=== PATIENT | female | born 2000 | race Caucasian/White ===

== ENCOUNTER 2023-03-01 16:27 | Outpatient (RCR) | payer OTHER, SELFPAY ==
[2023-03-01 16:39] LABS: Basophils Percent Auto 0.3 % (0.2-2.0); Eosinophils Absolute Auto 0.3 10^3/uL (0.0-0.7); Eosinophils Percent Auto 2.8 % (0.9-7.0); Hematocrit 39.7 % (36.0-48.0); Immature Granulocytes Abs Auto 0.03 10^3/uL (0.00-0.03); Immature Granulocytes Pct Auto 0.3 % (0.0-0.5); Lymphocytes Percent Auto 18.5 % (20.5-60.0); Mean Corpuscular HGB Conc 32.7 g/dL (29.9-35.2); Mean Corpuscular Volume 85.6 fL (81.0-99.0); Mean Platelet Volume 9.7 fL (9.5-13.5); Monocytes Absolute Auto 0.4 10^3/uL (0.3-0.8); Monocytes Percent Auto 3.7 % (1.7-12.0); Neutrophils Absolute Auto 8.1 10^3/uL (1.4-6.5); Neutrophils Percent Auto 74.4 % (43.0-75.0); Platelet Count 331 10^3/uL (150-450); Red Blood Count 4.64 10^6/uL (4.20-5.40); Red Cell Distribution Width 13.8 % (11.0-15.0); White Blood Count 10.9 10^3/uL (4.0-11.0)
[2023-03-01 16:50] LABS: Estimated Average Glucose 100 mg/dL; Glycohemoglobin A1C 5.1 % (4.5-6.2)
[2023-03-01 17:28] LABS: Free T4 0.77 ng/dL (0.76-1.46)
[2023-03-01 17:31] LABS: HCG Quantitative <1 mIU/mL
[2023-03-01 17:33] LABS: Thyroid Stimulating Hormone 0.662 uIU/mL (0.358-3.740)
[2023-03-03 07:11] LABS: Prolactin 5.4 ng/mL (4.8-23.3)
== END 2023-03-13 16:04 | disposition home or self-care (01) ==
LOC: LAB 16:27
PROVIDERS: Visit Provider Obstetrics & Gynecology
DX: N91.2 Amenorrhea, unspecified (principal); N92.6 Irregular menstruation, unspecified
CPT/HCPCS: 36415; 83036; 84146; 84439; 84443; 84702; 85025

== ENCOUNTER 2023-03-03 15:34 | Outpatient (OUT) | payer OTHER, SELFPAY ==
[2023-03-03 16:17] LABS: HCG Quantitative <1 mIU/mL
== END 2023-03-03 15:35 | disposition home or self-care (01) ==
PROVIDERS: Visit Provider Obstetrics & Gynecology
DX: N91.2 Amenorrhea, unspecified (principal); N92.6 Irregular menstruation, unspecified
CPT/HCPCS: 36415; 84702

== ENCOUNTER 2023-03-05 08:56 | Outpatient (OUT) | payer OTHER, SELFPAY ==
--- NOTE | 2023-03-05 10:04 | US_ITS ---
The [address] [address] Patient Name: KATHY MAJOR MRN: [id number] date: 2000 Sex: F Assigned Patient Location: Current Patient Location: [place] Accession/Order Number: [id number] Exam Date: 03/05/2023 10:03 Report Date: 03/05/2023 12:16 At the request of: RONA SALDANA Procedure: US pelvis w/ transvaginal EXAM: US pelvis w/ transvaginal HISTORY: AMENORRHEA COMPARISON: None. TECHNIQUE: Real-time transabdominal and transvaginal imaging of the pelvis. Findings: The uterus measures 8.9 x 4.6 x 5.1 cm and is retroverted. It demonstrates unremarkable parenchymal echotexture. No focal intrauterine mass. The endometrium is 1.3 cm thick in a relatively homogeneous. No fluid within the endometrial canal. The right and left ovaries measure 3.6 x 2.6 x 3.4 and 3.8 x 2.6 x 3.6 cm. There are follicles bilaterally. Blood flow is identified bilaterally. No adnexal mass. Small amount of free fluid within the pelvis. IMPRESSION: 1. Small amount of free fluid within the pelvis. Otherwise, unremarkable sonographic appearance of the pelvis for age. *In a premenopausal patient, the normal endometrial thickness measures up to 8 mm in the proliferative phase and 15 mm in the secretory phase of the menstrual cycle. In a symptomatic postmenopausal patient, a normal endometrial thickness measures up to 4 mm. In an asymptomatic postmenopausal patient, measurement of up to 8 mm may be normal). *In a premenopausal patient, the normal endometrial thickness measures up to 8 mm in the proliferative phase and 15 mm in the secretory phase of the menstrual cycle. In a symptomatic postmenopausal patient, a normal endometrial thickness measures up to 4 mm. In an asymptomatic postmenopausal patient, measurement of up to 8 mm may be normal). Electronically authenticated by: MEGHAN DAILY Date: 03/05/2023 12:16
== END 2023-03-05 08:57 | disposition home or self-care (01) ==
PROVIDERS: Visit Provider Obstetrics & Gynecology
DX: N91.2 Amenorrhea, unspecified (principal); N92.6 Irregular menstruation, unspecified
CPT/HCPCS: 76830; 76856

== ENCOUNTER 2023-08-12 11:10 | Emergency (ER) | payer OTHER, SELFPAY ==
[2023-08-12 11:17] VITALS: BP 124/89; PULSE 82; RESP 18; TEMP 36.7; O2SAT 99; BMI 17.0
--- NOTE | 2023-08-12 11:24 | ED.URI1 ---
HPI - URI/Sore Throat General Chief Complaint: Upper Respiratory Infection Stated Complaint: COUGH/FLU SYMPTOMS Time Seen by Provider: 08/12/23 11:18 History of Present Illness HPI Narrative: 23-year-old female presents for upper respiratory infection type symptoms. She's had cough and congestion and has been coughing up a small amount of green phlegm. She has had those for a week. No fever. a friend has influenza. She also has had gastrointestinal issues since and she seeing a gastrointestinal specialist about that issue and has had colonoscopy. She's had extensive workup. Related Data Previous Rx's Medication Instructions Recorded benzonatate 100 mg capsule 100 mg PO TID PRN cough #20 caps 08/12/23 loratadine 5 mg-pseudoephedrine ER 1 tab PO Q12H PRN nasal congestion 08/12/23 120 mg tablet,extended #20 tabs release,12hr (Claritin-D 12 Hour) ondansetron 4 mg disintegrating 4 mg PO Q6H PRN nausea and 08/12/23 tablet vomiting #20 tabs Allergies Allergy/AdvReac Type Severity Reaction Status Date / Time amoxicillin AdvReac Mild Agitated Verified 08/12/23 11:24 Review of Systems ROS Narrative A ten point review of systems is negative except as noted above. PFSH PFSH Social History Smoking status: Never smoker Exam Narrative Exam Narrative: Nurses note and vital signs reviewed and patient is not hypoxic. General: The patient appears well and in no apparent distress. Patient is resting comfortably on cart. Skin: Warm, dry, no pallor noted. There is no rash noted. Head: Normocephalic, atraumatic Eye: Normal conjunctiva, no drainage Ears, Nose, Mouth, and Throat: oral mucosa is moist. Nares patent. Mouth without vesicles. no pharyngeal erythema or exudate Cardiovascular: Regular Rate and Rhythm Respiratory: Patient is in no distress, no accessory muscle use, lungs are clear to auscultation, no wheezing, rales or rhonchi Back: non-tender GI: nontender Musculoskeletal: The patient has no evidence of calf tenderness, no pitting edema, symmetrical pulses noted bilaterally Neurological: A&O, normal speech Psychiatric: Cooperative Constitutional Vital Signs, click to edit/add: Last Vital Signs Temp 98.0 F 08/12/23 11:17 Pulse 82 08/12/23 11:17 Resp 18 08/12/23 11:17 BP 124/89 08/12/23 11:17 Pulse Ox 99 08/12/23 11:17 O2 Del Method Room Air 08/12/23 11:17 Course Vital Signs Vital signs: Vital Signs Temperature 98.0 F 08/12/23 11:17 Pulse Rate 82 08/12/23 11:17 Respiratory Rate 18 08/12/23 11:17 Blood Pressure 124/89 08/12/23 11:17 Pulse Oximetry 99 08/12/23 11:17 Oxygen Delivery Method Room Air 08/12/23 11:17 Temperature 98.0 F 08/12/23 11:17 Pulse Rate 82 08/12/23 11:17 Respiratory Rate 18 08/12/23 11:17 Blood Pressure 124/89 08/12/23 11:17 Pulse Oximetry 99 08/12/23 11:17 Oxygen Delivery Method Room Air 08/12/23 11:17 MDM - URI/Sore Throat MDM Narrative Medical decision making narrative: Her workup is negative here. My clinical impression is that she has a viral upper respiratory infection. Antibiotic not indicated and she will be treated symptomatically. Treatment diagnosis and follow-up were discussed with the patient and her mother. Differential Diagnosis Differential diagnosis: Likely upper respiratory infection, viral infection and other (Covid, influenza) Lab Data Attestation: I reviewed the patient's lab results. Labs: Lab Results 08/12/23 08/12/23 Range/Units 11:25 11:35 Urine HCG, Qual Negative (NEGATIVE) SARS-CoV-2 (PCR) Negative (NEGATIVE) Influenza Type A Ag Negative Influenza Type B Ag Negative Discharge Plan Discharge Chief Complaint: Upper Respiratory Infection Clinical Impression: Viral URI Patient Disposition: Home, Self-Care Time of Disposition Decision: 12:26 Condition: Good Mode of Transportation: Private Vehicle Prescriptions / Home Meds: New benzonatate 100 mg capsule 100 mg PO TID PRN (Reason: cough) Qty: 20 0RF Claritin-D 12 Hour 5-120 mg tablet extended release 12 hr 1 tab PO Q12H PRN (Reason: nasal congestion) Qty: 20 0RF ondansetron 4 mg tablet,disintegrating 4 mg PO Q6H PRN (Reason: nausea and vomiting) Qty: 20 0RF Instructions: Upper Respiratory Infection (ED) Stand Alone Forms: Portal Instructions Referrals: Geena CERVANTES [Primary Care Provider] - 1 week
[2023-08-12 11:57] LABS: HCG Qualitative Urine* NEGATIVE (NEGATIVE)
[2023-08-12 12:19] LABS: Influenza Virus A Antigen Negative; Influenza Virus B Antigen Negative; Internal Control Within Normal Limits; SARS-CoV-2 Ag NEGATIVE (NEGATIVE)
[2023-08-13 16:17] LABS: SARS-CoV-2 NAA INCONCLUSIVE (NOT DETECTE)
== END 2023-08-12 12:36 | disposition home or self-care (01) ==
PROVIDERS: Emergency Provider Emergency Medicine; PCP Family Medicine
DX: J06.9 Acute upper respiratory infection, unspecified (principal)
CPT/HCPCS: 84703; 87635; 87804; 87811; 99283

== ENCOUNTER 2023-08-21 10:34 | Emergency (ER) | payer OTHER, SELFPAY ==
[2023-08-21 10:37] VITALS: BP 110/65; PULSE 63; RESP 14; TEMP 36.6; O2SAT 100; BMI 17.0
--- NOTE | 2023-08-21 10:59 | ED.GENADUL1 ---
HPI - General Adult General Chief complaint: Upper Respiratory Infection Stated complaint: CONGESTION Time Seen by Provider: 08/21/23 10:59 Source: patient Mode of arrival: walk-in History of Present Illness HPI narrative: Patient is a 23-year-old female who is presenting to the ER today with chief complaint of cough, congestion, runny nose, sore throat that has been ongoing for the past 3 weeks. Patient is using Tessalon Perles, she states that Mucinex makes her feel funny. Patient has not seen a PCP for this, patient was in the ER on August 12. Patient did not go to work today. Patient's boyfriend is at bedside. Patient is a smoker. No recent traveling. No abdominal pain, nausea or vomiting. No diarrhea. No other acute complaints. Patient has no rash. No headache. No neck pain. Minimal sinus pressure. No chest pain or shortness of breath. Patient has been using her mom's albuterol inhaler intermittently to help with wheezing and congestion. Patient did not go to work today. No recent traveling. No bowel or bladder changes, no other acute complaints. Patient's boyfriend had a picture of her greenish sputum. All systems are negative except as noted/marked. All systems reviewed and otherwise negative. Nurses note and vital signs reviewed and patient is not hypoxic. General: The patient appears well and in no apparent distress. Patient is resting comfortably on cart. Patient is not toxic, lethargic, or listless Skin: Warm, dry, no pallor noted. There is no rash noted. No petechiae, purpura. Head: Normocephalic, atraumatic; minimal tenderness to palpation to bilateral frontal and maxillary sinus. Eye: Normal conjunctiva, no drainage, EOMI. PERRL Ears, Nose, Mouth, and Throat: oral mucosa is moist. Bilateral TM shows no erythema, perforation or bulging. Clear drainage noted to the posterior pharynx, cobblestoning noted. Nares patent. Mouth without vesicles. Cardiovascular: Regular Rate and Rhythm, no murmur, gallop, rub Respiratory: Patient is in no distress, no accessory muscle use, lungs are clear to auscultation, no wheezing, rales or rhonchi Back: non-tender, no CVA tenderness bilaterally to percussion. No CT LS midline pain GI: no tenderness to palpation, Musculoskeletal: Patient has full range of motion of all of the extremities, no motor, sensory, or focal neurological deficits Neurological: A&O x4, normal speech Psychiatric: Cooperative Related Data Previous Rx's Medication Instructions Recorded benzonatate 100 mg capsule 100 mg PO TID PRN cough #20 caps 08/12/23 ondansetron 4 mg disintegrating 4 mg PO Q6H PRN nausea and 08/12/23 tablet vomiting #20 tabs albuterol sulfate 2.5 mg/3 mL 1.25 mg (1.5 mL) inhalation Q4H 08/21/23 (0.083 %) solution for nebulization PRN shortness of breath or wheezing #90 mL doxycycline hyclate 100 mg tablet 100 mg PO BID 10 days #20 tabs 08/21/23 Allergies Allergy/AdvReac Type Severity Reaction Status Date / Time amoxicillin AdvReac Mild Agitated Verified 08/12/23 11:24 PFSH PFSH Social History Smoking status: Never smoker Exam Constitutional Vital Signs, click to edit/add: Last Vital Signs Temp 97.8 F 08/21/23 10:37 Pulse 63 08/21/23 10:37 Resp 14 08/21/23 10:37 BP 110/65 08/21/23 10:37 Pulse Ox 100 08/21/23 10:37 O2 Del Method Room Air 08/21/23 10:37 Course Vital Signs Vital signs: Vital Signs Temperature 97.8 F 08/21/23 10:37 Pulse Rate 63 08/21/23 10:37 Respiratory Rate 14 08/21/23 10:37 Blood Pressure 110/65 08/21/23 10:37 Pulse Oximetry 100 08/21/23 10:37 Oxygen Delivery Method Room Air 08/21/23 10:37 Temperature 97.8 F 08/21/23 10:37 Pulse Rate 63 08/21/23 10:37 Respiratory Rate 14 08/21/23 10:37 Blood Pressure 110/65 08/21/23 10:37 Pulse Oximetry 100 08/21/23 10:37 Oxygen Delivery Method Room Air 08/21/23 10:37 Medical Decision Making MDM Narrative Medical decision making narrative: Patient has had upper respiratory infection/bronchitis for the past 3 weeks. Patient is a smoker. Patient has not been doing any antihistamines or Flonase. Patient will start using Claritin or Zyrtec. Patient will start using antihistamines and Flonase. Patient will follow-up with PCP and establish PCP as well. Education done at bedside in treating symptoms and on discharge paperwork. Work note given. Discharge Plan Discharge Chief Complaint: Upper Respiratory Infection Clinical Impression: Bronchitis, Upper respiratory infection, Tobacco abuse Patient Disposition: Home, Self-Care Time of Disposition Decision: 11:12 Condition: Fair Prescriptions / Home Meds: New albuterol sulfate 2.5 mg /3 mL (0.083 %) solution for nebulization 1.25 mg inhalation Q4H PRN (Reason: shortness of breath or wheezing) Qty: 90 0RF doxycycline hyclate 100 mg tablet 100 mg PO BID 10 Days Qty: 20 0RF No Action benzonatate 100 mg capsule 100 mg PO TID PRN (Reason: cough) Qty: 20 0RF ondansetron 4 mg tablet,disintegrating 4 mg PO Q6H PRN (Reason: nausea and vomiting) Qty: 20 0RF Instructions: How to Stop Smoking (ED), How to Use a Metered-Dose Inhaler (DC), Acute Bronchitis (ED), How Your Lungs Work (ED) Additional Instructions: Use Claritin or Zyrtec daily Use albuterol every 4 hours while awake to help with cough, wheezing, and congestion Use Mucinex as well. Start using Flonase daily Antibiotic is started secondary to symptoms going on for 3 weeks Follow-up and establish PCP for further evaluation so that you are seen in the same physician every time you have illness Work note given Stand Alone Forms: Work/School Release, Portal Instructions Referrals: Geena CERVANTES [Primary Care Provider] - 1 week
== END 2023-08-21 11:31 | disposition home or self-care (01) ==
PROVIDERS: Emergency Provider Emergency Medicine; PCP Family Medicine
DX: J40 Bronchitis, not specified as acute or chronic (principal); J06.9 Acute upper respiratory infection, unspecified; F17.210 Nicotine dependence, cigarettes, uncomplicated
CPT/HCPCS: 99283

== ENCOUNTER 2024-04-05 16:49 | Emergency (ER) | payer OTHER, SELFPAY ==
[2024-04-05 16:51] VITALS: BP 127/84; PULSE 96; TEMP 36.9; O2SAT 100; BMI 18.9
--- NOTE | 2024-04-05 16:56 | CT_ITS ---
The [address] [address] Patient Name: KATHY MAJOR MRN: [id number] date: 2000 Sex: F Assigned Patient Location: ER Current Patient Location: ER Accession/Order Number: [id number] Exam Date: 04/05/2024 17:25 Report Date: 04/05/2024 18:12 At the request of: MCKAYLA SANDHU Procedure: CT head/brain wo con EXAM: CT head/brain wo con, CT cervical spine wo con HISTORY: headache COMPARISON: None. TECHNIQUE: HEAD FINDINGS: The brain parenchyma density is unremarkable. There is no acute intracranial hemorrhage, extra axial fluid collection, midline shift, or mass effect. There is no evidence to suggest acute infarction. The ventricles, sulci, and cisterns are normal in size and configuration, without evidence of hydrocephalus or herniation. The partially visualized paranasal sinuses and mastoid air cells are well pneumatized and clear. There are no suspicious osseous lytic or sclerotic lesions. There are no acute fractures. The extracranial soft tissues are unremarkable. Cervical spine FINDINGS: No fracture or dislocation is shown. The prevertebral soft tissue space appears normal. Visualized neck shows no adenopathy. Visualized lung apices are clear. CT/CT head/brain wo con IMPRESSION: No acute intracranial process. No acute osseous abnormality of the cervical spine. Electronically authenticated by: TIERA BURKETT Date: 04/05/2024 18:12
--- NOTE | 2024-04-05 16:56 | CT_ITS ---
The [place] [id number] Patient Name: KATHY MAJOR MRN: [id number] date: 2000 Sex: F Assigned Patient Location: ER Current Patient Location: ER Accession/Order Number: [id number] Exam Date: 04/05/2024 17:25 Report Date: 04/05/2024 18:12 At the request of: MCKAYLA SANDHU Procedure: CT cervical spine wo con EXAM: CT head/brain wo con, CT cervical spine wo con HISTORY: headache COMPARISON: None. TECHNIQUE: HEAD FINDINGS: The brain parenchyma density is unremarkable. There is no acute intracranial hemorrhage, extra axial fluid collection, midline shift, or mass effect. There is no evidence to suggest acute infarction. The ventricles, sulci, and cisterns are normal in size and configuration, without evidence of hydrocephalus or herniation. The partially visualized paranasal sinuses and mastoid air cells are well pneumatized and clear. There are no suspicious osseous lytic or sclerotic lesions. There are no acute fractures. The extracranial soft tissues are unremarkable. Cervical spine FINDINGS: No fracture or dislocation is shown. The prevertebral soft tissue space appears normal. Visualized neck shows no adenopathy. Visualized lung apices are clear. CT/CT cervical spine wo con IMPRESSION: No acute intracranial process. No acute osseous abnormality of the cervical spine. Electronically authenticated by: TIERA BURKETT Date: 04/05/2024 18:12
--- OUTSIDE RECORDS SUMMARY | 2024-04-05 16:58 | XMS_ITS | CCD ---
Author Organization [facility] Care Team Providers Care Immigration Paralegal Name Role Phone SHANA, DR REA Consulting Unavailable KALOTTIE, DR Geena FIELDS Primary Care Unavailable SHANA, DR REA Attending Unavailable SHANA, DR REA Admitting Unavailable SHANA, DR REA Consulting Unavailable REQUEST, DR NORIEGA LISTED Primary Care Unavaila ble SHANA, DR REA Attending Unavailable SHANA, DR REA Admitting Unavailable SHANA, DR REA Consulting Unavailable REQUEST, DR LEANN LISTED Primary Care Unavaila ble SHANA, DR REA Attending Unavailable SHANA, DR REA Admitting Unavailable SHANA, DR REA Consulting Unavailable REQUEST, DR NORIEGA LISTED Primary Care Unavaila ble SHANA, DR REA Attending Unavailable SHANA, DR REA Admitting Unavailable SHANA, DR REA Consulting Unavailable KAFTAN, DR Geena FIELDS Referring Unavailable REQUEST, DR NORIEGA LISTED Primary Care Unavaila ble SHANA, DR REA Attending Unavailable SHANA, DR REA Admitting Unavailable ZIEBER, DR MARTIN Artis Consulting Unavailable SHANA, DR REA Consulting Unavailable REQUEST, DR NORIEGA LISTED Primary Care Unavaila ble SHANA, DR REA Attending Unavailable SHANA, DR REA Admitting Unavailable WEST, DR YENNI Calderon Consulting Unavailable REQUEST, DR NORIEGA LISTED Primary Care Unavaila ble SHANA, DR REA Attending Unavailable SHANA, DR REA Admitting Unavailable SHANA, DR REA Consulting Unavailable SHANA, DR REA Consulting Unavailable KAFTAN, DR Geena FIELDS Primary Care Unavailable SHANA, DR REA Attending Unavailable SHANA, DR REA Admitting Unavailable ZIEBER, DR MARTIN Artis Consulting Unavailable SHANA, DR REA Consulting Unavailable KAFTAN, DR Geena FIELDS Primary Care Unavailable SHANA, DR REA Attending Unavailable SHANA, DR REA Admitting Unavailable KARASIK, DR PIZARRO Consulting Unavailable SHANA, DR REA Attending Unavailable SHANA, DR REA Admitting Unavailable REQUEST, DR NONE LISTED Primary Care Unavaila ble SHANA, DR REA Consulting Unavailable MORGOS, SUZY Consulting Unavailable SHANA, DR REA Procedure Practitioner Unavailab le SHANA, DR REA Consulting Unavailable REQUEST, DR NONE LISTED Primary Care Unavaila ble SHANA, DR REA Attending Unavailable SHANA, DR REA Admitting Unavailable Gudimella, Kayy Attending Unavailable DO Divina Araya Primary Care Provider Gerson, INCIDENT ENGINEER-BC Vivian Ayala Emergency Provider [phone] Asacher, Imad Unavailable DO Divina Araya Primary Care Provider [phone] MD Jordi Seals Attending Provider [phone] DO Divina Araya Primary Care Provider [phone] MD Jordi Seals Attending Provider [phone] DO Divina Araya Primary Care Provider MD Jordi Seals Attending Provider [phone] VANESSA Roberson Emergency Provider DO Charlie Wells Emergency Provider Vivian Nieto Admitting Unavailable Vivian Nieto Attending Unavailable Divina Araya Primary Care Unavailable Divina Araya Primary Care Unavailable Charlie Wells Admitting Unavailable Charlie Wells Attending Unavailable Divina Araya Primary Care Unavailable Ashley Roberson Admitting Unavailable Ashley Roberson Attending Unavailable Asaad, Imad Admitting Unavailable Lavellad, Imad Attending Unavailable Divina Araya Primary Care Unavailable Asaad, Imad Admitting Unavailable Divina Araya Primary Care Unavailable Asaad, Imad Attending Unavailable Asaad, Imad Attending Unavailable Asaad, Imad Admitting Unavailable Divina Araya Primary Care Unavailable Asaad, Imad Admitting Unavailable Asaad, Imad Attending Unavailable Divina Araya Primary Care Unavailable Divina Araya Primary Care Unavailable Randal Celeste Admitting Unavailable Randal Celeste Attending Unavailable CITLALI PATRICIA Attending Unavailable ZACHARY ARAYA Attending Unavailable Allergies Allergy Classification Reported Allergen(s) Allergy Type Date of Onset Reaction(s) Facility (1 source) Amoxicillin Drug Allergy 4 [facility] Repository (3 sources) Milk Drug allergy (disorder) 4 Unknown [facility] Repository (3 sources) Amoxicillin; Translations: [amoxicillin] Drug Allergy Weal (disorder) [facility] Care (1 source) Amoxicillin Drug Allergy 4 [facility] Repository (1 source) Milk Drug allergy (disorder) 3 [facility] Repository Medications Current Medications Medication Drug Class(es) Dates Sig (Normalized) Sig (Original) albuterol 0.83 mg/ml inhalation solution (1 source) beta2-Adrenergic Agonist Start: 10-13-2023 Albuterol Sulfate Active MG October 13, 2023 12:00am cyclobenzaprine hydrochloride 10 mg oral tablet (1 source) Muscle Relaxant Start: 10-13-2023 take 10 mg by mouth three times daily Cyclobenzaprine Active 10 MG PO Three times daily October 13, 2023 12:00am diclofenac sodium 0.01 mg/mg topical gel (1 source) Nonsteroidal Anti-inflammatory Drug Start: 10-13-2023 Diclofenac Sodium (Voltaren Arthritis Pain) 1 % gel Active 2 GM TOPICAL Four times daily October 13, 2023 12:00am apply to single elbow, wrist or hand; for hand includes palm/fingers/back of hand Timnath (No Known Home Meds) (4 sources) Start: 01-18-2023 Timnath (No Known Home Meds) Active January 17, 2023 11:00pm Start: 01-18-2023 Timnath (No Kn own Home Meds) Active January 18, 2023 12:00am ondansetron 4 mg disintegrating oral tablet (9 sources) Serotonin-3 Receptor Antagonist Start: 09-28-2023 take 4 mg by mouth every eight hours Ondansetron Active 4 MG PO Q8H 9 3 September 28, 2023 12:00am Start: 12-29-2022 End: 01-18-2023 take 4 mg by mouth every eight hours Ondansetron Discontinued 4 MG PO Q8H December 28, 2022 11:00pm January 18, 2023 8:58am polyethylene glycol 3350 [id number] mg / potassium chloride 2970 mg / sodium bicarbonate 6740 mg / sodium chloride 5860 mg / sodium sulfate 16606 mg powder for oral solution (2 sources) Osmotic Laxative Start: 04-25-2023 take 236 g by mouth once Golytely 236 GM as directed Orally once for 1 days Apr, Active Completed/Discontinued Medications Medication Drug Class(es) Dates Sig (Normalized) Sig (Original) citalopram 10 mg oral tablet (7 sources) Serotonin Reuptake Inhibitor Start: 12-29-2022 End: 01-18-2023 take 10 mg by mouth once daily Citalopram Discontinued 10 MG PO Daily December 28, 2022 11:00pm January 18, 2023 8:58am dicyclomine hydrochloride 20 mg oral tablet (7 sources) Anticholinergic Start: 12-29-2022 End: 01-18-2023 take 20 mg by mouth three times daily Dicyclomine Discontinued 20 MG PO Three times daily December 28, 2022 11:00pm January 18, 2023 8:58am doxycycline hyclate 100 mg oral tablet (2 sources) Tetracycline-class Drug Start: 09-28-2023 End: 10-13-2023 take 100 mg by mouth twice daily Doxycycline Hyclate Discontinued 100 MG PO Twice daily 28 06September 28, 2023 12:00am October 13, 2023 1:14pm Norethindrone-E.Est radiol-Iron (7 sources) Estrogen Start: 02-09-2018 End: 10-12-2020 Norethindrone-E.E stradiol-Iron (09/28 (28)) 1 mg-20 mcg (21)/75 mg (7) tablet Discontinued 1 TAB PO Daily February 08, 2018 11:00pm October 12, 2020 5:28pm Start: 02-09-2018 End: 10-12-2020 Norethindrone-E.Estradiol-Ir on (09/28 (28)) 1 mg-20 mcg (21)/75 mg (7) tablet Discontinued 1 TAB PO Daily February 09, 2018 12:00am October 12, 2020 6:28pm ibuprofen 400 mg oral tablet (7 sources) Nonsteroidal Anti-inflammatory Drug Start: 02-09-2018 End: 10-12-2020 take 400 mg by mouth three times daily Ibuprofen Discontinued 400 MG PO Three times daily February 08, 2018 11:00pm October 12, 2020 5:28pm metroNIDAZOLE 500 mg oral tablet (7 sources) Nitroimidazole Antimicrobial Start: 07-29-2020 End: 10-12-2020 take 500 mg by mouth three times daily Metronidazole Discontinued 500 MG PO Three times daily July 29, 2020 12:00am October 12, 2020 5:28pm norethindrone 0.35 mg oral tablet (8 sources) Start: 12-29-2022 End: 01-18-2023 take 1 tablet by mouth once daily Norethindrone (Contraceptive) (Jencycla) 0.35 mg tablet Discontinued 0.35 MG PO Daily December 28, 2022 11:00pm January 18, 2023 8:58am Start: 11-06-2022 Jencycla 0.35 mg oral tablet Refills(s) 0 Start Date: 11/06/22 Status: Ordered predniSONE 20 mg oral tablet (2 sources) Start: 09-28-2023 End: 10-13-2023 take 40 mg by mouth once daily Prednisone Discontinued 40 MG PO Daily 02 09September 28, 2023 12:00am October 13, 2023 1:14pm Prenat.Vits,Maximo,Min-Iro n-Folic ( Vitamin) Tablet (7 sources) Start: 01-29-2021 End: 12-29-2022 take 1 tablet by mouth once daily Prenat.Vits,Maximo,Min-Iron -Folic ( Vitamin) Tablet Discontinued 1 TAB PO Daily January 28, 2021 11:00pm December 29, 2022 11:53am Start: 01-29-2021 End: 12-29-2022 take 1 tablet by mouth once daily Prenat.Vits,Maximo,Kxl-Cogn-Pmrnb ( Vitamin) Tablet Discontinued 1 TAB PO Daily January 29, 2021 12:00am December 29, 2022 12:53pm Problems Active Problems Problem Classification Problem Date Documented Da te Episodic/Chronic Abdominal pain (17 sources) Abdominal pain; Translations: [Unspecified abdominal pain] Onset: 01-18-2023 12-29-2022 Episodic Esophageal disorders (1 source) Gastro-esophageal reflux disease without esophagitis; Translations: [GERD WITHOUT ESOPHAGITIS] Onset: 08-06-2022 Chronic Fluid and electrolyte disorders (2 sources) Dehydration; Translations: [Dehydration] 09-28-2023 Episodic Hemorrhage during ; abruptio placenta; placenta previa (7 sources) Threatened miscarriage; Translations: [Threatened ] 10-12-2020 Episodic Menstrual disorders (11 sources) Irregular menstruation, unspecified; Translations: [Dysmenorrhea] Onset: 01-26-2022 Chronic Nonspecific chest pain (8 sources) Atypical chest pain; Translations: [Other chest pain] 01-02-2022 Episodic OB-related trauma to perineum and vulva (1 source) Second degree perineal laceration during delivery; Translations: [SECOND DEG PERINEAL LAC DUR DELIV] Onset: 08-06-2022 Episodic Other acquired deformities (1 source) Scoliosis, unspecified; Translations: [SCOLIOSIS UNSPECIFIED] Onset: 08-06-2022 Chronic Other complications of ; puerperium affecting management of mother (1 source) Streptococcus B carrier state complicating childbirth; Translations: [STREP B SOTELO STATE COMP CHILDBIRTH] Onset: 08-06-2022 Episodic Other complications of ; puerperium affecting management of mother (1 source) Diseases of the digestive system complicating childbirth; Translations: [DZ DIGESTIVE SYSTEM COMP CHILDBIRTH] Onset: 08-06-2022 Episodic Other complications of (4 sources) Maternal care for other known or suspected poor growth, third trimester, not applicable or unspecified; Translations: [MAT CARE OTH AZ FTL GRTH 3RD TM UNS] Onset: 06-23-2022 Episodic Other complications of (4 sources) Other specified related conditions, third trimester; Translations: [OTH SPEC PREG RELATED COND 3RD TRI] Onset: 07-04-2022 Episodic Other female genital disorders (6 sources) Abnormal vaginal bleeding; Translations: [Abnormal uterine and vaginal bleeding, unspecified] 01-18-2023 Chronic Other gastrointestinal disorders (2 sources) Irritable bowel syndrome with diarrhea; Translations: [Irritable bowel syndrome with diarrhea] Chronic Other gastrointestinal disorders (9 sources) Diarrhea; Translations: [Diarrhea, unspecified] 12-29-2022 Episodic Other gastrointestinal disorders (2 sources) Altered bowel function; Translations: [Change in bowel habit] Episodic Other gastrointestinal disorders (2 sources) Diarrhea, unspecified Episodic Other lower respiratory disease (1 source) Shortness of breath; Translations: [Shortness of breath] Onset: 10-13-2023 Episodic Other nutritional; endocrine; and metabolic disorders (3 sources) Abnormal weight loss; Translations: [Abnormal weight loss] Onset: 07-27-2023 Episodic Other nutritional; endocrine; and metabolic disorders (1 source) Weight loss; Translations: [Abnormal weight loss] Episodic Other and delivery including normal (10 sources) Single live ; Translations: [Encounter for supervision of other normal , third trimester] Onset: 12-27-2021 Episodic Other screening for suspected conditions (not mental disorders or infectious disease) (14 sources) Encounter for screening for diabetes mellitus; Translations: [Encounter for other specified screening] Onset: 01-26-2022 Episodic Pneumonia (except that caused by tuberculosis or sexually transmitted disease) (2 sources) Pneumonia; Translations: [Pneumonia, unspecified organism] 09-28-2023 Episodic Residual codes; unclassified (1 source) 38 weeks gestation of ; Translations: [38 WEEKS GESTATION OF ] Onset: 08-06-2022 Episodic Residual codes; unclassified (1 source) 35 weeks gestation of ; Translations: [35 WEEKS GESTATION OF ] Onset: 07-08-2022 Episodic Residual codes; unclassified (1 source) 33 weeks gestation of ; Translations: [33 WEEKS GESTATION OF ] Onset: 06-23-2022 Episodic Residual codes; unclassified (7 sources) History of headache; Translations: [Personal history of other specified conditions] 07-29-2020 Episodic Substance-related disorders (2 sources) Drug use complicating childbirth; Translations: [Cannabis use, unspecified, uncomplicated] Onset: 08-06-2022 Episodic Syncope (14 sources) Vasovagal syncope; Translations: [Syncope and collapse] 02-08-2022 Episodic Unclassified (1 source) CONTACT W/AND (SUSP) EXPOS COVID-19; Translations: [CONTACT W/AND (SUSP) EXPOS COVID-19] Onset: 08-06-2022 Unclassified (1 source) Diarrhea, unspecified; Translations: [Diarrhea, unspecified] Onset: 12-29-2022 Past or Other Problems Problem Classification Problem Date Documented Date Episodic/Chronic Immunizations and screening for infectious disease (1 source) Contact with and (suspected) exposure to infections with a predominantly sexual mode of transmission; Translations: [CONTCT W EXPOS INFECT SEXUAL TRNSMS] Onset: 01-31-2022 Episodic Other complications of (4 sources) Other specified related conditions, second trimester; Translations: [OTH SPEC PREG RELATED COND 2ND TRI] Onset: 04-24-2022 Episodic Other female genital disorders (1 source) Other specified noninflammatory disorders of vagina; Translations: [Other specified noninflammatory disorders of vagina] Onset: 01-18-2023 Episodic Residual codes; unclassified (1 source) 25 weeks gestation of ; Translations: [25 WEEKS GESTATION OF ] Onset: 04-26-2022 Episodic Results Test Name Value Interpretation Reference Range Facility B-Type Natriuretic Peptideon 10-13-2023 Natriuretic peptide B (Bld) [Mass/Vol] 30.0 pg/mL Normal 5-100 [facility] Comment on above: Result Comment: PERF ORMED BY: [place] [address] PATHOLOGIST [employer]ED [employer] EMBOSSING PRESS OPERATOR KIERSTEN BYNUM M.D. Performed By: #### H S TROP, BNP, CK #### [facility] [address] Basic Metabolic Panelon Anion gap [Moles/Vol] 7.1 mmol/L Normal 6.0-15.0 [facility] Comment on above: Performed By: #### C BC, BMP, DDIMER, PT, PTT ####[facility] Calcium [Mass/Vol] 9.0 mg/dL Normal 8.6-10.3 [facility] Comment on above: Performed By: #### C BC, BMP, DDIMER, PT, PTT ####[place] [id number] Chloride [Moles/Vol] 107 mmol/L Normal 98-107 [facility] Comment on above: Performed By: #### C BC, BMP, DDIMER, PT, PTT ####[facility] [place] [address] [facility] CO2 [Moles/Vol] 28.6 mmol/L Normal 21.0-31.0 [facility] Comment on above: Performed By: #### C BC, BMP, DDIMER, PT, PTT ####[facility] [place] [address] [facility] Creatinine [Mass/Vol] 0.51 mg/dL Low 0.60-1.20 [facility] Comment on above: Performed By: #### C BC, BMP, DDIMER, PT, PTT ####[place] [address] [place] [address] [place] Creatinine Clr Calc Pharmacy 118.45 [facility] Comment on above: Result Comment: PERF ORMED BY: [facility] [address] [place] [address] PATHOLOGIST [employer] EMBOSSING PRESS OPERATOR KIERSTEN BYNUM M.D. Performed By: #### C BC, BMP, DDIMER, PT, PTT ####[place] [address] [place] [phone] [place] GFR/1.73 sq M.predicted MDRD (S/P/Bld) [Vol rate/Area] mL/min/{1.73_m2} [facility] Comment on above: Performed By: #### C BC, BMP, DDIMER, PT, PTT ####[place] [address] [place] [phone] [facility] Glucose [Mass/Vol] 80 mg/dL Normal 70-100 [facility] Comment on above: Result Comment: [place] Glucose Reference Range is dependent on time and content of last meal. Glucose of more than 200 mg/dL in a nonstressed, ambulatory subject supports the diagnosis of Diabetes Mellitus. ADA recommended reference range Performed By: #### C BC, BMP, DDIMER, PT, PTT ####[facility] [place] [address] [place] Potassium [Moles/Vol] 3.7 mmol/L Normal 3.5-5.1 [facility] Comment on above: Performed By: #### C BC, BMP, DDIMER, PT, PTT ####[facility] [address] [place] [address] [facility] Sodium [Moles/Vol] 139 mmol/L Normal 136-145 [facility] Comment on above: Performed By: #### C BC, BMP, DDIMER, PT, PTT ####[facility] [address] [place] [address] [facility] Urea nitrogen [Mass/Vol] 10 mg/dL Normal 7-25 [facility] Comment on above: Performed By: #### C BC, BMP, DDIMER, PT, PTT ####[facility] [address] [place] [address] [facility] Basophils Auto (Bld) [#/Vol] Ordered By: Charlie Wells on 10-13-2023 Basophils (Bld) [#/Vol] 0.0 10*3/uL 0.0-0.2 [facility] Basophils/100 WBC Auto (Bld) Ordered By: Charlie Wells on 10-13-2023 Basophils/100 WBC (Bld) 0.6 % . F [facility] Calcium [Mass/volume] in Ser um or PlasmaOrdered By: Charlie Wells on 10-13-2023 Calcium [Mass/Vol] 9.0 mg/dL 8.6-10.3 [facility] Carbon dioxide, total [Moles /volume] in Serum or PlasmaOrdered By: Charlie Wells on 10-13-2023 CO2 [Moles/Vol] 28.6 mmol/L 21.0-31.0 [facility] Chloride [Moles/volume] in S isabel or PlasmaOrdered By: Charlie Wells on 10-13-2023 Chloride [Moles/Vol] 107 mmol/L 98-107 [facility] Choriogonadotropin.beta subu nit [Units/volume] in Serum or PlasmaOrdered By: Charlie Wells on 10-13-2023 HCG.beta subunit Qn Negative [facility] Complete Blood Count Auto Di ffon 10-13-2023 Basophils (Bld) [#/Vol] 0.0 10*3/uL Normal 0.0-0.2 [facility] Comment on above: Result Comment: PERF ORMED BY: [facility] [address] [place] [address] PATHOLOGIST [employer] EMBOSSING PRESS OPERATOR KIERSTEN BYNUM M.D. Performed By: #### C BC, BMP, DDIMER, PT, PTT ####[place] [address] Basophils/100 WBC (Bld) 0.6 % Normal . [facility] Comment on above: Performed By: #### C BC, BMP, DDIMER, PT, PTT ####[address] Eosinophils (Bld) [#/Vol] 0.3 10*3/uL Normal 0.0-0.45 [facility] Comment on above: Performed By: #### C BC, BMP, DDIMER, PT, PTT ####[address] Eosinophils/100 WBC (Bld) 3.8 % Normal . [facility] Comment on above: Performed By: #### C BC, BMP, DDIMER, PT, PTT ####[address] Erythrocyte distribution width (RBC) [Ratio] 13.9 % Normal 11.9-15.3 [facility] Comment on above: Performed By: #### C BC, BMP, DDIMER, PT, PTT ####[address] Hematocrit (Bld) [Volume fraction] 34.6 % Normal 34.0-46.4 [facility] Comment on above: Performed By: #### C BC, BMP, DDIMER, PT, PTT ####[address] Hemoglobin (Bld) [Mass/Vol] 11.8 g/dL Normal 11.8-15.4 [facility] Comment on above: Performed By: #### C BC, BMP, DDIMER, PT, PTT ####[address] Lymphocytes (Bld) [#/Vol] 1.5 10*3/uL Normal 1.00-4.8 [facility] Comment on above: Performed By: #### C BC, BMP, DDIMER, PT, PTT ####[address] Lymphocytes/100 WBC (Bld) 21.5 % Normal . [facility] Comment on above: Performed By: #### C BC, BMP, DDIMER, PT, PTT ####[address] MCH (RBC) [Entitic mass] 29.3 pg Normal 24.7-34.3 [facility] Comment on above: Performed By: #### C BC, BMP, DDIMER, PT, PTT ####[address] MCV (RBC) [Entitic vol] 86.4 fL Normal 80-100 [facility] Comment on above: Performed By: #### C BC, BMP, DDIMER, PT, PTT ####[address] Mean Corpuscular HGB Conc 33.9 g/dL Normal 32.0-35.0 [facility] Comment on above: Performed By: #### C BC, BMP, DDIMER, PT, PTT ####[address] Monocytes (Bld) [#/Vol] 0.3 10*3/uL Normal 0.0-0.8 [facility] Comment on above: Performed By: #### C BC, BMP, DDIMER, PT, PTT ####[place] [id number] [facility] Monocytes/100 WBC (Bld) 16.72 % Normal 0.00-20.00 [facility] Comment on above: Performed By: #### C BC, BMP, DDIMER, PT, PTT ####[address] Monocytes/100 WBC (Bld) 4.7 % Normal . [facility] Comment on above: Performed By: #### C BC, BMP, DDIMER, PT, PTT ####[address] Neutrophils (Bld) [#/Vol] 4.8 10*3/uL Normal 1.8-7.7 [facility] Comment on above: Performed By: #### C BC, BMP, DDIMER, PT, PTT ####[place] [id number] [facility] Neutrophils/100 WBC (Bld) 69.4 % Normal . [facility] Comment on above: Performed By: #### C BC, BMP, DDIMER, PT, PTT ####[address] NRBC% 0.1 /100{WBC} Normal 0-0.5 [facility] Comment on above: Performed By: #### C BC, BMP, DDIMER, PT, PTT ####[place] [id number] [facility] Platelet mean volume (Bld) [Entitic vol] 7.7 fL Normal 6.3-10.7 [facility] Comment on above: Performed By: #### C BC, BMP, DDIMER, PT, PTT ####[place] [id number] [facility] Platelets (Bld) [#/Vol] 257 10*3/uL Normal 150-450 [facility] Comment on above: Performed By: #### C BC, BMP, DDIMER, PT, PTT ####[place] [id number] [facility] RBC (Bld) [#/Vol] 4.01 10*6/uL Normal 3.60-5.00 [facility] Comment on above: Performed By: #### C BC, BMP, DDIMER, PT, PTT ####[address] [address] [facility] WBC (Bld) [#/Vol] 6.9 10*3/uL Normal 3.8-11.6 [facility] Comment on above: Performed By: #### C BC, BMP, DDIMER, PT, PTT ####[facility] [address] [place] [phone] [facility] Creatine Kinaseon 10-13-2023 CK [Catalytic activity/Vol] 42 U/L Normal 30-223 [facility] Comment on above: Performed By: #### H S TROP, BNP, CK #### [facility] [address] Creatine kinase [Enzymatic a ctivity/volume] in Serum or PlasmaOrdered By: Charlie Wells on 10-13-2023 CK [Catalytic activity/Vol] 42 U/L 30-223 [facility] Creatinine [Mass/volume] in Serum or PlasmaOrdered By: Charlie Wells on 10-13-2023 Creatinine [Mass/Vol] 0.51 mg/dL 0.60-1.20 [facility] D-Dimer High Sensitivityon 0 10-13-2023 D-Dimer High Sensitivity < 200 Normal 0-243 [facility] Comment on above: Result Comment: The reference range for D-dimer is <243 ng/mL D-dimer units. D-dimer results must be used in conjunction with a clinical pretest probability (PTP) assessment model for deep vein thrombosis (DVT) and pulmonary embolism (PE). Results <230 ng/mL d-dimer units can be used as a negative predictor in patients with low or moderate probability for DVT/PE. Results above the exclusion threshold of 230 ng/ml D-dimer units for DVT/PE may indicate the need for further diagnostic testing. D-Dimer can be increased in hospitalized patients due to co-morbid conditions. A hematocrit value greater than 55% may lead to inaccurate results in coagulation testing. Patients having hematocrit values >55% require a special collection tube for coagulation studies. Please contact the laboratory at [phone] for redraw instructions. PERFORMED BY: [facility] [address] [place] [address] PATHOLOGIST [employer] EMBOSSING PRESS OPERATOR KIERSTEN BYNUM M.D. Performed By: #### C BC, BMP, DDIMER, PT, PTT ####[facility] [place] [id number] [facility] ECG 12 lead ECGon 10-13-2023 ECG 12 lead ECG [facility] [place] [address] [place] [address] Electrocardiograph Report Signed Patient: Dawn Cuellar MR#: [id number] : 2000 Acct:[id number] Age/Sex: 23 / F ADM Date: 10/13/23 Loc: ER Room: Type: [facility] ER Attending Dr: Ordering Provider: Charlie Wells DO Date of Service: 10/13/2312/31/1150 ECG/ECG 12 lead ECG: Shortness of Breath/Dyspnea Copies to: Test Reason : Blood Pressure : / mmHG Vent. Rate : 093 BPM Atrial Rate : 093 BPM P-R Int : 126 ms QRS Dur : 082 ms QT Int : 354 ms P-R-T Axes : 077 095 070 degrees QTc Int : 440 ms Normal sinus rhythm Rightward axis Borderline ECG When compared with ECG of 28-SEP-2023 13:24, Non-specific change in ST segment in Inferior leads T wave inversion no longer evident in Inferior leads T wave inversion no longer evident in Anterolateral leads QT has shortened Confirmed by CHARLIE WELLS DO ([id number]) on 10/13/2023 4:22:16 PM Referred By: Electronically Signed By:CHARLIE WELLS DO Transcribed By: MUS Signed By Charlie Wells DO 10/13 1622 Normal [facility] Eosinophils Auto (Bld) [#/Vo l]Ordered By: Charlie Wells on 10-13-2023 Eosinophils (Bld) [#/Vol] 0.3 10*3/uL 0.0-0.45 [facility] Eosinophils/100 WBC Auto (Bl d)Ordered By: Cahrlie Wells on 10-13-2023 Eosinophils/100 WBC (Bld) 3.8 % . [facility] Erythrocyte distribution wid th Auto (RBC) [Ratio]Ordered By: Charlie Wells on 10-13-2023 Erythrocyte distribution width (RBC) [Ratio] 13.9 % 11.9-15.3 [facility] Glucose [Mass/volume] in Ser um or PlasmaOrdered By: Charlie Wells on 10-13-2023 Glucose [Mass/Vol] 80 mg/dL 70-100 [facility] Comment on above: ADA recommended refe rence rangeRandom Glucose Reference Range is dependent on time and content of last meal. Glucose of more than 200 mg/dL in a nonstressed, ambulatory subject supports the diagnosis of Diabetes Mellitus. HCG,Qualitative Serumon HCG,Qualitative Serum Negative Normal [facility] Comment on above: Result Comment: PERF ORMED BY: [facility] [address] [place] [place] [id number] PATHOLOGIST [employer] EMBOSSING PRESS OPERATOR KIERSTEN BYNUM M.D. Performed By: #### H CGQUAL ####[facility] [id number] [place] [id number] [facility] Hematocrit Auto (Bld) [Volum e fraction]Ordered By: Charlie Wells on 10-13-2023 Hematocrit (Bld) [Volume fraction] 34.6 % 34.0-46.4 [facility] Hemoglobin [Mass/volume] in BloodOrdered By: Charlie Wells on 10-13-2023 Hemoglobin (Bld) [Mass/Vol] 11.8 g/dL 11.8-15.4 [facility] Leukocytes [#/volume] correc michael for nucleated erythrocytes in Blood by Automated counOrdered By: Charlie Wells on 10-13-2023 WBC corrected for nucl RBC Auto (Bld) [#/Vol] 6.9 10*3/uL 3.8-11.6 [facility] Lymphocytes Auto (Bld) [#/Vo l]Ordered By: Charlie Wells on 10-13-2023 Lymphocytes (Bld) [#/Vol] 1.5 10*3/uL 1.00-4.8 [facility] Lymphocytes/100 WBC Auto (Bl d)Ordered By: Charlie Wells on 10-13-2023 Lymphocytes/100 WBC (Bld) 21.5 % . [facility] MCH Auto (RBC) [Entitic mass ]Ordered By: Charlie Wells on 10-13-2023 MCH (RBC) [Entitic mass] 29.3 pg 24.7-34.3 [facility] MCHC Auto (RBC) [Mass/Vol]Or dered By: Charlie Wells on 10-13-2023 MCHC (RBC) [Mass/Vol] 33.9 g/dL 32.0-35.0 [facility] MCV Auto (RBC) [Entitic vol] Ordered By: Charlie Wells on 10-13-2023 MCV (RBC) [Entitic vol] 86.4 fL 80-100 [facility] Monocyte distribution width [Entitic volume] in Blood by AutomatedOrdered By: Charlie Wells on 10-13-2023 Monocyte distribution width Auto (Bld) [Entitic vol] 16.72 % 0.00-20.00 [facility] Monocytes Auto (Bld) [#/Vol] Ordered By: Charlie Wells on 10-13-2023 Monocytes (Bld) [#/Vol] 0.3 10*3/uL 0.0-0.8 [facility] Monocytes/100 WBC Auto (Bld) Ordered By: Charlie Wells on 10-13-2023 Monocytes/100 WBC (Bld) 4.7 % . [facility] Natriuretic peptide B [Mass/ Vol]Ordered By: Charlie Wells on 10-13-2023 Natriuretic peptide B (Bld) [Mass/Vol] 30.0 pg/mL 5-100 [facility] Neutrophils Auto (Bld) [#/Vo l]Ordered By: Charlie Wells on 10-13-2023 Neutrophils (Bld) [#/Vol] 4.8 10*3/uL 1.8-7.7 [facility] Neutrophils/100 WBC Auto (Bl d)Ordered By: Charlie Wells on 10-13-2023 Neutrophils/100 WBC (Bld) 69.4 % . [facility] No Panel InformationOrdered By: Charile Wells on 10-13-2023 Estimated GFR (CKD-EPI) > 60.0 mL/Min [facility] Creatinine Clearance (Chem 118.45 [facility] Nucleated erythrocytes [Pres ence] in Blood by Automated countOrdered By: Charlie Wells on 10-13-2023 Nucleated RBC Auto Ql (Bld) 0.1 /100{WBC} 0-0.5 [facility] Partial Thromboplastin Timeo n 10-13-2023 aPTT Coag (Bld) [Time] 28.9 s Normal 25.1-36.5 [facility] Comment on above: Result Comment: A he matocrit value greater than 55% may lead to inaccurate results in coagulation testing. Patients having hematocrit values >55% require a special collection tube for coagulation studies. Please contact the laboratory at [phone] for redraw instructions. Performed By: #### C BC, BMP, DDIMER, PT, PTT ####[facility] [id number] [place] [address] [facility] Platelet mean volume Auto (B ld) [Entitic vol]Ordered By: Charlie Wells on 10-13-2023 Platelet mean volume (Bld) [Entitic vol] 7.7 fL 6.3-10.7 [facility] Platelets Auto (Bld) [#/Vol] Ordered By: Charlie Wells on 10-13-2023 Platelets (Bld) [#/Vol] 257 10*3/uL 150-450 [facility] Potassium [Moles/volume] in Serum or PlasmaOrdered By: Charlie Wells on 10-13-2023 Potassium [Moles/Vol] 3.7 mmol/L 3.5-5.1 [facility] Prothrombin Time INRon 10-13 INR Coag (PPP) [Relative time] 1.0 {INR} Normal [facility] Comment on above: Result Comment: INR Therapeutic Range A) Pre- and Peroperative OAT started two weeks before surgery. NOT HIP SURGERY: 1.5 - 2.5 HIP SURGERY: 2 - 3 B) Primary and secondary prevention of venous THROMBOSIS: 2 - 3 C) Active venous thrombosis, pulmonary embolism and prevention of recurrent venous thrombosis: 2 - 3 D) Prevention of arterial thromboembolism including patients with mechanical heart valves: 3 - 4.5 Performed By: #### C BC, BMP, DDIMER, PT, PTT ####[facility] [id number] [place] [address] [facility] PT Coag (PPP) [Time] 11.3 s Normal 9.0-12.9 [facility] Comment on above: Result Comment: A he matocrit value greater than 55% may lead to inaccurate results in coagulation testing. Patients having hematocrit values >55% require a special collection tube for coagulation studies. Please contact the laboratory at [phone] for redraw instructions. Performed By: #### C BC, BMP, DDIMER, PT, PTT ####[facility] [id number] [place] [address] [facility] RBC Auto (Bld) [#/Vol]Ordere d By: Charlie Wells on 10-13-2023 RBC (Bld) [#/Vol] 4.01 10*6/uL 3.60-5.00 [facility] Serum or plasma anion gap de terminationOrdered By: Charlie Wells on 10-13-2023 Anion gap [Moles/Vol] 7.1 mmol/L 6.0-15.0 [facility] Sodium [Moles/volume] in Ser um or PlasmaOrdered By: Charlie Wells on 10-13-2023 Sodium [Moles/Vol] 139 mmol/L 136-145 [facility] Troponin I High Sensitivityo n 10-13-2023 Troponin I High Sensitivity < 2.3 Normal 0.0-15.0 [facility] Comment on above: Result Comment: PERF ORMED BY: [facility] [address] [place] [address] PATHOLOGIST [employer] EMB[employer]ING PRESS OPERATOR KIERSTEN BYNUM M.D. Performed By: #### H S TROP, BNP, CK ####[facility] [id number] [place] [address] [facility] Troponin I.cardiac [Mass/vol ume] in Serum or Plasma by Detection limit <= 0.01 ng/Ordered By: Charlie Wells on 10-13-2023 Troponin I.cardiac DL <= 0.01 ng/mL [Mass/Vol] < 2.3 pg/mL 0.0-15.0 [facility] Urea nitrogen [Mass/volume] in Serum or PlasmaOrdered By: Charlie Wells on 10-13-2023 Urea nitrogen [Mass/Vol] 10 mg/dL 7-25 [facility] WBC Auto (Bld) [#/Vol]Ordere d By: Charlie Wells on 10-13-2023 WBC (Bld) [#/Vol] 6.9 10*3/uL 3.8-11.6 [facility] XR chest 2V*on 10-13-2023 XR chest 2V* [facility] [place] [address] [place] [address] XRay Report Signed Patient: Dawn Cuellar MR#: [id number] : 2000 Acct:[id number] Age/Sex: 23 / F ADM Date: 10/13/23 Loc: ER Room: Type: [facility] ER Attending Dr: Copies to: Charlie Wells DO Ordering Provider: Charlie Wells DO Date of Service: 10/13/23 XR/XR chest 2V*: Shortness of Breath/Dyspnea PA AND LATERAL CHEST: CLINICAL HISTORY: Shortness of breath, pain between the shoulder blades, lightheadedness, nausea and vomiting. COMPARISON: 09/28/2023 There is no focal parenchymal consolidation, effusion or pneumothorax. The cardiac, hilar and mediastinal silhouettes are within normal limits. There is no vascular congestion. The visualized bony thorax is intact. There is S-shaped thoracolumbar scoliotic curvature. XR/XR chest 2V* IMPRESSION: NO ACUTE CARDIOPULMONARY ABNORMALITY. Impression dictated by: Catherine Cortes M.D.10/13/2023 1:52 PM Dictation Location: [place] [address] Transcribed By: [facility] 10/13/23 1352 Dictated By: Catherine Cortes MD 10/13/23 1352 Signed By: 10/13/23 1352 [facility] Activated partial thrombopla stin time (aPTT) in platelet poor plasma by coagulation aOrdered By: Ashley Roberson on 09-28-2023 aPTT Coag (PPP) [Time] 31.0 s 25.1-36.5 [facility] Comment on above: A hematocrit value g reater than 55% may lead to inaccurate results in coagulation testing. Patients having hematocrit values >55% require a special collection tube for coagulation studies. Please contact the laboratory at [phone] for redraw instructions. Alanine aminotransferase [En zymatic activity/volume] in Serum or PlasmaOrdered By: Ashley Roberson on 09-28-2023 ALT [Catalytic activity/Vol] 6 U/L 7-52 [facility] Albumin [Mass/volume] in Ser um or Plasma by Bromocresol green (BCG) dye binding methoOrdered By: Ashley Roberson on 09-28-2023 Albumin BCG dye [Mass/Vol] 4.8 g/dL 3.5-5.7 [facility] Alkaline phosphatase [Enzyma tic activity/volume] in Serum or PlasmaOrdered By: Ashley Roberson on 09-28-2023 ALP [Catalytic activity/Vol] 62 U/L 34-104 [facility] Aspartate aminotransferase [ Enzymatic activity/volume] in Serum or PlasmaOrdered By: Ashley Roberson on 09-28-2023 AST [Catalytic activity/Vol] 15 U/L 13-39 [facility] Automated erythrocytes count in urine sediment (number/area)Ordered By: Ashley Roberson on 09-28-2023 RBC Auto (Urine sed) [#/Area] 1-2 [HPF] 0-4 [facility] Automated leukocytes count i n urine sediment (number/area)Ordered By: Ashley Roberson on 09-28-2023 WBC Auto (Urine sed) [#/Area] 20-49 [HPF] 0-4 [facility] Automated urine hyaline cast s count (number/volume)Ordered By: Ashley Roberson on 09-28-2023 Hyaline casts Auto (U) [#/Vol] None seen [LPF] 0-1 [facility] Basophils Auto (Bld) [#/Vol] Ordered By: Ashley Roberson on 09-28-2023 Basophils (Bld) [#/Vol] 0.1 10*3/uL 0.0-0.2 [facility] Basophils/100 WBC Auto (Bld) Ordered By: Ashley Roberson on 09-28-2023 Basophils/100 WBC (Bld) 0.4 % . [facility] Bilirubin Test strip Ql (U)O rdered By: Ashley Roberson on 09-28-2023 Bilirubin Ql (U) Negative Negative [facility] Bilirubin.total [Mass/volume ] in Serum or PlasmaOrdered By: Ashley Roberson on 09-28-2023 Bilirubin [Mass/Vol] 1.2 mg/dL 0.3-1.0 [facility] COVID CepheidOrdered By: Nuvia Roberson on 09-28-2023 SARS-CoV-2 (COVID-19) Ab IA Ql Negative Negative [facility] Comment on above: This is a duplicate Cepheid Xpert Xpress CoV-2/Flu/RSV Plus RNA by RT-PCR result to be used for statistical tracking purpose only. SARS-CoV-2 (COVID-19) RNA OMAIRA+probe Ql (Unsp spec) [facility] COVID-19 / Flu A/B / RSV PCR on 09-28-2023 SARS-CoV-2 (COVID-19) RNA OMAIRA+probe Ql (Unsp spec) COVID-19 Cepheid Result Negative for SARS-CoV-2 RNA by RT-PCR Flu A Cepheid Result Negative for Flu A RNA by RT-PCR Flu B Cepheid Result Negative for Flu B RNA by RT-PCR RSV Cepheid Result Negative for RSV RNA by RT-PCR COVID19 Blank Space -- Reference: Negative COVID19 Blank Space -- Cepheid Disclaimer The Cepheid Xpert Xpress CoV-2/Flu/RSV Plus has Cepheid Disclaimer not been FDA cleared or approved; this test has Cepheid Disclaimer been authorized by FDA under an EUA for use by Cepheid Disclaimer authorized laboratories; this test has been Cepheid Disclaimer authorized only for the simultaneous qualitative Cepheid Disclaimer detection and differentiation of nucleic acids from Cepheid Disclaimer SARS-CoV-2, influenza A, influenza B, and Cepheid Disclaimer respiratory syncytial virus (RSV), and not for any Cepheid Disclaimer other viruses or pathogens; and this test is only Cepheid Disclaimer authorized for the duration of the declaration that Cepheid Disclaimer circumstances exist justifying the authorization of Cepheid Disclaimer emergency use of in vitro diagnostic tests for Cepheid Disclaimer detection and/or diagnosis of COVID-19 under Cepheid Disclaimer Section 564(b)(1) of the Act, 21 U.S.C. 360bbb- Cepheid Disclaimer 3(b)(1), unless the authorization is terminated or Cepheid Disclaimer revoked sooner. PERFORMED BY: [place] [address] PATHOLOGIST [employer] EMBOSSING PRESS OPERATOR KIERSTEN BYNUM M.D. Normal [facility] Comment on above: Performed By: #### U HCG, CUU, COVID19 FLU RSV, ADDONUAPLUS, CEPHEID NEG ####[facility] [id number] [place] [id number] [facility] CT abdomen pelvis w conon CT abdomen pelvis w con [facility] [address] [place] [address] [place] [address] CT Scan Report Signed Patient: Dawn Cuellar MR#: [id number] : 2000 Acct:[id number] Age/Sex: 23 / F ADM Date: 09/28/23 Loc: ER Room: Type: [facility] ER Attending Dr: Copies to: Ashley Roberson APRN Ordering Provider: Ashley Roberson APRN Date of Service: 09/28/23 CT/CT abdomen pelvis w con: pain CT ABDOMEN AND PELVIS WITH INTRAVENOUS CONTRAST: CLINICAL HISTORY: Lower abdominal pain nausea vomiting diarrhea coughing for one week. COMPARISON: CT abdomen and pelvis 07/27/2023. TECHNIQUE: Spiral images were obtained through the abdomen and pelvis following the administration of intravenous contrast. This CT exam was performed using one or more following dose reduction techniques: Automated exposure control, adjustment of the mA and/or kV according to patient size, or use of iterative reconstruction technique. FINDINGS: Lung Bases: [ Consolidation with groundglass medial basilar segment right lower lobe.] Organs:Liver gallbladder portal vein spleen pancreas and adrenal glands all appear unremarkable. No enhancing renal mass or hydronephrosis. Abdominal aorta appears normal in caliber. GI: Stomach is grossly unremarkable. Small bowel appears nondilated. No acute colonic abnormality. Appendix not visualized.[ Pelvis:[Urinary bladder is grossly unremarkable. Uterus is grossly unremarkable. No adnexal mass.] Peritoneum/Retroperitoneum :No free air, free fluid or lymphadenopathy.[ Abd wall/Bones:Abdominal wall demonstrate no acute findings. Osseous structures demonstrate no acute bony process.[ CT/CT abdomen pelvis w con IMPRESSION: 1. No acute intra-abdominal process is seen. 2. Consolidation with groundglass medial basilar segment right lower lobe. Developing infectious process is suspected. Repeat CT after therapy is recommended to ensure resolution. Impression dictated by: Zev Mauricio Jr., D.OSofia09/28/2023 3:43 PM Dictation Location: [place] [address] Transcribed By: [facility] 09/28/23 1543 Dictated By: Zev Mauricio Jr, DO 09/28/23 1539 Signed By: 09/28/23 1543 Normal [facility] Calcium [Mass/volume] in Ser um or PlasmaOrdered By: Ashley Roberson on 09-28-2023 Calcium [Mass/Vol] 10.1 mg/dL 8.6-10.3 [facility] Carbon dioxide, total [Moles /volume] in Serum or PlasmaOrdered By: Ashley Roberson on 09-28-2023 CO2 [Moles/Vol] 25.4 mmol/L 21.0-31.0 [facility] Cepheid COVID PCR Negativeon 09-28-2023 SARS-CoV-2 (COVID-19) RNA OMAIRA+probe Ql (Unsp spec) Negative Normal Negative [facility] Comment on above: Result Comment: This is a duplicate CepEyenalyzeid Xpert Xpress CoV-2/Flu/RSV Plus RNA by RT-PCR result to be used for statistical tracking purpose only. PERFORMED BY: [facility] [address] [place] [address] PATHOLOGIST [employer] EMB[employer]ING PRESS OPERATOR KIERSTEN BYNUM M.D. Performed By: #### U HCG, CUU, COVID19 FLU RSV, ADDONUAPLUS, CEPHEID NEG ####[facility] [id number] [place] [address] [facility] Chloride [Moles/volume] in S isabel or PlasmaOrdered By: Ashley Roberson on 09-28-2023 Chloride [Moles/Vol] 99 mmol/L 98-107 [facility] Color Auto (U)Ordered By: Sheng Roberson on 09-28-2023 Color (U) Dark yellow Yellow [facility] Complete Blood Count Auto Di ffon 09-28-2023 Basophils (Bld) [#/Vol] 0.1 10*3/uL Normal 0.0-0.2 [facility] Comment on above: Result Comment: PERF ORMED BY: [facility] [address] [place] [address] PATHOLOGIST [employer] E[employer]ING PRESS OPERATOR KIERSTEN BYNUM M.D. Performed By: #### H S TROP, LIPASE, CBC, PT, DDIMER, CMP, PTT ####[address] Basophils/100 WBC (Bld) 0.4 % Normal . [facility] Comment on above: Performed By: #### H S TROP, LIPASE, CBC, PT, DDIMER, CMP, PTT ####[address] Eosinophils (Bld) [#/Vol] 0.2 10*3/uL Normal 0.0-0.45 [facility] Comment on above: Performed By: #### H S TROP, LIPASE, CBC, PT, DDIMER, CMP, PTT ####[address] Eosinophils/100 WBC (Bld) 1.3 % Normal . [facility] Comment on above: Performed By: #### H S TROP, LIPASE, CBC, PT, DDIMER, CMP, PTT ####[address] Erythrocyte distribution width (RBC) [Ratio] 13.8 % Normal 11.9-15.3 [facility] Comment on above: Performed By: #### H S TROP, LIPASE, CBC, PT, DDIMER, CMP, PTT ####[address] Hematocrit (Bld) [Volume fraction] 38.8 % Normal 34.0-46.4 [facility] Comment on above: Performed By: #### H S TROP, LIPASE, CBC, PT, DDIMER, CMP, PTT ####[address] Hemoglobin (Bld) [Mass/Vol] 13.4 g/dL Normal 11.8-15.4 [facility] Comment on above: Performed By: #### H S TROP, LIPASE, CBC, PT, DDIMER, CMP, PTT ####[address] Lymphocytes (Bld) [#/Vol] 1.4 10*3/uL Normal 1.00-4.8 [facility] Comment on above: Performed By: #### H S TROP, LIPASE, CBC, PT, DDIMER, CMP, PTT ####[address] Lymphocytes/100 WBC (Bld) 8.2 % Normal . [facility] Comment on above: Performed By: #### H S TROP, LIPASE, CBC, PT, DDIMER, CMP, PTT ####[address] MCH (RBC) [Entitic mass] 29.5 pg Normal 24.7-34.3 [facility] Comment on above: Performed By: #### H S TROP, LIPASE, CBC, PT, DDIMER, CMP, PTT ####[address] MCV (RBC) [Entitic vol] 85.4 fL Normal 80-100 [facility] Comment on above: Performed By: #### H S TROP, LIPASE, CBC, PT, DDIMER, CMP, PTT ####[address] Mean Corpuscular HGB Conc 34.6 g/dL Normal 32.0-35.0 [facility] Comment on above: Performed By: #### H S TROP, LIPASE, CBC, PT, DDIMER, CMP, PTT ####[place] [id number] [address] Monocytes (Bld) [#/Vol] 0.7 10*3/uL Normal 0.0-0.8 [facility] Comment on above: Performed By: #### H S TROP, LIPASE, CBC, PT, DDIMER, CMP, PTT ####[address] Monocytes/100 WBC (Bld) 20.66 % High 0.00-20.00 [facility] Comment on above: Result Comment: For adults in ED, MDW > 20.0 may be associated with a higher risk of sepsis during the first 12 hrs of hospital admission Performed By: #### H S TROP, LIPASE, CBC, PT, DDIMER, CMP, PTT ####[address] Monocytes/100 WBC (Bld) 4.2 % Normal . [facility] Comment on above: Performed By: #### H S TROP, LIPASE, CBC, PT, DDIMER, CMP, PTT ####[address] Neutrophils (Bld) [#/Vol] 15.1 10*3/uL High 1.8-7.7 [facility] Comment on above: Performed By: #### H S TROP, LIPASE, CBC, PT, DDIMER, CMP, PTT ####[address] Neutrophils/100 WBC (Bld) 85.9 % Normal . [facility] Comment on above: Performed By: #### H S TROP, LIPASE, CBC, PT, DDIMER, CMP, PTT ####[address] NRBC% 0.1 /100{WBC} Normal 0-0.5 [facility] Comment on above: Performed By: #### H S TROP, LIPASE, CBC, PT, DDIMER, CMP, PTT ####[address] Platelet mean volume (Bld) [Entitic vol] 8.0 fL Normal 6.3-10.7 [facility] Comment on above: Performed By: #### H S TROP, LIPASE, CBC, PT, DDIMER, CMP, PTT ####[place] [id number] [facility] Platelets (Bld) [#/Vol] 377 10*3/uL Normal 150-450 [facility] Comment on above: Performed By: #### H S TROP, LIPASE, CBC, PT, DDIMER, CMP, PTT ####[address] RBC (Bld) [#/Vol] 4.55 10*6/uL Normal 3.60-5.00 [facility] Comment on above: Performed By: #### H S TROP, LIPASE, CBC, PT, DDIMER, CMP, PTT ####[address] WBC (Bld) [#/Vol] 17.6 10*3/uL High 3.8-11.6 [facility] Comment on above: Performed By: #### H S TROP, LIPASE, CBC, PT, DDIMER, CMP, PTT ####[address] Comprehensive Metabolic Pane rohit 09-28-2023 Albumin [Mass/Vol] 4.8 g/dL Normal 3.5-5.7 [facility] Comment on above: Performed By: #### H S TROP, LIPASE, CBC, PT, DDIMER, CMP, PTT ####[place] [id number] [facility] Albumin/Globulin [Mass ratio] 1.5 {ratio} Normal [facility] Comment on above: Performed By: #### H S TROP, LIPASE, CBC, PT, DDIMER, CMP, PTT ####[place] [id number] [facility] ALP [Catalytic activity/Vol] 62 U/L Normal 34-104 [facility] Comment on above: Performed By: #### H S TROP, LIPASE, CBC, PT, DDIMER, CMP, PTT ####[address] ALT [Catalytic activity/Vol] 6 U/L Low 7-52 [facility] Comment on above: Performed By: #### H S TROP, LIPASE, CBC, PT, DDIMER, CMP, PTT ####[address] Anion gap [Moles/Vol] 18.4 mmol/L High 6.0-15.0 [facility] Comment on above: Performed By: #### H S TROP, LIPASE, CBC, PT, DDIMER, CMP, PTT ####[address] AST [Catalytic activity/Vol] 15 U/L Normal 13-39 [facility] Comment on above: Performed By: #### H S TROP, LIPASE, CBC, PT, DDIMER, CMP, PTT ####[place] [id number] [facility] Bilirubin [Mass/Vol] 1.2 mg/dL High 0.3-1.0 [facility] [facility] Comment on above: Performed By: #### H S TROP, LIPASE, CBC, PT, DDIMER, CMP, PTT ####[place] [id number] [facility] Calcium [Mass/Vol] 10.1 mg/dL Normal 8.6-10.3 [facility] Comment on above: Performed By: #### H S TROP, LIPASE, CBC, PT, DDIMER, CMP, PTT ####[place] [id number] [facility] Chloride [Moles/Vol] 99 mmol/L Normal 98-107 [facility] Comment on above: Performed By: #### H S TROP, LIPASE, CBC, PT, DDIMER, CMP, PTT ####[place] [id number] [facility] CO2 [Moles/Vol] 25.4 mmol/L Normal 21.0-31.0 [facility] Comment on above: Performed By: #### H S TROP, LIPASE, CBC, PT, DDIMER, CMP, PTT ####[address] Creatinine [Mass/Vol] 0.62 mg/dL Normal 0.60-1.20 [facility] Comment on above: Performed By: #### H S TROP, LIPASE, CBC, PT, DDIMER, CMP, PTT ####[address] Creatinine Clr Calc Pharmacy 92.34 [facility] Comment on above: Performed By: #### H S TROP, LIPASE, CBC, PT, DDIMER, CMP, PTT ####[address] GFR/1.73 sq M.predicted MDRD (S/P/Bld) [Vol rate/Area] mL/min/{1.73_m2} [facility] Comment on above: Performed By: #### H S TROP, LIPASE, CBC, PT, DDIMER, CMP, PTT ####[address] Globulin (S) [Mass/Vol] 3.3 g/dL Normal [facility] Comment on above: Performed By: #### H S TROP, LIPASE, CBC, PT, DDIMER, CMP, PTT ####[address] Glucose [Mass/Vol] 59 mg/dL Low 70-100 [facility] Comment on above: Result Comment: [facility] Glucose Reference Range is dependent on time and content of last meal. Glucose of more than 200 mg/dL in a nonstressed, ambulatory subject supports the diagnosis of Diabetes Mellitus. ADA recommended reference range Performed By: #### H S TROP, LIPASE, CBC, PT, DDIMER, CMP, PTT ####[address] Potassium [Moles/Vol] 3.8 mmol/L Normal 3.5-5.1 [facility] Comment on above: Performed By: #### H S TROP, LIPASE, CBC, PT, DDIMER, CMP, PTT ####[address] Protein [Mass/Vol] 8.1 g/dL Normal 6.4-8.9 [facility] Comment on above: Performed By: #### H S TROP, LIPASE, CBC, PT, DDIMER, CMP, PTT ####[address] Sodium [Moles/Vol] 139 mmol/L Normal 136-145 [facility] Comment on above: Performed By: #### H S TROP, LIPASE, CBC, PT, DDIMER, CMP, PTT ####[address] Urea nitrogen [Mass/Vol] 12 mg/dL Normal 7-25 [facility] Comment on above: Performed By: #### H S TROP, LIPASE, CBC, PT, DDIMER, CMP, PTT ####[address] Creatinine [Mass/volume] in Serum or PlasmaOrdered By: Ashley Roberson on 09-28-2023 Creatinine [Mass/Vol] 0.62 mg/dL 0.60-1.20 [facility] D-Dimer High Sensitivityon 0 09-28-2023 D-Dimer High Sensitivity < 200 Normal 0-243 [facility] Comment on above: Result Comment: The reference range for D-dimer is <243 ng/mL D-dimer units. D-dimer results must be used in conjunction with a clinical pretest probability (PTP) assessment model for deep vein thrombosis (DVT) and pulmonary embolism (PE). Results <230 ng/mL d-dimer units can be used as a negative predictor in patients with low or moderate probability for DVT/PE. Results above the exclusion threshold of 230 ng/ml D-dimer units for DVT/PE may indicate the need for further diagnostic testing. D-Dimer can be increased in hospitalized patients due to co-morbid conditions. A hematocrit value greater than 55% may lead to inaccurate results in coagulation testing. Patients having hematocrit values >55% require a special collection tube for coagulation studies. Please contact the laboratory at [phone] for redraw instructions. PERFORMED BY: [facility] [address] [place] [address] PATHOLOGIST [employer] PRESS OPERATOR KIERSTEN BYNUM M.D. Performed By: #### U HCG, ADDONUAPLUS #### [facility] [address] [place] [address] [place] Dipstick and Microscopicon 0 09-28-2023 Appearance (U) Clear Normal Clear [facility] Comment on above: Order Comment: Name Collection Type:: Clean-Voided Midstream Performed By: #### U HCG, CUU, COVID19 FLU RSV, ADDONUAPLUS, CEPHEID NEG ####[address] Bacteria,Urine None Seen Normal None Seen [facility] Comment on above: Order Comment: Name Collection Type:: Clean-Voided Midstream Performed By: #### U HCG, CUU, COVID19 FLU RSV, ADDONUAPLUS, CEPHEID NEG ####[address] Bilirubin,Urine Negative Normal Negative [facility] Comment on above: Order Comment: Name Collection Type:: Clean-Voided Midstream Performed By: #### U HCG, CUU, COVID19 FLU RSV, ADDONUAPLUS, CEPHEID NEG ####[place] [id number] [facility] Color (U) Dark Yellow Critically abnormal Yellow [facility] Comment on above: Order Comment: Name Collection Type:: Clean-Voided Midstream Performed By: #### U HCG, CUU, COVID19 FLU RSV, ADDONUAPLUS, CEPHEID NEG ####[place] [id number] [place] Glucose Ql (U) Normal Normal Normal [facility] Comment on above: Order Comment: Name Collection Type:: Clean-Voided Midstream Performed By: #### U HCG, CUU, COVID19 FLU RSV, ADDONUAPLUS, CEPHEID NEG ####[address] [place] [address] [place] Hyaline Casts,Urine None Seen Normal 0-1 [facility] Comment on above: Order Comment: Name Collection Type:: Clean-Voided Midstream Performed By: #### U HCG, CUU, COVID19 FLU RSV, ADDONUAPLUS, CEPHEID NEG ####[address] Ketones Ql (U) 4+ High Negative [facility] Comment on above: Order Comment: Name Collection Type:: Clean-Voided Midstream Performed By: #### U HCG, CUU, COVID19 FLU RSV, ADDONUAPLUS, CEPHEID NEG ####[address] Leukocyte esterase Test strip Ql (U) 3+ High Negative [facility] Comment on above: Order Comment: Name Collection Type:: Clean-Voided Midstream Performed By: #### U HCG, CUU, COVID19 FLU RSV, ADDONUAPLUS, CEPHEID NEG ####[address] Nitrite,Urine Negative Normal Negative [facility] Comment on above: Order Comment: Name Collection Type:: Clean-Voided Midstream Performed By: #### U HCG, CUU, COVID19 FLU RSV, ADDONUAPLUS, CEPHEID NEG ####[address] Occult Blood,Urine Negative Normal Negative [facility] Comment on above: Order Comment: Name Collection Type:: Clean-Voided Midstream Performed By: #### U HCG, CUU, COVID19 FLU RSV, ADDONUAPLUS, CEPHEID NEG ####[address] pH (U) 6.0 [pH] Normal 5.0-9.0 [facility] Comment on above: Order Comment: Name Collection Type:: Clean-Voided Midstream Performed By: #### U HCG, CUU, COVID19 FLU RSV, ADDONUAPLUS, CEPHEID NEG ####[address] Protein (U) [Mass/Vol] 30 mg/dL High Negative [facility] Comment on above: Order Comment: Name Collection Type:: Clean-Voided Midstream Performed By: #### U HCG, CUU, COVID19 FLU RSV, ADDONUAPLUS, CEPHEID NEG ####[address] RBC,Urine 1-2 Normal 0-4 [facility] Comment on above: Order Comment: Name Collection Type:: Clean-Voided Midstream Performed By: #### U HCG, CUU, COVID19 FLU RSV, ADDONUAPLUS, CEPHEID NEG ####[address] Specificy [place],Urine 1.030 Normal 1.00 1-1.03 0 [facility] Comment on above: Order Comment: Name Collection Type:: Clean-Voided Midstream Performed By: #### U HCG, CUU, COVID19 FLU RSV, ADDONUAPLUS, CEPHEID NEG ####[address] Squamous Epithelial Cell,Urine 3-4 High 0-2 [facility] Comment on above: Order Comment: Name Collection Type:: Clean-Voided Midstream Performed By: #### U HCG, CUU, COVID19 FLU RSV, ADDONUAPLUS, CEPHEID NEG ####[address] Urobilinogen,Urine Normal Normal Normal [facility] Comment on above: Order Comment: Name Collection Type:: Clean-Voided Midstream Performed By: #### U HCG, CUU, COVID19 FLU RSV, ADDONUAPLUS, CEPHEID NEG ####[address] WBC,Urine 20-49 High 0-4 [facility] Comment on above: Order Comment: Name Collection Type:: Clean-Voided Midstream Performed By: #### U HCG, CUU, COVID19 FLU RSV, ADDONUAPLUS, CEPHEID NEG ####[facility] [address] [place] [id number] [facility] ECG 12 lead ECGon 09-28-2023 ECG 12 lead ECG [facility] [address] [place] [address] [place] [id number] Electrocardiograph Report Signed Patient: Dawn Cuellar MR#: [id number] : 2000 Acct:[id number] Age/Sex: 23 / F ADM Date: 09/28/23 Loc: ER Room: Type: [facility] ER Attending Dr: Ordering Provider: Ashley Roberson APRN Date of Service: 09/28/23 ECG/ECG 12 lead ECG: Nausea/Vomiting/Diarrhea Copies to: Test Reason : Blood Pressure : 112/073 mmHG Vent. Rate : 107 BPM Atrial Rate : 107 BPM P-R Int : 122 ms QRS Dur : 084 ms QT Int : 374 ms P-R-T Axes : 084 093 026 degrees QTc Int : 499 ms Sinus tachycardia Confirmed by Duane OVALLE DO ([id number]) on 09/28/2023 4:15:44 PM Referred By: Electronically Signed By:Duane OVALLE DO Transcribed By: MUS Signed By Duane Ovalle DO 0 09/28/23 1615 Normal [facility] Eosinophils Auto (Bld) [#/Vo l]Ordered By: Ashley Roberson on 09-28-2023 Eosinophils (Bld) [#/Vol] 0.2 10*3/uL 0.0-0.45 [facility] Eosinophils/100 WBC Auto (Bl d)Ordered By: Ashley Roberson on 09-28-2023 Eosinophils/100 WBC (Bld) 1.3 % . [facility] Erythrocyte distribution wid th Auto (RBC) [Ratio]Ordered By: Ashley Roberson on 09-28-2023 Erythrocyte distribution width (RBC) [Ratio] 13.8 % 11.9-15.3 [facility] Fibrin D-dimer [Presence] in Platelet poor plasma by Latex agglutinationOrdered By: Ashley Roberson on 09-28-2023 Fibrin D-dimer LA Ql (PPP) < 200 ng/mL 0-243 [facility] Comment on above: The reference range for D-dimer is <243 ng/mL D-dimer units.D-dimer results must be used in conjunction with a clinicalpretest probability (PTP) assessment model for deep veinthrombosis (DVT) and pulmonary embolism (PE). Results <230ng/mL d-dimer units can be used as a negative predictor inpatients with low or moderate probability for DVT/PE.Results above the exclusion threshold of 230 ng/ml D-dimerunits for DVT/PE may indicate the need for furtherdiagnostic testing.D-Dimer can be increased in hospitalized patients due toco-morbid conditions.A hematocrit value greater than 55% may lead to inaccurate results in coagulation testing. Patients having hematocrit values >55% require a special collection tube for coagulation studies. Please contact the laboratory at [phone] for redraw instructions. Globulin Calc (S) [Mass/Vol] Ordered By: Ashley Roberson on 09-28-2023 Globulin (S) [Mass/Vol] 3.3 g/dL F [facility] Glucose Glucometer (BldC) [M ass/Vol]Ordered By: Ashley Roberson on 09-28-2023 Glucose [Mass/Vol] 113 mg/dL [facility] Comment on above: Random Glucose Refer ence Range is dependent on time and content of last meal. Glucose of more than 200 mg/dL in a nonstressed, ambulatory subject supports the diagnosis of Diabetes Mellitus. Glucose Poct Glucometerson 0 09-28-2023 Glucose [Mass/Vol] 113 mg/dL Normal [facility] Comment on above: Result Comment: [place] Glucose Reference Range is dependent on time and content of last meal. Glucose of more than 200 mg/dL in a nonstressed, ambulatory subject supports the diagnosis of Diabetes Mellitus. PERFORMED BY: [facility] [address] [place] [address] PATHOLOGIST [employer] PRESS OPERATOR KIERSTEN BYNUM M.D. Performed By: #### G LULS ####Point of Care testing, Commemt1 [facility] Comment on above: Result Comment: Glu2 : WILL NOTIFY /RN PERFORMED BY: [facility] [address] [place] [address] PATHOLOGIST [employer] PR[employer] OPERATOR KIERSTEN BYNUM M.D. Performed By: #### G MARIALUISA ####Point of Care testing, Glucose [Mass/Vol] 57 mg/dL Off scale low [facility] Comment on above: Result Comment: [place] [facility] Glucose Reference Range is dependent on time and content of last meal. Glucose of more than 200 mg/dL in a nonstressed, ambulatory subject supports the diagnosis of Diabetes Mellitus. Performed By: #### G LULS ####Point of Care testing, Glucose [Mass/volume] in Ser um or PlasmaOrdered By: Ashley Roberson on 09-28-2023 Glucose [Mass/Vol] 59 mg/dL 70-100 [facility] Comment on above: ADA recommended refe rence rangeRandom Glucose Reference Range is dependent on time and content of last meal. Glucose of more than 200 mg/dL in a nonstressed, ambulatory subject supports the diagnosis of Diabetes Mellitus. HCG ( test) IA.rapi d Ql (U)Ordered By: Ashley Roberson on 09-28-2023 HCG ( test) Ql (U) Negative [facility] HCG,Urineon 09-28-2023 Beta HCG ( test) Ql (U) Negative Normal [facility] Comment on above: Order Comment: Name Collection Type:: Clean-Voided Midstream Result Comment: PERF ORMED BY: [facility] [address] [place] [address] PATHOLOGIST [employer] OPERATOR KIERSTEN BYNUM M.D. Performed By: #### U HCG, CUU, COVID19 FLU RSV, ADDONUAPLUS, CEPHEID NEG ####[facility] [id number] [place] [address] [facility] Hematocrit Auto (Bld) [Volum e fraction]Ordered By: Ashley Roberson on 09-28-2023 Hematocrit (Bld) [Volume fraction] 38.8 % 34.0-46.4 [facility] Hemoglobin [Mass/volume] in BloodOrdered By: Ashley Roberson on 09-28-2023 Hemoglobin (Bld) [Mass/Vol] 13.4 g/dL 11.8-15.4 [facility] INR in Platelet poor plasma by Coagulation assayOrdered By: Ashley Roberson on 09-28-2023 INR Coag (PPP) [Relative time] 1.2 {INR} [facility] Comment on above: INR Therapeutic Rang e A) Pre- and Peroperative OAT started two weeks before surgery. NOT HIP SURGERY: 1.5 - 2.5 HIP SURGERY: 2 - 3B) Primary and secondary prevention of venous THROMBOSIS: 2 - 3C) Active venous thrombosis, pulmonary embolismand prevention of recurrent venous thrombosis: 2 - 3D) Prevention of arterial thromboembolismincluding patients with mechanical heart valves: 3 - 4.5 Ketones Auto test strip (U) [Mass/Vol]Ordered By: Ashley Roberson on 09-28-2023 Ketones (U) [Mass/Vol] 4+ Negative [facility] Leukocytes [#/volume] correc michael for nucleated erythrocytes in Blood by Automated counOrdered By: Ashley Roberson on 09-28-2023 WBC corrected for nucl RBC Auto (Bld) [#/Vol] 17.6 10*3/uL 3.8-11.6 [facility] Lipaseon 09-28-2023 Lipase [Catalytic activity/Vol] 15.0 U/L Normal 11.0-82.0 [facility] Comment on above: Result Comment: PERF ORMED BY: [place] [address] PATHOLOGIST [employer] PRESS OPERATOR KIERSTEN BYNUM M.D. Performed By: #### U HCG, ADDONUAPLUS #### [facility] [address] [place] [address] Lipase [Enzymatic activity/v olume] in Serum or PlasmaOrdered By: Ashley Roberson on 09-28-2023 Lipase [Catalytic activity/Vol] 15.0 U/L 11.0-82.0 [facility] Lymphocytes Auto (Bld) [#/Vo l]Ordered By: Ashley Roberson on 09-28-2023 Lymphocytes (Bld) [#/Vol] 1.4 10*3/uL 1.00-4.8 [facility] Lymphocytes/100 WBC Auto (Bl d)Ordered By: Ashley Roberson on 09-28-2023 Lymphocytes/100 WBC (Bld) 8.2 % . [facility] MCH Auto (RBC) [Entitic mass ]Ordered By: Ashley Roberson on 09-28-2023 MCH (RBC) [Entitic mass] 29.5 pg 24.7-34.3 [facility] MCHC Auto (RBC) [Mass/Vol]Or dered By: Ashley Roberson on 09-28-2023 MCHC (RBC) [Mass/Vol] 34.6 g/dL 32.0-35.0 [facility] MCV Auto (RBC) [Entitic vol] Ordered By: Ashley Roberson on 09-28-2023 MCV (RBC) [Entitic vol] 85.4 fL 80-100 F [facility] Monocyte distribution width [Entitic volume] in Blood by AutomatedOrdered By: Ashley Roberson on 09-28-2023 Monocyte distribution width Auto (Bld) [Entitic vol] 20.66 % 0.00-20.00 [facility] Comment on above: For adults in ED, MD W > 20.0 may be associated with a higher risk of sepsis during the first 12 hrs of hospital admission Monocytes Auto (Bld) [#/Vol] Ordered By: Ashley Roberson on 09-28-2023 Monocytes (Bld) [#/Vol] 0.7 10*3/uL 0.0-0.8 [facility] Monocytes/100 WBC Auto (Bld) Ordered By: Ashley Roberson on 09-28-2023 Monocytes/100 WBC (Bld) 4.2 % . [facility] Neutrophils Auto (Bld) [#/Vo l]Ordered By: Ashley Roberson on 09-28-2023 Neutrophils (Bld) [#/Vol] 15.1 10*3/uL 1.8-7.7 [facility] Neutrophils/100 WBC Auto (Bl d)Ordered By: Ashley Roberson on 09-28-2023 Neutrophils/100 WBC (Bld) 85.9 % . [facility] Nitrite Test strip Ql (U)Ord ered By: Ashley Roberson on 09-28-2023 Nitrite Ql (U) Negative Negative [facility] No Panel InformationOrdered By: Ashley Roberson on 09-28-2023 Bedside Glucose Comment See comment [facility] Comment on above: Glu2: WILL NOTIFY DR /RN Estimated GFR (CKD-EPI) > 60.0 mL/Min [facility] Creatinine Clearance (Chem 92.34 [facility] Nucleated erythrocytes [Pres ence] in Blood by Automated countOrdered By: Ashley Roberson on 09-28-2023 Nucleated RBC Auto Ql (Bld) 0.1 /100{WBC} 0-0.5 [facility] Partial Thromboplastin Timeo n 09-28-2023 aPTT Coag (Bld) [Time] 31.0 s Normal 25.1-36.5 [facility] Comment on above: Result Comment: A he matocrit value greater than 55% may lead to inaccurate results in coagulation testing. Patients having hematocrit values >55% require a special collection tube for coagulation studies. Please contact the laboratory at [phone] for redraw instructions. Performed By: #### U HCG, ADDONUAPLUS #### [address] Platelet mean volume Auto (B ld) [Entitic vol]Ordered By: Ashley Roberson on 09-28-2023 Platelet mean volume (Bld) [Entitic vol] 8.0 fL 6.3-10.7 [facility] Platelets Auto (Bld) [#/Vol] Ordered By: Ashley Roberson on 09-28-2023 Platelets (Bld) [#/Vol] 377 10*3/uL 150-450 [facility] Potassium [Moles/volume] in Serum or PlasmaOrdered By: Ashley Roberson on 09-28-2023 Potassium [Moles/Vol] 3.8 mmol/L 3.5-5.1 [facility] Protein Auto test strip (U) [Mass/Vol]Ordered By: Ashley Roberson on 09-28-2023 Protein (U) [Mass/Vol] 30 mg/dL Negative [facility] Protein [Mass/volume] in Ser um or PlasmaOrdered By: Ashley Roberson on 09-28-2023 Protein [Mass/Vol] 8.1 g/dL 6.4-8.9 [facility] Prothrombin Time INRon 09-28 INR Coag (PPP) [Relative time] 1.2 {INR} Normal [facility] Comment on above: Result Comment: INR Therapeutic Range A) Pre- and Peroperative OAT started two weeks before surgery. NOT HIP SURGERY: 1.5 - 2.5 HIP SURGERY: 2 - 3 B) Primary and secondary prevention of venous THROMBOSIS: 2 - 3 C) Active venous thrombosis, pulmonary embolism and prevention of recurrent venous thrombosis: 2 - 3 D) Prevention of arterial thromboembolism including patients with mechanical heart valves: 3 - 4.5 Performed By: #### U HCG, ADDONUAPLUS #### [facility] [address] PT Coag (PPP) [Time] 13.8 s High 9.0-12.9 [facility] Comment on above: Result Comment: A he matocrit value greater than 55% may lead to inaccurate results in coagulation testing. Patients having hematocrit values >55% require a special collection tube for coagulation studies. Please contact the laboratory at [phone] for redraw instructions. Performed By: #### U HCG, ADDONUAPLUS #### [facility] [address] [place] [id number] [facility] Prothrombin time (PT)Ordered By: Ashley Roberson on 09-28-2023 PT Coag (PPP) [Time] 13.8 s 9.0-12.9 [facility] Comment on above: A hematocrit value g reater than 55% may lead to inaccurate results in coagulation testing. Patients having hematocrit values >55% require a special collection tube for coagulation studies. Please contact the laboratory at [phone] for redraw instructions. RBC Auto (Bld) [#/Vol]Ordere d By: Ashley Roberson on 09-28-2023 RBC (Bld) [#/Vol] 4.55 10*6/uL 3.60-5.00 [facility] Serum or plasma albumin/glob ulin mass ratioOrdered By: Ashley Roberson on 09-28-2023 Albumin/Globulin [Mass ratio] 1.5 {ratio} [facility] Serum or plasma anion gap de terminationOrdered By: Ashley Roberson on 09-28-2023 Anion gap [Moles/Vol] 18.4 mmol/L 6.0-15.0 [facility] Sodium [Moles/volume] in Ser um or PlasmaOrdered By: Ashley Roberson on 09-28-2023 Sodium [Moles/Vol] 139 mmol/L 136-145 [facility] Specific gravity Auto test s trip (U) [Rel density]Ordered By: Ashley Roberson on 09-28-2023 Specific gravity (U) [Rel density] 1.030 1.001-1.03 0 [facility] Squamous epithelial cells de tection in urine sediment by light microscopyOrdered By: Ashley Roberson on 09-28-2023 Epithelial cells.squamous LM Ql (Urine sed) 3-4 [HPF] 0-2 [facility] Troponin I High Sensitivityo n 09-28-2023 Troponin I High Sensitivity 3.3 pg/mL Normal 0.0-15.0 [facility] Comment on above: Result Comment: PERF ORMED BY: [place] [address] PATHOLOGIST [employer] PR[employer] OPERATOR KIERSTEN BYNUM M.D. Performed By: #### U HCG, ADDONUAPLUS #### [address] Troponin I.cardiac [Mass/vol ume] in Serum or Plasma by Detection limit <= 0.01 ng/Ordered By: Ashley Roberson on 09-28-2023 Troponin I.cardiac DL <= 0.01 ng/mL [Mass/Vol] 3.3 pg/mL 0.0-15.0 [facility] Urea nitrogen [Mass/volume] in Serum or PlasmaOrdered By: Ashley Roberson on 09-28-2023 Urea nitrogen [Mass/Vol] 12 mg/dL 7 [facility] Urine Cultureon 09-28-2023 Bacteria identified Cx Nom (U) ORGANISM: Strep agalactiae - (group b) (O:STRAGA) [place] Count 50,000 PERFORMED BY: [place] [address] PATHOLOGIST [employer] OPERATOR KIERSTEN BYNUM M.D. Normal [facility] Comment on above: Performed By: #### U HCG, CUU, COVID19 FLU RSV, ADDONUAPLUS, CEPHEID NEG ####[facility] [address] [place] [id number] [facility] Urine bacteria detection by automated methodOrdered By: Ashley Roberson on 09-28-2023 Bacteria Auto Ql (U) None seen None Seen [facility] Urine clarity by refractomet ry automatedOrdered By: Ashley Roberson on 09-28-2023 Clarity Refractometry automated (U) Clear Clear [facility] Urine culture routineOrdered By: Ashley Roberson on 09-28-2023 Bacteria identified Cx Nom (U) Strep agalactiae - (group b) [facility] Urine glucose measurement by automated test strip (mass/volume)Ordered By: Ashley Roberson on 09-28-2023 Glucose Auto test strip (U) [Mass/Vol] Normal mg/dL Normal [facility] Urine hemoglobin detection b y automated test stripOrdered By: Ashley Roberson on 09-28-2023 Hemoglobin Auto test strip Ql (U) Negative Negative [facility] Urine leukocyte esterase det ection by automated test stripOrdered By: Ashley Roberson on 09-28-2023 Leukocyte esterase Auto test strip Ql (U) 3+ Negative [facility] Urobilinogen Auto test strip (U) [Mass/Vol]Ordered By: Ashley Roberson on 09-28-2023 Urobilinogen (U) [Mass/Vol] Normal mg/dL Normal [facility] WBC Auto (Bld) [#/Vol]Ordere d By: Ashley Roberson on 09-28-2023 WBC (Bld) [#/Vol] 17.6 10*3/uL 3.8-11.6 [facility] XR chest 2V*on 09-28-2023 XR chest 2V* [facility] [address] [place] [id number] XRay Report Signed Patient: Dawn Cuellar MR#: [id number] : 2000 Acct:[id number] Age/Sex: 23 / F ADM Date: 09/28/23 Loc: ER Room: [facility] [facility] Attending Dr: Copies to: Ashley Roberson APRN Ordering Provider: Ashley Roberson APRN Date of Service: 09/28/23 XR/XR chest 2V*: Nausea/Vomiting/Diarrhea Chest 2 views CLINICAL HISTORY: Nausea vomiting diarrhea cough chest pain abdominal pain for one week. COMPARISON: Chest 04/20/2019. FINDINGS: Heart normal size. Lungs are clear. No free air. XR/XR chest 2V* IMPRESSION: NO ACUTE CARDIOPULMONARY ABNORMALITY. Impression dictated by: Zev Mauricio Jr., D.O.09/28/2023 3:37 PM Dictation Location: [place] [address] Transcribed By: [facility] [place] 09/28/23 1537 Dictated By: Zev Mauricio Jr, DO 09/28/23 1536 Signed By: 09/28/23 1537 Normal [facility] pH Auto test strip (U)Ordere d By: Ashley Roberson on 09-28-2023 pH (U) 6.0 [pH] 5.0-9.0 [facility] Amphetamine Screen Ql (U)Ord ered By: Jordi Seals on 09-10-2023 Amphetamines Ql (U) Negative Negative [facility] Barbiturates [Presence] in U rine by Screen methodOrdered By: Jordi Seals on 09-10-2023 Barbiturates Screen Ql (U) Negative Negative [facility] Benzodiazepines Screen Ql (U )Ordered By: Jordi Seals on 09-10-2023 Benzodiazepines Ql (U) Negative Negative [facility] Benzoylecgonine [Presence] i n Urine by Screen methodOrdered By: Jordi Seals on 09-10-2023 Benzoylecgonine Screen Ql (U) Negative Negative [facility] Cannabinoids [Presence] in U rine by Screen methodOrdered By: Jordi Seals on 09-10-2023 Cannabinoids Screen Ql (U) Positive Negative [facility] Comment on above: These are unconfirme d results and should not be used for legal purposes. Drug Cut-Off Concentration: AMPH 1000 ng/mL VENKATA 200 ng/mL BREANNA 200 ng/mL COCM 300 ng/mL OP 300 ng/mL PCP 25 ng/mL THC 20 ng/mL Drug Screen,Urineon 09-10-19 Amphetamine Screen,Urine Negative Normal Negative [facility] Comment on above: Performed By: #### U HCG, ADDONUAPLUS #### [address] Barbiturate Screen,Urine Negative Normal Negative [facility] Comment on above: Performed By: #### U HCG, ADDONUAPLUS #### [address] Benzodiazepines Screen,Urine Negative Normal Negative [facility] Comment on above: Performed By: #### U HCG, ADDONUAPLUS #### [address] Cannabinoid Screen,Urine Positive High Negative [facility] Comment on above: Result Comment: Thes e are unconfirmed results and should not be used for legal purposes. Drug Cut-Off Concentration: AMPH 1000 ng/mL VENKATA 200 ng/mL BREANNA 200 ng/mL COCM 300 ng/mL OP 300 ng/mL PCP 25 ng/mL THC 20 ng/mL PERFORMED BY: [place] [address] PATHOLOGIST [employer] EMBOSSING PRESS OPERATOR KIERSTEN BYNUM M.D. Performed By: #### U HCG, ADDONUAPLUS #### [address] Cocaine Screen,Urine Negative Normal Negative [facility] Comment on above: Performed By: #### U HCG, ADDONUAPLUS #### [place] [address] [place] Opiate Screen,Urine Negative Normal Negative [facility] Comment on above: Performed By: #### U HCG, ADDONUAPLUS #### [address] Phencyclidine Screen,Urine Negative Normal Negative [facility] Comment on above: Performed By: #### U HCG, ADDONUAPLUS #### [facility] [address] [place] [address] HCG ( test) Colt ott Ql (U)Ordered By: Jordi Seals on 09-10-2023 HCG ( test) Ql (U) Negative [facility] HCG,Urineon 09-10-2023 Beta HCG ( test) Ql (U) Negative Normal [facility] Comment on above: Result Comment: PERF ORMED BY: [place] [address] PATHOLOGIST [employer] EMB[employer]ING PRESS OPERATOR KIERSTEN BYNUM M.D. Performed By: #### U HCG, ADDONUAPLUS #### [facility] [address] [place] [address] Rohit 09-10-2023 L ------ Specimen: [id number] Received: 09/10/23 Status: LAURA Mari Num: [id number] Spec Type: Surgical Subm Dr: Jordi Seals MD Tissues: A Duodenum - Biopsy (DUODENUM BX) B GASTRIC FOR HP (GASTRIC HP) Procedures: HE/4, Gross/Micro L4/2, H PYLORI, IHC First AB Age/ Patient Sex Location Account Attending Physician Dawn Cuellar [id number] Jordi Seals MD SPEC NUM: [id number] RECD: 09/10/23 STATUS: LAURA GUERRA NUM: [id number] CHUY: 09/10/[address] [facility] [address]: Jordi Seals MD ENTERED: 09/10/[address] [facility] [address]: [place] TYPE: Surgical DEPT: S ORDERED: HE/4, Gross/Micro L4/2, H PYLORI, IHC First AB ORDERED: HE/4, Gross/Micro L4/2, H PYLORI, IHC First AB Pathological Diagnosis A. Duodenum, Biopsy: No Significant Pathologic Abnormality. B. Stomach, biopsy: No Significant Pathologic Abnormality. - H. Pylori Immunostain Is Negative For H. Pylori Organisms. Clinical Information Weight loss, rule out celiac, rule out H. pylori Gross Description A. Received in formalin labeled with the patient's name, date of and duodenum biopsy rule out celiac are two hill tissues averaging 0.3 x 0.2 x 0.2 cm. Entirely submitted in one cassette labeled A1. B. Received in formalin labeled with the patient's name, date of and gastric biopsy rule out H. pylori are two hill tissues averaging 0.4 x 0.2 x 0.2 cm. Entirely submitted in one cassette labeled B1. Specimen: [id number] Received: 09/10/23 Status: LAURA Guerra Num: [id number] Spec Type: Surgical Subm Dr: Jordi Seals MD Tissues: A Duodenum - Biopsy (DUODENUM BX) B GASTRIC FOR HP (GASTRIC HP) Procedures: HE/4, Gross/Micro L4/2, H PYLORI, IHC First AB Patient: Dawn Cuellar [id number] (Continued) Specimen: [id number] Received: 09/10/23 (Continued) Signed (signature on file) Jen Barcenas MD 09/12/23 2244 Specimen: [id number] Received: 09/10/23 Status: LAURA Guerra Num: [id number] Spec Type: Surgical Subm Dr: Jordi Seals MD Tissues: A Duodenum - Biopsy (DUODENUM BX) B GASTRIC FOR HP (GASTRIC HP) Procedures: HE/4, Gross/Micro L4/2, H PYLORI, IHC First AB Patient: Dawn Cuellar [id number] (Continued) Specimen: [id number] Received: 09/10/23 (Continued) Microscopic Description A. Two H E slides reviewed. The microscopic examination confirms the diagnosis. B. Two H E slides reviewed. The microscopic examination confirms the diagnosis. CPT Codes 37653z8 Specimen: [id number] Received: 09/10/23 Status: LAURA Guerra Num: [id number] Spec Type: Surgical Subm Dr: Jordi Seals MD Tissues: A Duodenum - Biopsy (DUODENUM BX) B GASTRIC FOR HP (GASTRIC HP) Procedures: HE/4, Gross/Micro L4/2, H PYLORI, IHC First AB Patient: Dawn Cuellar [id number] (Continued) Signed (signature on file) Jen Barcenas MD 09/12/23 2244 [facility] Opiates [Presence] in Urine by Screen methodOrdered By: Jordi Seals on 09-10-2023 Opiates Screen Ql (U) Negative Negative [facility] Phencyclidine Screen Ql (U)O rdered By: Jordi Seals on 09-10-2023 Phencyclidine Ql (U) Negative Negative [facility] CT abdomen pelvis w conon CT abdomen pelvis [place] [address] CT Scan Report Signed Patient: Dawn Cuellar MR#: [id number] : 2000 Acct:[id number] Age/Sex: 23 / F ADM Date: 07/27/23 Loc: CT Room: Type: [facility] Attending Dr: Jordi Seals MD Copies to: Jordi Seals MD Ordering Provider: Jordi Seals MD Date of Service: 07/27/23 CT/CT abdomen pelvis w con: Diarrhea;Weight loss CT ABDOMEN AND PELVIS WITH INTRAVENOUS CONTRAST: CLINICAL HISTORY: Diarrhea, mostly after eating. 25 pound weight loss COMPARISON: None TECHNIQUE: Spiral images were obtained through the abdomen and pelvis following the administration of intravenous contrast. This CT exam was performed using one or more following dose reduction techniques: Automated exposure control, adjustment of the mA and/or kV according to patient size, or use of iterative reconstruction technique. FINDINGS: Lung Bases: [Unremarkable.] Organs:Liver gallbladder portal vein spleen pancreas adrenal glands kidneys and aorta all appear unremarkable.[ GI: Stomach is grossly unremarkable. Small bowel appears nondilated. No acute colonic abnormality is seen.[ Pelvis:[Urinary bladder is grossly unremarkable. Uterus is grossly unremarkable. No adnexal mass.] Peritoneum/Retroperitoneum :No free air or free fluid. No lymphadenopathy.[ Abd wall/Bones:Abdominal wall demonstrates no acute findings. Osseous structures demonstrate no acute bony process.[ CT/CT abdomen pelvis w con IMPRESSION: No acute intra-abdominal process is seen. Impression dictated by: Zev Mauricio Jr., D.OSofia07/27/2023 11:06 AM Dictation Location: [place] [address] Transcribed By: [facility] [place] 07/27/23 1106 Dictated By: Zev Mauricio Jr, DO 07/27/23 1104 Signed By: 07/27/23 1106 Normal [facility] HCG ( test) IAriya ott Ql (U)Ordered By: Jordi Seals on 06-03-2023 HCG ( test) Ql (U) Negative [facility] HCG,Urineon 06-03-2023 Beta HCG ( test) Ql (U) Negative Normal [facility] Comment on above: Result Comment: PERF ORMED BY: [facility] [address] [place] [address] PATHOLOGIST [employer] EMBOSSING PRESS OPERATOR KIERSTEN BYNUM M.D. Performed By: #### U HCG ####[facility] [id number] [place] [address] [facility] 06-03-2023 L ------ Specimen: [id number] Received: 06/03/23 Status: LAURA Guerra Num: [id number] Spec Type: Surgical Subm Dr: Jordi Seals MD Tissues: A Colon Biopsy (RANDOM COLON BX) Procedures: JANESSA/Lilly Ferrell/Eduardo L4 Age/ Patient Sex Location Account Attending Physician Dawn Cuellar 23/ [id number] Jordi Selas MD SPEC NUM: [id number] RECD: 06/03/23 STATUS: LAURA GUERRA NUM: [id number] CHUY: 06/03/23- DR: Jordi Seals MD ENTERED: 06/03/[address] [facility] [address]: SPEC TYPE: Surgical DEPT: S ORDERED: HE/2, Gross/Micro L4 ORDERED: HE/2, Gross/Micro L4 Pathological Diagnosis Colon, random biopsy: - Colonic mucosa within normal limits - No evidence of microscopic colitis identified Clinical Information Diarrhea, weight loss, rule out microscopic colitis Gross Description Received in formalin labeled with the patient's name, date of and random colon biopsy are two hill tissues measuring 0.2 x 0.2 x 0.1 cm and 0.4 x 0.3 x 0.2 cm. Entirely submitted in one cassette labeled A1. Microscopic Description Two H E slides reviewed. The microscopic examination confirms the diagnosis. Specimen: [id number] Received: 06/03/23 Status: LAURA Guerra Num: [id number] Spec Type: Surgical Subm Dr: Jordi Seals MD Tissues: A Colon Biopsy (RANDOM COLON BX) Procedures: HE/2, Gross/Micro L4 Patient: Dawn Cuellar [id number] (Continued) Specimen: [id number] Received: 06/03/23 (Continued) Signed (signature on file) Shun Faulkner MD 06/04/23 1432 Specimen: [id number] Received: 06/03/23 Status: LAURA Guerra Num: [id number] Spec Type: Surgical Subm Dr: Jordi Seals MD Tissues: A Colon Biopsy (RANDOM COLON BX) Procedures: Lilly SALAZAR/Eduardo L4 Patient: Dawn Cuellar [id number] (Continued) Specimen: [id number] Received: 06/03/23 (Continued) CPT Codes 85304 Specimen: [id number] Received: 06/03/23-1110 Status: LAURA Guerra Num: [id number] Spec Type: Surgical Subm Dr: Jordi Seals MD Tissues: A Colon Biopsy (RANDOM COLON BX) Procedures: HE/Ghassan, Gross/Micro L4 Patient: Dawn Cuellar [id number] (Continued) Signed (signature on file) Shun Faulkner MD 06/04/23 1432 Normal [facility] C reactive protein [Mass/vol ume] in Serum or PlasmaOrdered By: Jordi Seals on 05-08-2023 CRP [Mass/Vol] < 0.5 mg/dL 0.0-0.5 [facility] C-Reactive Proteinon 023 CRP [Mass/Vol] mg/L Normal 0.0-0.5 [facility] Comment on above: Order Comment: Reaso n for Exam Diarrhea Performed By: #### C USTOOL, TSH3, CRP, ESR, CDT ####[facility] [address]pt[address]#### OPEXAM, CELIAC, ELASTASE STOOL, HIV SCREEN, CALPROTECT ####[facility] , Calprotectin [Mass/mass] in StoolOrdered By: Jordi Seals on 05-08-2023 Calprotectin (Stl) [Mass/Mass] <5 ug/g 0-120 [facility] Comment on above: Concentration Interp retation Follow-Up< 5 - 50 ug/g Normal None>50 -120 ug/g Borderline Re-evaluate in 4-6 weeks >120 ug/g Abnormal Repeat as clinically indicatedPerformed at: BN - [facility] [id number] [place], [place] [id number] Director: Joseph Tang MD, Phone: [phone] Calprotectin, Fecalon 2022 Calprotectin, Fecal <5 Normal 0-120 [facility] Comment on above: Order Comment: Reaso n for Exam Diarrhea Result Comment: Conc entration Interpretation Follow-Up < 5 - 50 ug/g Normal None >50 -120 ug/g Borderline Re-evaluate in 4-6 weeks >120 ug/g Abnormal Repeat as clinically indicated Performed at: BN - [facility] [place] [address] [place], [place] [id number] [employer] Furn[employer] Operator: Joseph Tang MD, Phone: [phone] PERFORMED BY: [facility] [address] [place] [address] PATHOLOGIST [employer] EMBOSSING PRESS OPERATOR KIERSTEN BYNUM M.D. Performed By: #### C USTOOL, TSH3, CRP, ESR, CDT ####[facility] [id number]#### OPEXAM, CELIAC, ELASTASE STOOL, HIV SCREEN, CALPROTECT ####[facility] , Celiacon 05-08-2023 Deamidated Gliadin Abs, IgA 6 Normal 0-19 [facility] Comment on above: Order Comment: Reaso n for Exam Diarrhea Result Comment: Nega tive 0 - 19 Weak Positive 20 - 30 Moderate to Strong Positive >30 Performed By: #### C USTOOL, TSH3, CRP, ESR, CDT ####[address] [address] [facility]#### OPEXAM, CELIAC, ELASTASE STOOL, HIV SCREEN, CALPROTECT ####[facility] , Deamidated Gliadin Abs, IgG 3 Normal 0-19 [facility] Comment on above: Order Comment: Reaso n for Exam Diarrhea Result Comment: Nega tive 0 - 19 Weak Positive 20 - 30 Moderate to Strong Positive >30 Performed By: #### C USTOOL, TSH3, CRP, ESR, CDT ####[address]#### OPEXAM, CELIAC, ELASTASE STOOL, HIV SCREEN, CALPROTECT ####[facility] , Endomysial Antibody IgA Negative Normal Negative [facility] Comment on above: Order Comment: Reaso n for Exam Diarrhea Performed By: #### C USTOOL, TSH3, CRP, ESR, CDT ####[address]#### OPEXAM, CELIAC, ELASTASE STOOL, HIV SCREEN, CALPROTECT ####[facility] , Immunoglobulin A, Qn, Serum 260 mg/dL Normal 87-352 [facility] Comment on above: Order Comment: Reaso n for Exam Diarrhea Result Comment: Perf ormed at: CB - [facility] [address] [id number] [employer] Furn[employer] Operator: Mendel Rubin PhD, Phone: [phone] Performed By: #### C USTOOL, TSH3, CRP, ESR, CDT ####[place] [id number] [facility]#### OPEXAM, CELIAC, ELASTASE STOOL, HIV SCREEN, CALPROTECT ####[facility] , T-Transglutaminase (tTG) IgA <2 Normal 0-3 [facility] Comment on above: Order Comment: Reaso n for Exam Diarrhea Result Comment: Nega tive 0 - 3 Weak Positive 4 - 10 Positive >10 Tissue Transglutaminase (tTG) has been identified as the endomysial antigen. Studies have demonstr- ated that endomysial IgA antibodies have over 99% specificity for gluten sensitive enteropathy. Performed By: #### C USTOOL, TSH3, CRP, ESR, CDT ####[place] [id number] [address]#### OPEXAM, CELIAC, ELASTASE STOOL, HIV SCREEN, CALPROTECT ####[facility] , T-Transglutaminase (tTG) IgG <2 Normal 0-5 [facility] Comment on above: Order Comment: Reaso n for Exam Diarrhea Result Comment: Nega tive 0 - 5 Weak Positive 6 - 9 Positive >9 Performed By: #### C USTOOL, TSH3, CRP, ESR, CDT ####[address]#### OPEXAM, CELIAC, ELASTASE STOOL, HIV SCREEN, CALPROTECT ####[facility] , Clostridioides difficile tox in B tcdB gene [Presence] in Stool by OMAIRA with probe deteOrdered By: Jordi Seals on 05-08-2023 C. difficile toxin B tcdB gene OMAIRA+probe Ql (Stl) Negative Negative [facility] Comment on above: Testing performed by RT-PCR Clostridium Difficileon 04-11 Clostridium Difficile Negative Normal Negative [facility] Comment on above: Order Comment: Reaso n for Exam Diarrhea Result Comment: Test ing performed by RT-PCR PERFORMED BY: [facility] [address] [place] [address] PATHOLOGIST [employer] EMBOSSING PRESS OPERATOR KIERSTEN BYNUM M.D. Performed By: #### C USTOOL, TSH3, CRP, ESR, CDT ####[place] [address] [place] [address] [place]#### OPEXAM, CELIAC, ELASTASE STOOL, HIV SCREEN, CALPROTECT ####[facility] , Elastase.pancreatic [Mass/ma ss] in StoolOrdered By: Imad Bozena on 05-08-2023 Elastase.pancreatic (Stl) [Mass/Mass] 284 >200 [facility] Comment on above: Result Units: ug Bambi st./g Severe Pancreatic Insufficiency: <100 Moderate Pancreatic Insufficiency: 100 - 200 Normal: >200Performed at: [address] [id number] Director: Joseph Tang MD, Phone: [phone] Erythrocyte Sedimentation Ra su 05-08-2023 ESR (Bld) [Velocity] 3 mm/h Normal 0- [facility] Comment on above: Order Comment: Reaso n for Exam Diarrhea Result Comment: PERF ORMED BY: [address] [place] [address] PATHOLOGIST [employer] EMBOSSING PRESS OPERATOR KIERSTEN BYNUM M.D. Performed By: #### C USTOOL, TSH3, CRP, ESR, CDT ####[facility] [id number]#### OPEXAM, CELIAC, ELASTASE STOOL, HIV SCREEN, CALPROTECT ####[facility] , Erythrocyte sedimentation ra te by Photometric methodOrdered By: Jordi Seals on 05-08-2023 ESR Photometric method (Bld) [Velocity] 3 mm/hr 0- [facility] HIV 1/O/2 Antigen/Antibodyon 05-08-2023 HIV Screen 4th Generation Non-Reactive Normal Non Reactive [facility] Comment on above: Order Comment: Reaso n for Exam Diarrhea Result Comment: HIV Negative HIV-1/HIV-2 antibodies and HIV-1 p24 antigen were NOT detected. There is no laboratory evidence of HIV infection. Performed at: [address] [id number] [employer] Operator: Mendel Rubin PhD, Phone: [phone] PERFORMED BY: [place] [address] PATHOLOGIST [employer] EMBOSSING PRESS OPERATOR KIERSTEN BYNUM M.D. Performed By: #### C USTOOL, TSH3, CRP, ESR, CDT ####[facility] [id number] [address]#### OPEXAM, CELIAC, ELASTASE STOOL, HIV SCREEN, CALPROTECT ####[facility] , HIV 1 and HIV-2 antibody ass ay with HIV-1 p24 antigen detectionOrdered By: Jordi Seals on 05-08-2023 HIV 1+2 Ab+HIV1 p24 Ag IA Ql Non-Reactive Non Reactive [facility] Comment on above: HIV NegativeHIV-1/HI V-2 antibodies and HIV-1 p24 antigen were NOTdetected. There is no laboratory evidence of HIV infection.Performed at: [employer] [address] [id number] Director: Mendel Rubin PhD, Phone: [phone] IgA [Mass/volume] in Serum o r PlasmaOrdered By: Jordi Seals on 05-08-2023 IgA [Mass/Vol] 260 mg/dL 87-352 [facility] Comment on above: Performed at: [facility] [address] [id number] Director: Mendel Rubin PhD, Phone: [phone] No Panel InformationOrdered By: Jordi Seals on 05-08-2023 Endomysial IgA Antibody Negative Negative F [facility] Ova and Parasite Result 1 N/A [facility] Ova and Parasite Result 1 [facility] OVA AND PARASITEon 3 OVA AND PARASITE Reason for Exam Diar marah Stool Reason for Exam: Diarrhea : Stool Final report These results were obtained using wet preparation(s) and trichrome stained smear. This test does not include testing for Cryptosporidium parvum, Cyclospora, or Microsporidia. Reason for Exam Diarrhea Stool Reason for Exam: Diarrhea : Stool No ova, cysts, or parasites seen. One negative specimen does not rule out the possibility of a parasitic infection. Performed at: [employer] [id number] [employer] Furn[employer] Operator: Mendel Rubin PhD, Phone: [phone] PERFORMED BY: [address] [place] [address] PATHOLOGIST [employer] EMBOSSING PRESS OPERATOR KIERSTEN BYNUM M.D. Normal [facility] Comment on above: Performed By: #### C USTOOL, TSH3, CRP, ESR, CDT ####[address]#### OPEXAM, CELIAC, ELASTASE STOOL, HIV SCREEN, CALPROTECT ####[facility] , Ova or parasites identificat ionOrdered By: Jordi Seals on 05-08-2023 Ova and parasites identified LM Nom (Unsp spec) N/A [facility] Ova and parasites identified LM Nom (Unsp spec) [facility] Pancreatic Elastase, Stoolon 05-08-2023 Pancreatic Elastase, Stool 284 Normal >200 [facility] Comment on above: Order Comment: Reaso n for Exam Diarrhea Result Comment: Resu lt Units: ug Elast./g Severe Pancreatic Insufficiency: <100 Moderate Pancreatic Insufficiency: 100 - 200 Normal: >200 Performed at: [facility] [id number] [employer] Furn[employer] Operator: Joseph Tang MD, Phone: [phone] PERFORMED BY: [address] [place] [address] PATHOLOGIST [employer] EMBOSSING PRESS OPERATOR KIERSTEN BYNUM M.D. Performed By: #### C USTOOL, TSH3, CRP, ESR, CDT ####[address]#### OPEXAM, CELIAC, ELASTASE STOOL, HIV SCREEN, CALPROTECT ####[facility] , Serum gliadin peptide IgA an tibody assay (units/volume)Ordered By: Jordi Seals on 05-08-2023 Gliadin peptide IgA Qn (S) 6 units 0-19 [facility] Comment on above: Negative 0 - 19 Weak Positive 20 - 30 Moderate to Strong Positive >30 Serum gliadin peptide IgG an tibody assay (units/volume)Ordered By: Jordi Seals on 05-08-2023 Gliadin peptide IgG Qn (S) 3 units 0-19 [facility] Comment on above: Negative 0 - 19 Weak Positive 20 - 30 Moderate to Strong Positive >30 Serum tissue transglutaminas e (tTG) IgA antibody assay (units/volume)Ordered By: Imad Asaad on 05-08-2023 tTG IgA Qn (S) <2 U/mL 0-3 [facility] Comment on above: Negative 0 - 3 Weak Positive 4 - 10 Positive >10 Tissue Transglutaminase (tTG) has been identified as the endomysial antigen. Studies have demonstr- ated that endomysial IgA antibodies have over 99% specificity for gluten sensitive enteropathy. Serum tissue transglutaminas e (tTG) IgG antibody assay (units/volume)Ordered By: Imad Asaad on 05-08-2023 tTG IgG Qn (S) <2 U/mL 0-5 [facility] Comment on above: Negative 0 - 5 Weak Positive 6 - 9 Positive >9 Stool Cultureon 05-08-2023 Stool culture Reason for Exam Diar marah Stool Reason for Exam: Diarrhea : Stool Negative for Shiga Toxin 1 Negative for Shiga Toxin 2 -- A negative Shiga Toxin result may occur if the antigen level in the specimen is below the detection limit of the assay. Stool culture results No Salmonella, Shigella, Campy or E. coli 0157:H7 Isolated PERFORMED BY: [facility] [address] [facility] [place] [id number] PATHOLOGIST [employer] EMBOSSING PRESS OPERATOR KIERSTEN BYNUM M.D. Normal [facility] Comment on above: Performed By: #### C USTOOL, TSH3, CRP, ESR, CDT ####[facility] [id number]#### OPEXAM, CELIAC, ELASTASE STOOL, HIV SCREEN, CALPROTECT ####[facility] , Stool ova and parasites iden tification by concentrationOrdered By: Jordi Seals on 05-08-2023 Ova and parasites identified Concentration Nom (Stl) N/A [facility] Stool ova and parasites iden tification by trichrome stainOrdered By: Imcher Seals on 05-08-2023 Ova and parasites identified Trichrome stain Nom (l) N/A [facility] Thyroid Stimulating Hormoneo n 05-08-2023 TSH Qn 0.49 m[IU]/L Normal 0.45-5.33 [facility] Comment on above: Order Comment: Reaso n for Exam Diarrhea Result Comment: PERF ORMED BY: [facility] [address] [place] [address] PATHOLOGIST [employer] EMBOSSING PRESS OPERATOR KIERSTEN BYNUM M.D. Performed By: #### C USTOOL, TSH3, CRP, ESR, CDT ####[facility] [id number]#### OPEXAM, CELIAC, ELASTASE STOOL, HIV SCREEN, CALPROTECT ####[facility] , Thyrotropin [Units/volume] i n Serum or PlasmaOrdered By: Jordi Seals on 05-08-2023 TSH Qn 0.49 m[IU]/L 0.45-5.33 [facility] Dipstick and Microscopicon 0 01-18-2023 Appearance (U) Clear Normal Clear [facility] Comment on above: Order Comment: Name Collection Type:: Clean-Voided Midstream Performed By: #### U HCG, ADDONUAPLUS #### [facility] [address] [place] [address] [place] Bacteria,Urine None Seen Normal None Seen [facility] Comment on above: Order Comment: Name Collection Type:: Clean-Voided Midstream Performed By: #### U HCG, ADDONUAPLUS #### [facility] [address] [place] [address] [place] Bilirubin,Urine Negative Normal Negative [facility] Comment on above: Order Comment: Name Collection Type:: Clean-Voided Midstream Performed By: #### U HCG, ADDONUAPLUS #### [facility] [address] [place] [address] [place] Color (U) Yellow Normal Yellow [facility] Comment on above: Order Comment: Name Collection Type:: Clean-Voided Midstream Performed By: #### U HCG, ADDONUAPLUS #### [facility] [address] [place] [address] [place] Glucose Ql (U) Normal Normal Normal [facility] Comment on above: Order Comment: Name Collection Type:: Clean-Voided Midstream Performed By: #### U HCG, ADDONUAPLUS #### [facility] [address] [place] [address] [place] Hyaline Casts,Urine 0-8 Normal 0-8 [facility] Comment on above: Order Comment: Name Collection Type:: Clean-Voided Midstream Performed By: #### U HCG, ADDONUAPLUS #### [facility] [address] [place] [address] Ketones Ql (U) Negative Normal Negative [facility] Comment on above: Order Comment: Name Collection Type:: Clean-Voided Midstream Performed By: #### U HCG, ADDONUAPLUS #### [facility] [address] [place] [address] [place] Leukocyte esterase Test strip Ql (U) 1+ High Negative [facility] Comment on above: Order Comment: Name Collection Type:: Clean-Voided Midstream Performed By: #### U HCG, ADDONUAPLUS #### [facility] [address] [place] [address] [place] Nitrite,Urine Negative Normal Negative [facility] Comment on above: Order Comment: Name Collection Type:: Clean-Voided Midstream Performed By: #### U HCG, ADDONUAPLUS #### [facility] [address] [place] [address] [place] Occult Blood,Urine 3+ High Negative [facility] Comment on above: Order Comment: Name Collection Type:: Clean-Voided Midstream Performed By: #### U HCG, ADDONUAPLUS #### [facility] [address] [place] [address] [place] pH (U) 6.0 [pH] Normal 5.0-9.0 [facility] Comment on above: Order Comment: Name Collection Type:: Clean-Voided Midstream Performed By: #### U HCG, ADDONUAPLUS #### [facility] [address] [place] [address] Protein,Urine Negative Normal Negative [facility] Comment on above: Order Comment: Name Collection Type:: Clean-Voided Midstream Performed By: #### U HCG, ADDONUAPLUS #### [facility] [address] [place] [address] RBC,Urine 50-100 High 0-4 [facility] Comment on above: Order Comment: Name Collection Type:: Clean-Voided Midstream Performed By: #### U HCG, ADDONUAPLUS #### [address] Specificy [place],Urine 1.009 Normal 1.00 1-1.03 0 [facility] Comment on above: Order Comment: Name Collection Type:: Clean-Voided Midstream Performed By: #### U HCG, ADDONUAPLUS #### [address] Squamous Epithelial Cell,Urine 0-1 Normal 0-2 [facility] Comment on above: Order Comment: Name Collection Type:: Clean-Voided Midstream Performed By: #### U HCG, ADDONUAPLUS #### [address] Urobilinogen,Urine Normal Normal Normal [facility] Comment on above: Order Comment: Name Collection Type:: Clean-Voided Midstream Performed By: #### U HCG, ADDONUAPLUS #### [facility] [address] [place] [address] [place] WBC,Urine 3-4 Normal 0-4 [facility] Comment on above: Order Comment: Name Collection Type:: Clean-Voided Midstream Performed By: #### U HCG, ADDONUAPLUS #### [facility] [address] [place] [address] [place] HCG,Urineon 01-18-2023 Beta HCG ( test) Ql (U) Negative Normal [facility] Comment on above: Order Comment: Name Collection Type:: Clean-Voided Midstream Result Comment: PERF ORMED BY: [place] [address] PATHOLOGIST [employer]MB[employer] PRESS OPERATOR KIERSTEN BYNUM M.D. Performed By: #### U HCG, ADDONUAPLUS #### [address] Alanine aminotransferase [En zymatic activity/volume] in Serum or PlasmaOrdered By: Vivian Zamudioore on 12-29-2022 ALT [Catalytic activity/Vol] 9 U/L 7-52 [facility] Albumin [Mass/volume] in Ser um or Plasma by Bromocresol green (BCG) dye binding methoOrdered By: Vivian Zamudioore on 12-29-2022 Albumin BCG dye [Mass/Vol] 4.9 g/dL 3.5-5.7 [facility] Alkaline phosphatase [Enzyma tic activity/volume] in Serum or PlasmaOrdered By: Vivian [facility] on 12-29-2022 ALP [Catalytic activity/Vol] 60 U/L 34-104 [facility] Aspartate aminotransferase [ Enzymatic activity/volume] in Serum or PlasmaOrdered By: [facility] AST [Catalytic activity/Vol] 14 U/L 13-39 [facility] Automated erythrocytes count in urine sediment (number/area)Ordered By: Vivian Nieto on 12-29-2022 RBC Auto (Urine sed) [#/Area] 1-2 [HPF] 0-4 [facility] Automated leukocytes count i n urine sediment (number/area)Ordered By: Vivianshad Nieto on 12-29-2022 WBC Auto (Urine sed) [#/Area] 20-49 [HPF] 0-4 [facility] Automated urine hyaline cast s count (number/volume)Ordered By: Vivian Nieto on 12-29-2022 Hyaline casts Auto (U) [#/Vol] 10-19 [LPF] 0-1 [facility] Basophils Auto (Bld) [#/Vol] Ordered By: Vivian Zamudioore on 12-29-2022 Basophils (Bld) [#/Vol] 0.0 10*3/uL 0.0-0.2 [facility] Basophils/100 WBC Auto (Bld) Ordered By: Vivian Nieto on 12-29-2022 Basophils/100 WBC (Bld) 0.4 % . [facility] Bilirubin Test strip Ql (U)O rdered By: Vivian Nieto on 12-29-2022 Bilirubin Ql (U) Negative Negative [facility] Bilirubin.total [Mass/volume ] in Serum or PlasmaOrdered By: Vivian Zamudioore on 12-29-2022 Bilirubin [Mass/Vol] 0.6 mg/dL 0.3-1.0 [facility] C reactive protein [Mass/vol ume] in Serum or PlasmaOrdered By: Vivian Nieto on 12-29-2022 CRP [Mass/Vol] 3.1 mg/dL 0.0-0.5 [facility] C-Reactive Proteinon 023 C-Reactive Protein 3.1 mg/dL High 0.0-0.5 [facility] Comment on above: Result Comment: PERF ORMED BY: [place] [address] PATHOLOGIST [employer] PRESS OPERATOR KIERSTEN BYNUM M.D. Performed By: #### U HCG, ADDONUAPLUS #### [address] Calcium [Mass/volume] in Ser um or PlasmaOrdered By: Vivian Nieto on 12-29-2022 Calcium [Mass/Vol] 10.0 mg/dL 8.6-10.3 [facility] Carbon dioxide, total [Moles /volume] in Serum or PlasmaOrdered By: Vivian Nieto on 12-29-2022 CO2 [Moles/Vol] 26.6 mmol/L 21.0-31.0 [facility] Casts typing in urine sedime nt by light microscopyOrdered By: PROVIDER TEMP on 12-29-2022 Casts LM Nom (Urine sed) N/A [facility] Chloride [Moles/volume] in S isabel or PlasmaOrdered By: Vivian Zamudioore on 12-29-2022 Chloride [Moles/Vol] 103 mmol/L 98-107 [facility] Color Auto (U)Ordered By: Radha Nieto on 12-29-2022 Color (U) Dark yellow Yellow [facility] Complete Blood Count Auto Di ffon 12-29-2022 Basophils (Bld) [#/Vol] 0.0 10*3/uL Normal 0.0-0.2 [facility] Comment on above: Result Comment: PERF ORMED BY: [place] [address] PATHOLOGIST [employer] PRESS OPERATOR KIERSTEN BYNUM M.D. Performed By: #### C BC, CMP #### [facility] [address] [place] [address] [place] Basophils/100 WBC (Bld) 0.4 % Normal . [facility] Comment on above: Performed By: #### C BC, CMP #### [facility] [address] [place] [address] [place] Eosinophils (Bld) [#/Vol] 0.3 10*3/uL Normal 0.0-0.45 [facility] Comment on above: Performed By: #### C BC, CMP #### [facility] [address] [place] [address] [place] Eosinophils/100 WBC (Bld) 3.2 % Normal . [facility] Comment on above: Performed By: #### C BC, CMP #### [facility] [address] [place] [address] [place] Erythrocyte distribution width (RBC) [Ratio] 14.9 % Normal 11.9-15.3 [facility] Comment on above: Performed By: #### C BC, CMP #### [facility] [address] [place] [address] [place] Hematocrit (Bld) [Volume fraction] 39.6 % Normal 34.0-46.4 [facility] Comment on above: Performed By: #### C BC, CMP #### [facility] [address] Hemoglobin (Bld) [Mass/Vol] 13.2 g/dL Normal 11.8-15.4 [facility] Comment on above: Performed By: #### C BC, CMP #### [facility] [address] [place] [address] [place] Lymphocytes (Bld) [#/Vol] 1.2 10*3/uL Normal 1.00-4.8 [facility] Comment on above: Performed By: #### C BC, CMP #### [facility] [address] [place] [id number] [place] Lymphocytes/100 WBC (Bld) 11.9 % Normal . [facility] Comment on above: Performed By: #### C BC, CMP #### [facility] [address] [place] [address] [place] MCH (RBC) [Entitic mass] 27.5 pg Normal 24.7-34.3 [facility] Comment on above: Performed By: #### C BC, CMP #### [facility] [address] [place] [address] [place] MCV (RBC) [Entitic vol] 82.6 fL Normal 80-100 [facility] Comment on above: Performed By: #### C BC, CMP #### [facility] [address] Mean Corpuscular HGB Conc 33.3 g/dL Normal 32.0-35.0 [facility] Comment on above: Performed By: #### C BC, CMP #### [facility] [address] [place] [address] [place] Monocytes (Bld) [#/Vol] 0.5 10*3/uL Normal 0.0-0.8 [facility] Comment on above: Performed By: #### C BC, CMP #### [facility] [address] [place] [id number] [place] Monocytes/100 WBC (Bld) 5.1 % Normal . [facility] Comment on above: Performed By: #### C BC, CMP #### [facility] [address] [place] [id number] [place] Neutrophils (Bld) [#/Vol] 7.8 10*3/uL High 1.8-7.7 [facility] Comment on above: Performed By: #### C BC, CMP #### [facility] [address] Neutrophils/100 WBC (Bld) 79.4 % Normal . [facility] Comment on above: Performed By: #### C BC, CMP #### [facility] [address] NRBC% 0.1 /100{WBC} Normal 0-0.5 [facility] Comment on above: Performed By: #### C BC, CMP #### [facility] [address] Platelet mean volume (Bld) [Entitic vol] 7.7 fL Normal 6.3-10.7 [facility] Comment on above: Performed By: #### C BC, CMP #### [facility] [address] Platelets (Bld) [#/Vol] 305 10*3/uL Normal 150-450 [facility] Comment on above: Performed By: #### C BC, CMP #### [facility] [address] RBC (Bld) [#/Vol] 4.79 10*6/uL Normal 3.60-5.00 [facility] Comment on above: Performed By: #### C BC, CMP #### [facility] [address] [place] [id number] [facility] WBC (Bld) [#/Vol] 9.8 10*3/uL Normal 3.8-11.6 [facility] Comment on above: Performed By: #### C BC, CMP #### [facility] [address] Comprehensive Metabolic Pane rohit 12-29-2022 Albumin [Mass/Vol] 4.9 g/dL Normal 3.5-5.7 [facility] Comment on above: Performed By: #### C BC, CMP #### [address] Albumin/Globulin [Mass ratio] 1.5 {ratio} Normal [facility] Comment on above: Performed By: #### C BC, CMP #### [facility] [address] ALP [Catalytic activity/Vol] 60 U/L Normal 34-104 [facility] Comment on above: Performed By: #### C BC, CMP #### [facility] [address] [place] [id number] [facility] ALT [Catalytic activity/Vol] 9 U/L Normal 7-52 [facility] Comment on above: Performed By: #### C BC, CMP #### [facility] [address] Anion gap [Moles/Vol] 14.0 mmol/L Normal 6.0-15.0 [facility] Comment on above: Performed By: #### C BC, CMP #### [facility] [address] AST [Catalytic activity/Vol] 14 U/L Normal 13-39 [facility] Comment on above: Performed By: #### C BC, CMP #### [facility] [address] Bilirubin [Mass/Vol] 0.6 mg/dL Normal 0.3-1.0 [facility] Comment on above: Performed By: #### C BC, CMP #### [facility] [address] Calcium [Mass/Vol] 10.0 mg/dL Normal 8.6-10.3 [facility] Comment on above: Performed By: #### C BC, CMP #### [facility] [address] [place] [address] [place] Chloride [Moles/Vol] 103 mmol/L Normal 98-107 [facility] Comment on above: Performed By: #### C BC, CMP #### [facility] [address] CO2 [Moles/Vol] 26.6 mmol/L Normal 21.0-31.0 [facility] Comment on above: Performed By: #### C BC, CMP #### [address] Creatinine [Mass/Vol] 0.55 mg/dL Low 0.60-1.20 [facility] Comment on above: Performed By: #### C BC, CMP #### [address] Creatinine Clr Calc Pharmacy 123.12 Normal [facility] Comment on above: Result Comment: PERF ORMED BY: [place] [address] PATHOLOGIST [employer]MB[employer] PRESS OPERATOR KIERSTEN BYNUM M.D. Performed By: #### C BC, CMP #### [address] GFR/1.73 sq M.predicted MDRD (S/P/Bld) [Vol rate/Area] mL/min/{1.73_m2} [facility] Comment on above: Performed By: #### C BC, CMP #### [address] Globulin (S) [Mass/Vol] 3.3 g/dL Normal [facility] Comment on above: Performed By: #### C BC, CMP #### [address] Glucose [Mass/Vol] 75 mg/dL Normal 70-100 [facility] Comment on above: Result Comment: [place] Glucose Reference Range is dependent on time and content of last meal. Glucose of more than 200 mg/dL in a nonstressed, ambulatory subject supports the diagnosis of Diabetes Mellitus. ADA recommended reference range Performed By: #### C BC, CMP #### [address] Potassium [Moles/Vol] 3.6 mmol/L Normal 3.5-5.1 [facility] Comment on above: Performed By: #### C BC, CMP #### [address] Protein [Mass/Vol] 8.2 g/dL Normal 6.4-8.9 [facility] Comment on above: Performed By: #### C BC, CMP #### [facility] [address] [place] [address] [place] Sodium [Moles/Vol] 140 mmol/L Normal 136-145 [facility] Comment on above: Performed By: #### C BC, CMP #### [facility] [address] [place] [address] [facility] Urea nitrogen [Mass/Vol] 7 mg/dL Normal 7-25 [facility] Comment on above: Performed By: #### C BC, CMP #### [facility] [address] [place] [id number] [place] Creatinine [Mass/volume] in Serum or PlasmaOrdered By: Vivian Nieto on 12-29-2022 Creatinine [Mass/Vol] 0.55 mg/dL 0.60-1.20 [facility] Dipstick and Microscopicon 0 12-29-2022 Appearance (U) Cloudy Critically abnormal Clear [facility] Comment on above: Order Comment: Name Collection Type:: Voided Performed By: #### A DDONUAPLUS, UHCG, CUU ####[facility] [place] [address] [place] Bacteria,Urine None Seen Normal None Seen [facility] Comment on above: Order Comment: Name Collection Type:: Voided Performed By: #### A DDONUAPLUS, UHCG, CUU ####[facility] [place] [address] [place] Bilirubin,Urine Negative Normal Negative [facility] Comment on above: Order Comment: Name Collection Type:: Voided Performed By: #### A DDONUAPLUS, UHCG, CUU ####[facility] [place] [address] [place] Color (U) Dark Yellow Critically abnormal Yellow [facility] Comment on above: Order Comment: Name Collection Type:: Voided Performed By: #### A DDONUAPLUS, UHCG, CUU ####[facility] [place] [address] [place] Glucose Ql (U) Normal Normal Normal [facility] Comment on above: Order Comment: Name Collection Type:: Voided Performed By: #### A DDONUAPLUS, UHCG, CUU ####[address] [address] [place] Hyaline Casts,Urine 10-19 High 0-1 [facility] Comment on above: Order Comment: Name Collection Type:: Voided Performed By: #### A DDONUAPLUS, UHCG, CUU ####[address] [address] [facility] Ketones Ql (U) 3+ High Negative [facility] Comment on above: Order Comment: Name Collection Type:: Voided Performed By: #### A DDONUAPLUS, UHCG, CUU ####[address] [address] [facility] Leukocyte esterase Test strip Ql (U) 2+ High Negative [facility] Comment on above: Order Comment: Name Collection Type:: Voided Performed By: #### A DDONUAPLUS, UHCG, CUU ####[address] [address] [facility] Nitrite,Urine Negative Normal Negative [facility] Comment on above: Order Comment: Name Collection Type:: Voided Performed By: #### A DDONUAPLUS, UHCG, CUU ####[address] [address] [facility] Occult Blood,Urine Negative Normal Negative [facility] Comment on above: Order Comment: Name Collection Type:: Voided Performed By: #### A DDONUAPLUS, UHCG, CUU ####[address] [address] [facility] pH (U) 6.5 [pH] Normal 5.0-9.0 [facility] Comment on above: Order Comment: Name Collection Type:: Voided Performed By: #### A DDONUAPLUS, UHCG, CUU ####[address] [address] [facility] Protein (U) [Mass/Vol] 30 mg/dL High Negative [facility] Comment on above: Order Comment: Name Collection Type:: Voided Performed By: #### A DDONUAPLUS, UHCG, CUU ####[place] [address] [place] [address] [facility] RBC,Urine 1-2 Normal 0-4 [facility] Comment on above: Order Comment: Name Collection Type:: Voided Performed By: #### A DDONUAPLUS, UHCG, CUU ####[address] [address] [facility] Specificy [place],Urine 1.030 Normal 1.00 1-1.03 0 [facility] Comment on above: Order Comment: Name Collection Type:: Voided Performed By: #### A DDONUAPLUS, UHCG, CUU ####[address] [address] [facility] Squamous Epithelial Cell,Urine 10-19 High 0-2 [facility] Comment on above: Order Comment: Name Collection Type:: Voided Performed By: #### A DDONUAPLUS, UHCG, CUU ####[address] [address] [facility] Urobilinogen,Urine Normal Normal Normal [facility] Comment on above: Order Comment: Name Collection Type:: Voided Performed By: #### A DDONUAPLUS, UHCG, CUU ####[address] [address] [facility] WBC,Urine 20-49 High 0-4 [facility] Comment on above: Order Comment: Name Collection Type:: Voided Performed By: #### A DDONUAPLUS, UHCG, CUU ####[address] [address] [facility] Eosinophils Auto (Bld) [#/Vo l]Ordered By: Vivian Bullimore on 12-29-2022 Eosinophils (Bld) [#/Vol] 0.3 10*3/uL 0.0-0.45 [facility] Eosinophils/100 WBC Auto (Bl d)Ordered By: Vivian Bullimore on 12-29-2022 Eosinophils/100 WBC (Bld) 3.2 % . [facility] Erythrocyte Sedimentation Ra su 12-29-2022 ESR (Bld) [Velocity] 21 mm/h High 0- [facility] Comment on above: Result Comment: PERF ORMED BY: [place] [address] PATHOLOGIST [employer] PRESS OPERATOR KIERSTEN BYNUM M.D. Performed By: #### U HCG, ADDONUAPLUS #### [address] Erythrocyte distribution wid th Auto (RBC) [Ratio]Ordered By: Vivian Bullimore on 12-29-2022 Erythrocyte distribution width (RBC) [Ratio] 14.9 % 11.9-15.3 [facility] Erythrocyte sedimentation ra te by Photometric methodOrdered By: Vivianshad Tejadaimdebra on 12-29-2022 ESR Photometric method (Bld) [Velocity] 21 mm/hr 0- [facility] Globulin Calc (S) [Mass/Vol] Ordered By: Vivianshad Nieto on 12-29-2022 Globulin (S) [Mass/Vol] 3.3 g/dL [facility] Glucose [Mass/volume] in Ser um or PlasmaOrdered By: [facility] on 12-29-2022 Glucose [Mass/Vol] 75 mg/dL 70-100 [facility] Comment on above: ADA recommended refe rence rangeRandom Glucose Reference Range is dependent on time and content of last meal. Glucose of more than 200 mg/dL in a nonstressed, ambulatory subject supports the diagnosis of Diabetes Mellitus. HCG ( test) [place] o[place] Ql (U)Ordered By: PROVIDER TEMP on 12-29-2022 HCG ( test) Ql (U) Negative [facility] HCG,Urineon 12-29-2022 Beta HCG ( test) Ql (U) Negative Normal [facility] Comment on above: Order Comment: Name Collection Type:: Voided Result Comment: PERF ORMED BY: [place] [address] PATHOLOGIST [employer] OPERATOR KIERSTEN BYNUM M.D. Performed By: #### A DDONUAPLUS, [facility], [facility] ####[facility] [id number] [place] [id number] [facility] Hematocrit Auto (Bld) [Volum e fraction]Ordered By: Vivian Nieto on 12-29-2022 Hematocrit (Bld) [Volume fraction] 39.6 % 34.0-46.4 [facility] Hemoglobin [Mass/volume] in BloodOrdered By: Vivian Bullimore on 12-29-2022 Hemoglobin (Bld) [Mass/Vol] 13.2 g/dL 11.8-15.4 [facility] Ketones Auto test strip (U) [Mass/Vol]Ordered By: Vivian Bullimore on 12-29-2022 Ketones (U) [Mass/Vol] 3+ Negative [facility] Leukocytes [#/volume] correc michael for nucleated erythrocytes in Blood by Automated counOrdered By: Vivian Bullimore on 12-29-2022 WBC corrected for nucl RBC Auto (Bld) [#/Vol] 9.8 10*3/uL 3.8-11.6 [facility] Lymphocytes Auto (Bld) [#/Vo l]Ordered By: Vivian Bullimore on 12-29-2022 Lymphocytes (Bld) [#/Vol] 1.2 10*3/uL 1.00-4.8 [facility] Lymphocytes/100 WBC Auto (Bl d)Ordered By: Vivian Bullimore on 12-29-2022 Lymphocytes/100 WBC (Bld) 11.9 % . [facility] MCH Auto (RBC) [Entitic mass ]Ordered By: Vivian Bullimore on 12-29-2022 MCH (RBC) [Entitic mass] 27.5 pg 24.7-34.3 [facility] MCHC Auto (RBC) [Mass/Vol]Or dered By: Vivian Bullimore on 12-29-2022 MCHC (RBC) [Mass/Vol] 33.3 g/dL 32.0-35.0 [facility] MCV Auto (RBC) [Entitic vol] Ordered By: Vivian Bullimore on 12-29-2022 MCV (RBC) [Entitic vol] 82.6 fL 80-100 [facility] Monocytes Auto (Bld) [#/Vol] Ordered By: Vivian Bullimore on 12-29-2022 Monocytes (Bld) [#/Vol] 0.5 10*3/uL 0.0-0.8 [facility] Monocytes/100 WBC Auto (Bld) Ordered By: Vivian Bullimore on 12-29-2022 Monocytes/100 WBC (Bld) 5.1 % . [facility] Neutrophils Auto (Bld) [#/Vo l]Ordered By: Vivian Bullimore on 12-29-2022 Neutrophils (Bld) [#/Vol] 7.8 10*3/uL 1.8-7.7 [facility] Neutrophils/100 WBC Auto (Bl d)Ordered By: Vivian Bullimore on 12-29-2022 Neutrophils/100 WBC (Bld) 79.4 % . [facility] Nitrite Test strip Ql (U)Ord ered By: Vivian Bullimore on 12-29-2022 Nitrite Ql (U) Negative Negative [facility] No Panel InformationOrdered By: Vivian Bullimore on 12-29-2022 Estimated GFR (CKD-EPI) > 60.0 mL/Min [facility] Creatinine Clearance (Chem 123.12 [facility] Nucleated erythrocytes [Pres ence] in Blood by Automated countOrdered By: Vivian Bullimore on 12-29-2022 Nucleated RBC Auto Ql (Bld) 0.1 /100{WBC} 0-0.5 [facility] Platelet mean volume Auto (B ld) [Entitic vol]Ordered By: Vivian Bullimore on 12-29-2022 Platelet mean volume (Bld) [Entitic vol] 7.7 fL 6.3-10.7 [facility] Platelets Auto (Bld) [#/Vol] Ordered By: Vviian Bullimore on 12-29-2022 Platelets (Bld) [#/Vol] 305 10*3/uL 150-450 [facility] Potassium [Moles/volume] in Serum or PlasmaOrdered By: Vivian Bullimore on 12-29-2022 Potassium [Moles/Vol] 3.6 mmol/L 3.5-5.1 [facility] Protein Auto test strip (U) [Mass/Vol]Ordered By: Vivian Bullimore on 12-29-2022 Protein (U) [Mass/Vol] 30 mg/dL Negative Fi [facility] Protein [Mass/volume] in Ser um or PlasmaOrdered By: Vivian Bullimore on 12-29-2022 Protein [Mass/Vol] 8.2 g/dL 6.4-8.9 [facility] RBC Auto (Bld) [#/Vol]Ordere d By: Vivian Bullimore on 12-29-2022 RBC (Bld) [#/Vol] 4.79 10*6/uL 3.60-5.00 [facility] Serum or plasma albumin/glob ulin mass ratioOrdered By: Vivian Bullimore on 12-29-2022 Albumin/Globulin [Mass ratio] 1.5 {ratio} [facility] Serum or plasma anion gap de terminationOrdered By: Vivian Bullimore on 12-29-2022 Anion gap [Moles/Vol] 14.0 mmol/L 6.0-15.0 [facility] Sodium [Moles/volume] in Ser um or PlasmaOrdered By: Vivian Bullimore on 12-29-2022 Sodium [Moles/Vol] 140 mmol/L 136-145 [facility] Specific gravity Auto test s trip (U) [Rel density]Ordered By: Vivian Bullimore on 12-29-2022 Specific gravity (U) [Rel density] 1.030 1.001-1.03 0 [facility] Squamous epithelial cells de tection in urine sediment by light microscopyOrdered By: Vivian Bullimore on 12-29-2022 Epithelial cells.squamous LM Ql (Urine sed) 10-19 [HPF] 0-2 [facility] Urea nitrogen [Mass/volume] in Serum or PlasmaOrdered By: Vivian Bullimore on 12-29-2022 Urea nitrogen [Mass/Vol] 7 mg/dL 7-25 [facility] Urine Cultureon 12-29-2022 Bacteria identified Cx Nom (U) >100,000 colonies/ml mixed bacterial skin contaminants 2 Days PERFORMED BY: [facility] [address] [place] [id number] PATHOLOGIST [employer] KIERSTEN BYNUM M.D. Normal [facility] Comment on above: Performed By: #### A DDONUAALIX, CG, CUU ####[facility] [id number] [place] [id number] [facility] Urine bacteria detection by automated methodOrdered By: Vivian Nieto on 12-29-2022 Bacteria Auto Ql (U) None seen None Seen [facility] Urine clarity by refractomet ry automatedOrdered By: Vivian Nieto on 12-29-2022 Clarity Refractometry automated (U) Cloudy Clear [facility] Urine glucose measurement by automated test strip (mass/volume)Ordered By: Vivian Nieto on 12-29-2022 Glucose Auto test strip (U) [Mass/Vol] Normal mg/dL Normal [facility] Urine hemoglobin detection b y automated test stripOrdered By: Vivian Nieto on 12-29-2022 Hemoglobin Auto test strip Ql (U) Negative Negative [facility] Urine leukocyte esterase det ection by automated test stripOrdered By: Vivian Nieto on 12-29-2022 Leukocyte esterase Auto test strip Ql (U) 2+ Negative [facility] Urobilinogen Auto test strip (U) [Mass/Vol]Ordered By: Vivian Nieto on 12-29-2022 Urobilinogen (U) [Mass/Vol] Normal mg/dL Normal [facility] WBC Auto (Bld) [#/Vol]Ordere d By: Vivian Nieto on 12-29-2022 WBC (Bld) [#/Vol] 9.8 10*3/uL 3.8-11.6 [facility] pH Auto test strip (U)Ordere d By: Vivian Nieto on 12-29-2022 pH (U) 6.5 [pH] 5.0-9.0 [facility] Physician Referralon 023 Physician Referral [id number] Normal [facility] Ambulatory Visit Summaryon 0 11-06-2022 Ambulatory Visit Summary DAWN CUELLAR :2000 Visit Date:11/06/2022 Ambulatory Visit Instructions Your Diagnosis Abdominal pain Diarrhea Your Care Team Attending Physician - Kayy Fontana MD This Is Your Medications List Contact prescribing physician if questions or concerns norethindrone (Jencycla 0.35 mg oral tablet) Discharge Vitals Temperature (Oral) 37 ?C Heart Rate (Peripheral) 77 Height 155 cm Height 61 in Weight 58 kg Weight 127.6 lb BMI 24.14 What to do next You Need to Schedule the Following Appointments Follow Up with Kayy Fontana MD, [facility], MED When: Only if needed Where: [address] [place] [phone] Someone Will Contact You Regarding These Appointments [facility] [place]ulatory Referral, Gastroenterology, 11/06/22 14:38:00 EST, Abdominal pain Normal [facility] Family Medicine Office/Clini c Noteon 11-06-2022 Family Medicine Office/Clinic Note Chief Complaint EST diarrhea and ibs symptoms HPI Staff 22 year old female presents with stomach issues and lightheadedness worse after and has diarrhea every morning states it is hard to work when all you are doing is going to the bathroom states her mother had IBS History of Present Illness DAWN CUELLAR is a 22 Years White Female [facility] with [facility] issues for long time saw family doc recently for same concern +diarrhea watery and loose, cramping pain pain resolves with bowel movement no blood or mucous in stools +nausea no vomiting no abd surgeries unknown of any triggers Tums helps diarrhea increases with stress +lactose intolerance mainly here because she did not go to work due to diarrhea and needs letter for work Review of Systems PHQ Score Initial Depression Screen Score: 0 Negative except as above Physical Exam Vitals & Measurements T: 37 ?C(Oral) HR: 77(Peripheral) SpO2: 98% HT: 61 in HT: 155 cm WT: 58 kg WT: 127.6 lb BMI: 24.14 Gen: No acute distress, sitting comfortably in chair Abd: Soft, nontender, nondistended, active bowel sounds, no organomegaly Psych: Pleasant, normal mood, normal affect Neuro: CN II-XII intact, normal gait Assessment/Plan 1. Abdominal pain (R10.9: Unspecified abdominal pain) referral to [facility] GI placed since [facility] unable to get her in for a couple months keep food and symptom journal avoid trigger foods Ordered: [facility] [place] Ambulatory Referral 2. Diarrhea (R19.7: Diarrhea, unspecified) referral to [facility] GI placed since [facility] unable to get her in for a couple months keep food and symptom journal avoid trigger foods Ordered: [facility] Ambulatory Referral Follow-up With When Contact Information Kayy Fontana MD, [facility], MED Only if needed [address] [place] [phone] Additional Instructions: Problem List/Past Medical History Ongoing No qualifying data Historical No qualifying data Medications Jencycla 0.35 mg oral tablet Allergies amoxicillin (Hives) Social History Tobacco Never (less than 100 in lifetime) Tobacco Use:. Never Smokeless Tobacco Use:., 11/06/2022 Immunizations Vaccine Date Status Comments influenza virus vaccine, inactivated - Not Given Patient Refuses SARS-CoV-2 mRNA (tozoen 5y-11y) vac - Not Given Patient Refuses Normal [facility] Comment on above: Result Comment: Elec tronically Signed By: Kayy Fontana MD\.br\Date and Time Signed: 11/06/22 14:45 EST Provider Letteron 11-06-2022 Provider Letter (Inserted Image. Trish ble to display) November 06, 2022 DAWN CUELLAR [address] [place] [address] DAWN CUELLAR T 2000 To Whom It May Concern, Please excuse above patient from work today, 11/06/22. Sincerely, Kayy Fontana MD [facility] Normal [facility] CBC AUTO DIFFon 07-24-2022 BASO # 0.1 103/ul Normal 0.0-0.1 [facility] Comment on above: Performed By: #### C BC #### [facility] [address] [place], [place] [address] Dr. Mariela Larkin Basophils/100 WBC (Bld) 0.4 % Normal 0.2-2.0 [facility] Comment on above: Performed By: #### C BC #### [facility] [address] [place] [address] Dr. Mariela Larkin EO # 0.3 103/ul Normal 0.0-0.7 [facility] Comment on above: Performed By: #### C BC #### [facility] [address] [place] [address] Dr. Mariela Larkin Eosinophils/100 WBC (Bld) 2.2 % Normal 0.9-7.0 [facility] Comment on above: Performed By: #### C BC #### [facility] [address] [place] [address] Dr. Mariela Larkin Erythrocyte distribution width (RBC) [Ratio] 16.8 % Critically high 11.0-15.0 [facility] Comment on above: Performed By: #### C BC #### [facility] [address] [place] [address] Dr. Mariela Larkin Hematocrit (Bld) [Volume fraction] 30.4 % Critically low 36.0-48.0 [facility] Comment on above: Performed By: #### C BC #### [facility] [address] [place] [address] Dr. Mariela Larkin Hemoglobin (Bld) [Mass/Vol] 10.0 g/dL Critically low 12.0-16.0 [facility] Comment on above: Performed By: #### C BC #### [facility] [address] [place] [address] Dr. Mariela Larkin IG # 0.13 10e3/ul Critically high 0.00-0.03 [facility] Comment on above: Performed By: #### C BC #### [facility] [address] [place] [address] Dr. Mariela Larkin IG % 0.9 % Critically high 0.0-0.5 [facility] Comment on above: Performed By: #### C BC #### [facility] [address] [place] [address] Dr. Mariela Larkin LYMPH # 3.1 103/ul Normal 1.2-3.8 [facility] Comment on above: Performed By: #### C BC #### [facility] [address] [place] [address] Dr. Mariela Larkin Lymphocytes/100 WBC (Bld) 22.4 % Normal 20.5-60.0 [facility] Comment on above: Performed By: #### C BC #### [facility] [address] [place] [address] Dr. Mariela Larkin MANUAL DIFF REQ NO Normal [facility] Comment on above: Performed By: #### C BC #### [facility] [address] [place] [address] Dr. Mraiela Larkin MCH (RBC) [Entitic mass] 27.0 pg Normal 26.7-34.0 [facility] Comment on above: Performed By: #### C BC #### [facility] [address] [place] [address] Dr. Mariela Larkin MCHC (RBC) [Mass/Vol] 32.9 g/dL Normal 29.9-35.2 [facility] Comment on above: Performed By: #### C BC #### [facility] [address] [place] [address] Dr. Mariela Larkin MCV (RBC) [Entitic vol] 82.2 fL Normal 81.0-99.0 [facility] Comment on above: Performed By: #### C BC #### [facility] [address] [place] [address] Dr. Mariela Larkin MONO # 0.7 103/ul Normal 0.3-0.8 [facility] Comment on above: Performed By: #### C BC #### [facility] [address] [place] [address] Dr. Mariela Larkin Monocytes/100 WBC (Bld) 5.1 % Normal 1.7-12.0 [facility] Comment on above: Performed By: #### C BC #### [facility] [address] [place] [address] Dr. Mariela Larkin NEUT # 9.6 103/ul Critically high 1.4-6.5 [facility] Comment on above: Performed By: #### C BC #### [facility] [address] [place] [address] Dr. Mariela Larkin Neutrophils/100 WBC (Bld) 69.0 % Normal 43.0-75.0 [facility] Comment on above: Performed By: #### C BC #### [facility] [address] [place] [address] Dr. Mariela Larkin Platelet mean volume (Bld) [Entitic vol] 9.4 fL Critically low 9.5-13.5 [facility] Comment on above: Performed By: #### C BC #### [facility] [address] [place] [address] Dr. Mariela Larkin PLT 243 103/ul Normal 150-450 [facility] Comment on above: Performed By: #### C BC #### [facility] [address] [place] [address] Dr. Mariela Larkin RBC 3.70 106/ul Critically low 4.20-5.40 [facility] Comment on above: Performed By: #### C BC #### [facility] [address] [place] [address] Dr. Mariela Larkin WBC 13.9 103/ul Critically high 4.0-11.0 [facility] Comment on above: Performed By: #### C BC #### [facility] [address] [place] [address] Dr. Mariela Larkin [facility] 07-10 SARS-CoV-2 (COVID-19) RNA OMAIRA+probe Ql (Unsp spec) Not detected Normal NOT DETECTED [facility] Comment on above: Result Comment: When diagnostic testing is negative, the possibility of a false negative should be considered in the context of a patient's recent exposures and the presence of clinical signs and symptoms consistent with SARS-CoV-2. This test is not yet approved or cleared by the [place] FDA. When there are no FDA-approved or cleared tests available, and other criteria are met, FDA can make tests available under an emergency access mechanism called an Emergency Use Authorization (EUA). The EUA for this test is supported by the [employer] and Human Service's declaration that circumstances exist to justify the emergency use of in vitro diagnostics for the detection and/or diagnosis of the virus that causes COVID-19. This EUA will remain in effect for the duration of the COVID-19 declaration justifying emergency of IVDs, unless it is terminated or revoked by the FDA (after which the test may no longer be used). Performed By: #### C VDTBH #### [facility] [address] [place] [address] Dr. Mariela Larkin DIRECT COOMBSon 07-23-2022 DIRECT AYANNA Negative Normal [facility] Comment on above: Performed By: #### D IRCMB #### [facility] [address] [place] [address] Dr. Mariela Larkin DRUG SCREEN RAPID (URINE)on 07-23-2022 AMP Negative Normal NEGATIVE [facility] Comment on above: Performed By: #### A FPMAT #### [facility] [address] [place] [address] Dr. Mariela Larkin BAR Negative Normal NEGATIVE [facility] Comment on above: Performed By: #### A FPMAT #### [facility] [address] [place] [address] Dr. Mariela Larkin BUP Negative Normal NEGATIVE [facility] Comment on above: Performed By: #### A FPMAT #### [facility] [address] [place] [address] Dr. Mariela Larkin BZO Negative Normal NEGATIVE [facility] Comment on above: Performed By: #### A FPMAT #### [facility] [address] [place] [address] Dr. Mariela Larkin CECIL Negative Normal NEGATIVE [facility] Comment on above: Performed By: #### A FPMAT #### [facility] [address] [place] [address] Dr. Mariela Larkin CUT-OFFS SEE BELOW Normal [facility] Comment on above: Result Comment: AMP (Amphetamine): 500ng/mL, BAR (Barbituates): 200 ng/mL, BZO (Benzodiazepines): 150 ng/mL, BUP (Buprenorphine): 10 ng/mL, CECIL (Cocaine): 150 ng/mL, mAMP (Methamphetamine): 500 ng/mL, MTD (Methadone): 200 ng/mL, OPI (Opiates): 100 ng/mL, OXY (Oxycodone): 100 ng/mL, PCP (Phencyclidine): 25 ng/mL, PPX (Propoxyphene): 300 ng/mL, THC (Cannabinoids): 50 ng/mL, TCA (Trycyclic Antidepressants): 300 ng/mL Performed By: #### A FPMAT #### [facility] [address] [place] [address] Dr. Mariela Larkin DRUG CUT HEADER DRUG CLASS TEST SYST EM CUT-OFF CONCENTRATIONS ARE FOLLOWS: Normal [facility] Comment on above: Performed By: #### A FPMAT #### [facility] [address] [place] [address] Dr. Mariela Larkin mAMP Negative Normal NEGATIVE [facility] Comment on above: Performed By: #### A FPMAT #### [facility] [address] [place] [address] Dr. Mariela Larkin MTD Negative Normal NEGATIVE [facility] Comment on above: Performed By: #### A FPMAT #### [facility] [address] [place] [address] Dr. Mariela Larkin OPI Negative Normal NEGATIVE [facility] Comment on above: Performed By: #### A FPMAT #### [facility] [address] [place] [address] Dr. Mariela Larkin OXY Negative Normal NEGATIVE [facility] Comment on above: Performed By: #### A FPMAT #### [facility] [address] [place] [address] Dr. Mariela Larkin PCP Negative Normal NEGATIVE [facility] Comment on above: Performed By: #### A FPMAT #### [facility] [address] [place] [address] Dr. Mariela Larkin PPX Negative Normal NEGATIVE [facility] Comment on above: Performed By: #### A FPMAT #### [facility] [address] [place] [address] Dr. Mariela Larkin TCA Negative Normal NEGATIVE [facility] Comment on above: Performed By: #### A FPMAT #### [facility] [address] [place] [address] Dr. Mariela Larkin THC Positive Abnormal NEGATIVE [facility] Comment on above: Performed By: #### A FPMAT #### [facility] [address] [place] [address] Dr. Mariela Larkin TYPE AND SCREENon 07-23-2022 TYPE AND SCREEN Antibody Screen NEGA TIVE Blood Bank Notes orignal specimen hemolyzed, repeat testing performed on redraw. Hemolysis Blood Bank Notes could cause false positive reaction. ABO Rh Typing AB Rh Positive Normal [facility] Comment on above: Performed By: #### C VDTBH #### [facility] [address] [place] [address] Dr. Mariela Larkin CBC AUTO DIFFon 07-22-2022 BASO # 0.0 103/ul Normal 0.0-0.1 [facility] Comment on above: Performed By: #### C BC #### [facility] [address] [place] [address] Dr. Mariela Larkin Basophils/100 WBC (Bld) 0.2 % Normal 0.2-2.0 [facility] Comment on above: Performed By: #### C BC #### [facility] [address] [place] [address] Dr. Mariela Larkin EO # 0.2 103/ul Normal 0.0-0.7 [facility] Comment on above: Performed By: #### C BC #### [facility] [address] [place] [address] Dr. Mariela Larkin Eosinophils/100 WBC (Bld) 1.0 % Normal 0.9-7.0 [facility] Comment on above: Performed By: #### C BC #### [facility] [address] [place] [address] Dr. Mariela Larkin Erythrocyte distribution width (RBC) [Ratio] 16.3 % Critically high 11.0-15.0 [facility] Comment on above: Performed By: #### C BC #### [facility] [address] [place] [address] Dr. Mariela Larkin Hematocrit (Bld) [Volume fraction] 34.0 % Critically low 36.0-48.0 [facility] Comment on above: Performed By: #### C BC #### [facility] [address] [place] [address] Dr. Mariela Larkin Hemoglobin (Bld) [Mass/Vol] 11.0 g/dL Critically low 12.0-16.0 [facility] Comment on above: Performed By: #### C BC #### [facility] [address] [place] [address] Dr. Mariela Larkin IG # 0.14 10e3/ul Critically high 0.00-0.03 [facility] Comment on above: Performed By: #### C BC #### [facility] [address] [place] [address] Dr. Mariela Larkin IG % 0.9 % Critically high 0.0-0.5 [facility] Comment on above: Performed By: #### C BC #### [facility] [address] [place] [address] Dr. Mariela Larkin LYMPH # 2.5 103/ul Normal 1.2-3.8 [facility] Comment on above: Performed By: #### C BC #### [facility] [address] [place] [address] Dr. Mariela Larkin Lymphocytes/100 WBC (Bld) 15.9 % Critically low 20.5-60.0 [facility] Comment on above: Performed By: #### C BC #### [facility] [address] [place] [address] Dr. Mariela Larkin MANUAL DIFF REQ NO Normal [facility] Comment on above: Performed By: #### C BC #### [facility] [address] [place] [address] Dr. Mariela Larkin MCH (RBC) [Entitic mass] 26.2 pg Critically low 26.7-34.0 [facility] Comment on above: Performed By: #### C BC #### [facility] [address] [place] [address] Dr. Mariela Larkin MCHC (RBC) [Mass/Vol] 32.4 g/dL Normal 29.9-35.2 [facility] Comment on above: Performed By: #### C BC #### [facility] [address] [place] [address] [address] Mariela Larkin MCV (RBC) [Entitic vol] 81.0 fL Normal 81.0-99.0 [facility] Comment on above: Performed By: #### C BC #### [facility] [address] [place] [address] [address] Mariela Larkin MONO # 0.9 103/ul Critically high 0.3-0.8 [facility] Comment on above: Performed By: #### C BC #### [facility] [address] [place] [address] [address] Mariela Larkin Monocytes/100 WBC (Bld) 5.5 % Normal 1.7-12.0 [facility] Comment on above: Performed By: #### C BC #### [facility] [address] [place] [address] Dr. Mariela Larkin NEUT # 11.9 103/ul Critically high 1.4-6.5 [facility] Comment on above: Performed By: #### C BC #### [facility] [address] [place] [address] Dr. Mariela Larkin Neutrophils/100 WBC (Bld) 76.5 % Critically high 43.0-75.0 [facility] Comment on above: Performed By: #### C BC #### [facility] [address] [place] [address] Dr. Mariela Larkin Platelet mean volume (Bld) [Entitic vol] 9.8 fL Normal 9.5-13.5 [facility] Comment on above: Performed By: #### C BC #### [facility] [address] [place] [address] Dr. Mariela Larkin PLT 268 103/ul Normal 150-450 [facility] Comment on above: Performed By: #### C BC #### [facility] [address] [place] [address] Dr. Mariela Larkin RBC 4.20 106/ul Normal 4.20-5.40 [facility] Comment on above: Performed By: #### C BC #### [facility] [facility] [address] [place] [address] Dr. Mariela Larkin WBC 15.6 103/ul Critically high 4.0-11.0 [facility] Comment on above: Performed By: #### C BC #### [facility] [address] [place] [address] Dr. Mariela Larkin GROUP B STREP CULTUREon S. agalactiae Ag Ql (Unsp spec) Isolate 1 Streptococcus agalactiae Moderate growth of ORGANISM 1 Streptococcus agalactiae ANTIBIOTIC M.I.C RX STATUS Benzylpenicillin <=0.06 S F Ampicillin <=0.25 S F Cefotaxime <=0.12 S F Ceftriaxone <=0.12 S F Levofloxacin 0.5 S F Inducible Clindamycin Resistance Neg NEG F Erythromycin >=8 R F Clindamycin >=1 R F Linezolid <=2 S F Vancomycin 0.5 S F Tetracycline >=16 R F Normal [facility] Comment on above: Performed By: #### C VDTBH #### [facility] [address] [place] [address] Dr. Mariela Larkin CHLAMYDIA/GONOCOCCUS OMAIRA ( AB/URINE/PAPon 07-12-2022 Chlamydia trachomatis, OMAIRA Negative Normal Negative [facility] Comment on above: Performed By: #### C VDTBH #### [facility] [address] [place] [address] Dr. Mariela Larkin Neisseria gonorrhoeae, OMAIRA Negative Normal Negative [facility] Comment on above: Performed By: #### C VDTBH #### [facility] [address] [place] [address] Dr. Mariela Larkin VAGINITIS/VAGINOSIS DNA PROB Kulwinder 07-11-2022 Ambreen species Positive Abnormal Negative [facility] Comment on above: Performed By: #### C VDTBH #### [facility] [address] [place] [address] Dr. Mariela Larkin Gardnerella vaginalis Negative Normal Negative [facility] Comment on above: Performed By: #### C VDTBH #### [facility] [address] [place] [address] Dr. Mariela Larkin Trichomonas vaginalis Negative Normal Negative [facility] Comment on above: Performed By: #### C VDTBH #### [facility] [address] [place] [address] Dr. Mariela Larkin UA (CLEAN/CATCH) DOLPHIN RESEARCHER/MICRO I F IND.on 07-04-2022 Bilirubin Ql (U) Negative Normal NEGATIVE [facility] Comment on above: Performed By: #### A FPMAT #### [facility] [address] [place] [address] Dr. Mariela Larkin Clarity (U) CLEAR Normal CLEAR [facility] Comment on above: Performed By: #### A FPMAT #### [facility] [address] [place] [address] Dr. Mariela Larkin Color (U) YELLOW Normal YELLOW [facility] Comment on above: Performed By: #### A FPMAT #### [facility] [address] [place] [address] Dr. Mariela Larkin Glucose Ql (U) Negative Normal NEGATIVE [facility] Comment on above: Performed By: #### A FPMAT #### [facility] [address] [place] [address] Dr. Mariela Larkin Hemoglobin Ql (U) Negative Normal NEGATIVE [facility] Comment on above: Performed By: #### A FPMAT #### [facility] [address] [place] [address] Dr. Mariela Larkin Ketones Ql (U) 15 mg/dl Abnormal NEGATIVE [facility] Comment on above: Performed By: #### A FPMAT #### [facility] [address] [place] [address] Dr. Mariela Larkin LEUKOCYTES Negative Normal NEGATIVE [facility] Comment on above: Performed By: #### A FPMAT #### [facility] [address] [place] [address] Dr. Mariela Larkin Nitrite Ql (U) Negative Normal NEGATIVE [facility] Comment on above: Performed By: #### A FPMAT #### [facility] [address] [place] [address] Dr. Mariela Larkin pH (U) 7.5 [pH] Normal 5-9 [facility] Comment on above: Performed By: #### A FPMAT #### [facility] [address] [place] [address] Dr. Mariela Larkin SPEC GRAVITY 1.020 Normal 1.005-<=1. 025 [facility] Comment on above: Performed By: #### A FPMAT #### [facility] [address] [place] [address] Dr. Mariela Larkin UA PROTEIN TRACE Normal NEGATIVE/ TRACE [facility] Comment on above: Performed By: #### A FPMAT #### [facility] [address] [place] [address] Dr. Mariela Larkin UR MICRO IND NOT INDICATED Normal [facility] Comment on above: Performed By: #### A FPMAT #### [facility] [address] [place] [address] Dr. Mariela Larkin Urobilinogen Qn (U) 1.0 {Vidya'U}/dL Normal 0.2 - 1. 0 [facility] Comment on above: Performed By: #### A FPMAT #### [facility] [address] [place] [address] Dr. Mariela Larkin US PREG GROWTHon 06-21-2022 US PREG GROWTH EXAMINATION: US PREG GROWTH HISTORY: Uterine size for dates discrepancy COMPARISON: No relevant comparison available. FINDINGS: Heart Rate: 138.0 bpm Amniotic Fluid Volume: 13.2 cm Number: 1.0 Position: Cephalic presentation, longitudinal lie Maximum Vertical Pocket: 3.4 cm cm 3.4 cm cm 2.9 cm cm 3.7 cm cm BIOMETRY: BPD: 8.9 cm cm; 36 weeks 0 days; , 96% HC: 31.9 cmcm; 36 weeks 0 days, 75% AC: 28.4 cm cm; 32 weeks 3 days, 20% FL: 6.4 cm cm; 33 weeks 1 days; 28.2 % % EFW: 2158.7 grams, 4 lbs. 12 oz., 33% FL/AC: 22.7 FL/BPD: 72.2 HC/AC: 1.1 GESTATIONAL AGE: Age by EDC: 33 weeks 4 days MARILUZ by EDC: 08/05/2022 Age by US: 34 weeks 3 days MARILUZ by US: 07/30/2022 Other: Tiny bilateral scrotal hydroceles IMPRESSION: Tiny bilateral scrotal hydroceles BPD 96 percentile, otherwise normal interval growth Electronically authenticated by: YENNI ROSE Date: 2022-06-21 18:37 Normal [facility] GLUCOSE - 1HRon 05-07-2022 Glucose [Mass/Vol] 120 mg/dL Critically high 74-106 [facility] Comment on above: Performed By: #### G LU1HR #### [facility] [address] [place] [address] Dr. Mraiela Larkin HEMOGRAM AND PLATELon 2021 Hematocrit (Bld) [Volume fraction] 32.6 % Critically low 36.0-48.0 [facility] Comment on above: Performed By: #### A FPMAT #### [facility] [address] [place] [address] Dr. Mariela Larkin Hemoglobin (Bld) [Mass/Vol] 10.5 g/dL Critically low 12.0-16.0 [facility] Comment on above: Performed By: #### A FPMAT #### [facility] [address] [place] [address] Dr. Mariela Larkin MCH (RBC) [Entitic mass] 28.2 pg Normal 26.7-34.0 [facility] Comment on above: Performed By: #### A FPMAT #### [facility] [address] [place] [address] Dr. Mariela Larkin MCHC (RBC) [Mass/Vol] 32.2 g/dL Normal 29.9-35.2 [facility] Comment on above: Performed By: #### A FPMAT #### [facility] [address] [place] [address] Dr. Mariela Larkin MCV (RBC) [Entitic vol] 87.4 fL Normal 81.0-99.0 [facility] Comment on above: Performed By: #### A FPMAT #### [facility] [address] [place] [address] Dr. Mariela Larkin PLT 242 103/ul Normal 150-450 [facility] Comment on above: Performed By: #### A FPMAT #### [facility] [address] [place] [address] Dr. Mariela Larkin RBC 3.73 106/ul Critically low 4.20-5.40 [facility] Comment on above: Performed By: #### A FPMAT #### [facility] [address] [place] [address] Dr. Mariela Larkin WBC 13.2 103/ul Critically high 4.0-11.0 [facility] Comment on above: Performed By: #### A FPMAT #### [facility] [address] [place] [address] Dr. Mariela Larkin UA (CLEAN/CATCH) DOLPHIN RESEARCHER/MICRO I F IND.on 04-24-2022 Bilirubin Ql (U) Negative Normal NEGATIVE [facility] Comment on above: Performed By: #### U ACSIND #### [facility] [address] [place] [address] Dr. Mariela Larkin Clarity (U) CLEAR Normal CLEAR [facility] Comment on above: Performed By: #### U ACSIND #### [facility] [address] [place] [address] Dr. Mariela Larkin Color (U) YELLOW Normal YELLOW [facility] Comment on above: Performed By: #### U ACSIND #### [facility] [address] [place] [address] Dr. Mariela Larkin Glucose Ql (U) Negative Normal NEGATIVE [facility] Comment on above: Performed By: #### U ACSIND #### [facility] [address] [place] [address] Dr. Mariela Larkin Hemoglobin Ql (U) Negative Normal NEGATIVE [facility] Comment on above: Performed By: #### U ACSIND #### [facility] [address] [place] [address] Dr. Mariela Larkin Ketones Ql (U) TRACE Abnormal NEGATIVE [facility] Comment on above: Performed By: #### U ACSIND #### [facility] [address] [address] [address] Mariela Larkin LEUKOCYTES Negative Normal NEGATIVE [facility] Comment on above: Performed By: #### U ACSIND #### [facility] [address] [address] [address] Mariela Larkin Nitrite Ql (U) Negative Normal NEGATIVE [facility] Comment on above: Performed By: #### U ACSIND #### [facility] [address] [address] [address] Mariela Larkin pH (U) 8.0 [pH] Normal 5-9 [facility] Comment on above: Performed By: #### U ACSIND #### [facility] [address] [place] [address] Dr. Mariela Larkin SPEC GRAVITY 1.015 Normal 1.005-<=1. 025 [facility] Comment on above: Performed By: #### U ACSIND #### [facility] [address] [place] [address] Dr. Mariela Larkin UA PROTEIN Negative Normal NEGATIVE/ TRACE [facility] Comment on above: Performed By: #### U ACSIND #### [facility] [address] [address] [address] Mariela Larkin UR MICRO IND NOT INDICATED Normal [facility] Comment on above: Performed By: #### U ACSIND #### [facility] [address] [place] [address] Dr. Mariela Larkin Urobilinogen Qn (U) 0.2 {Vidya'U}/dL Normal 0.2 - 1. 0 [facility] Comment on above: Performed By: #### U ACSIND #### [facility] [address] [place] [address] Dr. Mariela Larkin US PREG ANATOMY SINGLEon US PREG ANATOMY SINGLE EXAMINATION: US P REG ANATOMY SINGLE HISTORY: screening COMPARISON: No relevant comparison available. TECHNIQUE: Transabdominal sonographic examination was performed for obstetrical and evaluation. FINDINGS: Number: 1 Heart Rate: 146.7 bpm H.B. /min Amniotic Fluid Volume: Subjectively normal Placental Location: ANTERIOR with lower margin 7.3 cm from os Cervix Length: 4.1 cm, closed. ANATOMY: Normal Structures -cerebellum, choroid plexus, cisterna magna, lateral cerebral ventricles, orbits, midline falx, hard palate, four-chamber heart, RVOT, LVOT, stomach, kidneys, bladder, umbilical cord insertion into abdomen, three-vessel cord, cervical spine, thoracic spine, lumbar spine, sacral spine, right upper extremity, left upper extremity, right lower extremity, left lower extremity. SUBOPTIMALLY SEEN: Left ventricle outflow tract. ABNORMALITIES: None BIOMETRY: BPD: 6.1 cm 24 weeks 5 days HC: 21.7 cm 23 weeks 5 days AC: 18.7 cm 23 weeks 4 days FL: 4.0 cm 23 weeks 0 days EFW:593.6 grams; 49% FL/AC: 21.6 FL/BPD: 66.4 HC/AC: 1.2 GESTATIONAL AGE: Age by EDC: 23 weeks 2 days MARILUZ by EDC: 08/05/2022 Age by current US: 23 weeks 5 days MARILUZ by current US: 08/02/2022 IMPRESSION: 1. Single live intrauterine with growth detailed above. 2. Suboptimal visualization of the cardiac outflow tracts. Electronically authenticated by: MARTIN VALVERDE Date: 2022-04-11 16:25 Normal [facility] AFP MATERNAL FOR SPINA BIFID Aon 03-09-2022 AFP MoM 1.59 Normal [facility] Comment on above: Performed By: #### A FPMAT #### [facility] [address] [address] [address] Mariela Larkin AFP Value 95.6 ng/mL Normal [facility] Comment on above: Performed By: #### A FPMAT #### [facility] [address] [address] [address] Mariela Larkin AFP, Serum for Spina Bifida Report Normal [facility] Comment on above: Performed By: #### A FPMAT #### [facility] [address] [address] [address] Mariela Larkin Comment Comment Normal [facility] Comment on above: Result Comment: Maryanne Hagen, Ph.D., [facility] Director . References: Available Upon Request. . Multiples Of Median Cutoffs For AFP Elevations Moran 2.5 Black 2.8 IDD 2.0 Twins 4.5 Abbreviation Definitions IDD - Insulin Dep Diabetes OSBR - Open Spina Bifida Risk . For further inquiries contact [employer] [facility] at [phone]. . This test was developed and its performance characteristics determined by [employer]. It has not been cleared or approved by the Food and Drug Administration. Performed By: #### A FPMAT #### [facility] [address] [address] [address] Mariela Grover Age Collection Date 18.4 weeks Normal [facility] Comment on above: Performed By: #### A FPMAT #### [facility] [address] [id number] Mariela Larkin Gestat, Age Based on MARILUZ [facility] Comment on above: Result Comment: 07/11 Recalculations are not recommended when gestational dating by LMP and ultrasound are within 10 days. Performed By: #### A FPMAT #### [facility] [address] [address] [address] Mariela Larkin Insulin Dep Diabetes No Normal [facility] Comment on above: Performed By: #### A FPMAT #### [facility] [id number] Mariela Larkin Interpretation Comment Normal [facility] Comment on above: Result Comment: Inte rpretation: Screen Negative . This result is screen negative for OSB. The AFP MoM calculated is based on the gestational age provided. MS-AFP can identify up to 80% of open neural tube defects. Closed neural tube defects and some open defects may not be detected by this test. This test does not screen for Down Syndrome or Trisomy 18. If screening for Down Syndrome or Trisomy 18 is desired, contact [facility] [employer] [facility] to discuss available options. The [place] recommends amniocentesis be offered to women age 35 and older. Performed By: #### A FPMAT #### [facility] [address] [address] [address] Mariela Larkin [age] Normal [facility] Comment on above: Performed By: #### A FPMAT #### [facility] [address] [address] [address] Mariela Larkin Multiple Gestation No Normal [facility] Comment on above: Performed By: #### A FPMAT #### [facility] [address] [address] [address] Mariela Larkin OSBR Risk 1 IN 2154 [facility] Comment on above: Performed By: #### A FPMAT #### [facility] [address] [address] [address] Mariela Larkin PDF . Normal [facility] Comment on above: Performed By: #### A FPMAT #### [facility] [address] [place] [address] Dr. Mariela Larkin Race Normal [facility] Comment on above: Performed By: #### A FPMAT #### [facility] [address] [place] [address] Dr. Mariela Larkin Test Results: Negative Normal [facility] Comment on above: Performed By: #### A FPMAT #### [facility] [address] [place] [address] Dr. Mariela Larkin HEP B SURFACE ANTIGEN SCREEN on 01-27-2022 HBsAg Screen Negative Normal Negative [facility] Comment on above: Performed By: #### C VDTBH #### [facility] [address] [place] [address] Dr. Mariela Larkin HEPATITIS C VIRUS AB W/ REFL EX QUANTon 01-27-2022 HCV AB <0.1 Normal 0.0-0.9 [facility] Comment on above: Performed By: #### A FPMAT #### [facility] [address] [place] [address] Dr. Mariela Larkin Interpretation: Comment Normal [facility] Comment on above: Result Comment: Nega tive Not infected with HCV, unless recent infection is suspected or other evidence exists to indicate HCV infection. Performed By: #### A FPMAT #### [facility] [address] [place] [address] Dr. Mariela Larkin HIV 1 AND 2 WITH REFLEXon HIV Screen 4th Generation wRfx Non-Reactive Normal Non Reactive [facility] Comment on above: Result Comment: HIV Negative HIV-1/HIV-2 antibodies and HIV-1 p24 antigen were NOT detected. There is no laboratory evidence of HIV infection. Performed By: #### C VDTBH #### [facility] [address] [place] [address] Dr. Mariela Larkin RPR QUANTon 01-27-2022 Rapid Plasma Reagin, Quant Non-Reactive Normal NonRea<1:1 [facility] Comment on above: Result Comment: Plea se Note: This test does not meet current guidelines for screening and diagnosis of syphilis. This test is intended for following treatment response in patients being treated for syphilis infection. To screen for syphilis infection, a reflex cascade that includes both RPR and a treponema-specific assay should be utilized, such as Treponema pallidum (Syphilis) Screening [place] (543275) or Rapid Plasma Reagin (RPR) Test With Reflex to Quantitative RPR and Confirmatory Treponema pallidum Antibodies (014535). Performed By: #### R PRQ #### [facility] [address] [place] [address] Dr. Mariela Larkin RUBELLA AB IGGon 01-27-2022 Rubella Antibodies, IgG 3.63 index Normal Immu ne >0.99 [facility] Comment on above: Result Comment: Non- immune <0.90 Equivocal 0.90 - 0.99 Immune >0.99 Performed By: #### A FPMAT #### [facility] [address] [place] [address] Dr. Mariela Larkin CBC AUTO DIFFon 01-26-2022 BASO # 0.0 103/ul Normal 0.0-0.1 [facility] Comment on above: Performed By: #### A FPMAT #### [facility] [address] [place] [address] Dr. Mariela Larkin Basophils/100 WBC (Bld) 0.2 % Normal 0.2-2.0 [facility] Comment on above: Performed By: #### A FPMAT #### [facility] [address] [place] [address] Dr. Mariela Larkin EO # 0.2 103/ul Normal 0.0-0.7 [facility] Comment on above: Performed By: #### A FPMAT #### [facility] [address] [place] [address] Dr. Mariela Larkin Eosinophils/100 WBC (Bld) 2.5 % Normal 0.9-7.0 [facility] Comment on above: Performed By: #### A FPMAT #### [facility] [address] [place] [address] Dr. Mariela Larkin Erythrocyte distribution width (RBC) [Ratio] 14.1 % Normal 11.0-15.0 [facility] Comment on above: Performed By: #### A FPMAT #### [facility] [address] [place] [address] Dr. Mariela Larkin Hematocrit (Bld) [Volume fraction] 33.1 % Critically low 36.0-48.0 [facility] Comment on above: Performed By: #### A FPMAT #### [facility] [address] [place] [address] Dr. Mariela Larkin Hemoglobin (Bld) [Mass/Vol] 11.1 g/dL Critically low 12.0-16.0 [facility] Comment on above: Performed By: #### A FPMAT #### [facility] [address] [place] [address] Dr. Mariela Larkin IG # 0.03 10e3/ul Normal 0.00-0.03 [facility] Comment on above: Performed By: #### A FPMAT #### [facility] [address] [place] [address] Dr. Mariela Larkin IG % 0.3 % Normal 0.0-0.5 [facility] Comment on above: Performed By: #### A FPMAT #### [facility] [address] [place] [address] Dr. Mariela Larkin LYMPH # 1.1 103/ul Critically low 1.2-3.8 [facility] Comment on above: Performed By: #### A FPMAT #### [facility] [address] [place] [address] Dr. Mariela Larkin Lymphocytes/100 WBC (Bld) 11.7 % Critically low 20.5-60.0 [facility] Comment on above: Performed By: #### A FPMAT #### [facility] [address] [place] [address] Dr. Mariela aLrkin MANUAL DIFF REQ NO Normal [facility] Comment on above: Performed By: #### A FPMAT #### [facility] [address] [place] [address] Dr. Mariela Larkin MCH (RBC) [Entitic mass] 29.1 pg Normal 26.7-34.0 [facility] Comment on above: Performed By: #### A FPMAT #### [facility] [address] [place] [address] Dr. Mariela Larkin MCHC (RBC) [Mass/Vol] 33.5 g/dL Normal 29.9-35.2 [facility] Comment on above: Performed By: #### A FPMAT #### [facility] [address] [place] [address] Dr. Mariela Larkin MCV (RBC) [Entitic vol] 86.9 fL Normal 81.0-99.0 [facility] Comment on above: Performed By: #### A FPMAT #### [facility] [address] [place] [address] Dr. Mariela Larkin MONO # 0.4 103/ul Normal 0.3-0.8 [facility] Comment on above: Performed By: #### A FPMAT #### [facility] [address] [place] [address] Dr. Mraiela Larkin Monocytes/100 WBC (Bld) 4.0 % Normal 1.7-12.0 [facility] Comment on above: Performed By: #### A FPMAT #### [facility] [address] [place] [address] Dr. Mariela Larkin NEUT # 7.5 103/ul Critically high 1.4-6.5 [facility] Comment on above: Performed By: #### A FPMAT #### [facility] [address] [address] [address] Mariela Larkin Neutrophils/100 WBC (Bld) 81.3 % Critically high 43.0-75.0 [facility] Comment on above: Performed By: #### A FPMAT #### [facility] [address] [address] [address] Mariela Larkin Platelet mean volume (Bld) [Entitic vol] 9.6 fL Normal 9.5-13.5 [facility] Comment on above: Performed By: #### A FPMAT #### [facility] [address] [address] [address] Mariela Larkin PLT 225 103/ul Normal 150-450 [facility] Comment on above: Performed By: #### A FPMAT #### [facility] [address] [place] [address] Dr. Mariela Larkin RBC 3.81 106/ul Critically low 4.20-5.40 [facility] Comment on above: Performed By: #### A FPMAT #### [facility] Laboratory [address] [place] [address] Dr. Mariela Larkin WBC 9.3 103/ul Normal 4.0-11.0 [facility] Comment on above: Performed By: #### A FPMAT #### [facility] Laboratory [address] [place] [address] Dr. Mariela Larkin CULTURE URINEon 01-26-2022 CULTURE URINE Culture Observations : No growth Normal [facility] Comment on above: Performed By: #### U RCX #### [facility] Laboratory [address] [place] [address] Dr. Mariela Larkin GLYCOHEMOGLOBIN A1Con 2021 ADA RECOMMENDATION SEE BELOW Normal [facility] Comment on above: Result Comment: ADA RECOMMENDED LIMIT 4.0 - 6.0 ADA THERAPEUTIC TARGET < 7.0 ACTION SUGGESTED > 7.0 Performed By: #### A FPMAT #### [facility] Laboratory [address] [place] [address] Dr. Mariela Larkin Glucose [Mass/Vol] 94 mg/dL Normal [facility] Comment on above: Performed By: #### A FPMAT #### [facility] Laboratory [address] [place] [address] Dr. Mariela Larkin HbA1c (Bld) [Mass fraction] 4.9 % Normal 4.5-6.2 [facility] Comment on above: Performed By: #### A FPMAT #### [facility] Laboratory [address] [place] [address] Dr. Mariela Larkin DHRUV BOX TEST PT SEND OUTo n 01-26-2022 SENT TO REF LAB 01/26/2022 Normal [facility] Comment on above: Performed By: #### C VDTBH #### [facility] Laboratory [address] [place] [address] Dr. Mariela Larkin TYPE AND SCREENon 01-26-2022 TYPE AND SCREEN Negative Normal [facility] Comment on above: Performed By: #### T NS #### [facility] Laboratory [address] [place] [address] Dr. Mariela Larkin US PREG TVon 12-25-2021 US PREG TV EXAMINATION: US PREG TV HISTORY: Irregular periods COMPARISON: No relevant comparison available. FINDINGS: GESTATIONAL SAC: Present and normal appearing. POLE: Present and normal appearing. YOLK SAC: Present. CARDIAC: Present. UTERUS: Normal size and appearance. OVARIES: Right: Normal. Left: Corpus lutein cyst. CERVIX: 3.5 cm in length and closed. CUL-DE-SAC: Normal. OTHER: None. AGE BY LMP: 8 weeks, 1 day MARILUZ BY LMP: 08/05/2022 AGE BY US CRL: 7 weeks, 4 days MARILUZ BY US CRL: 08/09/2022 IMPRESSION: 1. Single live intrauterine . 2. Rapid heart rate, 181 bpm Electronically authenticated by: MARTIN VALVERDE Date: 2021-12-25 11:24 Normal [facility] Vital Signs Date Time Vital Sign Value Performing Clinician Facility 10-13-2023 14:07-0500 Body temperature 98.4 [degF] DO Divina Araya Work Phone: [facility] 10-13-2023 14:07-0500 Diastolic blood pressure 56 mm[Hg] DO Divina Araya Work Phone: [facility] 10-13-2023 14:07-0500 Heart rate 78 /min DO Divina Araya Work Phone: [facility] 10-13-2023 14:07-0500 Respiratory rate 18 /min DO Divina Araya Work Phone: [facility] 10-13-2023 14:07-0500 SaO2% (BldA) [Mass fraction] 100 % DO Divina Araya Work Phone: [facility] 10-13-2023 14:07-0500 Systolic blood pressure 103 mm[Hg] DO Divina Araya Work Phone: [facility] 10-13-2023 11:52-0500 Body height 154.94 cm DO Divina Araya Work Phone: [facility] 10-13-2023 11:52-0500 Body weight 43 kg DO Divina Araya Work Phone: [facility] 09-28-2023 16:24-0500 Body temperature 98.1 [degF] DO Divina Araya Work Phone: [facility] 09-28-2023 16:24-0500 Diastolic blood pressure 62 mm[Hg] DO Divina Araya Work Phone: [facility] 09-28-2023 16:24-0500 Heart rate 84 /min DO Divina Araya Work Phone: [facility] 09-28-2023 16:24-0500 Respiratory rate 24 /min DO Divina Araya Work Phone: [facility] 09-28-2023 16:24-0500 SaO2% (BldA) [Mass fraction] 99 % DO Divina Araya Work Phone: [facility] 09-28-2023 16:24-0500 Systolic blood pressure 103 mm[Hg] DO Divina Araya Work Phone: [facility] 09-28-2023 13:15-0500 Body height 156.21 cm DO Divina Araya Work Phone: [facility] 09-28-2023 13:15-0500 Body weight 40.75 kg DO Divina Araya Work Phone: [facility] 09-10-2023 09:49-0500 Diastolic blood pressure 59 mm[Hg] DO Divina Araya Work Phone: [facility] 09-10-2023 09:49-0500 Heart rate 65 /min DO Divina Araya Work Phone: [facility] 09-10-2023 09:49-0500 Respiratory rate 16 /min DO Divina Araya Work Phone: [facility] 09-10-2023 09:49-0500 SaO2% (BldA) [Mass fraction] 100 % DO Divina Araya Work Phone: [facility] 09-10-2023 09:49-0500 Systolic blood pressure 95 mm[Hg] DO Divina Araya Work Phone: [facility] 09-10-2023 07:42-0500 Body height 156.21 cm DO Divina Araya Work Phone: [facility] 09-10-2023 07:42-0500 Body weight 40.82 kg DO Divina Araya Work Phone: [facility] 06-03-2023 10:35-0400 Diastolic blood pressure 71 mm[Hg] DO Divina Araya Work Phone: [facility] 06-03-2023 10:35-0400 Heart rate 63 /min DO Divina Araya Work Phone: [facility] 06-03-2023 10:35-0400 Respiratory rate 16 /min DO Divina Araya Work Phone: [facility] 06-03-2023 10:35-0400 SaO2% (BldA) [Mass fraction] 100 % DO Divina Araya Work Phone: [facility] 06-03-2023 10:35-0400 Systolic blood pressure 106 mm[Hg] DO Divina Menardlottie Work Phone: [facility] 06-03-2023 08:46-0400 Body height 157.48 cm DO Divina Menardbautistaskylar Work Phone: [facility] 06-03-2023 08:46-0400 Body weight 48.98 kg DO Divina Menardlottie Work Phone: [facility] 04-25-2023 15:15-0400 Body height 165.35 cm Imad Asaad Other [employer] [facility] [employer] Other 04-25-2023 15:15-0400 Body mass index (BMI) [Ratio] 17.09 kg/m2 Imad Asaad Other [facility] Other 04-25-2023 15:15-0400 Body weight 46.72 kg Imad Asaad Other [facility] Other 04-25-2023 15:15-0400 Diastolic blood pressure 68 mm[Hg] Imad Asaad Other [facility] Other 04-25-2023 15:15-0400 Systolic blood pressure 110 mm[Hg] Imad Asaad Other [facility] Other 12-29-2022 15:12-0400 Body temperature 98.9 [degF] DO Divina Menardlottie Work Phone: [facility] 12-29-2022 15:12-0400 Diastolic blood pressure 64 mm[Hg] DO Divina Araya Work Phone: [facility] 12-29-2022 15:12-0400 Heart rate 65 /min DO Divina Araya Work Phone: [facility] 12-29-2022 15:12-0400 Respiratory rate 18 /min DO Divina Araya Work Phone: [facility] 12-29-2022 15:12-0400 SaO2% (BldA) [Mass fraction] 98 % DO Divina Araya Work Phone: [facility] 12-29-2022 15:12-0400 Systolic blood pressure 112 mm[Hg] DO Divina Araya Work Phone: [facility] 12-29-2022 12:53-0400 Body height 154.94 cm DO Divina Araya Work Phone: [facility] 12-29-2022 12:53-0400 Body weight 53.1 kg DO Divina Araya Work Phone: [facility] 11-06-2022 14:21-0500 Body temperature 98.6 [degF] Kayy Gudimella [facility] 11-06-2022 14:21-0500 Heart rate 77 /min Kayy Gudimella [facility] 11-06-2022 14:21-0500 SaO2% (BldA) [Mass fraction] 98 % Kayy Gudimella [facility] 03-09-2022 02:06-0400 Body weight 48.[address] RONA SALDANA [facility] Comment on above: Performed By: #### AFPMAT #### [facility] Laboratory [address] [place] [address] Dr. Mariela Larkin Encounters Encounter Date Encounter Type Care Provider Facility Start: 12-20-2023 End: 12-20-2023 ambulatory ZACHARY ARAYA Not Available Start: 10-13-2023 End: 10-13-2023 Emergency department patient visit Divina Menardbautistaskylar Facility:[facility] Start: 10-13-2023 End: 10-13-2023 Emergency department patient visit DO Divina Araya Work Phone: [facility] Work Phone: Start: 10-04-2023 End: 10-04-2023 ambulatory CITLALI PATRICIA Not Available Start: 09-28-2023 End: 09-28-2023 Emergency department patient visit Divina Menardbautistaskylar Facility:[facility] Start: 09-28-2023 End: 09-28-2023 Emergency department patient visit DO Divina Araya Work Phone: [facility] Work Phone: Start: 09-10-2023 End: 09-10-2023 ambulatory Imad Asaad Facility:[facility] Start: 09-10-2023 End: 09-10-2023 Admission to same day surgery center DO Divina Araya Work Phone: [facility] Work Phone: Start: 09-10-2023 End: 09-10-2023 ambulatory DO Divina Araya Work Phone: [facility] Work Phone: Start: 07-27-2023 End: 07-27-2023 ambulatory Imad Asaad Facility:[facility] Start: 07-27-2023 End: 07-27-2023 ambulatory DO Divina Araya Work Phone: [facility] Work Phone: Start: 07-27-2023 End: 07-27-2023 Patient encounter procedure DO Divina Araya Work Phone: [facility] [place] Work Phone: Start: 07-11-2023 End: 07-11-2023 ambulatory Imad Asaad Other [facility] Other Start: 07-11-2023 Telephone encounter Imad Asaad [facility] Start: 06-03-2023 End: 06-03-2023 ambulatory Imad Asaad Facility:[facility] Start: 06-03-2023 End: 06-03-2023 Admission to same day surgery center DO Divina Araya Work Phone: [facility] Work Phone: Start: 06-03-2023 End: 06-03-2023 ambulatory DO Divina Araya Work Phone: [facility] Work Phone: Start: 05-08-2023 End: 05-08-2023 ambulatory Imad Asaad Facility:[facility] Start: 05-08-2023 End: 05-08-2023 ambulatory DO Divina Araya Work Phone: [facility] Work Phone: Start: 05-08-2023 End: 05-08-2023 Patient encounter procedure DO Divina Araya Work Phone: [facility] [place] Work Phone: Start: 04-25-2023 End: 04-25-2023 ambulatory Imad Asaad Other [facility] Other Start: 04-25-2023 FQ[facility] visit new patient Imad Asaad [facility] Start: 01-18-2023 End: 01-18-2023 Emergency department patient visit Divina Araya Facility:[facility] Start: 12-29-2022 End: 12-29-2022 Emergency department patient visit Vivian Nieto Facility:[facility] Start: 12-29-2022 End: 12-29-2022 Emergency department patient visit DO Divina Araya Work Phone: [facility] Work Phone: Start: 11-06-2022 End: 11-07-2022 ambulatory Kayy Gudimella Facility:[facility] Start: 11-06-2022 End: 11-06-2022 Patient encounter procedure Kayy Gudimella [facility] Start: 07-22-2022 End: 07-24-2022 Evaluation and management of inpatient DR MOIRA TALBERT Facility:[facility] Start: 07-09-2022 End: 07-09-[address] RONA SALDANA Facility:[facility] Start: 07-04-2022 End: 07-04-[address] RONA SALDANA Facility:[facility] Start: 06-21-2022 End: 06-22-[address] YENNI ROSE Facility:[facility] Start: 05-07-2022 End: 05-08-[address] RONA SALDANA Facility:[facility] Start: 04-24-2022 End: 04-24-[address] RONA SALDANA Facility:[facility] Start: 04-10-2022 End: 04-11-[address] RONA SALDANA Facility:[facility] Start: 03-07-2022 End: 03-08-[address] RONA SALDANA Facility:[facility] Start: 01-26-2022 End: 01-27-[address] RONA SALDANA Facility:[facility] Start: 12-25-2021 End: 12-26-[address] RONA SALDANA Facility:[facility] Procedures Date Procedure Procedure Detail Performing Clinician Start: 10-13-2023 Plain chest X-ray DO Divina Araya Work Phone: Start: 09-28-2023 SARS-CoV-2, Influenza & RSV (PCR) DO Divina Araya Work Phone: Start: 09-28-2023 Urine culture DO Divina Araya Work Phone: Start: 09-28-2023 Computed tomography of abdomen and pelvis with contrast DO Divina Araya Work Phone: Start: 09-28-2023 Plain chest X-ray DO Divina Araya Work Phone: Start: 09-10-2023 Esophagogastroduodenoscopy DO Divina Araya Work Phone: Start: 07-27-2023 Computed tomography of abdomen and pelvis with contrast DO Divina Araya Work Phone: Start: 06-03-2023 Colonoscopy DO Divina Araya Work Phone: Start: 05-08-2023 Microbial ova-parasite examination, fecal DO Divina Araya Work Phone: Start: 05-08-2023 Ova and Parasite Result 1 DO Divina nicholson Work Phone: Start: 05-08-2023 Ova OR parasites identification DO Divina Araya Work Phone: Start: 07-23-2022 Delivery of Products of Conception, External Approach DR RONA SALDANA Start: 07-23-2022 Division of Female Perineum, External Approach DR RONA SALDANA Start: 07-23-2022 Repair Perineum Muscle, Open Approach DR RONA SALDANA Plan of Treatment Date Care Activity Detail Author Start: 10-13-2023 [facility] Start: 09-28-2023 Bacteria identified in Urine by Culture [facility] Start: 09-10-2023 [facility] Start: 06-03-2023 [facility] Start: 05-08-2023 Ova and Parasite Concentrate Exam Ova and Parasite Concentrate Exam [facility] Start: 12-29-2022 Bacteria identified in Urine by Culture [facility] aPTT in Platelet poo r plasma by Coagulation assay [facility] Calprotectin [Mass/m ass] in Stool [facility] Elastase.pancreatic [Mass/mass] in Stool [facility] Fibrin D-dimer [Pres ence] in Platelet poor plasma by Latex agglutination [facility] INR in Platelet poor plasma by Coagulation assay [facility] Ova and parasites identified in Unspecified specimen by Light microscopy [facility] Patient Education [facility] Work Phone: Patient referral [facility] Work Phone: Prothrombin time (PT) [facility] Immunizations Immunization Date Immunization Notes Care Provider Fa cility NEGATED: Highlighted row has not occurred!11-06-2022 influenza virus vaccine, unspecified formulation [facility] NEGATED: Highlighted row has not occurred!11-06-2022 SARS-CoV-2 mRNA (tozinameran 5y-11y) vaccine [facility] Payers Date Payer Category Payer Self-pay [id number] 2013 Unknown HCAP/HFA/FAP Active [id number] 2002 Unknown [id number] 2.16.84 0.1.812528.3.579.2.593 2002 Unknown [id number] 2.16.84 0.1.137822.3.579.2.593 2002 Unknown [id number] 2.16.84 0.1.772936.3.579.2.593 2002 Unknown [id number] 2.16.84 0.1.734781.3.579.2.593 2002 Unknown [id number] 2.16.84 0.1.067679.3.579.2.593 2002 Unknown [id number] 2.16.84 0.1.570271.3.579.2.593 2002 Unknown [id number] 2.16.84 0.1.022169.3.579.2.593 2002 Unknown [id number] 2.16.84 0.1.389093.3.579.2.593 2002 Unknown [id number] 2.16.84 0.1.795709.3.579.2.593 2002 Unknown [id number] 2.16.84 0.1.546464.3.579.2.593 2002 Unknown [id number] 2.16.8 40.1.911146.3.579.2.727 2002 Unknown [id number] 2.16.84 0.1.043489.3.579.2.1259 2002 Unknown [id number] 2.16.84 0.1.579774.3.579.2.1259 1959 Unknown [id number] Unknown [id number] 2.16.84 0.1.494244.3.579.2.593 Unknown [id number] 2.16.8 40.1.993623.3.579.2.531 Unknown [id number] 2.16.8 40.1.676972.3.579.2.531 Unknown [id number] 2.16.8 40.1.941416.3.579.2.531 Unknown [id number] 2.16.8 40.1.050186.3.579.2.531 Unknown [id number] 2.16.8 40.1.285952.3.579.2.531 Unknown [id number] 2.16.8 40.1.457545.3.579.2.531 Unknown [id number] 2.16.8 40.1.060567.3.579.2.531 Unknown [id number] 2.16.8 40.1.450502.3.579.2.531 Social History Date Type Detail Facility Start: 11-06-2022 End: 06-03-2023 Tobacco smoking status Never smoked tobacco (finding) [facility] Tobacco smoking status Never [facility] Sex Assigned At Female [facility] Start: 2002 Sex Assigned At Female [facility] Start: 09-10-2023 End: 10-13-2023 Tobacco smoking status [facility] Smoker (finding) [facility] Goals Date Patient Goal Desired Activity /State Functional Status Date Assessment Result Facility 11-06-2022 Functional Status N/A [facility] Clinical Notes 11-06-2022 to 09-28-2023 Note Date & Type Note Facility 09-28-2023 Hospital Discharg e instructions Additional Instructions Use albuterol inhaler 2 puffs every 4-6 hours if needed for wheezing or shortness of breath Zofran for nausea vomiting Push fluids Rest Good handwashing Steroids as directed Take antibiotics as instructed until gone Return here if you have any shortness of breath, chest pain, vomiting unable to keep anything down, or any other concerns [facility] Work Phone: 09-10-2023 Procedure note [facility] 07-11-2023 Evaluation note Encounter Date Diagnosis Assessment Notes Jul, Diarrhea (ICD-10 - R19.7) Jul, Weight loss (ICD-10 - R63.4) [facility] Other 09-25-2023 History and physical note Author Jordi Seals [facility] June 03, 2023 9:43am Note Date/Time June 03, 2023 9:43am [facility] [address] [place] [address] Gastroenterology H&P Signed Patient: Dawn Cuellar MR#: [id number] : 2000 Acct:[id number] Age/Sex: 23 / F Adm Date: 3 Loc: Room: Type: [facility] Attending Dr: Jordi Seals MD Copies to: Geena Araya Jr, DO Jordi Seals MD~ Date of Service: 06/03/2023 HISTORY & PHYSICAL: Patient's history with special attention to the cardiovascular, pulmonary systems and the current problem was reviewed with the patient immediately prior to the procedure. Present medications and doses reviewed in the EMR. Allergies and pertinent laboratory tests were also reviewedat this time in the EMR. The physical examination, as below, was then performed. Indication, assessment and HPI: 23-year-old female here for colonoscopy for evaluation of alternating diarrhea and constipation and unintentional weight loss Family history of GI malignancy? No PHYSICAL EXAMINATION Mouth and Pharynx : Moist mucus membranes, normal dentition Cardiac: Regular rate, regular rhythm Pulmonary: Clear to auscultation bilaterally, no wheezing Neurological: Alert and oriented x3, no focal deficits noted Abdomen: Abdomen soft, non-tender REVIEW OF SYSTEMS Constitutional: Denies malaise, fevers Cardiovascular: Denies chest pain, palpitations Respiratory: Denies shortness of breath, wheezing Gastrointestinal: Per HPI Genitourinary: Denies dysuria, polyuria Musculoskeletal: Denies joint swelling, joint stiffness Neurological: Denies numbness, tingling Integumentary: Denies rashes, skin lesions Endocrine: Denies fatigue, weight loss Written informed consent obtained from the patient. Risks (including but not limited to perforation, infection, bloating, bleeding, need for emergent surgeryand loss of life), benefits and alternatives explained and questions answered. The patient verbalized understanding. Based on history patient is an appropriate candidate for the procedure. Jordi Seals M.D. Documented By: Jordi Seals MD 06/03/23941 Signed By: <Electronically signed by Jordi Seals MD> 06/03/23942 [facility] Work Phone: [phone] 176-183909-25-2023 [facility]* Encounter Date Diagnosis Assessment Notes Treatment Notes Treatment Clinical Notes Apr, Diarrhea (ICD-10 - R19.7) Patient was seen in the ER and was advise by ER to see steamtable worker Patient will have labs done ordered today Apr, Unintentional weight loss (ICD-10 - R63.4) Patient is to have a colonoscopy that it will be scheduled today prep instructions given in office today Risks and benefits of procedure explained to patient; patient verbalizes understanding. [facility] Other 02-28-2023 Hospital Discharge instructions Follow Up Care 11/06/2022 13:26:54 With:Kayy Fontana MD, [facility], [facility] Address: [address] [place] [phone] When: only if needed [facility] Evaluation noteNo assessment information available [facility] Work Phone: History and physical note Author Jordi Seals [facility] September 10, 2023 9:00am Note Date/Time September 10, 2023 9: 00am [facility] [address] [place] [address] Gastroenterology H&P Signed Patient: Dawn Cuellar MR#: [id number] : 2000 Acct:[id number] Age/Sex: 23 / F Adm Date: 4 Loc: Room: Type: [facility] Attending Dr: Jordi Seals MD Copies to: G George Araya Jr, DO Jordi Seals MD~ Date of Service: 09/10/2023 HISTORY & PHYSICAL: Patient's history with special attention to the cardiovascular, pulmonary systems and the current problem was reviewed with the patient immediately prior to the procedure. Present medications and doses reviewed in the EMR. Allergies and pertinent laboratory tests were also reviewedat this time in the EMR. The physical examination, as below, was then performed. Indication, assessment and HPI: 23-year-old female here for EGD for evaluation of abdominal pain diarrhea and weight loss Family history of GI malignancy? No PHYSICAL EXAMINATION Mouth and Pharynx : Moist mucus membranes, normal dentition Cardiac: Regular rate, regular rhythm Pulmonary: Clear to auscultation bilaterally, no wheezing Neurological: Alert and oriented x3, no focal deficits noted Abdomen: Abdomen soft, non-tender REVIEW OF SYSTEMS Constitutional: Denies malaise, fevers Cardiovascular: Denies chest pain, palpitations Respiratory: Denies shortness of breath, wheezing Gastrointestinal: Per HPI Genitourinary: Denies dysuria, polyuria Musculoskeletal: Denies joint swelling, joint stiffness Neurological: Denies numbness, tingling Integumentary: Denies rashes, skin lesions Endocrine: Denies fatigue, weight loss Written informed consent obtained from the patient. Risks (including but not limited to perforation, infection, bloating, bleeding, need for emergent surgeryand loss of life), benefits and alternatives explained and questions answered. The patient verbalized understanding. Based on history patient is an appropriate candidate for the procedure. Jordi Seals M.D. Documented By: Jordi Seals MD 09/10/23 0858 Signed By: <Electronically signed by Jordi Seals MD> 09/10/23 0900 [facility] Work Phone: History general Narrative - Reported* Type Description Date Medical History hx of acid reflux Medical History lactose intolerance Surgical History FINGER SURGERY Hospitalization History 2.5 weeks old for milk a llergy [facility] Other Hospital course Narrative No data available for this section [facility] Hospital Discharge instructions Additional Instructions Eat a bland diet nothing spicy fast food fried Increase oral fluids especially water Gatorade Pedialyte May take the dicyclomine 3 times a day for abdominal cramping loose stools May take the Zofran every 8 hours for nausea vomiting Follow-up with gastroenterology as scheduled Return to an ER for more severe pain high fever vomiting or any other concerns [facility] Work Phone: Hospital Discharge instructions Additional Instructions DISCHARGE INSTRUCTIONS FOR COLONOSCOPY WHAT TO EXPECT: - You may feel full, gassy or cramping after your procedure. In some cases, this may be from a few hours to a day. Walking may help relieve the discomfort. - You should begin to recover from anesthesia within 1 hour of the procedure, however may feel groggy for the next 24 hours. DO's AND DON'Ts: - Call your doctor right away if you have a hard abdomen, severe pain, are passing lots of bright red blood or clots. - Call your doctor if you develop any rashes, hives or difficulty breathing. - Let your doctor know if you have not had a bowel movement by 3 days after your procedure. - If you take 81 mg aspirin for your heart it is safe to resume this medication. - If you take other blood thinner medications your doctor will instruct you when these can safely be resumed. - Do NOT drive for 24 hours. - Do NOT operate machinery such as power tools, lawn mowers, snow blowers, sewing machines, etc. for 24 hours. - Avoid alcoholic beverages and drugs for allergies, nerves, or sleep. - Do NOT stay alone. Do NOT leave your child unattended. - Do NOT make important personal or business decisions or sign any legal documents. - Eat solid foods and drink liquids in smaller amounts than usual until normal appetite returns. If you should experience an upset stomach, liquids high in sugar content (soda, Marvin-Aid, non-acid juices) are recommended. - You can resume normal activities tomorrow. FOLLOW UP & RECOMMENDATIONS: -Notify the doctor if you have any problems. -Repeat colonoscopy at the age of 47 -Follow up with PCP. -Office number [phone]. [facility] Work Phone: Hospital Discharge instructions Additional Instructions DISCHARGE INSTRUCTIONS FOR UPPER ENDOSCOPY WHAT TO EXPECT: - You may feel full, gassy or cramping after your procedure. In some cases, this may be from a few hours to a day. Walking may help relieve the discomfort. - Your throat may feel sore today from the scope that the doctor passed through your throat to visualize your stomach. Take a throat lozenge or suck on ice to ease the discomfort. - You may notice some streaks of blood in your sputum if the doctor has taken a biopsy. - You should begin to recover from anesthesia within 1 hour of the procedure, however may feel groggy for the next 24 hours. DO's AND DON'Ts: - Call your doctor right away if you have a hard abdomen, severe pain, vomiting or if you cough up large amounts of blood. - Call your doctor if you develop any rashes, hives or difficulty breathing. - If you take 81 mg aspirin for your heart it is safe to resume this medication. - If you take other blood thinner medications your doctor will instruct you when these can safely be resumed. - Do NOT drive for 24 hours. - Do NOT operate machinery such as power tools, [employer] mowers, snow [employer]wers, sewing machines, etc. for 24 hours. - Avoid alcoholic beverages and drugs for allergies, nerves, or sleep. - Do NOT stay alone. Do NOT leave your child unattended. - Do NOT make important personal or business decisions or sign any legal documents. - Eat solid foods and drink liquids in smaller amounts than usual until normal appetite returns. If you should experience an upset stomach, liquids high in sugar content (soda, Marvin-Aid, non-acid juices) are recommended. - Do NOT smoke. - Do take it easy today. You need not stay in bed, but avoid strenuous activities such as jogging or working out. FOLLOW UP & RECOMMENDATIONS: -Notify the doctor if you have any problems. -Follow up pathology -Follow up in the office as scheduled -Office number [phone]. [facility] Work Phone: Progress note No data available for this section [facility] Reason for referral (narrative) , [facility] GI please Referred by: Kayy Fontana MD [facility] Summary Purpose Family History No Family History Records Found Relationship Condition Age at Onset Recorded Date/T branden sister Atrial fibrillation Unknown grandparent Heart disease Unknown Malignant neoplasm Unknown Advance Directives No Advanced Directives Records Found Advance Directive Response Recorded Date/ Time Advance Directives No January 09, 2018 5:58pm Advance Directive Response Recorded Date/ Time Advance Directives No January 09, 2018 4:58pm Chief Complaint and Reason for Visit Chief Complaint nausea,no appetite Chief Complaint R19.7 Chief Complaint R19.7 Weight Loss, Diarrhea Chief Complaint R19.7 Weight Loss, Diarrhea R63.4 R19.7 Chief Complaint R63.4 R19.7 Weight Loss Chief Complaint R63.4 R19.7 Weight Loss abd pain, cough,vomiting Chief Complaint R63.4 R19.7 Weight Loss abd pain, cough,vomiting trouble breathing Additional Source Comments INFORMATION SOURCE (unrecogn ized section and content) DATE CREATED AUTHOR 08/07/2022 [facility] DATE CREATED AUTHOR AUTHOR'S ORGANIZ ATION 11/15/2022 [place] DATE CREATED AUTHOR AUTHOR'S ORGANIZ ATION 10/23/2023 [facility] DATE CREATED AUTHOR AUTHOR'S ORGANIZ ATION 12/21/2023 [facility] EPIC Care Teams (unrecognized sec tion and content) Team Status: Active Member Role Status Dates Divina Araya DO Primary Care Provider Active Team Status: Inactive Member Role Status Dates Divina Araya DO Primary Care Provider Active Vivian Nieto , INCIDENT ENGINEER-BC Emergency Provider Active Goals (unrecognized section and content) Goals may be documented in a n alternate section REASON FOR VISIT (unrecogniz ed section and content) PATIENT IS HERE FOR COMPLAIN TS OF DIARRHEAorder FOR RECORDS PERTAINING TO PATIENTS WHO ARE OR HAVE BEEN ENROLLED IN A CHEMICAL DEPENDENCY/SUBSTANCEABUSE PROGRAM, SOME INFORMATION MAY BE OMITTED. This clinical summary was aggregated from multiple sources. Caution should be exercised in using it in the provision of clinical care. This summary normalizes information from multiple sources, and as a consequence, information in this document may materially change the coding, format and clinical context of patient data. In addition, data may be omitted in some cases. CLINICAL DECISIONS SHOULD BE BASED ON THE PRIMARY CLINICAL RECORDS. [facility] [employer] [facility]. provides no warranty or guarantee of the accuracy or completeness of information in this document.
[2024-04-05] MEDS: ACETAMINOPHEN 500 MG TABLET 1000 MG PO (17:16)
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
[2024-04-05 18:31] VITALS: PULSE 89; O2SAT 99
== END 2024-04-05 18:32 | disposition home or self-care (01) ==
PROVIDERS: Emergency Provider Emergency Medicine; PCP Family Medicine
DX: Z04.1 Encounter for examination and observation following transport accident (principal); V43.52XA Car driver injured in collision with other type car in traffic accident, initial encounter; W22.10XA Striking against or struck by unspecified automobile airbag, initial encounter
CPT/HCPCS: 70450; 72125; 99284

== ENCOUNTER 2024-12-03 12:46 | Outpatient (OUT) | payer OTHER, SELFPAY ==
[2024-12-03 13:16] LABS: BOX Test Reference Lab UNITY; BOX Test Sent Out UNITY
[2024-12-03 13:57] LABS: Estimated Average Glucose 97 mg/dL
[2024-12-03 13:58] LABS: Amphetamine Screen Urine NEGATIVE (NEGATIVE); Barbiturates Screen Urine NEGATIVE (NEGATIVE); Benzodiazepines Screen Urine NEGATIVE (NEGATIVE); Buprenorphine Screen Urine NEGATIVE (NEGATIVE); Cannabinoid Screen Urine POSITIVE (NEGATIVE); Cocaine Screen Urine NEGATIVE (NEGATIVE); Methadone Screen Urine NEGATIVE (NEGATIVE); Methamphetamines Screen Urine NEGATIVE (NEGATIVE); Opiate Screen Urine NEGATIVE (NEGATIVE); Oxycodone Screen Urine NEGATIVE (NEGATIVE); Phencyclidine Screen Urine NEGATIVE (NEGATIVE); Tricyclic Antidepressant Urine NEGATIVE (NEGATIVE)
[2024-12-03 13:59] LABS: Basophils Percent Auto 0.2 % (0.2-2.0); Eosinophils Absolute Auto 0.2 10^3/uL (0.0-0.7); Eosinophils Percent Auto 1.6 % (0.9-7.0); Hematocrit 37.7 % (36.0-48.0); Hemoglobin 12.9 g/dL (12.0-16.0); Immature Granulocytes Abs Auto 0.05 10^3/uL (0.00-0.03); Immature Granulocytes Pct Auto 0.4 % (0.0-0.5); Lymphocytes Absolute Auto 1.7 10^3/uL (1.2-3.8); Lymphocytes Percent Auto 14.4 % (20.5-60.0); Mean Corpuscular HGB Conc 34.2 g/dL (29.9-35.2); Mean Corpuscular Hemoglobin 30.1 pg (26.7-34.0); Mean Corpuscular Volume 88.1 fL (81.0-99.0); Monocytes Absolute Auto 0.4 10^3/uL (0.3-0.8); Monocytes Percent Auto 3.5 % (1.7-12.0); Neutrophils Absolute Auto 9.7 10^3/uL (1.4-6.5); Neutrophils Percent Auto 79.9 % (43.0-75.0); Platelet Count 251 10^3/uL (150-450); Red Blood Count 4.28 10^6/uL (4.20-5.40); Red Cell Distribution Width 13.6 % (11.0-15.0); White Blood Count 12.1 10^3/uL (4.0-11.0)
[2024-12-04 04:15] LABS: Rubella Antibodies, IgG 4.15 index (Immune >0.99)
[2024-12-04 05:10] LABS: HCV Ab Non Reactive (Non Reactive); HIV Ab/p24 Ag Screen Non Reactive (Non Reactive)
[2024-12-04 06:11] LABS: HBsAg Screen Negative (Negative)
[2024-12-04 11:08] LABS: Rapid Plasma Reagin, Quant Non Reactive titer (NonRea<1:1)
[2024-12-07 10:20] LABS: Cannabinoid Positive (.); Carboxy THC Conf, MS, UR 319 ng/mL (Cutoff=10)
== END 2024-12-03 12:47 | disposition home or self-care (01) ==
LOC: LAB 12:50
PROVIDERS: PCP Family Medicine; Visit Provider Obstetrics & Gynecology
DX: Z34.01 Encounter for supervision of normal first pregnancy, first trimester (principal); Z36.0 Encounter for antenatal screening for chromosomal anomalies; N92.6 Irregular menstruation, unspecified
CPT/HCPCS: 36415; 80307; 80349; 83036; 85025; 86592; 86762; 86803; 86850; 86900; 86901; 87086; 87340; 87389

== ENCOUNTER 2025-01-25 20:28 | Outpatient (REF) | payer OTHER, SELFPAY ==
--- OUTSIDE RECORDS SUMMARY | 2025-01-25 20:31 | XMS_ITS | CCD ---
Author Organization [facility] Care Team Providers Care Pie Filler Name Role Phone KIRBY, DR REA Consulting Unavailable KALOTTIE, DR Geena FIELDS Primary Care Unavailable KIRBY, DR REA Attending Unavailable KIRBY, DR REA Admitting Unavailable KIRBY, DR REA Consulting Unavailable REQUEST, DR NONE LISTED Primary Care Unavaila ble KIRBY, DR REA Attending Unavailable KIRBY, DR REA Admitting Unavailable KIRBY, DR REA Consulting Unavailable REQUEST, DR NONE LISTED Primary Care Unavaila ble KIRBY, DR REA Attending Unavailable KIRBY, DR REA Admitting Unavailable KIRBY, DR REA Consulting Unavailable REQUEST, DR NORIEGA LISTED Primary Care Unavaila ble KIRBY, DR REA Attending Unavailable KIRBY, DR REA Admitting Unavailable KIRBY, DR REA Consulting Unavailable KAFTAN, DR Geena FIELDS Referring Unavailable REQUEST, DR NORIEGA LISTED Primary Care Unavaila ble KIRBY, DR REA Attending Unavailable KIRBY, DR ERA Admitting Unavailable ZIEBER, DR MARTIN Artis Consulting Unavailable KIRBY, DR REA Consulting Unavailable REQUEST, DR NORIEGA LISTED Primary Care Unavaila ble KIRBY, DR REA Attending Unavailable KIRBY, DR REA Admitting Unavailable WEST, DR YENNI Calderon Consulting Unavailable REQUEST, DR NORIEGA LISTED Primary Care Unavaila ble KIRBY, DR REA Attending Unavailable KIRBY, DR REA Admitting Unavailable KIRBY, DR REA Consulting Unavailable KIRBY, DR REA Consulting Unavailable KAFTAN, DR Geena FIELDS Primary Care Unavailable KIRBY, DR REA Attending Unavailable KIRBY, DR REA Admitting Unavailable ZIEBER, DR MARTIN Artis Consulting Unavailable KIRBY, DR REA Consulting Unavailable KALAURAAN, DR Geena FIELDS Primary Care Unavailable KIRBY, DR REA Attending Unavailable KIRBY, DR REA Admitting Unavailable KARASIK, DR PIZARRO Consulting Unavailable KIRBY, DR REA Attending Unavailable KIRBY, DR REA Admitting Unavailable REQUEST, NONE LISTED Primary Care Unavaila ble KIRBY, DR REA Consulting Unavailable SUZY JAQUEZ Consulting Unavailable KIRBY, DR REA Procedure Practitioner Unavailab le KIRBY, DR REA Consulting Unavailable REQUEST, NONE LISTED Primary Care Unavaila ble KIRBY, DR REA Attending Unavailable KIRBY, DR REA Admitting Unavailable Felisha Fontanaeti Attending Unavailable DO Divina [facility]a [facility] Emergency Provider Bozena Imad Unavailable DO Divina Araya Primary Care Provider MD Jordi Seals Attending Provider DO Divina Araya Primary Care Provider [phone] MD Jordi Seals Attending Provider DO Divina Araya Primary Care Provider MD Jordi Seals Attending Provider [phone] VANESSA Roberson Emergency Provider DO Charlie Wells Emergency Provider DO Divina Araya Primary Care Provider MIGUEL Phipps Emergency Provider DO Paramjit Yanes Emergency Provider Zachary Araya DO Primary Care Provider Zachary Araya DO Unavailable Martin Paige Unavailable Paramjit Yanes DO Emergency Provider Divina Araya DO Primary Care Provider Frank Castillo MD Attending Provider Derek Phipps PA-C Emergency Provider Charlie Wells Attending Unavailable Divina Araya Primary Care Unavailable Charlie Wells Admitting Unavailable Divina Araya Primary Care Unavailable Derek Phipps Admitting Unavailable Derek Phipps Attending Unavailable Divina Araya Primary Care Unavailable Paramjit Yanes Admitting Unavailable Paramjit Yanes Attending Unavailable Divina Araya Primary Care Unavailable Derek Phipps Admitting Unavailable Derek Phipps Attending Unavailable Divina Araya Primary Care Unavailable Frank Castillo Admitting Unavailab Frank Duran Attending Unavailab Divina Vasquez Primary Care Unavailable Paramjit Yanes Admitting Unavailable Paramjit Yanes Attending Unavailable ZACHARY ARAYA Attending Unavailable ZACHARY ARAYA Attending Unavailable ZACHARY ARAYA Referring Unavailable ZACHARY ARAYA Referring Unavailable DEMARCO ORR Attending Unavailable ZCAHARY ARAYA Attending Unavailable CARLOS AZRAGOZA Attending Unavailable ANUM TANG Attending Unavailable Allergies Allergy Classification Reported Allergen(s) Allergy Type Date of Onset Reaction(s) Facility (4 sources) Amoxicillin Drug Allergy 4 Unknown Reaction [facility] Repository (6 sources) Milk Drug allergy (disorder) 4 Unknown, Unknown Reaction [facility] (19 sources) Amoxicillin; Translations: [amoxicillin] Drug Allergy 3 Weal (disorder), Unknown [facility] (16 sources) Cow milk Allergy to substance 4 Unknown [facility] Healthcare (16 sources) Lactase Drug Allergy 0 Diarrhea [facility] Healthcare (1 source) Amoxicillin Drug Allergy 5 [facility] Repository (1 source) Milk Drug allergy (disorder) 5 [facility] Repository Medications Current Medications Medication Drug Class(es) Dates Sig (Normalized) Sig (Original) [id number] 200 actuat albuterol 0.09 mg/actuat metered dose inhaler (20 sources) beta2-Adrenergic Agonist Start: 12-20-2023 take 2 puff(s) by inhalation every four hours for wheezing albuterol HFA 90 mcg/act inhaler Indications: Mild intermittent asthma, unspecified whether complicated ([facility]) Inhale 2 puffs every 4 (four) hours if needed for wheezing or shortness of breath 18 g 3 12/20/2023 Active Start: 10-13-2023 End: 04-17-2024 Albuterol Sulfate 2.5 mg /3 mL (0.083 %) solution for nebulization Discontinued MG October 13, 2023 12:00am April 17, 2024 8:55am citalopram 10 mg oral tablet (18 sources) Serotonin Reuptake Inhibitor Start: 04-29-2024 End: 11-05-2024 take 1 tablet by mouth once daily citalopram (CeleXA) 10 MG tablet Indications: PTSD (post-traumatic stress disorder) ([facility]) Take 1 tablet (10 mg) by mouth Daily 30 tablet 04/30/2024 11/05/2024 Discontinued Start: 12-29-2022 End: 01-18-2023 take 1 tablet by mouth once daily Citalopram 10 mg tablet Discontinued 10 MG PO Daily December 28, 2022 11:00pm January 18, 2023 8:58am dicyclomine hydrochloride 20 mg oral tablet (20 sources) Anticholinergic Start: 04-17-2024 End: 11-05-2024 dicyclomine (Bentyl) 20 MG tablet 04/17/2024 11/05/2024 Discontinued Start: 12-29-2022 End: 01-18-2023 take 1 tablet by mouth three times daily as needed Dicyclomine 20 mg tablet Discontinued 20 MG PO Three times daily as needed for abdominal discomfort December 28, 2022 11:00pm January 18, 2023 8:58am fluticasone propionate 0.05 mg/actuat metered dose nasal spray (8 sources) Corticosteroid Start: 04-29-2024 End: 04-30-2025 take 2 spray(s) nasal route once daily fluticasone (Flonase) 50 MCG/ACT nasal spray Indications: Allergic urticaria Administer 2 sprays into each nostril Daily Shake gently. Before first use, prime pump. After use, clean tip and replace cap. 16 g 11 04/30/2024 11/05/2024 Discontinued hydrOXYzine hydrochloride 25 mg oral tablet (9 sources) Antihistamine Start: 04-07-2024 End: 11-05-2024 take 1 tablet by mouth three times daily as needed hydrOXYzine HCl (Atarax) 25 MG tablet Indications: Nausea , Anxiety Take 1 tablet (25 mg) by mouth 3 (three) times a day as needed for itching 30 tablet 04/07/2024 11/05/2024 Discontinued ibuprofen 600 mg oral tablet (19 sources) Nonsteroidal Anti-inflammatory Drug Start: 04-07-2024 End: 11-05-2024 take 1 tablet by mouth in the morning, then take 1 tablet by mouth in the evening, then take 1 tablet by mouth at bedtime ibuprofen 600 MG tablet Indications: Chest pain, unspecified type , Post-traumatic headache, not intractable, unspecified chronicity pattern Take 1 tablet (600 mg) by mouth in the morning and 1 tablet (600 mg) in the evening and 1 tablet (600 mg) before bedtime. 40 tablet 04/07/2024 11/05/2024 Discontinued Start: 02-09-2018 End: 10-12-2020 take 1 tablet by mouth three times daily as needed for pain Ibuprofen 400 mg tablet Discontinued 400 MG PO Three times daily as needed for pain February 08, 2018 11:00pm October 12, 2020 5:28pm lidocaine 0.05 mg/mg medicated patch (1 source) Antiarrhythmic, Amide Local Anesthetic Start: 09-21-2024 apply 1 dose topically every twenty-four hours Lidocaine 5 % adhesive patch,medicated Active 1 PATCH TOPICAL Q24H September 21, 2024 12:00am leave on most painful area for up to 12 hrs methocarbamol 750 mg oral tablet (1 source) Muscle Relaxant Start: 09-21-2024 take 1 tablet by mouth three times daily Methocarbamol 750 mg tablet Active 750 MG PO Three times daily September 21, 2024 12:00am naproxen 500 mg oral tablet (1 source) Nonsteroidal Anti-inflammatory Drug Start: 09-21-2024 take 1 tablet by mouth twice daily as needed for pain Naproxen (Naprosyn) 500 mg tablet Active 500 MG PO Twice daily as needed for pain September 21, 2024 12:00am [place] (No Known Home Meds) (5 sources) Start: 06-29-2024 [place] (No Known Home Meds) Active June 29, 2024 12:00am Start: 01-18-2023 [place] (No Kn own Home Meds) Active January 17, 2023 11:00pm Start: 01-18-2023 [place] (No Kn own Home Meds) Active January 18, 2023 12:00am ondansetron 4 mg disintegrating oral tablet (20 sources) Serotonin-3 Receptor Antagonist Start: 04-17-2024 End: 11-05-2024 ondansetron ODT (Zofran-ODT) 4 MG disintegrating tablet Four times daily 04/17/2024 11/05/2024 Discontinued Start: 09-28-2023 End: 04-17-2024 take 1 tablet by mouth every eight hours Ondansetron 4 mg tablet,disintegrating Discontinued 4 MG PO Q8H 9 September 28, 2023 12:00am April 17, 2024 8:55am Start: 12-29-2022 End: 01-18-2023 take 1 tablet by mouth every eight hours as needed for nausea and vomiting Ondansetron 4 mg tablet,disintegrating Discontinued 4 MG PO Q8H as needed for nausea and vomiting December 28, 2022 11:00pm January 18, 2023 8:58am polyethylene glycol 3350 [id number] mg / potassium chloride 2970 mg / sodium bicarbonate 6740 mg / sodium chloride 5860 mg / sodium sulfate 04312 mg powder for oral solution (2 sources) Osmotic Laxative Start: 04-25-2023 take 236 g by mouth once Golytely 236 GM as directed Orally once for 1 days Apr, Active Upgnvivo-Lhj-Ik-FA ( 1 + IRON PO) (3 sources) Hvhvustc-Dwd-Gq- FA ( 1 + IRON PO) Take 1 tablet by mouth Daily Active Completed/Discontinued Medications Medication Drug Class(es) Dates Sig (Normalized) Sig (Original) ARIPiprazole 5 mg oral tablet (10 sources) Atypical Antipsychotic Start: 06-29-2024 End: 06-29-2024 Aripiprazole Discontinued MG TABLET June 29, 2024 12:00am June 29, 2024 11:00am Start: 04-29-2024 End: 11-05-2024 Aripiprazole 5 mg tablet Dis continued MG TABLET June 28, 2024 11:00pm June 29, 2024 10:00am cyclobenzaprine hydrochloride 10 mg oral tablet (4 sources) Muscle Relaxant Start: 10-13-2023 End: 04-17-2024 take 1 tablet by mouth three times daily as needed for muscle spasms Cyclobenzaprine 10 mg tablet Discontinued 10 MG PO Three times daily as needed for muscle spasm October 13, 2023 12:00am April 17, 2024 8:55am diclofenac sodium 0.01 mg/mg topical gel (4 sources) Nonsteroidal Anti-inflammatory Drug Start: 10-13-2023 End: 04-17-2024 Diclofenac Sodium (Voltaren Arthritis Pain) 1 % gel Discontinued 2 GM TOPICAL Four times daily as needed for pain October 13, 2023 12:00am April 17, 2024 8:55am apply to single elbow, wrist or hand; for hand includes palm/fingers/back of hand doxycycline hyclate 100 mg oral tablet (5 sources) Tetracycline-class Drug Start: 09-28-2023 End: 10-13-2023 take 1 tablet by mouth twice daily Doxycycline Hyclate 100 mg tablet Discontinued 100 MG PO Twice daily 28 06September 28, 2023 12:00am October 13, 2023 1:14pm Norethindrone-E.Estra diol-Iron (10 sources) Estrogen Start: 02-09-2018 End: 10-12-2020 Norethindrone-E.Estr adiol-Iron (09/28 ()) 1 mg-20 mcg (21)/75 mg (7) tablet Discontinued 1 TAB PO Daily February 08, 2018 11:00pm October 12, 2020 5:28pm Start: 02-09-2018 End: 10-12-2020 Norethindrone-E.Estradiol-Ir on (09/28 ()) 1 mg-20 mcg (21)/75 mg (7) tablet Discontinued 1 TAB PO Daily February 09, 2018 12:00am October 12, 2020 6:28pm metroNIDAZOLE 500 mg oral tablet (10 sources) Nitroimidazole Antimicrobial Start: 07-29-2020 End: 10-12-2020 take 1 tablet by mouth three times daily Metronidazole 500 mg tablet Discontinued 500 MG PO Three times daily July 29, 2020 12:00am October 12, 2020 5:28pm norethindrone 0.35 mg oral tablet (11 sources) Start: 12-29-2022 End: 01-18-2023 take 1 tablet by mouth once daily Norethindrone (Contraceptive) (Jencycla) 0.35 mg tablet Discontinued 0.35 MG PO Daily December 28, 2022 11:00pm January 18, 2023 8:58am Start: 11-06-2022 Jencycla 0.35 mg oral tablet Refills(s) 0 Start Date: 11/06/22 Status: Ordered omeprazole 20 mg delayed release oral capsule (3 sources) Proton Pump Inhibitor Start: 04-17-2024 End: 06-29-2024 take 1 capsule by mouth once daily Omeprazole 20 mg capsule,delayed release(DR/EC) Discontinued 20 MG PO Daily 14 April 16, 2024 11:00pm June 29, 2024 9:59am predniSONE 20 mg oral tablet (5 sources) Start: 09-28-2023 End: 10-13-2023 take 2 tablets by mouth once daily Prednisone 20 mg tablet Discontinued 40 MG PO Daily 6 September 28, 2023 12:00am October 13, 2023 1:14pm Start: 09-28-2023 End: 10-13-2023 take 40 mg by mouth once daily Prednisone Discontinued 40 MG PO Daily 6 September 28, 2023 1:00am October 13, 2023 2:14pm Prenat.Vits,Maximo,Urr-Jsyo-Ryc ic ( Vitamin) Tablet (10 sources) Start: 01-29-2021 End: 12-29-2022 take 1 tablet by mouth once daily Prenat.Vits,Maximo,Cap-Rjpm-Hjnke ( Vitamin) Tablet Discontinued 1 TAB PO Daily January 28, 2021 11:00pm December 29, 2022 11:53am Start: 01-29-2021 End: 12-29-2022 take 1 tablet by mouth once daily Prenat.Vits,Maximo,Sfi-Apzu-Opkxu ( Vitamin) Tablet Discontinued 1 TAB PO Daily January 29, 2021 12:00am December 29, 2022 12:53pm Problems Active Problems Problem Classification Problem Date Documented Da te Episodic/Chronic Anxiety disorders (20 sources) Anxiety; Translations: [Anxiety disorder, unspecified] Onset: 04-09-2023 04-09-2023 Chronic Asthma (18 sources) Asthma; Translations: [Unspecified asthma, uncomplicated] Onset: 04-09-2023 04-09-2023 Chronic Esophageal disorders (17 sources) Gastro-esophageal reflux disease without esophagitis; Translations: [Gastroesophageal reflux disease without esophagitis] Onset: 08-06-2022 04-09-2023 Chronic Fluid and electrolyte disorders (5 sources) Dehydration; Translations: [Dehydration] 09-28-2023 Episodic Hemorrhage during ; abruptio placenta; placenta previa (10 sources) Threatened miscarriage; Translations: [Threatened ] 10-12-2020 Episodic Immunizations and screening for infectious disease (3 sources) Contact with and (suspected) exposure to infections with a predominantly sexual mode of transmission; Translations: [Exposure to sexually transmissible disorder] Onset: 01-31-2022 01-25-2025 Episodic Menstrual disorders (17 sources) Irregular menstruation, unspecified; Translations: [Dysmenorrhea] Onset: 01-26-2022 Chronic Mood disorders (2 sources) Bipolar I disorder; Translations: [Bipolar disorder, unspecified] 04-29-2024 Chronic Nonspecific chest pain (14 sources) Atypical chest pain; Translations: [Other chest [...] applicable or unspecified; Translations: [MAT CARE OTH AK FTL GRTH 3RD TM UNS] Onset: 06-23-2022 Episodic Other complications of (4 sources) Other specified related conditions, third trimester; Translations: [OTH SPEC PREG RELATED COND 3RD TRI] Onset: 07-04-2022 Episodic Other female genital disorders (9 sources) Abnormal vaginal bleeding; Translations: [Abnormal uterine and vaginal bleeding, unspecified] 01-18-2023 Chronic Other female genital disorders (2 sources) Vaginal discharge; Translations: [Other specified noninflammatory disorders of vagina] 01-25-2025 Episodic Other gastrointestinal disorders (2 sources) Irritable bowel syndrome with diarrhea; Translations: [Irritable bowel syndrome with diarrhea] Chronic Other gastrointestinal disorders (12 sources) Diarrhea; Translations: [Diarrhea, unspecified] 12-29-2022 Episodic Other gastrointestinal disorders (2 sources) Altered bowel function; Translations: [Change in bowel habit] Episodic Other gastrointestinal disorders (2 sources) Diarrhea, unspecified Episodic Other non-traumatic joint disorders (1 source) Pain in right shoulder; Translations: [Pain in right shoulder] Onset: 09-21-2024 Episodic Other nutritional; endocrine; and metabolic disorders (2 sources) Abnormal weight loss Episodic Other nutritional; endocrine; and metabolic disorders (1 source) Weight loss; Translations: [Abnormal weight loss] Episodic Other and delivery including normal (16 sources) Single live ; Translations: [Encounter for supervision of other normal , third trimester] Onset: 12-27-2021 Episodic Other screening for suspected conditions (not mental disorders or infectious disease) (16 sources) Encounter for screening for diabetes mellitus; Translations: [Encounter for other specified screening] Onset: 01-26-2022 Episodic Other upper respiratory infections (2 sources) Viral upper respiratory tract infection; Translations: [Acute upper respiratory infection, unspecified] 08-02-2024 Episodic Pneumonia (except that caused by tuberculosis or sexually transmitted disease) (5 sources) Pneumonia; Translations: [Pneumonia, unspecified organism] 09-28-2023 [...] ] Onset: 06-23-2022 Episodic Residual codes; unclassified (10 sources) History of headache; Translations: [Personal history of other specified conditions] 07-29-2020 Episodic Residual codes; unclassified (2 sources) Unprotected sexual intercourse; Translations: [High risk heterosexual behavior] 08-25-2024 Episodic Residual codes; unclassified (2 sources) Gestation period, 14 weeks; Translations: [14 weeks gestation of ] 12-07-2024 Episodic Residual codes; unclassified (2 sources) Gestation period, 21 weeks; Translations: [21 weeks gestation of ] 01-25-2025 Episodic Sprains and strains (1 source) Shoulder strain; Translations: [Strain of unspecified muscle, fascia and tendon at shoulder and upper arm level, right arm, initial encounter] 09-21-2024 Episodic Substance-related disorders (20 sources) Cannabis abuse; Translations: [Cannabis abuse, uncomplicated] Onset: 04-28-2024 04-17-2024 Chronic Substance-related disorders (2 sources) Drug use complicating childbirth; Translations: [Cannabis use, unspecified, uncomplicated] Onset: 08-06-2022 Episodic Syncope (20 sources) Vasovagal syncope; Translations: [Syncope and collapse] 02-08-2022 Episodic Unclassified (1 source) CONTACT W/AND (SUSP) EXPOS COVID-19; Translations: [CONTACT W/AND (SUSP) EXPOS COVID-19] Onset: 08-06-2022 Past or Other Problems Problem Classification Problem Date Documented Date Episodic/Chronic Abdominal pain (20 sources) Abdominal pain; Translations: [Unspecified abdominal pain] Onset: 04-17-2024 12-29-2022 Episodic Allergic reactions (2 sources) Allergic urticaria; Translations: [Allergic urticaria] 04-29-2024 Episodic Attention-deficit, conduct, and disruptive behavior disorders (16 sources) Attention deficit hyperactivity disorder; Translations: [Attention-deficit hyperactivity disorder, unspecified type] Onset: 12-20-2023 Resolved: 12-20-2023 12-20-2023 Chronic Miscellaneous mental health disorders (16 sources) depression; Translations: [ depression] Onset: 12-20-2023 12-20-2023 Episodic Other complications of (4 sources) Other specified related conditions, second trimester; Translations: [OTH SPEC PREG RELATED COND 2ND TRI] Onset: 04-24-2022 Episodic Other lower respiratory disease (1 source) Shortness of breath; Translations: [Shortness of breath] Onset: 10-13-2023 Episodic Other non-traumatic joint disorders (16 sources) Pain of left wrist; Translations: [Pain in left wrist] Onset: 04-09-2023 04-09-2023 Episodic Other non-traumatic joint disorders (16 sources) Multiple joint pain; Translations: [Pain in unspecified joint] Onset: 04-09-2023 04-09-2023 Episodic Residual codes; unclassified (1 source) 25 weeks gestation of ; Translations: [25 WEEKS GESTATION OF ] Onset: 04-26-2022 Episodic Suicide and intentional self-inflicted injury (3 sources) Suicide attempt ; Translations: [Suicide attempt, initial encounter] Onset: 06-29-2024 06-29-2024 Episodic Results Test Name Value Interpretation Reference Range Facility Urinalysis macro (dipstick) panel (U)on 01-25-2025 Bilirubin, UA Negative Negative - 4(70) +++ mg/dL [facility] Blood, UA Negative Negative - 50 Regino/mcL [facility] Clarity, UA Clear [facility] Color, UA Yellow [facility] Glucose, UA Negative Negative - 1999(110) ++++ mg/dL [facility] Interpretation and review of laboratory results Normal [facility] Ketones, UA Negative Negative - 160(16) ++++ mg/dL [facility] Leukocytes, UA Negative Negative - 500+++ Dara/mcL [facility] Nitrite, UA Negative Negative - Positive [facility] pH, UA 7 5 - 9 [facility] Protein, UA Negative Negative - 2000(20) ++++ mg/dL [facility] Spec Grav, UA 1.02 1 - 1.03 [facility] Urobilinogen, UA 0.2 0.2 - 12 mg/dL [facility] BOX TESTon 12-03-2024 BOX TEST SENT OUT [facility] BOX1 UNITY [facility] BOX2 12/03/2024 [facility] BOX [facility] HCG ( test) Ql (U)o n 11-05-2024 Interpretation and review of laboratory results Abnormal [facility] Preg Test, Ur Positive Negative [facility] US OB TRANSVAGINALon 025 US OB TRANSVAGINAL EXAM: US OB TRANSVAG INAL HISTORY: Dating. COMPARISON: None available. TECHNIQUE: Two-dimensional transvaginal grayscale ultrasound imaging of the pelvis was performed. Color Doppler evaluation of the ovaries was also performed. FINDINGS: The uterus demonstrates a normal homogeneous echotexture. The cervix measures 4.3 cm in length and the cervical os is closed. The right ovary measures 2.8 x 1.2 x 2.8 cm and demonstrates a normal echotexture. There is normal color Doppler flow. The left ovary measures 3.6 x 2.0 x 2.2 cm and demonstrates a normal echotexture. There is normal color Doppler flow. No fluid is present within the cul-de-sac. There is a single, live intrauterine gestation identified with a heart rate of 172 beats per minute and a crown-rump length measurement of 2.4 cm, correlating to a gestational age of 9 weeks 0 days (+/- 6 days). There is no subchorionic hemorrhage visualized. A yolk sac is visualized. IMPRESSION: 1. Single, live intrauterine gestation 9 weeks, 3 days by LMP. Today's ultrasound measurements correlate with a gestational age of 9 weeks 0 days (+/- 6 days). MARILUZ by today's ultrasound is 06/10/2025. 2. Normal color Doppler evaluation of the bilateral ovaries. Electronically Signed:Electronically signed by MEGHAN YOUNGBLOOD II, MD, PHD at 07-Nov-2024 07:21:38 AM [facility] Normal Not Available Comment on above: Order Comment: US OB TRANSVAGINAL No LMP recorded. Urinalysis macro (dipstick) panel (U)on 11-05-2024 Bilirubin, UA Negative Negative - 4(70) +++ mg/dL [facility] Blood, UA Negative Negative - 50 Regino/mcL [facility] Clarity, UA Clear [facility] Color, UA Yellow [facility] Glucose, UA Negative Negative - 1999(110) ++++ mg/dL [facility] Interpretation and review of laboratory results Normal [facility] Ketones, UA Negative Negative - 160(16) ++++ mg/dL [facility] Leukocytes, UA Negative Negative - 500+++ Dara/mcL [facility] Nitrite, UA Negative Negative - Positive [facility] pH, UA 7 5 - 9 [facility] Protein, UA Negative Negative - 1999(20) ++++ mg/dL [facility] Spec Grav, UA 1.02 1 - 1.03 [facility] Urobilinogen, UA 0.2 0.2 - 12 mg/dL [facility] X-ray reportOrdered By: Gerardo Hutton on 09-21-2024 Study report [address] [id number] XRay Report Signed Patient: Dawn Cuellar MR#: [id number] : 2000 Acct:[id number] Age/Sex: 24 / F ADM Date: 5 Loc: ER Room: Type: [facility] ER Attending Dr: Copies to: Derek Phipps PA-C~ Ordering Provider: Derek Phipps PA-C Date of Service: 09/21/24 XR/XR shoulder RT min 2V*: Extremity Injury, Upper RIGHT SHOULDER - - 3 views CLINICAL HISTORY: Right shoulder pain, posterior pain in scapula COMPARISON: None FINDINGS: No acute fracture or dislocation. No significant degenerative change. Right lung apex is clear. XR/XR shoulder RT min 2V* IMPRESSION: No acute bony process. Impression dictated by: Micky Hutton M.D.09/21/2024 9:16 PM Dictation Location: [facility]- Transcribed By: [facility] 09/21/242115 Dictated By: Micky Hutton MD 09/21/242114 Signed By: 09/21/242115 [facility] [place] Work Phone: XR shoulder RT min 2V*on XR shoulder RT min 2V* [facility] Main [address] [address] XRay Report Signed Patient: Dawn Cuellar MR#: [id number] : 2000 Acct:[id number] Age/Sex: 24 / F ADM Date: 09/21/24 Loc: ER Room: Type: [facility] ER Attending Dr: Copies to: Derek Phipps PA-C Ordering Provider: Derek Phipps PA-C Date of Service: 09/21/24 XR/XR shoulder RT min 2V*: Extremity Injury, Upper RIGHT SHOULDER - - 3 views CLINICAL HISTORY: Right shoulder pain, posterior pain in scapula COMPARISON: None FINDINGS: No acute fracture or dislocation. No significant degenerative change. Right lung apex is clear. XR/XR shoulder RT min 2V* IMPRESSION: No acute bony process. Impression dictated by: Micky Hutton M.D.09/21/2024 9:16 PM Dictation Location: [facility]22 Transcribed By: [facility] 09/21/242115 Dictated By: Micky Hutton MD 09/21/242114 Signed By: 09/21/242115 Normal [facility] Laboratory - Chemistry and C hemistry - challengeon 08-26-2024 HCG.intact+Beta subunit Qn <1 mIU/mL [facility] Comment on above: Female (Non- ) 0 - 5 (Postmenopausal) 0 - 8 Female () Weeks of Gestation 3 6 - 71 4 10 - 750 5 065 - 7031 6 359 - 14387 7 [id number] 8 [phone] 9 [phone] 10 49979 -[phone] 12 60205 -[phone] 14 98738 - 86017 15 56387 - 63224 16 4961 - 42107 17 4668 - 51432 18 [phone] - [phone] Gavin ECLIA methodology No Panel Informationon 08-26 Performed at: [address] [place] [id number] Medical Associate: Mendel Rubin PhD, Phone: [phone] [facility] HCG ( test) Ql (U)o n 08-25-2024 Interpretation and review of laboratory results Normal [facility] Preg Test, Ur Negative Negative [facility] Alanine aminotransferase [En zymatic activity/volume] in Serum or PlasmaOrdered By: Paramjit Yanes on 06-29-2024 ALT [Catalytic activity/Vol] 6 U/L [facility] [place] Comment on above: Performed By: #### E CAPO, CBC, CMP ####[facility] [id number] [address] ALT [Catalytic activity/Vol] Alanine aminotransferase [Enzymatic activity/volume] in Serum or Plasma Low [facility] Albumin [Mass/volume] in Ser um or Plasma by Bromocresol green (BCG) dye binding methoOrdered By: Paramjit Farzana on 06-29-2024 Albumin BCG dye [Mass/Vol] 5.1 g/dL 3.5-5.7 [facility] Albumin BCG dye [Mass/Vol] Albumin [Mass/volume] in Serum or Plasma by Bromocresol green (BCG) dye binding metho 3.5-5.7 [facility] Alkaline phosphatase [Enzyma tic activity/volume] in Serum or PlasmaOrdered By: Paramjit Farzana on 06-29-2024 ALP [Catalytic activity/Vol] 43 U/L Normal 34-104 [facility] Comment on above: Performed By: #### E CAPO, CBC, CMP ####[facility] [id number] ALP [Catalytic activity/Vol] Alkaline phosphatase [Enzymatic activity/volume] in Serum or Plasma 34-104 [facility] Amphetamine Screen Ql (U)Ord ered By: Paramjit Yanes on 06-29-2024 Amphetamines Ql (U) Amphetamines screen Negativ e [facility] Amphetamines Ql (U) Negative Negative [facility] Appearance of UrineOrdered B y: Paramjit Farzana on 06-29-2024 Appearance (U) Urine appearance Clear [facility] Aspartate aminotransferase [ Enzymatic activity/volume] in Serum or PlasmaOrdered By: Paramjit Yanes on 06-29-2024 AST [Catalytic activity/Vol] 15 U/L Normal [facility] Comment on above: Performed By: #### E CAPO, CBC, CMP ####[address] AST [Catalytic activity/Vol] Aspartate aminotransferase [Enzymatic activity/volume] in Serum or Plasma [facility] Automated basophil %Ordered By: Paramjit Yanes on 06-29-2024 Basophils/100 WBC (Bld) 0.6 % Normal . [facility] Comment on above: Performed By: #### E CAPO, CBC, CMP ####[facility] [id number] [address] Automated basophil countOrde red By: Paramjit Yanes on 06-29-2024 Basophils (Bld) [#/Vol] 0.0 10*3/uL Normal 0.0-0.2 [facility] Comment on above: Result Comment: PERF ORMED BY: [facility] [address] [place] [address] PATHOLOGIST REPAIRING CALIBRATOR KIERSTEN BYNUM M.D. Performed By: #### E CAPO, CBC, CMP ####[address] Automated blood monocyte cou ntOrdered By: Paramjit Yanes on 06-29-2024 Monocytes (Bld) [#/Vol] 0.3 10*3/uL Normal 0.0-0.8 [facility] [place] Comment on above: Performed By: #### E CAPO, CBC, CMP ####[address] Automated eosinophil %Ordere d By: Paramjit Yanes on 06-29-2024 Eosinophils/100 WBC (Bld) 4.2 % Normal . [facility] Comment on above: Performed By: #### E CAPO, CBC, CMP ####[address] Automated eosinophil countOr dered By: Paramjit Yanes on 06-29-2024 Eosinophils (Bld) [#/Vol] 0.3 10*3/uL Normal 0.0-0.45 [facility] [place] Comment on above: Performed By: #### E CAPO, CBC, CMP ####[address] Automated monocyte %Ordered By: Paramjit Yanes on 06-29-2024 Monocytes/100 WBC (Bld) 4.8 % Normal . [facility] Comment on above: Performed By: #### E CAPO, CBC, CMP ####[address] Automated neutrophil %Ordere d By: Paramjit Yanes on 06-29-2024 Neutrophils/100 WBC (Bld) 68.1 % Normal . [facility] [place] [facility] Comment on above: Performed By: #### E CAPO, CBC, CMP ####[facility] [place] [address] [facility] Bacteria [Presence] in Urine by AutomatedOrdered By: Paramjit Yanes on 06-29-2024 Bacteria Auto Ql (U) Rare [HPF] None Seen [facility] Bacteria Auto Ql (U) Bacteria [Presence] in Urine by Automated None Seen [facility] Barbiturates [Presence] in U rine by Screen methodOrdered By: Paramjit Yanes on 06-29-2024 Barbiturates Screen Ql (U) Negative Negative [facility] Barbiturates Screen Ql (U) Barbiturates [Presence] in Urine by Screen method Negative [facility] Basophils Auto (Bld) [#/Vol] Ordered By: Paramjit Yanes on 06-29-2024 Basophils (Bld) [#/Vol] Automated basophil count 0.0-0.2 [facility] Basophils/100 WBC Auto (Bld) Ordered By: Paramjit Yanes on 06-29-2024 Basophils/100 WBC (Bld) Automated basophil % . [facility] Benzodiazepines Screen Ql (U )Ordered By: Paramjit Yanes on 06-29-2024 Benzodiazepines Ql (U) Negative Negative [facility] Benzodiazepines Ql (U) Benzodiazepines [ Presence] in Urine by Screen method Negative [facility] Benzoylecgonine [Presence] i n Urine by Screen methodOrdered By: Paramjit Yanes on 06-29-2024 Benzoylecgonine Screen Ql (U) Negative Negative [facility] Benzoylecgonine Screen Ql (U) Benzoylecgonine [Presence] in Urine by Screen method Negative [facility] Bilirubin Test strip Ql (U)O rdered By: Paramjit Yanes on 06-29-2024 Bilirubin Ql (U) Negative Negative [facility] Bilirubin Ql (U) Bilirubin.total [Pre sence] in Urine by Test strip Negative [facility] Bilirubin.total [Mass/volume ] in Serum or PlasmaOrdered By: Paramjit Yanes on 06-29-2024 Bilirubin [Mass/Vol] 0.8 mg/dL Normal 0.3-1.0 [facility] Comment on above: Performed By: #### E CAPO CBC, CMP ####[place] [id number] [address] Bilirubin [Mass/Vol] Bilirubin.total [Mass/volume] in Serum or Plasma 0.3-1.0 [facility] Calcium [Mass/volume] in Ser um or PlasmaOrdered By: Paramjit Yanes on 06-29-2024 Calcium [Mass/Vol] 10.2 mg/dL Normal 8.6-10.3 [facility] Comment on above: Performed By: #### E CAPO CBC, CMP ####[place] [address] [place] [id number] [facility] Calcium [Mass/Vol] Calcium [Mass/volume ] in Serum or Plasma 8.6-10.3 [facility] Cannabinoids [Presence] in U rine by Screen methodOrdered By: Paramjit Yanes on 06-29-2024 Cannabinoids Screen Ql (U) Positive High Negative [facility] Comment on above: These are unconfirme d results and should not be used for legal purposes. Drug Cut-Off Concentration: AMPH 1000 ng/mL VENKATA 200 ng/mL BREANNA 200 ng/mL COCM 300 ng/mL OP 300 ng/mL PCP 25 ng/mL THC 20 ng/mL Cannabinoids Screen Ql (U) Cannabinoids [Presence] in Urine by Screen method High Negative [facility] Comment on above: These are unconfirme d results and should not be used for legal purposes. Drug Cut-Off Concentration: AMPH 1000 ng/mL VENKATA 200 ng/mL BREANNA 200 ng/mL COCM 300 ng/mL OP 300 ng/mL PCP 25 ng/mL THC 20 ng/mL Carbon dioxide, total [Moles /volume] in Serum or PlasmaOrdered By: Paramjit Yanes on 06-29-2024 CO2 [Moles/Vol] 28.6 mmol/L Normal 21.0-31.0 [facility] Comment on above: Performed By: #### E CAPO, CBC, CMP ####[facility] [id number] [place] [id number] [place] CO2 [Moles/Vol] Carbon dioxide, tota l [Moles/volume] in Serum or Plasma 21.0-31.0 [facility] Chloride [Moles/volume] in S isabel or PlasmaOrdered By: Paramjit Yanes on 06-29-2024 Chloride [Moles/Vol] 105 mmol/L Normal 98-107 [facility] Comment on above: Performed By: #### E CAPO, CBC, CMP ####[place] [id number] [address] Chloride [Moles/Vol] Chloride [Moles/vol ume] in Serum or Plasma 98-107 [facility] Color Auto (U)Ordered By: Bijan Yanes on 06-29-2024 Color (U) Color of Urine by Auto Yellow Fi [facility] Color of Urine by AutoOrdere d By: Paramjit Yanes on 06-29-2024 Color (U) Yellow Normal Yellow [facility] Comment on above: Order Comment: Name Collection Type:: Clean-Voided Midstream Performed By: #### U HCG, URDS, ADDONUAPLUS #### [facility] [address] Complete Blood Count Auto Di ffon 06-29-2024 Mean Corpuscular HGB Conc 34.6 g/dL Normal 32.0-35.0 [facility] Comment on above: Performed By: #### E CAPO, CBC, CMP ####[place] [id number] [address] Monocytes/100 WBC (Bld) 17.44 % Normal 0.00-20.00 [facility] Comment on above: Performed By: #### E CAPO, CBC, CMP ####[address] NRBC% 0.0 /100{WBC} Normal 0-0.5 [facility] Comment on above: Performed By: #### E CAPO, CBC, CMP ####[place] [id number] [address] Comprehensive Metabolic Pane haseeb 06-29-2024 Albumin [Mass/Vol] 5.1 g/dL Normal 3.5-5.7 [facility] Comment on above: Performed By: #### E CAPO, CBC, CMP ####[place] [address] [address] Creatinine Clr Calc Pharmacy 91.90 Normal [facility] Comment on above: Result Comment: PERF ORMED BY: [place] [address] PATHOLOGIST REPAIRING CALIBRATOR KIERSTEN BYNUM M.D. Performed By: #### E CAPO, CBC, CMP ####[address] GFR/1.73 sq M.predicted MDRD (S/P/Bld) [Vol rate/Area] mL/min/{1.73_m2} Normal [facility] Comment on above: Performed By: #### E CAPO, CBC, CMP ####[address] Creatinine [Mass/volume] in Serum or PlasmaOrdered By: Paramjit Yanes on 06-29-2024 Creatinine [Mass/Vol] 0.62 mg/dL Normal 0.60-1.20 [facility] Comment on above: Performed By: #### E CAPO, CBC, CMP ####[address] Creatinine [Mass/Vol] Creatinine [Mass/v olume] in Serum or Plasma 0.60-1.20 [facility] Dipstick and Microscopicon 1 Bacteria,Urine Rare Normal None Seen [facility] Comment on above: Order Comment: Name Collection Type:: Clean-Voided Midstream Performed By: #### U HCG, URDS, ADDONUAPLUS #### [address] Bilirubin,Urine Negative Normal Negative [facility] Comment on above: Order Comment: Name Collection Type:: Clean-Voided Midstream Performed By: #### U HCG, URDS, ADDONUAPLUS #### [address] Glucose Ql (U) Normal Normal Normal [facility] Comment on above: Order Comment: Name Collection Type:: Clean-Voided Midstream Performed By: #### U HCG, URDS, ADDONUAPLUS #### [address] Hyaline Casts,Urine None Normal 0-8 [facility] Comment on above: Order Comment: Name Collection Type:: Clean-Voided Midstream Performed By: #### U HCG, URDS, ADDONUAPLUS #### [address] Mucus,Urine 4+ Critically abnormal [facility] Comment on above: Order Comment: Name Collection Type:: Clean-Voided Midstream Performed By: #### U HCG, URDS, ADDONUAPLUS #### [address] Nitrite,Urine Negative Normal Negative [facility] Comment on above: Order Comment: Name Collection Type:: Clean-Voided Midstream Performed By: #### U HCG, URDS, ADDONUAPLUS #### [address] Occult Blood,Urine Negative Normal Negative [facility] Comment on above: Order Comment: Name Collection Type:: Clean-Voided Midstream Performed By: #### U HCG, URDS, ADDONUAPLUS #### [address] RBC,Urine 1-2 Normal 0-4 [facility] Comment on above: Order Comment: Name Collection Type:: Clean-Voided Midstream Performed By: #### U HCG, URDS, ADDONUAPLUS #### [address] Specificy [place],Urine 1.026 Normal 1.00 1-1.03 0 [facility] Comment on above: Order Comment: Name Collection Type:: Clean-Voided Midstream Performed By: #### U HCG, URDS, ADDONUAPLUS #### [address] Squamous Epithelial Cell,Urine 1-2 Normal 0-2 [facility] Comment on above: Order Comment: Name Collection Type:: Clean-Voided Midstream Performed By: #### U HCG, URDS, ADDONUAPLUS #### [address] Urobilinogen,Urine Normal Normal Normal [facility] Comment on above: Order Comment: Name Collection Type:: Clean-Voided Midstream Performed By: #### U HCG, URDS, ADDONUAPLUS #### [address] WBC,Urine 1-2 Normal 0-4 [facility] Comment on above: Order Comment: Name Collection Type:: Clean-Voided Midstream Performed By: #### U HCG, URDS, ADDONUAPLUS #### [place] [address] [place] Drug Screen,Urineon 06-29-20 24 Amphetamine Screen,Urine Negative Normal Negative [facility] Comment on above: Performed By: #### U HCG, URDS, ADDONUAPLUS #### [address] Barbiturate Screen,Urine Negative Normal Negative [facility] Comment on above: Performed By: #### U HCG, URDS, ADDONUAPLUS #### [place] [address] [place] Benzodiazepines Screen,Urine Negative Normal Negative [facility] Comment on above: Performed By: #### U HCG, URDS, ADDONUAPLUS #### [place] [address] [place] Cannabinoid Screen,Urine Positive High Negative [facility] Comment on above: Result Comment: Thes e are unconfirmed results and should not be used for legal purposes. Drug Cut-Off Concentration: AMPH 1000 ng/mL VENKATA 200 ng/mL BREANNA 200 ng/mL COCM 300 ng/mL OP 300 ng/mL PCP 25 ng/mL THC 20 ng/mL PERFORMED BY: [place] [address] PATHOLOGIST REPAIRING CALIBRATOR KIERSTEN BYNUM M.D. Performed By: #### U HCG, URDS, ADDONUAPLUS #### [facility] [address] Cocaine Screen,Urine Negative Normal Negative [facility] Comment on above: Performed By: #### U HCG, URDS, ADDONUAPLUS #### [facility] [address] Opiate Screen,Urine Negative Normal Negative [facility] Comment on above: Performed By: #### U HCG, URDS, ADDONUAPLUS #### [facility] [address] Phencyclidine Screen,Urine Negative Normal Negative [facility] Comment on above: Performed By: #### U HCG, URDS, ADDONUAPLUS #### [facility] [address] Eosinophils Auto (Bld) [#/Vo l]Ordered By: Paramjit Yanes on 06-29-2024 Eosinophils (Bld) [#/Vol] Automated eosinophil count 0.0-0.45 [facility] Eosinophils/100 WBC Auto (Bl d)Ordered By: Paramjit Yanes on 06-29-2024 Eosinophils/100 WBC (Bld) Automated eosinophil % . [facility] Epithelial cells.squamous [# /area] in Urine sediment by Automated countOrdered By: Paramjit Yanes on 06-29-2024 Epithelial cells.squamous Auto (Urine sed) [#/Area] 1-2 [HPF] 0-2 [facility] Epithelial cells.squamous Auto (Urine sed) [#/Area] Epithelial cells.squamous [#/area] in Urine sediment by Automated count 0-2 [facility] Erythrocyte distribution wid th Auto (RBC) [Ratio]Ordered By: Paramjit Yanes on 06-29-2024 Erythrocyte distribution width (RBC) [Ratio] Erythrocyte distribution width [Ratio] by Automated count 11.9-15.3 [facility] Erythrocyte distribution wid th [Ratio] by Automated countOrdered By: Paramjit Yanes on 06-29-2024 Erythrocyte distribution width (RBC) [Ratio] 13.0 % Normal 11.9-15.3 [facility] Comment on above: Performed By: #### E CAPO, CBC, CMP ####[facility] [id number] [place] [id number] [facility] Erythrocytes [#/area] in Uri ne sediment by Automated countOrdered By: Paramjit Yanes on 06-29-2024 RBC Auto (Urine sed) [#/Area] 1-2 [HPF] 0-4 [facility] RBC Auto (Urine sed) [#/Area] Erythrocytes [#/area] in Urine sediment by Automated count 0-4 [facility] Erythrocytes [#/volume] in B lood by Automated countOrdered By: Paramjit Yanes on 06-29-2024 RBC (Bld) [#/Vol] 4.85 10*6/uL Normal 3.60-5.00 [facility] Comment on above: Performed By: #### E CAPO, CBC, CMP ####[facility] [id number] [place] [address] Ethanol [Mass/volume] in Ser um or PlasmaOrdered By: Paramjit Yanes on 06-29-2024 Ethanol [Mass/Vol] mg/dL Normal [facility] Comment on above: Performed By: #### E CAPO, CBC, CMP ####[facility] Pks[address] [place] [id number] [facility] Ethanol [Mass/Vol] TNP [facility] Comment on above: Test not performed Ethanol [Mass/Vol] Ethanol [Mass/volume ] in Serum or Plasma [facility] Comment on above: Test not performed Ethyl Alcohol Profileon 06-10 Percent Ethanol Not performed Normal [facility] Comment on above: Result Comment: PERF ORMED BY: [facility] [address] [place] [id number] PATHOLOGIST REPAIRING CALIBRATOR KIERSTEN BYNUM M.D. Performed By: #### E CAPO, CBC, CMP ####[facility] [id number] [place] [id number] [facility] Globulin Calc (S) [Mass/Vol] Ordered By: Paramjit Yanes on 06-29-2024 Globulin (S) [Mass/Vol] Serum globulin m easurement by calculation (mass/volume) [facility] Glucose [Mass/volume] in Ser um or PlasmaOrdered By: Paramjit Yanes on 06-29-2024 Glucose [Mass/Vol] 86 mg/dL Normal 70-100 [facility] Comment on above: ADA recommended refe rence rangeRandom Glucose Reference Range is dependent on time and content of last meal. Glucose of more than 200 mg/dL in a nonstressed, ambulatory subject supports the diagnosis of Diabetes Mellitus. Result Comment: [place] om Glucose Reference Range is dependent on time and content of last meal. Glucose of more than 200 mg/dL in a nonstressed, ambulatory subject supports the diagnosis of Diabetes Mellitus. ADA recommended reference range Performed By: #### E CAPO, CBC, CMP ####[facility] [id number] [place] [address] [facility] Glucose [Mass/Vol] Glucose [Mass/volume ] in Serum or Plasma 70-100 [facility] [place] Comment on above: ADA recommended refe rence rangeRandom Glucose Reference Range is dependent on time and content of last meal. Glucose of more than 200 mg/dL in a nonstressed, ambulatory subject supports the diagnosis of Diabetes Mellitus. Glucose [Mass/volume] in Uri ne by Test stripOrdered By: Paramjit Yanes on 06-29-2024 Glucose Test strip (U) [Mass/Vol] Normal mg/dL Normal [facility] [place] [facility] Glucose Test strip (U) [Mass/Vol] Glucose [Mass/volume] in Urine by Test strip Normal [facility] [place] HCG ( test) IA.rapi d Ql (U)Ordered By: Paramjit Yanes on 06-29-2024 HCG ( test) Ql (U) Negative [facility] [place] [facility] HCG ( test) Ql (U) Urine human chorionic gonadotropin (hCG) detection by immunoassay [facility] HCG,Urineon 06-29-2024 Beta HCG ( test) Ql (U) Negative Normal [facility] Comment on above: Order Comment: Name Collection Type:: Clean-Voided Midstream Result Comment: PERF ORMED BY: [facility] [address] [place] [address] PATHOLOGIST REPAIRING CALIBRATOR KIERSTEN BYNUM M.D. Performed By: #### U HCG, URDS, ADDONUAPLUS #### [facility] [address] Hematocrit Auto (Bld) [Volum e fraction]Ordered By: Paramjit Yanes on 06-29-2024 Hematocrit (Bld) [Volume fraction] Hematocrit [Volume Fraction] of Blood by Automated count 34.0-46.4 [facility] [place] [facility] Hematocrit [Volume Fraction] of Blood by Automated countOrdered By: Paramjit Yanes on 06-29-2024 Hematocrit (Bld) [Volume fraction] 42.2 % Normal 34.0-46.4 [facility] [place] [facility] Comment on above: Performed By: #### E CAPO, CBC, CMP ####[facility] [id number] Hemoglobin Test strip Ql (U) Ordered By: Paramjit Yanes on 06-29-2024 Hemoglobin Ql (U) Negative Negative [facility] Hemoglobin Ql (U) Hemoglobin [Presence ] in Urine by Test strip Negative [facility] [place] [facility] Hemoglobin [Mass/volume] in BloodOrdered By: Paramjit Yanes on 06-29-2024 Hemoglobin (Bld) [Mass/Vol] 14.6 g/dL Normal 11.8-15.4 [facility] [place] [facility] Comment on above: Performed By: #### E CAPO, CBC, CMP ####[facility] [id number] [address] Hemoglobin (Bld) [Mass/Vol] Hemoglobin [Mass/volume] in Blood 11.8-15.4 [facility] [place] [facility] Hyaline casts [#/area] in Ur ine sediment by Automated countOrdered By: Paramjit Yanes on 06-29-2024 Hyaline casts Auto (Urine sed) [#/Area] None [LPF] 0-8 [facility] [place] [facility] Hyaline casts Auto (Urine sed) [#/Area] Hyaline casts [#/area] in Urine sediment by Automated count 0-8 [facility] [place] [facility] Ketones Test strip Ql (U)Ord ered By: Paramjit Yanes on 06-29-2024 Ketones Ql (U) Ketones [Presence] i n Urine by Test strip Negative [facility] [place] [facility] Ketones [Presence] in Urine by Test stripOrdered By: Paramjit Yanes on 06-29-2024 Ketones Ql (U) Negative Normal Negative [facility] [place] [facility] Comment on above: Order Comment: Name Collection Type:: Clean-Voided Midstream Performed By: #### U HCG, URDS, ADDONUAPLUS #### [facility] [address] Leukocyte esterase [Presence ] in Urine by Test stripOrdered By: Paramjit Yanes on 06-29-2024 Leukocyte esterase Test strip Ql (U) Negative Normal Negative [facility] Comment on above: Order Comment: Name Collection Type:: Clean-Voided Midstream Performed By: #### U HCG, URDS, ADDONUAPLUS #### [facility] [address] Leukocyte esterase Test strip Ql (U) Leukocyte esterase [Presence] in Urine by Test strip Negative [facility] Leukocytes [#/area] in Urine sediment by Automated countOrdered By: Paramjit Yanes on 06-29-2024 WBC Auto (Urine sed) [#/Area] 1-2 [HPF] 0-4 [facility] WBC Auto (Urine sed) [#/Area] Leukocytes [#/area] in Urine sediment by Automated count 0-4 [facility] Leukocytes [#/volume] correc michael for nucleated erythrocytes in Blood by Automated counOrdered By: Paramjit Yanes on 06-29-2024 WBC corrected for nucl RBC Auto (Bld) [#/Vol] 7.3 10*3/uL 3.8-11.6 [facility] WBC corrected for nucl RBC Auto (Bld) [#/Vol] Leukocytes [#/volume] corrected for nucleated erythrocytes in Blood by Automated coun 3.8-11.6 [facility] Leukocytes [#/volume] in Blo od by Automated countOrdered By: Paramjit Yanes on 06-29-2024 WBC (Bld) [#/Vol] 7.3 10*3/uL Normal 3.8-11.6 [facility] Comment on above: Performed By: #### E CAPO, CBC, CMP ####[facility] [address] Lymphocytes Auto (Bld) [#/Vo l]Ordered By: Paramjit Yanes on 06-29-2024 Lymphocytes (Bld) [#/Vol] Lymphocytes [#/volume] in Blood by Automated count 1.00-4.8 [facility] Lymphocytes [#/volume] in Bl ood by Automated countOrdered By: Paramjit Yanes on 06-29-2024 Lymphocytes (Bld) [#/Vol] 1.6 10*3/uL Normal 1.00-4.8 [facility] Comment on above: Performed By: #### E CAPO, CBC, CMP ####[address] Lymphocytes/100 WBC Auto (Bl d)Ordered By: Paramjit Yanes on 06-29-2024 Lymphocytes/100 WBC (Bld) Lymphocytes/100 leukocytes in Blood by Automated count . [facility] Lymphocytes/100 leukocytes i n Blood by Automated countOrdered By: Paramjit Yanes on 06-29-2024 Lymphocytes/100 WBC (Bld) 22.3 % Normal . [facility] Comment on above: Performed By: #### E CAPO, CBC, CMP ####[address] MCH Auto (RBC) [Entitic mass ]Ordered By: Paramjit Yanes on 06-29-2024 MCH (RBC) [Entitic mass] MCH [Entitic mass] by Automated count 24.7-34.3 [facility] MCH [Entitic mass] by Automa michael countOrdered By: Paramjit Yanes on 06-29-2024 MCH (RBC) [Entitic mass] 30.1 pg Normal 24.7-34.3 [facility] Comment on above: Performed By: #### E CAPO, CBC, CMP ####[address] MCHC Auto (RBC) [Mass/Vol]Or dered By: Paramjit Yanes on 06-29-2024 MCHC (RBC) [Mass/Vol] 34.6 g/dL 32.0-35.0 [facility] MCHC (RBC) [Mass/Vol] MCHC [Mass/volume] by Automated count 32.0-35.0 [facility] MCV Auto (RBC) [Entitic vol] Ordered By: Paramjit Yanes on 06-29-2024 MCV (RBC) [Entitic vol] MCV [Entitic vol ume] by Automated count 80-100 [facility] MCV [Entitic volume] by Auto mated countOrdered By: Paramjit Yanes on 06-29-2024 MCV (RBC) [Entitic vol] 87.2 fL Normal 80-100 [facility] Comment on above: Performed By: #### E CAPO, CBC, CMP ####[facility] [id number] [place] [address] [facility] Monocyte distribution width [Entitic volume] in Blood by AutomatedOrdered By: Paramjit Yanes on 06-29-2024 Monocyte distribution width Auto (Bld) [Entitic vol] 17.44 % 0.00-20.00 [facility] Monocyte distribution width Auto (Bld) [Entitic vol] Monocyte distribution width [Entitic volume] in Blood by Automated 0.00-20.00 [facility] Monocytes Auto (Bld) [#/Vol] Ordered By: Paramjit Yanes on 06-29-2024 Monocytes (Bld) [#/Vol] Automated blood monocyte count 0.0-0.8 [facility] Monocytes/100 WBC Auto (Bld) Ordered By: Paramjit Yanes on 06-29-2024 Monocytes/100 WBC (Bld) Automated monocyte % . [facility] Mucus [Presence] in Urine by AutomatedOrdered By: Paramjit Yanes on 06-29-2024 Mucus Auto Ql (U) 4+ [LPF] Abnormal [facility] Mucus Auto Ql (U) Mucus [Presence] in Urine by Automated Abnormal [facility] Neutrophils Auto (Bld) [#/Vo l]Ordered By: Paramjit Yanes on 06-29-2024 Neutrophils (Bld) [#/Vol] Neutrophils [#/volume] in Blood by Automated count 1.8-7.7 [facility] Neutrophils [#/volume] in Bl ood by Automated countOrdered By: Paramjit Yanes on 06-29-2024 Neutrophils (Bld) [#/Vol] 5.0 10*3/uL Normal 1.8-7.7 [facility] Comment on above: Performed By: #### E CAPO, CBC, CMP ####[facility] [id number] [place] [id number] [facility] Neutrophils/100 WBC Auto (Bl d)Ordered By: Paramjit Yanes on 06-29-2024 Neutrophils/100 WBC (Bld) Automated neutrophil % . [facility] Nitrite Test strip Ql (U)Ord ered By: Paramjit Yanes on 06-29-2024 Nitrite Ql (U) Negative Negative [facility] Nitrite Ql (U) Nitrite [Presence] i n Urine by Test strip Negative [facility] No Panel InformationOrdered By: Paramjit Yanes on 06-29-2024 Estimated GFR (CKD-EPI) > 60.0 mL/Min [facility] Creatinine Clearance (Chem 91.90 [facility] Nucleated erythrocytes [Pres ence] in Blood by Automated countOrdered By: Paramjit Yanes on 06-29-2024 Nucleated RBC Auto Ql (Bld) 0.0 /100{WBC} 0-0.5 [facility] Nucleated RBC Auto Ql (Bld) Nucleated erythrocytes [Presence] in Blood by Automated count 0-0.5 [facility] Opiates [Presence] in Urine by Screen methodOrdered By: Paramjit Yanes on 06-29-2024 Opiates Screen Ql (U) Negative Negative [facility] Opiates Screen Ql (U) Opiates [Presence] in Urine by Screen method Negative [facility] Phencyclidine Screen Ql (U)O rdered By: Paramjit Yanes on 06-29-2024 Phencyclidine Ql (U) Negative Negative [facility] Phencyclidine Ql (U) Phencyclidine [Pres ence] in Urine by Screen method Negative [facility] Platelet mean volume Auto (B ld) [Entitic vol]Ordered By: Paramjit Yanes on 06-29-2024 Platelet mean volume (Bld) [Entitic vol] Platelet mean volume [Entitic volume] in Blood by Automated count 6.3-10.7 [facility] Platelet mean volume [Entiti c volume] in Blood by Automated countOrdered By: Paramjit Yanes on 06-29-2024 Platelet mean volume (Bld) [Entitic vol] 7.6 fL Normal 6.3-10.7 [facility] Comment on above: Performed By: #### E CAPO, CBC, CMP ####[facility] [id number] [place] [address] [facility] Platelets Auto (Bld) [#/Vol] Ordered By: Paramjit Yanes on 06-29-2024 Platelets (Bld) [#/Vol] Platelets [#/vol ume] in Blood by Automated count 150-450 [facility] Platelets [#/volume] in Bloo d by Automated countOrdered By: Paramjit Yanes on 06-29-2024 Platelets (Bld) [#/Vol] 278 10*3/uL Normal 150-450 [facility] Comment on above: Performed By: #### E CAPO CBC, CMP ####[place] [id number] [facility] Potassium [Moles/volume] in Serum or PlasmaOrdered By: Paramjit Yanes on 06-29-2024 Potassium [Moles/Vol] 4.1 mmol/L Normal 3.5-5.1 [facility] Comment on above: Performed By: #### E CAPO, CBC, CMP ####[facility] [place], [place] [id number] [facility] Potassium [Moles/Vol] Potassium [Moles/v olume] in Serum or Plasma 3.5-5.1 [facility] Protein Test strip (U) [Mass /Vol]Ordered By: Paramjit Yanes on 06-29-2024 Protein (U) [Mass/Vol] Protein [Mass/vol ume] in Urine by Test strip High Negative [facility] Protein [Mass/volume] in Ser um or PlasmaOrdered By: Paramjit Yanes on 06-29-2024 Protein [Mass/Vol] 8.1 g/dL Normal 6.4-8.9 [facility] Comment on above: Performed By: #### E CAPO, CBC, CMP ####[place] [id number] Protein [Mass/Vol] Protein [Mass/volume ] in Serum or Plasma 6.4-8.9 [facility] Protein [Mass/volume] in Uri ne by Test stripOrdered By: Paramjit Yanes on 06-29-2024 Protein (U) [Mass/Vol] 20 mg/dL High Negative [facility] Comment on above: Order Comment: Name Collection Type:: Clean-Voided Midstream Performed By: #### U HCG, URDS, ADDONUAPLUS #### [facility] [address] RBC Auto (Bld) [#/Vol]Ordere d By: Paramjit Yanes on 06-29-2024 RBC (Bld) [#/Vol] Erythrocytes [#/volu me] in Blood by Automated count 3.60-5.00 [facility] Serum globulin measurement b y calculation (mass/volume)Ordered By: Paramjit Yanes on 06-29-2024 Globulin (S) [Mass/Vol] 3.0 g/dL Normal F [facility] Comment on above: Performed By: #### E CAPO, CBC, CMP ####[address] Serum or plasma albumin/glob ulin mass ratioOrdered By: Paramjit Yanes on 06-29-2024 Albumin/Globulin [Mass ratio] 1.7 {ratio} Normal [facility] Comment on above: Performed By: #### E CAPO, CBC, CMP ####[address] Albumin/Globulin [Mass ratio] Serum or plasma albumin/globulin mass ratio [facility] Serum or plasma anion gap de terminationOrdered By: Paramjit Yanes on 06-29-2024 Anion gap [Moles/Vol] 8.5 mmol/L Normal 6.0-15.0 [facility] Comment on above: Performed By: #### E CAPO, CBC, CMP ####[address] Anion gap [Moles/Vol] Serum or plasma an ion gap determination 6.0-15.0 [facility] Sodium [Moles/volume] in Ser um or PlasmaOrdered By: Paramjit Yanes on 06-29-2024 Sodium [Moles/Vol] 138 mmol/L Normal 136-145 [facility] Comment on above: Performed By: #### E CAPO, CBC, CMP ####[facility] [id number] Sodium [Moles/Vol] Sodium [Moles/volume ] in Serum or Plasma 136-145 [facility] Specific gravity Test strip (U) [Rel density]Ordered By: Paramjit Yanes on 06-29-2024 Specific gravity (U) [Rel density] 1.026 1.001-1.03 0 [facility] Specific gravity (U) [Rel density] Specific gravity of Urine by Test strip 1.001-1.03 0 [facility] Urea nitrogen [Mass/volume] in Serum or PlasmaOrdered By: Paramjit Yanes on 06-29-2024 Urea nitrogen [Mass/Vol] 9 mg/dL Normal 04-02 [facility] Comment on above: Performed By: #### E CAPO, CBC, CMP ####[facility] [id number] Urea nitrogen [Mass/Vol] Urea nitrogen [Mass/volume] in Serum or Plasma 04-02 [facility] Urine appearanceOrdered By: Paramjit Yanes on 06-29-2024 Appearance (U) Clear Normal Clear [facility] Comment on above: Order Comment: Name Collection Type:: Clean-Voided Midstream Performed By: #### U HCG, URDS, ADDONUAPLUS #### [facility] [address] Urobilinogen Test strip (U) [Mass/Vol]Ordered By: Paramjit Yanes on 06-29-2024 Urobilinogen (U) [Mass/Vol] Normal mg/dL Normal [facility] Urobilinogen (U) [Mass/Vol] Urobilinogen [Mass/volume] in Urine by Test strip Normal [facility] WBC Auto (Bld) [#/Vol]Ordere d By: Paramjit Yanes on 06-29-2024 WBC (Bld) [#/Vol] Leukocytes [#/volume ] in Blood by Automated count 3.8-11.6 [facility] pH Test strip (U)Ordered By: Paramjit Yanes on 06-29-2024 pH (U) pH of Urine by Test strip 5.0-9.0 [facility] pH of Urine by Test stripOrd ered By: Paramjit Yanes on 06-29-2024 pH (U) 6.5 [pH] Normal 5.0-9.0 [facility] Comment on above: Order Comment: Name Collection Type:: Clean-Voided Midstream Performed By: #### U HCG, URDS, ADDONUAPLUS #### [facility] [address] Alanine aminotransferase [En zymatic activity/volume] in Serum or PlasmaOrdered By: Derek Phipps on 04-17-2024 ALT [Catalytic activity/Vol] 8 U/L Normal 7-52 [facility] Comment on above: Performed By: #### H EPATIC, LIPASE, CBC, BMP ####[facility] [id number] [place] [address] [place] Albumin [Mass/volume] in Ser um or Plasma by Bromocresol green (BCG) dye binding methoOrdered By: Derek Phipps on 04-17-2024 Albumin BCG dye [Mass/Vol] 4.7 g/dL 3.5-5.7 [facility] Alkaline phosphatase [Enzyma tic activity/volume] in Serum or PlasmaOrdered By: Derek Phipps on 04-17-2024 ALP [Catalytic activity/Vol] 40 U/L Normal 34-104 [facility] Comment on above: Performed By: #### H EPATIC, LIPASE, CBC, BMP ####[facility] [id number] [place] [address] [place] Amphetamine Screen Ql (U)Ord ered By: Derek Phipps on 04-17-2024 Amphetamines Ql (U) Negative Negative [facility] Aspartate aminotransferase [ Enzymatic activity/volume] in Serum or PlasmaOrdered By: Derek Phipps on 04-17-2024 AST [Catalytic activity/Vol] 15 U/L Normal 13-39 [facility] Comment on above: Performed By: #### H EPATIC, LIPASE, CBC, BMP ####[address] Automated basophil %Ordered By: Derek Phipps on 04-17-2024 Basophils/100 WBC (Bld) 0.3 % Normal . [facility] Comment on above: Performed By: #### H EPATIC, LIPASE, CBC, BMP ####[address] Automated basophil countOrde red By: Derek Phipps on 04-17-2024 Basophils (Bld) [#/Vol] 0.0 10*3/uL Normal 0.0-0.2 [facility] Comment on above: Result Comment: PERF ORMED BY: [facility] [address] [facility] [place] [address] PATHOLOGIST REPAIRING CALIBRATOR KIERSTEN BYNUM M.D. Performed By: #### H EPATIC, LIPASE, CBC, BMP ####[address] Automated blood monocyte cou ntOrdered By: Derek Phipps on 04-17-2024 Monocytes (Bld) [#/Vol] 0.3 10*3/uL Normal 0.0-0.8 [facility] Comment on above: Performed By: #### H EPATIC, LIPASE, CBC, BMP ####[address] Automated eosinophil %Ordere d By: Derek Phipps on 04-17-2024 Eosinophils/100 WBC (Bld) 1.8 % Normal . [facility] Comment on above: Performed By: #### H EPATIC, LIPASE, CBC, BMP ####[address] Automated eosinophil countOr dered By: Derek Phipps on 04-17-2024 Eosinophils (Bld) [#/Vol] 0.2 10*3/uL Normal 0.0-0.45 [facility] Comment on above: Performed By: #### H EPATIC, LIPASE, CBC, BMP ####[place] [id number] [address] Automated monocyte %Ordered By: Derek Phipps on 04-17-2024 Monocytes/100 WBC (Bld) 3.4 % Normal . [facility] Comment on above: Performed By: #### H EPATIC, LIPASE, CBC, BMP ####[address] Automated neutrophil %Ordere d By: Derek Phipps on 04-17-2024 Neutrophils/100 WBC (Bld) 83.6 % Normal . [facility] Comment on above: Performed By: #### H EPATIC, LIPASE, CBC, BMP ####[address] Bacteria [Presence] in Urine by AutomatedOrdered By: Derek Phipps on 04-17-2024 Bacteria Auto Ql (U) None seen [HPF] None Seen [facility] Barbiturates [Presence] in U rine by Screen methodOrdered By: Derek Phipps on 04-17-2024 Barbiturates Screen Ql (U) Negative Negative [facility] Basic Metabolic Panelon Creatinine Clr Calc Pharmacy 94.59 Normal [facility] Comment on above: Performed By: #### H EPATIC, LIPASE, CBC, BMP ####[address] GFR/1.73 sq M.predicted MDRD (S/P/Bld) [Vol rate/Area] mL/min/{1.73_m2} Normal [facility] Comment on above: Performed By: #### H EPATIC, LIPASE, CBC, BMP ####[address] Benzodiazepines Screen Ql (U )Ordered By: Derek Phipps on 04-17-2024 Benzodiazepines Ql (U) Negative Negative [facility] Benzoylecgonine [Presence] i n Urine by Screen methodOrdered By: Derek Phipps on 04-17-2024 Benzoylecgonine Screen Ql (U) Negative Negative [facility] Bilirubin Test strip Ql (U)O rdered By: Derek Phipps on 04-17-2024 Bilirubin Ql (U) Negative Negative [facility] Bilirubin.direct [Mass/volum e] in Serum or PlasmaOrdered By: Derek Phipps on 04-17-2024 Bilirubin.direct [Mass/Vol] 0.10 mg/dL 0.03-0.18 [facility] Bilirubin.total [Mass/volume ] in Serum or PlasmaOrdered By: Derek Phipps on 04-17-2024 Bilirubin [Mass/Vol] 0.6 mg/dL Normal 0.3-1.0 [facility] Comment on above: Performed By: #### H EPATIC, LIPASE, CBC, BMP ####[facility] [id number] [place] [id number] [facility] Calcium [Mass/volume] in Ser um or PlasmaOrdered By: Derek Phipps on 04-17-2024 Calcium [Mass/Vol] 9.5 mg/dL Normal 8.6-10.3 [facility] Comment on above: Performed By: #### H EPATIC, LIPASE, CBC, BMP ####[facility] [id number] [place] [address] [facility] Cannabinoids [Presence] in U rine by Screen methodOrdered By: Derek Phipps on 04-17-2024 Cannabinoids Screen Ql (U) Positive High Negative [facility] Comment on above: These are unconfirme d results and should not be used for legal purposes. Drug Cut-Off Concentration: AMPH 1000 ng/mL VENKATA 200 ng/mL BREANNA 200 ng/mL COCM 300 ng/mL OP 300 ng/mL PCP 25 ng/mL THC 20 ng/mL Carbon dioxide, total [Moles /volume] in Serum or PlasmaOrdered By: Derek Phipps on 04-17-2024 CO2 [Moles/Vol] 29.5 mmol/L Normal 21.0-31.0 [facility] Comment on above: Performed By: #### H EPATIC, LIPASE, CBC, BMP ####[facility] [id number] [place] [address] [place] Chloride [Moles/volume] in S isabel or PlasmaOrdered By: Derek Phipps on 04-17-2024 Chloride [Moles/Vol] 105 mmol/L Normal 98-107 [facility] Comment on above: Performed By: #### H EPATIC, LIPASE, CBC, BMP ####[address] Color of Urine by AutoOrdere d By: Derek Phipps on 04-17-2024 Color (U) Yellow Normal Yellow [facility] Comment on above: Order Comment: Name Collection Type:: Clean-Voided Midstream Performed By: #### U HCG, ADDONUAPLUS, URDS ####[address] Complete Blood Count Auto Di ffon 04-17-2024 Mean Corpuscular HGB Conc 33.9 g/dL Normal 32.0-35.0 [facility] Comment on above: Performed By: #### H EPATIC, LIPASE, CBC, BMP ####[address] Monocytes/100 WBC (Bld) 19.53 % Normal 0.00-20.00 [facility] Comment on above: Performed By: #### H EPATIC, LIPASE, CBC, BMP ####[address] NRBC% 0.0 /100{WBC} Normal 0-0.5 [facility] Comment on above: Performed By: #### H EPATIC, LIPASE, CBC, BMP ####[address] Creatinine [Mass/volume] in Serum or PlasmaOrdered By: Derek Phipps on 04-17-2024 Creatinine [Mass/Vol] 0.62 mg/dL Normal 0.60-1.20 [facility] Comment on above: Performed By: #### H EPATIC, LIPASE, CBC, BMP ####[address] Dipstick and Microscopicon 0 04-17-2024 Bacteria,Urine None Seen Normal None Seen [facility] Comment on above: Order Comment: Name Collection Type:: Clean-Voided Midstream Performed By: #### U HCG, ADDONUAPLUS, URDS ####[address] [address] [facility] Bilirubin,Urine Negative Normal Negative [facility] Comment on above: Order Comment: Name Collection Type:: Clean-Voided Midstream Performed By: #### U HCG, ADDONUAPLUS, URDS ####[address] [address] [facility] Glucose Ql (U) Normal Normal Normal [facility] Comment on above: Order Comment: Name Collection Type:: Clean-Voided Midstream Performed By: #### U HCG, ADDONUAPLUS, URDS ####[place] [id number] [facility] Hyaline Casts,Urine None Normal 0-8 [facility] Comment on above: Order Comment: Name Collection Type:: Clean-Voided Midstream Performed By: #### U HCG, ADDONUAPLUS, URDS ####[place] [id number] [facility] Mucus,Urine 4+ Critically abnormal [facility] Comment on above: Order Comment: Name Collection Type:: Clean-Voided Midstream Performed By: #### U HCG, ADDONUAPLUS, URDS ####[address] [address] [facility] Nitrite,Urine Negative Normal Negative [facility] Comment on above: Order Comment: Name Collection Type:: Clean-Voided Midstream Performed By: #### U HCG, ADDONUAPLUS, URDS ####[address] [address] [facility] Occult Blood,Urine Negative Normal Negative [facility] Comment on above: Order Comment: Name Collection Type:: Clean-Voided Midstream Performed By: #### U HCG, ADDONUAPLUS, URDS ####[address] [address] [facility] Protein,Urine Trace High Negative [facility] Comment on above: Order Comment: Name Collection Type:: Clean-Voided Midstream Performed By: #### U HCG, ADDONUAPLUS, URDS ####[place] [id number] [facility] RBC,Urine 1-2 Normal 0-4 [facility] Comment on above: Order Comment: Name Collection Type:: Clean-Voided Midstream Performed By: #### U HCG, ADDONUAPLUS, URDS ####[address] Specificy [place],Urine 1.020 Normal 1.00 1-1.03 0 [facility] Comment on above: Order Comment: Name Collection Type:: Clean-Voided Midstream Performed By: #### U HCG, ADDONUAPLUS, URDS ####[address] Squamous Epithelial Cell,Urine 3-4 High 0-2 [facility] Comment on above: Order Comment: Name Collection Type:: Clean-Voided Midstream Performed By: #### U HCG, ADDONUAPLUS, URDS ####[address] Urobilinogen,Urine Normal Normal Normal [facility] Comment on above: Order Comment: Name Collection Type:: Clean-Voided Midstream Performed By: #### U HCG, ADDONUAPLUS, URDS ####[place] [id number] [facility] WBC,Urine 1-2 Normal 0-4 [facility] Comment on above: Order Comment: Name Collection Type:: Clean-Voided Midstream Performed By: #### U HCG, ADDONUAPLUS, URDS ####[place] [id number] [facility] Drug Screen,Urineon 04-17-20 24 Amphetamine Screen,Urine Negative Normal Negative [facility] Comment on above: Performed By: #### U HCG, ADDONUAPLUS, URDS ####[place] [id number] [facility] Barbiturate Screen,Urine Negative Normal Negative [facility] Comment on above: Performed By: #### U HCG, ADDONUAPLUS, URDS ####[place] [id number] [place] [id number] [facility] Benzodiazepines Screen,Urine Negative Normal Negative [facility] Comment on above: Performed By: #### U HCG, ADDONUAPLUS, URDS ####[place] [id number] [place] [id number] [facility] Cannabinoid Screen,Urine Positive High Negative [facility] Comment on above: Result Comment: Thes e are unconfirmed results and should not be used for legal purposes. Drug Cut-Off Concentration: AMPH 1000 ng/mL VENKATA 200 ng/mL BREANNA 200 ng/mL COCM 300 ng/mL OP 300 ng/mL PCP 25 ng/mL THC 20 ng/mL PERFORMED BY: [place] [address] PATHOLOGIST REPAIRING CALIBRATOR KIERSTEN BYNUM M.D. Performed By: #### U HCG, ADDONUAPLUS, URDS ####[address] Cocaine Screen,Urine Negative Normal Negative [facility] [facility] Comment on above: Performed By: #### U HCG, ADDONUAPLUS, URDS ####[place] [id number] [facility] Opiate Screen,Urine Negative Normal Negative [facility] Comment on above: Performed By: #### U HCG, ADDONUAPLUS, URDS ####[place] [id number] [facility] Phencyclidine Screen,Urine Negative Normal Negative [facility] Comment on above: Performed By: #### U HCG, ADDONUAPLUS, URDS ####[place] [id number] [facility] ECG 12 lead ECGon 04-17-2024 ECG 12 lead ECG [facility] [address] [place] [address] [place] [address] Electrocardiograph Report Signed Patient: Dawn Cuellar MR#: [id number] : 2000 Acct:[id number] Age/Sex: 24 / F ADM Date: 04/17/24 Loc: ER Room: Type: DEP ER Attending Dr: Ordering Provider: Derek Phipps PA-C Date of Service: 04/17/2406/02/1302 ECG/ECG 12 lead ECG: Abdominal Pain Copies to: Test Reason : Blood Pressure : */* mmHG Vent. Rate : 60 BPM Atrial Rate : 60 BPM P-R Int : 130 ms QRS Dur : 80 ms QT Int : 408 ms P-R-T Axes : 70 89 86 degrees QTcB Int : 408 ms Normal sinus rhythm t wave inversion lead I and avl When compared with ECG of 13-Oct-2023 11:50, Vent. rate has decreased by 33 bpm Nonspecific T wave abnormality now evident in Anterior leads Confirmed by Adilia Jeronimo MD ([id number]) on 04/17/2024 6:03:08 PM Referred By: Electronically Signed By: Adilia Jeronimo MD Transcribed By: MUS Signed By Adilia Jeronimo MD 06/02 180 Normal [facility] Epithelial cells.squamous [# /area] in Urine sediment by Automated countOrdered By: Derek Phipps on 04-17-2024 Epithelial cells.squamous Auto (Urine sed) [#/Area] 3-4 [HPF] High 0-2 [facility] Erythrocyte distribution wid th [Ratio] by Automated countOrdered By: Derek Phipps on 04-17-2024 Erythrocyte distribution width (RBC) [Ratio] 13.0 % Normal 11.9-15.3 [facility] Comment on above: Performed By: #### H EPATIC, LIPASE, CBC, BMP ####[facility] [id number] [place] [id number] [facility] Erythrocytes [#/area] in Uri ne sediment by Automated countOrdered By: Derek Phipps on 04-17-2024 RBC Auto (Urine sed) [#/Area] 1-2 [HPF] 0-4 [facility] Erythrocytes [#/volume] in B lood by Automated countOrdered By: Derek Phipps on 04-17-2024 RBC (Bld) [#/Vol] 4.66 10*6/uL Normal 3.60-5.00 [facility] Comment on above: Performed By: #### H EPATIC, LIPASE, CBC, BMP ####[place] [id number] [facility] Glucose [Mass/volume] in Ser um or PlasmaOrdered By: Derek Phipps on 04-17-2024 Glucose [Mass/Vol] 95 mg/dL Normal 70-100 [facility] Comment on above: ADA recommended refe rence rangeRandom Glucose Reference Range is dependent on time and content of last meal. Glucose of more than 200 mg/dL in a nonstressed, ambulatory subject supports the diagnosis of Diabetes Mellitus. Result Comment: [place] om Glucose Reference Range is dependent on time and content of last meal. Glucose of more than 200 mg/dL in a nonstressed, ambulatory subject supports the diagnosis of Diabetes Mellitus. ADA recommended reference range Performed By: #### H EPATIC, LIPASE, CBC, BMP ####[place] [id number] [facility] Glucose [Mass/volume] in Uri ne by Test stripOrdered By: Derek Phipps on 04-17-2024 Glucose Test strip (U) [Mass/Vol] Normal mg/dL Normal [facility] HCG ( test) IA.rapi d Ql (U)Ordered By: Derek Phipps on 04-17-2024 HCG ( test) Ql (U) Negative [facility] HCG,Urineon 04-17-2024 Beta HCG ( test) Ql (U) Negative Normal [facility] Comment on above: Order Comment: Name Collection Type:: Clean-Voided Midstream Result Comment: PERF ORMED BY: [facility] [address] [place] [place] [id number] PATHOLOGIST REPAIRING CALIBRATOR KIERSTEN BYNUM M.D. Performed By: #### U HCG, ADDONUAPLUS, URDS ####[place] [id number] [facility] Hematocrit [Volume Fraction] of Blood by Automated countOrdered By: Derek Phipps on 04-17-2024 Hematocrit (Bld) [Volume fraction] 40.8 % Normal 34.0-46.4 [facility] Comment on above: Performed By: #### H EPATIC, LIPASE, CBC, BMP ####[place] [id number] [facility] Hemoglobin Test strip Ql (U) Ordered By: Derek Phipps on 04-17-2024 Hemoglobin Ql (U) Negative Negative [facility] Hemoglobin [Mass/volume] in BloodOrdered By: Derek Phipps on 04-17-2024 Hemoglobin (Bld) [Mass/Vol] 13.8 g/dL Normal 11.8-15.4 [facility] Comment on above: Performed By: #### H EPATIC, LIPASE, CBC, BMP ####[address] Hepatic Panelon 04-17-2024 Albumin [Mass/Vol] 4.7 g/dL Normal 3.5-5.7 [facility] Comment on above: Performed By: #### H EPATIC, LIPASE, CBC, BMP ####[address] Bilirubin,Indirect 0.5 mg/dL Normal [facility] Comment on above: Performed By: #### H EPATIC, LIPASE, CBC, BMP ####[address] Bilirubin.indirect [Mass/Vol] 0.10 mg/dL Normal 0.03-0.18 [facility] Comment on above: Performed By: #### H EPATIC, LIPASE, CBC, BMP ####[address] Hyaline casts [#/area] in Ur ine sediment by Automated countOrdered By: Derek Phipps on 04-17-2024 Hyaline casts Auto (Urine sed) [#/Area] None [LPF] 0-8 [facility] Ketones [Presence] in Urine by Test stripOrdered By: Derek Phipps on 04-17-2024 Ketones Ql (U) Negative Normal Negative [facility] Comment on above: Order Comment: Name Collection Type:: Clean-Voided Midstream Performed By: #### U HCG, ADDONUAPLUS, URDS ####[address] Leukocyte esterase [Presence ] in Urine by Test stripOrdered By: Derek Phipps on 04-17-2024 Leukocyte esterase Test strip Ql (U) Negative Normal Negative [facility] Comment on above: Order Comment: Name Collection Type:: Clean-Voided Midstream Performed By: #### U HCG, ADDONUAPLUS, URDS ####[place] [id number] Leukocytes [#/area] in Urine sediment by Automated countOrdered By: Derek Phipps on 04-17-2024 WBC Auto (Urine sed) [#/Area] 1-2 [HPF] 0-4 [facility] Leukocytes [#/volume] correc michael for nucleated erythrocytes in Blood by Automated counOrdered By: Derek Phipps on 04-17-2024 WBC corrected for nucl RBC Auto (Bld) [#/Vol] 8.7 10*3/uL 3.8-11.6 [facility] Leukocytes [#/volume] in Blo od by Automated countOrdered By: Derek Phipps on 04-17-2024 WBC (Bld) [#/Vol] 8.7 10*3/uL Normal 3.8-11.6 [facility] Comment on above: Performed By: #### H EPATIC, LIPASE, CBC, BMP ####[place] [id number] Lipase [Enzymatic activity/v olume] in Serum or PlasmaOrdered By: Derek Phipps on 04-17-2024 Lipase [Catalytic activity/Vol] 20.0 U/L Normal 11.0-82.0 [facility] Comment on above: Result Comment: PERF ORMED BY: [facility] [address] [place] [address] PATHOLOGIST REPAIRING CALIBRATOR KIERSTEN BYNUM M.D. Performed By: #### H EPATIC, LIPASE, CBC, BMP ####[place] [address] [place] [id number] [facility] Lymphocytes [#/volume] in Bl ood by Automated countOrdered By: Derek Phipps on 04-17-2024 Lymphocytes (Bld) [#/Vol] 0.9 10*3/uL Low 1.00-4.8 [facility] Comment on above: Performed By: #### H EPATIC, LIPASE, CBC, BMP ####[address] Lymphocytes/100 leukocytes i n Blood by Automated countOrdered By: Derek Phipps on 04-17-2024 Lymphocytes/100 WBC (Bld) 10.9 % Normal . [facility] Comment on above: Performed By: #### H EPATIC, LIPASE, CBC, BMP ####[address] MCH [Entitic mass] by Automa michael countOrdered By: Derek Phipps on 04-17-2024 MCH (RBC) [Entitic mass] 29.7 pg Normal 24.7-34.3 [facility] Comment on above: Performed By: #### H EPATIC, LIPASE, CBC, BMP ####[address] MCHC Auto (RBC) [Mass/Vol]Or dered By: Derek Phipps on 04-17-2024 MCHC (RBC) [Mass/Vol] 33.9 g/dL 32.0-35.0 [facility] MCV [Entitic volume] by Auto mated countOrdered By: Derek Phipps on 04-17-2024 MCV (RBC) [Entitic vol] 87.6 fL Normal 80-100 [facility] Comment on above: Performed By: #### H EPATIC, LIPASE, CBC, BMP ####[address] Monocyte distribution width [Entitic volume] in Blood by AutomatedOrdered By: Derek Phipps on 04-17-2024 Monocyte distribution width Auto (Bld) [Entitic vol] 19.53 % 0.00-20.00 [facility] Mucus [Presence] in Urine by AutomatedOrdered By: Derek Phipps on 04-17-2024 Mucus Auto Ql (U) 4+ [LPF] Abnormal [facility] Neutrophils [#/volume] in Bl ood by Automated countOrdered By: Derek Phipps on 04-17-2024 Neutrophils (Bld) [#/Vol] 7.3 10*3/uL Normal 1.8-7.7 [facility] Comment on above: Performed By: #### H EPATIC, LIPASE, CBC, BMP ####[facility] [id number] Nitrite Test strip Ql (U)Ord ered By: Derek Phipps on 04-17-2024 Nitrite Ql (U) Negative Negative [facility] No Panel InformationOrdered By: Derek Phipps on 04-17-2024 Estimated GFR (CKD-EPI) > 60.0 mL/Min [facility] Creatinine Clearance (Chem 94.59 [facility] Nucleated erythrocytes [Pres ence] in Blood by Automated countOrdered By: Derek Phipps on 04-17-2024 Nucleated RBC Auto Ql (Bld) 0.0 /100{WBC} 0-0.5 [facility] Opiates [Presence] in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 Ql (U)Ord ered By: Ashley Roberson on 09-28-2023 Nitrite Ql (U) Negative Negative [facility] No Panel InformationOrdered By: Ashley Roberson on 09-28-2023 Bedside Glucose Comment See comment [facility] Comment on above: Glu2: WILL NOTIFY DR /RN Estimated GFR (CKD-EPI) > 60.0 mL/Min [facility] Creatinine Clearance (Chem 92.34 [facility] Nucleated erythrocytes [Pres ence] in Blood by Automated countOrdered By: Ashley Roberson on 09-28-2023 Nucleated RBC Auto Ql (Bld) 0.1 /100{WBC} 0-0.5 [facility] Platelet mean volume Auto (B ld) [Entitic vol]Ordered By: Ashley Roberson on 09-28-2023 Platelet mean volume (Bld) [Entitic vol] 8.0 fL 6.3-10.7 [facility] Platelets Auto (Bld) [#/Vol] Ordered By: Ashley Roberson on 09-28-2023 Platelets (Bld) [#/Vol] 377 10*3/uL 150-450 [facility] Potassium [Moles/volume] in Serum or PlasmaOrdered By: Ashley Roberson on 09-28-2023 Potassium [Moles/Vol] 3.8 mmol/L 3.5-5.1 [facility] Protein Auto test strip (U) [Mass/Vol]Ordered By: Ashley Roberson on 09-28-2023 Protein (U) [Mass/Vol] 30 mg/dL Negative [facility] Protein [Mass/volume] in Ser um or PlasmaOrdered By: Ashley Roberson on 09-28-2023 Protein [Mass/Vol] 8.1 g/dL 6.4-8.9 [facility] Prothrombin time (PT)Ordered By: Ashley Roberson on 09-28-2023 PT Coag (PPP) [Time] 13.8 s 9.0-12.9 [facility] Comment on above: A hematocrit value g reater than 55% may lead to inaccurate results in coagulation testing. Patients having hematocrit values >55% require a special collection tube for coagulation studies. Please contact the laboratory at [phone] for redraw instructions. RBC Auto (Bld) [#/Vol]Ordere d By: Ashley Roberson on 09-28-2023 RBC (Bld) [#/Vol] 4.55 10*6/uL 3.60-5.00 [facility] Serum or plasma albumin/glob ulin mass ratioOrdered By: Ashley Roberson on 09-28-2023 Albumin/Globulin [Mass ratio] 1.5 {ratio} [facility] Serum or plasma anion gap de terminationOrdered By: Ashley Roberson on 09-28-2023 Anion gap [Moles/Vol] 18.4 mmol/L 6.0-15.0 [facility] Sodium [Moles/volume] in Ser um or PlasmaOrdered By: Ashley Roberson on 09-28-2023 Sodium [Moles/Vol] 139 mmol/L 136-145 [facility] Specific gravity Auto test s trip (U) [Rel density]Ordered By: Ashley Roberson on 09-28-2023 Specific gravity (U) [Rel density] 1.030 1.001-1.03 0 [facility] Squamous epithelial cells de tection in urine sediment by light microscopyOrdered By: Ashley Roberson on 09-28-2023 Epithelial cells.squamous LM Ql (Urine sed) 3-4 [HPF] 0-2 [facility] Troponin I.cardiac [Mass/vol ume] in Serum or Plasma by Detection limit <= 0.01 ng/Ordered By: Ashley Roberson on 09-28-2023 Troponin I.cardiac DL <= 0.01 ng/mL [Mass/Vol] 3.3 pg/mL 0.0-15.0 [facility] Urea nitrogen [Mass/volume] in Serum or PlasmaOrdered By: Ashley Roberson on 09-28-2023 Urea nitrogen [Mass/Vol] 12 mg/dL 7-25 [facility] Urine bacteria detection by automated methodOrdered By: Ashley Roberson on 09-28-2023 Bacteria Auto Ql (U) None seen None Seen [facility] Urine clarity by refractomet ry automatedOrdered By: Ashley Roberson on 09-28-2023 Clarity Refractometry automated (U) Clear Clear [facility] Urine culture routineOrdered By: Ashley Roberson on 09-28-2023 Bacteria identified Cx Nom (U) Strep agalactiae - (group b) [facility] Urine glucose measurement by automated test strip (mass/volume)Ordered By: Ashley Roberson on 09-28-2023 Glucose Auto test strip (U) [Mass/Vol] Normal mg/dL Normal [facility] Urine hemoglobin detection b y automated test stripOrdered By: Ashley Roberson on 09-28-2023 Hemoglobin Auto test strip Ql (U) Negative Negative [facility] Urine leukocyte esterase det ection by automated test stripOrdered By: Ashley Roberson on 09-28-2023 Leukocyte esterase Auto test strip Ql (U) 3+ Negative [facility] Urobilinogen Auto test strip (U) [Mass/Vol]Ordered By: Ashley Roberson on 09-28-2023 Urobilinogen (U) [Mass/Vol] Normal mg/dL Normal [facility] WBC Auto (Bld) [#/Vol]Ordere d By: Ashley Roberson on 09-28-2023 WBC (Bld) [#/Vol] 17.6 10*3/uL 3.8-11.6 [facility] pH Auto test strip (U)Ordere d By: Ashley Roberson on 09-28-2023 pH (U) 6.0 [pH] 5.0-9.0 [facility] Amphetamine Screen Ql (U)Ord ered By: Jordi Asacher on 09-10-2023 Amphetamines Ql (U) Negative Negative [facility] Barbiturates [Presence] in U rine by Screen methodOrdered By: Imad Asaad on 09-10-2023 Barbiturates Screen Ql (U) Negative Negative [facility] Benzodiazepines Screen Ql (U )Ordered By: Imad Asaad on 09-10-2023 Benzodiazepines Ql (U) Negative Negative [facility] Benzoylecgonine [Presence] i n Urine by Screen methodOrdered By: Imad Asaad on 09-10-2023 Benzoylecgonine Screen Ql (U) Negative Negative [facility] Cannabinoids [Presence] in U rine by Screen methodOrdered By: Imad Asaad on 09-10-2023 Cannabinoids Screen Ql (U) Positive Negative [facility] Comment on above: These are unconfirme d results and should not be used for legal purposes. Drug Cut-Off Concentration: AMPH 1000 ng/mL VENKATA 200 ng/mL BREANNA 200 ng/mL COCM 300 ng/mL OP 300 ng/mL PCP 25 ng/mL THC 20 ng/mL HCG ( test) IA.rapi d Ql (U)Ordered By: Imad Asaad on 09-10-2023 HCG ( test) Ql (U) Negative [facility] Opiates [Presence] in Urine by Screen methodOrdered By: Imad Asaad on 09-10-2023 Opiates Screen Ql (U) Negative Negative [facility] Phencyclidine Screen Ql (U)O rdered By: Imad Asaad on 09-10-2023 Phencyclidine Ql (U) Negative Negative [facility] HCG ( test) IA.rapi d Ql (U)Ordered By: Imad Asaad on 06-03-2023 HCG ( test) Ql (U) Negative [facility] C reactive protein [Mass/vol ume] in Serum or PlasmaOrdered By: Imad Asaad on 05-08-2023 CRP [Mass/Vol] < 0.5 mg/dL 0.0-0.5 [facility] Calprotectin [Mass/mass] in StoolOrdered By: Imad Asaad on 05-08-2023 Calprotectin (Stl) [Mass/Mass] <5 ug/g 0-120 [facility] Comment on above: Concentration Interp retation Follow-Up< 5 - 50 ug/g Normal None>50 -120 ug/g Borderline Re-evaluate in 4-6 weeks >120 ug/g Abnormal Repeat as clinically indicatedPerformed at: [address] [id number] Director: Joseph Tang MD, Phone: [phone] Clostridioides difficile tox in B tcdB gene [Presence] in Stool by OMAIRA with probe deteOrdered By: Jordi Seals on 05-08-2023 C. difficile toxin B tcdB gene OMAIRA+probe Ql (Stl) Negative Negative [facility] Comment on above: Testing performed by RT-PCR Elastase.pancreatic [Mass/ma ss] in StoolOrdered By: Jordi Seals on 05-08-2023 Elastase.pancreatic (Stl) [Mass/Mass] 284 >200 [facility] Comment on above: Result Units: ug Bambi st./g Severe Pancreatic Insufficiency: <100 Moderate Pancreatic Insufficiency: 100 - 200 Normal: >200Performed at: [facility] [id number] Director: Joseph Tang MD, Phone: [phone] Erythrocyte sedimentation ra te by Photometric methodOrdered By: Jordi Seals on 05-08-2023 ESR Photometric method (Bld) [Velocity] 3 mm/hr 0-19 [facility] HIV 1 and HIV-2 antibody ass ay with HIV-1 p24 antigen detectionOrdered By: Jordi Seals on 05-08-2023 HIV 1+2 Ab+HIV1 p24 Ag IA Ql Non-Reactive Non Reactive [facility] Comment on above: HIV NegativeHIV-1/HI V-2 antibodies and HIV-1 p24 antigen were NOTdetected. There is no laboratory evidence of HIV infection.Performed at: [facility] [address] [id number] Director: Mendel Rubin PhD, Phone: [phone] IgA [Mass/volume] in Serum o r PlasmaOrdered By: Jordi Seals on 05-08-2023 IgA [Mass/Vol] 260 mg/dL 87-352 [facility] Comment on above: Performed at: [facility] [id number] [place], [place] [id number] Director: Mendel Rubin PhD, Phone: [phone] No Panel InformationOrdered By: Jordi Seals on 05-08-2023 Endomysial IgA Antibody Negative Negative F [facility] Ova and Parasite Result 1 N/A [facility] Ova and Parasite Result 1 [facility] Ova or parasites identificat ionOrdered By: Jordi Seals on 05-08-2023 Ova and parasites identified LM Nom (Unsp spec) N/A [facility] Ova and parasites identified LM Nom (Unsp spec) [facility] Serum gliadin peptide IgA an tibody assay (units/volume)Ordered By: Jordi Seals on 05-08-2023 Gliadin peptide IgA Qn (S) 6 units 0-19 [facility] Comment on above: Negative 0 - 19 Weak Positive 20 - 30 Moderate to Strong Positive >30 Serum gliadin peptide IgG an tibody assay (units/volume)Ordered By: cher Seals on 05-08-2023 Gliadin peptide IgG Qn (S) 3 units 0-19 [facility] Comment on above: Negative 0 - 19 Weak Positive 20 - 30 Moderate to Strong Positive >30 Serum tissue transglutaminas e (tTG) IgA antibody assay (units/volume)Ordered By: cher Seals on 05-08-2023 tTG IgA Qn (S) <2 U/mL 0-3 [facility] Comment on above: Negative 0 - 3 Weak Positive 4 - 10 Positive >10 Tissue Transglutaminase (tTG) has been identified as the endomysial antigen. Studies have demonstr- ated that endomysial IgA antibodies have over 99% specificity for gluten sensitive enteropathy. Serum tissue transglutaminas e (tTG) IgG antibody assay (units/volume)Ordered By: cher Seals on 05-08-2023 tTG IgG Qn (S) <2 U/mL 0-5 [facility] Comment on above: Negative 0 - 5 Weak Positive 6 - 9 Positive >9 Stool ova and parasites iden tification by concentrationOrdered By: Jordi Seals on 05-08-2023 Ova and parasites identified Concentration Nom (Stl) N/A [facility] Stool ova and parasites iden tification by trichrome stainOrdered By: Jordi Seals on 05-08-2023 Ova and parasites identified Trichrome stain Nom (Stl) N/A [facility] Thyrotropin [Units/volume] i n Serum or PlasmaOrdered By: Imad Asacher on 05-08-2023 TSH Qn 0.49 m[IU]/L 0.45-5.33 [facility] Alanine aminotransferase [En zymatic activity/volume] in Serum or PlasmaOrdered By: Vivian Nieto on 12-29-2022 ALT [Catalytic activity/Vol] 9 U/L 7-52 [facility] Albumin [Mass/volume] in Ser um or Plasma by Bromocresol green (BCG) dye binding methoOrdered By: Vivian Nieto on 12-29-2022 Albumin BCG dye [Mass/Vol] 4.9 g/dL 3.5-5.7 [facility] Alkaline phosphatase [Enzyma tic activity/volume] in Serum or PlasmaOrdered By: Vivian Nieto on 12-29-2022 ALP [Catalytic activity/Vol] 60 U/L 34-104 [facility] Aspartate aminotransferase [ Enzymatic activity/volume] in Serum or PlasmaOrdered By: Vivian Nieto on 12-29-2022 AST [Catalytic activity/Vol] 14 U/L 13-39 [facility] Automated erythrocytes count in urine sediment (number/area)Ordered By: Vivian Nieto on 12-29-2022 RBC Auto (Urine sed) [#/Area] 1-2 [HPF] 0-4 [facility] Automated leukocytes count i n urine sediment (number/area)Ordered By: Vivian Nieto on 12-29-2022 WBC Auto (Urine sed) [#/Area] 20-49 [HPF] 0-4 [facility] Automated urine hyaline cast s count (number/volume)Ordered By: Vivian Nieto on 12-29-2022 Hyaline casts Auto (U) [#/Vol] 10-19 [LPF] 0-1 [facility] Basophils Auto (Bld) [#/Vol] Ordered By: Vivian Nieto on 12-29-2022 Basophils (Bld) [#/Vol] 0.0 10*3/uL 0.0-0.2 [facility] Basophils/100 WBC Auto (Bld) Ordered By: Vivian Nieto on 12-29-2022 Basophils/100 WBC (Bld) 0.4 % . F [facility] Bilirubin Test strip Ql (U)O rdered By: Vivian Nieto on 12-29-2022 Bilirubin Ql (U) Negative Negative [facility] Bilirubin.total [Mass/volume ] in Serum or PlasmaOrdered By: Vivian Nieto on 12-29-2022 Bilirubin [Mass/Vol] 0.6 mg/dL 0.3-1.0 [facility] C reactive protein [Mass/vol ume] in Serum or PlasmaOrdered By: Vivian Nieto on 12-29-2022 CRP [Mass/Vol] 3.1 mg/dL 0.0-0.5 [facility] Calcium [Mass/volume] in Ser um or PlasmaOrdered By: Vivian Nieto on 12-29-2022 Calcium [Mass/Vol] 10.0 mg/dL 8.6-10.3 [facility] Carbon dioxide, total [Moles /volume] in Serum or PlasmaOrdered By: Vivian Nieto on 12-29-2022 CO2 [Moles/Vol] 26.6 mmol/L 21.0-31.0 [facility] Casts typing in urine sedime nt by light microscopyOrdered By: PROVIDER TEMP on 12-29-2022 Casts LM Nom (Urine sed) N/A [facility] Chloride [Moles/volume] in S isabel or PlasmaOrdered By: Vivian Tejadaimdebra on 12-29-2022 Chloride [Moles/Vol] 103 mmol/L 98-107 [facility] Color Auto (U)Ordered By: Radha Nieto on 12-29-2022 Color (U) Dark yellow Yellow [facility] Creatinine [Mass/volume] in Serum or PlasmaOrdered By: Vivian Nieto on 12-29-2022 Creatinine [Mass/Vol] 0.55 mg/dL 0.60-1.20 [facility] Eosinophils Auto (Bld) [#/Vo l]Ordered By: Vivian Nieto on 12-29-2022 Eosinophils (Bld) [#/Vol] 0.3 10*3/uL 0.0-0.45 [facility] Eosinophils/100 WBC Auto (Bl d)Ordered By: Vivian Nieto on 12-29-2022 Eosinophils/100 WBC (Bld) 3.2 % . [facility] Erythrocyte distribution wid th Auto (RBC) [Ratio]Ordered By: Vivian Nieto on 12-29-2022 Erythrocyte distribution width (RBC) [Ratio] 14.9 % 11.9-15.3 [facility] Erythrocyte sedimentation ra te by Photometric methodOrdered By: [facility] on 12-29-2022 ESR Photometric method (d) [Velocity] 21 mm/hr 0-19 [facility] Globulin Calc (S) [Mass/Vol] Ordered By: [facility]ianshad [facility] on 12-29-2022 Globulin (S) [Mass/Vol] 3.3 g/dL F [facility] Glucose [Mass/volume] in Ser um or PlasmaOrdered By: [facility] on 12-29-2022 Glucose [Mass/Vol] 75 mg/dL 70-100 [facility] Comment on above: ADA recommended refe rence rangeRandom Glucose Reference Range is dependent on time and content of last meal. Glucose of more than 200 mg/dL in a nonstressed, ambulatory subject supports the diagnosis of Diabetes Mellitus. HCG ( test) Colt ott Ql (U)Ordered By: PROVIDER TEMP on 12-29-2022 HCG ( test) Ql (U) Negative [facility] Hematocrit Auto (Bld) [Volum e fraction]Ordered By: Vivian Nieto on 12-29-2022 Hematocrit (Bld) [Volume fraction] 39.6 % 34.0-46.4 [facility] Hemoglobin [Mass/volume] in BloodOrdered By: Vivianshad Nieto on 12-29-2022 Hemoglobin (Bld) [Mass/Vol] 13.2 g/dL 11.8-15.4 [facility] Ketones Auto test strip (U) [Mass/Vol]Ordered By: Vivian Nieto on 12-29-2022 Ketones (U) [Mass/Vol] 3+ Negative Fi [facility] Leukocytes [#/volume] correc michael for nucleated erythrocytes in Blood by Automated counOrdered By: Vivian Bullimore on 12-29-2022 WBC corrected for nucl RBC Auto (Bld) [#/Vol] 9.8 10*3/uL 3.8-11.6 [facility] Lymphocytes Auto (Bld) [#/Vo l]Ordered By: Vivian Bullimore on 12-29-2022 Lymphocytes (Bld) [#/Vol] 1.2 10*3/uL 1.00-4.8 [facility] Lymphocytes/100 WBC Auto (Bl d)Ordered By: Vivian Bullimore on 12-29-2022 Lymphocytes/100 WBC (Bld) 11.9 % . [facility] MCH Auto (RBC) [Entitic mass ]Ordered By: Vivian Bullimore on 12-29-2022 MCH (RBC) [Entitic mass] 27.5 pg 24.7-34.3 [facility] MCHC Auto (RBC) [Mass/Vol]Or dered By: Vivian Bullimore on 12-29-2022 MCHC (RBC) [Mass/Vol] 33.3 g/dL 32.0-35.0 [facility] MCV Auto (RBC) [Entitic vol] Ordered By: Vivian Bullimore on 12-29-2022 MCV (RBC) [Entitic vol] 82.6 fL 80-100 [facility] Monocytes Auto (Bld) [#/Vol] Ordered By: Vivian Bullimore on 12-29-2022 Monocytes (Bld) [#/Vol] 0.5 10*3/uL 0.0-0.8 [facility] Monocytes/100 WBC Auto (Bld) Ordered By: Vivian Bullimore on 12-29-2022 Monocytes/100 WBC (Bld) 5.1 % . F [facility] Neutrophils Auto (Bld) [#/Vo l]Ordered By: Vivian Bullimore on 12-29-2022 Neutrophils (Bld) [#/Vol] 7.8 10*3/uL 1.8-7.7 [facility] Neutrophils/100 WBC Auto (Bl d)Ordered By: Vivian Tejadaimore on 12-29-2022 Neutrophils/100 WBC (Bld) 79.4 % . [facility] Nitrite Test strip Ql (U)Ord ered By: Vivian Tejadaimore on 12-29-2022 Nitrite Ql (U) Negative Negative [facility] No Panel InformationOrdered By: Vivian Nieto on 12-29-2022 Estimated GFR (CKD-EPI) > 60.0 mL/Min [facility] Creatinine Clearance (Chem 123.12 [facility] Nucleated erythrocytes [Pres ence] in Blood by Automated countOrdered By: Vivian Nieto on 12-29-2022 Nucleated RBC Auto Ql (Bld) 0.1 /100{WBC} 0-0.5 [facility] Platelet mean volume Auto (B ld) [Entitic vol]Ordered By: Vivian Zamudioore on 12-29-2022 Platelet mean volume (Bld) [Entitic vol] 7.7 fL 6.3-10.7 [facility] Platelets Auto (Bld) [#/Vol] Ordered By: Vivian Tejadaimore on 12-29-2022 Platelets (Bld) [#/Vol] 305 10*3/uL 150-450 [facility] Potassium [Moles/volume] in Serum or PlasmaOrdered By: Vivian Tejadaimore on 12-29-2022 Potassium [Moles/Vol] 3.6 mmol/L 3.5-5.1 [facility] Protein Auto test strip (U) [Mass/Vol]Ordered By: Vivian Tejadaimore on 12-29-2022 Protein (U) [Mass/Vol] 30 mg/dL Negative [facility] Protein [Mass/volume] in Ser um or PlasmaOrdered By: Vivian Tejadaimore on 12-29-2022 Protein [Mass/Vol] 8.2 g/dL 6.4-8.9 [facility] RBC Auto (Bld) [#/Vol]Ordere d By: Vivian Bullimore on 12-29-2022 RBC (Bld) [#/Vol] 4.79 10*6/uL 3.60-5.00 [facility] Serum or plasma albumin/glob ulin mass ratioOrdered By: Vivian Nieto on 12-29-2022 Albumin/Globulin [Mass ratio] 1.5 {ratio} [facility] Serum or plasma anion gap de terminationOrdered By: Vivian Nieto on 12-29-2022 Anion gap [Moles/Vol] 14.0 mmol/L 6.0-15.0 [facility] Sodium [Moles/volume] in Ser um or PlasmaOrdered By: Vivian Nieto on 12-29-2022 Sodium [Moles/Vol] 140 mmol/L 136-145 [facility] Specific gravity Auto test s trip (U) [Rel density]Ordered By: Vivian Nieto on 12-29-2022 Specific gravity (U) [Rel density] 1.030 1.001-1.03 0 [facility] Squamous epithelial cells de tection in urine sediment by light microscopyOrdered By: Vivian Nieto on 12-29-2022 Epithelial cells.squamous LM Ql (Urine sed) 10-19 [HPF] 0-2 [facility] Urea nitrogen [Mass/volume] in Serum or PlasmaOrdered By: Vivian Nieto on 12-29-2022 Urea nitrogen [Mass/Vol] 7 mg/dL 7-25 [facility] Urine bacteria detection by automated methodOrdered By: Vivian Nieto on 12-29-2022 Bacteria Auto Ql (U) None seen None Seen [facility] Urine clarity by refractomet ry automatedOrdered By: Vivian Nieto on 12-29-2022 Clarity Refractometry automated (U) Cloudy Clear [facility] Urine glucose measurement by automated test strip (mass/volume)Ordered By: Vivian Nieto on 12-29-2022 Glucose Auto test strip (U) [Mass/Vol] Normal mg/dL Normal [facility] Urine hemoglobin detection b y automated test stripOrdered By: Vivian Nieto on 12-29-2022 Hemoglobin Auto test strip Ql (U) Negative Negative [facility] Urine leukocyte esterase det ection by automated test stripOrdered By: Vivian Nieto on 12-29-2022 Leukocyte esterase Auto test strip Ql (U) 2+ Negative [facility] Urobilinogen Auto test strip (U) [Mass/Vol]Ordered By: Vivian Tejadaaxel on 12-29-2022 Urobilinogen (U) [Mass/Vol] Normal mg/dL Normal [facility] WBC Auto (Bld) [#/Vol]Ordere d By: Vivian Tejadaimore on 12-29-2022 WBC (Bld) [#/Vol] 9.8 10*3/uL 3.8-11.6 [facility] pH Auto test strip (U)Ordere d By: Vivian Tejadaimore on 12-29-2022 pH (U) 6.5 [pH] 5.0-9.0 [facility] Physician Referralon 023 Physician Referral [id number] Normal [facility] Ambulatory Visit Summaryon 0 11-06-2022 Ambulatory [...] the Following Appointments Follow Up with Kayy Fontnaa MD, [facility], MED When: Only if needed Where: [address] [place] [phone] Someone Will Contact You Regarding These Appointments [facility] External Ambulatory Referral, Gastroenterology, 11/06/22 14:38:00 EST, Abdominal pain Normal [facility] Family Medicine Office/Clini c Noteon 11-06-2022 Family Medicine Office/Clinic Note Chief Complaint EST diarrhea and ibs symptoms HPI Staff 22 year old female presents with stomach issues and lightheadedness worse after and has diarrhea every morning states it is hard to work when all you are doing is going to the bathroom states her mother had IBS History of Present Illness PEDRITODAWN is a 22 Years White Female presenting to [facility] with GI issues for long time saw [...] pain (R10.9: Unspecified abdominal pain) referral to [facility] placed since [facility] unable to get her in for a couple months keep food and symptom journal avoid trigger foods Ordered: [facility] External Ambulatory Referral 2. Diarrhea (R19.7: Diarrhea, unspecified) referral to [facility] placed since [facility] unable to get her in for a couple months keep food and symptom journal avoid trigger foods Ordered: [facility] External Ambulatory Referral Follow-up With When Contact Information Kayy Fontana MD, [facility], MED Only if needed [address] [place] [phone] Additional Instructions: Problem List/Past Medical History Ongoing No qualifying data Historical No qualifying data Medications Jencycla 0.35 mg oral tablet Allergies amoxicillin (Hives) Social History Tobacco Never (less than 100 in lifetime) Tobacco Use:. Never Smokeless Tobacco Use:., 11/06/2022 Immunizations Vaccine Date Status Comments influenza virus vaccine, inactivated - Not Given Patient Refuses SARS-CoV-2 mRNA (tosachanameran 5y-11y) vac - Not Given Patient Refuses Normal [facility] Comment on above: Result Comment: Elec tronically Signed By: Kayy Fontana MD\.br\Date and Time Signed: 11/06/22 14:45 EST Provider Letteron 11-06-2022 Provider Letter (Inserted Image. Trish ble to display) November 06, 2022 [address] CUE[address]AR [address] [place] [address] DAWN CUELLAR T 2000 To Whom It May Concern, Please excuse above patient from work today, 11/06/22. Sincerely, Kayy Fontana MD [facility] Normal [facility] CBC AUTO DIFFon 07-24-2022 BASO # 0.1 103/ul Normal 0.0-0.1 [facility] Comment on above: Performed By: #### C BC #### [facility] [address] [address] [address] Mariela Larkin Basophils/100 WBC (Bld) 0.4 % Normal 0.2-2.0 [facility] Comment on above: Performed By: #### C BC #### [facility] [address] [address] [address] Mariela Larkin EO # 0.3 103/ul Normal 0.0-0.7 [facility] Comment on above: Performed By: #### C BC #### [facility] [address] [address] [address] Mariela Larkin Eosinophils/100 WBC (Bld) 2.2 % Normal 0.9-7.0 [facility] Comment on above: Performed By: #### C BC #### [facility] [address] [address] [address] Mariela Larkin Erythrocyte distribution width (RBC) [Ratio] 16.8 % Critically high 11.0-15.0 [facility] Comment on above: Performed By: #### C BC #### [facility] [address] [address] [address] Mariela Larkin Hematocrit (Bld) [Volume fraction] 30.4 % Critically low 36.0-48.0 [facility] Comment on above: Performed By: #### C BC #### [facility] [address] [address] [address] Mariela Larkin Hemoglobin (Bld) [Mass/Vol] 10.0 g/dL Critically low 12.0-16.0 [facility] Comment on above: Performed By: #### C BC #### [facility] [address] [place] [address] Dr. Mariela Larkin IG # 0.13 10e3/ul Critically high 0.00-0.03 [facility] Comment on above: Performed By: #### C BC #### [facility] [address] [place] [address] Dr. Mariela Larkin IG % 0.9 % Critically high 0.0-0.5 [facility] Comment on above: Performed By: #### C BC #### [facility] [address] [place] [address] Dr. Mariela Larkin LYMPH # 3.1 103/ul Normal 1.2-3.8 [facility] Comment on above: Performed By: #### C BC #### [facility] [address] [place] [address] Dr. Mariela Larkin Lymphocytes/100 WBC (Bld) 22.4 % Normal 20.5-60.0 [facility] Comment on above: Performed By: #### C BC #### [facility] [address] [place] [address] Dr. Mariela Larkin MANUAL DIFF REQ NO Normal [facility] Comment on above: Performed By: #### C BC #### [facility] [address] [place] [address] Dr. Mariela Larkin MCH (RBC) [Entitic mass] 27.0 pg Normal 26.7-34.0 [facility] Comment on above: Performed By: #### C BC #### [facility] [address] [place] [address] Dr. Mariela Larkin MCHC (RBC) [Mass/Vol] 32.9 g/dL Normal 29.9-35.2 [facility] Comment on above: Performed By: #### C BC #### [facility] [address] [place] [address] Dr. Mariela Larkin MCV (RBC) [Entitic vol] 82.2 fL Normal 81.0-99.0 [facility] Comment on above: Performed By: #### C BC #### [facility] [address] [place] [address] Dr. Mariela Larkin MONO # 0.7 103/ul Normal 0.3-0.8 [facility] Comment on above: Performed By: #### C BC #### [facility] [address] [place] [address] Dr. Mariela Larkin Monocytes/100 WBC (Bld) 5.1 % Normal 1.7-12.0 [facility] Comment on above: Performed By: #### C BC #### [facility] [address] [place] [address] Dr. Mariela Larkin NEUT # 9.6 103/ul Critically high 1.4-6.5 [facility] Comment on above: Performed By: #### C BC #### [facility] [address] [place] [address] Dr. Mariela Larkin Neutrophils/100 WBC (Bld) 69.0 % Normal 43.0-75.0 [facility] Comment on above: Performed By: #### C BC #### [facility] [address] [place] [address] Dr. Mariela Larkin Platelet mean volume (Bld) [Entitic vol] 9.4 fL Critically low 9.5-13.5 [facility] Comment on above: Performed By: #### C BC #### [facility] [address] [place] [address] Dr. Mariela Larkin PLT 243 103/ul Normal 150-450 [facility] Comment on above: Performed By: #### C BC #### [facility] [address] [place] [address] Dr. Mariela Larkin RBC 3.70 106/ul Critically low 4.20-5.40 [facility] Comment on above: Performed By: #### C BC #### [facility] [address] [place] [address] Dr. Mariela Larkin WBC 13.9 103/ul Critically high 4.0-11.0 [facility] Comment on above: Performed By: #### C BC #### [facility] [address] [place] [address] Dr. Mariela Larkin [facility] SARS-CoV-2 (COVID-19) RNA OMAIRA+probe Ql (Unsp spec) Not detected Normal NOT DETECTED [facility] Comment on above: Result Comment: [...] for this test is supported by the [employer] of Health and Human Service's declaration that [...] used). Performed By: #### C VDTBH #### [facility] [address] [place] [address] Dr. Mariela Larkin DIRECT COOMBSon 07-23-2022 DIRECT AYANNA Negative Normal [facility] Comment on above: Performed By: #### D IRCMB #### [facility] [address] [place] [address] Dr. Mariela Larkin DRUG SCREEN RAPID (URINE)on 07-23-2022 AMP Negative Normal NEGATIVE [facility] Comment on above: Performed By: #### A FPMAT #### [facility] [address] [place] [address] Dr. Mariela Larkin BAR Negative Normal NEGATIVE [facility] Comment on above: Performed By: #### A FPMAT #### [facility] [address] [place] [address] Dr. Mariela Larkin [facility] Negative Normal NEGATIVE [facility] Comment on above: Performed By: #### A FPMAT #### [facility] [address] [place] [address] Dr. Mariela Larkin BZO Negative Normal NEGATIVE [facility] Comment on above: Performed By: #### A FPMAT #### [facility] [address] [place] [address] Dr. Mariela Larkin CECIL Negative Normal NEGATIVE [facility] Comment on above: Performed By: #### A FPMAT #### [facility] [address] [place] [address] Dr. Mariela Larkin CUT-OFFS SEE BELOW Normal [facility] Comment on above: Result Comment: AMP (Amphetamine): 500ng/mL, BAR (Barbituates): 200 ng/mL, BZO (Benzodiazepines): 150 ng/mL, BUP (Buprenorphine): 10 ng/mL, CECIL (Cocaine): 150 ng/mL, mAMP (Methamphetamine): 500 ng/mL, MTD (Methadone): 200 ng/mL, OPI (Opiates): 100 ng/mL, OXY (Oxycodone): 100 ng/mL, PCP (Phencyclidine): 25 ng/mL, PPX (Propoxyphene): 300 ng/mL, THC (Cannabinoids): 50 ng/mL, TCA (Trycyclic Antidepressants): 300 ng/mL Performed By: #### A FPMAT #### [facility] [address] [place] [address] Dr. Mariela Larkin DRUG CUT HEADER DRUG CLASS TEST SYST EM CUT-OFF CONCENTRATIONS ARE FOLLOWS: Normal [facility] Comment on above: Performed By: #### A FPMAT #### [facility] [address] [place] [address] Dr. Mariela Larkin mAMP Negative Normal NEGATIVE [facility] Comment on above: Performed By: #### A FPMAT #### [facility] [address] [place] [address] Dr. Mariela Larkin MTD Negative Normal NEGATIVE [facility] Comment on above: Performed By: #### A FPMAT #### [facility] [address] [place] [address] Dr. Mariela Larkin OPI Negative Normal NEGATIVE [facility] Comment on above: Performed By: #### A FPMAT #### [facility] [address] [place] [address] Dr. Mariela Larkin OXY Negative Normal NEGATIVE [facility] Comment on above: Performed By: #### A FPMAT #### [facility] [address] [place] [address] Dr. Mariela Larkin PCP Negative Normal NEGATIVE [facility] Comment on above: Performed By: #### A FPMAT #### [facility] [address] [place] [address] Dr. Mariela Larkin PPX Negative Normal NEGATIVE [facility] Comment on above: Performed By: #### A FPMAT #### [facility] [address] [place] [address] Dr. Mariela Larkin TCA Negative Normal NEGATIVE [facility] Comment on above: Performed By: #### A FPMAT #### [facility] [address] [place] [address] Dr. Mariela Larkin THC Positive Abnormal NEGATIVE [facility] Comment on above: Performed By: #### A FPMAT #### [facility] [address] [place] [address] Dr. Mariela Larkin TYPE AND SCREENon 07-23-2022 TYPE AND SCREEN Antibody Screen NEGA TIVE Blood Bank Notes orignal specimen hemolyzed, repeat testing performed on redraw. Hemolysis Blood Bank Notes could cause false positive reaction. ABO Rh Typing AB Rh Positive Normal [facility] Comment on above: Performed By: #### C VDTBH #### [facility] [address] [place] [address] Dr. Mariela Larkin CBC AUTO DIFFon 07-22-2022 BASO # 0.0 103/ul Normal 0.0-0.1 [facility] Comment on above: Performed By: #### C BC #### [facility] [address] [place] [address] Dr. Mariela Larkin Basophils/100 WBC (Bld) 0.2 % Normal 0.2-2.0 [facility] Comment on above: Performed By: #### C BC #### [facility] [address] [place] [address] Dr. Mariela Larkin EO # 0.2 103/ul Normal 0.0-0.7 [facility] Comment on above: Performed By: #### C BC #### [facility] [address] [place] [address] Dr. Mariela Larkin Eosinophils/100 WBC (Bld) 1.0 % Normal 0.9-7.0 [facility] Comment on above: Performed By: #### C BC #### [facility] [address] [place] [address] Dr. Mariela Larkin Erythrocyte distribution width (RBC) [Ratio] 16.3 % Critically high 11.0-15.0 [facility] Comment on above: Performed By: #### C BC #### [facility] [address] [place] [address] Dr. Mariela Larkin Hematocrit (Bld) [Volume fraction] 34.0 % Critically low 36.0-48.0 [facility] Comment on above: Performed By: #### C BC #### [facility] [address] [place] [address] Dr. Mariela Larkin Hemoglobin (Bld) [Mass/Vol] 11.0 g/dL Critically low 12.0-16.0 [facility] Comment on above: Performed By: #### C BC #### [facility] [address] [place] [address] Dr. Mariela Larkin IG # 0.14 10e3/ul Critically high 0.00-0.03 [facility] Comment on above: Performed By: #### C BC #### [facility] [address] [place] [address] Dr. Mariela Larkin IG % 0.9 % Critically high 0.0-0.5 [facility] Comment on above: Performed By: #### C BC #### [facility] [address] [place] [address] Dr. Mariela Larkin LYMPH # 2.5 103/ul Normal 1.2-3.8 [facility] Comment on above: Performed By: #### C BC #### [facility] [address] [place] [address] Dr. Mariela Larkin Lymphocytes/100 WBC (Bld) 15.9 % Critically low 20.5-60.0 [facility] Comment on above: Performed By: #### C BC #### [facility] [address] [place] [address] Dr. Mariela Larkin MANUAL DIFF REQ NO Normal [facility] Comment on above: Performed By: #### C BC #### [facility] [address] [place] [address] Dr. Mariela Larkin MCH (RBC) [Entitic mass] 26.2 pg Critically low 26.7-34.0 [facility] Comment on above: Performed By: #### C BC #### [facility] [address] [place] [address] Dr. Mariela Larkin MCHC (RBC) [Mass/Vol] 32.4 g/dL Normal 29.9-35.2 [facility] Comment on above: Performed By: #### C BC #### [facility] [address] [place] [address] Dr. Mariela Larkin MCV (RBC) [Entitic vol] 81.0 fL Normal 81.0-99.0 [facility] Comment on above: Performed By: #### C BC #### [facility] [address] [place] [address] Dr. Mariela Larkin MONO # 0.9 103/ul Critically high 0.3-0.8 [facility] Comment on above: Performed By: #### C BC #### [facility] [address] [place] [address] Dr. Mariela Larkin Monocytes/100 WBC (Bld) 5.5 % Normal 1.7-12.0 [facility] Comment on above: Performed By: #### C BC #### [facility] [address] [place] [address] Dr. Mariela Larkin NEUT # 11.9 103/ul Critically high 1.4-6.5 [facility] Comment on above: Performed By: #### C BC #### [facility] [address] [place] [address] Dr. Mariela Larkin Neutrophils/100 WBC (Bld) 76.5 % Critically high 43.0-75.0 [facility] Comment on above: Performed By: #### C BC #### [facility] [address] [place] [address] Dr. Mariela Larkin Platelet mean volume (Bld) [Entitic vol] 9.8 fL Normal 9.5-13.5 [facility] Comment on above: Performed By: #### C BC #### [facility] [address] [place] [address] Dr. Mariela Larkin PLT 268 103/ul Normal 150-450 [facility] Comment on above: Performed By: #### C BC #### [facility] [address] [place] [address] Dr. Mariela Larkin RBC 4.20 106/ul Normal 4.20-5.40 [facility] Comment on above: Performed By: #### C BC #### [facility] [address] [place] [address] Dr. Mariela Larkin WBC 15.6 103/ul Critically high 4.0-11.0 [facility] Comment on above: Performed By: #### C BC #### [facility] [address] [place] [address] Dr. Mariela Larkin GROUP B STREP CULTUREon [...] S F Tetracycline >=16 R F Normal [facility] Comment on above: Performed By: #### C VDTBH #### [facility] [address] [place] [address] Dr. Mariela Larkin CHLAMYDIA/GONOCOCCUS OMAIRA ( AB/URINE/PAPon 07-12-2022 Chlamydia trachomatis, OMAIRA Negative Normal Negative [facility] Comment on above: Performed By: #### C VDTBH #### [facility] [address] [place] [address] Dr. Mariela Larkin Neisseria gonorrhoeae, OMAIRA Negative Normal Negative [facility] Comment on above: Performed By: #### C VDTBH #### [facility] [address] [place] [address] Dr. Mariela Larkin VAGINITIS/VAGINOSIS DNA PROB Kulwinder 07-11-2022 Ambreen species Positive Abnormal Negative [facility] Comment on above: Performed By: #### C VDTBH #### [facility] [address] [place] [address] Dr. Mariela Larkin Gardnerella vaginalis Negative Normal Negative [facility] Comment on above: Performed By: #### C VDTBH #### [facility] [address] [place] [address] Dr. Mariela Larkin Trichomonas vaginalis Negative Normal Negative [facility] Comment on above: Performed By: #### C VDTBH #### [facility] [address] [place] [address] Dr. Mariela Larkin UA (CLEAN/CATCH) PILOT CAPTAIN/MICRO I F IND.on 07-04-2022 Bilirubin Ql (U) Negative Normal NEGATIVE [facility] Comment on above: Performed By: #### A FPMAT #### [facility] [address] [place] [address] Dr. Mariela Larkin Clarity (U) CLEAR Normal CLEAR [facility] Comment on above: Performed By: #### A FPMAT #### [facility] [address] [place] [address] Dr. Mariela Larkin Color (U) YELLOW Normal YELLOW [facility] Comment on above: Performed By: #### A FPMAT #### [facility] [address] [place] [address] Dr. Mariela Larkin Glucose Ql (U) Negative Normal NEGATIVE [facility] Comment on above: Performed By: #### A FPMAT #### [facility] [address] [place] [address] Dr. Mariela Larkin Hemoglobin Ql (U) Negative Normal NEGATIVE [facility] Comment on above: Performed By: #### A FPMAT #### [facility] [address] [place] [address] Dr. Mariela Larkin Ketones Ql (U) 15 mg/dl Abnormal NEGATIVE [facility] Comment on above: Performed By: #### A FPMAT #### [facility] [address] [place] [address] Dr. Mariela Larkin LEUKOCYTES Negative Normal NEGATIVE [facility] Comment on above: Performed By: #### A FPMAT #### [facility] [address] [place] [address] Dr. Mariela Larkin Nitrite Ql (U) Negative Normal NEGATIVE [facility] Comment on above: Performed By: #### A FPMAT #### [facility] [address] [place] [address] Dr. Mariela Larkin pH (U) 7.5 [pH] Normal 5-9 [facility] Comment on above: Performed By: #### A FPMAT #### [facility] [address] [place] [address] Dr. Mariela Larkin SPEC GRAVITY 1.020 Normal 1.005-<=1. 025 [facility] Comment on above: Performed By: #### A FPMAT #### [facility] [address] [place] [address] Dr. Mariela Larkin UA PROTEIN TRACE Normal NEGATIVE/ TRACE [facility] Comment on above: Performed By: #### A FPMAT #### [facility] [address] [place] [address] Dr. Mariela Larkin UR MICRO IND NOT INDICATED Normal [facility] Comment on above: Performed By: #### A FPMAT #### [facility] [address] [place] [address] Dr. Mariela Larkin Urobilinogen Qn (U) 1.0 {Vidya'U}/dL Normal 0.2 - 1. 0 [facility] Comment on above: Performed By: #### A FPMAT #### [facility] [address] [place] [address] Dr. aMriela Larkin PREG GROWTHon 06-21-2022 US PREG GROWTH EXAMINATION: [...] by: YENNI ROSE Date: 2022-06-21 18:37 Normal [facility] GLUCOSE - 1HRon 05-07-2022 Glucose [Mass/Vol] 120 mg/dL Critically high 74-106 T [facility] Comment on above: Performed By: #### G LU1HR #### [facility] [address] [place] [address] Dr. Mariela Larkin HEMOGRAM AND PLATELon 2021 Hematocrit (Bld) [Volume fraction] 32.6 % Critically low 36.0-48.0 [facility] Comment on above: Performed By: #### A FPMAT #### [facility] [address] [place] [address] Dr. Mariela Larkin Hemoglobin (Bld) [Mass/Vol] 10.5 g/dL Critically low 12.0-16.0 [facility] Comment on above: Performed By: #### A FPMAT #### [facility] [address] [place] [address] Dr. Mariela Larkin MCH (RBC) [Entitic mass] 28.2 pg Normal 26.7-34.0 [facility] Comment on above: Performed By: #### A FPMAT #### [facility] [address] [place] [address] Dr. Mariela Larkin MCHC (RBC) [Mass/Vol] 32.2 g/dL Normal 29.9-35.2 [facility] Comment on above: Performed By: #### A FPMAT #### [facility] [address] [place] [address] Dr. Mariela Larkin MCV (RBC) [Entitic vol] 87.4 fL Normal 81.0-99.0 [facility] Comment on above: Performed By: #### A FPMAT #### [facility] [address] [place] [address] Dr. Mariela Larkin PLT 242 103/ul Normal 150-450 [facility] Comment on above: Performed By: #### A FPMAT #### [facility] [address] [place] [address] Dr. Mariela Larkin RBC 3.73 106/ul Critically low 4.20-5.40 [facility] Comment on above: Performed By: #### A FPMAT #### [facility] [address] [place] [address] Dr. Mariela Larkin WBC 13.2 103/ul Critically high 4.0-11.0 [facility] Comment on above: Performed By: #### A FPMAT #### [facility] [address] [place] [address] Dr. Mariela Larkin UA (CLEAN/CATCH) PILOT CAPTAIN/MICRO I F IND.on 04-24-2022 Bilirubin Ql (U) Negative Normal NEGATIVE [facility] Comment on above: Performed By: #### U ACSIND #### [facility] [address] [place] [address] Dr. Mariela Larkin Clarity (U) CLEAR Normal CLEAR [facility] Comment on above: Performed By: #### U ACSIND #### [facility] [address] [place] [address] Dr. Mariela Larkin Color (U) YELLOW Normal YELLOW [facility] Comment on above: Performed By: #### U ACSIND #### [facility] [address] [place] [address] Dr. Mariela Larkin Glucose Ql (U) Negative Normal NEGATIVE [facility] Comment on above: Performed By: #### U ACSIND #### [facility] [address] [place] [address] Dr. Mariela Larkin Hemoglobin Ql (U) Negative Normal NEGATIVE [facility] Comment on above: Performed By: #### U ACSIND #### [facility] [address] [place] [address] Dr. Mariela Larkin Ketones Ql (U) TRACE Abnormal NEGATIVE [facility] Comment on above: Performed By: #### U ACSIND #### [facility] [address] [place] [address] Dr. Mariela Larkin LEUKOCYTES Negative Normal NEGATIVE [facility] Comment on above: Performed By: #### U ACSIND #### [facility] [address] [place] [address] Dr. Mariela Larkin Nitrite Ql (U) Negative Normal NEGATIVE [facility] Comment on above: Performed By: #### U ACSIND #### [facility] [address] [place] [address] Dr. Mariela Larkin pH (U) 8.0 [pH] Normal 5-9 [facility] Comment on above: Performed By: #### U ACSIND #### [facility] [address] [place] [address] Dr. Mariela Larkin SPEC GRAVITY 1.015 Normal 1.005-<=1. 025 [facility] Comment on above: Performed By: #### U ACSIND #### [facility] [address] [place] [address] Dr. Mariela Larkin UA PROTEIN Negative Normal NEGATIVE/ TRACE [facility] Comment on above: Performed By: #### U ACSIND #### [facility] [address] [place] [address] Dr. Mariela Larkin UR MICRO IND NOT INDICATED Normal [facility] Comment on above: Performed By: #### U ACSIND #### [facility] [address] [place], [place] [address] Dr. Mariela Larkin Urobilinogen Qn (U) 0.2 {Vidya'U}/dL Normal 0.2 - 1. 0 [facility] Comment on above: Performed By: #### U ACSIND #### [facility] [id number] Marilea Larkin US PREG ANATOMY SINGLEon US PREG [...] MARTIN VALVERDE Date: 2022-04-11 16:25 Normal [facility] AFP MATERNAL FOR SPINA BIFID Aon 03-09-2022 AFP MoM 1.59 Normal [facility] Comment on above: Performed By: #### A FPMAT #### [facility] [address] [address] [address] Mariela Larkin AFP Value 95.6 ng/mL Normal [facility] Comment on above: Performed By: #### A FPMAT #### [facility] [address] [address] [address] Mariela Larkin AFP, Serum for Spina Bifida Report Normal [facility] Comment on above: Performed By: #### A FPMAT #### [facility] [address] [address] [address] Mariela Larkin Comment Comment Normal [facility] Comment on above: Result Comment: Maryanne Hagen, Ph.D., [facility] Director . References: Available Upon Request. . Multiples Of Median Cutoffs For AFP Elevations Moran 2.5 Black 2.8 IDD 2.0 Twins 4.5 Abbreviation Definitions IDD - Insulin Dep Diabetes OSBR - Open Spina Bifida Risk . For further inquiries contact [facility] [facility] at [phone]. . This test was developed and its performance characteristics determined by [employer]. It has not been cleared or approved by the Food and Drug Administration. Performed By: #### A FPMAT #### [facility] [address] [place] [address] Dr. Mariela Grover Age Collection Date 18.4 weeks Normal [facility] Comment on above: Performed By: #### A FPMAT #### [facility] [address] [place] [address] Dr. Mariela Larkin Gestat, Age Based on MARILUZ Normal [facility] Comment on above: Result Comment: 07/11 Recalculations are not recommended when gestational dating by LMP and ultrasound are within 10 days. Performed By: #### A FPMAT #### [facility] [address] [place] [address] Dr. Mariela Larkin Insulin Dep Diabetes No Normal [facility] Comment on above: Performed By: #### A FPMAT #### [facility] [address] [place] [address] Dr. Mariela Larkin Interpretation Comment Normal [facility] Comment on above: Result Comment: Inte [...] Customer Services to discuss available options. The [employer] [place] [employer] recommends amniocentesis be offered to women age 35 and older. Performed By: #### A FPMAT #### [facility] [address] [place] [address] Dr. Mariela Larkin [age] Normal [facility] Comment on above: Performed By: #### A FPMAT #### [facility] [address] [place] [address] Dr. Mariela Larkin Multiple Gestation No Normal [facility] Comment on above: Performed By: #### A FPMAT #### [facility] [address] [place] [address] Dr. Mariela Larkin OSBR Risk 1 IN [address] [facility] Comment on above: Performed By: #### A FPMAT #### [facility] [address] [place] [address] Dr. Mariela Larkin PDF . Normal [facility] Comment on above: Performed By: #### A FPMAT #### [facility] [address] [place] [address] Dr. Mariela Larkin Race Normal [facility] Comment on above: Performed By: #### A FPMAT #### [facility] [address] [place] [address] Dr. Mariela Larkin Test Results: Negative Normal [facility] Comment on above: Performed By: #### A FPMAT #### [facility] [address] [place] [address] Dr. Mariela Larkin HEP B SURFACE ANTIGEN SCREEN on 01-27-2022 HBsAg Screen Negative Normal Negative [facility] Comment on above: Performed By: #### C VDTBH #### [facility] [address] [place] [address] Dr. Mariela Larkin HEPATITIS C VIRUS AB W/ REFL EX QUANTon 01-27-2022 HCV AB <0.1 Normal 0.0-0.9 [facility] Comment on above: Performed By: #### A FPMAT #### [facility] [address] [place] [address] Dr. Mariela Larkin Interpretation: Comment Normal [facility] Comment on above: Result Comment: Nega tive Not infected with HCV, unless recent infection is suspected or other evidence exists to indicate HCV infection. Performed By: #### A FPMAT #### [facility] [address] [place] [address] Dr. Mariela Larkin HIV 1 AND 2 WITH REFLEXon HIV Screen 4th Generation wRfx Non-Reactive Normal Non Reactive [facility] Comment on above: Result Comment: HIV Negative HIV-1/HIV-2 antibodies and HIV-1 p24 antigen were NOT detected. There is no laboratory evidence of HIV infection. Performed By: #### C VDTBH #### [facility] [address] [place] [address] Dr. Mariela Larkin RPR QUANTon 01-27-2022 Rapid Plasma Reagin, Quant Non-Reactive Normal NonRea<1:1 [facility] Comment on above: Result Comment: Plea se Note: This test does not meet current guidelines for screening and diagnosis of syphilis. This test is intended for following treatment response in patients being treated for syphilis infection. To screen for syphilis infection, a reflex cascade that includes both RPR and a treponema-specific assay should be utilized, such as Treponema pallidum (Syphilis) Screening [place] (363112) or Rapid Plasma Reagin (RPR) Test With Reflex to Quantitative RPR and Confirmatory Treponema pallidum Antibodies (184467). Performed By: #### R PRQ #### [facility] [address] [place] [address] Dr. Mariela Larkin RUBELLA AB IGGon 05-21-2022 Rubella Antibodies, IgG 3.63 index Normal Immu ne >0.99 [facility] Comment on above: Result Comment: Non- immune <0.90 Equivocal 0.90 - 0.99 Immune >0.99 Performed By: #### A FPMAT #### [facility] [address] [place] [address] Dr. Mariela Larkin CBC AUTO DIFFon 01-26-2022 BASO # 0.0 103/ul Normal 0.0-0.1 [facility] Comment on above: Performed By: #### A FPMAT #### [facility] [address] [place] [address] Dr. Mariela Larkin Basophils/100 WBC (Bld) 0.2 % Normal 0.2-2.0 [facility] Comment on above: Performed By: #### A FPMAT #### [facility] [address] [place] [address] Dr. Mariela Larkin EO # 0.2 103/ul Normal 0.0-0.7 [facility] Comment on above: Performed By: #### A FPMAT #### [facility] [address] [place] [address] Dr. Mariela Larkin Eosinophils/100 WBC (Bld) 2.5 % Normal 0.9-7.0 [facility] Comment on above: Performed By: #### A FPMAT #### [facility] [address] [place] [address] Dr. Mariela Larkin Erythrocyte distribution width (RBC) [Ratio] 14.1 % Normal 11.0-15.0 [facility] Comment on above: Performed By: #### A FPMAT #### [facility] [address] [place] [address] Dr. Mariela Larkin Hematocrit (Bld) [Volume fraction] 33.1 % Critically low 36.0-48.0 [facility] Comment on above: Performed By: #### A FPMAT #### [facility] [address] [place] [address] Dr. Mariela Larkin Hemoglobin (Bld) [Mass/Vol] 11.1 g/dL Critically low 12.0-16.0 [facility] Comment on above: Performed By: #### A FPMAT #### [facility] [address] [place] [address] Dr. Mariela Larkin IG # 0.03 10e3/ul Normal 0.00-0.03 [facility] Comment on above: Performed By: #### A FPMAT #### [facility] [address] [place] [address] Dr. Mariela Larkin IG % 0.3 % Normal 0.0-0.5 [facility] Comment on above: Performed By: #### A FPMAT #### [facility] [address] [place] [address] Dr. Mariela Larkin LYMPH # 1.1 103/ul Critically low 1.2-3.8 [facility] Comment on above: Performed By: #### A FPMAT #### [facility] [address] [place] [address] Dr. Mariela Larkin Lymphocytes/100 WBC (Bld) 11.7 % Critically low 20.5-60.0 [facility] Comment on above: Performed By: #### A FPMAT #### [facility] [address] [place] [address] Dr. Mariela Larkin MANUAL DIFF REQ NO Normal [facility] Comment on above: Performed By: #### A FPMAT #### [facility] [address] [place] [address] Dr. Mariela Larkin MCH (RBC) [Entitic mass] 29.1 pg Normal 26.7-34.0 [facility] Comment on above: Performed By: #### A FPMAT #### [facility] [address] [place] [address] Dr. Mariela Larkin MCHC (RBC) [Mass/Vol] 33.5 g/dL Normal 29.9-35.2 [facility] Comment on above: Performed By: #### A FPMAT #### [facility] [address] [place] [address] Dr. Mariela Larkin MCV (RBC) [Entitic vol] 86.9 fL Normal 81.0-99.0 [facility] Comment on above: Performed By: #### A FPMAT #### [facility] [address] [place] [address] Dr. Mariela Larkin MONO # 0.4 103/ul Normal 0.3-0.8 [facility] Comment on above: Performed By: #### A FPMAT #### [facility] [address] [place] [address] Dr. Mariela Larkin Monocytes/100 WBC (Bld) 4.0 % Normal 1.7-12.0 [facility] Comment on above: Performed By: #### A FPMAT #### [facility] [address] [place] [address] Dr. Mariela Larkin NEUT # 7.5 103/ul Critically high 1.4-6.5 [facility] Comment on above: Performed By: #### A FPMAT #### [facility] [address] [place] [address] Dr. Mariela Larkin Neutrophils/100 WBC (Bld) 81.3 % Critically high 43.0-75.0 [facility] Comment on above: Performed By: #### A FPMAT #### [facility] [address] [place] [address] Dr. Mariela Larkin Platelet mean volume (Bld) [Entitic vol] 9.6 fL Normal 9.5-13.5 [facility] Comment on above: Performed By: #### A FPMAT #### [facility] [address] [place] [address] Dr. Mariela Larkin PLT 225 103/ul Normal 150-450 [facility] Comment on above: Performed By: #### A FPMAT #### [facility] [address] [place] [address] Dr. Mariela Larkin RBC 3.81 106/ul Critically low 4.20-5.40 [facility] Comment on above: Performed By: #### A FPMAT #### [facility] [address] [place] [address] Dr. Mariela Larkin WBC 9.3 103/ul Normal 4.0-11.0 [facility] Comment on above: Performed By: #### A FPMAT #### [facility] [address] [address] [address] Mariela Larkin CULTURE URINEon 01-26-2022 CULTURE URINE Culture Observations : No growth Normal [facility] Comment on above: Performed By: #### U RCX #### [facility] [address] [place] [address] Dr. Mariela Larkin GLYCOHEMOGLOBIN A1Con 2021 ADA RECOMMENDATION SEE BELOW Normal [facility] Comment on above: Result Comment: ADA RECOMMENDED LIMIT 4.0 - 6.0 ADA THERAPEUTIC TARGET < 7.0 ACTION SUGGESTED > 7.0 Performed By: #### A FPMAT #### [facility] [address] [place] [address] Dr. Mariela Larkin Glucose [Mass/Vol] 94 mg/dL Normal [facility] Comment on above: Performed By: #### A FPMAT #### [facility] [address] [place] [id number] Dr. Mariela Larkin HbA1c (Bld) [Mass fraction] 4.9 % Normal 4.5-6.2 [facility] Comment on above: Performed By: #### A FPMAT #### [facility] [address] [place] [address] Dr. Mariela Larkin DHRUV BOX TEST PT SEND OUTo n 01-26-2022 SENT TO REF LAB 01/26/2022 Normal [facility] Comment on above: Performed By: #### C VDTBH #### [facility] [address] [place] [address] Dr. Mariela Larkin TYPE AND SCREENon 01-26-2022 TYPE AND SCREEN Negative Normal [facility] Comment on above: Performed By: #### T NS #### [facility] [address] [place] [address] Dr. Mariela Larkin US PREG TVon 12-25-2021 [...] by: MARTIN VALVERDE Date: 2021-12-25 11:24 Normal [facility] Vital Signs Date Time Vital Sign Value Performing Clinician Facility 01-25-2025 10:37-0400 Body mass index (BMI) [Ratio] 20.58 kg/m2 Cynthia Troy NP Work Phone: [facility] 01-25-2025 10:37-0400 Body weight 51.03 kg Cynthia Troy NP Work Phone: [facility] 01-25-2025 10:37-0400 Diastolic blood pressure 60 mm[Hg] Cynthia Troy PERSONAL LINES INSURANCE ADVISOR Work Phone: [facility] 01-25-2025 10:37-0400 Systolic blood pressure 100 mm[Hg] Cynthia Troy PERSONAL LINES INSURANCE ADVISOR Work Phone: [facility] 12-07-2024 16:28-0400 Body mass index (BMI) [Ratio] 18.68 kg/m2 Demarco Kirby DO Work Phone: [facility] 12-07-2024 16:28-0400 Body weight 46.32 kg Demarco Kirby DO Work Phone: [facility] 12-07-2024 16:28-0400 Diastolic blood pressure 68 mm[Hg] Demarco Kirby DO Work Phone: [facility] 12-07-2024 16:28-0400 Systolic blood pressure 110 mm[Hg] Demarco Kirby DO Work Phone: [facility] 11-05-2024 13:27-0500 Body mass index (BMI) [Ratio] 17.96 kg/m2 [facility] Nurse [facility] 11-05-2024 13:27-0500 Body weight 44.54 kg [facility] Nurse [facility] 11-05-2024 13:27-0500 Diastolic blood pressure 60 mm[Hg] [facility] Nurse [facility] 11-05-2024 13:27-0500 Systolic blood pressure 100 mm[Hg] [facility] Nurse [facility] 09-21-2024 20:40-0500 Body temperature 97.9 [degF] Paramjit Tupa DO Work Phone: [facility] 09-21-2024 20:40-0500 Diastolic blood pressure 67 mm[Hg] Paramjit Tupa DO Work Phone: [facility] 09-21-2024 20:40-0500 Heart rate 67 /min Paramjit Tupa DO Work Phone: [facility] 09-21-2024 20:40-0500 Respiratory rate 20 /min Paramjit Tupa DO Work Phone: [facility] 09-21-2024 20:40-0500 SaO2% (BldA) [Mass fraction] 96 % Paramjit Tupa DO Work Phone: [facility] 09-21-2024 20:40-0500 Systolic blood pressure 112 mm[Hg] Paramjit Tupa DO Work Phone: [facility] 09-21-2024 20:39-0500 Body height 157.48 cm Paramjit Tupa DO Work Phone: [facility] 09-21-2024 20:39-0500 Body weight 45.35 kg Paramjit Tupa DO Work Phone: [facility] 08-25-2024 15:22-0500 Body mass index (BMI) [Ratio] 17.01 kg/m2 Anum Tang PERSONAL LINES INSURANCE ADVISOR Work Phone: [facility] 08-25-2024 15:22-0500 Body temperature 97.7 [degF] Anum Tang PERSONAL LINES INSURANCE ADVISOR Work Phone: [facility] 08-25-2024 15:22-0500 Body weight 42.19 kg Anum Tang PERSONAL LINES INSURANCE ADVISOR Work Phone: [facility] 08-25-2024 15:22-0500 Diastolic blood pressure 80 mm[Hg] Anum Tang PERSONAL LINES INSURANCE ADVISOR Work Phone: [facility] 08-25-2024 15:22-0500 Heart rate 92 /min Anum Tang PERSONAL LINES INSURANCE ADVISOR Work Phone: [facility] 08-25-2024 15:22-0500 SaO2% (BldA) [Mass fraction] 99 % Anum Tang PERSONAL LINES INSURANCE ADVISOR Work Phone: [facility] 08-25-2024 15:22-0500 Systolic blood pressure 120 mm[Hg] Anum Tang PERSONAL LINES INSURANCE ADVISOR Work Phone: [facility] 08-02-2024 09:20-0500 Body mass index (BMI) [Ratio] 17.01 kg/m2 Carlos Zaragoza MD, IBCLC Work Phone: [facility] 08-02-2024 09:20-0500 Body temperature 97.81 [degF] Carlos Zaragoza MD, IBCLC Work Phone: [facility] 08-02-2024 09:20-0500 Body weight 42.19 kg Carlos Zaragoza MD, IBCLC Work Phone: [facility] 08-02-2024 09:20-0500 Diastolic blood pressure 60 mm[Hg] Carlos Zaragoza MD, IBCLC Work Phone: [facility] 08-02-2024 09:20-0500 Heart rate 91 /min Carlos Zaragoza MD, IBCLC Work Phone: [facility] 08-02-2024 09:20-0500 SaO2% (BldA) [Mass fraction] 99 % Carlos Zaragoza MD, IBCLC Work Phone: [facility] 08-02-2024 09:20-0500 Systolic blood pressure 112 mm[Hg] Carlos Zaragoza MD, IBCLC Work Phone: [facility] 06-29-2024 10:37-0400 Body height 156.21 cm DO Divina Araya Work Phone: [facility] 06-29-2024 10:37-0400 Body temperature 98 [degF] DO Divina Araya Work Phone: [facility] 06-29-2024 10:37-0400 Body weight 40.9 kg DO Divina Araya Work Phone: [facility] 06-29-2024 10:37-0400 Diastolic blood pressure 68 mm[Hg] DO Divina Araya Work Phone: [facility] 06-29-2024 10:37-0400 Heart rate 76 /min DO Divina Araya Work Phone: [facility] 06-29-2024 10:37-0400 Respiratory rate 16 /min DO Divina Araya Work Phone: [facility] 06-29-2024 10:37-0400 SaO2% (BldA) [Mass fraction] 100 % DO Divina Araya Work Phone: [facility] 06-29-2024 10:37-0400 Systolic blood pressure 104 mm[Hg] DO Divina Araya Work Phone: [facility] 04-29-2024 15:45-0400 Body height 157.5 cm Zachary Araya Work Phone: [facility] 04-29-2024 15:45-0400 Body mass index (BMI) [Ratio] 16.97 kg/m2 Zachary Araya Work Phone: [facility] 04-29-2024 15:45-0400 Body temperature 98.71 [degF] Zachary Araya DO Work Phone: [facility] 04-29-2024 15:45-0400 Body weight 42.09 kg Zachary Araya DO Work Phone: [facility] 04-29-2024 15:45-0400 Diastolic blood pressure 64 mm[Hg] Zachary Araya DO Work Phone: [facility] 04-29-2024 15:45-0400 Heart rate 83 /min Zachary Araya DO Work Phone: [facility] 04-29-2024 15:45-0400 SaO2% (BldA) [Mass fraction] 98 % Zachary Araya DO Work Phone: [facility] 04-29-2024 15:45-0400 Systolic blood pressure 116 mm[Hg] Zachary Araya DO Work Phone: [facility] 04-17-2024 13:15-0400 Diastolic blood pressure 62 mm[Hg] DO Divina Araya Work Phone: 4(942)765-309627 [place] [address] 04-17-2024 13:15-0400 Heart rate 71 /min DO Divina Araya Work Phone: 1(188)149-[address]227 [place] [address] 04-17-2024 13:15-0400 Respiratory rate 18 /min DO Divina Araya Work Phone: 3(068)[phone] [place] [address] 04-17-2024 13:15-0400 SaO2% (BldA) [Mass fraction] 97 % DO Divina Araya Work Phone: [facility] 04-17-2024 13:15-0400 Systolic blood pressure 113 mm[Hg] DO Divina Araya Work Phone: [facility] 04-17-2024 09:49-0400 Body height 154.94 cm DO Divina Araya Work Phone: [facility] 04-17-2024 09:49-0400 Body temperature 98 [degF] DO Divina Araya Work Phone: [facility] 04-17-2024 09:49-0400 Body weight 42.1 kg DO Divina Araya Work Phone: [facility] 10-13-2023 14:07-0500 Body temperature 98.4 [degF] DO Divina Araya Work Phone: [facility] 10-13-2023 14:07-0500 Diastolic blood pressure 56 mm[Hg] DO Divina Araya Work Phone: [facility] 10-13-2023 14:07-0500 Heart rate 78 /min DO Divina Araya Work Phone: [facility] 10-13-2023 14:07-0500 Respiratory rate 18 /min DO Divina Araya Work Phone: [facility] 10-13-2023 14:07-0500 SaO2% (BldA) [Mass fraction] 100 % DO Divina Araya Work Phone: [facility] 10-13-2023 14:07-0500 Systolic blood pressure 103 mm[Hg] DO Divina Araya Work Phone: [facility] 10-13-2023 11:52-0500 Body height 154.94 cm DO Divina Araya Work Phone: [facility] 10-13-2023 11:52-0500 Body weight 43 kg DO Divina Araya Work Phone: [facility] 09-28-2023 16:24-0500 Body temperature 98.1 [degF] DO Divina Araya Work Phone: [facility] 09-28-2023 16:24-0500 Diastolic blood pressure 62 mm[Hg] DO Divina Araya Work Phone: [facility] 09-28-2023 16:24-0500 Heart rate 84 /min DO Divina Araya Work Phone: [facility] 09-28-2023 16:24-0500 Respiratory rate 24 /min DO Divina Araya Work Phone: [facility] 09-28-2023 16:24-0500 SaO2% (BldA) [Mass fraction] 99 % DO Divina Araya Work Phone: [facility] 09-28-2023 16:24-0500 Systolic blood pressure 103 mm[Hg] DO Divina Dcftan Work Phone: [facility] 09-28-2023 13:15-0500 Body height 156.21 cm DO Divina Greenan Work Phone: [facility] 09-28-2023 13:15-0500 Body weight 40.75 kg DO Divina Dcftan Work Phone: [facility] 09-10-2023 09:49-0500 Diastolic blood pressure 59 mm[Hg] DO Divina Dcftan Work Phone: [facility] 09-10-2023 09:49-0500 Heart rate 65 /min DO Divina Araya Work Phone: [facility] 09-10-2023 09:49-0500 Respiratory rate 16 /min DO Divina Araya Work Phone: [facility] 09-10-2023 09:49-0500 SaO2% (BldA) [Mass fraction] 100 % DO Divina Araya Work Phone: [facility] 09-10-2023 09:49-0500 Systolic blood pressure 95 mm[Hg] DO Divina Araya Work Phone: [facility] 09-10-2023 07:42-0500 Body height 156.21 cm DO Divina Greenan Work Phone: [facility] 09-10-2023 07:42-0500 Body weight 40.82 kg DO Divina Greenan Work Phone: [facility] 06-03-2023 10:35-0400 Diastolic blood pressure 71 mm[Hg] DO Divina Dcftan Work Phone: [facility] 06-03-2023 10:35-0400 Heart rate 63 /min DO Divina Araya Work Phone: [facility] 06-03-2023 10:35-0400 Respiratory rate 16 /min DO Divina Araya Work Phone: [facility] 06-03-2023 10:35-0400 SaO2% (BldA) [Mass fraction] 100 % DO Divina Araya Work Phone: [facility] 06-03-2023 10:35-0400 Systolic blood pressure 106 mm[Hg] DO Divina Araya Work Phone: [facility] 06-03-2023 08:46-0400 Body height 157.48 cm DO Divina Araya Work Phone: [facility] 06-03-2023 08:46-0400 Body weight 48.98 kg DO Divina Araya Work Phone: [facility] 04-25-2023 15:15-0400 Body height 165.35 cm Imad Asaad Other [facility] [employer] Other 04-25-2023 15:15-0400 Body mass index (BMI) [Ratio] 17.09 kg/m2 Imad Asaad Other [facility] Other 04-25-2023 15:15-0400 Body weight 46.72 kg Imad Asaad Other [facility] [facility] Other 04-25-2023 15:15-0400 Diastolic blood pressure 68 mm[Hg] Imad Asaad Other [facility] [facility] Other 04-25-2023 15:15-0400 Systolic blood pressure 110 mm[Hg] Imad Asaad Other [facility] Other 12-29-2022 15:12-0400 Body temperature 98.9 [degF] DO Divina Araya Work Phone: [facility] 12-29-2022 15:12-0400 Diastolic blood pressure 64 mm[Hg] DO Divina Araya Work Phone: [facility] 12-29-2022 15:12-0400 Heart rate 65 /min DO Divina Araya Work Phone: [facility] 12-29-2022 15:12-0400 Respiratory rate 18 /min DO Divina Araya Work Phone: [facility] 12-29-2022 15:12-0400 SaO2% (BldA) [Mass fraction] 98 % DO Divina Araya Work Phone: [facility] 12-29-2022 15:12-0400 Systolic blood pressure 112 mm[Hg] DO Divina Araya Work Phone: [facility] 12-29-2022 12:53-0400 Body height 154.94 cm DO Divina Araya Work Phone: [facility] 12-29-2022 12:53-0400 Body weight 53.1 kg DO Divina Araya Work Phone: [facility] 11-06-2022 14:21-0500 Body temperature 98.6 [degF] Kayy Gudimella [facility] 11-06-2022 14:21-0500 Heart rate 77 /min Kayy Gudimella [facility] 11-06-2022 14:21-0500 SaO2% (BldA) [Mass fraction] 98 % Kayy Gudimella [facility] 03-09-2022 02:06-0400 Body weight 48.[address] DEMARCO ORR [facility] Comment on above: Performed By: #### AFPMAT #### [facility] [address] [address] [address] Mariela Larkin Encounters Encounter Date Encounter Type Care Provider Facility Start: 01-25-2025 End: 01-25-2025 Bamboo flowsheet Cynthia Troy PERSONAL LINES INSURANCE ADVISOR Work Phone: [facility] Start: 01-25-2025 End: 01-25-2025 Bamboo flowsheet Cynthia Troy PERSONAL LIN[employer] INSURANCE ADVISOR Work Phone: [facility] Start: 01-25-2025 End: 01-25-2025 Office outpatient visit 15 minutes Cynthia Troy PERSON[employer] INSURANCE ADVISOR Work Phone: [facility] Comment on above: Second trimester pre gnancy; 21 weeks gestation of ; Screening, , for anatomic survey; Vaginal discharge; STD exposure; Well woman exam with routine gynecological exam Start: 01-25-2025 End: 01-25-2025 Patient encounter procedure Cynthia Troy PERSONAL LINES INSURANCE ADVISOR Work Phone: [facility] Start: 12-07-2024 End: 12-07-2024 ambulatory DEMARCO KIRBY Not Available Start: 12-07-2024 End: 12-07-2024 Office outpatient visit 15 minutes Demarco Kirby DO Work Phone: [facility] Comment on above: 14 weeks gestation o f ; Second trimester Start: 12-07-2024 End: 12-07-2024 Bamboo flowsheet Demarco Kirby DO Work Phone: [facility] Start: 12-07-2024 End: 12-07-2024 Bamboo flowsheet Demarco Kirby DO Work Phone: [facility] Start: 12-03-2024 End: 12-03-2024 Clinisync Result Encounter Generic External Data Provider [facility] External [facility] Unsolicited Start: 12-03-2024 End: 12-03-2024 Clinisync Result Encounter Generic External Data Provider [facility] External Department Unsolicited Start: 11-05-2024 End: 11-05-2024 Office outpatient visit 5 minutes [facility] Kirby Nurse [facility] Comment on above: GA: 9w3d Start: 11-05-2024 End: 11-05-2024 ambulatory ZACHARY DCLOTTIE Not Available Start: 09-21-2024 End: 09-21-2024 Emergency department patient visit Paramjit Yanes DO Work Phone: [facility] Work Phone: Start: 09-03-2024 End: 09-03-2024 Emergency department patient visit Paramjit Yanes DO Work Phone: [facility] Work Phone: Start: 08-25-2024 End: 08-25-2024 Office outpatient visit 25 minutes Anum L Clyde PERSONAL [employer]ES INSURANCE ADVISOR Work Phone: [facility] Comment on above: Late period (Primary Dx); Unprotected sex Start: 08-25-2024 End: 08-25-2024 ambulatory ANUM TANG Not Available Start: 08-25-2024 End: 08-25-2024 Bamboo flowsheet Anum Naranjo Clyde PERSONAL LINES INSURANCE ADVISOR Work Phone: [facility] Start: 08-25-2024 End: 08-25-2024 Bamboo flowsheet Anum Naranjo Clyde PERSONAL LINES INSURANCE ADVISOR Work Phone: [facility] Start: 08-02-2024 End: 08-02-2024 Office outpatient visit 15 minutes Carlos Zaragoza MD, IBCLC Work Phone: [facility] Comment on above: Viral URI with cough (Primary Dx) Start: 08-02-2024 End: 08-02-2024 ambulatory CARLOS ZARAGOZA Not Available Start: 06-29-2024 ambulatory Divina Araya Facili ty:[facility] Start: 06-29-2024 Registered Recurring Paramjit Cynthia gibran DO Work Phone: [facility] Start: 06-29-2024 End: 06-29-2024 Emergency department patient visit DO Divina Araya Work Phone: [facility] Work Phone: Start: 04-29-2024 End: 04-29-2024 Office outpatient visit 25 minutes Zachary Araya DO Work Phone: [facility] Comment on above: PTSD (post-traumatic stress disorder) (CMS/HCC) (Primary Dx); Bipolar 1 disorder (CMS/HCC); Allergic urticaria; Marijuana abuse; Abdominal discomfort; Mild intermittent asthma, unspecified whether complicated (CMS/HCC) Start: 04-29-2024 End: 04-29-2024 ambulatory ZACHARY GREENAN Not Available Start: 04-29-2024 End: 04-29-2024 Bamboo flowsheet Zachary Greenan DO Work Phone: [facility] Start: 04-29-2024 End: 04-29-2024 Bamboo flowsheet Zachary Araya DO Work Phone: [facility] Start: 04-17-2024 End: 04-17-2024 Emergency department patient visit DO Divina Araya Work Phone: [facility] Work Phone: Start: 04-07-2024 End: 04-07-2024 ambulatory ZACHARY ARAYA Not Available Start: 12-20-2023 End: 12-20-2023 ambulatory ZACHARY GREENAN Not Available Start: 10-13-2023 End: 10-13-2023 Emergency department patient visit DO Divina Araya Work Phone: [facility] Work Phone: Start: 09-28-2023 End: 09-28-2023 Emergency department patient visit DO Divina Araya Work Phone: [facility] Work Phone: Start: 09-10-2023 End: 09-10-2023 Admission to same day surgery center DO Divina Araya Work Phone: [facility] Work Phone: Start: 09-10-2023 End: 09-10-2023 ambulatory DO Divina Araya Work Phone: [facility] Work Phone: Start: 07-27-2023 End: 07-27-2023 ambulatory DO Divina Araya Work Phone: [facility] Work Phone: Start: 07-27-2023 End: 07-27-2023 Patient encounter procedure DO Divina Araya Work Phone: [facility] [place] Work Phone: Start: 07-11-2023 End: 07-11-2023 ambulatory Imad Asaad Other [facility] Other Start: 07-11-2023 Telephone encounter Imad Asaad [facility] Start: 06-03-2023 End: 06-03-2023 Admission to same day surgery center DO Divina Araya Work Phone: [facility] Work Phone: Start: 06-03-2023 End: 06-03-2023 ambulatory DO Divina Araya Work Phone: [facility] Work Phone: Start: 05-08-2023 End: 05-08-2023 ambulatory DO Divina Araya Work Phone: [facility] Work Phone: Start: 05-08-2023 End: 05-08-2023 Patient encounter procedure DO Divina Araya Work Phone: [facility] [place] Work Phone: Start: 04-25-2023 End: 04-25-2023 ambulatory Imad Asaad Other [facility] Other Start: 04-25-2023 [facility] visit new patient Imad Asaad [facility] Start: 12-29-2022 End: 12-29-2022 Emergency department patient visit DO Divina Araya Work Phone: [facility] Work Phone: Start: 11-06-2022 End: 11-07-2022 ambulatory Kayy Gudimella Facility:[facility] Start: 11-06-2022 End: 11-06-2022 Patient encounter procedure Kayy Gudimella [facility] Start: 07-22-2022 End: 07-24-2022 Evaluation and management of inpatient DR MOIRA TALBERT Facility:[facility] Start: 07-09-2022 End: 07-09-[address] DEMARCO ORR Facility:[facility] Start: 07-04-2022 End: 07-04-[address] DEMARCO ORR Facility:[facility] Start: 06-21-2022 End: 06-22-[address] YENNI ROSE Facility:[facility] Start: 05-07-2022 End: 05-08-[address] DEMARCO ORR Facility:[facility] Start: 04-24-2022 End: 04-24-[address] DEMARCO ORR Facility:[facility] Start: 04-10-2022 End: 04-11-[address] DEMARCO ORR Facility:[facility] Start: 03-07-2022 End: 03-08-[address] DEMARCO ORR Facility:[facility] Start: 01-26-2022 End: 01-27-[address] DEMARCO ORR Facility:[facility] Start: 12-25-2021 End: 12-26-[address] DEMARCO ORR Facility:[facility] Procedures Date Procedure Procedure Detail Performing Clinician Start: 01-25-2025 Urnls dip stick/tablet rgnt non-auto w/o micrscp Cynthia Troy PERSONAL [employer] INSURANCE ADVISOR Work Phone: Start: 12-03-2024 BOX TEST Demarco Orr DO Work Phone: Start: 11-05-2024 Urnls dip stick/tablet rgnt non-auto w/o micrscp Demarco Orr DO Work Phone: Start: 09-21-2024 Plain X-ray of right shoulder Paramjit Gallegos pa DO Work Phone: Start: 08-25-2024 Gonadotropin chorionic quantitative Lamar Tang PERSONAL [employer]ES INSURANCE ADVISOR Work Phone: Start: 08-25-2024 Urine test visual color cmprsn meths Anum Tang PERSONAL [employer]ES INSURANCE ADVISOR Work Phone: Start: 10-13-2023 Plain chest X-ray DO Divina [...] of Products of Conception, External Approach DR DEMARCO ORR Start: 07-23-2022 Division of Female Perineum, External Approach DR DEMARCO ORR Start: 07-23-2022 Repair Perineum Muscle, Open Approach DR DEMARCO ORR Plan of Treatment Date Care Activity Detail Author Start: 05-10-2025 Influenza vaccination Influenz a Vaccine (Season Ended) [facility] Start: 02-22-2025 End: 02-22-2025 Patient encounter procedure 02/22/2025 1:50 PM EDT Routine [facility] [address] [place] [id number] Demarco Orr, DO [address] [place] [address] [facility] Start: 01-25-2025 End: 02-25-2025 Alpha fetoprotein, maternal Alpha fetoprotein, maternal Lab Routine Second trimester 21 weeks gestation of Expected: 01/25/2025 (Approximate), Expires: 02/25/2025 [facility] Comment on above: Expected: 01/25/2025 (Approximate), Expires: 02/25/2025 Start: 01-25-2025 End: 04-27-2025 US for US OB 14+ weeks anatomy scan Imaging Routine Screening, , for anatomic survey Expected: 01/25/2025, Expires: 04/27/2025 [facility] Comment on above: Expected: 01/25/2025 , Expires: 04/27/2025 Start: 12-07-2024 End: 12-07-2024 Patient encounter procedure 12/07/2024 3:50 PM EDT Routine [facility] [address] [place] [address] Demarco Orr, DO [address] [place] [address] [facility] Start: 12-03-2024 End: 12-03-2024 Patient encounter procedure 12/03/2024 10:10 AM EDT Routine [facility] [address] [place] [id number] Demarco Orr, DO [address] [place] [address] [facility] Start: 11-09-2024 End: 11-09-2024 Patient encounter procedure 11/09/2024 1:20 PM EST Office Visit [facility] [address] [place] [id number] Cira Chairez PA [address] [place] [address] [facility] Start: 11-05-2024 End: 11-05-2025 ABO/Rh ABO/Rh Lab Routine Missed menses , unspecified gestational age Expected: 11/05/2024 (Approximate), Expires: 11/05/2025 [facility] Comment on above: Expected: 11/05/2024 (Approximate), Expires: 11/05/2025 Start: 11-05-2024 End: 11-05-2025 Blood type and Indirect antibody screen panel - Blood Type and screen Lab Routine Missed menses , unspecified gestational age Expected: 11/05/2024 (Approximate), Expires: 11/05/2025 [facility] Comment on above: Expected: 11/05/2024 (Approximate), Expires: 11/05/2025 Start: 11-05-2024 End: 11-05-2025 Drugs of abuse panel - Urine by Screen method Rapid drug screen, urine Lab Routine , unspecified gestational age Encounter for supervision of normal first in first trimester Expected: 11/05/2024 (Approximate), Expires: 11/05/2025 [facility] Comment on above: Expected: 11/05/2024 (Approximate), Expires: 11/05/2025 Start: 11-05-2024 End: 11-05-2025 US Pelvis transvaginal [facility] Work Phone: Comment on above: Expected: 11/05/2024 , Expires: 11/05/2025 Start: 05-10-2024 Influenza vaccination Influenza Vacc ine (#1) [facility] Start: 04-29-2024 End: 04-29-2024 Patient encounter procedure 04/29/2024 4:00 PM EDT Office Visit [facility] [address] [place] [address] Zachary Araya DO [address] [place] [address] Arrived [facility] Comment on above: Arrived Start: 04-29-2024 End: 04-29-2025 Cotton linters, untreated IgE Cotton linters, untreated IgE Lab Routine Allergic urticaria Expected: 04/29/2024 (Approximate), Expires: 04/29/2025 [facility] Comment on above: Expected: 04/29/2024 (Approximate), Expires: 04/29/2025 Start: 04-29-2024 End: 04-29-2025 Dog dander IgE Dog dander IgE Lab Routine Allergic urticaria Expected: 04/29/2024 (Approximate), Expires: 04/29/2025 [facility] Comment on above: Expected: 04/29/2024 (Approximate), Expires: 04/29/2025 Start: 04-29-2024 End: 04-29-2025 Food allergy profile Food allergy profile Lab Routine Allergic urticaria Expected: 04/29/2024 (Approximate), Expires: 04/29/2025 [facility] Work Phone: Comment on above: Expected: 04/29/2024 (Approximate), Expires: 04/29/2025 Start: 04-29-2024 End: 04-29-2025 Nfel D 2 cat serum albumin IgE Nfel D 2 cat serum albumin IgE Lab Routine Allergic urticaria Expected: 04/29/2024 (Approximate), Expires: 04/29/2025 [facility] Comment on above: Expected: 04/29/2024 (Approximate), Expires: 04/29/2025 Start: 10-13-2023 [facility] Start: 09-28-2023 Bacteria identified in Urine by Culture [facility] Start: 09-10-2023 [facility] Start: 06-03-2023 [facility] Start: 05-08-2023 Ova and Parasite Concentrate Exam Ova and Parasite Concentrate Exam [facility] Start: 12-29-2022 Bacteria identified in Urine by Culture [facility] aPTT in Platelet poo r plasma by Coagulation assay [facility] Bacteria identified in Urine by Culture Urine culture Microbiology Routine Missed menses Ordered: 11/05/2024 [facility] Comment on above: Ordered: 11/05/2024 Calprotectin [Mass/m ass] in Stool [facility] CBC W Auto Different ial panel - Blood CBC and differential Lab Routine Missed menses , unspecified gestational age Ordered: 11/05/2024 [facility] Comment on above: Ordered: 11/05/2024 CHLAMYDIA TRACHOMATI S (GENITO/STI) CHLAMYDIA TRACHOMATIS (GENITO/STI) Lab Routine Vaginal discharge STD exposure Ordered: 01/25/2025 [facility] Comment on above: Ordered: 01/25/2025 Cytology Cervical or vaginal smear or scraping study Pap Smear Pathology and Cytology Routine Well woman exam with routine gynecological exam Ordered: 01/25/2025 [facility] Work Phone: Comment on above: Ordered: 01/25/2025 Elastase.pancreatic [Mass/mass] in Stool [facility] Fibrin D-dimer [Presence] in Platelet poor plasma by Latex agglutination [facility] Hemoglobin A1c/Hemoglobin.total in Blood Hemoglobin A1c Lab Routine Missed menses , unspecified gestational age Ordered: 11/05/2024 [facility] Comment on above: Ordered: 11/05/2024 Hepatitis B virus surface Ag [Presence] in Serum or Plasma by Immunoassay Hepatitis B surface antigen Lab Routine Missed menses , unspecified gestational age Ordered: 11/05/2024 [facility] Comment on above: Ordered: 11/05/2024 Hepatitis C virus Ab [Presence] in Serum or Plasma by Immunoassay Hepatitis C antibody Lab Routine Missed menses , unspecified gestational age Ordered: 11/05/2024 [facility] Comment on above: Ordered: 11/05/2024 HIV-1/HIV-2 antigen/antibody combination immunoassay HIV-1 and HIV-2 antibodies Lab Routine Missed menses , unspecified gestational age Ordered: 11/05/2024 [facility] Comment on above: Ordered: 11/05/2024 INR in Platelet poor plasma by Coagulation assay [facility] Neisseria gonorrhoea e DNA [Presence] in Unspecified specimen by OMAIRA with probe detection Neisseria gonorrhea DNA probe, direct Lab Routine Vaginal discharge STD exposure Ordered: 01/25/2025 [facility] Comment on above: Ordered: 01/25/2025 Ova and parasites identified in Unspecified specimen by Light microscopy [facility] Patient Education [facility] Work Phone: Patient referral [facility] Work Phone: Prothrombin time (PT) [facility] Reagin Ab [Presence] in Serum by RPR RPR Lab Routine Missed menses , unspecified gestational age Ordered: 11/05/2024 [facility] Comment on above: Ordered: 11/05/2024 Rubella antibody, IgG Rubella an tibody, IgG Lab Routine Missed menses , unspecified gestational age Ordered: 11/05/2024 [facility] Comment on above: Ordered: 11/05/2024 SURESWAB(R) ADVANCED VAGINITIS PLUS, TMA SURESWAB(R) ADVANCED VAGINITIS PLUS, TMA Pathology and Cytology Routine Vaginal discharge STD exposure Ordered: 01/25/2025 [facility] Comment on above: Ordered: 01/25/2025 Immunizations Immunization Date Immunization Notes Care Provider [facility] 06-02-2020 Human Papillomavirus 9-valent vaccine Zachary Araya DO Work Phone: [facility] 06-02-2020 meningococcal oligosaccharide (groups A, C, Y and W-135) diphtheria toxoid conjugate vaccine (MCV4O) Zachary Araya DO Work Phone: [facility] 06-02-2015 human papilloma viru s vaccine, quadrivalent Zachary Araya DO Work Phone: [facility] 06-02-2015 influenza, seasonal, injectable Zachary Araya DO Work Phone: [facility] 06-02-2015 meningococcal polysaccharide (groups A, C, Y and W-135) diphtheria toxoid conjugate vaccine (MCV4P) Zachary Araya DO Work Phone: [facility] 06-02-2015 tetanus toxoid, redu ekaterina diphtheria toxoid, and acellular pertussis vaccine, adsorbed Zachary Araya DO Work Phone: [facility] 06-02-2015 influenza virus vaccine, unspecified formulation Zachary Araya DO Work Phone: [facility] 03-19-2007 hepatitis A vaccine, unspecified formulation Zachary Araya DO Work Phone: [facility] 05-07-2006 diphtheria, tetanus toxoids and acellular pertussis vaccine, unspecified formulation Zachary Araya DO Work Phone: [facility] 05-07-2006 hepatitis A vaccine, unspecified formulation Zachary Araya DO Work Phone: [facility] 05-07-2006 measles, mumps and rubella virus vaccine Zachary Araya DO Work Phone: [facility] 05-07-2006 pneumococcal conjuga te vaccine, 7 valent Zachary Araya DO Work Phone: [facility] 05-07-2006 poliovirus vaccine, inactivated Zachary Araya DO Work Phone: [facility] 05-07-2006 varicella virus vaccine Rhea Araya DO Work Phone: [facility] 07-12-2003 diphtheria, tetanus toxoids and acellular pertussis vaccine Zachary Araya DO Work Phone: [facility] 07-12-2003 haemophilus influenz ae type b vaccine, PRP-T conjugate Zachary Araya DO Work Phone: [facility] 07-12-2003 measles, mumps and rubella virus vaccine Zachary Araya DO Work Phone: [facility] 07-12-2003 pneumococcal conjuga te vaccine, 7 valent Zachary Araya DO Work Phone: [facility] 07-12-2003 varicella virus vaccine Rhea Araya DO Work Phone: [facility] 2002 diphtheria, tetanus toxoids and acellular pertussis vaccine, unspecified formulation Zachary Araya DO Work Phone: [facility] 2002 haemophilus influenz ae type b conjugate and Hepatitis B vaccine Zachary Araya DO Work Phone: [facility] 2002 poliovirus vaccine, inactivated Zachary Araya DO Work Phone: [facility] 2002 diphtheria, tetanus toxoids and acellular pertussis vaccine, unspecified formulation Zachary Araya DO Work Phone: [facility] 2002 haemophilus influenz ae type b vaccine, conjugate unspecified formulation Zachary Araya DO Work Phone: [facility] 2002 pneumococcal conjuga te vaccine, 7 valent Zachary Araya DO Work Phone: [facility] 2002 poliovirus vaccine, inactivated Zachary Araya DO Work Phone: [facility] 2002 diphtheria, tetanus toxoids and acellular pertussis vaccine, unspecified formulation Zachary Araya DO Work Phone: [facility] 2002 haemophilus influenz ae type b conjugate and Hepatitis B vaccine Zachary Araya DO Work Phone: [facility] 2002 pneumococcal conjuga te vaccine, 7 valent Zachary Araya DO Work Phone: [facility] 2002 poliovirus vaccine, inactivated Zachary Araya DO Work Phone: [facility] 2002 hepatitis B vaccine, pediatric or pediatric/adolescent dosage Zachary Araya DO Work Phone: [facility] NEGATED: Highlighted row has not occurred!11-06-2022 influenza virus vaccine, unspecified formulation Kayy dimella [facility] NEGATED: Highlighted row has not occurred!11-06-2022 SARS-CoV-2 mRNA (tozinameran 5y-11y) vaccine Kayy Gudimella [facility] Payers Date Payer Category Payer Self-pay [id number] 2023 Medicaid [employer] [place] [id number] 2023-Present [address] [place] [id number] 2022 Medicaid (Managed Care) 1.2. [id number] 2013 Unknown HCAP/HFA/FAP Active [id number] 2002 Unknown [id number] 2.16.840.1.565977.3.579.2.5 93 2002 Unknown [id number] 2.16.840.1.355322.3.579.2.5 93 2002 Unknown [id number] 2.16.840.1.759050.3.579.2.5 93 2002 Unknown [id number] 2.16.840.1.276306.3.579.2.5 93 2002 Unknown [id number] 2.16.840.1.934810.3.579.2.5 93 2002 Unknown [id number] 2.16.840.1.499382.3.579.2.5 93 2002 Unknown [id number] 2.16.840.1.508733.3.579.2.5 93 2002 Unknown [id number] 2.16.840.1.770106.3.579.2.5 93 2002 Unknown [id number] 2.16.840.1.254100.3.579.2.5 93 2002 Unknown [id number] 2.16.840.1.370997.3.579.2.5 93 2002 Unknown [id number] 2.16.840.1.678582.3.579.2.7 27 2002 Unknown [id number] 2.16.840.1.426752.3.579.2.1 259 2002 Unknown [id number] 2.16.840.1.669974.3.579.2.1 259 2002 Unknown [id number] 2.16.840.1.504574.3.579.2.1 259 2002 Unknown [id number] 2.16.840.1.510185.3.579.2.1 259 2002 Unknown [id number] 2.16.840.1.933301.3.579.2.1 259 2002 Unknown [id number] 2.16.840.1.907941.3.579.2.1 259 2002 Unknown [id number] 2.16.840.1.591708.3.579.2.1 259 2002 Unknown [id number] 2.16.840.1.926149.3.579.2.1 259 2002 Unknown [id number] 2.16.840.1.564828.3.579.2.1 259 1959 Unknown [id number] Unknown [id number] 2.16.840.1.135229.3.579.2.5 93 Unknown [id number] 2.16.840.1.312546.3.579.2.5 31 Unknown [id number] 2.16.840.1.191242.3.579.2.5 31 Unknown [id number] 2.16.840.1.415527.3.579.2.5 31 Unknown [id number] 2.16.840.1.246277.3.579.2.5 31 Unknown [id number] 2.16.840.1.481523.3.579.2.5 31 Unknown [id number] 2.16.840.1.541193.3.579.2.5 31 Social History Date Type Detail Facility Start: 11-06-2022 End: 04-07-2023 Tobacco smoking status Never smoked tobacco (finding) [facility] Tobacco smoking status Never [facility] Start: 04-29-2024 End: 01-06-2025 Sex Assigned At Female [facility] Start: 2002 Sex Assigned At Female [facility] Start: 09-10-2023 End: 09-21-2024 Tobacco smoking status NHIS Smoker (finding) [facility] Start: 04-07-2023 Tobacco use and exposure Smokeless tobacco non-user [facility] Start: 08-02-2024 End: 12-07-2024 Alcoholic beverage intake Lifetime non-drinker (finding) [facility] Start: 04-29-2024 End: 01-06-2025 History of Social function [facility] Work Phone: Start: 04-07-2023 Alcohol Comment caffeine: occasional [facility] Start: 2002 Sex assigned at Not on file [facility] Start: 09-21-2024 Sex Female (finding) [facility] Start: 09-14-2024 [facility] NEGATED: Highlighted row [facility] Goals Date Patient Goal Desired Activity /State Functional Status Date Assessment Result Facility 11-06-2022 Functional Status N/A [facility] Clinical Notes 11-06-2022 to 01-25-2025 Eileen Koehler MA - 01/25/2025 10:10 AM Ulises Batista LPN - 12/07/2024 3:50 PM Zulma Everett LPN - 11/05/2024 1:00 PM Davey Tang NP - 08/25/2024 3:10 PM EST Note Date & Type Note Facility 01-25-2025 History of Presen t illness Narrative Reason for Appointment: Patient ID: Dawn Cuellar is a 24 y.o. female who presents for Routine Visit Patient presents today for Return OB appointment. MEDICATIONS Current Outpatient Medications Medication Instructions albuterol HFA 90 mcg/act inhaler 2 puffs, Inhalation, Every 4 hours PRN [id number] ( 1 + IRON PO) 1 tablet, Daily ALLERGIES Allergies Allergen Reactions Tilactase Diarrhea Amoxicillin Unknown Milk (Cow) Unknown PROBLEMS Active Ambulatory Problems Diagnosis Date Noted Anxiety 04/09/2023 Asthma 04/09/2023 Gastroesophageal reflux disease without esophagitis 04/09/2023 Left wrist pain 04/09/2023 Multiple joint pain 04/09/2023 [place] disorder[place] 12/20/2023 [place] 12/20/2023 Marijuana abuse 04/28/2024 Resolved Ambulatory Problems Diagnosis Date Noted ADHD (attention deficit hyperactivity disorder) [place] 12/20/2023 Past Medical History: Diagnosis Date Acid reflux Allergies Episodic tension type headache Fractured nose HISTORY PAST MEDICAL HISTORY SOCIAL HISTORY Past Medical History: Diagnosis Date Acid reflux ADHD (attention deficit hyperactivity disorder) [place] 12/20/2023 Allergies Asthma Episodic tension type headache [...] appearance. She is well-developed. Genitourinary: Vulva normal. Cardiovascular: Rate and Rhythm: Normal rate and [...] nursing note reviewed. Exam conducted with a hammerer tab present. Vitals: Estimated body mass index is 18.68 kg/m as calculated from the following: Height as [...] annual exam/routine obstetrics appointment. Patient is currently 21w0d . Patient states she is doing well but has complaints of nausea in the morning. Pap and cultures was obtained without difficulty and patient was given orders for anatomy scan and msAFP to be obtained. Orders Placed This Encounter Procedures US OB 14+ weeks anatomy scan Alpha fetoprotein, maternal CHLAMYDIA TRACHOMATIS (GENITO/STI) Neisseria gonorrhea DNA probe, direct POCT urinalysis dipstick manually resulted Follow Up: Patient is to schedule annual exam for next year and return to office in 4 weeks for OB appointment. Documented by Eileen Koehler MA on behalf of: Cynthia Troy NP documented in this encounter [facility] 12-07-2024 History of Presen t illness Narrative Reason for Appointment: Patient ID: Dawn Cuellar is a 24 y.o. female who presents for Routine Visit Patient presents today for Return OB appointment. MEDICATIONS Current Outpatient Medications Medication Instructions albuterol HFA 90 mcg/act inhaler 2 puffs, Inhalation, Every 4 hours PRN ALLERGIES Allergies Allergen Reactions Tilactase Diarrhea Amoxicillin Unknown Milk (Cow) Unknown PROBLEMS Active Ambulatory Problems Diagnosis Date Noted Anxiety 04/09/2023 Asthma 04/09/2023 Gastroesophageal reflux disease without esophagitis 04/09/2023 Left wrist pain 04/09/2023 Multiple joint pain 04/09/2023 PTSD (post-traumatic stress disorder) [place] 12/20/2023 depression [place] 12/20/2023 Marijuana abuse 04/28/2024 Resolved Ambulatory Problems Diagnosis Date Noted ADHD (attention deficit hyperactivity disorder) [place] 12/20/2023 Past Medical History: Diagnosis Date Acid reflux Allergies Episodic tension type headache Fractured nose HISTORY PAST MEDICAL HISTORY SOCIAL HISTORY Past Medical History: Diagnosis Date Acid reflux ADHD (attention deficit hyperactivity disorder) [place] 12/20/2023 Allergies Asthma Episodic tension type headache [...] SYSTEMS Review of Systems: Review of Systems All other systems reviewed and are negative. OBJECTIVE Objective: Physical Exam Constitutional: Appearance: Normal appearance. She is well-developed. Cardiovascular: Rate and Rhythm: Normal rate and [...] nursing note reviewed. Exam conducted with a hammerer tab present. Vitals: Estimated body mass index is 18.68 kg/m as calculated from the following: Height as of 04/29/24: 5' 2 . Weight as of this encounter: 102 lb 1.9 oz. BP: 110/68 Patient's last menstrual period was 08/31/2024. ASSESSMENT & PLAN ICD-10-CM 1. 14 weeks gestation of Z3A.14 CANCELED: POCT urinalysis dipstick manually resulted 2. Second trimester Z34.92 CANCELED: POCT urinalysis dipstick manually resulted New OB: Patient presents today for 1st time obstetrics appointment with provider. Patient is currently 14w0d . Patients history has been reviewed in great detail including any potential risks. Patient stated she currently has no complaints. Expectations throughout regarding labs, ultrasounds, and appointments have been discussed with the patient in detail. It was reiterated that the patient is to drink 6-8 glasses of water a day, eat 6 small meals a day, do not consume raw or undercooked meat, and stay away from [facility]. Patient has been consulted regarding any further do's and don'ts of . Patient voiced understanding and all questions and concerns were answered. Follow Up: Patient is to return in 4 weeks for routine OB appointment. Documented by Jennifer Batista LPN on behalf of: Demarco Orr DO documented in this encounter [facility] 11-05-2024 History of Presen t illness Narrative Reason for Appointment: Patient ID: Dawn Cuellar is a 24 y.o. female who presents for Amenorrhea Patient presents today for a Nurse OB Intake appointment. Patient is 9w3d with a Estimated Date of Delivery: 06/07/25 OB History Para Term AB Living 3 1 1 2 SAB IAB Ectopic Multiple Live Births # Outcome Date GA Lbr Mark/2nd Weight Sex Type Anes PTL Lv 3 Current 2 07/22/22 M Vag-Spont 1 Term 06/02/21 39w0d M Vag-Spont EPI Current Medications: has a current medication list which includes the following prescription(s): albuterol hfa. Medical History: Active Ambulatory Problems Diagnosis Date Noted Anxiety 04/09/2023 Asthma [facility] 04/09/2023 Gastroesophageal reflux disease without esophagitis 04/09/2023 Left wrist pain 04/09/2023 Multiple joint pain 04/09/2023 PTSD (post-traumatic stress disorder) [place] 12/20/2023 depression [place] 12/20/2023 Marijuana abuse 04/28/2024 Resolved Ambulatory Problems Diagnosis Date Noted ADHD (attention deficit hyperactivity disorder) ([facility] 12/20/2023 Past Medical History: Diagnosis Date Acid reflux Allergies Episodic tension type headache Fractured nose Family History Problem Relation Name Age of Onset Heart disease Sister Hypertension Maternal Grandmother Heart attack Paternal Grandfather Social History Tobacco Use Smoking status: Never Smokeless tobacco: Never Vaping Use Vaping status: Never Used Substance Use Topics Alcohol use: Never Comment: caffeine: occasional Drug use: Never Past Surgical History: Procedure Laterality Date FINGER SURGERY Right 06/28/2015 TOE SURGERY fractured toe - 2009 2011 Allergies Allergen Reactions Tilactase Diarrhea Amoxicillin Unknown Milk (Cow) Unknown Vitals: Estimated body mass index is 17.96 kg/m as calculated from the following: Height as of 04/29/24: 5' 2 . Weight as of this encounter: 98 lb 3.2 oz. BP: 100/60 Patient's last menstrual period was 08/31/2024. Assessment/Plan Diagnoses and all orders for this visit: Missed menses - US OB transvaginal; Future - Type and screen; Future - ABO/Rh; Future - CBC and differential - Hemoglobin A1c - RPR - Rubella antibody, IgG - Hepatitis B surface antigen - Hepatitis C antibody - HIV-1 and HIV-2 antibodies - Urine culture - POCT , urine manually resulted - POCT urinalysis dipstick manually resulted , unspecified gestational age - Type and screen; Future - ABO/Rh; Future - CBC and differential - Hemoglobin A1c - RPR - Rubella antibody, IgG - Hepatitis B surface antigen - Hepatitis C antibody - HIV-1 and HIV-2 antibodies - Rapid drug screen, urine; Future Encounter for supervision of normal first in first trimester - Rapid drug screen, urine; Future Nurse Note: OB Intake: Patient presents today for first OB visit. Patients history has been reviewed in great detail including any potential risks. Patient signed consent forms and patient desires testing in both trimesters. Patient currently has no complaints and has been advised to drink 6-8 glasses of water a day, eat no raw or undercooked meat, and stay away from [facility]. Patient has also been advised to not change litter boxes and eat 6 small meals a day. Patient has been consulted regarding the do's and don'ts of . Patient was given labs and all questions and concerns were answered. Patient was given Malone labs to have completed and to schedule a follow up appointment for a Breast lump she has felt. Follow Up: Patient is to return in 4 weeks for routine OB appointment. Follow Up: Patient is to have labs drawn at directed and return to office for initial OB appointment with provider. Patient may call office as needed with any concerns or questions. Nurse Visit Completed by: Cee Everett LPN documented in this encounter [facility] 08-25-2024 History of Presen t illness Narrative Images from the original note were not included. [address] , [address] [facility], [address] P: [phone] F: [phone] HPI Historian of HPI: patient Dawn Cuellar is a 24 y.o. female who presents today to the Urgent Care with the following complaints and denials which have been present for 2 day(s) C/O Denies Symptom Comments [] [x] Dysuria [] [x] hematuria [x] [] Urinary frequency [] [x] Urinary incontinence [] [x] Urinary urgency [] [x] Genital itching [] [x] Genital discharge [] [x] Back pain [] [x] Abd pain Additional Comments: pt has not taken any OTC medications Pt stated she has been having negative and positive tests. Pt stated she had a positive test 2 days ago. LMP around at the [address] Pt sees Dr. Orr for OBGYN. IH Testing: An In-House UA has been obtained ROS A complete system ROS was performed and negative aside from the pertinent positives noted in the HPI and PE. PHYSICAL EXAM Examination General Examination: General Examination: alert, orients, normal affect, well appearing, in no acute distress, well developed, well nourished Head: normocephalic, atraumatic Eyes: sclera non-icteric Neck/Thyroid: trachea midline Skin: no rashes Heart: no murmurs, regular rate and rhythm, S1, S2 normal Lungs: clear to auscultation bilaterally Extremities: no edema, no cyanosis Neurologic: nonfocal Psych: alert, oriented, cognitive function intact, cooperative with exam TREATMENT PLAN 1. Unprotected sex In-house HCG testing negative. - POCT , urine manually resulted 2. Late period (Primary) Possible etiologies discussed. Patient is unsure how late her period is. She states since having her children, her periods are unpredictable. Will send for Serum Hcg and call with results when available. Follow-up with [employer] - hCG, quantitative, documented in this encounter [facility] 08-02-2024 History of Presen t illness Narrative Images from the original note were not included. [address] , [address] [facility], [address] P: [phone] F: [phone] HPI Historian of HPI: patient Dawn Cuellar is a 24 y.o. female who presents today to the Urgent Care with the following complaints and denials which have been present for 4 day(s) pt denies any V/D/N at this time. Pt states she was exposed to the norovirus. Pt would like to see a provider before any testing. C/O Denies Symptom Comments [x] [] Runny Nose [] [x] Difficulty Swallowing [] [x] Sore Throat [x] [] Cough Wet productive cough, slight SOB [] [x] Ear Pain [] [x] Fever [x] [] Chills Chills on and off [] [x] Nasal Congestion [] [x] Myalgia [] [x] Sinus Pain [] [x] Sinus Pressure Additional Comments: pt has not taken any OTC medications ROS A complete system ROS was performed and negative aside from the pertinent positives noted in the HPI and PE. OBJECTIVE: BP 112/60 (BP Location: Left arm, Patient Position: Sitting, BP Cuff Size: Small adult) Pulse 91 Temp 97.8 F Wt 93 lb LMP (LMP Unknown) SpO2 99% BMI 17.01 kg/m Physical Exam Constitutional: General: She is not in acute distress. Appearance: Normal appearance. HENT: Head: Normocephalic and atraumatic. Right Ear: Tympanic membrane, ear canal and external ear normal. Left Ear: Tympanic membrane, ear canal and external ear normal. Nose: Congestion and rhinorrhea present. Mouth/Throat: Mouth: Mucous membranes are moist. Pharynx: Oropharynx is clear. No oropharyngeal exudate or posterior oropharyngeal erythema. Eyes: General: Right eye: No discharge. Left eye: No discharge. Conjunctiva/sclera: Conjunctivae normal. Cardiovascular: Rate and Rhythm: Normal rate and regular rhythm. Heart sounds: Normal heart sounds. No murmur heard. No friction rub. No gallop. Pulmonary: Effort: Pulmonary effort is normal. No respiratory distress. Breath sounds: Normal breath sounds. No wheezing, rhonchi or rales. Abdominal: General: Abdomen is flat. Palpations: Abdomen is soft. Tenderness: There is no abdominal tenderness. Musculoskeletal: General: Normal range of motion. Cervical back: Normal range of motion and neck supple. Lymphadenopathy: Cervical: No cervical adenopathy. Skin: General: Skin is warm and dry. Capillary Refill: Capillary refill takes less than 2 seconds. Findings: No rash. Neurological: General: No focal deficit present. Mental Status: She is alert. Lab Results No visits with results within 1 Day(s) from this visit. Latest known visit with results is: [facility] on 07/24/2022 Component Date Value Ref Range Status WBC 07/24/2022 13.9 (HH) 4.0 - 11.0 Final RED BLOOD COUNT 07/24/2022 3.70 (LL) 4.20 - 5.40 Final HGB 07/24/2022 10.0 (LL) 12.0 - 16.0 Final HEMATOCRIT 07/24/2022 30.4 (LL) 36.0 - 48.0 Final MCV 07/24/2022 82.2 81.0 - 99.0 Final MEAN CORPUSCULAR HEMOGLOBIN 07/24/2022 27.0 26.7 - 34.0 Final MEAN CORPUSCULAR HGB CONC 07/24/2022 32.9 29.9 - 35.2 Final RED CELL DISTRI WIDTH 07/24/2022 16.8 (HH) 11.0 - 15.0 Final PLATELET 07/24/2022 243 150 - 450 Final MEAN PLT VOL 07/24/2022 9.4 (LL) 9.5 - 13.5 Final NEUT% 07/24/2022 69.0 43.0 - 75.0 Final LYMPH % 07/24/2022 22.4 20.5 - 60.0 Final MONO% 07/24/2022 5.1 1.7 - 12.0 Final EOSINOPHILS % (AUTO) 07/24/2022 2.2 0.9 - 7.0 Final BAS0 % 07/24/2022 0.4 0.2 - 2.0 Final IG % 07/24/2022 0.9 (HH) 0.0 - 0.5 Final NEUT# 07/24/2022 9.6 (HH) 1.4 - 6.5 Final LYMPH # 07/24/2022 3.1 1.2 - 3.8 Final MONO# 07/24/2022 0.7 0.3 - 0.8 Final EOSINOPHILS # (AUTO) 07/24/2022 0.3 0.0 - 0.7 Final BASO# 07/24/2022 0.1 0.0 - 0.1 Final IG # 07/24/2022 0.13 (HH) 0.00 - 0.03 Final MANUAL DIFF REQ 07/24/2022 NO Final PERFORMING LAB: 07/24/2022 see note Final [facility] - [facility] - [address] [place] [address] ,Ext. [phone] ASSESSMENT & PLAN: Assessment & Plan Viral URI with cough Symptoms and time course consistent with viral URI. Reviewed [id number] symptomatic treatments, including NSAIDs/acetaminophen for fever and myalgias, decongestants, nasal sprays and ample hydration. Advised patient return to clinic if symptoms suddenly worsen or do not improve after 7-10 days of symptoms. Provided reassurance. Carlos Zaragoza MD, IBCLC [facility] documented in this encounter [facility] 04-29-2024 History of Presen t illness Narrative Images from the original note were not included. SUBJECTIVE: Dawn Cuellar is a 24 y.o. female presents with chief complaint of No chief complaint on file. Pt presents to discuss an increase in her anxiety, possibility of undiagnosed bipolar, would like a referral to an production drilling machine operator to test to see if she might be allergic to some types of foods, and to do a follow up for her ER visit on 04-17-24. This was due to stomach issues with the possibility of either a stomach bug or the flu. Review of Systems: Review of Systems Problem List: Patient Active Problem List Diagnosis Anxiety Asthma ([facility]) Gastroesophageal reflux disease without esophagitis Left wrist pain Multiple joint pain PTSD (post-traumatic stress disorder) ([facility]) depression ([facility]) Marijuana abuse Past Medical History: Past Medical History: Diagnosis Date Acid reflux ADHD (attention deficit hyperactivity disorder) ([facility]) 12/20/2023 Allergies Asthma ([facility]) Episodic tension type headache Fractured nose Family History: Family History Problem Relation Name Age of Onset Heart disease Sister Hypertension Maternal Grandmother Heart attack Paternal Grandfather Allergies: Allergies Allergen Reactions Tilactase Diarrhea Amoxicillin Unknown Milk (Cow) Unknown Surgical History: Past Surgical History: Procedure Laterality Date FINGER SURGERY Right 06/28/2015 TOE SURGERY fractured toe - 2009 2011 Social History: Social Determinants of Health Tobacco Use: Low Risk (04/07/2024) Patient History Smoking Tobacco Use: Never Smokeless Tobacco Use: Never Passive Exposure: Not on file Alcohol Use: Not on file Financial Resource Strain: Not on file Food Insecurity: Not on file Transportation Needs: Not on file Physical Activity: Not on file Stress: Not on file Social Connections: Not on file Intimate Partner Violence: Not on file Depression: Not at risk (04/07/2024) PHQ-2 PHQ-2 Score: 0 Housing Stability: Not on file Health Literacy: Not on file OBJECTIVE: Visit Vitals Ht 5' 2 BMI 16.28 kg/m Smoking Status Never BSA 1.33 m Physical Exam Constitutional: Appearance: Normal appearance. HENT: Head: Normocephalic and atraumatic. Eyes: Extraocular Movements: Extraocular movements intact. Conjunctiva/sclera: Conjunctivae normal. Pupils: Pupils are equal, round, and reactive to light. Cardiovascular: Rate and Rhythm: Normal rate and regular rhythm. Pulmonary: Effort: Pulmonary effort is normal. Breath sounds: Normal breath sounds. Abdominal: General: Bowel sounds are normal. Palpations: Abdomen is soft. Musculoskeletal: General: Normal range of motion. Skin: General: Skin is warm and dry. Neurological: General: No focal deficit present. Mental Status: She is alert and oriented to person, place, and time. Psychiatric: Mood and Affect: Mood normal. Thought Content: Thought content normal. Judgment: Judgment normal. No results found for this or any previous visit (from the past 672 hour(s)). ASSESSMENT AND PLAN: Assessment/Plan Diagnoses and all orders for this visit: PTSD (post-traumatic stress disorder) ([facility]/HCC) Patient advised to return if symptoms worsen and/or persist despite treatment. - citalopram (CeleXA) 10 MG tablet; Take 1 tablet (10 mg) by mouth Daily Bipolar 1 disorder (CMS/HCC) - ARIPiprazole (Abilify) 5 MG tablet; Take 1 tablet (5 mg) by mouth at bedtime Allergic urticaria - Food allergy profile; Future - Cotton linters, untreated IgE; Future - Nfel D 2 cat serum albumin IgE; Future - Dog dander IgE; Future - fluticasone (Flonase) 50 MCG/ACT nasal spray; Administer 2 sprays into each nostril Daily Shake gently. Before first use, prime pump. After use, clean tip and replace cap. Marijuana abuse Did discuss importance of quitting and that this could be exacerbating most of her problems discussed today Abdominal discomfort Reviewed ER notes including labs and imaging. Pt does seem to be improved. Advised to continue current meds and rtc if problem recurs Mild intermittent asthma, unspecified whether complicated ([facility]) Problem is stable, will continue with current treatment plan. Call or return to clinic if any changes occur Updated Medications: I have reviewed and reconciled the history and medication list with the patient today. Current Outpatient Medications: albuterol HFA 90 mcg/act inhaler, Inhale 2 puffs every 4 (four) hours if needed for wheezing or shortness of breath, Disp: 18 g, Rfl: 3 hydrOXYzine HCl (Atarax) 25 MG tablet, Take 1 tablet (25 mg) by mouth 3 (three) times a day as needed for itching, Disp: 30 tablet, Rfl: 0 ibuprofen 600 MG tablet, Take 1 tablet (600 mg) by mouth in the morning and 1 tablet (600 mg) in the evening and 1 tablet (600 mg) before bedtime., Disp: 40 tablet, Rfl: 0 documented in this encounter [facility] 09-28-2023 Hospital Discharg e instructions Additional Instructions Use albuterol inhaler 2 puffs every 4-6 hours if needed for wheezing or shortness of breath Zofran for nausea vomiting Push fluids Rest Good handwashing Steroids as directed Take antibiotics as instructed until gone Return here if you have any shortness of breath, chest pain, vomiting unable to keep anything down, or any other concerns [facility] Work Phone: 09-10-2023 Procedure note [facility] 07-11-2023 Evaluation note Encounter Date Diagnosis Assessment Notes Jul, Diarrhea (ICD-10 - R19.7) Jul, Weight loss (ICD-10 - R63.4) [facility] Other 09-25-2023 History and physical note Author Jordi Seals [facility] June 03, 2023 9:43am Note Date/Time June 03, 2023 9:43am [facility] [address] [place] [address] Gastroenterology H&P Signed Patient: Dawn Cuellar MR#: [id number] : 2000 Acct:[id number] Age/Sex: 23 / F Adm Date: 3 Loc: Room: Type: [facility] Attending Dr: Jordi Seals MD Copies [...] <Electronically signed by Jordi Seals MD> 06/03/23942 [facility] Work Phone: 1(987) 431-125509-25-2023 [facility]* Encounter Date Diagnosis Assessment Notes Treatment Notes Treatment Clinical Notes Apr, Diarrhea (ICD-10 - R19.7) Patient was seen in the ER and was advise by ER to see sifter and miller Patient will have labs done ordered today Apr, Unintentional weight loss (ICD-10 - R63.4) Patient is to have a colonoscopy that it will be scheduled today prep instructions given in office today Risks and benefits of procedure explained to patient; patient verbalizes understanding. [facility] Other 02-28-2023 Hospital Discharge instructions Follow Up Care 11/06/2022 13:26:54 With:Kayy Fontana MD, [facility], [facility] Address: [address] [place] [phone] When: only if needed [facility] Evaluation + Plan [facility] Evaluation noteNo assessment information available [facility] Work Phone: Evaluation note* Diagnosis Viral URI with cough- Primary [facility]* Diagnosis PTSD (post-traumatic stress disorder) ([facility])- Primary Posttraumatic stress disorder Bipolar 1 disorder ([facility]) Allergic urticaria Marijuana abuse Nondependent cannabis abuse, unspecified Abdominal discomfort Abdominal pain, unspecified site Mild intermittent asthma, unspecified whether complicated ([facility]) [facility]* Diagnosis Late period- Primary Other disorder of menstruation and other abnormal bleeding from female genital tract Unprotected sex Problems related to high-risk sexual behavior [facility]* Diagnosis Missed menses , unspecified gestational age Encounter for supervision of normal first in first trimester documented [facility] this encounter [facility]* Diagnosis 14 weeks gestation of Second trimester state, incidental [facility]* Diagnosis Second trimester state, incidental 21 weeks gestation of Screening, , for anatomic survey Encounter for anatomic survey Vaginal discharge Leukorrhea, not specified as infective STD exposure Well woman exam with routine gynecological exam Routine gynecological examination documented in this encounter [facility] Healthcare[facility] and physical note Author Jordi Seals [facility] September 10, 2023 9:00am Note Date/Time September 10, 2023 9: 00am [facility] [address] [place] [address] Gastroenterology H&P Signed Patient: Dawn Cuellar MR#: [id number] : 2000 Acct:[id number] Age/Sex: 23 / F Adm Date: 4 Loc: Room: Type: [facility] Attending Dr: Jordi Seals MD Copies [...] signed by Jordi Seals MD> 09/10/23 0900 [facility] Work Phone: History general Narrative - Reported* Type Description Date Medical History hx of acid reflux Medical History lactose intolerance Surgical History FINGER SURGERY Hospitalization History 2.5 weeks old for milk a PK Clean Other Hospital course Narrative No data available for this section [facility] Hospital Discharge instructions Additional Instructions Eat [...] high fever vomiting or any other concerns [facility] Work Phone: Hospital Discharge instructions Additional Instructions [...] 45 -Follow up with PCP. -Office number [phone]. [facility] Work Phone: Hospital Discharge instructions Additional Instructions [...] in the office as scheduled -Office number [phone]. [facility] Work Phone: Hospital Discharge instructions Additional Instructions Follow-up with mental health Return to ED if develop worsening symptoms or [facility] Work Phone: Progress note No data available for this section [facility] Reason for referral (narrative) , [facility] please Referred by: Kayy Fontana MD [facility] Summary Purpose Family History Relationship Condition Age at Onset Recorded Date/T branden sister Atrial fibrillation Unknown grandparent Heart disease Unknown Malignant neoplasm Unknown Advance Directives Advance Directive Response Recorded Date/ Time Advance [...] Weight Loss abd pain, cough,vomiting trouble breathing Chief Complaint Abd pain Chief Complaint Abd pain MHP Chief Complaint Admit Date [facility] June 29, 2024 1 0:34am BH June 29, 2024 3 :39pm lightheaded, nausea September 03, 2024 6:13pm right shoulder pain/injury September 21, 2024 8:31pm Additional Source Comments INFORMATION SOURCE (unrecogn ized section and content) DATE CREATED AUTHOR 08/07/2022 [facility] DATE CREATED AUTHOR AUTHOR'S ORGANIZ ATION 11/15/2022 [facility] DATE CREATED AUTHOR AUTHOR'S ORGANIZ ATION 10/02/2024 [facility] DATE CREATED AUTHOR AUTHOR'S ORGANIZ ATION 12/08/2024 [facility] Special[facility] EPIC Care Teams (unrecognized sec tion and content) Pie Filler Relationship Specialty Start Date End Date Zachary Araya DO [address] [place] [address] PCP - General Family Medicine 04/09/23 Zachary Araya DO [address] [place] [address] PCP - [facility] 06/09/24 Team Status: Active Member Role Status Dates Divina Araya DO Primary Care Provider Active Team Status: Inactive Member Role Status Dates Divina Araya DO Primary Care Provider Active Vivian Nieto , NUT SORTER OPERATOR- Emergency Provider Active Goals (unrecognized section and content) Goals may be documented in a n alternate section REASON FOR VISIT (unrecogniz ed section and content) Reason Comments Amenorrhea Reason Comments Routine Visit FOR RECORDS PERTAINING TO PATIENTS WHO ARE [...] BE BASED ON THE PRIMARY CLINICAL RECORDS. [facility] [employer] [facility]. provides no warranty or guarantee of the accuracy or completeness of information in this document.
[2025-01-28 12:08] LABS: Age Gdln ACOG Testing Note (.); IGP, rfx Aptima HPV ASCU Note (.)
== END 2025-01-25 20:29 | disposition home or self-care (01) ==
LOC: LAB 20:28
PROVIDERS: PCP Family Medicine; Visit Provider Nurse Practitioner Family
DX: Z01.419 Encounter for gynecological examination (general) (routine) without abnormal findings (principal)
CPT/HCPCS: 88175

== ENCOUNTER 2025-01-27 10:14 | Outpatient (OUT) | payer OTHER, SELFPAY ==
--- OUTSIDE RECORDS SUMMARY | 2020-06-02 09:45 | XMS_ITS | Continuity of Care Document ---
Author Organization [facility] Address [address] [place] [address] Phone Care Team Providers Care Janitorial Account Manager Name Role Phone Andres Edgar Unavailable Unavailable [...] Diagnoses Date Provider Providers Copied on Encounter [facility], [address] [place], [place], [id number], tel:[phone] [facility] No Information Edward Arciniega. [address], [place], [id number], [place]. tel:[phone] [facility], [address], [place], [id number], [place] tel:[phone] [facility] No Information Edward Arciniega. [address], [place], [id number], [place]. tel:[phone] OFFICE/OUTPATI ENT VISIT, [facility], [address], [place], [id number], [place] tel:[phone] [facility] No Information Edward Arciniega. [address], [place], [id number], [place]. tel:[phone] OFFICE/OUTPATI ENT VISIT, [facility], [address], [place], [id number], [place] tel:[phone] [facility] No Information Edward Arciniega. [address], [place], [id number], [place]. tel:[phone] Family History Family Member Type Diagnosis Age [...] Record Payers Payer name Insurance type Covered republican ID Authoriza tion(s) Medicaid Wrap - [facility] [place] [id number] Medicaid W[place] - [facility] [place] [id number] Medicaid W[place] - [facility] [place] [id number] Social History Type Description Quantity Date Captured [...]
--- OUTSIDE RECORDS SUMMARY | 2025-01-25 10:10 | XMS_ITS | Encounter Summary ---
Author Organization [facility] Address [address] [place] [address] Care Team Providers Care Process Server Name Role Phone QuianaDiego Steff DOBBINS Primary Care Provider [phone] Derianrayshawn Diego Artis DO Unavailable [phone] Reason for Visit * Reason Comments Routine Visit Encounter Details Date Type Department Care Team (Latest Contact Info) Description 01/25/2025 10:10 AM EDT Routine [facility] [address] [address] Cynthia Troy, PLASTIC SHAPER [address] [place] [address] Second trimester ; 21 weeks gestation of ; Screening, , for anatomic survey; Vaginal discharge; STD exposure; Well woman exam with routine gynecological exam Social History Tobacco Use Types Packs/Day Years Used Date Smoking Tobacco: Never Smokeless Tobacco: Never Alcohol Use Standard Drinks/Week Comments Never 0 (1 standard drink = 0.6 oz pur e alcohol) caffeine: occasional PHQ-2 Answer Date Recorded Patient Health Questionnaire-2 Score 0 01/06/2025 Estimated Date of Delivery Comme nts Yes 06/07/2025 Based on last me nstrual period of 08/31/2024 Sex and Gender Information Value Date Recorded Sex Assigned at Not on file Legal Sex Female 6:53 PM EDT Gender Identity Not on file Sexual Orientation Not on file documented as of this encounter Last Filed Vital Signs Vital Sign Reading Time Taken Comments Blood Pressure 100/60 01/25/2025 10:37 AM EDT Pulse - - Temperature - - Respiratory Rate - - Oxygen Saturation - - Inhaled Oxygen Concentration - - Weight 51 kg (112 lb 8 oz) 01/25/2025 10:37 AM E DT Height - - Body Mass Index 20.58 04/29/2024 3:45 PM EDT documented in this encounter Progress Notes * Cynthia Troy NP - 01/25/2025 10:10 AM EDT Reason for Appointment: Patient ID: Dawn Cuellar is a 24 y.o. female who presents for Routine Visit Patient presents today for Return OB appointment. MEDICATIONS Current Outpatient Medications Medication Instructions albuterol HFA 90 mcg/act inhaler 2 puffs, Inhalation, Every 4 hours PRN [id number] ( 1 + IRON PO) 1 tablet, Daily ALLERGIES Allergies Allergen Reactions Tilactase Diarrhea Amoxicillin Unknown Milk (Cow) Unknown PROBLEMS Active Ambulatory Problems Diagnosis Date Noted Anxiety 04/09/2023 Asthma 04/09/2023 Gastroesophageal reflux disease without esophagitis 04/09/2023 Left wrist pain 04/09/2023 Multiple joint pain 04/09/2023 PTSD (post-traumatic stress disorder) ([facility]) 12/20/2023 depression ([facility]) 12/20/2023 Marijuana abuse 04/28/2024 Resolved Ambulatory Problems Diagnosis Date Noted ADHD (attention deficit hyperactivity disorder) ([facility]) 12/20/2023 Past Medical History: Diagnosis Date Acid reflux Allergies Episodic tension type headache Fractured nose HISTORY PAST MEDICAL HISTORY SOCIAL HISTORY Past Medical History: Diagnosis Date Acid reflux ADHD (attention deficit hyperactivity disorder) ([facility]) 12/20/2023 Allergies Asthma Episodic tension type headache Fractured nose Social History Tobacco Use Smoking status: Never Smokeless tobacco: Never Vaping Use Vaping status: Never Used Substance Use Topics Alcohol use: Never Comment: caffeine: occasional Drug use: Never FAMILY HISTORY Family History Problem Relation Name Age of Onset Heart disease Sister Hypertension Maternal Grandmother Heart attack Paternal Grandfather SURGICAL HISTORY Past Surgical History: Procedure Laterality Date FINGER SURGERY Right 06/28/2015 TOE SURGERY fractured toe - 2009 2011 REVIEW OF SYSTEMS Review of Systems: Review of Systems Constitutional: Negative. HENT: Negative. Eyes: Negative. Respiratory: Negative. Cardiovascular: Negative. Gastrointestinal: Negative. Genitourinary: Negative. Musculoskeletal: Negative. Skin: Negative. Neurological: Negative. All other systems reviewed and are negative. Hematological: Negative. Endocrine: Negative. Allergic/Immunologic: Negative. OBJECTIVE Objective: Physical Exam Constitutional: Appearance: Normal appearance. She is well-developed. Genitourinary: Vulva normal. Breasts: Breasts are soft. Right: Normal. Left: Normal. Cardiovascular: Rate and Rhythm: Normal rate and regular rhythm. Pulmonary: Effort: Pulmonary effort is normal. Breath sounds: Normal breath sounds. Abdominal: General: Bowel sounds are normal. There is no distension. Palpations: Abdomen is soft. Tenderness: There is no abdominal tenderness. There is no guarding or rebound. Musculoskeletal: General: No swelling. Normal range of motion. Right lower leg: No edema. Left lower leg: No edema. Neurological: Mental Status: She is alert and oriented to person, place, and time. Skin: General: Skin is warm and dry. Psychiatric: Mood and Affect: Mood normal. Behavior: Behavior normal. Vitals and nursing note reviewed. Exam conducted with a filtration plant mechanic present. Vitals: Estimated body mass index is 18.68 kg/m?? as calculated from the following: Height as of 04/29/24: 5' 2 . Weight as of 12/07/24: 102 lb 1.9 oz. BP: Patient's last menstrual period was 08/31/2024. ASSESSMENT & PLAN ICD-10-CM 1. Second trimester Z34.92 Alpha fetoprotein, maternal Alpha fetoprotein, maternal 2. 21 weeks gestation of Z3A.21 POCT urinalysis dipstick manually resulted Alpha fetoprotein, maternal Alpha fetoprotein, maternal 3. Screening, , for anatomic survey Z36.89 US OB 14+ weeks anatomy scan US OB 14+ weeks anatomy scan 4. Vaginal discharge N89.8 SURESWAB(R) ADVANCED VAGINITIS PLUS, TMA CHLAMYDIA TRACHOMATIS (GENITO/STI) Neisseria gonorrhea DNA probe, direct 5. STD exposure Z20.2 SURESWAB(R) ADVANCED VAGINITIS PLUS, TMA CHLAMYDIA TRACHOMATIS (GENITO/STI) Neisseria gonorrhea DNA probe, direct 6. Well woman exam with routine gynecological exam Z01.419 Pap Smear Return OB/Annual Exam: Patient presents today for a annual exam/routine obstetrics appointment. Patient is currently 73. Patient states she is doing well but has complaints of nausea in the morning. Pap and cultures was obtained without difficulty and patient was given orders for anatomy scan and msAFP to be obtained. Orders Placed This Encounter Procedures OB 14+ weeks anatomy scan Alpha fetoprotein, maternal CHLAMYDIA TRACHOMATIS (GENITO/STI) Neisseria gonorrhea DNA probe, direct POCT urinalysis dipstick manually resulted Follow Up: Patient is to schedule annual exam for next year and return to office in 4 weeks for OB appointment. Documented by Eileen Koehler MA on behalf of: Cynthia Troy NP documented in this encounter Plan of Treatment Upcoming Encounters Date Type Department Care Team (Late st Contact Info) Description 02/22/2025 1:50 PM EDT Routine [facility] [address] [place] [address] Demarco Orr, DO [address] [place] [address] Scheduled Orders Name Type Priority Associated Diagnoses Orde r Schedule Pap Smear Pathology and Cytology Routine Well woman exam with routine gynecological exam Ordered: 01/25/2025 Alpha fetoprotein, maternal Lab Routine Second trimester 21 weeks gestation of Expected: 01/25/2025 (Approximate), Expires: 02/25/2025 SURESWAB(R) ADVANCED VAGINITIS PLUS, TMA Pathology and Cytology Routine Vaginal discharge STD exposure Ordered: 01/25/2025 CHLAMYDIA TRACHOMATIS (GENITO/STI) Lab Routine Vaginal discharge STD exposure Ordered: 01/25/2025 Neisseria gonorrhea DNA probe, direct Lab Routine Vaginal discharge STD exposure Ordered: 01/25/2025 OB 14+ weeks anatomy scan Imaging Routine Screening, , for anatomic survey Expected: 01/25/2025, Expires: 04/27/2025 documented as of this encounter Procedures Procedure Name Priority Date/Time Associated Diagnosis Comments POCT URINALYSIS DIPSTICK Routine 01/25/2025 10:43 AM EDT 21 weeks gestation of documented in this encounter Results * POCT urinalysis dipstick manually resulted (01/25/2025 10:43 AM EDT) Color, UA Yellow Clarity, UA Clear Glucose, UA Negative Negative - 1999(110) ++++ mg/dL Bilirubin, UA Negative Negative - 4(70) +++ mg/dL Ketones, UA Negative Negative - 160(16) ++++ mg/dL Spec Grav, UA 1.020 1 - 1.03 Blood, UA Negative Negative - 50 Regino/mcL pH, UA 7.0 5 - 9 Protein, UA Negative Negative - 1999(20) ++++ mg/dL Urobilinogen, UA 0.2 0.2 - 12 mg/dL Leukocytes, UA Negative Negative - 500+++ Dara/mcL Nitrite, UA Negative Negative - Positive Urine 01/25/2025 10:4 3 AM EDT Cynthia Troy NP POINT OF CARE TEST ENTER/EDIT ORDERABLES Final Result documented in this encounter Visit Diagnoses Diagnosis Second trimester state, incidental 21 weeks gestation of Screening, , for anatomic survey Encounter for anatomic survey Vaginal discharge Leukorrhea, not specified as infective STD exposure Well woman exam with routine gynecological exam Routine gynecological examination documented in this encounter Care Teams Process Server Relationship Specialty Start Date End Date Diego Araya DO [address] [place] [address] PCP - General Family Medicine 04/09/23 Diego Araya DO [address] [place] [address] PCP - [facility] 06/09/24 documented as of this encounter
--- OUTSIDE RECORDS SUMMARY | 2025-01-27 10:17 | XMS_ITS ---
Author Organization [facility] Source Produ ction (ClinicalSummary Clone) Address Unknown Care Team Providers Care Post Closing Specialist Name Role Phone Unavailable Primary Care Physician Unavailab le Results * [UNITY] ANEUPLOIDY NIPT Performed by: [employer] Component Value Range Date Fraction 10.8% 12/10/2024 06 :17 am UT Rh(D) NIPT RhD DETECTED 12/10/2024 06:1 7 am UT Sex Chromosome Aneuploidy NOT DETECTED 06:17 am UTC Monosomy X LOW RISK <1 in 10,000 2024 06:17 am UTC Trisomy 13 LOW RISK <1 in 10,000 2024 06:17 am UTC Trisomy 18 LOW RISK <1 in 10,000 2024 06:17 am UTC Trisomy 21 LOW RISK <1 in 10,000 2024 06:17 am UTC Sex FEMALE 12/10/2024 06:1 7 am UTC Gestation ANDUJAR 12/11/19 06:17 am UT For detailed report, see PDF See PDF 12/10/2024 06:17 am UTC 12/10/2024 06:1 7 am UT Social History Observation Value Start Date End Date
--- OUTSIDE RECORDS SUMMARY | 2025-01-27 10:17 | XMS_ITS | Encounter Summary ---
Author Organization [facility] Address [address] [place] [address] Care Team Providers Care Reporting Analyst Name Role Phone QuianaDiego Steff DOBBINS Primary Care Provider [phone] DerianDiego tabares DO Unavailable [phone] Encounter Details Date Type Department Care Team (Late Contact Info) Description 11/05/2024 Abstract [facility] [address] [place] [address] Demarco Orr DO [facility] [address], [place] [address] Social History Tobacco Use Types Packs/Day Years Used Date Smoking Tobacco: Never Smokeless Tobacco: Never Alcohol Use Standard Drinks/Week Comments Never 0 (1 standard drink = 0.6 oz pur e alcohol) caffeine: occasional PHQ-2 Answer Date Recorded Patient Health Questionnaire-2 Score 0 04/07/2024 Estimated Date of Delivery Comme nts Yes 06/07/2025 Based on last me nstrual period of 08/31/2024 Sex and Gender Information Value Date Recorded Sex Assigned at Not on file Legal Sex Female 6:53 PM EDT Gender Identity Not on file Sexual Orientation Not on file documented as of this encounter Plan of Treatment Upcoming Encounters Date Type Department Care Team (Late Contact Info) Description 02/22/2025 1:50 PM EDT Routine [facility] [address] [place] [address] Demarco Orr DO [address] [place] [address] documented as of this encounter Visit Diagnoses Not on filedocumented in this encounter Care Teams Reporting Analyst Relationship Specialty Start Date End Date Diego Araya DO [address] [place] [address] PCP - General Family Medicine 04/09/23 Diego Araya DO [address] [place] [address] PCP - [facility] 06/09/24 documented as of this encounter
--- OUTSIDE RECORDS SUMMARY | 2025-01-27 10:17 | XMS_ITS ---
Author Organization [facility] Address [address] [place] [address] Care Team Providers Care Bull Ladle Tender Name Role Phone Diego Araya DO Primary Care Provider [phone] Diego rAaya DO Unavailable [phone] [facility] Status:Enrolled (Active) Start date:12/04/2024 Enrollment date:12/08/2024 Enrollment reason:Identified by Health Plan Case Team Name Relationship Phone Cira Figueroa LPN(Responsible Staff) [facility] Continued Care and Services Coordination
--- OUTSIDE RECORDS SUMMARY | 2025-01-27 10:17 | XMS_ITS | Encounter Summary ---
Author Organization [facility] Address [address] [place] [address] Care Team Providers Care Bench Worker Apprentice Name Role Phone QuianaDiego Steff DOBBINS Primary Care Provider [phone] DerianDiego tabares DO Unavailable [phone] Encounter Details Date Type Department Care Team (Late Contact Info) Description 11/05/2024 Abstract [facility] [address] [place] [address] Demarco Orr DO [employer] [address], [place] [address] Social History Tobacco Use Types Packs/Day Years [...] Description 02/22/2025 1:50 PM EDT Routine [facility] [address] [place] [address] Demarco Orr DO [address] [place] [address] documented as of this encounter Visit Diagnoses Not on filedocumented in this encounter Care Teams Bench Worker Apprentice Relationship Specialty Start Date End Date Diego Araya DO [address] [place] [address] PCP - General Family Medicine 04/09/23 Diego Araya DO [address] [place] [address] PCP - [facility] 06/09/24 documented as of this encounter
--- OUTSIDE RECORDS SUMMARY | 2025-01-27 10:18 | XMS_ITS | Encounter Summary ---
Author Organization [facility] Address [address] [place] [address] Care Team Providers Care Message Clerk Name Role Phone Sherice Camarillo ASSEMBLER ENGINE Unavailable [phone] Diego Araya DO Primary Care Provider Diego Araya DO Unavailable Martin Phipps Unavailable Diego Araya DO Unavailable [phone] Vicky Robles LPN Unavailable Unavailable Encounter Details Date Type Department Care Team (Late st Contact Info) Description 03/14/2023 Abstract [facility] [address] [place] [address] Demarco Orr, [facility] [address], [facility] Social History Tobacco Use Types Packs/Day Years Used Date Smoking Tobacco: Never Assessed Comments Unknown Sex and Gender Information Value Date Recorded Sex Assigned at Not on file Legal Sex Female 6:53 PM EDT Gender Identity Not on file Sexual Orientation Not on file documented as of this encounter Plan of Treatment Upcoming Encounters Date Type Department Care Team (Late st Contact Info) Description 02/22/2025 1:50 PM EDT Routine [facility] [address] [place] [address] Demarco Orr, DO [address] [place] [address] documented as of this encounter Visit Diagnoses Not on filedocumented in this encounter Care Teams Message Clerk Relationship Specialty Start Date End Date Sherice Camarillo NP [address] [place] [address] PCP - [facility] 03/09/23 Diego Araya DO [address] [place] [address] PCP - General Family Medicine 04/09/23 Diego Araya DO [address] [place] [address] PCP - [facility] 12/09/23 Martin Phipps PA [address] [place] [address] PCP - [facility] 03/09/24 Diego Araya DO [address] [place] [address] PCP - [facility] 06/09/24 Vicky Robles LPN Licensed Practical Nurse Family Medicine 10/01/2410/08 documented as of this encounter
--- OUTSIDE RECORDS SUMMARY | 2025-01-27 10:18 | XMS_ITS | Patient Health Record ---
Author Organization [employer] [facility] [employer] Address [address] [place] [address] Care Team Providers Care Sociology Professor Name Role Phone Toy Tee Primary Care Provider Reason For Referral No Information Plan Of Treatment No Information Insurance Providers Payer Name Payer Address Payer Phone Subscriber Number Group Number Insured Name Patient Relationship to Insured Coverage Start Date Coverage End Date [employer] [place] [employer] [address] [address] [place] [address] [id number] KATHY MAJOR Self - patient is the insured 3 [employer] [facility] [place] [address] [place] [address] [phone] [id number] KATHY MAJOR Self - patient is the insured 3
--- OUTSIDE RECORDS SUMMARY | 2025-01-27 10:18 | XMS_ITS | Encounter Summary ---
Author Organization [facility] Address [address] [facility] [place] [address] Care Team Providers Care Rubber Belt Splicer Name Role Phone Sherice Camarillo NP Unavailable [phone] Diego Araya DO Primary Care Provider Diego Araya DO Unavailable [phone] Martin Phipps Unavailable Diego Araya DO Unavailable Vicky Robles LPN Unavailable Unavailable Encounter Details Date Type Department Care Team (Late st Contact Info) Description 09/10/2023 Orders Only [facility] [address] [facility] [address] [place] [id number] A, Unknown Practice [address] [place], [place] [id number] Social History Tobacco Use Types Packs/Day Years Used Date Smoking Tobacco: Never Smokeless Tobacco: Never Alcohol Use Standard Drinks/Week Comments Never 0 (1 standard drink = 0.6 oz pur e alcohol) caffeine: occasional PHQ-2 Answer Date Recorded Patient Health Questionnaire-2 Score 0 06/11/2023 Comments Unknown Sex and Gender Information Value Date Recorded Sex Assigned at Not on file Legal Sex Female 6:53 PM EDT Gender Identity Not on file Sexual Orientation Not on file documented as of this encounter Plan of Treatment Upcoming Encounters Date Type Department Care Team (Late st Contact Info) Description 02/22/2025 1:50 PM EDT Routine [facility] OB [address] [place] [address] [place] [address] Demarco Orr DO [address] [facility] [address] [place] [address] documented as of this encounter Procedures Procedure Name Priority Date/Time Associated Diagnosis Comments ESOPHAGOSCOPY Routine 09/10/2023 12:55 PM EST documented in this encounter Results * Esophagoscopy (09/10/2023 12:55 PM EST) Anatomical Region Laterality Modality Endoscopy us Unknown Practice A ENDOSCOPY PROCEDURE ORDERABLE S Final Result documented in this encounter Visit Diagnoses Not on filedocumented in this encounter Care Teams Rubber Belt Splicer Relationship Specialty Start Date End Date Sherice Camarillo NP [address] [place] [address] PCP - [facility] 03/09/23 Diego Araya DO [address] [place] [address] PCP - General Family Medicine 04/09/23 Diego Araya DO [address] [place] [address] PCP - [facility] 12/09/23 Martin Phipps PA [address] [place] [address] PCP - [facility] 03/09/24 Diego Araya DO [address] [place] [address] PCP - [facility] 06/09/24 Vicky Robles LPN Licensed Practical Nurse Family Medicine 10/01/2410/08 documented as of this encounter
--- OUTSIDE RECORDS SUMMARY | 2025-01-27 10:18 | XMS_ITS | Encounter Summary ---
Author Organization [facility] Address [address] [place] [address] Care Team Providers Care Sewer Inspector Name Role Phone QuianaDiego Steff DOBBINS Primary Care Provider [phone] DerianDiego tabares DO Unavailable [phone] Encounter Details Date Type Department Care Team (Late Contact Info) Description 12/10/2024 Abstract [facility] [address] [place] [address] Demarco Orr DO [facility] [address] [place], [place] [address] Social History Tobacco Use Types Packs/Day Years Used Date Smoking Tobacco: Never Smokeless Tobacco: Never Alcohol Use Standard Drinks/Week Comments Never 0 (1 standard drink = 0.6 oz pur e alcohol) caffeine: occasional PHQ-2 Answer Date Recorded Patient Health Questionnaire-2 Score 0 12/09/2024 Estimated Date of Delivery Comme nts Yes [...] Description 02/22/2025 1:50 PM EDT Routine [facility] [address] [place] [address] Demarco Orr DO [address] [place] [address] [place] [address] documented as of this encounter Visit Diagnoses Not on filedocumented in this encounter Care Teams Sewer Inspector Relationship Specialty Start Date End Date Diego Araya DO [address] [place] [address] PCP - General Family Medicine 04/09/23 Diego Araya DO [address] [place] [address] PCP - [facility] 06/09/24 documented as of this encounter
--- OUTSIDE RECORDS SUMMARY | 2025-01-27 10:18 | XMS_ITS | Encounter Summary ---
Author Organization [facility] Address [address] [facility] [place] [address] Care Team Providers Care Oil House Attendant Name Role Phone Sherice Camarillo INTEGRATION SOFTWARE ENGINEER Unavailable [phone] Diego Araya DO Primary Care Provider Diego Araya DO Unavailable Martin Phipps Unavailable Diego Araya DO Unavailable [phone] Vicky Robles LPN Unavailable Unavailable Encounter Details Date Type Department Care Team (Late st Contact Info) Description 08/21/2023 Abstract [facility] [address] [facility] [address] [place] [address] Diego Araya DO [address] [facility] [address] [place] [address] Social History Tobacco Use Types Packs/Day Years [...] 1:50 PM EDT Routine [facility] [place] [address] Demarco Orr DO [address] [facility] [place] [address] documented as of this encounter Visit Diagnoses Not on filedocumented in this encounter Care Teams Oil House Attendant Relationship Specialty Start Date End Date Sherice Camarillo, RED [address] [place] [address] PCP - [facility] 03/09/23 Diego Araya DO [address] [place] [address] PCP - General Family Medicine 04/09/23 Diego Araya DO [address] [facility] PCP - [facility] 12/09/23 Martin Phipps PA [address] [place] [address] PCP - [facility] 03/09/24 Diego Araya DO [address] [place] [address] PCP - [facility] 06/09/24 Vicky Robles LPN Licensed Practical Nurse Family Medicine 10/01/2410/08 documented as of this encounter
--- OUTSIDE RECORDS SUMMARY | 2025-01-27 10:18 | XMS_ITS | Encounter Summary ---
Author Organization [facility] Address [address] [place] [address] Care Team Providers Care Vp Security Name Role Phone DerianDiego tabares Primary Care Provider [phone] DerianbautistaDiego cheng Steff DOBBINS Unavailable [phone] Encounter Details Date Type Department Care Team (Late Contact Info) Description 01/25/2025 Bamboo flowsheet [facility] [address] [place] [address] Cynthia Troy, COMMODITY DIRECTOR [address] [place] [address] Social History Tobacco Use Types Packs/Day Years [...] Routine [facility] [address] [place] [address] Demarco Orr DO [address] [place] [address] [place] [address] documented as of this encounter Visit Diagnoses Not on filedocumented in this encounter Care Teams Vp Security Relationship Specialty Start Date End Date Diego Araya DO [address] [place] [address] PCP - General Family Medicine 04/09/23 Diego Araya DO [address] [place] [address] PCP - [facility] 06/09/24 documented as of this encounter
--- OUTSIDE RECORDS SUMMARY | 2025-01-27 10:18 | XMS_ITS | Continuity of Care Document ---
Author Organization [facility] Address [address] [place] [address] Phone [phone] Care Team Providers Care Health Lead Name Role Phone Kayy Fontana MD Care Team Information Casiei eunice Unavailable SYED KAMARA MD Care Team Information Rece iver Unavailable Kayy Fontana MD Primary Care Physician Unav ailable Allergies and adverse reactions Active Allergies Criticality Reaction Severity Comments Date Amoxicillin Unable to assess criticality Weal (disorder) 11/15/2022
--- OUTSIDE RECORDS SUMMARY | 2025-01-27 10:18 | XMS_ITS | Clinical Summary ---
Author Organization [facility] Address [address] [place] [address] Care Team Providers Care Scrap Sorter Name Role Phone Diego Araya DO Primary Care Provider [phone] Diego Araya DO Unavailable [phone] Allergies Active Allergy Reactions Criticality Noted Date Comments Amoxicillin Unknown 04/09/2023 Milk (Cow) Unknown 04/17/2024 Tilactase Diarrhea High 05/31/2020 Medications albuterol HFA 90 mcg/act inhalerIndication s:Mild intermittent asthma, unspecified whether complicated (CMS/[facility]) Inhale 2 puffs every 4 (four) hours if needed for wheezing or shortness of breath 18 g 3 Active Ahcoyijd-Qhx-Bb-F A ( 1 + IRON PO) Take 1 tablet by mouth Daily Active Active Problems Problem Noted Date Diagnosed Date Marijuana abuse 04/28/2024 PTSD (post-traumatic stress disorder) 12/20/2023 depression 12/20/2023 Anxiety 04/09/2023 Asthma 04/09/2023 Gastroesophageal reflux disease without esophagi tis 04/09/2023 Left wrist pain 04/09/2023 Multiple joint pain 04/09/2023 Estimated Date of Delivery Comme nts Yes 06/07/2025 Based on last me nstrual period of 08/31/2024 Resolved Problems Problem Noted Date Diagnosed Date Resolved Date ADHD (attention deficit hype ractivity disorder) 12/20/2023 12/20/2023 Encounters Date Type Department Care Team Description 01/27/2025 Abstract [facility] [address] [place] [address] Demarco Orr, 01/25/2025 10:10 AM EDT Routine [facility] [address] [place] [address] Cynthia Troy, RED Second trimester ; 21 weeks gestation of ; Screening, , for anatomic survey; Vaginal discharge; STD exposure; Well woman exam with routine gynecological exam 01/25/2025 External Result Encounter [facility] External Department Unsolicited Cynthia Troy, RED 01/25/2025 Bamboo flowsheet [facility] [address] [place] [address] Cynthia Troy, RED 01/06/2025 Patient Outreach [facility] [address] [place] [address] Cira Figueroa, ROPE CLEANER 12/10/2024 Abstract [facility] [address] [place] [address] Demarco Orr, DO 12/09/2024 Patient Outreach [facility] [address] [place] [address] Cira Figueroa, ROPE CLE[employer]ER 12/07/2024 3:50 PM EDT Routine [facility] [address] [place] [address] Demarco Orr, 14 weeks gestation of ; Second trimester 12/07/2024 Bamboo flowsheet [facility] [address] [place] [address] Demarco Orr, DO 12/04/2024 Abstract [facility] [address] [place] [address] Demarco Orr, DO 12/04/2024 Telephone [facility] [address] [place] [address] Demarco Orr, DO 12/03/2024 Clinisync Result Encounter [facility] External Department Unsolicited Provider, Generic External Data 11/27/20[address] [facility] [address] [place] [address] Jennifer Batista LPN 11/05/2024 1:00 PM EST Initial [facility] [address] [place] [address] GA: [id number] 11/05/2024 12:30 PM EST Ancillary Procedure [facility] [address] [place] [address] Missed menses 11/05/2024 Abstract [facility] [address] [place] [address] Demarco Orr DO 11/05/20[address] Abstract [facility] [address] [place] [address] Demarco Orr, from Last 3 Months Immunizations Immunization Administration Dates Next Due DTaP 07/12/2003 DTaP, Unspecified 05/07/2006,2002,09/15/19 03,2002 HPV 9-Valent 06/02/2020 HPV, Quadrivalent 06/02/2015 Hep A, Unspecified 03/19/2007,05/07/2006 Hep B, Adolescent or Pediatric 2002 HiB, unspecified 2002 Hib (PRP-T) 07/12/2003 Hib / Hep B 2002,2002 IPV 05/07/2006,2002,2002 ,2002 Influenza, seasonal, injectable 06/02/2015 MMR 05/07/2006,07/12/2003 Meningococcal MCV4O 06/02/2020 Meningococcal MCV4P 06/02/2015 Pneumococcal Conjugate PCV 7 05/07/2006,07/12/20 03,2002,2002 Tdap 06/02/2015 Varicella 05/07/2006,07/12/2003 Family History Medical History Relation Name Comments Hypertension Maternal Grandmother Heart attack Paternal Grandfather Heart disease Sister Relation Name Status Comments Brother Alive Father Alive Maternal Grandfather Alive Maternal Grandmother Alive Mother Alive Paternal Grandfather Alive Paternal Grandmother Alive Sister Alive Son Alive Social History Tobacco Use Types Packs/Day Years Used Date Smoking Tobacco: Never Smokeless Tobacco: Never Tobacco Cessation:Counseling Given: Yes Alcohol Use Standard Drinks/Week Comments Never 0 [...] on file Sexual Orientation Not on file Last Filed Vital Signs Vital Sign Reading Time Taken Comments Blood Pressure 100/60 01/25/2025 10:37 AM EDT Pulse 92 08/25/2024 3:22 PM EST Temperature 36.5 C (97.7 F) 08/25/2024 3:22 PM EST Respiratory Rate - - Oxygen Saturation 99% 08/25/2024 3:22 PM EST Inhaled Oxygen Concentration - - Weight 51 kg (112 lb 8 oz) 01/25/2025 10:37 AM E DT Height 157.5 cm (5' 2 ) 04/29/2024 3:45 PM EDT Body Mass Index 20.58 04/29/2024 3:45 PM EDT Plan of Treatment Upcoming Encounters Date Type Department Care Team (Late st Contact Info) Description 02/22/2025 1:50 PM EDT Routine [facility] [address] [facility] [place] [phone] Demarco Orr, DO [address] [place] [address] Health Maintenance Due Date Last Done Comments Influenza Vaccine (Season Ended) 2025 06/02/20 15 Procedures Procedure Name Priority Date/Time Associated Diagnosis Comments RECURRENT VAGINITIS (HTRX) Routine 01/25/2025 11:14 AM EDT POCT URINALYSIS DIPSTICK Routine 01/25/2025 10:43 AM EDT 21 weeks gestation of HBSAG SCREEN Routine 12/03/2024 1:08 PM EDT RAPID PLASMA REAGIN, QUANT Routine 12/03/2024 1:08 PM EDT HCV ANTIBODY RFX TO QUANT PCR Routine 12/03/2024 1:08 PM EDT HIV AB/P24 AG WITH REFLEX Routine 12/03/2024 1:08 PM EDT ALL RUBELLA IGG AB Routine 12/03/2024 1: 08 PM EDT ALL TYPE AND SCREEN Routine 12/03/2024 1 :08 PM EDT ALL CBC WITH AUTO DIFF Routine 12/03/2024 1:08 PM EDT MLR HEMOGLOBIN A1C Routine 12/03/2024 1: 08 PM EDT BOX TEST Routine 12/03/2024 1:08 PM EDT CANNABINOID CONF, MS, UR Routine 12/03/2024 12:54 PM EDT URINE CULTURE, ROUTINE Routine 12/03/2024 12:54 PM EDT [facility] DRUG SCREEN RAPID (URINE) Routine 12/03/2024 12:54 PM EDT POCT URINALYSIS DIPSTICK Routine 11/05/2024 1:30 PM EST Missed menses POCT , URINE Routine 11/05/2024 1:30 PM EST Missed menses US OB TRANSVAGINAL Routine 11/05/2024 12 :53 PM EST Missed menses from Last 3 Months Results * (ABNORMAL) RECURRENT VAGINITIS (HTRX) (01/25/2025 11:14 AM EDT) [facility] ATOPOBIUM VAGINAE 29.079(A) 19.961 - 24.689 ppm 01/26/2025 6:24 AM EDT [facility] ATOPOBIUM VAGINAE Detected(A) 19.961 - 24.689 ppm 01/26/2025 6:24 AM EDT [facility] BVAB 2,3 (BACTERIAL VAGINOSIS ASSOCIATED BACTERIA 2, 3); MOBILUNCUS SPP 0.000 19.961 - 24.689 ppm 01/26/2025 6:25 AM EDT [facility] BVAB 2,3 (BACTERIAL VAGINOSIS ASSOCIATED BACTERIA 2, 3); MOBILUNCUS SPP Not Detected 19.961 - 24.689 ppm 01/26/2025 6:25 AM EDT [facility] MARILYNN ALBICANS, PARAPSILOSIS, TROPICALIS 0.000 19.961 - 30.770 ppm 01/26/2025 6:25 AM EDT [facility] MARILYNN ALBICANS, PARAPSILOSIS, TROPICALIS Not Detected 19.961 - 30.770 ppm 01/26/2025 6:25 AM EDT [facility] MARILYNN GLABRATA 0.000 23.000 - 32.138 ppm 01/26/2025 6:24 AM EDT [facility] MARILYNN GLABRATA Not Detected 23.000 - 32.138 ppm 01/26/2025 6:24 AM EDT [facility] MARILYNN KRUSEI 0.000 23.000 - 32.271 ppm 01/26/2025 6:24 AM EDT [facility] MARILYNN KRUSEI Not Detected 23.000 - 32.271 ppm 01/26/2025 6:24 AM EDT [facility] CHLAMYDIA TRACHOMATIS 0.000 23.000 - 31.467 ppm 01/26/2025 6:25 AM EDT [facility] CHLAMYDIA TRACHOMATIS Not Detected 23.000 - 31.467 ppm 01/26/2025 6:25 AM EDT [facility] GARDNERELLA VAGINALIS 32.623(A) 19.961 - 24.689 ppm 01/26/2025 6:24 AM EDT [facility] GARDNERELLA VAGINALIS Detected(A) 19.961 - 24.689 ppm 01/26/2025 6:24 AM EDT [facility] MEGASPHAERA (TYPES 1, 2) 0.000 19.961 - 24.689 ppm 01/26/2025 6:25 AM EDT [facility] MEGASPHAERA (TYPES 1, 2) Not Detected 19.961 - 24.689 ppm 01/26/2025 6:25 AM EDT [facility] NEISSERIA GONORRHOEAE 0.000 23.000 - 32.117 ppm 01/26/2025 6:25 AM EDT [facility] NEISSERIA GONORRHOEAE Not Detected 23.000 - 32.117 ppm 01/26/2025 6:25 AM EDT [facility] TRICHOMONAS VAGINALIS 0.000 23.000 - 32.119 ppm 01/26/2025 6:24 AM EDT [facility] TRICHOMONAS VAGINALIS Not Detected 23.000 - 32.119 ppm 01/26/2025 6:24 AM EDT [facility] MYCOPLASMA GENITALIUM 0.000 19.961 - 24.689 ppm 01/26/2025 6:25 AM EDT [facility] MYCOPLASMA GENITALIUM Not Detected 19.961 - 24.689 ppm 01/26/2025 6:25 AM EDT [facility] ERMB, C; MEFA 26.396(A) 23.000 - 27.611 ppm 01/26/2025 6:25 AM EDT [facility] ERMB, C; MEFA Detected(A) 23.000 - 27.611 ppm 01/26/2025 6:25 AM EDT [facility] Tissue 01/25/2025 11:1 4 AM EDT 01/26/2025 2:01 AM EDT Cynthia Tryo NP LAB BLOOD ORDERABLES Final Re sult [facility] [place] [address] * POCT urinalysis dipstick manually resulted (01/25/2025 10:43 AM EDT) Only the most recent of2 resultswithin the time period is included. Color, UA Yellow Clarity, UA Clear Glucose, UA Negative Negative - 2000(110) ++++ mg/dL Bilirubin, UA Negative Negative - 4(70) +++ mg/dL Ketones, UA Negative Negative - 160(16) ++++ mg/dL Spec Grav, UA 1.020 1 - 1.03 Blood, UA Negative Negative - 50 Regino/mcL pH, UA 7.0 5 - 9 Protein, UA Negative Negative - 2000(20) ++++ mg/dL Urobilinogen, UA 0.2 0.2 - 12 mg/dL Leukocytes, UA Negative Negative - 500+++ Dara/mcL Nitrite, UA Negative Negative - Positive Urine 01/25/2025 10:4 3 AM EDT Cynthia Troy NP POINT OF CARE TEST ENTER/EDIT ORDERABLES Final Result * BOX TEST (12/03/2024 1:08 PM EDT) Pathologist [facility] BOX TEST SENT OUT [facility] BOX1 [facility] BOX2 12/03/2024 [facility] 12/03/2024 1:08 PM EDT 12/03/2024 1:12 PM EDT Rizwana COPELAND - 12/03/2024 1:16 PM EDT [place] Demarco Orr DO LAB BLOOD ORDERABLES Final Resul t [facility] * HBSAG SCREEN (12/03/2024 1:08 PM EDT) Pathologist [facility] HBSAG SCREEN Negative Negative [facility] Comment: Performed at: [address] [id number] [place]: Mendel Rubin PhD, Phone: [phone] 12/03/2024 1:08 PM EDT 12/03/2024 1:12 PM EDT Narrative [facility] - 12/04/2024 11:08 AM EDT Demarco Kirby DO LAB BLOOD ORDERABLES Final Resul t Performing Organization Address [facility]/ZIP Co de Phone Number [facility] * RAPID PLASMA REAGIN, QUANT (12/03/2024 1:08 PM EDT) [facility] RAPID PLASMA REAGIN, QUANT Non Reactive NonRea<1: 1 titer [facility] Comment: Please Note: This test does not meet current guidelines for screening and diagnosis of syphilis. This test is intended for following treatment response in patients being treated for syphilis infection. To screen for syphilis infection, a reflex cascade that includes both RPR and a treponema-specific assay should be utilized, such as Treponema pallidum (Syphilis) Screening Cherry (037596) or Rapid Plasma Reagin (RPR) Test With Reflex to Quantitative RPR and Confirmatory Treponema pallidum Antibodies (174122). Performed at: [address] [id number] [place]: Mendel Rubin PhD, Phone: [phone] 12/03/2024 1:08 PM EDT 12/03/2024 1:12 PM EDT Narrative [facility] - 12/04/2024 11:08 AM EDT Demarco Kirby DO LAB BLOOD ORDERABLES Final Resul t [facility] * HIV AB/P24 AG WITH REFLEX (12/03/2024 1:08 PM EDT) [facility] HIV AB/P24 AG SCREEN Non Reactive Non Reactive [facility] Comment: HIV-1/HIV-2 antibodies and HIV-1 p24 antigen were NOT detected. There is no laboratory evidence of HIV infection. HIV Negative Performed at: [address] [id number] [place]: Mendel Rubin PhD, Phone: [phone] 12/03/2024 1:08 PM EDT 12/03/2024 1:12 PM EDT Narrative [facility] - 12/04/2024 5:10 AM EDT Demarco Kirby DO LAB BLOOD ORDERABLES Final Resul t Performing Organization Address [facility]/ZIP Co de Phone Number [facility] * HCV ANTIBODY RFX TO QUANT PCR (12/03/2024 1:08 PM EDT) [facility] HCV AB Non Reactive Non Reactive [facility] INTERPRETATION: Comment . [facility] Comment: Not infected with HCV unless early or acute infection is suspected (which may be delayed in an immunocompromised individual), or other evidence exists to indicate HCV infection. 12/03/2024 1:08 PM EDT 12/03/2024 1:12 PM EDT Narrative [facility] - 12/04/2024 5:10 AM EDT OkCopayo DO LAB BLOOD ORDERABLES Final Resul t Performing Organization Address [facility] Co de Phone Number [facility] * MLR HEMOGLOBIN A1C (12/03/2024 1:08 PM EDT) [facility] GLYCOHEMOGLOBIN A1C 5.0 4.5 - 6.2 % [facility] Comment: ADA RECOMMENDED LIMIT 4.0 - 6.0 ADA THERAPEUTIC TARGET < 7.0 ACTION SUGGESTED > 7.0 ESTIMATED AVERAGE GLUCOSE 97 mg/dL [facility] 12/03/2024 1:08 PM EDT 12/03/2024 1:12 PM EDT Narrative [facility] - 12/03/2024 1:57 PM EDT us Demarco Kirby DO CLINISYNC Final Result Performing Organization Address [facility]/ZIP Co de Phone Number [facility] * ALL TYPE AND SCREEN (12/03/2024 1:08 PM EDT) Pathologist [facility] BLOOD TYPE AB Positive [facility] ANTIBODY SCREEN NEGATIVE [facility] 12/03/2024 1:08 PM EDT 12/03/2024 1:12 PM EDT Narrative [facility] - 12/03/2024 2:20 PM EDT [facility] , Demarco Kirby DO CLINISYNC Final Result [facility] * ALL RUBELLA IGG AB (12/03/2024 1:08 PM EDT) [facility] RUBELLA ANTIBODIES, IGG 4.15 Immune >0.99 index [facility] Comment: Non-immune <0.90 Equivocal 0.90 - 0.99 Immune >0.99 Performed at: [facility] [id number] [place]: Mendel Rubin PhD, Phone: [phone] 12/03/2024 1:08 PM EDT 12/03/2024 1:12 PM EDT [facility]ative [facility] - 12/04/2024 5:10 AM EDT Demarco Kirby DO CLINISYNC Final Result Performing Organization Address City/[facility]/ZIP Co de Phone Number [facility] * (ABNORMAL) ALL CBC WITH AUTO DIFF (12/03/2024 1:08 PM EDT) [facility] WBC 12.1(H) 4.0 - 11.0 10 3/uL TBH TBH RBC 4.28 4.20 - 5.40 10 6/uL TBH TBH HGB 12.9 12.0 - 16.0 g/dL TB TB HCT 37.7 36.0 - 48.0 % [facility] TBH MCV 88.1 81.0 - 99.0 fL TBH TB MCH 30.1 26.7 - 34.0 pg TBH TB MCHC 34.2 29.9 - 35.2 g/dL TBH TBH RDW 13.6 11.0 - 15.0 % TBH TBH PLT 251 150 - 450 10 3/uL TBH TBH MPV 10.0 9.5 - 13.5 fL [facility] NEUTROPHILS PERCENT AUTO 79.9(H) 43.0 - 75.0 % [facility] LYMPHOCYTES PERCENT AUTO 14.4(L) 20.5 - 60.0 % [facility] MONOCYTES PERCENT AUTO 3.5 1.7 - 12.0 % TBH TBH EO % 1.6 0.9 - 7.0 % [facility] BASOPHILS PERCENT AUTO 0.2 0.2 - 2.0 % [facility] IMMATURE GRANULOCYTES PCT AUTO 0.4 0.0 - 0.5 % [facility] NEUTROPHILS ABSOLUTE AUTO 9.7(H) 1.4 - 6.5 10 3/uL [facility]H LYMPHOCYTES ABSOLUTE AUTO 1.7 1.2 - 3.8 10 3/uL [facility] MONOCYTES ABSOLUTE AUTO 0.4 0.3 - 0.8 10 3/uL TBH TBH EO # 0.2 0.0 - 0.7 10 3/uL TBH BASOPHILS ABSOLUTE AUTO 0.0 0.0 - 0.1 10 3/uL [facility] IMMATURE GRANULOCYTES ABS AUTO 0.05(H) 0.00 - 0.03 10 3/uL [facility] 12/03/2024 1:08 PM EDT 12/03/2024 1:12 PM EDT Narrative [facility] - 12/03/2024 2:03 PM EDT Demarco Orr DO CLINISYNC Final Result [facility] * URINE CULTURE, ROUTINE (12/03/2024 12:54 PM EDT) Pathologist [facility] URINE CULTURE, ROUTINE Urine Culture, Routine [facility] URINE CULTURE, ROUTINE Culture shows less than 10,000 colony forming units of bacteria per [facility] URINE CULTURE, ROUTINE milliliter of urine. This colony count is not generally considered [facility] URINE CULTURE, ROUTINE to be clinically significant. [facility] URINE CULTURE, ROUTINE Performed at: [facility] URINE CULTURE, ROUTINE [address] [place], [place] [id number] [facility] URINE CULTURE, ROUTINE [employer] [place]: Mendel Rubin PhD, Phone: [phone] [facility] 12/03/2024 12:5 4 PM EDT 12/03/2024 1:12 PM EDT Narrative [facility] - 12/04/2024 9:07 PM EDT us Generic External Data Provider LAB BLOOD ORDERAB LES Final Result [facility] TB * (ABNORMAL) [facility] DRUG SCREEN RAPID (URINE) (12/03/2024 12:54 PM EDT) Pathologist [facility] CANNABINOID SCREEN URINE POSITIVE(A) NEGATIVE TBH PHENCYCLIDINE SCREEN URINE NEGATIVE NEGATIVE [facility] COCAINE SCREEN URINE NEGATIVE NEGATIVE TBH METHAMPHETAMINES SCREEN URINE NEGATIVE NEGATIVE TBH OPIATE SCREEN URINE NEGATIVE NEGATIVE TBH AMPHETAMINE SCREEN URINE NEGATIVE NEGATIVE TBH BENZODIAZEPINES SCREEN URINE NEGATIVE NEGATIVE TBH TRICYCLIC ANTIDEPRESSANT URINE NEGATIVE NEGATIVE TBH METHADONE SCREEN URINE NEGATIVE NEGATIVE TBH BARBITURATES SCREEN URINE NEGATIVE NEGATIVE TBH OXYCODONE SCREEN URINE NEGATIVE NEGATIVE TBH BUPRENORPHINE SCREEN URINE NEGATIVE NEGATIVE [facility] Comment: DRUG CLASS TEST SYSTEM CUT-OFF CONCENTRATIONS ARE FOLLOWS: AMP (Amphetamine): 500 ng/mL BAR (Barbiturates): 200 ng/mL BZO (Benzodiazepines): 150 ng/mL BUP (Buprenorphine): 10 ng/mL CECIL (Cocaine): 150 ng/mL mAMP (Methamphetamine): 500 ng/mL MTD (Methadone): 200 ng/mL OPI (Opiates): 100 ng/mL OXY (Oxycodone): 100 ng/mL PCP (Phencyclidine): 25 ng/mL THC (Cannabinoids): 50 ng/mL TCA (Trycyclic Antidepressants): 300 ng/mL 12/03/2024 12:5 4 PM EDT 12/03/2024 1:12 PM EDT Narrative [facility] - 12/03/2024 1:58 PM EDT us Demarco Kirby DO CLINISYNC Final Result [facility] * (ABNORMAL) CANNABINOID CONF, MS, UR (12/03/2024 12:54 PM EDT) CANNABINOID Positive(A ) . [facility] CARBOXY THC CONF, MS, UR 319 Cutoff=10 ng/mL [facility] Comment: Performed at: - [facility] [address] [place], [place] [id number] [place]: Petey Mtz PhD, Phone: [phone] 12/03/2024 12:5 4 PM EDT 12/03/2024 1:59 PM EDT Narrative [facility] - 12/07/2024 10:20 AM EDT us Demarco Kirby DO LAB BLOOD ORDERABLES Final Resul t [facility] * (ABNORMAL) POCT , urine manually resulted (11/05/2024 1:30 PM EST) Preg Test, Ur Positive Negative Urine 11/05/2024 1:30 PM EST us Demarco Kirby DO POINT OF CARE TEST ENTER/EDIT OR DERABLES Final Result * US OB transvaginal (11/05/2024 12:53 PM EST) Anatomical Region Laterality Modality Body Ultrasound 11/07/2024 7:23 AM EST Narrative 11/07/2024 7:23 AM EST EXAM: US OB TRANSVAGINAL HISTORY: Dating. COMPARISON: None available. TECHNIQUE: Two-dimensional [...] bilateral ovaries. Electronically Signed:Electronically signed by MEGHAN MENJIVAR II, MD, PHD at 07-Nov-2024 07:21:38 AM [facility] Procedure Note Meghan Menjivar MD - 11/07/2024 EXAM: US OB TRANSVAGINAL HISTORY: Dating. COMPARISON: None available. TECHNIQUE: Two-dimensional transvaginal grayscale ultrasound imaging ofthe pelvis was performed. Color Doppler evaluation of the ovaries was alsoperformed. FINDINGS: The uterus demonstrates a normal homogeneous echotexture. The cervixmeasures 4.3 cm in length and the cervical os is closed. The right ovary measures 2.8 x 1.2 x 2.8 cm and demonstrates a normalechotexture. There is normal color Doppler flow. The left ovary measures 3.6 x 2.0 x 2.2 cm and demonstrates a normalechotexture. There is normal color Doppler flow. No fluid is present within the cul-de-sac. There is a single, live intrauterine gestation identified with a fetalheart rate of 172 beats per minute and a crown-rump length measurement of2.4 cm, correlating to a gestational age of 9 weeks 0 days (+/- 6 days).There is no subchorionic hemorrhage visualized. A yolk sac isvisualized. IMPRESSION: 1. Single, live intrauterine gestation 9 weeks, 3 days by LMP. Today'sultrasound measurements correlate with a gestational age of 9 weeks 0days (+/- 6 days). MARILUZ by today's ultrasound is 06/10/2025. 2. Normal color Doppler evaluation of the bilateral ovaries. Electronically Signed:Electronically signed by MEGHAN MENJIVAR II, MD, PHDat 07-Nov-2024 07:21:38 AM [facility] us Demarco Orr DO IMG OB US PROCEDURES Final Resul t from Last 3 Months Insurance [employer] Care Teams Scrap Sorter Relationship Specialty Start Date End Date Diego Araya DO [address] [facility] [address] [place] [address] PCP - General Family Medicine 04/09/23 Diego Araya DO [address] [facility] [address] [place] [address] PCP - [facility] 06/09/24
--- OUTSIDE RECORDS SUMMARY | 2025-01-27 10:18 | XMS_ITS | Encounter Summary ---
Author Organization [facility] Address [address] [facility] [place] [address] Care Team Providers Care Social Director Name Role Phone Sherice Camarillo NP Unavailable [phone] Diego Araya DO Primary Care Provider Diego Araya DO Unavailable Martin Phipps Unavailable Diego Araya DO Unavailable [phone] Vicky Robles LPN Unavailable Unavailable Encounter Details Date Type Department Care Team (Late st Contact Info) Description 06/03/2023 Orders Only [facility] [address] [facility] [address] [place] [phone] A, Unknown Practice [address] [place], [place] [phone] Social History Tobacco Use Types Packs/Day Years Used Date Smoking Tobacco: Never Smokeless Tobacco: Never Alcohol Use Standard Drinks/Week Comments Never 0 (1 standard drink = 0.6 oz pur e alcohol) caffeine: occasional Comments Unknown Sex and Gender Information Value Date Recorded Sex Assigned at Not on file Legal Sex Female 6:53 PM EDT Gender Identity Not on file Sexual Orientation Not on file documented as of this encounter Plan of Treatment Upcoming Encounters Date Type Department Care Team (Late st Contact Info) Description 02/22/2025 1:50 PM EDT Routine [facility] [address] [place] [phone] Demarco Orr DO [address] [place] [address] documented as of this encounter Procedures Procedure Name Priority Date/Time Associated Diagnosis Comments COLONOSCOPY DIAGNOSTIC Routine 06/03/2023 10:43 AM EDT documented in this encounter Results * COLONOSCOPY DIAGNOSTIC (06/03/2023 10:43 AM EDT) Anatomical Region Laterality Modality Radiographic Erica ging us Unknown Practice A IMG XR PROCEDURES Final Resul t documented in this encounter Visit Diagnoses Not on filedocumented in this encounter Care Teams Social Director Relationship Specialty Start Date End Date Sherice Camarillo, RED [address] [place] [address] PCP - [facility] 03/09/23 Diego Araya DO [address] [place] [address] PCP - General Family Medicine 04/09/23 Diego Araya DO [address] [place] [address] PCP - [facility] 12/09/23 Martin Phipps PA [address] [place] [address] PCP - [facility] 03/09/24 Diego Araya DO [address] [place] [address] PCP - [facility] 06/09/24 Vicky Robles LPN Licensed Practical Nurse Family Medicine 10/01/2410/08 documented as of this encounter
--- OUTSIDE RECORDS SUMMARY | 2025-01-27 10:18 | XMS_ITS | Encounter Summary ---
Author Organization [facility] Address [address] [place] [address] Care Team Providers Care Test Center Manager Name Role Phone PeterDiego cheng Steff DOBBINS Primary Care Provider [phone] DerianDiego tabares DO Unavailable [phone] Encounter Details Date Type Department Care Team (Late Contact Info) Description 01/27/2025 Abstract [facility] [address] [place] [address] Demarco Orr DO [facility] [address], [place] [address] Social History Tobacco Use Types Packs/Day Years [...] Description 02/22/2025 1:50 PM EDT Routine [facility] [address] [place] [address] Demarco Orr DO [address] [place] [address] documented as of this encounter Visit Diagnoses Not on filedocumented in this encounter Care Teams Test Center Manager Relationship Specialty Start Date End Date Diego Araya DO [address] [place] [address] PCP - General Family Medicine 04/09/23 Diego Araya DO [address] [place] [address] PCP - [facility] 06/09/24 documented as of this encounter
--- OUTSIDE RECORDS SUMMARY | 2025-01-27 10:18 | XMS_ITS | Encounter Summary ---
Author Organization [facility] Address [address] [place] [address] Care Team Providers Care Licensed Bondsman Name Role Phone QuianaDiego Steff DOBBINS Primary Care Provider [phone] DerianDiego tabares DO Unavailable [phone] Encounter Details Date Type Department Care Team (Late Contact Info) Description 12/04/2024 Abstract [facility] [address] [place] [address] Demarco Orr DO [facility] [address], [place] [address] Social History Tobacco Use Types Packs/Day Years [...] Description 02/22/2025 1:50 PM EDT Routine [facility] [address] [place] [address] Demarco Orr DO [address] [place] [address] documented as of this encounter Visit Diagnoses Not on filedocumented in this encounter Care Teams Licensed Bondsman Relationship Specialty Start Date End Date Diego Araya DO [address] [place] [address] PCP - General Family Medicine 04/09/23 Diego Araya DO [address] [place] [address] PCP - [facility] 06/09/24 documented as of this encounter
--- OUTSIDE RECORDS SUMMARY | 2025-01-27 10:18 | XMS_ITS | Encounter Summary ---
Author Organization [facility] Address [address] [place] [address] Care Team Providers Care Director Of Product Development Name Role Phone Sherice Camarillo SC[employer] MODEL MAKER Unavailable [phone] Diego Araya DO Primary Care Provider Diego Araya DO Unavailable Martin Phipps Unavailable Diego Araya DO Unavailable Vicky Robles LPN Unavailable Unavailable Encounter Details Date Type Department Care Team (Late st Contact Info) Description 03/06/2023 Abstract [facility] [address] [place] [address] Demarco Orr, [facility] [address], [facility] Social History Tobacco Use Types Packs/Day Years [...] Description 02/22/2025 1:50 PM EDT Routine [facility] [address] [place] [address] Demarco Orr, DO [address] [place] [address] documented as of this encounter Visit Diagnoses Not on filedocumented in this encounter Care Teams Director Of Product Development Relationship Specialty Start Date End Date Sherice Camarillo NP [address] [place] [address] PCP - [facility] 03/09/23 Diego Araya DO [address] [place] [address] PCP - General Family Medicine 04/09/23 Diego Araya DO [address] [place] [address] PCP - [facility] 12/09/23 Martin Phipps PA [address] [place] [address] PCP - [facility] 03/09/24 Diego Araya DO [address] [place] [address] PCP - [facility] 06/09/24 Vicky Robles LPN Licensed Practical Nurse Family Medicine 10/01/2410/08 documented as of this encounter
--- OUTSIDE RECORDS SUMMARY | 2025-01-27 10:18 | XMS_ITS | Encounter Summary ---
Author Organization [facility] Address [address] [place] [address] Care Team Providers Care Architectural Drafter Name Role Phone DerianDiego tabares Primary Care Provider [phone] DerianbautistaDiego cheng Steff DOBBINS Unavailable [phone] Encounter Details Date Type Department Care Team (Late Contact Info) Description 01/25/2025 External Result Encounter [facility] External Department Unsolicited Cynthia Troy, [employer] [place] [address] Social History Tobacco Use Types Packs/Day [...] Routine [facility] [address] [place] [address] Demarco Orr, DO [address] [place] [address] documented as of this encounter Procedures Procedure Name Priority Date/Time Associated Diagnosis Comments RECURRENT VAGINITIS (HTRX) Routine 01/25/2025 11:14 AM EDT documented in this encounter Results * (ABNORMAL) RECURRENT VAGINITIS (HTRX) (01/25/2025 11:14 AM EDT) [facility] ATOPOBIUM VAGINAE 29.079(A) 19.961 - 24.689 ppm 01/26/2025 6:24 AM EDT [facility] ATOPOBIUM VAGINAE Detected(A) 19.961 - 24.689 ppm 01/26/2025 6:24 AM EDT [facility] BVAB 2,3 (BACTERIAL VAGINOSIS ASSOCIATED BACTERIA 2, 3); MOBILUNCUS SPP 0.000 19.961 - 24.689 ppm 01/26/2025 6:25 AM EDT [facility] BVAB 2,3 (BACTERIAL VAGINOSIS ASSOCIATED BACTERIA 2, 3); MOBILUNCUS SPP Not Detected 19.961 - 24.689 ppm 01/26/2025 6:25 AM EDT [facility] MARILYNN ALBICANS, PARAPSILOSIS, TROPICALIS 0.000 19.961 - 30.770 ppm 01/26/2025 6:25 AM EDT [facility] MARILYNN ALBICANS, PARAPSILOSIS, TROPICALIS Not Detected 19.961 - 30.770 ppm 01/26/2025 6:25 AM EDT [facility] MARILYNN GLABRATA 0.000 23.000 - 32.138 ppm 01/26/2025 6:24 AM EDT [facility] MARILYNN GLABRATA Not Detected 23.000 - 32.138 ppm 01/26/2025 6:24 AM EDT [facility] MARILYNN KRUSEI 0.000 23.000 - 32.271 ppm 01/26/2025 6:24 AM EDT [facility] MARILYNN KRUSEI Not Detected 23.000 - 32.271 ppm 01/26/2025 6:24 AM EDT [facility] CHLAMYDIA TRACHOMATIS 0.000 23.000 - 31.467 ppm 01/26/2025 6:25 AM EDT [facility] CHLAMYDIA TRACHOMATIS Not Detected 23.000 - 31.467 ppm 01/26/2025 6:25 AM EDT [facility] GARDNERELLA VAGINALIS 32.623(A) 19.961 - 24.689 ppm 01/26/2025 6:24 AM EDT [facility] GARDNERELLA VAGINALIS Detected(A) 19.961 - 24.689 ppm 01/26/2025 6:24 AM EDT [facility] MEGASPHAERA (TYPES 1, 2) 0.000 19.961 - 24.689 ppm 01/26/2025 6:25 AM EDT [facility] MEGASPHAERA (TYPES 1, 2) Not Detected 19.961 - 24.689 ppm 01/26/2025 6:25 AM EDT [facility] NEISSERIA GONORRHOEAE 0.000 23.000 - 32.117 ppm 01/26/2025 6:25 AM EDT [facility] NEISSERIA GONORRHOEAE Not Detected 23.000 - 32.117 ppm 01/26/2025 6:25 AM EDT [facility] TRICHOMONAS VAGINALIS 0.000 23.000 - 32.119 ppm 01/26/2025 6:24 AM EDT [facility] TRICHOMONAS VAGINALIS Not Detected 23.000 - 32.119 ppm 01/26/2025 6:24 AM EDT [facility] MYCOPLASMA GENITALIUM 0.000 19.961 - 24.689 ppm 01/26/2025 6:25 AM EDT [facility] MYCOPLASMA GENITALIUM Not Detected 19.961 - 24.689 ppm 01/26/2025 6:25 AM EDT [facility] ERMB, C; MEFA 26.396(A) 23.000 - 27.611 ppm 01/26/2025 6:25 AM EDT [facility] ERMB, C; MEFA Detected(A) 23.000 - 27.611 ppm 01/26/2025 6:25 AM EDT [facility] Tissue 01/25/2025 11:1 4 AM EDT 01/26/2025 2:01 AM EDT us Cynthia Troy [employer] BLOOD ORDERABLES Final Re s[facility] [address] [place] [address] documented in this encounter Visit Diagnoses Not on filedocumented in this encounter Care Teams Architectural Drafter Relationship Specialty Start Date End Date Diego Araya DO [address] [place] [address] PCP - General Family Medicine 04/09/23 Diego Araya DO [address] [place] [address] PCP - [facility] 06/09/24 documented as of this encounter
--- OUTSIDE RECORDS SUMMARY | 2025-01-27 10:19 | XMS_ITS | CCD ---
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 Name Role Phone KIRBY, DR REA Consulting [...] KIRBY, DR REA Consulting Unavailable REQUEST, DR NORIGEA LISTED Primary Care Unavaila ble KIRBY, DR [...] Unavailable DO Divina Araya [facility] Vivian Ayala Emergency Provider Bozena Imad Unavailable DO Divina Araya Primary Care Provider MD Jordi Seals Attending Provider DO Divina Araya Primary Care Provider MD Jordi Seals Attending Provider [phone] DO Divina Araya Primary Care Provider MD Jordi Seals Attending Provider VANESSA Roberson Emergency Provider DO Charlie Wells Emergency Provider DO Divina Araya Primary Care Provider [phone] MIGUEL Phipps Emergency Provider [phone] DO Paramjit Yanes Emergency Provider Zachary Araya DO Primary Care Provider Zachary Araya DO Unavailable Martin Paige Unavailable Paramjit Yanes DO Emergency Provider [phone] Divina Araya DO Primary Care Provider Frank Castillo MD Attending Provider [phone] Derek Phipps PA-C Emergency Provider Charlie Wells [...] ARAYA Referring Unavailable DEMARCO ORR Attending Unavailable SUSAN TROY Attending Unavailable ZACHARY ARAYA Attending Unavailable CARLOS ZARAGOZA Attending Unavailable ANUM TANG Attending Unavailable Allergies Allergy Classification Reported Allergen(s) Allergy Type Date of Onset Reaction(s) Facility (4 sources) Amoxicillin Drug Allergy 4 Unknown Reaction [facility] Repository (6 sources) Milk Drug allergy (disorder) 4 Unknown, Unknown Reaction [facility] Repository (20 sources) Amoxicillin; Translations: [amoxicillin] Drug Allergy 3 Weal (disorder), Unknown [facility] (17 sources) Cow milk Allergy to substance 4 Unknown [facility] (17 sources) Lactase Drug Allergy 0 Diarrhea [facility] Healthcare (1 source) Amoxicillin Drug Allergy 5 [facility] Repository (1 source) Milk Drug allergy (disorder) 5 [facility] Repository Medications Current Medications Medication Drug Class(es) Dates Sig (Normalized) Sig (Original) [id number] actuat albuterol 0.09 mg/actuat metered dose inhaler (20 sources) beta2-Adrenergic Agonist Start: 12-20-2023 take 2 puff(s) by inhalation every four hours for wheezing albuterol HFA 90 mcg/act inhaler Indications: Mild intermittent asthma, unspecified whether complicated (CMS/[facility]) Inhale 2 puffs every 4 [...] MG tablet Indications: PTSD (post-traumatic stress disorder) ([facility]) Take 1 tablet (10 mg) by mouth [...] needed for pain September 21, 2024 12:00am [place] (No Known Home Meds) (5 sources) Start: 06-29-2024 [place] (No Known Home Meds) Active June 29, 2024 12:00am Start: 01-18-2023 [place] (No Kn own Home Meds) Active January 17, 2023 11:00pm Start: 01-18-2023 [place] (No Kn own Home Meds) Active January [...] January 18, 2023 8:58am polyethylene glycol 3350 [id number] mg / potassium chloride 2970 mg / sodium bicarbonate 6740 mg / sodium chloride 5860 mg / sodium sulfate 95766 mg powder for oral solution (2 sources) Osmotic Laxative Start: 04-25-2023 take 236 g by mouth once Golytely 236 GM as directed Orally once for 1 days Apr, Active Puwjbzis-Kfu-Lj-FA ( 1 + IRON PO) (4 sources) Lqlnrxie-Scc-Cr- FA ( 1 + IRON PO) Take [...] 28, 2023 1:00am October 13, 2023 2:14pm Prenat.Vits,Maximo,Imn-Acah-Wed ic ( Vitamin) Tablet (10 sources) Start: 01-29-2021 End: 12-29-2022 take 1 tablet by mouth once daily Prenat.Vits,Maximo,Gtk-Zbow-Ojxny ( Vitamin) Tablet Discontinued 1 TAB PO Daily January 28, 2021 11:00pm December 29, 2022 11:53am Start: 01-29-2021 End: 12-29-2022 take 1 tablet by mouth once daily Prenat.Vits,Maximo,Fzb-Kadd-Lkgko ( Vitamin) Tablet Discontinued 1 TAB PO Daily January 29, 2021 12:00am December 29, 2022 12:53pm Problems Active Problems Problem Classification Problem Date Documented Da te Episodic/Chronic Anxiety disorders (20 sources) Anxiety; Translations: [Anxiety disorder, unspecified] Onset: 04-09-2023 04-09-2023 Chronic Asthma (19 sources) Asthma; Translations: [Unspecified asthma, uncomplicated] Onset: 04-09-2023 04-09-2023 Chronic Esophageal disorders (18 sources) Gastro-esophageal reflux disease without esophagitis; Translations: [...] applicable or unspecified; Translations: [MAT CARE OTH VT FTL GRTH 3RD TM UNS] Onset: 06-23-2022 [...] Episodic Attention-deficit, conduct, and disruptive behavior disorders (17 sources) Attention deficit hyperactivity disorder; Translations: [Attention-deficit hyperactivity disorder, unspecified type] Onset: 12-20-2023 Resolved: 12-20-2023 12-20-2023 Chronic Miscellaneous mental health disorders (17 sources) depression; Translations: [ depression] Onset: 12-20-2023 12-20-2023 Episodic Other complications of (4 sources) Other specified related conditions, second trimester; Translations: [OTH SPEC PREG RELATED COND 2ND TRI] Onset: 04-24-2022 Episodic Other lower respiratory disease (1 source) Shortness of breath; Translations: [Shortness of breath] Onset: 10-13-2023 Episodic Other non-traumatic joint disorders (17 sources) Pain of left wrist; Translations: [Pain in left wrist] Onset: 04-09-2023 04-09-2023 Episodic Other non-traumatic joint disorders (17 sources) Multiple joint pain; Translations: [Pain in unspecified joint] Onset: 04-09-2023 04-09-2023 Episodic Residual codes; unclassified (1 source) 25 weeks gestation of ; Translations: [25 WEEKS GESTATION OF ] Onset: 04-26-2022 Episodic Suicide and intentional self-inflicted injury (3 sources) Suicide attempt ; Translations: [Suicide attempt, initial encounter] Onset: 06-29-2024 06-29-2024 Episodic Results Test Name Value Interpretation Reference Range Facility RECURRENT VAGINITIS (HTRX)on 01-26-2025 ATOPOBIUM VAGINAE 29.079 Abnormal [facility] ATOPOBIUM VAGINAE Detected Abnormal [facility] BVAB 2,3 (BACTERIAL VAGINOSIS ASSOCIATED BACTERIA 2, 3); MOBILUNCUS SPP 0 [facility] BVAB 2,3 (BACTERIAL VAGINOSIS ASSOCIATED BACTERIA 2, 3); MOBILUNCUS SPP Not detected [facility] MARILYNN ALBICANS, PARAPSILOSIS, TROPICALIS 0 [facility] MARILYNN ALBICANS, PARAPSILOSIS, TROPICALIS Not detected [facility] MARILYNN GLABRATA 0 [facility] MARILYNN GLABRATA Not detected [facility] MARILYNN KRUSEI 0 [facility] MARILYNN KRUSEI Not detected [facility] CHLAMYDIA TRACHOMATIS 0 [facility] CHLAMYDIA TRACHOMATIS Not detected N [facility] ERMB, C; MEFA 26.396 Abnormal [facility] ERMB, C; MEFA Detected Abnormal [facility] GARDNERELLA VAGINALIS 32.623 Abnormal [facility] GARDNERELLA VAGINALIS Detected Abnormal [facility] Interpretation and review of laboratory results Abnormal [facility] MEGASPHAERA (TYPES 1, 2) 0 [facility] MEGASPHAERA (TYPES 1, 2) Not detected [facility] MYCOPLASMA GENITALIUM 0 [facility] MYCOPLASMA GENITALIUM Not detected N [facility] NEISSERIA GONORRHOEAE 0 [facility] NEISSERIA GONORRHOEAE Not detected N [facility] TRICHOMONAS VAGINALIS 0 [facility] TRICHOMONAS VAGINALIS Not detected N [facility] Urinalysis macro (dipstick) panel (U)on 01-25-2025 Bilirubin, UA Negative Negative - 4(70) +++ mg/dL [facility] Blood, UA Negative Negative - 50 Regino/mcL [facility] Clarity, UA Clear [facility] Color, UA Yellow [facility] Glucose, UA Negative Negative - 1999(110) ++++ mg/dL [facility] Interpretation and review of laboratory results Normal [facility] Ketones, UA Negative Negative - 160(16) ++++ mg/dL [facility] Leukocytes, UA Negative Negative - 500+++ Dara/mcL [facility] Nitrite, UA Negative Negative - Positive [facility] pH, UA 7 5 - 9 [facility] Protein, UA Negative Negative - 1999(20) ++++ mg/dL [facility] Spec Grav, UA 1.02 1 - 1.03 [facility] Urobilinogen, UA 0.2 0.2 - 12 mg/dL [facility] BOX TESTon 12-03-2024 BOX TEST SENT OUT [facility] BOX1 [facility] BOX2 12/03/2024 [facility] HCG ( test) Ql (U)o n 11-05-2024 Interpretation and review of laboratory results Abnormal [facility] Preg Test, Ur Positive Negative [facility] US OB TRANSVAGINALon 025 US OB TRANSVAGINAL [...] II, MD, PHD at 07-Nov-2024 07:21:38 AM [facility] Normal Not Available Comment on above: Order Comment: US OB TRANSVAGINAL No LMP recorded. Urinalysis macro (dipstick) panel (U)on 11-05-2024 Bilirubin, UA Negative Negative - 4(70) +++ mg/dL [facility] Blood, UA Negative Negative - 50 Regino/mcL [facility] Clarity, UA Clear [facility] Color, UA Yellow [facility] Glucose, UA Negative Negative - 1999(110) ++++ mg/dL [facility] Interpretation and review of laboratory results Normal [facility] Ketones, UA Negative Negative - 160(16) ++++ mg/dL [facility] Leukocytes, UA Negative Negative - 500+++ Dara/mcL [facility] Nitrite, UA Negative Negative - Positive [facility] pH, UA 7 5 - 9 [facility] Protein, UA Negative Negative - 1999(20) ++++ mg/dL [facility] Spec Grav, UA 1.02 1 - 1.03 [facility] Urobilinogen, UA 0.2 0.2 - 12 mg/dL [facility] X-ray reportOrdered By: Gerardo Hutton on 09-21-2024 Study report [facility] [place] [address] XRay Report Signed Patient: Dawn Cuellar MR#: [id number] : 2000 Acct:[id number] Age/Sex: 24 / F ADM Date: 5 Loc: ER Room: Type: [facility] ER Attending Dr: Copies to: Derek [...] 9:16 PM Dictation Location: RADIO-PC-22 Transcribed By: SHERINE 09/21/242115 Dictated By: Micky Hutton MD 09/21/242114 Signed By: 09/21/242115 [facility] Work Phone: XR shoulder RT min 2V*on XR shoulder RT min 2V* [facility] Main [place] [address] [place] [address] XRay Report Signed Patient: Dawn Cuellar MR#: [id number] : 2000 Acct:[id number] Age/Sex: 24 / F ADM Date: 09/21/24 Loc: ER Room: Type: [facility] ER Attending Dr: Copies to: Derek [...] 9:16 PM Dictation Location: RADIO-PC-22 Transcribed By: SHERINE 09/21/242115 Dictated By: Micky Hutton MD 09/21/242114 Signed By: 09/21/242115 Normal [facility] Laboratory - Chemistry and C hemistry - challengeon 08-26-2024 HCG.intact+Beta subunit Qn <1 mIU/mL [facility] Comment on above: Female (Non- ) 0 - 5 (Postmenopausal) 0 - 8 Female () Weeks of Gestation 3 6 - 71 4 10 - 750 5 197 - 1345 6 953 - 98379 7 [phone] 8 [phone] -[phone] 16288 -[phone] 12 90023 -[phone] 14 29357 - 18909 15 13224 - 60078 16 8880 - 89768 17 2377 - 38376 18 5890 - [phone] Gavin ECLIA methodology No Panel Informationon 08-26 Performed at: 01 - [place] [address] [employer] Driver: Mendel Rubin PhD, Phone: [phone] [facility] HCG ( test) Ql (U)o n 08-25-2024 Interpretation and review of laboratory results Normal [facility] Preg Test, Ur Negative Negative [facility] Alanine aminotransferase [En zymatic activity/volume] in Serum or PlasmaOrdered By: Paramjit Yanes on 06-29-2024 ALT [Catalytic activity/Vol] 6 U/L Low [facility] Comment on above: Performed By: #### E CAPO, CBC, CMP ####[facility] [id number] ALT [Catalytic activity/Vol] Alanine aminotransferase [Enzymatic activity/volume] in Serum or Plasma [facility] Albumin [Mass/volume] in Ser um or Plasma by Bromocresol green (BCG) dye binding methoOrdered By: Paramjit Yanes on 06-29-2024 Albumin BCG dye [Mass/Vol] 5.1 g/dL 3.5-5.7 [facility] Albumin BCG dye [Mass/Vol] Albumin [Mass/volume] in Serum or Plasma by Bromocresol green (BCG) dye binding metho 3.5-5.7 [facility] Alkaline phosphatase [Enzyma tic activity/volume] in Serum or PlasmaOrdered By: Paramjit Yanes on 06-29-2024 ALP [Catalytic activity/Vol] 43 U/L Normal 34-104 [facility] Comment on above: Performed By: #### E CAPO, CBC, CMP ####[facility] [id number] [place] [id number] [facility] ALP [Catalytic activity/Vol] Alkaline phosphatase [Enzymatic activity/volume] in Serum or Plasma 34-104 [facility] Amphetamine Screen Ql (U)Ord ered By: Paramjit Gallegossarah on 06-29-2024 Amphetamines Ql (U) Amphetamines screen Negativ e [facility] Amphetamines Ql (U) Negative Negative [facility] Appearance of UrineOrdered B y: Paramjit Gallegossarah on 06-29-2024 Appearance (U) Urine appearance Clear [facility] Aspartate aminotransferase [ Enzymatic activity/volume] in Serum or PlasmaOrdered By: Paramjit Farzana on 06-29-2024 AST [Catalytic activity/Vol] 15 U/L Normal 13-39 [facility] Comment on above: Performed By: #### E CAPO, CBC, CMP ####[place] [address] [address] AST [Catalytic activity/Vol] Aspartate aminotransferase [Enzymatic activity/volume] in Serum or Plasma [facility] Automated basophil %Ordered By: Paramjit Yanse on 06-29-2024 Basophils/100 WBC (Bld) 0.6 % Normal . F [facility] Comment on above: Performed By: #### E CAPO, CBC, CMP ####[facility] [id number] Automated basophil countOrde red By: Paramjit Yanes on 06-29-2024 Basophils (Bld) [#/Vol] 0.0 10*3/uL Normal 0.0-0.2 [facility] Comment on above: Result Comment: PERF ORMED BY: [facility] [address] [place] [id number] PATHOLOGIST MEDICAL LOGISTICS SPECIALIST KIERSTEN BYNUM M.D. Performed By: #### E CAPO, CBC, CMP ####[facility] [id number] Automated blood monocyte cou ntOrdered By: Paramjit Yanes on 06-29-2024 Monocytes (Bld) [#/Vol] 0.3 10*3/uL Normal 0.0-0.8 [facility] Comment on above: Performed By: #### E CAPO, CBC, CMP ####[place] [address] [address] Automated eosinophil %Ordere d By: Paramjit Yanes on 06-29-2024 Eosinophils/100 WBC (Bld) 4.2 % Normal . [facility] Comment on above: Performed By: #### E CAPO, CBC, CMP ####[address] Automated eosinophil countOr dered By: Paramjit Yanes on 06-29-2024 Eosinophils (Bld) [#/Vol] 0.3 10*3/uL Normal 0.0-0.45 [facility] Comment on above: Performed By: #### E CAPO, CBC, CMP ####[address] Automated monocyte %Ordered By: Paramjit Yanes on 06-29-2024 Monocytes/100 WBC (Bld) 4.8 % Normal . F [facility] Comment on above: Performed By: #### E CAPO, CBC, CMP ####[address] Automated neutrophil %Ordere d By: Paramjit Yanes on 06-29-2024 Neutrophils/100 WBC (Bld) 68.1 % Normal . [facility] Comment on above: Performed By: #### E CAPO, CBC, CMP ####[address] Bacteria [Presence] in Urine by AutomatedOrdered By: Paramjit Yanes on 06-29-2024 Bacteria Auto Ql (U) Rare [HPF] None Seen [facility] Bacteria Auto Ql (U) Bacteria [Presence] in Urine by Automated None Seen [facility] Barbiturates [Presence] in U rine by Screen methodOrdered By: Paramjit Yanes on 06-29-2024 Barbiturates Screen Ql (U) Negative Negative [facility] Barbiturates Screen Ql (U) Barbiturates [Presence] in Urine by Screen method Negative [facility] Basophils Auto (Bld) [#/Vol] Ordered By: Paramjit Yanes on 06-29-2024 Basophils (Bld) [#/Vol] Automated basophil count 0.0-0.2 [facility] Basophils/100 WBC Auto (Bld) Ordered By: Paramjit Yanes on 06-29-2024 Basophils/100 WBC (Bld) Automated basophil % . [facility] Benzodiazepines Screen Ql (U )Ordered By: Paramjit Yanes on 06-29-2024 Benzodiazepines Ql (U) Negative Negative [facility] Benzodiazepines Ql (U) Benzodiazepines [ Presence] in Urine by Screen method Negative [facility] Benzoylecgonine [Presence] i n Urine by Screen methodOrdered By: Paramjit Yanes on 06-29-2024 Benzoylecgonine Screen Ql (U) Negative Negative [facility] Benzoylecgonine Screen Ql (U) Benzoylecgonine [Presence] in Urine by Screen method Negative [facility] Bilirubin Test strip Ql (U)O rdered By: Paramjit Yanes on 06-29-2024 Bilirubin Ql (U) Negative Negative [facility] Bilirubin Ql (U) Bilirubin.total [Pre sence] in Urine by Test strip Negative [facility] Bilirubin.total [Mass/volume ] in Serum or PlasmaOrdered By: Paramjit Yanes on 06-29-2024 Bilirubin [Mass/Vol] 0.8 mg/dL Normal 0.3-1.0 [facility] Comment on above: Performed By: #### E CAPO, CBC, CMP ####[facility] [id number] Bilirubin [Mass/Vol] Bilirubin.total [Mass/volume] in Serum or Plasma 0.3-1.0 [facility] Calcium [Mass/volume] in Ser um or PlasmaOrdered By: Paramjit Yanes on 06-29-2024 Calcium [Mass/Vol] 10.2 mg/dL Normal 8.6-10.3 [facility] Comment on above: Performed By: #### E CAPO, CBC, CMP ####[facility] [id number] [place] [id number] [facility] Calcium [Mass/Vol] Calcium [Mass/volume ] in Serum or Plasma 8.6-10.3 [facility] Cannabinoids [Presence] in U rine by Screen methodOrdered By: Paramjit Yanes on 06-29-2024 Cannabinoids Screen Ql (U) Positive High Negative [facility] Comment on above: These are unconfirme d results and should not be used for legal purposes. Drug Cut-Off Concentration: AMPH 1000 ng/mL VENKATA 200 ng/mL BREANNA 200 ng/mL COCM 300 ng/mL OP 300 ng/mL PCP 25 ng/mL THC 20 ng/mL Cannabinoids Screen Ql (U) Cannabinoids [Presence] in Urine by Screen method High Negative [facility] Comment on above: These are unconfirme d results and should not be used for legal purposes. Drug Cut-Off Concentration: AMPH 1000 ng/mL VENKATA 200 ng/mL BREANNA 200 ng/mL COCM 300 ng/mL OP 300 ng/mL PCP 25 ng/mL THC 20 ng/mL Carbon dioxide, total [Moles /volume] in Serum or PlasmaOrdered By: Paramjit Yanes on 06-29-2024 CO2 [Moles/Vol] 28.6 mmol/L Normal 21.0-31.0 [facility] Comment on above: Performed By: #### E CAPO, CBC, CMP ####[facility] [id number] [place] [id number] [facility] CO2 [Moles/Vol] Carbon dioxide, tota l [Moles/volume] in Serum or Plasma 21.0-31.0 [facility] Chloride [Moles/volume] in S isabel or PlasmaOrdered By: Paramjit Yanes on 06-29-2024 Chloride [Moles/Vol] 105 mmol/L Normal 98-107 [facility] Comment on above: Performed By: #### E CAPO, CBC, CMP ####[facility] [id number] [place] [id number] [place] Chloride [Moles/Vol] Chloride [Moles/vol ume] in Serum or Plasma 98-107 [facility] Color Auto (U)Ordered By: Sarah Yanes on 06-29-2024 Color (U) Color of Urine by Auto Yellow [facility] Color of Urine by AutoOrdere d By: Paramjit Yanes on 06-29-2024 Color (U) Yellow Normal Yellow [facility] Comment on above: Order Comment: Name Collection Type:: Clean-Voided Midstream Performed By: #### U HCG, URDS, ADDONUAPLUS #### [facility] [address] Complete Blood Count Auto Di ffon 06-29-2024 Mean Corpuscular HGB Conc 34.6 g/dL Normal 32.0-35.0 [facility] Comment on above: Performed By: #### E CAPO, CBC, CMP ####[place] [address] [address] Monocytes/100 WBC (Bld) 17.44 % Normal 0.00-20.00 [facility] Comment on above: Performed By: #### E CAPO, CBC, CMP ####[place] [address] NRBC% 0.0 /100{WBC} Normal 0-0.5 [facility] Comment on above: Performed By: #### E CAPO, CBC, CMP ####[place] [address] [address] Comprehensive Metabolic Pane haseeb 06-29-2024 Albumin [Mass/Vol] 5.1 g/dL Normal 3.5-5.7 [facility] Comment on above: Performed By: #### E CAPO, CBC, CMP ####[address] Creatinine Clr Calc Pharmacy 91.90 Normal [facility] Comment on above: Result Comment: PERF ORMED BY: [place] [address] PATHOLOGIST MEDICAL LOGISTICS SPECIALIST KIERSTEN BYNUM M.D. Performed By: #### E CAPO, CBC, CMP ####[place] [address] [address] GFR/1.73 sq M.predicted MDRD (S/P/Bld) [Vol rate/Area] mL/min/{1.73_m2} Normal [facility] Comment on above: Performed By: #### E CAPO, CBC, CMP ####[facility] [id number] Creatinine [Mass/volume] in Serum or PlasmaOrdered By: Paramjit Yanes on 06-29-2024 Creatinine [Mass/Vol] 0.62 mg/dL Normal 0.60-1.20 [facility] Comment on above: Performed By: #### E CAPO, CBC, CMP ####[facility] Creatinine [Mass/Vol] Creatinine [Mass/v olume] in Serum or Plasma 0.60-1.20 [facility] Dipstick and Microscopicon 1 Bacteria,Urine Rare Normal None Seen [facility] Comment on above: Order Comment: Name Collection Type:: Clean-Voided Midstream Performed By: #### U HCG, URDS, ADDONUAPLUS #### [facility] [address] Bilirubin,Urine Negative Normal Negative [facility] Comment on above: Order Comment: Name Collection Type:: Clean-Voided Midstream Performed By: #### U HCG, URDS, ADDONUAPLUS #### [facility] [address] Glucose Ql (U) Normal Normal Normal [facility] Comment on above: Order Comment: Name Collection Type:: Clean-Voided Midstream Performed By: #### U HCG, URDS, ADDONUAPLUS #### [facility] [address] Hyaline Casts,Urine None Normal 0-8 [facility] Comment on above: Order Comment: Name Collection Type:: Clean-Voided Midstream Performed By: #### U HCG, URDS, ADDONUAPLUS #### [facility] [address] Mucus,Urine 4+ Critically abnormal [facility] Comment on above: Order Comment: Name Collection Type:: Clean-Voided Midstream Performed By: #### U HCG, URDS, ADDONUAPLUS #### [address] Nitrite,Urine Negative Normal Negative [facility] Comment on above: Order Comment: Name Collection Type:: Clean-Voided Midstream Performed By: #### U HCG, URDS, ADDONUAPLUS #### [address] Occult Blood,Urine Negative Normal Negative [facility] Comment on above: Order Comment: Name Collection Type:: Clean-Voided Midstream Performed By: #### U HCG, URDS, ADDONUAPLUS #### [address] RBC,Urine 1-2 Normal 0-4 [facility] Comment on above: Order Comment: Name Collection Type:: Clean-Voided Midstream Performed By: #### U HCG, URDS, ADDONUAPLUS #### [address] Specificy Benedict,Urine 1.026 Normal 1.00 1-1.03 0 [facility] Comment on above: Order Comment: Name Collection Type:: Clean-Voided Midstream Performed By: #### U HCG, URDS, ADDONUAPLUS #### [address] Squamous Epithelial Cell,Urine 1-2 Normal 0-2 [facility] Comment on above: Order Comment: Name Collection Type:: Clean-Voided Midstream Performed By: #### U HCG, URDS, ADDONUAPLUS #### [address] Urobilinogen,Urine Normal Normal Normal [facility] Comment on above: Order Comment: Name Collection Type:: Clean-Voided Midstream Performed By: #### U HCG, URDS, ADDONUAPLUS #### [address] WBC,Urine 1-2 Normal 0-4 [facility] Comment on above: Order Comment: Name Collection Type:: Clean-Voided Midstream Performed By: #### U HCG, URDS, ADDONUAPLUS #### [address] Drug Screen,Urineon 06-29-20 24 Amphetamine Screen,Urine Negative Normal Negative [facility] Comment on above: Performed By: #### U HCG, URDS, ADDONUAPLUS #### [address] Barbiturate Screen,Urine Negative Normal Negative [facility] Comment on above: Performed By: #### U HCG, URDS, ADDONUAPLUS #### [address] Benzodiazepines Screen,Urine Negative Normal Negative [facility] Comment on above: Performed By: #### U HCG, URDS, ADDONUAPLUS #### [address] Cannabinoid Screen,Urine Positive High Negative [facility] Comment on above: Result Comment: Thes e are unconfirmed results and should not be used for legal purposes. Drug Cut-Off Concentration: AMPH 1000 ng/mL VENKATA 200 ng/mL BREANNA 200 ng/mL COCM 300 ng/mL OP 300 ng/mL PCP 25 ng/mL THC 20 ng/mL PERFORMED BY: [place] [address] PATHOLOGIST MEDICAL LOGISTICS SPECIALIST KIERSTEN BYNUM M.D. Performed By: #### U HCG, URDS, ADDONUAPLUS #### [place] [address] [place] Cocaine Screen,Urine Negative Normal Negative [facility] Comment on above: Performed By: #### U HCG, URDS, ADDONUAPLUS #### [place] [address] [place] Opiate Screen,Urine Negative Normal Negative [facility] Comment on above: Performed By: #### U HCG, URDS, ADDONUAPLUS #### [address] Phencyclidine Screen,Urine Negative Normal Negative [facility] Comment on above: Performed By: #### U HCG, URDS, ADDONUAPLUS #### [address] [place] [address] [place] Eosinophils Auto (Bld) [#/Vo l]Ordered By: Paramjit Yanes on 06-29-2024 Eosinophils (Bld) [#/Vol] Automated eosinophil count 0.0-0.45 [facility] Eosinophils/100 WBC Auto (Bl d)Ordered By: Paramjit Yanes on 06-29-2024 Eosinophils/100 WBC (Bld) Automated eosinophil % . [facility] Epithelial cells.squamous [# /area] in Urine sediment by Automated countOrdered By: Paramjit Yanes on 06-29-2024 Epithelial cells.squamous Auto (Urine sed) [#/Area] 1-2 [HPF] 0-2 [facility] Epithelial cells.squamous Auto (Urine sed) [#/Area] Epithelial cells.squamous [#/area] in Urine sediment by Automated count 0-2 [facility] Erythrocyte distribution wid th Auto (RBC) [Ratio]Ordered By: Paramjit Yanes on 06-29-2024 Erythrocyte distribution width (RBC) [Ratio] Erythrocyte distribution width [Ratio] by Automated count 11.9-15.3 [facility] Erythrocyte distribution wid th [Ratio] by Automated countOrdered By: Paramjit Yanes on 06-29-2024 Erythrocyte distribution width (RBC) [Ratio] 13.0 % Normal 11.9-15.3 [facility] Comment on above: Performed By: #### E CAPO, CBC, CMP ####[facility] [id number] Erythrocytes [#/area] in Uri ne sediment by Automated countOrdered By: Paramjit Yanes on 06-29-2024 RBC Auto (Urine sed) [#/Area] 1-2 [HPF] 0-4 [facility] RBC Auto (Urine sed) [#/Area] Erythrocytes [#/area] in Urine sediment by Automated count 0-4 [facility] Erythrocytes [#/volume] in B lood by Automated countOrdered By: Paramjit Yanes on 06-29-2024 RBC (Bld) [#/Vol] 4.85 10*6/uL Normal 3.60-5.00 [facility] Comment on above: Performed By: #### E CAPO CBC, CMP ####[facility] [place] [address] [facility] Ethanol [Mass/volume] in Ser um or PlasmaOrdered By: Paramjit Yanes on 06-29-2024 Ethanol [Mass/Vol] mg/dL Normal [facility] Comment on above: Performed By: #### E CAPO CBC, CMP ####[facility] [place] [address] [facility] Ethanol [Mass/Vol] TNP [facility] Comment on above: Test not performed Ethanol [Mass/Vol] Ethanol [Mass/volume ] in Serum or Plasma [facility] Comment on above: Test not performed Ethyl Alcohol Profileon 06-10 Percent Ethanol Not performed Normal [facility] Comment on above: Result Comment: PERF ORMED BY: [facility] [address] [place] [place] [id number] PATHOLOGIST MEDICAL LOGISTICS SPECIALIST KIERSTEN BYNUM M.D. Performed By: #### E CAPO CBC, CMP ####[place] [address] [place] [address] [facility] Globulin Calc (S) [Mass/Vol] Ordered By: Paramjit Yanes on 06-29-2024 Globulin (S) [Mass/Vol] Serum globulin m easurement by calculation (mass/volume) [facility] Glucose [Mass/volume] in Ser um or PlasmaOrdered By: Paramjit Yanes on 06-29-2024 Glucose [Mass/Vol] 86 mg/dL Normal 70-100 [facility] Comment on above: ADA recommended refe rence rangeRandom Glucose Reference Range is dependent on time and content of last meal. Glucose of more than 200 mg/dL in a nonstressed, ambulatory subject supports the diagnosis of Diabetes Mellitus. Result Comment: [place] om Glucose Reference Range is dependent on time and content of last meal. Glucose of more than 200 mg/dL in a nonstressed, ambulatory subject supports the diagnosis of Diabetes Mellitus. ADA recommended reference range Performed By: #### E CAPO CBC, CMP ####[facility] [place] [address] [place] Glucose [Mass/Vol] Glucose [Mass/volume ] in Serum or Plasma 70-100 [facility] Comment on above: ADA recommended refe rence rangeRandom Glucose Reference Range is dependent on time and content of last meal. Glucose of more than 200 mg/dL in a nonstressed, ambulatory subject supports the diagnosis of Diabetes Mellitus. Glucose [Mass/volume] in Uri ne by Test stripOrdered By: Paramjit Yanes on 06-29-2024 Glucose Test strip (U) [Mass/Vol] Normal mg/dL Normal [facility] Glucose Test strip (U) [Mass/Vol] Glucose [Mass/volume] in Urine by Test strip Normal [facility] HCG ( test) [place].rapi d Ql (U)Ordered By: Paramjit Yanes on 06-29-2024 HCG ( test) Ql (U) Negative [facility] HCG ( test) Ql (U) Urine human chorionic gonadotropin (hCG) detection by immunoassay [facility] HCG,Urineon 06-29-2024 Beta HCG ( test) Ql (U) Negative Normal [facility] Comment on above: Order Comment: Name Collection Type:: Clean-Voided Midstream Result Comment: PERF ORMED BY: [facility] [address] [place] [address] PATHOLOGIST MEDICAL LOGISTICS SPECIALIST KIERSTEN BYNUM M.D. Performed By: #### U HCG, URDS, ADDONUAPLUS #### [facility] [address] Hematocrit Auto (Bld) [Volum e fraction]Ordered By: Paramjit Yanes on 06-29-2024 Hematocrit (Bld) [Volume fraction] Hematocrit [Volume Fraction] of Blood by Automated count 34.0-46.4 [facility] Hematocrit [Volume Fraction] of Blood by Automated countOrdered By: Paramjit Yanes on 06-29-2024 Hematocrit (Bld) [Volume fraction] 42.2 % Normal 34.0-46.4 [facility] Comment on above: Performed By: #### E CAPO, CBC, CMP ####[facility] [id number] [address] Hemoglobin Test strip Ql (U) Ordered By: Paramjit Yanes on 06-29-2024 Hemoglobin Ql (U) Negative Negative [facility] Hemoglobin Ql (U) Hemoglobin [Presence ] in Urine by Test strip Negative [facility] Hemoglobin [Mass/volume] in BloodOrdered By: Paramjit Yanes on 06-29-2024 Hemoglobin (Bld) [Mass/Vol] 14.6 g/dL Normal 11.8-15.4 [facility] Comment on above: Performed By: #### E CAPO, CBC, CMP ####[facility] [id number] Hemoglobin (Bld) [Mass/Vol] Hemoglobin [Mass/volume] in Blood 11.8-15.4 [facility] Hyaline casts [#/area] in Ur ine sediment by Automated countOrdered By: Paramjit Yanes on 06-29-2024 Hyaline casts Auto (Urine sed) [#/Area] None [LPF] 0-8 [facility] Hyaline casts Auto (Urine sed) [#/Area] Hyaline casts [#/area] in Urine sediment by Automated count 0-8 [facility] Ketones Test strip Ql (U)Ord ered By: Paramjit Yanes on 06-29-2024 Ketones Ql (U) Ketones [Presence] i n Urine by Test strip Negative [facility] Ketones [Presence] in Urine by Test stripOrdered By: Paramjit Yanes on 06-29-2024 Ketones Ql (U) Negative Normal Negative [facility] Comment on above: Order Comment: Name Collection Type:: Clean-Voided Midstream Performed By: #### U HCG, URDS, ADDONUAPLUS #### [facility] [address] [place] [address] [place] Leukocyte esterase [Presence ] in Urine by Test stripOrdered By: Paramjit Yanes on 06-29-2024 Leukocyte esterase Test strip Ql (U) Negative Normal Negative [facility] Comment on above: Order Comment: Name Collection Type:: Clean-Voided Midstream Performed By: #### U HCG, URDS, ADDONUAPLUS #### [facility] [address] Leukocyte esterase Test strip Ql (U) Leukocyte esterase [Presence] in Urine by Test strip Negative [facility] Leukocytes [#/area] in Urine sediment by Automated countOrdered By: Paramjit Yanes on 06-29-2024 WBC Auto (Urine sed) [#/Area] 1-2 [HPF] 0-4 [facility] WBC Auto (Urine sed) [#/Area] Leukocytes [#/area] in Urine sediment by Automated count 0-4 [facility] Leukocytes [#/volume] correc michael for nucleated erythrocytes in Blood by Automated counOrdered By: Paramjit Yanes on 06-29-2024 WBC corrected for nucl RBC Auto (Bld) [#/Vol] 7.3 10*3/uL 3.8-11.6 [facility] WBC corrected for nucl RBC Auto (Bld) [#/Vol] Leukocytes [#/volume] corrected for nucleated erythrocytes in Blood by Automated coun 3.8-11.6 [facility] Leukocytes [#/volume] in Blo od by Automated countOrdered By: Paramjit Yanes on 06-29-2024 WBC (Bld) [#/Vol] 7.3 10*3/uL Normal 3.8-11.6 [facility] Comment on above: Performed By: #### E CAPO, CBC, CMP ####[facility] [id number] [address] Lymphocytes Auto (Bld) [#/Vo l]Ordered By: Paramjit Yanes on 06-29-2024 Lymphocytes (Bld) [#/Vol] Lymphocytes [#/volume] in Blood by Automated count 1.00-4.8 [facility] Lymphocytes [#/volume] in Bl ood by Automated countOrdered By: Paramjit Yanes on 06-29-2024 Lymphocytes (Bld) [#/Vol] 1.6 10*3/uL Normal 1.00-4.8 [facility] Comment on above: Performed By: #### E CAPO, CBC, CMP ####[facility] [id number] [address] Lymphocytes/100 WBC Auto (Bl d)Ordered By: Paramjit Yanes on 06-29-2024 Lymphocytes/100 WBC (Bld) Lymphocytes/100 leukocytes in Blood by Automated count . [facility] Lymphocytes/100 leukocytes i n Blood by Automated countOrdered By: Paramjit Yanes on 06-29-2024 Lymphocytes/100 WBC (Bld) 22.3 % Normal . [facility] Comment on above: Performed By: #### E CAOP, CBC, CMP ####[facility] [id number] [address] MCH Auto (RBC) [Entitic mass ]Ordered By: Paramjit Yanes on 06-29-2024 MCH (RBC) [Entitic mass] MCH [Entitic mass] by Automated count 24.7-34.3 [facility] MCH [Entitic mass] by Automa michael countOrdered By: Paramjit Yanes on 06-29-2024 MCH (RBC) [Entitic mass] 30.1 pg Normal 24.7-34.3 [facility] Comment on above: Performed By: #### E CAPO, CBC, CMP ####[facility] [id number] [place] [address] MCHC Auto (RBC) [Mass/Vol]Or dered By: Paramjit Yanes on 06-29-2024 MCHC (RBC) [Mass/Vol] 34.6 g/dL 32.0-35.0 [facility] MCHC (RBC) [Mass/Vol] MCHC [Mass/volume] by Automated count 32.0-35.0 [facility] MCV Auto (RBC) [Entitic vol] Ordered By: Paramjit Yanes on 06-29-2024 MCV (RBC) [Entitic vol] MCV [Entitic vol ume] by Automated count 80-100 [facility] MCV [Entitic volume] by Auto mated countOrdered By: Paramjit Yanes on 06-29-2024 MCV (RBC) [Entitic vol] 87.2 fL Normal 80-100 [facility] Comment on above: Performed By: #### E CAPO, CBC, CMP ####[address] Monocyte distribution width [Entitic volume] in Blood by AutomatedOrdered By: Paramjit Yanes on 06-29-2024 Monocyte distribution width Auto (Bld) [Entitic vol] 17.44 % 0.00-20.00 [facility] Monocyte distribution width Auto (Bld) [Entitic vol] Monocyte distribution width [Entitic volume] in Blood by Automated 0.00-20.00 [facility] Monocytes Auto (Bld) [#/Vol] Ordered By: Paramjit Yanes on 06-29-2024 Monocytes (Bld) [#/Vol] Automated blood monocyte count 0.0-0.8 [facility] Monocytes/100 WBC Auto (Bld) Ordered By: Paramjit Yanes on 06-29-2024 Monocytes/100 WBC (Bld) Automated monocyte % . [facility] Mucus [Presence] in Urine by AutomatedOrdered By: Paramjit Yanes on 06-29-2024 Mucus Auto Ql (U) 4+ [LPF] Abnormal [facility] Mucus Auto Ql (U) Mucus [Presence] in Urine by Automated Abnormal [facility] Neutrophils Auto (Bld) [#/Vo l]Ordered By: Paramjit Yanes on 06-29-2024 Neutrophils (Bld) [#/Vol] Neutrophils [#/volume] in Blood by Automated count 1.8-7.7 [facility] Neutrophils [#/volume] in Bl ood by Automated countOrdered By: Paramjit Yanes on 06-29-2024 Neutrophils (Bld) [#/Vol] 5.0 10*3/uL Normal 1.8-7.7 [facility] Comment on above: Performed By: #### E CAPO, CBC, CMP ####[facility] [id number] [place] [address] [facility] Neutrophils/100 WBC Auto (Bl d)Ordered By: Paramjit Yanes on 06-29-2024 Neutrophils/100 WBC (Bld) Automated neutrophil % . [facility] Nitrite Test strip Ql (U)Ord ered By: Paramjit Yanes on 06-29-2024 Nitrite Ql (U) Negative Negative [facility] Nitrite Ql (U) Nitrite [Presence] i n Urine by Test strip Negative [facility] No Panel InformationOrdered By: Paramjit Yanes on 06-29-2024 Estimated GFR (CKD-EPI) > 60.0 mL/Min [facility] Creatinine Clearance (Chem 91.90 [facility] Nucleated erythrocytes [Pres ence] in Blood by Automated countOrdered By: Paramjit Yanes on 06-29-2024 Nucleated RBC Auto Ql (Bld) 0.0 /100{WBC} 0-0.5 [facility] Nucleated RBC Auto Ql (Bld) Nucleated erythrocytes [Presence] in Blood by Automated count 0-0.5 [facility] Opiates [Presence] in Urine by Screen methodOrdered By: Paramjit Yanes on 06-29-2024 Opiates Screen Ql (U) Negative Negative [facility] Opiates Screen Ql (U) Opiates [Presence] in Urine by Screen method Negative [facility] Phencyclidine Screen Ql (U)O rdered By: Paramjit Yanes on 06-29-2024 Phencyclidine Ql (U) Negative Negative [facility] Phencyclidine Ql (U) Phencyclidine [Pres ence] in Urine by Screen method Negative [facility] Platelet mean volume Auto (B ld) [Entitic vol]Ordered By: Paramjit Yanes on 06-29-2024 Platelet mean volume (Bld) [Entitic vol] Platelet mean volume [Entitic volume] in Blood by Automated count 6.3-10.7 [facility] Platelet mean volume [Entiti c volume] in Blood by Automated countOrdered By: Paramjit Yanes on 06-29-2024 Platelet mean volume (Bld) [Entitic vol] 7.6 fL Normal 6.3-10.7 [facility] Comment on above: Performed By: #### E CAPO, CBC, CMP ####[facility] [id number] [place] [id number] [facility] Platelets Auto (Bld) [#/Vol] Ordered By: Paramjit Yanes on 06-29-2024 Platelets (Bld) [#/Vol] Platelets [#/vol ume] in Blood by Automated count 150-450 [facility] Platelets [#/volume] in Bloo d by Automated countOrdered By: Paramjit Yanes on 06-29-2024 Platelets (Bld) [#/Vol] 278 10*3/uL Normal 150-450 [facility] Comment on above: Performed By: #### E CAPO, CBC, CMP ####[facility] [id number] [address] Potassium [Moles/volume] in Serum or PlasmaOrdered By: Paramjit Yanes on 06-29-2024 Potassium [Moles/Vol] 4.1 mmol/L Normal 3.5-5.1 [facility] Comment on above: Performed By: #### E CAPO, CBC, CMP ####[facility] [id number] [address] Potassium [Moles/Vol] Potassium [Moles/v olume] in Serum or Plasma 3.5-5.1 [facility] Protein Test strip (U) [Mass /Vol]Ordered By: Paramjit Yanes on 06-29-2024 Protein (U) [Mass/Vol] Protein [Mass/vol ume] in Urine by Test strip High Negative [facility] Protein [Mass/volume] in Ser um or PlasmaOrdered By: Paramjit Yanes on 06-29-2024 Protein [Mass/Vol] 8.1 g/dL Normal 6.4-8.9 [facility] Comment on above: Performed By: #### E CAPO, CBC, CMP ####[facility] Protein [Mass/Vol] Protein [Mass/volume ] in Serum or Plasma 6.4-8.9 [facility] Protein [Mass/volume] in Uri ne by Test stripOrdered By: Paramjit Yanes on 06-29-2024 Protein (U) [Mass/Vol] 20 mg/dL High Negative [facility] Comment on above: Order Comment: Name Collection Type:: Clean-Voided Midstream Performed By: #### U HCG, URDS, ADDONUAPLUS #### [facility] [address] RBC Auto (Bld) [#/Vol]Ordere d By: Paramjit Yanes on 06-29-2024 RBC (Bld) [#/Vol] Erythrocytes [#/volu me] in Blood by Automated count 3.60-5.00 [facility] Serum globulin measurement b y calculation (mass/volume)Ordered By: Paramjit Yanes on 06-29-2024 Globulin (S) [Mass/Vol] 3.0 g/dL Normal F [facility] Comment on above: Performed By: #### E CAPO CBC, CMP ####[place] [address] Serum or plasma albumin/glob ulin mass ratioOrdered By: Paramjit Yanes on 06-29-2024 Albumin/Globulin [Mass ratio] 1.7 {ratio} Normal [facility] Comment on above: Performed By: #### E CAPO CBC, CMP ####[address] Albumin/Globulin [Mass ratio] Serum or plasma albumin/globulin mass ratio [facility] Serum or plasma anion gap de terminationOrdered By: Paramjit Yanes on 06-29-2024 Anion gap [Moles/Vol] 8.5 mmol/L Normal 6.0-15.0 [facility] Comment on above: Performed By: #### E CAPO CBC, CMP ####[address] Anion gap [Moles/Vol] Serum or plasma an ion gap determination 6.0-15.0 [facility] Sodium [Moles/volume] in Ser um or PlasmaOrdered By: Paramjit Yanes on 06-29-2024 Sodium [Moles/Vol] 138 mmol/L Normal 136-145 [facility] Comment on above: Performed By: #### E CAPO CBC, CMP ####[place] [address] Sodium [Moles/Vol] Sodium [Moles/volume ] in Serum or Plasma 136-145 [facility] Specific gravity Test strip (U) [Rel density]Ordered By: Paramjit Yanes on 06-29-2024 Specific gravity (U) [Rel density] 1.026 1.001-1.03 0 [facility] Specific gravity (U) [Rel density] Specific gravity of Urine by Test strip 1.001-1.03 0 [facility] Urea nitrogen [Mass/volume] in Serum or PlasmaOrdered By: Paramjit Yanes on 06-29-2024 Urea nitrogen [Mass/Vol] 9 mg/dL Normal 04-02 [facility] Comment on above: Performed By: #### E CAPO, CBC, CMP ####[facility] [id number] [address] Urea nitrogen [Mass/Vol] Urea nitrogen [Mass/volume] in Serum or Plasma 04-02 [facility] Urine appearanceOrdered By: Paramjit Yanes on 06-29-2024 Appearance (U) Clear Normal Clear [facility] Comment on above: Order Comment: Name Collection Type:: Clean-Voided Midstream Performed By: #### U HCG, URDS, ADDONUAPLUS #### [facility] [address] Urobilinogen Test strip (U) [Mass/Vol]Ordered By: Paramjit Yanes on 06-29-2024 Urobilinogen (U) [Mass/Vol] Normal mg/dL Normal [facility] Urobilinogen (U) [Mass/Vol] Urobilinogen [Mass/volume] in Urine by Test strip Normal [facility] WBC Auto (Bld) [#/Vol]Ordere d By: Paramjit Yanes on 06-29-2024 WBC (Bld) [#/Vol] Leukocytes [#/volume ] in Blood by Automated count 3.8-11.6 [facility] pH Test strip (U)Ordered By: Paramjit Yanes on 06-29-2024 pH (U) pH of Urine by Test strip 5.0-9.0 [facility] pH of Urine by Test stripOrd ered By: Paramjit Yanes on 06-29-2024 pH (U) 6.5 [pH] Normal 5.0-9.0 [facility] Comment on above: Order Comment: Name Collection Type:: Clean-Voided Midstream Performed By: #### U HCG, URDS, ADDONUAPLUS #### [facility] [address] Alanine aminotransferase [En zymatic activity/volume] in Serum or PlasmaOrdered By: Derek Phipps on 04-17-2024 ALT [Catalytic activity/Vol] 8 U/L Normal 7-52 [facility] Comment on above: Performed By: #### H EPATIC, LIPASE, CBC, BMP ####[place] [address] Albumin [Mass/volume] in Ser um or Plasma by Bromocresol green (BCG) dye binding methoOrdered By: Derek Phipps on 04-17-2024 Albumin BCG dye [Mass/Vol] 4.7 g/dL 3.5-5.7 [facility] Alkaline phosphatase [Enzyma tic activity/volume] in Serum or PlasmaOrdered By: Derek Phipps on 04-17-2024 ALP [Catalytic activity/Vol] 40 U/L Normal 34-104 [facility] Comment on above: Performed By: #### H EPATIC, LIPASE, CBC, BMP ####[address] Amphetamine Screen Ql (U)Ord ered By: Derek Phipps on 04-17-2024 Amphetamines Ql (U) Negative Negative [facility] Aspartate aminotransferase [ Enzymatic activity/volume] in Serum or PlasmaOrdered By: Derek Phipps on 04-17-2024 AST [Catalytic activity/Vol] 15 U/L Normal 13-39 [facility] Comment on above: Performed By: #### H EPATIC, LIPASE, CBC, BMP ####[place] [address] Automated basophil %Ordered By: Derek Phipps on 04-17-2024 Basophils/100 WBC (Bld) 0.3 % Normal . [facility] Comment on above: Performed By: #### H EPATIC, LIPASE, CBC, BMP ####[place] [address] Automated basophil countOrde red By: Derek Phipps on 04-17-2024 Basophils (Bld) [#/Vol] 0.0 10*3/uL Normal 0.0-0.2 [facility] Comment on above: Result Comment: PERF ORMED BY: [facility] [address] [place] [address] PATHOLOGIST MEDICAL LOGISTICS SPECIALIST KIERSTEN BYNUM M.D. Performed By: #### H EPATIC, LIPASE, CBC, BMP ####[address] Automated blood monocyte cou ntOrdered By: Derek Phipps on 04-17-2024 Monocytes (Bld) [#/Vol] 0.3 10*3/uL Normal 0.0-0.8 [facility] Comment on above: Performed By: #### H EPATIC, LIPASE, CBC, BMP ####[address] Automated eosinophil %Ordere d By: Derek Phipps on 04-17-2024 Eosinophils/100 WBC (Bld) 1.8 % Normal . [facility] Comment on above: Performed By: #### H EPATIC, LIPASE, CBC, BMP ####[address] Automated eosinophil countOr dered By: Derek Phipps on 04-17-2024 Eosinophils (Bld) [#/Vol] 0.2 10*3/uL Normal 0.0-0.45 [facility] Comment on above: Performed By: #### H EPATIC, LIPASE, CBC, BMP ####[address] Automated monocyte %Ordered By: Derek Phipps on 04-17-2024 Monocytes/100 WBC (Bld) 3.4 % Normal . [facility] Comment on above: Performed By: #### H EPATIC, LIPASE, CBC, BMP ####[address] Automated neutrophil %Ordere d By: Derek Phipps on 04-17-2024 Neutrophils/100 WBC (Bld) 83.6 % Normal . [facility] Comment on above: Performed By: #### H EPATIC, LIPASE, CBC, BMP ####[address] Bacteria [Presence] in Urine by AutomatedOrdered By: Derek Phipps on 04-17-2024 Bacteria Auto Ql (U) None seen [HPF] None Seen [facility] Barbiturates [Presence] in U rine by Screen methodOrdered By: Derek Phipps on 04-17-2024 Barbiturates Screen Ql (U) Negative Negative [facility] Basic Metabolic Panelon Creatinine Clr Calc Pharmacy 94.59 Normal [facility] Comment on above: Performed By: #### H EPATIC, LIPASE, CBC, BMP ####[facility] [id number] [place] [id number] [facility] GFR/1.73 sq M.predicted MDRD (S/P/Bld) [Vol rate/Area] mL/min/{1.73_m2} Normal [facility] Comment on above: Performed By: #### H EPATIC, LIPASE, CBC, BMP ####[facility] [id number] [place] [id number] [facility] Benzodiazepines Screen Ql (U )Ordered By: Derek Phipps on 04-17-2024 Benzodiazepines Ql (U) Negative Negative [facility] Benzoylecgonine [Presence] i n Urine by Screen methodOrdered By: Derek Phipps on 04-17-2024 Benzoylecgonine Screen Ql (U) Negative Negative [facility] Bilirubin Test strip Ql (U)O rdered By: Derek Phipps on 04-17-2024 Bilirubin Ql (U) Negative Negative [facility] Bilirubin.direct [Mass/volum e] in Serum or PlasmaOrdered By: Derek Phipps on 04-17-2024 Bilirubin.direct [Mass/Vol] 0.10 mg/dL 0.03-0.18 [facility] Bilirubin.total [Mass/volume ] in Serum or PlasmaOrdered By: Derek Phipps on 04-17-2024 Bilirubin [Mass/Vol] 0.6 mg/dL Normal 0.3-1.0 [facility] Comment on above: Performed By: #### H EPATIC, LIPASE, CBC, BMP ####[facility] [facility] [id number] [place] [id number] [place] Calcium [Mass/volume] in Ser um or PlasmaOrdered By: Derek Phipps on 04-17-2024 Calcium [Mass/Vol] 9.5 mg/dL Normal 8.6-10.3 [facility] Comment on above: Performed By: #### H EPATIC, LIPASE, CBC, BMP ####[place] [address] [place] [id number] [facility] Cannabinoids [Presence] in U rine by Screen methodOrdered By: Derek Phipps on 04-17-2024 Cannabinoids Screen Ql (U) Positive High Negative [facility] Comment on above: These are unconfirme d results and should not be used for legal purposes. Drug Cut-Off Concentration: AMPH 1000 ng/mL VENKATA 200 ng/mL BREANNA 200 ng/mL COCM 300 ng/mL OP 300 ng/mL PCP 25 ng/mL THC 20 ng/mL Carbon dioxide, total [Moles /volume] in Serum or PlasmaOrdered By: Derek Phipps on 04-17-2024 CO2 [Moles/Vol] 29.5 mmol/L Normal 21.0-31.0 [facility] Comment on above: Performed By: #### H EPATIC, LIPASE, CBC, BMP ####[place] [address] [place] Chloride [Moles/volume] in S isabel or PlasmaOrdered By: Derek Phipps on 04-17-2024 Chloride [Moles/Vol] 105 mmol/L Normal 98-107 [facility] Comment on above: Performed By: #### H EPATIC, LIPASE, CBC, BMP ####[place] [id number] [facility] Color of Urine by AutoOrdere d By: Derek Phipps on 04-17-2024 Color (U) Yellow Normal Yellow [facility] Comment on above: Order Comment: Name Collection Type:: Clean-Voided Midstream Performed By: #### U HCG, ADDONUAPLUS, URDS ####[place] [id number] [facility] Complete Blood Count Auto Di ffon 04-17-2024 Mean Corpuscular HGB Conc 33.9 g/dL Normal 32.0-35.0 [facility] Comment on above: Performed By: #### H EPATIC, LIPASE, CBC, BMP ####[address] Monocytes/100 WBC (Bld) 19.53 % Normal 0.00-20.00 [facility] Comment on above: Performed By: #### H EPATIC, LIPASE, CBC, BMP ####[address] NRBC% 0.0 /100{WBC} Normal 0-0.5 [facility] Comment on above: Performed By: #### H EPATIC, LIPASE, CBC, BMP ####[address] Creatinine [Mass/volume] in Serum or PlasmaOrdered By: Derek Phipps on 04-17-2024 Creatinine [Mass/Vol] 0.62 mg/dL Normal 0.60-1.20 [facility] Comment on above: Performed By: #### H EPATIC, LIPASE, CBC, BMP ####[address] Dipstick and Microscopicon 0 04-17-2024 Bacteria,Urine None Seen Normal None Seen [facility] Comment on above: Order Comment: Name Collection Type:: Clean-Voided Midstream Performed By: #### U HCG, ADDONUAPLUS, URDS ####[address] Bilirubin,Urine Negative Normal Negative [facility] Comment on above: Order Comment: Name Collection Type:: Clean-Voided Midstream Performed By: #### U HCG, ADDONUAPLUS, URDS ####[address] Glucose Ql (U) Normal Normal Normal [facility] Comment on above: Order Comment: Name Collection Type:: Clean-Voided Midstream Performed By: #### U HCG, ADDONUAPLUS, URDS ####[place] [id number] [facility] Hyaline Casts,Urine None Normal 0-8 [facility] Comment on above: Order Comment: Name Collection Type:: Clean-Voided Midstream Performed By: #### U HCG, ADDONUAPLUS, URDS ####[address] [address] [facility] Mucus,Urine 4+ Critically abnormal [facility] Comment on above: Order Comment: Name Collection Type:: Clean-Voided Midstream Performed By: #### U HCG, ADDONUAPLUS, URDS ####[address] [address] [facility] Nitrite,Urine Negative Normal Negative [facility] Comment on above: Order Comment: Name Collection Type:: Clean-Voided Midstream Performed By: #### U HCG, ADDONUAPLUS, URDS ####[address] [address] [facility] Occult Blood,Urine Negative Normal Negative [facility] Comment on above: Order Comment: Name Collection Type:: Clean-Voided Midstream Performed By: #### U HCG, ADDONUAPLUS, URDS ####[address] [address] [facility] Protein,Urine Trace High Negative [facility] Comment on above: Order Comment: Name Collection Type:: Clean-Voided Midstream Performed By: #### U HCG, ADDONUAPLUS, URDS ####[address] [address] [facility] RBC,Urine 1-2 Normal 0-4 [facility] Comment on above: Order Comment: Name Collection Type:: Clean-Voided Midstream Performed By: #### U HCG, ADDONUAPLUS, URDS ####[address] [address] [facility] Specificy Benedict,Urine 1.020 Normal 1.00 1-1.03 0 [facility] Comment on above: Order Comment: Name Collection Type:: Clean-Voided Midstream Performed By: #### U HCG, ADDONUAPLUS, URDS ####[address] [address] [facility] Squamous Epithelial Cell,Urine 3-4 High 0-2 [facility] Comment on above: Order Comment: Name Collection Type:: Clean-Voided Midstream Performed By: #### U HCG, ADDONUAPLUS, URDS ####[place] [address] Urobilinogen,Urine Normal Normal Normal [facility] Comment on above: Order Comment: Name Collection Type:: Clean-Voided Midstream Performed By: #### U HCG, ADDONUAPLUS, URDS ####[address] WBC,Urine 1-2 Normal 0-4 [facility] Comment on above: Order Comment: Name Collection Type:: Clean-Voided Midstream Performed By: #### U HCG, ADDONUAPLUS, URDS ####[address] Drug Screen,Urineon 04-17-20 24 Amphetamine Screen,Urine Negative Normal Negative [facility] Comment on above: Performed By: #### U HCG, ADDONUAPLUS, URDS ####[address] Barbiturate Screen,Urine Negative Normal Negative [facility] Comment on above: Performed By: #### U HCG, ADDONUAPLUS, URDS ####[address] Benzodiazepines Screen,Urine Negative Normal Negative [facility] Comment on above: Performed By: #### U HCG, ADDONUAPLUS, URDS ####[address] Cannabinoid Screen,Urine Positive High Negative [facility] Comment on above: Result Comment: Thes e are unconfirmed results and should not be used for legal purposes. Drug Cut-Off Concentration: AMPH 1000 ng/mL VENKATA 200 ng/mL BREANNA 200 ng/mL COCM 300 ng/mL OP 300 ng/mL PCP 25 ng/mL THC 20 ng/mL PERFORMED BY: [facility] [address] [place] [address] PATHOLOGIST MEDICAL LOGISTICS SPECIALIST KIERSTEN BYNUM M.D. Performed By: #### U HCG, ADDONUAPLUS, URDS ####[facility] [id number] [place] [id number] [facility] Cocaine Screen,Urine Negative Normal Negative [facility] Comment on above: Performed By: #### U HCG, ADDONUAPLUS, URDS ####[facility] [address] [place] [address] [facility] Opiate Screen,Urine Negative Normal Negative [facility] Comment on above: Performed By: #### U HCG, ADDONUAPLUS, URDS ####[facility] [address] [place] [address] [facility] Phencyclidine Screen,Urine Negative Normal Negative [facility] Comment on above: Performed By: #### U HCG, ADDONUAPLUS, URDS ####[facility] [address] [place] [address] [facility] ECG 12 lead ECGon 04-17-2024 ECG 12 lead ECG [facility] [address] [place] [address] [place] [address] Electrocardiograph Report Signed Patient: Dawn Cuellar MR#: [id number] : 2000 Acct:[id number] Age/Sex: 24 / F ADM Date: 04/17/24 Loc: ER Room: Type: [facility] ER Attending Dr: Ordering Provider: Derek Phipps [...] Anterior leads Confirmed by Adilia Jeronimo MD ([id number]) on 04/17/2024 6:03:08 PM Referred By: Electronically Signed By: Adilia Jeronimo MD Transcribed By: MUS Signed By Adilia Jeronimo MD 06/02 1803 Normal [facility] Epithelial cells.squamous [# /area] in Urine sediment by Automated countOrdered By: Derek Phipps on 04-17-2024 Epithelial cells.squamous Auto (Urine sed) [#/Area] 3-4 [HPF] High 0-2 [facility] Erythrocyte distribution wid th [Ratio] by Automated countOrdered By: Derek Phipps on 04-17-2024 Erythrocyte distribution width (RBC) [Ratio] 13.0 % Normal 11.9-15.3 [facility] Comment on above: Performed By: #### H EPATIC, LIPASE, CBC, BMP ####[facility] [place] [address] [facility] Erythrocytes [#/area] in Uri ne sediment by Automated countOrdered By: Derek Phipps on 04-17-2024 RBC Auto (Urine sed) [#/Area] 1-2 [HPF] 0-4 [facility] Erythrocytes [#/volume] in B lood by Automated countOrdered By: Derek Phipps on 04-17-2024 RBC (Bld) [#/Vol] 4.66 10*6/uL Normal 3.60-5.00 [facility] Comment on above: Performed By: #### H EPATIC, LIPASE, CBC, BMP ####[place] [address] [place] [id number] [facility] Glucose [Mass/volume] in Ser um or PlasmaOrdered By: Derek Phipps on 04-17-2024 Glucose [Mass/Vol] 95 mg/dL Normal 70-100 [facility] Comment on above: ADA recommended refe rence rangeRandom Glucose Reference Range is dependent on time and content of last meal. Glucose of more than 200 mg/dL in a nonstressed, ambulatory subject supports the diagnosis of Diabetes Mellitus. Result Comment: [place] om Glucose Reference Range is dependent on time and content of last meal. Glucose of more than 200 mg/dL in a nonstressed, ambulatory subject supports the diagnosis of Diabetes Mellitus. ADA recommended reference range Performed By: #### H EPATIC, LIPASE, CBC, BMP ####[facility] [place] [address] [place] Glucose [Mass/volume] in Uri ne by Test stripOrdered By: Derek Phipps on 04-17-2024 Glucose Test strip (U) [Mass/Vol] Normal mg/dL Normal [facility] HCG ( test) IA.rapi d Ql (U)Ordered By: Derek Phipps on 04-17-2024 HCG ( test) Ql (U) Negative [facility] HCG,Urineon 04-17-2024 Beta HCG ( test) Ql (U) Negative Normal [facility] Comment on above: Order Comment: Name Collection Type:: Clean-Voided Midstream Result Comment: PERF ORMED BY: [facility] [address] [place] [id number] PATHOLOGIST MEDICAL LOGISTICS SPECIALIST KIERSTEN BYNUM M.D. Performed By: #### U HCG, ADDONUAPLUS, URDS ####[place] [address] [place] [phone] [facility] Hematocrit [Volume Fraction] of Blood by Automated countOrdered By: Derek Phipps on 04-17-2024 Hematocrit (Bld) [Volume fraction] 40.8 % Normal 34.0-46.4 [facility] Comment on above: Performed By: #### H EPATIC, LIPASE, CBC, BMP ####[place] [address] [place] [id number] [facility] Hemoglobin Test strip Ql (U) Ordered By: Derek Phipps on 04-17-2024 Hemoglobin Ql (U) Negative Negative [facility] Hemoglobin [Mass/volume] in BloodOrdered By: Derek Phipps on 04-17-2024 Hemoglobin (Bld) [Mass/Vol] 13.8 g/dL Normal 11.8-15.4 [facility] Comment on above: Performed By: #### H EPATIC, LIPASE, CBC, BMP ####[facility] [address] [place] [id number] [facility] Hepatic Panelon 04-17-2024 Albumin [Mass/Vol] 4.7 g/dL Normal 3.5-5.7 [facility] Comment on above: Performed By: #### H EPATIC, LIPASE, CBC, BMP ####[address] [place] [address] [place] Bilirubin,Indirect 0.5 mg/dL Normal [facility] Comment on above: Performed By: #### H EPATIC, LIPASE, CBC, BMP ####[place] [address] Bilirubin.indirect [Mass/Vol] 0.10 mg/dL Normal 0.03-0.18 [facility] Comment on above: Performed By: #### H EPATIC, LIPASE, CBC, BMP ####[address] Hyaline casts [#/area] in Ur ine sediment by Automated countOrdered By: Derek Phipps on 04-17-2024 Hyaline casts Auto (Urine sed) [#/Area] None [LPF] 0-8 [facility] Ketones [Presence] in Urine by Test stripOrdered By: Derek Phipps on 04-17-2024 Ketones Ql (U) Negative Normal Negative [facility] Comment on above: Order Comment: Name Collection Type:: Clean-Voided Midstream Performed By: #### U HCG, ADDONUAPLUS, URDS ####[address] Leukocyte esterase [Presence ] in Urine by Test stripOrdered By: Derek Phipps on 04-17-2024 Leukocyte esterase Test strip Ql (U) Negative Normal Negative [facility] Comment on above: Order Comment: Name Collection Type:: Clean-Voided Midstream Performed By: #### U HCG, ADDONUAPLUS, URDS ####[address] Leukocytes [#/area] in Urine sediment by Automated countOrdered By: Derek Phipps on 04-17-2024 WBC Auto (Urine sed) [#/Area] 1-2 [HPF] 0-4 [facility] Leukocytes [#/volume] correc michael for nucleated erythrocytes in Blood by Automated counOrdered By: Derek Phipps on 04-17-2024 WBC corrected for nucl RBC Auto (Bld) [#/Vol] 8.7 10*3/uL 3.8-11.6 [facility] Leukocytes [#/volume] in Blo od by Automated countOrdered By: Derek Phipps on 04-17-2024 WBC (Bld) [#/Vol] 8.7 10*3/uL Normal 3.8-11.6 [facility] Comment on above: Performed By: #### H EPATIC, LIPASE, CBC, BMP ####[place] [address] Lipase [Enzymatic activity/v olume] in Serum or PlasmaOrdered By: Derek Phipps on 04-17-2024 Lipase [Catalytic activity/Vol] 20.0 U/L Normal 11.0-82.0 [facility] Comment on above: Result Comment: PERF ORMED BY: [facility] [address] [place] [address] PATHOLOGIST MEDICAL LOGISTICS SPECIALIST KIERSTEN BYNUM M.D. Performed By: #### H EPATIC, LIPASE, CBC, BMP ####[address] Lymphocytes [#/volume] in Bl ood by Automated countOrdered By: Derek Phipps on 04-17-2024 Lymphocytes (Bld) [#/Vol] 0.9 10*3/uL Low 1.00-4.8 [facility] Comment on above: Performed By: #### H EPATIC, LIPASE, CBC, BMP ####[address] Lymphocytes/100 leukocytes i n Blood by Automated countOrdered By: Derek Phipps on 04-17-2024 Lymphocytes/100 WBC (Bld) 10.9 % Normal . [facility] Comment on above: Performed By: #### H EPATIC, LIPASE, CBC, BMP ####[place] [address] [place] MCH [Entitic mass] by Automa michael countOrdered By: Derek Phipps on 04-17-2024 MCH (RBC) [Entitic mass] 29.7 pg Normal 24.7-34.3 [facility] Comment on above: Performed By: #### H EPATIC, LIPASE, CBC, BMP ####[facility] [address] MCHC Auto (RBC) [Mass/Vol]Or dered By: Derek Phipps on 04-17-2024 MCHC (RBC) [Mass/Vol] 33.9 g/dL 32.0-35.0 [facility] MCV [Entitic volume] by Auto mated countOrdered By: Derek Phipps on 04-17-2024 MCV (RBC) [Entitic vol] 87.6 fL Normal 80-100 F [facility] Comment on above: Performed By: #### H EPATIC, LIPASE, CBC, BMP ####[place] [address] Monocyte distribution width [Entitic volume] in Blood by AutomatedOrdered By: Derek Phipps on 04-17-2024 Monocyte distribution width Auto (Bld) [Entitic vol] 19.53 % 0.00-20.00 [facility] Mucus [Presence] in Urine by AutomatedOrdered By: Derke Phipps on 04-17-2024 Mucus Auto Ql (U) 4+ [LPF] Abnormal [facility] Neutrophils [#/volume] in Bl ood by Automated countOrdered By: Derek Phipps on 04-17-2024 Neutrophils (Bld) [#/Vol] 7.3 10*3/uL Normal 1.8-7.7 [facility] Comment on above: Performed By: #### H EPATIC, LIPASE, CBC, BMP ####[address] Nitrite Test strip Ql (U)Ord ered By: Derek Phipps on 04-17-2024 Nitrite Ql (U) Negative Negative [facility] No Panel InformationOrdered By: Derek Phipps on 04-17-2024 Estimated GFR (CKD-EPI) > 60.0 mL/Min [facility] Creatinine Clearance (Chem 94.59 [facility] Nucleated erythrocytes [Pres ence] in Blood by Automated countOrdered By: Derek Phipps on 04-17-2024 Nucleated RBC Auto Ql (Bld) 0.0 /100{WBC} 0-0.5 [facility] Opiates [Presence] in Urine by Screen methodOrdered By: Derek Phipps on 04-17-2024 Opiates Screen Ql (U) Negative Negative [facility] Phencyclidine Screen Ql (U)O rdered By: Derek Phipps on 04-17-2024 Phencyclidine Ql (U) Negative Negative [facility] Platelet mean volume [Entiti c volume] in Blood by Automated countOrdered By: Dreek Phipps on 04-17-2024 Platelet mean volume (Bld) [Entitic vol] 7.8 fL Normal 6.3-10.7 [facility] Comment on above: Performed By: #### H EPATIC, LIPASE, CBC, BMP ####[place] [address] [place] [phone] [facility] Platelets [#/volume] in Bloo d by Automated countOrdered By: Derek Phipps on 04-17-2024 Platelets (Bld) [#/Vol] 253 10*3/uL Normal 150-450 [facility] Comment on above: Performed By: #### H EPATIC, LIPASE, CBC, BMP ####[address] [address] [facility] Potassium [Moles/volume] in Serum or PlasmaOrdered By: Derek Phipps on 04-17-2024 Potassium [Moles/Vol] 3.8 mmol/L Normal 3.5-5.1 [facility] Comment on above: Performed By: #### H EPATIC, LIPASE, CBC, BMP ####[address] [address] [facility] Protein Test strip (U) [Mass /Vol]Ordered By: Derek Phipps on 04-17-2024 Protein (U) [Mass/Vol] Trace mg/dL High Negative [facility] Protein [Mass/volume] in Ser um or PlasmaOrdered By: Derek Phipps on 04-17-2024 Protein [Mass/Vol] 7.4 g/dL Normal 6.4-8.9 [facility] Comment on above: Performed By: #### H EPATIC, LIPASE, CBC, BMP ####[address] [address] [facility] Serum globulin measurement b y calculation (mass/volume)Ordered By: Derek Phipps on 04-17-2024 Globulin (S) [Mass/Vol] 2.7 g/dL Normal F [facility] Comment on above: Performed By: #### H EPATIC, LIPASE, CBC, BMP ####[place] [address] Serum or plasma albumin/glob ulin mass ratioOrdered By: Derek Phipps on 04-17-2024 Albumin/Globulin [Mass ratio] 1.7 {ratio} Normal [facility] Comment on above: Performed By: #### H EPATIC, LIPASE, CBC, BMP ####[place] [address] Serum or plasma anion gap de terminationOrdered By: Derek Phipps on 04-17-2024 Anion gap [Moles/Vol] 9.3 mmol/L Normal 6.0-15.0 [facility] Comment on above: Performed By: #### H EPATIC, LIPASE, CBC, BMP ####[address] Serum or plasma non-glucuron idated bilirubin measurement (mass/volume)Ordered By: Derek Phipps on 04-17-2024 Bilirubin.indirect [Mass/Vol] 0.5 mg/dL [facility] Sodium [Moles/volume] in Ser um or PlasmaOrdered By: Derek Phipps on 04-17-2024 Sodium [Moles/Vol] 140 mmol/L Normal 136-145 [facility] Comment on above: Performed By: #### H EPATIC, LIPASE, CBC, BMP ####[place] [address] Specific gravity Test strip (U) [Rel density]Ordered By: Derek Phipps on 04-17-2024 Specific gravity (U) [Rel density] 1.020 1.001-1.03 0 [facility] Urea nitrogen [Mass/volume] in Serum or PlasmaOrdered By: Derek Phipps on 04-17-2024 Urea nitrogen [Mass/Vol] 6 mg/dL Low 7-25 [facility] Comment on above: Performed By: #### H EPATIC, LIPASE, CBC, BMP ####[facility] [address] [place] [id number] [facility] Urine appearanceOrdered By: Derek Phipps on 04-17-2024 Appearance (U) Clear Normal Clear [facility] Comment on above: Order Comment: Name Collection Type:: Clean-Voided Midstream Performed By: #### U HCG, ADDONUAPLUS, URDS ####[facility] [place] [id number] [facility] Urobilinogen Test strip (U) [Mass/Vol]Ordered By: Derek Phipps on 04-17-2024 Urobilinogen (U) [Mass/Vol] Normal mg/dL Normal [facility] pH of Urine by Test stripOrd ered By: Derek Phipps on 04-17-2024 pH (U) 7.5 [pH] Normal 5.0-9.0 [facility] Comment on above: Order Comment: Name Collection Type:: Clean-Voided Midstream Performed By: #### U HCG, ADDONUAPLUS, URDS ####[facility] [address] [place] [id number] [facility] XR CHEST 2 VIEWSon XR CHEST 2 [...] Basophils/100 WBC (Bld) 0.6 % Normal . [facility] Comment on above: Performed By: #### D DIMER, BMP, CBC, PTT, PT #### [address] Automated basophil countOrde red By: Charlie Wells on 10-13-2023 Basophils (Bld) [#/Vol] 0.0 10*3/uL Normal 0.0-0.2 [facility] Comment on above: Result Comment: PERF ORMED BY: [place] [id number] PATHOLOGIST MEDICAL LOGISTICS SPECIALIST KIERSTEN BYNUM M.D. Performed By: #### D DIMER, BMP, CBC, PTT, PT #### [address] Automated blood monocyte cou ntOrdered By: Charlie Wells on 10-13-2023 Monocytes (Bld) [#/Vol] 0.3 10*3/uL Normal 0.0-0.8 [facility] Comment on above: Performed By: #### D DIMER, BMP, CBC, PTT, PT #### [address] Automated eosinophil %Ordere d By: Charlie Wells on 10-13-2023 Eosinophils/100 WBC (Bld) 3.8 % Normal . [facility] Comment on above: Performed By: #### D DIMER, BMP, CBC, PTT, PT #### [address] Automated eosinophil countOr dered By: Charlie Wells on 10-13-2023 Eosinophils (Bld) [#/Vol] 0.3 10*3/uL Normal 0.0-0.45 [facility] Comment on above: Performed By: #### D DIMER, BMP, CBC, PTT, PT #### [address] Automated monocyte %Ordered By: Charlie Wells on 10-13-2023 Monocytes/100 WBC (Bld) 4.7 % Normal . [facility] Comment on above: Performed By: #### D DIMER, BMP, CBC, PTT, PT #### [place] [address] Automated neutrophil %Ordere d By: Charlie Wells on 10-13-2023 Neutrophils/100 WBC (Bld) 69.4 % Normal . [facility] Comment on above: Performed By: #### D DIMER, BMP, CBC, PTT, PT #### [address] BNP ser/plasOrdered By: Charlie Wells on 10-13-2023 Natriuretic peptide B (Bld) [Mass/Vol] 30.0 pg/mL Normal 5-100 [facility] Comment on above: Result Comment: PERF ORMED BY: [place] [id number] PATHOLOGIST MEDICAL LOGISTICS SPECIALIST KIERSTEN BYNUM M.D. Performed By: #### D DIMER, BMP, CBC, PTT, PT #### [address] Basic Metabolic Panelon Creatinine Clr Calc Pharmacy 118.45 Normal [facility] Comment on above: Result Comment: PERF ORMED BY: [place] [id number] PATHOLOGIST MEDICAL LOGISTICS SPECIALIST KIERSTEN BYNUM M.D. Performed By: #### D DIMER, BMP, CBC, PTT, PT #### [address] GFR/1.73 sq M.predicted MDRD (S/P/Bld) [Vol rate/Area] mL/min/{1.73_m2} Normal [facility] Comment on above: Performed By: #### D DIMER, BMP, CBC, PTT, PT #### [address] Calcium [Mass/volume] in Ser um or PlasmaOrdered By: Charlie Wells on 10-13-2023 Calcium [Mass/Vol] 9.0 mg/dL Normal 8.6-10.3 [facility] Comment on above: Performed By: #### D DIMER, BMP, CBC, PTT, PT #### [address] [address] [place] Carbon dioxide, total [Moles /volume] in Serum or PlasmaOrdered By: Charlie Wells on 10-13-2023 CO2 [Moles/Vol] 28.6 mmol/L Normal 21.0-31.0 [facility] Comment on above: Performed By: #### D DIMER, BMP, CBC, PTT, PT #### [facility] [address] [place] [address] [place] Chloride [Moles/volume] in S isabel or PlasmaOrdered By: Charlie Wells on 10-13-2023 Chloride [Moles/Vol] 107 mmol/L Normal 98-107 [facility] Comment on above: Performed By: #### D DIMER, BMP, CBC, PTT, PT #### [facility] [address] [place] [address] Choriogonadotropin.beta subu nit [Units/volume] in Serum or PlasmaOrdered By: Charlie Wells on 10-13-2023 HCG.beta subunit Qn Negative [facility] Complete Blood Count Auto Di ffon 10-13-2023 Mean Corpuscular HGB Conc 33.9 g/dL Normal 32.0-35.0 [facility] Comment on above: Performed By: #### D DIMER, BMP, CBC, PTT, PT #### [place] [address] [place] Monocytes/100 WBC (Bld) 16.72 % Normal 0.00-20.00 [facility] Comment on above: Performed By: #### D DIMER, BMP, CBC, PTT, PT #### [facility] [address] [place] [address] [place] NRBC% 0.1 /100{WBC} Normal 0-0.5 [facility] Comment on above: Performed By: #### D DIMER, BMP, CBC, PTT, PT #### [facility] [address] [place] [address] [place] Creatine kinase [Enzymatic a ctivity/volume] in Serum or PlasmaOrdered By: Charlie Wells on 10-13-2023 CK [Catalytic activity/Vol] 42 U/L Normal 30-223 [facility] Comment on above: Performed By: #### D DIMER, BMP, CBC, PTT, PT #### [address] Creatinine [Mass/volume] in Serum or PlasmaOrdered By: Charlie Wells on 10-13-2023 Creatinine [Mass/Vol] 0.51 mg/dL Low 0.60-1.20 [facility] Comment on above: Performed By: #### D DIMER, BMP, CBC, PTT, PT #### [place] [id number] [facility] D-Dimer High Sensitivityon 0 10-13-2023 D-Dimer High Sensitivity < 200 Normal 0-243 [facility] Comment on above: Result Comment: [...] coagulation studies. Please contact the laboratory at [phone] for redraw instructions. PERFORMED BY: [place] [id number] PATHOLOGIST MEDICAL LOGISTICS SPECIALIST KIERSTEN BYNUM M.D. Performed By: #### D DIMER, BMP, CBC, PTT, PT #### [place] [id number] [facility] ECG 12 lead ECGon 10-13-2023 ECG 12 lead ECG [facility] Main [place] [address] [place], [place] [id number] Electrocardiograph Report Signed Patient: Dawn Cuellar MR#: [id number] : 2000 Acct:[id number] Age/Sex: 23 / F ADM Date: 10/13/23 Loc: ER Room: Type: [facility] ER Attending Dr: Ordering Provider: [...] has shortened Confirmed by CHARLIE WELLS DO ([id number]) on 10/13/2023 4:22:16 PM Referred By: Electronically Signed By:CHARLIE WELLS DO Transcribed By: MUS Signed By Charlie Wells DO 10/13 1622 Normal [facility] Erythrocyte distribution wid th [Ratio] by Automated countOrdered By: Charlie Wells on 10-13-2023 Erythrocyte distribution width (RBC) [Ratio] 13.9 % Normal 11.9-15.3 [facility] Comment on above: Performed By: #### D DIMER, BMP, CBC, PTT, PT #### [facility] [address] [place] [address] [place] Erythrocytes [#/volume] in B lood by Automated countOrdered By: Charlie Wells on 10-13-2023 RBC (Bld) [#/Vol] 4.01 10*6/uL Normal 3.60-5.00 [facility] Comment on above: Performed By: #### D DIMER, BMP, CBC, PTT, PT #### [facility] [address] [place] [id number] [place] Glucose [Mass/volume] in Ser um or PlasmaOrdered By: Charlie Wells on 10-13-2023 Glucose [Mass/Vol] 80 mg/dL Normal 70-100 [facility] Comment on above: ADA recommended refe rence rangeRandom Glucose Reference Range is dependent on time and content of last meal. Glucose of more than 200 mg/dL in a nonstressed, ambulatory subject supports the diagnosis of Diabetes Mellitus. Result Comment: [place] Glucose Reference Range is dependent on time and content of last meal. Glucose of more than 200 mg/dL in a nonstressed, ambulatory subject supports the diagnosis of Diabetes Mellitus. ADA recommended reference range Performed By: #### D DIMER, BMP, CBC, PTT, PT #### [facility] [address] [place] [address] HCG,Qualitative Serumon HCG,Qualitative Serum Negative Normal [facility] Comment on above: Result Comment: PERF ORMED BY: [place] [id number] PATHOLOGIST MEDICAL LOGISTICS SPECIALIST KIERSTEN BYNUM M.D. Performed By: #### D DIMER, BMP, CBC, PTT, PT #### [facility] [address] [place] [address] Hematocrit [Volume Fraction] of Blood by Automated countOrdered By: Charlie Wells on 10-13-2023 Hematocrit (Bld) [Volume fraction] 34.6 % Normal 34.0-46.4 [facility] Comment on above: Performed By: #### D DIMER, BMP, CBC, PTT, PT #### [facility] [address] [place] [address] Hemoglobin [Mass/volume] in BloodOrdered By: Charlie Wells on 10-13-2023 Hemoglobin (Bld) [Mass/Vol] 11.8 g/dL Normal 11.8-15.4 [facility] Comment on above: Performed By: #### D DIMER, BMP, CBC, PTT, PT #### [facility] [address] [place] [address] Leukocytes [#/volume] correc michael for nucleated erythrocytes in Blood by Automated counOrdered By: Charlie Wells on 10-13-2023 WBC corrected for nucl RBC Auto (Bld) [#/Vol] 6.9 10*3/uL 3.8-11.6 [facility] Leukocytes [#/volume] in Blo od by Automated countOrdered By: Charlie Wells on 10-13-2023 WBC (Bld) [#/Vol] 6.9 10*3/uL Normal 3.8-11.6 [facility] Comment on above: Performed By: #### D DIMER, BMP, CBC, PTT, PT #### [address] Lymphocytes [#/volume] in Bl ood by Automated countOrdered By: Charlie Wells on 10-13-2023 Lymphocytes (Bld) [#/Vol] 1.5 10*3/uL Normal 1.00-4.8 [facility] Comment on above: Performed By: #### D DIMER, BMP, CBC, PTT, PT #### [address] Lymphocytes/100 leukocytes i n Blood by Automated countOrdered By: Charlie Wells on 10-13-2023 Lymphocytes/100 WBC (Bld) 21.5 % Normal . [facility] Comment on above: Performed By: #### D DIMER, BMP, CBC, PTT, PT #### [address] MCH [Entitic mass] by Automa michael countOrdered By: Charlie Wells on 10-13-2023 MCH (RBC) [Entitic mass] 29.3 pg Normal 24.7-34.3 [facility] Comment on above: Performed By: #### D DIMER, BMP, CBC, PTT, PT #### [facility] [address] [place] [address] MCHC Auto (RBC) [Mass/Vol]Or dered By: Charlie Wells on 10-13-2023 MCHC (RBC) [Mass/Vol] 33.9 g/dL 32.0-35.0 [facility] MCV [Entitic volume] by Auto mated countOrdered By: Charlie Wells on 10-13-2023 MCV (RBC) [Entitic vol] 86.4 fL Normal 80-100 [facility] Comment on above: Performed By: #### D DIMER, BMP, CBC, PTT, PT #### [address] Monocyte distribution width [Entitic volume] in Blood by AutomatedOrdered By: Charlie Wells on 10-13-2023 Monocyte distribution width Auto (Bld) [Entitic vol] 16.72 % 0.00-20.00 [facility] Neutrophils [#/volume] in Bl ood by Automated countOrdered By: Charlie Wells on 10-13-2023 Neutrophils (Bld) [#/Vol] 4.8 10*3/uL Normal 1.8-7.7 [facility] Comment on above: Performed By: #### D DIMER, BMP, CBC, PTT, PT #### [facility] [address] No Panel InformationOrdered By: Charlie Wells on 10-13-2023 Estimated GFR (CKD-EPI) > 60.0 mL/Min [facility] Creatinine Clearance (Chem 118.45 [facility] Nucleated erythrocytes [Pres ence] in Blood by Automated countOrdered By: Charlie Wells on 10-13-2023 Nucleated RBC Auto Ql (Bld) 0.1 /100{WBC} 0-0.5 [facility] Partial Thromboplastin Timeo n 10-13-2023 aPTT Coag (Bld) [Time] 28.9 s Normal 25.1-36.5 [facility] Comment on above: Result Comment: A he matocrit value greater than 55% may lead to inaccurate results in coagulation testing. Patients having hematocrit values >55% require a special collection tube for coagulation studies. Please contact the laboratory at [phone] for redraw instructions. Performed By: #### D DIMER, BMP, CBC, PTT, PT #### [facility] [address] Platelet mean volume [Entiti c volume] in Blood by Automated countOrdered By: Charlie Wells on 10-13-2023 Platelet mean volume (Bld) [Entitic vol] 7.7 fL Normal 6.3-10.7 [facility] Comment on above: Performed By: #### D DIMER, BMP, CBC, PTT, PT #### [facility] [address] Platelets [#/volume] in Bloo d by Automated countOrdered By: Charlie Wells on 10-13-2023 Platelets (Bld) [#/Vol] 257 10*3/uL Normal 150-450 [facility] Comment on above: Performed By: #### D DIMER, BMP, CBC, PTT, PT #### [facility] [address] Potassium [Moles/volume] in Serum or PlasmaOrdered By: Charlie Wells on 10-13-2023 Potassium [Moles/Vol] 3.7 mmol/L Normal 3.5-5.1 [facility] Comment on above: Performed By: #### D DIMER, BMP, CBC, PTT, PT #### [facility] [address] Prothrombin Time INRon 10-13 INR Coag (PPP) [Relative time] 1.0 {INR} Normal [facility] Comment on above: Result Comment: [...] D DIMER, BMP, CBC, PTT, PT #### [address] PT Coag (PPP) [Time] 11.3 s Normal 9.0-12.9 [facility] Comment on above: Result Comment: A he matocrit value greater than 55% may lead to inaccurate results in coagulation testing. Patients having hematocrit values >55% require a special collection tube for coagulation studies. Please contact the laboratory at [phone] for redraw instructions. Performed By: #### D DIMER, BMP, CBC, PTT, PT #### [address] Serum or plasma anion gap de terminationOrdered By: Charlie Wells on 10-13-2023 Anion gap [Moles/Vol] 7.1 mmol/L Normal 6.0-15.0 [facility] Comment on above: Performed By: #### D DIMER, BMP, CBC, PTT, PT #### [facility] [address] Sodium [Moles/volume] in Ser um or PlasmaOrdered By: Charlie Wells on 10-13-2023 Sodium [Moles/Vol] 139 mmol/L Normal 136-145 [facility] Comment on above: Performed By: #### D DIMER, BMP, CBC, PTT, PT #### [facility] [address] Troponin I High Sensitivityo n 10-13-2023 Troponin I High Sensitivity < 2.3 Normal 0.0-15.0 [facility] Comment on above: Result Comment: PERF ORMED BY: [place] [id number] PATHOLOGIST MEDICAL LOGISTICS SPECIALIST KIERSTEN BYNUM M.D. Performed By: #### D DIMER, BMP, CBC, PTT, PT #### [address] Troponin I.cardiac [Mass/vol ume] in Serum or Plasma by Detection limit <= 0.01 ng/Ordered By: Charlie Wells on 10-13-2023 Troponin I.cardiac DL <= 0.01 ng/mL [Mass/Vol] < 2.3 pg/mL 0.0-15.0 [facility] Urea nitrogen [Mass/volume] in Serum or PlasmaOrdered By: Charlie Wells on 10-13-2023 Urea nitrogen [Mass/Vol] 10 mg/dL Normal 7-25 [facility] Comment on above: Performed By: #### D DIMER, BMP, CBC, PTT, PT #### [facility] [address] [place] [address] XR chest 2V*on 10-13-2023 XR chest 2V* [facility] Main [place] [address] [place] [address] XRay Report Signed Patient: Dawn Cuellar MR#: [id number] : 2000 Acct:[id number] Age/Sex: 23 / F ADM Date: 10/13/23 Loc: ER Room: Type: [facility] ER Attending Dr: Copies to: Charlie [...] Catherine Cortes M.D.10/13/2023 1:52 PM Dictation Location: [place] [address] Transcribed By: [facility] 10/13/23 1352 Dictated By: Catherine Cortes MD 10/13/23 1352 Signed By: 10/13/23 1352 Normal [facility] Activated partial thrombopla stin time (aPTT) in platelet poor plasma by coagulation aOrdered By: Ashley Roberson on 09-28-2023 aPTT Coag (PPP) [Time] 31.0 s 25.1-36.5 [facility] Comment on above: A hematocrit value g reater than 55% may lead to inaccurate results in coagulation testing. Patients having hematocrit values >55% require a special collection tube for coagulation studies. Please contact the laboratory at [phone] for redraw instructions. Alanine aminotransferase [En zymatic activity/volume] in Serum or PlasmaOrdered By: Ashley Roberson on 09-28-2023 ALT [Catalytic activity/Vol] 6 U/L 752 [facility] Albumin [Mass/volume] in Ser um or Plasma by Bromocresol green (BCG) dye binding methoOrdered By: Ashley Roberson on 09-28-2023 Albumin BCG dye [Mass/Vol] 4.8 g/dL 3.5-5.7 [facility] Alkaline phosphatase [Enzyma tic activity/volume] in Serum or PlasmaOrdered By: Ashley Roberson on 09-28-2023 ALP [Catalytic activity/Vol] 62 U/L 34-104 [facility] Aspartate aminotransferase [ Enzymatic activity/volume] in Serum or PlasmaOrdered By: Ashley Roberson on 09-28-2023 AST [Catalytic activity/Vol] 15 U/L 13-39 [facility] Automated erythrocytes count in urine sediment (number/area)Ordered By: Ashley Roberson on 09-28-2023 RBC Auto (Urine sed) [#/Area] 1-2 [HPF] 0-4 [facility] Automated leukocytes count i n urine sediment (number/area)Ordered By: Ashley Roberson on 09-28-2023 WBC Auto (Urine sed) [#/Area] 20-49 [HPF] 0-4 [facility] Automated urine hyaline cast s count (number/volume)Ordered By: Ashley Roberson on 09-28-2023 Hyaline casts Auto (U) [#/Vol] None seen [LPF] 0-1 [facility] Basophils Auto (Bld) [#/Vol] Ordered By: Ashley Roberson on 09-28-2023 Basophils (Bld) [#/Vol] 0.1 10*3/uL 0.0-0.2 [facility] Basophils/100 WBC Auto (Bld) Ordered By: Ashley Roberson on 09-28-2023 Basophils/100 WBC (Bld) 0.4 % . F [facility] Bilirubin Test strip Ql (U)O rdered By: Ashley Roberson on 09-28-2023 Bilirubin Ql (U) Negative Negative [facility] Bilirubin.total [Mass/volume ] in Serum or PlasmaOrdered By: Ashley Roberson on 09-28-2023 Bilirubin [Mass/Vol] 1.2 mg/dL 0.3-1.0 [facility] COVID CepheidOrdered By: Nuvia Roberson on 09-28-2023 SARS-CoV-2 (COVID-19) Ab IA Ql Negative Negative [facility] Comment on above: This is a duplicate Cepheid Xpert Xpress CoV-2/Flu/RSV Plus RNA by RT-PCR result to be used for statistical tracking purpose only. SARS-CoV-2 (COVID-19) RNA OMAIRA+probe Ql (Unsp spec) [facility] Calcium [Mass/volume] in Ser um or PlasmaOrdered By: Ashley Roberson on 09-28-2023 Calcium [Mass/Vol] 10.1 mg/dL 8.6-10.3 [facility] Carbon dioxide, total [Moles /volume] in Serum or PlasmaOrdered By: Ashley Roberson on 09-28-2023 CO2 [Moles/Vol] 25.4 mmol/L 21.0-31.0 [facility] Chloride [Moles/volume] in S isabel or PlasmaOrdered By: Ashley Roberson on 09-28-2023 Chloride [Moles/Vol] 99 mmol/L 98-107 [facility] Color Auto (U)Ordered By: Sheng Roberson on 09-28-2023 Color (U) Dark yellow Yellow [facility] Creatinine [Mass/volume] in Serum or PlasmaOrdered By: Ashley Roberson on 09-28-2023 Creatinine [Mass/Vol] 0.62 mg/dL 0.60-1.20 [facility] Eosinophils Auto (Bld) [#/Vo l]Ordered By: Ashley Roberson on 09-28-2023 Eosinophils (Bld) [#/Vol] 0.2 10*3/uL 0.0-0.45 [facility] Eosinophils/100 WBC Auto (Bl d)Ordered By: Ashley Roberson on 09-28-2023 Eosinophils/100 WBC (Bld) 1.3 % . [facility] Erythrocyte distribution wid th Auto (RBC) [Ratio]Ordered By: Ashley Roberson on 09-28-2023 Erythrocyte distribution width (RBC) [Ratio] 13.8 % 11.9-15.3 [facility] Fibrin D-dimer [Presence] in Platelet poor plasma by Latex agglutinationOrdered By: Ashley Roberson on 09-28-2023 Fibrin D-dimer LA Ql (PPP) < 200 ng/mL 0-243 [facility] Comment on above: The reference range for [...] coagulation studies. Please contact the laboratory at [phone] for redraw instructions. Globulin Calc (S) [Mass/Vol] Ordered By: Ashley Roberson on 09-28-2023 Globulin (S) [Mass/Vol] 3.3 g/dL F [facility] Glucose Glucometer (BldC) [M ass/Vol]Ordered By: Ashley Roberson on 09-28-2023 Glucose [Mass/Vol] 113 mg/dL [facility] Comment on above: Random Glucose Refer ence Range is dependent on time and content of last meal. Glucose of more than 200 mg/dL in a nonstressed, ambulatory subject supports the diagnosis of Diabetes Mellitus. Glucose [Mass/volume] in Ser um or PlasmaOrdered By: Ashley Roberson on 09-28-2023 Glucose [Mass/Vol] 59 mg/dL 70-100 [facility] Comment on above: ADA recommended refe rence rangeRandom Glucose Reference Range is dependent on time and content of last meal. Glucose of more than 200 mg/dL in a nonstressed, ambulatory subject supports the diagnosis of Diabetes Mellitus. HCG ( test) IA.rapi d Ql (U)Ordered By: Ashley Roberson on 09-28-2023 HCG ( test) Ql (U) Negative [facility] Hematocrit Auto (Bld) [Volum e fraction]Ordered By: Ahsley Roberson on 09-28-2023 Hematocrit (Bld) [Volume fraction] 38.8 % 34.0-46.4 [facility] Hemoglobin [Mass/volume] in BloodOrdered By: Ashley Roberson on 09-28-2023 Hemoglobin (Bld) [Mass/Vol] 13.4 g/dL 11.8-15.4 [facility] INR in Platelet poor plasma by Coagulation assayOrdered By: Ashley Roberson on 09-28-2023 INR Coag (PPP) [Relative time] 1.2 {INR} [facility] Comment on above: INR Therapeutic Rang e [...] on 09-28-2023 Ketones (U) [Mass/Vol] 4+ Negative [facility] Leukocytes [#/volume] correc michael for nucleated erythrocytes in Blood by Automated counOrdered By: Ashley Roberson on 09-28-2023 WBC corrected for nucl RBC Auto (Bld) [#/Vol] 17.6 10*3/uL 3.8-11.6 [facility] Lipase [Enzymatic activity/v olume] in Serum or PlasmaOrdered By: Ashley Roberson on 09-28-2023 Lipase [Catalytic activity/Vol] 15.0 U/L 11.0-82.0 [facility] Lymphocytes Auto (Bld) [#/Vo l]Ordered By: Ashley Roberson on 09-28-2023 Lymphocytes (Bld) [#/Vol] 1.4 10*3/uL 1.00-4.8 [facility] Lymphocytes/100 WBC Auto (Bl d)Ordered By: Ashley Roberson on 09-28-2023 Lymphocytes/100 WBC (Bld) 8.2 % . [facility] MCH Auto (RBC) [Entitic mass ]Ordered By: Ashley Roberson on 09-28-2023 MCH (RBC) [Entitic mass] 29.5 pg 24.7-34.3 [facility] MCHC Auto (RBC) [Mass/Vol]Or dered By: Ashley Roberson on 09-28-2023 MCHC (RBC) [Mass/Vol] 34.6 g/dL 32.0-35.0 [facility] MCV Auto (RBC) [Entitic vol] Ordered By: Ashley Roberson on 09-28-2023 MCV (RBC) [Entitic vol] 85.4 fL 80-100 [facility] Monocyte distribution width [Entitic volume] in Blood by AutomatedOrdered By: Ashley Roberson on 09-28-2023 Monocyte distribution width Auto (Bld) [Entitic vol] 20.66 % 0.00-20.00 [facility] Comment on above: For adults in ED, MD W > 20.0 may be associated with a higher risk of sepsis during the first 12 hrs of hospital admission Monocytes Auto (Bld) [#/Vol] Ordered By: Ashley Roberson on 09-28-2023 Monocytes (Bld) [#/Vol] 0.7 10*3/uL 0.0-0.8 [facility] Monocytes/100 WBC Auto (Bld) Ordered By: Ashley Roberson on 09-28-2023 Monocytes/100 WBC (Bld) 4.2 % . F [facility] Neutrophils Auto (Bld) [#/Vo l]Ordered By: Ashley Roberson on 09-28-2023 Neutrophils (Bld) [#/Vol] 15.1 10*3/uL 1.8-7.7 [facility] Neutrophils/100 WBC Auto (Bl d)Ordered By: Ashley Roberson on 09-28-2023 Neutrophils/100 WBC (Bld) 85.9 % . [facility] Nitrite Test strip Ql (U)Ord ered By: Ashley Roberson on 09-28-2023 Nitrite Ql (U) Negative Negative [facility] No Panel InformationOrdered By: Ashley Roberson on 09-28-2023 Bedside Glucose Comment See comment [facility] Comment on above: Glu2: WILL NOTIFY DR /RN Estimated GFR (CKD-EPI) > 60.0 mL/Min [facility] Creatinine Clearance (Chem 92.34 [facility] Nucleated erythrocytes [Pres ence] in Blood by Automated countOrdered By: Ashley Roberson on 09-28-2023 Nucleated RBC Auto Ql (Bld) 0.1 /100{WBC} 0-0.5 [facility] Platelet mean volume Auto (B ld) [Entitic vol]Ordered By: Ashley Roberson on 09-28-2023 Platelet mean volume (Bld) [Entitic vol] 8.0 fL 6.3-10.7 [facility] Platelets Auto (Bld) [#/Vol] Ordered By: Ashley Roberson on 09-28-2023 Platelets (Bld) [#/Vol] 377 10*3/uL 150-450 [facility] Potassium [Moles/volume] in Serum or PlasmaOrdered By: Ashley Roberson on 09-28-2023 Potassium [Moles/Vol] 3.8 mmol/L 3.5-5.1 [facility] Protein Auto test strip (U) [Mass/Vol]Ordered By: Ashley Roberson on 09-28-2023 Protein (U) [Mass/Vol] 30 mg/dL Negative [facility] Protein [Mass/volume] in Ser um or PlasmaOrdered By: Ashley Roberson on 09-28-2023 Protein [Mass/Vol] 8.1 g/dL 6.4-8.9 [facility] Prothrombin time (PT)Ordered By: Ashley Roberson on 09-28-2023 PT Coag (PPP) [Time] 13.8 s 9.0-12.9 [facility] Comment on above: A hematocrit value g reater than 55% may lead to inaccurate results in coagulation testing. Patients having hematocrit values >55% require a special collection tube for coagulation studies. Please contact the laboratory at [phone] for redraw instructions. RBC Auto (Bld) [#/Vol]Ordere d By: Ashley Roberson on 09-28-2023 RBC (Bld) [#/Vol] 4.55 10*6/uL 3.60-5.00 [facility] Serum or plasma albumin/glob ulin mass ratioOrdered By: Ashley Roberson on 09-28-2023 Albumin/Globulin [Mass ratio] 1.5 {ratio} [facility] Serum or plasma anion gap de terminationOrdered By: Ashley Roberson on 09-28-2023 Anion gap [Moles/Vol] 18.4 mmol/L 6.0-15.0 [facility] Sodium [Moles/volume] in Ser um or PlasmaOrdered By: Ashley Roberson on 09-28-2023 Sodium [Moles/Vol] 139 mmol/L 136-145 [facility] Specific gravity Auto test s trip (U) [Rel density]Ordered By: Ashley Roberson on 09-28-2023 Specific gravity (U) [Rel density] 1.030 1.001-1.03 0 [facility] Squamous epithelial cells de tection in urine sediment by light microscopyOrdered By: Ashley Roberson on 09-28-2023 Epithelial cells.squamous LM Ql (Urine sed) 3-4 [HPF] 0-2 [facility] Troponin I.cardiac [Mass/vol ume] in Serum or Plasma by Detection limit <= 0.01 ng/Ordered By: Ashley Roberson on 09-28-2023 Troponin I.cardiac DL <= 0.01 ng/mL [Mass/Vol] 3.3 pg/mL 0.0-15.0 [facility] Urea nitrogen [Mass/volume] in Serum or PlasmaOrdered By: Ashley Roberson 09-28-2023 Urea nitrogen [Mass/Vol] 12 mg/dL 7-25 [facility] Urine bacteria detection by automated methodOrdered By: Ashley Roberson on 09-28-2023 Bacteria Auto Ql (U) None seen None Seen [facility] Urine clarity by refractomet ry automatedOrdered By: Ashley Roberson on 09-28-2023 Clarity Refractometry automated (U) Clear Clear [facility] Urine culture routineOrdered By: Ashley Roberson on 09-28-2023 Bacteria identified Cx Nom (U) Strep agalactiae - (group b) [facility] Urine glucose measurement by automated test strip (mass/volume)Ordered By: Ashley Roberson on 09-28-2023 Glucose Auto test strip (U) [Mass/Vol] Normal mg/dL Normal [facility] Urine hemoglobin detection b y automated test stripOrdered By: Ashley Roberson on 09-28-2023 Hemoglobin Auto test strip Ql (U) Negative Negative [facility] Urine leukocyte esterase det ection by automated test stripOrdered By: Ashley Roberson on 09-28-2023 Leukocyte esterase Auto test strip Ql (U) 3+ Negative [facility] Urobilinogen Auto test strip (U) [Mass/Vol]Ordered By: Ashley Roberson on 09-28-2023 Urobilinogen (U) [Mass/Vol] Normal mg/dL Normal [facility] WBC Auto (Bld) [#/Vol]Ordere d By: Ashley Roberson on 09-28-2023 WBC (Bld) [#/Vol] 17.6 10*3/uL 3.8-11.6 [facility] pH Auto test strip (U)Ordere d By: Ashley Roberson on 09-28-2023 pH (U) 6.0 [pH] 5.0-9.0 [facility] Amphetamine Screen Ql (U)Ord ered By: Jordi Seals on 09-10-2023 Amphetamines Ql (U) Negative Negative [facility] Barbiturates [Presence] in U rine by Screen methodOrdered By: Imad Asaad on 09-10-2023 Barbiturates Screen Ql (U) Negative Negative [facility] Benzodiazepines Screen Ql (U )Ordered By: Jordi Asacher on 09-10-2023 Benzodiazepines Ql (U) Negative Negative [facility] Benzoylecgonine [Presence] i n Urine by Screen methodOrdered By: Imad Asaad on 09-10-2023 Benzoylecgonine Screen Ql (U) Negative Negative [facility] Cannabinoids [Presence] in U rine by Screen methodOrdered By: Imad Asaad on 09-10-2023 Cannabinoids Screen Ql (U) Positive Negative [facility] Comment on above: These are unconfirme d results and should not be used for legal purposes. Drug Cut-Off Concentration: AMPH 1000 ng/mL VENKATA 200 ng/mL BREANNA 200 ng/mL COCM 300 ng/mL OP 300 ng/mL PCP 25 ng/mL THC 20 ng/mL HCG ( test) IA.rapi d Ql (U)Ordered By: Imad Asaad on 09-10-2023 HCG ( test) Ql (U) Negative [facility] Opiates [Presence] in Urine by Screen methodOrdered By: Imad Asaad on 09-10-2023 Opiates Screen Ql (U) Negative Negative [facility] Phencyclidine Screen Ql (U)O rdered By: Imad Asaad on 09-10-2023 Phencyclidine Ql (U) Negative Negative [facility] HCG ( test) IA.rapi d Ql (U)Ordered By: Imad Asaad on 06-03-2023 HCG ( test) Ql (U) Negative [facility] C reactive protein [Mass/vol ume] in Serum or PlasmaOrdered By: Imad Asaad on 05-08-2023 CRP [Mass/Vol] < 0.5 mg/dL 0.0-0.5 [facility] Calprotectin [Mass/mass] in StoolOrdered By: Imad Asaad on 05-08-2023 Calprotectin (Stl) [Mass/Mass] <5 ug/g 0-120 [facility] Comment on above: Concentration Interp retation Follow-Up< 5 - 50 ug/g Normal None>50 -120 ug/g Borderline Re-evaluate in 4-6 weeks >120 ug/g Abnormal Repeat as clinically indicatedPerformed at: - [facility] [id number] Director: Joseph Tang MD, Phone: [phone] Clostridioides difficile tox in B tcdB gene [Presence] in Stool by OMAIRA with probe deteOrdered By: Imad Asaad on 05-08-2023 C. difficile toxin B tcdB gene OMAIRA+probe Ql (Stl) Negative Negative [facility] Comment on above: Testing performed by RT-PCR Elastase.pancreatic [Mass/ma ss] in StoolOrdered By: Imad Asaad on 05-08-2023 Elastase.pancreatic (Stl) [Mass/Mass] 284 >200 [facility] Comment on above: Result Units: ug Bambi st./g Severe Pancreatic Insufficiency: <100 Moderate Pancreatic Insufficiency: 100 - 200 Normal: >200Performed at: - [facility] [id number] Director: Joseph Tang MD, Phone: [phone] Erythrocyte sedimentation ra te by Photometric methodOrdered By: Imad Bozena on 05-08-2023 ESR Photometric method (Bld) [Velocity] 3 mm/hr 0-19 [facility] HIV 1 and HIV-2 antibody ass ay with HIV-1 p24 antigen detectionOrdered By: Imad Asaad on 05-08-2023 HIV 1+2 Ab+HIV1 p24 Ag IA Ql Non-Reactive Non Reactive [facility] Comment on above: HIV NegativeHIV-1/HI V-2 antibodies and HIV-1 p24 antigen were NOTdetected. There is no laboratory evidence of HIV infection.Performed at: [facility] [address] [id number] Director: Mendel Rubin PhD, Phone: [phone] IgA [Mass/volume] in Serum o r PlasmaOrdered By: Imad Bozena on 05-08-2023 IgA [Mass/Vol] 260 mg/dL 87-352 [facility] Comment on above: Performed at: [facility] [address] [id number] Director: Mendel Rubin PhD, Phone: [phone] No Panel InformationOrdered By: Imcher Seals on 05-08-2023 Endomysial IgA Antibody Negative Negative [facility] Ova and Parasite Result 1 N/A [facility] Ova and Parasite Result 1 [facility] Ova or parasites identificat ionOrdered By: Imcher Asacher on 05-08-2023 Ova and parasites identified LM Nom (Unsp spec) N/A [facility] Ova and parasites identified LM Nom (Unsp spec) [facility] Serum gliadin peptide IgA an tibody assay (units/volume)Ordered By: Imcher Seals on 05-08-2023 Gliadin peptide IgA Qn (S) 6 units 0-19 [facility] Comment on above: Negative 0 - 19 Weak Positive 20 - 30 Moderate to Strong Positive >30 Serum gliadin peptide IgG an tibody assay (units/volume)Ordered By: cher [facility] on 05-08-2023 Gliadin peptide IgG Qn (S) 3 units 0-19 [facility] Comment on above: Negative 0 - 19 Weak Positive 20 - 30 Moderate to Strong Positive >30 Serum tissue transglutaminas e (tTG) IgA antibody assay (units/volume)Ordered By: [facility] on 05-08-2023 tTG IgA Qn (S) <2 U/mL 0-3 [facility] Comment on above: Negative 0 - 3 Weak Positive 4 - 10 Positive >10 Tissue Transglutaminase (tTG) has been identified as the endomysial antigen. Studies have demonstr- ated that endomysial IgA antibodies have over 99% specificity for gluten sensitive enteropathy. Serum tissue transglutaminas e (tTG) IgG antibody assay (units/volume)Ordered By: [facility] on 05-08-2023 tTG IgG Qn (S) <2 U/mL 0-5 [facility] Comment on above: Negative 0 - 5 Weak Positive 6 - 9 Positive >9 Stool ova and parasites iden tification by concentrationOrdered By: [facility] on 05-08-2023 Ova and parasites identified Concentration Nom (Stl) N/A [facility] Stool ova and parasites iden tification by trichrome stainOrdered By: [facility] on 05-08-2023 Ova and parasites identified Trichrome stain Nom (l) N/A [facility] Thyrotropin [Units/volume] i n Serum or PlasmaOrdered By: cher [facility] on 05-08-2023 TSH Qn 0.49 m[IU]/L 0.45-5.33 [facility] Alanine aminotransferase [En zymatic activity/volume] in Serum or PlasmaOrdered By: Vivian Nieto on 12-29-2022 ALT [Catalytic activity/Vol] 9 U/L 7-52 [facility] Albumin [Mass/volume] in Ser um or Plasma by Bromocresol green (BCG) dye binding methoOrdered By: Vivian Nieto on 12-29-2022 Albumin BCG dye [Mass/Vol] 4.9 g/dL 3.5-5.7 [facility] Alkaline phosphatase [Enzyma tic activity/volume] in Serum or PlasmaOrdered By: Vivian Lizzore on 12-29-2022 ALP [Catalytic activity/Vol] 60 U/L 34-104 [facility] Aspartate aminotransferase [ Enzymatic activity/volume] in Serum or PlasmaOrdered By: Vivian Bullimore on 12-29-2022 AST [Catalytic activity/Vol] 14 U/L 13-39 [facility] Automated erythrocytes count in urine sediment (number/area)Ordered By: Vivian Bullimore on 12-29-2022 RBC Auto (Urine sed) [#/Area] 1-2 [HPF] 0-4 [facility] Automated leukocytes count i n urine sediment (number/area)Ordered By: Vivian Terrellimore on 12-29-2022 WBC Auto (Urine sed) [#/Area] 20-49 [HPF] 0-4 [facility] Automated urine hyaline cast s count (number/volume)Ordered By: Vivianshad Tejadaimore on 12-29-2022 Hyaline casts Auto (U) [#/Vol] 10-19 [LPF] 0-1 [facility] Basophils Auto (Bld) [#/Vol] Ordered By: Vivianshad Tejadaimore on 12-29-2022 Basophils (Bld) [#/Vol] 0.0 10*3/uL 0.0-0.2 [facility] Basophils/100 WBC Auto (Bld) Ordered By: Vivian Terrellcindyore on 12-29-2022 Basophils/100 WBC (Bld) 0.4 % . F [facility] Bilirubin Test strip Ql (U)O rdered By: Vivian Nieto on 12-29-2022 Bilirubin Ql (U) Negative Negative [facility] Bilirubin.total [Mass/volume ] in Serum or PlasmaOrdered By: Vivian Tejadaimore on 12-29-2022 Bilirubin [Mass/Vol] 0.6 mg/dL 0.3-1.0 [facility] C reactive protein [Mass/vol ume] in Serum or PlasmaOrdered By: Vivian Tejadaimore on 12-29-2022 CRP [Mass/Vol] 3.1 mg/dL 0.0-0.5 [facility] Calcium [Mass/volume] in Ser um or PlasmaOrdered By: Vivian Nieto on 12-29-2022 Calcium [Mass/Vol] 10.0 mg/dL 8.6-10.3 [facility] Carbon dioxide, total [Moles /volume] in Serum or PlasmaOrdered By: Vivian Nieto on 12-29-2022 CO2 [Moles/Vol] 26.6 mmol/L 21.0-31.0 [facility] Casts typing in urine sedime nt by light microscopyOrdered By: PROVIDER TEMP on 12-29-2022 Casts LM Nom (Urine sed) N/A [facility] Chloride [Moles/volume] in S isabel or PlasmaOrdered By: Vivian Nieto on 12-29-2022 Chloride [Moles/Vol] 103 mmol/L 98-107 [facility] Color Auto (U)Ordered By: Radha Nieto on 12-29-2022 Color (U) Dark yellow Yellow [facility] Creatinine [Mass/volume] in Serum or PlasmaOrdered By: Vivian Nieto on 12-29-2022 Creatinine [Mass/Vol] 0.55 mg/dL 0.60-1.20 [facility] Eosinophils Auto (Bld) [#/Vo l]Ordered By: Vivian Nieto on 12-29-2022 Eosinophils (Bld) [#/Vol] 0.3 10*3/uL 0.0-0.45 [facility] Eosinophils/100 WBC Auto (Bl d)Ordered By: Vivian Nieto on 12-29-2022 Eosinophils/100 WBC (Bld) 3.2 % . [facility] Erythrocyte distribution wid th Auto (RBC) [Ratio]Ordered By: Vivian Nieto on 12-29-2022 Erythrocyte distribution width (RBC) [Ratio] 14.9 % 11.9-15.3 [facility] Erythrocyte sedimentation ra te by Photometric methodOrdered By: Vivian Nieto on 12-29-2022 ESR Photometric method (Bld) [Velocity] 21 mm/hr 0-19 [facility] Globulin Calc (S) [Mass/Vol] Ordered By: Vivian Nieto on 12-29-2022 Globulin (S) [Mass/Vol] 3.3 g/dL F [facility] Glucose [Mass/volume] in Ser um or PlasmaOrdered By: Vivian Nieto on 12-29-2022 Glucose [Mass/Vol] 75 mg/dL 70-100 [facility] Comment on above: ADA recommended refe rence rangeRandom Glucose Reference Range is dependent on time and content of last meal. Glucose of more than 200 mg/dL in a nonstressed, ambulatory subject supports the diagnosis of Diabetes Mellitus. HCG ( test) IA.rapi d Ql (U)Ordered By: PROVIDER TEMP on 12-29-2022 HCG ( test) Ql (U) Negative [facility] Hematocrit Auto (Bld) [Volum e fraction]Ordered By: Vivian Nieto on 12-29-2022 Hematocrit (Bld) [Volume fraction] 39.6 % 34.0-46.4 [facility] Hemoglobin [Mass/volume] in BloodOrdered By: Vivian Nieto on 12-29-2022 Hemoglobin (Bld) [Mass/Vol] 13.2 g/dL 11.8-15.4 [facility] Ketones Auto test strip (U) [Mass/Vol]Ordered By: Vivian Nieto on 12-29-2022 Ketones (U) [Mass/Vol] 3+ Negative [facility] Leukocytes [#/volume] correc michael for nucleated erythrocytes in Blood by Automated counOrdered By: Vivian Nieto on 12-29-2022 WBC corrected for nucl RBC Auto (Bld) [#/Vol] 9.8 10*3/uL 3.8-11.6 [facility] Lymphocytes Auto (Bld) [#/Vo l]Ordered By: Vivian Nieto on 12-29-2022 Lymphocytes (Bld) [#/Vol] 1.2 10*3/uL 1.00-4.8 [facility] Lymphocytes/100 WBC Auto (Bl d)Ordered By: Vivian Nieto on 12-29-2022 Lymphocytes/100 WBC (Bld) 11.9 % . [facility] MCH Auto (RBC) [Entitic mass ]Ordered By: Vivian Tejadaimore on 12-29-2022 MCH (RBC) [Entitic mass] 27.5 pg 24.7-34.3 [facility] MCHC Auto (RBC) [Mass/Vol]Or dered By: Vivian Bullimore on 12-29-2022 MCHC (RBC) [Mass/Vol] 33.3 g/dL 32.0-35.0 [facility] MCV Auto (RBC) [Entitic vol] Ordered By: Vivian Bullimore on 12-29-2022 MCV (RBC) [Entitic vol] 82.6 fL 80-100 [facility] Monocytes Auto (Bld) [#/Vol] Ordered By: Vivian Bullimore on 12-29-2022 Monocytes (Bld) [#/Vol] 0.5 10*3/uL 0.0-0.8 [facility] Monocytes/100 WBC Auto (Bld) Ordered By: Vivian Tejadaimore on 12-29-2022 Monocytes/100 WBC (Bld) 5.1 % . [facility] Neutrophils Auto (Bld) [#/Vo l]Ordered By: Vivian Tejadaimore on 12-29-2022 Neutrophils (Bld) [#/Vol] 7.8 10*3/uL 1.8-7.7 [facility] Neutrophils/100 WBC Auto (Bl d)Ordered By: Vivian Tejadaimore on 12-29-2022 Neutrophils/100 WBC (Bld) 79.4 % . [facility] Nitrite Test strip Ql (U)Ord ered By: Vivian Tejadaimdebra on 12-29-2022 Nitrite Ql (U) Negative Negative [facility] No Panel InformationOrdered By: Vivian Nieto on 12-29-2022 Estimated GFR (CKD-EPI) > 60.0 mL/Min [facility] Creatinine Clearance (Chem 123.12 [facility] Nucleated erythrocytes [Pres ence] in Blood by Automated countOrdered By: Vivian Nieto on 12-29-2022 Nucleated RBC Auto Ql (Bld) 0.1 /100{WBC} 0-0.5 [facility] Platelet mean volume Auto (B ld) [Entitic vol]Ordered By: Vivian Tejadaimore on 12-29-2022 Platelet mean volume (Bld) [Entitic vol] 7.7 fL 6.3-10.7 [facility] Platelets Auto (Bld) [#/Vol] Ordered By: Vivian Bullimore on 12-29-2022 Platelets (Bld) [#/Vol] 305 10*3/uL 150-450 [facility] Potassium [Moles/volume] in Serum or PlasmaOrdered By: Vivian Bullimore on 12-29-2022 Potassium [Moles/Vol] 3.6 mmol/L 3.5-5.1 [facility] Protein Auto test strip (U) [Mass/Vol]Ordered By: Vivian Bullimore on 12-29-2022 Protein (U) [Mass/Vol] 30 mg/dL Negative [facility] Protein [Mass/volume] in Ser um or PlasmaOrdered By: Vivian Bullimore on 12-29-2022 Protein [Mass/Vol] 8.2 g/dL 6.4-8.9 [facility] RBC Auto (Bld) [#/Vol]Ordere d By: Vivian Bullimore on 12-29-2022 RBC (Bld) [#/Vol] 4.79 10*6/uL 3.60-5.00 [facility] Serum or plasma albumin/glob ulin mass ratioOrdered By: Vivian Bullimore on 12-29-2022 Albumin/Globulin [Mass ratio] 1.5 {ratio} [facility] Serum or plasma anion gap de terminationOrdered By: Vivian Bullimore on 12-29-2022 Anion gap [Moles/Vol] 14.0 mmol/L 6.0-15.0 [facility] Sodium [Moles/volume] in Ser um or PlasmaOrdered By: Vivian Bullimore on 12-29-2022 Sodium [Moles/Vol] 140 mmol/L 136-145 [facility] Specific gravity Auto test s trip (U) [Rel density]Ordered By: Vivian Bullimore on 12-29-2022 Specific gravity (U) [Rel density] 1.030 1.001-1.03 0 [facility] Squamous epithelial cells de tection in urine sediment by light microscopyOrdered By: Vivian Nieto on 12-29-2022 Epithelial cells.squamous LM Ql (Urine sed) 10-19 [HPF] 0-2 [facility] Urea nitrogen [Mass/volume] in Serum or PlasmaOrdered By: Vivian Nieto on 12-29-2022 Urea nitrogen [Mass/Vol] 7 mg/dL 7-25 [facility] Urine bacteria detection by automated methodOrdered By: Vivian Nieto on 12-29-2022 Bacteria Auto Ql (U) None seen None Seen [facility] Urine clarity by refractomet ry automatedOrdered By: Vivian Nieto on 12-29-2022 Clarity Refractometry automated (U) Cloudy Clear [facility] Urine glucose measurement by automated test strip (mass/volume)Ordered By: Vivian Nieto on 12-29-2022 Glucose Auto test strip (U) [Mass/Vol] Normal mg/dL Normal [facility] Urine hemoglobin detection b y automated test stripOrdered By: Vivian Nieto on 12-29-2022 Hemoglobin Auto test strip Ql (U) Negative Negative [facility] Urine leukocyte esterase det ection by automated test stripOrdered By: Vivian Nieto on 12-29-2022 Leukocyte esterase Auto test strip Ql (U) 2+ Negative [facility] Urobilinogen Auto test strip (U) [Mass/Vol]Ordered By: Vivian Nieto on 12-29-2022 Urobilinogen (U) [Mass/Vol] Normal mg/dL Normal [facility] WBC Auto (Bld) [#/Vol]Ordere d By: Vivian Nieto on 12-29-2022 WBC (Bld) [#/Vol] 9.8 10*3/uL 3.8-11.6 [facility] pH Auto test strip (U)Ordere d By: Vivian Nieto on 12-29-2022 pH (U) 6.5 [pH] 5.0-9.0 [facility] Physician Referralon 023 Physician Referral [id number] Normal [facility] Ambulatory Visit Summaryon 0 11-06-2022 Ambulatory Visit [...] Appointments Follow Up with Kayy Fontana MD, [facility], MED When: Only if needed Where: [address] [place] [phone] Someone Will Contact You Regarding These Appointments [facility] [place]ulatory Referral, Gastroenterology, 11/06/22 14:38:00 EST, Abdominal pain Normal [facility] Family Medicine Office/Clini c Noteon 11-06-2022 [...] a 22 Years White Female presenting to [facility] with GI issues for long time [...] pain (R10.9: Unspecified abdominal pain) referral to [facility] GI placed since [facility] unable to get her in for a couple months keep food and symptom journal avoid trigger foods Ordered: [facility] External Ambulatory Referral 2. Diarrhea (R19.7: Diarrhea, unspecified) referral to [facility] GI placed since [facility] unable to get her in for a couple months keep food and symptom journal avoid trigger foods Ordered: [facility] External Ambulatory Referral Follow-up With When Contact Information Kayy Fontana MD, [facility], MED Only if needed [address] [place] [address]- [phone] Additional Instructions: Problem List/Past Medical History Ongoing No qualifying data Historical No qualifying data Medications Jencycla 0.35 mg oral tablet Allergies amoxicillin (Hives) Social History Tobacco Never (less than 100 in lifetime) Tobacco Use:. Never Smokeless Tobacco Use:., 11/06/2022 Immunizations Vaccine Date Status Comments influenza virus vaccine, inactivated - Not Given Patient Refuses SARS-CoV-2 mRNA (kang 5y-11y) vac - Not Given Patient Refuses Normal [facility] Comment on above: Result Comment: Elec tronically Signed By: Kayy Fontana MD\.br\Date and Time Signed: 11/06/22 14:45 EST Provider Letteron 11-06-2022 Provider Letter (Inserted Image. Trish ble to display) November 06, 2022 DAWN CUELLAR [address] [place] [address] [place] [address] DAWN CUELLAR T 2000 To Whom It May Concern, Please excuse above patient from work today, 11/06/22. Sincerely, Kayy Fontana MD [facility] Normal [facility] CBC AUTO DIFFon 07-24-2022 BASO # 0.1 103/ul Normal 0.0-0.1 [facility] Comment on above: Performed By: #### C BC #### [facility] [address] [place], [place] [address] Dr. Mariela Larkin Basophils/100 WBC (Bld) 0.4 % Normal 0.2-2.0 [facility] Comment on above: Performed By: #### C BC #### [facility] [address] [place] [address] Dr. Mariela Larkin EO # 0.3 103/ul Normal 0.0-0.7 [facility] Comment on above: Performed By: #### C BC #### [facility] [address] [place] [address] Dr. Mariela Larkin Eosinophils/100 WBC (Bld) 2.2 % Normal 0.9-7.0 [facility] Comment on above: Performed By: #### C BC #### [facility] [address] [place] [address] Dr. Mariela Larkin Erythrocyte distribution width (RBC) [Ratio] 16.8 % Critically high 11.0-15.0 [facility] Comment on above: Performed By: #### C BC #### [facility] [address] [place] [address] Dr. Mariela Larkin Hematocrit (Bld) [Volume fraction] 30.4 % Critically low 36.0-48.0 [facility] Comment on above: Performed By: #### C BC #### [facility] [address] [place] [address] Dr. Mariela Larkin Hemoglobin (Bld) [Mass/Vol] 10.0 g/dL Critically low 12.0-16.0 [facility] Comment on above: Performed By: #### C BC #### [facility] [address] [place] [address] Dr. Mariela Larkin IG # 0.13 10e3/ul Critically high 0.00-0.03 [facility] Comment on above: Performed By: #### C BC #### [facility] [address] [place] [address] Dr. Mariela Larkin IG % 0.9 % Critically high 0.0-0.5 [facility] Comment on above: Performed By: #### C BC #### [facility] [address] [place] [address] Dr. Mariela Larkin LYMPH # 3.1 103/ul Normal 1.2-3.8 [facility] Comment on above: Performed By: #### C BC #### [facility] [address] [place] [address] Dr. Mariela Larkin Lymphocytes/100 WBC (Bld) 22.4 % Normal 20.5-60.0 [facility] Comment on above: Performed By: #### C BC #### [facility] [address] [place] [address] Dr. Mariela Larkin MANUAL DIFF REQ NO Normal [facility] Comment on above: Performed By: #### C BC #### [facility] [address] [place] [address] Dr. Mariela Larkin MCH (RBC) [Entitic mass] 27.0 pg Normal 26.7-34.0 [facility] Comment on above: Performed By: #### C BC #### [facility] [address] [place] [address] Dr. Mariela Larkin MCHC (RBC) [Mass/Vol] 32.9 g/dL Normal 29.9-35.2 [facility] Comment on above: Performed By: #### C BC #### [facility] [address] [place] [address] Dr. Mariela Larkin MCV (RBC) [Entitic vol] 82.2 fL Normal 81.0-99.0 [facility] Comment on above: Performed By: #### C BC #### [facility] [address] [place] [address] Dr. Mariela Larkin MONO # 0.7 103/ul Normal 0.3-0.8 [facility] Comment on above: Performed By: #### C BC #### [facility] [address] [place] [address] Dr. Mariela Larkin Monocytes/100 WBC (Bld) 5.1 % Normal 1.7-12.0 [facility] Comment on above: Performed By: #### C BC #### [facility] [address] [place] [address] Dr. Mariela Larkin NEUT # 9.6 103/ul Critically high 1.4-6.5 [facility] Comment on above: Performed By: #### C BC #### [facility] [address] [place] [address] Dr. Mariela Larkin Neutrophils/100 WBC (Bld) 69.0 % Normal 43.0-75.0 [facility] Comment on above: Performed By: #### C BC #### [facility] [address] [place] [address] Dr. Mariela Larkin Platelet mean volume (Bld) [Entitic vol] 9.4 fL Critically low 9.5-13.5 [facility] Comment on above: Performed By: #### C BC #### [facility] [address] [place] [address] Dr. Mariela Larkin PLT 243 103/ul Normal 150-450 [facility] Comment on above: Performed By: #### C BC #### [facility] [address] [place] [address] Dr. Mariela Larkin RBC 3.70 106/ul Critically low 4.20-5.40 [facility] Comment on above: Performed By: #### C BC #### [facility] [address] [place] [address] Dr. Mariela Larkin WBC 13.9 103/ul Critically high 4.0-11.0 [facility] Comment on above: Performed By: #### C BC #### [facility] [address] [place] [address] Dr. Mariela Larkin Covid-19 PCR ([facility])on 07-10 SARS-CoV-2 (COVID-19) RNA OMAIRA+probe Ql (Unsp spec) Not detected Normal NOT DETECTED [facility] Comment on above: Result Comment: [...] for this test is supported by the Superintendent [employer] of [employer] and [employer] Service's declaration that [...] used). Performed By: #### C VDTBH #### [facility] [address] [place] [address] Dr. Mariela Larkin DIRECT COOMBSon 07-23-2022 DIRECT AYANNA Negative Normal [facility] Comment on above: Performed By: #### D IRCMB #### [facility] [address] [place] [address] Dr. Mariela Larkin DRUG SCREEN RAPID (URINE)on 07-23-2022 AMP Negative Normal NEGATIVE [facility] Comment on above: Performed By: #### A FPMAT #### [facility] [address] [place] [address] Dr. Mariela Larkin BAR Negative Normal NEGATIVE [facility] Comment on above: Performed By: #### A FPMAT #### [facility] [address] [place] [address] Dr. Mariela Larkin BUP Negative Normal NEGATIVE [facility] Comment on above: Performed By: #### A FPMAT #### [facility] [address] [place] [address] Dr. Mariela Larkin BZO Negative Normal NEGATIVE [facility] Comment on above: Performed By: #### A FPMAT #### [facility] [address] [place] [address] Dr. Mariela Larkin CECIL Negative Normal NEGATIVE [facility] Comment on above: Performed By: #### A FPMAT #### [facility] [address] [place] [address] Dr. Mariela Larkin CUT-OFFS SEE BELOW Normal [facility] Comment on above: Result Comment: AMP (Amphetamine): 500ng/mL, BAR (Barbituates): 200 ng/mL, BZO (Benzodiazepines): 150 ng/mL, BUP (Buprenorphine): 10 ng/mL, CECIL (Cocaine): 150 ng/mL, mAMP (Methamphetamine): 500 ng/mL, MTD (Methadone): 200 ng/mL, OPI (Opiates): 100 ng/mL, OXY (Oxycodone): 100 ng/mL, PCP (Phencyclidine): 25 ng/mL, PPX (Propoxyphene): 300 ng/mL, THC (Cannabinoids): 50 ng/mL, TCA (Trycyclic Antidepressants): 300 ng/mL Performed By: #### A FPMAT #### [facility] [address] [place] [address] Dr. Mariela Larkin DRUG CUT HEADER DRUG CLASS TEST SYST EM CUT-OFF CONCENTRATIONS ARE FOLLOWS: Normal [facility] Comment on above: Performed By: #### A FPMAT #### [facility] [address] [place] [address] Dr. Mariela Larkin mAMP Negative Normal NEGATIVE [facility] Comment on above: Performed By: #### A FPMAT #### [facility] [address] [place] [address] Dr. Mariela Larkin MTD Negative Normal NEGATIVE [facility] Comment on above: Performed By: #### A FPMAT #### [facility] [address] [place] [address] Dr. Mariela Larkin OPI Negative Normal NEGATIVE [facility] Comment on above: Performed By: #### A FPMAT #### [facility] [address] [place] [address] Dr. Mariela Larkin OXY Negative Normal NEGATIVE [facility] Comment on above: Performed By: #### A FPMAT #### [facility] [address] [place] [address] Dr. Mariela Larkin PCP Negative Normal NEGATIVE [facility] Comment on above: Performed By: #### A FPMAT #### [facility] [address] [place] [address] Dr. Mariela Larkin PPX Negative Normal NEGATIVE [facility] Comment on above: Performed By: #### A FPMAT #### [facility] [address] [place] [address] Dr. Mariela Larkin TCA Negative Normal NEGATIVE [facility] Comment on above: Performed By: #### A FPMAT #### [facility] [address] [place] [address] Dr. Mariela Larkin THC Positive Abnormal NEGATIVE [facility] Comment on above: Performed By: #### A FPMAT #### [facility] [address] [place] [address] Dr. Mariela Larkin TYPE AND SCREENon 07-23-2022 TYPE AND SCREEN Antibody Screen NEGA TIVE Blood Bank Notes orignal specimen hemolyzed, repeat testing performed on redraw. Hemolysis Blood Bank Notes could cause false positive reaction. ABO Rh Typing AB Rh Positive Normal [facility] Comment on above: Performed By: #### C VDTBH #### [facility] [address] [place] [address] Dr. Mariela Larkin CBC AUTO DIFFon 07-22-2022 BASO # 0.0 103/ul Normal 0.0-0.1 [facility] Comment on above: Performed By: #### C BC #### [facility] [address] [place] [address] Dr. Mariela Larkin Basophils/100 WBC (Bld) 0.2 % Normal 0.2-2.0 [facility] Comment on above: Performed By: #### C BC #### [facility] [address] [place] [address] Dr. Mariela Larkin EO # 0.2 103/ul Normal 0.0-0.7 [facility] Comment on above: Performed By: #### C BC #### [facility] [address] [place] [address] Dr. Mariela Larkin Eosinophils/100 WBC (Bld) 1.0 % Normal 0.9-7.0 [facility] Comment on above: Performed By: #### C BC #### [facility] [address] [place] [address] Dr. Mariela Larkin Erythrocyte distribution width (RBC) [Ratio] 16.3 % Critically high 11.0-15.0 [facility] Comment on above: Performed By: #### C BC #### [facility] [address] [place] [address] Dr. Mariela Larkin Hematocrit (Bld) [Volume fraction] 34.0 % Critically low 36.0-48.0 [facility] Comment on above: Performed By: #### C BC #### [facility] [address] [address] [address] Mariela Larkin Hemoglobin (Bld) [Mass/Vol] 11.0 g/dL Critically low 12.0-16.0 [facility] Comment on above: Performed By: #### C BC #### [facility] [address] [address] [address] Mariela Larkin IG # 0.14 10e3/ul Critically high 0.00-0.03 [facility] Comment on above: Performed By: #### C BC #### [facility] [address] [place] [address] Dr. Mariela Larkin IG % 0.9 % Critically high 0.0-0.5 [facility] Comment on above: Performed By: #### C BC #### [facility] [address] [place] [address] Dr. Mariela Larkin LYMPH # 2.5 103/ul Normal 1.2-3.8 [facility] Comment on above: Performed By: #### C BC #### [facility] [address] [place] [address] Dr. Mariela Larkin Lymphocytes/100 WBC (Bld) 15.9 % Critically low 20.5-60.0 [facility] Comment on above: Performed By: #### C BC #### [facility] [address] [place] [address] Dr. Mariela Larkin MANUAL DIFF REQ NO Normal [facility] Comment on above: Performed By: #### C BC #### [facility] [address] [place] [address] Dr. Mariela Larkin MCH (RBC) [Entitic mass] 26.2 pg Critically low 26.7-34.0 [facility] Comment on above: Performed By: #### C BC #### [facility] [address] [place] [address] Dr. Mariela Larkin MCHC (RBC) [Mass/Vol] 32.4 g/dL Normal 29.9-35.2 [facility] Comment on above: Performed By: #### C BC #### [facility] [address] [place] [address] Dr. Mariela Larkin MCV (RBC) [Entitic vol] 81.0 fL Normal 81.0-99.0 [facility] Comment on above: Performed By: #### C BC #### [facility] [address] [place] [address] Dr. Mariela Larkin MONO # 0.9 103/ul Critically high 0.3-0.8 [facility] Comment on above: Performed By: #### C BC #### [facility] [address] [place] [address] Dr. Mariela Larkin Monocytes/100 WBC (Bld) 5.5 % Normal 1.7-12.0 [facility] Comment on above: Performed By: #### C BC #### [facility] [address] [place] [address] Dr. Mariela Larkin NEUT # 11.9 103/ul Critically high 1.4-6.5 [facility] Comment on above: Performed By: #### C BC #### [facility] [address] [place] [address] Dr. Mariela Larkin Neutrophils/100 WBC (Bld) 76.5 % Critically high 43.0-75.0 [facility] Comment on above: Performed By: #### C BC #### [facility] [address] [place] [address] Dr. Mariela Larkin Platelet mean volume (Bld) [Entitic vol] 9.8 fL Normal 9.5-13.5 [facility] Comment on above: Performed By: #### C BC #### [facility] [address] [place] [address] Dr. Mariela Larkin PLT 268 103/ul Normal 150-450 [facility] Comment on above: Performed By: #### C BC #### [facility] [address] [place] [address] Dr. Mariela Larkin RBC 4.20 106/ul Normal 4.20-5.40 [facility] Comment on above: Performed By: #### C BC #### [facility] [address] [place] [address] Dr. Mariela Larkin WBC 15.6 103/ul Critically high 4.0-11.0 [facility] Comment on above: Performed By: #### C BC #### [facility] [address] [place] [address] Dr. Mariela Larkin GROUP B STREP CULTUREon [...] F Tetracycline >=16 R F Normal [facility] Comment on above: Performed By: #### C VDTBH #### [facility] [address] [place] [address] Dr. Mariela Larkin CHLAMYDIA/GONOCOCCUS OMAIRA ( AB/URINE/PAPon 07-12-2022 Chlamydia trachomatis, OMAIRA Negative Normal Negative [facility] Comment on above: Performed By: #### C VDTBH #### [facility] [address] [place] [address] Dr. Mariela Larkin Neisseria gonorrhoeae, OMAIRA Negative Normal Negative [facility] Comment on above: Performed By: #### C VDTBH #### [facility] [address] [place] [address] Dr. Mariela Larkin VAGINITIS/VAGINOSIS DNA PROB Kulwinder 07-11-2022 Marilynn species Positive Abnormal Negative [facility] Comment on above: Performed By: #### C VDTBH #### [facility] [address] [place] [address] Dr. Mariela Larkin Gardnerella vaginalis Negative Normal Negative [facility] Comment on above: Performed By: #### C VDTBH #### [facility] [address] [place] [address] Dr. Mariela Larkin Trichomonas vaginalis Negative Normal Negative [facility] Comment on above: Performed By: #### C VDTBH #### [facility] [address] [place] [address] Dr. Mariela Larkin UA (CLEAN/CATCH) OPHTHALMIC TECHNICIAN APPRENTICE/MICRO I F IND.on 07-04-2022 Bilirubin Ql (U) Negative Normal NEGATIVE [facility] Comment on above: Performed By: #### A FPMAT #### [facility] [address] [place] [address] Dr. Mariela Larkin Clarity (U) CLEAR Normal CLEAR [facility] Comment on above: Performed By: #### A FPMAT #### [facility] [address] [place] [address] Dr. Mariela Larkin Color (U) YELLOW Normal YELLOW [facility] Comment on above: Performed By: #### A FPMAT #### [facility] [address] [place] [address] Dr. Mariela Larkin Glucose Ql (U) Negative Normal NEGATIVE [facility] Comment on above: Performed By: #### A FPMAT #### [facility] [address] [place] [address] Dr. Mariela Larkin Hemoglobin Ql (U) Negative Normal NEGATIVE [facility] Comment on above: Performed By: #### A FPMAT #### [facility] [address] [place] [address] Dr. Mariela Larkin Ketones Ql (U) 15 mg/dl Abnormal NEGATIVE [facility] Comment on above: Performed By: #### A FPMAT #### [facility] [address] [place] [address] Dr. Mariela Larkin LEUKOCYTES Negative Normal NEGATIVE [facility] Comment on above: Performed By: #### A FPMAT #### [facility] [address] [place] [address] Dr. Mariela Larkin Nitrite Ql (U) Negative Normal NEGATIVE [facility] Comment on above: Performed By: #### A FPMAT #### [facility] [address] [address] [address] Mariela Larkin pH (U) 7.5 [pH] Normal 5-9 [facility] Comment on above: Performed By: #### A FPMAT #### [facility] [address] [address] [address] Mariela Larkin SPEC GRAVITY 1.020 Normal 1.005-<=1. 025 [facility] Comment on above: Performed By: #### A FPMAT #### [facility] [address] [place] [address] Dr. Mariela Larkin UA PROTEIN TRACE Normal NEGATIVE/ TRACE [facility] Comment on above: Performed By: #### A FPMAT #### [facility] [address] [place] [address] Dr. Mariela Larkin UR MICRO IND NOT INDICATED Normal [facility] Comment on above: Performed By: #### A FPMAT #### [facility] [address] [place] [address] Dr. Mariela Larkin Urobilinogen Qn (U) 1.0 {Vidya'U}/dL Normal 0.2 - 1. 0 [facility] Comment on above: Performed By: #### A FPMAT #### [facility] [address] [place] [address] Dr. Mariela Larkin US PREG GROWTHon 06-21-2022 [...] by: YENNI ROSE Date: 2022-06-21 18:37 Normal [facility] GLUCOSE - 1HRon 05-07-2022 Glucose [Mass/Vol] 120 mg/dL Critically high 74-106 [facility] Comment on above: Performed By: #### G LU1HR #### [facility] [address] [place] [address] Dr. Mariela Larkin HEMOGRAM AND PLATELon 2021 Hematocrit (Bld) [Volume fraction] 32.6 % Critically low 36.0-48.0 [facility] Comment on above: Performed By: #### A FPMAT #### [facility] [address] [place] [address] Dr. Mariela Larkin Hemoglobin (Bld) [Mass/Vol] 10.5 g/dL Critically low 12.0-16.0 [facility] Comment on above: Performed By: #### A FPMAT #### [facility] [address] [place] [address] Dr. Mariela Larkin MCH (RBC) [Entitic mass] 28.2 pg Normal 26.7-34.0 [facility] Comment on above: Performed By: #### A FPMAT #### [facility] [address] [place] [address] Dr. Mariela Larkin MCHC (RBC) [Mass/Vol] 32.2 g/dL Normal 29.9-35.2 [facility] Comment on above: Performed By: #### A FPMAT #### [facility] [address] [place] [address] Dr. Mariela Larkin MCV (RBC) [Entitic vol] 87.4 fL Normal 81.0-99.0 [facility] Comment on above: Performed By: #### A FPMAT #### [facility] [address] [place] [address] Dr. Mariela Larkin PLT 242 103/ul Normal 150-450 [facility] Comment on above: Performed By: #### A FPMAT #### [facility] [address] [place] [address] Dr. Mariela Larkin RBC 3.73 106/ul Critically low 4.20-5.40 [facility] Comment on above: Performed By: #### A FPMAT #### [facility] [address] [place] [address] Dr. Mariela Larkin WBC 13.2 103/ul Critically high 4.0-11.0 [facility] Comment on above: Performed By: #### A FPMAT #### [facility] [address] [place] [address] Dr. Mariela Larkin UA (CLEAN/CATCH) OPHTHALMIC TECHNICIAN APPRENTICE/MICRO I F IND.on 04-24-2022 Bilirubin Ql (U) Negative Normal NEGATIVE [facility] Comment on above: Performed By: #### U ACSIND #### [facility] [address] [place] [address] Dr. Mariela Larkin Clarity (U) CLEAR Normal CLEAR [facility] Comment on above: Performed By: #### U ACSIND #### [facility] [address] [place] [address] Dr. Mairela Larkin Color (U) YELLOW Normal YELLOW [facility] Comment on above: Performed By: #### U ACSIND #### [facility] [address] [place] [address] Dr. Mariela Larkin Glucose Ql (U) Negative Normal NEGATIVE [facility] Comment on above: Performed By: #### U ACSIND #### [facility] [address] [place] [address] Dr. Mariela Larkin Hemoglobin Ql (U) Negative Normal NEGATIVE [facility] Comment on above: Performed By: #### U ACSIND #### [facility] [address] [place] [address] Dr. Mariela Larkin Ketones Ql (U) TRACE Abnormal NEGATIVE [facility] Comment on above: Performed By: #### U ACSIND #### [facility] [address] [address] [address] Mariela Larkin LEUKOCYTES Negative Normal NEGATIVE [facility] Comment on above: Performed By: #### U ACSIND #### [facility] [address] [address] [address] Mariela Larkin Nitrite Ql (U) Negative Normal NEGATIVE [facility] Comment on above: Performed By: #### U ACSIND #### [facility] [address] [place] [address] Dr. Mariela Larkin pH (U) 8.0 [pH] Normal 5-9 [facility] Comment on above: Performed By: #### U ACSIND #### [facility] [address] [place] [address] Dr. Mariela Larkin SPEC GRAVITY 1.015 Normal 1.005-<=1. 025 [facility] Comment on above: Performed By: #### U ACSIND #### [facility] [address] [place] [address] Dr. Mareila Larkin UA PROTEIN Negative Normal NEGATIVE/ TRACE [facility] Comment on above: Performed By: #### U ACSIND #### [facility] [address] [place] [address] Dr. Mariela Larkin UR MICRO IND NOT INDICATED Normal [facility] Comment on above: Performed By: #### U ACSIND #### [facility] [address] [place] [address] Dr. Mariela Larkin Urobilinogen Qn (U) 0.2 {Vidya'U}/dL Normal 0.2 - 1. 0 [facility] Comment on above: Performed By: #### U ACSIND #### [facility] [address] [place] [address] Dr. Mariela Larkin US PREG ANATOMY SINGLEon [...] MARTIN VALVERDE Date: 2022-04-11 16:25 Normal [facility] AFP MATERNAL FOR SPINA BIFID Aon 03-09-2022 AFP MoM 1.59 Normal [facility] Comment on above: Performed By: #### A FPMAT #### [facility] [address] [address] [address] Mariela Larkin AFP Value 95.6 ng/mL Normal [facility] Comment on above: Performed By: #### A FPMAT #### [facility] [address] [address] [address] Mariela Larkin AFP, Serum for Spina Bifida Report Normal [facility] Comment on above: Performed By: #### A FPMAT #### [facility] [address] [address] [address] Mariela Larkin Comment Comment Normal [facility] Comment on above: Result Comment: Maryanne Hagen, Ph.D., [employer] Director . References: Available Upon Request. . Multiples Of Median Cutoffs For AFP Elevations Moran 2.5 Black 2.8 IDD 2.0 Twins 4.5 Abbreviation Definitions IDD - Insulin Dep Diabetes OSBR - Open Spina Bifida Risk . For further inquiries contact [facility] at [phone]. . This test was developed and its performance characteristics determined by [facility]. It has not been cleared or approved by the Food and Drug Administration. Performed By: #### A FPMAT #### [facility] [address] [address] [address] Mariela Grover Age Collection Date 18.4 weeks Normal [facility] Comment on above: Performed By: #### A FPMAT #### [facility] [address] [address] [address] Mariela Larkin Gestat, Age Based on MARILUZ Normal [facility] Comment on above: Result Comment: 07/11 Recalculations are not recommended when gestational dating by LMP and ultrasound are within 10 days. Performed By: #### A FPMAT #### [facility] [address] [address] [address] Mariela Larkin Insulin Dep Diabetes No Normal [facility] Comment on above: Performed By: #### A FPMAT #### [facility] [address] [place] [address] Dr. Mariela Larkin Interpretation Comment Normal [facility] Comment on above: Result Comment: Inte rpretation: [...] Customer Services to discuss available options. The [employer] recommends amniocentesis be offered to women age 35 and older. Performed By: #### A FPMAT #### [facility] [address] [place] [address] Dr. Mariela Larkin [age] Normal [facility] Comment on above: Performed By: #### A FPMAT #### [facility] [address] [place] [address] Dr. Mariela Larkin Multiple Gestation No Normal [facility] Comment on above: Performed By: #### A FPMAT #### [facility] [address] [place] [address] Dr. Mariela Larkin OSBR Risk 1 [place] 2154 [facility] Comment on above: Performed By: #### A FPMAT #### [facility] [address] [place] [address] Dr. Mariela Larkin PDF . Normal [facility] Comment on above: Performed By: #### A FPMAT #### [facility] [address] [place] [address] Dr. Mariela Larkin Race Normal [facility] Comment on above: Performed By: #### A FPMAT #### [facility] [address] [place] [address] Dr. Mariela Larkin Test Results: Negative [facility] Comment on above: Performed By: #### A FPMAT #### [facility] [address] [place] [address] Dr. Mariela Larkin HEP B SURFACE ANTIGEN SCREEN on 01-27-2022 HBsAg Screen Negative Normal Negative [facility] Comment on above: Performed By: #### C VDTBH #### [facility] [address] [place] [address] Dr. Mariela Larkin HEPATITIS C VIRUS AB W/ REFL EX QUANTon 01-27-2022 HCV AB <0.1 Normal 0.0-0.9 [facility] Comment on above: Performed By: #### A FPMAT #### [facility] [address] [place] [address] Dr. Mariela Larkin Interpretation: Comment Normal [facility] Comment on above: Result Comment: Nega tive Not infected with HCV, unless recent infection is suspected or other evidence exists to indicate HCV infection. Performed By: #### A FPMAT #### [facility] [address] [place] [address] Dr. Mariela Larkin HIV 1 AND 2 WITH REFLEXon HIV Screen 4th Generation wRfx Non-Reactive Normal Non Reactive [facility] Comment on above: Result Comment: HIV Negative HIV-1/HIV-2 antibodies and HIV-1 p24 antigen were NOT detected. There is no laboratory evidence of HIV infection. Performed By: #### C VDTBH #### [facility] [address] [place] [address] Dr. Mariela Larkin RPR QUANTon 01-27-2022 Rapid Plasma Reagin, Quant Non-Reactive Normal NonRea<1:1 [facility] Comment on above: Result Comment: Plea se Note: This test does not meet current guidelines for screening and diagnosis of syphilis. This test is intended for following treatment response in patients being treated for syphilis infection. To screen for syphilis infection, a reflex cascade that includes both RPR and a treponema-specific assay should be utilized, such as Treponema pallidum (Syphilis) Screening Crosby (340405) or Rapid Plasma Reagin (RPR) Test With Reflex to Quantitative RPR and Confirmatory Treponema pallidum Antibodies (139738). Performed By: #### R PRQ #### [facility] [address] [place] [address] Dr. Mariela Larkin RUBELLA AB IGGon 01-27-2022 Rubella Antibodies, IgG 3.63 index Normal Immu ne >0.99 [facility] Comment on above: Result Comment: Non- immune <0.90 Equivocal 0.90 - 0.99 Immune >0.99 Performed By: #### A FPMAT #### [facility] [address] [place] [address] Dr. Mariela Larkin CBC AUTO DIFFon 01-26-2022 BASO # 0.0 103/ul Normal 0.0-0.1 [facility] Comment on above: Performed By: #### A FPMAT #### [facility] [address] [place] [address] Dr. Mariela Larkin Basophils/100 WBC (Bld) 0.2 % Normal 0.2-2.0 [facility] Comment on above: Performed By: #### A FPMAT #### [facility] [address] [place] [address] Dr. Mariela Larkin EO # 0.2 103/ul Normal 0.0-0.7 [facility] Comment on above: Performed By: #### A FPMAT #### [facility] [address] [place] [address] Dr. Mariela Larkin Eosinophils/100 WBC (Bld) 2.5 % Normal 0.9-7.0 [facility] Comment on above: Performed By: #### A FPMAT #### [facility] [address] [place] [address] Dr. Mariela Larkin Erythrocyte distribution width (RBC) [Ratio] 14.1 % Normal 11.0-15.0 [facility] Comment on above: Performed By: #### A FPMAT #### [facility] [address] [place] [address] Dr. Mariela Larkin Hematocrit (Bld) [Volume fraction] 33.1 % Critically low 36.0-48.0 [facility] Comment on above: Performed By: #### A FPMAT #### [facility] [address] [place] [address] Dr. Mariela Larkin Hemoglobin (Bld) [Mass/Vol] 11.1 g/dL Critically low 12.0-16.0 [facility] Comment on above: Performed By: #### A FPMAT #### [facility] [address] [place] [address] Dr. Mariela Larkin IG # 0.03 10e3/ul Normal 0.00-0.03 [facility] Comment on above: Performed By: #### A FPMAT #### [facility] [address] [place] [address] Dr. Mariela Larkin IG % 0.3 % Normal 0.0-0.5 [facility] Comment on above: Performed By: #### A FPMAT #### [facility] [address] [place] [address] Dr. Mariela Larkin LYMPH # 1.1 103/ul Critically low 1.2-3.8 [facility] Comment on above: Performed By: #### A FPMAT #### [facility] [address] [place] [address] Dr. Mariela Larkin Lymphocytes/100 WBC (Bld) 11.7 % Critically low 20.5-60.0 [facility] Comment on above: Performed By: #### A FPMAT #### [facility] [address] [place] [address] Dr. Mariela Larkin MANUAL DIFF REQ NO Normal [facility] Comment on above: Performed By: #### A FPMAT #### [facility] [address] [place] [address] Dr. Mariela Larkin MCH (RBC) [Entitic mass] 29.1 pg Normal 26.7-34.0 [facility] Comment on above: Performed By: #### A FPMAT #### [facility] [address] [place] [address] Dr. Mariela Larkin MCHC (RBC) [Mass/Vol] 33.5 g/dL Normal 29.9-35.2 [facility] Comment on above: Performed By: #### A FPMAT #### [facility] [address] [place] [address] Dr. Mariela Larkin MCV (RBC) [Entitic vol] 86.9 fL Normal 81.0-99.0 [facility] Comment on above: Performed By: #### A FPMAT #### [facility] [address] [place] [address] Dr. Mariela Larkin MONO # 0.4 103/ul Normal 0.3-0.8 [facility] Comment on above: Performed By: #### A FPMAT #### [facility] [address] [place] [address] Dr. Mariela Larkin Monocytes/100 WBC (Bld) 4.0 % Normal 1.7-12.0 [facility] Comment on above: Performed By: #### A FPMAT #### [facility] [address] [place] [address] Dr. Mariela Larkin NEUT # 7.5 103/ul Critically high 1.4-6.5 [facility] Comment on above: Performed By: #### A FPMAT #### [facility] [address] [place] [address] Dr. Mariela Larkin Neutrophils/100 WBC (Bld) 81.3 % Critically high 43.0-75.0 [facility] Comment on above: Performed By: #### A FPMAT #### [facility] [address] [place] [address] Dr. Mariela Larkin Platelet mean volume (Bld) [Entitic vol] 9.6 fL Normal 9.5-13.5 [facility] Comment on above: Performed By: #### A FPMAT #### [facility] [address] [place] [address] Dr. Mariela Larkin PLT 225 103/ul Normal 150-450 [facility] Comment on above: Performed By: #### A FPMAT #### [facility] [address] [place] [address] Dr. Mariela Larkin RBC 3.81 106/ul Critically low 4.20-5.40 [facility] Comment on above: Performed By: #### A FPMAT #### [facility] [address] [place] [address] Dr. Mariela Larkin WBC 9.3 103/ul Normal 4.0-11.0 [facility] Comment on above: Performed By: #### A FPMAT #### [facility] [address] [place] [address] Dr. Mariela Larkin CULTURE URINEon 01-26-2022 CULTURE URINE Culture Observations : No growth Normal [facility] Comment on above: Performed By: #### U RCX #### [facility] [address] [place] [address] Dr. Mariela Larkin GLYCOHEMOGLOBIN A1Con 2021 ADA RECOMMENDATION SEE BELOW Normal [facility] Comment on above: Result Comment: ADA RECOMMENDED LIMIT 4.0 - 6.0 ADA THERAPEUTIC TARGET < 7.0 ACTION SUGGESTED > 7.0 Performed By: #### A FPMAT #### [facility] [address] [place] [address] Dr. Mariela Larkin Glucose [Mass/Vol] 94 mg/dL Normal [facility] Comment on above: Performed By: #### A FPMAT #### [facility] [address] [place] [address] Dr. Mariela Larkin HbA1c (Bld) [Mass fraction] 4.9 % Normal 4.5-6.2 [facility] Comment on above: Performed By: #### A FPMAT #### [facility] [address] [place] [address] Dr. Mariela Larkin DHRUV BOX TEST PT SEND OUTo n 01-26-2022 SENT TO REF LAB 01/26/2022 Normal [facility] Comment on above: Performed By: #### C VDTBH #### [facility] [address] [place] [address] Dr. Mariela Larkin TYPE AND SCREENon 01-26-2022 TYPE AND SCREEN Negative Normal [facility] Comment on above: Performed By: #### T NS #### [facility] [address] [place] [address] Dr. Mariela Larkin US PREG TVon 12-25-2021 [...] by: MARTIN VALVERDE Date: 2021-12-25 11:24 Normal [facility] Vital Signs Date Time Vital Sign Value Performing Clinician Facility 01-25-2025 10:37-0400 Body mass index (BMI) [Ratio] 20.58 kg/m2 Susan Troy NP Work Phone: [facility] 01-25-2025 10:37-0400 Body weight 51.03 kg Susan Woodrow [employer] Work Phone: [facility] 01-25-2025 10:37-0400 Diastolic blood pressure 60 mm[Hg] Susan Woodrow [employer] Work Phone: [facility] 01-25-2025 10:37-0400 Systolic blood pressure 100 mm[Hg] Susan Woodrow [employer] Work Phone: [facility] 12-07-2024 16:28-0400 Body mass index (BMI) [Ratio] 18.68 kg/m2 Demarco Kirby DO Work Phone: [facility] 12-07-2024 16:28-0400 Body weight 46.32 kg Demarco Kirby DO Work Phone: [facility] 12-07-2024 16:28-0400 Diastolic blood pressure 68 mm[Hg] Demarco Kirby DO Work Phone: [facility] 12-07-2024 16:28-0400 Systolic blood pressure 110 mm[Hg] Demarco Kirby DO Work Phone: [facility] 11-05-2024 13:27-0500 Body mass index (BMI) [Ratio] 17.96 kg/m2 Nom Nurse [facility] 11-05-2024 13:27-0500 Body weight 44.54 kg Nom Nurse [facility] 11-05-2024 13:27-0500 Diastolic blood pressure 60 mm[Hg] Nom Nurse [facility] 11-05-2024 13:27-0500 Systolic blood pressure 100 mm[Hg] Noms Nurse [facility] 09-21-2024 20:40-0500 Body temperature 97.9 [degF] Paramjit Elpa DO Work Phone: [facility] 09-21-2024 20:40-0500 Diastolic blood pressure 67 mm[Hg] Paramjit Tupa DO Work Phone: [facility] 09-21-2024 20:40-0500 Heart rate 67 /min Paramjit Tupa DO Work Phone: [facility] 09-21-2024 20:40-0500 Respiratory rate 20 /min Paramjit Gallegospa DO Work Phone: [facility] 09-21-2024 20:40-0500 SaO2% (BldA) [Mass fraction] 96 % Paramjit Tupa DO Work Phone: [facility] 09-21-2024 20:40-0500 Systolic blood pressure 112 mm[Hg] Paramjit Tupa DO Work Phone: [facility] 09-21-2024 20:39-0500 Body height 157.48 cm Paramjit Gallegospa DO Work Phone: [facility] 09-21-2024 20:39-0500 Body weight 45.35 kg Paramjit Gallegospa DO Work Phone: [facility] 08-25-2024 15:22-0500 Body mass index (BMI) [Ratio] 17.01 kg/m2 Anummckenna MarksArlington [employer] Work Phone: [facility] 08-25-2024 15:22-0500 Body temperature 97.7 [degF] Anum Clyde [employer] Work Phone: [facility] 08-25-2024 15:22-0500 Body weight 42.19 kg Anum Arlington [employer] Work Phone: [facility] 08-25-2024 15:22-0500 Diastolic blood pressure 80 mm[Hg] Anum Clyde [employer] Work Phone: [facility] 08-25-2024 15:22-0500 Heart rate 92 /min Anum Clyde [employer] Work Phone: [facility] 08-25-2024 15:22-0500 SaO2% (BldA) [Mass fraction] 99 % Anum [place] [employer] Work Phone: [facility] 08-25-2024 15:22-0500 Systolic blood pressure 120 mm[Hg] Anum Arlington [employer] Work Phone: [facility] 08-02-2024 09:20-0500 Body mass index (BMI) [Ratio] 17.01 kg/m2 Carlos Zaragoza MD, IBCLC Work Phone: [facility] 08-02-2024 09:20-0500 Body temperature 97.81 [degF] Carlos Zaragoza MD, IBCLC Work Phone: [facility] 08-02-2024 09:20-0500 Body weight 42.19 kg Carlos Zaragoza MD, IBCLC Work Phone: [facility] 08-02-2024 09:20-0500 Diastolic blood pressure 60 mm[Hg] Carlos Zaragoza MD, IBCLC Work Phone: [facility] 08-02-2024 09:20-0500 Heart rate 91 /min Carlos Zaragoza MD, IBCLC Work Phone: [facility] 08-02-2024 09:20-0500 SaO2% (BldA) [Mass fraction] 99 % Carlos Zaragoza MD, IBCLC Work Phone: [facility] 08-02-2024 09:20-0500 Systolic blood pressure 112 mm[Hg] Carlos Zaragoza MD, IBCLC Work Phone: [facility] 06-29-2024 10:37-0400 Body height 156.21 cm DO Divina Araya Work Phone: [facility] 06-29-2024 10:37-0400 Body temperature 98 [degF] DO Divina Araya Work Phone: [facility] 06-29-2024 10:37-0400 Body weight 40.9 kg DO Divina Araya Work Phone: [facility] 06-29-2024 10:37-0400 Diastolic blood pressure 68 mm[Hg] DO Divina Araya Work Phone: [facility] 06-29-2024 10:37-0400 Heart rate 76 /min DO Divina Araya Work Phone: [facility] 06-29-2024 10:37-0400 Respiratory rate 16 /min DO Divina Araya Work Phone: [facility] 06-29-2024 10:37-0400 SaO2% (BldA) [Mass fraction] 100 % DO Divina Araya Work Phone: [facility] 06-29-2024 10:37-0400 Systolic blood pressure 104 mm[Hg] DO Divina Araya Work Phone: [facility] 04-29-2024 15:45-0400 Body height 157.5 cm Zachary Araya DO Work Phone: [facility] 04-29-2024 15:45-0400 Body mass index (BMI) [Ratio] 16.97 kg/m2 Zachary Araya DO Work Phone: [facility] 04-29-2024 15:45-0400 Body temperature 98.71 [degF] Zachary Araya DO Work Phone: [facility] 04-29-2024 15:45-0400 Body weight 42.09 kg Zachary Araya DO Work Phone: [facility] 04-29-2024 15:45-0400 Diastolic blood pressure 64 mm[Hg] Zachary Araya DO Work Phone: [facility] 04-29-2024 15:45-0400 Heart rate 83 /min Zachary Araya DO Work Phone: [facility] 04-29-2024 15:45-0400 SaO2% (BldA) [Mass fraction] 98 % Zachary Araya DO Work Phone: [facility] 04-29-2024 15:45-0400 Systolic blood pressure 116 mm[Hg] Zachary Araya DO Work Phone: [facility] 04-17-2024 13:15-0400 Diastolic blood pressure 62 mm[Hg] DO Divina Araya Work Phone: [facility] 04-17-2024 13:15-0400 Heart rate 71 /min DO Divina Araya Work Phone: [facility] 04-17-2024 13:15-0400 Respiratory rate 18 /min DO Divina Araya Work Phone: [facility] 04-17-2024 13:15-0400 SaO2% (BldA) [Mass fraction] 97 % DO Divina Araya Work Phone: [facility] 04-17-2024 13:15-0400 Systolic blood pressure 113 mm[Hg] DO Divina Araya Work Phone: 2(746)757-416142 [place] [address] 04-17-2024 09:49-0400 Body height 154.94 cm DO Divina Araya Work Phone: [facility] 04-17-2024 09:49-0400 Body temperature 98 [degF] DO Divina Araya Work Phone: [facility] 04-17-2024 09:49-0400 Body weight 42.1 kg DO Divina Araya Work Phone: [facility] 10-13-2023 14:07-0500 Body temperature 98.4 [degF] DO Divina Araya Work Phone: [facility] 10-13-2023 14:07-0500 Diastolic blood pressure 56 mm[Hg] DO Divina Araya Work Phone: [facility] 10-13-2023 14:07-0500 Heart rate 78 /min DO Divina Araya Work Phone: [facility] 10-13-2023 14:07-0500 Respiratory rate 18 /min DO Divina Araya Work Phone: [facility] 10-13-2023 14:07-0500 SaO2% (BldA) [Mass fraction] 100 % DO Divina Araya Work Phone: 1(332)347-035653 [address] 10-13-2023 14:07-0500 Systolic blood pressure 103 mm[Hg] DO Divina Araya Work Phone: [facility] 10-13-2023 11:52-0500 Body height 154.94 cm DO Divina Araya Work Phone: [facility] 10-13-2023 11:52-0500 Body weight 43 kg DO Divina Araya Work Phone: 3(695)617-766242 [place] [address] 09-28-2023 16:24-0500 Body temperature 98.1 [degF] DO Divina Araya Work Phone: 7(793)251-022242 [place] [address] 09-28-2023 16:24-0500 Diastolic blood pressure 62 mm[Hg] DO Divina Araya Work Phone: 8(842)999-659942 [place] [address] 09-28-2023 16:24-0500 Heart rate 84 /min DO Divina Araya Work Phone: 3(872)415-824142 [place] [address] 09-28-2023 16:24-0500 Respiratory rate 24 /min DO Divina Araya Work Phone: 8(585)984-595142 [place] [address] 09-28-2023 16:24-0500 SaO2% (BldA) [Mass fraction] 99 % DO Divina Araya Work Phone: [facility] 09-28-2023 16:24-0500 Systolic blood pressure 103 mm[Hg] DO Divina Araya Work Phone: [facility] 09-28-2023 13:15-0500 Body height 156.21 cm DO Divina Araya Work Phone: [facility] 09-28-2023 13:15-0500 Body weight 40.75 kg DO Divina Araya Work Phone: [facility] 09-10-2023 09:49-0500 Diastolic blood pressure 59 mm[Hg] DO Divina Araya Work Phone: [facility] 09-10-2023 09:49-0500 Heart rate 65 /min DO Divina Araya Work Phone: [facility] 09-10-2023 09:49-0500 Respiratory rate 16 /min DO Divina Araya Work Phone: [facility] 09-10-2023 09:49-0500 SaO2% (BldA) [Mass fraction] 100 % DO Divina Araya Work Phone: [facility] 09-10-2023 09:49-0500 Systolic blood pressure 95 mm[Hg] DO Divina Araya Work Phone: [facility] 09-10-2023 07:42-0500 Body height 156.21 cm DO Divina Araya Work Phone: [facility] 09-10-2023 07:42-0500 Body weight 40.82 kg DO Divina Araya Work Phone: [facility] 06-03-2023 10:35-0400 Diastolic blood pressure 71 mm[Hg] DO Divina Araya Work Phone: [facility] 06-03-2023 10:35-0400 Heart rate 63 /min DO Divina Araya Work Phone: [facility] 06-03-2023 10:35-0400 Respiratory rate 16 /min DO Divina Araya Work Phone: [facility] 06-03-2023 10:35-0400 SaO2% (BldA) [Mass fraction] 100 % DO Divina Araya Work Phone: [facility] 06-03-2023 10:35-0400 Systolic blood pressure 106 mm[Hg] DO Divina Araya Work Phone: [facility] 06-03-2023 08:46-0400 Body height 157.48 cm DO Divina Dclauraskylar Work Phone: [facility] 06-03-2023 08:46-0400 Body weight 48.98 kg DO Divina Araya Work Phone: [facility] 04-25-2023 15:15-0400 Body height 165.35 cm Imad Asaad Other [employer] Other 04-25-2023 15:15-0400 Body mass index (BMI) [Ratio] 17.09 kg/m2 Imad Asaad Other [employer] Other 04-25-2023 15:15-0400 Body weight 46.72 kg Imad Asaad Other [employer] Other 04-25-2023 15:15-0400 Diastolic blood pressure 68 mm[Hg] Imad Asaad Other [employer] Other 04-25-2023 15:15-0400 Systolic blood pressure 110 mm[Hg] Imad Asaad Other [employer] Other 12-29-2022 15:12-0400 Body temperature 98.9 [degF] DO Divina Araya Work Phone: [facility] 12-29-2022 15:12-0400 Diastolic blood pressure 64 mm[Hg] DO Divina Araya Work Phone: [facility] 12-29-2022 15:12-0400 Heart rate 65 /min DO Divina Araya Work Phone: [facility] 12-29-2022 15:12-0400 Respiratory rate 18 /min DO Divina Dclauraskylar Work Phone: [facility] 12-29-2022 15:12-0400 SaO2% (BldA) [Mass fraction] 98 % DO Divina Araya Work Phone: [facility] 12-29-2022 15:12-0400 Systolic blood pressure 112 mm[Hg] DO Divina Araya Work Phone: [facility] 12-29-2022 12:53-0400 Body height 154.94 cm DO Divina Araya Work Phone: [facility] 12-29-2022 12:53-0400 Body weight 53.1 kg DO Divina Araya Work Phone: [facility] 11-06-2022 14:21-0500 Body temperature 98.6 [degF] [facility] 11-06-2022 14:21-0500 [facility] 77 [facility] 11-06-2022 14:21-0500 SaO2% (BldA) [Mass fraction] 98 % [facility] 03-09-2022 02:06-0400 Body weight 48.[address] DEMARCO ORR [facility] Comment on above: Performed By: #### AFPMAT #### [facility] [address] [place] [address] Dr. Mariela Larkin Encounters Encounter Date Encounter Type Care Provider Facility Start: 01-25-2025 End: 01-25-2025 Bamboo flowsheet Susan Troy [employer] Work Phone: [facility] Start: 01-25-2025 End: 01-26-2025 Bamboo flowsheet Susan Troy [employer] Work Phone: [facility] Start: 01-25-2025 End: 01-26-2025 External Result Encounter Susan Troy [employer] Work Phone: [facility] Unsolicited Start: 01-25-2025 End: 01-25-2025 ambulatory SUSAN TROY Not Available Start: 01-25-2025 End: 01-25-2025 Office outpatient visit 15 minutes Susan Troy [employer] Work Phone: [facility] Comment on above: Second trimester pre gnancy; 21 weeks gestation of ; Screening, , for anatomic survey; Vaginal discharge; STD exposure; Well woman exam with routine gynecological exam Start: 01-25-2025 End: 01-25-2025 Patient encounter procedure Susan Troy [employer] Work Phone: [facility] Start: 12-07-2024 End: 12-07-2024 ambulatory DEMARCO [...] 9w3d Start: 11-05-2024 End: 11-05-2024 ambulatory ZACHARY ARAYA Not Available Start: 09-21-2024 End: 09-21-2024 Emergency department patient visit Paramjit Yanes DO Work Phone: [facility] Work Phone: Start: 09-03-2024 End: 09-03-2024 Emergency department patient visit Paramjit Yanes DO Work Phone: [facility] Work Phone: Start: 08-25-2024 End: 08-25-2024 Office outpatient visit 25 minutes Anum Tang [employer] Work Phone: [facility] Comment on above: Late period (Primary Dx); Unprotected sex Start: 08-25-2024 End: 08-25-2024 ambulatory ANUM TANG Not Available Start: 08-25-2024 End: 08-25-2024 Bamboo flowsheet Anum Tang [employer] Work Phone: [facility] Start: 08-25-2024 End: 08-25-2024 Bamboo flowsheet Anum Tang [employer] Work Phone: [facility] Start: 08-02-2024 End: 08-02-2024 Office outpatient visit 15 minutes Carlos Zaragoza MD, IBCLC Work Phone: [facility] Comment on above: Viral URI with cough (Primary Dx) Start: 08-02-2024 End: 08-02-2024 ambulatory CARLOS ZARAGOZA Not Available Start: 06-29-2024 ambulatory Divina Araya Facili ty:[facility] Start: 06-29-2024 Registered Recurring Paramjit leary DO Work Phone: [facility] Start: 06-29-2024 End: 06-29-2024 Emergency department patient visit DO Divina Araya Work Phone: [facility] Work Phone: Start: 04-29-2024 End: 04-29-2024 Office outpatient visit 25 minutes Zachary Araya DO Work Phone: [facility] [phone] Comment on above: PTSD (post-traumatic stress disorder) (CMS/HCC) (Primary Dx); Bipolar 1 disorder (CMS/HCC); Allergic urticaria; Marijuana abuse; Abdominal discomfort; Mild intermittent asthma, unspecified whether complicated (CMS/HCC) Start: 04-29-2024 End: 04-29-2024 ambulatory ZACHARY ARAYA Not Available Start: 04-29-2024 End: 04-29-2024 Bamboo flowsheet Zachary Dclauraskylar DO Work Phone: [facility] 230 Start: 04-29-2024 End: 04-29-2024 Bamboo flowsheet Zachary Araya DO Work Phone: [facility] Start: 04-17-2024 End: 04-17-2024 Emergency department patient visit DO Divina Araya Work Phone: [facility] Work Phone: Start: 04-07-2024 End: 04-07-2024 ambulatory ZACHARY DCLAURASKYLAR Not Available Start: 10-13-2023 End: 10-13-2023 Emergency department patient visit DO Divina Araya Work Phone: [facility] Work Phone: Start: 09-28-2023 End: 09-28-2023 Emergency department patient visit DO Divina Araya Work Phone: [facility] Work Phone: Start: 09-10-2023 End: 09-10-2023 Admission to same day surgery center DO Divina Araya Work Phone: [facility] Work Phone: Start: 09-10-2023 End: 09-10-2023 ambulatory DO Divina Araya Work Phone: [facility] Work Phone: Start: 07-27-2023 End: 07-27-2023 ambulatory DO Divina Araya Work Phone: [facility] Work Phone: Start: 07-27-2023 End: 07-27-2023 Patient encounter procedure DO Divina Araya Work Phone: [facility] [place] Work Phone: Start: 07-11-2023 End: 07-11-2023 ambulatory Imad Asaad Other [employer] Other Start: 07-11-2023 Telephone encounter Imad Asaad [facility] Start: 06-03-2023 End: 06-03-2023 Admission to same day surgery center DO Divina Araya Work Phone: [facility] Work Phone: Start: 06-03-2023 End: 06-03-2023 ambulatory DO Divina Araya Work Phone: [facility] Work Phone: Start: 05-08-2023 End: 05-08-2023 ambulatory DO Divina Araya Work Phone: [facility] Work Phone: Start: 05-08-2023 End: 05-08-2023 Patient encounter procedure DO Divina Araya Work Phone: [facility] [place] Work Phone: Start: 04-25-2023 End: 04-25-2023 ambulatory Imad Asaad Other [employer] Other Start: 04-25-2023 FQ visit new patient Imad Asaad [facility] Start: 12-29-2022 End: 12-29-2022 Emergency department patient visit DO Divina Araya Work Phone: [facility] Work Phone: Start: 11-06-2022 End: 11-07-2022 ambulatory Kayy Gudimella Facility: [facility] Start: 11-06-2022 End: 11-06-2022 Patient encounter procedure Kayy Gudimella [facility] Start: 07-22-2022 End: 07-24-2022 [...] Procedure Procedure Detail Performing Clinician Start: 01-25-2025 RECURRENT VAGINITIS (HTRX) Suasn head [employer] Work Phone: Start: 01-25-2025 Urnls dip stick/tablet rgnt non-auto w/o micrscp Susan Troy [employer] Work Phone: Start: 12-03-2024 BOX TEST Demarco Kirby DO Work Phone: Start: 11-05-2024 Urnls dip stick/tablet rgnt non-auto w/o micrscp Demarco Kirby DO Work Phone: Start: 09-21-2024 Plain X-ray of right shoulder Paramjit El smith DO Work Phone: Start: 08-25-2024 Gonadotropin chorionic quantitative Lamar Tang [employer] Work Phone: Start: 08-25-2024 Urine test visual color cmprsn meths Anum Tang [employer] Work Phone: Start: 10-13-2023 Plain chest X-ray [...] Influenza vaccination Influenz a Vaccine (Season Ended) [facility] Start: 02-22-2025 End: 02-22-2025 Patient encounter procedure 02/22/2025 1:50 PM EDT Routine [facility] [address] [place] [address] [place] [address] Demarco Orr, DO [address] [place] [address] [facility] Start: 01-25-2025 End: 02-25-2025 Alpha fetoprotein, maternal Alpha fetoprotein, maternal Lab Routine Second trimester 21 weeks gestation of Expected: 01/25/2025 (Approximate), Expires: 02/25/2025 [facility] Comment on above: Expected: 01/25/2025 (Approximate), Expires: 02/25/2025 Start: 01-25-2025 End: 04-27-2025 US for US OB 14+ weeks anatomy scan Imaging Routine Screening, , for anatomic survey Expected: 01/25/2025, Expires: 04/27/2025 [facility] Comment on above: Expected: 01/25/2025 , Expires: 04/27/2025 Start: 12-07-2024 End: 12-07-2024 Patient encounter procedure 12/07/2024 3:50 PM EDT Routine [facility] [address] [place] [address] Demarco Orr, DO [address] [place] [address] [facility] Start: 12-03-2024 End: 12-03-2024 Patient encounter procedure 12/03/2024 10:10 AM EDT Routine [facility] [address] [facility] [place] [address] Demarco Orr, DO [address] [place] [address] [facility] Start: 11-09-2024 End: 11-09-2024 Patient encounter procedure 11/09/2024 1:20 PM EST Office Visit [facility] [address] [place] [id number] Cira Chairez PA [address] [place] [place] [address] [facility] Start: 11-05-2024 End: 11-05-2025 ABO/Rh ABO/Rh Lab Routine Missed menses , unspecified gestational age Expected: 11/05/2024 (Approximate), Expires: 11/05/2025 [facility] Comment on above: Expected: 11/05/2024 (Approximate), Expires: 11/05/2025 Start: 11-05-2024 End: 11-05-2025 Blood type and Indirect antibody screen panel - Blood Type and screen Lab Routine Missed menses , unspecified gestational age Expected: 11/05/2024 (Approximate), Expires: 11/05/2025 [facility] Comment on above: Expected: 11/05/2024 (Approximate), Expires: 11/05/2025 Start: 11-05-2024 End: 11-05-2025 Drugs of abuse panel - Urine by Screen method Rapid drug screen, urine Lab Routine , unspecified gestational age Encounter for supervision of normal first in first trimester Expected: 11/05/2024 (Approximate), Expires: 11/05/2025 [facility] Comment on above: Expected: 11/05/2024 (Approximate), Expires: 11/05/2025 Start: 11-05-2024 End: 11-05-2025 US Pelvis transvaginal [facility] Work Phone: Comment on above: Expected: 11/05/2024 , Expires: 11/05/2025 Start: 05-10-2024 Influenza vaccination Influenza Vacc ine (#1) [facility] Start: 04-29-2024 End: 04-29-2024 Patient encounter procedure 04/29/2024 4:00 PM EDT Office Visit [facility] [address] [place] [address] Zachary Araya DO [address] [place] [address] Arrived [facility] Comment on above: Arrived Start: 04-29-2024 End: 04-29-2025 Cotton linters, untreated IgE Cotton linters, untreated IgE Lab Routine Allergic urticaria Expected: 04/29/2024 (Approximate), Expires: 04/29/2025 [facility] Comment on above: Expected: 04/29/2024 (Approximate), Expires: 04/29/2025 Start: 04-29-2024 End: 04-29-2025 Dog dander IgE Dog dander IgE Lab Routine Allergic urticaria Expected: 04/29/2024 (Approximate), Expires: 04/29/2025 [facility] Comment on above: Expected: 04/29/2024 (Approximate), Expires: 04/29/2025 Start: 04-29-2024 End: 04-29-2025 Food allergy profile Food allergy profile Lab Routine Allergic urticaria Expected: 04/29/2024 (Approximate), Expires: 04/29/2025 [facility] Work Phone: Comment on above: Expected: 04/29/2024 (Approximate), Expires: 04/29/2025 Start: 04-29-2024 End: 04-29-2025 Nfel D 2 cat serum albumin IgE Nfel D 2 cat serum albumin IgE Lab Routine Allergic urticaria Expected: 04/29/2024 (Approximate), Expires: 04/29/2025 [facility] Comment on above: Expected: 04/29/2024 (Approximate), Expires: 04/29/2025 Start: 10-13-2023 [facility] Start: 09-28-2023 Bacteria identified in Urine by Culture [facility] Start: 09-10-2023 [facility] Start: 06-03-2023 [facility] Start: 05-08-2023 Ova and Parasite Concentrate Exam Ova and Parasite Concentrate Exam [facility] Start: 12-29-2022 Bacteria identified in Urine by Culture [facility] aPTT in Platelet poo r plasma by Coagulation assay [facility] Bacteria identified in Urine by Culture Urine culture Microbiology Routine Missed menses Ordered: 11/05/2024 [facility] Comment on above: Ordered: 11/05/2024 Calprotectin [Mass/m ass] in Stool [facility] CBC W Auto Different ial panel - Blood CBC and differential Lab Routine Missed menses , unspecified gestational age Ordered: 11/05/2024 [facility] Comment on above: Ordered: 11/05/2024 CHLAMYDIA TRACHOMATI S (GENITO/STI) CHLAMYDIA TRACHOMATIS (GENITO/STI) Lab Routine Vaginal discharge STD exposure Ordered: 01/25/2025 [facility] Comment on above: Ordered: 01/25/2025 Cytology Cervical or vaginal smear or scraping study Pap Smear Pathology and Cytology Routine Well woman exam with routine gynecological exam Ordered: 01/25/2025 [facility] Work Phone: Comment on above: Ordered: 01/25/2025 Elastase.pancreatic [Mass/mass] in Stool [facility] Fibrin D-dimer [Presence] in Platelet poor plasma by Latex agglutination [facility] Hemoglobin A1c/Hemoglobin.total in Blood Hemoglobin A1c Lab Routine Missed menses , unspecified gestational age Ordered: 11/05/2024 [facility] Comment on above: Ordered: 11/05/2024 Hepatitis B virus surface Ag [Presence] in Serum or Plasma by Immunoassay Hepatitis B surface antigen Lab Routine Missed menses , unspecified gestational age Ordered: 11/05/2024 [facility] Comment on above: Ordered: 11/05/2024 Hepatitis C virus Ab [Presence] in Serum or Plasma by Immunoassay Hepatitis C antibody Lab Routine Missed menses , unspecified gestational age Ordered: 11/05/2024 [facility] Comment on above: Ordered: 11/05/2024 HIV-1/HIV-2 antigen/antibody combination immunoassay HIV-1 and HIV-2 antibodies Lab Routine Missed menses , unspecified gestational age Ordered: 11/05/2024 [facility] Comment on above: Ordered: 11/05/2024 INR in Platelet poor plasma by Coagulation assay [facility] Neisseria gonorrhoea e DNA [Presence] in Unspecified specimen by OMAIRA with probe detection Neisseria gonorrhea DNA probe, direct Lab Routine Vaginal discharge STD exposure Ordered: 01/25/2025 [facility] Comment on above: Ordered: 01/25/2025 Ova and parasites identified in Unspecified specimen by Light microscopy [facility] Patient Education [facility] Work Phone: Patient referral [facility] Work Phone: Prothrombin time (PT) [facility] Reagin Ab [Presence] in Serum by RPR RPR Lab Routine Missed menses , unspecified gestational age Ordered: 11/05/2024 [facility] Comment on above: Ordered: 11/05/2024 Rubella antibody, IgG Rubella an tibody, IgG Lab Routine Missed menses , unspecified gestational age Ordered: 11/05/2024 [facility] Comment on above: Ordered: 11/05/2024 SURESWAB(R) ADVANCED VAGINITIS PLUS, TMA SURESWAB(R) ADVANCED VAGINITIS PLUS, TMA Pathology and Cytology Routine Vaginal discharge STD exposure Ordered: 01/25/2025 [facility] Comment on above: Ordered: 01/25/2025 Immunizations Immunization Date Immunization Notes Care Provider Reyes solorio 06-02-2020 Human Papillomavirus 9-valent vaccine Zachary Araya DO Work Phone: [facility] 06-02-2020 meningococcal oligosaccharide (groups A, C, Y and W-135) diphtheria toxoid conjugate vaccine (MCV4O) Zachary Araya DO Work Phone: [facility] 06-02-2015 human papilloma viru s vaccine, quadrivalent Zachary Araya DO Work Phone: [facility] 06-02-2015 influenza, seasonal, injectable Zachary Araya DO Work Phone: [facility] 06-02-2015 meningococcal polysaccharide (groups A, C, Y and W-135) diphtheria toxoid conjugate vaccine (MCV4P) Zachary Araya DO Work Phone: [facility] 06-02-2015 tetanus toxoid, redu ekaterina diphtheria toxoid, and acellular pertussis vaccine, adsorbed Zachary Araya DO Work Phone: [facility] 06-02-2015 influenza virus vaccine, unspecified formulation Zachary Araya DO Work Phone: [facility] 03-19-2007 hepatitis A vaccine, unspecified formulation Zachary Araya DO Work Phone: [facility] 05-07-2006 diphtheria, tetanus toxoids and acellular pertussis vaccine, unspecified formulation Zachary Araya DO Work Phone: [facility] 05-07-2006 hepatitis A vaccine, unspecified formulation Zachary Araya DO Work Phone: [facility] 05-07-2006 measles, mumps and rubella virus vaccine Zachary Araya DO Work Phone: [facility] 05-07-2006 pneumococcal conjuga te vaccine, 7 valent Zachary Araya DO Work Phone: [facility] 05-07-2006 poliovirus vaccine, inactivated Zachary Araya DO Work Phone: [facility] 05-07-2006 varicella virus vaccine Rhea Araya DO Work Phone: [facility] 07-12-2003 diphtheria, tetanus toxoids and acellular pertussis vaccine Zachary Araya DO Work Phone: [facility] 07-12-2003 haemophilus influenz ae type b vaccine, PRP-T conjugate Zachary Araya DO Work Phone: [facility] 07-12-2003 measles, mumps and rubella virus vaccine Zachary Araya DO Work Phone: [facility] 07-12-2003 pneumococcal conjuga te vaccine, 7 valent Zachary Araya DO Work Phone: [facility] 07-12-2003 varicella virus vaccine Rhea Araya DO Work Phone: [facility] 2002 diphtheria, tetanus toxoids and acellular pertussis vaccine, unspecified formulation Zachary Araya DO Work Phone: [facility] 2002 haemophilus influenz ae type b conjugate and Hepatitis B vaccine Zachary Araya DO Work Phone: [facility] 2002 poliovirus vaccine, inactivated Zachary Araya DO Work Phone: [facility] 2002 diphtheria, tetanus toxoids and acellular pertussis vaccine, unspecified formulation Zachary Araya DO Work Phone: [facility] 2002 haemophilus influenz ae type b vaccine, conjugate unspecified formulation Zachary Araya DO Work Phone: [facility] 2002 pneumococcal conjuga te vaccine, 7 valent Zachary Araya DO Work Phone: [facility] 2002 poliovirus vaccine, inactivated Zachary Araya DO Work Phone: [facility] 2002 diphtheria, tetanus toxoids and acellular pertussis vaccine, unspecified formulation Zachary Araya DO Work Phone: [facility] 2002 haemophilus influenz ae type b conjugate and Hepatitis B vaccine Zachary Araya DO Work Phone: [facility] 2002 pneumococcal conjuga te vaccine, 7 valent Zachary Araya DO Work Phone: [facility] 2002 poliovirus vaccine, inactivated Zachary Araya DO Work Phone: [facility] 2002 hepatitis B vaccine, pediatric or pediatric/adolescent dosage Zachary Araya DO Work Phone: [facility] NEGATED: Highlighted row has not occurred!11-06-2022 influenza virus vaccine, unspecified formulation [facility] NEGATED: Highlighted row has not occurred!11-06-2022 SARS-CoV-2 mRNA (tozinameran 5y-11y) vaccine [facility] Payers Date Payer Category Payer Self-pay [id number] 2023 Medicaid [employer] [place] [id number] 2023-Present [address] [place] [address] [id number] 2022 Medicaid (Managed Care) 1.2. [id number] 2013 Unknown HCAP/HFA/FAP Active [id number] 2002 Unknown [id number] 2.16.840.1.141196.3.579.2.5 93 2002 Unknown [id number] 2.16.840.1.543035.3.579.2.5 93 2002 Unknown [id number] 2.16.840.1.198261.3.579.2.5 93 2002 Unknown [id number] 2.16.840.1.304857.3.579.2.5 93 2002 Unknown [id number] 2.16.840.1.327823.3.579.2.5 93 2002 Unknown [id number] 2.16.840.1.064867.3.579.2.5 93 2002 Unknown [id number] 2.16.840.1.183350.3.579.2.5 93 2002 Unknown [id number] 2.16.840.1.319700.3.579.2.5 93 2002 Unknown [id number] 2.16.840.1.874459.3.579.2.5 93 2002 Unknown [id number] 2.16.840.1.801883.3.579.2.5 93 2002 Unknown [id number] 2.16.840.1.440441.3.579.2.7 27 2002 Unknown [id number] 2.16.840.1.889309.3.579.2.1 259 2002 Unknown [id number] 2.16.840.1.600232.3.579.2.1 259 2002 Unknown [id number] 2.16.840.1.346115.3.579.2.1 259 2002 Unknown [id number] 2.16.840.1.354175.3.579.2.1 259 2002 Unknown [id number] 2.16.840.1.466907.3.579.2.1 259 2002 Unknown [id number] 2.16.840.1.362652.3.579.2.1 259 2002 Unknown [id number] 2.16.840.1.616192.3.579.2.1 259 2002 Unknown [id number] 2.16.840.1.002072.3.579.2.1 259 2002 Unknown [id number] 2.16.840.1.747089.3.579.2.1 259 1959 Unknown [id number] Unknown [id number] 2.16.840.1.166161.3.579.2.5 93 Unknown [id number] 2.16.840.1.678119.3.579.2.5 31 Unknown [id number] 2.16.840.1.196632.3.579.2.5 31 Unknown [id number] 2.16.840.1.836491.3.579.2.5 31 Unknown [id number] 2.16.840.1.980414.3.579.2.5 31 Unknown [id number] 2.16.840.1.845189.3.579.2.5 31 Unknown [id number] 2.16.840.1.815620.3.579.2.5 31 Social History Date Type Detail Facility Start: 11-06-2022 End: 04-07-2023 Tobacco smoking status Never smoked tobacco (finding) [facility] Tobacco smoking status Never [facility] Start: 04-29-2024 End: 01-06-2025 Sex Assigned At Female [facility] Start: 2000 Sex Assigned At Female [facility] Start: 09-10-2023 End: 09-21-2024 Tobacco smoking status NHIS Smoker (finding) [facility] Start: 04-07-2023 Tobacco use and exposure Smokeless tobacco non-user [facility] Start: 08-02-2024 End: 12-07-2024 Alcoholic beverage intake Lifetime non-drinker (finding) [facility] Start: 04-29-2024 End: 01-06-2025 History of Social function [facility] Work Phone: Start: 04-07-2023 Alcohol Comment caffeine: occasional [facility] Start: 2000 Sex assigned at Not on file [facility] Start: 09-21-2024 Sex Female (finding) [facility] Start: 09-14-2024 [facility] NEGATED: Highlighted row [facility] Goals Date Patient Goal Desired Activity /State Functional Status Date Assessment Result Facility 11-06-2022 Functional Status N/A [facility] Clinical Notes 11-06-2022 to 01-25-2025 Eileen Koehler MA - 01/25/2025 10:10 AM Ulises Batista, AIR TESTER - 12/07/2024 3:50 PM Zulma Everett LPN [...] 2 puffs, Inhalation, Every 4 hours PRN [id number] ( 1 + IRON PO) 1 tablet, Daily ALLERGIES Allergies Allergen Reactions Tilactase Diarrhea Amoxicillin Unknown Milk (Cow) Unknown PROBLEMS Active Ambulatory Problems Diagnosis Date Noted Anxiety 04/09/2023 Asthma 04/09/2023 Gastroesophageal reflux disease without esophagitis 04/09/2023 Left wrist pain 04/09/2023 Multiple joint pain 04/09/2023 PTSD (post-traumatic stress disorder) ([facility]) 12/20/2023 depression ([facility]) 12/20/2023 Marijuana abuse 04/28/2024 Resolved Ambulatory Problems Diagnosis Date Noted ADHD (attention deficit hyperactivity disorder) ([facility]) 12/20/2023 Past Medical History: Diagnosis Date Acid reflux Allergies Episodic tension type headache Fractured nose HISTORY PAST MEDICAL HISTORY SOCIAL HISTORY Past Medical History: Diagnosis Date Acid reflux ADHD (attention deficit hyperactivity disorder) ([facility]) 12/20/2023 Allergies Asthma Episodic tension type headache [...] nursing note reviewed. Exam conducted with a coil connector present. Vitals: Estimated body mass index is [...] by Eileen Koehler MA on behalf of: Susan Troy NP documented in this encounter [facility] 12-07-2024 History of Presen [...] joint pain 04/09/2023 PTSD (post-traumatic stress disorder) ([facility]) 12/20/2023 depression ([facility]) 12/20/2023 Marijuana abuse 04/28/2024 Resolved Ambulatory Problems Diagnosis Date Noted ADHD (attention deficit hyperactivity disorder) ([facility]) 12/20/2023 Past Medical History: Diagnosis Date Acid reflux Allergies Episodic tension type headache Fractured nose HISTORY PAST MEDICAL HISTORY SOCIAL HISTORY Past Medical History: Diagnosis Date Acid reflux ADHD (attention deficit hyperactivity disorder) ([facility]) 12/20/2023 Allergies Asthma Episodic tension type headache [...] nursing note reviewed. Exam conducted with a coil connector present. Vitals: Estimated body mass index is [...] or undercooked meat, and stay away from [facility]. Patient has been consulted regarding any further do's and don'ts of . Patient voiced understanding and all questions and concerns were answered. Follow Up: Patient is to return in 4 weeks for routine OB appointment. Documented by Jennifer Batista LPN on behalf of: Demarco Orr DO documented in this encounter [facility] 11-05-2024 History of Presen [...] Problems Diagnosis Date Noted Anxiety 04/09/2023 Asthma ([facility]) 04/09/2023 Gastroesophageal reflux disease without esophagitis 04/09/2023 Left wrist pain 04/09/2023 Multiple joint pain 04/09/2023 PTSD (post-traumatic stress disorder) ([facility]) 12/20/2023 depression ([facility]) 12/20/2023 Marijuana abuse 04/28/2024 Resolved Ambulatory Problems Diagnosis Date Noted ADHD (attention deficit hyperactivity disorder) ([facility]) 12/20/2023 Past Medical History: Diagnosis Date Acid [...] or undercooked meat, and stay away from [facility]. Patient has also been advised to not change litter boxes and eat 6 small meals a day. Patient has been consulted regarding the do's and don'ts of . Patient was given labs and all questions and concerns were answered. Patient was given [place] labs to have completed and to schedule [...] Cee Everett LPN documented in this encounter [facility] 08-25-2024 History of Presen t illness Narrative Images from the original note were not included. [address] [facility], [address] P: [phone] F: [phone] HPI Historian of HPI: patient Dawn Cuellar [...] call with results when available. Follow-up with WEIGHT AND TEST BAR CLERK - hCG, quantitative, documented in this encounter [facility] 08-02-2024 History of Luana damon illness Narrative Images from the original note were not included. [address] , [address] [facility], [address] P: [phone] F: [phone] HPI Historian of HPI: patient Dawn Cuellar [...] Final PERFORMING LAB: 07/24/2022 see note Final [facility] - [address] [address] ,Ext. [phone] ASSESSMENT & PLAN: Assessment & Plan Viral URI with cough Symptoms and time course consistent with viral URI. Reviewed [id number] symptomatic treatments, including NSAIDs/acetaminophen for fever and myalgias, decongestants, nasal sprays and ample hydration. Advised patient return to clinic if symptoms suddenly worsen or do not improve after 7-10 days of symptoms. Provided reassurance. Carlos Zaragoza MD, IBCLC [facility] documented in this encounter [facility] 04-29-2024 History of Presen t illness Narrative Images from the original note were not included. SUBJECTIVE: Dawn Cuellar is a 24 y.o. female presents with chief complaint of No chief complaint on file. Pt presents to discuss an increase in her anxiety, possibility of undiagnosed bipolar, would like a referral to an humidifier operator to test to see if she might be allergic to some types of foods, and to do a follow up for her ER visit on 04-17-24. This was due to stomach issues with the possibility of either a stomach bug or the flu. Review of Systems: Review of Systems Problem List: Patient Active Problem List Diagnosis Anxiety Asthma ([facility]) Gastroesophageal reflux disease without esophagitis Left wrist pain Multiple joint pain PTSD (post-traumatic stress disorder) ([facility]) depression ([facility]) Marijuana abuse Past Medical History: Past Medical History: Diagnosis Date Acid reflux ADHD (attention deficit hyperactivity disorder) ([facility]) 12/20/2023 Allergies Asthma ([facility]) Episodic tension type headache Fractured nose Family [...] for this visit: PTSD (post-traumatic stress disorder) ([facility]) Patient advised to return if symptoms worsen [...] recurs Mild intermittent asthma, unspecified whether complicated (CMS/HCC) Problem is stable, will continue with current [...] tablet, Rfl: 0 documented in this encounter [facility] 09-28-2023 Hospital Discharg e [...] keep anything down, or any other concerns [facility] Work Phone: 09-10-2023 Procedure note [facility] 07-11-2023 Evaluation note Encounter Date Diagnosis Assessment Notes Jul, Diarrhea (ICD-10 - R19.7) Jul, Weight loss (ICD-10 - R63.4) [employer] Other 09-25-2023 History and physical note Author Jordi Seals [facility] June 03, 2023 9:43am Note Date/Time June 03, 2023 9:43am [facility] [address] [place] [address] Gastroenterology H&P Signed Patient: Dawn Cuellar MR#: [id number] : 2000 Acct:[id number] Age/Sex: 23 / F Adm Date: 3 Loc: Room: Type: [facility] Attending Dr: Jordi Seals MD Copies to: [...] MD 06/03/23941 Signed By: <Electronically signed by oJrdi Seals MD> 06/03/23942 [facility] Work Phone: 1(120) 552-785609-25-2023 [facility]* Encounter Date Diagnosis Assessment Notes Treatment Notes Treatment Clinical Notes Apr, Diarrhea (ICD-10 - R19.7) Patient was seen in the ER and was advise by ER to see neurophysiological technician Patient will have labs done ordered today Apr, Unintentional weight loss (ICD-10 - R63.4) Patient is to have a colonoscopy that it will be scheduled today prep instructions given in office today Risks and benefits of procedure explained to patient; patient verbalizes understanding. [employer] Other 02-28-2023 Hospital Discharge instructions Follow Up Care 11/06/2022 13:26:54 With:Kayy Fontana MD, [facility], [facility] Address: [address] [place] [phone] When: only if needed [facility] Evaluation + Plan [facility] Evaluation noteNo assessment information available [facility] Work Phone: Evaluation note* Diagnosis Viral URI with cough- Primary [facility] Diagnosis PTSD (post-traumatic stress disorder) (CMS/HCC)- Primary Posttraumatic stress disorder Bipolar 1 disorder ([facility]) Allergic urticaria Marijuana abuse Nondependent cannabis abuse, unspecified Abdominal discomfort Abdominal pain, unspecified site Mild intermittent asthma, unspecified whether complicated (CMS/HCC) [facility] [...] Routine gynecological examination documented in this encounter [facility] Author Jordi Seals [facility] September 10, 2023 9:00am Note Date/Time September 10, 2023 9: 00am [facility] [address] [place] [address] Gastroenterology H&P Signed Patient: Dawn Cuellar MR#: [id number] : 2000 Acct:[id number] Age/Sex: 23 / F Adm Date: 4 Loc: Room: Type: [facility] Attending Dr: Jordi Seals MD Copies to: [...] signed by Jordi Seals MD> 09/10/23 0900 [facility] Work Phone: History general Narrative - Reported* Type Description Date Medical History hx of acid reflux Medical History lactose intolerance Surgical History FINGER SURGERY Hospitalization History 2.5 weeks old for milk a llergy [employer] Other Hospital course Narrative No data available for this section [facility] Hospital Discharge instructions Additional Instructions [...] high fever vomiting or any other concerns [facility] Work Phone: Hospital Discharge instructions [...] 45 -Follow up with PCP. -Office number [phone]. [facility] Work Phone: Hospital Discharge instructions Additional Instructions [...] in the office as scheduled -Office number [phone]. [facility] Work Phone: Hospital Discharge instructions Additional Instructions Follow-up with mental health Return to ED if develop worsening symptoms or [facility] Work Phone: Progress note No data available for this section [facility] Reason for referral (narrative) , [facility] GI please Referred by: Kayy Fontana MD [facility] Summary Purpose Family History [...] Complaint Abd pain Chief Complaint Abd pain [facility] Chief Complaint Admit Date [facility] June 29, 2024 1 0:34am BH June 29, 2024 3 :39pm lightheaded, nausea Juan 26th, 2024 6:13pm right shoulder pain/injury September 21, 2024 8:31pm Additional Source Comments INFORMATION SOURCE (unrecogn ized section and content) DATE CREATED AUTHOR 08/07/2022 [facility] DATE CREATED AUTHOR AUTHOR'S ORGANIZ ATION 11/15/2022 Faraz Umana [facility] DATE CREATED AUTHOR AUTHOR'S ORGANIZ ATION 10/02/[address] 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 [employer] [facility]. provides no warranty or guarantee of the accuracy or completeness of information in this document.
--- NOTE | 2025-01-27 11:53 | US_ITS ---
The [address] [address] Patient Name: KATHY MAJOR MRN: [id number] date: 2000 Sex: F Assigned Patient Location: Current Patient Location: Accession/Order Number: [id number] Exam Date: 01/27/2025 12:50 Report Date: 01/27/2025 12:56 At the request of: RONA SALDANA DO Procedure: US OB cervical length CLINICAL DATA: Anatomy survey ULTRASOUND OB ANATOMY COMPARISON: None There is a single live intrauterine gestation in transverse presentation, head to the maternal left. The placenta is anterior and unremarkable in appearance and position. The amniotic fluid volume is subjectively normal. There is cardiac and somatic activity with heart rate of 152 bpm. The neural axis and all 4 extremities were surveyed by the service center assistant and no abnormalities were identified. The facial features, four-chamber heart, right and left outflow tracts, diaphragm, stomach, bladder, kidneys and three-vessel cord with insertion are visualized. The following measurements were obtained: Biparietal diameter 5.2 cm 21 weeks 6 days 63% Head circumference 18.7 cm 21 weeks 0 days 22% Abdominal circumference 15.9 cm 21 weeks 0 days 31% Femur length 3.4 cm 20 weeks 6 days 20% The composite ultrasound age based these measurements is 21 weeks 1 day +/- 1 week 3 days. This correlates with dates based on last menstrual period. US/US OB anatomy IMPRESSION: SINGLE LIVE INTRAUTERINE GESTATION WITH ULTRASOUND AGE OF 21 WEEKS 1 DAY. UNREMARKABLE ANATOMY SURVEY. ULTRASOUND OB CERVICAL LENGTH COMPARISON: None The cervix was evaluated with a transvaginal probe. The service center assistant noted contractions during evaluation. There is no evidence of previa. The cervix is closed and measures approximately 3.7 cm in length. IMPRESSION: CLOSED CERVIX, WITHOUT ABNORMALITY. Impression dictated by: Catherine Cortes M.D. 01/27/2025 12:56 PM Dictation Location: [place] [address] Electronically authenticated by: [id number] Y Date: 01/27/2025 12:56
== END 2025-01-27 10:15 | disposition home or self-care (01) ==
LOC: US 10:15
PROVIDERS: PCP Family Medicine; Visit Provider Obstetrics & Gynecology
DX: Z36.89 Encounter for other specified antenatal screening (principal); Z3A.21 21 weeks gestation of pregnancy
CPT/HCPCS: 76805; 76817

== ENCOUNTER 2025-03-29 16:16 | Outpatient (OUT) | payer OTHER, SELFPAY ==
--- OUTSIDE RECORDS SUMMARY | 2020-06-02 09:45 | XMS_ITS | Continuity of Care Document ---
Author Organization [facility] Address [address] [place] [address] Phone Care Team Providers Care Litigation Secretary Name Role Phone Andres Edgar Unavailable Unavailable Procedures Procedure Date Imm Admin Through 20 Yrs Of Age 020 Meningococcal Conjugate Vaccine 020 Imm Admin Through 20 Yrs Of Age 020 HPV 9 Valent No Charge Imm Admin Through 20 Yrs Of Age 015 H PAP[place]OMA VACC 3 DOSE IM Imm Admin Through 20 Yrs Of Age 015 FLU VAC NO PRSV 4 MICHAEL 3 YRS+ Imm Admin Through 20 Yrs Of Age 015 Meningococcal Conjugate Vaccine 015 Imm Admin Through 20 Yrs Of Age 015 TDAP VACCINE >7 IM OFFICE/OUTPATIENT VISIT, EST H PAPILL[place] VACC 3 DOSE IM FLU VAC NO PRSV 4 MICHAEL 3 YRS+ Meningococcal Conjugate Vaccine 015 TDAP VACCINE >7 IM OFFICE/OUTPATIENT VISIT, EST Advance Directives Directive Yes / No Effective Date File Name No Information Encounters Encounter Description Practice Location Reason(s) For Visit Diagnoses Date Provider Providers Copied on Encounter [facility], [address], [place], [id number], tel:[phone] [facility] No Information Edward Arciniega. [address], [place], [id number], [place]. tel:[phone] [facility], [address], [place], [id number], [place] tel:[phone] [facility] No Information Edward Arciniega. [address], [place], [id number], [place]. tel:[phone] OFFICE/OUTPATI ENT VISIT, [facility], [address], [place], [id number], [place] tel:[phone] [facility] No Information Edward Arciniega. [address], [place], [id number], [place]. tel:[phone] OFFICE/OUTPATI ENT VISIT, [facility], [address], [place], [id number], [place] tel:[phone] [facility] No Information Edward Arciniega. [address], [place], [id number], [place]. tel:[phone] Family History Family Member Type Diagnosis Age At Onset No Information Immunizations Vaccine Date Status Comments meningococcal MCV4P administered Source: New Immunization Record meningococcal B, OMV, 2 dose schedule refused Source: New Immuniza tion Record HPV (9-valent) administered Source: New I mmunization Record HPV administered Source: New Imm unization Record Influenza virus vaccine, injectable, quadrivalent, split virus, preservative free, 3 years or older Fluarix, Flulaval or Fluzone Quad administered Source: New Immuniza tion Record MCV4 administered Source: New Imm unization Record Tdap administered Source: New Imm unization Record Payers Payer name Insurance type Covered democrat ID Authoriza tion(s) Medicaid Wrap - [facility] [id number] Medicaid W[place] - [facility] [id number] Medicaid Wrap - [facility] [place] [id number] Social History Type Description Quantity Date Captured Comments Alcohol Use Details Unknown Caffeine Use Details Unknown Tobacco Use Status No Information Smoking Status No Information Sex Female Sexual Orientation Don't Know Gender Identity Female Chief Complaint And Reason For Visit No Information Reason For Referral Reason For Referral No Information History Of Present Illness Encounter Date Complaint History Of Prese nt Illness No Information Functional Status Date Functional Assessmen t No Information Instructions Date Instruction Additional Infor mation No Information Assessments Type Assessment Date No Information Patient Care Teams Name Effective Dates (start - stop) Status Members No Information
--- OUTSIDE RECORDS SUMMARY | 2025-03-29 15:50 | XMS_ITS | Encounter Summary ---
Author Organization [facility] Address [address] [place] [address] Care Team Providers Care Campaign Fundraiser Name Role Phone Quiana Diego Artis DO Primary Care Provider [phone] DerianDiego tabares DO Unavailable [phone] Reason for Visit * Reason Comments Routine Visit Encounter Details Date Type Department Care Team (Latest Contact Info) Description 03/29/2025 3:50 PM EDT Routine [facility] [address] [facility] [place] [address] Cira Chairez PA [address] [facility] [address] [place], [facility] Size of fetus inconsistent with dates in first trimester ([facility]) (Primary Dx); Third trimester ([facility]); 30 weeks gestation of ([facility]); Gastroesophageal reflux in ([facility]) Social History Tobacco Use Types Packs/Day Years Used Date Smoking Tobacco: Never Smokeless Tobacco: Never Alcohol Use Standard Drinks/Week Comments Never 0 (1 standard drink = 0.6 oz pur e alcohol) caffeine: occasional PHQ-2 Answer Date Recorded Patient Health Questionnaire-2 Score 0 03/01/2025 Estimated Date of Delivery Comme nts Yes 06/07/2025 Based on last me nstrual period of 08/31/2024 Sex and Gender Information Value Date Recorded Sex Assigned at Not on file Legal Sex Female 6:53 PM EDT Gender Identity Not on file Sexual Orientation Not on file documented as of this encounter Last Filed Vital Signs Vital Sign Reading Time Taken Comments Blood Pressure 116/64 03/29/2025 3:55 PM EDT Pulse - - Temperature - - Respiratory Rate - - Oxygen Saturation - - Inhaled Oxygen Concentration - - Weight 55.9 kg (123 lb 4 oz) 03/29/2025 3:55 PM EDT Height - - Body Mass Index 22.54 04/29/2024 3:45 PM EDT documented in this encounter Plan of Treatment Upcoming Encounters Date Type Department Care Team (Late st Contact Info) Description 04/13/2025 10:00 AM EDT Ancillary Procedure [facility] [address] [facility] [place] [phone] 04/13/2025 10:30 AM EDT Routine [facility] [address] [facility] [place] [id number] Demarco Orr, DO [address] [place] [address] Dr [place], [place] [id number] Scheduled Orders Name Type Priority Associated Diagnoses Orde r Schedule US OB follow up transabdominal approach Imaging Routine Size of fetus inconsistent with dates in first trimester ([facility]) Expected: 03/29/2025, Expires: 07/30/2025 CBC and differential Lab Routine Third trimester ([facility]) Ordered: 03/29/2025 Hemoglobin A1c Lab Routine Third trimester ([facility]) Ordered: 03/29/2025 documented as of this encounter Procedures Procedure Name Priority Date/Time Associated Diagnosis Comments POCT URINALYSIS DIPSTICK Routine 03/29/2025 3:59 PM EDT Third trimester ([facility]) documented in this encounter Results * (ABNORMAL) POCT urinalysis dipstick manually resulted (03/29/2025 3:59 PM EDT) Color, UA Yellow Clarity, UA Clear Glucose, UA Negative Negative - 2000(110) ++++ mg/dL Bilirubin, UA Negative Negative - 4(70) +++ mg/dL Ketones, UA Negative Negative - 160(16) ++++ mg/dL Spec Grav, UA 1.010 1 - 1.03 Blood, UA Negative Negative - 50 Regino/mcL pH, UA 7.5 5 - 9 Protein, UA Trace Negative - 2000(20) ++++ mg/dL Urobilinogen, UA 0.2 0.2 - 12 mg/dL Leukocytes, UA Negative Negative - 500+++ Dara/mcL Nitrite, UA Negative Negative - Positive Urine 03/29/2025 3:59 PM EDT Cira BROWN POINT OF CARE TEST ENTER/EDIT OR DERABLES Final Result documented in this encounter Visit Diagnoses Diagnosis Size of fetus inconsistent with dates in first trimester ([facility])- Primary Third trimester ([facility]) state, incidental 30 weeks gestation of ([facility]) Gastroesophageal reflux in ([facility]) documented in this encounter Care Teams Campaign Fundraiser Relationship Specialty Start Date End Date Deigo Araya DO [address] [place] [address] PCP - General Family Medicine 04/09/23 Diego Araya DO [address] [place] [address] PCP - [facility] 06/09/24 documented as of this encounter
--- OUTSIDE RECORDS SUMMARY | 2025-03-29 16:20 | XMS_ITS | Encounter Summary ---
Author Organization [facility] Address [address] [place] [address] Care Team Providers Care Family Medicine Chair Name Role Phone Quiana Diego Artis DO Primary Care Provider DerianDiego tabares DO Unavailable [phone] Encounter Details Date Type Department Care Team (Late Contact Info) Description 11/05/2024 Abstract [facility] OB [address] [place] [address] Demarco Orr [facility] [address] [place], [place] [address] Social History Tobacco Use Types Packs/Day Years [...] EDT Ancillary Procedure [facility] OB [address] [place] [address] 04/13/2025 10:30 AM EDT Routine [facility] [address] [facility] [address] Demarco Orr DO [address] [facility] [place] [address] documented as of this encounter Visit Diagnoses Not on filedocumented in this encounter Care Teams Family Medicine Chair Relationship Specialty Start Date End Date Diego Araya DO [address] [facility] [address] [place] [address] PCP - General Family Medicine 04/09/23 Diego Araya DO [address] [facility] [address] [place] [address] PCP - [facility] 06/09/24 documented as of this encounter
--- OUTSIDE RECORDS SUMMARY | 2025-03-29 16:20 | XMS_ITS | Patient Health Record ---
Author Organization [employer] [facility] Address [address] [place] [address] Care Team Providers Care Healthcare Consultant Name Role Phone Toy Tee Primary Care Provider Reason For Referral No Information Plan Of Treatment No Information Insurance Providers Payer Name Payer Address Payer Phone Subscriber Number Group Number Insured Name Patient Relationship to Insured Coverage Start Date Coverage End Date Dental [employer] [address] [address] [place] [address] [phone] [id number] KATHY MAJOR Self - patient is the insured 3 [employer] W[employer] [facility] [employer] [place] [address] [place] [address] [id number] KATHY MAJOR Self - patient is the insured 3
--- OUTSIDE RECORDS SUMMARY | 2025-03-29 16:20 | XMS_ITS | Continuity of Care Document ---
Author Organization [facility] Address [address] [place] [address] Phone [phone] Care Team Providers Care Crib Attendant Name Role Phone Kayy Fontana MD Care Team Information Casiei eunice Unavailable SYED KAMARA MD Care Team Information Rece iver Unavailable Kayy Fontana MD Primary Care Physician Unav ailable Allergies and adverse reactions Active Allergies Criticality Reaction Severity Comments Date Amoxicillin Unable to assess criticality Weal (disorder) 11/15/2022
--- OUTSIDE RECORDS SUMMARY | 2025-03-29 16:20 | XMS_ITS | Encounter Summary ---
Author Organization [facility] Address [address] [place] [address] Care Team Providers Care Financial Internship Name Role Phone Quiana Diego Artis DO Primary Care Provider [phone] DerianDiego tabares DO Unavailable Encounter Details Date Type Department Care Team (Late Contact Info) Description 11/05/2024 Abstract [facility] OB [address] [place] [address] Demarco Orr [facility] [address] [place], [place] [address] Social History Tobacco Use Types Packs/Day Years [...] Procedure [facility] OB [address] [place] [address] 04/13/2025 10:30 AM EDT Routine [facility] OB [address] [facility] [place] [address] Demarco Orr DO [address] [facility] [place] [address] documented as of this encounter Visit Diagnoses Not on filedocumented in this encounter Care Teams Financial Internship Relationship Specialty Start Date End Date Diego Araya DO [address] [facility] [address] [place] [address] PCP - General Family Medicine 04/09/23 Diego Araya DO [address] [facility] [address] [place] [address] PCP - [facility] 06/09/24 documented as of this encounter
--- OUTSIDE RECORDS SUMMARY | 2025-03-29 16:20 | XMS_ITS | Encounter Summary ---
Author Organization [facility] Address [address] [place] [address] Care Team Providers Care Negotiator Sales Name Role Phone Quiana Diego Artis DO Primary Care Provider [phone] Diego rAaya DO Unavailable [phone] Encounter Details Date Type Department Care Team (Late Contact Info) Description 03/17/2025 Abstract [facility] OB [address] [place] [address] Eileen Koehler MA Social History Tobacco Use Types Packs/Day Years [...] Department Care Team (Late Contact Info) Description 04/13/2025 10:00 AM EDT Ancillary Procedure [facility] OB [address] [place] [address] 04/13/2025 10:30 AM EDT Routine [facility] OB [address] [place] [address] Demarco Orr DO [address] [place] [address] [place] [address] documented as of this encounter Visit Diagnoses Not on filedocumented in this encounter Care Teams Negotiator Sales Relationship Specialty Start Date End Date Diego Araya DO [address] [place] [address] PCP - General Family Medicine 04/09/23 Diego Araya DO [address] [place] [address] PCP - [facility] 06/09/24 documented as of this encounter
--- OUTSIDE RECORDS SUMMARY | 2025-03-29 16:20 | XMS_ITS | Encounter Summary ---
Author Organization [facility] Address [address] [place] [address] Care Team Providers Care Workers Compensation Analyst Name Role Phone Quiana Diego Artis DO Primary Care Provider [phone] DerianDiego tabares DO Unavailable [phone] Encounter Details Date Type Department Care Team (Late Contact Info) Description 03/29/2025 Bamboo flowsheet [facility] OB [address] [place] [address] Cira Chairez PA [address] [place] [address] [address] [place], [facility]11 Social History Tobacco Use Types Packs/Day Years [...] EDT Ancillary Procedure [facility] OB [address] [place] [address] 04/13/2025 10:30 AM EDT Routine [facility] OB [address] [facility] [address] Demarco Orr DO [address] [facility] [place] [address] documented as of this encounter Visit Diagnoses Not on filedocumented in this encounter Care Teams Workers Compensation Analyst Relationship Specialty Start Date End Date Diego Araya DO [address] [facility] [address] [place] [address] PCP - General Family Medicine 04/09/23 Diego Araya DO [address] [facility] [address] [place] [address] PCP - [facility] 06/09/24 documented as of this encounter
--- OUTSIDE RECORDS SUMMARY | 2025-03-29 16:20 | XMS_ITS ---
Author Organization [employer] [facility] Source Produ ction (ClinicalSummary Clone) Address Unknown Care Team Providers Care Certified Medical Asst Name Role Phone Unavailable Primary Care Physician Unavailab le Results * [UNITY] ANEUPLOIDY NIPT Performed by: [place] Component Value Range Date Fraction 10.8% 12/10/2024 [...]
--- OUTSIDE RECORDS SUMMARY | 2025-03-29 16:20 | XMS_ITS | Clinical Summary ---
Author Organization [facility] Address [address] [place] [address] Care Team Providers Care Crown Ironer Operator Name Role Phone Diego Araya DO Primary Care Provider Diego Araya DO Unavailable Allergies Active Allergy Reactions Criticality Noted Date Comments Amoxicillin Unknown 04/09/2023 Tilactase Diarrhea High 05/31/2020 Medications albuterol HFA 90 mcg/act inhalerIndicatio ns:Mild intermittent asthma, unspecified whether complicated (HCC) Inhale 2 puffs every 4 (four) hours if needed for wheezing or shortness of breath 18 g 3 12/20/19 24 Active Rusndbym-Rqs-Es- FA ( 1 + IRON PO) Take 1 tablet by mouth Daily Active fluticasone (Flonase) 50 MCG/ACT nasal spray Administer 2 sprays into each nostril Daily 02/25/20 25 Active omeprazole (PriLOSEC) [address] Garcia ns:Gastroesophag eal Reflux Disease,Heartbur n Take 1 capsule (20 mg) by mouth in the morning. Take before meals. Do not crush or chew. 30 capsule 3 03/29/20 25 025 Active omeprazole (PriLOSEC) [address] Garcia ns:Gastroesophag eal Reflux Disease,Heartbur n Take 1 capsule (20 mg) by mouth in the morning. Take before meals. Do not crush or chew. 30 capsule 3 02/23/20 25 025 Discontinued Active Problems Problem Noted Date Diagnosed Date Second trimester ([facility]) 02/22/2025 25 weeks gestation of ([facility]) 2024 Marijuana abuse 04/28/2024 PTSD (post-traumatic stress disorder) [...] Encounters Date Type Department Care Team Description 03/29/2025 3:50 PM EDT Routine [facility] [address] [place] [address] Cira Chairez PA Size of fetus inconsistent with dates in first trimester ([facility]) (Primary Dx); Third trimester ([facility]); 30 weeks gestation of ([facility]); Gastroesophageal reflux in ([facility]) 03/29/2025 Bamboo flowsheet [facility] [address] [place] [address] Cira Chairez PA 03/17/2025 Abstract [facility] [address] [place] [address] Eileen Koehler MA 03/01/2025 Patient Outreach [facility] [address] [place] [phone] Cira Figueroa LPN 02/25/2025 Telephone [facility] [address] [place] [address] Mo Boucher LPN ER Follow-up 02/24/2025 Abstract [facility] [address] [place] [address] Diego Araya DO 02/22/2025 1:50 PM EDT Routine [facility] [address] [place] [address] Rona Orr, Second trimester ([facility]); 25 weeks gestation of ([facility]); Diabetes mellitus screening; Gastroesophageal reflux in ([facility]) 02/22/2025 Bamboo flowsheet [facility] [address] [place] [address] Rona Orr, 02/09/2025 Orders Only [facility] [address] [place] [address] Cee Everett, UI ENGINEER 02/03/2025 Patient Outreach [facility] [place] [id number] [place] [address] Cira Figueroa UI ENGINEER 02/03/2025 Patient Outreach [facility] [place] [address] [place] [address] Cira Figueroa, [facility] 01/30/2025 External Result Encounter [facility] External Department Unsolicited Dank Lala MD 01/30/2025 External Result Encounter [facility] External Department Unsolicited Dank Lala MD 01/27/2025 Telephone [facility] [address] [place] [address] Vivian Galeana UI ENGINEER 01/27/2025 Abstract [facility] [address] [place] [address] Diego Araya 01/27/2025 Clinisync Result Encounter [facility] External Department Unsolicited Provider, Generic External Data 01/27/2025 Abstract [facility] [address] [place] [address] Rona Orr, 01/25/2025 10:10 AM EDT Routine [facility] [address] [place] [address] Cynthia Troy NP Second trimester ([facility]); 21 weeks gestation of ([facility]); Screening, , for anatomic survey ([facility]); Vaginal discharge; STD exposure; Well woman exam with routine gynecological exam 01/25/2025 Clinisync Result Encounter [facility] External Department Unsolicited Provider, Generic External Data 01/25/2025 External Result Encounter [facility] External Department Unsolicited Cynthia Troy NP 01/25/2025 Bamboo flowsheet [facility] [address] [facility] [place] [phone] Cynthia Troy NP 01/06/2025 Patient Outreach [facility] [address] [place] [address] Cira Figueroa LPN from Last 3 Months Immunizations Immunization Administration [...] Pressure 116/64 03/29/2025 3:55 PM EDT Pulse 92 08/25/2024 3:22 PM EST Temperature 36.5 C (97.7 F) 08/25/2024 3:22 PM EST Respiratory Rate - - Oxygen Saturation 99% 08/25/2024 3:22 PM EST Inhaled Oxygen Concentration - - Weight 55.9 kg (123 lb 4 oz) 03/29/2025 3:55 PM EDT Height 157.5 cm (5' 2 ) 04/29/2024 3:45 PM EDT Body Mass Index 22.54 04/29/2024 3:45 PM EDT Plan of Treatment Upcoming Encounters Date Type Department Care Team (Late st Contact Info) Description 04/13/2025 10:00 AM EDT Ancillary Procedure [facility] [address] [place] [address] [place] [address] 04/13/2025 10:30 AM EDT Routine [facility] [address] [place] [address] [place] [address] Rona Orr, DO [address] [place] [address] [place] [address] Health Maintenance Due Date Last Done Comments Influenza Vaccine (#1) 2025 06/02/2015 Procedures Procedure Name Priority Date/Time Associated Diagnosis Comments POCT URINALYSIS DIPSTICK Routine 03/29/2025 3:59 PM EDT Third trimester ([facility]) POCT URINALYSIS DIPSTICK Routine 02/22/2025 2:20 PM EDT Second trimester ([facility]) 25 weeks gestation of ([facility]) OB URINE DRUG SCREEN (NO THC) STAT 01/30/2025 11:13 AM EDT URINALYSIS, MANUAL ONLY STAT 01/30/2025 11:13 AM EDT US OB ANATOMY 01/27/2025 12:56 PM EDT RECURRENT VAGINITIS (HTRX) Routine 01/25/2025 11:14 AM EDT POCT URINALYSIS DIPSTICK Routine 01/25/2025 10:43 AM EDT 21 weeks gestation of ([facility]) IGP,APTIMA HPV,AGE GDLN Routine 01/25/2025 10:16 AM EDT PAP SMEAR Routine 01/25/2025 12:00 AM EDT from Last 3 Months Results * (ABNORMAL) POCT urinalysis dipstick manually resulted (03/29/2025 3:59 PM EDT) Only the most recent of3 resultswithin the time period is included. Color, [...] Positive Urine 03/29/2025 3:59 PM EDT Cira Wildwood PA POINT OF CARE TEST ENTER/EDIT OR DERABLES Final Result * OB URINE DRUG SCREEN (NO THC) (01/30/2025 11:13 AM EDT) AMPHETAMINE SCREEN,URINE Negative Negative 01/30/2025 11:46 AM EDT [facility] BARBITURATE SCREEN,URINE Negative Negative [facility] BENZOD[facility]ZEPINES [facility],URINE Negative Negative 01/30/2025 11:46 AM EDT [facility] COCAINE SCREEN,URINE Negative Negative 01/30/2025 11:46 AM EDT [facility] OPIATE SCREEN,URINE Negative Negative [facility]/30 11:[facility] PH[facility], URINE Negative Negative 01/30/2025 11:46 AM [facility] Comment: These are unconfirmed results and should not be used for legal purposes. Drug Cut-Off Concentration: AMPH 1000 ng/mL VENKATA 200 ng/mL BREANNA 200 ng/mL COCM 300 ng/mL OP 300 ng/mL PCP 25 ng/mL Other 01/30/2025 11:1 3 AM EDT 01/30/2025 11:18 AM EDT Narrative [facility] - 01/30/2025 11:46 AM EDT Comment s/s of acute impairment Dank Lala MD LAB BLOOD ORDERABLES Final Res ult Performing Organization Address City/State/[facility] Co de Phone Number [facility] [address] [place] [address], [facility] [address] [place] [address] * Urinalysis, manual only (01/30/2025 11:13 AM EDT) COLOR,URINE Light-Yellow Yellow 01/30/2025 11:23 AM [facility] APPEARANCE,UR INE Clear Clear 01/30/2025 11:23 AM [facility] SPECIFICY GRAVITY,URINE 1.014 1.001 - 1.030 01/30/2025 11:23 AM [facility] PH,URINE 7.0 5.0 - 9.0 01/30/2025 11:23 AM EDT [facility] LEUKOCYTE ESTERASE,URIN E Negative Negative 01/30/2025 11:23 AM EDT [facility] NITRITE,URINE Negative Negative 01/30/2025 11:23 AM EDT [facility] PROTEIN,URINE Negative Negative 01/30/2025 11:23 AM EDT [facility] GLUCOSE,URINE (UA) Normal Normal 01/30/2025 11:23 AM EDT [facility] KETONES,URINE Negative Negative 01/30/2025 11:23 AM EDT [facility] UROBILINOGEN, URINE Normal Normal 01/30/2025 11:23 AM EDT [facility] BILIRUBIN,URI NE Negative Negative 01/30/2025 11:23 AM EDT [facility] OCCULT BLOOD,URINE Negative Negative 01/30/2025 11:23 AM EDT [facility] Other 01/30/2025 11:1 3 AM EDT 01/30/2025 11:18 AM EDT Narrative [facility] - 01/30/2025 11:23 AM EDT Comment c/o urinary symptoms or increased blood pressure Name Collection Type:: Voided us Dank Lala MD LAB URINE ORDERABLES Final Res ult Performing Organization Address [facility]/State/[facility] Co de Phone Number [facility] [address] [place] [phone], [facility] [address] [place] [phone] * OB ANATOMY (01/27/2025 12:56 PM EDT) Anatomical Region Laterality Modality Other 01/27/2025 12:5 6 PM EDT Narrative 01/27/2025 12:58 [place] [address] Ultrasound Report Signed Patient: DAWN CUELLAR MR#: [id number] : 2000 Acct:[id number] Age/Sex: 24 / F ADM Date: 01/27/25 Loc: US Attending Dr: Rona Orr D.O. Ordering Physician: Rona Orr D.O. Date of Service: 01/27/25 Procedure(s): US OB anatomy Accession Number(s): [id number] cc: Rona Orr D.O.; Geena ARAYA [address] [address] Patient Name: DAWN CUELLAR MRN: [id number] date: 2000 Sex: F Assigned Patient Location: US Current Patient Location: US Accession/Order Number: [id number] Exam Date: 01/27/2025 12:50 Report Date: 01/27/2025 12:56 At the request of: RONA ORR DO Procedure: US OB cervical length CLINICAL DATA: Anatomy survey ULTRASOUND OB ANATOMY COMPARISON: None There is a single live intrauterine gestation in transverse presentation, head to the maternal left. The placenta is anterior and unremarkable in appearance and position. The amniotic fluid volume is subjectively normal. There is cardiac and somatic activity with heart rate of 152 bpm. The neural axis and all 4 extremities were surveyed by the can marker and no abnormalities were identified. The facial features, four-chamber heart, right and left outflow tracts, diaphragm, stomach, bladder, kidneys and three-vessel cord with insertion are visualized. The following measurements were obtained: Biparietal diameter 5.2 cm 21 weeks 6 days 63% Head circumference 18.7 cm 21 weeks 0 days 22% Abdominal circumference 15.9 cm 21 weeks 0 days 31% Femur length 3.4 cm 20 weeks 6 days 20% The composite ultrasound age based these measurements is 21 weeks 1 day +/- 1 week 3 days. This correlates with dates based on last menstrual period. US/US OB anatomy IMPRESSION: SINGLE LIVE INTRAUTERINE GESTATION WITH ULTRASOUND AGE OF 21 WEEKS 1 DAY. UNREMARKABLE ANATOMY SURVEY. ULTRASOUND OB CERVICAL LENGTH COMPARISON: None The cervix was evaluated with a transvaginal probe. The can marker noted contractions during evaluation. There is no evidence of previa. The cervix is closed and measures approximately 3.7 cm in length. IMPRESSION: CLOSED CERVIX, WITHOUT ABNORMALITY. Impression dictated by: Catherine Cortes M.D. 01/27/2025 12:56 PM Dictation Location: [place] [address] Electronically authenticated by: [id number] Y Date: 01/27/2025 12:56 Dictated By: Catherine Cortes M.D. Signed By: 01/27/25 1258 DD/ 1256 TD/TT: Veneer Clipper: Procedure Note Radiology, Radiologist, - 01/27/2025 [place] [address] Ultrasound Report Signed Patient: DAWN CUELLAR TMR#: [id number] : 2000Acct:[id number] Age/Sex: 24 / FADM Date: 01/27/25 Loc: US Attending Dr: Rona Orr D.O. Ordering Physician: Rona Orr D.O. Date of Service: 01/27/25 Procedure(s): US OB anatomy Accession Number(s): [id number] cc: Rona Orr D.O.; Geena ARAYA [address] [place] [id number] Patient Name: DAWN CUELLAR MRN: [id number] date: 2000 Sex: F Assigned Patient Location: US Current Patient Location: US Accession/Order Number: [id number] Exam Date: 01/27/2025 12:50 Report Date: 01/27/2025 12:56 At the request of: RONA ORR DO Procedure: US OB cervical length CLINICAL DATA: Anatomy survey ULTRASOUND OB ANATOMY COMPARISON: None There is a single live intrauterine gestation in transverse presentation,head to the maternal left. The placenta is anterior and unremarkable inappearance and position. The amniotic fluid volume is subjectively normal. There is cardiac and somatic activity with heart rate of 152 bpm. The neural axis and all 4 extremities were surveyed by the can marker and no abnormalities were identified. The facial features, four-chamberheart, right and left outflow tracts, diaphragm, stomach, bladder, kidneys and three-vessel cord with insertion are visualized. The following measurements were obtained: Biparietal diameter 5.2 cm 21 weeks 6 days 63% Head circumference 18.7 cm 21 weeks 0 days 22% Abdominal circumference 15.9 cm 21 weeks 0 days 31% Femur length 3.4 cm 20 weeks 6 days20% The composite ultrasound age based these measurements is 21 weeks 1 day+/- 1 week 3 days. This correlates with dates based on last menstrual period. US/US OB anatomy IMPRESSION: SINGLE LIVE INTRAUTERINE GESTATION WITH ULTRASOUND AGE OF 21 WEEKS 1 DAY. UNREMARKABLE ANATOMY SURVEY. ULTRASOUND OB CERVICAL LENGTH COMPARISON: None The cervix was evaluated with a transvaginal probe. The can marker noted contractions during evaluation. There is no evidence of previa. Thecervix is closed and measures approximately 3.7 cm in length. IMPRESSION: CLOSED CERVIX, WITHOUT ABNORMALITY. Impression dictated by: Catherine Cortes M.D. 01/27/2025 12:56 PM Dictation Location: [place] [address] Electronically authenticated by: [id number] Y Date: 2:56 Dictated By: Catherine Cortes M.D. Signed By:01/27/25 1258 DD/ 1256 TD/TT: Veneer Clipper: Generic External Data Provider [facility] Final Result * (ABNORMAL) RECURRENT VAGINITIS (HTRX) (01/25/2025 11:14 AM EDT) ATOPOBIUM VAGINAE 29.079(A) 19.961 - 24.689 ppm 01/26/2025 6:24 AM EDT [facility] ATOPOBIUM VAGINAE Detected(A) 19.961 - 24.689 ppm 01/26/2025 6:24 AM EDT [facility] BVAB 2,3 (BACTERIAL VAGINOSIS ASSOCIATED BACTERIA 2, 3); MOBILUNCUS SPP 0.000 19.961 - 24.689 ppm 01/26/2025 6:25 AM EDT [facility] BVAB 2,3 (BACTERIAL VAGINOSIS ASSOCIATED BACTERIA 2, 3); MOBILUNCUS SPP Not Detected 19.961 - 24.689 ppm 01/26/2025 6:25 AM EDT [facility] MARILYNN ALBICANS, PARAPSILOSIS, TROPICALIS 0.000 19.961 - 30.770 ppm 01/26/2025 6:25 AM EDT [facility] MARILYNN ALBICANS, PARAPSILOSIS, TROPICALIS Not Detected 19.961 - 30.770 ppm 01/26/2025 6:25 AM EDT [facility] MARILYNN GLABRATA 0.000 23.000 - 32.138 ppm 01/26/2025 6:24 AM EDT [facility] MARILYNN GLABRATA Not Detected 23.000 - 32.138 ppm 01/26/2025 6:24 AM EDT [facility] MARILYNN KRUSEI 0.000 23.000 - 32.271 ppm 01/26/2025 6:24 AM EDT [facility] MARILYNN KRUSEI Not Detected 23.000 - 32.271 ppm 01/26/2025 6:24 AM EDT [facility] CHLAMYDIA TRACHOMATIS 0.000 23.000 - 31.467 ppm 01/26/2025 6:25 AM EDT [facility] CHLAMYDIA TRACHOMATIS Not Detected 23.000 - 31.467 ppm 01/26/2025 6:25 AM EDT [facility] GARDNERELLA VAGINALIS 32.623(A) 19.961 - 24.689 ppm 01/26/2025 6:24 AM EDT [facility] GARDNERELLA VAGINALIS Detected(A) 19.961 - 24.689 ppm 01/26/2025 6:24 AM EDT [facility] MEGASPHAERA (TYPES 1, 2) 0.000 19.961 - 24.689 ppm 01/26/2025 6:25 AM EDT [facility] MEGASPHAERA (TYPES 1, 2) Not Detected 19.961 - 24.689 ppm 01/26/2025 6:25 AM EDT [facility] NEISSERIA GONORRHOEAE 0.000 23.000 - 32.117 ppm 01/26/2025 6:25 AM EDT [facility] NEISSERIA GONORRHOEAE Not Detected 23.000 - 32.117 ppm 01/26/2025 6:25 AM EDT [facility] TRICHOMONAS VAGINALIS 0.000 23.000 - 32.119 ppm 01/26/2025 6:24 AM EDT [facility] TRICHOMONAS VAGINALIS Not Detected 23.000 - 32.119 ppm 01/26/2025 6:24 AM EDT [facility] MYCOPLASMA GENITALIUM 0.000 19.961 - 24.689 ppm 01/26/2025 6:25 AM EDT [facility] MYCOPLASMA GENITALIUM Not Detected 19.961 - 24.689 ppm 01/26/2025 6:25 AM EDT [facility] ERMB C; MEFA 26.396(A) 23.000 - 27.611 ppm 01/26/2025 6:25 AM EDT [facility] ERMMark C; MEFA Detected(A) 23.000 - 27.611 ppm 01/26/2025 6:25 AM EDT [facility] Tissue 01/25/2025 11:1 4 AM EDT 01/26/2025 2:01 AM EDT us Cynthia Troy INFORMATION OPERATOR LAB BLOOD ORDERABLES Final Re sult [facility] [address] [place] [address] * IGP,APTIMA HPV,AGE GDLN (01/25/2025 10:16 AM EDT) AGE GDLN ACOG TESTING Note . [facility] Comment: TESTS RESULT FLAG UNITS REF RANGE LAB Clinician Provided Cytology Information Source.............Endocervix No. of containers..01 ThinPrep Vial Age Algo ACOG Nisha... 21-29 FLAG LEGEND: L-Low Normal,H-High Normal,LL-Alert Low,HH-Alert High <-Panic Low,>-Panic High,A-Abnormal,AA-Critical Abnormal Performed at: 01 =G [facility] [place] [address] Brianna Jung MD, IGP, RFX APTIMA HPV ASCU Note . [facility] Comment: TESTS RESULT FLAG UNITS REF RANGE LAB DIAGNOSIS: 02 NEGATIVE FOR INTRAEPITHELIAL LESION OR MALIGNANCY. Specimen adequacy: 02 Satisfactory for evaluation. Endocervical and/or squamous metaplastic cells (endocervical component) are present. Performed by: Lee Ardon, Gift Consultant ([facility]) . 02 Note: Note 02 The Pap smear is a screening test designed to aid in the detection of premalignant and malignant conditions of the uterine cervix. It is not a diagnostic procedure and should not be used as the sole means of detecting cervical cancer. Both false-positive and false-negative reports do occur. Test Methodology: Note 02 This liquid based ThinPrep(R) pap test was screened with the use of an image guided system. . 02 The HPV DNA reflex criteria were not met with this specimen result therefore, no HPV testing was performed. FLAG LEGEND: L-Low Normal,H-High Normal,LL-Alert Low,HH-Alert High <-Panic Low,>-Panic High,A-Abnormal,AA-Critical Abnormal Performed at: [address] [address] Brianna Jung MD, Performed at: = - [facility] [address] [id number] [employer]: Brianna Jung MD, Phone: [phone] Performed at: - [facility] [id number] [employer]: Brianna Jung MD, Phone: [phone] 01/25/2025 10:1 6 AM EDT 01/25/2025 9:30 PM EDT Narrative [facility] - 01/28/2025 12:08 PM EDT SPATULA-ALONE ENDOCERVIX Cynthia Troy INFORMATION OPERATOR LAB BLOOD ORDERABLES Final Re sult Performing Organization Address [facility] Co de Phone Number [facility] * Pap Smear (01/25/2025 12:00 AM EDT) Swab Cervical swab / Unknown Kirby Nurse [facility] Ob LAB CYTOLOGY ORDERABLES Final Result Performing Organization Address [facility]/ZIP Co de Phone Number EXTERNAL LAB from Last 3 Months Insurance [employer] Care Teams Crown Ironer Operator Relationship Specialty Start Date End Date Diego Araya DO [address] [place] [address] PCP - General Family Medicine 04/09/23 Diego Araya DO [address] [place] [address] PCP - [facility] 06/09/24
--- OUTSIDE RECORDS SUMMARY | 2025-03-29 16:21 | XMS_ITS | Encounter Summary ---
Author Organization [facility] Address [address] [place] [address] Care Team Providers Care Box Toe Buffer Name Role Phone Quiana Diego Artis DO Primary Care Provider [phone] DerianDiego tabares DO Unavailable Encounter Details Date Type Department Care Team (Late Contact Info) Description 12/10/2024 Abstract [facility] OB [address] [place] [address] Demarco Orr [facility] [address] [place], [place] [address] Social History Tobacco Use Types Packs/Day Years [...] Procedure [facility] OB [address] [place] [address] 04/13/2025 10:30 AM EDT Routine [facility] OB [address] [facility] [place] [address] Demarco Orr DO [address] [facility] [place] [address] documented as of this encounter Visit Diagnoses Not on filedocumented in this encounter Care Teams Box Toe Buffer Relationship Specialty Start Date End Date iDego Araya DO [address] [facility] [address] [place] [address] PCP - General Family Medicine 04/09/23 Diego Araya DO [address] [facility] [address] [place] [address] PCP - [facility] 06/09/24 documented as of this encounter
--- OUTSIDE RECORDS SUMMARY | 2025-03-29 16:21 | XMS_ITS | Encounter Summary ---
Author Organization [facility] Address [address] [facility] [place] [address] Care Team Providers Care Line Fisher Name Role Phone Sherice Camarillo NP Unavailable [phone] Diego Araya DO Primary Care Provider Diego Araya DO Unavailable Martin Phipps Unavailable Diego Araya DO Unavailable [phone] Vicky Robles LPN Unavailable Unavailable Encounter Details Date Type Department Care Team (Late st Contact Info) Description 09/10/2023 Orders Only [facility] FM [address] [facility] [address] [place] [phone] A, Unknown Practice [address] [place], [place] [phone] Social History Tobacco Use Types Packs/Day Years [...] AM EDT Ancillary Procedure [facility] BCP OB [address] [place] [address] [place] [phone] 04/13/2025 10:30 AM EDT Routine [facility] B[facility] OB [address] [facility] [phone] Demarco Orr DO [address] [facility] [place] [address] documented as of this encounter Procedures Procedure Name Priority Date/Time Associated Diagnosis Comments ESOPHAGOSCOPY Routine 09/10/2023 12:55 PM EST documented in this encounter Results * Esophagoscopy (09/10/2023 12:55 PM EST) Anatomical Region Laterality Modality Endoscopy us Unknown Practice A ENDOSCOPY PROCEDURE ORDERABLE S Final Result documented in this encounter Visit Diagnoses Not on filedocumented in this encounter Care Teams Line Fisher Relationship Specialty Start Date End Date Sherice Camarillo, MACHINE FITTER [address] [place] [address] PCP - [facility] 03/09/23 Diego Araya DO [address] [place] [address] PCP - General Family Medicine 04/09/23 Diego Araya DO [address] [place] [address] PCP - [facility] 12/09/23 Martin Phipps PA [address] [place] [address] PCP - [facility] 03/09/24 Diego Araya DO [address] [place] [address] PCP - [facility] 06/09/24 Vicky Robles LPN Licensed Practical Nurse Family Medicine 10/01/2410/08 documented as of this encounter
--- OUTSIDE RECORDS SUMMARY | 2025-03-29 16:21 | XMS_ITS | Encounter Summary ---
Author Organization [facility] Address [address] [place] [address] Care Team Providers Care Driller Portable Name Role Phone Sherice Camarillo ALLERGIST/IMMUNOLOGIST Unavailable [phone] Diego Araya DO Primary Care Provider Diego Araya DO Unavailable Martin Phipps Unavailable Diego Araya DO Unavailable [phone] Vicky Robles LPN Unavailable Unavailable Encounter Details Date Type Department Care Team (Late st Contact Info) Description 03/06/2023 Abstract [facility] [address] [place] [id number] Demarco Orr DO [facility] [place] [address] Social History Tobacco Use Types Packs/Day Years [...] 04/13/2025 10:00 AM EDT Ancillary Procedure [facility] [address] [place] [id number] 04/13/2025 10:30 AM EDT Routine [facility] [address] [place] [address] Demarco Orr DO [address] [place] [address] [place] [address] documented as of this encounter Visit Diagnoses Not on filedocumented in this encounter Care Teams Driller Portable Relationship Specialty Start Date End Date Sherice Camarillo, ALLERGIST/IMMUNOLOGIST [address] [place] [address] PCP - [facility] 03/09/23 Diego Araya DO [address] [place] [address] PCP - General Family Medicine 04/09/23 Diego Araya DO [address] [place] [address] PCP - [facility] 12/09/23 Martin Phipps PA [address] [place] [address] PCP - [facility] 03/09/24 Diego Araya DO [address] [place] [address] PCP - [facility] 06/09/24 Vicky Robles LPN Licensed Practical Nurse Family Medicine 10/01/2410/08 documented as of this encounter
--- OUTSIDE RECORDS SUMMARY | 2025-03-29 16:21 | XMS_ITS | Encounter Summary ---
Author Organization [facility] Address [address] [place] [address] Care Team Providers Care Family Program Specialist Name Role Phone Quiana Diego Artis DO Primary Care Provider [phone] DerianDiego tabares DO Unavailable [phone] Encounter Details Date Type Department Care Team (Late Contact Info) Description 01/27/2025 Abstract [facility] [address] [place] [address] Demarco Orr [facility] [place], [place] [address] Social History Tobacco Use Types Packs/Day Years [...] Procedure [facility] [address] [place] [address] 04/13/2025 10:30 AM EDT Routine [facility] [address] [place] [address] Demarco Orr DO [address] [facility] [place] [address] documented as of this encounter Visit Diagnoses Not on filedocumented in this encounter Care Teams Family Program Specialist Relationship Specialty Start Date End Date Diego Araya DO [address] [facility] [address] [place] [address] PCP - General Family Medicine 04/09/23 Diego Araya DO [address] [facility] [address] [place] [address] PCP - [facility] 06/09/24 documented as of this encounter
--- OUTSIDE RECORDS SUMMARY | 2025-03-29 16:21 | XMS_ITS | Encounter Summary ---
Author Organization [facility] Address [address] [place] [address] Care Team Providers Care Salesperson Yard Goods Name Role Phone Quiana Diego Artis DO Primary Care Provider [phone] DerianDiego tabares DO Unavailable [phone] Encounter Details Date Type Department Care Team (Late Contact Info) Description 12/04/2024 Abstract [facility] [address] [place] [address] eDmarco Orr DO [facility] [place], [place] [address] Social History Tobacco Use Types Packs/Day Years [...] Procedure [facility] [address] [place] [address] 04/13/2025 10:30 AM EDT Routine [facility] [address] [facility] [place] [address] Demarco Orr DO [address] [facility] [place] [address] documented as of this encounter Visit Diagnoses Not on filedocumented in this encounter Care Teams Salesperson Yard Goods Relationship Specialty Start Date End Date Diego Araya DO [address] [facility] [address] [place] [address] PCP - General Family Medicine 04/09/23 Diego Araya DO [address] [facility] [address] [place] [address] PCP - [facility] 06/09/24 documented as of this encounter
--- OUTSIDE RECORDS SUMMARY | 2025-03-29 16:21 | XMS_ITS | Encounter Summary ---
Author Organization [facility] Address [address] [facility] [place] [address] Care Team Providers Care Cloth Hauler Name Role Phone Sherice Camarillo NP Unavailable [phone] Diego Araya DO Primary Care Provider [phone] Diego Araya DO Unavailable [phone] Martin Phipps Unavailable Diego Araya DO Unavailable [phone] Vicky Robles LPN Unavailable Unavailable Encounter Details Date Type Department Care Team (Late st Contact Info) Description 06/03/2023 Orders Only [facility] [address] [facility] [address] [address] [place] [phone] A, Unknown Practice [address] [place], [place] [id number] Social History Tobacco Use Types Packs/Day Years [...] EDT Ancillary Procedure [facility] [address] [facility] [place] [address] 04/13/2025 10:30 AM EDT Routine [facility] [address] [facility] [place] [phone] Demarco Orr, DO [address] [facility] [place] [address] documented as of this encounter Procedures Procedure Name Priority Date/Time Associated Diagnosis Comments COLONOSCOPY DIAGNOSTIC Routine 06/03/2023 10:43 AM EDT documented in this encounter Results * COLONOSCOPY DIAGNOSTIC (06/03/2023 10:43 AM EDT) Anatomical Region Laterality Modality Radiographic Erica ging us Unknown Practice A IMG XR PROCEDURES Final Resul t documented in this encounter Visit Diagnoses Not on filedocumented in this encounter Care Teams Cloth Hauler Relationship Specialty Start Date End Date Sherice Camarillo, INTERIOR SURFACE INSULATION WORKER [address] [place] [address] PCP - [facility] 03/09/23 Diego Araya DO [address] [place] [address] PCP - General Family Medicine 04/09/23 Diego Araya DO [address] [place] [address] PCP - [facility] 12/09/23 Martin Phipps PA [address] [place] [address] PCP - [facility] 03/09/24 Diego Araya DO [address] [place] [address] PCP - [facility] 06/09/24 Vicky Robles LPN Licensed Practical Nurse Family Medicine 10/01/2410/08 documented as of this encounter
--- OUTSIDE RECORDS SUMMARY | 2025-03-29 16:21 | XMS_ITS | Encounter Summary ---
Author Organization [facility] Address [address] [place] [address] Care Team Providers Care Materials Management Supervisor Name Role Phone Quiana Diego Artis DO Primary Care Provider Diego Araya DO Unavailable [phone] Encounter Details Date Type Department Care Team (Late Contact Info) Description 02/09/2025 Orders Only [facility] OB [address] [place] [address] Cee Everett LPN [address] [facility] [place] [address] Social History Tobacco Use Types Packs/Day Years [...] EDT Ancillary Procedure [facility] OB [address] [place] [address] 04/13/2025 10:30 AM EDT Routine [facility] OB [address] [facility] [place] [address] Demarco Orr DO [address] [facility] [place] [address] documented as of this encounter Procedures Procedure Name Priority Date/Time Associated Diagnosis Comments PAP SMEAR Routine 01/25/2025 12:00 AM EDT documented in this encounter Results * Pap Smear (01/25/2025 12:00 AM EDT) Swab Cervical swab / Unknown Kirby Nurse [facility] Ob LAB CYTOLOGY ORDERABLES Final Result EXTERNAL LAB documented in this encounter Visit Diagnoses Not on filedocumented in this encounter Care Teams Materials Management Supervisor Relationship Specialty Start Date End Date Diego Araya DO [address] [facility] [address] [place] [address] PCP - General Family Medicine 04/09/23 Diego Araya DO [address] [facility] [address] [place] [address] PCP - [facility] 06/09/24 documented as of this encounter
--- OUTSIDE RECORDS SUMMARY | 2025-03-29 16:21 | XMS_ITS | Encounter Summary ---
Author Organization [facility] Address [address] [place] [address] Care Team Providers Care Storage Battery Tester Name Role Phone Sherice Camarillo SENIOR FUND ACCOUNTANT Unavailable [phone] Diego Araya DO Primary Care Provider [phone] Diego Araya DO Unavailable Martin Phipps Unavailable Diego Araya DO Unavailable [phone] Vicky Robles LPN Unavailable Unavailable Encounter Details Date Type Department Care Team (Late st Contact Info) Description 03/14/2023 Abstract [facility] [address] [place] [address] Demarco Orr DO [facility] [place] [address] Social History Tobacco Use Types Packs/Day Years [...] 04/13/2025 10:00 AM EDT Ancillary Procedure [facility] [address] [place] [phone] 04/13/2025 10:30 AM EDT Routine [facility] [address] [place] [address] Demarco Orr DO [address] [place] [address] [place] [address] documented as of this encounter Visit Diagnoses Not on filedocumented in this encounter Care Teams Storage Battery Tester Relationship Specialty Start Date End Date Sherice Camarillo, SENIOR FUND ACCOUNTANT [address] [place] [address] PCP - [facility] 03/09/23 Diego Araya DO [address] [place] [address] PCP - General Family Medicine 04/09/23 Diego Araya DO [address] [place] [address] PCP - [facility] 12/09/23 Martin Phipps PA [address] [place] [address] PCP - [facility] 03/09/24 Diego Araya DO [address] [place] [address] PCP - [facility] 06/09/24 Vicky Robles LPN Licensed Practical Nurse Family Medicine 10/01/2410/08 documented as of this encounter
--- OUTSIDE RECORDS SUMMARY | 2025-03-29 16:21 | XMS_ITS | Encounter Summary ---
Author Organization [facility] Address [address] [place] [address] Care Team Providers Care Coldfusion Name Role Phone Diego Araya DO Primary Care Provider [phone] Diego Araya DO Unavailable [phone] Encounter Details Date Type Department Care Team (Late Contact Info) Description 02/24/2025 Abstract [facility] FM [address] [place] [address] Diego Araya DO [address] [place] [address] Social History Tobacco Use Types Packs/Day Years [...] EDT Ancillary Procedure [facility] [address] [facility] [place] [phone] 04/13/2025 10:30 AM EDT Routine [facility] OB [address] [facility] [place] [address] Demarco Orr, DO [address] [facility] [place] [address] documented as of this encounter Visit Diagnoses Not on filedocumented in this encounter Care Teams Coldfusion Relationship Specialty Start Date End Date Diego Araya DO [address] [facility] [address] [place] [address] PCP - General Family Medicine 04/09/23 Diego Araya DO [address] [facility] [address] [place] [address] PCP - [facility] 06/09/24 documented as of this encounter
--- OUTSIDE RECORDS SUMMARY | 2025-03-29 16:21 | XMS_ITS | Encounter Summary ---
Author Organization [facility] Address [address] [facility] [place] [address] Care Team Providers Care Manager Furniture Name Role Phone Sherice Camarillo COMMUNITY REPRESENTATIVE Unavailable [phone] Diego Araya DO Primary Care Provider Diego Araya DO Unavailable Martin Phipps Unavailable Diego Araya DO Unavailable [phone] Vicky Robles LPN Unavailable Unavailable Encounter Details Date Type Department Care Team (Late st Contact Info) Description 08/21/2023 Abstract [facility] [address] [facility] NANCY [facility] [address] [place] [address] Diego Araya DO [address] [facility] [address] [place] [address] Social History Tobacco Use Types Packs/Day [...] Procedure [facility] B[facility] OB [address] [place] [address] 04/13/2025 10:30 AM EDT Routine [facility] OB [address] [facility] [place] [address] Demarco Orr DO [address] [facility] [place] [address] documented as of this encounter Visit Diagnoses Not on filedocumented in this encounter Care Teams Manager Furniture Relationship Specialty Start Date End Date Sherice Camarillo, COMMUNITY REPRESENTATIVE [address] [place] [address] PCP - [facility] 03/09/23 Diego Araya DO [address] [place] [address] PCP - General Family Medicine 04/09/23 Diego Araya DO [address] [place] [address] PCP - [facility] 12/09/23 Martin Phipps PA [address] [place] [address] PCP - [facility] 03/09/24 Diego Araya DO [address] [place] [address] PCP - [facility] 06/09/24 Vicky Robles LPN Licensed Practical Nurse Family Medicine 10/01/2410/08 documented as of this encounter
[2025-03-29 16:44] LABS: Hematocrit 33.8 % (36.0-48.0); Hemoglobin 11.1 g/dL (12.0-16.0); Immature Granulocytes Abs Auto 0.10 10^3/uL (0.00-0.03); Immature Granulocytes Pct Auto 0.9 % (0.0-0.5); Lymphocytes Absolute Auto 1.7 10^3/uL (1.2-3.8); Mean Corpuscular HGB Conc 32.8 g/dL (29.9-35.2); Mean Corpuscular Hemoglobin 29.3 pg (26.7-34.0); Mean Corpuscular Volume 89.2 fL (81.0-99.0); Platelet Count 256 10^3/uL (150-450); Red Blood Count 3.79 10^6/uL (4.20-5.40); White Blood Count 11.7 10^3/uL (4.0-11.0)
== END 2025-03-29 16:17 | disposition home or self-care (01) ==
LOC: LAB 16:18
PROVIDERS: PCP Family Medicine; Visit Provider Physician Assistant
DX: Z34.93 Encounter for supervision of normal pregnancy, unspecified, third trimester (principal)
CPT/HCPCS: 36415; 83036; 85025

== ENCOUNTER 2025-04-24 22:24 | Observation (INO) | payer OTHER, SELFPAY ==
--- OUTSIDE RECORDS SUMMARY | 2025-04-24 22:29 | XMS_ITS | CCD ---
Author Organization [facility] Care Team Providers Care Direct Marketing Representative Name Role Phone KIRBY, DR REA Consulting Unavailable KALOTTIE, DR Geena FIELDS Primary Care Unavailable KIRBY, DR REA Attending Unavailable KIRBY, DR RAE Admitting Unavailable KIRBY, DR REA Consulting Unavailable [...] LISTED Primary Care Unavaila ble KIRBY, DR ERA Attending Unavailable KIRBY, DR REA Admitting Unavailable [...] Unavailable Felisha Fontanaeti Attending Unavailable DO Divina Aarya Primary [facility] Provider [facility] Vivian Ayala Emergency Provider Bozean Imad Unavailable DO Divina Araya Primary Care Provider MD Jordi Seals Attending Provider DO Divina Araya Primary Care Provider MD Jordi Seals Attending Provider DO Divina Araya Primary Care Provider MD Jordi Seals Attending Provider VANESSA Roberson Emergency Provider DO Sedrick Welsl Emergency Provider DO Divina Araya Primary Care Provider MIGUEL Phipps Emergency Provider [phone] DO Paramjit Yanes Emergency Provider Zachary Araya DO Primary Care Provider Zachary Araya DO Unavailable Martin Paige Unavailable Paramjit Yanes DO Emergency Provider Divina Araya DO Primary Care Provider Frank Castillo MD Attending Provider [phone] Derek Phipps PA-C Emergency Provider Divina Araya DO Primary Care Provider Vipin Stroud DO Emergency Provider Ivana Vallejo MD, Jerel Bazzi Attending Provider Divina Araya Primary Care Unavailable Zana Meyers Admitting Unavailable Zana Meyers Attending Unavailable Vipin Stroud Admitting Unavailable Vipin Stroud Attending Unavailable Divina Araya Primary Care Unavailable Frank Castillo Admitting Unavailab Frank Duran Attending Unavailab Divina Vasquez Primary Care Unavailable Paramjit Yanes Attending Unavailable Divina Araya Primary Care Unavailable Paramjit Yanes Admitting Unavailable Derek Phipps Admitting Unavailable Derek Phipps Attending Unavailable Divina Araya Primary Care Unavailable Jerel Vallejo Admitting Unavailable Jerel Vallejo Attending Unavailable Divina Araya Primary Care Unavailable Paramjit Yanes Admitting Unavailable Paramjit Yanes Attending Unavailable Divina Araya Primary Care Unavailable Divina Araya Primary Care Unavailable Derek Phipps Admitting Unavailable Derek Phipps Attending Unavailable DEMARCO ORR Attending Unavailable SUSAN TROY Attending Unavailable DEMARCO ORR Attending Unavailable CIRA CHAIREZ Attending Unavailable DEMARCO ORR Attending Unavailable ZACHARY ARAYA Attending Unavailable CARLOS ZARAGOZA Attending Unavailable ANUM CODY Attending Unavailable Allergies Allergy Classification Reported Allergen(s) Allergy Type Date of Onset Reaction(s) Facility (6 sources) Amoxicillin Drug Allergy 4 Unknown Reaction [facility] (8 sources) Milk Drug allergy (disorder) 4 Unknown, Unknown Reaction [facility] (20 sources) Amoxicillin; Translations: [amoxicillin] Drug Allergy 3 Weal (disorder), Unknown [facility] (19 sources) Cow milk Allergy to substance 4 Unknown [facility] (20 sources) Lactase Drug Allergy 0 Diarrhea [facility] (1 source) Amoxicillin Drug Allergy 5 [facility] (1 source) Milk Drug allergy (disorder) 5 [facility] Medications Current Medications Medication Drug Class(es) Dates Sig (Normalized) Sig (Original) [id number] 200 actuat albuterol 0.09 mg/actuat metered dose inhaler (20 sources) beta2-Adrenergic Agonist Start: 12-20-2023 take 2 puff(s) by inhalation every four hours for wheezing albuterol HFA 90 mcg/act inhaler Indications: Mild intermittent asthma, unspecified whether complicated ([facility]) Inhale 2 puffs every 4 (four) hours if needed for wheezing or shortness of breath 18 g 3 12/20/2023 Active Start: 10-13-2023 End: 04-17-2024 Albuterol Sulfate 2.5 mg /3 mL (0.083 %) solution for nebulization Discontinued MG October 13, 2023 1:00am April 17, 2024 9:55am citalopram 10 mg oral tablet (20 sources) Serotonin Reuptake Inhibitor Start: 04-29-2024 End: 11-05-2024 take 1 tablet by mouth once daily citalopram (CeleXA) 10 MG tablet Indications: PTSD (post-traumatic stress disorder) ([facility]) Take 1 tablet (10 mg) by mouth Daily 30 tablet 04/30/2024 11/05/2024 Discontinued Start: 12-29-2022 End: 01-18-2023 take 1 tablet by mouth once daily Citalopram 10 mg tablet Discontinued 10 MG PO Daily December 29, 2022 12:00am January 18, 2023 9:58am fluticasone propionate 0.05 mg/actuat metered dose nasal spray (14 sources) Corticosteroid Start: 04-29-2024 End: 04-30-2025 take 2 spray(s) nasal route once daily fluticasone (Flonase) 50 MCG/ACT nasal spray Administer 2 sprays into each nostril Daily 02/24/2025 Active hydrOXYzine hydrochloride 25 mg oral tablet (9 sources) Antihistamine Start: 04-07-2024 End: 11-05-2024 take 1 tablet by mouth three times daily as needed hydrOXYzine HCl (Atarax) 25 MG tablet Indications: Nausea , Anxiety Take 1 tablet (25 mg) by mouth 3 (three) times a day as needed for itching 30 tablet 04/07/2024 11/05/2024 Discontinued ibuprofen 600 mg oral tablet (20 sources) Nonsteroidal Anti-inflammatory Drug Start: 04-07-2024 End: [...] times daily as needed for pain February 09, 2018 12:00am October 12, 2020 6:28pm [place] (No Known Home Meds) (5 sources) Start: 06-29-2024 [place] (No Kn own Home Meds) Active June 29, 2024 12:00am Start: 01-18-2023 [place] (No Kn own Home Meds) Active January 17, 2023 11:00pm Start: 01-18-2023 [place] (No Kn own Home Meds) Active January 18, 2023 12:00am omeprazole 20 mg delayed release oral capsule (15 sources) Proton Pump Inhibitor Start: 02-22-2025 End: 04-28-2025 take 1 capsule by mouth before mealtime omeprazole (PriLOSEC) [address] capsule Indications: Gastroesophageal Reflux Disease , Heartburn Take 1 capsule (20 mg) by mouth in the morning. Take before meals. Do not crush or chew. 30 capsule 3 03/29/2025 04/28/2025 Active Start: 04-17-2024 End: 06-29-2024 take 1 capsule by mouth once daily Omeprazole 20 mg capsule,delayed release(DR/EC) Discontinued 20 MG PO Daily April 17, 2024 12:00am June 29, 2024 10:59am Pnv Cmb#95-Ferrous Fumarate-Fa () 28 mg iron- 800 mcg tablet (1 source) Start: 01-30-2025 take 1 tablet by mouth once daily Pnv Cmb#95-Ferrous Fumarate-Fa () 28 mg iron- 800 mcg tablet Active 1 TAB PO Daily January 30, 2025 12:00am polyethylene glycol 3350 [id number] mg / potassium chloride 2970 mg / sodium bicarbonate 6740 mg / sodium chloride 5860 mg / sodium sulfate 16493 mg powder for oral solution (2 sources) Osmotic Laxative Start: 04-25-2023 take 236 g by mouth once Golytely 236 GM as directed Orally once for 1 days Apr, Active Dugkqocd-Tpg-Vn-FA ( 1 + IRON PO) (14 sources) Xojukxaz-Sok-Yl-FA ( 1 + IRON PO) Take 1 tablet by mouth Daily Active Completed/Discontinued Medications Medication Drug Class(es) Dates Sig (Normalized) Sig (Original) ARIPiprazole 5 mg oral tablet (12 sources) Atypical Antipsychotic Start: 06-29-2024 End: 06-29-2024 Aripiprazole Discontinued MG TABLET June 29, 2024 12:00am June 29, 2024 11:00am Start: 04-29-2024 End: 11-05-2024 Aripiprazole 5 mg tablet Dis continued MG TABLET June 29, 2024 12:00am June 29, 2024 11:00am cyclobenzaprine hydrochloride 10 mg oral tablet (6 sources) Muscle Relaxant Start: 10-13-2023 End: 04-17-2024 take 1 tablet by mouth three times daily as needed for muscle spasms Cyclobenzaprine 10 mg tablet Discontinued 10 MG PO Three times daily as needed for muscle spasm October 13, 2023 1:00am April 17, 2024 9:55am diclofenac sodium 0.01 mg/mg topical gel (6 sources) Nonsteroidal Anti-inflammatory Drug Start: 10-13-2023 End: 04-17-2024 Diclofenac Sodium (Voltaren Arthritis Pain) 1 % gel Discontinued 2 GM TOPICAL Four times daily as needed for pain October 13, 2023 1:00am April 17, 2024 9:55am apply to single elbow, wrist or hand; for hand includes palm/fingers/back of hand dicyclomine hydrochloride 20 mg oral tablet (20 sources) Anticholinergic Start: 04-17-2024 End: 11-05-2024 take 1 tablet by mouth four times daily Dicyclomine 20 mg tablet Discontinued 20 MG PO Four times daily April 17, 2024 12:00am June 29, 2024 10:59am Start: 12-29-2022 End: 01-18-2023 take 1 tablet by mouth three times daily as needed Dicyclomine 20 mg tablet Discontinued 20 MG PO Three times daily as needed for abdominal discomfort December 29, 2022 12:00am January 18, 2023 9:58am doxycycline hyclate 100 mg oral tablet (7 sources) Tetracycline-class Drug Start: 09-28-2023 End: 10-13-2023 take 1 tablet by mouth twice daily Doxycycline Hyclate 100 mg tablet Discontinued 100 MG PO Twice daily 28 06September 28, 2023 1:00am October 13, 2023 2:14pm Norethindrone-E.E stradiol-Iron (12 sources) Estrogen Start: 02-09-2018 End: 10-12-2020 Norethindrone-E.E stradiol-Iron (09/28 ()) 1 mg-20 mcg (21)/75 mg (7) tablet Discontinued 1 TAB PO Daily February 08, 2018 11:00pm October 12, 2020 5:28pm Start: 02-09-2018 End: 10-12-2020 Norethindrone-E.Estradiol-Ir on (09/28 ()) 1 mg-20 mcg (21)/75 mg (7) tablet Discontinued 1 TAB PO Daily February 09, 2018 12:00am October 12, 2020 6:28pm lidocaine 0.05 mg/mg medicated patch (3 sources) Antiarrhythmic, Amide Local Anesthetic Start: 09-21-2024 End: 01-30-2025 apply 1 dose topically every twenty-four hours Lidocaine 5 % adhesive patch,medicated Discontinued 1 PATCH TOPICAL Q24H September 21, 2024 1:00am January 30, 2025 11:20am leave on most painful area for up to 12 hrs methocarbamol 750 mg oral tablet (3 sources) Muscle Relaxant Start: 09-21-2024 End: 01-30-2025 take 1 tablet by mouth three times daily Methocarbamol 750 mg tablet Discontinued 750 MG PO Three times daily September 21, 2024 1:00am January 30, 2025 11:20am metroNIDAZOLE 500 mg oral tablet (12 sources) Nitroimidazole Antimicrobial Start: 07-29-2020 End: 10-12-2020 take 1 tablet by mouth three times daily Metronidazole 500 mg tablet Discontinued 500 MG PO Three times daily July 29, 2020 1:00am October 12, 2020 6:28pm naproxen 500 mg oral tablet (3 sources) Nonsteroidal Anti-inflammatory Drug Start: 09-21-2024 End: 01-30-2025 take 1 tablet by mouth twice daily as needed for pain Naproxen (Naprosyn) 500 mg tablet Discontinued 500 MG PO Twice daily as needed for pain September 21, 2024 1:00am January 30, 2025 11:20am norethindrone 0.35 mg oral tablet (13 sources) Start: 12-29-2022 End: 01-18-2023 take 1 tablet by mouth once daily Norethindrone (Contraceptive) (Jencycla) 0.35 mg tablet Discontinued 0.35 MG PO Daily December 29, 2022 12:00am January 18, 2023 9:58am Start: 11-06-2022 Jencycla 0.35 mg oral tablet Refills(s) 0 Start Date: 11/06/22 Status: Ordered ondansetron 4 mg disintegrating oral tablet (20 sources) Serotonin-3 Receptor Antagonist Start: 04-17-2024 End: 11-05-2024 take 1 tablet by mouth four times daily as needed for nausea and vomiting Ondansetron 4 mg tablet,disintegrating Discontinued 4 MG PO Four times daily as needed for nausea and vomiting April 17, 2024 12:00am June 29, 2024 10:59am Start: 09-28-2023 End: 04-17-2024 take 1 tablet by mouth every eight hours Ondansetron 4 mg tablet,disintegrating Discontinued 4 MG PO Q8H 9 September 28, 2023 1:00am April 17, 2024 9:55am Start: 12-29-2022 End: 01-18-2023 take 1 tablet by mouth every eight hours as needed for nausea and vomiting Ondansetron 4 mg tablet,disintegrating Discontinued 4 MG PO Q8H as needed for nausea and vomiting December 29, 2022 12:00am January 18, 2023 9:58am predniSONE 20 mg oral tablet (7 sources) Start: 09-28-2023 End: 10-13-2023 take 2 tablets by mouth once daily Prednisone 20 mg tablet Discontinued 40 MG PO Daily 6 September 28, 2023 1:00am October 13, 2023 2:14pm Start: 09-28-2023 End: 10-13-2023 take 40 mg by mouth once daily Prednisone Discontinued 40 MG PO Daily 6 September 28, 2023 1:00am October 13, 2023 2:14pm Prenat.Vits,Maximo,Qfa-Caxw-Xuy ic ( Vitamin) Tablet (12 sources) Start: 01-29-2021 End: 12-29-2022 take 1 tablet by mouth once daily Prenat.Vits,Maximo,Ipa-Inic-Ukyac ( Vitamin) Tablet Discontinued 1 TAB PO Daily January 28, 2021 11:00pm December 29, 2022 11:53am Start: 01-29-2021 End: 12-29-2022 take 1 tablet by mouth once daily Prenat.Vits,Maximo,Aas-Rqwx-Oeidy ( Vitamin) Tablet Discontinued 1 TAB PO Daily January 29, 2021 12:00am December 29, 2022 12:53pm Problems Active Problems Problem Classification Problem Date Documented Da te Episodic/Chronic Anxiety disorders (20 sources) Anxiety; Translations: [Anxiety disorder, unspecified] Onset: 3 04-09-2023 Chronic Asthma (20 sources) Asthma; Translations: [Unspecified asthma, uncomplicated] Onset: 3 04-09-2023 Chronic Esophageal disorders (20 sources) Gastro-esophageal reflux disease without esophagitis; Translations: [Gastroesophageal reflux disease without esophagitis] Onset: 2 04-09-2023 Chronic Fluid and electrolyte disorders (7 sources) Dehydration; Translations: [Dehydration] 09-28-2023 Episodic Hemorrhage during ; abruptio placenta; placenta previa (12 sources) Threatened miscarriage; Translations: [Threatened ] 10-12-2020 Episodic Immunizations and screening for infectious disease (3 sources) Contact with and (suspected) exposure to infections with a predominantly sexual mode of transmission; Translations: [Exposure to sexually transmissible disorder] Onset: 2 01-25-2025 Episodic Menstrual disorders (19 sources) Irregular menstruation, unspecified; Translations: [Dysmenorrhea] Onset: 2 Chronic Mood disorders (2 sources) Bipolar I disorder; Translations: [Bipolar disorder, unspecified] 04-29-2024 Chronic Nonspecific chest pain (20 sources) Atypical chest pain; Translations: [Other chest pain] Onset: 5 01-02-2022 Episodic OB-related trauma to perineum and vulva (1 source) Second degree perineal laceration during delivery; Translations: [SECOND DEG PERINEAL LAC DUR DELIV] Onset: 2 Episodic Other acquired deformities (1 source) Scoliosis, unspecified; Translations: [SCOLIOSIS UNSPECIFIED] Onset: 2 Chronic Other complications of ; puerperium affecting management of mother (1 source) Streptococcus B carrier state complicating childbirth; Translations: [STREP B SOTELO STATE COMP CHILDBIRTH] Onset: 2 Episodic Other complications of ; puerperium affecting management of mother (1 source) Diseases of the digestive system complicating childbirth; Translations: [DZ DIGESTIVE SYSTEM COMP CHILDBIRTH] Onset: 2 Episodic Other complications of (4 sources) Maternal care for other known or suspected poor growth, third trimester, not applicable or unspecified; Translations: [MAT CARE OTH CO FTL GRTH 3RD TM UNS] Onset: 2 Episodic Other complications of (4 sources) Other specified related conditions, third trimester; Translations: [OTH SPEC PREG RELATED COND 3RD TRI] Onset: 2 Episodic Other complications of (5 sources) Other specified related conditions, second trimester; Translations: [OTH SPEC PREG RELATED COND 2ND TRI] Onset: 2 Episodic Other complications of (4 sources) Gastroesophageal reflux disease in ; Translations: [Diseases of the digestive system complicating , unspecified trimester] 02-22-2025 Episodic Other complications of (2 sources) size does not accord with dates; Translations: [Uterine size-date discrepancy, first trimester] 03-29-2025 Episodic Other female genital disorders (11 sources) Abnormal vaginal bleeding; Translations: [Abnormal uterine and vaginal bleeding, unspecified] 01-18-2023 Chronic Other female genital disorders (2 sources) Vaginal discharge; Translations: [Other specified noninflammatory disorders of vagina] 01-25-2025 Episodic Other gastrointestinal disorders (2 sources) Irritable bowel syndrome with diarrhea; Translations: [Irritable bowel syndrome with diarrhea] Chronic Other gastrointestinal disorders (14 sources) Diarrhea; Translations: [Diarrhea, unspecified] 12-29-2022 Episodic Other gastrointestinal disorders (2 sources) Altered bowel function; Translations: [Change in bowel habit] Episodic Other gastrointestinal disorders (2 sources) Diarrhea, unspecified Episodic Other nutritional; endocrine; and metabolic disorders (2 sources) Abnormal weight loss Episodic Other nutritional; endocrine; and metabolic disorders (1 source) Weight loss; Translations: [Abnormal weight loss] Episodic Other and delivery including normal (20 sources) Single live ; Translations: [Encounter for supervision of other normal , third trimester] Onset: 2 Episodic Other screening for suspected conditions (not mental disorders or infectious disease) (18 sources) Encounter for screening for diabetes mellitus; Translations: [Encounter for other specified screening] Onset: 2 Episodic Other upper respiratory infections (2 sources) Viral upper respiratory tract infection; Translations: [Acute upper respiratory infection, unspecified] 08-02-2024 Episodic Pneumonia (except that caused by tuberculosis or sexually transmitted disease) (7 sources) Pneumonia; Translations: [Pneumonia, unspecified organism] 09-28-2023 Episodic Residual codes; unclassified (1 source) 38 weeks gestation of ; Translations: [38 WEEKS GESTATION OF ] Onset: 2 Episodic Residual codes; unclassified (1 source) 35 weeks gestation of ; Translations: [35 WEEKS GESTATION OF ] Onset: 2 Episodic Residual codes; unclassified (1 source) 33 weeks gestation of ; Translations: [33 WEEKS GESTATION OF ] Onset: 2 Episodic Residual codes; unclassified (12 sources) History of headache; Translations: [Personal history of other specified conditions] 07-29-2020 Episodic Residual codes; unclassified (2 sources) Unprotected sexual intercourse; Translations: [High risk heterosexual behavior] 08-25-2024 Episodic Residual codes; unclassified (2 sources) Gestation period, 14 weeks; Translations: [14 weeks gestation of ] 12-07-2024 Episodic Residual codes; unclassified (2 sources) Gestation period, 21 weeks; Translations: [21 weeks gestation of ] 01-25-2025 Episodic Residual codes; unclassified (10 sources) Gestation period, 25 weeks; Translations: [25 weeks gestation of ] Onset: 5 02-22-2025 Episodic Residual codes; unclassified (2 sources) Gestation period, 30 weeks; Translations: [30 weeks gestation of ] 03-29-2025 Episodic Residual codes; unclassified (2 sources) Gestation period, 33 weeks; Translations: [33 weeks gestation of ] 04-22-2025 Episodic Sprains and strains (3 sources) Shoulder strain; Translations: [Strain of unspecified muscle, fascia and tendon at shoulder and upper arm level, right arm, initial encounter] 09-21-2024 Episodic Substance-related disorders (20 sources) Cannabis abuse; Translations: [Cannabis abuse, uncomplicated] Onset: 4 04-17-2024 Chronic Substance-related disorders (2 sources) Drug use complicating childbirth; Translations: [Cannabis use, unspecified, uncomplicated] Onset: 2 Episodic Syncope (20 sources) Vasovagal syncope; Translations: [Syncope and collapse] 02-08-2022 Episodic Unclassified (1 source) CONTACT W/AND (SUSP) EXPOS COVID-19; Translations: [CONTACT W/AND (SUSP) EXPOS COVID-19] Onset: 2 Unclassified (1 source) Cough, unspecified; Translations: [Cough, unspecified] Onset: 5 Past or Other Problems Problem Classification Problem Date Documented Date Episodic/Chronic Abdominal pain (20 sources) Abdominal pain; Translations: [Unspecified abdominal pain] Onset: 04-17-2024 12-29-2022 Episodic Allergic reactions (2 sources) Allergic urticaria; Translations: [Allergic urticaria] 04-29-2024 Episodic Attention-deficit, conduct, and disruptive behavior disorders (20 sources) Attention deficit hyperactivity disorder; Translations: [Attention-deficit hyperactivity disorder, unspecified type] Onset: 12-20-2023 Resolved: 12-20-2023 12-20-2023 Chronic Miscellaneous mental health disorders (20 sources) depression; Translations: [ depression] Onset: 12-20-2023 12-20-2023 Episodic Other non-traumatic joint disorders (20 sources) Pain of left wrist; Translations: [Pain in left wrist] Onset: 04-09-2023 04-09-2023 Episodic Other non-traumatic joint disorders (20 sources) Multiple joint pain; Translations: [Pain in unspecified joint] Onset: 04-09-2023 04-09-2023 Episodic Other non-traumatic joint disorders (1 source) Pain in right shoulder; Translations: [Pain in right shoulder] Onset: 09-21-2024 Episodic Residual codes; unclassified (1 source) 25 weeks gestation of ; Translations: [25 WEEKS GESTATION OF ] Onset: 04-26-2022 Episodic Suicide and intentional self-inflicted injury (5 sources) Suicide attempt ; Translations: [Suicide attempt, initial encounter] Onset: 06-29-2024 06-29-2024 Episodic Results Test Name Value Interpretation Reference Range Facility Urinalysis macro (dipstick) panel (U)on 04-22-2025 Bilirubin, UA Negative Negative - 4(70) +++ mg/dL [facility] Blood, UA Negative Negative - 50 Regino/mcL [facility] Clarity, UA Clear [facility] Color, UA Yellow [facility] Glucose, UA Negative Negative - 2000(110) ++++ mg/dL [facility] Interpretation and review of laboratory results Normal [facility] Ketones, UA Negative Negative - 160(16) ++++ mg/dL [facility] Leukocytes, UA Negative Negative - 500+++ Dara/mcL [facility] Nitrite, UA Negative Negative - Positive [facility] pH, UA 7 5 - 9 [facility] Protein, UA Negative Negative - 2000(20) ++++ mg/dL [facility] Spec Grav, UA 1.015 1 - 1.03 [facility] Urobilinogen, UA 0.2 0.2 - 12 mg/dL [facility] ALL CBC WITH AUTO DIFFon BASOPHILS ABSOLUTE AUTO 0 N [facility] Basophils/100 WBC (Bld) 0.2 % 0.2 - 2.0 % [facility] Eosinophils/100 WBC (Bld) 2.2 % 0.9 - 7.0 % [facility] Erythrocyte distribution width (RBC) [Ratio] 12.8 % 11.0 - 15.0 % [facility] Hematocrit (Bld) [Volume fraction] 33.8 % Low 36.0 - 48.0 % [facility] Hemoglobin (Bld) [Mass/Vol] 11.1 g/dL Low 12.0 - 16.0 g/dL [facility] IMMATURE GRANULOCYTES ABS AUTO 0.1 High [facility] Immature granulocytes/100 WBC (Bld) 0.9 % High 0.0 - 0.5 % [facility] Interpretation and review of laboratory results Abnormal [facility] LYMPHOCYTES ABSOLUTE AUTO 1.7 [facility] Lymphocytes/100 WBC (Bld) 14.7 % Low 20.5 - 60.0 % [facility] MCH (RBC) [Entitic mass] 29.3 pg 26.7 - 34.0 pg [facility] MCHC (RBC) [Mass/Vol] 32.8 g/dL 29.9 - 35.2 g/dL [facility] MCV (RBC) [Entitic vol] 89.2 fL 81.0 - 99.0 fL [facility] MONOCYTES ABSOLUTE AUTO 0.6 N [facility] Monocytes/100 WBC (Bld) 4.7 % 1.7 - 12.0 % [facility] NEUTROPHILS ABSOLUTE AUTO 9.1 High [facility] Neutrophils/100 WBC (Bld) 77.3 % High 43.0 - 75.0 % [facility] Platelet mean volume (Bld) [Entitic vol] 9.1 fL Low 9.5 - 13.5 fL [facility] TBH EO # 0.3 [facility]H PLT 256 [facility] RBC 3.79 Low [facility] WBC 11.7 High [facility] Urinalysis macro (dipstick) panel (U)on 03-29-2025 Bilirubin, UA Negative Negative - 4(70) +++ mg/dL [facility] Blood, UA Negative Negative - 50 Regino/mcL [facility] Clarity, UA Clear [facility] Color, UA Yellow [facility] Glucose, UA Negative Negative - 1999(110) ++++ mg/dL [facility] Interpretation and review of laboratory results Abnormal [facility] Ketones, UA Negative Negative - 160(16) ++++ mg/dL [facility] Leukocytes, UA Negative Negative - 500+++ Dara/mcL [facility] Nitrite, UA Negative Negative - Positive [facility] pH, UA 7.5 5 - 9 [facility] Protein, UA Trace Negative - 1999(20) ++++ mg/dL [facility] Spec Grav, UA 1.01 1 - 1.03 [facility] Urobilinogen, UA 0.2 0.2 - 12 mg/dL [facility] Urinalysis macro (dipstick) panel (U)on 02-22-2025 Bilirubin, UA Negative Negative - 4(70) +++ mg/dL [facility] Blood, UA Negative Negative - 50 Regino/mcL [facility] Clarity, UA Clear [facility] Color, UA Yellow [facility] Glucose, UA Negative Negative - 1999(110) ++++ mg/dL [facility] Interpretation and review of laboratory results Normal [facility] Ketones, UA Negative Negative - 160(16) ++++ mg/dL [facility] Leukocytes, UA Negative Negative - 500+++ Dara/mcL [facility] Nitrite, UA Negative Negative - Positive [facility] pH, UA 6 5 - 9 [facility] Protein, UA Negative Negative - 1999(20) ++++ mg/dL [facility] Spec Grav, UA 1.02 1 - 1.03 [facility] Urobilinogen, UA 0.2 0.2 - 12 mg/dL [facility] US venous duplex LE BIon US venous duplex LE [facility] [place] [address] Ultrasound Report Signed Patient: Dawn Major MR#: [id number] : 2000 Acct:[id number] Age/Sex: 24 / F ADM Date: 01/30/25 Loc: ER Room: Type: [facility] ER Attending Dr: Ordering Provider: Vipin Stroud DO Date of Service: 01/30/25 US/US venous duplex LE BI: r/o dvt Copies to: Vipin Stroud DO BILATERAL LOWER EXTREMITY VENOUS DUPLEX INDICATION: Leg pain PROCEDURE: Color-flow duplex scanning is used to interrogate the deep venous system of the right and left lower extremities. The common femoral vein, femoral vein and popliteal vein show good compressibility with normal proximal and distal augmentation. The posterior tibial and peroneal veins are compressible. US/US venous duplex LE BI IMPRESSION: NO EVIDENCE FOR DEEP VEIN THROMBOSIS OR PROXIMAL SUPERFICIAL THROMBOPHLEBITIS IN THE RIGHT OR LEFT LOWER EXTREMITY. Impression dictated by: Arvin Gonzales M.D. 02/02/2025 12:17 PM Dictation Location: [place] [address] Tech: Alice García Transcribed By: SHERINE 02/02/251216 Dictated By: Arvin Gonzales MD 02/02/251215 Signed By: 02/02/25 121 Normal [facility] Alanine aminotransferase [En zymatic activity/volume] in Serum or PlasmaOrdered By: Vipin Stroud on 01-30-2025 ALT [Catalytic activity/Vol] Alanine aminotransferase [Enzymatic activity/volume] in Serum or Plasma Low 7-52 [facility] Albumin [Mass/volume] in Ser um or Plasma by Bromocresol green (BCG) dye binding methoOrdered By: Vipin Stroud on 01-30-2025 Albumin BCG dye [Mass/Vol] Albumin [Mass/volume] in Serum or Plasma by Bromocresol green (BCG) dye binding metho 3.5-5.7 [facility] Alkaline phosphatase [Enzyma tic activity/volume] in Serum or PlasmaOrdered By: Vipin Stroud on 01-30-2025 ALP [Catalytic activity/Vol] Alkaline phosphatase [Enzymatic activity/volume] in Serum or Plasma 34-104 [facility] Amphetamine Screen Ql (U)Ord ered By: YAKOV MCDONOUGH on 01-30-2025 Amphetamines Ql (U) Amphetamines screen Negativ e [facility] Appearance of UrineOrdered B y: YAKOV MCDONOUGH on 01-30-2025 Appearance (U) Urine appearance Clear [facility] Aspartate aminotransferase [ Enzymatic activity/volume] in Serum or PlasmaOrdered By: Vipin Stroud on 01-30-2025 AST [Catalytic activity/Vol] Aspartate aminotransferase [Enzymatic activity/volume] in Serum or Plasma Low 13-39 [facility] Barbiturates [Presence] in U rine by Screen methodOrdered By: YAKOV MCDONOUGH on 01-30-2025 Barbiturates Screen Ql (U) Barbiturates [Presence] in Urine by Screen method Negative [facility] Basic Metabolic Panelon 01-08 Anion gap [Moles/Vol] 9.8 mmol/L Normal 6.0-15.0 [facility] Comment on above: Performed By: #### H S TROP, PTT, HEPATIC, DDIMER, CBC, LIPASE, BMP, PT ####[address] Calcium [Mass/Vol] 8.8 mg/dL Normal 8.6-10.3 [facility] Comment on above: Performed By: #### H S TROP, PTT, HEPATIC, DDIMER, CBC, LIPASE, BMP, PT ####[address] Chloride [Moles/Vol] 105 mmol/L Normal 98-107 [facility] Comment on above: Performed By: #### H S TROP, PTT, HEPATIC, DDIMER, CBC, LIPASE, BMP, PT ####[address] CO2 [Moles/Vol] 25.1 mmol/L Normal 21.0-31.0 [facility] Comment on above: Performed By: #### H S TROP, PTT, HEPATIC, DDIMER, CBC, LIPASE, BMP, PT ####[address] Creatinine [Mass/Vol] 0.47 mg/dL Low 0.60-1.20 [facility] Comment on above: Performed By: #### H S TROP, PTT, HEPATIC, DDIMER, CBC, LIPASE, BMP, PT ####[address] Creatinine Clr Calc Pharmacy 141.68 Normal [facility] Comment on above: Performed By: #### H S TROP, PTT, HEPATIC, DDIMER, CBC, LIPASE, BMP, PT ####[address] GFR/1.73 sq M.predicted MDRD (S/P/Bld) [Vol rate/Area] mL/min/{1.73_m2} Normal [facility] Comment on above: Performed By: #### H S TROP, PTT, HEPATIC, DDIMER, CBC, LIPASE, BMP, PT ####[place] [id number] [address] Glucose [Mass/Vol] 83 mg/dL Normal 70-100 [facility] Comment on above: Result Comment: [facility] Glucose Reference Range is dependent on time and content of last meal. Glucose of more than 200 mg/dL in a nonstressed, ambulatory subject supports the diagnosis of Diabetes Mellitus. ADA recommended reference range Performed By: #### H S TROP, PTT, HEPATIC, DDIMER, CBC, LIPASE, BMP, PT ####[address] Potassium [Moles/Vol] 3.9 mmol/L Normal 3.5-5.1 [facility] Comment on above: Performed By: #### H S TROP, PTT, HEPATIC, DDIMER, CBC, LIPASE, BMP, PT ####[place] [address] [address] Sodium [Moles/Vol] 136 mmol/L Normal 136-145 [facility] Comment on above: Performed By: #### H S TROP, PTT, HEPATIC, DDIMER, CBC, LIPASE, BMP, PT ####[address] Urea nitrogen [Mass/Vol] 6 mg/dL Low 7-25 [facility] Comment on above: Performed By: #### H S TROP, PTT, HEPATIC, DDIMER, CBC, LIPASE, BMP, PT ####[address] Basophils Auto (Bld) [#/Vol] Ordered By: Vipin Stroud on 01-30-2025 Basophils (Bld) [#/Vol] Automated basophil count 0.0-0.2 [facility] Basophils/100 WBC Auto (Bld) Ordered By: Vipin Stroud on 01-30-2025 Basophils/100 WBC (Bld) Automated basophil % . [facility] Benzodiazepines Screen Ql (U )Ordered By: YAKOV MCDONOUGH on 01-30-2025 Benzodiazepines Ql (U) Benzodiazepines [ Presence] in Urine by Screen method Negative [facility] Benzoylecgonine [Presence] i n Urine by Screen methodOrdered By: YAKOV MCDONOUGH on 01-30-2025 Benzoylecgonine Screen Ql (U) Benzoylecgonine [Presence] in Urine by Screen method Negative [facility] Bilirubin Test strip Ql (U)O rdered By: YAKOV MCDONOUGH on 01-30-2025 Bilirubin Ql (U) Bilirubin.total [Pre sence] in Urine by Test strip Negative [facility] Bilirubin.direct [Mass/volum e] in Serum or PlasmaOrdered By: Vipin Stroud on 01-30-2025 Bilirubin.direct [Mass/Vol] Bilirubin.direct [Mass/volume] in Serum or Plasma 0.03-0.18 [facility] Bilirubin.total [Mass/volume ] in Serum or PlasmaOrdered By: Vipin Stroud on 01-30-2025 Bilirubin [Mass/Vol] Bilirubin.total [Mass/volume] in Serum or Plasma Low 0.3-1.0 [facility] Calcium [Mass/volume] in Ser um or PlasmaOrdered By: Vipin Stroud on 01-30-2025 Calcium [Mass/Vol] Calcium [Mass/volume ] in Serum or Plasma 8.6-10.3 [facility] Carbon dioxide, total [Moles /volume] in Serum or PlasmaOrdered By: Vipin Stroud on 01-30-2025 CO2 [Moles/Vol] Carbon dioxide, tota l [Moles/volume] in Serum or Plasma 21.0-31.0 [facility] Chloride [Moles/volume] in S isabel or PlasmaOrdered By: Vipin Stroud on 01-30-2025 Chloride [Moles/Vol] Chloride [Moles/vol ume] in Serum or Plasma 98-107 [facility] Color Auto (U)Ordered By: SHAAN MCDONOUGH on 01-30-2025 Color (U) Color of Urine by Auto Yellow [facility] Complete Blood Count Auto Di ffon 01-30-2025 Basophils (Bld) [#/Vol] 0.0 10*3/uL Normal 0.0-0.2 [facility] Comment on above: Result Comment: PERF ORMED BY: [facility] [address] [place] [address] PATHOLOGIST HAND LEATHER TRIMMER MARCO GALAVIZ M.D. Performed By: #### H S TROP, PTT, HEPATIC, DDIMER, CBC, LIPASE, BMP, PT #### [address] Basophils/100 WBC (Bld) 0.4 % Normal . [facility] Comment on above: Performed By: #### H S TROP, PTT, HEPATIC, DDIMER, CBC, LIPASE, BMP, PT #### [address] Eosinophils (Bld) [#/Vol] 0.2 10*3/uL Normal 0.0-0.45 [facility] Comment on above: Performed By: #### H S TROP, PTT, HEPATIC, DDIMER, CBC, LIPASE, BMP, PT #### [address] Eosinophils/100 WBC (Bld) 2.1 % Normal . [facility] Comment on above: Performed By: #### H S TROP, PTT, HEPATIC, DDIMER, CBC, LIPASE, BMP, PT #### [address] Erythrocyte distribution width (RBC) [Ratio] 13.7 % Normal 11.9-15.3 [facility] Comment on above: Performed By: #### H S TROP, PTT, HEPATIC, DDIMER, CBC, LIPASE, BMP, PT #### [address] Hematocrit (Bld) [Volume fraction] 36.2 % Normal 34.0-46.4 [facility] Comment on above: Performed By: #### H S TROP, PTT, HEPATIC, DDIMER, CBC, LIPASE, BMP, PT #### [address] Hemoglobin (Bld) [Mass/Vol] 12.7 g/dL Normal 11.8-15.4 [facility] Comment on above: Performed By: #### H S TROP, PTT, HEPATIC, DDIMER, CBC, LIPASE, BMP, PT #### [address] Lymphocytes (Bld) [#/Vol] 1.2 10*3/uL Normal 1.00-4.8 [facility] Comment on above: Performed By: #### H S TROP, PTT, HEPATIC, DDIMER, CBC, LIPASE, BMP, PT #### [address] Lymphocytes/100 WBC (Bld) 12.8 % Normal . [facility] Comment on above: Performed By: #### H S TROP, PTT, HEPATIC, DDIMER, CBC, LIPASE, BMP, PT #### [address] MCH (RBC) [Entitic mass] 30.8 pg Normal 24.7-34.3 [facility] Comment on above: Performed By: #### H S TROP, PTT, HEPATIC, DDIMER, CBC, LIPASE, BMP, PT #### [address] MCV (RBC) [Entitic vol] 87.8 fL Normal 80-100 [facility] Comment on above: Performed By: #### H S TROP, PTT, HEPATIC, DDIMER, CBC, LIPASE, BMP, PT #### [address] Mean Corpuscular HGB Conc 35.1 g/dL High 32.0-35.0 [facility] Comment on above: Performed By: #### H S TROP, PTT, HEPATIC, DDIMER, CBC, LIPASE, BMP, PT #### [address] Monocytes (Bld) [#/Vol] 0.3 10*3/uL Normal 0.0-0.8 [facility] Comment on above: Performed By: #### H S TROP, PTT, HEPATIC, DDIMER, CBC, LIPASE, BMP, PT #### [address] Monocytes/100 WBC (Bld) 15.98 % Normal 0.00-20.00 [facility] Comment on above: Performed By: #### H S TROP, PTT, HEPATIC, DDIMER, CBC, LIPASE, BMP, PT #### [address] Monocytes/100 WBC (Bld) 3.5 % Normal . T cr[facility] Comment on above: Performed By: #### H S TROP, PTT, HEPATIC, DDIMER, CBC, LIPASE, BMP, PT #### [address] Neutrophils (Bld) [#/Vol] 7.9 10*3/uL High 1.8-7.7 [facility] Comment on above: Performed By: #### H S TROP, PTT, HEPATIC, DDIMER, CBC, LIPASE, BMP, PT #### [address] Neutrophils/100 WBC (Bld) 81.2 % Normal . [facility] Comment on above: Performed By: #### H S TROP, PTT, HEPATIC, DDIMER, CBC, LIPASE, BMP, PT #### [address] NRBC% 0.0 /100{WBC} Normal 0-0.5 [facility] Comment on above: Performed By: #### H S TROP, PTT, HEPATIC, DDIMER, CBC, LIPASE, BMP, PT #### [address] Platelet mean volume (Bld) [Entitic vol] 7.4 fL Normal 6.3-10.7 [facility] Comment on above: Performed By: #### H S TROP, PTT, HEPATIC, DDIMER, CBC, LIPASE, BMP, PT #### [address] Platelets (Bld) [#/Vol] 253 10*3/uL Normal 150-450 [facility] Comment on above: Performed By: #### H S TROP, PTT, HEPATIC, DDIMER, CBC, LIPASE, BMP, PT #### [address] RBC (Bld) [#/Vol] 4.12 10*6/uL Normal 3.60-5.00 [facility] Comment on above: Performed By: #### H S TROP, PTT, HEPATIC, DDIMER, CBC, LIPASE, BMP, PT #### [facility] [address] [place] [id number] [facility] WBC (Bld) [#/Vol] 9.7 10*3/uL Normal 3.8-11.6 [facility] Comment on above: Performed By: #### H S TROP, PTT, HEPATIC, DDIMER, CBC, LIPASE, BMP, PT #### [facility] [address] Creatinine [Mass/volume] in Serum or PlasmaOrdered By: Vipin Stroud on 01-30-2025 Creatinine [Mass/Vol] Creatinine [Mass/v olume] in Serum or Plasma Low 0.60-1.20 [facility] D-Dimer High Sensitivityon 0 01-30-2025 D-Dimer High Sensitivity 209 ng/mL Normal 0-243 [facility] Comment on above: Result Comment: [...] coagulation studies. Please contact the laboratory at [phone] for redraw instructions. PERFORMED BY: [place] [address] PATHOLOGIST HAND LEATHER TRIMMER MARCO GALAVIZ M.D. Performed By: #### H S TROP, PTT, HEPATIC, DDIMER, CBC, LIPASE, BMP, PT ####[facility] [id number] [place] [address] [facility] ECG 12 lead ECGon 01-30-2025 ECG 12 lead ECG [facility] [address] [place] [address] [place] [id number] Electrocardiograph Report Signed Patient: Dawn Major MR#: [id number] : 2000 Acct:[id number] Age/Sex: 24 / F ADM Date: 01/30/25 Loc: ER Room: Type: [facility] ER Attending Dr: Ordering Provider: Vipin Stroud DO Date of Service: 01/30/25 ECG/ECG 12 lead ECG: Chest Pain Copies to: Test Reason : Blood Pressure : */* mmHG Vent. Rate : 74 BPM Atrial Rate : 74 BPM P-R Int : 128 ms QRS Dur : 80 ms QT Int : 372 ms P-R-T Axes : 55 76 28 degrees QTcB Int : 412 ms Normal sinus rhythm with sinus arrhythmia Confirmed by Vipin Stroud DO ([id number]) on 01/31/2025 6:56:09 AM Referred By: Electronically Signed By: Vipin Stroud DO Transcribed By: MUS Signed By Vipin Stroud DO [id number] Normal [facility] Eosinophils Auto (Bld) [#/Vo l]Ordered By: Vipin Stroud on 01-30-2025 Eosinophils (Bld) [#/Vol] Automated eosinophil count 0.0-0.45 [facility] Eosinophils/100 WBC Auto (Bl d)Ordered By: Vipin Stroud on 01-30-2025 Eosinophils/100 WBC (Bld) Automated eosinophil % . [facility] Erythrocyte distribution wid th Auto (RBC) [Ratio]Ordered By: Vipin Stroud on 01-30-2025 Erythrocyte distribution width (RBC) [Ratio] Erythrocyte distribution width [Ratio] by Automated count 11.9-15.3 [facility] Fibrin D-dimer [Presence] in Platelet poor plasma by Latex agglutinationOrdered By: Vipin Stroud on 01-30-2025 Fibrin D-dimer LA Ql (PPP) Fibrin D-dimer [Presence] in Platelet poor plasma by Latex agglutination 0-243 [facility] Comment on above: The reference range [...] coagulation studies. Please contact the laboratory at [phone] for redraw instructions. Globulin Calc (S) [Mass/Vol] Ordered By: Vipin Stroud on 01-30-2025 Globulin (S) [Mass/Vol] Serum globulin m easurement by calculation (mass/volume) [facility] Glucose [Mass/volume] in Ser um or PlasmaOrdered By: Vipin Stroud on 01-30-2025 Glucose [Mass/Vol] Glucose [Mass/volume ] in Serum or Plasma 70-100 [facility] Comment on above: ADA recommended refe rence rangeRandom Glucose Reference Range is dependent on time and content of last meal. Glucose of more than 200 mg/dL in a nonstressed, ambulatory subject supports the diagnosis of Diabetes Mellitus. Glucose [Mass/volume] in Uri ne by Test stripOrdered By: YAKOV MCDONOUGH on 01-30-2025 Glucose Test strip (U) [Mass/Vol] Glucose [Mass/volume] in Urine by Test strip Normal [facility] Hematocrit Auto (Bld) [Volum e fraction]Ordered By: Vipin Stroud on 01-30-2025 Hematocrit (Bld) [Volume fraction] Hematocrit [Volume Fraction] of Blood by Automated count 34.0-46.4 [facility] Hemoglobin Test strip Ql (U) Ordered By: YAKOV MCDONOUGH on 01-30-2025 Hemoglobin Ql (U) Hemoglobin [Presence ] in Urine by Test strip Negative [facility] Hemoglobin [Mass/volume] in BloodOrdered By: Vipin Stroud on 01-30-2025 Hemoglobin (Bld) [Mass/Vol] Hemoglobin [Mass/volume] in Blood 11.8-15.4 [facility] Hepatic Panelon 01-30-2025 Albumin [Mass/Vol] 3.9 g/dL Normal 3.5-5.7 [facility] Comment on above: Performed By: #### H S TROP, PTT, HEPATIC, DDIMER, CBC, LIPASE, BMP, PT #### [address] Albumin/Globulin [Mass ratio] 1.3 {ratio} Normal [facility] Comment on above: Performed By: #### H S TROP, PTT, HEPATIC, DDIMER, CBC, LIPASE, BMP, PT #### [address] ALP [Catalytic activity/Vol] 44 U/L Normal 34-104 [facility] Comment on above: Performed By: #### H S TROP, PTT, HEPATIC, DDIMER, CBC, LIPASE, BMP, PT #### [address] ALT [Catalytic activity/Vol] 6 U/L Low 7-52 [facility] Comment on above: Performed By: #### H S TROP, PTT, HEPATIC, DDIMER, CBC, LIPASE, BMP, PT #### [address] AST [Catalytic activity/Vol] 12 U/L Low 13-39 [facility] Comment on above: Performed By: #### H S TROP, PTT, HEPATIC, DDIMER, CBC, LIPASE, BMP, PT #### [address] Bilirubin [Mass/Vol] 0.2 mg/dL Low 0.3-1.0 [facility] Comment on above: Performed By: #### H S TROP, PTT, HEPATIC, DDIMER, CBC, LIPASE, BMP, PT #### [address] Bilirubin,Indirect 0.1 mg/dL Normal [facility] Comment on above: Performed By: #### H S TROP, PTT, HEPATIC, DDIMER, CBC, LIPASE, BMP, PT #### [address] Bilirubin.indirect [Mass/Vol] 0.10 mg/dL Normal 0.03-0.18 [facility] Comment on above: Performed By: #### H S TROP, PTT, HEPATIC, DDIMER, CBC, LIPASE, BMP, PT #### [address] Globulin (S) [Mass/Vol] 2.9 g/dL Normal [facility] Comment on above: Performed By: #### H S TROP, PTT, HEPATIC, DDIMER, CBC, LIPASE, BMP, PT #### [address] Protein [Mass/Vol] 6.8 g/dL Normal 6.4-8.9 [facility] Comment on above: Performed By: #### H S TROP, PTT, HEPATIC, DDIMER, CBC, LIPASE, BMP, PT #### [facility] [address] INR in Platelet poor plasma by Coagulation assayOrdered By: Vipin Stroud on 01-30-2025 INR Coag (PPP) [Relative time] INR in Platelet poor plasma by Coagulation assay [facility] Comment on above: INR Therapeutic Rang [...] mechanical heart valves: 3 - 4.5 Ketones Test strip Ql (U)Ord ered By: YAKOV MCDONOUGH on 01-30-2025 Ketones Ql (U) Ketones [Presence] i n Urine by Test strip Negative [facility] Leukocyte esterase [Presence ] in Urine by Test stripOrdered By: YAKOV MCDONOUGH on 01-30-2025 Leukocyte esterase Test strip Ql (U) Leukocyte esterase [Presence] in Urine by Test strip Negative [facility] Leukocytes [#/volume] correc michael for nucleated erythrocytes in Blood by Automated counOrdered By: Vipin Stroud on 01-30-2025 WBC corrected for nucl RBC Auto (Bld) [#/Vol] Leukocytes [#/volume] corrected for nucleated erythrocytes in Blood by Automated coun 3.8-11.6 [facility] Lipaseon 01-30-2025 Lipase [Catalytic activity/Vol] 18.0 U/L Normal 11.0-82.0 [facility] Comment on above: Result Comment: PERF ORMED BY: [facility] [address] [facility] [place] [address] PATHOLOGIST HAND LEATHER TRIMMER MARCO GALAVIZ M.D. Performed By: #### H S TROP, PTT, HEPATIC, DDIMER, CBC, LIPASE, BMP, PT ####[facility] [id number] [place] [address] [facility] Lipase [Enzymatic activity/v olume] in Serum or PlasmaOrdered By: Vipin Stroud on 01-30-2025 Lipase [Catalytic activity/Vol] Lipase [Enzymatic activity/volume] in Serum or Plasma 11.0-82.0 [facility] Lymphocytes Auto (Bld) [#/Vo l]Ordered By: Vipin Stroud on 01-30-2025 Lymphocytes (Bld) [#/Vol] Lymphocytes [#/volume] in Blood by Automated count 1.00-4.8 [facility] Lymphocytes/100 WBC Auto (Bl d)Ordered By: Vipin Stroud on 01-30-2025 Lymphocytes/100 WBC (Bld) Lymphocytes/100 leukocytes in Blood by Automated count . [facility] MCH Auto (RBC) [Entitic mass ]Ordered By: Viipn Stroud on 01-30-2025 MCH (RBC) [Entitic mass] MCH [Entitic mass] by Automated count 24.7-34.3 [facility] MCHC Auto (RBC) [Mass/Vol]Or dered By: Vipin Stroud on 01-30-2025 MCHC (RBC) [Mass/Vol] MCHC [Mass/volume] by Automated count High 32.0-35.0 [facility] MCV Auto (RBC) [Entitic vol] Ordered By: Vipin Stroud on 01-30-2025 MCV (RBC) [Entitic vol] MCV [Entitic vol ume] by Automated count 80-100 [facility] Monocyte distribution width [Entitic volume] in Blood by AutomatedOrdered By: Vipin Stroud on 01-30-2025 Monocyte distribution width Auto (Bld) [Entitic vol] Monocyte distribution width [Entitic volume] in Blood by Automated 0.00-20.00 [facility] Monocytes Auto (Bld) [#/Vol] Ordered By: Vipin Stroud on 01-30-2025 Monocytes (Bld) [#/Vol] Automated blood monocyte count 0.0-0.8 [facility] Monocytes/100 WBC Auto (Bld) Ordered By: Vipin Stroud on 01-30-2025 Monocytes/100 WBC (Bld) Automated monocyte % . [facility] Neutrophils Auto (Bld) [#/Vo l]Ordered By: Vipin Stroud on 01-30-2025 Neutrophils (Bld) [#/Vol] Neutrophils [#/volume] in Blood by Automated count High 1.8-7.7 [facility] Neutrophils/100 WBC Auto (Bl d)Ordered By: Vipin Stroud on 01-30-2025 Neutrophils/100 WBC (Bld) Automated neutrophil % . [facility] Nitrite Test strip Ql (U)Ord ered By: YAKOV MCDONOUGH on 01-30-2025 Nitrite Ql (U) Nitrite [Presence] i n Urine by Test strip Negative [facility] No Panel InformationOrdered By: Vipin Stroud on 01-30-2025 Estimated GFR (CKD-EPI) > 60.0 mL/Min [facility] Creatinine Clearance (Chem 141.68 [facility] Nucleated erythrocytes [Pres ence] in Blood by Automated countOrdered By: Vipin Stroud on 01-30-2025 Nucleated RBC Auto Ql (Bld) Nucleated erythrocytes [Presence] in Blood by Automated count 0-0.5 [facility] OB Urine Drug Screen (NO THC )on 01-30-2025 Amphetamine Screen,Urine Negative Normal Negative [facility] Comment on above: Order Comment: Comme nt s/s of acute impairment Performed By: #### O BUDS, UA ####[facility] [place] [address] [facility] Barbiturate Screen,Urine Negative Normal Negative [facility] Comment on above: Order Comment: Comme nt s/s of acute impairment Performed By: #### O BUDS, UA ####[facility] [place] [address] [facility] Benzodiazepines Screen,Urine Negative Normal Negative [facility] Comment on above: Order Comment: Comme nt s/s of acute impairment Performed By: #### O BUDS, UA ####[facility] [place] [id number] [facility] Cocaine Screen,Urine Negative Normal Negative [facility] Comment on above: Order Comment: Comme nt s/s of acute impairment Performed By: #### O BUDS, UA ####[facility] [place] [id number] [facility] Opiate Screen,Urine Negative Normal Negative [facility] Comment on above: Order Comment: Comme nt s/s of acute impairment Performed By: #### O BUDS, UA ####[facility] [place] [id number] [facility] Phencyclidine Screen, Urine Negative Normal Negative [facility] Comment on above: Order Comment: Comme nt s/s of acute impairment Result Comment: Thes e are unconfirmed results and should not be used for legal purposes. Drug Cut-Off Concentration: AMPH 1000 ng/mL VENKATA 200 ng/mL BREANNA 200 ng/mL COCM 300 ng/mL OP 300 ng/mL PCP 25 ng/mL PERFORMED BY: [facility] [address] [place] [id number] PATHOLOGIST HAND LEATHER TRIMMER MARCO GALAVIZ M.D. Performed By: #### O BUDS, UA ####[place] [address] [place] [id number] [facility] Opiates [Presence] in Urine by Screen methodOrdered By: YAKOV MCDONOUGH on 01-30-2025 Opiates Screen Ql (U) Opiates [Presence] in Urine by Screen method Negative [facility] Partial Thromboplastin Timeo n 01-30-2025 aPTT Coag (Bld) [Time] 27.2 s Normal 25.1-36.5 [facility] Comment on above: Result Comment: A he matocrit value greater than 55% may lead to inaccurate results in coagulation testing. Patients having hematocrit values >55% require a special collection tube for coagulation studies. Please contact the laboratory at [phone] for redraw instructions. Performed By: #### H S TROP, PTT, HEPATIC, DDIMER, CBC, LIPASE, BMP, PT ####[facility] [address] [place] [address] [facility] Phencyclidine Screen Ql (U)O rdered By: YAKOV MCDONOUGH on 01-30-2025 Phencyclidine Ql (U) Phencyclidine [Pres ence] in Urine by Screen method Negative [facility] Comment on above: These are unconfirme d results and should not be used for legal purposes. Drug Cut-Off Concentration: AMPH 1000 ng/mL VENKATA 200 ng/mL BREANNA 200 ng/mL COCM 300 ng/mL OP 300 ng/mL PCP 25 ng/mL Platelet mean volume Auto (B ld) [Entitic vol]Ordered By: Vipin Stroud on 01-30-2025 Platelet mean volume (Bld) [Entitic vol] Platelet mean volume [Entitic volume] in Blood by Automated count 6.3-10.7 [facility] Platelets Auto (Bld) [#/Vol] Ordered By: Vipin Stroud on 01-30-2025 Platelets (Bld) [#/Vol] Platelets [#/vol ume] in Blood by Automated count 150-450 [facility] Potassium [Moles/volume] in Serum or PlasmaOrdered By: Vipin Stroud on 01-30-2025 Potassium [Moles/Vol] Potassium [Moles/v olume] in Serum or Plasma 3.5-5.1 [facility] Protein Test strip (U) [Mass /Vol]Ordered By: YAKOV MCDONOUGH on 01-30-2025 Protein (U) [Mass/Vol] Protein [Mass/vol ume] in Urine by Test strip Negative [facility] Protein [Mass/volume] in Ser um or PlasmaOrdered By: Vipin Stroud on 01-30-2025 Protein [Mass/Vol] Protein [Mass/volume ] in Serum or Plasma 6.4-8.9 [facility] Prothrombin Time INRon 01-30 INR Coag (PPP) [Relative time] 0.9 {INR} Normal [facility] Comment on above: Result Comment: [...] valves: 3 - 4.5 Performed By: #### H S TROP, PTT, HEPATIC, DDIMER, CBC, LIPASE, BMP, PT ####[place] [address] [address] PT Coag (PPP) [Time] 10.6 s Normal 9.0-12.9 [facility] Comment on above: Result Comment: A he matocrit value greater than 55% may lead to inaccurate results in coagulation testing. Patients having hematocrit values >55% require a special collection tube for coagulation studies. Please contact the laboratory at [phone] for redraw instructions. Performed By: #### H S TROP, PTT, HEPATIC, DDIMER, CBC, LIPASE, BMP, PT ####[place] [address] [address] Prothrombin time (PT)Ordered By: Vipin Stroud on 01-30-2025 PT Coag (PPP) [Time] Prothrombin time (PT) 9.0- 12.9 [facility] Comment on above: A hematocrit value g reater than 55% may lead to inaccurate results in coagulation testing. Patients having hematocrit values >55% require a special collection tube for coagulation studies. Please contact the laboratory at [phone] for redraw instructions. RBC Auto (Bld) [#/Vol]Ordere d By: Vipin Stroud on 01-30-2025 RBC (Bld) [#/Vol] Erythrocytes [#/volu me] in Blood by Automated count 3.60-5.00 [facility] Serum or plasma albumin/glob ulin mass ratioOrdered By: Vipin Stroud on 01-30-2025 Albumin/Globulin [Mass ratio] Serum or plasma albumin/globulin mass ratio [facility] Serum or plasma anion gap de terminationOrdered By: Vipin Stroud on 01-30-2025 Anion gap [Moles/Vol] Serum or plasma an ion gap determination 6.0-15.0 [facility] Serum or plasma non-glucuron idated bilirubin measurement (mass/volume)Ordered By: Vipin Stroud on 01-30-2025 Bilirubin.indirect [Mass/Vol] Serum or plasma non-glucuronidated bilirubin measurement (mass/volume) [facility] Sodium [Moles/volume] in Ser um or PlasmaOrdered By: Vipin Stroud on 01-30-2025 Sodium [Moles/Vol] Sodium [Moles/volume ] in Serum or Plasma 136-145 [facility] Specific gravity Test strip (U) [Rel density]Ordered By: YAKOV MCDONOUGH on 01-30-2025 Specific gravity (U) [Rel density] Specific gravity of Urine by Test strip 1.001-1.03 0 [facility] Troponin I High Sensitivityo n 01-30-2025 Troponin I High Sensitivity 3 Normal 0-15 [facility] Comment on above: Result Comment: The Troponin units of report have been changed to meet the Chest Pain Accreditation requirement, element EC5.M1l2. Troponin units are changed from pg/ml to ng/L. Also, the decimal is removed and results are in whole numbers. PERFORMED BY: [facility] [address] [place] [id number] PATHOLOGIST HAND LEATHER TRIMMER MARCO GALAVIZ M.D. Performed By: #### H S TROP, PTT, HEPATIC, DDIMER, CBC, LIPASE, BMP, PT ####[facility] [address] [place] [id number] [facility] Troponin I.cardiac [Mass/vol ume] in Serum or Plasma by Detection limit <= 0.01 ng/Ordered By: Vipin Stroud on 01-30-2025 Troponin I.cardiac DL <= 0.01 ng/mL [Mass/Vol] Troponin I.cardiac [Mass/volume] in Serum or Plasma by Detection limit <= 0.01 ng/ 0-15 [facility] Comment on above: The Troponin units o f report have been changed to meet the Chest Pain Accreditation requirement, element EC5.M1l2. Troponin units are changed from pg/ml to ng/L. Also, the decimal is removed and results are in whole numbers. Urea nitrogen [Mass/volume] in Serum or PlasmaOrdered By: Vipin Stroud on 01-30-2025 Urea nitrogen [Mass/Vol] Urea nitrogen [Mass/volume] in Serum or Plasma Low 7-25 [facility] Urinalysison 01-30-2025 Appearance (U) Clear Normal Clear [facility] Comment on above: Order Comment: Comme nt c/o urinary symptoms or increased blood pressure Name Collection Type:: Voided Performed By: #### O BUDS, UA ####[place] [address] [place] [id number] [facility] Bilirubin,Urine Negative Normal Negative [facility] Comment on above: Order Comment: Comme nt c/o urinary symptoms or increased blood pressure Name Collection Type:: Voided Performed By: #### O BUDS, UA ####[address] [address] [facility] Color (U) Light-Yellow Normal Yellow [facility] Comment on above: Order Comment: Comme nt c/o urinary symptoms or increased blood pressure Name Collection Type:: Voided Performed By: #### O BUDS, UA ####[address] [address] [facility] Glucose Ql (U) Normal Normal Normal [facility] Comment on above: Order Comment: Comme nt c/o urinary symptoms or increased blood pressure Name Collection Type:: Voided Performed By: #### O BUDS, UA ####[address] [address] [place] Ketones Ql (U) Negative Normal Negative [facility] Comment on above: Order Comment: Comme nt c/o urinary symptoms or increased blood pressure Name Collection Type:: Voided Performed By: #### O BUDS, UA ####[address] [address] [facility] Leukocyte esterase Test strip Ql (U) Negative Normal Negative [facility] Comment on above: Order Comment: Comme nt c/o urinary symptoms or increased blood pressure Name Collection Type:: Voided Performed By: #### O BUDS, UA ####[place] [id number] [facility] Nitrite,Urine Negative Normal Negative [facility] Comment on above: Order Comment: Comme nt c/o urinary symptoms or increased blood pressure Name Collection Type:: Voided Performed By: #### O BUDS, UA ####[place] [id number] [facility] Occult Blood,Urine Negative Normal Negative [facility] Comment on above: Order Comment: Comme nt c/o urinary symptoms or increased blood pressure Name Collection Type:: Voided Result Comment: PERF ORMED BY: [facility] [address] [facility] [place] [address] PATHOLOGIST HAND LEATHER TRIMMER MARCO GALAVIZ M.D. Performed By: #### O BUDS, UA ####[address] pH (U) 7.0 [pH] Normal 5.0-9.0 [facility] Comment on above: Order Comment: Comme nt c/o urinary symptoms or increased blood pressure Name Collection Type:: Voided Performed By: #### O BUDS, UA ####[place] [address] [facility] Protein,Urine Negative Normal Negative [facility] Comment on above: Order Comment: Comme nt c/o urinary symptoms or increased blood pressure Name Collection Type:: Voided Performed By: #### O BUDS, UA ####[place] [address] [facility] Specific[place],Urine 1.014 Normal 1.00 1-1.03 0 [facility] Comment on above: Order Comment: Comme nt c/o urinary symptoms or increased blood pressure Name Collection Type:: Voided Performed By: #### O BUDS, UA ####[place] [address] [facility] Urobilinogen,Urine Normal Normal Normal [facility] Comment on above: Order Comment: Comme nt c/o urinary symptoms or increased blood pressure Name Collection Type:: Voided Performed By: #### O BUDS, UA ####[facility] [address] Urobilinogen Test strip (U) [Mass/Vol]Ordered By: YAKOV MCDONOUGH on 01-30-2025 Urobilinogen (U) [Mass/Vol] Urobilinogen [Mass/volume] in Urine by Test strip Normal [facility] WBC Auto (Bld) [#/Vol]Ordere d By: Vipin Stroud on 01-30-2025 WBC (Bld) [#/Vol] Leukocytes [#/volume ] in Blood by Automated count 3.8-11.6 [facility] X-ray reportOrdered By: J Luis Newton on 01-30-2025 Study report [facility] [place] [address] XRay Report Signed Patient: Dawn Major MR#: [id number] : 2000 Acct:[id number] Age/Sex: 24 / F ADM Date: Loc: ER Room: Type: PRE ER Attending Dr: Copies to: Vipin Stroud DO~ Ordering Provider: Vipin Stroud DO Date of Service: 01/30/25 XR/XR chest 1V portable: Chest Pain XR chest 1V portable 01/30/2025 8:43 AM SIGNS AND SYMPTOMS: Chest pain, left upper quadrant pain PROTOCOL: Frontal radiograph of the chest COMPARISON: 10/13/2023 FINDINGS: The trachea is midline. The heart and mediastinal structures are within normal limits. The lung parenchyma is clear. The bony thorax is intact. There is a dextro convex curvature of the thoracic spine. XR/XR chest 1V portable IMPRESSION: No acute cardiopulmonary pathology. Impression dictated by: J Luis Newton M.D. 01/30/2025 8:55 AM Dictation Location: [place] [address] Transcribed By: [facility] 01/30/2555 Dictated By: J Luis Newton II, MD 01/30/2553 Signed By: 01/30/25854 [facility] Work Phone: XR chest 1V portableon 01-30 XR chest 1V portable [facility] Main [address] [address] XRay Report Signed Patient: Dawn Major MR#: [id number] : 2000 Acct:[id number] Age/Sex: 24 / F ADM Date: 01/30/25 Loc: ER Room: Type: PRE ER Attending Dr: Copies to: Vipin Stroud DO Ordering Provider: Vipin Stroud DO Date of Service: 01/30/25 XR/XR chest 1V portable: Chest Pain XR chest 1V portable 01/30/2025 8:43 AM SIGNS AND SYMPTOMS: Chest pain, left upper quadrant pain PROTOCOL: Frontal radiograph of the chest COMPARISON: 10/13/2023 FINDINGS: The trachea is midline. The heart and mediastinal structures are within normal limits. The lung parenchyma is clear. The bony thorax is intact. There is a dextro convex curvature of the thoracic spine. XR/XR chest 1V portable IMPRESSION: No acute cardiopulmonary pathology. Impression dictated by: J Luis Newton M.D. 01/30/2025 8:55 AM Dictation Location: [place] [address] Transcribed By: [facility] 01/30/25 0855 Dictated By: J Luis Newton II, MD 01/30/25 0853 Signed By: 01/30/25 0855 Normal [facility] aPTT in Platelet poor plasma by Coagulation assayOrdered By: Vipin Stroud on 01-30-2025 aPTT Coag (PPP) [Time] Activated partial thromboplastin time (aPTT) in platelet poor plasma by coagulation a 25.1-36.5 [facility] Comment on above: A hematocrit value g reater than 55% may lead to inaccurate results in coagulation testing. Patients having hematocrit values >55% require a special collection tube for coagulation studies. Please contact the laboratory at [phone] for redraw instructions. pH Test strip (U)Ordered By: YAKOV MCDONOUGH on 01-30-2025 pH (U) pH of Urine by Test strip 5.0-9.0 [facility] US OB ANATOMYon 01-27-2025 [place] [address] Ultrasound Report Signed Patient: DAWN MAJOR MR#: [id number] : 2000 Acct:[id number] Age/Sex: 24 / F ADM Date: 01/27/25 Loc: US Attending Dr: Demarco Orr D.O. Ordering Physician: Demarco Orr D.O. Date of Service: 01/27/25 Procedure(s): US OB anatomy Accession Number(s): [id number] cc: Demarco Orr D.O.; Geena ARAYA [address] [address] Patient Name: DAWN MAJOR MRN: [id number] date: 2000 Sex: F Assigned Patient Location: US Current Patient Location: US Accession/Order Number: [id number] Exam Date: 01/27/2025 12:50 Report Date: 01/27/2025 12:56 At the request of: DEMARCO ORR DO Procedure: US OB cervical length [...] all 4 extremities were surveyed by the neurology manager and no abnormalities were identified. The facial [...] was evaluated with a transvaginal probe. The neurology manager noted contractions during evaluation. There is no evidence of previa. The cervix is closed and measures approximately 3.7 cm in length. IMPRESSION: CLOSED CERVIX, WITHOUT ABNORMALITY. Impression dictated by: Catherine Cortes M.D. 01/27/2025 12:56 PM Dictation Location: [place] [address] Electronically authenticated by: [id number] Y Date: 01/27/2025 12:56 Dictated By: Catherine Cortes M.D. Signed By: 01/27/25 1258 DD/ 1256 TD/TT: Pediatric Intensive Physician: [facility] Radiology, Radiologi MD clarisa - 01/27/2025 [place] [address] Ultrasound Report Signed Patient: DAWN MAJOR MR#: [id number] : 2000 Acct:[id number] Age/Sex: 24 / F ADM Date: 01/27/25 Loc: US Attending Dr: Demarco Orr D.O. Ordering Physician: Demarco Orr D.O. Date of Service: 01/27/25 Procedure(s): US OB anatomy Accession Number(s): [id number] cc: Demaroc Orr D.O.; Geena ARAYA [place] [id number] Patient Name: DAWN MAJOR MRN: [facility]:[id number] date: 2000 Sex: F Assigned Patient Location: US Current Patient Location: US Accession/Order Number: [id number] Exam Date: 01/27/2025 12:50 Report Date: 01/27/2025 12:56 At the request of: DEMARCO ORR DO Procedure: US OB cervical length [...] all 4 extremities were surveyed by the neurology manager and no abnormalities were identified. The facial [...] with dates based on last menstrual period. US/ OB anatomy IMPRESSION: SINGLE LIVE INTRAUTERINE GESTATION WITH ULTRASOUND AGE OF 21 WEEKS 1 DAY. UNREMARKABLE ANATOMY SURVEY. ULTRASOUND OB CERVICAL LENGTH COMPARISON: None The cervix was evaluated with a transvaginal probe. The neurology manager noted contractions during evaluation. There is no evidence of previa. The cervix is closed and measures approximately 3.7 cm in length. IMPRESSION: CLOSED CERVIX, WITHOUT ABNORMALITY. Impression dictated by: Catherine Cortes M.D. 01/27/2025 12:56 PM Dictation Location: [place] [address] Electronically authenticated by: [id number] Y Date: 01/27/2025 12:56 Dictated By: Catherine Cortes M.D. Signed By: 01/27/25 1258 DD/ 1256 TD/TT: Pediatric Intensive Physician: [facility] Radiology Study observation (narrative) [facility] OB ANATOMYOrdered By: Herbert iologwolf Radiology on 01-27-2025 [facility] Work Phone: RECURRENT VAGINITIS (HTRX)on 01-26-2025 ATOPOBIUM VAGINAE 29.079 Abnormal [facility] ATOPOBIUM VAGINAE Detected Abnormal [facility] BVAB 2,3 (BACTERIAL VAGINOSIS ASSOCIATED BACTERIA 2, 3); MOBILUNCUS SPP 0 [facility] BVAB 2,3 (BACTERIAL VAGINOSIS ASSOCIATED BACTERIA 2, 3); MOBILUNCUS SPP Not detected [facility] MARILYNN ALBICANS, PARAPSILOSIS, TROPICALIS 0 [facility] MARILYNN ALBICANS, PARAPSILOSIS, TROPICALIS Not detected [facility] MARILYNN GLABRATA 0 [facility] MARILYNN GLABRATA Not detected [facility] MARILYNN KRUSEI 0 [facility] MARILYNN KRUSEI Not detected [facility] CHLAMYDIA TRACHOMATIS 0 [facility] CHLAMYDIA TRACHOMATIS Not detected N [facility] ERMB, C; MEFA 26.396 Abnormal [facility] ERMB, C; MEFA Detected Abnormal [facility] GARDNERELLA VAGINALIS 32.623 Abnormal [facility] GARDNERELLA VAGINALIS Detected Abnormal [facility] Interpretation and review of laboratory results Abnormal [facility] MEGASPHAERA (TYPES 1, 2) 0 [facility] MEGASPHAERA (TYPES 1, 2) Not detected [facility] MYCOPLASMA GENITALIUM 0 [facility] MYCOPLASMA GENITALIUM Not detected N [facility] NEISSERIA GONORRHOEAE 0 [facility] NEISSERIA GONORRHOEAE Not detected N [facility] TRICHOMONAS VAGINALIS 0 [facility] TRICHOMONAS VAGINALIS Not detected N [facility] Urinalysis macro (dipstick) panel (U)on 01-25-2025 Bilirubin, UA Negative Negative - 4(70) +++ mg/dL [facility] Blood, UA Negative Negative - 50 Regino/mcL [facility] Clarity, UA Clear [facility] Color, UA Yellow [facility] Glucose, UA Negative Negative - 1999(110) ++++ mg/dL [facility] Interpretation and review of laboratory results Normal [facility] Ketones, UA Negative Negative - 160(16) ++++ mg/dL [facility] Leukocytes, UA Negative Negative - 500+++ Dara/mcL [facility] Nitrite, UA Negative Negative - Positive [facility] pH, UA 7 5 - 9 [facility] Protein, UA Negative Negative - 1999(20) ++++ mg/dL [facility] Spec Grav, UA 1.02 1 - 1.03 [facility] Urobilinogen, UA 0.2 0.2 - 12 mg/dL [facility] BOX TESTon 12-03-2024 BOX TEST SENT OUT [facility] BOX1 [facility] BOX2 12/03/2024 [facility] BOX [facility] HCG ( test) Ql (U)o n 11-05-2024 Interpretation and review of laboratory results Abnormal [facility] Preg Test, Ur Positive Negative [facility] US OB TRANSVAGINALon 025 US OB TRANSVAGINAL [...] II, MD, PHD at 07-Nov-2024 07:21:38 AM [facility] [employer] Normal Not Available Comment on above: Order Comment: US OB TRANSVAGINAL No LMP recorded. Urinalysis macro (dipstick) panel (U)on 11-05-2024 Bilirubin, UA Negative Negative - 4(70) +++ mg/dL [facility] Blood, UA Negative Negative - 50 Regino/mcL [facility] Healthcare Clarity, UA Clear [facility] Color, UA Yellow [facility] Glucose, UA Negative Negative - 1999(110) ++++ mg/dL [facility] Interpretation and review of laboratory results Normal [facility] Healthcare Ketones, UA Negative Negative - 160(16) ++++ mg/dL [facility] Leukocytes, UA Negative Negative - 500+++ Dara/mcL [facility] Nitrite, UA Negative Negative - Positive [facility] pH, UA 7 5 - 9 [facility] Protein, UA Negative Negative - 1999(20) ++++ mg/dL [facility] Spec Grav, UA 1.02 1 - 1.03 [facility] Urobilinogen, UA 0.2 0.2 - 12 mg/dL [facility] X-ray reportOrdered By: Gerardo Hutton on 09-21-2024 Study report [facility] Main [address] [address] XRay Report Signed Patient: Dawn Major MR#: [id number] : 2000 Acct:[id number] Age/Sex: 24 / F ADM Date: 5 Loc: ER Room: Type: [facility] ER Attending Dr: Copies to: Derek [...] Micky Hutton M.D.09/21/2024 9:16 PM Dictation Location: [place] [address] Transcribed By: [facility] 09/21/242115 Dictated By: Micky Hutton MD 09/21/242114 Signed By: 09/21/242115 [facility] Work Phone: XR shoulder RT min 2V*on XR shoulder RT min 2V* [facility] Main [address] [address] XRay Report Signed Patient: Dawn Major MR#: [id number] : 2000 Acct:[id number] Age/Sex: 24 / F ADM Date: 09/21/24 Loc: ER Room: Type: [facility] ER Attending Dr: Copies to: Derek [...] 9:16 PM Dictation Location: RADIO-PC-22 Transcribed By: [facility] 09/21/242115 Dictated By: Micky Hutton MD 09/21/242114 Signed By: 09/21/242115 Normal [facility] Laboratory - Chemistry and C hemistry - challengeon 08-26-2024 HCG.intact+Beta subunit Qn <1 mIU/mL [facility] Comment on above: Female (Non- ) 0 - 5 (Postmenopausal) 0 - 8 Female () Weeks of Gestation 3 6 - 71 4 10 - 750 5 657 - 7953 6 325 - 41169 7 4082 -107009 8 06587 -503661 9 29496 -460350 10 62389 -188014 12 15114 -862971 14 95540 - 29957 15 05963 - 36347 16 3715 - 76294 17 3631 - 66737 18 1231 - 41403 Gavin ECLIA methodology No Panel Informationon 08-26 Performed at: - [address] [id number] [employer] Person: Mendel Rubin PhD, Phone: [phone] [facility] HCG ( test) Ql (U)o n 08-25-2024 Interpretation and review of laboratory results Normal [facility] Preg Test, Ur Negative Negative [facility] Alanine aminotransferase [En zymatic activity/volume] in Serum or PlasmaOrdered By: Paramjit Yanes on 06-29-2024 ALT [Catalytic activity/Vol] 6 U/L Low 7-52 [facility] Comment on above: Performed By: #### E CAPO, CBC, CMP ####[facility] [id number] [place] [id number] [facility] ALT [Catalytic activity/Vol] Alanine aminotransferase [Enzymatic activity/volume] in Serum or Plasma Low [facility] Albumin [Mass/volume] in Ser um or Plasma by Bromocresol green (BCG) dye binding methoOrdered By: Paramjit Yanes on 06-29-2024 Albumin BCG dye [Mass/Vol] 5.1 g/dL 3.5-5.7 [facility] Albumin BCG dye [Mass/Vol] Albumin [Mass/volume] in Serum or Plasma by Bromocresol green (BCG) dye binding metho 3.5-5.7 [facility] Alkaline phosphatase [Enzyma tic activity/volume] in Serum or PlasmaOrdered By: Paramjit Yanes on 06-29-2024 ALP [Catalytic activity/Vol] 43 U/L Normal 34-104 [facility] Comment on above: Performed By: #### E CAPO, CBC, CMP ####[facility] [id number] [place] [address] [facility] ALP [Catalytic activity/Vol] Alkaline phosphatase [Enzymatic activity/volume] in Serum or Plasma 34-104 [facility] Amphetamine Screen Ql (U)Ord ered By: Paramjit Yanes on 06-29-2024 Amphetamines Ql (U) Amphetamines screen Negativ e [facility] Amphetamines Ql (U) Negative Negative [facility] Appearance of UrineOrdered B y: Paramjit Yanes on 06-29-2024 Appearance (U) Urine appearance Clear [facility] Aspartate aminotransferase [ Enzymatic activity/volume] in Serum or PlasmaOrdered By: Paramjit Yanes on 06-29-2024 AST [Catalytic activity/Vol] 15 U/L Normal 39 [facility] Comment on above: Performed By: #### E CAPO, CBC, CMP ####[facility] [id number] [place] [id number] [facility] AST [Catalytic activity/Vol] Aspartate aminotransferase [Enzymatic activity/volume] in Serum or Plasma [facility] Automated basophil %Ordered By: Paramjit Yanes on 06-29-2024 Basophils/100 WBC (Bld) 0.6 % Normal . [facility] Comment on above: Performed By: #### E CAPO, CBC, CMP ####[address] Automated basophil countOrde red By: Paramjit Yanes on 06-29-2024 Basophils (Bld) [#/Vol] 0.0 10*3/uL Normal 0.0-0.2 [facility] Comment on above: Result Comment: PERF ORMED BY: [facility] [address] [place] [address] PATHOLOGIST HAND LEATHER TRIMMER KIERSTEN BYNUM M.D. Performed By: #### E CAPO, CBC, CMP ####[address] Automated blood monocyte cou ntOrdered By: Paramjit Yanes on 06-29-2024 Monocytes (Bld) [#/Vol] 0.3 10*3/uL Normal 0.0-0.8 [facility] Comment on above: Performed By: #### E CAPO, CBC, CMP ####[address] Automated eosinophil %Ordere d By: Paramjit Yanes on 06-29-2024 Eosinophils/100 WBC (Bld) 4.2 % Normal . [facility] Comment on above: Performed By: #### E CAPO, CBC, CMP ####[address] Automated eosinophil countOr dered By: Paramjit Yanes on 06-29-2024 Eosinophils (Bld) [#/Vol] 0.3 10*3/uL Normal 0.0-0.45 [facility] Comment on above: Performed By: #### E CAPO, CBC, CMP ####[address] Automated monocyte %Ordered By: Paramjit Yanes on 06-29-2024 Monocytes/100 WBC (Bld) 4.8 % Normal . [facility] Comment on above: Performed By: #### E CAPO, CBC, CMP ####[place] [address] [place] Automated neutrophil %Ordere d By: Paramjit Yanes on 06-29-2024 Neutrophils/100 WBC (Bld) 68.1 % Normal . [facility] Comment on above: Performed By: #### E CAPO, CBC, CMP ####[facility] [id number] Bacteria [Presence] in Urine by AutomatedOrdered By: Paramjit Yanes on 06-29-2024 Bacteria Auto Ql (U) Rare [HPF] None Seen [facility] Bacteria Auto Ql (U) Bacteria [Presence] in Urine by Automated None Seen [facility] Barbiturates [Presence] in U rine by Screen methodOrdered By: Paramjit Yanes on 06-29-2024 Barbiturates Screen Ql (U) Negative Negative [facility] Barbiturates Screen Ql (U) Barbiturates [Presence] in Urine by Screen method Negative [facility] Basophils Auto (Bld) [#/Vol] Ordered By: Paramjit Yanes on 06-29-2024 Basophils (Bld) [#/Vol] Automated basophil count 0.0-0.2 [facility] Basophils/100 WBC Auto (Bld) Ordered By: Paramjit Yanes on 06-29-2024 Basophils/100 WBC (Bld) Automated basophil % . [facility] Benzodiazepines Screen Ql (U )Ordered By: Paramjit Yanes on 06-29-2024 Benzodiazepines Ql (U) Negative Negative [facility] Benzodiazepines Ql (U) Benzodiazepines [ Presence] in Urine by Screen method Negative [facility] Benzoylecgonine [Presence] i n Urine by Screen methodOrdered By: Paramjit Yanes on 06-29-2024 Benzoylecgonine Screen Ql (U) Negative Negative [facility] Benzoylecgonine Screen Ql (U) Benzoylecgonine [Presence] in Urine by Screen method Negative [facility] Bilirubin Test strip Ql (U)O rdered By: Paramjit Yanes on 06-29-2024 Bilirubin Ql (U) Negative Negative [facility] Bilirubin Ql (U) Bilirubin.total [Pre sence] in Urine by Test strip Negative [facility] Bilirubin.total [Mass/volume ] in Serum or PlasmaOrdered By: Paramjit Yanes on 06-29-2024 Bilirubin [Mass/Vol] 0.8 mg/dL Normal 0.3-1.0 [facility] Comment on above: Performed By: #### E CAPO, CBC, CMP ####[facility] [id number] [place] [address] [facility] Bilirubin [Mass/Vol] Bilirubin.total [Mass/volume] in Serum or Plasma 0.3-1.0 [facility] Calcium [Mass/volume] in Ser um or PlasmaOrdered By: Paramjit Ynaes on 06-29-2024 Calcium [Mass/Vol] 10.2 mg/dL Normal 8.6-10.3 [facility] Comment on above: Performed By: #### E CAPO, CBC, CMP ####[facility] [id number] [place] [address] [facility] Calcium [Mass/Vol] Calcium [Mass/volume ] in Serum or Plasma 8.6-10.3 [facility] Cannabinoids [Presence] in U rine by Screen methodOrdered By: Paramjit Yanes on 06-29-2024 Cannabinoids Screen Ql (U) Positive High Negative [facility] Comment on above: These are unconfirme d results and should not be used for legal purposes. Drug Cut-Off Concentration: AMPH 1000 ng/mL VENKATA 200 ng/mL BREANNA 200 ng/mL COCM 300 ng/mL OP 300 ng/mL PCP 25 ng/mL THC 20 ng/mL Cannabinoids Screen Ql (U) Cannabinoids [Presence] in Urine by Screen method High Negative [facility] Comment on above: These are unconfirme d results and should not be used for legal purposes. Drug Cut-Off Concentration: AMPH 1000 ng/mL VENKATA 200 ng/mL BREANNA 200 ng/mL COCM 300 ng/mL OP 300 ng/mL PCP 25 ng/mL THC 20 ng/mL Carbon dioxide, total [Moles /volume] in Serum or PlasmaOrdered By: Paramjit Yanes on 06-29-2024 CO2 [Moles/Vol] 28.6 mmol/L Normal 21.0-31.0 [facility] Comment on above: Performed By: #### E CAPO, CBC, CMP ####[address] CO2 [Moles/Vol] Carbon dioxide, tota l [Moles/volume] in Serum or Plasma 21.0-31.0 [facility] Chloride [Moles/volume] in S isabel or PlasmaOrdered By: Paramjit Yanes on 06-29-2024 Chloride [Moles/Vol] 105 mmol/L Normal 98-107 [facility] Comment on above: Performed By: #### E CAPO, CBC, CMP ####[address] Chloride [Moles/Vol] Chloride [Moles/vol ume] in Serum or Plasma 98-107 [facility] Color Auto (U)Ordered By: Kevin Yanes on 06-29-2024 Color (U) Color of Urine by Auto Yellow [facility] Color of Urine by AutoOrdere d By: Paramjit Yanes on 06-29-2024 Color (U) Yellow Normal Yellow [facility] Comment on above: Order Comment: Name Collection Type:: Clean-Voided Midstream Performed By: #### U HCG, URDS, ADDONUAPLUS ####[address] Complete Blood Count Auto Di ffon 06-29-2024 Mean Corpuscular HGB Conc 34.6 g/dL Normal 32.0-35.0 [facility] Comment on above: Performed By: #### E CAPO, CBC, CMP ####[address] Monocytes/100 WBC (Bld) 17.44 % Normal 0.00-20.00 T cristian [facility] Comment on above: Performed By: #### E CAPO, CBC, CMP ####[address] NRBC% 0.0 /100{WBC} Normal 0-0.5 [facility] Comment on above: Performed By: #### E CAPO, CBC, CMP ####[address] [place] [address] [facility] Comprehensive Metabolic Pane haseeb 06-29-2024 Albumin [Mass/Vol] 5.1 g/dL Normal 3.5-5.7 [facility] Comment on above: Performed By: #### E CAPO, CBC, CMP ####[address] [address] [facility] Creatinine Clr Calc Pharmacy 91.90 Normal [facility] Comment on above: Result Comment: PERF ORMED BY: [facility] [address] [facility] [place] [id number] PATHOLOGIST HAND LEATHER TRIMMER KIERSTEN BYNUM M.D. Performed By: #### E CAPO CBC, CMP ####[place] [id number] [facility] GFR/1.73 sq M.predicted MDRD (S/P/Bld) [Vol rate/Area] mL/min/{1.73_m2} Normal [facility] Comment on above: Performed By: #### E CAPO CBC, CMP ####[place] [id number] [facility] Creatinine [Mass/volume] in Serum or PlasmaOrdered By: Paramjit Yanes on 06-29-2024 Creatinine [Mass/Vol] 0.62 mg/dL Normal 0.60-1.20 [facility] Comment on above: Performed By: #### E CAPO CBC, CMP ####[place] [id number] [facility] Creatinine [Mass/Vol] Creatinine [Mass/v olume] in Serum or Plasma 0.60-1.20 [facility] Dipstick and Microscopicon 1 Bacteria,Urine Rare Normal None Seen [facility] Comment on above: Order Comment: Name Collection Type:: Clean-Voided Midstream Performed By: #### U HCG, URDS, ADDONUAPLUS ####[place] [id number] [facility] Bilirubin,Urine Negative Normal Negative [facility] Comment on above: Order Comment: Name Collection Type:: Clean-Voided Midstream Performed By: #### U HCG, URDS, ADDONUAPLUS ####[address] Glucose Ql (U) Normal Normal Normal [facility] Comment on above: Order Comment: Name Collection Type:: Clean-Voided Midstream Performed By: #### U HCG, URDS, ADDONUAPLUS ####[address] Hyaline Casts,Urine None Normal 0-8 [facility] Comment on above: Order Comment: Name Collection Type:: Clean-Voided Midstream Performed By: #### U HCG, URDS, ADDONUAPLUS ####[address] Mucus,Urine 4+ Critically abnormal [facility] Comment on above: Order Comment: Name Collection Type:: Clean-Voided Midstream Performed By: #### U HCG, URDS, ADDONUAPLUS ####[address] Nitrite,Urine Negative Normal Negative [facility] Comment on above: Order Comment: Name Collection Type:: Clean-Voided Midstream Performed By: #### U HCG, URDS, ADDONUAPLUS ####[address] Occult Blood,Urine Negative Normal Negative [facility] Comment on above: Order Comment: Name Collection Type:: Clean-Voided Midstream Performed By: #### U HCG, URDS, ADDONUAPLUS ####[place] [id number] [facility] RBC,Urine 1-2 Normal 0-4 [facility] Comment on above: Order Comment: Name Collection Type:: Clean-Voided Midstream Performed By: #### U HCG, URDS, ADDONUAPLUS ####[address] Specificy Cove,Urine 1.026 Normal 1.00 1-1.03 0 [facility] Comment on above: Order Comment: Name Collection Type:: Clean-Voided Midstream Performed By: #### U HCG, URDS, ADDONUAPLUS ####[address] Squamous Epithelial Cell,Urine 1-2 Normal 0-2 [facility] Comment on above: Order Comment: Name Collection Type:: Clean-Voided Midstream Performed By: #### U HCG, URDS, ADDONUAPLUS ####[address] Urobilinogen,Urine Normal Normal Normal [facility] Comment on above: Order Comment: Name Collection Type:: Clean-Voided Midstream Performed By: #### U HCG, URDS, ADDONUAPLUS ####[address] WBC,Urine 1-2 Normal 0-4 [facility] Comment on above: Order Comment: Name Collection Type:: Clean-Voided Midstream Performed By: #### U HCG, URDS, ADDONUAPLUS ####[address] Drug Screen,Urineon 06-29-20 24 Amphetamine Screen,Urine Negative Normal Negative [facility] Comment on above: Performed By: #### U HCG, URDS, ADDONUAPLUS ####[address] Barbiturate Screen,Urine Negative Normal Negative [facility] Comment on above: Performed By: #### U HCG, URDS, ADDONUAPLUS ####[address] Benzodiazepines Screen,Urine Negative Normal Negative [facility] Comment on above: Performed By: #### U HCG, URDS, ADDONUAPLUS ####[address] Cannabinoid Screen,Urine Positive High Negative [facility] Comment on above: Result Comment: Thes e are unconfirmed results and should not be used for legal purposes. Drug Cut-Off Concentration: AMPH 1000 ng/mL VENKATA 200 ng/mL BREANNA 200 ng/mL COCM 300 ng/mL OP 300 ng/mL PCP 25 ng/mL THC 20 ng/mL PERFORMED BY: [facility] [address] [place] [address] PATHOLOGIST HAND LEATHER TRIMMER KIERSTEN BYNUM M.D. Performed By: #### U HCG, URDS, ADDONUAPLUS ####[facility] [id number] Cocaine Screen,Urine Negative Normal Negative [facility] Comment on above: Performed By: #### U HCG, URDS, ADDONUAPLUS ####[facility] [id number] Opiate Screen,Urine Negative Normal Negative [facility] Comment on above: Performed By: #### U HCG, URDS, ADDONUAPLUS ####[facility] Phencyclidine Screen,Urine Negative Normal Negative [facility] Comment on above: Performed By: #### U HCG, URDS, ADDONUAPLUS ####[place] [address] [place] [id number] [facility] Eosinophils Auto (Bld) [#/Vo l]Ordered By: Paramjit Yanes on 06-29-2024 Eosinophils (Bld) [#/Vol] Automated eosinophil count 0.0-0.45 [facility] Eosinophils/100 WBC Auto (Bl d)Ordered By: Paramjit Yanes on 06-29-2024 Eosinophils/100 WBC (Bld) Automated eosinophil % . [facility] Epithelial cells.squamous [# /area] in Urine sediment by Automated countOrdered By: Paramjit Yanes on 06-29-2024 Epithelial cells.squamous Auto (Urine sed) [#/Area] 1-2 [HPF] 0-2 [facility] Epithelial cells.squamous Auto (Urine sed) [#/Area] Epithelial cells.squamous [#/area] in Urine sediment by Automated count 0-2 [facility] Erythrocyte distribution wid th Auto (RBC) [Ratio]Ordered By: Paramjit Yanes on 06-29-2024 Erythrocyte distribution width (RBC) [Ratio] Erythrocyte distribution width [Ratio] by Automated count 11.9-15.3 [facility] Erythrocyte distribution wid th [Ratio] by Automated countOrdered By: Paramjit Farzana on 06-29-2024 Erythrocyte distribution width (RBC) [Ratio] 13.0 % Normal 11.9-15.3 [facility] Comment on above: Performed By: #### E CAPO, CBC, CMP ####[facility] [id number] Erythrocytes [#/area] in Uri ne sediment by Automated countOrdered By: Paramjit Yanes on 06-29-2024 RBC Auto (Urine sed) [#/Area] 1-2 [HPF] 0-4 [facility] RBC Auto (Urine sed) [#/Area] Erythrocytes [#/area] in Urine sediment by Automated count 0-4 [facility] Erythrocytes [#/volume] in B lood by Automated countOrdered By: Paramjit Yanes on 06-29-2024 RBC (Bld) [#/Vol] 4.85 10*6/uL Normal 3.60-5.00 [facility] Comment on above: Performed By: #### E CAPO, CBC, CMP ####[address] Ethanol [Mass/volume] in Ser um or PlasmaOrdered By: Paramjit Yanes on 06-29-2024 Ethanol [Mass/Vol] mg/dL Normal [facility] Comment on above: Performed By: #### E CAPO, CBC, CMP ####[address] Ethanol [Mass/Vol] TNP [facility] Comment on above: Test not performed Ethanol [Mass/Vol] Ethanol [Mass/volume ] in Serum or Plasma [facility] Comment on above: Test not performed Ethyl Alcohol Profileon 06-10 Percent Ethanol Not performed Normal [facility] Comment on above: Result Comment: PERF ORMED BY: [facility] [address] [place] [address] PATHOLOGIST HAND LEATHER TRIMMER KIERSTEN BYNUM M.D. Performed By: #### E CAPO, CBC, CMP ####[facility] [id number] [place] [address] [facility] Globulin Calc (S) [Mass/Vol] Ordered By: Paramjit Yanes on 06-29-2024 Globulin (S) [Mass/Vol] Serum globulin m easurement by calculation (mass/volume) [facility] Glucose [Mass/volume] in Ser um or PlasmaOrdered By: Paramjit Yanes on 06-29-2024 Glucose [Mass/Vol] 86 mg/dL Normal 70-100 [facility] Comment on above: ADA recommended refe rence rangeRandom Glucose Reference Range is dependent on time and content of last meal. Glucose of more than 200 mg/dL in a nonstressed, ambulatory subject supports the diagnosis of Diabetes Mellitus. Result Comment: [place] Glucose Reference Range is dependent on time and content of last meal. Glucose of more than 200 mg/dL in a nonstressed, ambulatory subject supports the diagnosis of Diabetes Mellitus. ADA recommended reference range Performed By: #### E CAPO, CBC, CMP ####[facility] [id number] [place] [address] [facility] Glucose [Mass/Vol] Glucose [Mass/volume ] in Serum or Plasma 70-100 [facility] Comment on above: ADA recommended refe rence rangeRandom Glucose Reference Range is dependent on time and content of last meal. Glucose of more than 200 mg/dL in a nonstressed, ambulatory subject supports the diagnosis of Diabetes Mellitus. Glucose [Mass/volume] in Uri ne by Test stripOrdered By: Paramjit Yanes on 06-29-2024 Glucose Test strip (U) [Mass/Vol] Normal mg/dL Normal [facility] Glucose Test strip (U) [Mass/Vol] Glucose [Mass/volume] in Urine by Test strip Normal [facility] HCG ( test) IA.rapi d Ql (U)Ordered By: Paramjit Yanes on 06-29-2024 HCG ( test) Ql (U) Negative [facility] HCG ( test) Ql (U) Urine human chorionic gonadotropin (hCG) detection by immunoassay [facility] HCG,Urineon 06-29-2024 Beta HCG ( test) Ql (U) Negative Normal [facility] Comment on above: Order Comment: Name Collection Type:: Clean-Voided Midstream Result Comment: PERF ORMED BY: [facility] [address] [place] [address] PATHOLOGIST HAND LEATHER TRIMMER KIERSTEN BYNUM M.D. Performed By: #### U HCG, URDS, ADDONUAPLUS ####[address] Hematocrit Auto (Bld) [Volum e fraction]Ordered By: Paramjit Yanes on 06-29-2024 Hematocrit (Bld) [Volume fraction] Hematocrit [Volume Fraction] of Blood by Automated count 34.0-46.4 [facility] Hematocrit [Volume Fraction] of Blood by Automated countOrdered By: Paramjit Yanes on 06-29-2024 Hematocrit (Bld) [Volume fraction] 42.2 % Normal 34.0-46.4 [facility] Comment on above: Performed By: #### E CAPO, CBC, CMP ####[address] Hemoglobin Test strip Ql (U) Ordered By: Paramjit Yanes on 06-29-2024 Hemoglobin Ql (U) Negative Negative [facility] Hemoglobin Ql (U) Hemoglobin [Presence ] in Urine by Test strip Negative [facility] Hemoglobin [Mass/volume] in BloodOrdered By: Paramjit Yanes on 06-29-2024 Hemoglobin (Bld) [Mass/Vol] 14.6 g/dL Normal 11.8-15.4 [facility] Comment on above: Performed By: #### E CAPO, CBC, CMP ####[address] Hemoglobin (Bld) [Mass/Vol] Hemoglobin [Mass/volume] in Blood 11.8-15.4 [facility] Hyaline casts [#/area] in Ur ine sediment by Automated countOrdered By: Paramjit Yanes on 06-29-2024 Hyaline casts Auto (Urine sed) [#/Area] None [LPF] 0-8 [facility] Hyaline casts Auto (Urine sed) [#/Area] Hyaline casts [#/area] in Urine sediment by Automated count 0-8 [facility] Ketones Test strip Ql (U)Ord ered By: Paramjit Yanes on 06-29-2024 Ketones Ql (U) Ketones [Presence] i n Urine by Test strip Negative [facility] Ketones [Presence] in Urine by Test stripOrdered By: Paramjit Yanes on 06-29-2024 Ketones Ql (U) Negative Normal Negative [facility] Comment on above: Order Comment: Name Collection Type:: Clean-Voided Midstream Performed By: #### U HCG, URDS, ADDONUAPLUS ####[facility] [id number] Leukocyte esterase [Presence ] in Urine by Test stripOrdered By: Paramjit Yanes on 06-29-2024 Leukocyte esterase Test strip Ql (U) Negative Normal Negative [facility] Comment on above: Order Comment: Name Collection Type:: Clean-Voided Midstream Performed By: #### U HCG, URDS, ADDONUAPLUS ####[facility] [id number] [place] [address] Leukocyte esterase Test strip Ql (U) Leukocyte esterase [Presence] in Urine by Test strip Negative [facility] Leukocytes [#/area] in Urine sediment by Automated countOrdered By: Paramjit Yanes on 06-29-2024 WBC Auto (Urine sed) [#/Area] 1-2 [HPF] 0-4 [facility] WBC Auto (Urine sed) [#/Area] Leukocytes [#/area] in Urine sediment by Automated count 0-4 [facility] Leukocytes [#/volume] correc michael for nucleated erythrocytes in Blood by Automated counOrdered By: Paramijt Yanes on 06-29-2024 WBC corrected for nucl RBC Auto (Bld) [#/Vol] 7.3 10*3/uL 3.8-11.6 [facility] WBC corrected for nucl RBC Auto (Bld) [#/Vol] Leukocytes [#/volume] corrected for nucleated erythrocytes in Blood by Automated coun 3.8-11.6 [facility] Leukocytes [#/volume] in Blo od by Automated countOrdered By: Paramjit Yanes on 06-29-2024 WBC (Bld) [#/Vol] 7.3 10*3/uL Normal 3.8-11.6 [facility] Comment on above: Performed By: #### E CAPO, CBC, CMP ####[address] Lymphocytes Auto (Bld) [#/Vo l]Ordered By: Paramjit Yanes on 06-29-2024 Lymphocytes (Bld) [#/Vol] Lymphocytes [#/volume] in Blood by Automated count 1.00-4.8 [facility] Lymphocytes [#/volume] in Bl ood by Automated countOrdered By: Paramjit Yanes on 06-29-2024 Lymphocytes (Bld) [#/Vol] 1.6 10*3/uL Normal 1.00-4.8 [facility] Comment on above: Performed By: #### E CAPO, CBC, CMP ####[address] Lymphocytes/100 WBC Auto (Bl d)Ordered By: Paramjit Yanes on 06-29-2024 Lymphocytes/100 WBC (Bld) Lymphocytes/100 leukocytes in Blood by Automated count . [facility] Lymphocytes/100 leukocytes i n Blood by Automated countOrdered By: Paramjit Yanes on 06-29-2024 Lymphocytes/100 WBC (Bld) 22.3 % Normal . [facility] Comment on above: Performed By: #### E CAPO, CBC, CMP ####[address] MCH Auto (RBC) [Entitic mass ]Ordered By: Paramjit Yanes on 06-29-2024 MCH (RBC) [Entitic mass] MCH [Entitic mass] by Automated count 24.7-34.3 [facility] MCH [Entitic mass] by Automa michael countOrdered By: Paramjit Yanes on 06-29-2024 MCH (RBC) [Entitic mass] 30.1 pg Normal 24.7-34.3 [facility] Comment on above: Performed By: #### E CAPO, CBC, CMP ####[address] MCHC Auto (RBC) [Mass/Vol]Or dered By: Paramjit Yanes on 06-29-2024 MCHC (RBC) [Mass/Vol] 34.6 g/dL 32.0-35.0 [facility] MCHC (RBC) [Mass/Vol] MCHC [Mass/volume] by Automated count 32.0-35.0 [facility] MCV Auto (RBC) [Entitic vol] Ordered By: Paramjit Yanes on 06-29-2024 MCV (RBC) [Entitic vol] MCV [Entitic vol ume] by Automated count 80-100 [facility] MCV [Entitic volume] by Auto mated countOrdered By: Paramjit Yanes on 06-29-2024 MCV (RBC) [Entitic vol] 87.2 fL Normal 80-100 [facility] Comment on above: Performed By: #### E CAPO, CBC, CMP ####[facility] [id number] [place] [id number] [facility] Monocyte distribution width [Entitic volume] in Blood by AutomatedOrdered By: Paramjit Yanes on 06-29-2024 Monocyte distribution width Auto (Bld) [Entitic vol] 17.44 % 0.00-20.00 [facility] Monocyte distribution width Auto (Bld) [Entitic vol] Monocyte distribution width [Entitic volume] in Blood by Automated 0.00-20.00 [facility] Monocytes Auto (Bld) [#/Vol] Ordered By: Paramjit Yanes on 06-29-2024 Monocytes (Bld) [#/Vol] Automated blood monocyte count 0.0-0.8 [facility] Monocytes/100 WBC Auto (Bld) Ordered By: Paramjit Yanes on 06-29-2024 Monocytes/100 WBC (Bld) Automated monocyte % . [facility] Mucus [Presence] in Urine by AutomatedOrdered By: Paramjit Yanes on 06-29-2024 Mucus Auto Ql (U) 4+ [LPF] Abnormal [facility] Mucus Auto Ql (U) Mucus [Presence] in Urine by Automated Abnormal [facility] Neutrophils Auto (Bld) [#/Vo l]Ordered By: Paramjit Yanes on 06-29-2024 Neutrophils (Bld) [#/Vol] Neutrophils [#/volume] in Blood by Automated count 1.8-7.7 [facility] Neutrophils [#/volume] in Bl ood by Automated countOrdered By: Paramjit Yanes on 06-29-2024 Neutrophils (Bld) [#/Vol] 5.0 10*3/uL Normal 1.8-7.7 [facility] Comment on above: Performed By: #### E CAPO, CBC, CMP ####[facility] [id number] [place] [address] [facility] Neutrophils/100 WBC Auto (Bl d)Ordered By: Paramjit Yanes on 06-29-2024 Neutrophils/100 WBC (Bld) Automated neutrophil % . [facility] Nitrite Test strip Ql (U)Ord ered By: Paramjit Yanes on 06-29-2024 Nitrite Ql (U) Negative Negative [facility] Nitrite Ql (U) Nitrite [Presence] i n Urine by Test strip Negative [facility] No Panel InformationOrdered By: Paramjit Yanes on 06-29-2024 Estimated GFR (CKD-EPI) > 60.0 mL/Min [facility] Creatinine Clearance (Chem 91.90 [facility] Nucleated erythrocytes [Pres ence] in Blood by Automated countOrdered By: Paramjit Yanes on 06-29-2024 Nucleated RBC Auto Ql (Bld) 0.0 /100{WBC} 0-0.5 [facility] Nucleated RBC Auto Ql (Bld) Nucleated erythrocytes [Presence] in Blood by Automated count 0-0.5 [facility] Opiates [Presence] in Urine by Screen methodOrdered By: Paramjit Yanes on 06-29-2024 Opiates Screen Ql (U) Negative Negative [facility] Opiates Screen Ql (U) Opiates [Presence] in Urine by Screen method Negative [facility] Phencyclidine Screen Ql (U)O rdered By: Paramjit Yanes on 06-29-2024 Phencyclidine Ql (U) Negative Negative [facility] Phencyclidine Ql (U) Phencyclidine [Pres ence] in Urine by Screen method Negative [facility] Platelet mean volume Auto (B ld) [Entitic vol]Ordered By: Paramjit Yanes on 06-29-2024 Platelet mean volume (Bld) [Entitic vol] Platelet mean volume [Entitic volume] in Blood by Automated count 6.3-10.7 [facility] Platelet mean volume [Entiti c volume] in Blood by Automated countOrdered By: Paramjit Yanes on 06-29-2024 Platelet mean volume (Bld) [Entitic vol] 7.6 fL Normal 6.3-10.7 [facility] Comment on above: Performed By: #### E CAPO, CBC, CMP ####[place] [id number] [facility] Platelets Auto (Bld) [#/Vol] Ordered By: Paramjit Yanes on 06-29-2024 Platelets (Bld) [#/Vol] Platelets [#/vol ume] in Blood by Automated count 150-450 [facility] Platelets [#/volume] in Bloo d by Automated countOrdered By: Paramjit Yanes on 06-29-2024 Platelets (Bld) [#/Vol] 278 10*3/uL Normal 150-450 [facility] Comment on above: Performed By: #### E CAPO, CBC, CMP ####[place] [id number] [place] Potassium [Moles/volume] in Serum or PlasmaOrdered By: Paramjit Yanes on 06-29-2024 Potassium [Moles/Vol] 4.1 mmol/L Normal 3.5-5.1 [facility] Comment on above: Performed By: #### E CAPO, CBC, CMP ####[place] [id number] [place] Potassium [Moles/Vol] Potassium [Moles/v olume] in Serum or Plasma 3.5-5.1 [facility] Protein Test strip (U) [Mass /Vol]Ordered By: Paramjit Yanes on 06-29-2024 Protein (U) [Mass/Vol] Protein [Mass/vol ume] in Urine by Test strip High Negative [facility] Protein [Mass/volume] in Ser um or PlasmaOrdered By: Paramjit Yanes on 06-29-2024 Protein [Mass/Vol] 8.1 g/dL Normal 6.4-8.9 [facility] Comment on above: Performed By: #### E CAPO, CBC, CMP ####[address] Protein [Mass/Vol] Protein [Mass/volume ] in Serum or Plasma 6.4-8.9 [facility] Protein [Mass/volume] in Uri ne by Test stripOrdered By: Paramjit Yanes on 06-29-2024 Protein (U) [Mass/Vol] 20 mg/dL High Negative [facility] Comment on above: Order Comment: Name Collection Type:: Clean-Voided Midstream Performed By: #### U HCG, URDS, ADDONUAPLUS ####[address] RBC Auto (Bld) [#/Vol]Ordere d By: Paramjit Yanes on 06-29-2024 RBC (Bld) [#/Vol] Erythrocytes [#/volu me] in Blood by Automated count 3.60-5.00 [facility] Serum globulin measurement b y calculation (mass/volume)Ordered By: Paramjit Yanes on 06-29-2024 Globulin (S) [Mass/Vol] 3.0 g/dL Normal [facility] Comment on above: Performed By: #### E CAPO, CBC, CMP ####[address] Serum or plasma albumin/glob ulin mass ratioOrdered By: Paramjit Yanes on 06-29-2024 Albumin/Globulin [Mass ratio] 1.7 {ratio} Normal [facility] Comment on above: Performed By: #### E CAPO, CBC, CMP ####[address] Albumin/Globulin [Mass ratio] Serum or plasma albumin/globulin mass ratio [facility] Serum or plasma anion gap de terminationOrdered By: Paramjit Yanes on 06-29-2024 Anion gap [Moles/Vol] 8.5 mmol/L Normal 6.0-15.0 [facility] Comment on above: Performed By: #### E CAPO CBC, CMP ####[place] [id number] [address] Anion gap [Moles/Vol] Serum or plasma an ion gap determination 6.0-15.0 [facility] Sodium [Moles/volume] in Ser um or PlasmaOrdered By: Paramjit Yanes on 06-29-2024 Sodium [Moles/Vol] 138 mmol/L Normal 136-145 [facility] Comment on above: Performed By: #### E CAPO CBC, CMP ####[place] [id number] [facility] Sodium [Moles/Vol] Sodium [Moles/volume ] in Serum or Plasma 136-145 [facility] Specific gravity Test strip (U) [Rel density]Ordered By: Paramjit Yanes on 06-29-2024 Specific gravity (U) [Rel density] 1.026 1.001-1.03 0 [facility] Specific gravity (U) [Rel density] Specific gravity of Urine by Test strip 1.001-1.03 0 [facility] Urea nitrogen [Mass/volume] in Serum or PlasmaOrdered By: Paramjit Yaens on 06-29-2024 Urea nitrogen [Mass/Vol] 9 mg/dL Normal 04-02 [facility] Comment on above: Performed By: #### E CAPO CBC, CMP ####[place] [id number] [facility] Urea nitrogen [Mass/Vol] Urea nitrogen [Mass/volume] in Serum or Plasma 04-02 [facility] Urine appearanceOrdered By: Paramjit Yanes on 06-29-2024 Appearance (U) Clear Normal Clear [facility] Comment on above: Order Comment: Name Collection Type:: Clean-Voided Midstream Performed By: #### U HCG, URDS, ADDONUAPLUS ####[address] Urobilinogen Test strip (U) [Mass/Vol]Ordered By: Paramjit Yanes on 06-29-2024 Urobilinogen (U) [Mass/Vol] Normal mg/dL Normal [facility] Urobilinogen (U) [Mass/Vol] Urobilinogen [Mass/volume] in Urine by Test strip Normal [facility] WBC Auto (Bld) [#/Vol]Ordere d By: Paramjit Yanes on 06-29-2024 WBC (Bld) [#/Vol] Leukocytes [#/volume ] in Blood by Automated count 3.8-11.6 [facility] pH Test strip (U)Ordered By: Paramjit Yanes on 06-29-2024 pH (U) pH of Urine by Test strip 5.0-9.0 [facility] pH of Urine by Test stripOrd ered By: Paramjit Yanes on 06-29-2024 pH (U) 6.5 [pH] Normal 5.0-9.0 [facility] Comment on above: Order Comment: Name Collection Type:: Clean-Voided Midstream Performed By: #### U HCG, URDS, ADDONUAPLUS ####[place] [id number] [address] Alanine aminotransferase [En zymatic activity/volume] in Serum or PlasmaOrdered By: Derek Phipps on 04-17-2024 ALT [Catalytic activity/Vol] 8 U/L Normal 7-52 [facility] Comment on above: Performed By: #### H EPATIC, LIPASE, CBC, BMP ####[address] Albumin [Mass/volume] in Ser um or Plasma by Bromocresol green (BCG) dye binding methoOrdered By: Derek Phipps on 04-17-2024 Albumin BCG dye [Mass/Vol] 4.7 g/dL 3.5-5.7 [facility] Alkaline phosphatase [Enzyma tic activity/volume] in Serum or PlasmaOrdered By: Derek Phipps on 04-17-2024 ALP [Catalytic activity/Vol] 40 U/L Normal 34-104 [facility] Comment on above: Performed By: #### H EPATIC, LIPASE, CBC, BMP ####[address] Amphetamine Screen Ql (U)Ord ered By: Derek Phipps on 04-17-2024 Amphetamines Ql (U) Negative Negative [facility] Aspartate aminotransferase [ Enzymatic activity/volume] in Serum or PlasmaOrdered By: Derek Phipps on 04-17-2024 AST [Catalytic activity/Vol] 15 U/L Normal 13-39 [facility] Comment on above: Performed By: #### H EPATIC, LIPASE, CBC, BMP ####[address] Automated basophil %Ordered By: Derek Phipps on 04-17-2024 Basophils/100 WBC (Bld) 0.3 % Normal . [facility] Comment on above: Performed By: #### H EPATIC, LIPASE, CBC, BMP ####[address] Automated basophil countOrde red By: Derek Phipps on 04-17-2024 Basophils (Bld) [#/Vol] 0.0 10*3/uL Normal 0.0-0.2 [facility] Comment on above: Result Comment: PERF ORMED BY: [facility] [address] [place] [address] PATHOLOGIST [employer]IM[employer] KIERSTEN BYNUM M.D. Performed By: #### H EPATIC, LIPASE, CBC, BMP ####[address] Automated blood monocyte cou ntOrdered By: Derek Phipps on 04-17-2024 Monocytes (Bld) [#/Vol] 0.3 10*3/uL Normal 0.0-0.8 [facility] Comment on above: Performed By: #### H EPATIC, LIPASE, CBC, BMP ####[address] Automated eosinophil %Ordere d By: Derek Phipps on 04-17-2024 Eosinophils/100 WBC (Bld) 1.8 % Normal . [facility] Comment on above: Performed By: #### H EPATIC, LIPASE, CBC, BMP ####[address] Automated eosinophil countOr dered By: Derek Phipps on 04-17-2024 Eosinophils (Bld) [#/Vol] 0.2 10*3/uL Normal 0.0-0.45 [facility] Comment on above: Performed By: #### H EPATIC, LIPASE, CBC, BMP ####[facility] [id number] Automated monocyte %Ordered By: Derek Phipps on 04-17-2024 Monocytes/100 WBC (Bld) 3.4 % Normal . [facility] Comment on above: Performed By: #### H EPATIC, LIPASE, CBC, BMP ####[address] Automated neutrophil %Ordere d By: Derek Phipps on 04-17-2024 Neutrophils/100 WBC (Bld) 83.6 % Normal . [facility] Comment on above: Performed By: #### H EPATIC, LIPASE, CBC, BMP ####[address] Bacteria [Presence] in Urine by AutomatedOrdered By: Derek Phipps on 04-17-2024 Bacteria Auto Ql (U) None seen [HPF] None Seen [facility] Barbiturates [Presence] in U rine by Screen methodOrdered By: Derek Phipps on 04-17-2024 Barbiturates Screen Ql (U) Negative Negative [facility] Basic Metabolic Panelon 080 Creatinine [facility] 94.59 Normal [facility] Comment on above: Performed By: #### H EPATIC, LIPASE, CBC, BMP ####[address] GFR/1.73 sq M.predicted MDRD (S/P/Bld) [Vol rate/Area] mL/min/{1.73_m2} Normal [facility] Comment on above: Performed By: #### H EPATIC, LIPASE, CBC, BMP ####[address] Benzodiazepines Screen Ql (U )Ordered By: Derek Phipps on 04-17-2024 Benzodiazepines Ql (U) Negative Negative [facility] Benzoylecgonine [Presence] i n Urine by Screen methodOrdered By: Derek Phipps on 04-17-2024 Benzoylecgonine Screen Ql (U) Negative Negative [facility] Bilirubin Test strip Ql (U)O rdered By: Derek Phipps on 04-17-2024 Bilirubin Ql (U) Negative Negative [facility] Bilirubin.direct [Mass/volum e] in Serum or PlasmaOrdered By: Derek Phipps on 04-17-2024 Bilirubin.direct [Mass/Vol] 0.10 mg/dL 0.03-0.18 [facility] Bilirubin.total [Mass/volume ] in Serum or PlasmaOrdered By: Derek Phipps on 04-17-2024 Bilirubin [Mass/Vol] 0.6 mg/dL Normal 0.3-1.0 [facility] Comment on above: Performed By: #### H EPATIC, LIPASE, CBC, BMP ####[facility] [id number] Calcium [Mass/volume] in Ser um or PlasmaOrdered By: Derek Phipps on 04-17-2024 Calcium [Mass/Vol] 9.5 mg/dL Normal 8.6-10.3 [facility] Comment on above: Performed By: #### H EPATIC, LIPASE, CBC, BMP ####[facility] [id number] [place] [address] [facility] Cannabinoids [Presence] in U rine by Screen methodOrdered By: Derek Phipps on 04-17-2024 Cannabinoids Screen Ql (U) Positive High Negative [facility] Comment on above: These are unconfirme d results and should not be used for legal purposes. Drug Cut-Off Concentration: AMPH 1000 ng/mL VENKATA 200 ng/mL BREANNA 200 ng/mL COCM 300 ng/mL OP 300 ng/mL PCP 25 ng/mL THC 20 ng/mL Carbon dioxide, total [Moles /volume] in Serum or PlasmaOrdered By: Derek Phipps on 04-17-2024 CO2 [Moles/Vol] 29.5 mmol/L Normal 21.0-31.0 [facility] Comment on above: Performed By: #### H EPATIC, LIPASE, CBC, BMP ####[place] [id number] [address] Chloride [Moles/volume] in S isabel or PlasmaOrdered By: Derek Phipps on 04-17-2024 Chloride [Moles/Vol] 105 mmol/L Normal 98-107 [facility] Comment on above: Performed By: #### H EPATIC, LIPASE, CBC, BMP ####[address] Color of Urine by AutoOrdere d By: Derek Phipps on 04-17-2024 Color (U) Yellow Normal Yellow [facility] Comment on above: Order Comment: Name Collection Type:: Clean-Voided Midstream Performed By: #### U HCG, ADDONUAPLUS, URDS #### [facility] [address] Complete Blood Count Auto Di ffon 04-17-2024 Mean Corpuscular HGB Conc 33.9 g/dL Normal 32.0-35.0 [facility] Comment on above: Performed By: #### H EPATIC, LIPASE, CBC, BMP ####[address] Monocytes/100 WBC (Bld) 19.53 % Normal 0.00-20.00 [facility] Comment on above: Performed By: #### H EPATIC, LIPASE, CBC, BMP ####[address] NRBC% 0.0 /100{WBC} Normal 0-0.5 [facility] Comment on above: Performed By: #### H EPATIC, LIPASE, CBC, BMP ####[place] [id number] [address] Creatinine [Mass/volume] in Serum or PlasmaOrdered By: Derek Phipps on 04-17-2024 Creatinine [Mass/Vol] 0.62 mg/dL Normal 0.60-1.20 [facility] Comment on above: Performed By: #### H EPATIC, LIPASE, CBC, BMP ####[facility] [id number] Dipstick and Microscopicon 0 04-17-2024 Bacteria,Urine None Seen Normal None Seen [facility] Comment on above: Order Comment: Name Collection Type:: Clean-Voided Midstream Performed By: #### U HCG, ADDONUAPLUS, URDS #### [facility] [address] Bilirubin,Urine Negative Normal Negative [facility] Comment on above: Order Comment: Name Collection Type:: Clean-Voided Midstream Performed By: #### U HCG, ADDONUAPLUS, URDS #### [facility] [address] Glucose Ql (U) Normal Normal Normal [facility] Comment on above: Order Comment: Name Collection Type:: Clean-Voided Midstream Performed By: #### U HCG, ADDONUAPLUS, URDS #### [facility] [address] Hyaline Casts,Urine None Normal 0-8 [facility] Comment on above: Order Comment: Name Collection Type:: Clean-Voided Midstream Performed By: #### U HCG, ADDONUAPLUS, URDS #### [facility] [address] Mucus,Urine 4+ Critically abnormal [facility] Comment on above: Order Comment: Name Collection Type:: Clean-Voided Midstream Performed By: #### U HCG, ADDONUAPLUS, URDS #### [facility] [address] Nitrite,Urine Negative Normal Negative [facility] Comment on above: Order Comment: Name Collection Type:: Clean-Voided Midstream Performed By: #### U HCG, ADDONUAPLUS, URDS #### [facility] [address] Occult Blood,Urine Negative Normal Negative [facility] Comment on above: Order Comment: Name Collection Type:: Clean-Voided Midstream Performed By: #### U HCG, ADDONUAPLUS, URDS #### [place] [address] [place] Protein,Urine Trace High Negative [facility] Comment on above: Order Comment: Name Collection Type:: Clean-Voided Midstream Performed By: #### U HCG, ADDONUAPLUS, URDS #### [address] RBC,Urine 1-2 Normal 0-4 [facility] Comment on above: Order Comment: Name Collection Type:: Clean-Voided Midstream Performed By: #### U HCG, ADDONUAPLUS, URDS #### [address] Specificy [place],Urine 1.020 Normal 1.00 1-1.03 0 [facility] Comment on above: Order Comment: Name Collection Type:: Clean-Voided Midstream Performed By: #### U HCG, ADDONUAPLUS, URDS #### [address] Squamous Epithelial Cell,Urine 3-4 High 0-2 [facility] Comment on above: Order Comment: Name Collection Type:: Clean-Voided Midstream Performed By: #### U HCG, ADDONUAPLUS, URDS #### [address] Urobilinogen,Urine Normal Normal Normal [facility] Comment on above: Order Comment: Name Collection Type:: Clean-Voided Midstream Performed By: #### U HCG, ADDONUAPLUS, URDS #### [address] WBC,Urine 1-2 Normal 0-4 [facility] Comment on above: Order Comment: Name Collection Type:: Clean-Voided Midstream Performed By: #### U HCG, ADDONUAPLUS, URDS #### [place] [address] [place] Drug Screen,Urineon 04-17-20 24 Amphetamine Screen,Urine Negative Normal Negative [facility] Comment on above: Performed By: #### U HCG, ADDONUAPLUS, URDS #### [address] Barbiturate Screen,Urine Negative Normal Negative [facility] Comment on above: Performed By: #### U HCG, ADDONUAPLUS, URDS #### [address] Benzodiazepines Screen,Urine Negative Normal Negative [facility] Comment on above: Performed By: #### U HCG, ADDONUAPLUS, URDS #### [address] Cannabinoid Screen,Urine Positive High Negative [facility] Comment on above: Result Comment: Thes e are unconfirmed results and should not be used for legal purposes. Drug Cut-Off Concentration: AMPH 1000 ng/mL VENKATA 200 ng/mL BREANNA 200 ng/mL COCM 300 ng/mL OP 300 ng/mL PCP 25 ng/mL THC 20 ng/mL PERFORMED BY: [place] [address] PATHOLOGIST HAND LEATHER TRIMMER KIERSTEN BYNUM M.D. Performed By: #### U HCG, ADDONUAPLUS, URDS #### [address] Cocaine Screen,Urine Negative Normal Negative [facility] Comment on above: Performed By: #### U HCG, ADDONUAPLUS, URDS #### [address] Opiate Screen,Urine Negative Normal Negative [facility] Comment on above: Performed By: #### U HCG, ADDONUAPLUS, URDS #### [place] [address] [place] Phencyclidine Screen,Urine Negative Normal Negative [facility] Comment on above: Performed By: #### U HCG, ADDONUAPLUS, URDS #### [place] [address] [place] ECG 12 lead ECGon 04-17-2024 ECG 12 lead ECG [facility] [place] [address] [place] [address] Electrocardiograph Report Signed Patient: Dawn Major MR#: [id number] : 2000 Acct:[id number] Age/Sex: 24 / F ADM Date: 04/17/24 Loc: ER Room: Type: [facility] ER Attending Dr: Ordering Provider: Derek Phipps [...] Anterior leads Confirmed by Adilia Jeronimo MD ([id number]) on 04/17/2024 6:03:08 PM Referred By: Electronically Signed By: Adilia Jeronimo MD Transcribed By: MUS Signed By Adilia Jeronimo MD 06/02 1806 Normal [facility] Epithelial cells.squamous [# /area] in Urine sediment by Automated countOrdered By: Derek Phipps on 04-17-2024 Epithelial cells.squamous Auto (Urine sed) [#/Area] 3-4 [HPF] High 0-2 [facility] Erythrocyte distribution wid th [Ratio] by Automated countOrdered By: Derek Phipps on 04-17-2024 Erythrocyte distribution width (RBC) [Ratio] 13.0 % Normal 11.9-15.3 [facility] Comment on above: Performed By: #### H EPATIC, LIPASE, CBC, BMP ####[facility] [id number] [place] [address] [facility] Erythrocytes [#/area] in Uri ne sediment by Automated countOrdered By: Derek Phipps on 04-17-2024 RBC Auto (Urine sed) [#/Area] 1-2 [HPF] 0-4 [facility] Erythrocytes [#/volume] in B lood by Automated countOrdered By: Derek Phipps on 04-17-2024 RBC (Bld) [#/Vol] 4.66 10*6/uL Normal 3.60-5.00 [facility] Comment on above: Performed By: #### H EPATIC, LIPASE, CBC, BMP ####[facility] [id number] [place] [id number] [facility] Glucose [Mass/volume] in Ser um or PlasmaOrdered By: Derek Phipps on 04-17-2024 Glucose [Mass/Vol] 95 mg/dL Normal 70-100 [facility] Comment on above: ADA recommended refe rence rangeRandom Glucose Reference Range is dependent on time and content of last meal. Glucose of more than 200 mg/dL in a nonstressed, ambulatory subject supports the diagnosis of Diabetes Mellitus. Result Comment: [place] om Glucose Reference Range is dependent on time and content of last meal. Glucose of more than 200 mg/dL in a nonstressed, ambulatory subject supports the diagnosis of Diabetes Mellitus. ADA recommended reference range Performed By: #### H EPATIC, LIPASE, CBC, BMP ####[facility] [id number] [place] [id number] [facility] Glucose [Mass/volume] in Uri ne by Test stripOrdered By: Derek Phipps on 04-17-2024 Glucose Test strip (U) [Mass/Vol] Normal mg/dL Normal [facility] HCG ( test) IA.rapi d Ql (U)Ordered By: Derek Phipps on 04-17-2024 HCG ( test) Ql (U) Negative [facility] HCG,Urineon 04-17-2024 Beta HCG ( test) Ql (U) Negative Normal [facility] Comment on above: Order Comment: Name Collection Type:: Clean-Voided Midstream Result Comment: PERF ORMED BY: [facility] [address] [place] [address] PATHOLOGIST HAND LEATHER TRIM[employer] KIERSTEN BYNUM M.D. Performed By: #### U HCG, ADDONUAPLUS, URDS #### [facility] [address] [place] [id number] [facility] Hematocrit [Volume Fraction] of Blood by Automated countOrdered By: Derek Phipps on 04-17-2024 Hematocrit (Bld) [Volume fraction] 40.8 % Normal 34.0-46.4 [facility] Comment on above: Performed By: #### H EPATIC, LIPASE, CBC, BMP ####[place] [id number] Hemoglobin Test strip Ql (U) Ordered By: Derek Phipps on 04-17-2024 Hemoglobin Ql (U) Negative Negative [facility] Hemoglobin [Mass/volume] in BloodOrdered By: Derek Phipps on 04-17-2024 Hemoglobin (Bld) [Mass/Vol] 13.8 g/dL Normal 11.8-15.4 [facility] Comment on above: Performed By: #### H EPATIC, LIPASE, CBC, BMP ####[place] [id number] Hepatic Panelon 04-17-2024 Albumin [Mass/Vol] 4.7 g/dL Normal 3.5-5.7 [facility] Comment on above: Performed By: #### H EPATIC, LIPASE, CBC, BMP ####[address] Bilirubin,Indirect 0.5 mg/dL Normal [facility] Comment on above: Performed By: #### H EPATIC, LIPASE, CBC, BMP ####[address] Bilirubin.indirect [Mass/Vol] 0.10 mg/dL Normal 0.03-0.18 [facility] Comment on above: Performed By: #### H EPATIC, LIPASE, CBC, BMP ####[address] Hyaline casts [#/area] in Ur ine sediment by Automated countOrdered By: Derek Phipps on 04-17-2024 Hyaline casts Auto (Urine sed) [#/Area] None [LPF] 0-8 [facility] Ketones [Presence] in Urine by Test stripOrdered By: Derek Phipps on 04-17-2024 Ketones Ql (U) Negative Normal Negative [facility] Comment on above: Order Comment: Name Collection Type:: Clean-Voided Midstream Performed By: #### U HCG, ADDONUAPLUS, URDS #### [facility] [address] Leukocyte esterase [Presence ] in Urine by Test stripOrdered By: Derek Phipps on 04-17-2024 Leukocyte esterase Test strip Ql (U) Negative Normal Negative [facility] Comment on above: Order Comment: Name Collection Type:: Clean-Voided Midstream Performed By: #### U HCG, ADDONUAPLUS, URDS #### [facility] [address] [place] [address] [place] Leukocytes [#/area] in Urine sediment by Automated countOrdered By: Derek Phipps on 04-17-2024 WBC Auto (Urine sed) [#/Area] 1-2 [HPF] 0-4 [facility] Leukocytes [#/volume] correc michael for nucleated erythrocytes in Blood by Automated counOrdered By: Derek Phipps on 04-17-2024 WBC corrected for nucl RBC Auto (Bld) [#/Vol] 8.7 10*3/uL 3.8-11.6 [facility] Leukocytes [#/volume] in Blo od by Automated countOrdered By: Derek Phipps on 04-17-2024 WBC (Bld) [#/Vol] 8.7 10*3/uL Normal 3.8-11.6 [facility] Comment on above: Performed By: #### H EPATIC, LIPASE, CBC, BMP ####[facility] [id number] Lipase [Enzymatic activity/v olume] in Serum or PlasmaOrdered By: Derek Phipps on 04-17-2024 Lipase [Catalytic activity/Vol] 20.0 U/L Normal 11.0-82.0 [facility] Comment on above: Result Comment: PERF ORMED BY: [facility] [address] [place] [address] PATHOLOGIST HAND LEATHER TRIMMER KIERSTEN BYNUM M.D. Performed By: #### H EPATIC, LIPASE, CBC, BMP ####[facility] [id number] [place] [address] [place] Lymphocytes [#/volume] in Bl ood by Automated countOrdered By: Derek Phipps on 04-17-2024 Lymphocytes (Bld) [#/Vol] 0.9 10*3/uL Low 1.00-4.8 [facility] Comment on above: Performed By: #### H EPATIC, LIPASE, CBC, BMP ####[place] [id number] [address] Lymphocytes/100 leukocytes i n Blood by Automated countOrdered By: Derek Phipps on 04-17-2024 Lymphocytes/100 WBC (Bld) 10.9 % Normal . [facility] Comment on above: Performed By: #### H EPATIC, LIPASE, CBC, BMP ####[address] MCH [Entitic mass] by Automa michael countOrdered By: Derek Phipps on 04-17-2024 MCH (RBC) [Entitic mass] 29.7 pg Normal 24.7-34.3 [facility] Comment on above: Performed By: #### H EPATIC, LIPASE, CBC, BMP ####[address] MCHC Auto (RBC) [Mass/Vol]Or dered By: Derek Phipps on 04-17-2024 MCHC (RBC) [Mass/Vol] 33.9 g/dL 32.0-35.0 [facility] MCV [Entitic volume] by Auto mated countOrdered By: Derek Phipps on 04-17-2024 MCV (RBC) [Entitic vol] 87.6 fL Normal 80-100 [facility] Comment on above: Performed By: #### H EPATIC, LIPASE, CBC, BMP ####[address] Monocyte distribution width [Entitic volume] in Blood by AutomatedOrdered By: Derek Phipps on 04-17-2024 Monocyte distribution width Auto (Bld) [Entitic vol] 19.53 % 0.00-20.00 [facility] Mucus [Presence] in Urine by AutomatedOrdered By: Derek Phipps on 04-17-2024 Mucus Auto Ql (U) 4+ [LPF] Abnormal [facility] Neutrophils [#/volume] in Bl ood by Automated countOrdered By: Derek Phipps on 04-17-2024 Neutrophils (Bld) [#/Vol] 7.3 10*3/uL Normal 1.8-7.7 [facility] Comment on above: Performed By: #### H EPATIC, LIPASE, CBC, BMP ####[facility] [id number] [place] [address] [facility] Nitrite Test strip Ql (U)Ord ered By: Derek Phipps on 04-17-2024 Nitrite Ql (U) Negative Negative [facility] No Panel InformationOrdered By: Derek Phipps on 04-17-2024 Estimated GFR (CKD-EPI) > 60.0 mL/Min [facility] Creatinine Clearance (Chem 94.59 [facility] Nucleated erythrocytes [Pres ence] in Blood by Automated countOrdered By: Derek Phipps on 04-17-2024 Nucleated RBC Auto Ql (Bld) 0.0 /100{WBC} 0-0.5 [facility] Opiates [Presence] in Urine by Screen methodOrdered By: Derek Phipps on 04-17-2024 Opiates Screen Ql (U) Negative Negative [facility] Phencyclidine Screen Ql (U)O rdered By: Derek Phipps on 04-17-2024 Phencyclidine Ql (U) Negative Negative [facility] Platelet mean volume [Entiti c volume] in Blood by Automated countOrdered By: Derek Phipps on 04-17-2024 Platelet mean volume (Bld) [Entitic vol] 7.8 fL Normal 6.3-10.7 [facility] Comment on above: Performed By: #### H EPATIC, LIPASE, CBC, BMP ####[facility] [id number] [place] [address] [facility] Platelets [#/volume] in Bloo d by Automated countOrdered By: Derek Phipps on 04-17-2024 Platelets (Bld) [#/Vol] 253 10*3/uL Normal 150-450 [facility] Comment on above: Performed By: #### H EPATIC, LIPASE, CBC, BMP ####[facility] [id number] [place] [id number] [place] Potassium [Moles/volume] in Serum or PlasmaOrdered By: Derek Phipps on 04-17-2024 Potassium [Moles/Vol] 3.8 mmol/L Normal 3.5-5.1 [facility] Comment on above: Performed By: #### H EPATIC, LIPASE, CBC, BMP ####[address] Protein Test strip (U) [Mass /Vol]Ordered By: Derek Phipps on 04-17-2024 Protein (U) [Mass/Vol] Trace mg/dL High Negative [facility] Protein [Mass/volume] in Ser um or PlasmaOrdered By: Derek Phipps on 04-17-2024 Protein [Mass/Vol] 7.4 g/dL Normal 6.4-8.9 [facility] Comment on above: Performed By: #### H EPATIC, LIPASE, CBC, BMP ####[address] Serum globulin measurement b y calculation (mass/volume)Ordered By: Derek Phipps on 04-17-2024 Globulin (S) [Mass/Vol] 2.7 g/dL Normal [facility] Comment on above: Performed By: #### H EPATIC, LIPASE, CBC, BMP ####[address] Serum or plasma albumin/glob ulin mass ratioOrdered By: Derek Phipps on 04-17-2024 Albumin/Globulin [Mass ratio] 1.7 {ratio} Normal [facility] Comment on above: Performed By: #### H EPATIC, LIPASE, CBC, BMP ####[address] Serum or plasma anion gap de terminationOrdered By: Derek Phipps on 04-17-2024 Anion gap [Moles/Vol] 9.3 mmol/L Normal 6.0-15.0 [facility] Comment on above: Performed By: #### H EPATIC, LIPASE, CBC, BMP ####[address] Serum or plasma non-glucuron idated bilirubin measurement (mass/volume)Ordered By: Derek Phipps on 04-17-2024 Bilirubin.indirect [Mass/Vol] 0.5 mg/dL [facility] Sodium [Moles/volume] in Ser um or PlasmaOrdered By: Derek Phipps on 04-17-2024 Sodium [Moles/Vol] 140 mmol/L Normal 136-145 [facility] Comment on above: Performed By: #### H EPATIC, LIPASE, CBC, BMP ####[facility] Specific gravity Test strip (U) [Rel density]Ordered By: Derek Phipps on 04-17-2024 Specific gravity (U) [Rel density] 1.020 1.001-1.03 0 [facility] Urea nitrogen [Mass/volume] in Serum or PlasmaOrdered By: Derek Phipps on 04-17-2024 Urea nitrogen [Mass/Vol] 6 mg/dL Low 7-25 [facility] Comment on above: Performed By: #### H EPATIC, LIPASE, CBC, BMP ####[address] Urine appearanceOrdered By: Derek Phipps on 04-17-2024 Appearance (U) Clear Normal Clear [facility] Comment on above: Order Comment: Name Collection Type:: Clean-Voided Midstream Performed By: #### U HCG, ADDONUAPLUS, URDS #### [address] Urobilinogen Test strip (U) [Mass/Vol]Ordered By: Derek Phipps on 04-17-2024 Urobilinogen (U) [Mass/Vol] Normal mg/dL Normal [facility] pH of Urine by Test stripOrd ered By: Derek Phipps on 04-17-2024 pH (U) 7.5 [pH] Normal 5.0-9.0 [facility] Comment on above: Order Comment: Name Collection Type:: Clean-Voided Midstream Performed By: #### U HCG, ADDONUAPLUS, URDS #### [address] Basophils Auto (Bld) [#/Vol] Ordered By: Sedrick Wells on 10-13-2023 Basophils (Bld) [#/Vol] 0.0 10*3/uL 0.0-0.2 [facility] Basophils/100 WBC Auto (Bld) Ordered By: Sedrick Wells on 10-13-2023 Basophils/100 WBC (Bld) 0.6 % . [facility] Calcium [Mass/volume] in Ser um or PlasmaOrdered By: Sedrick Wells on 10-13-2023 Calcium [Mass/Vol] 9.0 mg/dL 8.6-10.3 [facility] Carbon dioxide, total [Moles /volume] in Serum or PlasmaOrdered By: Sedrick Wells on 10-13-2023 CO2 [Moles/Vol] 28.6 mmol/L 21.0-31.0 [facility] Chloride [Moles/volume] in S isabel or PlasmaOrdered By: Sedrick Wells on 10-13-2023 Chloride [Moles/Vol] 107 mmol/L 98-107 [facility] Choriogonadotropin.beta subu nit [Units/volume] in Serum or PlasmaOrdered By: Sedrick Wells on 10-13-2023 HCG.beta subunit Qn Negative [facility] Creatine kinase [Enzymatic a ctivity/volume] in Serum or PlasmaOrdered By: Sedrick Wells on 10-13-2023 CK [Catalytic activity/Vol] 42 U/L 30-223 [facility] Creatinine [Mass/volume] in Serum or PlasmaOrdered By: Sedrick Wells on 10-13-2023 Creatinine [Mass/Vol] 0.51 mg/dL 0.60-1.20 [facility] Eosinophils Auto (Bld) [#/Vo l]Ordered By: Sedrick Wells on 10-13-2023 Eosinophils (Bld) [#/Vol] 0.3 10*3/uL 0.0-0.45 [facility] Eosinophils/100 WBC Auto (Bl d)Ordered By: Sedrick Wells on 10-13-2023 Eosinophils/100 WBC (Bld) 3.8 % . [facility] Erythrocyte distribution wid th Auto (RBC) [Ratio]Ordered By: Sedrick Wells on 10-13-2023 Erythrocyte distribution width (RBC) [Ratio] 13.9 % 11.9-15.3 [facility] Glucose [Mass/volume] in Ser um or PlasmaOrdered By: Sedrick Wells on 10-13-2023 Glucose [Mass/Vol] 80 mg/dL 70-100 [facility] Comment on above: ADA recommended refe rence rangeRandom Glucose Reference Range is dependent on time and content of last meal. Glucose of more than 200 mg/dL in a nonstressed, ambulatory subject supports the diagnosis of Diabetes Mellitus. Hematocrit Auto (Bld) [Volum e fraction]Ordered By: Sedrick Wells on 10-13-2023 Hematocrit (Bld) [Volume fraction] 34.6 % 34.0-46.4 [facility] Hemoglobin [Mass/volume] in BloodOrdered By: Sedrick Wells on 10-13-2023 Hemoglobin (Bld) [Mass/Vol] 11.8 g/dL 11.8-15.4 [facility] Leukocytes [#/volume] correc michael for nucleated erythrocytes in Blood by Automated counOrdered By: Sedrick Wells on 10-13-2023 WBC corrected for nucl RBC Auto (Bld) [#/Vol] 6.9 10*3/uL 3.8-11.6 [facility] Lymphocytes Auto (Bld) [#/Vo l]Ordered By: Sedrick Wells on 10-13-2023 Lymphocytes (Bld) [#/Vol] 1.5 10*3/uL 1.00-4.8 [facility] Lymphocytes/100 WBC Auto (Bl d)Ordered By: Sedrick Wells on 10-13-2023 Lymphocytes/100 WBC (Bld) 21.5 % . [facility] MCH Auto (RBC) [Entitic mass ]Ordered By: Sedrick Wells on 10-13-2023 MCH (RBC) [Entitic mass] 29.3 pg 24.7-34.3 [facility] MCHC Auto (RBC) [Mass/Vol]Or dered By: Sedrick Wells on 10-13-2023 MCHC (RBC) [Mass/Vol] 33.9 g/dL 32.0-35.0 [facility] MCV Auto (RBC) [Entitic vol] Ordered By: Sedrick Wells on 10-13-2023 MCV (RBC) [Entitic vol] 86.4 fL 80-100 [facility] Monocyte distribution width [Entitic volume] in Blood by AutomatedOrdered By: Sedrick Wells on 10-13-2023 Monocyte distribution width Auto (Bld) [Entitic vol] 16.72 % 0.00-20.00 [facility] Monocytes Auto (Bld) [#/Vol] Ordered By: Sedrick Wells on 10-13-2023 Monocytes (Bld) [#/Vol] 0.3 10*3/uL 0.0-0.8 [facility] Monocytes/100 WBC Auto (Bld) Ordered By: Sedrick Wells on 10-13-2023 Monocytes/100 WBC (Bld) 4.7 % . [facility] Natriuretic peptide B [Mass/ Vol]Ordered By: Sedrick Wells on 10-13-2023 Natriuretic peptide B (Bld) [Mass/Vol] 30.0 pg/mL 5-100 [facility] Neutrophils Auto (Bld) [#/Vo l]Ordered By: Sedrick Wells on 10-13-2023 Neutrophils (Bld) [#/Vol] 4.8 10*3/uL 1.8-7.7 [facility] Neutrophils/100 WBC Auto (Bl d)Ordered By: Serdick Wells on 10-13-2023 Neutrophils/100 WBC (Bld) 69.4 % . [facility] No Panel InformationOrdered By: Sedrick Wells on 10-13-2023 Estimated GFR (CKD-EPI) > 60.0 mL/Min [facility] Creatinine Clearance (Chem 118.45 [facility] Nucleated erythrocytes [Pres ence] in Blood by Automated countOrdered By: Sedrick Wells on 10-13-2023 Nucleated RBC Auto Ql (Bld) 0.1 /100{WBC} 0-0.5 [facility] Platelet mean volume Auto (B ld) [Entitic vol]Ordered By: Sedrick Wells on 10-13-2023 Platelet mean volume (Bld) [Entitic vol] 7.7 fL 6.3-10.7 [facility] Platelets Auto (Bld) [#/Vol] Ordered By: Sedrick Wells on 10-13-2023 Platelets (Bld) [#/Vol] 257 10*3/uL 150-450 [facility] Potassium [Moles/volume] in Serum or PlasmaOrdered By: Sedrick Wells on 10-13-2023 Potassium [Moles/Vol] 3.7 mmol/L 3.5-5.1 [facility] RBC Auto (Bld) [#/Vol]Ordere d By: Sedrick Wells on 10-13-2023 RBC (Bld) [#/Vol] 4.01 10*6/uL 3.60-5.00 [facility] Serum or plasma anion gap de terminationOrdered By: Sedrick Wells on 10-13-2023 Anion gap [Moles/Vol] 7.1 mmol/L 6.0-15.0 [facility] Sodium [Moles/volume] in Ser um or PlasmaOrdered By: Sedrick Wells on 10-13-2023 Sodium [Moles/Vol] 139 mmol/L 136-145 [facility] Troponin I.cardiac [Mass/vol ume] in Serum or Plasma by Detection limit <= 0.01 ng/Ordered By: Sedrick Wells on 10-13-2023 Troponin I.cardiac DL <= 0.01 ng/mL [Mass/Vol] < 2.3 pg/mL 0.0-15.0 [facility] Urea nitrogen [Mass/volume] in Serum or PlasmaOrdered By: Sedrick Wells on 10-13-2023 Urea nitrogen [Mass/Vol] 10 mg/dL 7-25 [facility] WBC Auto (Bld) [#/Vol]Ordere d By: Sedrick Wells on 10-13-2023 WBC (Bld) [#/Vol] 6.9 10*3/uL 3.8-11.6 [facility] Activated partial thrombopla stin time (aPTT) in platelet poor plasma by coagulation aOrdered By: Ashley Roberson on 09-28-2023 aPTT Coag (PPP) [Time] 31.0 s 25.1-36.5 [facility] Comment on above: A hematocrit value g reater than 55% may lead to inaccurate results in coagulation testing. Patients having hematocrit values >55% require a special collection tube for coagulation studies. Please contact the laboratory at [phone] for redraw instructions. Alanine aminotransferase [En zymatic activity/volume] in Serum or PlasmaOrdered By: Ashley Roberson on 09-28-2023 ALT [Catalytic activity/Vol] 6 U/L 7-52 [facility] Albumin [Mass/volume] in Ser um or Plasma by Bromocresol green (BCG) dye binding methoOrdered By: Ashley Roberson on 09-28-2023 Albumin BCG dye [Mass/Vol] 4.8 g/dL 3.5-5.7 [facility] Alkaline phosphatase [Enzyma tic activity/volume] in Serum or PlasmaOrdered By: Ashley Roberson on 09-28-2023 ALP [Catalytic activity/Vol] 62 U/L 34-104 [facility] Aspartate aminotransferase [ Enzymatic activity/volume] in Serum or PlasmaOrdered By: Ashley Roberson on 09-28-2023 AST [Catalytic activity/Vol] 15 U/L 13-39 [facility] Automated erythrocytes count in urine sediment (number/area)Ordered By: Ashley Roberson on 09-28-2023 RBC Auto (Urine sed) [#/Area] 1-2 [HPF] 0-4 [facility] Automated leukocytes count i n urine sediment (number/area)Ordered By: Ashley Roberson on 09-28-2023 WBC Auto (Urine sed) [#/Area] 20-49 [HPF] 0-4 [facility] Automated urine hyaline cast s count (number/volume)Ordered By: Ashley Roberson on 09-28-2023 Hyaline casts Auto (U) [#/Vol] None seen [LPF] 0-1 [facility] Basophils Auto (Bld) [#/Vol] Ordered By: Ashley Roberson on 09-28-2023 Basophils (Bld) [#/Vol] 0.1 10*3/uL 0.0-0.2 [facility] Basophils/100 WBC Auto (Bld) Ordered By: Ashley Roberson on 09-28-2023 Basophils/100 WBC (Bld) 0.4 % . [facility] Bilirubin Test strip Ql (U)O rdered By: Ashley Roberson on 09-28-2023 Bilirubin Ql (U) Negative Negative [facility] Bilirubin.total [Mass/volume ] in Serum or PlasmaOrdered By: Ashley Roberson on 09-28-2023 Bilirubin [Mass/Vol] 1.2 mg/dL 0.3-1.0 [facility] COVID CepheidOrdered By: Nuvia Roberson on 09-28-2023 SARS-CoV-2 (COVID-19) Ab IA Ql Negative Negative [facility] Comment on above: This is a duplicate [employer] Xpert Xpress CoV-2/Flu/RSV Plus RNA by RT-PCR result to be used for statistical tracking purpose only. SARS-CoV-2 (COVID-19) RNA OMAIRA+probe Ql (Unsp spec) [facility] Calcium [Mass/volume] in Ser um or PlasmaOrdered By: Ashley Roberson on 09-28-2023 Calcium [Mass/Vol] 10.1 mg/dL 8.6-10.3 [facility] Carbon dioxide, total [Moles /volume] in Serum or PlasmaOrdered By: Ashley Roberson on 09-28-2023 CO2 [Moles/Vol] 25.4 mmol/L 21.0-31.0 [facility] Chloride [Moles/volume] in S isabel or PlasmaOrdered By: Ashley Roberson on 09-28-2023 Chloride [Moles/Vol] 99 mmol/L 98-107 [facility] Color Auto (U)Ordered By: Sheng Roberson on 09-28-2023 Color (U) Dark yellow Yellow [facility] Creatinine [Mass/volume] in Serum or PlasmaOrdered By: Ashley Roberson on 09-28-2023 Creatinine [Mass/Vol] 0.62 mg/dL 0.60-1.20 [facility] Eosinophils Auto (Bld) [#/Vo l]Ordered By: Ashley Roberson on 09-28-2023 Eosinophils (Bld) [#/Vol] 0.2 10*3/uL 0.0-0.45 [facility] Eosinophils/100 WBC Auto (Bl d)Ordered By: Ashley Roberson on 09-28-2023 Eosinophils/100 WBC (Bld) 1.3 % . [facility] Erythrocyte distribution wid th Auto (RBC) [Ratio]Ordered By: Ashley Roberson on 09-28-2023 Erythrocyte distribution width (RBC) [Ratio] 13.8 % 11.9-15.3 [facility] Fibrin D-dimer [Presence] in Platelet poor plasma by Latex agglutinationOrdered By: Ashley Roberson on 09-28-2023 Fibrin D-dimer LA Ql (PPP) < 200 ng/mL 0-243 [facility] Comment on above: The reference range [...] coagulation studies. Please contact the laboratory at [phone] for redraw instructions. Globulin Calc (S) [Mass/Vol] Ordered By: Ashley Roberson on 09-28-2023 Globulin (S) [Mass/Vol] 3.3 g/dL [facility] Glucose Glucometer (BldC) [M ass/Vol]Ordered By: Ashley Roberson on 09-28-2023 Glucose [Mass/Vol] 113 mg/dL [facility] Comment on above: Random Glucose Refer ence Range is dependent on time and content of last meal. Glucose of more than 200 mg/dL in a nonstressed, ambulatory subject supports the diagnosis of Diabetes Mellitus. Glucose [Mass/volume] in Ser um or PlasmaOrdered By: Ashley Roberson on 09-28-2023 Glucose [Mass/Vol] 59 mg/dL 70-100 [facility] Comment on above: ADA recommended refe rence rangeRandom Glucose Reference Range is dependent on time and content of last meal. Glucose of more than 200 mg/dL in a nonstressed, ambulatory subject supports the diagnosis of Diabetes Mellitus. HCG ( test) IA.rapi d Ql (U)Ordered By: Ashley Roberson on 09-28-2023 HCG ( test) Ql (U) Negative [facility] Hematocrit Auto (Bld) [Volum e fraction]Ordered By: Ashley Roberson on 09-28-2023 Hematocrit (Bld) [Volume fraction] 38.8 % 34.0-46.4 [facility] Hemoglobin [Mass/volume] in BloodOrdered By: Ashley Roberson on 09-28-2023 Hemoglobin (Bld) [Mass/Vol] 13.4 g/dL 11.8-15.4 [facility] INR in Platelet poor plasma by Coagulation assayOrdered By: Ashley Roberson on 09-28-2023 INR Coag (PPP) [Relative time] 1.2 {INR} [facility] Comment on above: INR Therapeutic Rang [...] on 09-28-2023 Ketones (U) [Mass/Vol] 4+ Negative [facility] Leukocytes [#/volume] correc michael for nucleated erythrocytes in Blood by Automated counOrdered By: Ashley Roberson on 09-28-2023 WBC corrected for nucl RBC Auto (Bld) [#/Vol] 17.6 10*3/uL 3.8-11.6 [facility] Lipase [Enzymatic activity/v olume] in Serum or PlasmaOrdered By: Ashley Roberson on 09-28-2023 Lipase [Catalytic activity/Vol] 15.0 U/L 11.0-82.0 [facility] Lymphocytes Auto (Bld) [#/Vo l]Ordered By: Ashley Roberson on 09-28-2023 Lymphocytes (Bld) [#/Vol] 1.4 10*3/uL 1.00-4.8 [facility] Lymphocytes/100 WBC Auto (Bl d)Ordered By: Ashley Roberson on 09-28-2023 Lymphocytes/100 WBC (Bld) 8.2 % . [facility] MCH Auto (RBC) [Entitic mass ]Ordered By: Ashley Roberson on 09-28-2023 MCH (RBC) [Entitic mass] 29.5 pg 24.7-34.3 [facility] MCHC Auto (RBC) [Mass/Vol]Or dered By: Ashley Roberson on 09-28-2023 MCHC (RBC) [Mass/Vol] 34.6 g/dL 32.0-35.0 [facility] MCV Auto (RBC) [Entitic vol] Ordered By: Ashley Roberson on 09-28-2023 MCV (RBC) [Entitic vol] 85.4 fL 80-100 [facility] Monocyte distribution width [Entitic volume] in Blood by AutomatedOrdered By: Ashley Roberson on 09-28-2023 Monocyte distribution width Auto (Bld) [Entitic vol] 20.66 % 0.00-20.00 [facility] Comment on above: For adults in ED, MD W > 20.0 may be associated with a higher risk of sepsis during the first 12 hrs of hospital admission Monocytes Auto (Bld) [#/Vol] Ordered By: Ashley Roberson on 09-28-2023 Monocytes (Bld) [#/Vol] 0.7 10*3/uL 0.0-0.8 [facility] Monocytes/100 WBC Auto (Bld) Ordered By: Ashley Roberson on 09-28-2023 Monocytes/100 WBC (Bld) 4.2 % . [facility] Neutrophils Auto (Bld) [#/Vo l]Ordered By: Ashley Roberson on 09-28-2023 Neutrophils (Bld) [#/Vol] 15.1 10*3/uL 1.8-7.7 [facility] Neutrophils/100 WBC Auto (Bl d)Ordered By: Ashley Roberson on 09-28-2023 Neutrophils/100 WBC (Bld) 85.9 % . [facility] Nitrite Test strip Ql (U)Ord ered By: Ashley Roberson on 09-28-2023 Nitrite Ql (U) Negative Negative [facility] No Panel InformationOrdered By: Ashley Roberson on 09-28-2023 Bedside Glucose Comment See comment [facility] Comment on above: Glu2: WILL NOTIFY DR /RN Estimated GFR (CKD-EPI) > 60.0 mL/Min [facility] Creatinine Clearance (Chem 92.34 [facility] Nucleated erythrocytes [Pres ence] in Blood by Automated countOrdered By: Ashley Roberson on 09-28-2023 Nucleated RBC Auto Ql (Bld) 0.1 /100{WBC} 0-0.5 [facility] Platelet mean volume Auto (B ld) [Entitic vol]Ordered By: Ashley Roberson on 09-28-2023 Platelet mean volume (Bld) [Entitic vol] 8.0 fL 6.3-10.7 [facility] Platelets Auto (Bld) [#/Vol] Ordered By: Ashley Roberson on 09-28-2023 Platelets (Bld) [#/Vol] 377 10*3/uL 150-450 [facility] Potassium [Moles/volume] in Serum or PlasmaOrdered By: Ashley Roberson on 09-28-2023 Potassium [Moles/Vol] 3.8 mmol/L 3.5-5.1 [facility] Protein Auto test strip (U) [Mass/Vol]Ordered By: Ashley Roberson on 09-28-2023 Protein (U) [Mass/Vol] 30 mg/dL Negative [facility] Protein [Mass/volume] in Ser um or PlasmaOrdered By: Ashley Roberson on 09-28-2023 Protein [Mass/Vol] 8.1 g/dL 6.4-8.9 [facility] Prothrombin time (PT)Ordered By: Ashley Roberson on 09-28-2023 PT Coag (PPP) [Time] 13.8 s 9.0-12.9 [facility] Comment on above: A hematocrit value g reater than 55% may lead to inaccurate results in coagulation testing. Patients having hematocrit values >55% require a special collection tube for coagulation studies. Please contact the laboratory at [phone] for redraw instructions. RBC Auto (Bld) [#/Vol]Ordere d By: Ashley Roberson on 09-28-2023 RBC (Bld) [#/Vol] 4.55 10*6/uL 3.60-5.00 [facility] Serum or plasma albumin/glob ulin mass ratioOrdered By: Ashley Roberson on 09-28-2023 Albumin/Globulin [Mass ratio] 1.5 {ratio} [facility] Serum or plasma anion gap de terminationOrdered By: Ashley Roberson on 09-28-2023 Anion gap [Moles/Vol] 18.4 mmol/L 6.0-15.0 [facility] Sodium [Moles/volume] in Ser um or PlasmaOrdered By: Ashley Roberson on 09-28-2023 Sodium [Moles/Vol] 139 mmol/L 136-145 [facility] Specific gravity Auto test s trip (U) [Rel density]Ordered By: Ashley Roberson on 09-28-2023 Specific gravity (U) [Rel density] 1.030 1.001-1.03 0 [facility] Squamous epithelial cells de tection in urine sediment by light microscopyOrdered By: Ashley Roberson on 09-28-2023 Epithelial cells.squamous LM Ql (Urine sed) 3-4 [HPF] 0-2 [facility] Troponin I.cardiac [Mass/vol ume] in Serum or Plasma by Detection limit <= 0.01 ng/Ordered By: Ashley Roberson on 09-28-2023 Troponin I.cardiac DL <= 0.01 ng/mL [Mass/Vol] 3.3 pg/mL 0.0-15.0 [facility] Urea nitrogen [Mass/volume] in Serum or PlasmaOrdered By: Ashley Roberson on 09-28-2023 Urea nitrogen [Mass/Vol] 12 mg/dL 7-25 [facility] Urine bacteria detection by automated methodOrdered By: Ashley Roberson on 09-28-2023 Bacteria Auto Ql (U) None seen None Seen [facility] Urine clarity by refractomet ry automatedOrdered By: Ashley Roberson on 09-28-2023 Clarity Refractometry automated (U) Clear Clear [facility] Urine culture routineOrdered By: Ashley Roberson on 09-28-2023 Bacteria identified Cx Nom (U) Strep agalactiae - (group b) [facility] Urine glucose measurement by automated test strip (mass/volume)Ordered By: Ashley Roberson on 09-28-2023 Glucose Auto test strip (U) [Mass/Vol] Normal mg/dL Normal [facility] Urine hemoglobin detection b y automated test stripOrdered By: Ashley Roberson on 09-28-2023 Hemoglobin Auto test strip Ql (U) Negative Negative [facility] Urine leukocyte esterase det ection by automated test stripOrdered By: Ashley Roberson on 09-28-2023 Leukocyte esterase Auto test strip Ql (U) 3+ Negative [facility] Urobilinogen Auto test strip (U) [Mass/Vol]Ordered By: Ashley Roberson on 09-28-2023 Urobilinogen (U) [Mass/Vol] Normal mg/dL Normal [facility] WBC Auto (Bld) [#/Vol]Ordere d By: Ashley Roberson on 09-28-2023 WBC (Bld) [#/Vol] 17.6 10*3/uL 3.8-11.6 [facility] pH Auto test strip (U)Ordere d By: Ashley Roberson on 09-28-2023 pH (U) 6.0 [pH] 5.0-9.0 [facility] Amphetamine Screen Ql (U)Ord ered By: Jordi Seals on 09-10-2023 Amphetamines Ql (U) Negative Negative [facility] Barbiturates [Presence] in U rine by Screen methodOrdered By: Jordi Seals on 09-10-2023 Barbiturates Screen Ql (U) Negative Negative [facility] Benzodiazepines Screen Ql (U )Ordered By: Jordi Seals on 01-02-2024 Benzodiazepines Ql (U) Negative Negative [facility] Benzoylecgonine [Presence] i n Urine by Screen methodOrdered By: Jordi Seals on 09-10-2023 Benzoylecgonine Screen Ql (U) Negative Negative [facility] Cannabinoids [Presence] in U rine by Screen methodOrdered By: Imcher Montead on 09-10-2023 Cannabinoids Screen Ql (U) Positive Negative [facility] Comment on above: These are unconfirme d results and should not be used for legal purposes. Drug Cut-Off Concentration: AMPH 1000 ng/mL VENKATA 200 ng/mL BREANNA 200 ng/mL COCM 300 ng/mL OP 300 ng/mL PCP 25 ng/mL THC 20 ng/mL HCG ( test) IA.rapi d Ql (U)Ordered By: Imcher Asacher on 09-10-2023 HCG ( test) Ql (U) Negative [facility] Opiates [Presence] in Urine by Screen methodOrdered By: Imcher Asaad on 09-10-2023 Opiates Screen Ql (U) Negative Negative [facility] Phencyclidine Screen Ql (U)O rdered By: Imad Asaad on 09-10-2023 Phencyclidine Ql (U) Negative Negative [facility] HCG ( test) IA.rapi d Ql (U)Ordered By: Imcher Asaad on 06-03-2023 HCG ( test) Ql (U) Negative [facility] C reactive protein [Mass/vol ume] in Serum or PlasmaOrdered By: Imad Asaad on 05-08-2023 CRP [Mass/Vol] < 0.5 mg/dL 0.0-0.5 [facility] Calprotectin [Mass/mass] in StoolOrdered By: Imad Asaad on 05-08-2023 Calprotectin (Stl) [Mass/Mass] <5 ug/g 0-120 [facility] Comment on above: Concentration Interp retation Follow-Up< 5 - 50 ug/g Normal None>50 -120 ug/g Borderline Re-evaluate in 4-6 weeks >120 ug/g Abnormal Repeat as clinically indicatedPerformed at: - [facility] [id number] Director: Joseph Tang MD, Phone: [phone] Clostridioides difficile tox in B tcdB gene [Presence] in Stool by OMAIRA with probe deteOrdered By: Jordi Seals on 05-08-2023 C. difficile toxin B tcdB gene OMAIRA+probe Ql (Stl) Negative Negative [facility] Comment on above: Testing performed by RT-PCR Elastase.pancreatic [Mass/ma ss] in StoolOrdered By: Jordi Seals on 05-08-2023 Elastase.pancreatic (Stl) [Mass/Mass] 284 >200 [facility] Comment on above: Result Units: ug Bambi st./g Severe Pancreatic Insufficiency: <100 Moderate Pancreatic Insufficiency: 100 - 200 Normal: >200Performed at: - [facility] [id number] Director: Joseph Tang MD, Phone: [phone] Erythrocyte sedimentation ra te by Photometric methodOrdered By: Jordi Seals on 05-08-2023 ESR Photometric method (Bld) [Velocity] 3 mm/hr 0-19 [facility] HIV 1 and HIV-2 antibody ass ay with HIV-1 p24 antigen detectionOrdered By: Jordi Seals on 05-08-2023 HIV 1+2 Ab+HIV1 p24 Ag IA Ql Non-Reactive Non Reactive [facility] Comment on above: HIV NegativeHIV-1/HI V-2 antibodies and HIV-1 p24 antigen were NOTdetected. There is no laboratory evidence of HIV infection.Performed at: [facility] [facility] [address] [id number] Director: Mendel Rubin PhD, Phone: [phone] IgA [Mass/volume] in Serum o r PlasmaOrdered By: Imad Bozena on 05-08-2023 IgA [Mass/Vol] 260 mg/dL 87-352 [facility] Comment on above: Performed at: [employer] - [facility] [address] [id number] Director: Mendel Rubin PhD, Phone: [phone] No Panel InformationOrdered By: Imad Bozena on 05-08-2023 Endomysial IgA Antibody Negative Negative [facility] Ova and Parasite Result 1 N/A [facility] Ova and Parasite Result 1 [facility] Ova or parasites identificat ionOrdered By: Jordi Seals on 05-08-2023 Ova and parasites identified LM Nom (Unsp spec) N/A [facility] Ova and parasites identified LM Nom (Unsp spec) [facility] Serum gliadin peptide IgA an tibody assay (units/volume)Ordered By: Jordi Seals on 05-08-2023 Gliadin peptide IgA Qn (S) 6 units 0-19 [facility] Comment on above: Negative 0 - 19 Weak Positive 20 - 30 Moderate to Strong Positive >30 Serum gliadin peptide IgG an tibody assay (units/volume)Ordered By: Jordi Seals on 05-08-2023 Gliadin peptide IgG Qn (S) 3 units 0-19 [facility] Comment on above: Negative 0 - 19 Weak Positive 20 - 30 Moderate to Strong Positive >30 Serum tissue transglutaminas e (tTG) IgA antibody assay (units/volume)Ordered By: Jordi Seals on 05-08-2023 tTG IgA Qn (S) <2 U/mL 0-3 [facility] Comment on above: Negative 0 - 3 Weak Positive 4 - 10 Positive >10 Tissue Transglutaminase (tTG) has been identified as the endomysial antigen. Studies have demonstr- ated that endomysial IgA antibodies have over 99% specificity for gluten sensitive enteropathy. Serum tissue transglutaminas e (tTG) IgG antibody assay (units/volume)Ordered By: Jordi Seals on 05-08-2023 tTG IgG Qn (S) <2 U/mL 0-5 [facility] Comment on above: Negative 0 - 5 Weak Positive 6 - 9 Positive >9 Stool ova and parasites iden tification by concentrationOrdered By: Jordi Seals on 05-08-2023 Ova and parasites identified Concentration Nom (Stl) N/A [facility] Stool ova and parasites iden tification by trichrome stainOrdered By: Imcher Seals on 05-08-2023 Ova and parasites identified Trichrome stain Nom (Stl) N/A [facility] Thyrotropin [Units/volume] i n Serum or PlasmaOrdered By: Imcher Seals on 05-08-2023 TSH Qn 0.49 m[IU]/L 0.45-5.33 [facility] Alanine aminotransferase [En zymatic activity/volume] in Serum or PlasmaOrdered By: Vivian Zamudioore on 12-29-2022 ALT [Catalytic activity/Vol] 9 U/L 7-52 [facility] Albumin [Mass/volume] in Ser um or Plasma by Bromocresol green (BCG) dye binding methoOrdered By: Vivian Bullimore on 12-29-2022 Albumin BCG dye [Mass/Vol] 4.9 g/dL 3.5-5.7 [facility] Alkaline phosphatase [Enzyma tic activity/volume] in Serum or PlasmaOrdered By: Vivian Tejadaimore on 12-29-2022 ALP [Catalytic activity/Vol] 60 U/L 34-104 [facility] Aspartate aminotransferase [ Enzymatic activity/volume] in Serum or PlasmaOrdered By: Vivian Zamudioore on 12-29-2022 AST [Catalytic activity/Vol] 14 U/L 13-39 [facility] Automated erythrocytes count in urine sediment (number/area)Ordered By: Vivian Zamudioore on 12-29-2022 RBC Auto (Urine sed) [#/Area] 1-2 [HPF] 0-4 [facility] Automated leukocytes count i n urine sediment (number/area)Ordered By: Vivian Zamudioore on 12-29-2022 WBC Auto (Urine sed) [#/Area] 20-49 [HPF] 0-4 [facility] Automated urine hyaline cast s count (number/volume)Ordered By: Vivian Zamudioore on 12-29-2022 Hyaline casts Auto (U) [#/Vol] 10-19 [LPF] 0-1 [facility] Basophils Auto (Bld) [#/Vol] Ordered By: Vivian Zamudioore on 12-29-2022 Basophils (Bld) [#/Vol] 0.0 10*3/uL 0.0-0.2 [facility] Basophils/100 WBC Auto (Bld) Ordered By: Vivian Nieto on 12-29-2022 Basophils/100 WBC (Bld) 0.4 % . [facility] Bilirubin Test strip Ql (U)O rdered By: Vivian Nieto on 12-29-2022 Bilirubin Ql (U) Negative Negative [facility] Bilirubin.total [Mass/volume ] in Serum or PlasmaOrdered By: Vivian Nieto on 12-29-2022 Bilirubin [Mass/Vol] 0.6 mg/dL 0.3-1.0 [facility] C reactive protein [Mass/vol ume] in Serum or PlasmaOrdered By: Vivian Tejadaimore on 12-29-2022 CRP [Mass/Vol] 3.1 mg/dL 0.0-0.5 [facility] Calcium [Mass/volume] in Ser um or PlasmaOrdered By: Vivian Tejadaimdebra on 12-29-2022 Calcium [Mass/Vol] 10.0 mg/dL 8.6-10.3 [facility] Carbon dioxide, total [Moles /volume] in Serum or PlasmaOrdered By: Vivian Nieto on 12-29-2022 CO2 [Moles/Vol] 26.6 mmol/L 21.0-31.0 [facility] Casts typing in urine sedime nt by light microscopyOrdered By: PROVIDER TEMP on 12-29-2022 Casts LM Nom (Urine sed) N/A [facility] Chloride [Moles/volume] in S isabel or PlasmaOrdered By: Vivian Nieto on 12-29-2022 Chloride [Moles/Vol] 103 mmol/L 98-107 [facility] Color Auto (U)Ordered By: Radha Nieto on 12-29-2022 Color (U) Dark yellow Yellow [facility] Creatinine [Mass/volume] in Serum or PlasmaOrdered By: Vivian Nieto on 12-29-2022 Creatinine [Mass/Vol] 0.55 mg/dL 0.60-1.20 [facility] Eosinophils Auto (Bld) [#/Vo l]Ordered By: Vivian Nieto on 12-29-2022 Eosinophils (Bld) [#/Vol] 0.3 10*3/uL 0.0-0.45 [facility] Eosinophils/100 WBC Auto (Bl d)Ordered By: Vivian Nieto on 12-29-2022 Eosinophils/100 WBC (Bld) 3.2 % . [facility] Erythrocyte distribution wid th Auto (RBC) [Ratio]Ordered By: Vivian Nieto on 12-29-2022 Erythrocyte distribution width (RBC) [Ratio] 14.9 % 11.9-15.3 [facility] Erythrocyte sedimentation ra te by Photometric methodOrdered By: Vivian Nieto on 12-29-2022 ESR Photometric method (Bld) [Velocity] 21 mm/hr 0-19 [facility] Globulin Calc (S) [Mass/Vol] Ordered By: Vivian Nieto on 12-29-2022 Globulin (S) [Mass/Vol] 3.3 g/dL [facility] Glucose [Mass/volume] in Ser um or PlasmaOrdered By: Vivian Nieto on 12-29-2022 Glucose [Mass/Vol] 75 mg/dL 70-100 [facility] Comment on above: ADA recommended refe rence rangeRandom Glucose Reference Range is dependent on time and content of last meal. Glucose of more than 200 mg/dL in a nonstressed, ambulatory subject supports the diagnosis of Diabetes Mellitus. HCG ( test) IA.rapi d Ql (U)Ordered By: JESSI HUBBARD on 12-29-2022 HCG ( test) Ql (U) Negative [facility] Hematocrit Auto (Bld) [Volum e fraction]Ordered By: Vivian Nieto on 12-29-2022 Hematocrit (Bld) [Volume fraction] 39.6 % 34.0-46.4 [facility] Hemoglobin [Mass/volume] in BloodOrdered By: Vivian Nieto on 12-29-2022 Hemoglobin (Bld) [Mass/Vol] 13.2 g/dL 11.8-15.4 [facility] Ketones Auto test strip (U) [Mass/Vol]Ordered By: Vivian Nieto on 12-29-2022 Ketones (U) [Mass/Vol] 3+ Negative [facility] Leukocytes [#/volume] correc michael for nucleated erythrocytes in Blood by Automated counOrdered By: Vivian Nieto on 12-29-2022 WBC corrected for nucl RBC Auto (Bld) [#/Vol] 9.8 10*3/uL 3.8-11.6 [facility] Lymphocytes Auto (Bld) [#/Vo l]Ordered By: Vivian Bullimore on 12-29-2022 Lymphocytes (Bld) [#/Vol] 1.2 10*3/uL 1.00-4.8 [facility] Lymphocytes/100 WBC Auto (Bl d)Ordered By: Vivian Bullimore on 12-29-2022 Lymphocytes/100 WBC (Bld) 11.9 % . [facility] MCH Auto (RBC) [Entitic mass ]Ordered By: Vivian Bullimore on 12-29-2022 MCH (RBC) [Entitic mass] 27.5 pg 24.7-34.3 [facility] MCHC Auto (RBC) [Mass/Vol]Or dered By: Vivian Bullimore on 12-29-2022 MCHC (RBC) [Mass/Vol] 33.3 g/dL 32.0-35.0 [facility] MCV Auto (RBC) [Entitic vol] Ordered By: Vivian Bullimore on 12-29-2022 MCV (RBC) [Entitic vol] 82.6 fL 80-100 [facility] Monocytes Auto (Bld) [#/Vol] Ordered By: Vivian Bullimore on 12-29-2022 Monocytes (Bld) [#/Vol] 0.5 10*3/uL 0.0-0.8 [facility] Monocytes/100 WBC Auto (Bld) Ordered By: Vivian Bullimore on 12-29-2022 Monocytes/100 WBC (Bld) 5.1 % . [facility] Neutrophils Auto (Bld) [#/Vo l]Ordered By: Vivian Bullimore on 12-29-2022 Neutrophils (Bld) [#/Vol] 7.8 10*3/uL 1.8-7.7 [facility] Neutrophils/100 WBC Auto (Bl d)Ordered By: Vivian Bullimore on 12-29-2022 Neutrophils/100 WBC (Bld) 79.4 % . [facility] Nitrite Test strip Ql (U)Ord ered By: Vivian Bullimore on 12-29-2022 Nitrite Ql (U) Negative Negative [facility] No Panel InformationOrdered By: Vivian Tejadaimore on 12-29-2022 Estimated GFR (CKD-EPI) > 60.0 mL/Min [facility] Creatinine Clearance (Chem 123.12 [facility] Nucleated erythrocytes [Pres ence] in Blood by Automated countOrdered By: Vivian Bullimore on 12-29-2022 Nucleated RBC Auto Ql (Bld) 0.1 /100{WBC} 0-0.5 [facility] Platelet mean volume Auto (B ld) [Entitic vol]Ordered By: Vivian Bullimore on 12-29-2022 Platelet mean volume (Bld) [Entitic vol] 7.7 fL 6.3-10.7 [facility] Platelets Auto (Bld) [#/Vol] Ordered By: Vivian Bullimore on 12-29-2022 Platelets (Bld) [#/Vol] 305 10*3/uL 150-450 [facility] Potassium [Moles/volume] in Serum or PlasmaOrdered By: Vivian Bullimore on 12-29-2022 Potassium [Moles/Vol] 3.6 mmol/L 3.5-5.1 [facility] Protein Auto test strip (U) [Mass/Vol]Ordered By: Vivian Tejadaimore on 12-29-2022 Protein (U) [Mass/Vol] 30 mg/dL Negative [facility] Protein [Mass/volume] in Ser um or PlasmaOrdered By: Vivian Bullimore on 12-29-2022 Protein [Mass/Vol] 8.2 g/dL 6.4-8.9 [facility] RBC Auto (Bld) [#/Vol]Ordere d By: Vivian Bullimore on 12-29-2022 RBC (Bld) [#/Vol] 4.79 10*6/uL 3.60-5.00 [facility] Serum or plasma albumin/glob ulin mass ratioOrdered By: Vivian Bullimore on 12-29-2022 Albumin/Globulin [Mass ratio] 1.5 {ratio} [facility] Serum or plasma anion gap de terminationOrdered By: Vivian Bullimore on 12-29-2022 Anion gap [Moles/Vol] 14.0 mmol/L 6.0-15.0 [facility] Sodium [Moles/volume] in Ser um or PlasmaOrdered By: Vivian Nieto on 12-29-2022 Sodium [Moles/Vol] 140 mmol/L 136-145 [facility] Specific gravity Auto test s trip (U) [Rel density]Ordered By: Vivian Nieto on 12-29-2022 Specific gravity (U) [Rel density] 1.030 1.001-1.03 0 [facility] Squamous epithelial cells de tection in urine sediment by light microscopyOrdered By: Vivian Nieto on 12-29-2022 Epithelial cells.squamous LM Ql (Urine sed) 10-19 [HPF] 0-2 [facility] Urea nitrogen [Mass/volume] in Serum or PlasmaOrdered By: Vivian Nieto on 12-29-2022 Urea nitrogen [Mass/Vol] 7 mg/dL 7-25 [facility] Urine bacteria detection by automated methodOrdered By: Vivian Nieto on 12-29-2022 Bacteria Auto Ql (U) None seen None Seen [facility] Urine clarity by refractomet ry automatedOrdered By: Vivian Nieto on 12-29-2022 Clarity Refractometry automated (U) Cloudy Clear [facility] Urine glucose measurement by automated test strip (mass/volume)Ordered By: Vivian Nieto on 12-29-2022 Glucose Auto test strip (U) [Mass/Vol] Normal mg/dL Normal [facility] Urine hemoglobin detection b y automated test stripOrdered By: iVvian Nieto on 12-29-2022 Hemoglobin Auto test strip Ql (U) Negative Negative [facility] Urine leukocyte esterase det ection by automated test stripOrdered By: Vivian Nieto on 12-29-2022 Leukocyte esterase Auto test strip Ql (U) 2+ Negative [facility] Urobilinogen Auto test strip (U) [Mass/Vol]Ordered By: Vivian Nieto on 12-29-2022 Urobilinogen (U) [Mass/Vol] Normal mg/dL Normal [facility] WBC Auto (Bld) [#/Vol]Ordere d By: Vivian Nieto on 12-29-2022 WBC (Bld) [#/Vol] 9.8 10*3/uL 3.8-11.6 [facility] pH Auto test strip (U)Ordere d By: Vivian Nieto on 12-29-2022 pH (U) 6.5 [pH] 5.0-9.0 [facility] Physician Referralon 023 Physician Referral [id number] Normal [facility] Ambulatory Visit Summaryon 0 11-06-2022 Ambulatory Visit Summary DAWN MAJOR :2000 Visit Date:11/06/2022 Ambulatory Visit Instructions Your [...] Appointments Follow Up with Kayy Fontana MD, [facility], MED When: Only if needed Where: [address] [place] [phone] Someone Will Contact You Regarding These Appointments [facility] External Ambulatory Referral, Gastroenterology, 11/06/22 14:38:00 EST, Abdominal pain Normal [facility] Family Medicine Office/Clini c Noteon 11-06-2022 Family Medicine Office/Clinic Note Chief Complaint EST diarrhea and ibs symptoms HPI Staff 22 year old female presents with stomach issues and lightheadedness worse after and has diarrhea every morning states it is hard to work when all you are doing is going to the bathroom states her mother had IBS History of Present Illness 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 Diarrhea (R19.7: Diarrhea, unspecified) referral to [facility] placed since [facility] unable to get her in for a couple months keep food and symptom journal avoid trigger foods Ordered: [facility] External Ambulatory Referral Follow-up With When Contact Information Kayy Fontana MD, [facility], MED Only if needed [address] [place] [phone] Additional Instructions: Problem List/Past Medical History Ongoing No qualifying data Historical No qualifying data Medications Jencycla 0.35 mg oral tablet Allergies amoxicillin (Hives) Social History Tobacco Never (less than 100 in lifetime) Tobacco Use:. Never Smokeless Tobacco Use:., 11/06/2022 Immunizations Vaccine Date Status Comments influenza virus vaccine, inactivated - Not Given Patient Refuses SARS-CoV-2 mRNA (tozinameran 5y-11y) vac - Not Given Patient Refuses Normal [facility] Comment on above: Result Comment: Elec tronically Signed By: Kayy Fontana MD\.br\Date and Time Signed: 11/06/22 14:45 EST Provider Letteron 11-06-2022 Provider Letter (Inserted Image. Trish ble to display) November 06, 2022 DAWN MAJOR [address] [place] [address] [place] [address] DAWN MAJOR T 2000 To Whom It May Concern, Please excuse above patient from work today, 11/06/22. Sincerely, Kayy Fontana MD [facility] Normal [facility] CBC AUTO DIFFon 07-24-2022 BASO # 0.1 103/ul Normal 0.0-0.1 [facility] Comment on above: Performed By: #### C BC #### [facility] [address] [address] [address] Mariela Larkin Basophils/100 WBC (Bld) 0.4 % Normal 0.2-2.0 [facility] Comment on above: Performed By: #### C BC #### [facility] [address] [address] [address] Mariela Larkin EO # 0.3 103/ul Normal 0.0-0.7 [facility] Comment on above: Performed By: #### C BC #### [facility] [address] [address] [address] Mariela Larkin Eosinophils/100 WBC (Bld) 2.2 % Normal 0.9-7.0 [facility] Comment on above: Performed By: #### C BC #### [facility] [address] [address] [address] Mariela Larkin Erythrocyte distribution width (RBC) [Ratio] 16.8 % Critically high 11.0-15.0 [facility] Comment on above: Performed By: #### C BC #### [facility] [address] [address] [address] Mariela Larkin Hematocrit (Bld) [Volume fraction] 30.4 % Critically low 36.0-48.0 [facility] Comment on above: Performed By: #### C BC #### [facility] [address] [address] [address] Mariela Larkin Hemoglobin (Bld) [Mass/Vol] 10.0 g/dL Critically low 12.0-16.0 [facility] Comment on above: Performed By: #### C BC #### [facility] [address] [address] [address] Mariela aLrkin IG # 0.13 10e3/ul Critically high 0.00-0.03 [facility] Comment on above: Performed By: #### C BC #### [facility] [address] [place] [address] Dr. Mariela Larkin IG % 0.9 % Critically high 0.0-0.5 [facility] Comment on above: Performed By: #### C BC #### [facility] [address] [place] [address] Dr. Mariela Larkin LYMPH # 3.1 103/ul Normal 1.2-3.8 [facility] Comment on above: Performed By: #### C BC #### [facility] [address] [place] [address] Dr. Mariela Larkin Lymphocytes/100 WBC (Bld) 22.4 % Normal 20.5-60.0 [facility] Comment on above: Performed By: #### C BC #### [facility] [address] [place] [address] Dr. Mariela Larkin MANUAL DIFF REQ NO Normal [facility] Comment on above: Performed By: #### C BC #### [facility] [address] [place] [address] Dr. Mariela Larkin MCH (RBC) [Entitic mass] 27.0 pg Normal 26.7-34.0 [facility] Comment on above: Performed By: #### C BC #### [facility] [address] [place] [address] Dr. Mariela Larkin MCHC (RBC) [Mass/Vol] 32.9 g/dL Normal 29.9-35.2 [facility] Comment on above: Performed By: #### C BC #### [facility] [address] [place] [address] Dr. Mariela Larkin MCV (RBC) [Entitic vol] 82.2 fL Normal 81.0-99.0 [facility] [facility] Comment on above: Performed By: #### C BC #### [facility] [address] [place] [address] Dr. Mariela Larkin MONO # 0.7 103/ul Normal 0.3-0.8 [facility] Comment on above: Performed By: #### C BC #### [facility] [address] [place] [address] Dr. Mariela Larkin Monocytes/100 WBC (Bld) 5.1 % Normal 1.7-12.0 [facility] Comment on above: Performed By: #### C BC #### [facility] [address] [place] [address] Dr. Mariela Larkin NEUT # 9.6 103/ul Critically high 1.4-6.5 [facility] [place] Comment on above: Performed By: #### C BC #### [facility] [address] [place] [address] Dr. Mariela Larkin Neutrophils/100 WBC (Bld) 69.0 % Normal 43.0-75.0 [facility] [place] Comment on above: Performed By: #### C BC #### [facility] [address] [place] [address] Dr. Mariela Larkin Platelet mean volume (Bld) [Entitic vol] 9.4 fL Critically low 9.5-13.5 [facility] Comment on above: Performed By: #### C BC #### [facility] [address] [place] [address] Dr. Mariela Larkin PLT 243 103/ul Normal 150-450 [facility] Comment on above: Performed By: #### C BC #### [facility] [address] [place] [address] Dr. Mariela Larkin RBC 3.70 106/ul Critically low 4.20-5.40 [facility] Comment on above: Performed By: #### C BC #### [facility] [address] [place] [address] Dr. Mariela Larkin WBC 13.9 103/ul Critically high 4.0-11.0 [facility] Comment on above: Performed By: #### C BC #### [facility] [address] [place] [address] Dr. Mariela Larkin [facility] SARS-CoV-2 (COVID-19) RNA OMAIRA+probe Ql (Unsp spec) Not detected Normal NOT DETECTED [facility] Comment on above: Result Comment: When diagnostic [...] for this test is supported by the Ui Designer of Health and Human Service's declaration that [...] used). Performed By: #### C VDTBH #### [facility] [address] [place] [address] Dr. Mariela Larkin DIRECT COOMBSon 07-23-2022 DIRECT AYANNA Negative Normal [facility] Comment on above: Performed By: #### D IRCMB #### [facility] [address] [place] [address] Dr. Mariela Larkin DRUG SCREEN RAPID (URINE)on 07-23-2022 AMP Negative Normal NEGATIVE [facility] Comment on above: Performed By: #### A FPMAT #### [facility] [address] [place] [address] Dr. Mariela Larkin BAR Negative Normal NEGATIVE [facility] Comment on above: Performed By: #### A FPMAT #### [facility] [address] [place] [address] Dr. Mariela Larkin BUP Negative Normal NEGATIVE [facility] Comment on above: Performed By: #### A FPMAT #### [facility] [address] [place] [address] Dr. Mariela Larkin BZO Negative Normal NEGATIVE [facility] Comment on above: Performed By: #### A FPMAT #### [facility] [address] [place] [address] Dr. Mariela Larkin CECIL Negative Normal NEGATIVE [facility] Comment on above: Performed By: #### A FPMAT #### [facility] [address] [place] [address] Dr. Mariela Larkin CUT-OFFS SEE BELOW Normal [facility] [place] Comment on above: Result Comment: AMP (Amphetamine): 500ng/mL, BAR (Barbituates): 200 ng/mL, BZO (Benzodiazepines): 150 ng/mL, BUP (Buprenorphine): 10 ng/mL, CECIL (Cocaine): 150 ng/mL, mAMP (Methamphetamine): 500 ng/mL, MTD (Methadone): 200 ng/mL, OPI (Opiates): 100 ng/mL, OXY (Oxycodone): 100 ng/mL, PCP (Phencyclidine): 25 ng/mL, PPX (Propoxyphene): 300 ng/mL, THC (Cannabinoids): 50 ng/mL, TCA (Trycyclic Antidepressants): 300 ng/mL Performed By: #### A FPMAT #### [facility] [address] [place] [address] Dr. Mariela Larkin DRUG CUT HEADER DRUG CLASS TEST SYST EM CUT-OFF CONCENTRATIONS ARE FOLLOWS: Normal [facility] Comment on above: Performed By: #### A FPMAT #### [facility] [address] [place] [address] Dr. Mariela Larkin mAMP Negative Normal NEGATIVE [facility] Comment on above: Performed By: #### A FPMAT #### [facility] [address] [place] [address] Dr. Mariela Larkin MTD Negative Normal NEGATIVE [facility] Comment on above: Performed By: #### A FPMAT #### [facility] [address] [place] [address] Dr. Mariela Larkin OPI Negative Normal NEGATIVE [facility] Comment on above: Performed By: #### A FPMAT #### [facility] [address] [place] [address] Dr. Mariela Larkin OXY Negative Normal NEGATIVE [facility] Comment on above: Performed By: #### A FPMAT #### [facility] [address] [place] [address] Dr. Mariela Larkin PCP Negative Normal NEGATIVE [facility] Comment on above: Performed By: #### A FPMAT #### [facility] [address] [place] [address] Dr. Mariela Larkin PPX Negative Normal NEGATIVE [facility] Comment on above: Performed By: #### A FPMAT #### [facility] [address] [place] [address] Dr. Mariela Larkin TCA Negative Normal NEGATIVE [facility] Comment on above: Performed By: #### A FPMAT #### [facility] [address] [place] [address] Dr. Mariela Larkin THC Positive Abnormal NEGATIVE [facility] Comment on above: Performed By: #### A FPMAT #### [facility] [address] [place] [address] Dr. Mariela Larkin TYPE AND SCREENon 07-23-2022 TYPE AND SCREEN Antibody Screen NEGA TIVE Blood Bank Notes orignal specimen hemolyzed, repeat testing performed on redraw. Hemolysis Blood Bank Notes could cause false positive reaction. ABO Rh Typing AB Rh Positive Normal [facility] Comment on above: Performed By: #### C VDTBH #### [facility] [address] [place] [address] Dr. Mariela Larkin CBC AUTO DIFFon 07-22-2022 BASO # 0.0 103/ul Normal 0.0-0.1 [facility] Comment on above: Performed By: #### C BC #### [facility] [address] [place] [address] Dr. Mariela Larkin Basophils/100 WBC (Bld) 0.2 % Normal 0.2-2.0 [facility] Comment on above: Performed By: #### C BC #### [facility] [address] [place] [address] Dr. Mariela Larkin EO # 0.2 103/ul Normal 0.0-0.7 [facility] Comment on above: Performed By: #### C BC #### [facility] [address] [place] [address] Dr. Mariela Larkin Eosinophils/100 WBC (Bld) 1.0 % Normal 0.9-7.0 [facility] [place] Comment on above: Performed By: #### C BC #### [facility] [address] [place] [address] Dr. Mariela Larkin Erythrocyte distribution width (RBC) [Ratio] 16.3 % Critically high 11.0-15.0 [facility] Comment on above: Performed By: #### C BC #### [facility] [address] [place] [address] Dr. Mariela Larkin Hematocrit (Bld) [Volume fraction] 34.0 % Critically low 36.0-48.0 [facility] Comment on above: Performed By: #### C BC #### [facility] [address] [place] [address] Dr. Mariela Larkin Hemoglobin (Bld) [Mass/Vol] 11.0 g/dL Critically low 12.0-16.0 [facility] Comment on above: Performed By: #### C BC #### [facility] [address] [place] [address] Dr. Mariela Larkin IG # 0.14 10e3/ul Critically high 0.00-0.03 [facility] Comment on above: Performed By: #### C BC #### [facility] [address] [place] [address] Dr. Mariela Larkin IG % 0.9 % Critically high 0.0-0.5 [facility] Comment on above: Performed By: #### C BC #### [facility] [address] [place] [address] Dr. Mariela Larkin LYMPH # 2.5 103/ul Normal 1.2-3.8 [facility] Comment on above: Performed By: #### C BC #### [facility] [address] [place] [address] Dr. Mariela Larkin Lymphocytes/100 WBC (Bld) 15.9 % Critically low 20.5-60.0 [facility] Comment on above: Performed By: #### C BC #### [facility] [address] [place] [address] Dr. Mariela Larkin MANUAL DIFF REQ NO Normal [facility] Comment on above: Performed By: #### C BC #### [facility] [address] [place] [address] Dr. Mariela Larkin MCH (RBC) [Entitic mass] 26.2 pg Critically low 26.7-34.0 [facility] Comment on above: Performed By: #### C BC #### [facility] [address] [place] [address] Dr. Mariela Larkin MCHC (RBC) [Mass/Vol] 32.4 g/dL Normal 29.9-35.2 [facility] Comment on above: Performed By: #### C BC #### [facility] [address] [place] [address] Dr. Mariela Larkin MCV (RBC) [Entitic vol] 81.0 fL Normal 81.0-99.0 [facility] Comment on above: Performed By: #### C BC #### [facility] [address] [place] [address] Dr. Mariela Larkin MONO # 0.9 103/ul Critically high 0.3-0.8 [facility] Comment on above: Performed By: #### C BC #### [facility] [address] [place] [address] Dr. Mariela Larkin Monocytes/100 WBC (Bld) 5.5 % Normal 1.7-12.0 [facility] Comment on above: Performed By: #### C BC #### [facility] [address] [place] [address] Dr. Mariela Larkin NEUT # 11.9 103/ul Critically high 1.4-6.5 [facility] Comment on above: Performed By: #### C BC #### [facility] [address] [place] [address] Dr. Mariela Larkin Neutrophils/100 WBC (Bld) 76.5 % Critically high 43.0-75.0 [facility] Comment on above: Performed By: #### C BC #### [facility] [address] [place] [address] Dr. Mariela Larkin Platelet mean volume (Bld) [Entitic vol] 9.8 fL Normal 9.5-13.5 [facility] Comment on above: Performed By: #### C BC #### [facility] [address] [place] [address] Dr. Mariela Larkin PLT 268 103/ul Normal 150-450 [facility] Comment on above: Performed By: #### C BC #### [facility] [address] [place] [address] Dr. Mariela Larkin RBC 4.20 106/ul Normal 4.20-5.40 [facility] Comment on above: Performed By: #### C BC #### [facility] [address] [place] [address] Dr. Mariela Larkin WBC 15.6 103/ul Critically high 4.0-11.0 [facility] Comment on above: Performed By: #### C BC #### [facility] [address] [place] [address] Dr. Mariela Larkin GROUP B STREP CULTUREon [...] S F Tetracycline >=16 R F Normal [facility] Comment on above: Performed By: #### C VDTBH #### [facility] [address] [place] [address] Dr. Mariela Larkin CHLAMYDIA/GONOCOCCUS OMAIRA (SW AB/URINE/PAPon 07-12-2022 Chlamydia trachomatis, OMAIRA Negative Normal Negative [facility] Comment on above: Performed By: #### C VDTBH #### [facility] [address] [place] [address] Dr. Mariela Larkin Neisseria gonorrhoeae, OMAIRA Negative Normal Negative [facility] Comment on above: Performed By: #### C VDTBH #### [facility] [address] [place] [address] Dr. Mariela Larkin VAGINITIS/VAGINOSIS DNA PROB Kulwinder 07-11-2022 Marilynn species Positive Abnormal Negative [facility] Comment on above: Performed By: #### C VDTBH #### [facility] [address] [place] [address] Dr. Mariela Larkin Gardnerella vaginalis Negative Normal Negative [facility] Comment on above: Performed By: #### C VDTBH #### [facility] [address] [place] [address] Dr. Mariela Larkin Trichomonas vaginalis Negative Normal Negative [facility] Comment on above: Performed By: #### C VDTBH #### [facility] [address] [place] [address] Dr. Mariela Larkin UA (CLEAN/CATCH) FULL FASHIONED GARMENT KNITTER/MICRO I F IND.on 07-04-2022 Bilirubin Ql (U) Negative Normal NEGATIVE [facility] Comment on above: Performed By: #### A FPMAT #### [facility] [address] [place] [address] Dr. Mariela Larkin Clarity (U) CLEAR Normal CLEAR [facility] Comment on above: Performed By: #### A FPMAT #### [facility] [address] [place] [address] Dr. Mariela Larkin Color (U) YELLOW Normal YELLOW [facility] Comment on above: Performed By: #### A FPMAT #### [facility] [address] [place] [address] Dr. Mariela Larkin Glucose Ql (U) Negative Normal NEGATIVE [facility] Comment on above: Performed By: #### A FPMAT #### [facility] [address] [place] [address] Dr. Mariela Larkin Hemoglobin Ql (U) Negative Normal NEGATIVE [facility] Comment on above: Performed By: #### A FPMAT #### [facility] [address] [place] [address] Dr. Mariela Larkin Ketones Ql (U) 15 mg/dl Abnormal NEGATIVE [facility] Comment on above: Performed By: #### A FPMAT #### [facility] [address] [place] [address] Dr. Mariela Larkin LEUKOCYTES Negative Normal NEGATIVE [facility] Comment on above: Performed By: #### A FPMAT #### [facility] [address] [place] [address] Dr. Mariela Larkin Nitrite Ql (U) Negative Normal NEGATIVE [facility] Comment on above: Performed By: #### A FPMAT #### [facility] [address] [place] [address] Dr. Mariela Larkin pH (U) 7.5 [pH] Normal 5-9 [facility] Comment on above: Performed By: #### A FPMAT #### [facility] [address] [place] [address] Dr. Mariela Larkin SPEC GRAVITY 1.020 Normal 1.005-<=1. 025 [facility] Comment on above: Performed By: #### A FPMAT #### [facility] [address] [place] [address] Dr. Mariela Larkin UA PROTEIN TRACE Normal NEGATIVE/ TRACE [facility] Comment on above: Performed By: #### A FPMAT #### [facility] [address] [place] [address] Dr. Mariela Larkin UR MICRO IND NOT INDICATED Normal [facility] Comment on above: Performed By: #### A FPMAT #### [facility] [address] [place] [address] Dr. Mariela Larkin Urobilinogen Qn (U) 1.0 {Vidya'U}/dL Normal 0.2 - 1. 0 [facility] Comment on above: Performed By: #### A FPMAT #### [facility] [address] [place] [address] Dr. Mariela Larkin US PREG GROWTHon 06-21-2022 [...] by: YENNI ROSE Date: 2022-06-21 18:37 Normal [facility] GLUCOSE - 1HRon 05-07-2022 Glucose [Mass/Vol] 120 mg/dL Critically high 74-106 [facility] Comment on above: Performed By: #### G LU1HR #### [facility] [address] [place] [address] Dr. Mariela Larkin HEMOGRAM AND PLATELon 2021 Hematocrit (Bld) [Volume fraction] 32.6 % Critically low 36.0-48.0 [facility] Comment on above: Performed By: #### A FPMAT #### [facility] [address] [place] [address] Dr. Mariela Larkin Hemoglobin (Bld) [Mass/Vol] 10.5 g/dL Critically low 12.0-16.0 [facility] Comment on above: Performed By: #### A FPMAT #### [facility] [address] [place] [address] Dr. Mariela Larkin MCH (RBC) [Entitic mass] 28.2 pg Normal 26.7-34.0 [facility] Comment on above: Performed By: #### A FPMAT #### [facility] [address] [place] [address] Dr. Mariela Larkin MCHC (RBC) [Mass/Vol] 32.2 g/dL Normal 29.9-35.2 [facility] Comment on above: Performed By: #### A FPMAT #### [facility] [address] [place] [address] Dr. Mariela Larkin MCV (RBC) [Entitic vol] 87.4 fL Normal 81.0-99.0 [facility] Comment on above: Performed By: #### A FPMAT #### [facility] [address] [place] [address] Dr. Mariela Larkin PLT 242 103/ul Normal 150-450 [facility] Comment on above: Performed By: #### A FPMAT #### [facility] [address] [place] [address] Dr. Mariela Larkin RBC 3.73 106/ul Critically low 4.20-5.40 [facility] Comment on above: Performed By: #### A FPMAT #### [facility] [address] [place] [address] Dr. Mariela Larkin WBC 13.2 103/ul Critically high 4.0-11.0 [facility] Comment on above: Performed By: #### A FPMAT #### [facility] [address] [place] [address] Dr. Mariela Larkin UA (CLEAN/CATCH) FULL FASHIONED GARMENT KNITTER/MICRO I F IND.on 04-24-2022 Bilirubin Ql (U) Negative Normal NEGATIVE [facility] Comment on above: Performed By: #### U ACSIND #### [facility] [address] [place] [address] Dr. Mariela Larkin Clarity (U) CLEAR Normal CLEAR [facility] Comment on above: Performed By: #### U ACSIND #### [facility] [address] [place] [address] Dr. Mariela Larkin Color (U) YELLOW Normal YELLOW [facility] Comment on above: Performed By: #### U ACSIND #### [facility] [address] [address] [address] Mariela Larkin Glucose Ql (U) Negative Normal NEGATIVE [facility] Comment on above: Performed By: #### U ACSIND #### [facility] [address] [address] [address] Mariela Larkin Hemoglobin Ql (U) Negative Normal NEGATIVE [facility] Comment on above: Performed By: #### U ACSIND #### [facility] [address] [address] [address] Mariela Larkin Ketones Ql (U) TRACE Abnormal NEGATIVE [facility] Comment on above: Performed By: #### U ACSIND #### [facility] [address] [place] [address] Dr. Mariela Larkin LEUKOCYTES Negative Normal NEGATIVE [facility] Comment on above: Performed By: #### U ACSIND #### [facility] [address] [place] [address] Dr. Mariela Larkin Nitrite Ql (U) Negative Normal NEGATIVE [facility] Comment on above: Performed By: #### U ACSIND #### [facility] [address] [place] [address] Dr. Mariela Larkin pH (U) 8.0 [pH] Normal 5-9 [facility] Comment on above: Performed By: #### U ACSIND #### [facility] [address] [place] [address] Dr. Mariela Larkin SPEC GRAVITY 1.015 Normal 1.005-<=1. 025 [facility] Comment on above: Performed By: #### U ACSIND #### [facility] [address] [place] [address] Dr. Mariela Larkin UA PROTEIN Negative Normal NEGATIVE/ TRACE [facility] Comment on above: Performed By: #### U ACSIND #### [facility] [address] [place] [address] Dr. Mariela Larkin UR MICRO IND NOT INDICATED Normal [facility] Comment on above: Performed By: #### U ACSIND #### [facility] [address] [place] [address] Dr. Mariela Larkin Urobilinogen Qn (U) 0.2 {Vidya'U}/dL Normal 0.2 - 1. 0 [facility] Comment on above: Performed By: #### U ACSIND #### [facility] [address] [place] [address] [id number] [address] Mariela Larkin US PREG ANATOMY SINGLEon [...] MARTIN VALVERDE Date: 2022-04-11 16:25 Normal [facility] AFP MATERNAL FOR SPINA BIFID Aon 03-09-2022 AFP MoM 1.59 Normal [facility] Comment on above: Performed By: #### A FPMAT #### [facility] [address] [place], [place] [address] Dr. Mariela Larkin AFP Value 95.6 ng/mL Normal [facility] Comment on above: Performed By: #### A FPMAT #### [facility] [address] [address] [address] Mariela Larkin AFP, Serum for Spina Bifida Report Normal [facility] Comment on above: Performed By: #### A FPMAT #### [facility] [address] [address] [address] Mariela Larkin Comment Comment Normal [facility] Comment on above: Result Comment: Maryanne Hagen, Ph.D., [facility] Director . References: Available Upon Request. . Multiples Of Median Cutoffs For AFP Elevations Moran 2.5 Black 2.8 IDD 2.0 Twins 4.5 Abbreviation Definitions IDD - Insulin Dep Diabetes OSBR - Open Spina Bifida Risk . For further inquiries contact [facility] at [phone]. . This test was developed and its performance characteristics determined by [email or web address]. It has not been cleared or approved by the Food and Drug Administration. Performed By: #### A FPMAT #### [facility] [address] [address] [address] Mariela Larkin Gest Age Collection Date 18.4 weeks Normal [facility] Comment on above: Performed By: #### A FPMAT #### [facility] [address] [place] [address] Dr. Mariela Larkin Gestat, Age Based on MARILUZ Normal [facility] [facility] [place] Comment on above: Result Comment: 07/11 Recalculations are not recommended when gestational dating by LMP and ultrasound are within 10 days. Performed By: #### A FPMAT #### [facility] [address] [address] [address] Mariela Larkin Insulin Dep Diabetes No Normal [facility] Comment on above: Performed By: #### A FPMAT #### [facility] [address] [place] [address] Dr. Mariela Larkin Interpretation Comment Normal [facility] [place] Comment on above: Result Comment: Inte rpretation: [...] Customer Services to discuss available options. The [employer] recommends amniocentesis be offered to women age 35 and older. Performed By: #### A FPMAT #### [facility] [address] [place] [address] Dr. Mariela Larkin [age] [facility] [place] Comment on above: Performed By: #### A FPMAT #### [facility] [address] [place] [address] Dr. Mariela Larkin Multiple Gestation No Normal [facility] [place] Comment on above: Performed By: #### A FPMAT #### [facility] [address] [place] [address] Dr. Mariela Larkin OSBR Risk 1 IN 2154 Normal [facility] [place] Comment on above: Performed By: #### A FPMAT #### [facility] [address] [place] [address] Dr. Mariela Larkin PDF . Normal [facility] [place] Comment on above: Performed By: #### A FPMAT #### [facility] [address] [place] [address] Dr. Mariela Larkin Race Normal [facility] [place] Comment on above: Performed By: #### A FPMAT #### [facility] [address] [place] [address] Dr. Mariela Larkin Test Results: Negative Normal [facility] [place] Comment on above: Performed By: #### A FPMAT #### [facility] [address] [place] [address] Dr. Mariela Larkin HEP B SURFACE ANTIGEN SCREEN on 01-27-2022 HBsAg Screen Negative Normal Negative [facility] [place] Comment on above: Performed By: #### C VDTBH #### [facility] [address] [place] [address] Dr. Mariela Larkin HEPATITIS C VIRUS AB W/ REFL EX QUANTon 01-27-2022 HCV AB <0.1 Normal 0.0-0.9 [facility] [place] Comment on above: Performed By: #### A FPMAT #### [facility] [address] [place] [address] Dr. Mariela Larkin Interpretation: Comment Normal [facility] Comment on above: Result Comment: Nega tive Not infected with HCV, unless recent infection is suspected or other evidence exists to indicate HCV infection. Performed By: #### A FPMAT #### [facility] [address] [place] [address] Dr. Mariela Larkin HIV 1 AND 2 WITH REFLEXon HIV Screen 4th Generation wRfx Non-Reactive Normal Non Reactive [facility] Comment on above: Result Comment: HIV Negative HIV-1/HIV-2 antibodies and HIV-1 p24 antigen were NOT detected. There is no laboratory evidence of HIV infection. Performed By: #### C VDTBH #### [facility] [address] [place] [address] Dr. Mariela Larkin RPR QUANTon 01-27-2022 Rapid Plasma Reagin, Quant Non-Reactive Normal NonRea<1:1 [facility] [place] Comment on above: Result Comment: Ottoniel kwon Note: This test does not meet current guidelines for screening and diagnosis of syphilis. This test is intended for following treatment response in patients being treated for syphilis infection. To screen for syphilis infection, a reflex cascade that includes both RPR and a treponema-specific assay should be utilized, such as Treponema pallidum (Syphilis) Screening Hartley (149672) or Rapid Plasma Reagin (RPR) Test With Reflex to Quantitative RPR and Confirmatory Treponema pallidum Antibodies (378013). Performed By: #### R PRQ #### [facility] [address] [place] [address] Dr. Mariela Larkin RUBELLA AB IGGon 01-27-2022 Rubella Antibodies, IgG 3.63 index Normal Immu ne >0.99 [facility] [place] Comment on above: Result Comment: Non- immune <0.90 Equivocal 0.90 - 0.99 Immune >0.99 Performed By: #### A FPMAT #### [facility] [address] [place] [address] Dr. Mariela Larkin CBC AUTO DIFFon 01-26-2022 BASO # 0.0 103/ul Normal 0.0-0.1 [facility] [place] Comment on above: Performed By: #### A FPMAT #### [facility] [address] [place] [address] Dr. Mariela Larkin Basophils/100 WBC (Bld) 0.2 % Normal 0.2-2.0 [facility] Comment on above: Performed By: #### A FPMAT #### [facility] [address] [place] [address] Dr. Mariela Larkin EO # 0.2 103/ul Normal 0.0-0.7 [facility] [place] Comment on above: Performed By: #### A FPMAT #### [facility] [address] [place] [address] Dr. Mariela Larkin Eosinophils/100 WBC (Bld) 2.5 % Normal 0.9-7.0 [facility] [place] Comment on above: Performed By: #### A FPMAT #### [facility] [address] [place] [address] Dr. Mariela Larkin Erythrocyte distribution width (RBC) [Ratio] 14.1 % Normal 11.0-15.0 [facility] [place] Comment on above: Performed By: #### A FPMAT #### [facility] [address] [place] [address] Dr. Mariela Larkin Hematocrit (Bld) [Volume fraction] 33.1 % Critically low 36.0-48.0 [facility] [place] Comment on above: Performed By: #### A FPMAT #### [facility] [address] [place] [address] Dr. Mariela Larkin Hemoglobin (Bld) [Mass/Vol] 11.1 g/dL Critically low 12.0-16.0 [facility] [place] Comment on above: Performed By: #### A FPMAT #### [facility] [address] [place] [address] Dr. Mariela Larkin IG # 0.03 10e3/ul Normal 0.00-0.03 [facility] [place] Comment on above: Performed By: #### A FPMAT #### [facility] [address] [place] [address] Dr. Mariela Larkin IG % 0.3 % Normal 0.0-0.5 [facility] [place] Comment on above: Performed By: #### A FPMAT #### [facility] [address] [place] [address] Dr. Mariela Larkin LYMPH # 1.1 103/ul Critically low 1.2-3.8 [facility] [place] Comment on above: Performed By: #### A FPMAT #### [facility] [address] [place] [address] Dr. Mariela Larkin Lymphocytes/100 WBC (Bld) 11.7 % Critically low 20.5-60.0 [facility] [place] Comment on above: Performed By: #### A FPMAT #### [facility] [address] [place] [address] Dr. Mariela Larkin MANUAL DIFF REQ NO Normal [facility] [place] Comment on above: Performed By: #### A FPMAT #### [facility] [address] [place] [address] Dr. Mariela Larkni MCH (RBC) [Entitic mass] 29.1 pg Normal 26.7-34.0 [facility] [place] Comment on above: Performed By: #### A FPMAT #### [facility] [address] [place] [address] Dr. Mariela Larkin MCHC (RBC) [Mass/Vol] 33.5 g/dL Normal 29.9-35.2 [facility] [place] Comment on above: Performed By: #### A FPMAT #### [facility] [address] [place] [address] Dr. Mariela Larkin MCV (RBC) [Entitic vol] 86.9 fL Normal 81.0-99.0 [facility] Comment on above: Performed By: #### A FPMAT #### [facility] [address] [place] [address] Dr. Mariela Larkin MONO # 0.4 103/ul Normal 0.3-0.8 [facility] [place] Comment on above: Performed By: #### A FPMAT #### [facility] [address] [place] [address] Dr. Mariela Larkin Monocytes/100 WBC (Bld) 4.0 % Normal 1.7-12.0 [facility] Comment on above: Performed By: #### A FPMAT #### [facility] [address] [place] [address] Dr. Mariela Larkin NEUT # 7.5 103/ul Critically high 1.4-6.5 [facility] [place] Comment on above: Performed By: #### A FPMAT #### [facility] [address] [place] [address] Dr. Mariela Larkin Neutrophils/100 WBC (Bld) 81.3 % Critically high 43.0-75.0 [facility] [place] Comment on above: Performed By: #### A FPMAT #### [facility] [address] [place] [address] Dr. Mariela Larkin Platelet mean volume (Bld) [Entitic vol] 9.6 fL Normal 9.5-13.5 [facility] [place] Comment on above: Performed By: #### A FPMAT #### [facility] [address] [place] [address] Dr. Mariela Larkin PLT 225 103/ul Normal 150-450 [facility] Comment on above: Performed By: #### A FPMAT #### [facility] [address] [place] [address] Dr. Mariela Larkin RBC 3.81 106/ul Critically low 4.20-5.40 [facility] [place] Comment on above: Performed By: #### A FPMAT #### [facility] [address] [place] [address] Dr. Mariela Larkin WBC 9.3 103/ul Normal 4.0-11.0 [facility] [place] Comment on above: Performed By: #### A FPMAT #### [facility] [address] [place] [address] Dr. Mariela Larkin CULTURE URINEon 01-26-2022 CULTURE URINE Culture Observations : No growth Normal [facility] [place] Comment on above: Performed By: #### U RCX #### [facility] [address] [place] [address] Dr. Mariela Larkin GLYCOHEMOGLOBIN A1Con 2021 ADA RECOMMENDATION SEE BELOW Normal [facility] [place] Comment on above: Result Comment: ADA RECOMMENDED LIMIT 4.0 - 6.0 ADA THERAPEUTIC TARGET < 7.0 ACTION SUGGESTED > 7.0 Performed By: #### A FPMAT #### [facility] [address] [place] [address] Dr. Marilea Larkin Glucose [Mass/Vol] 94 mg/dL Normal [facility] [place] Comment on above: Performed By: #### A FPMAT #### [facility] [address] [place] [address] Dr. Mariela Larkin HbA1c (Bld) [Mass fraction] 4.9 % Normal 4.5-6.2 [facility] [place] Comment on above: Performed By: #### A FPMAT #### [facility] [address] [place] [address] Dr. Mariela Larkin DHRUV BOX TEST PT SEND OUTo n 01-26-2022 SENT TO REF LAB 01/26/2022 Normal [facility] [place] Comment on above: Performed By: #### C VDTBH #### [facility] [address] [place] [address] Dr. Mariela Larkin TYPE AND SCREENon 01-26-2022 TYPE AND SCREEN Negative Normal [facility] [place] Comment on above: Performed By: #### T NS #### [facility] [address] [place] [address] Dr. Mariela Larkin US PREG TVon 12-25-2021 [...] by: MARTIN VALVERDE Date: 2021-12-25 11:24 Normal [facility] [place] Vital Signs Date Time Vital Sign Value Performing Clinician Facility 04-22-2025 10:57-0400 Body mass index (BMI) [Ratio] 23.5 kg/m2 Demarco Kirby DO Work Phone: [facility] 04-22-2025 10:57-0400 Body weight 58.29 kg Demarco Kirby DO Work Phone: [facility] 04-22-2025 10:57-0400 Diastolic blood pressure 70 mm[Hg] Demarco Kirby DO Work Phone: [facility] 04-22-2025 10:57-0400 Systolic blood pressure 102 mm[Hg] Demarco Kirby DO Work Phone: [facility] 03-29-2025 15:55-0400 Body mass index (BMI) [Ratio] 22.54 kg/m2 Cira BROWN Work Phone: [facility] 03-29-2025 15:55-0400 Body weight 55.91 kg Cira BROWN Work Phone: [facility] 03-29-2025 15:55-0400 Diastolic blood pressure 64 mm[Hg] Cira BROWN Work Phone: [facility] 03-29-2025 15:55-0400 Systolic blood pressure 116 mm[Hg] Cira BROWN Work Phone: [facility] 02-22-2025 14:10-0400 Body mass index (BMI) [Ratio] 21.29 kg/m2 Demarco Kirby DO Work Phone: [facility] 02-22-2025 14:10-0400 Body weight 52.8 kg Demarco Kirby DO Work Phone: [facility] 02-22-2025 14:10-0400 Diastolic blood pressure 66 mm[Hg] Demarco Blackmano DO Work Phone: [facility] 02-22-2025 14:10-0400 Systolic blood pressure 106 mm[Hg] Demarco Chamberszio DO Work Phone: [facility] 01-30-2025 11:21-0400 Body height 154.94 cm Divina Araya DO Work Phone: [facility] 01-30-2025 11:21-0400 Body weight 49.89 kg Geena. George Araya DO Work Phone: [facility] 01-30-2025 10:49-0400 Diastolic blood pressure 66 mm[Hg] Divina Araya DO Work Phone: [facility] 01-30-2025 10:49-0400 Heart rate 67 /min GSofia Araya DO Work Phone: [facility] 01-30-2025 10:49-0400 Respiratory rate 18 /min Divina Araya DO Work Phone: [facility] 01-30-2025 10:49-0400 SaO2% (BldA) [Mass fraction] 99 % Divina Araya DO Work Phone: [facility] 01-30-2025 10:49-0400 Systolic blood pressure 103 mm[Hg] Divina Araya DO Work Phone: [facility] 01-30-2025 08:26-0400 Body temperature 98.2 [degF] Divina Araya DO Work Phone: [facility] 01-30-2025 08:23-0400 Body height 154.94 cm Divina Araya DO Work Phone: [facility] 01-30-2025 08:23-0400 Body weight 51.8 kg Divina Araya DO Work Phone: [facility] 01-25-2025 10:37-0400 Body mass index (BMI) [Ratio] 20.58 kg/m2 Susan Loomisly [employer] SUPER[employer] Work Phone: [facility] 01-25-2025 10:37-0400 Body weight 51.03 kg Susan Calverterly [employer]CH[employer] SUPERVISOR Work Phone: [facility] 01-25-2025 10:37-0400 Diastolic blood pressure 60 mm[Hg] Susan Woodrow [employer]CH[employer] SUPERVISOR Work Phone: [facility] 01-25-2025 10:37-0400 Systolic blood pressure 100 mm[Hg] Susan Calverterly [employer]CH[employer] SUPERVISOR Work Phone: [facility] 12-07-2024 16:28-0400 Body mass index (BMI) [Ratio] 18.68 kg/m2 Demarco Kirby DO Work Phone: [facility] 12-07-2024 16:28-0400 Body weight 46.32 kg Demarco Kirby DO Work Phone: [facility] 12-07-2024 16:28-0400 Diastolic blood pressure 68 mm[Hg] Demarco Kirby DO Work Phone: [facility] 12-07-2024 16:28-0400 Systolic blood pressure 110 mm[Hg] Demarco Kirby DO Work Phone: [facility] 11-05-2024 13:27-0500 Body mass index (BMI) [Ratio] 17.96 kg/m2 Noms Nurse [facility] 11-05-2024 13:27-0500 Body weight 44.54 kg Nom Nurse [facility] 11-05-2024 13:27-0500 Diastolic blood pressure 60 mm[Hg] Nom Nurse [facility] 11-05-2024 13:27-0500 Systolic blood pressure 100 mm[Hg] Nom Nurse [facility] 09-21-2024 20:40-0500 Body temperature 97.9 [degF] Paramjit Tupa DO Work Phone: [facility] 09-21-2024 20:40-0500 Diastolic blood pressure 67 mm[Hg] Paramjit Tupa DO Work Phone: [facility] 09-21-2024 20:40-0500 Heart rate 67 /min Paramjit Gallegospa DO Work Phone: [facility] 09-21-2024 20:40-0500 Respiratory rate 20 /min Paramjit Gallegospa DO Work Phone: [facility] 09-21-2024 20:40-0500 SaO2% (BldA) [Mass fraction] 96 % Paramjit Gallegospa DO Work Phone: [facility] 09-21-2024 20:40-0500 Systolic blood pressure 112 mm[Hg] Paramjit Gallegospa DO Work Phone: [facility] 09-21-2024 20:39-0500 Body height 157.48 cm Paramjit Gallegospa DO Work Phone: [facility] 09-21-2024 20:39-0500 Body weight 45.35 kg Paramjit Gallegospa DO Work Phone: [facility] 08-25-2024 15:22-0500 Body mass index (BMI) [Ratio] 17.01 kg/m2 Anum Cody [employer]CH[employer] SUPERVISOR Work Phone: [facility] 08-25-2024 15:22-0500 Body temperature 97.7 [degF] Anum Cody [employer] MECH[employer] SUPERVISOR Work Phone: [facility] 08-25-2024 15:22-0500 Body weight 42.19 kg Anum Cody [employer]CH[employer] SUPERVISOR Work Phone: [facility] 08-25-2024 15:22-0500 Diastolic blood pressure 80 mm[Hg] Anummckenna Cody [employer] MECH[employer] SUPERVISOR Work Phone: [facility] 08-25-2024 15:22-0500 Heart rate 92 /min Anummckenna Cody [employer] MECH[employer] SUPERVISOR Work Phone: [facility] 08-25-2024 15:22-0500 SaO2% (BldA) [Mass fraction] 99 % Anum Cody [employer]CH[employer] SUPERVISOR Work Phone: [facility] 08-25-2024 15:22-0500 Systolic blood pressure 120 mm[Hg] Anum Cody [employer]CH[employer] SUPERVISOR Work Phone: [facility] 08-02-2024 09:20-0500 Body mass index (BMI) [Ratio] 17.01 kg/m2 Carlos Zaragoza MD, IBCLC Work Phone: [facility] 08-02-2024 09:20-0500 Body temperature 97.81 [degF] Carlos Zaragoza MD, IBCLC Work Phone: [facility] 08-02-2024 09:20-0500 Body weight 42.19 kg Carlos Zaragoza MD, IBCLC Work Phone: [facility] 08-02-2024 09:20-0500 Diastolic blood pressure 60 mm[Hg] Carlos Zaragoza MD, IBCLC Work Phone: [facility] 08-02-2024 09:20-0500 Heart rate 91 /min Carlos Zaragoza MD, IBCLC Work Phone: [facility] 08-02-2024 09:20-0500 SaO2% (BldA) [Mass fraction] 99 % Carlos Zaragoza MD, IBCLC Work Phone: [facility] 08-02-2024 09:20-0500 Systolic blood pressure 112 mm[Hg] Carlos Zaragoza MD, IBCLC Work Phone: [facility] 06-29-2024 10:37-0400 Body height 156.21 cm DO Divina Araya Work Phone: [facility] 06-29-2024 10:37-0400 Body temperature 98 [degF] DO Divina Araya Work Phone: [facility] 06-29-2024 10:37-0400 Body weight 40.9 kg DO Divina Araya Work Phone: [facility] 06-29-2024 10:37-0400 Diastolic blood pressure 68 mm[Hg] DO Divina Araya Work Phone: [facility] 06-29-2024 10:37-0400 Heart rate 76 /min DO Divina Araya Work Phone: [facility] 06-29-2024 10:37-0400 Respiratory rate 16 /min DO Divina Araya Work Phone: [facility] 06-29-2024 10:37-0400 SaO2% (BldA) [Mass fraction] 100 % DO Divina Araya Work Phone: [facility] 06-29-2024 10:37-0400 Systolic blood pressure 104 mm[Hg] DO Divina Araya Work Phone: [facility] 04-29-2024 15:45-0400 Body height 157.5 cm Zachary Araya DO Work Phone: [facility] 04-29-2024 15:45-0400 Body mass index (BMI) [Ratio] 16.97 kg/m2 Zachary Araya DO Work Phone: [facility] 04-29-2024 15:45-0400 Body temperature 98.71 [degF] Zachary Araya DO Work Phone: [facility] 04-29-2024 15:45-0400 Body weight 42.09 kg Zachary Araya DO Work Phone: [facility] 04-29-2024 15:45-0400 Diastolic blood pressure 64 mm[Hg] Zachary Araya DO Work Phone: [facility] 04-29-2024 15:45-0400 Heart rate 83 /min Zachary Araya DO Work Phone: [facility] 04-29-2024 15:45-0400 SaO2% (BldA) [Mass fraction] 98 % Zachary Araya DO Work Phone: [facility] 04-29-2024 15:45-0400 Systolic blood pressure 116 mm[Hg] Zachary Araya DO Work Phone: [facility] 04-17-2024 13:15-0400 Diastolic blood pressure 62 mm[Hg] DO Divina Araya Work Phone: [facility] 04-17-2024 13:15-0400 Heart rate 71 /min DO Divina Araya Work Phone: [facility] 04-17-2024 13:15-0400 Respiratory rate 18 /min DO Divina Araya Work Phone: [facility] 04-17-2024 13:15-0400 SaO2% (BldA) [Mass fraction] 97 % DO Divina Araya Work Phone: 9(145)030-916224 [place] [address] 04-17-2024 13:15-0400 Systolic blood pressure 113 mm[Hg] DO Divina Araya Work Phone: 3(442)923-724424 [place] [address] 04-17-2024 09:49-0400 Body height 154.94 cm DO Divina Araya Work Phone: [facility] 04-17-2024 09:49-0400 Body temperature 98 [degF] DO Divina Araya Work Phone: 5(475)722-664124 [place] [address] 04-17-2024 09:49-0400 Body weight 42.1 kg DO Divina Araya Work Phone: [facility] 10-13-2023 14:07-0500 Body temperature 98.4 [degF] DO Divina Araya Work Phone: [facility] 10-13-2023 14:07-0500 Diastolic blood pressure 56 mm[Hg] DO Divina Araya Work Phone: [facility] 10-13-2023 14:07-0500 Heart rate 78 /min DO Divina Araya Work Phone: [facility] 10-13-2023 14:07-0500 Respiratory rate 18 /min DO Divina Araya Work Phone: [facility] 10-13-2023 14:07-0500 SaO2% (BldA) [Mass fraction] 100 % DO Divina Araya Work Phone: [facility] 10-13-2023 14:07-0500 Systolic blood pressure 103 mm[Hg] DO Divina Araya Work Phone: [facility] 10-13-2023 11:52-0500 Body height 154.94 cm DO Divina Araya Work Phone: [facility] 10-13-2023 11:52-0500 Body weight 43 kg DO Divina Araya Work Phone: 7(222)308-394524 [place] [address] 09-28-2023 16:24-0500 Body temperature 98.1 [degF] DO Divina Araya Work Phone: 2(001)572-220724 [place] [address] 09-28-2023 16:24-0500 Diastolic blood pressure 62 mm[Hg] DO Divina Araya Work Phone: [facility] 09-28-2023 16:24-0500 Heart rate 84 /min DO Divina Araya Work Phone: 2(047)138-581224 [place] [address] 09-28-2023 16:24-0500 Respiratory rate 24 /min DO Divina Araya Work Phone: [facility] 09-28-2023 16:24-0500 SaO2% (BldA) [Mass fraction] 99 % DO Divina Araya Work Phone: [facility] 09-28-2023 16:24-0500 Systolic blood pressure 103 mm[Hg] DO Divina Araya Work Phone: [facility] 09-28-2023 13:15-0500 Body height 156.21 cm DO Divina Araya Work Phone: [facility] 09-28-2023 13:15-0500 Body weight 40.75 kg DO Divina Araya Work Phone: [facility] 09-10-2023 09:49-0500 Diastolic blood pressure 59 mm[Hg] DO Geena. George Menardftan Work Phone: [facility] 09-10-2023 09:49-0500 Heart rate 65 /min DO Geena. George Greenan Work Phone: [facility] 09-10-2023 09:49-0500 Respiratory rate 16 /min DO Geena. George Greenan Work Phone: [facility] 09-10-2023 09:49-0500 SaO2% (BldA) [Mass fraction] 100 % DO Geena. George Greenan Work Phone: [facility] 09-10-2023 09:49-0500 Systolic blood pressure 95 mm[Hg] DO Geena. George Menardftan Work Phone: [facility] 09-10-2023 07:42-0500 Body height 156.21 cm DO Divina Araya Work Phone: [facility] 09-10-2023 07:42-0500 Body weight 40.82 kg DO Divina Araya Work Phone: [facility] 06-03-2023 10:35-0400 Diastolic blood pressure 71 mm[Hg] DO Divina Araya Work Phone: [facility] 06-03-2023 10:35-0400 Heart rate 63 /min DO Divina Araya Work Phone: [facility] 06-03-2023 10:35-0400 Respiratory rate 16 /min DO Divina Araya Work Phone: [facility] 06-03-2023 10:35-0400 SaO2% (BldA) [Mass fraction] 100 % DO Geena. George Greenan Work Phone: [facility] 06-03-2023 10:35-0400 Systolic blood pressure 106 mm[Hg] DO Geena. George Menardftan Work Phone: [facility] 06-03-2023 08:46-0400 Body height 157.48 cm DO Divina Araya Work Phone: [facility] 06-03-2023 08:46-0400 Body weight 48.98 kg DO Divina Araya Work Phone: [facility] 04-25-2023 15:15-0400 Body height 165.35 cm Imad Asaad Other [employer] [place] [facility] Other 04-25-2023 15:15-0400 Body mass index (BMI) [Ratio] 17.09 kg/m2 Imad Asaad Other [employer] [place] [facility] Other 04-25-2023 15:15-0400 Body weight 46.72 kg Imad Asaad Other [employer] Other 04-25-2023 15:15-0400 Diastolic blood pressure 68 mm[Hg] Imad Asaad Other [employer] Other 04-25-2023 15:15-0400 Systolic blood pressure 110 mm[Hg] Imad Asaad Other [employer] Other 12-29-2022 15:12-0400 Body temperature 98.9 [degF] DO Divina Araya Work Phone: [facility] 12-29-2022 15:12-0400 Diastolic blood pressure 64 mm[Hg] DO Divina Araya Work Phone: [facility] 12-29-2022 15:12-0400 Heart rate 65 /min DO Divina Araya Work Phone: [facility] 12-29-2022 15:12-0400 Respiratory rate 18 /min DO Divina Araya Work Phone: [facility] 12-29-2022 15:12-0400 SaO2% (BldA) [Mass fraction] 98 % DO Divina Araya Work Phone: [facility] 12-29-2022 15:12-0400 Systolic blood pressure 112 mm[Hg] DO Divina Araya Work Phone: [facility] 12-29-2022 12:53-0400 Body height 154.94 cm DO Divina Araya Work Phone: [facility] 12-29-2022 12:53-0400 Body weight 53.1 kg DO Divina Araya Work Phone: [facility] 11-06-2022 14:21-0500 Body temperature 98.6 [degF] Kayy Gudimella [facility] 11-06-2022 14:21-0500 Heart rate 77 /min Kayy Gudimella [facility] 11-06-2022 14:21-0500 SaO2% (BldA) [Mass fraction] 98 % Kayy Gudimella [facility] 03-09-2022 02:06-0400 Body weight 48.[address] DEMARCO ORR [facility] Comment on above: Performed By: #### AFPMAT #### [facility] [address] [place] [address] Dr. Mariela Larkin Encounters Encounter Date Encounter Type Care Provider Facility Start: 04-22-2025 End: 04-22-2025 Office outpatient visit 15 minutes Demarco Orr DO Work Phone: [facility] Comment on above: Third trimester preg jorge ([facility]); 33 weeks gestation of ([facility]) Start: 04-22-2025 End: 04-22-2025 ambulatory DEMARCO ORR Not Available Start: 03-29-2025 End: 03-29-2025 Office outpatient visit 15 minutes Cira BROWN Work Phone: [facility] Comment on above: Size of fetus incons istent with dates in first trimester ([facility]) (Primary Dx); Third trimester ([facility]); 30 weeks gestation of ([facility]); Gastroesophageal reflux in ([facility]) Start: 03-29-2025 End: 03-29-2025 ambulatory CIRA CHAIREZ Not Available Start: 03-29-2025 End: 03-29-2025 Bamboo flowsheet Cira BROWN Work Phone: [facility] Start: 03-29-2025 End: 03-29-2025 Bamboo flowsheet Cira BROWN Work Phone: [facility] Start: 03-29-2025 End: 03-29-2025 Clinisync Result Encounter Generic External Data Provider [facility] External Department Unsolicited Start: 02-24-2025 End: 02-24-2025 Emergency department patient visit Divina Araya Facility:[facility] Start: 02-22-2025 End: 02-22-2025 Bamboo flowsheet Demarco Kirby DO Work Phone: [facility] Start: 02-22-2025 End: 02-22-2025 Bamboo flowsheet Demarco Kirby DO Work Phone: [facility] Start: 02-22-2025 End: 02-22-2025 Office outpatient visit 15 minutes Demarco Kirby DO Work Phone: [facility] Comment on above: Second trimester pre gnancy ([facility]); 25 weeks gestation of ([facility]); Diabetes mellitus screening; Gastroesophageal reflux in ([facility]) Start: 02-22-2025 End: 02-22-2025 ambulatory DEMARCO KIRBY Not Available Start: 01-30-2025 End: 01-30-2025 Patient encounter procedure Divina Araya DO Work Phone: [facility] Start: 01-30-2025 End: 01-30-2025 ambulatory Divina Araya DO Work Phone: [facility] Work Phone: Start: 01-30-2025 End: 01-30-2025 Emergency department patient visit Divina Araya DO Work Phone: [facility] Work Phone: Start: 01-27-2025 End: 01-27-2025 Clinisync Result Encounter Generic External Data Provider [facility] External Department Unsolicited Start: 01-27-2025 End: 01-27-2025 Clinisync Result Encounter Generic External Data Provider [facility] External Department Unsolicited Start: 01-25-2025 End: 01-25-2025 Bamboo flowsheet Susan Troy [employer] MECH[employer] SUPERVISOR Work Phone: [facility] Start: 01-25-2025 End: 01-26-2025 Bamboo flowsheet Susan Troy INSTRUMENT MECH[employer]ICS SUPERVISOR Work Phone: [facility] Start: 01-25-2025 End: 01-26-2025 External Result Encounter Susan Troy NP Work Phone: [facility] External Department Unsolicited Start: 01-25-2025 End: 01-25-2025 ambulatory SUSAN TROY Not Available Start: 01-25-2025 End: 01-25-2025 Office outpatient visit 15 minutes Susan Troy INSTRUMENT MECH[employer]ICS SUPERVISOR Work Phone: [facility] Comment on above: Second trimester pre gnancy; 21 weeks gestation of ; Screening, , for anatomic survey; Vaginal discharge; STD exposure; Well woman exam with routine gynecological exam Start: 01-25-2025 End: 01-25-2025 Patient encounter procedure Susan Troy INSTRUMENT MECHANICS SUPERVISOR Work Phone: [facility] Start: 12-07-2024 End: 12-07-2024 ambulatory DEMARCO [...] GA: 9w3d Start: 11-05-2024 End: 11-05-2024 ambulatory DEMARCO KIRBY Not Available Start: 09-21-2024 End: 09-21-2024 Emergency department patient visit Paramjit Yanes DO Work Phone: [facility] Work Phone: Start: 09-03-2024 End: 09-03-2024 Emergency department patient visit Paramjit Yanes DO Work Phone: [facility] Work Phone: Start: 08-25-2024 End: 08-25-2024 Office outpatient visit 25 minutes Anum L Ironwood IN[employer] MECH[employer]ICS SUPERVISOR Work Phone: [facility] Comment on above: Late period (Primary Dx); Unprotected sex Start: 08-25-2024 End: 08-25-2024 ambulatory ANUM L GLO Not Available Start: 08-25-2024 End: 08-25-2024 Bamboo flowsheet Anum L Ironwood INSTRUMENT MECHANICS SUPERVISOR Work Phone: [facility] Start: 08-25-2024 End: 08-25-2024 Bamboo flowsheet Anum L Glo INSTRUMENT MECHANICS SUPERVISOR Work Phone: [facility] Start: 08-02-2024 End: 08-02-2024 Office outpatient visit 15 minutes Carlos Zaragoza MD, IBCLC Work Phone: [facility] Comment on above: Viral URI with cough (Primary Dx) Start: 08-02-2024 End: 08-02-2024 ambulatory CARLOS ZARAGOZA Not Available Start: 06-29-2024 ambulatory Frank Castillo Facility:[facility] Start: 06-29-2024 Registered Recurring Paramjit Marie gibran DO Work Phone: [facility] Start: 06-29-2024 End: 06-29-2024 Emergency department patient visit DO Divina Araya Work Phone: [facility] Work Phone: Start: 04-29-2024 End: 04-29-2024 Office outpatient visit 25 minutes Zachary Araya DO Work Phone: [facility] 230 Comment on above: PTSD (post-traumatic stress disorder) (CMS/HCC) (Primary Dx); Bipolar 1 disorder (CMS/HCC); Allergic urticaria; Marijuana abuse; Abdominal discomfort; Mild intermittent asthma, unspecified whether complicated (CMS/HCC) Start: 04-29-2024 End: 04-29-2024 ambulatory ZACHARY ARAYA Not Available Start: 04-29-2024 End: 04-29-2024 Bamboo flowsheet Zachary Araya DO Work Phone: [facility] 230 Start: 04-29-2024 End: 04-29-2024 Bamboo flowsheet Zachary Artis Derianlottie DO Work Phone: [facility] 230 Start: 04-17-2024 End: 04-17-2024 Emergency department patient visit DO Divina Araya Work Phone: [facility] Work Phone: Start: 10-13-2023 End: 10-13-2023 Emergency department patient visit DO Divina Araya Work Phone: [facility] Work Phone: Start: 09-28-2023 End: 09-28-2023 Emergency department patient visit DO Divina Araya Work Phone: [facility] Work Phone: Start: 09-10-2023 End: 09-10-2023 Admission to same day surgery center DO Divina Araya Work Phone: [facility] Work Phone: Start: 09-10-2023 End: 09-10-2023 ambulatory DO Divina Menardlauraskylar Work Phone: [facility] Work Phone: Start: 07-27-2023 End: 07-27-2023 ambulatory DO Divina Araya Work Phone: [facility] Work Phone: Start: 07-27-2023 End: 07-27-2023 Patient encounter procedure DO Divina Araya Work Phone: [facility] [place] Work Phone: Start: 07-11-2023 End: 07-11-2023 ambulatory Imad Asaad Other [place] [employer] Other Start: 07-11-2023 Telephone encounter Imad Asaad [facility] Start: 06-03-2023 End: 06-03-2023 Admission to same day surgery center DO Divina Araya Work Phone: [facility] Work Phone: Start: 06-03-2023 End: 06-03-2023 ambulatory DO Divina Menardlottie Work Phone: [facility] Work Phone: Start: 05-08-2023 End: 05-08-2023 ambulatory DO Divina Menardlottie Work Phone: [facility] Work Phone: Start: 05-08-2023 End: 05-08-2023 Patient encounter procedure DO GeenaSofia Menardlauraskylar Work Phone: [facility] [place] Work Phone: Start: 04-25-2023 End: 04-25-2023 ambulatory Imad Asaad Other [facility] Other Start: 04-25-2023 [facility] visit new patient Imad Asaad [facility] Start: 12-29-2022 End: 12-29-2022 Emergency department patient visit DO Divina George Menardlottie Work Phone: [facility] Work Phone: Start: 11-06-2022 End: 11-07-2022 ambulatory Kayy Gubaldevmella Facility: [place] Start: 11-06-2022 End: 11-06-2022 Patient encounter procedure Kayy Gudimella [facility] Start: 07-22-2022 End: 07-24-2022 [...] Date Procedure Procedure Detail Performing Clinician Start: 04-22-2025 Urnls dip stick/tablet rgnt non-auto w/o micrscp Demarco Kirby DO Work Phone: Start: 03-29-2025 ALL CBC WITH AUTO DIFF Cira BROWN Work Phone: Start: 03-29-2025 Urnls dip stick/tablet rgnt non-auto w/o micrscp Cira BROWN Work Phone: Start: 02-22-2025 Urnls dip stick/tablet rgnt non-auto w/o micrscp Demarco Kirby DO Work Phone: Start: 01-30-2025 Plain chest X-ray Divina Araya DO Work Phone: Start: 01-27-2025 OB ANATOMY Generic External Data Provider Start: 01-25-2025 RECURRENT VAGINITIS (HTRX) Susan head INSTRUMENT MECHANICS SUPERVISOR Work Phone: Start: 01-25-2025 Urnls dip stick/tablet rgnt non-auto w/o micrscp Susan Troy INSTRUMENT MECHANICS SUPERVISOR Work Phone: Start: 12-03-2024 BOX TEST Demarco Kirby DO Work Phone: Start: 11-05-2024 Urnls dip stick/tablet rgnt non-auto w/o micrscp Demarco Kirby DO Work Phone: Start: 09-21-2024 Plain X-ray of right shoulder Paramjit brown DO Work Phone: Start: 08-25-2024 Gonadotropin chorionic quantitative Lamar Cody INSTRUMENT MECHANICS SUPERVISOR Work Phone: Start: 08-25-2024 Urine test visual color cmprsn meths Anum Cody INSTRUMENT MECHANICS SUPERVISOR Work Phone: Start: 10-13-2023 Plain chest X-ray [...] Activity Detail Author Start: 05-10-2025 Influenza vaccination [facility] Start: 05-06-2025 End: 05-06-2025 Patient encounter procedure 05/06/2025 10:50 AM EDT Routine [facility] [address] [place] [place] [id number] Cira Chairez PA [address] [place] [address] [facility] Start: 04-13-2025 End: 04-13-2025 Patient encounter procedure 04/13/2025 10:30 AM EDT Routine [facility] [address] [place] [id number] Demarco Orr, DO [address] [place] [address] [facility] Start: 04-13-2025 End: 04-13-2025 Professional / ancillary services management 04/13/2025 10:00 AM EDT Ancillary Procedure [facility] [address] [place] [address] [facility] Start: 03-29-2025 End: 03-29-2025 Patient encounter procedure 03/29/2025 3:50 PM EDT Routine [facility] [address] [place] [phone] Cira Chairez PA [address] [place] [address] Arrived [facility] Comment on above: Arrived Start: 03-29-2025 End: 07-30-2025 US for US OB follow up transabdominal approach Imaging Routine Size of fetus inconsistent with dates in first trimester ([facility]) Expected: 03/29/2025, Expires: 07/30/2025 [facility] Work Phone: Comment on above: Expected: 03/29/2025 , Expires: 07/30/2025 Start: 03-18-2025 End: 03-18-2025 Patient encounter procedure 03/18/2025 10:10 AM EDT Routine [facility] [address] [place] [phone] Demarco Orr, DO [address] [place] [address] [facility] Start: 02-22-2025 End: 02-22-2026 CBC panel - Blood by Automated count CBC Lab Routine Second trimester ([facility]) 25 weeks gestation of ([facility]) Diabetes mellitus screening Expected: 02/22/2025, Expires: 02/22/2026 [facility] Work Phone: Comment on above: Expected: 02/22/2025 , Expires: 02/22/2026 Start: 02-22-2025 End: 02-22-2026 Measurement of glucose 1 hour after glucose challenge for glucose tolerance test Glucose tolerance, 1 hour Lab Routine Second trimester ([facility]) 25 weeks gestation of ([facility]) Diabetes mellitus screening Expected: 02/22/2025, Expires: 02/22/2026 [facility] Comment on above: Expected: 02/22/2025 , Expires: 02/22/2026 Start: 02-22-2025 End: 02-22-2025 Patient encounter procedure [facility] Comment on above: Arrived Start: 01-30-2025 Hospital admission [facility] Start: 01-30-2025 End: 01-30-2025 [facility] Start: 01-30-2025 Duplex scan of lower limb veins US venous duplex LE BI [facility] Start: 01-30-2025 US Lower extremity v ein - bilateral [facility] Start: 01-25-2025 End: 02-25-2025 Alpha fetoprotein, maternal Alpha fetoprotein, maternal Lab Routine Second trimester 21 weeks gestation of Expected: 01/25/2025 (Approximate), Expires: 02/25/2025 [facility] Comment on above: Expected: 01/25/2025 (Approximate), Expires: 02/25/2025 Start: 01-25-2025 End: 04-27-2025 US for US OB 14+ weeks anatomy scan Imaging Routine Screening, , for anatomic survey Expected: 01/25/2025, Expires: 04/27/2025 [facility] Comment on above: Expected: 01/25/2025 , Expires: 04/27/2025 Start: 12-07-2024 End: 12-07-2024 Patient encounter procedure 12/07/2024 3:50 PM EDT Routine [facility] [address] [place] [place] [address] Demarco Orr, DO [address] [address] [facility] Start: 12-03-2024 End: 12-03-2024 Patient encounter procedure 12/03/2024 10:10 AM EDT Routine [facility] [address] [place] [place] [address] Demarco rOr, DO [address] [place] [address] [facility] Start: 11-09-2024 End: 11-09-2024 Patient encounter procedure 11/09/2024 1:20 PM EST Office Visit [facility] [address] [place] [place] [address] Cira Chairez PA [address] [place] [address] [facility] Start: 11-05-2024 End: 11-05-2025 ABO/Rh ABO/Rh Lab Routine Missed menses , unspecified gestational age Expected: 11/05/2024 (Approximate), Expires: 11/05/2025 [facility] Comment on above: Expected: 11/05/2024 (Approximate), Expires: 11/05/2025 Start: 11-05-2024 End: 11-05-2025 Blood type and Indirect antibody screen panel - Blood Type and screen Lab Routine Missed menses , unspecified gestational age Expected: 11/05/2024 (Approximate), Expires: 11/05/2025 [facility] Comment on above: Expected: 11/05/2024 (Approximate), Expires: 11/05/2025 Start: 11-05-2024 End: 11-05-2025 Drugs of abuse panel - Urine by Screen method Rapid drug screen, urine Lab Routine , unspecified gestational age Encounter for supervision of normal first in first trimester Expected: 11/05/2024 (Approximate), Expires: 11/05/2025 [facility] Comment on above: Expected: 11/05/2024 (Approximate), Expires: 11/05/2025 Start: 11-05-2024 End: 11-05-2025 US Pelvis transvaginal [facility] Work Phone: Comment on above: Expected: 11/05/2024 , Expires: 11/05/2025 Start: 05-10-2024 Influenza vaccination Influenza Vacc ine (#1) [facility] Start: 04-29-2024 End: 04-29-2024 Patient encounter procedure 04/29/2024 4:00 PM EDT Office Visit [facility] [address] [place] [phone] Zachary Araya DO [address] [place] [address] Arrived [facility] Comment on above: Arrived Start: 04-29-2024 End: 04-29-2025 Cotton linters, untreated IgE Cotton linters, untreated IgE Lab Routine Allergic urticaria Expected: 04/29/2024 (Approximate), Expires: 04/29/2025 [facility] Comment on above: Expected: 04/29/2024 (Approximate), Expires: 04/29/2025 Start: 04-29-2024 End: 04-29-2025 Dog dander IgE Dog dander IgE Lab Routine Allergic urticaria Expected: 04/29/2024 (Approximate), Expires: 04/29/2025 [facility] Comment on above: Expected: 04/29/2024 (Approximate), Expires: 04/29/2025 Start: 04-29-2024 End: 04-29-2025 Food allergy profile Food allergy profile Lab Routine Allergic urticaria Expected: 04/29/2024 (Approximate), Expires: 04/29/2025 [facility] Work Phone: Comment on above: Expected: 04/29/2024 (Approximate), Expires: 04/29/2025 Start: 04-29-2024 End: 04-29-2025 Nfel D 2 cat serum albumin IgE Nfel D 2 cat serum albumin IgE Lab Routine Allergic urticaria Expected: 04/29/2024 (Approximate), Expires: 04/29/2025 [facility] Comment on above: Expected: 04/29/2024 (Approximate), Expires: 04/29/2025 Start: 10-13-2023 [facility] Start: 09-28-2023 Bacteria identified in Urine by Culture [facility] Start: 09-10-2023 [facility] Start: 06-03-2023 [facility] Start: 05-08-2023 Ova and Parasite Concentrate Exam Ova and Parasite Concentrate Exam [facility] Start: 12-29-2022 Bacteria identified in Urine by Culture [facility] aPTT in Platelet poo r plasma by Coagulation assay [facility] Bacteria identified in Urine by Culture Urine culture Microbiology Routine Missed menses Ordered: 11/05/2024 [facility] Comment on above: Ordered: 11/05/2024 Calprotectin [Mass/mass] in Stool [facility] CBC W Auto Different ial panel - Blood CBC and differential Lab Routine Missed menses , unspecified gestational age Ordered: 11/05/2024 [facility] Comment on above: Ordered: 11/05/2024 CBC W Auto Different ial panel - Blood CBC and differential Lab Routine Third trimester ([facility]) Ordered: 03/29/2025 [facility] Comment on above: Ordered: 03/29/2025 CHLAMYDIA TRACHOMATI S (GENITO/STI) CHLAMYDIA TRACHOMATIS (GENITO/STI) Lab Routine Vaginal discharge STD exposure Ordered: 01/25/2025 [facility] Comment on above: Ordered: 01/25/2025 Cytology Cervical or vaginal smear or scraping study Pap Smear Pathology and Cytology Routine Well woman exam with routine gynecological exam Ordered: 01/25/2025 [facility] Work Phone: Comment on above: Ordered: 01/25/2025 Elastase.pancreatic [Mass/mass] in Stool [facility] Fibrin D-dimer [Presence] in Platelet poor plasma by Latex agglutination [facility] Hemoglobin A1c/Hemoglobin.total in Blood Hemoglobin A1c Lab Routine Missed menses , unspecified gestational age Ordered: 11/05/2024 [facility] Comment on above: Ordered: 11/05/2024 Hemoglobin A1c/Hemoglobin.total in Blood Hemoglobin A1c Lab Routine Third trimester ([facility]) Ordered: 03/29/2025 [facility] Comment on above: Ordered: 03/29/2025 Hepatitis B virus surface Ag [Presence] in Serum or Plasma by Immunoassay Hepatitis B surface antigen Lab Routine Missed menses , unspecified gestational age Ordered: 11/05/2024 [facility] Comment on above: Ordered: 11/05/2024 Hepatitis C virus Ab [Presence] in Serum or Plasma by Immunoassay Hepatitis C antibody Lab Routine Missed menses , unspecified gestational age Ordered: 11/05/2024 [facility] Comment on above: Ordered: 11/05/2024 HIV-1/HIV-2 antigen/antibody combination immunoassay HIV-1 and HIV-2 antibodies Lab Routine Missed menses , unspecified gestational age Ordered: 11/05/2024 [facility] Comment on above: Ordered: 11/05/2024 INR in Platelet poor plasma by Coagulation assay [facility] Neisseria gonorrhoea e DNA [Presence] in Unspecified specimen by OMAIRA with probe detection Neisseria gonorrhea DNA probe, direct Lab Routine Vaginal discharge STD exposure Ordered: 01/25/2025 [facility] Comment on above: Ordered: 01/25/2025 Ova and parasites identified in Unspecified specimen by Light microscopy [facility] Patient Education [facility] Work Phone: Patient referral [facility] Work Phone: Prothrombin time (PT) [facility] Reagin Ab [Presence] in Serum by RPR RPR Lab Routine Missed menses , unspecified gestational age Ordered: 11/05/2024 [facility] Comment on above: Ordered: 11/05/2024 Rubella antibody, IgG Rubella an tibody, IgG Lab Routine Missed menses , unspecified gestational age Ordered: 11/05/2024 [facility] Comment on above: Ordered: 11/05/2024 SURESWAB(R) ADVANCED VAGINITIS PLUS, TMA SURESWAB(R) ADVANCED VAGINITIS PLUS, TMA Pathology and Cytology Routine Vaginal discharge STD exposure Ordered: 01/25/2025 [facility] Comment on above: Ordered: 01/25/2025 Immunizations Immunization Date Immunization Notes Care Provider Reyes solorioyash 06-02-2020 Human Papillomavirus 9-valent vaccine Zachary Araya DO Work Phone: [facility] 06-02-2020 meningococcal oligosaccharide (groups A, C, Y and W-135) diphtheria toxoid conjugate vaccine (MCV4O) Zachary Araya DO Work Phone: [facility] 06-02-2015 human papilloma viru s vaccine, quadrivalent Zachary Araya DO Work Phone: [facility] 06-02-2015 influenza, seasonal, injectable Zachary Araya DO Work Phone: [facility] 06-02-2015 meningococcal polysaccharide (groups A, C, Y and W-135) diphtheria toxoid conjugate vaccine (MCV4P) Zachary Araya DO Work Phone: [facility] 06-02-2015 tetanus toxoid, redu ekaterina diphtheria toxoid, and acellular pertussis vaccine, adsorbed Zachary Araya DO Work Phone: [facility] 06-02-2015 influenza virus vaccine, unspecified formulation Zachary Araya DO Work Phone: [facility] 03-19-2007 hepatitis A vaccine, unspecified formulation Zachary Araya DO Work Phone: [facility] 05-07-2006 diphtheria, tetanus toxoids and acellular pertussis vaccine, unspecified formulation Zachary Araya DO Work Phone: [facility] 05-07-2006 hepatitis A vaccine, unspecified formulation Zachary Araya DO Work Phone: [facility] 05-07-2006 measles, mumps and rubella virus vaccine Zachary Araya DO Work Phone: [facility] 05-07-2006 pneumococcal conjuga te vaccine, 7 valent Zachary Araya DO Work Phone: [facility] 05-07-2006 poliovirus vaccine, inactivated Zachary Araya DO Work Phone: [facility] 05-07-2006 varicella virus vaccine Geor shilpa Araya DO Work Phone: [facility] 07-12-2003 diphtheria, tetanus toxoids and acellular pertussis vaccine Zachary Araya DO Work Phone: [facility] 07-12-2003 haemophilus influenz ae type b vaccine, PRP-T conjugate Zachary Araya DO Work Phone: [facility] 07-12-2003 measles, mumps and rubella virus vaccine Zachary Araya DO Work Phone: [facility] 07-12-2003 pneumococcal conjuga te vaccine, 7 valent Zachary Araya DO Work Phone: [facility] 07-12-2003 varicella virus vaccine Rhea Araya DO Work Phone: [facility] 2002 diphtheria, tetanus toxoids and acellular pertussis vaccine, unspecified formulation Zachary Araya DO Work Phone: [facility] 2002 haemophilus influenz ae type b conjugate and Hepatitis B vaccine Zachary Araya DO Work Phone: [facility] 2002 poliovirus vaccine, inactivated Zachary Araya DO Work Phone: [facility] 2002 diphtheria, tetanus toxoids and acellular pertussis vaccine, unspecified formulation Zachary Araya DO Work Phone: [facility] 2002 haemophilus influenz ae type b vaccine, conjugate unspecified formulation Zachary Araya DO Work Phone: [facility] 2002 pneumococcal conjuga te vaccine, 7 valent Zachary Araya DO Work Phone: [facility] 2002 poliovirus vaccine, inactivated Zachary Araya DO Work Phone: [facility] 2002 diphtheria, tetanus toxoids and acellular pertussis vaccine, unspecified formulation Zachary Araya DO Work Phone: [facility] 2002 haemophilus influenz ae type b conjugate and Hepatitis B vaccine Zachary Araya DO Work Phone: [facility] 2002 pneumococcal conjuga te vaccine, 7 valent Zachary Araya DO Work Phone: [facility] 2002 poliovirus vaccine, inactivated Zachary Araya DO Work Phone: [facility] 2002 hepatitis B vaccine, pediatric or pediatric/adolescent dosage Zachary Araya DO Work Phone: [facility] NEGATED: Highlighted row has not occurred!11-06-2022 influenza virus vaccine, unspecified formulation [facility] NEGATED: Highlighted row has not occurred!11-06-2022 SARS-CoV-2 mRNA (tozinameran 5y-11y) vaccine [facility] Payers Date Payer Category Payer Self-pay [id number] 2023 Medicaid [employer] [place] [id number] 2023-Present [address] [place] [id number] 2022 Medicaid (Managed Care) 1.2. [id number] 2013 Unknown HCAP/HFA/FAP Active [id number] 2002 Unknown [id number] 2.16.840.1.507794.3.579.2.5 93 2002 Unknown [id number] 2.16.840.1.902426.3.579.2.5 93 2002 Unknown [id number] 2.16.840.1.384436.3.579.2.5 93 2002 Unknown [id number] 2.16.840.1.964717.3.579.2.5 93 2002 Unknown [id number] 2.16.840.1.837830.3.579.2.5 93 2002 Unknown [id number] 2.16.840.1.767120.3.579.2.5 93 2002 Unknown [id number] 2.16.840.1.976179.3.579.2.5 93 2002 Unknown [id number] 2.16.840.1.665306.3.579.2.5 93 2002 Unknown [id number] 2.16.840.1.425291.3.579.2.5 93 2002 Unknown [id number] 2.16.840.1.289305.3.579.2.5 93 2002 Unknown [id number] 2.16.840.1.811714.3.579.2.7 27 2002 Unknown [id number] 2.16.840.1.087321.3.579.2.1 259 2002 Unknown [id number] 2.16.840.1.939610.3.579.2.1 259 2002 Unknown [id number] 2.16.840.1.206986.3.579.2.1 259 2002 Unknown [id number] 2.16.840.1.619345.3.579.2.1 259 2002 Unknown [id number] 2.16.840.1.730505.3.579.2.1 259 2002 Unknown [id number] 2.16.840.1.399864.3.579.2.1 259 2002 Unknown [id number] 2.16.840.1.482081.3.579.2.1 259 2002 Unknown [id number] 2.16.840.1.110418.3.579.2.1 259 2002 Unknown [id number] 2.16.840.1.475436.3.579.2.1 259 2002 Unknown [id number] 2.16.840.1.420205.3.579.2.1 259 2002 Unknown [id number] 2.16.840.1.615816.3.579.2.1 259 1959 Unknown [id number] Unknown [id number] 2.16.840.1.482648.3.579.2.5 93 Unknown [id number] 2.16.840.1.679867.3.579.2.5 31 Unknown [id number] 2.16.840.1.897082.3.579.2.5 31 Unknown [id number] 2.16.840.1.106592.3.579.2.5 31 Unknown [id number] 2.16.840.1.468576.3.579.2.5 31 Unknown [id number] 2.16.840.1.874814.3.579.2.5 31 Unknown [id number] 2.16.840.1.317885.3.579.2.5 31 Unknown [id number] 2.16.840.1.320744.3.579.2.5 31 Unknown [id number] 2.16.840.1.828422.3.579.2.5 31 Social History Date Type Detail Facility Start: 11-06-2022 End: 04-07-2023 Tobacco smoking status Never smoked tobacco (finding) [facility] Tobacco smoking status Never [facility] Start: 04-29-2024 End: 03-01-2025 Sex Assigned At Female [facility] Start: 2002 Sex Assigned At Female [facility] Start: 09-10-2023 End: 01-30-2025 Tobacco smoking status NHIS Smoker (finding) [facility] Start: 04-07-2023 Tobacco use and exposure Smokeless tobacco non-user [facility] Start: 08-02-2024 End: 04-21-2025 Alcoholic beverage intake Lifetime non-drinker (finding) [facility] Start: 04-29-2024 End: 03-01-2025 History of Social function [facility] Work Phone: Start: 04-07-2023 Alcohol Comment caffeine: occasional [facility] Start: 2002 Sex assigned at Not on file [facility] Start: 09-21-2024 End: 01-30-2025 Sex Female (finding) [facility] Start: 09-14-2024 [facility] NEGATED: Highlighted row [facility] Goals Date Patient Goal Desired Activity /State Functional Status Date Assessment Result Facility 11-06-2022 Functional Status N/A [facility] Clinical Notes 11-06-2022 to 04-22-2025 Jennifer Batista LPN - 04/22/2025 11:00 AM KEVIN Harvey - 03/29/2025 3:50 PM EDTSmary jo Batista LPN - 02/22/2025 1:50 PM EDTMontbetty Koehler MA - 01/25/2025 10:10 AM EDT Note Date & Type Note Facility 04-22-2025 History of Present illness Narrative Reason for Appointment: Patient ID: Dawn Major is a 25 y.o. female who presents for Routine Visit Patient presents today for Return OB appointment. MEDICATIONS Current Outpatient Medications Medication Instructions albuterol HFA 90 mcg/act inhaler 2 puffs, Inhalation, Every 4 hours PRN fluticasone (Flonase) 50 MCG/ACT nasal spray 2 sprays, Daily omeprazole (PRILOSEC) 20 mg, Oral, Daily before breakfast, Do not crush or chew. Gmujoffv-Iul-Ze-FA ( 1 + IRON PO) 1 tablet, Daily ALLERGIES Allergies Allergen Reactions Tilactase Diarrhea Amoxicillin Unknown PROBLEMS Active Ambulatory Problems Diagnosis Date Noted Anxiety 04/09/2023 Asthma (HCC) 04/09/2023 Gastroesophageal reflux disease without esophagitis 04/09/2023 Left wrist pain 04/09/2023 Multiple joint pain 04/09/2023 PTSD (post-traumatic stress disorder) 12/20/2023 depression 12/20/2023 Marijuana abuse 04/28/2024 Second trimester ([facility]) 02/22/2025 25 weeks gestation of ([facility]) 02/22/2025 Resolved Ambulatory Problems Diagnosis Date Noted ADHD (attention deficit hyperactivity disorder) 12/20/2023 Past Medical History: Diagnosis Date Acid reflux Allergies Episodic tension type headache Fractured nose HISTORY PAST MEDICAL HISTORY SOCIAL HISTORY Past Medical History: Diagnosis Date Acid reflux ADHD (attention deficit hyperactivity disorder) 12/20/2023 Allergies Asthma (HCC) Episodic tension type headache Fractured nose Social [...] nursing note reviewed. Exam conducted with a fish packer present. Vitals: Estimated body mass index is 23.5 kg/m as calculated from the following: Height as of 04/29/24: 5' 2 . Weight as of this encounter: 128 lb 8 oz. BP: 102/70 Patient's last menstrual period was 08/31/2024. ASSESSMENT & PLAN ICD-10-CM 1. Third trimester ([facility]) Z34.93 POCT urinalysis dipstick manually resulted 2. 33 weeks gestation of ([facility]) Z3A.33 Patient presents today for a routine obstetrics appointment. Patient is currently 33w3d with a Estimated Date of Delivery: 06/07/25. Patient was considering tubal ligation, but patient and spouse are not sure if they have s completed child-bearing. Discussed correction management with Mirena IUD & patient will consider Mirena. Patient to return to clinic in 2-3 weeks. Documented by Jennifer Batista LPN on behalf of: Demarco Orr DO documented in this encounter [facility] 03-29-2025 History of Present illness Narrative Reason for Appointment: Patient ID: Dawn Major is a 24 y.o. female who presents for Routine Visit Patient presents today for Return OB appointment. MEDICATIONS Current Outpatient Medications Medication Instructions albuterol HFA 90 mcg/act inhaler 2 puffs, Inhalation, Every 4 hours PRN fluticasone (Flonase) 50 MCG/ACT nasal spray 2 sprays, Daily omeprazole (PRILOSEC) 20 mg, Oral, Daily before breakfast, Do not crush or chew. Buywsywp-Jlg-Gn-FA ( 1 + IRON PO) 1 tablet, Daily ALLERGIES Allergies Allergen Reactions Tilactase Diarrhea Amoxicillin Unknown PROBLEMS Active Ambulatory Problems Diagnosis Date Noted Anxiety 04/09/2023 Asthma (HCC) 04/09/2023 Gastroesophageal reflux disease without esophagitis 04/09/2023 Left wrist pain 04/09/2023 Multiple joint pain 04/09/2023 PTSD (post-traumatic stress disorder) 12/20/2023 depression 12/20/2023 Marijuana abuse 04/28/2024 Second trimester ([facility]) 02/22/2025 25 weeks gestation of ([facility]) 02/22/2025 Resolved Ambulatory Problems Diagnosis Date Noted ADHD (attention deficit hyperactivity disorder) 12/20/2023 Past Medical History: Diagnosis Date Acid reflux Allergies Episodic tension type headache Fractured nose HISTORY PAST MEDICAL HISTORY SOCIAL HISTORY Past Medical History: Diagnosis Date Acid reflux ADHD (attention deficit hyperactivity disorder) 12/20/2023 Allergies Asthma (HCC) Episodic tension type headache Fractured nose Social [...] Exam Constitutional: Appearance: Normal appearance. She is normal weight. HENT: Head: Normocephalic. Cardiovascular: Rate and Rhythm: Normal rate. Pulses: Normal pulses. Pulmonary: Effort: Pulmonary effort is normal. Breath sounds: Normal breath sounds. Abdominal: Palpations: Abdomen is soft. Musculoskeletal: General: Normal range of motion. Neurological: General: No focal deficit present. Mental Status: She is alert and oriented to person, place, and time. Psychiatric: Mood and Affect: Mood normal. Behavior: Behavior normal. Thought Content: Thought content normal. Judgment: Judgment normal. Vitals and nursing note reviewed. Vitals: Estimated body mass index is 22.54 kg/m as calculated from the following: Height as of 04/29/24: 5' 2 . Weight as of this encounter: 123 lb 4 oz. BP: 116/64 Patient's last menstrual period was 08/31/2024. ASSESSMENT & PLAN ICD-10-CM 1. Third trimester ([facility]) Z34.93 POCT urinalysis dipstick manually resulted 2. 30 weeks gestation of ([facility]) Z3A.30 Return OB: Patient presents today for a routine obstetrics appointment. Patient is currently 30w1d . Patient states she is doing well but has complaints of being tired due to current . Patient has verbalizes frequent movement. labor precautions was discussed/given and patient was instructed to perform kick counts three times a day. Orders Placed This Encounter Procedures US OB follow up transabdominal approach CBC and differential Hemoglobin A1c POCT urinalysis dipstick manually resulted Follow Up: Patient is to return to office in 2 week for routine OB appointment. documented in this encounter [facility] 02-22-2025 History of Present illness Narrative Reason for Appointment: Patient ID: Dawn Major is a 24 y.o. female who presents for No chief complaint on file. Patient presents today for Return OB appointment. MEDICATIONS Current Outpatient Medications Medication Instructions albuterol HFA 90 mcg/act inhaler 2 puffs, Inhalation, Every 4 hours PRN Nwftgktg-Rso-Vz-FA ( 1 + IRON PO) 1 tablet, Daily ALLERGIES Allergies Allergen Reactions Tilactase Diarrhea Amoxicillin Unknown Milk (Cow) Unknown PROBLEMS Active Ambulatory Problems Diagnosis Date Noted Anxiety 04/09/2023 Asthma (HCC) 04/09/2023 Gastroesophageal reflux disease without esophagitis 04/09/2023 Left wrist pain 04/09/2023 Multiple joint pain 04/09/2023 PTSD (post-traumatic stress disorder) 12/20/2023 depression 12/20/2023 Marijuana abuse 04/28/2024 Second trimester ([facility]) 02/22/2025 25 weeks gestation of ([facility]) 02/22/2025 Resolved Ambulatory Problems Diagnosis Date Noted ADHD (attention deficit hyperactivity disorder) 12/20/2023 Past Medical History: Diagnosis Date Acid reflux Allergies Episodic tension type headache Fractured nose HISTORY PAST MEDICAL HISTORY SOCIAL HISTORY Past Medical History: Diagnosis Date Acid reflux ADHD (attention deficit hyperactivity disorder) 12/20/2023 Allergies Asthma (HCC) Episodic tension type headache Fractured nose Social [...] nursing note reviewed. Exam conducted with a fish packer present. Vitals: Estimated body mass index is 20.58 kg/m as calculated from the following: Height as of 04/29/24: 5' 2 . Weight as of 01/25/25: 112 lb 8 oz. BP: Patient's last menstrual period was 08/31/2024. ASSESSMENT & PLAN ICD-10-CM 1. Second trimester ([facility]) Z34.92 POCT urinalysis dipstick manually resulted CBC Glucose tolerance, 1 hour CBC Glucose tolerance, 1 hour 2. 25 weeks gestation of ([facility]) Z3A.25 POCT urinalysis dipstick manually resulted CBC Glucose tolerance, 1 hour CBC Glucose tolerance, 1 hour 3. Diabetes mellitus screening Z13.1 CBC Glucose tolerance, 1 hour CBC Glucose tolerance, 1 hour Return OB: Patient presents today for a routine obstetrics appointment. Patient is currently 25w0d . Patient states she is doing well but has complaints of being tired due to current . Patient has verbalizes frequent movement. labor precautions was discussed/given and patient was instructed to perform kick counts three times a day. Orders Placed This Encounter Procedures CBC Glucose tolerance, 1 hour POCT urinalysis dipstick manually resulted Follow Up: Patient is to return to office in 4 weeks for routine OB appointment. documented in this encounter [facility] 01-30-2025 Radiology Diagnostic study note [facility] [place] [address] Ultrasound Report Signed Patient: Dawn Major MR#: [id number] : 2000 Acct:[id number] Age/Sex: 24 / F ADM Date: 5 Loc: ER Room: Type: [facility] ER Attending Dr: Ordering Provider: Vipin Stroud DO Date of Service: 01/30/25 US/US venous duplex LE BI: r/o dvt Copies to: Vipin Stroud DO~ BILATERAL LOWER EXTREMITY VENOUS DUPLEX INDICATION: Leg pain PROCEDURE: Color-flow duplex scanning is used to interrogate the deep venous system of the right and left lower extremities. The common femoral vein, femoral vein and popliteal vein show good compressibility with normal proximal and distal augmentation. The posterior tibial and peroneal veins are compressible. US/US venous duplex LE BI IMPRESSION: NO EVIDENCE FOR DEEP VEIN THROMBOSIS OR PROXIMAL SUPERFICIAL THROMBOPHLEBITIS INTHE RIGHT OR LEFT LOWER EXTREMITY. Impression dictated by: Arvin Gonzales M.D. 02/02/2025 12:17 PM Dictation Location: [place] [address] Tech: Alice García Transcribed By: SHERINE 02/02/251216 Dictated By: Arvin Gonzales MD 02/02/251215 Signed By: 02/02/25 1217 [facility] Work Phone: 01-25-2025 History of Present illness Narrative Reason for Appointment: Patient ID: Dawn Major is a 24 y.o. female who presents for Routine Visit Patient presents today for Return OB appointment. MEDICATIONS Current Outpatient Medications Medication Instructions albuterol HFA 90 mcg/act inhaler 2 puffs, Inhalation, Every 4 hours PRN Mnlaidqy-Cph-Iv-FA ( 1 + IRON PO) 1 tablet, Daily ALLERGIES Allergies Allergen Reactions Tilactase Diarrhea Amoxicillin Unknown Milk (Cow) Unknown PROBLEMS Active Ambulatory Problems Diagnosis Date Noted Anxiety 04/09/2023 Asthma 04/09/2023 Gastroesophageal reflux disease without esophagitis 04/09/2023 Left wrist pain 04/09/2023 Multiple joint pain 04/09/2023 PTSD (post-traumatic stress disorder) ([facility]) 12/20/2023 depression ([facility]) 12/20/2023 Marijuana abuse 04/28/2024 Resolved Ambulatory Problems Diagnosis Date Noted ADHD (attention deficit hyperactivity disorder) ([facility]) 12/20/2023 Past Medical History: Diagnosis Date Acid reflux Allergies Episodic tension type headache Fractured nose HISTORY PAST MEDICAL HISTORY SOCIAL HISTORY Past Medical History: Diagnosis Date Acid reflux ADHD (attention deficit hyperactivity disorder) ([facility]) 12/20/2023 Allergies Asthma Episodic tension type headache [...] nursing note reviewed. Exam conducted with a fish packer present. Vitals: Estimated body mass index is [...] Eileen Koehler MA on behalf of: Susan Tryo NP documented in this encounter [facility] 12-07-2024 History of Present illness Narrative Reason for Appointment: Patient ID: Dawn Major is a 24 y.o. female who presents [...] joint pain 04/09/2023 PTSD (post-traumatic stress disorder) ([facility]) 12/20/2023 depression ([facility]) 12/20/2023 Marijuana abuse 04/28/2024 Resolved Ambulatory Problems Diagnosis Date Noted ADHD (attention deficit hyperactivity disorder) ([facility]) 12/20/2023 Past Medical History: Diagnosis Date Acid reflux Allergies Episodic tension type headache Fractured nose HISTORY PAST MEDICAL HISTORY SOCIAL HISTORY Past Medical History: Diagnosis Date Acid reflux ADHD (attention deficit hyperactivity disorder) ([facility]) 12/20/2023 Allergies Asthma Episodic tension type headache [...] nursing note reviewed. Exam conducted with a fish packer present. Vitals: Estimated body mass index is [...] or undercooked meat, and [facility]. Patient has been consulted regarding any further do's and don'ts of . Patient voiced understanding and all questions and concerns were answered. Follow Up: Patient is to return in 4 weeks for routine OB appointment. Documented by Jennifer Batista LPN on behalf of: Demarco Orr DO documented in this encounter [facility] 11-05-2024 History of Present illness Narrative Reason for Appointment: Patient ID: Dawn Major is a 24 y.o. female who presents [...] Problems Diagnosis Date Noted Anxiety 04/09/2023 Asthma ([facility]) 04/09/2023 Gastroesophageal reflux disease without esophagitis 04/09/2023 Left wrist pain 04/09/2023 Multiple joint pain 04/09/2023 PTSD (post-traumatic stress disorder) ([facility]) 12/20/2023 depression ([facility]) 12/20/2023 Marijuana abuse 04/28/2024 Resolved Ambulatory Problems Diagnosis Date Noted ADHD (attention deficit hyperactivity disorder) ([facility]) 12/20/2023 Past Medical History: Diagnosis Date Acid [...] or undercooked meat, and stay away from [facility]. Patient has also been advised to not change litter boxes and eat 6 small meals a day. Patient has been consulted regarding the do's and don'ts of . Patient was given labs and all questions and concerns were answered. Patient was given [place] labs to have completed and to schedule [...] Cee Everett LPN documented in this encounter [facility] 08-25-2024 History of Present illness Narrative Images from the original note were not included. [address] , [address] [facility], [address] P: [phone] F: [phone] HPI Historian of HPI: patient Dawn Major is a 24 y.o. female who presents [...] call with results when available. Follow-up with FIELD APPLICATIONS SPECIALIST - hCG, quantitative, documented in this encounter [facility] 08-02-2024 History of Present illness Narrative Images from the original note were not included. [address] , [address] [facility], [address] P: [phone] F: [phone] HPI Historian of HPI: patient Dawn Major is a 24 y.o. female who presents [...] Final PERFORMING LAB: 07/24/2022 see note Final [facility] - [address] [place] [address] ,Ext. [phone] ASSESSMENT & PLAN: Assessment & Plan Viral URI with cough Symptoms and time course consistent with viral URI. Reviewed ionj-key-gwxeerv symptomatic treatments, including NSAIDs/acetaminophen for fever and myalgias, decongestants, nasal sprays and ample hydration. Advised patient return to clinic if symptoms suddenly worsen or do not improve after 7-10 days of symptoms. Provided reassurance. Carlos Zaragoza MD, IBCLC [facility] documented in this encounter [facility] 04-29-2024 History of Present illness Narrative Images from the original note were not included. SUBJECTIVE: Dawn Major is a 24 y.o. female presents with chief complaint of No chief complaint on file. Pt presents to discuss an increase in her anxiety, possibility of undiagnosed bipolar, would like a referral to an coal washer to test to see if she might be allergic to some types of foods, and to do a follow up for her ER visit on 04-17-24. This was due to stomach issues with the possibility of either a stomach bug or the flu. Review of Systems: Review of Systems Problem List: Patient Active Problem List Diagnosis Anxiety Asthma ([facility]) Gastroesophageal reflux disease without esophagitis Left wrist pain Multiple joint pain PTSD (post-traumatic stress disorder) ([facility]) depression ([facility]) Marijuana abuse Past Medical History: Past Medical History: Diagnosis Date Acid reflux ADHD (attention deficit hyperactivity disorder) ([facility]) 12/20/2023 Allergies Asthma ([facility]) Episodic tension type headache Fractured nose Family [...] for this visit: PTSD (post-traumatic stress disorder) ([facility]) Patient advised to return if symptoms worsen and/or persist despite treatment. - citalopram (CeleXA) 10 MG tablet; Take 1 tablet (10 mg) by mouth Daily Bipolar 1 disorder ([facility]) - ARIPiprazole (Abilify) 5 MG tablet; Take [...] recurs Mild intermittent asthma, unspecified whether complicated ([facility]) Problem is stable, will continue with current [...] tablet, Rfl: 0 documented in this encounter [facility] 09-28-2023 Hospital Discharge instructions Additional Instructions Use albuterol inhaler 2 puffs every 4-6 hours if needed for wheezing or shortness of breath Zofran for nausea vomiting Push fluids Rest Good handwashing Steroids as directed Take antibiotics as instructed until gone Return here if you have any shortness of breath, chest pain, vomiting unable to keep anything down, or any other concerns [facility] Work Phone: 09-10-2023 Procedure note [facility] 07-11-2023 Evaluation note Encounter Date Diagnosis Assessment Notes Jul, Diarrhea (ICD-10 - R19.7) Jul, Weight loss (ICD-10 - R63.4) [employer] [facility] [employer] Other 09-25-2023 History and physical note Author Jordi Seals [facility] June 03, 2023 9:43am Note Date/Time June 03, 2023 9:43am [facility] [address] [place] [address] Gastroenterology H&P Signed Patient: Dawn Major MR#: [id number] : 2000 Acct:[id number] Age/Sex: 23 / F Adm Date: 3 Loc: Room: Type: [facility] HOSPITAL Attending Dr: Jordi Seals MD Copies [...] <Electronically signed by Jordi Seals MD> 06/03/23942 [facility] Work Phone: 1(567) 583-363109-25-2023 [facility]* Encounter Date Diagnosis Assessment Notes Treatment Notes Treatment Clinical Notes Apr, Diarrhea (ICD-10 - R19.7) Patient was seen in the ER and was advise by ER to see stereo plotter operator Patient will have labs done ordered today Apr, Unintentional weight loss (ICD-10 - R63.4) Patient is to have a colonoscopy that it will be scheduled today prep instructions given in office today Risks and benefits of procedure explained to patient; patient verbalizes understanding. [employer] Other 02-28-2023 Hospital Discharge instructions Follow Up Care 11/06/2022 13:26:54 With:Kayy Fontana MD, [facility], [facility] Address: [address] [place] [phone] When: only if needed [facility] Evaluation + Plan [facility] Evaluation noteNo assessment information available [facility] Work Phone: Evaluation note* Diagnosis Viral URI with cough- Primary [facility] Diagnosis PTSD (post-traumatic stress disorder) ([facility])- Primary Posttraumatic stress disorder Bipolar 1 disorder ([facility]) Allergic urticaria Marijuana abuse Nondependent cannabis abuse, [...] gynecological examination documented in this encounter [facility]* Diagnosis Second trimester (HHS-HCC) state, incidental 25 weeks gestation of ([facility]HS-HCC) Diabetes mellitus screening Screening for diabetes mellitus Gastroesophageal reflux in ([facility]HS-HCC) [facility]* Diagnosis Size of fetus inconsistent with dates in first trimester (HHS-HCC)- Primary Third trimester ([facility]HS-HCC) state, incidental 30 weeks gestation of ([facility]-H[facility]) Gastroesophageal reflux in ([facility]-HCC) [facility] encounter [facility]* Diagnosis Third trimester ([facility]HS-HCC) state, incidental 33 weeks gestation of ([facility]-HCC) documented in this encounter [facility] and [facility] note Author Jordi Seals [facility] September 10, 2023 9:00am Note Date/Time September 10, 2023 9: 00am [facility] [address] [place] [address] Gastroenterology H&P Signed Patient: Dawn Major MR#: [id number] : 2000 Acct:[id number] Age/Sex: 23 / F Adm Date: 4 Loc: Room: Type: [facility] Attending Dr: Jordi Seals MD Copies [...] signed by Jordi Seals MD> 09/10/23 0900 [facility] Work Phone: History general Narrative - Reported* Type Description Date Medical History hx of acid reflux Medical History lactose intolerance Surgical History FINGER SURGERY Hospitalization History 2.5 weeks old for milk a llergy [employer] Other Hospital course Narrative No data available for this section [facility] Hospital Discharge instructions Additional [...] high fever vomiting or any other concerns [facility] Work Phone: Hospital Discharge instructions Additional [...] NOT operate machinery such as power tools, Grid[employer] mowers, snow blowers, sewing machines, etc. for [...] 45 -Follow up with PCP. -Office number [phone]. [facility] Work Phone: Hospital Discharge instructions Additional [...] NOT operate machinery such as power tools, [employer] mowers, snow blowers, sewing machines, etc. for [...] in the office as scheduled -Office number [phone]. [facility] Work Phone: Hospital Discharge instructions Additional Instructions Follow-up with mental health Return to ED if develop worsening [facility] or [facility]: Hospital Discharge instructions Additional Instructions Will go to the OB floor for further evaluation and monitoring.[facility] Work Phone: Progress note No data available for this section [facility] Care Reason for referral (narrative) , [facility] please Referred by: Kayy Fontana MD [facility] Summary Purpose Family History [...] Abd pain MHP Chief Complaint Admit Date P June 29, 2024 1 0:34am BH June 29, 2024 3 :39pm lightheaded, nausea September 03, 2024 6:13pm right shoulder pain/injury September 21, 2024 8:31pm Chief Complaint Admit Date chest pain January 30, 2025 8:15a m Unknown January 30, 2025 10:52 am Additional Source Comments INFORMATION SOURCE (unrecogn ized section and content) DATE CREATED AUTHOR 08/07/2022 [facility] DATE CREATED AUTHOR AUTHOR'S ORGANIZ ATION 11/15/2022 [facility] DATE CREATED AUTHOR AUTHOR'S ORGANIZ ATION 03/27/2025 [facility] DATE CREATED AUTHOR AUTHOR'S ORGANIZ ATION 04/24/2025 [facility] EPIC Care Teams (unrecognized sec tion and content) Direct Marketing Representative Relationship Specialty Start Date End Date Zachary Araya DO [address] [place] [address] PCP - General Family Medicine 04/09/23 Zachary Araya DO [address] [place] [address] PCP - [facility] 06/09/24 Team Status: Active Member Role Status Dates Divina Araya , Primary Care Provider Active Team Status: Inactive Member Role Status Dates Divina Araya , Primary Care Provider Active Vivian Nieto MANAGER SPANISH- Emergency Provider Active Goals (unrecognized section and [...] BE BASED ON THE PRIMARY CLINICAL RECORDS. [facility] [employer] provides no warranty or guarantee of the accuracy or completeness of information in this document.
[2025-04-24 22:38] VITALS: BP 106/56; PULSE 87
[2025-04-24 23:07] LABS: Glucose Urine UA NEGATIVE (NEGATIVE)
--- NOTE | 2025-04-24 23:46 | PC.NURSE ---
2320- Patient educated on labor precautions, fluid intake and plan of care. Questions answered and patient states understanding.
== END 2025-04-24 23:35 | disposition home or self-care (01) ==
LOC: FBC 22:26
PROVIDERS: Admitting Provider Obstetrics & Gynecology; PCP Family Medicine; Visit Provider Obstetrics & Gynecology
DX: O47.03 False labor before 37 completed weeks of gestation, third trimester (principal); Z3A.33 33 weeks gestation of pregnancy
CPT/HCPCS: 59025; 81003; G0378; G0379

== ENCOUNTER 2025-05-13 14:40 | Outpatient (REF) | payer OTHER, SELFPAY ==
--- OUTSIDE RECORDS SUMMARY | 2020-06-02 09:45 | XMS_ITS | Continuity of Care Document ---
Author Organization [facility] Address [address] [place] [address] Phone Care Team Providers Care Switchgear Repairer Name Role Phone Andres Edgar Unavailable Unavailable [...] Diagnoses Date Provider Providers Copied on Encounter [facility], [address] [place], [place], [id number], tel:[phone] [facility] No Information Edward Arciniega. [address] [place], [place], [id number], [place]. tel:[phone] [facility], [address] [place], [place], [id number], [place] tel:[phone] [facility] No Information Edward Arciniega. [address] [place], [place], [id number], [place]. tel:[phone] OFFICE/OUTPATI ENT VISIT, [facility], [address] [place], [place], [id number], [place] tel:[phone] [facility] No Information Edward Arciniega. [address] [place], [place], [id number], [place]. tel:[phone] OFFICE/OUTPATI ENT VISIT, [facility], [address] [place], [place], [id number], [place] tel:[phone] [facility] No Information Edward Arciniega. [address] [place], [place], [id number], [place]. tel:[phone] Family History Family Member Type Diagnosis Age [...] Authoriza tion(s) Medicaid Wrap [place] [facility] [place] [id number] [place] [facility] [place] [id number] Medicaid [place] - [facility] [place] [id number] Social History Type Description Quantity Date Captured [...]
--- OUTSIDE RECORDS SUMMARY | 2025-05-03 14:50 | XMS_ITS | Encounter Summary ---
Author Organization [facility] Address [address] [place] [address] Care Team Providers Care Msw Name Role Phone Diego Araya DO Primary Care Provider [phone] Diego Araya DO Unavailable [phone] Reason for Visit * Reason Comments Routine Visit Encounter Details Date Type Department Care Team (Late st Contact Info) Description 05/03/2025 2:50 PM EDT Office Visit [facility] [address] [address] Cira Chairez PA [address] [place], [facility] Third trimester ([facility]); 35 weeks gestation of ([facility]) Social History Tobacco Use Types Packs/Day Years [...] on file documented as of this encounter Progress Notes * KEVIN Guevara - 05/03/2025 2:50 PM EDT Reason for Appointment: Patient ID: Dawn Cuellar is a 25 y.o. female who presents for Routine Visit Patient presents today for Return OB appointment. MEDICATIONS Current Outpatient Medications Medication Instructions albuterol HFA 90 mcg/act inhaler 2 puffs, Inhalation, Every 4 hours PRN fluticasone (Flonase) 50 MCG/ACT nasal spray 2 sprays, Daily omeprazole (PRILOSEC) 20 mg, Oral, Daily before breakfast, Do not crush or chew. Stfiyujo-Dcj-Dn-FA ( 1 + IRON PO) 1 tablet, Daily ALLERGIES Allergies Allergen Reactions Tilactase Diarrhea Amoxicillin Unknown Other Reaction(s): Unknown Reaction Milk (Cow) Unknown Other Reaction(s): Unknown Reaction PROBLEMS Active Ambulatory Problems Diagnosis Date Noted Anxiety 04/09/2023 Asthma (HCC) 04/09/2023 Gastroesophageal reflux disease without esophagitis 04/09/2023 Left wrist pain 04/09/2023 Multiple joint pain 04/09/2023 PTSD (post-traumatic stress disorder) 12/20/2023 depression 12/20/2023 Marijuana abuse 04/28/2024 Second trimester ([facility]) 02/22/2025 25 weeks gestation of ([facility]) 02/22/2025 Resolved Ambulatory Problems Diagnosis Date Noted [...] reviewed. Vitals: Estimated body mass index is 23.5 kg/m?? as calculated from the following: Height as of 04/29/24: 5' 2 . Weight as of 04/22/25: 128 lb 8 oz. BP: Patient's last menstrual period was 08/31/2024. ASSESSMENT & PLAN ICD-10-CM 1. Third trimester ([facility]) Z34.93 POCT urinalysis dipstick manually resulted 2. 35 weeks gestation of ([facility]) Z3A.35 POCT urinalysis dipstick manually resulted Return OB: Patient presents today for a routine obstetrics appointment. Patient is currently 35w0d . Patient states she is doing well but has complaints of being tired due to current . Patient has verbalizes frequent movement. labor precautions was discussed/given and patient was instructed to perform kick counts three times a day. Pt seen at [facility] for contractions. Pt given fluids and stopped lindsey. Pt here for follow up. Jona see her in one week for GBS Orders Placed This Encounter Procedures POCT urinalysis dipstick manually resulted Follow Up: Patient is to return to office in 1 week for routine OB appointment. Documented by KEVIN Guevara on behalf of: KEVIN Guevara documented in this encounter Plan of Treatment Upcoming Encounters Date Type Department Care Team (Late st Contact Info) Description 05/18/2025 10:30 AM EDT Routine [facility] [address] [place] [address] [place] [address] Demarco Orr, DO [address] [place] [address] Dr [place] [phone] documented as of this encounter Procedures Procedure Name Priority Date/Time Associated Diagnosis Comments POCT URINALYSIS DIPSTICK Routine 05/03/2025 3:52 PM EDT Third trimester ([facility]) 35 weeks gestation of ([facility]) documented in this encounter Results * POCT urinalysis dipstick manually resulted (05/03/2025 3:52 PM EDT) Color, UA Yellow Clarity, UA Clear Glucose, UA Negative Negative - 2000(110) ++++ mg/dL Bilirubin, UA Negative Negative - 4(70) +++ mg/dL Ketones, UA Negative Negative - 160(16) ++++ mg/dL Spec Grav, UA 1.010 1 - 1.03 Blood, UA Negative Negative - 50 Regino/mcL pH, UA 6.5 5 - 9 Protein, UA Negative Negative - 2000(20) ++++ mg/dL Urobilinogen, UA 1.0 0.2 - 12 mg/dL Leukocytes, UA Negative Negative - 500+++ Dara/mcL Nitrite, UA Negative Negative - Positive Urine 05/03/2025 3:52 PM EDT Cira BROWN POINT OF CARE TEST ENTER/EDIT OR DERABLES Final Result documented in this encounter Visit Diagnoses Diagnosis Third trimester ([facility]) state, incidental 35 weeks gestation of ([facility]) documented in this encounter Care Teams Msw Relationship Specialty Start Date End Date Diego Araya DO [address] [place] [address] PCP - General Family Medicine 04/09/23 Diego Araya DO [address] [place] [address] PCP - [facility] 06/09/24 documented as of this encounter
--- OUTSIDE RECORDS SUMMARY | 2025-05-13 09:30 | XMS_ITS | Encounter Summary ---
Author Organization [facility] Address [address] [place] [address] Care Team Providers Care Marine Plumber Name Role Phone Diego Araya DO Primary Care Provider [phone] Diego Araya DO Unavailable [phone] Reason for Visit * Reason Comments Routine Visit Encounter Details Date Type Department Care Team (Late st Contact Info) Description 05/13/2025 9:30 AM EDT [facility] [address] [place] [address] Demarco Orr DO [address] [place] [address] 36 weeks gestation of ([facility]); Third trimester ([facility]); Gastroesophageal reflux in ([facility]); Exposure to STD; Vaginal discharge Social History Tobacco Use Types Packs/Day Years [...] Sign Reading Time Taken Comments Blood Pressure 110/70 05/13/2025 10:13 AM EDT Pulse - - Temperature - - Respiratory Rate - - Oxygen Saturation - - Inhaled Oxygen Concentration - - Weight 59.9 kg (132 lb) 05/13/2025 10:13 AM EDT Height - - Body Mass Index 24.14 04/29/2024 3:45 PM EDT documented in this encounter Progress Notes * Cee Everett LPN - 05/13/2025 9:30 AM EDT Reason for Appointment: Patient ID: [...] before breakfast, Do not crush or chew. Eumqpklb-Lpy-Da-FA ( 1 + IRON PO) 1 tablet, [...] depression 12/20/2023 Marijuana abuse 04/28/2024 Second trimester ([facility]) 02/22/2025 25 weeks gestation of ([facility]) 02/22/2025 Resolved Ambulatory Problems Diagnosis Date [...] nursing note reviewed. Exam conducted with a stretcher and drier present. Vitals: Estimated body mass index is 24.14 kg/m?? as calculated from the following: Height as of 04/29/24: 5' 2 . Weight as of this encounter: 132 lb. BP: 110/70 Patient's last menstrual period was 08/31/2024. ASSESSMENT & PLAN ICD-10-CM 1. 36 weeks gestation of ([facility]) Z3A.36 POCT urinalysis dipstick manually resulted 2. Third trimester ([facility]) Z34.93 POCT urinalysis dipstick manually resulted CULTURE, GROUP B STREP WITH SUSCEPTIBLITY CULTURE, GROUP B STREP WITH SUSCEPTIBLITY 3. Gastroesophageal reflux in ([facility]) O99.619 K21.9 4. Exposure to STD Z20.2 CHLAMYDIA TRACHOMATIS (GENITO/STI) Neisseria gonorrhea DNA probe, direct 5. Vaginal discharge N89.8 SURESWAB(R) ADVANCED VAGINITIS PLUS, TMA Patient is doing well but has complaints of being tired and having maternal discomfort due to . Patient verbalized frequent movement and was instructed to perform kick counts three times per day. labor precautions were given, LARC consent was signed/declined, and GBS was obtained. Cervical check was performed and patient is 1cm dilated. Orders Placed This Encounter Procedures CULTURE, GROUP B STREP WITH SUSCEPTIBLITY CHLAMYDIA TRACHOMATIS (GENITO/STI) Neisseria gonorrhea DNA probe, direct POCT urinalysis dipstick manually resulted Follow Up: Patient is to return to office in 1 week for routine OB appointment Documented by Cee Everett LPN on behalf of: Demarco Orr DO documented in this encounter Plan of Treatment Upcoming Encounters Date Type Department Care Team (Late st Contact Info) Description 05/18/2025 10:30 AM EDT Routine [facility] [address] [place] [address] Demarco Orr DO [address] [place] [address] Scheduled Orders Name Type Priority Associated Diagnoses Order Schedule CULTURE, GROUP B STREP WITH SUSCEPTIBLITY Lab Routine Third trimester ([facility]) Expected: 05/13/2025, Expires: 05/13/2026 SURESWAB(R) ADVANCED VAGINITIS PLUS, TMA Pathology and Cytology Routine Vaginal discharge Ordered: 05/13/2025 CHLAMYDIA TRACHOMATIS (GENITO/STI) Lab Routine Exposure to STD Ordered: 05/13/2025 Neisseria gonorrhea DNA probe, direct Lab Routine Exposure to STD Ordered: 05/13/2025 documented as of this encounter Procedures Procedure Name Priority Date/Time Associated Diagnosis Comments POCT URINALYSIS DIPSTICK Routine 05/13/2025 10:22 AM EDT 36 weeks gestation of ([facility]) Third trimester ([facility]) documented in this encounter Results * POCT urinalysis dipstick manually resulted (05/13/2025 10:22 AM EDT) Color, UA Yellow Clarity, UA Clear Glucose, UA Negative Negative - 2000(110) ++++ mg/dL Bilirubin, UA Negative Negative - 4(70) +++ mg/dL Ketones, UA Negative Negative - 160(16) ++++ mg/dL Spec Grav, UA 1.015 1 - 1.03 Blood, UA Negative Negative - 50 Regino/mcL pH, UA 7.5 5 - 9 Protein, UA Negative Negative - 2000(20) ++++ mg/dL Urobilinogen, UA 1.0 0.2 - 12 mg/dL Leukocytes, UA Negative Negative - 500+++ Dara/mcL Nitrite, UA Negative Negative - Positive Urine 05/13/2025 10:2 2 AM EDT Demarco Orr DO POINT OF CARE TEST ENTER/EDIT OR DERABLES Final Result documented in this encounter Visit Diagnoses Diagnosis 36 weeks gestation of ([facility]) Third trimester ([facility]) state, incidental Gastroesophageal reflux in ([facility]) Exposure to STD Vaginal discharge Leukorrhea, not specified as infective documented in this encounter Care Teams Marine Plumber Relationship Specialty Start Date End Date Diego Araya DO [address] [place] [address] PCP - General Family Medicine 04/09/23 Diego Araya DO [address] [place] [address] PCP - [facility] 06/09/24 documented as of this encounter
--- OUTSIDE RECORDS SUMMARY | 2025-05-13 14:43 | XMS_ITS | Encounter Summary ---
Author Organization [facility] Address [address] [place] [address] Care Team Providers Care Web Ui Software Engineer Name Role Phone Quiana Diego Artis DO Primary Care Provider [phone] Diego Araya DO Unavailable [phone] Encounter Details Date Type Department Care Team (Late Contact Info) Description 12/10/2024 Abstract [facility] [address] [place] [address] Demarco Orr DO [address] [place], [facility] Social History Tobacco Use Types Packs/Day Years [...] Department Care Team (Late Contact Info) Description 05/18/2025 10:30 AM EDT Routine [facility] [address] [place] [address] Demarco Orr DO [address] [place] [address] [place] [address] documented as of this encounter Visit Diagnoses Not on filedocumented in this encounter Care Teams Web Ui Software Engineer Relationship Specialty Start Date End Date Diego Araya DO [address] [place] [address] PCP - General Family Medicine 04/09/23 Diego Araya DO [address] [place] [address] PCP - [facility] 06/09/24 documented as of this encounter
--- OUTSIDE RECORDS SUMMARY | 2025-05-13 14:43 | XMS_ITS | Encounter Summary ---
Author Organization [facility] Address [address] [place] [address] Care Team Providers Care Project Inspector Name Role Phone Quiana Diego Artis DO Primary Care Provider [phone] Diego Araya DO Unavailable [phone] Encounter Details Date Type Department Care Team (Late Contact Info) Description 01/27/2025 Abstract [facility] [address] [place] [address] Demarco Orr DO [address], [facility] Social History Tobacco Use Types Packs/Day Years [...] EDT Routine [facility] [address] [place] [address] Demarco Orr DO [address] [place] [address] [place] [address] documented as of this encounter Visit Diagnoses Not on filedocumented in this encounter Care Teams Project Inspector Relationship Specialty Start Date End Date Diego Araya DO [address] [place] [address] PCP - General Family Medicine 04/09/23 Diego Araya DO [address] [place] [address] PCP - [facility] 06/09/24 documented as of this encounter
--- OUTSIDE RECORDS SUMMARY | 2025-05-13 14:43 | XMS_ITS | Encounter Summary ---
Author Organization [facility] Address [address] [facility] [place] [address] Care Team Providers Care Compressor Technician Name Role Phone Diego Araya DO Primary Care Provider [phone] Diego Araya DO Unavailable [phone] Encounter Details Date Type Department Care Team (Late Contact Info) Description 01/27/2025 Abstract [facility] [address] [place] [id number] Diego Araya DO [address] [place], [place] [id number] Social History Tobacco Use Types Packs/Day Years [...] Description 05/18/2025 10:30 AM EDT Routine [facility] [address] [place] [address] Demarco Orr DO [address] [place] [address] [place] [address] documented as of this encounter Visit Diagnoses Not on filedocumented in this encounter Care Teams Compressor Technician Relationship Specialty Start Date End Date Diego Araya DO [address] [place] [address] PCP - General Family Medicine 04/09/23 Diego Araya DO [address] [place] [address] PCP - [facility] 06/09/24 documented as of this encounter
--- OUTSIDE RECORDS SUMMARY | 2025-05-13 14:43 | XMS_ITS | Continuity of Care Document ---
Author Organization [facility] Address [address] [place] [address] Phone [phone] Care Team Providers Care Spinning Frame Cleaner Name Role Phone Kayy Fontana MD Care Team Information Casiei eunice Unavailable SYED KAMARA MD Care Team Information Rece iver Unavailable Kayy Fontana MD Primary Care Physician Unav ailable Allergies and adverse reactions Active Allergies Criticality Reaction Severity Comments Date Amoxicillin Unable to assess criticality Weal (disorder) 11/15/2022
--- OUTSIDE RECORDS SUMMARY | 2025-05-13 14:43 | XMS_ITS | Encounter Summary ---
Author Organization [facility] Address [address] [place] [address] Care Team Providers Care Reel Repairer Name Role Phone Sherice Camarillo HOG PUSHER Unavailable [phone] Diego Araya DO Primary Care Provider Diego Araya DO Unavailable [phone] Martin Phipps Unavailable Diego Araya DO Unavailable Vicky Robles LPN Unavailable Unavailable Encounter Details Date Type Department Care Team (Late st Contact Info) Description 03/14/2023 Abstract [facility] [address] [place] [address] Demarco Orr DO [address] [place] [place], [facility]11 Social History Tobacco Use Types Packs/Day [...] 10:30 AM EDT Routine [facility] [address] [place] [address] Demarco Orr DO [address] [place] [address] documented as of this encounter Visit Diagnoses Not on filedocumented in this encounter Care Teams Reel Repairer Relationship Specialty Start Date End Date Sherice Camarillo, HOG PUSHER [address] [place] [address] PCP - [facility] 03/09/23 Diego Araya DO [address] [place] [address] PCP - General Family Medicine 04/09/23 Diego Araya DO [address] [place] [address] PCP - [facility] 12/09/23 Martin Phipps PA [address] [place] [address] PCP - [facility] 03/09/24 Diego Araya DO [address] [place] [address] PCP - [facility] 06/09/24 Vicky Robles LPN Licensed Practical Nurse Family Medicine 10/01/2410/08 documented as of this encounter
--- OUTSIDE RECORDS SUMMARY | 2025-05-13 14:43 | XMS_ITS | Patient Health Record ---
Author Organization [facility] [employer] [facility] Address [address] [place] [address] Care Team Providers Care Repair Servicer Name Role Phone Toy Tee Primary Care Provider [phone] Reason For Referral No Information Plan Of Treatment No Information Insurance Providers Payer Name Payer Address Payer Phone Subscriber Number Group Number Insured Name Patient Relationship to Insured Coverage Start Date Coverage End Date Dental [place] [employer] [address] [address] [place] [address] [id number] KATHY MAJOR Self - patient is the insured 3 Dental Wrap [facility] [place] [address] [place] [address] [phone] [id number] KATHY MAJOR Self - patient is the insured 3
--- OUTSIDE RECORDS SUMMARY | 2025-05-13 14:43 | XMS_ITS | Encounter Summary ---
Author Organization [facility] Address [address] [place] [address] Care Team Providers Care Director Of Corporate Communications Name Role Phone Quiana Diego Artis DO Primary Care Provider [phone] DerianDiego tabares DO Unavailable [phone] Encounter Details Date Type Department Care Team (Late Contact Info) Description 05/03/2025 Bamboo flowsheet [facility] [address] [place] [address] Cira Chairez PA [address] [facility] [address] [place], [facility]11 Social History Tobacco Use Types Packs/Day [...] 05/18/2025 10:30 AM EDT Routine [facility] [address] [place] [address] Demarco Orr DO [address] [place] [address] [place] [address] documented as of this encounter Visit Diagnoses Not on filedocumented in this encounter Care Teams Director Of Corporate Communications Relationship Specialty Start Date End Date Diego Araya DO [address] [place] [address] PCP - General Family Medicine 04/09/23 Diego Araya DO [address] [place] [address] PCP - [facility] 06/09/24 documented as of this encounter
--- OUTSIDE RECORDS SUMMARY | 2025-05-13 14:43 | XMS_ITS | Encounter Summary ---
Author Organization [facility] Address [address] [place] [address] Care Team Providers Care Molder Setter Name Role Phone Quiana Diego Artis DO Primary Care Provider [phone] Diego Araya DO Unavailable [phone] Encounter Details Date Type Department Care Team (Late Contact Info) Description 11/05/2024 Abstract [facility] [address] [place] [id number] Demarco Orr DO [address] [place], [facility]11 Social History Tobacco Use [...] EDT Routine [facility] [address] [place] [address] Demarco Orr DO [address] [place] [address] [place] [address] documented as of this encounter Visit Diagnoses Not on filedocumented in this encounter Care Teams Molder Setter Relationship Specialty Start Date End Date Diego Araya DO [address] [place] [address] PCP - General Family Medicine 04/09/23 Diego Araya DO [address] [place] [address] PCP - [facility] 06/09/24 documented as of this encounter
--- OUTSIDE RECORDS SUMMARY | 2025-05-13 14:43 | XMS_ITS | Encounter Summary ---
Author Organization [facility] Address [address] [place] [address] Care Team Providers Care Forest Science Professor Name Role Phone Quiana Diego Artis DO Primary Care Provider Diego Araya DO Unavailable [phone] Encounter Details Date Type Department Care Team (Late Contact Info) Description 11/05/2024 Abstract [facility] [address] [place] [address] Demarco Orr DO [address] [place], [facility]11 Social History Tobacco Use Types Packs/Day Years [...] EDT Routine [facility] [address] [place] [address] Demarco Orr DO [address] [place] [address] [place] [address] documented as of this encounter Visit Diagnoses Not on filedocumented in this encounter Care Teams Forest Science Professor Relationship Specialty Start Date End Date Diego Araya DO [address] [place] [address] PCP - General Family Medicine 04/09/23 Diego Araya DO [address] [place] [address] PCP - [facility] 06/09/24 documented as of this encounter
--- OUTSIDE RECORDS SUMMARY | 2025-05-13 14:43 | XMS_ITS | Encounter Summary ---
Author Organization [facility] Address [address] [place] [address] Care Team Providers Care Occupational Health Technician Name Role Phone Diego Araya DO Primary Care Provider [phone] Diego Araya DO Unavailable [phone] Encounter Details Date Type Department Care Team (Late st Contact Info) Description 03/17/2025 Abstract [facility] [address] [facility] [place] [address] Eileen Koehler MA Social History Tobacco [...] Info) Description 05/18/2025 10:30 AM EDT Routine [facility] [address] [facility] [address] Demarco Orr DO [address] [place], [place] [id number] documented as of this encounter Visit Diagnoses Not on filedocumented in this encounter Care Teams Occupational Health Technician Relationship Specialty Start Date End Date Diego Araya DO [address] [place] [address] PCP - General Family Medicine 04/09/23 Diego Araya DO [address] [place] [address] PCP - [facility] 06/09/24 documented as of this encounter
--- OUTSIDE RECORDS SUMMARY | 2025-05-13 14:43 | XMS_ITS | Encounter Summary ---
Author Organization [facility] Address [address] [place] [address] Care Team Providers Care Vc++ Developer Name Role Phone Quiana Diego Artis DO Primary Care Provider [phone] Diego Araya DO Unavailable [phone] Encounter Details Date Type Department Care Team (Late Contact Info) Description 12/04/2024 Abstract [facility] [address] [place] [address] Demarco Orr DO [address] [place], [facility]11 Social History Tobacco Use Types Packs/Day [...] EDT Routine [facility] [address] [place] [address] Demarco Orr DO [address] [place] [address] [place] [address] documented as of this encounter Visit Diagnoses Not on filedocumented in this encounter Care Teams Vc++ Developer Relationship Specialty Start Date End Date Diego Araya DO [address] [place] [address] PCP - General Family Medicine 04/09/23 Diego Araya DO [address] [place] [address] PCP - [facility] 06/09/24 documented as of this encounter
--- OUTSIDE RECORDS SUMMARY | 2025-05-13 14:43 | XMS_ITS | Encounter Summary ---
Author Organization [facility] Address [address] [place] [address] Care Team Providers Care Yeast Supervisor Name Role Phone QuianaDiego Steff DOBBINS Primary Care Provider [phone] DerianDiego tabares DO Unavailable [phone] Encounter Details Date Type Department Care Team (Late Contact Info) Description 02/09/2025 Orders Only [facility] [address] [place] [address] Cee Everett LPN [address] [facility] JERRY [id number] Social History Tobacco Use Types Packs/Day Years [...] Description 05/18/2025 10:30 AM EDT Routine [facility] [address] [place] [address] Demarco Orr DO [address] [place] [address] Dr [place] [id number] documented as of this encounter Procedures Procedure Name Priority Date/Time Associated Diagnosis Comments PAP SMEAR Routine 01/25/2025 12:00 AM EDT documented in this encounter Results * Pap Smear (01/25/2025 12:00 AM EDT) Swab Cervical swab / Unknown Kirby Nurse [facility] Ob LAB CYTOLOGY ORDERABLES Final Result EXTERNAL LAB documented in this encounter Visit Diagnoses Not on filedocumented in this encounter Care Teams Yeast Supervisor Relationship Specialty Start Date End Date Diego Araya DO [address] [place] [address] PCP - General Family Medicine 04/09/23 Diego Araya DO [address] [place] [address] PCP - [facility] 06/09/24 documented as of this encounter
--- OUTSIDE RECORDS SUMMARY | 2025-05-13 14:43 | XMS_ITS | Encounter Summary ---
Author Organization [facility] Address [address] [place] [address] Care Team Providers Care Teacher Advisor Name Role Phone Quiana Diego Artis DO Primary Care Provider [phone] DerianDiego tabares DO Unavailable [phone] Encounter Details Date Type Department Care Team (Late Contact Info) Description 05/13/2025 Bamboo flowsheet [facility] [address] [place] [address] Demarco Orr DO [address], [facility]11 Social History Tobacco Use Types [...] AM EDT Routine [facility] [address] [place] [address] Demarco Orr DO [address] [place] [address] [place] [address] documented as of this encounter Visit Diagnoses Not on filedocumented in this encounter Care Teams Teacher Advisor Relationship Specialty Start Date End Date Diego Araya DO [address] [place] [address] PCP - General Family Medicine 04/09/23 Diego Araya DO [address] [place] [address] PCP - [facility] 06/09/24 documented as of this encounter
--- OUTSIDE RECORDS SUMMARY | 2025-05-13 14:43 | XMS_ITS | Clinical Summary ---
Author Organization [facility] Address [address] [place] [address] Care Team Providers Care Medical Payment Poster Name Role Phone Diego Araya DO Primary Care Provider [phone] Diego Araya DO Unavailable [phone] Allergies Active Allergy Reactions Criticality Noted Date Comments Amoxicillin Unknown 04/09/2023 Other Reaction(s): Unknown Reaction Milk (Cow) Unknown 04/17/2024 Other Reaction(s): Unknown Reaction Tilactase Diarrhea High 05/31/2020 Medications albuterol HFA 90 mcg/act inhalerIndication s:Mild intermittent asthma, unspecified whether complicated ([facility]) Inhale 2 puffs every 4 (four) hours if needed for wheezing or shortness of breath 18 g 3 4 Active Brmxwhad-Tel-Nb-F A ( 1 + IRON PO) Take 1 tablet by mouth Daily Active fluticasone (Flonase) 50 MCG/ACT nasal spray Administer 2 sprays into each nostril Daily 5 Active omeprazole (PriLOSEC) [address] capsuleIndication s:Gastroesophagea l Reflux Disease,Heartburn Take 1 capsule (20 mg) by mouth in the morning. Take before meals. Do not crush or chew. 30 capsule 3 5 Active Active Problems Problem Noted Date Diagnosed Date Second trimester ([facility]) 02/22/2025 25 weeks gestation of ([facility]) 2024 Marijuana abuse 04/28/2024 PTSD (post-traumatic stress [...] Encounters Date Type Department Care Team Description 05/13/2025 9:30 [place] [id number] Demarco Orr DO 36 weeks gestation of ([facility]); Third trimester ([facility]); Gastroesophageal reflux in ([facility]); Exposure to STD; Vaginal discharge 05/13/2025 [place] [phone] Demarco Orr DO 05/03/2025 2:50 [place] [address] Cira Chairez PA Third trimester ([facility]); 35 weeks gestation of ([facility]) 05/03/2025 [place] [phone] Cira Chairez PA 04/22/2025 11:00 [place] [address] Demarco Orr DO Third trimester ([facility]); 33 weeks gestation of ([facility]) 04/22/2025 10:30 AM [place] [address] Size of fetus inconsistent with dates in first trimester ([facility]) 03/29/2025 3:50 PM EDT Routine [facility] [address] [place] [address] Cira Chairez PA Size of fetus inconsistent with dates in first trimester ([facility]) (Primary Dx); Third trimester ([facility]); 30 weeks gestation of ([facility]); Gastroesophageal reflux in ([facility]) 03/29/2025 Clinisync Result Encounter [facility] External Department Unsolicited Provider, Generic External Data 03/29/2025 Bamboo flowsheet [facility] [address] [place] [address] Cira Chairez PA 03/17/2025 Abstract [facility] [address] [facility] [place] [address] Eileen Koehler MA 03/01/2025 Patient Outreach [facility] [address] [facility] [place] [address] Cira Figueroa LPN 02/25/2025 Telephone [facility] [address] [place] [address] Mo Boucher LPN ER Follow-up 02/24/2025 Abstract [facility] [address] [place] [address] Diego Araya DO 02/22/2025 1:50 PM EDT Routine [facility] [address] [place] [address] Demarco Orr DO Second trimester ([facility]); 25 weeks gestation of ([facility]); Diabetes mellitus screening; Gastroesophageal reflux in ([facility]) 02/22/2025 Bamboo flowsheet [facility] [address] [facility] [place] [address] Demarco Orr DO from Last 3 Months Immunizations Immunization Administration [...] Pressure 110/70 05/13/2025 10:13 AM EDT Pulse 92 08/25/2024 3:22 PM EST Temperature 36.5 C (97.7 F) 08/25/2024 3:22 PM EST Respiratory Rate - - Oxygen Saturation 99% 08/25/2024 3:22 PM EST Inhaled Oxygen Concentration - - Weight 59.9 kg (132 lb) 05/13/2025 10:13 AM EDT Height 157.5 cm (5' 2 ) 04/29/2024 3:45 PM EDT Body Mass Index 24.14 04/29/2024 3:45 PM EDT Plan of Treatment Upcoming Encounters Date Type Department Care Team (Late st Contact Info) Description 05/18/2025 10:30 AM EDT Routine [facility] [address] [facility] [place] [address] Demarco Orr DO [address] [facility] [address] Health Maintenance Due Date Last Done Comments Influenza Vaccine (#1) 2025 06/02/2015 Procedures Procedure Name Priority Date/Time Associated Diagnosis Comments POCT URINALYSIS DIPSTICK Routine 05/13/2025 10:22 AM EDT 36 weeks gestation of ([facility]) Third trimester ([facility]) POCT URINALYSIS DIPSTICK Routine 05/03/2025 3:52 PM EDT Third trimester ([facility]) 35 weeks gestation of ([facility]) POCT URINALYSIS DIPSTICK Routine 04/22/2025 11:03 AM EDT Third trimester ([facility]) US OB FOLLOW UP TRANSABDOMINAL APPROACH Routine 04/22/2025 10:46 AM EDT Size of fetus inconsistent with dates in first trimester ([facility]) MLR HEMOGLOBIN A1C Routine 03/29/2025 4: 39 PM EDT ALL CBC WITH AUTO DIFF Routine 4:39 PM EDT POCT URINALYSIS DIPSTICK Routine 03/29/2025 3:59 PM EDT Third trimester ([facility]) POCT URINALYSIS DIPSTICK Routine 02/22/2025 2:20 PM EDT Second trimester ([facility]) 25 weeks gestation of ([facility]) from Last 3 Months Results * POCT urinalysis dipstick manually resulted (05/13/2025 10:22 AM EDT) Only the most recent of5 resultswithin the time period is included. Color, [...] Positive Urine 05/13/2025 10:2 2 AM EDT [facility] POINT OF CARE TEST ENTER/EDIT OR DERABLES Final Result * US OB follow up transabdominal approach (04/22/2025 10:46 AM EDT) Anatomical Region Laterality Modality Body Ultrasound 04/26/2025 1:59 PM EDT Impressions 04/26/2025 2:31 PM EDT 1. Single, live intrauterine , current sonographic age of 32 weeks and 6 days, with an estimated date of delivery of June 11, 2025. 2. Prior delivery date was June 10, 2025. * Estimated Weight (g) by Percentile is based upon an accurate estimated age based on last menstrual period. TRANSCRIBED BY: ELECTRONICALLY SIGNED BY: Zev Wilde MD Narrative 04/26/2025 2:31 PM EDT FINDINGS: Comparison made with prior examination of November 05, 2024. A single, live intrauterine is present with normal cardiac rate of 153 beats per minute. Normal activity and amniotic fluid volume. Morphology is grossly normal. The current sonographic age is 32 weeks and 6 days, based on the following measurements: BPD 8.6 cm34 ( weeks, 4 days) Head Circumference 29.9 cm ( 33 weeks, 1 days) Abdominal Circumference 27.9cm ( 32 weeks,0 days) Femur Length 6.5cm (33 weeks,2 days) Presentation Cephalic Weight (g) by Percentile 22.2%% * These measurements result in an estimated date of delivery of June 11, 2025 . The current estimated weight is 20.35 +/-305 grams ( 4 pound, 8 ounces). Procedure Note Zev Wilde MD - 04/26/2025 FINDINGS: Comparison made with prior examination of November 05, 2024. Asingle, live intrauterine is present with normal cardiacrate of 153 beats per minute. Normal activity and amniotic fluidvolume. Morphology is grossly normal. The current sonographic age is 32weeks and 6 days, based on the following measurements: BPD 8.6 cm34 ( weeks, 4 days) Head Circumference 29.9 cm ( 33 weeks, 1 days) Abdominal Circumference 27.9cm ( 32 weeks,0 days) Femur Length 6.5cm (33 weeks,2 days) Presentation Cephalic Weight (g) by Percentile 22.2%% * These measurements result in an estimated date of delivery of June . The current estimated weight is 20.35 +/-305 grams ( 4pound, 8 ounces). IMPRESSION: 1. Single, live intrauterine , current sonographic age of 32weeks and 6 days, with an estimated date of delivery of June 11, 2025. 2. Prior delivery date was June 10, 2025. * Estimated Weight (g) by Percentile is based upon an accurateestimated age based on last menstrual period. TRANSCRIBED BY: ELECTRONICALLY SIGNED BY: Zev Wilde MD us Cira BROWN IMG OB US PROCEDURES Final Resul t * MLR HEMOGLOBIN A1C (03/29/2025 4:39 PM EDT) [facility] GLYCOHEMOGLOBIN A1C 5.0 4.5 - 6.2 % TB Comment: ADA RECOMMENDED LIMIT 4.0 - 6.0 ADA THERAPEUTIC TARGET < 7.0 ACTION SUGGESTED > 7.0 ESTIMATED AVERAGE GLUCOSE 97 mg/dL TB 03/29/2025 4:39 PM EDT 03/29/2025 4:41 PM EDT Narrative [facility] - 03/29/2025 5:03 PM EDT Cira BROWN [facility] Final Result [facility] * (ABNORMAL) ALL CBC WITH AUTO DIFF (03/29/2025 4:39 PM EDT) [facility] TB WBC 11.7(H) 4.0 - 11.0 10 3/uL [facility]H TBH RBC 3.79(L) 4.20 - 5.40 10 6/uL TBH TBH HGB 11.1(L) 12.0 - 16.0 g/dL TBH TB HCT 33.8(L) 36.0 - 48.0 % TBH TBH MCV 89.2 81.0 - 99.0 fL TBH TBH MCH 29.3 26.7 - 34.0 pg TBH TBH MCHC 32.8 29.9 - 35.2 g/dL TBH TB RDW 12.8 11.0 - 15.0 % TBH TBH PLT 256 150 - 450 10 3/uL TBH TBH MPV 9.1(L) 9.5 - 13.5 fL TBH NEUTROPHILS PERCENT AUTO 77.3(H) 43.0 - 75.0 % TBH LYMPHOCYTES PERCENT AUTO 14.7(L) 20.5 - 60.0 % [facility] MONOCYTES PERCENT AUTO 4.7 1.7 - 12.0 % [facility]H TBH EO % 2.2 0.9 - 7.0 % TB[facility] BASOPHILS PERCENT AUTO 0.2 0.2 - 2.0 % [facility] IMMATURE GRANULOCYTES PCT AUTO 0.9(H) 0.0 - 0.5 % [facility]H NEUTROPHILS ABSOLUTE AUTO 9.1(H) 1.4 - 6.5 10 3/uL TBH LYMPHOCYTES ABSOLUTE AUTO 1.7 1.2 - 3.8 10 3/uL TB[facility] MONOCYTES ABSOLUTE AUTO 0.6 0.3 - 0.8 10 3/uL TBH TBH EO # 0.3 0.0 - 0.7 10 3/uL TBH BASOPHILS ABSOLUTE AUTO 0.0 0.0 - 0.1 10 3/uL [facility] IMMATURE GRANULOCYTES ABS AUTO 0.10(H) 0.00 - 0.03 10 3/uL TBH 03/29/2025 4:39 PM EDT 03/29/2025 4:41 PM EDT Narrative [facility] - 03/29/2025 4:44 PM EDT Cira BROWN [facility] Final Result [facility] from Last 3 Months Insurance [employer] Care Teams Medical Payment Poster Relationship Specialty Start Date End Date Diego Araya DO [address] [place] [address] PCP - General Family Medicine 04/09/23 Diego Araya DO [address] [place] [address] PCP - [facility] 06/09/24
--- OUTSIDE RECORDS SUMMARY | 2025-05-13 14:43 | XMS_ITS | Encounter Summary ---
Author Organization [facility] Address [address] [place] [address] Care Team Providers Care K 12 Principal Name Role Phone Diego Araya DO Primary Care Provider [phone] Diego Araya DO Unavailable [phone] Encounter Details Date Type Department Care Team (Late Contact Info) Description 02/24/2025 Abstract [facility] [address] [place] [id number] Diego Araya DO [address] [place], [place] [id number] Social History Tobacco Use Types Packs/Day Years [...] [facility] [address] [place] [address] Demarco Orr DO [address] [place] [address] [place] [address] documented as of this encounter Visit Diagnoses Not on filedocumented in this encounter Care Teams K 12 Principal Relationship Specialty Start Date End Date Diego Araya DO [address] [place] [address] PCP - General Family Medicine 04/09/23 Diego Araya DO [address] [place] [address] PCP - [facility] 06/09/24 documented as of this encounter
--- OUTSIDE RECORDS SUMMARY | 2025-05-13 14:44 | XMS_ITS | Encounter Summary ---
Author Organization [facility] Address [address] [place] [address] Care Team Providers Care Seismograph Helper Name Role Phone Sherice Camarillo FOOD SAFETY DIRECTOR Unavailable [phone] Diego Araya DO Primary Care Provider Diego Araya DO Unavailable [phone] Martin Phipps Unavailable Diego Araya DO Unavailable [phone] Vicky Robles LPN Unavailable Unavailable Encounter Details Date Type Department Care Team (Late st Contact Info) Description 03/06/2023 Abstract [facility] [address] [place] [address] Demarco Orr DO [address] [place], [facility] Social History Tobacco Use Types Packs/Day [...] 10:30 AM EDT Routine [facility] [address] [facility] [place] [address] Demarco Orr DO [address] [place] [address] documented as of this encounter Visit Diagnoses Not on filedocumented in this encounter Care Teams Seismograph Helper Relationship Specialty Start Date End Date Sherice Camarillo, FOOD SAFETY DIRECTOR [address] [place] [address] PCP - [facility] 03/09/23 Diego Araya DO [address] [place] [address] PCP - General Family Medicine 04/09/23 Diego Araya DO [address] [place] [address] PCP - [facility] 12/09/23 Martin Phipps PA [address] [place] [address] PCP - [facility] 03/09/24 Diego Araya DO [address] [place] [address] PCP - [facility] 06/09/24 Vicky Robles LPN Licensed Practical Nurse Family Medicine 10/01/2410/08 documented as of this encounter
--- OUTSIDE RECORDS SUMMARY | 2025-05-13 14:44 | XMS_ITS | Encounter Summary ---
Author Organization [facility] Address [address] [place] [address] Care Team Providers Care Biodiesel Product Development Manager Name Role Phone Sherice Camarillo TIER OVER Unavailable [phone] Diego Araya DO Primary Care Provider [phone] Diego Araya DO Unavailable Martin Phipps Unavailable Diego Araya DO Unavailable Vicky Robles LPN Unavailable Unavailable Encounter Details Date Type Department Care Team (Late st Contact Info) Description 08/21/2023 Abstract [facility] [place] [facility] [address] [place] [phone] Diego Araya DO [address] [facility] [place], [place] [id number] Social History Tobacco Use Types Packs/Day Years [...] AM EDT Routine [facility] [address] [facility] [place] [id number] Demarco Orr DO [address] [facility] [address] [place] [address] documented as of this encounter Visit Diagnoses Not on filedocumented in this encounter Care Teams Biodiesel Product Development Manager Relationship Specialty Start Date End Date Sherice Camarillo, TIER OVER [address] [place] [address] PCP - [facility] 03/09/23 Diego Araya DO [address] [place], [facility] PCP - General Family Medicine 04/09/23 Diego Araya DO [address] [place], [facility] PCP - [facility] 12/09/23 Martin Phipps PA [address] [place] [address] PCP - [facility] 03/09/24 Diego Araya DO [address] [place] [address] PCP - [facility] 06/09/24 Vicky Robles LPN Licensed Practical Nurse Family Medicine 10/01/2410/08 documented as of this encounter
--- OUTSIDE RECORDS SUMMARY | 2025-05-13 14:44 | XMS_ITS | Encounter Summary ---
Author Organization [facility] Address [address] [place] [address] Care Team Providers Care Rerecording Mixer Name Role Phone Sherice Camarillo NP Unavailable [phone] Diego Araya DO Primary Care Provider Diego Araya DO Unavailable [phone] Martin Phipps Unavailable Diego Araya DO Unavailable [phone] Vicky Robles LPN Unavailable Unavailable Encounter Details Date Type Department Care Team (Late st Contact Info) Description 09/10/2023 Orders Only [facility] [address] [facility] [address] [place] [id number] [phone] A, Unknown Practice [address] [id number] Social History Tobacco Use Types Packs/Day Years [...] 10:30 AM EDT Routine [facility] [address] [place] [address] Demarco Orr DO [address] [place] [address] [place] [address] documented as of this encounter Procedures Procedure Name Priority Date/Time Associated Diagnosis Comments ESOPHAGOSCOPY Routine 09/10/2023 12:55 PM EST documented in this encounter Results * Esophagoscopy (09/10/2023 12:55 PM EST) Anatomical Region Laterality Modality Endoscopy us Unknown Practice A ENDOSCOPY PROCEDURE ORDERABLE S Final Result documented in this encounter Visit Diagnoses Not on filedocumented in this encounter Care Teams Rerecording Mixer Relationship Specialty Start Date End Date Sherice Camarillo NP [address] [place] [address] PCP - [facility] 03/09/23 Diego Araya DO [address] [place] [address] PCP - General Family Medicine 04/09/23 Diego Araya DO [address] [place] [address] PCP - [facility] 12/09/23 Martin Phipps PA [address] [place] [address] PCP - [facility] 03/09/24 Diego Araya DO [address] [place] [address] PCP - [facility] 06/09/24 Vicky Robles LPN Licensed Practical Nurse Family Medicine 10/01/2410/08 documented as of this encounter
--- OUTSIDE RECORDS SUMMARY | 2025-05-13 14:44 | XMS_ITS | Encounter Summary ---
Author Organization [facility] Address [address] [facility] [place] [place] [address] Care Team Providers Care Musical Instrument Maker Name Role Phone Sherice Camarillo NP Unavailable [phone] Diego Araya DO Primary Care Provider [phone] Diego Araya DO Unavailable [phone] Martin Phipps Unavailable Diego Araya DO Unavailable [phone] Vicky Robles LPN Unavailable Unavailable Encounter Details Date Type Department Care Team (Late st Contact Info) Description 06/03/2023 Orders Only [facility] [place] [facility] [address] [address] [place] [id number] A, Unknown Practice [address] [place], [place] [id number] Social History Tobacco Use Types Packs/Day Years [...] 10:30 AM EDT Routine [facility] [address] [place] [address] [place] [phone] Demarco Orr DO [address] [facility] [place] [address] documented as of this encounter Procedures Procedure Name Priority Date/Time Associated Diagnosis Comments COLONOSCOPY DIAGNOSTIC Routine 06/03/2023 10:43 AM EDT documented in this encounter Results * COLONOSCOPY DIAGNOSTIC (06/03/2023 10:43 AM EDT) Anatomical Region Laterality Modality Radiographic Erica ging us Unknown Practice A IMG XR PROCEDURES Final Resul t documented in this encounter Visit Diagnoses Not on filedocumented in this encounter Care Teams Musical Instrument Maker Relationship Specialty Start Date End Date Sherice Camarillo, RED [address] [place] [address] PCP - [facility] 03/09/23 Diego Araya DO [address] [place] [address] PCP - General Family Medicine 04/09/23 Diego Araya DO [address] [place] [address] PCP - [facility] 12/09/23 Martin Phipps PA [address] [place] [address] PCP - [facility] 03/09/24 Diego Araya DO [address] [place] [address] PCP - [facility] 06/09/24 Vicky Robles LPN Licensed Practical Nurse Family Medicine 10/01/2410/08 documented as of this encounter
--- OUTSIDE RECORDS SUMMARY | 2025-05-13 15:03 | XMS_ITS | CCD ---
Author Organization [facility] Care Team Providers Care Fare Collector Name Role Phone KIRBY, DR REA Consulting [...] Unavailable DO Divina Araya Primary Care Provider [facility] Vivian Ayala Emergency Provider Bozena Imad Unavailable DO Divina Araya Primary Care Provider MD Jordi Seals Attending Provider DO Divina Araya Primary Care Provider MD Jordi Seals Attending Provider [phone] DO Divina Araya Primary Care Provider [phone] MD Jordi Seals Attending Provider VANESSA Roberson Emergency Provider DO Sedrick Wells Emergency Provider DO Divina Araya Primary Care Provider MIGUEL Phipps Emergency Provider [phone] DO Paramjit Yanes Emergency Provider Diego Araya DO Primary Care Provider Diego Araya DO Unavailable Martin Paige Unavailable Paramjit Yanes DO Emergency Provider Divina Araya DO Primary Care Provider [phone] Frank Castillo MD Attending Provider Derek Phipps PA-C Emergency Provider Divina Araya [...] ORR Attending Unavailable CIRA CHAIREZ Attending Unavailable CARLOS ZARAGOZA Attending Unavailable ANUM CODY Attending Unavailable DEMARCO ORR Attending Unavailable CIRA CHAIREZ Attending Unavailable Allergies Allergy Classification Reported Allergen(s) Allergy Type Date of Onset Reaction(s) Facility (6 sources) Amoxicillin Drug Allergy 4 Unknown Reaction [facility] Repository (8 sources) Milk Drug allergy (disorder) 4 Unknown, Unknown Reaction [facility] Repository (20 sources) Amoxicillin; Translations: [amoxicillin] Drug Allergy 3 Weal (disorder), Unknown [facility] (20 sources) Cow milk Allergy to substance 4 Unknown [facility] (20 sources) Lactase Drug Allergy 0 Diarrhea [facility] (1 source) Amoxicillin Drug Allergy 5 [facility] Repository (1 source) Milk Drug allergy (disorder) 5 [facility] Repository Medications Current Medications Medication Drug Class(es) Dates Sig (Normalized) Sig (Original) [id number] 200 actuat albuterol 0.09 mg/actuat metered dose inhaler (20 sources) beta2-Adrenergic Agonist Start: 12-20-2023 take 2 puff(s) by inhalation every four hours for wheezing albuterol HFA 90 mcg/act inhaler Indications: Mild intermittent asthma, unspecified whether complicated ([facility]) Inhale 2 puffs every 4 (four) hours [...] MG tablet Indications: PTSD (post-traumatic stress disorder) (CMS/HCC) Take 1 tablet (10 mg) by mouth Daily 30 tablet 04/30/2024 11/05/2024 Discontinued Start: 12-29-2022 End: 01-18-2023 take 1 tablet by mouth once daily Citalopram 10 mg tablet Discontinued 10 MG PO Daily December 29, 2022 12:00am January 18, 2023 9:58am fluticasone propionate 0.05 mg/actuat metered dose nasal spray (20 sources) Corticosteroid Start: 04-29-2024 End: 04-30-2025 take [...] 09, 2018 12:00am October 12, 2020 6:28pm [place] (No Known Home Meds) (5 sources) Start: 06-29-2024 [place] (No Kn own Home Meds) Active June 29, 2024 12:00am Start: 01-18-2023 [place] (No Kn own Home Meds) Active January 17, 2023 11:00pm Start: 01-18-2023 [place] (No Kn own Home Meds) Active January 18, 2023 12:00am omeprazole 20 mg delayed release oral capsule (20 sources) Proton Pump Inhibitor Start: 02-22-2025 End: 04-28-2025 take 1 capsule by mouth before mealtime omeprazole (PriLOSEC) [address] capsule Indications: Gastroesophageal Reflux Disease , Heartburn Take 1 capsule (20 mg) by mouth in the morning. Take before meals. Do not crush or chew. 30 capsule 3 03/29/2025 Active Start: 04-17-2024 End: 06-29-2024 take 1 [...] January 30, 2025 12:00am polyethylene glycol [id number] [id number] mg / potassium chloride 2970 mg / sodium bicarbonate 6740 mg / sodium chloride 5860 mg / sodium sulfate 39666 mg powder for oral solution (2 sources) Osmotic Laxative Start: 04-25-2023 take 236 g by mouth once Golytely 236 GM as directed Orally once for 1 days Apr, Active Epqbyxxk-Oky-Pb-FA ( 1 + IRON PO) (20 sources) Xylmpdjx-Cau-Hu-FA ( 1 + IRON PO) Take 1 [...] 28, 2023 1:00am October 13, 2023 2:14pm Prenat.Vits,Maximo,Ajz-Qskh-Vdh ic ( Vitamin) Tablet (12 sources) Start: 01-29-2021 End: 12-29-2022 take 1 tablet by mouth once daily Prenat.Vits,Maximo,Wnz-Qyfh-Gofkl ( Vitamin) Tablet Discontinued 1 TAB PO Daily January 28, 2021 11:00pm December 29, 2022 11:53am Start: 01-29-2021 End: 12-29-2022 take 1 tablet by mouth once daily Prenat.Vits,Maximo,Rca-Pzyy-Rqzyq ( Vitamin) Tablet Discontinued 1 TAB PO [...] Episodic Immunizations and screening for infectious disease (5 sources) Contact with and (suspected) exposure to [...] applicable or unspecified; Translations: [MAT CARE OTH [place] FTL GRTH 3RD TM UNS] Onset: 2 Episodic Other complications of (4 sources) Other specified related conditions, third trimester; Translations: [OTH SPEC PREG RELATED COND 3RD TRI] Onset: 2 Episodic Other complications of (5 sources) Other specified related conditions, second trimester; Translations: [OTH SPEC PREG RELATED COND 2ND TRI] Onset: 2 Episodic Other complications of (6 sources) Gastroesophageal reflux disease in ; Translations: [Diseases of the digestive system complicating , unspecified trimester] 02-22-2025 Episodic Other complications of (2 sources) size does not accord with dates; Translations: [Uterine size-date discrepancy, first trimester] 03-29-2025 Episodic Other female genital disorders (11 sources) Abnormal vaginal bleeding; Translations: [Abnormal uterine and vaginal bleeding, unspecified] 01-18-2023 Chronic Other female genital disorders (4 sources) Vaginal discharge; Translations: [Other specified noninflammatory [...] of ] 01-25-2025 Episodic Residual codes; unclassified (16 sources) Gestation period, 25 weeks; Translations: [25 weeks gestation of ] Onset: 5 02-22-2025 Episodic Residual codes; unclassified (2 sources) Gestation period, 30 weeks; Translations: [30 weeks gestation of ] 03-29-2025 Episodic Residual codes; unclassified (2 sources) Gestation period, 33 weeks; Translations: [33 weeks gestation of ] 04-22-2025 Episodic Residual codes; unclassified (2 sources) Gestation period, 35 weeks; Translations: [35 weeks gestation of ] 05-03-2025 Episodic Residual codes; unclassified (2 sources) Gestation period, 36 weeks; Translations: [36 weeks gestation of ] 05-13-2025 Episodic Sprains and strains (3 sources) Shoulder [...] Range Facility Urinalysis macro (dipstick) panel (U)on 05-13-2025 Bilirubin, UA Negative Negative - 4(70) +++ mg/dL [facility] Blood, UA Negative Negative - 50 Regino/mcL [facility] Clarity, UA Clear [facility] Color, UA Yellow [facility] Glucose, UA Negative Negative - 2000(110) ++++ mg/dL [facility] Interpretation and review of laboratory results Normal [facility] Ketones, UA Negative Negative - 160(16) ++++ mg/dL [facility] Leukocytes, UA Negative Negative - 500+++ Dara/mcL [facility] Nitrite, UA Negative Negative - Positive [facility] pH, UA 7.5 5 - 9 [facility] Protein, UA Negative Negative - 2000(20) ++++ mg/dL [facility] Spec Grav, UA 1.015 1 - 1.03 [facility] Urobilinogen, UA 1.0 0.2 - 12 mg/dL [facility] Urinalysis macro (dipstick) panel (U)on 05-03-2025 Bilirubin, UA Negative Negative - 4(70) +++ mg/dL [facility] Blood, UA Negative Negative - 50 Regino/mcL [facility] Clarity, UA Clear [facility] Color, UA Yellow [facility] Glucose, UA Negative Negative - 1999(110) ++++ mg/dL [facility] Interpretation and review of laboratory results Normal [facility] Ketones, UA Negative Negative - 160(16) ++++ mg/dL [facility] Leukocytes, UA Negative Negative - 500+++ Dara/mcL [facility] Nitrite, UA Negative Negative - Positive [facility] pH, UA 6.5 5 - 9 [facility] Protein, UA Negative Negative - 1999(20) ++++ mg/dL [facility] Spec Grav, UA 1.01 1 - 1.03 [facility] Urobilinogen, UA 1.0 0.2 - 12 mg/dL [facility] US OB FOLLOW UP TRANSABDOMIN AL APPROACHon 04-22-2025 US OB FOLLOW UP TRANSABDOMINAL APPROACH FINDINGS: Comparison made with prior examination of [...] +/-305 grams ( 4 pound, 8 ounces). IMPRESSION: 1. Single, live intrauterine , current sonographic age of 32 weeks and 6 days, with an estimated date of delivery of June 11, 2025. 2. Prior delivery date was June 10, 2025. * Estimated Weight (g) by Percentile is based upon an accurate estimated age based on last menstrual period. TRANSCRIBED BY: ELECTRONICALLY SIGNED BY: Zev Wilde MD Normal Not Available Comment on above: Order Comment: US OB SCAN FOR GROWTH Estimated Date of Delivery: 06/07/25 Gestational Age as of 03/29/2025: 30w0d Urinalysis macro (dipstick) panel (U)on 04-22-2025 Bilirubin, UA Negative Negative - 4(70) +++ mg/dL [facility] Blood, UA Negative Negative - 50 Regino/mcL [facility] Clarity, UA Clear [facility] Color, UA Yellow [facility] Glucose, UA Negative Negative - 1999(110) ++++ mg/dL [facility] Interpretation and review of laboratory results Normal [facility] Ketones, UA Negative Negative - 160(16) ++++ mg/dL [facility] Leukocytes, UA Negative Negative - 500+++ Dara/mcL [facility] Nitrite, UA Negative Negative - Positive [facility] pH, UA 7 5 - 9 [facility] Protein, UA Negative Negative - 1999(20) ++++ mg/dL [facility] Spec Grav, UA 1.015 1 - 1.03 [facility] Urobilinogen, UA 0.2 0.2 - 12 mg/dL [facility] ALL CBC WITH AUTO DIFFon BASOPHILS ABSOLUTE AUTO [address] [facility] Basophils/100 WBC (Bld) 0.2 % 0.2 - 2.0 % [facility] Eosinophils/100 WBC (Bld) 2.2 % 0.9 - 7.0 % [facility] Erythrocyte distribution width (RBC) [Ratio] 12.8 % 11.0 - 15.0 % [facility] Hematocrit (Bld) [Volume fraction] 33.8 % Low 36.0 - 48.0 % [facility] Hemoglobin (Bld) [Mass/Vol] 11.1 g/dL Low 12.0 - 16.0 g/dL [facility] IMMATURE GRANULOCYTES ABS AUTO 0.1 High [facility] Immature granulocytes/100 WBC (Bld) 0.9 % High 0.0 - 0.5 % [facility] Interpretation and review of laboratory results Abnormal [facility] LYMPHOCYTES ABSOLUTE AUTO 1.7 [facility] Lymphocytes/100 WBC (Bld) 14.7 % Low 20.5 - 60.0 % [facility] MCH (RBC) [Entitic mass] 29.3 pg 26.7 - 34.0 pg [facility] MCHC (RBC) [Mass/Vol] 32.8 g/dL 29.9 - 35.2 g/dL [facility] MCV (RBC) [Entitic vol] 89.2 fL 81.0 - 99.0 fL [facility] MONOCYTES ABSOLUTE AUTO 0.6 [facility] Monocytes/100 WBC (Bld) 4.7 % 1.7 - 12.0 % [facility] NEUTROPHILS ABSOLUTE AUTO 9.1 High [facility] Neutrophils/100 WBC (Bld) 77.3 % High 43.0 - 75.0 % [facility] Platelet mean volume (Bld) [Entitic vol] 9.1 fL Low 9.5 - 13.5 fL [facility] TBH EO # 0.3 [facility] TB PLT 256 [facility] RBC 3.79 Low [facility] WBC 11.7 High [facility] Urinalysis macro (dipstick) panel (U)on 03-29-2025 Bilirubin, UA Negative Negative - 4(70) +++ mg/dL [facility] Blood, UA Negative Negative - 50 Regino/mcL [facility] Clarity, UA Clear [facility] Color, UA Yellow [facility] Glucose, UA Negative Negative - 1999(110) ++++ mg/dL [facility] Interpretation and review of laboratory results Abnormal [facility] Ketones, UA Negative Negative - 160(16) ++++ mg/dL [facility] Leukocytes, UA Negative Negative - 500+++ Dara/mcL [facility] Nitrite, UA Negative Negative - Positive [facility] pH, UA 7.5 5 - 9 [facility] Protein, UA Trace Negative - 1999(20) ++++ mg/dL [facility] Spec Grav, UA 1.01 1 - 1.03 [facility] Urobilinogen, UA 0.2 0.2 - 12 mg/dL [facility] Urinalysis macro (dipstick) panel (U)on 02-22-2025 Bilirubin, UA Negative Negative - 4(70) +++ mg/dL [facility] Blood, UA Negative Negative - 50 Regino/mcL [facility] Clarity, UA Clear [facility] Color, UA Yellow [facility] Glucose, UA Negative Negative - 1999(110) ++++ mg/dL [facility] Interpretation and review of laboratory results Normal [facility] Ketones, UA Negative Negative - 160(16) ++++ mg/dL [facility] Leukocytes, UA Negative Negative - 500+++ Dara/mcL [facility] Nitrite, UA Negative Negative - Positive [facility] pH, UA 6 5 - 9 [facility] Protein, UA Negative Negative - 1999(20) ++++ mg/dL [facility] Spec Grav, UA 1.02 1 - 1.03 [facility] Urobilinogen, UA 0.2 0.2 - 12 mg/dL [facility] US venous duplex LE BIon US venous duplex LE BI [facility] [employer] [address] [place] [address] Ultrasound Report Signed Patient: Dawn Major MR#: [id number] : 2000 Acct:[id number] Age/Sex: 24 / F ADM Date: 01/30/25 Loc: ER Room: Type: [facility] ER Attending Dr: Ordering Provider: Vipin [...] Gonzales M.D. 02/02/2025 12:17 PM Dictation Location: [place] [address] Tech: Alice García Transcribed By: SHERINE 02/02/25 1217 Dictated By: Arvin Gonzales MD 02/02/25 1216 Signed By: 02/02/25 1217 Normal [facility] Alanine aminotransferase [En zymatic activity/volume] in Serum or PlasmaOrdered By: Vipin Stroud on 01-30-2025 ALT [Catalytic activity/Vol] Alanine aminotransferase [Enzymatic activity/volume] in Serum or Plasma Low 7-52 [facility] Albumin [Mass/volume] in Ser um or Plasma by Bromocresol green (BCG) dye binding methoOrdered By: Vipin Stroud on 01-30-2025 Albumin BCG dye [Mass/Vol] Albumin [Mass/volume] in Serum or Plasma by Bromocresol green (BCG) dye binding metho 3.5-5.7 [facility] Alkaline phosphatase [Enzyma tic activity/volume] in Serum or PlasmaOrdered By: Vipin Stroud on 01-30-2025 ALP [Catalytic activity/Vol] Alkaline phosphatase [Enzymatic activity/volume] in Serum or Plasma 34-104 [facility] Amphetamine Screen Ql (U)Ord ered By: YAKOV MCDONOUGH on 01-30-2025 Amphetamines Ql (U) Amphetamines screen Negativ e [facility] Appearance of UrineOrdered B y: YAKOV MCDONOUGH on 01-30-2025 Appearance (U) Urine appearance Clear [facility] Aspartate aminotransferase [ Enzymatic activity/volume] in Serum or PlasmaOrdered By: Vipin Stroud on 01-30-2025 AST [Catalytic activity/Vol] Aspartate aminotransferase [Enzymatic activity/volume] in Serum or Plasma Low 13-39 [facility] Barbiturates [Presence] in U rine by Screen methodOrdered By: YAKOV MCDONOUGH on 01-30-2025 Barbiturates Screen Ql (U) Barbiturates [Presence] in Urine by Screen method Negative [facility] Basic Metabolic Panelon 01-08 Anion gap [Moles/Vol] 9.8 mmol/L Normal 6.0-15.0 [facility] Comment on above: Performed By: #### H S TROP, PTT, HEPATIC, DDIMER, CBC, LIPASE, BMP, PT ####[facility] Calcium [Mass/Vol] 8.8 mg/dL Normal 8.6-10.3 [facility] Comment on above: Performed By: #### H S TROP, PTT, HEPATIC, DDIMER, CBC, LIPASE, BMP, PT ####[facility] Chloride [Moles/Vol] 105 mmol/L Normal 98-107 [facility] Comment on above: Performed By: #### H S TROP, PTT, HEPATIC, DDIMER, CBC, LIPASE, BMP, PT ####[place] [id number] [address] CO2 [Moles/Vol] 25.1 mmol/L Normal 21.0-31.0 [facility] Comment on above: Performed By: #### H S TROP, PTT, HEPATIC, DDIMER, CBC, LIPASE, BMP, PT ####[address] Creatinine [Mass/Vol] 0.47 mg/dL Low 0.60-1.20 [facility] Comment on above: Performed By: #### H S TROP, PTT, HEPATIC, DDIMER, CBC, LIPASE, BMP, PT ####[address] Creatinine Clr Calc Pharmacy 141.68 Normal [facility] Comment on above: Performed By: #### H S TROP, PTT, HEPATIC, DDIMER, CBC, LIPASE, BMP, PT ####[address] GFR/1.73 sq M.predicted MDRD (S/P/Bld) [Vol rate/Area] mL/min/{1.73_m2} Normal [facility] Comment on above: Performed By: #### H S TROP, PTT, HEPATIC, DDIMER, CBC, LIPASE, BMP, PT ####[address] Glucose [Mass/Vol] 83 mg/dL Normal 70-100 [facility] Comment on above: Result Comment: [place] Glucose Reference Range is dependent on time and content of last meal. Glucose of more than 200 mg/dL in a nonstressed, ambulatory subject supports the diagnosis of Diabetes Mellitus. ADA recommended reference range Performed By: #### H S TROP, PTT, HEPATIC, DDIMER, CBC, LIPASE, BMP, PT ####[address] Potassium [Moles/Vol] 3.9 mmol/L Normal 3.5-5.1 [facility] Comment on above: Performed By: #### H S TROP, PTT, HEPATIC, DDIMER, CBC, LIPASE, BMP, PT ####[facility] [id number] Sodium [Moles/Vol] 136 mmol/L Normal 136-145 [facility] Comment on above: Performed By: #### H S TROP, PTT, HEPATIC, DDIMER, CBC, LIPASE, BMP, PT ####[facility] [id number] [address] Urea nitrogen [Mass/Vol] 6 mg/dL Low 7-25 [facility] Comment on above: Performed By: #### H S TROP, PTT, HEPATIC, DDIMER, CBC, LIPASE, BMP, PT ####[facility] Basophils Auto (Bld) [#/Vol] Ordered By: Vipin Stroud on 01-30-2025 Basophils (Bld) [#/Vol] Automated basophil count 0.0-0.2 [facility] Basophils/100 WBC Auto (Bld) Ordered By: Vipin Stroud on 01-30-2025 Basophils/100 WBC (Bld) Automated basophil % . [facility] Benzodiazepines Screen Ql (U )Ordered By: YAKOV MCDONOUGH on 01-30-2025 Benzodiazepines Ql (U) Benzodiazepines [ Presence] in Urine by Screen method Negative [facility] Benzoylecgonine [Presence] i n Urine by Screen methodOrdered By: YAKOV MCDONOUGH on 01-30-2025 Benzoylecgonine Screen Ql (U) Benzoylecgonine [Presence] in Urine by Screen method Negative [facility] Bilirubin Test strip Ql (U)O rdered By: YAKOV MCDONOUGH on 01-30-2025 Bilirubin Ql (U) Bilirubin.total [Pre sence] in Urine by Test strip Negative [facility] Bilirubin.direct [Mass/volum e] in Serum or PlasmaOrdered By: Vipin Stroud on 01-30-2025 Bilirubin.direct [Mass/Vol] Bilirubin.direct [Mass/volume] in Serum or Plasma 0.03-0.18 [facility] Bilirubin.total [Mass/volume ] in Serum or PlasmaOrdered By: Vipin Stroud on 01-30-2025 Bilirubin [Mass/Vol] Bilirubin.total [Mass/volume] in Serum or Plasma Low 0.3-1.0 [facility] Calcium [Mass/volume] in Ser um or PlasmaOrdered By: Vipin Stroud on 01-30-2025 Calcium [Mass/Vol] Calcium [Mass/volume ] in Serum or Plasma 8.6-10.3 [facility] Carbon dioxide, total [Moles /volume] in Serum or PlasmaOrdered By: Vipin Stroud on 01-30-2025 CO2 [Moles/Vol] Carbon dioxide, tota l [Moles/volume] in Serum or Plasma 21.0-31.0 [facility] Chloride [Moles/volume] in S isabel or PlasmaOrdered By: Vipin Stroud on 01-30-2025 Chloride [Moles/Vol] Chloride [Moles/vol ume] in Serum or Plasma 98-107 [facility] Color Auto (U)Ordered By: SHAAN MCDONOUGH on 01-30-2025 Color (U) Color of Urine by Auto Yellow [facility] Complete Blood Count Auto Di ffon 01-30-2025 Basophils (Bld) [#/Vol] 0.0 10*3/uL Normal 0.0-0.2 [facility] Comment on above: Result Comment: PERF ORMED BY: [place] [address] PATHOLOGIST ASIC VERIFICATION ENGINEER MARCO GALAVIZ M.D. Performed By: #### H S TROP, PTT, HEPATIC, DDIMER, CBC, LIPASE, BMP, PT #### [facility] [address] [place] [address] Basophils/100 WBC (Bld) 0.4 % Normal . [facility] Comment on above: Performed By: #### H S TROP, PTT, HEPATIC, DDIMER, CBC, LIPASE, BMP, PT #### [facility] [address] Eosinophils (Bld) [#/Vol] 0.2 10*3/uL Normal 0.0-0.45 [facility] Comment on above: Performed By: #### H S TROP, PTT, HEPATIC, DDIMER, CBC, LIPASE, BMP, PT #### [address] Eosinophils/100 WBC (Bld) 2.1 % Normal . [facility] Comment on above: Performed By: #### H S TROP, PTT, HEPATIC, DDIMER, CBC, LIPASE, BMP, PT #### [address] Erythrocyte distribution width (RBC) [Ratio] 13.7 % Normal 11.9-15.3 [facility] Comment on above: Performed By: #### H S TROP, PTT, HEPATIC, DDIMER, CBC, LIPASE, BMP, PT #### [address] Hematocrit (Bld) [Volume fraction] 36.2 % Normal 34.0-46.4 [facility] Comment on above: Performed By: #### H S TROP, PTT, HEPATIC, DDIMER, CBC, LIPASE, BMP, PT #### [address] Hemoglobin (Bld) [Mass/Vol] 12.7 g/dL Normal 11.8-15.4 [facility] Comment on above: Performed By: #### H S TROP, PTT, HEPATIC, DDIMER, CBC, LIPASE, BMP, PT #### [address] Lymphocytes (Bld) [#/Vol] 1.2 10*3/uL Normal 1.00-4.8 [facility] Comment on above: Performed By: #### H S TROP, PTT, HEPATIC, DDIMER, CBC, LIPASE, BMP, PT #### [address] Lymphocytes/100 WBC (Bld) 12.8 % Normal . [facility] Comment on above: Performed By: #### H S TROP, PTT, HEPATIC, DDIMER, CBC, LIPASE, BMP, PT #### [address] MCH (RBC) [Entitic mass] 30.8 pg Normal 24.7-34.3 [facility] Comment on above: Performed By: #### H S TROP, PTT, HEPATIC, DDIMER, CBC, LIPASE, BMP, PT #### [address] MCV (RBC) [Entitic vol] 87.8 fL Normal 80-100 [facility] Comment on above: Performed By: #### H S TROP, PTT, HEPATIC, DDIMER, CBC, LIPASE, BMP, PT #### [address] Mean Corpuscular HGB Conc 35.1 g/dL High 32.0-35.0 [facility] Comment on above: Performed By: #### H S TROP, PTT, HEPATIC, DDIMER, CBC, LIPASE, BMP, PT #### [address] Monocytes (Bld) [#/Vol] 0.3 10*3/uL Normal 0.0-0.8 [facility] Comment on above: Performed By: #### H S TROP, PTT, HEPATIC, DDIMER, CBC, LIPASE, BMP, PT #### [address] Monocytes/100 WBC (Bld) 15.98 % Normal 0.00-20.00 [facility] Comment on above: Performed By: #### H S TROP, PTT, HEPATIC, DDIMER, CBC, LIPASE, BMP, PT #### [address] Monocytes/100 WBC (Bld) 3.5 % Normal . [facility] Comment on above: Performed By: #### H S TROP, PTT, HEPATIC, DDIMER, CBC, LIPASE, BMP, PT #### [address] Neutrophils (Bld) [#/Vol] 7.9 10*3/uL High 1.8-7.7 [facility] [facility] Comment on above: Performed By: #### H S TROP, PTT, HEPATIC, DDIMER, CBC, LIPASE, BMP, PT #### [address] [address] [place] Neutrophils/100 WBC (Bld) 81.2 % Normal . [facility] Comment on above: Performed By: #### H S TROP, PTT, HEPATIC, DDIMER, CBC, LIPASE, BMP, PT #### [address] NRBC% 0.0 /100{WBC} Normal 0-0.5 [facility] Comment on above: Performed By: #### H S TROP, PTT, HEPATIC, DDIMER, CBC, LIPASE, BMP, PT #### [address] Platelet mean volume (Bld) [Entitic vol] 7.4 fL Normal 6.3-10.7 [facility] Comment on above: Performed By: #### H S TROP, PTT, HEPATIC, DDIMER, CBC, LIPASE, BMP, PT #### [address] Platelets (Bld) [#/Vol] 253 10*3/uL Normal 150-450 [facility] Comment on above: Performed By: #### H S TROP, PTT, HEPATIC, DDIMER, CBC, LIPASE, BMP, PT #### [address] RBC (Bld) [#/Vol] 4.12 10*6/uL Normal 3.60-5.00 [facility] Comment on above: Performed By: #### H S TROP, PTT, HEPATIC, DDIMER, CBC, LIPASE, BMP, PT #### [address] WBC (Bld) [#/Vol] 9.7 10*3/uL Normal 3.8-11.6 [facility] Comment on above: Performed By: #### H S TROP, PTT, HEPATIC, DDIMER, CBC, LIPASE, BMP, PT #### [address] Creatinine [Mass/volume] in Serum or PlasmaOrdered By: Vipin Stroud on 01-30-2025 Creatinine [Mass/Vol] Creatinine [Mass/v olume] in Serum or Plasma Low 0.60-1.20 [facility] D-Dimer High Sensitivityon 0 01-30-2025 D-Dimer High Sensitivity 209 ng/mL Normal 0-243 [facility] Comment on above: Result [...] coagulation studies. Please contact the laboratory at [phone] for redraw instructions. PERFORMED BY: [place] [address] PATHOLOGIST ASIC VERIFICATION ENGINEER MARCO GALAVIZ M.D. Performed By: #### H S TROP, PTT, HEPATIC, DDIMER, CBC, LIPASE, BMP, PT ####[facility] [address] [place] [id number] [facility] ECG 12 lead ECGon 01-30-2025 ECG 12 lead ECG [facility] [place] [address] Electrocardiograph Report Signed Patient: Dawn Major MR#: [id number] : 2000 Acct:[id number] Age/Sex: 24 / F ADM Date: 01/30/25 Loc: ER Room: Type: [facility] ER Attending Dr: Ordering Provider: Vipin [...] sinus arrhythmia Confirmed by Vipin Stroud DO ([id number]) on 01/31/2025 6:56:09 AM Referred By: Electronically Signed By: Vipin Stroud DO Transcribed By: MUS Signed By Vipin Stroud DO 0656 Normal [facility] Eosinophils Auto (Bld) [#/Vo l]Ordered By: Vipin Stroud on 01-30-2025 Eosinophils (Bld) [#/Vol] Automated eosinophil count 0.0-0.45 [facility] Eosinophils/100 WBC Auto (Bl d)Ordered By: Vipin Stroud on 01-30-2025 Eosinophils/100 WBC (Bld) Automated eosinophil % . [facility] Erythrocyte distribution wid th Auto (RBC) [Ratio]Ordered By: Vipin Stroud on 01-30-2025 Erythrocyte distribution width (RBC) [Ratio] Erythrocyte distribution width [Ratio] by Automated count 11.9-15.3 [facility] Fibrin D-dimer [Presence] in Platelet poor plasma by Latex agglutinationOrdered By: Vipin Stroud on 01-30-2025 Fibrin D-dimer LA Ql (PPP) Fibrin D-dimer [Presence] in Platelet poor plasma by Latex agglutination 0-243 [facility] Comment on above: The reference range [...] coagulation studies. Please contact the laboratory at [phone] for redraw instructions. Globulin Calc (S) [Mass/Vol] Ordered By: Vipin Stroud on 01-30-2025 Globulin (S) [Mass/Vol] Serum globulin m easurement by calculation (mass/volume) [facility] Glucose [Mass/volume] in Ser um or PlasmaOrdered By: Vipin Stroud on 01-30-2025 Glucose [Mass/Vol] Glucose [Mass/volume ] in Serum or Plasma 70-100 [facility] Comment on above: ADA recommended refe [...] [Mass/volume] in Urine by Test strip Normal [facility] Hematocrit Auto (Bld) [Volum e fraction]Ordered By: Vipin Stroud on 01-30-2025 Hematocrit (Bld) [Volume fraction] Hematocrit [Volume Fraction] of Blood by Automated count 34.0-46.4 [facility] Hemoglobin Test strip Ql (U) Ordered By: YAKOV MCDONOUGH on 01-30-2025 Hemoglobin Ql (U) Hemoglobin [Presence ] in Urine by Test strip Negative [facility] Hemoglobin [Mass/volume] in BloodOrdered By: Vipin Stroud on 01-30-2025 Hemoglobin (Bld) [Mass/Vol] Hemoglobin [Mass/volume] in Blood 11.8-15.4 [facility] Hepatic Panelon 01-30-2025 Albumin [Mass/Vol] 3.9 g/dL Normal 3.5-5.7 [facility] Comment on above: Performed By: #### H S TROP, PTT, HEPATIC, DDIMER, CBC, LIPASE, BMP, PT #### [facility] [address] [place] [address] [place] Albumin/Globulin [Mass ratio] 1.3 {ratio} Normal [facility] Comment on above: Performed By: #### H S TROP, PTT, HEPATIC, DDIMER, CBC, LIPASE, BMP, PT #### [facility] [address] [place] [address] [place] ALP [Catalytic activity/Vol] 44 U/L Normal 34-104 [facility] Comment on above: Performed By: #### H S TROP, PTT, HEPATIC, DDIMER, CBC, LIPASE, BMP, PT #### [address] ALT [Catalytic activity/Vol] 6 U/L Low 7-52 [facility] Comment on above: Performed By: #### H S TROP, PTT, HEPATIC, DDIMER, CBC, LIPASE, BMP, PT #### [address] AST [Catalytic activity/Vol] 12 U/L Low 13-39 [facility] Comment on above: Performed By: #### H S TROP, PTT, HEPATIC, DDIMER, CBC, LIPASE, BMP, PT #### [address] Bilirubin [Mass/Vol] 0.2 mg/dL Low 0.3-1.0 [facility] Comment on above: Performed By: #### H S TROP, PTT, HEPATIC, DDIMER, CBC, LIPASE, BMP, PT #### [address] Bilirubin,Indirect 0.1 mg/dL Normal [facility] Comment on above: Performed By: #### H S TROP, PTT, HEPATIC, DDIMER, CBC, LIPASE, BMP, PT #### [address] Bilirubin.indirect [Mass/Vol] 0.10 mg/dL Normal 0.03-0.18 [facility] Comment on above: Performed By: #### H S TROP, PTT, HEPATIC, DDIMER, CBC, LIPASE, BMP, PT #### [place] [address] [place] Globulin (S) [Mass/Vol] 2.9 g/dL Normal T he [facility] Comment on above: Performed By: #### H S TROP, PTT, HEPATIC, DDIMER, CBC, LIPASE, BMP, PT #### [address] Protein [Mass/Vol] 6.8 g/dL Normal 6.4-8.9 [facility] Comment on above: Performed By: #### H S TROP, PTT, HEPATIC, DDIMER, CBC, LIPASE, BMP, PT #### [facility] [address] INR in Platelet poor plasma by Coagulation assayOrdered By: Vipin Stroud on 01-30-2025 INR Coag (PPP) [Relative time] INR in Platelet poor plasma by Coagulation assay [facility] Comment on above: INR Therapeutic Rang [...] i n Urine by Test strip Negative [facility] Leukocyte esterase [Presence ] in Urine by Test stripOrdered By: YAKOV MCDONOUGH on 01-30-2025 Leukocyte esterase Test strip Ql (U) Leukocyte esterase [Presence] in Urine by Test strip Negative [facility] Leukocytes [#/volume] correc michael for nucleated erythrocytes in Blood by Automated counOrdered By: Vipin Stroud on 01-30-2025 WBC corrected for nucl RBC Auto (Bld) [#/Vol] Leukocytes [#/volume] corrected for nucleated erythrocytes in Blood by Automated coun 3.8-11.6 [facility] Lipaseon 01-30-2025 Lipase [Catalytic activity/Vol] 18.0 U/L Normal 11.0-82.0 [facility] Comment on above: Result Comment: PERF ORMED BY: [facility] [address] [place] [address] PATHOLOGIST ASIC VERIFICATION ENGINEER MARCO GALAVIZ M.D. Performed By: #### H S TROP, PTT, HEPATIC, DDIMER, CBC, LIPASE, BMP, PT ####[facility] [id number] Lipase [Enzymatic activity/v olume] in Serum or PlasmaOrdered By: Vipin Stroud on 01-30-2025 Lipase [Catalytic activity/Vol] Lipase [Enzymatic activity/volume] in Serum or Plasma 11.0-82.0 [facility] Lymphocytes Auto (Bld) [#/Vo l]Ordered By: Vipin Stroud on 01-30-2025 Lymphocytes (Bld) [#/Vol] Lymphocytes [#/volume] in Blood by Automated count 1.00-4.8 [facility] Lymphocytes/100 WBC Auto (Bl d)Ordered By: Vipin Stroud on 01-30-2025 Lymphocytes/100 WBC (Bld) Lymphocytes/100 leukocytes in Blood by Automated count . [facility] MCH Auto (RBC) [Entitic mass ]Ordered By: Vipin Stroud on 01-30-2025 MCH (RBC) [Entitic mass] MCH [Entitic mass] by Automated count 24.7-34.3 [facility] MCHC Auto (RBC) [Mass/Vol]Or dered By: Vipin Stroud on 01-30-2025 MCHC (RBC) [Mass/Vol] MCHC [Mass/volume] by Automated count High 32.0-35.0 [facility] MCV Auto (RBC) [Entitic vol] Ordered By: Vipin Stroud on 01-30-2025 MCV (RBC) [Entitic vol] MCV [Entitic vol ume] by Automated count 80-100 [facility] Monocyte distribution width [Entitic volume] in Blood by AutomatedOrdered By: Vipin Stroud on 01-30-2025 Monocyte distribution width Auto (Bld) [Entitic vol] Monocyte distribution width [Entitic volume] in Blood by Automated 0.00-20.00 [facility] Monocytes Auto (Bld) [#/Vol] Ordered By: Vipin Stroud on 01-30-2025 Monocytes (Bld) [#/Vol] Automated blood monocyte count 0.0-0.8 [facility] Monocytes/100 WBC Auto (Bld) Ordered By: Vipin Stroud on 01-30-2025 Monocytes/100 WBC (Bld) Automated monocyte % . [facility] Neutrophils Auto (Bld) [#/Vo l]Ordered By: Vipin Stroud on 01-30-2025 Neutrophils (Bld) [#/Vol] Neutrophils [#/volume] in Blood by Automated count High 1.8-7.7 [facility] Neutrophils/100 WBC Auto (Bl d)Ordered By: Vipin Stroud on 01-30-2025 Neutrophils/100 WBC (Bld) Automated neutrophil % . [facility] Nitrite Test strip Ql (U)Ord ered By: YAKOV MCDONOUGH on 01-30-2025 Nitrite Ql (U) Nitrite [Presence] i n Urine by Test strip Negative [facility] No Panel InformationOrdered By: Vipin Stroud on 01-30-2025 Estimated GFR (CKD-EPI) > 60.0 mL/Min [facility] Creatinine Clearance (Chem 141.68 [facility] Nucleated erythrocytes [Pres ence] in Blood by Automated countOrdered By: Vipin Stroud on 01-30-2025 Nucleated RBC Auto Ql (Bld) Nucleated erythrocytes [Presence] in Blood by Automated count 0-0.5 [facility] OB Urine Drug Screen (NO THC )on 01-30-2025 Amphetamine Screen,Urine Negative Normal Negative [facility] Comment on above: Order Comment: Comme nt s/s of acute impairment Performed By: #### O BUDS, UA ####[facility] Barbiturate Screen,Urine Negative Normal Negative [facility] Comment on above: Order Comment: Comme nt s/s of acute impairment Performed By: #### O BUDS, UA ####[facility] [place] [address] [facility] Benzodiazepines Screen,Urine Negative Normal Negative [facility] Comment on above: Order Comment: Comme nt s/s of acute impairment Performed By: #### O BUDS, UA ####[facility] [address] [place] [address] [facility] Cocaine Screen,Urine Negative Normal Negative [facility] Comment on above: Order Comment: Comme nt s/s of acute impairment Performed By: #### O BUDS, UA ####[place] [address] [place] [id number] [facility] Opiate Screen,Urine Negative Normal Negative [facility] Comment on above: Order Comment: Comme nt s/s of acute impairment Performed By: #### O BUDS, UA ####[place] [address] [place] [id number] [facility] Phencyclidine Screen, Urine Negative Normal Negative [facility] Comment on above: Order Comment: Comme nt s/s of acute impairment Result Comment: Thes e are unconfirmed results and should not be used for legal purposes. Drug Cut-Off Concentration: AMPH 1000 ng/mL VENKATA 200 ng/mL BREANNA 200 ng/mL COCM 300 ng/mL OP 300 ng/mL PCP 25 ng/mL PERFORMED BY: [facility] [address] [id number] PATHOLOGIST ASIC VERIFICATION ENGINEER MARCO GALAVIZ M.D. Performed By: #### O NOEMY UA ####[place] [id number] [facility] Opiates [Presence] in Urine by Screen methodOrdered By: YAKOV MCDONOUGH on 01-30-2025 Opiates Screen Ql (U) Opiates [Presence] in Urine by Screen method Negative [facility] Partial Thromboplastin Timeo n 01-30-2025 aPTT Coag (Bld) [Time] 27.2 s Normal 25.1-36.5 Th e [facility] Comment on above: Result Comment: A he matocrit value greater than 55% may lead to inaccurate results in coagulation testing. Patients having hematocrit values >55% require a special collection tube for coagulation studies. Please contact the laboratory at [phone] for redraw instructions. Performed By: #### H S TROP, PTT, HEPATIC, DDIMER, CBC, LIPASE, BMP, PT ####[place] [id number] [facility] Phencyclidine Screen Ql (U)O rdered By: YAKOV MCDONOUGH on 01-30-2025 Phencyclidine Ql (U) Phencyclidine [Pres ence] in Urine by Screen method Negative [facility] Comment on above: These are unconfirme [...] volume] in Blood by Automated count 6.3-10.7 [facility] Platelets Auto (Bld) [#/Vol] Ordered By: Vipin Stroud on 01-30-2025 Platelets (Bld) [#/Vol] Platelets [#/vol ume] in Blood by Automated count 150-450 [facility] Potassium [Moles/volume] in Serum or PlasmaOrdered By: Vipin Stroud on 01-30-2025 Potassium [Moles/Vol] Potassium [Moles/v olume] in Serum or Plasma 3.5-5.1 [facility] Protein Test strip (U) [Mass /Vol]Ordered By: YAKOV MCDONOUGH on 01-30-2025 Protein (U) [Mass/Vol] Protein [Mass/vol ume] in Urine by Test strip Negative [facility] Protein [Mass/volume] in Ser um or PlasmaOrdered By: Vipin Stroud on 01-30-2025 Protein [Mass/Vol] Protein [Mass/volume ] in Serum or Plasma 6.4-8.9 [facility] Prothrombin Time INRon 01-30 INR Coag (PPP) [Relative time] 0.9 {INR} Normal [facility] Comment on above: Result [...] PTT, HEPATIC, DDIMER, CBC, LIPASE, BMP, PT ####[facility] [address] [place] [id number] [facility] PT Coag (PPP) [Time] 10.6 s Normal 9.0-12.9 [facility] Comment on above: Result Comment: A he matocrit value greater than 55% may lead to inaccurate results in coagulation testing. Patients having hematocrit values >55% require a special collection tube for coagulation studies. Please contact the laboratory at [phone] for redraw instructions. Performed By: #### H S TROP, PTT, HEPATIC, DDIMER, CBC, LIPASE, BMP, PT ####[facility] [address] [place] [id number] [facility] Prothrombin time (PT)Ordered By: Vipin Stroud on 01-30-2025 PT Coag (PPP) [Time] Prothrombin time (PT) 9.0- 12.9 [facility] Comment on above: A hematocrit value g reater than 55% may lead to inaccurate results in coagulation testing. Patients having hematocrit values >55% require a special collection tube for coagulation studies. Please contact the laboratory at [phone] for redraw instructions. RBC Auto (Bld) [#/Vol]Ordere d By: Vipin Stroud on 01-30-2025 RBC (Bld) [#/Vol] Erythrocytes [#/volu me] in Blood by Automated count 3.60-5.00 [facility] Serum or plasma albumin/glob ulin mass ratioOrdered By: Vipin Stroud on 01-30-2025 Albumin/Globulin [Mass ratio] Serum or plasma albumin/globulin mass ratio [facility] Serum or plasma anion gap de terminationOrdered By: Vipin Stroud on 01-30-2025 Anion gap [Moles/Vol] Serum or plasma an ion gap determination 6.0-15.0 [facility] Serum or plasma non-glucuron idated bilirubin measurement (mass/volume)Ordered By: Vipin Stroud on 01-30-2025 Bilirubin.indirect [Mass/Vol] Serum or plasma non-glucuronidated bilirubin measurement (mass/volume) [facility] Sodium [Moles/volume] in Ser um or PlasmaOrdered By: Vipin Stroud on 01-30-2025 Sodium [Moles/Vol] Sodium [Moles/volume ] in Serum or Plasma 136-145 [facility] Specific gravity Test strip (U) [Rel density]Ordered By: YAKOV MCDONOUGH on 01-30-2025 Specific gravity (U) [Rel density] Specific gravity of Urine by Test strip 1.001-1.03 0 [facility] Troponin I High Sensitivityo n 01-30-2025 Troponin I High Sensitivity 3 Normal 0-15 [facility] Comment on above: Result Comment: The Troponin units of report have been changed to meet the Chest Pain Accreditation requirement, element EC5.M1l2. Troponin units are changed from pg/ml to ng/L. Also, the decimal is removed and results are in whole numbers. PERFORMED BY: [facility] [address] [place] [address] PATHOLOGIST ASIC VERIFICATION ENGINEER MARCO GALAVIZ M.D. Performed By: #### H S TROP, PTT, HEPATIC, DDIMER, CBC, LIPASE, BMP, PT ####[place] [address] Troponin I.cardiac [Mass/vol ume] in Serum or Plasma by Detection limit <= 0.01 ng/Ordered By: Vipin Stroud on 01-30-2025 Troponin I.cardiac DL <= 0.01 ng/mL [Mass/Vol] Troponin I.cardiac [Mass/volume] in Serum or Plasma by Detection limit <= 0.01 ng/ 0-15 [facility] Comment on above: The Troponin units [...] [Mass/volume] in Serum or Plasma Low 7-25 [facility] Urinalysison 01-30-2025 Appearance (U) Clear Normal Clear [facility] Comment on above: Order Comment: Comme nt c/o urinary symptoms or increased blood pressure Name Collection Type:: Voided Performed By: #### O BUDS, UA ####[address] Bilirubin,Urine Negative Normal Negative [facility] Comment on above: Order Comment: Comme nt c/o urinary symptoms or increased blood pressure Name Collection Type:: Voided Performed By: #### O BUDS, UA ####[place] [id number] [facility] Color (U) Light-Yellow Normal Yellow [facility] Comment on above: Order Comment: Comme nt c/o urinary symptoms or increased blood pressure Name Collection Type:: Voided Performed By: #### O BUDS, UA ####[place] [id number] [facility] Glucose Ql (U) Normal Normal Normal [facility] Comment on above: Order Comment: Comme nt c/o urinary symptoms or increased blood pressure Name Collection Type:: Voided Performed By: #### O BUDS, UA ####[place] [id number] [facility] Ketones Ql (U) Negative Normal Negative [facility] Comment on above: Order Comment: Comme nt c/o urinary symptoms or increased blood pressure Name Collection Type:: Voided Performed By: #### O BUDS, UA ####[address] Leukocyte esterase Test strip Ql (U) Negative Normal Negative [facility] Comment on above: Order Comment: Comme nt c/o urinary symptoms or increased blood pressure Name Collection Type:: Voided Performed By: #### O BUDS, UA ####[place] [id number] [facility] Nitrite,Urine Negative Normal Negative [facility] Comment on above: Order Comment: Comme nt c/o urinary symptoms or increased blood pressure Name Collection Type:: Voided Performed By: #### O BUDS, UA ####[place] [id number] [facility] Occult Blood,Urine Negative Normal Negative [facility] Comment on above: Order Comment: Comme nt c/o urinary symptoms or increased blood pressure Name Collection Type:: Voided Result Comment: PERF ORMED BY: [facility] [address] [place] [id number] PATHOLOGIST ASIC VERIFICATION ENGINEER MARCO GALAVIZ M.D. Performed By: #### O BUDS, UA ####[address] pH (U) 7.0 [pH] Normal 5.0-9.0 [facility] Comment on above: Order Comment: Comme nt c/o urinary symptoms or increased blood pressure Name Collection Type:: Voided Performed By: #### O BUDS, UA ####[address] Protein,Urine Negative Normal Negative [facility] Comment on above: Order Comment: Comme nt c/o urinary symptoms or increased blood pressure Name Collection Type:: Voided Performed By: #### O BUDS, UA ####[address] Specificy [place],Urine 1.014 Normal 1.00 1-1.03 0 [facility] Comment on above: Order Comment: Comme nt c/o urinary symptoms or increased blood pressure Name Collection Type:: Voided Performed By: #### O BUDS, UA ####[address] Urobilinogen,Urine Normal Normal Normal [facility] Comment on above: Order Comment: Comme nt c/o urinary symptoms or increased blood pressure Name Collection Type:: Voided Performed By: #### O BUDS, UA ####[address] Urobilinogen Test strip (U) [Mass/Vol]Ordered By: YAKOV MCDONOUGH on 01-30-2025 Urobilinogen (U) [Mass/Vol] Urobilinogen [Mass/volume] in Urine by Test strip Normal [facility] WBC Auto (Bld) [#/Vol]Ordere d By: Vipin Stroud on 01-30-2025 WBC (Bld) [#/Vol] Leukocytes [#/volume ] in Blood by Automated count 3.8-11.6 [facility] X-ray reportOrdered By: J Luis Newton on 05-24-2025 Study report [facility] Main [address] [address] XRay Report Signed Patient: Dawn Major MR#: [id number] : 2000 Acct:[id number] Age/Sex: 24 / F ADM Date: Loc: [...] Newton M.D. 01/30/2025 8:55 AM Dictation Location: [facility]- Transcribed By: [facility] 01/30/25 0855 Dictated By: J Luis Newton II, MD 01/30/25 0853 Signed By: 01/30/25 0855 [facility] Work Phone: XR chest 1V portableon 01-30 XR chest 1V portable [facility] Main [address] [address] XRay Report Signed Patient: Dawn Major MR#: [id number] : 2000 Acct:[id number] Age/Sex: 24 / F ADM Date: 01/30/25 [...] Newton M.D. 01/30/2025 8:55 AM Dictation Location: [place] [address] Transcribed By: SHERINE 01/30/2555 Dictated By: J Luis Newton II, MD 01/30/2553 Signed By: 01/30/25854 Normal [facility] aPTT in Platelet poor plasma by Coagulation assayOrdered By: Vipin Stroud on 01-30-2025 aPTT Coag (PPP) [Time] Activated partial thromboplastin time (aPTT) in platelet poor plasma by coagulation a 25.1-36.5 [facility] Comment on above: A hematocrit value g reater than 55% may lead to inaccurate results in coagulation testing. Patients having hematocrit values >55% require a special collection tube for coagulation studies. Please contact the laboratory at [phone] for redraw instructions. pH Test strip (U)Ordered By: YAKOV MCDONOUGH on 01-30-2025 pH (U) pH of Urine by Test strip 5.0-9.0 [facility] US OB ANATOMYon 01-27-2025 [place] [id number] Ultrasound Report Signed Patient: DAWN MAJOR MR#: [id number] : 2000 Acct:[id number] Age/Sex: 24 / F ADM Date: 01/27/25 Loc: US Attending Dr: Demarco Orr D.O. Ordering Physician: Demarco Orr D.O. Date of Service: 01/27/25 Procedure(s): US OB anatomy Accession Number(s): [id number] cc: Demarco Orr D.O.; Geena ARAYA [address] [address] Patient Name: DAWN MAJOR MRN: [facility]:[id number] date: 2000 Sex: F Assigned Patient Location: Current Patient Location: Accession/Order Number: [id number] Exam Date: 01/27/2025 12:50 Report Date: 01/27/2025 [...] all 4 extremities were surveyed by the mediator and no abnormalities were identified. The facial [...] was evaluated with a transvaginal probe. The mediator noted contractions during evaluation. There is no evidence of previa. The cervix is closed and measures approximately 3.7 cm in length. IMPRESSION: CLOSED CERVIX, WITHOUT ABNORMALITY. Impression dictated by: Catherine Cortes M.D. 01/27/2025 12:56 PM Dictation Location: [place] [address] Electronically authenticated by: [id number] Y Date: 01/27/2025 12:56 Dictated By: Catherine Cortes M.D. Signed By: 01/27/25 1258 DD/ 1256 TD/TT: Census Clerk: [facility] Radiology, Radiologi MD clarisa - 01/27/2025 [facility] [address] [place] [address] Ultrasound Report Signed Patient: DAWN MAJOR MR#: [id number] : 2000 Acct:[id number] Age/Sex: 24 / F ADM Date: 01/27/25 Loc: US Attending Dr: Demarco Orr D.O. Ordering Physician: Demarco Orr D.O. Date of Service: 01/27/25 Procedure(s): US OB anatomy Accession Number(s): [id number] cc: Demarco Orr D.O.; Geena ARAYA [place] [id number] Patient Name: DAWN MAJOR MRN: [id number] date: 2000 Sex: F Assigned Patient Location: US Current Patient Location: US Accession/Order Number: [id number] Exam Date: 01/27/2025 12:50 Report Date: 01/27/2025 [...] all 4 extremities were surveyed by the mediator and no abnormalities were identified. The facial [...] was evaluated with a transvaginal probe. The mediator noted contractions during evaluation. There is no evidence of previa. The cervix is closed and measures approximately 3.7 cm in length. IMPRESSION: CLOSED CERVIX, WITHOUT ABNORMALITY. Impression dictated by: Catherine Cortes M.D. 01/27/2025 12:56 PM Dictation Location: [place] [address] Electronically authenticated by: [id number] Y Date: 01/27/2025 12:56 Dictated By: Catherine Cortes M.D. Signed By: 01/27/25 1258 DD/ 1256 TD/TT: Census Clerk: [facility] Radiology Study observation (narrative) [facility] US OB ANATOMYOrdered By: Herbert iologwolf Radiology on 01-27-2025 [facility] Work Phone: RECURRENT VAGINITIS (HTRX)on 01-26-2025 ATOPOBIUM VAGINAE 29.079 Abnormal [facility] ATOPOBIUM VAGINAE Detected Abnormal [facility] BVAB 2,3 (BACTERIAL VAGINOSIS ASSOCIATED BACTERIA 2, 3); MOBILUNCUS SPP 0 [facility] BVAB 2,3 (BACTERIAL VAGINOSIS ASSOCIATED BACTERIA 2, 3); MOBILUNCUS SPP Not detected [facility] MARILYNN ALBICANS, PARAPSILOSIS, TROPICALIS 0 [facility] MARILYNN ALBICANS, PARAPSILOSIS, TROPICALIS Not detected [facility] MARILYNN GLABRATA 0 [facility] MARILYNN GLABRATA Not detected [facility] MARILYNN KRUSEI 0 [facility] MARILYNN KRUSEI Not detected [facility] CHLAMYDIA TRACHOMATIS 0 [facility] CHLAMYDIA TRACHOMATIS Not detected N [facility] ERMB, C; MEFA 26.396 Abnormal [facility] ERMB, C; MEFA Detected Abnormal [facility] GARDNERELLA VAGINALIS 32.623 Abnormal [facility] GARDNERELLA VAGINALIS Detected Abnormal [facility] Interpretation and review of laboratory results Abnormal [facility] MEGASPHAERA (TYPES 1, 2) 0 [facility] MEGASPHAERA (TYPES 1, 2) Not detected [facility] Healthcare MYCOPLASMA GENITALIUM 0 NOM S Healthcare MYCOPLASMA GENITALIUM Not detected N [facility] Healthcare NEISSERIA GONORRHOEAE 0 [facility] NEISSERIA GONORRHOEAE Not detected N [facility] Healthcare TRICHOMONAS VAGINALIS 0 [facility] S [facility] TRICHOMONAS VAGINALIS Not detected N [facility] Urinalysis macro (dipstick) panel (U)on 01-25-2025 Bilirubin, UA Negative Negative - 4(70) +++ mg/dL [facility] Blood, UA Negative Negative - 50 Regino/mcL [facility] Clarity, UA Clear [facility] Color, UA Yellow [facility] Glucose, UA Negative Negative - 1999(110) ++++ mg/dL [facility] Interpretation and review of laboratory results Normal [facility] Ketones, UA Negative Negative - 160(16) ++++ mg/dL [facility] Leukocytes, UA Negative Negative - 500+++ Dara/mcL [facility] Nitrite, UA Negative Negative - Positive [facility] pH, UA 7 5 - 9 [facility] Protein, UA Negative Negative - 1999(20) ++++ mg/dL [facility] Spec Grav, UA 1.02 1 - 1.03 [facility] Urobilinogen, UA 0.2 0.2 - 12 mg/dL [facility] BOX TESTon 12-03-2024 BOX TEST SENT OUT [facility] BOX1 [facility] BOX2 12/03/2024 [facility] BOX [facility] HCG ( test) Ql (U)o n 11-05-2024 Interpretation and review of laboratory results Abnormal [facility] Preg Test, Ur Positive Negative [facility] US OB TRANSVAGINALon 025 US OB [...] II, MD, PHD at 07-Nov-2024 07:21:38 AM [facility] Normal Not Available Comment on above: Order Comment: US OB TRANSVAGINAL No LMP recorded. Urinalysis macro (dipstick) panel (U)on 11-05-2024 Bilirubin, UA Negative Negative - 4(70) +++ mg/dL [facility] Blood, UA Negative Negative - 50 Regino/mcL [facility] Clarity, UA Clear [facility] Color, UA Yellow [facility] Glucose, UA Negative Negative - 2000(110) ++++ mg/dL [facility] Interpretation and review of laboratory results Normal [facility] Ketones, UA Negative Negative - 160(16) ++++ mg/dL [facility] Leukocytes, UA Negative Negative - 500+++ Dara/mcL [facility] Nitrite, UA Negative Negative - Positive [facility] pH, UA 7 5 - 9 [facility] Protein, UA Negative Negative - 2000(20) ++++ mg/dL [facility] Spec Grav, UA 1.02 1 - 1.03 [facility] Urobilinogen, UA 0.2 0.2 - 12 mg/dL [facility] X-ray reportOrdered By: Gerardo Hutton on 09-21-2024 Study report [facility] [place] [address] XRay Report Signed Patient: Dawn Major MR#: [id number] : 2000 Acct:[id number] Age/Sex: 24 / F ADM Date: 5 Loc: ER Room: Type: [facility] ER Attending Dr: Copies to: Derek [...] Micky Hutton MD 09/21/242114 Signed By: 09/21/242115 [facility] Work Phone: XR shoulder RT min 2V*on XR shoulder RT min 2V* [facility] [place] [address] XRay Report Signed Patient: Dawn Major MR#: [id number] : 2000 Acct:[id number] Age/Sex: 24 / F ADM Date: 09/21/24 Loc: ER Room: Type: [facility] ER Attending Dr: Copies to: Derek [...] RADIO-PC-22 Transcribed By: SHERINE 09/21/242115 Dictated By: Micyk Hutton MD 09/21/242114 Signed By: 09/21/242115 Normal [facility] Laboratory - Chemistry and C hemistry - challengeon 08-26-2024 HCG.intact+Beta subunit Qn <1 mIU/mL [facility] Comment on above: Female (Non- ) 0 - 5 (Postmenopausal) 0 - 8 Female () Weeks of Gestation 3 6 - 71 4 10 - 750 5 543 - 3787 6 871 - 01142 7 3501 -601417 8 33781 -170274 9 21141 -085787 10 72977 -137082 12 09893 -786520 14 63155 - 70725 15 59361 - 09338 16 6721 - 30717 17 7999 - 82493 18 9634 - 15518 Gavin ECLIA methodology No Panel Informationon 08-26 Performed at: 01 - L [address] [id number] Lands Resource Manager: Mendel Rubin PhD, Phone: [phone] [facility] HCG ( test) Ql (U)o n 08-25-2024 Interpretation and review of laboratory results Normal [facility] Preg Test, Ur Negative Negative [facility] Alanine aminotransferase [En zymatic activity/volume] in Serum or PlasmaOrdered By: Paramjit Yanes on 06-29-2024 ALT [Catalytic activity/Vol] 6 U/L Low [facility] Comment on above: Performed By: #### E CAPO, CBC, CMP ####[facility] [id number] ALT [Catalytic activity/Vol] Alanine aminotransferase [Enzymatic activity/volume] in Serum or Plasma Low [facility] Albumin [Mass/volume] in Ser um or Plasma by Bromocresol green (BCG) dye binding methoOrdered By: Paramjit Yanes on 06-29-2024 Albumin BCG dye [Mass/Vol] 5.1 g/dL 3.5-5.7 [facility] Albumin BCG dye [Mass/Vol] Albumin [Mass/volume] in Serum or Plasma by Bromocresol green (BCG) dye binding metho 3.5-5.7 [facility] Alkaline phosphatase [Enzyma tic activity/volume] in Serum or PlasmaOrdered By: Paramjit Yanes on 06-29-2024 ALP [Catalytic activity/Vol] 43 U/L Normal 34-104 [facility] Comment on above: Performed By: #### E CAPO, CBC, CMP ####[place] [address] [place] [id number] [facility] ALP [Catalytic activity/Vol] Alkaline phosphatase [Enzymatic activity/volume] in Serum or Plasma 34-104 [facility] Amphetamine Screen Ql (U)Ord ered By: Paramjit Yanes on 06-29-2024 Amphetamines Ql (U) Amphetamines screen Negativ e [facility] Amphetamines Ql (U) Negative Negative [facility] Appearance of UrineOrdered B y: Paramjit Farzana on 06-29-2024 Appearance (U) Urine appearance Clear [facility] Aspartate aminotransferase [ Enzymatic activity/volume] in Serum or PlasmaOrdered By: Paramjit Yanes on 06-29-2024 AST [Catalytic activity/Vol] 15 U/L Normal 13-39 [facility] Comment on above: Performed By: #### E CAPO, CBC, CMP ####[place] [address] [place] [id number] [facility] AST [Catalytic activity/Vol] Aspartate aminotransferase [Enzymatic activity/volume] in Serum or Plasma 13-39 [facility] Automated basophil %Ordered By: Paramjit Yanes on 06-29-2024 Basophils/100 WBC (Bld) 0.6 % Normal . [facility] Comment on above: Performed By: #### E CAPO, CBC, CMP ####[place] [address] [place] [id number] [facility] Automated basophil countOrde red By: Paramjit Yanes on 06-29-2024 Basophils (Bld) [#/Vol] 0.0 10*3/uL Normal 0.0-0.2 [facility] Comment on above: Result Comment: PERF ORMED BY: [facility] [address] [place] [address] PATHOLOGIST ASIC VERIFICATION ENGINEER KIERSTEN BYNUM M.D. Performed By: #### E CAPO, CBC, CMP ####[place] [address] [place] [id number] [facility] Automated blood monocyte cou ntOrdered By: Paramjit Yanes on 06-29-2024 Monocytes (Bld) [#/Vol] 0.3 10*3/uL Normal 0.0-0.8 [facility] Comment on above: Performed By: #### E CAPO, CBC, CMP ####[address] Automated eosinophil %Ordere d By: Paramjit Yanes on 06-29-2024 Eosinophils/100 WBC (Bld) 4.2 % Normal . [facility] Comment on above: Performed By: #### E CAPO, CBC, CMP ####[address] Automated eosinophil countOr dered By: Paramjit Yanes on 06-29-2024 Eosinophils (Bld) [#/Vol] 0.3 10*3/uL Normal 0.0-0.45 [facility] Comment on above: Performed By: #### E CAPO, CBC, CMP ####[address] Automated monocyte %Ordered By: Paramjit Yanes on 06-29-2024 Monocytes/100 WBC (Bld) 4.8 % Normal . [facility] Comment on above: Performed By: #### E CAPO, CBC, CMP ####[address] Automated neutrophil %Ordere d By: Paramjit Yanes on 06-29-2024 Neutrophils/100 WBC (Bld) 68.1 % Normal . [facility] Comment on above: Performed By: #### E CAPO, CBC, CMP ####[address] Bacteria [Presence] in Urine by AutomatedOrdered By: Paramjit Yanes on 06-29-2024 Bacteria Auto Ql (U) Rare [HPF] None Seen [facility] Bacteria Auto Ql (U) Bacteria [Presence] in Urine by Automated None Seen [facility] Barbiturates [Presence] in U rine by Screen methodOrdered By: Paramjit Yanes on 06-29-2024 Barbiturates Screen Ql (U) Negative Negative [facility] Barbiturates Screen Ql (U) Barbiturates [Presence] in Urine by Screen method Negative [facility] Basophils Auto (Bld) [#/Vol] Ordered By: Paramjit Yanes on 06-29-2024 Basophils (Bld) [#/Vol] Automated basophil count 0.0-0.2 [facility] Basophils/100 WBC Auto (Bld) Ordered By: Paramjit Yanes on 06-29-2024 Basophils/100 WBC (Bld) Automated basophil % . [facility] Benzodiazepines Screen Ql (U )Ordered By: Paramjit Yanes on 06-29-2024 Benzodiazepines Ql (U) Negative Negative [facility] Benzodiazepines Ql (U) Benzodiazepines [ Presence] in Urine by Screen method Negative [facility] Benzoylecgonine [Presence] i n Urine by Screen methodOrdered By: Paramjit Yanes on 06-29-2024 Benzoylecgonine Screen Ql (U) Negative Negative [facility] Benzoylecgonine Screen Ql (U) Benzoylecgonine [Presence] in Urine by Screen method Negative [facility] Bilirubin Test strip Ql (U)O rdered By: Paramjit Yanes on 06-29-2024 Bilirubin Ql (U) Negative Negative [facility] Bilirubin Ql (U) Bilirubin.total [Pre sence] in Urine by Test strip Negative [facility] Bilirubin.total [Mass/volume ] in Serum or PlasmaOrdered By: Paramjit Yanes on 06-29-2024 Bilirubin [Mass/Vol] 0.8 mg/dL Normal 0.3-1.0 [facility] Comment on above: Performed By: #### E CAPO, CBC, CMP ####[facility] [id number] [place] [address] [facility] Bilirubin [Mass/Vol] Bilirubin.total [Mass/volume] in Serum or Plasma 0.3-1.0 [facility] Calcium [Mass/volume] in Ser um or PlasmaOrdered By: Paramjit Yanes on 06-29-2024 Calcium [Mass/Vol] 10.2 mg/dL Normal 8.6-10.3 [facility] Comment on above: Performed By: #### E CAPO, CBC, CMP ####[facility] [id number] [place] [address] [facility] Calcium [Mass/Vol] Calcium [Mass/volume ] in Serum or Plasma 8.6-10.3 [facility] Cannabinoids [Presence] in U rine by Screen methodOrdered By: Paramjit Yanes on 06-29-2024 Cannabinoids Screen Ql (U) Positive High Negative [facility] Comment on above: These are unconfirme d results and should not be used for legal purposes. Drug Cut-Off Concentration: AMPH 1000 ng/mL VENKATA 200 ng/mL BREANNA 200 ng/mL COCM 300 ng/mL OP 300 ng/mL PCP 25 ng/mL THC 20 ng/mL Cannabinoids Screen Ql (U) Cannabinoids [Presence] in Urine by Screen method High Negative [facility] Comment on above: These are unconfirme d results and should not be used for legal purposes. Drug Cut-Off Concentration: AMPH 1000 ng/mL VENKATA 200 ng/mL BREANNA 200 ng/mL COCM 300 ng/mL OP 300 ng/mL PCP 25 ng/mL THC 20 ng/mL Carbon dioxide, total [Moles /volume] in Serum or PlasmaOrdered By: Paramjit Yanes on 06-29-2024 CO2 [Moles/Vol] 28.6 mmol/L Normal 21.0-31.0 [facility] Comment on above: Performed By: #### E CAPO CBC, CMP ####[facility] [id number] [place] [address] [place] CO2 [Moles/Vol] Carbon dioxide, tota l [Moles/volume] in Serum or Plasma 21.0-31.0 [facility] Chloride [Moles/volume] in S isabel or PlasmaOrdered By: Paramjit Yanes on 06-29-2024 Chloride [Moles/Vol] 105 mmol/L Normal 98-107 [facility] Comment on above: Performed By: #### E CAPO, CBC, CMP ####[facility] [id number] [place] [address] [place] Chloride [Moles/Vol] Chloride [Moles/vol ume] in Serum or Plasma 98-107 [facility] Color Auto (U)Ordered By: Kevin Yanes on 06-29-2024 Color (U) Color of Urine by [facility] Color of Urine by AutoOrdere d By: Paramjit Yanes on 06-29-2024 Color (U) Yellow Normal Yellow [facility] Comment on above: Order Comment: Name Collection Type:: Clean-Voided Midstream Performed By: #### U HCG, URDS, ADDONUAPLUS ####[address] Complete Blood Count Auto Di ffon 06-29-2024 Mean Corpuscular HGB Conc 34.6 g/dL Normal 32.0-35.0 [facility] Comment on above: Performed By: #### E CAPO, CBC, CMP ####[address] Monocytes/100 WBC (Bld) 17.44 % Normal 0.00-20.00 [facility] Comment on above: Performed By: #### E CAPO, CBC, CMP ####[address] NRBC% 0.0 /100{WBC} Normal 0-0.5 [facility] Comment on above: Performed By: #### E CAPO, CBC, CMP ####[place] [id number] [facility] Comprehensive Metabolic Pane haseeb 06-29-2024 Albumin [Mass/Vol] 5.1 g/dL Normal 3.5-5.7 [facility] Comment on above: Performed By: #### E CAPO, CBC, CMP ####[address] Creatinine Clr Calc Pharmacy 91.90 Normal [facility] Comment on above: Result Comment: PERF ORMED BY: [facility] [address] [place] [address] PATHOLOGIST ASIC VERIFICATION ENGINEER KIERSTEN BYNUM M.D. Performed By: #### E CAPO, CBC, CMP ####[address] GFR/1.73 sq M.predicted MDRD (S/P/Bld) [Vol rate/Area] mL/min/{1.73_m2} Normal [facility] Comment on above: Performed By: #### E CAPO, CBC, CMP ####[place] [address] [place] [id number] [facility] Creatinine [Mass/volume] in Serum or PlasmaOrdered By: Paramjit Yanes on 06-29-2024 Creatinine [Mass/Vol] 0.62 mg/dL Normal 0.60-1.20 [facility] Comment on above: Performed By: #### E CAPO, CBC, CMP ####[place] [address] Creatinine [Mass/Vol] Creatinine [Mass/v olume] in Serum or Plasma 0.60-1.20 [facility] Dipstick and Microscopicon 1 Bacteria,Urine Rare Normal None Seen [facility] Comment on above: Order Comment: Name Collection Type:: Clean-Voided Midstream Performed By: #### U HCG, URDS, ADDONUAPLUS ####[address] [address] [facility] Bilirubin,Urine Negative Normal Negative [facility] Comment on above: Order Comment: Name Collection Type:: Clean-Voided Midstream Performed By: #### U HCG, URDS, ADDONUAPLUS ####[address] [address] [facility] Glucose Ql (U) Normal Normal Normal [facility] Comment on above: Order Comment: Name Collection Type:: Clean-Voided Midstream Performed By: #### U HCG, URDS, ADDONUAPLUS ####[address] [address] [facility] Hyaline Casts,Urine None Normal 0-8 [facility] Comment on above: Order Comment: Name Collection Type:: Clean-Voided Midstream Performed By: #### U HCG, URDS, ADDONUAPLUS ####[address] [address] [facility] Mucus,Urine 4+ Critically abnormal [facility] Comment on above: Order Comment: Name Collection Type:: Clean-Voided Midstream Performed By: #### U HCG, URDS, ADDONUAPLUS ####[address] Nitrite,Urine Negative Normal Negative [facility] Comment on above: Order Comment: Name Collection Type:: Clean-Voided Midstream Performed By: #### U HCG, URDS, ADDONUAPLUS ####[address] Occult Blood,Urine Negative Normal Negative [facility] Comment on above: Order Comment: Name Collection Type:: Clean-Voided Midstream Performed By: #### U HCG, URDS, ADDONUAPLUS ####[address] RBC,Urine 1-2 Normal 0-4 [facility] Comment on above: Order Comment: Name Collection Type:: Clean-Voided Midstream Performed By: #### U HCG, URDS, ADDONUAPLUS ####[address] Specificy [place],Urine 1.026 Normal 1.00 1-1.03 0 [facility] Comment on above: Order Comment: Name Collection Type:: Clean-Voided Midstream Performed By: #### U HCG, URDS, ADDONUAPLUS ####[place] [id number] [facility] Squamous Epithelial Cell,Urine 1-2 Normal 0-2 [facility] Comment on above: Order Comment: Name Collection Type:: Clean-Voided Midstream Performed By: #### U HCG, URDS, ADDONUAPLUS ####[place] [id number] [facility] Urobilinogen,Urine Normal Normal Normal [facility] Comment on above: Order Comment: Name Collection Type:: Clean-Voided Midstream Performed By: #### U HCG, URDS, ADDONUAPLUS ####[address] WBC,Urine 1-2 Normal 0-4 [facility] Comment on above: Order Comment: Name Collection Type:: Clean-Voided Midstream Performed By: #### U HCG, URDS, ADDONUAPLUS ####[address] Drug Screen,Urineon 06-29-20 Amphetamine Screen,Urine Negative Normal Negative [facility] Comment on above: Performed By: #### U HCG, URDS, ADDONUAPLUS ####[address] Barbiturate Screen,Urine Negative Normal Negative [facility] Comment on above: Performed By: #### U HCG, URDS, ADDONUAPLUS ####[address] Benzodiazepines Screen,Urine Negative Normal Negative [facility] Comment on above: Performed By: #### U HCG, URDS, ADDONUAPLUS ####[address] Cannabinoid Screen,Urine Positive High Negative [facility] Comment on above: Result Comment: Thes e are unconfirmed results and should not be used for legal purposes. Drug Cut-Off Concentration: AMPH 1000 ng/mL VENKATA 200 ng/mL BREANNA 200 ng/mL COCM 300 ng/mL OP 300 ng/mL PCP 25 ng/mL THC 20 ng/mL PERFORMED BY: [facility] [address] [place] [address] PATHOLOGIST ASIC VERIFICATION ENGINEER KIERSTEN BYNUM M.D. Performed By: #### U HCG, URDS, ADDONUAPLUS ####[address] Cocaine Screen,Urine Negative Normal Negative [facility] [facility] Comment on above: Performed By: #### U HCG, URDS, ADDONUAPLUS ####[address] Opiate Screen,Urine Negative Normal Negative [facility] Comment on above: Performed By: #### U HCG, URDS, ADDONUAPLUS ####[address] [address] [place] Phencyclidine Screen,Urine Negative Normal Negative [facility] Comment on above: Performed By: #### U HCG, URDS, ADDONUAPLUS ####[facility] [id number] Eosinophils Auto (Bld) [#/Vo l]Ordered By: Paramjit Yanes on 06-29-2024 Eosinophils (Bld) [#/Vol] Automated eosinophil count 0.0-0.45 [facility] Eosinophils/100 WBC Auto (Bl d)Ordered By: Paramjit Yanes on 06-29-2024 Eosinophils/100 WBC (Bld) Automated eosinophil % . [facility] Epithelial cells.squamous [# /area] in Urine sediment by Automated countOrdered By: Paramjit Yanes on 06-29-2024 Epithelial cells.squamous Auto (Urine sed) [#/Area] 1-2 [HPF] 0-2 [facility] Epithelial cells.squamous Auto (Urine sed) [#/Area] Epithelial cells.squamous [#/area] in Urine sediment by Automated count 0-2 [facility] Erythrocyte distribution wid th Auto (RBC) [Ratio]Ordered By: Paramjit Yanes on 06-29-2024 Erythrocyte distribution width (RBC) [Ratio] Erythrocyte distribution width [Ratio] by Automated count 11.9-15.3 [facility] Erythrocyte distribution wid th [Ratio] by Automated countOrdered By: Paramjit Yanes on 06-29-2024 Erythrocyte distribution width (RBC) [Ratio] 13.0 % Normal 11.9-15.3 [facility] Comment on above: Performed By: #### E CAPO, CBC, CMP ####[facility] [id number] Erythrocytes [#/area] in Uri ne sediment by Automated countOrdered By: Paramjit Yanes on 06-29-2024 RBC Auto (Urine sed) [#/Area] 1-2 [HPF] 0-4 [facility] RBC Auto (Urine sed) [#/Area] Erythrocytes [#/area] in Urine sediment by Automated count 0-4 [facility] Erythrocytes [#/volume] in B lood by Automated countOrdered By: Paramjit Yanes on 06-29-2024 RBC (Bld) [#/Vol] 4.85 10*6/uL Normal 3.60-5.00 [facility] Comment on above: Performed By: #### E CAPO, CBC, CMP ####[facility] [id number] [place] [id number] [facility] Ethanol [Mass/volume] in Ser um or PlasmaOrdered By: Paramjit Yanes on 06-29-2024 Ethanol [Mass/Vol] mg/dL Normal [facility] Comment on above: Performed By: #### E CAPO, CBC, CMP ####[facility] [id number] [place] [id number] [facility] Ethanol [Mass/Vol] TNP [facility] Comment on above: Test not performed Ethanol [Mass/Vol] Ethanol [Mass/volume ] in Serum or Plasma [facility] Comment on above: Test not performed Ethyl Alcohol Profileon 06-10 Percent Ethanol Not performed Normal [facility] Comment on above: Result Comment: PERF ORMED BY: [facility] [address] [place] [address] PATHOLOGIST ASIC VERIFICATION ENGINEER KIERSTEN BYNUM M.D. Performed By: #### E CAPO, CBC, CMP ####[facility] [id number] [place] [id number] [facility] Globulin Calc (S) [Mass/Vol] Ordered By: Paramjit Yanes on 06-29-2024 Globulin (S) [Mass/Vol] Serum globulin m easurement by calculation (mass/volume) [facility] Glucose [Mass/volume] in Ser um or PlasmaOrdered By: Paramjit Yanes on 06-29-2024 Glucose [Mass/Vol] 86 mg/dL Normal 70-100 [facility] Comment on above: ADA recommended refe rence rangeRandom Glucose Reference Range is dependent on time and content of last meal. Glucose of more than 200 mg/dL in a nonstressed, ambulatory subject supports the diagnosis of Diabetes Mellitus. Result Comment: [place] om Glucose Reference Range is dependent on time and content of last meal. Glucose of more than 200 mg/dL in a nonstressed, ambulatory subject supports the diagnosis of Diabetes Mellitus. ADA recommended reference range Performed By: #### E CAPO, CBC, CMP ####[facility] [id number] [place] [address] [facility] Glucose [Mass/Vol] Glucose [Mass/volume ] in Serum or Plasma 70-100 [facility] Comment on above: ADA recommended refe rence rangeRandom Glucose Reference Range is dependent on time and content of last meal. Glucose of more than 200 mg/dL in a nonstressed, ambulatory subject supports the diagnosis of Diabetes Mellitus. Glucose [Mass/volume] in Uri ne by Test stripOrdered By: Paramjit Yanes on 06-29-2024 Glucose Test strip (U) [Mass/Vol] Normal mg/dL Normal [facility] Glucose Test strip (U) [Mass/Vol] Glucose [Mass/volume] in Urine by Test strip Normal [facility] HCG ( test) IA.rapi d Ql (U)Ordered By: Paramjit Yanes on 06-29-2024 HCG ( test) Ql (U) Negative [facility] HCG ( test) Ql (U) Urine human chorionic gonadotropin (hCG) detection by immunoassay [facility] HCG,Urineon 06-29-2024 Beta HCG ( test) Ql (U) Negative Normal [facility] Comment on above: Order Comment: Name Collection Type:: Clean-Voided Midstream Result Comment: PERF ORMED BY: [facility] [address] [place] [address] PATHOLOGIST ASIC VERIFICATION ENGINEER KIERSTEN BYNUM M.D. Performed By: #### U HCG, URDS, ADDONUAPLUS ####[facility] [id number] [place] [address] [facility] Hematocrit Auto (Bld) [Volum e fraction]Ordered By: Paramjit Yanes on 06-29-2024 Hematocrit (Bld) [Volume fraction] Hematocrit [Volume Fraction] of Blood by Automated count 34.0-46.4 [facility] Hematocrit [Volume Fraction] of Blood by Automated countOrdered By: Paramjit Yanes on 06-29-2024 Hematocrit (Bld) [Volume fraction] 42.2 % Normal 34.0-46.4 [facility] Comment on above: Performed By: #### E CAPO, CBC, CMP ####[place] [id number] Hemoglobin Test strip Ql (U) Ordered By: Paramjit Yanes on 06-29-2024 Hemoglobin Ql (U) Negative Negative [facility] Hemoglobin Ql (U) Hemoglobin [Presence ] in Urine by Test strip Negative [facility] Hemoglobin [Mass/volume] in BloodOrdered By: Paramjit Yanes on 06-29-2024 Hemoglobin (Bld) [Mass/Vol] 14.6 g/dL Normal 11.8-15.4 [facility] Comment on above: Performed By: #### E CAPO, CBC, CMP ####[facility] [id number] Hemoglobin (Bld) [Mass/Vol] Hemoglobin [Mass/volume] in Blood 11.8-15.4 [facility] Hyaline casts [#/area] in Ur ine sediment by Automated countOrdered By: Paramjit Yanes on 06-29-2024 Hyaline casts Auto (Urine sed) [#/Area] None [LPF] 0-8 [facility] Hyaline casts Auto (Urine sed) [#/Area] Hyaline casts [#/area] in Urine sediment by Automated count 0-8 [facility] Ketones Test strip Ql (U)Ord ered By: Paramjit Yanes on 06-29-2024 Ketones Ql (U) Ketones [Presence] i n Urine by Test strip Negative [facility] Ketones [Presence] in Urine by Test stripOrdered By: Paramjit Yanes on 06-29-2024 Ketones Ql (U) Negative Normal Negative [facility] Comment on above: Order Comment: Name Collection Type:: Clean-Voided Midstream Performed By: #### U HCG, URDS, ADDONUAPLUS ####[address] Leukocyte esterase [Presence ] in Urine by Test stripOrdered By: Paramjit Yanes on 06-29-2024 Leukocyte esterase Test strip Ql (U) Negative Normal Negative [facility] Comment on above: Order Comment: Name Collection Type:: Clean-Voided Midstream Performed By: #### U HCG, URDS, ADDONUAPLUS ####[facility] [id number] Leukocyte esterase Test strip Ql (U) Leukocyte esterase [Presence] in Urine by Test strip Negative [facility] Leukocytes [#/area] in Urine sediment by Automated countOrdered By: Paramjit Yanes on 06-29-2024 WBC Auto (Urine sed) [#/Area] 1-2 [HPF] 0-4 [facility] WBC Auto (Urine sed) [#/Area] Leukocytes [#/area] in Urine sediment by Automated count 0-4 [facility] Leukocytes [#/volume] correc michael for nucleated erythrocytes in Blood by Automated counOrdered By: Paramjit Yanes on 06-29-2024 WBC corrected for nucl RBC Auto (Bld) [#/Vol] 7.3 10*3/uL 3.8-11.6 [facility] WBC corrected for nucl RBC Auto (Bld) [#/Vol] Leukocytes [#/volume] corrected for nucleated erythrocytes in Blood by Automated coun 3.8-11.6 [facility] Leukocytes [#/volume] in Blo od by Automated countOrdered By: Paramjit Yanes on 06-29-2024 WBC (Bld) [#/Vol] 7.3 10*3/uL Normal 3.8-11.6 [facility] Comment on above: Performed By: #### E CAPO, CBC, CMP ####[facility] [id number] Lymphocytes Auto (Bld) [#/Vo l]Ordered By: Paramjit Yanes on 06-29-2024 Lymphocytes (Bld) [#/Vol] Lymphocytes [#/volume] in Blood by Automated count 1.00-4.8 [facility] Lymphocytes [#/volume] in Bl ood by Automated countOrdered By: Paramjit Yanes on 06-29-2024 Lymphocytes (Bld) [#/Vol] 1.6 10*3/uL Normal 1.00-4.8 [facility] Comment on above: Performed By: #### E CAPO, CBC, CMP ####[place] [id number] [address] Lymphocytes/100 WBC Auto (Bl d)Ordered By: Paramjit Yanes on 06-29-2024 Lymphocytes/100 WBC (Bld) Lymphocytes/100 leukocytes in Blood by Automated count . [facility] Lymphocytes/100 leukocytes i n Blood by Automated countOrdered By: Paramjit Yanes on 06-29-2024 Lymphocytes/100 WBC (Bld) 22.3 % Normal . [facility] Comment on above: Performed By: #### E CAPO, CBC, CMP ####[address] MCH Auto (RBC) [Entitic mass ]Ordered By: Paramjit Yanes on 06-29-2024 MCH (RBC) [Entitic mass] MCH [Entitic mass] by Automated count 24.7-34.3 [facility] MCH [Entitic mass] by Automa michael countOrdered By: Paramjit Yanes on 06-29-2024 MCH (RBC) [Entitic mass] 30.1 pg Normal 24.7-34.3 [facility] Comment on above: Performed By: #### E CAPO, CBC, CMP ####[address] MCHC Auto (RBC) [Mass/Vol]Or dered By: Paramjit Yanes on 06-29-2024 MCHC (RBC) [Mass/Vol] 34.6 g/dL 32.0-35.0 [facility] MCHC (RBC) [Mass/Vol] MCHC [Mass/volume] by Automated count 32.0-35.0 [facility] MCV Auto (RBC) [Entitic vol] Ordered By: Paramjit Yanes on 06-29-2024 MCV (RBC) [Entitic vol] MCV [Entitic vol ume] by Automated count 80-100 [facility] MCV [Entitic volume] by Auto mated countOrdered By: Paramjit Yanes on 06-29-2024 MCV (RBC) [Entitic vol] 87.2 fL Normal 80-100 [facility] Comment on above: Performed By: #### E CAPO, CBC, CMP ####[facility] [id number] Monocyte distribution width [Entitic volume] in Blood by AutomatedOrdered By: Paramjit Yanes on 06-29-2024 Monocyte distribution width Auto (Bld) [Entitic vol] 17.44 % 0.00-20.00 [facility] Monocyte distribution width Auto (Bld) [Entitic vol] Monocyte distribution width [Entitic volume] in Blood by Automated 0.00-20.00 [facility] Monocytes Auto (Bld) [#/Vol] Ordered By: Paramjit Yanes on 06-29-2024 Monocytes (Bld) [#/Vol] Automated blood monocyte count 0.0-0.8 [facility] Monocytes/100 WBC Auto (Bld) Ordered By: Paramjit Yanes on 06-29-2024 Monocytes/100 WBC (Bld) Automated monocyte % . [facility] Mucus [Presence] in Urine by AutomatedOrdered By: Paramjit Yanes on 06-29-2024 Mucus Auto Ql (U) 4+ [LPF] Abnormal [facility] Mucus Auto Ql (U) Mucus [Presence] in Urine by Automated Abnormal [facility] Neutrophils Auto (Bld) [#/Vo l]Ordered By: Paramjit Yanes on 06-29-2024 Neutrophils (Bld) [#/Vol] Neutrophils [#/volume] in Blood by Automated count 1.8-7.7 [facility] Neutrophils [#/volume] in Bl ood by Automated countOrdered By: Paramjit Yanes on 06-29-2024 Neutrophils (Bld) [#/Vol] 5.0 10*3/uL Normal 1.8-7.7 [facility] Comment on above: Performed By: #### E CAPO, CBC, CMP ####[facility] [id number] Neutrophils/100 WBC Auto (Bl d)Ordered By: Paramjit Yanes on 06-29-2024 Neutrophils/100 WBC (Bld) Automated neutrophil % . [facility] Nitrite Test strip Ql (U)Ord ered By: Paramjit Yanes on 06-29-2024 Nitrite Ql (U) Negative Negative [facility] Nitrite Ql (U) Nitrite [Presence] i n Urine by Test strip Negative [facility] No Panel InformationOrdered By: Paramjit Yanes on 06-29-2024 Estimated GFR (CKD-EPI) > 60.0 mL/Min [facility] Creatinine Clearance (Chem 91.90 [facility] Nucleated erythrocytes [Pres ence] in Blood by Automated countOrdered By: Paramjit Yanes on 06-29-2024 Nucleated RBC Auto Ql (Bld) 0.0 /100{WBC} 0-0.5 [facility] Nucleated RBC Auto Ql (Bld) Nucleated erythrocytes [Presence] in Blood by Automated count 0-0.5 [facility] Opiates [Presence] in Urine by Screen methodOrdered By: Paramjit Yanes on 06-29-2024 Opiates Screen Ql (U) Negative Negative [facility] Opiates Screen Ql (U) Opiates [Presence] in Urine by Screen method Negative [facility] Phencyclidine Screen Ql (U)O rdered By: Paramjit Yanes on 06-29-2024 Phencyclidine Ql (U) Negative Negative [facility] Phencyclidine Ql (U) Phencyclidine [Pres ence] in Urine by Screen method Negative [facility] Platelet mean volume Auto (B ld) [Entitic vol]Ordered By: Paramjit Yanes on 06-29-2024 Platelet mean volume (Bld) [Entitic vol] Platelet mean volume [Entitic volume] in Blood by Automated count 6.3-10.7 [facility] Platelet mean volume [Entiti c volume] in Blood by Automated countOrdered By: Paramjit Yanes on 06-29-2024 Platelet mean volume (Bld) [Entitic vol] 7.6 fL Normal 6.3-10.7 [facility] Comment on above: Performed By: #### E CAPO, CBC, CMP ####[facility] [id number] [place] [address] [facility] Platelets Auto (Bld) [#/Vol] Ordered By: Paramjit Yanes on 06-29-2024 Platelets (Bld) [#/Vol] Platelets [#/vol ume] in Blood by Automated count 150-450 [facility] Platelets [#/volume] in Bloo d by Automated countOrdered By: Paramjit Yanes on 06-29-2024 Platelets (Bld) [#/Vol] 278 10*3/uL Normal 150-450 [facility] Comment on above: Performed By: #### E CAPO, CBC, CMP ####[place] [address] [place] [address] [place] Potassium [Moles/volume] in Serum or PlasmaOrdered By: Paramjit Yanes on 06-29-2024 Potassium [Moles/Vol] 4.1 mmol/L Normal 3.5-5.1 [facility] Comment on above: Performed By: #### E CAPO, CBC, CMP ####[address] [address] [facility] Potassium [Moles/Vol] Potassium [Moles/v olume] in Serum or Plasma 3.5-5.1 [facility] Protein Test strip (U) [Mass /Vol]Ordered By: Paramjit Yanes on 06-29-2024 Protein (U) [Mass/Vol] Protein [Mass/vol ume] in Urine by Test strip High Negative [facility] Protein [Mass/volume] in Ser um or PlasmaOrdered By: Paramjit Yanes on 06-29-2024 Protein [Mass/Vol] 8.1 g/dL Normal 6.4-8.9 [facility] Comment on above: Performed By: #### E CAPO, CBC, CMP ####[address] [address] [facility] Protein [Mass/Vol] Protein [Mass/volume ] in Serum or Plasma 6.4-8.9 [facility] Protein [Mass/volume] in Uri ne by Test stripOrdered By: Paramjit Yanes on 06-29-2024 Protein (U) [Mass/Vol] 20 mg/dL High Negative [facility] Comment on above: Order Comment: Name Collection Type:: Clean-Voided Midstream Performed By: #### U HCG, URDS, ADDONUAPLUS ####[address] [place] [address] [place] RBC Auto (Bld) [#/Vol]Ordere d By: Paramjit Yanes on 06-29-2024 RBC (Bld) [#/Vol] Erythrocytes [#/volu me] in Blood by Automated count 3.60-5.00 [facility] Serum globulin measurement b y calculation (mass/volume)Ordered By: Paramjit Yanes on 06-29-2024 Globulin (S) [Mass/Vol] 3.0 g/dL Normal [facility] Comment on above: Performed By: #### E CAPO CBC, CMP ####[place] [address] [address] Serum or plasma albumin/glob ulin mass ratioOrdered By: Paramjit Yanes on 06-29-2024 Albumin/Globulin [Mass ratio] 1.7 {ratio} Normal [facility] Comment on above: Performed By: #### E CAPO CBC, CMP ####[address] Albumin/Globulin [Mass ratio] Serum or plasma albumin/globulin mass ratio [facility] Serum or plasma anion gap de terminationOrdered By: Paramjit Yanes on 06-29-2024 Anion gap [Moles/Vol] 8.5 mmol/L Normal 6.0-15.0 [facility] Comment on above: Performed By: #### E CAPO CBC, CMP ####[address] Anion gap [Moles/Vol] Serum or plasma an ion gap determination 6.0-15.0 [facility] Sodium [Moles/volume] in Ser um or PlasmaOrdered By: Paramjit Yanes on 06-29-2024 Sodium [Moles/Vol] 138 mmol/L Normal 136-145 [facility] Comment on above: Performed By: #### E CAPO CBC, CMP ####[address] Sodium [Moles/Vol] Sodium [Moles/volume ] in Serum or Plasma 136-145 [facility] Specific gravity Test strip (U) [Rel density]Ordered By: Paramjit Yanes on 06-29-2024 Specific gravity (U) [Rel density] 1.026 1.001-1.03 0 [facility] Specific gravity (U) [Rel density] Specific gravity of Urine by Test strip 1.001-1.03 0 [facility] Urea nitrogen [Mass/volume] in Serum or PlasmaOrdered By: Paramjit Yanes on 06-29-2024 Urea nitrogen [Mass/Vol] 9 mg/dL Normal 04-02 [facility] Comment on above: Performed By: #### E CAPO, CBC, CMP ####[facility] [id number] [place] [id number] [facility] Urea nitrogen [Mass/Vol] Urea nitrogen [Mass/volume] in Serum or Plasma 04-02 [facility] Urine appearanceOrdered By: Paramjit Yanes on 06-29-2024 Appearance (U) Clear Normal Clear [facility] Comment on above: Order Comment: Name Collection Type:: Clean-Voided Midstream Performed By: #### U HCG, URDS, ADDONUAPLUS ####[facility] [id number] [place] [id number] [facility] Urobilinogen Test strip (U) [Mass/Vol]Ordered By: Paramjit Yanes on 06-29-2024 Urobilinogen (U) [Mass/Vol] Normal mg/dL Normal [facility] Urobilinogen (U) [Mass/Vol] Urobilinogen [Mass/volume] in Urine by Test strip Normal [facility] WBC Auto (Bld) [#/Vol]Ordere d By: Paramjit Yanes on 06-29-2024 WBC (Bld) [#/Vol] Leukocytes [#/volume ] in Blood by Automated count 3.8-11.6 [facility] pH Test strip (U)Ordered By: Paramjit Yanes on 06-29-2024 pH (U) pH of Urine by Test strip 5.0-9.0 [facility] pH of Urine by Test stripOrd ered By: Paramjit Yanes on 06-29-2024 pH (U) 6.5 [pH] Normal 5.0-9.0 [facility] Comment on above: Order Comment: Name Collection Type:: Clean-Voided Midstream Performed By: #### U HCG, URDS, ADDONUAPLUS ####[address] Alanine aminotransferase [En zymatic activity/volume] in Serum or PlasmaOrdered By: Derek Phipps on 04-17-2024 ALT [Catalytic activity/Vol] 8 U/L Normal 7-52 [facility] Comment on above: Performed By: #### H EPATIC, LIPASE, CBC, BMP ####[address] Albumin [Mass/volume] in Ser um or Plasma by Bromocresol green (BCG) dye binding methoOrdered By: Derek Phipps on 04-17-2024 Albumin BCG dye [Mass/Vol] 4.7 g/dL 3.5-5.7 [facility] Alkaline phosphatase [Enzyma tic activity/volume] in Serum or PlasmaOrdered By: Derek Phipps on 04-17-2024 ALP [Catalytic activity/Vol] 40 U/L Normal 34-104 [facility] Comment on above: Performed By: #### H EPATIC, LIPASE, CBC, BMP ####[address] Amphetamine Screen Ql (U)Ord ered By: Derek Phipps on 04-17-2024 Amphetamines Ql (U) Negative Negative [facility] Aspartate aminotransferase [ Enzymatic activity/volume] in Serum or PlasmaOrdered By: Derek Phipps on 04-17-2024 AST [Catalytic activity/Vol] 15 U/L Normal 13-39 [facility] Comment on above: Performed By: #### H EPATIC, LIPASE, CBC, BMP ####[address] Automated basophil %Ordered By: Derek Phipps on 04-17-2024 Basophils/100 WBC (Bld) 0.3 % Normal . [facility] Comment on above: Performed By: #### H EPATIC, LIPASE, CBC, BMP ####[address] Automated basophil countOrde red By: Derek Phipps on 04-17-2024 Basophils (Bld) [#/Vol] 0.0 10*3/uL Normal 0.0-0.2 [facility] Comment on above: Result Comment: PERF ORMED BY: [facility] [address] [place] [address] PATHOLOGIST ASIC VERIFICATION ENGINEER KIERSTEN BYNUM M.D. Performed By: #### H EPATIC, LIPASE, CBC, BMP ####[address] Automated blood monocyte cou ntOrdered By: Derek Phipps on 04-17-2024 Monocytes (Bld) [#/Vol] 0.3 10*3/uL Normal 0.0-0.8 [facility] Comment on above: Performed By: #### H EPATIC, LIPASE, CBC, BMP ####[address] Automated eosinophil %Ordere d By: Derek Phipps on 04-17-2024 Eosinophils/100 WBC (Bld) 1.8 % Normal . [facility] Comment on above: Performed By: #### H EPATIC, LIPASE, CBC, BMP ####[address] Automated eosinophil countOr dered By: Derek Phipps on 04-17-2024 Eosinophils (Bld) [#/Vol] 0.2 10*3/uL Normal 0.0-0.45 [facility] Comment on above: Performed By: #### H EPATIC, LIPASE, CBC, BMP ####[address] Automated monocyte %Ordered By: Derek Phipps on 04-17-2024 Monocytes/100 WBC (Bld) 3.4 % Normal . [facility] Comment on above: Performed By: #### H EPATIC, LIPASE, CBC, BMP ####[address] Automated neutrophil %Ordere d By: Derek Phipps on 08-09-2024 Neutrophils/100 WBC (Bld) 83.6 % Normal . [facility] Comment on above: Performed By: #### H EPATIC, LIPASE, CBC, BMP ####[place] [address] [address] Bacteria [Presence] in Urine by AutomatedOrdered By: Derek Phipps on 04-17-2024 Bacteria Auto Ql (U) None seen [HPF] None Seen [facility] Barbiturates [Presence] in U rine by Screen methodOrdered By: Derek Phipps on 04-17-2024 Barbiturates Screen Ql (U) Negative Negative [facility] Basic Metabolic Panelon Creatinine Clr Calc Pharmacy 94.59 Normal [facility] Comment on above: Performed By: #### H EPATIC, LIPASE, CBC, BMP ####[place] [address] [address] GFR/1.73 sq M.predicted MDRD (S/P/Bld) [Vol rate/Area] mL/min/{1.73_m2} Normal [facility] Comment on above: Performed By: #### H EPATIC, LIPASE, CBC, BMP ####[address] Benzodiazepines Screen Ql (U )Ordered By: Derek Phipps on 04-17-2024 Benzodiazepines Ql (U) Negative Negative [facility] Benzoylecgonine [Presence] i n Urine by Screen methodOrdered By: Derek Phipps on 04-17-2024 Benzoylecgonine Screen Ql (U) Negative Negative [facility] Bilirubin Test strip Ql (U)O rdered By: Derek Phipps on 04-17-2024 Bilirubin Ql (U) Negative Negative [facility] Bilirubin.direct [Mass/volum e] in Serum or PlasmaOrdered By: Derek Phipps on 04-17-2024 Bilirubin.direct [Mass/Vol] 0.10 mg/dL 0.03-0.18 [facility] Bilirubin.total [Mass/volume ] in Serum or PlasmaOrdered By: Derek Phipps on 04-17-2024 Bilirubin [Mass/Vol] 0.6 mg/dL Normal 0.3-1.0 [facility] Comment on above: Performed By: #### H EPATIC, LIPASE, CBC, BMP ####[place] [address] [place] [id number] [facility] Calcium [Mass/volume] in Ser um or PlasmaOrdered By: Derek Phipps on 04-17-2024 Calcium [Mass/Vol] 9.5 mg/dL Normal 8.6-10.3 [facility] Comment on above: Performed By: #### H EPATIC, LIPASE, CBC, BMP ####[place] [address] [place] [id number] [facility] Cannabinoids [Presence] in U rine by Screen methodOrdered By: Derek Phipps on 04-17-2024 Cannabinoids Screen Ql (U) Positive High Negative [facility] Comment on above: These are unconfirme d results and should not be used for legal purposes. Drug Cut-Off Concentration: AMPH 1000 ng/mL VENKATA 200 ng/mL BREANNA 200 ng/mL COCM 300 ng/mL OP 300 ng/mL PCP 25 ng/mL THC 20 ng/mL Carbon dioxide, total [Moles /volume] in Serum or PlasmaOrdered By: Derek Phipps on 04-17-2024 CO2 [Moles/Vol] 29.5 mmol/L Normal 21.0-31.0 [facility] Comment on above: Performed By: #### H EPATIC, LIPASE, CBC, BMP ####[place] [address] [place] [address] [facility] Chloride [Moles/volume] in S isabel or PlasmaOrdered By: Derek Phipps on 04-17-2024 Chloride [Moles/Vol] 105 mmol/L Normal 98-107 [facility] Comment on above: Performed By: #### H EPATIC, LIPASE, CBC, BMP ####[place] [id number] [facility] Color of Urine by AutoOrdere d By: Derek Phipps on 04-17-2024 Color (U) Yellow Normal Yellow [facility] Comment on above: Order Comment: Name Collection Type:: Clean-Voided Midstream Performed By: #### U HCG, ADDONUAPLUS, URDS #### [facility] [address] Complete Blood Count Auto Di ffon 04-17-2024 Mean Corpuscular HGB Conc 33.9 g/dL Normal 32.0-35.0 [facility] Comment on above: Performed By: #### H EPATIC, LIPASE, CBC, BMP ####[facility] Monocytes/100 WBC (Bld) 19.53 % Normal 0.00-20.00 [facility] Comment on above: Performed By: #### H EPATIC, LIPASE, CBC, BMP ####[address] NRBC% 0.0 /100{WBC} Normal 0-0.5 [facility] Comment on above: Performed By: #### H EPATIC, LIPASE, CBC, BMP ####[address] Creatinine [Mass/volume] in Serum or PlasmaOrdered By: Derek Phipps on 04-17-2024 Creatinine [Mass/Vol] 0.62 mg/dL Normal 0.60-1.20 [facility] Comment on above: Performed By: #### H EPATIC, LIPASE, CBC, BMP ####[address] Dipstick and Microscopicon 0 04-17-2024 Bacteria,Urine None Seen Normal None Seen [facility] Comment on above: Order Comment: Name Collection Type:: Clean-Voided Midstream Performed By: #### U HCG, ADDONUAPLUS, URDS #### [place] [address] [place] Bilirubin,Urine Negative Normal Negative [facility] Comment on above: Order Comment: Name Collection Type:: Clean-Voided Midstream Performed By: #### U HCG, ADDONUAPLUS, URDS #### [place] [address] [place] Glucose Ql (U) Normal Normal Normal [facility] Comment on above: Order Comment: Name Collection Type:: Clean-Voided Midstream Performed By: #### U HCG, ADDONUAPLUS, URDS #### [facility] [address] [place] [address] [place] Hyaline Casts,Urine None Normal 0-8 [facility] Comment on above: Order Comment: Name Collection Type:: Clean-Voided Midstream Performed By: #### U HCG, ADDONUAPLUS, URDS #### [facility] [address] [place] [address] [place] Mucus,Urine 4+ Critically abnormal [facility] Comment on above: Order Comment: Name Collection Type:: Clean-Voided Midstream Performed By: #### U HCG, ADDONUAPLUS, URDS #### [address] Nitrite,Urine Negative Normal Negative [facility] Comment on above: Order Comment: Name Collection Type:: Clean-Voided Midstream Performed By: #### U HCG, ADDONUAPLUS, URDS #### [address] Occult Blood,Urine Negative Normal Negative [facility] Comment on above: Order Comment: Name Collection Type:: Clean-Voided Midstream Performed By: #### U HCG, ADDONUAPLUS, URDS #### [address] Protein,Urine Trace High Negative [facility] Comment on above: Order Comment: Name Collection Type:: Clean-Voided Midstream Performed By: #### U HCG, ADDONUAPLUS, URDS #### [facility] [address] [place] [address] [place] RBC,Urine 1-2 Normal 0-4 [facility] Comment on above: Order Comment: Name Collection Type:: Clean-Voided Midstream Performed By: #### U HCG, ADDONUAPLUS, URDS #### [address] Specificy [place],Urine 1.020 Normal 1.00 1-1.03 0 [facility] Comment on above: Order Comment: Name Collection Type:: Clean-Voided Midstream Performed By: #### U HCG, ADDONUAPLUS, URDS #### [address] Squamous Epithelial Cell,Urine 3-4 High 0-2 [facility] Comment on above: Order Comment: Name Collection Type:: Clean-Voided Midstream Performed By: #### U HCG, ADDONUAPLUS, URDS #### [address] Urobilinogen,Urine Normal Normal Normal [facility] Comment on above: Order Comment: Name Collection Type:: Clean-Voided Midstream Performed By: #### U HCG, ADDONUAPLUS, URDS #### [address] WBC,Urine 1-2 Normal 0-4 [facility] Comment on above: Order Comment: Name Collection Type:: Clean-Voided Midstream Performed By: #### U HCG, ADDONUAPLUS, URDS #### [address] Drug Screen,Urineon 04-17-20 24 Amphetamine Screen,Urine Negative Normal Negative [facility] Comment on above: Performed By: #### U HCG, ADDONUAPLUS, URDS #### [address] Barbiturate Screen,Urine Negative Normal Negative [facility] Comment on above: Performed By: #### U HCG, ADDONUAPLUS, URDS #### [address] Benzodiazepines Screen,Urine Negative Normal Negative [facility] Comment on above: Performed By: #### U HCG, ADDONUAPLUS, URDS #### [address] Cannabinoid Screen,Urine Positive High Negative [facility] Comment on above: Result Comment: Thes e are unconfirmed results and should not be used for legal purposes. Drug Cut-Off Concentration: AMPH 1000 ng/mL VENKATA 200 ng/mL BREANNA 200 ng/mL COCM 300 ng/mL OP 300 ng/mL PCP 25 ng/mL THC 20 ng/mL PERFORMED BY: [place] [address] PATHOLOGIST ASIC VERIFICATION ENGINEER KIERSTEN BYNUM M.D. Performed By: #### U HCG, ADDONUAPLUS, URDS #### [facility] [address] [place] [address] Cocaine Screen,Urine Negative Normal Negative [facility] Comment on above: Performed By: #### U HCG, ADDONUAPLUS, URDS #### [facility] [address] [place] [address] Opiate Screen,Urine Negative Normal Negative [facility] Comment on above: Performed By: #### U HCG, ADDONUAPLUS, URDS #### [address] Phencyclidine Screen,Urine Negative Normal Negative [facility] Comment on above: Performed By: #### U HCG, ADDONUAPLUS, URDS #### [address] ECG 12 lead ECGon 04-17-2024 ECG 12 lead ECG [facility] [employer] [address] [place] [address] Electrocardiograph Report Signed Patient: Dawn Major MR#: [id number] : 2000 Acct:[id number] Age/Sex: 24 / F ADM Date: 04/17/24 Loc: ER Room: Type: [facility] ER Attending Dr: Ordering Provider: Derek [...] Anterior leads Confirmed by Adilia Jeronimo MD ([id number]) on 04/17/2024 6:03:08 PM Referred By: Electronically Signed By: Adilia Jeronimo MD Transcribed By: MUS Signed By Adilia Jeronimo MD 06/02 1803 Normal [facility] Epithelial cells.squamous [# /area] in Urine sediment by Automated countOrdered By: Derek Phipps on 04-17-2024 Epithelial cells.squamous Auto (Urine sed) [#/Area] 3-4 [HPF] High 0-2 [facility] Erythrocyte distribution wid th [Ratio] by Automated countOrdered By: Derek Phipps on 04-17-2024 Erythrocyte distribution width (RBC) [Ratio] 13.0 % Normal 11.9-15.3 [facility] Comment on above: Performed By: #### H EPATIC, LIPASE, CBC, BMP ####[facility] [id number] [place] [id number] [facility] Erythrocytes [#/area] in Uri ne sediment by Automated countOrdered By: Derek Phipps on 04-17-2024 RBC Auto (Urine sed) [#/Area] 1-2 [HPF] 0-4 [facility] Erythrocytes [#/volume] in B lood by Automated countOrdered By: Derek Phipps on 04-17-2024 RBC (Bld) [#/Vol] 4.66 10*6/uL Normal 3.60-5.00 [facility] Comment on above: Performed By: #### H EPATIC, LIPASE, CBC, BMP ####[facility] [id number] [place] [id number] [facility] Glucose [Mass/volume] in Ser um or PlasmaOrdered By: Derek Phipps on 04-17-2024 Glucose [Mass/Vol] 95 mg/dL Normal 70-100 [facility] Comment on above: ADA recommended refe rence rangeRandom Glucose Reference Range is dependent on time and content of last meal. Glucose of more than 200 mg/dL in a nonstressed, ambulatory subject supports the diagnosis of Diabetes Mellitus. Result Comment: [place] om Glucose Reference Range is dependent on time and content of last meal. Glucose of more than 200 mg/dL in a nonstressed, ambulatory subject supports the diagnosis of Diabetes Mellitus. ADA recommended reference range Performed By: #### H EPATIC, LIPASE, CBC, BMP ####[place] [address] Glucose [Mass/volume] in Uri ne by Test stripOrdered By: Derek Phipps on 04-17-2024 Glucose Test strip (U) [Mass/Vol] Normal mg/dL Normal [facility] HCG ( test) IA.rapi d Ql (U)Ordered By: Derek Phipps on 04-17-2024 HCG ( test) Ql (U) Negative [facility] HCG,Urineon 04-17-2024 Beta HCG ( test) Ql (U) Negative Normal [facility] Comment on above: Order Comment: Name Collection Type:: Clean-Voided Midstream Result Comment: PERF ORMED BY: [facility] [address] [place] [address] PATHOLOGIST ASIC VERIFICATION ENGINEER KIERSTEN BYNUM M.D. Performed By: #### U HCG, ADDONUAPLUS, URDS #### [facility] [address] [place] [address] Hematocrit [Volume Fraction] of Blood by Automated countOrdered By: Derek Phipps on 04-17-2024 Hematocrit (Bld) [Volume fraction] 40.8 % Normal 34.0-46.4 [facility] Comment on above: Performed By: #### H EPATIC, LIPASE, CBC, BMP ####[place] [address] [place] [id number] [facility] Hemoglobin Test strip Ql (U) Ordered By: Derek Phipps on 04-17-2024 Hemoglobin Ql (U) Negative Negative [facility] Hemoglobin [Mass/volume] in BloodOrdered By: Derek Phipps on 04-17-2024 Hemoglobin (Bld) [Mass/Vol] 13.8 g/dL Normal 11.8-15.4 [facility] Comment on above: Performed By: #### H EPATIC, LIPASE, CBC, BMP ####[facility] [id number] [place] [id number] [facility] Hepatic Panelon 04-17-2024 Albumin [Mass/Vol] 4.7 g/dL Normal 3.5-5.7 [facility] Comment on above: Performed By: #### H EPATIC, LIPASE, CBC, BMP ####[facility] [id number] [address] Bilirubin,Indirect 0.5 mg/dL Normal [facility] Comment on above: Performed By: #### H EPATIC, LIPASE, CBC, BMP ####[facility] Bilirubin.indirect [Mass/Vol] 0.10 mg/dL Normal 0.03-0.18 [facility] Comment on above: Performed By: #### H EPATIC, LIPASE, CBC, BMP ####[place] [address] [address] Hyaline casts [#/area] in Ur ine sediment by Automated countOrdered By: Derek Phipps on 04-17-2024 Hyaline casts Auto (Urine sed) [#/Area] None [LPF] 0-8 [facility] Ketones [Presence] in Urine by Test stripOrdered By: Derek Phipps on 04-17-2024 Ketones Ql (U) Negative Normal Negative [facility] Comment on above: Order Comment: Name Collection Type:: Clean-Voided Midstream Performed By: #### U HCG, ADDONUAPLUS, URDS #### [facility] [address] Leukocyte esterase [Presence ] in Urine by Test stripOrdered By: Derek Phipps on 04-17-2024 Leukocyte esterase Test strip Ql (U) Negative Normal Negative [facility] Comment on above: Order Comment: Name Collection Type:: Clean-Voided Midstream Performed By: #### U HCG, ADDONUAPLUS, URDS #### [facility] [address] [place] [address] [place] Leukocytes [#/area] in Urine sediment by Automated countOrdered By: Derek Phipps on 04-17-2024 WBC Auto (Urine sed) [#/Area] 1-2 [HPF] 0-4 [facility] Leukocytes [#/volume] correc michael for nucleated erythrocytes in Blood by Automated counOrdered By: Derek Phipps on 04-17-2024 WBC corrected for nucl RBC Auto (Bld) [#/Vol] 8.7 10*3/uL 3.8-11.6 [facility] Leukocytes [#/volume] in Blo od by Automated countOrdered By: Derek Phipps on 04-17-2024 WBC (Bld) [#/Vol] 8.7 10*3/uL Normal 3.8-11.6 [facility] Comment on above: Performed By: #### H EPATIC, LIPASE, CBC, BMP ####[place] [address] [place] [id number] [facility] Lipase [Enzymatic activity/v olume] in Serum or PlasmaOrdered By: Derek Phipps on 04-17-2024 Lipase [Catalytic activity/Vol] 20.0 U/L Normal 11.0-82.0 [facility] Comment on above: Result Comment: PERF ORMED BY: [facility] [address] [place] [id number] PATHOLOGIST ASIC VERIFICATION ENGINEER KIERSTEN BYNUM M.D. Performed By: #### H EPATIC, LIPASE, CBC, BMP ####[place] [id number] [facility] Lymphocytes [#/volume] in Bl ood by Automated countOrdered By: Derek Phipps on 04-17-2024 Lymphocytes (Bld) [#/Vol] 0.9 10*3/uL Low 1.00-4.8 [facility] Comment on above: Performed By: #### H EPATIC, LIPASE, CBC, BMP ####[place] [id number] [facility] Lymphocytes/100 leukocytes i n Blood by Automated countOrdered By: Derek Phipps on 04-17-2024 Lymphocytes/100 WBC (Bld) 10.9 % Normal . [facility] Comment on above: Performed By: #### H EPATIC, LIPASE, CBC, BMP ####[place] [id number] [place] MCH [Entitic mass] by Automa michael countOrdered By: Derek Phipps on 04-17-2024 MCH (RBC) [Entitic mass] 29.7 pg Normal 24.7-34.3 [facility] Comment on above: Performed By: #### H EPATIC, LIPASE, CBC, BMP ####[place] [address] MCHC Auto (RBC) [Mass/Vol]Or dered By: Derek Phipps on 04-17-2024 MCHC (RBC) [Mass/Vol] 33.9 g/dL 32.0-35.0 [facility] MCV [Entitic volume] by Auto mated countOrdered By: Derek Phipps on 04-17-2024 MCV (RBC) [Entitic vol] 87.6 fL Normal 80-100 [facility] Comment on above: Performed By: #### H EPATIC, LIPASE, CBC, BMP ####[place] [address] [address] Monocyte distribution width [Entitic volume] in Blood by AutomatedOrdered By: Derek Phipps on 04-17-2024 Monocyte distribution width Auto (Bld) [Entitic vol] 19.53 % 0.00-20.00 [facility] Mucus [Presence] in Urine by AutomatedOrdered By: Derek Phipps on 04-17-2024 Mucus Auto Ql (U) 4+ [LPF] Abnormal [facility] Neutrophils [#/volume] in Bl ood by Automated countOrdered By: Derek Phipps on 04-17-2024 Neutrophils (Bld) [#/Vol] 7.3 10*3/uL Normal 1.8-7.7 [facility] Comment on above: Performed By: #### H EPATIC, LIPASE, CBC, BMP ####[facility]1111 [place] [id number] [facility] Nitrite Test strip Ql (U)Ord ered By: Derek Phipps on 04-17-2024 Nitrite Ql (U) Negative Negative [facility] No Panel InformationOrdered By: Derek Phipps on 04-17-2024 Estimated GFR (CKD-EPI) > 60.0 mL/Min [facility] Creatinine Clearance (Chem 94.59 [facility] Nucleated erythrocytes [Pres ence] in Blood by Automated countOrdered By: Derek Phipps on 04-17-2024 Nucleated RBC Auto Ql (Bld) 0.0 /100{WBC} 0-0.5 [facility] Opiates [Presence] in Urine by Screen methodOrdered By: Derek Phipps on 04-17-2024 Opiates Screen Ql (U) Negative Negative [facility] Phencyclidine Screen Ql (U)O rdered By: Derek Phipps on 04-17-2024 Phencyclidine Ql (U) Negative Negative [facility] Platelet mean volume [Entiti c volume] in Blood by Automated countOrdered By: Derek Phipps on 04-17-2024 Platelet mean volume (Bld) [Entitic vol] 7.8 fL Normal 6.3-10.7 [facility] Comment on above: Performed By: #### H EPATIC, LIPASE, CBC, BMP ####[facility] [id number] [address] Platelets [#/volume] in Bloo d by Automated countOrdered By: Derek Phipps on 04-17-2024 Platelets (Bld) [#/Vol] 253 10*3/uL Normal 150-450 [facility] Comment on above: Performed By: #### H EPATIC, LIPASE, CBC, BMP ####[address] Potassium [Moles/volume] in Serum or PlasmaOrdered By: Derek Phipps on 04-17-2024 Potassium [Moles/Vol] 3.8 mmol/L Normal 3.5-5.1 [facility] Comment on above: Performed By: #### H EPATIC, LIPASE, CBC, BMP ####[place] [id number] [facility] Protein Test strip (U) [Mass /Vol]Ordered By: Derek Phipps on 04-17-2024 Protein (U) [Mass/Vol] Trace mg/dL High Negative [facility] Protein [Mass/volume] in Ser um or PlasmaOrdered By: Derek Phipps on 04-17-2024 Protein [Mass/Vol] 7.4 g/dL Normal 6.4-8.9 [facility] Comment on above: Performed By: #### H EPATIC, LIPASE, CBC, BMP ####[place] [address] [address] Serum globulin measurement b y calculation (mass/volume)Ordered By: Derek Phipps on 04-17-2024 Globulin (S) [Mass/Vol] 2.7 g/dL Normal [facility] Comment on above: Performed By: #### H EPATIC, LIPASE, CBC, BMP ####[address] Serum or plasma albumin/glob ulin mass ratioOrdered By: Derek Phipps on 04-17-2024 Albumin/Globulin [Mass ratio] 1.7 {ratio} Normal [facility] Comment on above: Performed By: #### H EPATIC, LIPASE, CBC, BMP ####[address] Serum or plasma anion gap de terminationOrdered By: Derek Phipps on 04-17-2024 Anion gap [Moles/Vol] 9.3 mmol/L Normal 6.0-15.0 [facility] Comment on above: Performed By: #### H EPATIC, LIPASE, CBC, BMP ####[address] Serum or plasma non-glucuron idated bilirubin measurement (mass/volume)Ordered By: Derek Phipps on 04-17-2024 Bilirubin.indirect [Mass/Vol] 0.5 mg/dL [facility] Sodium [Moles/volume] in Ser um or PlasmaOrdered By: Derek Phipps on 04-17-2024 Sodium [Moles/Vol] 140 mmol/L Normal 136-145 [facility] Comment on above: Performed By: #### H EPATIC, LIPASE, CBC, BMP ####[address] Specific gravity Test strip (U) [Rel density]Ordered By: Derek Phipps on 04-17-2024 Specific gravity (U) [Rel density] 1.020 1.001-1.03 0 [facility] Urea nitrogen [Mass/volume] in Serum or PlasmaOrdered By: Derek Phipps on 04-17-2024 Urea nitrogen [Mass/Vol] 6 mg/dL Low 7-25 [facility] Comment on above: Performed By: #### H EPATIC, LIPASE, CBC, BMP ####[facility] [id number] [address] Urine appearanceOrdered By: Derek Phipps on 04-17-2024 Appearance (U) Clear Normal Clear [facility] Comment on above: Order Comment: Name Collection Type:: Clean-Voided Midstream Performed By: #### U HCG, ADDONUAPLUS, URDS #### [facility] [address] Urobilinogen Test strip (U) [Mass/Vol]Ordered By: Derek Phipps on 04-17-2024 Urobilinogen (U) [Mass/Vol] Normal mg/dL Normal [facility] pH of Urine by Test stripOrd ered By: Derek Phipps on 04-17-2024 pH (U) 7.5 [pH] Normal 5.0-9.0 [facility] Comment on above: Order Comment: Name Collection Type:: Clean-Voided Midstream Performed By: #### U HCG, ADDONUAPLUS, URDS #### [facility] [address] Basophils Auto (Bld) [#/Vol] Ordered By: Sedrick Wells on 10-13-2023 Basophils (Bld) [#/Vol] 0.0 10*3/uL 0.0-0.2 [facility] Basophils/100 WBC Auto (Bld) Ordered By: Sedrick Wells on 10-13-2023 Basophils/100 WBC (Bld) 0.6 % . [facility] Calcium [Mass/volume] in Ser um or PlasmaOrdered By: Sedrick Wells on 10-13-2023 Calcium [Mass/Vol] 9.0 mg/dL 8.6-10.3 [facility] Carbon dioxide, total [Moles /volume] in Serum or PlasmaOrdered By: Sedrick Wells on 10-13-2023 CO2 [Moles/Vol] 28.6 mmol/L 21.0-31.0 [facility] Chloride [Moles/volume] in S isabel or PlasmaOrdered By: Sedrick Wells on 10-13-2023 Chloride [Moles/Vol] 107 mmol/L 98-107 [facility] Choriogonadotropin.beta subu nit [Units/volume] in Serum or PlasmaOrdered By: Sedrick Wells on 10-13-2023 HCG.beta subunit Qn Negative [facility] Creatine kinase [Enzymatic a ctivity/volume] in Serum or PlasmaOrdered By: Sedrick Wells on 10-13-2023 CK [Catalytic activity/Vol] 42 U/L 30-223 [facility] Creatinine [Mass/volume] in Serum or PlasmaOrdered By: Sedrick Wells on 10-13-2023 Creatinine [Mass/Vol] 0.51 mg/dL 0.60-1.20 [facility] [facility] Eosinophils Auto (Bld) [#/Vo l]Ordered By: Sedrick Wells on 10-13-2023 Eosinophils (Bld) [#/Vol] 0.3 10*3/uL 0.0-0.45 [facility] Eosinophils/100 WBC Auto (Bl d)Ordered By: Sedrick Wells on 10-13-2023 Eosinophils/100 WBC (Bld) 3.8 % . [facility] Erythrocyte distribution wid th Auto (RBC) [Ratio]Ordered By: Sedrick Wells on 10-13-2023 Erythrocyte distribution width (RBC) [Ratio] 13.9 % 11.9-15.3 [facility] Glucose [Mass/volume] in Ser um or PlasmaOrdered By: Sedrick Wells on 10-13-2023 Glucose [Mass/Vol] 80 mg/dL 70-100 [facility] Comment on above: ADA recommended refe rence rangeRandom Glucose Reference Range is dependent on time and content of last meal. Glucose of more than 200 mg/dL in a nonstressed, ambulatory subject supports the diagnosis of Diabetes Mellitus. Hematocrit Auto (Bld) [Volum e fraction]Ordered By: Sedrick Wells on 10-13-2023 Hematocrit (Bld) [Volume fraction] 34.6 % 34.0-46.4 [facility] Hemoglobin [Mass/volume] in BloodOrdered By: Sedrick Wells on 10-13-2023 Hemoglobin (Bld) [Mass/Vol] 11.8 g/dL 11.8-15.4 [facility] Leukocytes [#/volume] correc michael for nucleated erythrocytes in Blood by Automated counOrdered By: Sedrick Wells on 10-13-2023 WBC corrected for nucl RBC Auto (Bld) [#/Vol] 6.9 10*3/uL 3.8-11.6 [facility] Lymphocytes Auto (Bld) [#/Vo l]Ordered By: Sedrick Wells on 10-13-2023 Lymphocytes (Bld) [#/Vol] 1.5 10*3/uL 1.00-4.8 [facility] Lymphocytes/100 WBC Auto (Bl d)Ordered By: Sedrick Wells on 10-13-2023 Lymphocytes/100 WBC (Bld) 21.5 % . [facility] MCH Auto (RBC) [Entitic mass ]Ordered By: Sedrick Wells on 10-13-2023 MCH (RBC) [Entitic mass] 29.3 pg 24.7-34.3 [facility] MCHC Auto (RBC) [Mass/Vol]Or dered By: Sedrick Wells on 10-13-2023 MCHC (RBC) [Mass/Vol] 33.9 g/dL 32.0-35.0 [facility] MCV Auto (RBC) [Entitic vol] Ordered By: Sedrick Wells on 10-13-2023 MCV (RBC) [Entitic vol] 86.4 fL 80-100 [facility] Monocyte distribution width [Entitic volume] in Blood by AutomatedOrdered By: Sedrick Wells on 10-13-2023 Monocyte distribution width Auto (Bld) [Entitic vol] 16.72 % 0.00-20.00 [facility] Monocytes Auto (Bld) [#/Vol] Ordered By: Sedrick Wells on 10-13-2023 Monocytes (Bld) [#/Vol] 0.3 10*3/uL 0.0-0.8 [facility] Monocytes/100 WBC Auto (Bld) Ordered By: Sedrick Wells on 10-13-2023 Monocytes/100 WBC (Bld) 4.7 % . [facility] Natriuretic peptide B [Mass/ Vol]Ordered By: Sedrick Wells on 10-13-2023 Natriuretic peptide B (Bld) [Mass/Vol] 30.0 pg/mL 5-100 [facility] Neutrophils Auto (Bld) [#/Vo l]Ordered By: Sedrick Wells on 10-13-2023 Neutrophils (Bld) [#/Vol] 4.8 10*3/uL 1.8-7.7 [facility] Neutrophils/100 WBC Auto (Bl d)Ordered By: Sedrick Wells on 10-13-2023 Neutrophils/100 WBC (Bld) 69.4 % . [facility] No Panel InformationOrdered By: Sedrick Wells on 10-13-2023 Estimated GFR (CKD-EPI) > 60.0 mL/Min [facility] Creatinine Clearance (Chem 118.45 [facility] Nucleated erythrocytes [Pres ence] in Blood by Automated countOrdered By: Sedrick Wells on 10-13-2023 Nucleated RBC Auto Ql (Bld) 0.1 /100{WBC} 0-0.5 [facility] Platelet mean volume Auto (B ld) [Entitic vol]Ordered By: Sedrick Wells on 10-13-2023 Platelet mean volume (Bld) [Entitic vol] 7.7 fL 6.3-10.7 [facility] Platelets Auto (Bld) [#/Vol] Ordered By: Sedrick Wells on 10-13-2023 Platelets (Bld) [#/Vol] 257 10*3/uL 150-450 [facility] Potassium [Moles/volume] in Serum or PlasmaOrdered By: Sedrick Wells on 10-13-2023 Potassium [Moles/Vol] 3.7 mmol/L 3.5-5.1 [facility] RBC Auto (Bld) [#/Vol]Ordere d By: Sedrick Wells on 10-13-2023 RBC (Bld) [#/Vol] 4.01 10*6/uL 3.60-5.00 [facility] Serum or plasma anion gap de terminationOrdered By: Sedrick Wells on 10-13-2023 Anion gap [Moles/Vol] 7.1 mmol/L 6.0-15.0 [facility] Sodium [Moles/volume] in Ser um or PlasmaOrdered By: Sedrick Wells on 10-13-2023 Sodium [Moles/Vol] 139 mmol/L 136-145 [facility] Troponin I.cardiac [Mass/vol ume] in Serum or Plasma by Detection limit <= 0.01 ng/Ordered By: Sedrick Wells on 10-13-2023 Troponin I.cardiac DL <= 0.01 ng/mL [Mass/Vol] < 2.3 pg/mL 0.0-15.0 [facility] Urea nitrogen [Mass/volume] in Serum or PlasmaOrdered By: Sedrick Wells on 10-13-2023 Urea nitrogen [Mass/Vol] 10 mg/dL 7- [facility] WBC Auto (Bld) [#/Vol]Ordere d By: Sedrick Wells on 10-13-2023 WBC (Bld) [#/Vol] 6.9 10*3/uL 3.8-11.6 [facility] Activated partial thrombopla stin time (aPTT) in platelet poor plasma by coagulation aOrdered By: Ashley Roberson on 09-28-2023 aPTT Coag (PPP) [Time] 31.0 s 25.1-36.5 [facility] Comment on above: A hematocrit value g reater than 55% may lead to inaccurate results in coagulation testing. Patients having hematocrit values >55% require a special collection tube for coagulation studies. Please contact the laboratory at [phone] for redraw instructions. Alanine aminotransferase [En zymatic activity/volume] in Serum or PlasmaOrdered By: Ashley Roberson on 09-28-2023 ALT [Catalytic activity/Vol] 6 U/L 7-52 [facility] Albumin [Mass/volume] in Ser um or Plasma by Bromocresol green (BCG) dye binding methoOrdered By: Ashley Roberson on 09-28-2023 Albumin BCG dye [Mass/Vol] 4.8 g/dL 3.5-5.7 [facility] Alkaline phosphatase [Enzyma tic activity/volume] in Serum or PlasmaOrdered By: Ashley Roberson on 09-28-2023 ALP [Catalytic activity/Vol] 62 U/L 34-104 [facility] Aspartate aminotransferase [ Enzymatic activity/volume] in Serum or PlasmaOrdered By: Ashley Quinoneserik on 09-28-2023 AST [Catalytic activity/Vol] 15 U/L 13-39 [facility] Automated erythrocytes count in urine sediment (number/area)Ordered By: Ashley Quinoneserik on 09-28-2023 RBC Auto (Urine sed) [#/Area] 1-2 [HPF] 0-4 [facility] Automated leukocytes count i n urine sediment (number/area)Ordered By: Ashley Quinoneserik on 09-28-2023 WBC Auto (Urine sed) [#/Area] 20-49 [HPF] 0-4 [facility] Automated urine hyaline cast s count (number/volume)Ordered By: Ashley Quinoneserik on 09-28-2023 Hyaline casts Auto (U) [#/Vol] None seen [LPF] 0-1 [facility] Basophils Auto (Bld) [#/Vol] Ordered By: Ashley Quinoneserik on 09-28-2023 Basophils (Bld) [#/Vol] 0.1 10*3/uL 0.0-0.2 [facility] Basophils/100 WBC Auto (Bld) Ordered By: Ashley Saforlucy on 09-28-2023 Basophils/100 WBC (Bld) 0.4 % . [facility] Bilirubin Test strip Ql (U)O rdered By: Ashley Jonierik on 09-28-2023 Bilirubin Ql (U) Negative Negative [facility] Bilirubin.total [Mass/volume ] in Serum or PlasmaOrdered By: Ashley Jonierik on 09-28-2023 Bilirubin [Mass/Vol] 1.2 mg/dL 0.3-1.0 [facility] COVID CepheidOrdered By: Cou nancy Jonierik on 09-28-2023 SARS-CoV-2 (COVID-19) Ab IA Ql Negative Negative [facility] Comment on above: This is a duplicate [employer] Xpert Xpress CoV-2/Flu/RSV Plus RNA by RT-PCR result to be used for statistical tracking purpose only. SARS-CoV-2 (COVID-19) RNA OMAIRA+probe Ql (Unsp spec) [facility] Calcium [Mass/volume] in Ser um or PlasmaOrdered By: Ashley Roberson on 09-28-2023 Calcium [Mass/Vol] 10.1 mg/dL 8.6-10.3 [facility] Carbon dioxide, total [Moles /volume] in Serum or PlasmaOrdered By: Ashley Roberson on 09-28-2023 CO2 [Moles/Vol] 25.4 mmol/L 21.0-31.0 [facility] Chloride [Moles/volume] in S isabel or PlasmaOrdered By: Ashley Roberson on 09-28-2023 Chloride [Moles/Vol] 99 mmol/L 98-107 [facility] Color Auto (U)Ordered By: Sheng Roberson on 09-28-2023 Color (U) Dark yellow Yellow [facility] Creatinine [Mass/volume] in Serum or PlasmaOrdered By: Ashley Roberson on 09-28-2023 Creatinine [Mass/Vol] 0.62 mg/dL 0.60-1.20 [facility] Eosinophils Auto (Bld) [#/Vo l]Ordered By: Ashley Roberson on 09-28-2023 Eosinophils (Bld) [#/Vol] 0.2 10*3/uL 0.0-0.45 [facility] Eosinophils/100 WBC Auto (Bl d)Ordered By: Ashley Roberson on 09-28-2023 Eosinophils/100 WBC (Bld) 1.3 % . [facility] Erythrocyte distribution wid th Auto (RBC) [Ratio]Ordered By: Ashley Roberson on 09-28-2023 Erythrocyte distribution width (RBC) [Ratio] 13.8 % 11.9-15.3 [facility] Fibrin D-dimer [Presence] in Platelet poor plasma by Latex agglutinationOrdered By: Ashley Roberson on 09-28-2023 Fibrin D-dimer LA Ql (PPP) < 200 ng/mL 0-243 [facility] Comment on above: The reference range [...] coagulation studies. Please contact the laboratory at [phone] for redraw instructions. Globulin Calc (S) [Mass/Vol] Ordered By: Ashley Roberson on 09-28-2023 Globulin (S) [Mass/Vol] 3.3 g/dL [facility] Glucose Glucometer (BldC) [M ass/Vol]Ordered By: Ashley Roberson on 09-28-2023 Glucose [Mass/Vol] 113 mg/dL [facility] Comment on above: Random Glucose Refer ence Range is dependent on time and content of last meal. Glucose of more than 200 mg/dL in a nonstressed, ambulatory subject supports the diagnosis of Diabetes Mellitus. Glucose [Mass/volume] in Ser um or PlasmaOrdered By: Ashley Roberson on 09-28-2023 Glucose [Mass/Vol] 59 mg/dL 70-100 [facility] Comment on above: ADA recommended refe rence rangeRandom Glucose Reference Range is dependent on time and content of last meal. Glucose of more than 200 mg/dL in a nonstressed, ambulatory subject supports the diagnosis of Diabetes Mellitus. HCG ( test) IA.rapi d Ql (U)Ordered By: Ashley Roberson on 09-28-2023 HCG ( test) Ql (U) Negative [facility] Hematocrit Auto (Bld) [Volum e fraction]Ordered By: Ashley Roberson on 09-28-2023 Hematocrit (Bld) [Volume fraction] 38.8 % 34.0-46.4 [facility] Hemoglobin [Mass/volume] in BloodOrdered By: Ashley Roberson 09-28-2023 Hemoglobin (Bld) [Mass/Vol] 13.4 g/dL 11.8-15.4 [facility] INR in Platelet poor plasma by Coagulation assayOrdered By: Ashley Roberson on 09-28-2023 INR Coag (PPP) [Relative time] 1.2 {INR} [facility] Comment on above: INR Therapeutic Rang [...] on 09-28-2023 Ketones (U) [Mass/Vol] 4+ Negative [facility] Leukocytes [#/volume] correc mihcael for nucleated erythrocytes in Blood by Automated counOrdered By: Ashley Roberson on 09-28-2023 WBC corrected for nucl RBC Auto (Bld) [#/Vol] 17.6 10*3/uL 3.8-11.6 [facility] Lipase [Enzymatic activity/v olume] in Serum or PlasmaOrdered By: Ashley Roberson on 09-28-2023 Lipase [Catalytic activity/Vol] 15.0 U/L 11.0-82.0 [facility] Lymphocytes Auto (Bld) [#/Vo l]Ordered By: Ashley Roberson on 09-28-2023 Lymphocytes (Bld) [#/Vol] 1.4 10*3/uL 1.00-4.8 [facility] Lymphocytes/100 WBC Auto (Bl d)Ordered By: Ashley Roberson on 09-28-2023 Lymphocytes/100 WBC (Bld) 8.2 % . [facility] MCH Auto (RBC) [Entitic mass ]Ordered By: Ashley Roberson on 09-28-2023 MCH (RBC) [Entitic mass] 29.5 pg 24.7-34.3 [facility] MCHC Auto (RBC) [Mass/Vol]Or dered By: Ashley Roberson on 09-28-2023 MCHC (RBC) [Mass/Vol] 34.6 g/dL 32.0-35.0 [facility] MCV Auto (RBC) [Entitic vol] Ordered By: Ashley Roberson on 09-28-2023 MCV (RBC) [Entitic vol] 85.4 fL 80-100 [facility] Monocyte distribution width [Entitic volume] in Blood by AutomatedOrdered By: Ashley Roberson on 09-28-2023 Monocyte distribution width Auto (Bld) [Entitic vol] 20.66 % 0.00-20.00 [facility] Comment on above: For adults in ED, MD W > 20.0 may be associated with a higher risk of sepsis during the first 12 hrs of hospital admission Monocytes Auto (Bld) [#/Vol] Ordered By: Ashley Roberson on 09-28-2023 Monocytes (Bld) [#/Vol] 0.7 10*3/uL 0.0-0.8 [facility] Monocytes/100 WBC Auto (Bld) Ordered By: Ashley Roberson on 09-28-2023 Monocytes/100 WBC (Bld) 4.2 % . [facility] Neutrophils Auto (Bld) [#/Vo l]Ordered By: Ashley Roberson on 09-28-2023 Neutrophils (Bld) [#/Vol] 15.1 10*3/uL 1.8-7.7 [facility] Neutrophils/100 WBC Auto (Bl d)Ordered By: Ashley Roberson on 09-28-2023 Neutrophils/100 WBC (Bld) 85.9 % . [facility] Nitrite Test strip Ql (U)Ord ered By: Ashley Roberson on 09-28-2023 Nitrite Ql (U) Negative Negative [facility] No Panel InformationOrdered By: Ashley Roberson on 09-28-2023 Bedside Glucose Comment See comment [facility] Comment on above: Glu2: WILL NOTIFY /RN Estimated GFR (CKD-EPI) > 60.0 mL/Min [facility] Creatinine Clearance (Chem 92.34 [facility] Nucleated erythrocytes [Pres ence] in Blood by Automated countOrdered By: Ashley Roberson on 09-28-2023 Nucleated RBC Auto Ql (Bld) 0.1 /100{WBC} 0-0.5 [facility] Platelet mean volume Auto (B ld) [Entitic vol]Ordered By: Ashley Roberson on 09-28-2023 Platelet mean volume (Bld) [Entitic vol] 8.0 fL 6.3-10.7 [facility] Platelets Auto (Bld) [#/Vol] Ordered By: Ashley Roberson on 09-28-2023 Platelets (Bld) [#/Vol] 377 10*3/uL 150-450 [facility] Potassium [Moles/volume] in Serum or PlasmaOrdered By: Ashley Roberson on 09-28-2023 Potassium [Moles/Vol] 3.8 mmol/L 3.5-5.1 [facility] Protein Auto test strip (U) [Mass/Vol]Ordered By: Ashley Roberson on 09-28-2023 Protein (U) [Mass/Vol] 30 mg/dL Negative [facility] Protein [Mass/volume] in Ser um or PlasmaOrdered By: Ashley Roberson on 09-28-2023 Protein [Mass/Vol] 8.1 g/dL 6.4-8.9 [facility] Prothrombin time (PT)Ordered By: Ashley Roberson on 09-28-2023 PT Coag (PPP) [Time] 13.8 s 9.0-12.9 [facility] Comment on above: A hematocrit value g reater than 55% may lead to inaccurate results in coagulation testing. Patients having hematocrit values >55% require a special collection tube for coagulation studies. Please contact the laboratory at [phone] for redraw instructions. RBC Auto (Bld) [#/Vol]Ordere d By: Ashley Rboerson on 09-28-2023 RBC (Bld) [#/Vol] 4.55 10*6/uL 3.60-5.00 [facility] Serum or plasma albumin/glob ulin mass ratioOrdered By: Ashley Roberson on 09-28-2023 Albumin/Globulin [Mass ratio] 1.5 {ratio} [facility] Serum or plasma anion gap de terminationOrdered By: Ashley Roberson on 09-28-2023 Anion gap [Moles/Vol] 18.4 mmol/L 6.0-15.0 [facility] Sodium [Moles/volume] in Ser um or PlasmaOrdered By: Ashley Roberson on 09-28-2023 Sodium [Moles/Vol] 139 mmol/L 136-145 [facility] Specific gravity Auto test s trip (U) [Rel density]Ordered By: Ashley Roberson on 09-28-2023 Specific gravity (U) [Rel density] 1.030 1.001-1.03 0 [facility] Squamous epithelial cells de tection in urine sediment by light microscopyOrdered By: Ashley Roberson on 09-28-2023 Epithelial cells.squamous LM Ql (Urine sed) 3-4 [HPF] 0-2 [facility] Troponin I.cardiac [Mass/vol ume] in Serum or Plasma by Detection limit <= 0.01 ng/Ordered By: Ashley Roberson on 09-28-2023 Troponin I.cardiac DL <= 0.01 ng/mL [Mass/Vol] 3.3 pg/mL 0.0-15.0 [facility] Urea nitrogen [Mass/volume] in Serum or PlasmaOrdered By: Ashley Roberson on 09-28-2023 Urea nitrogen [Mass/Vol] 12 mg/dL 7-25 [facility] Urine bacteria detection by automated methodOrdered By: Ashley Roberson on 09-28-2023 Bacteria Auto Ql (U) None seen None Seen [facility] Urine clarity by refractomet ry automatedOrdered By: Ashley Roberson on 09-28-2023 Clarity Refractometry automated (U) Clear Clear [facility] Urine culture routineOrdered By: Ashley Roberson on 09-28-2023 Bacteria identified Cx Nom (U) Strep agalactiae - (group b) [facility] Urine glucose measurement by automated test strip (mass/volume)Ordered By: Ashley Roberson on 09-28-2023 Glucose Auto test strip (U) [Mass/Vol] Normal mg/dL Normal [facility] Urine hemoglobin detection b y automated test stripOrdered By: Ashley Roberson on 09-28-2023 Hemoglobin Auto test strip Ql (U) Negative Negative [facility] Urine leukocyte esterase det ection by automated test stripOrdered By: Ashley Roberson on 09-28-2023 Leukocyte esterase Auto test strip Ql (U) 3+ Negative [facility] Urobilinogen Auto test strip (U) [Mass/Vol]Ordered By: Ashley Roberson on 09-28-2023 Urobilinogen (U) [Mass/Vol] Normal mg/dL Normal [facility] WBC Auto (Bld) [#/Vol]Ordere d By: Ashley Roberson on 09-28-2023 WBC (Bld) [#/Vol] 17.6 10*3/uL 3.8-11.6 [facility] pH Auto test strip (U)Ordere d By: Ashley Roberson on 09-28-2023 pH (U) 6.0 [pH] 5.0-9.0 [facility] Amphetamine Screen Ql (U)Ord ered By: Jordi Seals on 09-10-2023 Amphetamines Ql (U) Negative Negative [facility] Barbiturates [Presence] in U rine by Screen methodOrdered By: Jordi Seals on 09-10-2023 Barbiturates Screen Ql (U) Negative Negative [facility] Benzodiazepines Screen Ql (U )Ordered By: Jordi Seals on 09-10-2023 Benzodiazepines Ql (U) Negative Negative [facility] Benzoylecgonine [Presence] i n Urine by Screen methodOrdered By: Jordi Seals on 09-10-2023 Benzoylecgonine Screen Ql (U) Negative Negative [facility] Cannabinoids [Presence] in U rine by Screen methodOrdered By: Jordi Asaad on 09-10-2023 Cannabinoids Screen Ql (U) Positive Negative [facility] Comment on above: These are unconfirme d results and should not be used for legal purposes. Drug Cut-Off Concentration: AMPH 1000 ng/mL VENKATA 200 ng/mL BREANNA 200 ng/mL COCM 300 ng/mL OP 300 ng/mL PCP 25 ng/mL THC 20 ng/mL HCG ( test) IA.rapi d Ql (U)Ordered By: Jordi Seals on 09-10-2023 HCG ( test) Ql (U) Negative [facility] Opiates [Presence] in Urine by Screen methodOrdered By: Jordi Seals on 09-10-2023 Opiates Screen Ql (U) Negative Negative [facility] Phencyclidine Screen Ql (U)O rdered By: Imad Asacher on 09-10-2023 Phencyclidine Ql (U) Negative Negative [facility] HCG ( test) IA.rapi d Ql (U)Ordered By: Imad Asaad on 06-03-2023 HCG ( test) Ql (U) Negative [facility] C reactive protein [Mass/vol ume] in Serum or PlasmaOrdered By: Imcher Seals on 05-08-2023 CRP [Mass/Vol] < 0.5 mg/dL 0.0-0.5 [facility] Calprotectin [Mass/mass] in StoolOrdered By: Jordi Seals on 05-08-2023 Calprotectin (Stl) [Mass/Mass] <5 ug/g 0-120 [facility] Comment on above: Concentration Interp retation Follow-Up< 5 - 50 ug/g Normal None>50 -120 ug/g Borderline Re-evaluate in 4-6 weeks >120 ug/g Abnormal Repeat as clinically indicatedPerformed at: [facility] [id number] [id number] Director: Joseph Tang MD, Phone: [phone] Clostridioides difficile tox in B tcdB gene [Presence] in Stool by OMAIRA with probe deteOrdered By: Jordi Seals on 05-08-2023 C. difficile toxin B tcdB gene OMAIRA+probe Ql (Stl) Negative Negative [facility] Comment on above: Testing performed by RT-PCR Elastase.pancreatic [Mass/ma ss] in StoolOrdered By: Jordi Seals on 05-08-2023 Elastase.pancreatic (Stl) [Mass/Mass] 284 >200 [facility] Comment on above: Result Units: ug Bambi st./g Severe Pancreatic Insufficiency: <100 Moderate Pancreatic Insufficiency: 100 - 200 Normal: >200Performed at: [facility] [id number] [id number] Director: Joseph Tang MD, Phone: [phone] Erythrocyte sedimentation ra te by Photometric methodOrdered By: Jordi Seals on 05-08-2023 ESR Photometric method (Bld) [Velocity] 3 mm/hr 0-19 [facility] HIV 1 and HIV-2 antibody ass ay with HIV-1 p24 antigen detectionOrdered By: Jordi Seals on 05-08-2023 HIV 1+2 Ab+HIV1 p24 Ag IA Ql Non-Reactive Non Reactive [facility] Comment on above: HIV NegativeHIV-1/HI V-2 antibodies and HIV-1 p24 antigen were NOTdetected. There is no laboratory evidence of HIV infection.Performed at: [facility] [address] [id number] Director: Mendel Rubin PhD, Phone: [phone] IgA [Mass/volume] in Serum o r PlasmaOrdered By: Jordi Seals on 05-08-2023 IgA [Mass/Vol] 260 mg/dL 87-352 [facility] Comment on above: Performed at: [facility] [address] [id number] Director: Mendel Rubin PhD, Phone: [phone] No Panel InformationOrdered By: Jordi Seals on 05-08-2023 Endomysial IgA Antibody Negative Negative [facility] Ova and Parasite Result 1 N/A [facility] Ova and Parasite Result 1 [facility] Ova or parasites identificat ionOrdered By: Jordi Seals on 05-08-2023 Ova and parasites identified LM Nom (Unsp spec) N/A [facility] Ova and parasites identified LM Nom (Unsp spec) [facility] Serum gliadin peptide IgA an tibody assay (units/volume)Ordered By: Jordi Seals on 05-08-2023 Gliadin peptide IgA Qn (S) 6 units 0-19 [facility] Comment on above: Negative 0 - 19 Weak Positive 20 - 30 Moderate to Strong Positive >30 Serum gliadin peptide IgG an tibody assay (units/volume)Ordered By: Jordi Seals on 05-08-2023 Gliadin peptide IgG Qn (S) 3 units 0-19 [facility] Comment on above: Negative 0 - 19 Weak Positive 20 - 30 Moderate to Strong Positive >30 Serum tissue transglutaminas e (tTG) IgA antibody assay (units/volume)Ordered By: cher Monte on 05-08-2023 tTG IgA Qn (S) <2 U/mL 0-3 [facility] Comment on above: Negative 0 - 3 Weak Positive 4 - 10 Positive >10 Tissue Transglutaminase (tTG) has been identified as the endomysial antigen. Studies have demonstr- ated that endomysial IgA antibodies have over 99% specificity for gluten sensitive enteropathy. Serum tissue transglutaminas e (tTG) IgG antibody assay (units/volume)Ordered By: [facility] on 05-08-2023 tTG IgG Qn (S) <2 U/mL 0-5 [facility] Comment on above: Negative 0 - 5 Weak Positive 6 - 9 Positive >9 Stool ova and parasites iden tification by concentrationOrdered By: [facility] on 05-08-2023 Ova and parasites identified Concentration Nom (Stl) N/A [facility] Stool ova and parasites iden tification by trichrome stainOrdered By: [facility] on 05-08-2023 Ova and parasites identified Trichrome stain Nom ([facility]) N/A [facility] Thyrotropin [Units/volume] i n Serum or PlasmaOrdered By: cher [facility] on 05-08-2023 TSH Qn 0.49 m[IU]/L 0.45-5.33 [facility] Alanine aminotransferase [En zymatic activity/volume] in Serum or PlasmaOrdered By: Vivian Tejadaimdebra on 12-29-2022 ALT [Catalytic activity/Vol] 9 U/L 7-52 [facility] Albumin [Mass/volume] in Ser um or Plasma by Bromocresol green (BCG) dye binding methoOrdered By: Vivian Bullimore on 12-29-2022 Albumin BCG dye [Mass/Vol] 4.9 g/dL 3.5-5.7 [facility] Alkaline phosphatase [Enzyma tic activity/volume] in Serum or PlasmaOrdered By: Vivian Bullimore on 12-29-2022 ALP [Catalytic activity/Vol] 60 U/L 34-104 [facility] Aspartate aminotransferase [ Enzymatic activity/volume] in Serum or PlasmaOrdered By: Vivian Bullimore on 12-29-2022 AST [Catalytic activity/Vol] 14 U/L 13-39 [facility] Automated erythrocytes count in urine sediment (number/area)Ordered By: Vivian Bullimore on 12-29-2022 RBC Auto (Urine sed) [#/Area] 1-2 [HPF] 0-4 [facility] Automated leukocytes count i n urine sediment (number/area)Ordered By: Vivian Bullimore on 12-29-2022 WBC Auto (Urine sed) [#/Area] 20-49 [HPF] 0-4 [facility] Automated urine hyaline cast s count (number/volume)Ordered By: Vivian Bullimore on 12-29-2022 Hyaline casts Auto (U) [#/Vol] 10-19 [LPF] 0-1 [facility] Basophils Auto (Bld) [#/Vol] Ordered By: Vivian Bullimore on 12-29-2022 Basophils (Bld) [#/Vol] 0.0 10*3/uL 0.0-0.2 [facility] Basophils/100 WBC Auto (Bld) Ordered By: Vivian Bullimore on 12-29-2022 Basophils/100 WBC (Bld) 0.4 % . [facility] Bilirubin Test strip Ql (U)O rdered By: Vivian Tejadaimore on 12-29-2022 Bilirubin Ql (U) Negative Negative [facility] Bilirubin.total [Mass/volume ] in Serum or PlasmaOrdered By: Vivian Bullimore on 12-29-2022 Bilirubin [Mass/Vol] 0.6 mg/dL 0.3-1.0 [facility] C reactive protein [Mass/vol ume] in Serum or PlasmaOrdered By: Vivian Bullimore on 12-29-2022 CRP [Mass/Vol] 3.1 mg/dL 0.0-0.5 [facility] Calcium [Mass/volume] in Ser um or PlasmaOrdered By: Vivian Bullimore on 12-29-2022 Calcium [Mass/Vol] 10.0 mg/dL 8.6-10.3 [facility] Carbon dioxide, total [Moles /volume] in Serum or PlasmaOrdered By: Vivian Nieto on 12-29-2022 CO2 [Moles/Vol] 26.6 mmol/L 21.0-31.0 [facility] Casts typing in urine sedime nt by light microscopyOrdered By: PROVIDER TEMP on 12-29-2022 Casts LM Nom (Urine sed) N/A [facility] Chloride [Moles/volume] in S isabel or PlasmaOrdered By: Vivian Bullimore on 12-29-2022 Chloride [Moles/Vol] 103 mmol/L 98-107 [facility] Color Auto (U)Ordered By: Radha Nieto on 12-29-2022 Color (U) Dark yellow Yellow [facility] Creatinine [Mass/volume] in Serum or PlasmaOrdered By: Vivian Tejadaimdebra on 12-29-2022 Creatinine [Mass/Vol] 0.55 mg/dL 0.60-1.20 [facility] Eosinophils Auto (Bld) [#/Vo l]Ordered By: Vivian Tejadaimore on 12-29-2022 Eosinophils (Bld) [#/Vol] 0.3 10*3/uL 0.0-0.45 [facility] Eosinophils/100 WBC Auto (Bl d)Ordered By: Vivian Tejadaimore on 12-29-2022 Eosinophils/100 WBC (Bld) 3.2 % . [facility] Erythrocyte distribution wid th Auto (RBC) [Ratio]Ordered By: Vivian Nieto on 12-29-2022 Erythrocyte distribution width (RBC) [Ratio] 14.9 % 11.9-15.3 [facility] Erythrocyte sedimentation ra te by Photometric methodOrdered By: Vivian Nieto on 12-29-2022 ESR Photometric method (Bld) [Velocity] 21 mm/hr 0-19 [facility] Globulin Calc (S) [Mass/Vol] Ordered By: Vivian Bullimore on 12-29-2022 Globulin (S) [Mass/Vol] 3.3 g/dL [facility] Glucose [Mass/volume] in Ser um or PlasmaOrdered By: Vivian Bullimore on 12-29-2022 Glucose [Mass/Vol] 75 mg/dL 70-100 [facility] Comment on above: ADA recommended refe rence rangeRandom Glucose Reference Range is dependent on time and content of last meal. Glucose of more than 200 mg/dL in a nonstressed, ambulatory subject supports the diagnosis of Diabetes Mellitus. HCG ( test) IA.rapi d Ql (U)Ordered By: PROVIDER TEMP on 12-29-2022 HCG ( test) Ql (U) Negative [facility] Hematocrit Auto (Bld) [Volum e fraction]Ordered By: Vivian Nieto on 12-29-2022 Hematocrit (Bld) [Volume fraction] 39.6 % 34.0-46.4 [facility] Hemoglobin [Mass/volume] in BloodOrdered By: Vivian Nieto on 12-29-2022 Hemoglobin (Bld) [Mass/Vol] 13.2 g/dL 11.8-15.4 [facility] Ketones Auto test strip (U) [Mass/Vol]Ordered By: Vivian Nieto on 12-29-2022 Ketones (U) [Mass/Vol] 3+ Negative [facility] Leukocytes [#/volume] correc michael for nucleated erythrocytes in Blood by Automated counOrdered By: Vivian Nieto on 12-29-2022 WBC corrected for nucl RBC Auto (Bld) [#/Vol] 9.8 10*3/uL 3.8-11.6 [facility] Lymphocytes Auto (Bld) [#/Vo l]Ordered By: Vivian Nieto on 12-29-2022 Lymphocytes (Bld) [#/Vol] 1.2 10*3/uL 1.00-4.8 [facility] Lymphocytes/100 WBC Auto (Bl d)Ordered By: Vivian Nieto on 12-29-2022 Lymphocytes/100 WBC (Bld) 11.9 % . [facility] MCH Auto (RBC) [Entitic mass ]Ordered By: Vivian Nieto on 12-29-2022 MCH (RBC) [Entitic mass] 27.5 pg 24.7-34.3 [facility] MCHC Auto (RBC) [Mass/Vol]Or dered By: Vivian Nieto on 12-29-2022 MCHC (RBC) [Mass/Vol] 33.3 g/dL 32.0-35.0 [facility] MCV Auto (RBC) [Entitic vol] Ordered By: Vivian Bullimore on 12-29-2022 MCV (RBC) [Entitic vol] 82.6 fL 80-100 [facility] Monocytes Auto (Bld) [#/Vol] Ordered By: Vivian Bullimore on 12-29-2022 Monocytes (Bld) [#/Vol] 0.5 10*3/uL 0.0-0.8 [facility] Monocytes/100 WBC Auto (Bld) Ordered By: Vivian Bullimore on 12-29-2022 Monocytes/100 WBC (Bld) 5.1 % . [facility] Neutrophils Auto (Bld) [#/Vo l]Ordered By: Vivian Bullimore on 12-29-2022 Neutrophils (Bld) [#/Vol] 7.8 10*3/uL 1.8-7.7 [facility] Neutrophils/100 WBC Auto (Bl d)Ordered By: Vivian Bullimore on 12-29-2022 Neutrophils/100 WBC (Bld) 79.4 % . [facility] Nitrite Test strip Ql (U)Ord ered By: Vivian Tejadaimdebra on 12-29-2022 Nitrite Ql (U) Negative Negative [facility] No Panel InformationOrdered By: Vivian Nieto on 12-29-2022 Estimated GFR (CKD-EPI) > 60.0 mL/Min [facility] Creatinine Clearance (Chem 123.12 [facility] Nucleated erythrocytes [Pres ence] in Blood by Automated countOrdered By: Vivian Tejadaimore on 12-29-2022 Nucleated RBC Auto Ql (Bld) 0.1 /100{WBC} 0-0.5 [facility] Platelet mean volume Auto (B ld) [Entitic vol]Ordered By: Vivian Bullimore on 12-29-2022 Platelet mean volume (Bld) [Entitic vol] 7.7 fL 6.3-10.7 [facility] Platelets Auto (Bld) [#/Vol] Ordered By: Vivian Bullimore on 12-29-2022 Platelets (Bld) [#/Vol] 305 10*3/uL 150-450 [facility] Potassium [Moles/volume] in Serum or PlasmaOrdered By: Vivian Bullimore on 12-29-2022 Potassium [Moles/Vol] 3.6 mmol/L 3.5-5.1 [facility] Protein Auto test strip (U) [Mass/Vol]Ordered By: Vivian Bullimore on 12-29-2022 Protein (U) [Mass/Vol] 30 mg/dL Negative [facility] Protein [Mass/volume] in Ser um or PlasmaOrdered By: Vivian Bullimore on 12-29-2022 Protein [Mass/Vol] 8.2 g/dL 6.4-8.9 [facility] RBC Auto (Bld) [#/Vol]Ordere d By: Vivian Bullimore on 12-29-2022 RBC (Bld) [#/Vol] 4.79 10*6/uL 3.60-5.00 [facility] Serum or plasma albumin/glob ulin mass ratioOrdered By: Vivian Bullimore on 12-29-2022 Albumin/Globulin [Mass ratio] 1.5 {ratio} [facility] Serum or plasma anion gap de terminationOrdered By: Vivian Bullimore on 12-29-2022 Anion gap [Moles/Vol] 14.0 mmol/L 6.0-15.0 [facility] Sodium [Moles/volume] in Ser um or PlasmaOrdered By: Vivian Bullimore on 12-29-2022 Sodium [Moles/Vol] 140 mmol/L 136-145 [facility] Specific gravity Auto test s trip (U) [Rel density]Ordered By: Vivian Bullimore on 12-29-2022 Specific gravity (U) [Rel density] 1.030 1.001-1.03 0 [facility] Squamous epithelial cells de tection in urine sediment by light microscopyOrdered By: Vivian Bullimore on 12-29-2022 Epithelial cells.squamous LM Ql (Urine sed) 10-19 [HPF] 0-2 [facility] Urea nitrogen [Mass/volume] in Serum or PlasmaOrdered By: Vivian Nieto on 12-29-2022 Urea nitrogen [Mass/Vol] 7 mg/dL 7-25 [facility] Urine bacteria detection by automated methodOrdered By: Vivian Nieto on 12-29-2022 Bacteria Auto Ql (U) None seen None Seen [facility] Urine clarity by refractomet ry automatedOrdered By: Vivian Nieto on 12-29-2022 Clarity Refractometry automated (U) Cloudy Clear [facility] Urine glucose measurement by automated test strip (mass/volume)Ordered By: Vivian Nieto on 12-29-2022 Glucose Auto test strip (U) [Mass/Vol] Normal mg/dL Normal [facility] Urine hemoglobin detection b y automated test stripOrdered By: Vivian Nieto on 12-29-2022 Hemoglobin Auto test strip Ql (U) Negative Negative [facility] Urine leukocyte esterase det ection by automated test stripOrdered By: Vivian Nieto on 12-29-2022 Leukocyte esterase Auto test strip Ql (U) 2+ Negative [facility] Urobilinogen Auto test strip (U) [Mass/Vol]Ordered By: Vivian Nieto on 12-29-2022 Urobilinogen (U) [Mass/Vol] Normal mg/dL Normal [facility] WBC Auto (Bld) [#/Vol]Ordere d By: Vivian Nieto on 12-29-2022 WBC (Bld) [#/Vol] 9.8 10*3/uL 3.8-11.6 [facility] pH Auto test strip (U)Ordere d By: Vivian Nieto on 12-29-2022 pH (U) 6.5 [pH] 5.0-9.0 [facility] Physician Referralon 023 Physician Referral [id number] Normal [facility] Ambulatory Visit Summaryon 0 11-06-2022 Ambulatory [...] Appointments Follow Up with Kayy Fontana MD, [facility], MED When: Only if needed Where: [address] [place] [phone] Someone Will Contact You Regarding These Appointments [facility] External Ambulatory Referral, Gastroenterology, 11/06/22 14:38:00 EST, Abdominal pain Normal [facility] Family Medicine Office/Clini c Noteon 11-06-2022 [...] a 22 Years White Female [facility] with [facility] issues for long [...] pain (R10.9: Unspecified abdominal pain) referral to [facility] GI placed since [facility] unable to get her in for a couple months keep food and symptom journal avoid trigger foods Ordered: [facility] External Ambulatory Referral 2. Diarrhea (R19.7: Diarrhea, unspecified) referral to [facility] GI placed since [facility] unable to get her in for a couple months keep food and symptom journal avoid trigger foods Ordered: [facility] External Ambulatory Referral Follow-up With When Contact Information Kayy Fontana MD, [facility], MED Only if needed [address] [place] [address]- [phone] Additional Instructions: Problem List/Past Medical History Ongoing [...] vac - Not Given Patient Refuses Normal [facility] Comment on above: Result Comment: Elec tronically Signed By: Kayy Fontana MD\.br\Date and Time Signed: 11/06/22 14:45 EST Provider Letteron 11-06-2022 Provider Letter (Inserted Image. Trish ble to display) November 06, 2022 DAWN MAJOR [address] [place] [address] [place] [address] DAWN MAJOR T 2000 To Whom It May Concern, Please excuse above patient from work today, 11/06/22. Sincerely, Kayy Fontana MD [facility] Normal [facility] CBC AUTO DIFFon 07-24-2022 BASO # 0.1 103/ul Normal 0.0-0.1 [facility] Comment on above: Performed By: #### C BC #### [facility] [address] [address] [address] Mariela Larkin Basophils/100 WBC (Bld) 0.4 % Normal 0.2-2.0 [facility] Comment on above: Performed By: #### C BC #### [facility] [address] [place] [address] Dr. Mariela Larkin EO # 0.3 103/ul Normal 0.0-0.7 [facility] Comment on above: Performed By: #### C BC #### [facility] [address] [place] [address] Dr. Mariela Larkin Eosinophils/100 WBC (Bld) 2.2 % Normal 0.9-7.0 [facility] Comment on above: Performed By: #### C BC #### [facility] [address] [place] [address] Dr. Mariela Larkin Erythrocyte distribution width (RBC) [Ratio] 16.8 % Critically high 11.0-15.0 [facility] Comment on above: Performed By: #### C BC #### [facility] [address] [place] [address] Dr. Mariela Larkin Hematocrit (Bld) [Volume fraction] 30.4 % Critically low 36.0-48.0 [facility] Comment on above: Performed By: #### C BC #### [facility] [address] [place] [address] Dr. Mariela Larkin Hemoglobin (Bld) [Mass/Vol] 10.0 g/dL Critically low 12.0-16.0 [facility] Comment on above: Performed By: #### C BC #### [facility] [address] [place] [address] Dr. Mariela Larkin IG # 0.13 10e3/ul Critically high 0.00-0.03 [facility] Comment on above: Performed By: #### C BC #### [facility] [address] [place] [address] Dr. Mariela Larkin IG % 0.9 % Critically high 0.0-0.5 [facility] Comment on above: Performed By: #### C BC #### [facility] [address] [place] [address] Dr. Mariela Larkin LYMPH # 3.1 103/ul Normal 1.2-3.8 [facility] Comment on above: Performed By: #### C BC #### [facility] [address] [place] [address] Dr. Mariela Larkin Lymphocytes/100 WBC (Bld) 22.4 % Normal 20.5-60.0 [facility] Comment on above: Performed By: #### C BC #### [facility] [address] [place] [address] Dr. Mariela Larkin MANUAL DIFF REQ NO Normal [facility] Comment on above: Performed By: #### C BC #### [facility] [address] [place] [address] Dr. Mariela Larkin MCH (RBC) [Entitic mass] 27.0 pg Normal 26.7-34.0 [facility] Comment on above: Performed By: #### C BC #### [facility] [address] [place] [address] Dr. Mariela Larkin MCHC (RBC) [Mass/Vol] 32.9 g/dL Normal 29.9-35.2 [facility] Comment on above: Performed By: #### C BC #### [facility] [address] [place] [address] Dr. Mariela Larkin MCV (RBC) [Entitic vol] 82.2 fL Normal 81.0-99.0 [facility] Comment on above: Performed By: #### C BC #### [facility] [address] [place] [address] Dr. Mariela Larkin MONO # 0.7 103/ul Normal 0.3-0.8 [facility] Comment on above: Performed By: #### C BC #### [facility] [address] [place] [address] Dr. Mariela Larkin Monocytes/100 WBC (Bld) 5.1 % Normal 1.7-12.0 [facility] Comment on above: Performed By: #### C BC #### [facility] [address] [place] [address] Dr. Mariela Larkin NEUT # 9.6 103/ul Critically high 1.4-6.5 [facility] Comment on above: Performed By: #### C BC #### [facility] [address] [place] [address] Dr. Mariela Larkin Neutrophils/100 WBC (Bld) 69.0 % Normal 43.0-75.0 [facility] Comment on above: Performed By: #### C BC #### [facility] [address] [place] [address] Dr. Mairela Larkin Platelet mean volume (Bld) [Entitic vol] 9.4 fL Critically low 9.5-13.5 [facility] Comment on above: Performed By: #### C BC #### [facility] [address] [place] [address] Dr. Mariela Larkin PLT 243 103/ul Normal 150-450 [facility] Comment on above: Performed By: #### C BC #### [facility] [address] [place] [address] Dr. Mariela Larkin RBC 3.70 106/ul Critically low 4.20-5.40 [facility] Comment on above: Performed By: #### C BC #### [facility] [address] [place] [address] Dr. Mariela Larkin WBC 13.9 103/ul Critically high 4.0-11.0 [facility] Comment on above: Performed By: #### C BC #### [facility] [address] [place] [address] Dr. Mariela Larkin Covid-19 PCR ([facility])on 07-10 SARS-CoV-2 (COVID-19) RNA OMAIRA+probe Ql (Unsp spec) Not detected Normal NOT DETECTED [facility] Comment on above: Result Comment: When [...] for this test is supported by the Iridologist of Health and Human Service's declaration that [...] used). Performed By: #### C VDTBH #### [facility] [address] [place] [address] Dr. Mariela Larkin DIRECT COOMBSon 07-23-2022 DIRECT AYANNA Negative Normal [facility] Comment on above: Performed By: #### D IRCMB #### [facility] [address] [place] [address] Dr. Mariela Larkin DRUG SCREEN RAPID (URINE)on 07-23-2022 AMP Negative Normal NEGATIVE [facility] Comment on above: Performed By: #### A FPMAT #### [facility] [address] [place] [address] Dr. Mariela Larkin BAR Negative Normal NEGATIVE [facility] Comment on above: Performed By: #### A FPMAT #### [facility] [address] [place] [address] Dr. Mariela Larkin BUP Negative Normal NEGATIVE [facility] Comment on above: Performed By: #### A FPMAT #### [facility] [address] [place] [address] Dr. Mariela Larkin BZO Negative Normal NEGATIVE [facility] Comment on above: Performed By: #### A FPMAT #### [facility] [address] [place] [address] Dr. Mariela Larkin CECIL Negative Normal NEGATIVE [facility] Comment on above: Performed By: #### A FPMAT #### [facility] [address] [place] [address] Dr. Mariela Larkin CUT-OFFS SEE BELOW Normal [facility] Comment on above: Result Comment: AMP [...] ng/mL Performed By: #### A FPMAT #### [facility] [address] [place] [address] Dr. Mariela Larkin DRUG CUT HEADER DRUG CLASS TEST SYST EM CUT-OFF CONCENTRATIONS ARE FOLLOWS: Normal [facility] Comment on above: Performed By: #### A FPMAT #### [facility] [address] [place] [address] Dr. Mariela Larkin mAMP Negative Normal NEGATIVE [facility] Comment on above: Performed By: #### A FPMAT #### [facility] [address] [place] [address] Dr. Mariela Larkin MTD Negative Normal NEGATIVE [facility] Comment on above: Performed By: #### A FPMAT #### [facility] [address] [place] [address] Dr. Mariela Larkin OPI Negative Normal NEGATIVE [facility] Comment on above: Performed By: #### A FPMAT #### [facility] [address] [place] [address] Dr. Mariela Larkin OXY Negative Normal NEGATIVE [facility] Comment on above: Performed By: #### A FPMAT #### [facility] [address] [place] [address] Dr. Mariela Larkin PCP Negative Normal NEGATIVE [facility] Comment on above: Performed By: #### A FPMAT #### [facility] [address] [place] [address] Dr. Mariela Larkin PPX Negative Normal NEGATIVE [facility] Comment on above: Performed By: #### A FPMAT #### [facility] [address] [place] [address] Dr. Mariela Larkin TCA Negative Normal NEGATIVE [facility] Comment on above: Performed By: #### A FPMAT #### [facility] [address] [place] [address] Dr. Mariela Larkin THC Positive Abnormal NEGATIVE [facility] Comment on above: Performed By: #### A FPMAT #### [facility] [address] [place] [address] Dr. Mariela Larkin TYPE AND SCREENon 07-23-2022 TYPE AND SCREEN Antibody Screen NEGA TIVE Blood Bank Notes orignal specimen hemolyzed, repeat testing performed on redraw. Hemolysis Blood Bank Notes could cause false positive reaction. ABO Rh Typing AB Rh Positive Normal [facility] Comment on above: Performed By: #### C VDTBH #### [facility] [address] [place] [address] Dr. Mariela Larkin CBC AUTO DIFFon 07-22-2022 BASO # 0.0 103/ul Normal 0.0-0.1 [facility] Comment on above: Performed By: #### C BC #### [facility] [address] [place] [address] Dr. Mariela Larkin Basophils/100 WBC (Bld) 0.2 % Normal 0.2-2.0 [facility] Comment on above: Performed By: #### C BC #### [facility] [address] [place] [address] Dr. Mariela Larkin EO # 0.2 103/ul Normal 0.0-0.7 [facility] Comment on above: Performed By: #### C BC #### [facility] [address] [place] [address] Dr. Mariela Larkin Eosinophils/100 WBC (Bld) 1.0 % Normal 0.9-7.0 [facility] Comment on above: Performed By: #### C BC #### [facility] [address] [place] [address] Dr. Mariela Larkin Erythrocyte distribution width (RBC) [Ratio] 16.3 % Critically high 11.0-15.0 [facility] Comment on above: Performed By: #### C BC #### [facility] [address] [place] [address] Dr. Mariela Larkin Hematocrit (Bld) [Volume fraction] 34.0 % Critically low 36.0-48.0 [facility] Comment on above: Performed By: #### C BC #### [facility] [address] [place] [address] Dr. Mariela Larkin Hemoglobin (Bld) [Mass/Vol] 11.0 g/dL Critically low 12.0-16.0 [facility] Comment on above: Performed By: #### C BC #### [facility] [address] [place] [address] Dr. Mariela Larkin IG # 0.14 10e3/ul Critically high 0.00-0.03 [facility] Comment on above: Performed By: #### C BC #### [facility] [address] [place] [address] Dr. Mariela Larkin IG % 0.9 % Critically high 0.0-0.5 [facility] Comment on above: Performed By: #### C BC #### [facility] [address] [place] [address] Dr. Mariela Larkin LYMPH # 2.5 103/ul Normal 1.2-3.8 [facility] Comment on above: Performed By: #### C BC #### [facility] [address] [place] [address] Dr. Mariela Larkin Lymphocytes/100 WBC (Bld) 15.9 % Critically low 20.5-60.0 [facility] Comment on above: Performed By: #### C BC #### [facility] [address] [place] [address] Dr. Mariela Larkin MANUAL DIFF REQ NO Normal [facility] Comment on above: Performed By: #### C BC #### [facility] [address] [place] [address] Dr. Mariela Larkin MCH (RBC) [Entitic mass] 26.2 pg Critically low 26.7-34.0 [facility] Comment on above: Performed By: #### C BC #### [facility] [address] [place] [address] Dr. Mariela Larkin MCHC (RBC) [Mass/Vol] 32.4 g/dL Normal 29.9-35.2 [facility] Comment on above: Performed By: #### C BC #### [facility] [address] [place] [address] Dr. Mariela Larkin MCV (RBC) [Entitic vol] 81.0 fL Normal 81.0-99.0 [facility] Comment on above: Performed By: #### C BC #### [facility] [address] [place] [address] Dr. Mariela Larkin MONO # 0.9 103/ul Critically high 0.3-0.8 [facility] Comment on above: Performed By: #### C BC #### [facility] [address] [place] [address] Dr. Mariela Larkin Monocytes/100 WBC (Bld) 5.5 % Normal 1.7-12.0 [facility] Comment on above: Performed By: #### C BC #### [facility] [address] [place] [address] Dr. Mariela Larkin NEUT # 11.9 103/ul Critically high 1.4-6.5 [facility] Comment on above: Performed By: #### C BC #### [facility] [address] [place] [address] Dr. Mariela Larkin Neutrophils/100 WBC (Bld) 76.5 % Critically high 43.0-75.0 [facility] Comment on above: Performed By: #### C BC #### [facility] [address] [place] [address] Dr. Mariela Larkin Platelet mean volume (Bld) [Entitic vol] 9.8 fL Normal 9.5-13.5 [facility] Comment on above: Performed By: #### C BC #### [facility] [address] [place] [address] Dr. Mariela Larkin PLT 268 103/ul Normal 150-450 [facility] Comment on above: Performed By: #### C BC #### [facility] [address] [place] [address] Dr. Mariela Larkin RBC 4.20 106/ul Normal 4.20-5.40 [facility] Comment on above: Performed By: #### C BC #### [facility] [address] [place] [address] Dr. Mariela Larkin WBC 15.6 103/ul Critically high 4.0-11.0 [facility] Comment on above: Performed By: #### C BC #### [facility] [address] [place] [address] Dr. Mariela Larkin GROUP B STREP CULTUREon [...] F Tetracycline >=16 R F Normal [facility] Comment on above: Performed By: #### C VDTBH #### [facility] [address] [place] [address] Dr. Mariela Larkin CHLAMYDIA/GONOCOCCUS OMAIRA ( AB/URINE/PAPon 07-12-2022 Chlamydia trachomatis, OMAIRA Negative Normal Negative [facility] Comment on above: Performed By: #### C VDTBH #### [facility] [address] [place] [address] Dr. Mariela Larkin Neisseria gonorrhoeae, OMAIRA Negative Normal Negative [facility] Comment on above: Performed By: #### C VDTBH #### [facility] [address] [place] [address] Dr. Mariela Larkin VAGINITIS/VAGINOSIS DNA PROB Kulwinder 07-11-2022 Marilynn species Positive Abnormal Negative [facility] Comment on above: Performed By: #### C VDTBH #### [facility] [address] [place] [address] Dr. Mariela Larkin Gardnerella vaginalis Negative Normal Negative [facility] Comment on above: Performed By: #### C VDTBH #### [facility] [address] [place] [address] Dr. Mariela Larkin Trichomonas vaginalis Negative Normal Negative [facility] Comment on above: Performed By: #### C VDTBH #### [facility] [address] [place] [address] Dr. 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 Mariela Larkin Clarity (U) CLEAR Normal CLEAR [facility] Comment on above: Performed By: #### A FPMAT #### [facility] [address] [place] [address] Dr. Mariela Larkin Color (U) YELLOW Normal YELLOW [facility] Comment on above: Performed By: #### A FPMAT #### [facility] [address] [place] [address] Dr. Mariela Larkin Glucose Ql (U) Negative Normal NEGATIVE [facility] Comment on above: Performed By: #### A FPMAT #### [facility] [address] [place] [address] Dr. Mariela Larkin Hemoglobin Ql (U) Negative Normal NEGATIVE [facility] Comment on above: Performed By: #### A FPMAT #### [facility] [address] [place] [address] Dr. Mariela Larkin Ketones Ql (U) 15 mg/dl Abnormal NEGATIVE [facility] Comment on above: Performed By: #### A FPMAT #### [facility] [address] [place] [address] Dr. Mariela Larkin LEUKOCYTES Negative Normal NEGATIVE [facility] Comment on above: Performed By: #### A FPMAT #### [facility] [address] [place] [address] Dr. Mariela Larkin Nitrite Ql (U) Negative Normal NEGATIVE [facility] Comment on above: Performed By: #### A FPMAT #### [facility] [address] [place] [address] Dr. Mariela Larkin pH (U) 7.5 [pH] Normal 5-9 [facility] Comment on above: Performed By: #### A FPMAT #### [facility] [address] [place] [address] Dr. Mariela Larkin SPEC GRAVITY 1.020 Normal 1.005-<=1. 025 [facility] Comment on above: Performed By: #### A FPMAT #### [facility] [address] [place] [address] Dr. Mariela Larkin UA PROTEIN TRACE Normal NEGATIVE/ TRACE [facility] Comment on above: Performed By: #### A FPMAT #### [facility] [address] [place] [address] Dr. Mariela Larkin UR MICRO IND NOT INDICATED Normal [facility] Comment on above: Performed By: #### A FPMAT #### [facility] [address] [place] [address] Dr. Mariela Larkin Urobilinogen Qn (U) 1.0 {Vidya'U}/dL Normal 0.2 - 1. 0 [facility] Comment on above: Performed By: #### A FPMAT #### [facility] [address] [place] [address] Dr. Mariela Larkin US PREG GROWTHon 06-21-2022 [...] by: YENNI ROSE Date: 2022-06-21 18:37 Normal [facility] GLUCOSE - 1HRon 05-07-2022 Glucose [Mass/Vol] 120 mg/dL Critically high 74-106 [facility] Comment on above: Performed By: #### G LU1HR #### [facility] [address] [place] [address] Dr. Mariela Larkin HEMOGRAM AND PLATELon 2021 Hematocrit (Bld) [Volume fraction] 32.6 % Critically low 36.0-48.0 [facility] Comment on above: Performed By: #### A FPMAT #### [facility] [address] [place] [address] Dr. Mariela Larkin Hemoglobin (Bld) [Mass/Vol] 10.5 g/dL Critically low 12.0-16.0 [facility] Comment on above: Performed By: #### A FPMAT #### [facility] [address] [place] [address] Dr. Mariela Larkin MCH (RBC) [Entitic mass] 28.2 pg Normal 26.7-34.0 [facility] Comment on above: Performed By: #### A FPMAT #### [facility] [address] [place] [address] Dr. Mariela Larkin MCHC (RBC) [Mass/Vol] 32.2 g/dL Normal 29.9-35.2 [facility] Comment on above: Performed By: #### A FPMAT #### [facility] [address] [place] [address] Dr. Mariela Larkin MCV (RBC) [Entitic vol] 87.4 fL Normal 81.0-99.0 [facility] Comment on above: Performed By: #### A FPMAT #### [facility] [address] [place] [address] Dr. Mariela Larkin PLT 242 103/ul Normal 150-450 [facility] Comment on above: Performed By: #### A FPMAT #### [facility] [address] [place] [address] Dr. Mariela Larkin RBC 3.73 106/ul Critically low 4.20-5.40 [facility] Comment on above: Performed By: #### A FPMAT #### [facility] [address] [place] [address] Dr. Mariela Larkin WBC 13.2 103/ul Critically high 4.0-11.0 [facility] Comment on above: Performed By: #### A FPMAT #### [facility] [address] [place] [address] Dr. 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 Mariela Larkin Clarity (U) CLEAR Normal CLEAR [facility] Comment on above: Performed By: #### U ACSIND #### [facility] [address] [place] [address] Dr. Mariela Larkin Color (U) YELLOW Normal YELLOW [facility] Comment on above: Performed By: #### U ACSIND #### [facility] [address] [place] [address] Dr. Mariela Larkin Glucose Ql (U) Negative Normal NEGATIVE [facility] Comment on above: Performed By: #### U ACSIND #### [facility] [address] [place] [address] Dr. Mariela Larkin Hemoglobin Ql (U) Negative Normal NEGATIVE [facility] Comment on above: Performed By: #### U ACSIND #### [facility] [address] [place] [address] Dr. Mariela Larkin Ketones Ql (U) TRACE Abnormal NEGATIVE [facility] Comment on above: Performed By: #### U ACSIND #### [facility] [address] [place] [address] Dr. Mariela Larkin LEUKOCYTES Negative Normal NEGATIVE [facility] Comment on above: Performed By: #### U ACSIND #### [facility] [address] [place] [address] Dr. Mariela Larkin Nitrite Ql (U) Negative Normal NEGATIVE [facility] Comment on above: Performed By: #### U ACSIND #### [facility] [address] [place] [address] Dr. Mariela Larkin pH (U) 8.0 [pH] Normal 5-9 [facility] Comment on above: Performed By: #### U ACSIND #### [facility] [address] [place] [address] Dr. Mariela Larkin SPEC GRAVITY 1.015 Normal 1.005-<=1. 025 [facility] Comment on above: Performed By: #### U ACSIND #### [facility] [address] [place] [address] Dr. Mariela Larkin UA PROTEIN Negative Normal NEGATIVE/ TRACE [facility] Comment on above: Performed By: #### U ACSIND #### [facility] [address] [place] [address] Dr. Mariela Larkin UR MICRO IND NOT INDICATED Normal [facility] Comment on above: Performed By: #### U ACSIND #### [facility] [address] [place] [address] Dr. Mariela Larkin Urobilinogen Qn (U) 0.2 {Vidya'U}/dL Normal 0.2 - 1. 0 [facility] Comment on above: Performed By: #### U ACSIND #### [facility] [address] [place] [address] Dr. Mariela Larkin US PREG ANATOMY SINGLEon [...] MARTIN VALVERDE Date: 2022-04-11 16:25 Normal [facility] AFP MATERNAL FOR SPINA BIFID Aon 03-09-2022 AFP MoM 1.59 Normal [facility] Comment on above: Performed By: #### A FPMAT #### [facility] [address] [address] [address] Mariela Larkin AFP Value 95.6 ng/mL Normal [facility] Comment on above: Performed By: #### A FPMAT #### [facility] [address] [address] [address] Mariela Larkin AFP, Serum for Spina Bifida Report Normal [facility] Comment on above: Performed By: #### A FPMAT #### [facility] [address] [address] [address] Mariela Larkin Comment Comment Normal [facility] Comment on above: Result Comment: Maryanne Hagen, Ph.D., [facility] Director . References: Available Upon Request. . Multiples Of Median Cutoffs For AFP Elevations Moran 2.5 Black 2.8 IDD 2.0 Twins 4.5 Abbreviation Definitions IDD - Insulin Dep Diabetes OSBR - Open Spina Bifida Risk . For further inquiries contact [facility] at [phone]. . This test was developed and its performance characteristics determined by [employer]. It has not been cleared or approved by the Food and Drug Administration. Performed By: #### A FPMAT #### [facility] [address] [place] [address] Dr. Mariela Grover Age Collection Date 18.4 weeks Normal [facility] Comment on above: Performed By: #### A FPMAT #### [facility] [address] [place] [address] Dr. Mariela Larkin Gestat, Age Based on MARILUZ [facility] Comment on above: Result Comment: 07/11 Recalculations are not recommended when gestational dating by LMP and ultrasound are within 10 days. Performed By: #### A FPMAT #### [facility] [address] [place] [address] Dr. Mariela Larkin Insulin Dep Diabetes No Normal [facility] Comment on above: Performed By: #### A FPMAT #### [facility] [address] [place] [address] Dr. Mariela Larkin Interpretation Comment Normal [facility] Comment on above: Result Comment: Inte [...] Customer Services to discuss available options. The [employer] recommends amniocentesis be offered to women age 35 and older. Performed By: #### A FPMAT #### [facility] [address] [place], [place] [id number] Dr. Mariela Larkin [age] Normal [facility] Comment on above: Performed By: #### A FPMAT #### [facility] [address] [place] [address] Dr. Mariela Larkin Multiple Gestation No Normal [facility] Comment on above: Performed By: #### A FPMAT #### [facility] [address] [place] [address] Dr. Mariela Larkin OSBR Risk 1 IN 2154 Normal [facility] Comment on above: Performed By: #### A FPMAT #### [facility] [address] [place] [address] Dr. Mariela Larkin PDF . Normal [facility] Comment on above: Performed By: #### A FPMAT #### [facility] [address] [place] [address] Dr. Mariela Larkin Race Normal [facility] Comment on above: Performed By: #### A FPMAT #### [facility] [address] [place] [address] Dr. Mariela Larkin Test Results: Negative [facility] Comment on above: Performed By: #### A FPMAT #### [facility] [address] [place] [address] Dr. Mariela Larkin HEP B SURFACE ANTIGEN SCREEN on 01-27-2022 HBsAg Screen Negative Normal Negative [facility] Comment on above: Performed By: #### C VDTBH #### [facility] [address] [place] [address] Dr. Mariela Larkin HEPATITIS C VIRUS AB W/ REFL EX QUANTon 01-27-2022 HCV AB <0.1 Normal 0.0-0.9 [facility] Comment on above: Performed By: #### A FPMAT #### [facility] [address] [place] [address] Dr. Mariela Larkin Interpretation: Comment Normal [facility] Comment on above: Result Comment: Nega tive Not infected with HCV, unless recent infection is suspected or other evidence exists to indicate HCV infection. Performed By: #### A FPMAT #### [facility] [address] [place] [address] Dr. Mariela Larkin HIV 1 AND 2 WITH REFLEXon HIV Screen 4th Generation wRfx Non-Reactive Normal Non Reactive [facility] Comment on above: Result Comment: HIV Negative HIV-1/HIV-2 antibodies and HIV-1 p24 antigen were NOT detected. There is no laboratory evidence of HIV infection. Performed By: #### C VDTBH #### [facility] [address] [place] [address] Dr. Mariela Larkin RPR QUANTon 01-27-2022 Rapid Plasma Reagin, Quant Non-Reactive Normal NonRea<1:1 [facility] Comment on above: Result Comment: Plea se Note: This test does not meet current guidelines for screening and diagnosis of syphilis. This test is intended for following treatment response in patients being treated for syphilis infection. To screen for syphilis infection, a reflex cascade that includes both RPR and a treponema-specific assay should be utilized, such as Treponema pallidum (Syphilis) Screening [place] (634224) or Rapid Plasma Reagin (RPR) Test With Reflex to Quantitative RPR and Confirmatory Treponema pallidum Antibodies (375712). Performed By: #### R PRQ #### [facility] [address] [place] [address] Dr. Mariela Larkin RUBELLA AB IGGon 01-27-2022 Rubella Antibodies, IgG 3.63 index Normal Immu ne >0.99 [facility] Comment on above: Result Comment: Non- immune <0.90 Equivocal 0.90 - 0.99 Immune >0.99 Performed By: #### A FPMAT #### [facility] [address] [place] [address] Dr. Mariela Larkin CBC AUTO DIFFon 01-26-2022 BASO # 0.0 103/ul Normal 0.0-0.1 [facility] Comment on above: Performed By: #### A FPMAT #### [facility] [address] [place] [address] Dr. Mariela Larkin Basophils/100 WBC (Bld) 0.2 % Normal 0.2-2.0 [facility] Comment on above: Performed By: #### A FPMAT #### [facility] [address] [place] [address] Dr. Mariela Larkin EO # 0.2 103/ul Normal 0.0-0.7 [facility] Comment on above: Performed By: #### A FPMAT #### [facility] [address] [place] [address] Dr. Mariela Larkin Eosinophils/100 WBC (Bld) 2.5 % Normal 0.9-7.0 [facility] Comment on above: Performed By: #### A FPMAT #### [facility] [address] [place] [address] Dr. Mariela Larkin Erythrocyte distribution width (RBC) [Ratio] 14.1 % Normal 11.0-15.0 [facility] Comment on above: Performed By: #### A FPMAT #### [facility] [address] [place] [address] Dr. Mariela Larkin Hematocrit (Bld) [Volume fraction] 33.1 % Critically low 36.0-48.0 [facility] Comment on above: Performed By: #### A FPMAT #### [facility] [address] [place] [address] Dr. Mariela Larkin Hemoglobin (Bld) [Mass/Vol] 11.1 g/dL Critically low 12.0-16.0 [facility] Comment on above: Performed By: #### A FPMAT #### [facility] [address] [place] [address] Dr. Mariela Larkin IG # 0.03 10e3/ul Normal 0.00-0.03 [facility] Comment on above: Performed By: #### A FPMAT #### [facility] [address] [place] [address] Dr. Mariela Larkin IG % 0.3 % Normal 0.0-0.5 [facility] Comment on above: Performed By: #### A FPMAT #### [facility] [address] [place] [address] Dr. Mariela Larkin LYMPH # 1.1 103/ul Critically low 1.2-3.8 [facility] Comment on above: Performed By: #### A FPMAT #### [facility] [address] [place] [address] Dr. Mariela Larkin Lymphocytes/100 WBC (Bld) 11.7 % Critically low 20.5-60.0 [facility] Comment on above: Performed By: #### A FPMAT #### [facility] [address] [place] [address] Dr. Mariela Larkin MANUAL DIFF REQ NO Normal [facility] Comment on above: Performed By: #### A FPMAT #### [facility] [address] [place] [address] Dr. Mariela Larkin MCH (RBC) [Entitic mass] 29.1 pg Normal 26.7-34.0 [facility] Comment on above: Performed By: #### A FPMAT #### [facility] [address] [place] [address] Dr. Mariela Larkin MCHC (RBC) [Mass/Vol] 33.5 g/dL Normal 29.9-35.2 [facility] Comment on above: Performed By: #### A FPMAT #### [facility] [address] [place] [address] Dr. Mariela Larkin MCV (RBC) [Entitic vol] 86.9 fL Normal 81.0-99.0 [facility] Comment on above: Performed By: #### A FPMAT #### [facility] [address] [place] [address] Dr. Mariela Larkin MONO # 0.4 103/ul Normal 0.3-0.8 [facility] Comment on above: Performed By: #### A FPMAT #### [facility] [address] [place] [address] Dr. Mariela Larkin Monocytes/100 WBC (Bld) 4.0 % Normal 1.7-12.0 [facility] Comment on above: Performed By: #### A FPMAT #### [facility] [address] [place] [address] Dr. Mariela Larkin NEUT # 7.5 103/ul Critically high 1.4-6.5 [facility] Comment on above: Performed By: #### A FPMAT #### [facility] [address] [place] [address] Dr. Mariela Larkin Neutrophils/100 WBC (Bld) 81.3 % Critically high 43.0-75.0 [facility] Comment on above: Performed By: #### A FPMAT #### [facility] [address] [place] [address] Dr. Mariela Larkin Platelet mean volume (Bld) [Entitic vol] 9.6 fL Normal 9.5-13.5 [facility] Comment on above: Performed By: #### A FPMAT #### [facility] [address] [place] [address] Dr. Mariela Larkin PLT 225 103/ul Normal 150-450 [facility] Comment on above: Performed By: #### A FPMAT #### [facility] [address] [place] [address] Dr. Mariela Larkin RBC 3.81 106/ul Critically low 4.20-5.40 [facility] Comment on above: Performed By: #### A FPMAT #### [facility] [address] [place] [address] Dr. Mariela Larkin WBC 9.3 103/ul Normal 4.0-11.0 [facility] Comment on above: Performed By: #### A FPMAT #### [facility] [address] [place] [address] Dr. Mariela Larkin CULTURE URINEon 01-26-2022 CULTURE URINE Culture Observations : No growth Normal [facility] Comment on above: Performed By: #### U RCX #### [facility] [address] [place] [address] Dr. Mariela Larkin GLYCOHEMOGLOBIN A1Con 2021 ADA RECOMMENDATION SEE BELOW Normal [facility] Comment on above: Result Comment: ADA RECOMMENDED LIMIT 4.0 - 6.0 ADA THERAPEUTIC TARGET < 7.0 ACTION SUGGESTED > 7.0 Performed By: #### A FPMAT #### [facility] [address] [place] [address] Dr. Mariela Larkin Glucose [Mass/Vol] 94 mg/dL Normal [facility] Comment on above: Performed By: #### A FPMAT #### [facility] [address] [place] [address] Dr. Mariela Larkin HbA1c (Bld) [Mass fraction] 4.9 % Normal 4.5-6.2 [facility] Comment on above: Performed By: #### A FPMAT #### [facility] [address] [place] [address] Dr. Mariela Larkin DHRUV BOX TEST PT SEND OUTo n 01-26-2022 SENT TO REF LAB 01/26/2022 Normal [facility] Comment on above: Performed By: #### C VDTBH #### [facility] [address] [place] [address] Dr. Mariela Larkin TYPE AND SCREENon 01-26-2022 TYPE AND SCREEN Negative Normal [facility] Comment on above: Performed By: #### T NS #### [facility] [address] [place] [address] Dr. Mariela Larkin US PREG TVon 12-25-2021 [...] by: MARTIN VALVERDE Date: 2021-12-25 11:24 Normal [facility] Vital Signs Date Time Vital Sign Value Performing Clinician Facility 05-13-2025 10: Body mass index (BMI) [Ratio] 24.14 kg/m2 Glo Bags Phone: [facility] 05-13-2025 10: Body weight 59.88 kg Glo Bags Phone: [facility] 05-13-2025 10: Diastolic blood pressure 70 mm[Hg] Glo Bags Phone: [facility] 05-13-2025 10:13-0400 Systolic blood pressure 110 mm[Hg] Demarco Kirby DO Work Phone: [facility] 04-22-2025 10:57-0400 Body mass index (BMI) [Ratio] 23.5 kg/m2 Demarco Kirby DO Work Phone: [facility] 04-22-2025 10:57-0400 Body weight 58.29 kg Demarco Kirby DO Work Phone: [facility] 04-22-2025 10:57-0400 Diastolic blood pressure 70 mm[Hg] Demarco Kirby DO Work Phone: [facility] 04-22-2025 10:57-0400 Systolic blood pressure 102 mm[Hg] Demarco Kirby DO Work Phone: [facility] 03-29-2025 15:55-0400 Body mass index (BMI) [Ratio] 22.54 kg/m2 Cira BROWN Work Phone: [facility] 03-29-2025 15:55-0400 Body weight 55.91 kg Cira BROWN Work Phone: [facility] 03-29-2025 15:55-0400 Diastolic blood pressure 64 mm[Hg] Cira Chairez PA Work Phone: [facility] 03-29-2025 15:55-0400 Systolic blood pressure 116 mm[Hg] Cira Chairez PA Work Phone: [facility] 02-22-2025 14:10-0400 Body mass index (BMI) [Ratio] 21.29 kg/m2 Demarco Kirby DO Work Phone: [facility] 02-22-2025 14:10-0400 Body weight 52.8 kg Demarco Kirby DO Work Phone: [facility] 02-22-2025 14:10-0400 Diastolic blood pressure 66 mm[Hg] Demarco Kirby DO Work Phone: [facility] 02-22-2025 14:10-0400 Systolic blood pressure 106 mm[Hg] Demarco Orr DO Work Phone: [facility] 01-30-2025 11:21-0400 Body height 154.94 cm Divina Araya DO Work Phone: [facility] 01-30-2025 11:21-0400 Body weight 49.89 kg GSofia Araya DO Work Phone: [facility] 01-30-2025 10:49-0400 Diastolic blood pressure 66 mm[Hg] GSofia Araya DO Work Phone: [facility] 01-30-2025 10:49-0400 Heart rate 67 /min Divina Araya DO Work Phone: [facility] 01-30-2025 10:49-0400 Respiratory rate 18 /min GSofia Araya DO Work Phone: [facility] 01-30-2025 10:49-0400 SaO2% (BldA) [Mass fraction] 99 % GSofia Araya DO Work Phone: [facility] 01-30-2025 10:49-0400 Systolic blood pressure 103 mm[Hg] Divina Araya DO Work Phone: [facility] 01-30-2025 08:26-0400 Body temperature 98.2 [degF] Divina Araya DO Work Phone: [facility] 01-30-2025 08:23-0400 Body height 154.94 cm Divina Araya DO Work Phone: [facility] 01-30-2025 08:23-0400 Body weight 51.8 kg Divina Araya DO Work Phone: [facility] 01-25-2025 10:37-0400 Body mass index (BMI) [Ratio] 20.58 kg/m2 Susan Troy BUMPER MACHINE OPERATOR Work Phone: [facility] 01-25-2025 10:37-0400 Body weight 51.03 kg Susan Woodrow BUMPER MACHINE OPERATOR Work Phone: [facility] 01-25-2025 10:37-0400 Diastolic blood pressure 60 mm[Hg] Susan Woodrow BUMPER MACHINE OPERATOR Work Phone: [facility] 01-25-2025 10:37-0400 Systolic blood pressure 100 mm[Hg] Susan Woodrow BUMPER MACHINE OPERATOR Work Phone: [facility] 12-07-2024 16:28-0400 Body mass index (BMI) [Ratio] 18.68 kg/m2 Demarco Kirby DO Work Phone: [facility] 12-07-2024 16:28-0400 Body weight 46.32 kg Demarco Kirby DO Work Phone: [facility] 12-07-2024 16:28-0400 Diastolic blood pressure 68 mm[Hg] Demarco Kirby DO Work Phone: [facility] 12-07-2024 16:28-0400 Systolic blood pressure 110 mm[Hg] Demarco Kirby DO Work Phone: [facility] 11-05-2024 13:27-0500 Body mass index (BMI) [Ratio] 17.96 kg/m2 Nom Nurse [facility] 11-05-2024 13:27-0500 Body weight 44.54 kg Nom Nurse [facility] 11-05-2024 13:27-0500 Diastolic blood pressure 60 mm[Hg] Nom Nurse [facility] 11-05-2024 13:27-0500 Systolic blood pressure 100 mm[Hg] Noms Nurse [facility] 09-21-2024 20:40-0500 Body temperature 97.9 [degF] Paramjit Yanes DO Work Phone: [facility] 09-21-2024 20:40-0500 Diastolic blood pressure 67 mm[Hg] Paramjit Yanes DO Work Phone: [facility] 09-21-2024 20:40-0500 Heart rate 67 /min Paramjit Tupa DO Work Phone: [facility] 09-21-2024 20:40-0500 Respiratory rate 20 /min Paramjit Tupa DO Work Phone: [facility] 09-21-2024 20:40-0500 SaO2% (BldA) [Mass fraction] 96 % Paramjit Tupa DO Work Phone: [facility] 09-21-2024 20:40-0500 Systolic blood pressure 112 mm[Hg] Paramjit Tupa DO Work Phone: [facility] 09-21-2024 20:39-0500 Body height 157.48 cm Paramjit Gallegospa DO Work Phone: [facility] 09-21-2024 20:39-0500 Body weight 45.35 kg Paramjit Gallegospa DO Work Phone: [facility] 08-25-2024 15:22-0500 Body mass index (BMI) [Ratio] 17.01 kg/m2 Anummckenna Alcantaraok BUMPER MACHINE OPERATOR Work Phone: [facility] 08-25-2024 15:22-0500 Body temperature 97.7 [degF] Anummckenna Alcantaraok BUMPER MACHINE OPERATOR Work Phone: [facility] 08-25-2024 15:22-0500 Body weight 42.19 kg Anummckenna MarksGlo BUMPER MACHINE OPERATOR Work Phone: [facility] 08-25-2024 15:22-0500 Diastolic blood pressure 80 mm[Hg] Anum Nauvoo BUMPER MACHINE OPERATOR Work Phone: [facility] 08-25-2024 15:22-0500 Heart rate 92 /min Anum Glo BUMPER MACHINE OPERATOR Work Phone: [facility] 08-25-2024 15:22-0500 SaO2% (BldA) [Mass fraction] 99 % Anum Nauvoo BUMPER MACHINE OPERATOR Work Phone: [facility] 08-25-2024 15:22-0500 Systolic blood pressure 120 mm[Hg] Anum Lgo BUMPER MACHINE OPERATOR Work Phone: [facility] 08-02-2024 09:20-0500 Body mass index (BMI) [Ratio] 17.01 kg/m2 Carlos Zaragoza MD, IBCLC Work Phone: [facility] 08-02-2024 09:20-0500 Body temperature 97.81 [degF] Carlos Zaragoza MD, IBCLC Work Phone: [facility] 08-02-2024 09:20-0500 Body weight 42.19 kg Carlos Zaragoza MD, IBCLC Work Phone: [facility] 08-02-2024 09:20-0500 Diastolic blood pressure 60 mm[Hg] Carlos Zaragoza MD, IBCLC Work Phone: [facility] 08-02-2024 09:20-0500 Heart rate 91 /min Carlos Zaragoza MD, IBCLC Work Phone: [facility] 08-02-2024 09:20-0500 SaO2% (BldA) [Mass fraction] 99 % Carlos Zaragoza MD, IBCLC Work Phone: [facility] 08-02-2024 09:20-0500 Systolic blood pressure 112 mm[Hg] Carlos Zaragoza MD, IBCLC Work Phone: [facility] 06-29-2024 10:37-0400 Body height 156.21 cm DO Divina Araya Work Phone: [facility] 06-29-2024 10:37-0400 Body temperature 98 [degF] DO Divina Araya Work Phone: [facility] 06-29-2024 10:37-0400 Body weight 40.9 kg DO Divina Araya Work Phone: [facility] 06-29-2024 10:37-0400 Diastolic blood pressure 68 mm[Hg] DO Divina Araya Work Phone: [facility] 06-29-2024 10:37-0400 Heart rate 76 /min DO Divina Araya Work Phone: [facility] 06-29-2024 10:37-0400 Respiratory rate 16 /min DO Divina Araya Work Phone: [facility] 06-29-2024 10:37-0400 SaO2% (BldA) [Mass fraction] 100 % DO Divina Araya Work Phone: [facility] 06-29-2024 10:37-0400 Systolic blood pressure 104 mm[Hg] DO Divina Araya Work Phone: [facility] 04-29-2024 15:45-0400 Body height 157.5 cm Diego Araya DO Work Phone: [facility] 04-29-2024 15:45-0400 Body mass index (BMI) [Ratio] 16.97 kg/m2 Diego Araya DO Work Phone: [facility] 04-29-2024 15:45-0400 Body temperature 98.71 [degF] Diego Araya DO Work Phone: [facility] 04-29-2024 15:45-0400 Body weight 42.09 kg Diego Araya DO Work Phone: [facility] 04-29-2024 15:45-0400 Diastolic blood pressure 64 mm[Hg] Diego Araya DO Work Phone: [facility] 04-29-2024 15:45-0400 Heart rate 83 /min Diego Araya DO Work Phone: [facility] 04-29-2024 15:45-0400 SaO2% (BldA) [Mass fraction] 98 % Diego Araya DO Work Phone: [facility] 04-29-2024 15:45-0400 Systolic blood pressure 116 mm[Hg] Diego Araya DO Work Phone: [facility] 04-17-2024 13:15-0400 Diastolic blood pressure 62 mm[Hg] DO Divina Araya Work Phone: [facility] 04-17-2024 13:15-0400 Heart rate 71 /min DO Divina Araya Work Phone: [facility] 04-17-2024 13:15-0400 Respiratory rate 18 /min DO Divina Araya Work Phone: [facility] 04-17-2024 13:15-0400 SaO2% (BldA) [Mass fraction] 97 % DO Divina Araya Work Phone: [facility] 04-17-2024 13:15-0400 Systolic blood pressure 113 mm[Hg] DO Divina Araya Work Phone: [facility] 04-17-2024 09:49-0400 Body height 154.94 cm DO Divina Araya Work Phone: [facility] 04-17-2024 09:49-0400 Body temperature 98 [degF] DO Divina Araya Work Phone: [facility] 04-17-2024 09:49-0400 Body weight 42.1 kg DO Divina Araya Work Phone: [facility] 10-13-2023 14:07-0500 Body temperature 98.4 [degF] DO Divina Araya Work Phone: [facility] 10-13-2023 14:07-0500 Diastolic blood pressure 56 mm[Hg] DO Divina Araya Work Phone: [facility] 10-13-2023 14:07-0500 Heart rate 78 /min DO Divina Araya Work Phone: [facility] 10-13-2023 14:07-0500 Respiratory rate 18 /min DO Divina Araya Work Phone: [facility] 10-13-2023 14:07-0500 SaO2% (BldA) [Mass fraction] 100 % DO Divina Araya Work Phone: [facility] 10-13-2023 14:07-0500 Systolic blood pressure 103 mm[Hg] DO Divina Araya Work Phone: [facility] 10-13-2023 11:52-0500 Body height 154.94 cm DO Divina Araya Work Phone: [facility] 10-13-2023 11:52-0500 Body weight 43 kg DO Divina Araya Work Phone: 9(692)938-173339 [place] [address] 09-28-2023 16:24-0500 Body temperature 98.1 [degF] DO Divina Araya Work Phone: 2(258)809-866039 [place] [address] 09-28-2023 16:24-0500 Diastolic blood pressure 62 mm[Hg] DO Divina Araya Work Phone: 9(061)250-941039 [place] [address] 09-28-2023 16:24-0500 Heart rate 84 /min DO Divina Araya Work Phone: 8(271)906-364739 [place] [address] 09-28-2023 16:24-0500 Respiratory rate 24 /min DO Divina Araya Work Phone: 5(570)190-357139 [place] [address] 09-28-2023 16:24-0500 SaO2% (BldA) [Mass fraction] 99 % DO Divina Araya Work Phone: [facility] 09-28-2023 16:24-0500 Systolic blood pressure 103 mm[Hg] DO Divina Araya Work Phone: [facility] 09-28-2023 13:15-0500 Body height 156.21 cm DO Divina Araya Work Phone: [facility] 09-28-2023 13:15-0500 Body weight 40.75 kg DO Divina Greenan Work Phone: [facility] 09-10-2023 09:49-0500 Diastolic blood pressure 59 mm[Hg] DO Divina Greenan Work Phone: 9(148)136-537756 [address] 09-10-2023 09:49-0500 Heart rate 65 /min DO Divina Araya Work Phone: [facility] 09-10-2023 09:49-0500 Respiratory rate 16 /min DO Divina Araya Work Phone: 9(712)710-489339 [place] [address] 09-10-2023 09:49-0500 SaO2% (BldA) [Mass fraction] 100 % DO Divina Araya Work Phone: 8(910)989-066739 [place] [address] 09-10-2023 09:49-0500 Systolic blood pressure 95 mm[Hg] DO Divina Araya Work Phone: 3(981)192-066356 [address] 09-10-2023 07:42-0500 Body height 156.21 cm DO Divina Araya Work Phone: 6(930)075-388039 [place] [address] 09-10-2023 07:42-0500 Body weight 40.82 kg DO Divina Araya Work Phone: 6(144)976-620239 [place] [address] 06-03-2023 10:35-0400 Diastolic blood pressure 71 mm[Hg] DO Divina Araya Work Phone: 0(321)923-523539 [place] [address] 06-03-2023 10:35-0400 Heart rate 63 /min DO Divina Araya Work Phone: 6(222)170-840639 [place] [address] 06-03-2023 10:35-0400 Respiratory rate 16 /min DO Divina Araya Work Phone: [facility] 06-03-2023 10:35-0400 SaO2% (BldA) [Mass fraction] 100 % DO Divina Araya Work Phone: 8(753)645-397739 [place] [address] 06-03-2023 10:35-0400 Systolic blood pressure 106 mm[Hg] DO Divina Araya Work Phone: 5(803)554-607839 [place] [address] 06-03-2023 08:46-0400 Body height 157.48 cm DO Divina Araya Work Phone: 6(617)622-577039 [place] [address] 06-03-2023 08:46-0400 Body weight 48.98 kg DO Divina Araya Work Phone: [facility] 04-25-2023 15:15-0400 Body height 165.35 cm Imad Asaad Other [employer] Other 04-25-2023 15:15-0400 Body mass index (BMI) [Ratio] 17.09 kg/m2 Imad As[facility]ad [facility] [employer] Other 04-25-2023 15:15-0400 Body weight 46.72 kg Imad As[facility]ad [facility] [employer] Other 04-25-2023 15:15-0400 Diastolic blood pressure 68 mm[Hg] Imad Asaad Other [employer] Other 04-25-2023 15:15-0400 Systolic blood pressure 110 mm[Hg] Imad Asaad Other [employer] Other 12-29-2022 15:12-0400 Body temperature 98.9 [degF] DO Divina Araya Work Phone: [facility] 12-29-2022 15:12-0400 Diastolic blood pressure 64 mm[Hg] DO Divina Menardlauraksylar Work Phone: [facility] 12-29-2022 15:12-0400 Heart rate 65 /min DO Divina Menardlottie Work Phone: [facility] 12-29-2022 15:12-0400 Respiratory rate 18 /min DO Divina Menardlottie Work Phone: [facility] 12-29-2022 15:12-0400 SaO2% (BldA) [Mass fraction] 98 % DO Divina Menardlottie Work Phone: [facility] 12-29-2022 15:12-0400 Systolic blood pressure 112 mm[Hg] DO Divina Araya Work Phone: [facility] 12-29-2022 12:53-0400 Body height 154.94 cm DO Divina Araya Work Phone: [facility] 12-29-2022 12:53-0400 Body weight 53.1 kg DO Divina Araya Work Phone: [facility] 11-06-2022 14:21-0500 Body temperature 98.6 [degF] Kayy Gudimella [facility] 11-06-2022 14:21-0500 Heart rate 77 /min Kayy Gudimella [facility] 11-06-2022 14:21-0500 SaO2% (BldA) [Mass fraction] 98 % Kayy Gudimella [facility] 03-09-2022 02:06-0400 Body weight 48.[address] DEMARCO ORR [facility] Comment on above: Performed By: #### AFPMAT #### [facility] [address] [place] [address] Dr. Mariela Larkin Encounters Encounter Date Encounter Type Care Provider Facility Start: 05-13-2025 End: 05-13-2025 Bamboo flowsheet Demarco Kirby DO Work Phone: [facility] Start: 05-13-2025 End: 05-13-2025 Bamboo flowsheet Demarco Kirby DO Work Phone: [facility] Start: 05-13-2025 End: 05-13-2025 Office outpatient visit 15 minutes Demarco Orr DO Work Phone: [facility] Comment on above: 36 weeks gestation o f ([facility]); Third trimester ([facility]); Gastroesophageal reflux in ([facility]); Exposure to STD; Vaginal discharge Start: 05-03-2025 End: 05-03-2025 ambulatory CIRA CHAIREZ Not Available Start: 05-03-2025 End: 05-03-2025 Office outpatient visit 15 minutes Cira BROWN Work Phone: [facility] Comment on above: Third trimester preg jorge ([facility]); 35 weeks gestation of ([facility]) Start: 05-03-2025 End: 05-03-2025 Bamboo flowsheet Cira BROWN Work Phone: [facility] Start: 05-03-2025 End: 05-03-2025 Bamboo flowsheet Cira BROWN Work Phone: [facility] Start: 04-22-2025 End: 04-22-2025 Office outpatient visit 15 minutes Demarco Kirby DO Work Phone: [facility] Comment on above: Third trimester preg jorge ([facility]); 33 weeks gestation of ([facility]) Start: 04-22-2025 End: 04-22-2025 ambulatory DEMARCO KIRBY Not Available Start: 03-29-2025 End: 03-29-2025 Office outpatient visit 15 minutes Cira BROWN Work Phone: [facility] Comment on above: Size of fetus incons istent with dates in first trimester ([facility]) (Primary Dx); Third trimester ([facility]); 30 weeks gestation of ([facility]); Gastroesophageal reflux in ([facility]) Start: 03-29-2025 End: 03-29-2025 ambulatory CIRA CHAIREZ Not Available Start: 03-29-2025 End: 03-29-2025 Bamboo flowsheet Cira BROWN Work Phone: [facility] Start: 03-29-2025 End: 03-29-2025 Bamboo flowsheet Cira BROWN Work Phone: [facility] Start: 03-29-2025 End: 03-29-2025 Clinisync Result Encounter Generic External Data Provider [facility] External Department Unsolicited Start: 02-24-2025 End: 02-24-2025 Emergency department patient visit Divina Araya Facility:[facility] Start: 02-22-2025 End: 02-22-2025 Bamboo flowsheet Demarco Kirby DO Work Phone: [facility] Start: 02-22-2025 End: 02-22-2025 Bamboo flowsheet Demarco Kirby DO Work Phone: [facility] Start: 02-22-2025 End: 02-22-2025 Office outpatient visit 15 minutes Demarco Kirby DO Work Phone: [facility] Comment on above: Second trimester pre gnancy ([facility]); 25 weeks gestation of ([facility]); Diabetes mellitus screening; Gastroesophageal reflux in ([facility]) Start: 02-22-2025 End: 02-22-2025 ambulatory DEMARCO KIRBY Not Available Start: 01-30-2025 End: 01-30-2025 Patient encounter procedure Divina Araya DO Work Phone: [facility] Start: 01-30-2025 End: 01-30-2025 ambulatory Divina Araya DO Work Phone: [facility] Work Phone: Start: 01-30-2025 End: 01-30-2025 Emergency department patient visit Divina Araya DO Work Phone: [facility] Work Phone: Start: 01-27-2025 End: 01-27-2025 Clinisync Result Encounter Generic External Data Provider [facility] External Department Unsolicited Start: 01-27-2025 End: 01-27-2025 Clinisync Result Encounter Generic External Data Provider [facility] External Department Unsolicited Start: 01-25-2025 End: 01-25-2025 Bamboo flowsheet Susan Troy NP Work Phone: [facility] Start: 01-25-2025 End: 01-26-2025 Bamboo flowsheet Susan Woodrow BUMPER MACHINE OPERATOR Work Phone: [facility] Start: 01-25-2025 End: 01-26-2025 External Result Encounter Susan Calvertjackelyn MOON Work Phone: [facility] Department Unsolicited Start: 01-25-2025 End: 01-25-2025 ambulatory SUSAN WOODROW Not Available Start: 01-25-2025 End: 01-25-2025 Office outpatient visit 15 minutes Susan Troy BUMPER MACHINE OPERATOR Work Phone: [facility] Comment on above: Second trimester pre gnancy; 21 weeks gestation of ; Screening, , for anatomic survey; Vaginal discharge; STD exposure; Well woman exam with routine gynecological exam Start: 01-25-2025 End: 01-25-2025 Patient encounter procedure Susan Woodrow BUMPER MACHINE OPERATOR Work Phone: [facility] Start: 12-07-2024 End: [...] 9w3d Start: 11-05-2024 End: 11-05-2024 ambulatory DEMARCO AMATOO Not Available Start: 09-21-2024 End: 09-21-2024 Emergency department patient visit Paramjit Yanes DO Work Phone: [facility] Work Phone: Start: 09-03-2024 End: 09-03-2024 Emergency department patient visit Paramjit Yanes DO Work Phone: [facility] Work Phone: Start: 08-25-2024 End: 08-25-2024 Office outpatient visit 25 minutes Anum Marksbrook BUMPER MACHINE OPERATOR Work Phone: [facility] Comment on above: Late period (Primary Dx); Unprotected sex Start: 08-25-2024 End: 08-25-2024 ambulatory ANUM L GLO Not Available Start: 08-25-2024 End: 08-25-2024 Bamboo flowsheet Anum L Nauvoo BUMPER MACHINE OPERATOR Work Phone: [facility] Start: 08-25-2024 End: 08-25-2024 Bamboo flowsheet Anummckenna Cody BUMPER MACHINE OPERATOR Work Phone: [facility] Start: 08-02-2024 End: 08-02-2024 Office outpatient visit 15 minutes Carlos Zaragoza MD, IBCLC Work Phone: [facility] Comment on above: Viral URI with cough (Primary Dx) Start: 08-02-2024 End: 08-02-2024 ambulatory CARLOS ZARAGOZA Not Available Start: 06-29-2024 ambulatory Frank Castillo Facility:[facility] Start: 06-29-2024 Registered Recurring Paramjit leary DO Work Phone: [facility] Start: 06-29-2024 End: 06-29-2024 Emergency department patient visit DO Divina Araya Work Phone: [facility] Ctr-Emergency Room Work Phone: Start: 04-29-2024 End: 04-29-2024 Office outpatient visit 25 minutes Diego Araya DO Work Phone: [facility] 230 Comment on above: PTSD (post-traumatic stress disorder) (CMS/HCC) (Primary Dx); Bipolar 1 disorder (CMS/HCC); Allergic urticaria; Marijuana abuse; Abdominal discomfort; Mild intermittent asthma, unspecified whether complicated (CMS/HCC) Start: 04-29-2024 End: 04-29-2024 Bamboo flowsheet Diego Araya DO Work Phone: [facility] 230 Start: 04-29-2024 End: 04-29-2024 Bamboo flowsheet Diego Araya DO Work Phone: [facility] Start: 04-17-2024 End: 04-17-2024 Emergency department patient visit DO Divina Menardlottie Work Phone: [facility] Work Phone: Start: 10-13-2023 End: 10-13-2023 Emergency department patient visit DO Divina Menardlottie Work Phone: [facility] Work Phone: Start: 09-28-2023 End: 09-28-2023 Emergency department patient visit DO Divina Menardlottie Work Phone: [facility]-Emergency Room Work Phone: Start: 09-10-2023 End: 09-10-2023 Admission to same day surgery center DO Divina Menardlottie Work Phone: [facility]-Dig[facility]ive [facility] Work Phone: Start: 09-10-2023 End: 09-10-2023 ambulatory DO Divina George Araya Work Phone: [facility] Work Phone: Start: 07-27-2023 End: 07-27-2023 ambulatory DO GeenaSofia George Araya Work Phone: [facility] Work Phone: Start: 07-27-2023 End: 07-27-2023 Patient encounter procedure DO Divina Menardlottie Work Phone: [facility]-CT Scan [facility] [place] Work Phone: Start: 07-11-2023 End: 07-11-2023 ambulatory Imad Asaad Other [facility] Other Start: 07-11-2023 Telephone encounter Imad Asaad [facility] Start: 06-03-2023 End: 06-03-2023 Admission to same day surgery center DO Divina Fields Quiana Work Phone: [facility] Work Phone: Start: 06-03-2023 End: 06-03-2023 ambulatory DO Divina Fields Quiana Work Phone: [facility] Work Phone: Start: 05-08-2023 End: 05-08-2023 ambulatory DO Divina Fields Quiana Work Phone: [facility] Work Phone: Start: 05-08-2023 End: 05-08-2023 Patient encounter procedure DO Divina Menardlottie Work Phone: [facility]Lab [facility] [place] Work Phone: Start: 04-25-2023 End: 04-25-2023 ambulatory Imad Asaad Other [facility] Other Start: 04-25-2023 [facility] visit new patient Imad Asaad [facility] Start: 12-29-2022 End: 12-29-2022 Emergency department patient visit DO Divina George Araya Work Phone: [facility]Emergency [facility] Work Phone: Start: 11-06-2022 End: 11-07-2022 ambulatory Kayy Gudimella Facility:[facility] Start: 11-06-2022 End: 11-06-2022 Patient encounter procedure Kayy Gudimella [facility] Start: 07-22-2022 End: 07-24-2022 Evaluation [...] Date Procedure Procedure Detail Performing Clinician Start: 05-13-2025 Urnls dip stick/tablet rgnt non-auto w/o micrscp Demarco Kirby DO Work Phone: Start: 05-03-2025 Urnls dip stick/tablet rgnt non-auto w/o micrscp Cira BROWN Work Phone: Start: 04-22-2025 Urnls dip stick/tablet rgnt non-auto w/o micrscp Demarco Kirby DO Work Phone: Start: 03-29-2025 ALL CBC WITH AUTO DIFF Cira BROWN Work Phone: Start: 03-29-2025 Urnls dip stick/tablet rgnt non-auto w/o micrscp Cira Chairez PA Work Phone: Start: 02-22-2025 Urnls dip stick/tablet rgnt non-auto w/o micrscp Demarco Kirby DO Work Phone: Start: 01-30-2025 Plain chest X-ray Divina Araya DO Work Phone: Start: 01-27-2025 US OB ANATOMY Generic External Data Provider Start: 01-25-2025 RECURRENT VAGINITIS (HTRX) Susan head BUMPER MACHINE OPERATOR Work Phone: Start: 01-25-2025 Urnls dip stick/tablet rgnt non-auto w/o micrscp Susan Troy BUMPER MACHINE OPERATOR Work Phone: Start: 12-03-2024 BOX TEST Demarco Kirby DO Work Phone: Start: 11-05-2024 Urnls dip stick/tablet rgnt non-auto w/o micrscp Demarco Kirby DO Work Phone: Start: 09-21-2024 Plain X-ray of right shoulder Paramjit brown DO Work Phone: Start: 08-25-2024 Gonadotropin chorionic quantitative Lamar Cody BUMPER MACHINE OPERATOR Work Phone: Start: 08-25-2024 Urine test visual color cmprsn meths Anum Cody BUMPER MACHINE OPERATOR Work Phone: Start: 10-13-2023 Plain chest X-ray [...] Treatment Date Care Activity Detail Author Start: 05-13-2025 End: 05-13-2026 CULTURE, GROUP B STREP WITH SUSCEPTIBLITY CULTURE, GROUP B STREP WITH SUSCEPTIBLITY Lab Routine Third trimester ([facility]) Expected: 05/13/2025, Expires: 05/13/2026 [facility] Work Phone: Comment on above: Expected: 05/13/2025 , Expires: 05/13/2026 Start: 05-13-2025 End: 05-13-2025 Patient encounter procedure 05/13/2025 9:30 AM EDT Routine [facility] [address] [facility] [place] [address] Demarco Orr DO [address] [place] [address] [facility] Start: 05-10-2025 Influenza vaccination [facility] Start: 05-06-2025 End: 05-06-2025 Patient encounter procedure 05/06/2025 10:50 AM EDT Routine [facility] [address] [place] [id number] Cira Chairez PA [address] [place], [place] [id number] [facility] Start: 04-13-2025 End: 04-13-2025 Patient encounter procedure 04/13/2025 10:30 AM EDT Routine [facility] [address] [place] [id number] Demarco Orr DO [address] [place] [address] [facility] Start: 04-13-2025 End: 04-13-2025 Professional / ancillary services management 04/13/2025 10:00 AM EDT Ancillary Procedure [facility] [address] [place] [address] [facility] Start: 03-29-2025 End: 03-29-2025 Patient encounter procedure 03/29/2025 3:50 PM EDT Routine [facility] [address] [place] [id number] Cira Chairez, PA [address] [place] [address] Arrived [facility] Comment on above: Arrived Start: 03-29-2025 End: 07-30-2025 US for US OB follow up transabdominal approach Imaging Routine Size of fetus inconsistent with dates in first trimester ([facility]) Expected: 03/29/2025, Expires: 07/30/2025 [facility] Work Phone: Comment on above: Expected: 03/29/2025 , Expires: 07/30/2025 Start: 03-18-2025 End: 03-18-2025 Patient encounter procedure 03/18/2025 10:10 AM EDT Routine [facility] [address] [place] [phone] Demarco Orr DO [address] [place] [address] [facility] Start: 02-22-2025 End: 02-22-2026 CBC panel - Blood by Automated count CBC Lab Routine Second trimester ([facility]) 25 weeks gestation of ([facility]) Diabetes mellitus screening Expected: 02/22/2025, Expires: 02/22/2026 [facility] Work Phone: Comment on above: Expected: 02/22/2025 , Expires: 02/22/2026 Start: 02-22-2025 End: 02-22-2026 Measurement of glucose 1 hour after glucose challenge for glucose tolerance test Glucose tolerance, 1 hour Lab Routine Second trimester ([facility]) 25 weeks gestation of ([facility]) Diabetes mellitus screening Expected: 02/22/2025, Expires: 02/22/2026 [facility] Comment on above: Expected: 02/22/2025 , Expires: 02/22/2026 Start: 02-22-2025 End: 02-22-2025 Patient encounter procedure [facility] Comment on above: Arrived Start: 01-30-2025 Hospital admission [facility] Start: 01-30-2025 End: 01-30-2025 [facility] Start: 01-30-2025 Duplex scan of lower limb veins US venous duplex LE BI [facility] Start: 01-30-2025 US Lower extremity v ein - bilateral [facility] Start: 01-25-2025 End: 02-25-2025 Alpha fetoprotein, maternal Alpha fetoprotein, maternal Lab Routine Second trimester 21 weeks gestation of Expected: 01/25/2025 (Approximate), Expires: 02/25/2025 [facility] Comment on above: Expected: 01/25/2025 (Approximate), Expires: 02/25/2025 Start: 01-25-2025 End: 04-27-2025 US for US OB 14+ weeks anatomy scan Imaging Routine Screening, , for anatomic survey Expected: 01/25/2025, Expires: 04/27/2025 [facility] Comment on above: Expected: 01/25/2025 , Expires: 04/27/2025 Start: 12-07-2024 End: 12-07-2024 Patient encounter procedure 12/07/2024 3:50 PM EDT Routine [facility] [address] [facility] [place] [address] Demarco Orr, DO [address] [place] [address] [facility] Start: 12-03-2024 End: 12-03-2024 Patient encounter procedure 12/03/2024 10:10 AM EDT Routine [facility] [address] [facility] [place] [address] Demarco Orr, DO [address] [place] [address] [facility] Start: 11-09-2024 End: 11-09-2024 Patient encounter procedure 11/09/2024 1:20 PM EST Office Visit [facility] [address] [facility] [place] [phone] Cira Chairez PA [address] [place] [address] [facility] Start: 11-05-2024 End: 11-05-2025 ABO/Rh ABO/Rh Lab Routine Missed menses , unspecified gestational age Expected: 11/05/2024 (Approximate), Expires: 11/05/2025 [facility] Comment on above: Expected: 11/05/2024 (Approximate), Expires: 11/05/2025 Start: 11-05-2024 End: 11-05-2025 Blood type and Indirect antibody screen panel - Blood Type and screen Lab Routine Missed menses , unspecified gestational age Expected: 11/05/2024 (Approximate), Expires: 11/05/2025 [facility] Comment on above: Expected: 11/05/2024 (Approximate), Expires: 11/05/2025 Start: 11-05-2024 End: 11-05-2025 Drugs of abuse panel - Urine by Screen method Rapid drug screen, urine Lab Routine , unspecified gestational age Encounter for supervision of normal first in first trimester Expected: 11/05/2024 (Approximate), Expires: 11/05/2025 [facility] Comment on above: Expected: 11/05/2024 (Approximate), Expires: 11/05/2025 Start: 11-05-2024 End: 11-05-2025 US Pelvis transvaginal [facility] Work Phone: Comment on above: Expected: 11/05/2024 , Expires: 11/05/2025 Start: 05-10-2024 Influenza vaccination Influenza Vacc ine (#1) [facility] Start: 04-29-2024 End: 04-29-2024 Patient encounter procedure 04/29/2024 4:00 PM EDT Office Visit [facility] [address] [place] [address] Diego Araya DO [address] [place] [address] Arrived [facility] [address] Comment on above: Arrived Start: 04-29-2024 End: 04-29-2025 Cotton linters, untreated IgE Cotton linters, untreated IgE Lab Routine Allergic urticaria Expected: 04/29/2024 (Approximate), Expires: 04/29/2025 [facility] Comment on above: Expected: 04/29/2024 (Approximate), Expires: 04/29/2025 Start: 04-29-2024 End: 04-29-2025 Dog dander IgE Dog dander IgE Lab Routine Allergic urticaria Expected: 04/29/2024 (Approximate), Expires: 04/29/2025 [facility] Comment on above: Expected: 04/29/2024 (Approximate), Expires: 04/29/2025 Start: 04-29-2024 End: 04-29-2025 Food allergy profile Food allergy profile Lab Routine Allergic urticaria Expected: 04/29/2024 (Approximate), Expires: 04/29/2025 [facility] Work Phone: Comment on above: Expected: 04/29/2024 (Approximate), Expires: 04/29/2025 Start: 04-29-2024 End: 04-29-2025 Nfel D 2 cat serum albumin IgE Nfel D 2 cat serum albumin IgE Lab Routine Allergic urticaria Expected: 04/29/2024 (Approximate), Expires: 04/29/2025 [facility] Comment on above: Expected: 04/29/2024 (Approximate), Expires: 04/29/2025 Start: 10-13-2023 [facility] Start: 09-28-2023 Bacteria identified in Urine by Culture [facility] Start: 09-10-2023 [facility] Start: 06-03-2023 [facility] Start: 05-08-2023 Ova and Parasite Concentrate Exam Ova and Parasite Concentrate Exam [facility] Start: 12-29-2022 Bacteria identified in Urine by Culture [facility] aPTT in Platelet poo r plasma by Coagulation assay [facility] Bacteria identified in Urine by Culture Urine culture Microbiology Routine Missed menses Ordered: 11/05/2024 [facility] Comment on above: Ordered: 11/05/2024 Calprotectin [Mass/mass] in Stool [facility] CBC W Auto Different ial panel - Blood CBC and differential Lab Routine Missed menses , unspecified gestational age Ordered: 11/05/2024 [facility] Comment on above: Ordered: 11/05/2024 CBC W Auto Different ial panel - Blood CBC and differential Lab Routine Third trimester ([facility]) Ordered: 03/29/2025 [facility] Comment on above: Ordered: 03/29/2025 CHLAMYDIA TRACHOMATI S (GENITO/STI) CHLAMYDIA TRACHOMATIS (GENITO/STI) Lab Routine Vaginal discharge STD exposure Ordered: 01/25/2025 [facility] Comment on above: Ordered: 01/25/2025 CHLAMYDIA TRACHOMATI S (GENITO/STI) CHLAMYDIA TRACHOMATIS (GENITO/STI) Lab Routine Exposure to STD Ordered: 05/13/2025 [facility] Comment on above: Ordered: 05/13/2025 Cytology Cervical or vaginal smear or scraping study Pap Smear Pathology and Cytology Routine Well woman exam with routine gynecological exam Ordered: 01/25/2025 [facility] Work Phone: Comment on above: Ordered: 01/25/2025 Elastase.pancreatic [Mass/mass] in Stool [facility] Fibrin D-dimer [Presence] in Platelet poor plasma by Latex agglutination [facility] Hemoglobin A1c/Hemoglobin.total in Blood Hemoglobin A1c Lab Routine Missed menses , unspecified gestational age Ordered: 11/05/2024 [facility] Comment on above: Ordered: 11/05/2024 Hemoglobin A1c/Hemoglobin.total in Blood Hemoglobin A1c Lab Routine Third trimester ([facility]) Ordered: 03/29/2025 [facility] Comment on above: Ordered: 03/29/2025 Hepatitis B virus surface Ag [Presence] in Serum or Plasma by Immunoassay Hepatitis B surface antigen Lab Routine Missed menses , unspecified gestational age Ordered: 11/05/2024 [facility] Comment on above: Ordered: 11/05/2024 Hepatitis C virus Ab [Presence] in Serum or Plasma by Immunoassay Hepatitis C antibody Lab Routine Missed menses , unspecified gestational age Ordered: 11/05/2024 [facility] Comment on above: Ordered: 11/05/2024 HIV-1/HIV-2 antigen/antibody combination immunoassay HIV-1 and HIV-2 antibodies Lab Routine Missed menses , unspecified gestational age Ordered: 11/05/2024 [facility] Comment on above: Ordered: 11/05/2024 INR in Platelet poor plasma by Coagulation assay [facility] Neisseria gonorrhoea e DNA [Presence] in Unspecified specimen by OMAIRA with probe detection Neisseria gonorrhea DNA probe, direct Lab Routine Vaginal discharge STD exposure Ordered: 01/25/2025 [facility] Comment on above: Ordered: 01/25/2025 Neisseria gonorrhoea e DNA [Presence] in Unspecified specimen by OMAIRA with probe detection Neisseria gonorrhea DNA probe, direct Lab Routine Exposure to STD Ordered: 05/13/2025 [facility] Comment on above: Ordered: 05/13/2025 Ova and parasites identified in Unspecified specimen by Light microscopy [facility] Patient Education [facility] Work Phone: Patient referral [facility] Work Phone: Prothrombin time (PT) [facility] Reagin Ab [Presence] in Serum by RPR RPR Lab Routine Missed menses , unspecified gestational age Ordered: 11/05/2024 [facility] Comment on above: Ordered: 11/05/2024 Rubella antibody, IgG Rubella an tibody, IgG Lab Routine Missed menses , unspecified gestational age Ordered: 11/05/2024 [facility] Comment on above: Ordered: 11/05/2024 SURESWAB(R) ADVANCED VAGINITIS PLUS, TMA SURESWAB(R) ADVANCED VAGINITIS PLUS, TMA Pathology and Cytology Routine Vaginal discharge STD exposure Ordered: 01/25/2025 [facility] Comment on above: Ordered: 01/25/2025 SURESWAB(R) ADVANCED VAGINITIS PLUS, TMA SURESWAB(R) ADVANCED VAGINITIS PLUS, TMA Pathology and Cytology Routine Vaginal discharge Ordered: 05/13/2025 [facility] Comment on above: Ordered: 05/13/2025 Immunizations Immunization Date Immunization Notes Care Provider Reyes [email or web address] 06-02-2020 Human Papillomavirus 9-valent vaccine Diego Araya DO Work Phone: [facility] 06-02-2020 meningococcal oligosaccharide (groups A, C, Y and W-135) diphtheria toxoid conjugate vaccine (MCV4O) Diego Araya DO Work Phone: [facility] 06-02-2015 human papilloma viru s vaccine, quadrivalent Diego Araya DO Work Phone: [facility] 06-02-2015 influenza, seasonal, injectable Diego Araya DO Work Phone: [facility] 06-02-2015 meningococcal polysaccharide (groups A, C, Y and W-135) diphtheria toxoid conjugate vaccine (MCV4P) Diego Araya DO Work Phone: [facility] 06-02-2015 tetanus toxoid, redu ekaterina diphtheria toxoid, and acellular pertussis vaccine, adsorbed Diego Araya DO Work Phone: [facility] 06-02-2015 influenza virus vaccine, unspecified formulation Diego Araya DO Work Phone: [facility] 03-19-2007 hepatitis A vaccine, unspecified formulation Diego Araya DO Work Phone: [facility] 05-07-2006 diphtheria, tetanus toxoids and acellular pertussis vaccine, unspecified formulation Diego Araya DO Work Phone: [facility] 05-07-2006 hepatitis A vaccine, unspecified formulation Digeo Araya DO Work Phone: [facility] 05-07-2006 measles, mumps and rubella virus vaccine Diego Araya DO Work Phone: [facility] 05-07-2006 pneumococcal conjuga te vaccine, 7 valent Diego Araya DO Work Phone: [facility] 05-07-2006 poliovirus vaccine, inactivated Diego Araya DO Work Phone: [facility] 05-07-2006 varicella virus vaccine Rhea Araya DO Work Phone: [facility] 07-12-2003 diphtheria, tetanus toxoids and acellular pertussis vaccine Diego Araya DO Work Phone: [facility] 07-12-2003 haemophilus influenz ae type b vaccine, PRP-T conjugate Diego Araya DO Work Phone: [facility] 07-12-2003 measles, mumps and rubella virus vaccine Diego Araya DO Work Phone: [facility] 07-12-2003 pneumococcal conjuga te vaccine, 7 valent Diego Araya DO Work Phone: [facility] 07-12-2003 varicella virus vaccine Rhea Araya DO Work Phone: [facility] 2002 diphtheria, tetanus toxoids and acellular pertussis vaccine, unspecified formulation Diego Araya DO Work Phone: [facility] 2002 haemophilus influenz ae type b conjugate and Hepatitis B vaccine Diego Araya DO Work Phone: [facility] 2002 poliovirus vaccine, inactivated Diego Araya DO Work Phone: [facility] 2002 diphtheria, tetanus toxoids and acellular pertussis vaccine, unspecified formulation Diego Araya DO Work Phone: [facility] 2002 haemophilus influenz ae type b vaccine, conjugate unspecified formulation Diego Araya DO Work Phone: [facility] 2002 pneumococcal conjuga te vaccine, 7 valent Diego Araya DO Work Phone: [facility] 2002 poliovirus vaccine, inactivated Diego Araya DO Work Phone: [facility] 2002 diphtheria, tetanus toxoids and acellular pertussis vaccine, unspecified formulation Diego Araya DO Work Phone: [facility] 2002 haemophilus influenz ae type b conjugate and Hepatitis B vaccine Diego Araya DO Work Phone: [facility] 2002 pneumococcal conjuga te vaccine, 7 valent Diego Araya DO Work Phone: [facility] 2002 poliovirus vaccine, inactivated Diego Araya DO Work Phone: [facility] 2002 hepatitis B vaccine, pediatric or pediatric/adolescent dosage Diego Araya DO Work Phone: [facility] NEGATED: Highlighted row has not occurred!11-06-2022 influenza virus vaccine, unspecified formulation Kayy Gudimella [facility] NEGATED: Highlighted row has not occurred!11-06-2022 SARS-CoV-2 mRNA (tozinameran 5y-11y) vaccine Kayy Gudimella [facility] Payers Date Payer Category Payer Self-pay [id number] 2023 Medicaid [employer] [place] [id number] 2023-Present [address] [place] [address] [id number] 2022 Medicaid (Managed Care) 1.2. [id number] 2013 Unknown HCAP/HFA/FAP Active [id number] 2002 Unknown [id number] 2.16.840.1.507901.3.579.2.5 93 2002 Unknown [id number] 2.16.840.1.002612.3.579.2.5 93 2002 Unknown [id number] 2.16.840.1.129646.3.579.2.5 93 2002 Unknown [id number] 2.16.840.1.960811.3.579.2.5 93 2002 Unknown [id number] 2.16.840.1.174588.3.579.2.5 93 2002 Unknown [id number] 2.16.840.1.234915.3.579.2.5 93 2002 Unknown [id number] 2.16.840.1.522618.3.579.2.5 93 2002 Unknown [id number] 2.16.840.1.808214.3.579.2.5 93 2002 Unknown [id number] 2.16.840.1.727350.3.579.2.5 93 2002 Unknown [id number] 2.16.840.1.499426.3.579.2.5 93 2002 Unknown [id number] 2.16.840.1.101349.3.579.2.7 27 2002 Unknown [id number] 2.16.840.1.668377.3.579.2.1 259 2002 Unknown [id number] 2.16.840.1.935969.3.579.2.1 259 2002 Unknown [id number] 2.16.840.1.879823.3.579.2.1 259 2002 Unknown [id number] 2.16.840.1.976408.3.579.2.1 259 2002 Unknown [id number] 2.16.840.1.788843.3.579.2.1 259 2002 Unknown [id number] 2.16.840.1.672482.3.579.2.1 259 2002 Unknown [id number] 2.16.840.1.239248.3.579.2.1 259 2002 Unknown [id number] 2.16.840.1.214222.3.579.2.1 259 2002 Unknown [id number] 2.16840.1.409542.3.579.2.1 259 2002 Unknown [id number] 2.16.840.1.896939.3.579.2.1 259 2002 Unknown [id number] 2.16.840.1.613542.3.579.2.1 259 1959 Unknown [id number] Unknown [id number] 2.16840.1.561920.3.579.2.5 93 Unknown [id number] 2.16840.1.489268.3.579.2.5 31 Unknown [id number] 2.16.840.1.889568.3.579.2.5 31 Unknown [id number] 2.16.840.1.240027.3.579.2.5 31 Unknown [id number] 2.16.840.1.356684.3.579.2.5 31 Unknown [id number] 2.16.840.1.512796.3.579.2.5 31 Unknown [id number] 2.16.840.1.864823.3.579.2.5 31 Unknown [id number] 2.16.840.1.212412.3.579.2.5 31 Unknown [id number] 2.16.840.1.053636.3.579.2.5 31 Social History Date Type Detail Facility Start: 11-06-2022 End: 04-07-2023 Tobacco smoking status Never smoked tobacco (finding) [facility] Tobacco smoking status Never [facility] Start: 04-29-2024 End: 03-01-2025 Sex Assigned At Female [facility] Start: 2002 Sex Assigned At Female [facility] Start: 09-10-2023 End: 01-30-2025 Tobacco smoking status NHIS Smoker (finding) [facility] Start: 04-07-2023 Tobacco use and exposure Smokeless tobacco non-user [facility] Start: 08-02-2024 End: 05-13-2025 Alcoholic beverage intake Lifetime non-drinker (finding) [facility] Start: 04-29-2024 End: 03-01-2025 History of Social function [facility] Work Phone: Start: 04-07-2023 Alcohol Comment caffeine: occasional [facility] Start: 2002 Sex assigned at Not on file [facility] Start: 09-21-2024 End: 01-30-2025 Sex Female (finding) [facility] Start: 09-14-2024 [facility] NEGATED: Highlighted row [facility] Goals Date Patient Goal Desired Activity /State Functional Status Date Assessment Result Facility 11-06-2022 Functional Status N/A [facility] Clinical Notes 11-06-2022 to 05-13-2025 Cee Everett LPN - 05/13/2025 9:30 AM KEVIN Harvey - 05/03/2025 2:50 PM EDTSmary jo Batista LPN - 04/22/2025 11:00 AM KEVIN Harvey - 03/29/2025 3:50 PM EDT Note Date & Type Note Facility 05-13-2025 History of Present illness Narrative Reason for [...] before breakfast, Do not crush or chew. Wrvlxpyn-Jrv-Ei-FA ( 1 + IRON PO) 1 tablet, [...] depression 12/20/2023 Marijuana abuse 04/28/2024 Second trimester ([facility]) 02/22/2025 25 weeks gestation of ([facility]) 02/22/2025 Resolved Ambulatory Problems Diagnosis Date Noted [...] nursing note reviewed. Exam conducted with a translation director present. Vitals: Estimated body mass index is 24.14 kg/m as calculated from the following: Height as of 04/29/24: 5' 2 . Weight as of this encounter: 132 lb. BP: 110/70 Patient's last menstrual period was 08/31/2024. ASSESSMENT & PLAN ICD-10-CM 1. 36 weeks gestation of ([facility]) Z3A.36 POCT urinalysis dipstick manually resulted 2. Third trimester ([facility]) Z34.93 POCT urinalysis dipstick manually resulted CULTURE, GROUP B STREP WITH SUSCEPTIBLITY CULTURE, GROUP B STREP WITH SUSCEPTIBLITY 3. Gastroesophageal reflux in ([facility]) O99.619 K21.9 4. Exposure to STD Z20.2 [...] Demarco Orr DO documented in this encounter [facility] 05-03-2025 History of Present illness Narrative Reason for [...] before breakfast, Do not crush or chew. Ybltfvxy-Lqf-Xr-FA ( 1 + IRON PO) 1 tablet, [...] depression 12/20/2023 Marijuana abuse 04/28/2024 Second trimester ([facility]) 02/22/2025 25 weeks gestation of ([facility]) 02/22/2025 Resolved Ambulatory Problems Diagnosis Date Noted [...] ASSESSMENT & PLAN ICD-10-CM 1. Third trimester ([facility]) Z34.93 POCT urinalysis dipstick manually resulted 2. 35 weeks gestation of ([facility]) Z3A.35 POCT urinalysis dipstick manually resulted Return OB: Patient presents today for a routine obstetrics appointment. Patient is currently 35w0d . Patient states she is doing well but has complaints of being tired due to current . Patient has verbalizes frequent movement. labor precautions was discussed/given and patient was instructed to perform kick counts three times a day. Pt seen at [facility] for contractions. Pt given fluids and stopped lindsey. Pt here for follow up. We will see her in one week for GBS Orders Placed This Encounter Procedures POCT urinalysis dipstick manually resulted Follow Up: Patient is to return to office in 1 week for routine OB appointment. Documented by KEVIN Guevara on behalf of: KEVIN Guevara documented in this encounter [facility] 04-22-2025 History of Present illness Narrative Reason [...] before breakfast, Do not crush or chew. Gjqjfdzo-Bob-Qe-FA ( 1 + IRON PO) 1 tablet, Daily ALLERGIES Allergies Allergen Reactions Tilactase Diarrhea Amoxicillin Unknown PROBLEMS Active Ambulatory Problems Diagnosis Date Noted Anxiety 04/09/2023 Asthma (HCC) 04/09/2023 Gastroesophageal reflux disease without esophagitis 04/09/2023 Left wrist pain 04/09/2023 Multiple joint pain 04/09/2023 PTSD (post-traumatic stress disorder) 12/20/2023 depression 12/20/2023 Marijuana abuse 04/28/2024 Second trimester ([facility]) 02/22/2025 25 weeks gestation of ([facility]) 02/22/2025 Resolved Ambulatory Problems Diagnosis Date Noted [...] nursing note reviewed. Exam conducted with a translation director present. Vitals: Estimated body mass index is 23.5 kg/m as calculated from the following: Height as of 04/29/24: 5' 2 . Weight as of this encounter: 128 lb 8 oz. BP: 102/70 Patient's last menstrual period was 08/31/2024. ASSESSMENT & PLAN ICD-10-CM 1. Third trimester ([facility]) Z34.93 POCT urinalysis dipstick manually resulted 2. 33 weeks gestation of ([facility]) Z3A.33 Patient presents today for a routine obstetrics appointment. Patient is currently 33w3d with a Estimated Date of Delivery: 06/07/25. Patient was considering tubal ligation, but patient and spouse are not sure if they have s completed child-bearing. Discussed senior care management with Mirena IUD & patient will consider Mirena. Patient to return to clinic in 2-3 weeks. Documented by Jennifer Batista LPN on behalf of: Demarco Orr DO documented in this encounter [facility] 03-29-2025 History of Present illness Narrative Reason [...] before breakfast, Do not crush or chew. Cozonmxg-Pom-Fr-FA ( 1 + IRON PO) 1 tablet, Daily ALLERGIES Allergies Allergen Reactions Tilactase Diarrhea Amoxicillin Unknown PROBLEMS Active Ambulatory Problems Diagnosis Date Noted Anxiety 04/09/2023 Asthma (HCC) 04/09/2023 Gastroesophageal reflux disease without esophagitis 04/09/2023 Left wrist pain 04/09/2023 Multiple joint pain 04/09/2023 PTSD (post-traumatic stress disorder) 12/20/2023 depression 12/20/2023 Marijuana abuse 04/28/2024 Second trimester ([facility]) 02/22/2025 25 weeks gestation of ([facility]) 02/22/2025 Resolved Ambulatory Problems Diagnosis Date Noted ADHD (attention deficit hyperactivity disorder) 12/20/2023 Past Medical History: Diagnosis Date Acid reflux Allergies Episodic tension type headache Fractured nose HISTORY PAST MEDICAL HISTORY SOCIAL HISTORY Past Medical History: Diagnosis Date Acid reflux ADHD (attention deficit hyperactivity disorder) 12/20/2023 Allergies Asthma ([facility]) Episodic tension type headache Fractured nose Social [...] ASSESSMENT & PLAN ICD-10-CM 1. Third trimester ([facility]) Z34.93 POCT urinalysis dipstick manually resulted 2. 30 weeks gestation of ([facility]) Z3A.30 Return OB: Patient presents today for [...] routine OB appointment. documented in this encounter [facility] 02-22-2025 History of Present illness Narrative Reason for Appointment: Patient ID: Dawn Major is a 24 y.o. female who presents for No chief complaint on file. Patient presents today for Return OB appointment. MEDICATIONS Current Outpatient Medications Medication Instructions albuterol HFA 90 mcg/act inhaler 2 puffs, Inhalation, Every 4 hours PRN Vvkuzdio-Ciw-Wz-FA ( 1 + IRON PO) 1 tablet, Daily ALLERGIES Allergies Allergen Reactions Tilactase Diarrhea Amoxicillin Unknown Milk (Cow) Unknown PROBLEMS Active Ambulatory Problems Diagnosis Date Noted Anxiety 04/09/2023 Asthma ([facility]) 04/09/2023 Gastroesophageal reflux disease without esophagitis 04/09/2023 Left wrist pain 04/09/2023 Multiple joint pain 04/09/2023 PTSD (post-traumatic stress disorder) 12/20/2023 depression 12/20/2023 Marijuana abuse 04/28/2024 Second trimester ([facility]) 02/22/2025 25 weeks gestation of ([facility]) 02/22/2025 Resolved Ambulatory Problems Diagnosis Date Noted [...] nursing note reviewed. Exam conducted with a translation director present. Vitals: Estimated body mass index is 20.58 kg/m as calculated from the following: Height as of 04/29/24: 5' 2 . Weight as of 01/25/25: 112 lb 8 oz. BP: Patient's last menstrual period was 08/31/2024. ASSESSMENT & PLAN ICD-10-CM 1. Second trimester ([facility]) Z34.92 POCT urinalysis dipstick manually resulted CBC Glucose tolerance, 1 hour CBC Glucose tolerance, 1 hour 2. 25 weeks gestation of ([facility]) Z3A.25 POCT urinalysis dipstick manually resulted CBC [...] routine OB appointment. documented in this encounter [facility] 01-30-2025 Radiology Diagnostic study note [facility] [place] [address] Ultrasound Report Signed Patient: Dawn Major MR#: [id number] : 2000 Acct:[id number] Age/Sex: 24 / F ADM Date: 5 Loc: ER Room: Type: [facility] ER Attending Dr: Ordering Provider: Vipin [...] Gonzales M.D. 02/02/2025 12:17 PM Dictation Location: [place] [address] Tech: Alice García Transcribed By: SHERINE 02/02/25 1217 Dictated By: Arvin Gonzales MD 02/02/25 1216 Signed By: 02/02/25 1217 [facility] Work Phone: 01-25-2025 History of Present illness Narrative Reason for Appointment: Patient ID: Dawn Major is a 24 y.o. female who presents for Routine Visit Patient presents today for Return OB appointment. MEDICATIONS Current Outpatient Medications Medication Instructions albuterol HFA 90 mcg/act inhaler 2 puffs, Inhalation, Every 4 hours PRN Sceezxrt-Bzb-Bh-FA ( 1 + IRON PO) 1 tablet, Daily ALLERGIES Allergies Allergen Reactions Tilactase Diarrhea Amoxicillin Unknown Milk (Cow) Unknown PROBLEMS Active Ambulatory Problems Diagnosis Date Noted Anxiety 04/09/2023 Asthma 04/09/2023 Gastroesophageal reflux disease without esophagitis 04/09/2023 Left wrist pain 04/09/2023 Multiple joint pain 04/09/2023 PTSD (post-traumatic stress disorder) ([facility]) 12/20/2023 depression ([facility]) 12/20/2023 Marijuana abuse 04/28/2024 Resolved Ambulatory Problems Diagnosis Date Noted ADHD (attention deficit hyperactivity disorder) ([facility]) 12/20/2023 Past Medical History: Diagnosis Date Acid reflux Allergies Episodic tension type headache Fractured nose HISTORY PAST MEDICAL HISTORY SOCIAL HISTORY Past Medical History: Diagnosis Date Acid reflux ADHD (attention deficit hyperactivity disorder) ([facility]) 12/20/2023 Allergies Asthma Episodic tension type headache [...] nursing note reviewed. Exam conducted with a translation director present. Vitals: Estimated body mass index is [...] Susan Troy NP documented in this encounter [facility] 12-07-2024 History of Present illness Narrative Reason [...] joint pain 04/09/2023 PTSD (post-traumatic stress disorder) ([facility]) 12/20/2023 depression ([facility]) 12/20/2023 Marijuana abuse 04/28/2024 Resolved Ambulatory Problems Diagnosis Date Noted ADHD (attention deficit hyperactivity disorder) ([facility]) 12/20/2023 Past Medical History: Diagnosis Date Acid reflux Allergies Episodic tension type headache Fractured nose HISTORY PAST MEDICAL HISTORY SOCIAL HISTORY Past Medical History: Diagnosis Date Acid reflux ADHD (attention deficit hyperactivity disorder) ([facility]) 12/20/2023 Allergies Asthma Episodic tension type headache [...] nursing note reviewed. Exam conducted with a translation director present. Vitals: Estimated body mass index is [...] or undercooked meat, and stay away from [facility]. Patient has been consulted regarding any further do's and don'ts of . Patient voiced understanding and all questions and concerns were answered. Follow Up: Patient is to return in 4 weeks for routine OB appointment. Documented by Jennifer Batista LPN on behalf of: Demarco Orr DO documented in this encounter [facility] 11-05-2024 History of Present illness Narrative Reason [...] Problems Diagnosis Date Noted Anxiety 04/09/2023 Asthma ([facility]) 04/09/2023 Gastroesophageal reflux disease without esophagitis 04/09/2023 Left wrist pain 04/09/2023 Multiple joint pain 04/09/2023 PTSD (post-traumatic stress disorder) ([facility]) 12/20/2023 depression ([facility]) 12/20/2023 Marijuana abuse 04/28/2024 Resolved Ambulatory Problems Diagnosis Date Noted ADHD (attention deficit hyperactivity disorder) ([facility]) 12/20/2023 Past Medical History: Diagnosis Date Acid [...] or undercooked meat, and stay away from [facility]. Patient has also been advised to not change litter boxes and eat 6 small meals a day. Patient has been consulted regarding the do's and don'ts of . Patient was given labs and all questions and concerns were answered. Patient was given [place] labs to have completed and to schedule [...] Cee Everett LPN documented in this encounter [facility] 08-25-2024 History of Present illness Narrative Images from the original note were not included. [address] , [address] [facility], [address] P: [phone] F: [phone] HPI Historian of HPI: patient Dawn Major [...] call with results when available. Follow-up with SPECIAL EDUCATION PROFESSOR - hCG, quantitative, documented in this encounter [facility] 08-02-2024 History of Present illness Narrative Images from the original note were not included. [address], [address] [facility], [address] P: [phone] F: [phone] HPI Historian of HPI: patient Dawn Major [...] Final PERFORMING LAB: 07/24/2022 see note Final [facility] - [address] [place] [address] ,Ext. [phone] ASSESSMENT & PLAN: Assessment & Plan Viral URI with cough Symptoms and time course consistent with viral URI. Reviewed [id number] symptomatic treatments, including NSAIDs/acetaminophen for fever and myalgias, decongestants, nasal sprays and ample hydration. Advised patient return to clinic if symptoms suddenly worsen or do not improve after 7-10 days of symptoms. Provided reassurance. Carlos Zaragoza MD, IBCLC [facility] documented in this encounter [facility] 04-29-2024 History of Present illness Narrative Images from the original note were not included. SUBJECTIVE: Dawn Major is a 24 y.o. female presents with chief complaint of No chief complaint on file. Pt presents to discuss an increase in her anxiety, possibility of undiagnosed bipolar, would like a referral to an community administrator to test to see if she might be allergic to some types of foods, and to do a follow up for her ER visit on 04-17-24. This was due to stomach issues with the possibility of either a stomach bug or the flu. Review of Systems: Review of Systems Problem List: Patient Active Problem List Diagnosis Anxiety Asthma ([facility]) Gastroesophageal reflux disease without esophagitis Left wrist pain Multiple joint pain PTSD (post-traumatic stress disorder) ([facility]) depression ([facility]) Marijuana abuse Past Medical History: Past Medical History: Diagnosis Date Acid reflux ADHD (attention deficit hyperactivity disorder) ([facility]) 12/20/2023 Allergies Asthma ([facility]) Episodic tension type headache Fractured nose Family [...] for this visit: PTSD (post-traumatic stress disorder) ([facility]) Patient advised to return if symptoms worsen and/or persist despite treatment. - citalopram (CeleXA) 10 MG tablet; Take 1 tablet (10 mg) by mouth Daily Bipolar 1 disorder ([facility]/HCC) - ARIPiprazole (Abilify) 5 MG tablet; Take [...] tablet, Rfl: 0 documented in this encounter [facility] 09-28-2023 Hospital Discharge instructions Additional Instructions Use albuterol inhaler 2 puffs every 4-6 hours if needed for wheezing or shortness of breath Zofran for nausea vomiting Push fluids Rest Good handwashing Steroids as directed Take antibiotics as instructed until gone Return here if you have any shortness of breath, chest pain, vomiting unable to keep anything down, or any other concerns [facility] Work Phone: 09-10-2023 Procedure note [facility] 07-11-2023 Evaluation note Encounter Date Diagnosis Assessment Notes Jul, Diarrhea (ICD-10 - R19.7) Jul, Weight loss (ICD-10 - R63.4) [facility] Other 09-25-2023 History and physical note Author Jordi Seals [facility] June 03, 2023 9:43am Note Date/Time June 03, 2023 9:43am [facility] [address] [place] [address] Gastroenterology H&P Signed Patient: Dawn Major MR#: [id number] : 2000 Acct:[id number] Age/Sex: 23 / F Adm Date: 3 Loc: Room: Type: [facility] Attending Dr: Jordi Seals MD Copies to: [...] <Electronically signed by Jordi Seals MD> 06/03/[address] [facility] Work Phone: [phone]) 992-573509-25-2023 [facility]* Encounter Date Diagnosis Assessment Notes Treatment Notes Treatment Clinical Notes Apr, Diarrhea (ICD-10 - R19.7) Patient was seen in the ER and was advise by ER to see air traffic control specialist Patient will have labs done ordered today Apr, Unintentional weight loss (ICD-10 - R63.4) Patient is to have a colonoscopy that it will be scheduled today prep instructions given in office today Risks and benefits of procedure explained to patient; patient verbalizes understanding. [facility] Other 02-28-2023 Hospital Discharge instructions Follow Up Care 11/06/2022 13:26:54 With:Kayy Fontana MD, [facility] Address: [address] [place], [place] [address]- [phone] When: only if needed [facility] + [facility] Evaluation noteNo assessment information available [facility] Work Phone: Evaluiaddd note* Diagnosis Viral URI with cough- Primary [facility] Diagnosis PTSD (post-traumatic stress disorder) ([facility])- Primary Posttraumatic stress disorder Bipolar 1 disorder ([facility]) Allergic urticaria Marijuana abuse Nondependent cannabis abuse, unspecified Abdominal discomfort Abdominal pain, unspecified site Mild intermittent asthma, unspecified whether complicated ([facility]) [facility] [...] ([facility]HS-HCC) state, incidental 25 weeks gestation of ([facility]) Diabetes mellitus screening Screening for diabetes mellitus Gastroesophageal reflux in ([facility]) [facility]* Diagnosis Size of fetus inconsistent with dates in first trimester ([facility])- Primary Third trimester ([facility]HS-HCC) state, incidental 30 weeks gestation of ([facility]) Gastroesophageal reflux in ([facility]) [facility]* Diagnosis Third trimester ([facility]-HCC) state, incidental 33 weeks gestation of ([facility]) [facility]* Diagnosis Third trimester ([facility]HS-HCC) state, incidental 35 weeks gestation of ([facility]) [facility]* Diagnosis 36 weeks gestation of ([facility]) Third trimester ([facility]HS-HCC) state, incidental Gastroesophageal reflux in ([facility]) Exposure to STD Vaginal discharge Leukorrhea, not specified as infective documented [facility] this encounter [facility] Author Jordi Seals [facility] September 10, 2023 9:00am Note Date/Time September 10, 2023 9: 00am [facility] [address] [place] [address] Gastroenterology H&P Signed Patient: Dawn Major MR#: [id number] : 2000 Acct:[id number] Age/Sex: 23 / F Adm Date: 4 Loc: Room: Type: [facility] Attending Dr: Jordi Seals MD Copies to: [...] Jordi Seals MD> 09/10/[address] [facility] Work Phone: History general Narrative - Reported* Type Description Date Medical History hx of acid reflux Medical History lactose intolerance Surgical History FINGER SURGERY Hospitalization History 2.5 weeks old for milk a [employer] Other Hospital course Narrative No data available for this section [facility] Hospital Discharge instructions Additional Instructions [...] vomiting or any other concerns [facility] Work Phone: Hospital Discharge instructions Additional [...] 45 -Follow up with PCP. -Office number [phone]. [facility] Work Phone: Hospital Discharge instructions Additional [...] in the office as scheduled -Office number [phone]. [facility] Work Phone: Hospital Discharge instructions Additional Instructions Follow-up with mental health Return to ED if develop worsening symptoms or [facility] Work Phone: Hospital Discharge instructions Additional Instructions Will go to the OB floor for further evaluation and monitoring.[facility] Work Phone: Progress note No data available for this section [facility] Reason for referral (narrative) , [facility] please Referred by: Kayy Fontana MD [facility] Summary Purpose Family History Relationship [...] Abd pain MHP Chief Complaint Admit Date MHP June 29, 2024 1 0:34am BH June 29, 2024 3 :39pm lightheaded, nausea September 03, 2024 6:13pm right shoulder pain/injury September 21, 2024 8:31pm Chief Complaint Admit Date chest pain January 30, 2025 8:15a m Unknown January 30, 2025 10:52 am Additional Source Comments INFORMATION SOURCE (unrecogn ized section and content) DATE CREATED AUTHOR 08/07/2022 [facility] DATE CREATED AUTHOR AUTHOR'S ORGANIZ ATION 11/15/2022 [facility] DATE CREATED AUTHOR AUTHOR'S ORGANIZ ATION 03/27/2025 [facility] DATE CREATED AUTHOR AUTHOR'S ORGANIZ ATION 05/04/2025 [facility] EPIC Care Teams (unrecognized sec tion and content) Fare Collector Relationship Specialty Start Date End Date Diego Araya DO [address] [facility] [address] [place] [address] PCP - General Family Medicine 04/09/23 Diego Araya DO [address] [facility] [address] [place] [address] PCP - [facility] 06/09/24 Team Status: Active Member Role Status Dates Divina Araya DO Primary Care Provider Active Team Status: Inactive Member Role Status Dates Divina Araya DO Primary Care Provider Active Vivian Nieto , MACHINE PACKAGE SEALER- Emergency Provider Active Goals (unrecognized section and [...] BE BASED ON THE PRIMARY CLINICAL RECORDS. [email or web address] [facility]. provides no warranty or guarantee of the accuracy or completeness of information in this document.
== END 2025-05-13 14:41 | disposition home or self-care (01) ==
LOC: LAB 14:40
PROVIDERS: PCP Family Medicine; Visit Provider Obstetrics & Gynecology
DX: Z34.93 Encounter for supervision of normal pregnancy, unspecified, third trimester (principal); Z3A.36 36 weeks gestation of pregnancy
CPT/HCPCS: 87081

== ENCOUNTER 2025-05-18 11:36 | Observation (INO) | payer OTHER, SELFPAY ==
--- OUTSIDE RECORDS SUMMARY | 2025-05-13 09:30 | XMS_ITS | Encounter Summary ---
Author Organization [facility] Address [address] [place] [address] Care Team Providers Care Associate Professor Of Management Name Role Phone Diego Araya DO Primary Care Provider [phone] Diego Araya DO Unavailable [phone] Reason for Visit * Reason Comments Routine Visit Encounter Details Date Type Department Care Team (Late st Contact Info) Description 05/13/2025 9:30 AM EDT Routine [facility] [address] [place] [address] Demarco Orr DO [address] [place] [address] 36 weeks gestation of ([facility]); Third trimester ([facility]); Gastroesophageal reflux in ([facility]); Exposure to STD; Vaginal discharge Social History [...] before breakfast, Do not crush or chew. Tuepdwyc-Mda-Ap-FA ( 1 + IRON PO) 1 tablet, [...] depression 12/20/2023 Marijuana abuse 04/28/2024 Second trimester ([facility]) 02/22/2025 25 weeks gestation of ([facility]) 02/22/2025 Resolved Ambulatory Problems Diagnosis Date Noted [...] nursing note reviewed. Exam conducted with a home security alarm installer present. Vitals: Estimated body mass index is 24.14 kg/m?? as calculated from the following: Height as of 04/29/24: 5' 2 . Weight as of this encounter: 132 lb. BP: 110/70 Patient's last menstrual period was 08/31/2024. ASSESSMENT & PLAN ICD-10-CM 1. 36 weeks gestation of ([facility]) Z3A.36 POCT urinalysis dipstick manually resulted 2. Third trimester ([facility]) Z34.93 POCT urinalysis dipstick manually resulted CULTURE, GROUP B STREP WITH SUSCEPTIBLITY CULTURE, GROUP B STREP WITH SUSCEPTIBLITY 3. Gastroesophageal reflux in ([facility]) O99.619 K21.9 4. Exposure to STD Z20.2 [...] Care Team (Late st Contact Info) Description 05/25/2025 10:10 AM EDT Routine [facility] [address] [place] [address] Demarco Orr DO [address] [place] [address] Scheduled Orders Name Type Priority Associated Diagnoses Order Schedule CULTURE, GROUP B STREP WITH SUSCEPTIBLITY Lab Routine Third trimester ([facility]) Expected: 05/13/2025, Expires: 05/13/2026 SURESWAB(R) ADVANCED VAGINITIS [...] 10:22 AM EDT 36 weeks gestation of ([facility]) Third trimester ([facility]) documented in this encounter Results * POCT [...] Visit Diagnoses Diagnosis 36 weeks gestation of ([facility]) Third trimester ([facility]) state, incidental Gastroesophageal reflux in ([facility]) Exposure to STD Vaginal discharge Leukorrhea, not specified as infective documented in this encounter Care Teams Associate Professor Of Management Relationship Specialty Start Date End Date Diego Araya DO [address] [place] [address] PCP - General Family Medicine 04/09/23 Diego Araya DO [address] [place] [address] PCP - [facility] 06/09/24 documented as of this encounter
--- OUTSIDE RECORDS SUMMARY | 2025-05-18 10:30 | XMS_ITS | Encounter Summary ---
Author Organization [facility] Address [address] [place] [address] Care Team Providers Care Mayonnaise Mixer Name Role Phone Diego Araya DO Primary Care Provider [phone] Diego Araya DO Unavailable [phone] Reason for Visit * Reason Comments Routine Visit Encounter Details Date Type Department Care Team (Late st Contact Info) Description 05/18/2025 10:30 AM EDT Routine [facility] [address] [place] [address] Demarco Orr DO [address] [facility] [facility] [address] Lily Ziegler, [id number] Third trimester ([facility]); 37 weeks gestation of ([facility]) Social History Tobacco Use Types Packs/Day Years [...] Sign Reading Time Taken Comments Blood Pressure 110/68 05/18/2025 10:49 AM EDT Pulse - - Temperature - - Respiratory Rate - - Oxygen Saturation - - Inhaled Oxygen Concentration - - Weight 60.8 kg (134 lb) 05/18/2025 10:49 AM EDT Height - - Body Mass Index 24.51 04/29/2024 3:45 PM EDT documented in this encounter Plan of Treatment Upcoming Encounters Date Type Department Care Team (Late st Contact Info) Description 05/25/2025 10:10 AM EDT Routine [facility] [address] [place] [address] Demarco Orr DO [address] [facility] [place] [address] documented as of this encounter Procedures Procedure Name Priority Date/Time Associated Diagnosis Comments POCT URINALYSIS DIPSTICK Routine 05/18/2025 10:50 AM EDT Third trimester ([facility]) documented in this encounter Results * POCT urinalysis dipstick manually resulted (05/18/2025 10:50 AM EDT) Color, UA Yellow Clarity, UA [...] Nitrite, UA Negative Negative - Positive Urine 05/18/2025 10:5 0 AM EDT Demarco Orr DO POINT OF CARE TEST ENTER/EDIT OR DERABLES Final Result documented in this encounter Visit Diagnoses Diagnosis Third trimester ([facility]) state, incidental 37 weeks gestation of ([facility]) documented in this encounter Care Teams Mayonnaise Mixer Relationship Specialty Start Date End Date Diego Araya DO [address] [place] [address] PCP - General Family Medicine 04/09/23 Diego Araya DO [address] [place] [address] PCP - [facility] 06/09/24 documented as of this encounter
--- OUTSIDE RECORDS SUMMARY | 2025-05-18 11:41 | XMS_ITS | Encounter Summary ---
Author Organization [facility] Address [address] [place] [address] Care Team Providers Care Extrusion Engineer Name Role Phone Diego Araya DO Primary Care Provider Diego Araya DO Unavailable [phone] Encounter Details Date Type Department Care Team (Late st Contact Info) Description 05/14/2025 Abstract [facility] [address] [place] [address] Eileen Koehler MA Social History Tobacco [...] Info) Description 05/25/2025 10:10 AM EDT Routine [facility] [address] [place] [address] Demarco Orr DO [address] [place], [place] [id number] documented as of this encounter Visit Diagnoses Not on filedocumented in this encounter Care Teams Extrusion Engineer Relationship Specialty Start Date End Date Diego Araya DO [address] [place] [address] PCP - General Family Medicine 04/09/23 Diego Araya DO [address] [place] [address] PCP - [facility] 06/09/24 documented as of this encounter
--- OUTSIDE RECORDS SUMMARY | 2025-05-18 11:41 | XMS_ITS | Encounter Summary ---
Author Organization [facility] Address [address] [place] [address] Care Team Providers Care Furniture And Bedding Inspector Name Role Phone Quiana Diego Artis DO Primary Care Provider [phone] Diego Araya DO Unavailable [phone] Encounter Details Date Type Department Care Team (Late Contact Info) Description 01/27/2025 Abstract [facility] [address] [place] [address] Demarco Orr DO [address] [place], [facility]11 Social History Tobacco Use Types [...] Department Care Team (Late Contact Info) Description 05/25/2025 10:10 AM EDT Routine [facility] [address] [place] [address] Demarco Orr DO [address] [place] [address] [place] [address] documented as of this encounter Visit Diagnoses Not on filedocumented in this encounter Care Teams Furniture And Bedding Inspector Relationship Specialty Start Date End Date Diego Araya DO [address] [place] [address] PCP - General Family Medicine 04/09/23 Diego Araya DO [address] [place] [address] PCP - [facility] 06/09/24 documented as of this encounter
--- OUTSIDE RECORDS SUMMARY | 2025-05-18 11:41 | XMS_ITS | Encounter Summary ---
Author Organization [facility] Address [address] [place] [address] Care Team Providers Care Advertising Director Name Role Phone QuianaDiego Steff DOBBINS Primary Care Provider [phone] DerianDiego tabares DO Unavailable [phone] Encounter Details Date Type Department Care Team (Late Contact Info) Description 02/09/2025 Orders Only [facility] [address] [place] [address] Cee Everett LPN [address] JERRY [facility]11 Social History Tobacco Use Types [...] Description 05/25/2025 10:10 AM EDT Routine [facility] [address] [place] [address] Demarco Orr DO [address] [place] [address] Dr [place] [id number] documented as of this encounter Procedures Procedure Name Priority Date/Time Associated Diagnosis Comments PAP SMEAR Routine 01/25/2025 12:00 AM EDT documented in this encounter Results * Pap Smear (01/25/2025 12:00 AM EDT) Swab Cervical swab / Unknown Kirby Nurse [facility] LAB CYTOLOGY ORDERABLES Final Result EXTERNAL LAB documented in this encounter Visit Diagnoses Not on filedocumented in this encounter Care Teams Advertising Director Relationship Specialty Start Date End Date Diego Araya DO [address] [place] [address] PCP - General Family Medicine 04/09/23 Diego Araya DO [address] [place] [address] PCP - [facility] 06/09/24 documented as of this encounter
--- OUTSIDE RECORDS SUMMARY | 2025-05-18 11:41 | XMS_ITS | Encounter Summary ---
Author Organization [facility] Address [address] [facility] [place] [address] Care Team Providers Care Filleter Name Role Phone Diego Araya DO Primary Care Provider [phone] Diego Araya DO Unavailable [phone] Encounter Details Date Type Department Care Team (Late Contact Info) Description 01/27/2025 Abstract [facility] [place] [facility] [address] [place] [phone] Diego Araya DO [address] [place], [place] [id number] Social History Tobacco Use Types Packs/Day Years [...] AM EDT Routine [facility] [address] [place] [address] Demarco Orr DO [address] [place] [address] [place] [address] documented as of this encounter Visit Diagnoses Not on filedocumented in this encounter Care Teams Filleter Relationship Specialty Start Date End Date Diego Araya DO [address] [place] [address] PCP - General Family Medicine 04/09/23 Diego Araya DO [address] [place] [address] PCP - [facility] 06/09/24 documented as of this encounter
--- OUTSIDE RECORDS SUMMARY | 2025-05-18 11:41 | XMS_ITS | Encounter Summary ---
Author Organization [facility] Address [address] [place] [address] Care Team Providers Care Feeder/Folder Name Role Phone Quiana Diego Artis DO Primary Care Provider [phone] DerianDiego tabares DO Unavailable [phone] Encounter Details Date Type Department Care Team (Late Contact Info) Description 05/13/2025 Bamboo flowsheet [facility] [address] [place] [address] Demarco Orr DO [address] [place], [facility]11 Social History Tobacco [...] 05/25/2025 10:10 AM EDT Routine [facility] [address] [place] [address] Demarco Orr DO [address] [place] [address] [place] [address] documented as of this encounter Visit Diagnoses Not on filedocumented in this encounter Care Teams Feeder/Folder Relationship Specialty Start Date End Date Diego Araya DO [address] [place] [address] PCP - General Family Medicine 04/09/23 Diego Araya DO [address] [place] [address] PCP - [facility] 06/09/24 documented as of this encounter
--- OUTSIDE RECORDS SUMMARY | 2025-05-18 11:41 | XMS_ITS | Clinical Summary ---
Author Organization [facility] Address [address] [place] [address] Care Team Providers Care Customer Services Manager Name Role Phone Diego Araya DO Primary Care Provider [phone] Diego Araya DO Unavailable [phone] Allergies Active Allergy Reactions Criticality Noted Date Comments Amoxicillin Unknown 04/09/2023 Other Reaction(s): Unknown Reaction Milk (Cow) Unknown 04/17/2024 Other Reaction(s): Unknown Reaction Tilactase Diarrhea High 05/31/2020 Medications albuterol HFA 90 mcg/act inhalerIndicatio ns:Mild intermittent asthma, unspecified whether complicated (HCC) Inhale 2 puffs every 4 (four) hours if needed for wheezing or shortness of breath 18 g 3 4 Active Arxthuss-Ubr-Lm- FA ( 1 + IRON PO) Take 1 tablet by mouth Daily Active fluticasone (Flonase) 50 MCG/ACT nasal spray Administer 2 sprays into each nostril Daily 5 Active omeprazole (PriLOSEC) [address] capsuleIndicatio ns:Gastroesophag eal Reflux Disease,Heartbur n Take 1 capsule (20 mg) by mouth in the morning. Take before meals. Do not crush or chew. 30 capsule 3 5 Active metroNIDAZOLE (Flagyl) 500 MG tabletIndication s:BV (bacterial vaginosis) Take 1 tablet (500 mg) by mouth in the morning and 1 tablet (500 mg) before bedtime. Do all this for 7 days. Do not drink alcohol while taking this medication. 14 tablet 025 Discontin ued(Thera py completed ) Active Problems Problem Noted Date Diagnosed Date Second trimester ([facility]) 02/22/2025 25 weeks gestation of ([facility]) 2024 Marijuana abuse 04/28/2024 PTSD (post-traumatic [...] Encounters Date Type Department Care Team Description 05/18/2025 10:30 [place] [address] Demarco Orr DO Third trimester ([facility]); 37 weeks gestation of ([facility]) 05/18/2025 [place] [address] Demarco Orr DO 05/14/2025 [place] [address] Eileen Koehler MA 05/14/2025 [place] [address] Eileen Koehler MA 05/13/2025 9:30 AM [place] [address] Demarco Orr DO 36 weeks gestation of ([facility]); Third trimester ([facility]); Gastroesophageal reflux in ([facility]); Exposure to STD; Vaginal discharge 05/13/2025 External Result Encounter [facility] External Department Unsolicited Demarco Orr DO 05/13/2025 [place] [address] Demarco Orr, 05/03/2025 2:50 [place] [address] Cira Chairez PA Third trimester ([facility]); 35 weeks gestation of ([facility]) 05/03/2025 [place] [address] Cira Chairez PA 04/22/2025 11:00 [place] [address] Demarco Orr, Third trimester ([facility]); 33 weeks gestation of ([facility]) 04/22/2025 10:30 AM [place] [address] Size of fetus inconsistent with dates in first trimester ([facility]) 03/29/2025 3:50 [place] [address] Cira Chairez PA Size of fetus inconsistent with dates in first trimester ([facility]) (Primary Dx); Third trimester ([facility]); 30 weeks gestation of ([facility]); Gastroesophageal reflux in ([facility]) 03/29/2025 Clinisync Result Encounter NOMS External Department Unsolicited Provider, Generic External Data 03/29/2025 [place] [address] Cira Chairez PA 03/17/2025 Abstract [facility] [address] [facility] [place] [address] Eileen Koehler MA 03/01/2025 Patient Outreach [facility] [address] [place] [address] Cira Figueroa LPN 02/25/2025 Telephone [facility] [address] [place] [address] Mo Boucher, NEIL ER Follow-up 02/24/2025 Abstract [facility] [address] [place] [address] Diego Araya DO 02/22/2025 1:50 PM EDT Routine [facility] [address] [place] [address] Demarco Orr DO Second trimester ([facility]); 25 weeks gestation of ([facility]); Diabetes mellitus screening; Gastroesophageal reflux in ([facility]) 02/22/2025 Bamboo flowsheet [facility] [address] [facility] [place] [address] Demarco Orr DO from Last 3 Months [...] Pressure 110/68 05/18/2025 10:49 AM EDT Pulse 92 08/25/2024 3:22 PM EST Temperature 36.5 C (97.7 F) 08/25/2024 3:22 PM EST Respiratory Rate - - Oxygen Saturation 99% 08/25/2024 3:22 PM EST Inhaled Oxygen Concentration - - Weight 60.8 kg (134 lb) 05/18/2025 10:49 AM EDT Height 157.5 cm (5' 2 ) 04/29/2024 3:45 PM EDT Body Mass Index 24.51 04/29/2024 3:45 PM EDT Plan of Treatment Upcoming Encounters Date Type Department Care Team (Late st Contact Info) Description 05/25/2025 10:10 AM EDT Routine [facility] [address] [place] [address] Demarco Orr, [address] [place] [address] Health Maintenance Due Date Last Done Comments Influenza Vaccine (#1) 2025 06/02/2015 Procedures Procedure Name Priority Date/Time Associated Diagnosis Comments POCT URINALYSIS DIPSTICK Routine 05/18/2025 10:50 AM EDT Third trimester ([facility]) RECURRENT VAGINITIS (HTRX) Routine 05/13/2025 11:42 AM EDT POCT URINALYSIS DIPSTICK Routine 05/13/2025 10:22 AM EDT 36 weeks gestation of ([facility]) Third trimester ([facility]) POCT URINALYSIS DIPSTICK Routine 05/03/2025 3:52 PM EDT Third trimester ([facility]) 35 weeks gestation of ([facility]) POCT URINALYSIS DIPSTICK Routine 04/22/2025 11:03 AM EDT Third trimester ([facility]) US OB FOLLOW UP TRANSABDOMINAL APPROACH Routine 04/22/2025 10:46 AM EDT Size of fetus inconsistent with dates in first trimester ([facility]) MLR HEMOGLOBIN A1C Routine 03/29/2025 4: 39 PM EDT ALL CBC WITH AUTO DIFF Routine 4:39 PM EDT POCT URINALYSIS DIPSTICK Routine 03/29/2025 3:59 PM EDT Third trimester ([facility]) POCT URINALYSIS DIPSTICK Routine 02/22/2025 2:20 PM EDT Second trimester ([facility]) 25 weeks gestation of ([facility]) from Last 3 Months Results * POCT urinalysis dipstick manually resulted (05/18/2025 10:50 AM EDT) Only the most recent of6 resultswithin the time period is included. Color, [...] Urine 05/18/2025 10:5 0 AM EDT Demarco Kirby DO POINT OF CARE TEST ENTER/EDIT OR DERABLES Final Result * (ABNORMAL) RECURRENT VAGINITIS (HTRX) (05/13/2025 11:42 AM EDT) ATOPOBIUM VAGINAE 24.999(A) 19.961 - 24.689 ppm 05/14/2025 6:40 AM EDT [facility] ATOPOBIUM VAGINAE Detected(A) 19.961 - 24.689 ppm 05/14/2025 6:40 AM EDT [facility] BVAB 2,3 (BACTERIAL VAGINOSIS ASSOCIATED BACTERIA 2, 3); MOBILUNCUS SPP 0 19.961 - 24.689 ppm 05/14/2025 6:40 AM EDT [facility] BVAB 2,3 (BACTERIAL VAGINOSIS ASSOCIATED BACTERIA 2, 3); MOBILUNCUS SPP Not Detected 19.961 - 24.689 ppm 05/14/2025 6:40 AM EDT [facility] MARILYNN ALBICANS, PARAPSILOSIS, TROPICALIS 0 23.000 - 30.347 ppm 05/14/2025 6:40 AM EDT [facility] MARILYNN ALBICANS, PARAPSILOSIS, TROPICALIS Not Detected 23.000 - 30.347 ppm 05/14/2025 6:40 AM EDT [facility] MARILYNN GLABRATA 0 23.000 - 31.618 ppm 05/14/2025 6:40 AM EDT [facility] MARILYNN GLABRATA Not Detected 23.000 - 31.618 ppm 05/14/2025 6:40 AM EDT [facility] MARILYNN KRUSEI 0 23.000 - 30.873 ppm 05/14/2025 6:40 AM EDT [facility] MARILYNN KRUSEI Not Detected 23.000 - 30.873 ppm 05/14/2025 6:40 AM EDT [facility] CHLAMYDIA TRACHOMATIS 0 23.000 - 31.586 ppm 05/14/2025 6:40 AM EDT [facility] CHLAMYDIA TRACHOMATIS Not Detected 23.000 - 31.586 ppm 05/14/2025 6:40 AM EDT [facility] GARDNERELLA VAGINALIS 26.902(A) 19.961 - 24.689 ppm 05/14/2025 6:40 AM EDT [facility] GARDNERELLA VAGINALIS Detected(A) 19.961 - 24.689 ppm 05/14/2025 6:40 AM EDT [facility] MEGASPHAERA (TYPES 1, 2) 0 19.961 - 24.689 ppm 05/14/2025 6:40 AM EDT [facility] MEGASPHAERA (TYPES 1, 2) Not Detected 19.961 - 24.689 ppm 05/14/2025 6:40 AM EDT [facility] NEISSERIA GONORRHOEAE 0 23.000 - 32.587 ppm 05/14/2025 6:40 AM EDT [facility] NEISSERIA GONORRHOEAE Not Detected 23.000 - 32.587 ppm 05/14/2025 6:40 AM EDT [facility] TRICHOMONAS VAGINALIS 0 23.000 - 31.995 ppm 05/14/2025 6:40 AM EDT [facility] TRICHOMONAS VAGINALIS Not Detected 23.000 - 31.995 ppm 05/14/2025 6:40 AM EDT [facility] MYCOPLASMA GENITALIUM 0 19.961 - 24.689 ppm 05/14/2025 6:40 AM EDT [facility] MYCOPLASMA GENITALIUM Not Detected 19.961 - 24.689 ppm 05/14/2025 6:40 AM EDT [facility] Tissue 05/13/2025 11:4 2 AM EDT 05/14/2025 1:52 AM EDT us Demarco Kirby DO LAB BLOOD ORDERABLES Final Resul t [facility] [address] [address] * US OB follow up transabdominal approach [...] BY: ELECTRONICALLY SIGNED BY: Zev Wilde MD Cira BROWN IMG OB US PROCEDURES Final Resul t * MLR HEMOGLOBIN A1C (03/29/2025 4:39 PM EDT) GLYCOHEMOGLOBIN A1C 5.0 4.5 - 6.2 % TB Comment: ADA RECOMMENDED LIMIT 4.0 - 6.0 ADA THERAPEUTIC TARGET < 7.0 ACTION SUGGESTED > 7.0 ESTIMATED AVERAGE GLUCOSE 97 mg/dL TBH 03/29/2025 4:39 PM EDT 03/29/2025 4:41 PM EDT Narrative [facility] - 03/29/2025 5:03 PM EDT us Cira COPELAND Final Result [facility] TB * (ABNORMAL) ALL CBC WITH AUTO DIFF (03/29/2025 4:39 PM EDT) TBH WBC 11.7(H) 4.0 - 11.0 10 3/uL TBH TBH RBC 3.79(L) 4.20 - 5.40 10 6/uL TBH TBH HGB 11.1(L) 12.0 - 16.0 g/dL TBH TBH HCT 33.8(L) 36.0 - 48.0 % TBH TBH MCV 89.2 81.0 - 99.0 fL TBH TBH MCH 29.3 26.7 - 34.0 pg TBH TBH MCHC 32.8 29.9 - 35.2 g/dL TBH TBH RDW 12.8 11.0 - 15.0 % TBH [...] PM EDT Cira BROWN [facility] Final Result MIN [facility]H from Last 3 Months Insurance [employer] Care Teams Customer Services Manager Relationship Specialty Start Date End Date Diego Araya DO [address] [place] [address] PCP - General Family Medicine 04/09/23 Diego Araya DO [address] [place] [address] PCP - [facility] 06/09/24
--- OUTSIDE RECORDS SUMMARY | 2025-05-18 11:41 | XMS_ITS | Encounter Summary ---
Author Organization [facility] Address [address] [place] [address] Care Team Providers Care Parent Aide Name Role Phone Quiana Diego Artis DO Primary Care Provider [phone] Diego Araya DO Unavailable [phone] Encounter Details Date Type Department Care Team (Late Contact Info) Description 12/04/2024 Abstract [facility] [address] [place] [address] Demarco Orr DO [address], [id number] Social History Tobacco Use Types Packs/Day Years [...] [place] [address] Demarco Orr DO [address] [place] [address] [place] [address] documented as of this encounter Visit Diagnoses Not on filedocumented in this encounter Care Teams Parent Aide Relationship Specialty Start Date End Date Diego Araya DO [address] [place] [address] PCP - General Family Medicine 04/09/23 Diego Araya DO [address] [place] [address] PCP - [facility] 06/09/24 documented as of this encounter
--- OUTSIDE RECORDS SUMMARY | 2025-05-18 11:41 | XMS_ITS | Encounter Summary ---
Author Organization [facility] Address [address] [place] [address] Care Team Providers Care Drive Tester Name Role Phone Sherice Camarillo SPIRITUAL CARE COORDINATOR Unavailable Diego Araya DO Primary Care Provider Diego Araya DO Unavailable Martin Phipps Unavailable Diego Araya DO Unavailable [phone] Vicky Robles LPN Unavailable Unavailable Encounter Details Date Type Department Care Team (Late st Contact Info) Description 03/14/2023 Abstract [facility] [address] [place] [address] Demarco Orr DO [address] [place], [facility]11 Social History [...] 10:10 AM EDT Routine [facility] [address] [place] [address] Demarco Orr DO [address] [place] [address] documented as of this encounter Visit Diagnoses Not on filedocumented in this encounter Care Teams Drive Tester Relationship Specialty Start Date End Date Sherice Camarillo, SPIRITUAL CARE COORDINATOR [address] [place] [address] PCP - [facility] 03/09/23 Diego Araya DO [address] [place] [address] PCP - General Family Medicine 04/09/23 Diego Araya DO [address] [place] [address] PCP - [facility] 12/09/23 Martin Phipps PA [address] [place] [address] PCP - [facility] 03/09/24 Diego Araya DO [address] [place] [address] PCP - [facility] 06/09/24 Vicky Robles LPN Licensed Practical Nurse Family Medicine 10/01/2410/08 documented as of this encounter
--- OUTSIDE RECORDS SUMMARY | 2025-05-18 11:41 | XMS_ITS | Encounter Summary ---
Author Organization [facility] Address [address] [place] [address] Care Team Providers Care Learning Engineer Name Role Phone Diego Araya DO Primary Care Provider [phone] Diego Araya DO Unavailable [phone] Encounter Details Date Type Department Care Team (Late Contact Info) Description 11/05/2024 Abstract [facility] [address] [place] [address] Demarco Orr DO [address] [place], [facility]11 Social History Tobacco Use Types Packs/Day [...] EDT Routine [facility] [address] [place] [address] Demarco Orr DO [address] [place] [address] [place] [address] documented as of this encounter Visit Diagnoses Not on filedocumented in this encounter Care Teams Learning Engineer Relationship Specialty Start Date End Date Diego Araya DO [address] [place] [address] PCP - General Family Medicine 04/09/23 Diego Araya DO [address] [place] [address] PCP - [facility] 06/09/24 documented as of this encounter
--- OUTSIDE RECORDS SUMMARY | 2025-05-18 11:41 | XMS_ITS | Encounter Summary ---
Author Organization [facility] Address [address] [place] [address] Care Team Providers Care Pants Closer Name Role Phone Diego Araya DO Primary Care Provider Diego Araya DO Unavailable [phone] Encounter Details Date Type Department Care Team (Late Contact Info) Description 02/24/2025 Abstract [facility] [place] [facility] [address] [place] [phone] Diego Araya DO [address] [place], [place] [id number] Social History Tobacco Use Types Packs/Day Years [...] Description 05/25/2025 10:10 AM EDT Routine [facility] [place] [facility] [address] [place] [address] Demarco Orr DO [address] [place] [address] [place] [address] documented as of this encounter Visit Diagnoses Not on filedocumented in this encounter Care Teams Pants Closer Relationship Specialty Start Date End Date Diego Araya DO [address] [place] [address] PCP - General Family Medicine 04/09/23 Diego Araya DO [address] [place] [address] PCP - [facility] 06/09/24 documented as of this encounter
--- OUTSIDE RECORDS SUMMARY | 2025-05-18 11:41 | XMS_ITS | Encounter Summary ---
Author Organization [facility] Address [address] [place] [address] Care Team Providers Care Water Quality Tester Name Role Phone Quiana Diego Artis DO Primary Care Provider [phone] DerianDiego tabares DO Unavailable [phone] Encounter Details Date Type Department Care Team (Late Contact Info) Description 05/18/2025 Bamboo flowsheet [facility] [address] [place] [address] Demarco Orr DO [address] [place], [facility]11 Social History Tobacco Use Types Packs/Day Years [...] Routine [facility] [address] [place] [address] Demarco Orr DO [address] [place] [address] [place] [address] documented as of this encounter Visit Diagnoses Not on filedocumented in this encounter Care Teams Water Quality Tester Relationship Specialty Start Date End Date Diego Araya DO [address] [place] [address] PCP - General Family Medicine 04/09/23 Diego Araya DO [address] [place] [address] PCP - [facility] 06/09/24 documented as of this encounter
--- OUTSIDE RECORDS SUMMARY | 2025-05-18 11:41 | XMS_ITS | Patient Health Record ---
Author Organization [employer] [facility] [employer] [employer]ic es Address [address] [place] [address] Care Team Providers Care Hand Fretted Instrument Maker Name Role Phone Toy Tee Primary Care Provider Reason For Referral No Information Plan Of Treatment No Information Insurance Providers Payer Name Payer Address Payer Phone Subscriber Number Group Number Insured Name Patient Relationship to Insured Coverage Start Date Coverage End Date Dental [place] [employer] [address] [address] [place] [address] [id number] KATHY MAJOR Self - patient is the insured 3 Dental W[employer] [facility] [place] [address] [place] [phone] [id number] KATHY MAJOR Self - patient is the insured 3
--- OUTSIDE RECORDS SUMMARY | 2025-05-18 11:41 | XMS_ITS | Encounter Summary ---
Author Organization [facility] Address [address] [place] [address] Care Team Providers Care Director Media Name Role Phone Diego Araya DO Primary Care Provider [phone] Diego Araya DO Unavailable [phone] Encounter Details Date Type Department Care Team (Late st Contact Info) Description 05/14/2025 Telephone [facility] [address] [place] [address] [place] [address] Eileen Koehler MA Social History Tobacco Use [...] on file documented as of this encounter Miscellaneous Notes * Telephone Encounter - Eileen Koehler MA - 05/14/2025 11:08 AM EDT Pt notified of results and recommendations. [facility] Confirmed, med sent documented in this encounter Plan of Treatment Upcoming Encounters Date Type Department Care Team (Late st Contact Info) Description 05/25/2025 10:10 AM EDT Routine [facility] [address] [facility] [place] [address] Demarco Orr DO [address] [facility] [place] [address] documented as of this encounter Visit Diagnoses Diagnosis BV (bacterial vaginosis) Unspecified vaginitis and vulvovaginitis documented in this encounter Care Teams Director Media Relationship Specialty Start Date End Date Diego Araya DO [address] [facility] [address] [place] [address] PCP - General Family Medicine 04/09/23 Diego Araya DO [address] [place] [address] PCP - [facility] 06/09/24 documented as of this encounter
--- OUTSIDE RECORDS SUMMARY | 2025-05-18 11:41 | XMS_ITS | Encounter Summary ---
Author Organization [facility] Address [address] [facility] [facility] [address] [place] [address] Care Team Providers Care Personal Injury Attorney Name Role Phone Sherice Camarillo NP Unavailable [phone] Diego Araya DO Primary Care Provider [phone] Diego Araya DO Unavailable [phone] Martin Phipps Unavailable Diego Araya DO Unavailable [phone] Vicky Robles LPN Unavailable Unavailable Encounter Details Date Type Department Care Team (Late st Contact Info) Description 06/03/2023 Orders Only [facility] [place] [facility] [address] [facility] [address] [place] [address] A, Unknown Practice [address] [place], [place] [address] Social History Tobacco Use Types Packs/Day Years [...] 10:10 AM EDT Routine [facility] [address] [place] [address] [place] [address] Demarco Orr DO [address] [facility] [place] [address] documented as of this encounter Procedures Procedure Name Priority Date/Time Associated Diagnosis Comments COLONOSCOPY DIAGNOSTIC Routine 06/03/2023 10:43 AM EDT documented in this encounter Results * COLONOSCOPY DIAGNOSTIC (06/03/2023 10:43 AM EDT) Anatomical Region Laterality Modality Radiographic Erica ging us Unknown Practice A IMG XR PROCEDURES Final Resul t documented in this encounter Visit Diagnoses Not on filedocumented in this encounter Care Teams Personal Injury Attorney Relationship Specialty Start Date End Date Sherice Camairllo, RED [address] [place] [address] PCP - [facility] 03/09/23 Diego Araya DO [address] [place] [address] PCP - General Family Medicine 04/09/23 Diego Araya DO [address] [place] [address] PCP - [facility] 12/09/23 Martin Phipps PA [address] [place] [address] PCP - [facility] 03/09/24 Diego Araya DO [address] [place] [address] PCP - [facility] 06/09/24 Vicky Robles LPN Licensed Practical Nurse Family Medicine 10/01/2410/08 documented as of this encounter
--- OUTSIDE RECORDS SUMMARY | 2025-05-18 11:41 | XMS_ITS | Encounter Summary ---
Author Organization [facility] Address [address] [place] [address] Care Team Providers Care Barrel Stave Inspector Name Role Phone Diego Araya DO Primary Care Provider [phone] Diego Araya DO Unavailable [phone] Encounter Details Date Type Department Care Team (Late st Contact Info) Description 03/17/2025 Abstract [facility] [address] [facility] [place] [address] Eileen Koehler MA Social History Tobacco [...] 10:10 AM EDT Routine [facility] [address] [facility] [place] [address] Demarco Orr DO [address] [place], [place] [address] documented as of this encounter Visit Diagnoses Not on filedocumented in this encounter Care Teams Barrel Stave Inspector Relationship Specialty Start Date End Date Diego Araya DO [address] [place] [address] PCP - General Family Medicine 04/09/23 Diego Araya DO [address] [place] [address] PCP - [facility] 06/09/24 documented as of this encounter
--- OUTSIDE RECORDS SUMMARY | 2025-05-18 11:41 | XMS_ITS | Encounter Summary ---
Author Organization [facility] Address [address] [facility] [place] [address] Care Team Providers Care Laboratory Equipment Cleaner Name Role Phone Sherice Camarillo NP Unavailable [phone] Diego Araya DO Primary Care Provider Diego Araya DO Unavailable [phone] Martin Phipps Unavailable Diego Araya DO Unavailable [phone] Vicky Robles LPN Unavailable Unavailable Encounter Details Date Type Department Care Team (Late st Contact Info) Description 09/10/2023 Orders Only [facility] [place] [facility] [address] [address] [place] [phone] A, Unknown Practice [address] [phone] Social History Tobacco Use Types Packs/Day Years [...] 10:10 AM EDT Routine [facility] [address] [place] [address] Demarco Orr DO [address] [place] [address] [place] [address] documented as of this encounter Procedures Procedure Name Priority Date/Time Associated Diagnosis Comments ESOPHAGOSCOPY Routine 09/10/2023 12:55 PM EST documented in this encounter Results * Esophagoscopy (09/10/2023 12:55 PM EST) Anatomical Region Laterality Modality Endoscopy us Unknown Practice A ENDOSCOPY PROCEDURE ORDERABLE S Final Result documented in this encounter Visit Diagnoses Not on filedocumented in this encounter Care Teams Laboratory Equipment Cleaner Relationship Specialty Start Date End Date Sherice Camarillo NP [address] [place] [address] PCP - [facility] 03/09/23 Diego Araya DO [address] [place] [address] PCP - General Family Medicine 04/09/23 Diego Araya DO [address] [place] [address] PCP - [facility] 12/09/23 Martin Phipps PA [address] [place] [address] PCP - [facility] 03/09/24 Diego Araya DO [address] [place] [address] PCP - [facility] 06/09/24 Vicky Robles LPN Licensed Practical Nurse Family Medicine 10/01/2410/08 documented as of this encounter
--- OUTSIDE RECORDS SUMMARY | 2025-05-18 11:41 | XMS_ITS | Encounter Summary ---
Author Organization [facility] Address [address] [place] [address] Care Team Providers Care Product Lead Name Role Phone Sherice Camarillo TRUCK TECHNICIAN Unavailable [phone] Diego Araya DO Primary Care Provider Diego Araya DO Unavailable [phone] Martin Phipps Unavailable Diego Araya DO Unavailable Vicky Robles LPN Unavailable Unavailable Encounter Details Date Type Department Care Team (Late st Contact Info) Description 08/21/2023 Abstract [facility] [place] [facility] [address] [place] [address] Diego Araya DO [address] [facility] [address] [place], [place] [id number] Social History Tobacco Use Types Packs/Day Years [...] AM EDT Routine [facility] [address] [facility] [place] [address] Demarco Orr DO [address] [facility] [place] [address] documented as of this encounter Visit Diagnoses Not on filedocumented in this encounter Care Teams Product Lead Relationship Specialty Start Date End Date Sherice Camarillo, TRUCK TECHNICIAN [address] [place] [address] PCP - [facility] 03/09/23 Diego Araya DO [address] [place], [facility] PCP - General Family Medicine 04/09/23 Diego Araya DO [address] [place], [facility] PCP - [facility] 12/09/23 Martin Phipps PA [address] [place] [address] PCP - [facility] 03/09/24 Diego Araya DO [address] [place] [address] PCP - [facility] 06/09/24 Vicky Robles LPN Licensed Practical Nurse Family Medicine 10/01/2410/08 documented as of this encounter
--- OUTSIDE RECORDS SUMMARY | 2025-05-18 11:41 | XMS_ITS | Encounter Summary ---
Author Organization [facility] Address [address] [place] [address] Care Team Providers Care Surgical Coordinator Name Role Phone Sherice Camarillo PASSENGER TIRE INSPECTOR Unavailable Diego Araya DO Primary Care Provider Diego Araya DO Unavailable Martin Phipps Unavailable Diego Araya DO Unavailable [phone] Vicky Robles LPN Unavailable Unavailable Encounter Details Date Type Department Care Team (Late st Contact Info) Description 03/06/2023 Abstract [facility] [address] [place] [address] Demarco Orr DO [address] [place] [address] [place], [facility]11 Social History Tobacco Use Types [...] 10:10 AM EDT Routine [facility] [address] [facility] [place] [address] Demarco Orr DO [address] [place] [address] documented as of this encounter Visit Diagnoses Not on filedocumented in this encounter Care Teams Surgical Coordinator Relationship Specialty Start Date End Date Sherice Camarillo, PASSENGER TIRE INSPECTOR [address] [place] [address] PCP - [facility] 03/09/23 Diego Araya DO [address] [place] [address] PCP - General Family Medicine 04/09/23 Diego Araya DO [address] [place] [address] PCP - [facility] 12/09/23 Martin Phipps PA [address] [place] [address] PCP - [facility] 03/09/24 Diego Araya DO [address] [place] [address] PCP - [facility] 06/09/24 Vicky Robles LPN Licensed Practical Nurse Family Medicine 10/01/2410/08 documented as of this encounter
--- OUTSIDE RECORDS SUMMARY | 2025-05-18 11:41 | XMS_ITS | Encounter Summary ---
Author Organization [facility] Address [address] [place] [address] Care Team Providers Care Hr Intern Name Role Phone Quiana Diego Artis DO Primary Care Provider [phone] Diego Araya DO Unavailable [phone] Encounter Details Date Type Department Care Team (Late Contact Info) Description 12/10/2024 Abstract [facility] [address] [place] [address] Demarco Orr DO [address] [place], [facility]11 Social History Tobacco Use Types Packs/Day [...] EDT Routine [facility] [address] [place] [address] Demarco Orr DO [address] [place] [address] [place] [address] documented as of this encounter Visit Diagnoses Not on filedocumented in this encounter Care Teams Hr Intern Relationship Specialty Start Date End Date Diego Araya DO [address] [place] [address] PCP - General Family Medicine 04/09/23 Diego Araya DO [address] [place] [address] PCP - [facility] 06/09/24 documented as of this encounter
--- OUTSIDE RECORDS SUMMARY | 2025-05-18 11:41 | XMS_ITS | Continuity of Care Document ---
Author Organization [facility] Address [address] [place] [address] Phone [phone] Care Team Providers Care Sales Merchandising Specialist Name Role Phone Kayy Fontana MD Care Team Information Casiei eunice Unavailable SYED KAMARA MD Care Team Information Rece iver Unavailable Kayy Fontana MD Primary Care Physician Unav ailable Allergies and adverse reactions Active Allergies Criticality Reaction Severity Comments Date Amoxicillin Unable to assess criticality Weal (disorder) 11/15/2022
--- OUTSIDE RECORDS SUMMARY | 2025-05-18 11:41 | XMS_ITS | Encounter Summary ---
Author Organization [facility] Address [address] [place] [address] Care Team Providers Care Painter Hand Name Role Phone Diego Araya DO Primary Care Provider [phone] Diego Araya DO Unavailable [phone] Encounter Details Date Type Department Care Team (Late Contact Info) Description 11/05/2024 Abstract [facility] [address] [place] [address] Demarco Orr DO [address] [place], [facility]11 Social History Tobacco Use Types Packs/Day [...] EDT Routine [facility] [address] [place] [address] Demarco Orr DO [address] [place] [address] [place] [address] documented as of this encounter Visit Diagnoses Not on filedocumented in this encounter Care Teams Painter Hand Relationship Specialty Start Date End Date Diego Araya DO [address] [place] [address] PCP - General Family Medicine 04/09/23 Diego Araya DO [address] [place] [address] PCP - [facility] 06/09/24 documented as of this encounter
--- OUTSIDE RECORDS SUMMARY | 2025-05-18 11:41 | XMS_ITS | Encounter Summary ---
Author Organization [facility] Address [address] [place] [address] Care Team Providers Care Hand Upper And Bottom Lacer Name Role Phone Quiana Diego Artis DO Primary Care Provider [phone] Diego Araya DO Unavailable [phone] Encounter Details Date Type Department Care Team (Late Contact Info) Description 05/13/2025 External Result Encounter [facility] Unsolicited Demarco Orr DO [address] [place] [address] Social History Tobacco Use Types Packs/Day Years [...] AM EDT Routine [facility] [address] [place] [id number] Demarco Orr DO [address], [place] [id number] documented as of this encounter Procedures Procedure Name Priority Date/Time Associated Diagnosis Comments RECURRENT VAGINITIS (HTRX) Routine 05/13/2025 11:42 AM EDT documented in this encounter Results * (ABNORMAL) RECURRENT VAGINITIS (HTRX) (05/13/2025 11:42 AM EDT) [facility] ATOPOBIUM VAGINAE 24.999(A) 19.961 - 24.689 ppm 05/14/2025 6:40 AM EDT [facility] ATOPOBIUM VAGINAE Detected(A) 19.961 - 24.689 ppm 05/14/2025 6:40 AM EDT [facility] BVAB 2,3 (BACTERIAL VAGINOSIS ASSOCIATED BACTERIA 2, 3); MOBILUNCUS SPP 0 19.961 - 24.689 ppm 05/14/2025 6:40 AM EDT [facility] BVAB 2,3 (BACTERIAL VAGINOSIS ASSOCIATED BACTERIA 2, 3); MOBILUNCUS SPP Not Detected 19.961 - 24.689 ppm 05/14/2025 6:40 AM EDT [facility] MARILYNN ALBICANS, PARAPSILOSIS, TROPICALIS 0 23.000 - 30.347 ppm 05/14/2025 6:40 AM EDT [facility] MARILYNN ALBICANS, PARAPSILOSIS, TROPICALIS Not Detected 23.000 - 30.347 ppm 05/14/2025 6:40 AM EDT [facility] MARILYNN GLABRATA 0 23.000 - 31.618 ppm 05/14/2025 6:40 AM EDT [facility] MARILYNN GLABRATA Not Detected 23.000 - 31.618 ppm 05/14/2025 6:40 AM EDT [facility] MARILYNN KRUSEI 0 23.000 - 30.873 ppm 05/14/2025 6:40 AM EDT [facility] MARILYNN KRUSEI Not Detected 23.000 - 30.873 ppm 05/14/2025 6:40 AM EDT [facility] CHLAMYDIA TRACHOMATIS 0 23.000 - 31.586 ppm 05/14/2025 6:40 AM EDT [facility] CHLAMYDIA TRACHOMATIS Not Detected 23.000 - 31.586 ppm 05/14/2025 6:40 AM EDT [facility] GARDNERELLA VAGINALIS 26.902(A) 19.961 - 24.689 ppm 05/14/2025 6:40 AM EDT [facility] GARDNERELLA VAGINALIS Detected(A) 19.961 - 24.689 ppm 05/14/2025 6:40 AM EDT [facility] MEGASPHAERA (TYPES 1, 2) 0 19.961 - 24.689 ppm 05/14/2025 6:40 AM EDT [facility] MEGASPHAERA (TYPES 1, 2) Not Detected 19.961 - 24.689 ppm 05/14/2025 6:40 AM EDT [facility] NEISSERIA GONORRHOEAE 0 23.000 - 32.587 ppm 05/14/2025 6:40 AM EDT [facility] NEISSERIA GONORRHOEAE Not Detected 23.000 - 32.587 ppm 05/14/2025 6:40 AM EDT [facility] TRICHOMONAS VAGINALIS 0 23.000 - 31.995 ppm 05/14/2025 6:40 AM EDT [facility] TRICHOMONAS VAGINALIS Not Detected 23.000 - 31.995 ppm 05/14/2025 6:40 AM EDT [facility] MYCOPLASMA GENITALIUM 0 19.961 - 24.689 ppm 05/14/2025 6:40 AM EDT [facility] MYCOPLASMA GENITALIUM Not Detected 19.961 - 24.689 ppm 05/14/2025 6:40 AM EDT [facility] Tissue 05/13/2025 11:4 2 AM EDT 05/14/2025 1:52 AM EDT Demarco Kirby DO LAB BLOOD ORDERABLES Final Resul t [facility] [address] [place] [address] documented in this encounter Visit Diagnoses Not on filedocumented in this encounter Care Teams Hand Upper And Bottom Lacer Relationship Specialty Start Date End Date Diego Araya DO [address] [place] [address] PCP - General Family Medicine 04/09/23 Diego Araya DO [address] [place] [address] PCP - [facility] 06/09/24 documented as of this encounter
--- OUTSIDE RECORDS SUMMARY | 2025-05-18 11:47 | XMS_ITS | CCD ---
Author Organization [facility] Care Team Providers Care Medical Accounting Clerk Name Role Phone KIRBY, DR REA Consulting [...] KIRBY, DR REA Admitting Unavailable WEST, DR YENIN Calderon Consulting Unavailable REQUEST, DR NORIEGA LISTED [...] Unavaila ble KIRBY, DR REA Attending Unavailable KRIBY, DR REA Admitting Unavailable Felisha Fontanaeti Attending Unavailable DO Divina Araya Primary Care Provider [phone] [facility] Vivian Ayala Emergency Provider Bozena Imad Unavailable DO Divina Araya Primary Care Provider MD Jordi Seals Attending Provider [phone] DO Divina Araya Primary Care Provider MD Jordi Seals Attending Provider DO Divina Araya Primary Care Provider MD Jordi Seals Attending Provider VANESSA Robesron Emergency Provider DO Sedrick Wells Emergency Provider [phone] DO Divina Araya Primary Care Provider [phone] MIGUEL Phipps Emergency Provider DO Paramjit Yanes Emergency Provider Diego Araya DO Primary Care Provider Diego Araya DO Unavailable [phone] Martin Paige Unavailable Paramjit Yanes DO Emergency [...] ZARAGOZA Attending Unavailable ANUM CODY Attending Unavailable KIRBY, DEMARCO Attending Unavailable CIRA CHAIREZ Attending Unavailable DEMARCO ORR Attending Unavailable Allergies Allergy Classification Reported Allergen(s) Allergy Type Date of Onset Reaction(s) Facility (6 sources) Amoxicillin Drug Allergy 4 Unknown Reaction [facility] (8 sources) Milk Drug allergy (disorder) 4 Unknown, Unknown Reaction [facility] (20 sources) Amoxicillin; Translations: [amoxicillin] Drug Allergy 3 Weal (disorder), Unknown [facility] (20 sources) Cow milk Allergy to substance 4 Unknown [facility] (20 sources) Lactase Drug Allergy 0 Diarrhea [facility] (1 source) Amoxicillin Drug Allergy 5 [facility] (1 source) Milk Drug allergy (disorder) 5 [facility] Medications Current Medications Medication Drug Class(es) Dates Sig (Normalized) Sig (Original) [id number] 200 actuat albuterol 0.09 mg/actuat metered dose inhaler (20 sources) beta2-Adrenergic Agonist Start: 12-20-2023 take 2 puff(s) by inhalation every four hours for wheezing albuterol HFA 90 mcg/act inhaler Indications: Mild intermittent asthma, unspecified whether complicated ([facility]) Inhale 2 puffs every 4 (four) [...] MG tablet Indications: PTSD (post-traumatic stress disorder) ([facility]) Take 1 tablet (10 mg) by mouth [...] 2020 6:28pm metroNIDAZOLE 500 mg oral tablet (13 sources) Nitroimidazole Antimicrobial Start: 05-14-2025 End: 05-21-2025 take 1 tablet by mouth in the morning metroNIDAZOLE (Flagyl) 500 MG tablet Indications: BV (bacterial vaginosis) Take 1 tablet (500 mg) by mouth in the morning and 1 tablet (500 mg) before bedtime. Do all this for 7 days. Do not drink alcohol while taking this medication. 14 tablet 05/14/2025 05/21/2025 Active Start: 07-29-2020 End: 10-12-2020 take 1 tablet by mouth three times daily Metronidazole 500 mg tablet Discontinued 500 MG PO Three times daily July 29, 2020 1:00am October 12, 2020 6:28pm [place] (No Known Home Meds) (5 sources) Start: 06-29-2024 [place] (No Kn own Home Meds) Active June 29, 2024 12:00am Start: 01-18-2023 [place] (No Kn own Home Meds) Active January 17, 2023 11:00pm Start: 01-18-2023 [place] (No Kn own Home Meds) Active January [...] January 30, 2025 12:00am polyethylene glycol 3350 [id number] mg / potassium chloride 2970 mg / sodium bicarbonate 6740 mg / sodium chloride 5860 mg / sodium sulfate 20073 mg powder for oral solution (2 sources) Osmotic Laxative Start: 04-25-2023 take 236 g by mouth once Golytely 236 GM as directed Orally once for 1 days Apr, Active Vlwppjzp-Oor-Kl-FA ( 1 + IRON PO) (20 sources) Xwvfjhya-Jnm-Tw-FA ( 1 + IRON PO) Take 1 [...] 21, 2024 1:00am January 30, 2025 11:20am naproxen 500 mg oral tablet (3 sources) [...] tablet,disintegrating Discontinued 4 MG PO Q8H 9 3 September 28, 2023 1:00am April 17, 2024 [...] 28, 2023 1:00am October 13, 2023 2:14pm Prenat.Vits,Maximo,Ath-Mxbd-Nlg ic ( Vitamin) Tablet (12 sources) Start: 01-29-2021 End: 12-29-2022 take 1 tablet by mouth once daily Prenat.Vits,Maximo,One-Bmyx-Gtbto ( Vitamin) Tablet Discontinued 1 TAB PO Daily January 28, 2021 11:00pm December 29, 2022 11:53am Start: 01-29-2021 End: 12-29-2022 take 1 tablet by mouth once daily Prenat.Vits,Maximo,Xwe-Tfqb-Jfcij ( Vitamin) Tablet Discontinued 1 TAB PO [...] applicable or unspecified; Translations: [MAT CARE OTH NC FTL GRTH 3RD TM UNS] Onset: 2 [...] of ] 01-25-2025 Episodic Residual codes; unclassified (18 sources) Gestation period, 25 weeks; Translations: [25 [...] Interpretation Reference Range Facility RECURRENT VAGINITIS (HTRX)on 05-14-2025 ATOPOBIUM VAGINAE 24.999 Abnormal [facility] ATOPOBIUM VAGINAE Detected Abnormal [facility] BVAB 2,3 (BACTERIAL VAGINOSIS ASSOCIATED BACTERIA 2, 3); MOBILUNCUS SPP 0 [facility] BVAB 2,3 (BACTERIAL VAGINOSIS ASSOCIATED BACTERIA 2, 3); MOBILUNCUS SPP Not detected [facility] [place] ALBICANS, PARAPSILOSIS, TROPICALIS 0 [facility] MARILYNN ALBICANS, PARAPSILOSIS, TROPICALIS Not detected [facility] [place] GLABRATA 0 [facility] [place] GLABRATA Not detected [facility] [place] KRUSEI 0 [facility] [place] KRUSEI Not detected [facility] CHLAMYDIA TRACHOMATIS 0 [facility] CHLAMYDIA TRACHOMATIS Not detected [facility] GARDNERELLA VAGINALIS 26.902 Abnormal [facility] GARDNERELLA VAGINALIS Detected Abnormal [facility] Interpretation and review of laboratory results Abnormal [facility] MEGASPHAERA (TYPES 1, 2) 0 [facility] MEGASPHAERA (TYPES 1, 2) Not detected [facility] MYCOPLASMA GENITALIUM 0 [facility] MYCOPLASMA GENITALIUM Not detected N [facility] NEISSERIA GONORRHOEAE 0 [facility] NEISSERIA GONORRHOEAE Not detected N [facility] TRICHOMONAS VAGINALIS 0 [facility] TRICHOMONAS VAGINALIS Not detected N [facility] Healthcare [facility] Urinalysis macro (dipstick) panel (U)on 05-13-2025 Bilirubin, UA Negative Negative - 4(70) +++ mg/dL [facility] Blood, UA Negative Negative - 50 Regino/mcL [facility] Healthcare Clarity, UA Clear [facility] Color, UA Yellow [facility] Glucose, UA Negative Negative - 1999(110) ++++ mg/dL [facility] Interpretation and review of laboratory results Normal [facility] Ketones, UA Negative Negative - 160(16) ++++ mg/dL [facility] Leukocytes, UA Negative Negative - 500+++ Dara/mcL [facility] Nitrite, UA Negative Negative - Positive [facility] pH, UA 7.5 5 - 9 [facility] Protein, UA Negative Negative - 1999(20) ++++ mg/dL [facility] Spec Grav, UA 1.015 1 - 1.03 [facility] Urobilinogen, UA 1.0 0.2 - 12 mg/dL [facility] Urinalysis macro (dipstick) panel (U)on 05-03-2025 Bilirubin, UA Negative Negative - 4(70) +++ mg/dL [facility] Blood, UA Negative Negative - 50 Regino/mcL [facility] Healthcare Clarity, UA Clear [facility] Color, UA Yellow [facility] Glucose, UA Negative Negative - 1999(110) ++++ mg/dL [facility] Interpretation and review of laboratory results Normal [facility] Ketones, UA Negative Negative - 160(16) ++++ mg/dL [facility] Leukocytes, UA Negative Negative - 500+++ Dara/mcL [facility] Nitrite, UA Negative Negative - Positive [facility] pH, UA 6.5 5 - 9 [facility] Protein, UA Negative Negative - 1999(20) ++++ mg/dL [facility] Spec Grav, UA 1.01 1 - 1.03 [facility] Urobilinogen, UA 1.0 0.2 - 12 mg/dL [facility] US OB FOLLOW UP TRANSABDOMIN AL APPROACHon [...] UA Negative Negative - 4(70) +++ mg/dL [facility] Blood, UA Negative Negative - 50 Regino/mcL [facility] Clarity, UA Clear [facility] Color, UA Yellow [facility] Glucose, UA Negative Negative - 2000(110) ++++ mg/dL [facility] Interpretation and review of laboratory results Normal [facility] Ketones, UA Negative Negative - 160(16) ++++ mg/dL [facility] Leukocytes, UA Negative Negative - 500+++ Dara/mcL [facility] Nitrite, UA Negative Negative - Positive [facility] pH, UA 7 5 - 9 [facility] Protein, UA Negative Negative - 2000(20) ++++ mg/dL [facility] Spec Grav, UA 1.015 1 - 1.03 [facility] Urobilinogen, UA 0.2 0.2 - 12 mg/dL [facility] ALL CBC WITH AUTO DIFFon BASOPHILS ABSOLUTE AUTO 0 N [facility] Basophils/100 WBC (Bld) 0.2 % 0.2 - 2.0 % [facility] Eosinophils/100 WBC (Bld) 2.2 % 0.9 - 7.0 % [facility] Erythrocyte distribution width (RBC) [Ratio] 12.8 % 11.0 - 15.0 % [facility] Hematocrit (Bld) [Volume fraction] 33.8 % Low 36.0 - 48.0 % [facility] Hemoglobin (Bld) [Mass/Vol] 11.1 g/dL Low 12.0 - 16.0 g/dL [facility] IMMATURE GRANULOCYTES ABS AUTO 0.1 High [facility] Immature granulocytes/100 WBC (Bld) 0.9 % High 0.0 - 0.5 % [facility] Interpretation and review of laboratory results Abnormal [facility] LYMPHOCYTES ABSOLUTE AUTO 1.7 [facility] Lymphocytes/100 WBC (Bld) 14.7 % Low 20.5 - 60.0 % [facility] MCH (RBC) [Entitic mass] 29.3 pg 26.7 - 34.0 pg [facility] MCHC (RBC) [Mass/Vol] 32.8 g/dL 29.9 - 35.2 g/dL [facility] MCV (RBC) [Entitic vol] 89.2 fL 81.0 - 99.0 fL [facility] MONOCYTES ABSOLUTE AUTO 0.6 N [facility] Monocytes/100 WBC (Bld) 4.7 % 1.7 - 12.0 % [facility] NEUTROPHILS ABSOLUTE AUTO 9.1 High [facility] Neutrophils/100 WBC (Bld) 77.3 % High 43.0 - 75.0 % [facility] Platelet mean volume (Bld) [Entitic vol] 9.1 fL Low 9.5 - 13.5 fL [facility] TBH EO # 0.3 [facility] TBH PLT 256 [facility] TB RBC 3.79 Low [facility] TB WBC 11.7 High [facility] Urinalysis macro (dipstick) panel (U)on 03-29-2025 Bilirubin, UA Negative Negative - 4(70) +++ mg/dL [facility] Blood, UA Negative Negative - 50 Regino/mcL [facility] Healthcare Clarity, UA Clear [facility] Healthcare Color, UA Yellow [facility] Glucose, UA Negative Negative - 1999(110) ++++ mg/dL [facility] Interpretation and review of laboratory results Abnormal [facility] Ketones, UA Negative Negative - 160(16) ++++ mg/dL [facility] Leukocytes, UA Negative Negative - 500+++ Dara/mcL [facility] Healthcare Nitrite, UA Negative Negative - Positive [facility] pH, UA 7.5 5 - 9 [facility] Healthcare Protein, UA Trace Negative - 1999(20) ++++ mg/dL [facility] Healthcare Spec Grav, UA 1.01 1 - 1.03 [facility] Urobilinogen, UA 0.2 0.2 - 12 mg/dL [facility] Urinalysis macro (dipstick) panel (U)on 02-22-2025 Bilirubin, UA Negative Negative - 4(70) +++ mg/dL [facility] Blood, UA Negative Negative - 50 Regino/mcL [facility] Healthcare Clarity, UA Clear [facility] Color, UA Yellow [facility] Glucose, UA Negative Negative - 1999(110) ++++ mg/dL [facility] Interpretation and review of laboratory results Normal [facility] Ketones, UA Negative Negative - 160(16) ++++ mg/dL [facility] Leukocytes, UA Negative Negative - 500+++ Dara/mcL [facility] Healthcare Nitrite, UA Negative Negative - Positive [facility] pH, UA 6 5 - 9 [facility] Healthcare Protein, UA Negative Negative - 1999(20) ++++ mg/dL [facility] Healthcare Spec Grav, UA 1.02 1 - 1.03 [facility] Urobilinogen, UA 0.2 0.2 - 12 mg/dL [facility] Healthcare US venous duplex LE BIon US venous duplex LE BI [facility] [place] [address] Ultrasound Report Signed Patient: Dawn Major MR#: [id number] : 2000 Acct:[id number] Age/Sex: 24 / F ADM Date: 01/30/25 Loc: ER Room: Type: [facility] ER Attending Dr: Ordering Provider: Vipin Stroud [...] Gonzales M.D. 02/02/2025 12:17 PM Dictation Location: [place] [address] Tech: Alice García Transcribed By: SHERINE 02/02/25 1217 Dictated By: Arvin Gonzales MD 02/02/25 1216 Signed By: 02/02/25 1217 Normal [facility] Alanine aminotransferase [En zymatic activity/volume] in Serum or PlasmaOrdered By: Vipin Stroud on 01-30-2025 ALT [Catalytic activity/Vol] Alanine aminotransferase [Enzymatic activity/volume] in Serum or Plasma Low 7-52 [facility] Albumin [Mass/volume] in Ser um or Plasma by Bromocresol green (BCG) dye binding methoOrdered By: Vipin Stroud on 01-30-2025 Albumin BCG dye [Mass/Vol] Albumin [Mass/volume] in Serum or Plasma by Bromocresol green (BCG) dye binding metho 3.5-5.7 [facility] Alkaline phosphatase [Enzyma tic activity/volume] in Serum or PlasmaOrdered By: Vipin Stroud on 01-30-2025 ALP [Catalytic activity/Vol] Alkaline phosphatase [Enzymatic activity/volume] in Serum or Plasma 34-104 [facility] Amphetamine Screen Ql (U)Ord ered By: YAKOV CMDONOUGH on 01-30-2025 Amphetamines Ql (U) Amphetamines screen Negativ e [facility] Appearance of UrineOrdered B y: YAKOV SHARONDA on 01-30-2025 Appearance (U) Urine appearance Clear [facility] Aspartate aminotransferase [ Enzymatic activity/volume] in Serum or PlasmaOrdered By: Vipin Stroud on 01-30-2025 AST [Catalytic activity/Vol] Aspartate aminotransferase [Enzymatic activity/volume] in Serum or Plasma Low 13-39 [facility] Barbiturates [Presence] in U rine by Screen methodOrdered By: YAKOV MCDONOUGH on 01-30-2025 Barbiturates Screen Ql (U) Barbiturates [Presence] in Urine by Screen method Negative [facility] Basic Metabolic Panelon 01-08 Anion gap [Moles/Vol] 9.8 mmol/L Normal 6.0-15.0 [facility] Comment on above: Performed By: #### H S TROP, PTT, HEPATIC, DDIMER, CBC, LIPASE, BMP, PT ####[address] Calcium [Mass/Vol] 8.8 mg/dL Normal 8.6-10.3 [facility] Comment on above: Performed By: #### H S TROP, PTT, HEPATIC, DDIMER, CBC, LIPASE, BMP, PT ####[address] Chloride [Moles/Vol] 105 mmol/L Normal 98-107 [facility] Comment on above: Performed By: #### H S TROP, PTT, HEPATIC, DDIMER, CBC, LIPASE, BMP, PT ####[place] [id number] [facility] CO2 [Moles/Vol] 25.1 mmol/L Normal 21.0-31.0 [facility] Comment on above: Performed By: #### H S TROP, PTT, HEPATIC, DDIMER, CBC, LIPASE, BMP, PT ####[place] [id number] [facility] Creatinine [Mass/Vol] 0.47 mg/dL Low 0.60-1.20 [facility] Comment on above: Performed By: #### H S TROP, PTT, HEPATIC, DDIMER, CBC, LIPASE, BMP, PT ####[address] Creatinine Clr Calc Pharmacy 141.68 Normal [facility] Comment on above: Performed By: #### H S TROP, PTT, HEPATIC, DDIMER, CBC, LIPASE, BMP, PT ####[address] GFR/1.73 sq M.predicted MDRD (S/P/Bld) [Vol rate/Area] mL/min/{1.73_m2} Normal [facility] Comment on above: Performed By: #### H S TROP, PTT, HEPATIC, DDIMER, CBC, LIPASE, BMP, PT ####[address] Glucose [Mass/Vol] 83 mg/dL Normal 70-100 [facility] Comment on above: Result Comment: [facility] Glucose Reference Range is dependent on time and content of last meal. Glucose of more than 200 mg/dL in a nonstressed, ambulatory subject supports the diagnosis of Diabetes Mellitus. ADA recommended reference range Performed By: #### H S TROP, PTT, HEPATIC, DDIMER, CBC, LIPASE, BMP, PT ####[address] Potassium [Moles/Vol] 3.9 mmol/L Normal 3.5-5.1 [facility] Comment on above: Performed By: #### H S TROP, PTT, HEPATIC, DDIMER, CBC, LIPASE, BMP, PT ####[place] [id number] [facility] Sodium [Moles/Vol] 136 mmol/L Normal 136-145 [facility] Comment on above: Performed By: #### H S TROP, PTT, HEPATIC, DDIMER, CBC, LIPASE, BMP, PT ####[address] Urea nitrogen [Mass/Vol] 6 mg/dL Low 7-25 [facility] Comment on above: Performed By: #### H S TROP, PTT, HEPATIC, DDIMER, CBC, LIPASE, BMP, PT ####[facility] [id number] [place] [address] [facility] Basophils Auto (Bld) [#/Vol] Ordered By: Vipin Stroud on 01-30-2025 Basophils (Bld) [#/Vol] Automated basophil count 0.0-0.2 [facility] Basophils/100 WBC Auto (Bld) Ordered By: Vipin Stroud on 01-30-2025 Basophils/100 WBC (Bld) Automated basophil % . [facility] Benzodiazepines Screen Ql (U )Ordered By: YAKOV MCDONOUGH on 01-30-2025 Benzodiazepines Ql (U) Benzodiazepines [ Presence] in Urine by Screen method Negative [facility] Benzoylecgonine [Presence] i n Urine by Screen methodOrdered By: YAKOV MCDONOUGH on 01-30-2025 Benzoylecgonine Screen Ql (U) Benzoylecgonine [Presence] in Urine by Screen method Negative [facility] Bilirubin Test strip Ql (U)O rdered By: YAKOV MCDONOUGH on 01-30-2025 Bilirubin Ql (U) Bilirubin.total [Pre sence] in Urine by Test strip Negative [facility] Bilirubin.direct [Mass/volum e] in Serum or PlasmaOrdered By: Vipin Stroud on 01-30-2025 Bilirubin.direct [Mass/Vol] Bilirubin.direct [Mass/volume] in Serum or Plasma 0.03-0.18 [facility] Bilirubin.total [Mass/volume ] in Serum or PlasmaOrdered By: Vipin Stroud on 01-30-2025 Bilirubin [Mass/Vol] Bilirubin.total [Mass/volume] in Serum or Plasma Low 0.3-1.0 [facility] Calcium [Mass/volume] in Ser um or PlasmaOrdered By: Vipin Stroud on 01-30-2025 Calcium [Mass/Vol] Calcium [Mass/volume ] in Serum or Plasma 8.6-10.3 [facility] Carbon dioxide, total [Moles /volume] in Serum or PlasmaOrdered By: Vipin Stroud on 01-30-2025 CO2 [Moles/Vol] Carbon dioxide, tota l [Moles/volume] in Serum or Plasma 21.0-31.0 [facility] Chloride [Moles/volume] in S isabel or PlasmaOrdered By: Vipin Stroud on 01-30-2025 Chloride [Moles/Vol] Chloride [Moles/vol ume] in Serum or Plasma 98-107 [facility] Color Auto (U)Ordered By: SHAAN MCDONOUGH on 01-30-2025 Color (U) Color of Urine by Auto Yellow [facility] Complete Blood Count Auto Di ffon 01-30-2025 Basophils (Bld) [#/Vol] 0.0 10*3/uL Normal 0.0-0.2 [facility] Comment on above: Result Comment: PERF ORMED BY: [place] [address] PATHOLOGIST FAMILY SERVICE AIDE MARCO GALAVIZ M.D. Performed By: #### H S TROP, PTT, HEPATIC, DDIMER, CBC, LIPASE, BMP, PT #### [address] Basophils/100 WBC (Bld) 0.4 % Normal . [facility] Comment on above: Performed By: #### H S TROP, PTT, HEPATIC, DDIMER, CBC, LIPASE, BMP, PT #### [address] Eosinophils (Bld) [#/Vol] 0.2 10*3/uL Normal 0.0-0.45 [facility] Comment on above: Performed By: #### H S TROP, PTT, HEPATIC, DDIMER, CBC, LIPASE, BMP, PT #### [address] Eosinophils/100 WBC (Bld) 2.1 % Normal . [facility] Comment on above: Performed By: #### H S TROP, PTT, HEPATIC, DDIMER, CBC, LIPASE, BMP, PT #### [address] Erythrocyte distribution width (RBC) [Ratio] 13.7 % Normal 11.9-15.3 [facility] Comment on above: Performed By: #### H S TROP, PTT, HEPATIC, DDIMER, CBC, LIPASE, BMP, PT #### [address] Hematocrit (Bld) [Volume fraction] 36.2 % Normal 34.0-46.4 [facility] Comment on above: Performed By: #### H S TROP, PTT, HEPATIC, DDIMER, CBC, LIPASE, BMP, PT #### [address] Hemoglobin (Bld) [Mass/Vol] 12.7 g/dL Normal 11.8-15.4 [facility] Comment on above: Performed By: #### H S TROP, PTT, HEPATIC, DDIMER, CBC, LIPASE, BMP, PT #### [address] Lymphocytes (Bld) [#/Vol] 1.2 10*3/uL Normal 1.00-4.8 [facility] Comment on above: Performed By: #### H S TROP, PTT, HEPATIC, DDIMER, CBC, LIPASE, BMP, PT #### [address] Lymphocytes/100 WBC (Bld) 12.8 % Normal . [facility] Comment on above: Performed By: #### H S TROP, PTT, HEPATIC, DDIMER, CBC, LIPASE, BMP, PT #### [address] MCH (RBC) [Entitic mass] 30.8 pg Normal 24.7-34.3 [facility] Comment on above: Performed By: #### H S TROP, PTT, HEPATIC, DDIMER, CBC, LIPASE, BMP, PT #### [address] MCV (RBC) [Entitic vol] 87.8 fL Normal 80-100 [facility] Comment on above: Performed By: #### H S TROP, PTT, HEPATIC, DDIMER, CBC, LIPASE, BMP, PT #### [place] [address] [place] Mean Corpuscular HGB Conc 35.1 g/dL High 32.0-35.0 [facility] Comment on above: Performed By: #### H S TROP, PTT, HEPATIC, DDIMER, CBC, LIPASE, BMP, PT #### [facility] [address] Monocytes (Bld) [#/Vol] 0.3 10*3/uL Normal 0.0-0.8 [facility] Comment on above: Performed By: #### H S TROP, PTT, HEPATIC, DDIMER, CBC, LIPASE, BMP, PT #### [address] Monocytes/100 WBC (Bld) 15.98 % Normal 0.00-20.00 [facility] Comment on above: Performed By: #### H S TROP, PTT, HEPATIC, DDIMER, CBC, LIPASE, BMP, PT #### [address] Monocytes/100 WBC (Bld) 3.5 % Normal . [facility] Comment on above: Performed By: #### H S TROP, PTT, HEPATIC, DDIMER, CBC, LIPASE, BMP, PT #### [address] Neutrophils (Bld) [#/Vol] 7.9 10*3/uL High 1.8-7.7 [facility] Comment on above: Performed By: #### H S TROP, PTT, HEPATIC, DDIMER, CBC, LIPASE, BMP, PT #### [address] Neutrophils/100 WBC (Bld) 81.2 % Normal . [facility] Comment on above: Performed By: #### H S TROP, PTT, HEPATIC, DDIMER, CBC, LIPASE, BMP, PT #### [address] NRBC% 0.0 /100{WBC} Normal 0-0.5 [facility] [facility] Comment on above: Performed By: #### H S TROP, PTT, HEPATIC, DDIMER, CBC, LIPASE, BMP, PT #### [facility] [address] Platelet mean volume (Bld) [Entitic vol] 7.4 fL Normal 6.3-10.7 [facility] Comment on above: Performed By: #### H S TROP, PTT, HEPATIC, DDIMER, CBC, LIPASE, BMP, PT #### [address] Platelets (Bld) [#/Vol] 253 10*3/uL Normal 150-450 [facility] Comment on above: Performed By: #### H S TROP, PTT, HEPATIC, DDIMER, CBC, LIPASE, BMP, PT #### [address] RBC (Bld) [#/Vol] 4.12 10*6/uL Normal 3.60-5.00 [facility] Comment on above: Performed By: #### H S TROP, PTT, HEPATIC, DDIMER, CBC, LIPASE, BMP, PT #### [address] WBC (Bld) [#/Vol] 9.7 10*3/uL Normal 3.8-11.6 [facility] Comment on above: Performed By: #### H S TROP, PTT, HEPATIC, DDIMER, CBC, LIPASE, BMP, PT #### [address] Creatinine [Mass/volume] in Serum or PlasmaOrdered By: Vipin Stroud on 01-30-2025 Creatinine [Mass/Vol] Creatinine [Mass/v olume] in Serum or Plasma Low 0.60-1.20 [facility] D-Dimer High Sensitivityon 0 01-30-2025 D-Dimer High Sensitivity 209 ng/mL Normal 0-243 [facility] Comment on above: Result Comment: [...] coagulation studies. Please contact the laboratory at [phone] for redraw instructions. PERFORMED BY: [place] [address] PATHOLOGIST FAMILY SERVICE AIDE MARCO GALAVIZ M.D. Performed By: #### H S TROP, PTT, HEPATIC, DDIMER, CBC, LIPASE, BMP, PT ####[facility] [id number] [place] [id number] [facility] ECG 12 lead ECGon 01-30-2025 ECG 12 lead ECG [facility] [place] [address] Electrocardiograph Report Signed Patient: Dawn Major MR#: [id number] : 2000 Acct:[id number] Age/Sex: 24 / F ADM Date: 01/30/25 Loc: ER Room: Type: [facility] ER Attending Dr: Ordering Provider: Vipin Stroud [...] sinus arrhythmia Confirmed by Vipin Stroud DO ([id number]) on 01/31/2025 6:56:09 AM Referred By: Electronically Signed By: Vipin Stroud DO Transcribed By: MUS Signed By Vipin Stroud DO 0656 Normal [facility] Eosinophils Auto (Bld) [#/Vo l]Ordered By: Vipin Stroud on 01-30-2025 Eosinophils (Bld) [#/Vol] Automated eosinophil count 0.0-0.45 [facility] Eosinophils/100 WBC Auto (Bl d)Ordered By: Vipin Stroud on 01-30-2025 Eosinophils/100 WBC (Bld) Automated eosinophil % . [facility] Erythrocyte distribution wid th Auto (RBC) [Ratio]Ordered By: Vipin Stroud on 01-30-2025 Erythrocyte distribution width (RBC) [Ratio] Erythrocyte distribution width [Ratio] by Automated count 11.9-15.3 [facility] Fibrin D-dimer [Presence] in Platelet poor plasma by Latex agglutinationOrdered By: Vipin Stroud on 01-30-2025 Fibrin D-dimer LA Ql (PPP) Fibrin D-dimer [Presence] in Platelet poor plasma by Latex agglutination 0-243 [facility] Comment on above: The reference range for [...] coagulation studies. Please contact the laboratory at [phone] for redraw instructions. Globulin Calc (S) [Mass/Vol] Ordered By: Vipin Stroud on 01-30-2025 Globulin (S) [Mass/Vol] Serum globulin m easurement by calculation (mass/volume) [facility] Glucose [Mass/volume] in Ser um or PlasmaOrdered By: Vipin Stroud on 01-30-2025 Glucose [Mass/Vol] Glucose [Mass/volume ] in Serum or Plasma 70-100 [facility] Comment on above: ADA recommended [...] [Mass/volume] in Urine by Test strip Normal [facility] Hematocrit Auto (Bld) [Volum e fraction]Ordered By: Vipin Stroud on 01-30-2025 Hematocrit (Bld) [Volume fraction] Hematocrit [Volume Fraction] of Blood by Automated count 34.0-46.4 [facility] Hemoglobin Test strip Ql (U) Ordered By: YAKOV MCDONOUGH on 01-30-2025 Hemoglobin Ql (U) Hemoglobin [Presence ] in Urine by Test strip Negative [facility] Hemoglobin [Mass/volume] in BloodOrdered By: Vipin Stroud on 01-30-2025 Hemoglobin (Bld) [Mass/Vol] Hemoglobin [Mass/volume] in Blood 11.8-15.4 [facility] Hepatic Panelon 01-30-2025 Albumin [Mass/Vol] 3.9 g/dL Normal 3.5-5.7 [facility] Comment on above: Performed By: #### H S TROP, PTT, HEPATIC, DDIMER, CBC, LIPASE, BMP, PT #### [facility] [address] Albumin/Globulin [Mass ratio] 1.3 {ratio} Normal [facility] Comment on above: Performed By: #### H S TROP, PTT, HEPATIC, DDIMER, CBC, LIPASE, BMP, PT #### [facility] [address] ALP [Catalytic activity/Vol] 44 U/L Normal 34-104 [facility] Comment on above: Performed By: #### H S TROP, PTT, HEPATIC, DDIMER, CBC, LIPASE, BMP, PT #### [facility] [address] ALT [Catalytic activity/Vol] 6 U/L Low 7-52 [facility] Comment on above: Performed By: #### H S TROP, PTT, HEPATIC, DDIMER, CBC, LIPASE, BMP, PT #### [address] AST [Catalytic activity/Vol] 12 U/L Low 13-39 [facility] Comment on above: Performed By: #### H S TROP, PTT, HEPATIC, DDIMER, CBC, LIPASE, BMP, PT #### [address] Bilirubin [Mass/Vol] 0.2 mg/dL Low 0.3-1.0 [facility] Comment on above: Performed By: #### H S TROP, PTT, HEPATIC, DDIMER, CBC, LIPASE, BMP, PT #### [address] Bilirubin,Indirect 0.1 mg/dL Normal [facility] Comment on above: Performed By: #### H S TROP, PTT, HEPATIC, DDIMER, CBC, LIPASE, BMP, PT #### [address] Bilirubin.indirect [Mass/Vol] 0.10 mg/dL Normal 0.03-0.18 [facility] Comment on above: Performed By: #### H S TROP, PTT, HEPATIC, DDIMER, CBC, LIPASE, BMP, PT #### [address] Globulin (S) [Mass/Vol] 2.9 g/dL Normal [facility] Comment on above: Performed By: #### H S TROP, PTT, HEPATIC, DDIMER, CBC, LIPASE, BMP, PT #### [address] Protein [Mass/Vol] 6.8 g/dL Normal 6.4-8.9 [facility] Comment on above: Performed By: #### H S TROP, PTT, HEPATIC, DDIMER, CBC, LIPASE, BMP, PT #### [address] INR in Platelet poor plasma by Coagulation assayOrdered By: Vipin Stroud on 01-30-2025 INR Coag (PPP) [Relative time] INR in Platelet poor plasma by Coagulation assay [facility] Comment on above: INR Therapeutic Rang e [...] i n Urine by Test strip Negative [facility] Leukocyte esterase [Presence ] in Urine by Test stripOrdered By: YAKOV MCDONOUGH on 01-30-2025 Leukocyte esterase Test strip Ql (U) Leukocyte esterase [Presence] in Urine by Test strip Negative [facility] Leukocytes [#/volume] correc michael for nucleated erythrocytes in Blood by Automated counOrdered By: Vipin Stroud on 01-30-2025 WBC corrected for nucl RBC Auto (Bld) [#/Vol] Leukocytes [#/volume] corrected for nucleated erythrocytes in Blood by Automated coun 3.8-11.6 [facility] Lipaseon 01-30-2025 Lipase [Catalytic activity/Vol] 18.0 U/L Normal 11.0-82.0 [facility] Comment on above: Result Comment: PERF ORMED BY: [facility] [address] [place] [address] PATHOLOGIST FAMILY SERVICE AIDE MARCO GALAVIZ M.D. Performed By: #### H S TROP, PTT, HEPATIC, DDIMER, CBC, LIPASE, BMP, PT ####[facility] [id number] [place] [address] [facility] Lipase [Enzymatic activity/v olume] in Serum or PlasmaOrdered By: Vipin Stroud on 01-30-2025 Lipase [Catalytic activity/Vol] Lipase [Enzymatic activity/volume] in Serum or Plasma 11.0-82.0 [facility] Lymphocytes Auto (Bld) [#/Vo l]Ordered By: Vipin Stroud on 01-30-2025 Lymphocytes (Bld) [#/Vol] Lymphocytes [#/volume] in Blood by Automated count 1.00-4.8 [facility] Lymphocytes/100 WBC Auto (Bl d)Ordered By: Vipin Stroud on 01-30-2025 Lymphocytes/100 WBC (Bld) Lymphocytes/100 leukocytes in Blood by Automated count . [facility] MCH Auto (RBC) [Entitic mass ]Ordered By: Vipin tSroud on 01-30-2025 MCH (RBC) [Entitic mass] MCH [Entitic mass] by Automated count 24.7-34.3 [facility] MCHC Auto (RBC) [Mass/Vol]Or dered By: Vipin Stroud on 01-30-2025 MCHC (RBC) [Mass/Vol] MCHC [Mass/volume] by Automated count High 32.0-35.0 [facility] MCV Auto (RBC) [Entitic vol] Ordered By: Vipin Stroud on 01-30-2025 MCV (RBC) [Entitic vol] MCV [Entitic vol ume] by Automated count 80-100 [facility] Monocyte distribution width [Entitic volume] in Blood by AutomatedOrdered By: Vipin Stroud on 01-30-2025 Monocyte distribution width Auto (Bld) [Entitic vol] Monocyte distribution width [Entitic volume] in Blood by Automated 0.00-20.00 [facility] Monocytes Auto (Bld) [#/Vol] Ordered By: Vipin Stroud on 01-30-2025 Monocytes (Bld) [#/Vol] Automated blood monocyte count 0.0-0.8 [facility] Monocytes/100 WBC Auto (Bld) Ordered By: Vipin Stroud on 01-30-2025 Monocytes/100 WBC (Bld) Automated monocyte % . [facility] Neutrophils Auto (Bld) [#/Vo l]Ordered By: Vipin Stroud on 01-30-2025 Neutrophils (Bld) [#/Vol] Neutrophils [#/volume] in Blood by Automated count High 1.8-7.7 [facility] Neutrophils/100 WBC Auto (Bl d)Ordered By: Vipin Stroud on 01-30-2025 Neutrophils/100 WBC (Bld) Automated neutrophil % . [facility] Nitrite Test strip Ql (U)Ord ered By: YAKOV MCDONOUGH on 01-30-2025 Nitrite Ql (U) Nitrite [Presence] i n Urine by Test strip Negative [facility] No Panel InformationOrdered By: Vipin Stroud on 01-30-2025 Estimated GFR (CKD-EPI) > 60.0 mL/Min [facility] Creatinine Clearance (Chem 141.68 [facility] Nucleated erythrocytes [Pres ence] in Blood by Automated countOrdered By: Vipin Stroud on 01-30-2025 Nucleated RBC Auto Ql (Bld) Nucleated erythrocytes [Presence] in Blood by Automated count 0-0.5 [facility] OB Urine Drug Screen (NO THC )on 01-30-2025 Amphetamine Screen,Urine Negative Normal Negative [facility] Comment on above: Order Comment: Comme nt s/s of acute impairment Performed By: #### O BUDS, UA ####[facility] [id number] [place] [address] [facility] Barbiturate Screen,Urine Negative Normal Negative [facility] Comment on above: Order Comment: Comme nt s/s of acute impairment Performed By: #### O BUDS, UA ####[facility] [place] [address] [facility] Benzodiazepines Screen,Urine Negative Normal Negative [facility] Comment on above: Order Comment: Comme nt s/s of acute impairment Performed By: #### O BUDS, UA ####[facility] [place] [address] [facility] Cocaine Screen,Urine Negative Normal Negative [facility] Comment on above: Order Comment: Comme nt s/s of acute impairment Performed By: #### O BUDS, UA ####[facility] [place] [address] [place] Opiate Screen,Urine Negative Normal Negative [facility] Comment on above: Order Comment: Comme nt s/s of acute impairment Performed By: #### O BUDS, UA ####[facility] [place] [address] [facility] Phencyclidine Screen, Urine Negative Normal Negative [facility] Comment on above: Order Comment: Comme nt s/s of acute impairment Result Comment: Thes e are unconfirmed results and should not be used for legal purposes. Drug Cut-Off Concentration: AMPH 1000 ng/mL VENKATA 200 ng/mL BREANNA 200 ng/mL COCM 300 ng/mL OP 300 ng/mL PCP 25 ng/mL PERFORMED BY: [facility] [address] [place] [address] PATHOLOGIST FAMILY SERVICE AIDE MARCO GALAVIZ M.D. Performed By: #### O BUDS, UA ####[place] [address] Opiates [Presence] in Urine by Screen methodOrdered By: YAKOV MCDONOUGH on 01-30-2025 Opiates Screen Ql (U) Opiates [Presence] in Urine by Screen method Negative [facility] Partial Thromboplastin Timeo n 01-30-2025 aPTT Coag (Bld) [Time] 27.2 s Normal 25.1-36.5 [facility] Comment on above: Result Comment: A he matocrit value greater than 55% may lead to inaccurate results in coagulation testing. Patients having hematocrit values >55% require a special collection tube for coagulation studies. Please contact the laboratory at [phone] for redraw instructions. Performed By: #### H S TROP, PTT, HEPATIC, DDIMER, CBC, LIPASE, BMP, PT ####[place] [address] Phencyclidine Screen Ql (U)O rdered By: YAKOV MCDONOUGH on 01-30-2025 Phencyclidine Ql (U) Phencyclidine [Pres ence] in Urine by Screen method Negative [facility] Comment on above: These are unconfirme d [...] volume] in Blood by Automated count 6.3-10.7 [facility] Platelets Auto (Bld) [#/Vol] Ordered By: Vipin Stroud on 01-30-2025 Platelets (Bld) [#/Vol] Platelets [#/vol ume] in Blood by Automated count 150-450 [facility] Potassium [Moles/volume] in Serum or PlasmaOrdered By: Vipin Stroud on 01-30-2025 Potassium [Moles/Vol] Potassium [Moles/v olume] in Serum or Plasma 3.5-5.1 [facility] Protein Test strip (U) [Mass /Vol]Ordered By: YAKOV MCDONOUGH on 01-30-2025 Protein (U) [Mass/Vol] Protein [Mass/vol ume] in Urine by Test strip Negative [facility] Protein [Mass/volume] in Ser um or PlasmaOrdered By: Vipin Stroud on 01-30-2025 Protein [Mass/Vol] Protein [Mass/volume ] in Serum or Plasma 6.4-8.9 [facility] Prothrombin Time INRon 01-30 INR Coag (PPP) [Relative time] 0.9 {INR} Normal [facility] Comment on above: Result Comment: [...] PTT, HEPATIC, DDIMER, CBC, LIPASE, BMP, PT ####[facility] [id number] [place] [address] [facility] PT Coag (PPP) [Time] 10.6 s Normal 9.0-12.9 [facility] Comment on above: Result Comment: A he matocrit value greater than 55% may lead to inaccurate results in coagulation testing. Patients having hematocrit values >55% require a special collection tube for coagulation studies. Please contact the laboratory at [phone] for redraw instructions. Performed By: #### H S TROP, PTT, HEPATIC, DDIMER, CBC, LIPASE, BMP, PT ####[facility] [id number] [place] [address] [facility] Prothrombin time (PT)Ordered By: Vipin Stroud on 01-30-2025 PT Coag (PPP) [Time] Prothrombin time (PT) 9.0- 12.9 [facility] Comment on above: A hematocrit value g reater than 55% may lead to inaccurate results in coagulation testing. Patients having hematocrit values >55% require a special collection tube for coagulation studies. Please contact the laboratory at [phone] for redraw instructions. RBC Auto (Bld) [#/Vol]Ordere d By: Vipin Stroud on 01-30-2025 RBC (Bld) [#/Vol] Erythrocytes [#/volu me] in Blood by Automated count 3.60-5.00 [facility] Serum or plasma albumin/glob ulin mass ratioOrdered By: Vipin Stroud on 01-30-2025 Albumin/Globulin [Mass ratio] Serum or plasma albumin/globulin mass ratio [facility] Serum or plasma anion gap de terminationOrdered By: Vipin Stroud on 01-30-2025 Anion gap [Moles/Vol] Serum or plasma an ion gap determination 6.0-15.0 [facility] Serum or plasma non-glucuron idated bilirubin measurement (mass/volume)Ordered By: Vipin Stroud on 01-30-2025 Bilirubin.indirect [Mass/Vol] Serum or plasma non-glucuronidated bilirubin measurement (mass/volume) [facility] Sodium [Moles/volume] in Ser um or PlasmaOrdered By: Vipin Stroud on 01-30-2025 Sodium [Moles/Vol] Sodium [Moles/volume ] in Serum or Plasma 136-145 [facility] Specific gravity Test strip (U) [Rel density]Ordered By: YAKOV MCDONOUGH on 01-30-2025 Specific gravity (U) [Rel density] Specific gravity of Urine by Test strip 1.001-1.03 0 [facility] Troponin I High Sensitivityo n 01-30-2025 Troponin I High Sensitivity 3 Normal 0-15 [facility] Comment on above: Result Comment: The Troponin units of report have been changed to meet the Chest Pain Accreditation requirement, element EC5.M1l2. Troponin units are changed from pg/ml to ng/L. Also, the decimal is removed and results are in whole numbers. PERFORMED BY: [facility] [address] [place] [address] PATHOLOGIST FAMILY SERVICE AIDE MARCO GALAVIZ M.D. Performed By: #### H S TROP, PTT, HEPATIC, DDIMER, CBC, LIPASE, BMP, PT ####[place] [address] Troponin I.cardiac [Mass/vol ume] in Serum or Plasma by Detection limit <= 0.01 ng/Ordered By: Vipin Stroud on 01-30-2025 Troponin I.cardiac DL <= 0.01 ng/mL [Mass/Vol] Troponin I.cardiac [Mass/volume] in Serum or Plasma by Detection limit <= 0.01 ng/ 0-15 [facility] Comment on above: The Troponin units o [...] [Mass/volume] in Serum or Plasma Low 7-25 [facility] Urinalysison 01-30-2025 Appearance (U) Clear Normal Clear [facility] Comment on above: Order Comment: Comme nt c/o urinary symptoms or increased blood pressure Name Collection Type:: Voided Performed By: #### O BUDS, UA ####[place] [address] [place] [id number] [facility] Bilirubin,Urine Negative Normal Negative [facility] Comment on above: Order Comment: Comme nt c/o urinary symptoms or increased blood pressure Name Collection Type:: Voided Performed By: #### O BUDS, UA ####[place] [address] [place] [id number] [facility] Color (U) Light-Yellow Normal Yellow [facility] Comment on above: Order Comment: Comme nt c/o urinary symptoms or increased blood pressure Name Collection Type:: Voided Performed By: #### O BUDS, UA ####[address] [address] [facility] Glucose Ql (U) Normal Normal Normal [facility] Comment on above: Order Comment: Comme nt c/o urinary symptoms or increased blood pressure Name Collection Type:: Voided Performed By: #### O BUDS, UA ####[place] [id number] [facility] Ketones Ql (U) Negative Normal Negative [facility] Comment on above: Order Comment: Comme nt c/o urinary symptoms or increased blood pressure Name Collection Type:: Voided Performed By: #### O BUDS, UA ####[place] [id number] [facility] Leukocyte esterase Test strip Ql (U) Negative Normal Negative [facility] Comment on above: Order Comment: Comme nt c/o urinary symptoms or increased blood pressure Name Collection Type:: Voided Performed By: #### O BUDS, UA ####[place] [id number] [facility] Nitrite,Urine Negative Normal Negative [facility] Comment on above: Order Comment: Comme nt c/o urinary symptoms or increased blood pressure Name Collection Type:: Voided Performed By: #### O BUDS, UA ####[place] [id number] [facility] Occult Blood,Urine Negative Normal Negative [facility] Comment on above: Order Comment: Comme nt c/o urinary symptoms or increased blood pressure Name Collection Type:: Voided Result Comment: PERF ORMED BY: [facility] [address] [place] [address] PATHOLOGIST FAMILY SERVICE AIDE MARCO GALAVIZ M.D. Performed By: #### O BUDS, UA ####[place] [id number] [facility] pH (U) 7.0 [pH] Normal 5.0-9.0 [facility] Comment on above: Order Comment: Comme nt c/o urinary symptoms or increased blood pressure Name Collection Type:: Voided Performed By: #### O BUDS, UA ####[address] [place] [address] [facility] Protein,Urine Negative Normal Negative [facility] Comment on above: Order Comment: Comme nt c/o urinary symptoms or increased blood pressure Name Collection Type:: Voided Performed By: #### O BUDS, UA ####[place] [id number] [facility] Specificy [place],Urine 1.014 Normal 1.00 1-1.03 0 [facility] Comment on above: Order Comment: Comme nt c/o urinary symptoms or increased blood pressure Name Collection Type:: Voided Performed By: #### O BUDS, UA ####[place] [address] Urobilinogen,Urine Normal Normal Normal [facility] Comment on above: Order Comment: Comme nt c/o urinary symptoms or increased blood pressure Name Collection Type:: Voided Performed By: #### O BUDS, UA ####[address] Urobilinogen Test strip (U) [Mass/Vol]Ordered By: YAKOV MCDONOUGH on 01-30-2025 Urobilinogen (U) [Mass/Vol] Urobilinogen [Mass/volume] in Urine by Test strip Normal [facility] WBC Auto (Bld) [#/Vol]Ordere d By: Vipin Stroud on 01-30-2025 WBC (Bld) [#/Vol] Leukocytes [#/volume ] in Blood by Automated count 3.8-11.6 [facility] X-ray reportOrdered By: J Luis Newton on 01-30-2025 Study report [facility] [address] [place] [address] [place] [address] XRay Report Signed Patient: Dawn Major MR#: [id number] : 2000 Acct:[id number] Age/Sex: 24 / F ADM Date: 5 Loc: ER Room: Type: PRE ER Attending [...] Newton M.D. 01/30/2025 8:55 AM Dictation Location: RADIO-PC-17 Transcribed By: SHERINE 01/30/25 0855 Dictated By: J Luis Newton II, MD 01/30/25 0853 Signed By: 01/30/25 0855 [facility] Work Phone: XR chest 1V portableon 01-30 XR chest 1V portable [place] [address] XRay Report Signed Patient: Dawn Major MR#: [id number] : 2000 Acct:[id number] Age/Sex: 24 / F ADM Date: 01/30/25 [...] Newton M.D. 01/30/2025 8:55 AM Dictation Location: RADIO-PC-17 Transcribed By: SHERINE 01/30/25 0855 Dictated By: J Luis Newton II, MD 01/30/25 0853 Signed By: 01/30/25 0855 Normal [facility] aPTT in Platelet poor plasma by Coagulation assayOrdered By: Vipin Stroud on 01-30-2025 aPTT Coag (PPP) [Time] Activated partial thromboplastin time (aPTT) in platelet poor plasma by coagulation a 25.1-36.5 [facility] Comment on above: A hematocrit value g reater than 55% may lead to inaccurate results in coagulation testing. Patients having hematocrit values >55% require a special collection tube for coagulation studies. Please contact the laboratory at [phone] for redraw instructions. pH Test strip (U)Ordered By: YAKOV MCDONOUGH on 01-30-2025 pH (U) pH of Urine by Test strip 5.0-9.0 [facility] US OB ANATOMYon 01-27-2025 [place] [address] Ultrasound Report Signed Patient: DAWN MAJOR MR#: [id number] : 2000 Acct:[id number] Age/Sex: 24 / F ADM Date: 01/27/25 Loc: US Attending Dr: Demarco Orr D.O. Ordering Physician: Demarco Orr D.O. Date of Service: 01/27/25 Procedure(s): US OB anatomy Accession Number(s): [id number] cc: Demarco Orr D.O.; Geena ARAYA [place] [id number] Patient Name: DAWN MAJOR MRN: [id number] date: 2000 Sex: F Assigned Patient Location: US Current Patient Location: US Accession/Order Number: [id number] Exam Date: 01/27/2025 12:50 Report Date: 01/27/2025 [...] all 4 extremities were surveyed by the blender snuff and no abnormalities were identified. The facial [...] was evaluated with a transvaginal probe. The blender snuff noted contractions during evaluation. There is no evidence of previa. The cervix is closed and measures approximately 3.7 cm in length. IMPRESSION: CLOSED CERVIX, WITHOUT ABNORMALITY. Impression dictated by: Catherine Cortes M.D. 01/27/2025 12:56 PM Dictation Location: [place] [address] Electronically authenticated by: [id number] Y Date: 01/27/2025 12:56 Dictated By: Catherine Cortes M.D. Signed By: 01/27/25 1258 DD/ 1256 TD/TT: Gate Person: [facility] Radiology, Radiologi MD clarisa - 01/27/2025 [place] [address] Ultrasound Report Signed Patient: DAWN MAJOR MR#: [id number] : 2000 Acct:[id number] Age/Sex: 24 / F ADM Date: 01/27/25 Loc: US Attending Dr: Demarco Orr D.O. Ordering Physician: Demarco Orr D.O. Date of Service: 01/27/25 Procedure(s): US OB anatomy Accession Number(s): [id number] cc: Demarco Orr D.O.; Geena ARAYA [place] [id number] Patient Name: DAWN MAJOR MRN: [id number] date: 2000 Sex: F Assigned Patient Location: Current Patient Location: Accession/Order Number: [id number] Exam Date: 01/27/2025 12:50 Report Date: 01/27/2025 [...] all 4 extremities were surveyed by the blender snuff and no abnormalities were identified. The facial [...] was evaluated with a transvaginal probe. The blender snuff noted contractions during evaluation. There is no evidence of previa. The cervix is closed and measures approximately 3.7 cm in length. IMPRESSION: CLOSED CERVIX, WITHOUT ABNORMALITY. Impression dictated by: Catherine Cortes M.D. 01/27/2025 12:56 PM Dictation Location: [place] [address] Electronically authenticated by: [id number] Y Date: 01/27/2025 12:56 Dictated By: Catherine Cortes M.D. Signed By: 01/27/25 1258 DD/ 1256 TD/TT: Gate Person: [facility] Radiology Study observation (narrative) [facility] US OB ANATOMYOrdered By: Herbert iologwolf Radiology on 01-27-2025 [facility] Work Phone: RECURRENT VAGINITIS (HTRX)on 01-26-2025 ATOPOBIUM VAGINAE 29.079 Abnormal [facility] ATOPOBIUM VAGINAE Detected Abnormal [facility] BVAB 2,3 (BACTERIAL VAGINOSIS ASSOCIATED BACTERIA 2, 3); MOBILUNCUS SPP 0 [facility] BVAB 2,3 (BACTERIAL VAGINOSIS ASSOCIATED BACTERIA 2, 3); MOBILUNCUS SPP Not detected [facility] MARILYNN ALBICANS, PARAPSILOSIS, TROPICALIS 0 [facility] MARILYNN ALBICANS, PARAPSILOSIS, TROPICALIS Not detected [facility] MARILYNN GLABRATA 0 [facility] MARILYNN GLABRATA Not detected [facility] MARILYNN KRUSEI 0 [facility] MARILYNN KRUSEI Not detected [facility] CHLAMYDIA TRACHOMATIS 0 [facility] CHLAMYDIA TRACHOMATIS Not detected N [facility] ERMB, C; MEFA 26.396 Abnormal [facility] ERMB, C; MEFA Detected Abnormal [facility] GARDNERELLA VAGINALIS 32.623 Abnormal [facility] GARDNERELLA VAGINALIS Detected Abnormal [facility] Interpretation and review of laboratory results Abnormal [facility] MEGASPHAERA (TYPES 1, 2) 0 [facility] MEGASPHAERA (TYPES 1, 2) Not detected [facility] MYCOPLASMA GENITALIUM 0 [facility] MYCOPLASMA GENITALIUM Not detected N [facility] NEISSERIA GONORRHOEAE 0 [facility] NEISSERIA GONORRHOEAE Not detected N [facility] TRICHOMONAS VAGINALIS 0 [facility] TRICHOMONAS VAGINALIS Not detected N [facility] Urinalysis macro (dipstick) panel (U)on 01-25-2025 Bilirubin, UA Negative Negative - 4(70) +++ mg/dL [facility] Blood, UA Negative Negative - 50 Regino/mcL [facility] Clarity, UA Clear [facility] Color, UA Yellow [facility] Glucose, UA Negative Negative - 2000(110) ++++ mg/dL [facility] Interpretation and review of laboratory results Normal [facility] Ketones, UA Negative Negative - 160(16) ++++ mg/dL [facility] Leukocytes, UA Negative Negative - 500+++ Dara/mcL [facility] Nitrite, UA Negative Negative - Positive [facility] pH, UA 7 5 - 9 [facility] Protein, UA Negative Negative - 2000(20) ++++ mg/dL [facility] Spec Grav, UA 1.02 1 - 1.03 [facility] Urobilinogen, UA 0.2 0.2 - 12 mg/dL [facility] BOX TESTon 12-03-2024 BOX TEST SENT OUT [facility] BOX1 [facility] BOX2 12/03/2024 [facility] BOX [facility] HCG ( test) Ql (U)o n 11-05-2024 Interpretation and review of laboratory results Abnormal [facility] Preg Test, Ur Positive Negative [facility] US OB TRANSVAGINALon 025 US OB TRANSVAGINAL [...] II, MD, PHD at 07-Nov-2024 07:21:38 AM [facility] Normal Not Available Comment on above: Order Comment: US OB TRANSVAGINAL No LMP recorded. Urinalysis macro (dipstick) panel (U)on 11-05-2024 Bilirubin, UA Negative Negative - 4(70) +++ mg/dL [facility] Blood, UA Negative Negative - 50 Regino/mcL [facility] Clarity, UA Clear [facility] Color, UA Yellow [facility] Glucose, UA Negative Negative - 1999(110) ++++ mg/dL [facility] Interpretation and review of laboratory results Normal [facility] Ketones, UA Negative Negative - 160(16) ++++ mg/dL [facility] Leukocytes, UA Negative Negative - 500+++ Dara/mcL [facility] Nitrite, UA Negative Negative - Positive [facility] pH, UA 7 5 - 9 [facility] Protein, UA Negative Negative - 1999(20) ++++ mg/dL [facility] Spec Grav, UA 1.02 1 - 1.03 [facility] Urobilinogen, UA 0.2 0.2 - 12 mg/dL [facility] X-ray reportOrdered By: Gerardo Hutton on 09-21-2024 Study report [facility] [place] [address] XRay Report Signed Patient: Dawn Major MR#: [id number] : 2000 Acct:[id number] Age/Sex: 24 / F ADM Date: 5 Loc: ER Room: Type: [facility] ER Attending Dr: Copies to: Derek [...] Micky Hutton MD 09/21/242114 Signed By: 09/21/242115 [facility] Work Phone: XR shoulder RT min 2V*on XR shoulder RT min 2V* [facility] [place] [address] XRay Report Signed Patient: Dawn Major MR#: [id number] : 2000 Acct:[id number] Age/Sex: 24 / F ADM Date: 09/21/24 Loc: ER Room: Type: [facility] ER Attending Dr: Copies to: Derek [...] MD 09/21/242114 Signed By: 09/21/242115 Normal [facility] Laboratory - Chemistry and C hemistry - challengeon 08-26-2024 HCG.intact+Beta subunit Qn <1 mIU/mL [facility] Healthcare Comment on above: Female (Non- ) 0 - 5 (Postmenopausal) 0 - 8 Female () Weeks of Gestation 3 6 - 71 4 10 - 750 5 108 - 8371 6 538 - 63612 7 [phone] 8 [phone] 9 [phone] -[phone] 10 42136 -[phone] 12 09678 -[phone] 14 04766 - 60086 15 03944 - 96647 16 9464 - 26713 17 1533 - 39974 18 4554 - [phone] Gavin ECLIA methodology No Panel Informationon 08-26 Performed at: 01 - [address] [id number] [employer]rain Vehicle Technician: Mendel Rubin PhD, Phone: [phone] [facility] HCG ( test) Ql (U)o n 08-25-2024 Interpretation and review of laboratory results Normal [facility] Preg Test, Ur Negative Negative [facility] Alanine aminotransferase [En zymatic activity/volume] in Serum or PlasmaOrdered By: Paramjit Yanes on 06-29-2024 ALT [Catalytic activity/Vol] 6 U/L Low [facility] Comment on above: Performed By: #### E CAPO, CBC, CMP ####[facility] [id number] [place] [address] [facility] ALT [Catalytic activity/Vol] Alanine aminotransferase [Enzymatic activity/volume] in Serum or Plasma Low [facility] Albumin [Mass/volume] in Ser um or Plasma by Bromocresol green (BCG) dye binding methoOrdered By: Paramjit Yanes on 06-29-2024 Albumin BCG dye [Mass/Vol] 5.1 g/dL 3.5-5.7 [facility] Albumin BCG dye [Mass/Vol] Albumin [Mass/volume] in Serum or Plasma by Bromocresol green (BCG) dye binding metho 3.5-5.7 [facility] Alkaline phosphatase [Enzyma tic activity/volume] in Serum or PlasmaOrdered By: Paramjit Yanes on 06-29-2024 ALP [Catalytic activity/Vol] 43 U/L Normal 34-104 [facility] Comment on above: Performed By: #### E CAPO, CBC, CMP ####[facility] [id number] ALP [Catalytic activity/Vol] Alkaline phosphatase [Enzymatic activity/volume] in Serum or Plasma 34-104 [facility] Amphetamine Screen Ql (U)Ord ered By: Paramjit Yanes on 06-29-2024 Amphetamines Ql (U) Amphetamines screen Negativ e [facility] Amphetamines Ql (U) Negative Negative [facility] Appearance of UrineOrdered B y: Paramjit Gallegoskevin on 06-29-2024 Appearance (U) Urine appearance Clear [facility] Aspartate aminotransferase [ Enzymatic activity/volume] in Serum or PlasmaOrdered By: Paramjit Gallegoskevin on 06-29-2024 AST [Catalytic activity/Vol] 15 U/L Normal [facility] Comment on above: Performed By: #### E CAPO, CBC, CMP ####[place] [address] [address] AST [Catalytic activity/Vol] Aspartate aminotransferase [Enzymatic activity/volume] in Serum or Plasma [facility] Automated basophil %Ordered By: Paramjit Yanes on 06-29-2024 Basophils/100 WBC (Bld) 0.6 % Normal . F [facility] Comment on above: Performed By: #### E CAPO, CBC, CMP ####[address] Automated basophil countOrde red By: Paramjit Yanes on 06-29-2024 Basophils (Bld) [#/Vol] 0.0 10*3/uL Normal 0.0-0.2 [facility] Comment on above: Result Comment: PERF ORMED BY: [facility] [address] [place] [address] PATHOLOGIST FAMILY SERVICE AIDE KIERSTEN BYNUM M.D. Performed By: #### E CAPO, CBC, CMP ####[address] Automated blood monocyte cou ntOrdered By: Paramjit Yanes on 06-29-2024 Monocytes (Bld) [#/Vol] 0.3 10*3/uL Normal 0.0-0.8 [facility] Comment on above: Performed By: #### E CAPO, CBC, CMP ####[place] [address] [address] Automated eosinophil %Ordere d By: Paramjit Yanes on 06-29-2024 Eosinophils/100 WBC (Bld) 4.2 % Normal . [facility] Comment on above: Performed By: #### E CAPO, CBC, CMP ####[place] [address] [address] Automated eosinophil countOr dered By: Paramjit Yanes on 06-29-2024 Eosinophils (Bld) [#/Vol] 0.3 10*3/uL Normal 0.0-0.45 [facility] Comment on above: Performed By: #### E CAPO, CBC, CMP ####[address] Automated monocyte %Ordered By: Paramjit Yanes on 06-29-2024 Monocytes/100 WBC (Bld) 4.8 % Normal . F [facility] Comment on above: Performed By: #### E CAPO, CBC, CMP ####[address] Automated neutrophil %Ordere d By: Paramjit Yanes on 06-29-2024 Neutrophils/100 WBC (Bld) 68.1 % Normal . [facility] Comment on above: Performed By: #### E CAPO, CBC, CMP ####[address] Bacteria [Presence] in Urine by AutomatedOrdered By: Paramjit Yanes on 06-29-2024 Bacteria Auto Ql (U) Rare [HPF] None Seen [facility] Bacteria Auto Ql (U) Bacteria [Presence] in Urine by Automated None Seen [facility] Barbiturates [Presence] in U rine by Screen methodOrdered By: Paramjit Yanes on 06-29-2024 Barbiturates Screen Ql (U) Negative Negative [facility] Barbiturates Screen Ql (U) Barbiturates [Presence] in Urine by Screen method Negative [facility] Basophils Auto (Bld) [#/Vol] Ordered By: Paramjit Yanes on 06-29-2024 Basophils (Bld) [#/Vol] Automated basophil count 0.0-0.2 [facility] Basophils/100 WBC Auto (Bld) Ordered By: Paramjit Yanes on 06-29-2024 Basophils/100 WBC (Bld) Automated basophil % . [facility] Benzodiazepines Screen Ql (U )Ordered By: Paramjit Yanes on 06-29-2024 Benzodiazepines Ql (U) Negative Negative [facility] Benzodiazepines Ql (U) Benzodiazepines [ Presence] in Urine by Screen method Negative [facility] Benzoylecgonine [Presence] i n Urine by Screen methodOrdered By: Paramjit Yanes on 06-29-2024 Benzoylecgonine Screen Ql (U) Negative Negative [facility] Benzoylecgonine Screen Ql (U) Benzoylecgonine [Presence] in Urine by Screen method Negative [facility] Bilirubin Test strip Ql (U)O rdered By: Paramjit Yanes on 06-29-2024 Bilirubin Ql (U) Negative Negative [facility] Bilirubin Ql (U) Bilirubin.total [Pre sence] in Urine by Test strip Negative [facility] Bilirubin.total [Mass/volume ] in Serum or PlasmaOrdered By: Paramjit Yanes on 06-29-2024 Bilirubin [Mass/Vol] 0.8 mg/dL Normal 0.3-1.0 [facility] Comment on above: Performed By: #### E CAPO, CBC, CMP ####[facility] [id number] [place] [id number] [facility] Bilirubin [Mass/Vol] Bilirubin.total [Mass/volume] in Serum or Plasma 0.3-1.0 [facility] Calcium [Mass/volume] in Ser um or PlasmaOrdered By: Paramjit Yanes on 06-29-2024 Calcium [Mass/Vol] 10.2 mg/dL Normal 8.6-10.3 [facility] Comment on above: Performed By: #### E CAPO, CBC, CMP ####[facility] [id number] [place] [address] [facility] Calcium [Mass/Vol] Calcium [Mass/volume ] in Serum or Plasma 8.6-10.3 [facility] Cannabinoids [Presence] in U rine by Screen methodOrdered By: Paramjit Yanes on 06-29-2024 Cannabinoids Screen Ql (U) Positive High Negative [facility] Comment on above: These are unconfirme d results and should not be used for legal purposes. Drug Cut-Off Concentration: AMPH 1000 ng/mL VENKATA 200 ng/mL BREANNA 200 ng/mL COCM 300 ng/mL OP 300 ng/mL PCP 25 ng/mL THC 20 ng/mL Cannabinoids Screen Ql (U) Cannabinoids [Presence] in Urine by Screen method High Negative [facility] Comment on above: These are unconfirme d results and should not be used for legal purposes. Drug Cut-Off Concentration: AMPH 1000 ng/mL VENKATA 200 ng/mL BREANNA 200 ng/mL COCM 300 ng/mL OP 300 ng/mL PCP 25 ng/mL THC 20 ng/mL Carbon dioxide, total [Moles /volume] in Serum or PlasmaOrdered By: Paramjit Yanes on 06-29-2024 CO2 [Moles/Vol] 28.6 mmol/L Normal 21.0-31.0 [facility] Comment on above: Performed By: #### E CAPO, CBC, CMP ####[place] [address] [address] CO2 [Moles/Vol] Carbon dioxide, tota l [Moles/volume] in Serum or Plasma 21.0-31.0 [facility] Chloride [Moles/volume] in S isabel or PlasmaOrdered By: Paramjit Yanes on 06-29-2024 Chloride [Moles/Vol] 105 mmol/L Normal 98-107 [facility] Comment on above: Performed By: #### E CAPO, CBC, CMP ####[place] [address] [place] [id number] [facility] Chloride [Moles/Vol] Chloride [Moles/vol ume] in Serum or Plasma 98-107 [facility] Color Auto (U)Ordered By: Kevin Yanes on 06-29-2024 Color (U) Color of Urine by Auto Yellow Fi [facility] Color of Urine by AutoOrdere d By: Paramjit Yanes on 06-29-2024 Color (U) Yellow Normal Yellow [facility] Comment on above: Order Comment: Name Collection Type:: Clean-Voided Midstream Performed By: #### U HCG, URDS, ADDONUAPLUS ####[place] [id number] [facility] Complete Blood Count Auto Di ffon 06-29-2024 Mean Corpuscular HGB Conc 34.6 g/dL Normal 32.0-35.0 [facility] Comment on above: Performed By: #### E CAPO CBC, CMP ####[place] [address] [address] Monocytes/100 WBC (Bld) 17.44 % Normal 0.00-20.00 [facility] Comment on above: Performed By: #### E CAPO CBC, CMP ####[address] NRBC% 0.0 /100{WBC} Normal 0-0.5 [facility] Comment on above: Performed By: #### E CAPO CBC, CMP ####[address] Comprehensive Metabolic Pane haseeb 06-29-2024 Albumin [Mass/Vol] 5.1 g/dL Normal 3.5-5.7 [facility] Comment on above: Performed By: #### E CAPO CBC, CMP ####[address] Creatinine Clr Calc Pharmacy 91.90 Normal [facility] Comment on above: Result Comment: PERF ORMED BY: [facility] [address] [place] [address] PATHOLOGIST FAMILY SERVICE AIDE KIERSTEN BYNUM M.D. Performed By: #### E CAPO CBC, CMP ####[address] GFR/1.73 sq M.predicted MDRD (S/P/Bld) [Vol rate/Area] mL/min/{1.73_m2} Normal [facility] Comment on above: Performed By: #### E CAPO CBC, CMP ####[address] Creatinine [Mass/volume] in Serum or PlasmaOrdered By: Paramjit Yanes on 06-29-2024 Creatinine [Mass/Vol] 0.62 mg/dL Normal 0.60-1.20 [facility] Comment on above: Performed By: #### E CAPO, CBC, CMP ####[address] Creatinine [Mass/Vol] Creatinine [Mass/v olume] in Serum or Plasma 0.60-1.20 [facility] Dipstick and Microscopicon 1 Bacteria,Urine Rare Normal None Seen [facility] Comment on above: Order Comment: Name Collection Type:: Clean-Voided Midstream Performed By: #### U HCG, URDS, ADDONUAPLUS ####[address] Bilirubin,Urine Negative Normal Negative [facility] Comment on above: Order Comment: Name Collection Type:: Clean-Voided Midstream Performed By: #### U HCG, URDS, ADDONUAPLUS ####[address] Glucose Ql (U) Normal Normal Normal [facility] Comment on above: Order Comment: Name Collection Type:: Clean-Voided Midstream Performed By: #### U HCG, URDS, ADDONUAPLUS ####[address] Hyaline Casts,Urine None Normal 0-8 [facility] Comment on above: Order Comment: Name Collection Type:: Clean-Voided Midstream Performed By: #### U HCG, URDS, ADDONUAPLUS ####[address] Mucus,Urine 4+ Critically abnormal [facility] Comment on above: Order Comment: Name Collection Type:: Clean-Voided Midstream Performed By: #### U HCG, URDS, ADDONUAPLUS ####[address] Nitrite,Urine Negative Normal Negative [facility] Comment on above: Order Comment: Name Collection Type:: Clean-Voided Midstream Performed By: #### U HCG, URDS, ADDONUAPLUS ####[address] [address] [place] Occult Blood,Urine Negative Normal Negative [facility] Comment on above: Order Comment: Name Collection Type:: Clean-Voided Midstream Performed By: #### U HCG, URDS, ADDONUAPLUS ####[address] RBC,Urine 1-2 Normal 0-4 [facility] Comment on above: Order Comment: Name Collection Type:: Clean-Voided Midstream Performed By: #### U HCG, URDS, ADDONUAPLUS ####[address] Specificy [place],Urine 1.026 Normal 1.00 1-1.03 0 [facility] Comment on above: Order Comment: Name Collection Type:: Clean-Voided Midstream Performed By: #### U HCG, URDS, ADDONUAPLUS ####[address] Squamous Epithelial Cell,Urine 1-2 Normal 0-2 [facility] Comment on above: Order Comment: Name Collection Type:: Clean-Voided Midstream Performed By: #### U HCG, URDS, ADDONUAPLUS ####[address] Urobilinogen,Urine Normal Normal Normal [facility] Comment on above: Order Comment: Name Collection Type:: Clean-Voided Midstream Performed By: #### U HCG, URDS, ADDONUAPLUS ####[address] WBC,Urine 1-2 Normal 0-4 [facility] Comment on above: Order Comment: Name Collection Type:: Clean-Voided Midstream Performed By: #### U HCG, URDS, ADDONUAPLUS ####[address] Drug Screen,Urineon 06-29-20 24 Amphetamine Screen,Urine Negative Normal Negative [facility] Comment on above: Performed By: #### U HCG, URDS, ADDONUAPLUS ####[address] Barbiturate Screen,Urine Negative Normal Negative [facility] Comment on above: Performed By: #### U HCG, URDS, ADDONUAPLUS ####[address] Benzodiazepines Screen,Urine Negative Normal Negative [facility] Comment on above: Performed By: #### U HCG, URDS, ADDONUAPLUS ####[address] Cannabinoid Screen,Urine Positive High Negative [facility] Comment on above: Result Comment: Thes e are unconfirmed results and should not be used for legal purposes. Drug Cut-Off Concentration: AMPH 1000 ng/mL VENKATA 200 ng/mL BREANNA 200 ng/mL COCM 300 ng/mL OP 300 ng/mL PCP 25 ng/mL THC 20 ng/mL PERFORMED BY: [facility] [address] [place] [address] PATHOLOGIST FAMILY SERVICE AIDE KIERSTEN BYNUM M.D. Performed By: #### U HCG, URDS, ADDONUAPLUS ####[address] Cocaine Screen,Urine Negative Normal Negative [facility] Comment on above: Performed By: #### U HCG, URDS, ADDONUAPLUS ####[address] Opiate Screen,Urine Negative Normal Negative [facility] Comment on above: Performed By: #### U HCG, URDS, ADDONUAPLUS ####[address] Phencyclidine Screen,Urine Negative Normal Negative [facility] Comment on above: Performed By: #### U HCG, URDS, ADDONUAPLUS ####[address] Eosinophils Auto (Bld) [#/Vo l]Ordered By: Paramjit Yanes on 06-29-2024 Eosinophils (Bld) [#/Vol] Automated eosinophil count 0.0-0.45 [facility] Eosinophils/100 WBC Auto (Bl d)Ordered By: Paramjit Yanes on 06-29-2024 Eosinophils/100 WBC (Bld) Automated eosinophil % . [facility] Epithelial cells.squamous [# /area] in Urine sediment by Automated countOrdered By: Paramjit Yanes on 06-29-2024 Epithelial cells.squamous Auto (Urine sed) [#/Area] 1-2 [HPF] 0-2 [facility] Epithelial cells.squamous Auto (Urine sed) [#/Area] Epithelial cells.squamous [#/area] in Urine sediment by Automated count 0-2 [facility] Erythrocyte distribution wid th Auto (RBC) [Ratio]Ordered By: Paramjit Yanes on 06-29-2024 Erythrocyte distribution width (RBC) [Ratio] Erythrocyte distribution width [Ratio] by Automated count 11.9-15.3 [facility] Erythrocyte distribution wid th [Ratio] by Automated countOrdered By: Paramjit Yanes on 06-29-2024 Erythrocyte distribution width (RBC) [Ratio] 13.0 % Normal 11.9-15.3 [facility] Comment on above: Performed By: #### E CAPO, CBC, CMP ####[facility] [id number] Erythrocytes [#/area] in Uri ne sediment by Automated countOrdered By: Paramjit Yanes on 06-29-2024 RBC Auto (Urine sed) [#/Area] 1-2 [HPF] 0-4 [facility] RBC Auto (Urine sed) [#/Area] Erythrocytes [#/area] in Urine sediment by Automated count 0-4 [facility] Erythrocytes [#/volume] in B lood by Automated countOrdered By: Paramjit Yanes on 06-29-2024 RBC (Bld) [#/Vol] 4.85 10*6/uL Normal 3.60-5.00 [facility] Comment on above: Performed By: #### E CAPO, CBC, CMP ####[facility] [id number] Ethanol [Mass/volume] in Ser um or PlasmaOrdered By: Paramjit Yanes on 06-29-2024 Ethanol [Mass/Vol] mg/dL Normal [facility] Comment on above: Performed By: #### E CAPO, CBC, CMP ####[facility] [place] [address] [facility] Ethanol [Mass/Vol] TNP [facility] Comment on above: Test not performed Ethanol [Mass/Vol] Ethanol [Mass/volume ] in Serum or Plasma [facility] Comment on above: Test not performed Ethyl Alcohol Profileon 06-10 Percent Ethanol Not performed Normal [facility] Comment on above: Result Comment: PERF ORMED BY: [facility] [address] [place] [id number] PATHOLOGIST FAMILY SERVICE AIDE KIERSTEN BYNUM M.D. Performed By: #### E CAPO, CBC, CMP ####[place] [address] [place] [id number] [facility] Globulin Calc (S) [Mass/Vol] Ordered By: Paramjit Yanes on 06-29-2024 Globulin (S) [Mass/Vol] Serum globulin m easurement by calculation (mass/volume) [facility] Glucose [Mass/volume] in Ser um or PlasmaOrdered By: Paramjit Yanes on 06-29-2024 Glucose [Mass/Vol] 86 mg/dL Normal 70-100 [facility] Comment on above: ADA recommended refe rence rangeRandom Glucose Reference Range is dependent on time and content of last meal. Glucose of more than 200 mg/dL in a nonstressed, ambulatory subject supports the diagnosis of Diabetes Mellitus. Result Comment: [facility] Glucose Reference Range is dependent on time and content of last meal. Glucose of more than 200 mg/dL in a nonstressed, ambulatory subject supports the diagnosis of Diabetes Mellitus. ADA recommended reference range Performed By: #### E CAPO, CBC, CMP ####[place] [address] [place] [id number] [facility] Glucose [Mass/Vol] Glucose [Mass/volume ] in Serum or Plasma 70-100 [facility] Comment on above: ADA recommended refe rence rangeRandom Glucose Reference Range is dependent on time and content of last meal. Glucose of more than 200 mg/dL in a nonstressed, ambulatory subject supports the diagnosis of Diabetes Mellitus. Glucose [Mass/volume] in Uri ne by Test stripOrdered By: Paramjit Yanes on 06-29-2024 Glucose Test strip (U) [Mass/Vol] Normal mg/dL Normal [facility] Glucose Test strip (U) [Mass/Vol] Glucose [Mass/volume] in Urine by Test strip Normal [facility] HCG ( test) IA.rapi d Ql (U)Ordered By: Paramjit Yanes on 06-29-2024 HCG ( test) Ql (U) Negative [facility] HCG ( test) Ql (U) Urine human chorionic gonadotropin (hCG) detection by immunoassay [facility] HCG,Urineon 06-29-2024 Beta HCG ( test) Ql (U) Negative Normal [facility] Comment on above: Order Comment: Name Collection Type:: Clean-Voided Midstream Result Comment: PERF ORMED BY: [facility] [address] [place] [id number] PATHOLOGIST FAMILY SERVICE AIDE KIERSTEN BYNUM M.D. Performed By: #### U HCG, URDS, ADDONUAPLUS ####[place] [address] [place] [id number] [facility] Hematocrit Auto (Bld) [Volum e fraction]Ordered By: Paramjit Yanes on 06-29-2024 Hematocrit (Bld) [Volume fraction] Hematocrit [Volume Fraction] of Blood by Automated count 34.0-46.4 [facility] Hematocrit [Volume Fraction] of Blood by Automated countOrdered By: Paramjit Yaens on 06-29-2024 Hematocrit (Bld) [Volume fraction] 42.2 % Normal 34.0-46.4 [facility] Comment on above: Performed By: #### E CAPO, CBC, CMP ####[facility] [address] [place], [place] [id number] [facility] Hemoglobin Test strip Ql (U) Ordered By: Paramjit Yanes on 06-29-2024 Hemoglobin Ql (U) Negative Negative [facility] Hemoglobin Ql (U) Hemoglobin [Presence ] in Urine by Test strip Negative [facility] Hemoglobin [Mass/volume] in BloodOrdered By: Paramjit Yanes on 06-29-2024 Hemoglobin (Bld) [Mass/Vol] 14.6 g/dL Normal 11.8-15.4 [facility] Comment on above: Performed By: #### E CAPO, CBC, CMP ####[facility] [id number] Hemoglobin (Bld) [Mass/Vol] Hemoglobin [Mass/volume] in Blood 11.8-15.4 [facility] Hyaline casts [#/area] in Ur ine sediment by Automated countOrdered By: Paramjit Yanes on 06-29-2024 Hyaline casts Auto (Urine sed) [#/Area] None [LPF] 0-8 [facility] Hyaline casts Auto (Urine sed) [#/Area] Hyaline casts [#/area] in Urine sediment by Automated count 0-8 [facility] Ketones Test strip Ql (U)Ord ered By: Paramjit Yanes on 06-29-2024 Ketones Ql (U) Ketones [Presence] i n Urine by Test strip Negative [facility] Ketones [Presence] in Urine by Test stripOrdered By: Paramjit Yanes on 06-29-2024 Ketones Ql (U) Negative Normal Negative [facility] Comment on above: Order Comment: Name Collection Type:: Clean-Voided Midstream Performed By: #### U HCG, URDS, ADDONUAPLUS ####[address] Leukocyte esterase [Presence ] in Urine by Test stripOrdered By: Paramjit Yanes on 06-29-2024 Leukocyte esterase Test strip Ql (U) Negative Normal Negative [facility] Comment on above: Order Comment: Name Collection Type:: Clean-Voided Midstream Performed By: #### U HCG, URDS, ADDONUAPLUS ####[address] Leukocyte esterase Test strip Ql (U) Leukocyte esterase [Presence] in Urine by Test strip Negative [facility] Leukocytes [#/area] in Urine sediment by Automated countOrdered By: Paramjit Yanes on 06-29-2024 WBC Auto (Urine sed) [#/Area] 1-2 [HPF] 0-4 [facility] WBC Auto (Urine sed) [#/Area] Leukocytes [#/area] in Urine sediment by Automated count 0-4 [facility] Leukocytes [#/volume] correc michael for nucleated erythrocytes in Blood by Automated counOrdered By: Paramjit Yanes on 06-29-2024 WBC corrected for nucl RBC Auto (Bld) [#/Vol] 7.3 10*3/uL 3.8-11.6 [facility] WBC corrected for nucl RBC Auto (Bld) [#/Vol] Leukocytes [#/volume] corrected for nucleated erythrocytes in Blood by Automated coun 3.8-11.6 [facility] Leukocytes [#/volume] in Blo od by Automated countOrdered By: Paramjit Yanes on 06-29-2024 WBC (Bld) [#/Vol] 7.3 10*3/uL Normal 3.8-11.6 [facility] Comment on above: Performed By: #### E CAPO, CBC, CMP ####[facility] [id number] [address] Lymphocytes Auto (Bld) [#/Vo l]Ordered By: Paramjit Yanes on 06-29-2024 Lymphocytes (Bld) [#/Vol] Lymphocytes [#/volume] in Blood by Automated count 1.00-4.8 [facility] Lymphocytes [#/volume] in Bl ood by Automated countOrdered By: Paramjit Yanes on 06-29-2024 Lymphocytes (Bld) [#/Vol] 1.6 10*3/uL Normal 1.00-4.8 [facility] Comment on above: Performed By: #### E CAPO, CBC, CMP ####[facility] [id number] [place] [id number] [facility] Lymphocytes/100 WBC Auto (Bl d)Ordered By: Paramjit Yanes on 06-29-2024 Lymphocytes/100 WBC (Bld) Lymphocytes/100 leukocytes in Blood by Automated count . [facility] Lymphocytes/100 leukocytes i n Blood by Automated countOrdered By: Paramjit Yanes on 06-29-2024 Lymphocytes/100 WBC (Bld) 22.3 % Normal . [facility] Comment on above: Performed By: #### E CAPO, CBC, CMP ####[facility] Cco[address] MCH Auto (RBC) [Entitic mass ]Ordered By: Paramjit Yanes on 06-29-2024 MCH (RBC) [Entitic mass] MCH [Entitic mass] by Automated count 24.7-34.3 [facility] MCH [Entitic mass] by Automa michael countOrdered By: Paramjit Yanes on 06-29-2024 MCH (RBC) [Entitic mass] 30.1 pg Normal 24.7-34.3 [facility] Comment on above: Performed By: #### E CAPO, CBC, CMP ####[facility] [id number] MCHC Auto (RBC) [Mass/Vol]Or dered By: Paramjit Yanes on 06-29-2024 MCHC (RBC) [Mass/Vol] 34.6 g/dL 32.0-35.0 [facility] MCHC (RBC) [Mass/Vol] MCHC [Mass/volume] by Automated count 32.0-35.0 [facility] MCV Auto (RBC) [Entitic vol] Ordered By: Paramjit Yanes on 06-29-2024 MCV (RBC) [Entitic vol] MCV [Entitic vol ume] by Automated count 80-100 [facility] MCV [Entitic volume] by Auto mated countOrdered By: Paramjit Yanes on 06-29-2024 MCV (RBC) [Entitic vol] 87.2 fL Normal 80-100 [facility] Comment on above: Performed By: #### E CAPO, CBC, CMP ####[facility] [id number] Monocyte distribution width [Entitic volume] in Blood by AutomatedOrdered By: Paramjit Yanes on 06-29-2024 Monocyte distribution width Auto (Bld) [Entitic vol] 17.44 % 0.00-20.00 [facility] Monocyte distribution width Auto (Bld) [Entitic vol] Monocyte distribution width [Entitic volume] in Blood by Automated 0.00-20.00 [facility] Monocytes Auto (Bld) [#/Vol] Ordered By: Paramjit Yanes on 06-29-2024 Monocytes (Bld) [#/Vol] Automated blood monocyte count 0.0-0.8 [facility] Monocytes/100 WBC Auto (Bld) Ordered By: Paramjit Yanes on 06-29-2024 Monocytes/100 WBC (Bld) Automated monocyte % . [facility] Mucus [Presence] in Urine by AutomatedOrdered By: Paramjit Yanes on 06-29-2024 Mucus Auto Ql (U) 4+ [LPF] Abnormal [facility] Mucus Auto Ql (U) Mucus [Presence] in Urine by Automated Abnormal [facility] Neutrophils Auto (Bld) [#/Vo l]Ordered By: Paramjit Yanes on 06-29-2024 Neutrophils (Bld) [#/Vol] Neutrophils [#/volume] in Blood by Automated count 1.8-7.7 [facility] Neutrophils [#/volume] in Bl ood by Automated countOrdered By: Paramjit Yanes on 06-29-2024 Neutrophils (Bld) [#/Vol] 5.0 10*3/uL Normal 1.8-7.7 [facility] Comment on above: Performed By: #### E CAPO, CBC, CMP ####[facility] [id number] [place] [id number] [facility] Neutrophils/100 WBC Auto (Bl d)Ordered By: Paramjit Yanes on 06-29-2024 Neutrophils/100 WBC (Bld) Automated neutrophil % . [facility] Nitrite Test strip Ql (U)Ord ered By: Paramjit Yanes on 06-29-2024 Nitrite Ql (U) Negative Negative [facility] Nitrite Ql (U) Nitrite [Presence] i n Urine by Test strip Negative [facility] No Panel InformationOrdered By: Paramjit Yanes on 06-29-2024 Estimated GFR (CKD-EPI) > 60.0 mL/Min [facility] Creatinine Clearance (Chem 91.90 [facility] Nucleated erythrocytes [Pres ence] in Blood by Automated countOrdered By: Paramjit Yanes on 06-29-2024 Nucleated RBC Auto Ql (Bld) 0.0 /100{WBC} 0-0.5 [facility] Nucleated RBC Auto Ql (Bld) Nucleated erythrocytes [Presence] in Blood by Automated count 0-0.5 [facility] Opiates [Presence] in Urine by Screen methodOrdered By: Paramjit Yanes on 06-29-2024 Opiates Screen Ql (U) Negative Negative Fir [facility] Opiates Screen Ql (U) Opiates [Presence] in Urine by Screen method Negative [facility] Phencyclidine Screen Ql (U)O rdered By: Paramjit Yanes on 06-29-2024 Phencyclidine Ql (U) Negative Negative [facility] Phencyclidine Ql (U) Phencyclidine [Pres ence] in Urine by Screen method Negative [facility] Platelet mean volume Auto (B ld) [Entitic vol]Ordered By: Paramjit Yanes on 06-29-2024 Platelet mean volume (Bld) [Entitic vol] Platelet mean volume [Entitic volume] in Blood by Automated count 6.3-10.7 [facility] Platelet mean volume [Entiti c volume] in Blood by Automated countOrdered By: Paramjit Yanes on 06-29-2024 Platelet mean volume (Bld) [Entitic vol] 7.6 fL Normal 6.3-10.7 [facility] Comment on above: Performed By: #### E CAPO, CBC, CMP ####[facility] [address] [place] [address] Platelets Auto (Bld) [#/Vol] Ordered By: Paramjit Yanes on 06-29-2024 Platelets (Bld) [#/Vol] Platelets [#/vol ume] in Blood by Automated count 150-450 [facility] Platelets [#/volume] in Bloo d by Automated countOrdered By: Paramjit Yanes on 06-29-2024 Platelets (Bld) [#/Vol] 278 10*3/uL Normal 150-450 [facility] Comment on above: Performed By: #### E CAPO, CBC, CMP ####[facility] [address] [place], [place] [id number] [facility] Potassium [Moles/volume] in Serum or PlasmaOrdered By: Paramjit Yanes on 06-29-2024 Potassium [Moles/Vol] 4.1 mmol/L Normal 3.5-5.1 [facility] Comment on above: Performed By: #### E CAPO, CBC, CMP ####[facility] [id number] [place] [address] [facility] Potassium [Moles/Vol] Potassium [Moles/v olume] in Serum or Plasma 3.5-5.1 [facility] Protein Test strip (U) [Mass /Vol]Ordered By: Paramjit Yanes on 06-29-2024 Protein (U) [Mass/Vol] Protein [Mass/vol ume] in Urine by Test strip High Negative [facility] Protein [Mass/volume] in Ser um or PlasmaOrdered By: Paramjit Yanes on 06-29-2024 Protein [Mass/Vol] 8.1 g/dL Normal 6.4-8.9 [facility] Comment on above: Performed By: #### E CAPO, CBC, CMP ####[facility] [id number] [place] [address] [facility] Protein [Mass/Vol] Protein [Mass/volume ] in Serum or Plasma 6.4-8.9 [facility] Protein [Mass/volume] in Uri ne by Test stripOrdered By: Paramjit Yanes on 06-29-2024 Protein (U) [Mass/Vol] 20 mg/dL High Negative [facility] Comment on above: Order Comment: Name Collection Type:: Clean-Voided Midstream Performed By: #### U HCG, URDS, ADDONUAPLUS ####[facility] Uyg9301 [place] [address] [facility] RBC Auto (Bld) [#/Vol]Ordere d By: Paramjit Yanes on 06-29-2024 RBC (Bld) [#/Vol] Erythrocytes [#/volu me] in Blood by Automated count 3.60-5.00 [facility] Serum globulin measurement b y calculation (mass/volume)Ordered By: Paramjit Yanes on 06-29-2024 Globulin (S) [Mass/Vol] 3.0 g/dL Normal [facility] Comment on above: Performed By: #### E CAPO CBC, CMP ####[place] [address] Serum or plasma albumin/glob ulin mass ratioOrdered By: Paramjit Yanes on 06-29-2024 Albumin/Globulin [Mass ratio] 1.7 {ratio} Normal [facility] Comment on above: Performed By: #### E CAPO CBC, CMP ####[address] Albumin/Globulin [Mass ratio] Serum or plasma albumin/globulin mass ratio [facility] Serum or plasma anion gap de terminationOrdered By: Paramjit Yanes on 06-29-2024 Anion gap [Moles/Vol] 8.5 mmol/L Normal 6.0-15.0 [facility] Comment on above: Performed By: #### E CAPO CBC, CMP ####[address] Anion gap [Moles/Vol] Serum or plasma an ion gap determination 6.0-15.0 [facility] Sodium [Moles/volume] in Ser um or PlasmaOrdered By: Paramjit Yanes on 06-29-2024 Sodium [Moles/Vol] 138 mmol/L Normal 136-145 [facility] Comment on above: Performed By: #### E CAPO CBC, CMP ####[address] Sodium [Moles/Vol] Sodium [Moles/volume ] in Serum or Plasma 136-145 [facility] Specific gravity Test strip (U) [Rel density]Ordered By: Paramjit Yanes on 06-29-2024 Specific gravity (U) [Rel density] 1.026 1.001-1.03 0 [facility] Specific gravity (U) [Rel density] Specific gravity of Urine by Test strip 1.001-1.03 0 [facility] Urea nitrogen [Mass/volume] in Serum or PlasmaOrdered By: Paramjit Yanes on 06-29-2024 Urea nitrogen [Mass/Vol] 9 mg/dL Normal 7-25 [facility] Comment on above: Performed By: #### E CAPO, CBC, CMP ####[facility] [id number] [address] Urea nitrogen [Mass/Vol] Urea nitrogen [Mass/volume] in Serum or Plasma 04-02 [facility] Urine appearanceOrdered By: Paramjit Yanes on 06-29-2024 Appearance (U) Clear Normal Clear [facility] Comment on above: Order Comment: Name Collection Type:: Clean-Voided Midstream Performed By: #### U HCG, URDS, ADDONUAPLUS ####[place] [address] Urobilinogen Test strip (U) [Mass/Vol]Ordered By: Paramjit Yanes on 06-29-2024 Urobilinogen (U) [Mass/Vol] Normal mg/dL Normal [facility] Urobilinogen (U) [Mass/Vol] Urobilinogen [Mass/volume] in Urine by Test strip Normal [facility] WBC Auto (Bld) [#/Vol]Ordere d By: Paramjit Yanes on 06-29-2024 WBC (Bld) [#/Vol] Leukocytes [#/volume ] in Blood by Automated count 3.8-11.6 [facility] pH Test strip (U)Ordered By: Paramjit Yanes on 06-29-2024 pH (U) pH of Urine by Test strip 5.0-9.0 [facility] pH of Urine by Test stripOrd ered By: Paramjit Yanes on 06-29-2024 pH (U) 6.5 [pH] Normal 5.0-9.0 [facility] Comment on above: Order Comment: Name Collection Type:: Clean-Voided Midstream Performed By: #### U HCG, URDS, ADDONUAPLUS ####[place] [address] Alanine aminotransferase [En zymatic activity/volume] in Serum or PlasmaOrdered By: Derek Phipps on 04-17-2024 ALT [Catalytic activity/Vol] 8 U/L Normal [facility] Comment on above: Performed By: #### H EPATIC, LIPASE, CBC, BMP ####[address] Albumin [Mass/volume] in Ser um or Plasma by Bromocresol green (BCG) dye binding methoOrdered By: Derek Phipps on 04-17-2024 Albumin BCG dye [Mass/Vol] 4.7 g/dL 3.5-5.7 [facility] Alkaline phosphatase [Enzyma tic activity/volume] in Serum or PlasmaOrdered By: Derek Phipps on 04-17-2024 ALP [Catalytic activity/Vol] 40 U/L Normal 34-104 [facility] Comment on above: Performed By: #### H EPATIC, LIPASE, CBC, BMP ####[place] [id number] Amphetamine Screen Ql (U)Ord ered By: Derek Phipps on 04-17-2024 Amphetamines Ql (U) Negative Negative [facility] Aspartate aminotransferase [ Enzymatic activity/volume] in Serum or PlasmaOrdered By: Derek Phipps on 04-17-2024 AST [Catalytic activity/Vol] 15 U/L Normal 13-39 [facility] Comment on above: Performed By: #### H EPATIC, LIPASE, CBC, BMP ####[address] Automated basophil %Ordered By: Derek Phipps on 04-17-2024 Basophils/100 WBC (Bld) 0.3 % Normal . [facility] Comment on above: Performed By: #### H EPATIC, LIPASE, CBC, BMP ####[address] Automated basophil countOrde red By: Derek Phipps on 04-17-2024 Basophils (Bld) [#/Vol] 0.0 10*3/uL Normal 0.0-0.2 [facility] Comment on above: Result Comment: PERF ORMED BY: [facility] [address] [place] [address] PATHOLOGIST FAMILY SERVICE AIDE KIERSTEN BYNUM M.D. Performed By: #### H EPATIC, LIPASE, CBC, BMP ####[address] Automated blood monocyte cou ntOrdered By: Derek Phipps on 04-17-2024 Monocytes (Bld) [#/Vol] 0.3 10*3/uL Normal 0.0-0.8 [facility] Comment on above: Performed By: #### H EPATIC, LIPASE, CBC, BMP ####[address] Automated eosinophil %Ordere d By: Derek Phipps on 04-17-2024 Eosinophils/100 WBC (Bld) 1.8 % Normal . [facility] Comment on above: Performed By: #### H EPATIC, LIPASE, CBC, BMP ####[address] Automated eosinophil countOr dered By: Derek Phipps on 04-17-2024 Eosinophils (Bld) [#/Vol] 0.2 10*3/uL Normal 0.0-0.45 [facility] Comment on above: Performed By: #### H EPATIC, LIPASE, CBC, BMP ####[address] Automated monocyte %Ordered By: Derek Phipps on 04-17-2024 Monocytes/100 WBC (Bld) 3.4 % Normal . [facility] Comment on above: Performed By: #### H EPATIC, LIPASE, CBC, BMP ####[address] Automated neutrophil %Ordere d By: Derek Phipps on 04-17-2024 Neutrophils/100 WBC (Bld) 83.6 % Normal . [facility] Comment on above: Performed By: #### H EPATIC, LIPASE, CBC, BMP ####[address] Bacteria [Presence] in Urine by AutomatedOrdered By: Derek Phipps on 04-17-2024 Bacteria Auto Ql (U) None seen [HPF] None Seen [facility] Barbiturates [Presence] in U rine by Screen methodOrdered By: Derek Phipps on 04-17-2024 Barbiturates Screen Ql (U) Negative Negative [facility] Basic Metabolic Panelon Creatinine Clr Calc Pharmacy 94.59 Normal [facility] Comment on above: Performed By: #### H EPATIC, LIPASE, CBC, BMP ####[facility] [id number] GFR/1.73 sq M.predicted MDRD (S/P/Bld) [Vol rate/Area] mL/min/{1.73_m2} Normal [facility] Comment on above: Performed By: #### H EPATIC, LIPASE, CBC, BMP ####[facility] Benzodiazepines Screen Ql (U )Ordered By: Derek Phipps on 04-17-2024 Benzodiazepines Ql (U) Negative Negative [facility] Benzoylecgonine [Presence] i n Urine by Screen methodOrdered By: Derek Phipps on 04-17-2024 Benzoylecgonine Screen Ql (U) Negative Negative [facility] Bilirubin Test strip Ql (U)O rdered By: Derek Phipps on 04-17-2024 Bilirubin Ql (U) Negative Negative [facility] Bilirubin.direct [Mass/volum e] in Serum or PlasmaOrdered By: Derek Phipps on 04-17-2024 Bilirubin.direct [Mass/Vol] 0.10 mg/dL 0.03-0.18 [facility] Bilirubin.total [Mass/volume ] in Serum or PlasmaOrdered By: Derek Phipps on 04-17-2024 Bilirubin [Mass/Vol] 0.6 mg/dL Normal 0.3-1.0 [facility] Comment on above: Performed By: #### H EPATIC, LIPASE, CBC, BMP ####[facility] Calcium [Mass/volume] in Ser um or PlasmaOrdered By: Derek Phipps on 04-17-2024 Calcium [Mass/Vol] 9.5 mg/dL Normal 8.6-10.3 [facility] Comment on above: Performed By: #### H EPATIC, LIPASE, CBC, BMP ####[place] [address] Cannabinoids [Presence] in U rine by Screen methodOrdered By: Derek Phipps on 04-17-2024 Cannabinoids Screen Ql (U) Positive High Negative [facility] Comment on above: These are unconfirme d results and should not be used for legal purposes. Drug Cut-Off Concentration: AMPH 1000 ng/mL VENKATA 200 ng/mL BREANNA 200 ng/mL COCM 300 ng/mL OP 300 ng/mL PCP 25 ng/mL THC 20 ng/mL Carbon dioxide, total [Moles /volume] in Serum or PlasmaOrdered By: Derek Phipps on 04-17-2024 CO2 [Moles/Vol] 29.5 mmol/L Normal 21.0-31.0 [facility] Comment on above: Performed By: #### H EPATIC, LIPASE, CBC, BMP ####[place] [address] Chloride [Moles/volume] in S isabel or PlasmaOrdered By: Derek Phipps on 04-17-2024 Chloride [Moles/Vol] 105 mmol/L Normal 98-107 [facility] Comment on above: Performed By: #### H EPATIC, LIPASE, CBC, BMP ####[place] [address] Color of Urine by AutoOrdere d By: Derek Phipps on 04-17-2024 Color (U) Yellow Normal Yellow [facility] Comment on above: Order Comment: Name Collection Type:: Clean-Voided Midstream Performed By: #### U HCG, ADDONUAPLUS, URDS #### [facility] [address] Complete Blood Count Auto Di ffon 04-17-2024 Mean Corpuscular HGB Conc 33.9 g/dL Normal 32.0-35.0 [facility] Comment on above: Performed By: #### H EPATIC, LIPASE, CBC, BMP ####[place] [address] Monocytes/100 WBC (Bld) 19.53 % Normal 0.00-20.00 [facility] Comment on above: Performed By: #### H EPATIC, LIPASE, CBC, BMP ####[facility] NRBC% 0.0 /100{WBC} Normal 0-0.5 [facility] Comment on above: Performed By: #### H EPATIC, LIPASE, CBC, BMP ####[address] Creatinine [Mass/volume] in Serum or PlasmaOrdered By: Derek Phipps on 04-17-2024 Creatinine [Mass/Vol] 0.62 mg/dL Normal 0.60-1.20 [facility] Comment on above: Performed By: #### H EPATIC, LIPASE, CBC, BMP ####[address] Dipstick and Microscopicon 0 04-17-2024 Bacteria,Urine None Seen Normal None Seen [facility] Comment on above: Order Comment: Name Collection Type:: Clean-Voided Midstream Performed By: #### U HCG, ADDONUAPLUS, URDS #### [facility] [address] [place] [address] [place] Bilirubin,Urine Negative Normal Negative [facility] Comment on above: Order Comment: Name Collection Type:: Clean-Voided Midstream Performed By: #### U HCG, ADDONUAPLUS, URDS #### [facility] [address] Glucose Ql (U) Normal Normal Normal [facility] Comment on above: Order Comment: Name Collection Type:: Clean-Voided Midstream Performed By: #### U HCG, ADDONUAPLUS, URDS #### [facility] [facility] [address] [place] [address] [place] Hyaline Casts,Urine None Normal 0-8 [facility] Comment on above: Order Comment: Name Collection Type:: Clean-Voided Midstream Performed By: #### U HCG, ADDONUAPLUS, URDS #### [facility] [address] [place] [address] [place] Mucus,Urine 4+ Critically abnormal [facility] Comment on above: Order Comment: Name Collection Type:: Clean-Voided Midstream Performed By: #### U HCG, ADDONUAPLUS, URDS #### [address] Nitrite,Urine Negative Normal Negative [facility] Comment on above: Order Comment: Name Collection Type:: Clean-Voided Midstream Performed By: #### U HCG, ADDONUAPLUS, URDS #### [address] Occult Blood,Urine Negative Normal Negative [facility] Comment on above: Order Comment: Name Collection Type:: Clean-Voided Midstream Performed By: #### U HCG, ADDONUAPLUS, URDS #### [address] Protein,Urine Trace High Negative [facility] Comment on above: Order Comment: Name Collection Type:: Clean-Voided Midstream Performed By: #### U HCG, ADDONUAPLUS, URDS #### [address] RBC,Urine 1-2 Normal 0-4 [facility] Comment on above: Order Comment: Name Collection Type:: Clean-Voided Midstream Performed By: #### U HCG, ADDONUAPLUS, URDS #### [address] Specificy [place],Urine 1.020 Normal 1.00 1-1.03 0 [facility] Comment on above: Order Comment: Name Collection Type:: Clean-Voided Midstream Performed By: #### U HCG, ADDONUAPLUS, URDS #### [place] [address] [place] Squamous Epithelial Cell,Urine 3-4 High 0-2 [facility] Comment on above: Order Comment: Name Collection Type:: Clean-Voided Midstream Performed By: #### U HCG, ADDONUAPLUS, URDS #### [address] Urobilinogen,Urine Normal Normal Normal [facility] Comment on above: Order Comment: Name Collection Type:: Clean-Voided Midstream Performed By: #### U HCG, ADDONUAPLUS, URDS #### [place] [address] [place] WBC,Urine 1-2 Normal 0-4 [facility] Comment on above: Order Comment: Name Collection Type:: Clean-Voided Midstream Performed By: #### U HCG, ADDONUAPLUS, URDS #### [place] [address] [place] Drug Screen,Urineon 04-17-20 24 Amphetamine Screen,Urine Negative Normal Negative [facility] Comment on above: Performed By: #### U HCG, ADDONUAPLUS, URDS #### [address] Barbiturate Screen,Urine Negative Normal Negative [facility] Comment on above: Performed By: #### U HCG, ADDONUAPLUS, URDS #### [address] Benzodiazepines Screen,Urine Negative Normal Negative [facility] Comment on above: Performed By: #### U HCG, ADDONUAPLUS, URDS #### [address] Cannabinoid Screen,Urine Positive High Negative [facility] Comment on above: Result Comment: Thes e are unconfirmed results and should not be used for legal purposes. Drug Cut-Off Concentration: AMPH 1000 ng/mL VENKATA 200 ng/mL BREANNA 200 ng/mL COCM 300 ng/mL OP 300 ng/mL PCP 25 ng/mL THC 20 ng/mL PERFORMED BY: [place] [address] PATHOLOGIST FAMILY SERVICE AIDE KIERSTEN BYNUM M.D. Performed By: #### U HCG, ADDONUAPLUS, URDS #### [address] Cocaine Screen,Urine Negative Normal Negative [facility] Comment on above: Performed By: #### U HCG, ADDONUAPLUS, URDS #### [facility] [address] Opiate Screen,Urine Negative Normal Negative [facility] Comment on above: Performed By: #### U HCG, ADDONUAPLUS, URDS #### [facility] [address] Phencyclidine Screen,Urine Negative Normal Negative [facility] Comment on above: Performed By: #### U HCG, ADDONUAPLUS, URDS #### [facility] [address] [place] [id number] [facility] ECG 12 lead ECGon 04-17-2024 ECG 12 lead ECG [facility] Main [place] [address] [place] [address] Electrocardiograph Report Signed Patient: Dawn Major MR#: [id number] : 2000 Acct:[id number] Age/Sex: 24 / F ADM Date: 04/17/24 Loc: ER Room: Type: [facility] ER Attending Dr: Ordering Provider: [...] Anterior leads Confirmed by Adilia Jeronimo MD ([id number]) on 04/17/2024 6:03:08 PM Referred By: Electronically Signed By: Adilia Jeronimo MD Transcribed By: MUS Signed By Adilia Jeronimo MD 06/02 Normal [facility] Epithelial cells.squamous [# /area] in Urine sediment by Automated countOrdered By: Derek Phipps on 04-17-2024 Epithelial cells.squamous Auto (Urine sed) [#/Area] 3-4 [HPF] High 0-2 [facility] Erythrocyte distribution wid th [Ratio] by Automated countOrdered By: Derek Phipps on 04-17-2024 Erythrocyte distribution width (RBC) [Ratio] 13.0 % Normal 11.9-15.3 [facility] Comment on above: Performed By: #### H EPATIC, LIPASE, CBC, BMP ####[facility] [address] [place] [address] [facility] Erythrocytes [#/area] in Uri ne sediment by Automated countOrdered By: Derek Phipps on 04-17-2024 RBC Auto (Urine sed) [#/Area] 1-2 [HPF] 0-4 [facility] Erythrocytes [#/volume] in B lood by Automated countOrdered By: Derek Phipps on 04-17-2024 RBC (Bld) [#/Vol] 4.66 10*6/uL Normal 3.60-5.00 [facility] Comment on above: Performed By: #### H EPATIC, LIPASE, CBC, BMP ####[place] [address] [place] [id number] [facility] Glucose [Mass/volume] in Ser um or PlasmaOrdered By: Derek Phipps on 04-17-2024 Glucose [Mass/Vol] 95 mg/dL Normal 70-100 [facility] Comment on above: ADA recommended refe rence rangeRandom Glucose Reference Range is dependent on time and content of last meal. Glucose of more than 200 mg/dL in a nonstressed, ambulatory subject supports the diagnosis of Diabetes Mellitus. Result Comment: [place] om Glucose Reference Range is dependent on time and content of last meal. Glucose of more than 200 mg/dL in a nonstressed, ambulatory subject supports the diagnosis of Diabetes Mellitus. ADA recommended reference range Performed By: #### H EPATIC, LIPASE, CBC, BMP ####[facility] [id number] [place] [address] [facility] Glucose [Mass/volume] in Uri ne by Test stripOrdered By: Derek Phipps on 04-17-2024 Glucose Test strip (U) [Mass/Vol] Normal mg/dL Normal [facility] HCG ( test) IA.rapi d Ql (U)Ordered By: Derek Phipps on 04-17-2024 HCG ( test) Ql (U) Negative [facility] HCG,Urineon 04-17-2024 Beta HCG ( test) Ql (U) Negative Normal [facility] Comment on above: Order Comment: Name Collection Type:: Clean-Voided Midstream Result Comment: PERF ORMED BY: [place] [address] PATHOLOGIST FAMILY SERVICE AIDE KIERSTEN BYNUM M.D. Performed By: #### U HCG, ADDONUAPLUS, URDS #### [facility] [address] [place] [address] Hematocrit [Volume Fraction] of Blood by Automated countOrdered By: Derek Phipps on 04-17-2024 Hematocrit (Bld) [Volume fraction] 40.8 % Normal 34.0-46.4 [facility] Comment on above: Performed By: #### H EPATIC, LIPASE, CBC, BMP ####[place] [address] Hemoglobin Test strip Ql (U) Ordered By: Derek Phipps on 04-17-2024 Hemoglobin Ql (U) Negative Negative [facility] Hemoglobin [Mass/volume] in BloodOrdered By: Derek Phipps on 04-17-2024 Hemoglobin (Bld) [Mass/Vol] 13.8 g/dL Normal 11.8-15.4 [facility] Comment on above: Performed By: #### H EPATIC, LIPASE, CBC, BMP ####[place] [address] Hepatic Panelon 04-17-2024 Albumin [Mass/Vol] 4.7 g/dL Normal 3.5-5.7 [facility] Comment on above: Performed By: #### H EPATIC, LIPASE, CBC, BMP ####[address] Bilirubin,Indirect 0.5 mg/dL Normal [facility] Comment on above: Performed By: #### H EPATIC, LIPASE, CBC, BMP ####[address] Bilirubin.indirect [Mass/Vol] 0.10 mg/dL Normal 0.03-0.18 [facility] Comment on above: Performed By: #### H EPATIC, LIPASE, CBC, BMP ####[facility] [address] [place] [address] [place] Hyaline casts [#/area] in Ur ine sediment by Automated countOrdered By: Derek Phipps on 04-17-2024 Hyaline casts Auto (Urine sed) [#/Area] None [LPF] 0-8 [facility] Ketones [Presence] in Urine by Test stripOrdered By: Derek Phipps on 04-17-2024 Ketones Ql (U) Negative Normal Negative [facility] Comment on above: Order Comment: Name Collection Type:: Clean-Voided Midstream Performed By: #### U HCG, ADDONUAPLUS, URDS #### [facility] [address] [place] [address] [place] Leukocyte esterase [Presence ] in Urine by Test stripOrdered By: Derek Phipps on 04-17-2024 Leukocyte esterase Test strip Ql (U) Negative Normal Negative [facility] Comment on above: Order Comment: Name Collection Type:: Clean-Voided Midstream Performed By: #### U HCG, ADDONUAPLUS, URDS #### [facility] [address] [place] [address] [place] Leukocytes [#/area] in Urine sediment by Automated countOrdered By: Derek Phipps on 04-17-2024 WBC Auto (Urine sed) [#/Area] 1-2 [HPF] 0-4 [facility] Leukocytes [#/volume] correc michael for nucleated erythrocytes in Blood by Automated counOrdered By: Derek Phipps on 04-17-2024 WBC corrected for nucl RBC Auto (Bld) [#/Vol] 8.7 10*3/uL 3.8-11.6 [facility] Leukocytes [#/volume] in Blo od by Automated countOrdered By: Derek Phipps on 04-17-2024 WBC (Bld) [#/Vol] 8.7 10*3/uL Normal 3.8-11.6 [facility] Comment on above: Performed By: #### H EPATIC, LIPASE, CBC, BMP ####[place] [address] [place] [id number] [facility] Lipase [Enzymatic activity/v olume] in Serum or PlasmaOrdered By: Derek Phipps on 04-17-2024 Lipase [Catalytic activity/Vol] 20.0 U/L Normal 11.0-82.0 [facility] Comment on above: Result Comment: PERF ORMED BY: [facility] [address] [place] [id number] PATHOLOGIST FAMILY SERVICE AIDE KIERSTEN BYNUM M.D. Performed By: #### H EPATIC, LIPASE, CBC, BMP ####[place] [id number] [facility] Lymphocytes [#/volume] in Bl ood by Automated countOrdered By: Derek Phipps on 04-17-2024 Lymphocytes (Bld) [#/Vol] 0.9 10*3/uL Low 1.00-4.8 [facility] Comment on above: Performed By: #### H EPATIC, LIPASE, CBC, BMP ####[address] Lymphocytes/100 leukocytes i n Blood by Automated countOrdered By: Derek Phipps on 04-17-2024 Lymphocytes/100 WBC (Bld) 10.9 % Normal . [facility] Comment on above: Performed By: #### H EPATIC, LIPASE, CBC, BMP ####[place] [id number] [facility] MCH [Entitic mass] by Automa michael countOrdered By: Derek Phipps on 04-17-2024 MCH (RBC) [Entitic mass] 29.7 pg Normal 24.7-34.3 [facility] Comment on above: Performed By: #### H EPATIC, LIPASE, CBC, BMP ####[address] MCHC Auto (RBC) [Mass/Vol]Or dered By: Derek Phipps on 04-17-2024 MCHC (RBC) [Mass/Vol] 33.9 g/dL 32.0-35.0 [facility] MCV [Entitic volume] by Auto mated countOrdered By: Derek Phipps on 04-17-2024 MCV (RBC) [Entitic vol] 87.6 fL Normal 80-100 F [facility] Comment on above: Performed By: #### H EPATIC, LIPASE, CBC, BMP ####[facility] [address] [place] [address] [place] Monocyte distribution width [Entitic volume] in Blood by AutomatedOrdered By: Derek Phipps on 04-17-2024 Monocyte distribution width Auto (Bld) [Entitic vol] 19.53 % 0.00-20.00 [facility] Mucus [Presence] in Urine by AutomatedOrdered By: Derek Phipps on 04-17-2024 Mucus Auto Ql (U) 4+ [LPF] Abnormal [facility] Neutrophils [#/volume] in Bl ood by Automated countOrdered By: Derek Phipps on 04-17-2024 Neutrophils (Bld) [#/Vol] 7.3 10*3/uL Normal 1.8-7.7 [facility] Comment on above: Performed By: #### H EPATIC, LIPASE, CBC, BMP ####[facility] [id number] Nitrite Test strip Ql (U)Ord ered By: Derek Phipps on 04-17-2024 Nitrite Ql (U) Negative Negative [facility] No Panel InformationOrdered By: Derek Phipps on 04-17-2024 Estimated GFR (CKD-EPI) > 60.0 mL/Min [facility] Creatinine Clearance (Chem 94.59 [facility] Nucleated erythrocytes [Pres ence] in Blood by Automated countOrdered By: Derek Phipps on 04-17-2024 Nucleated RBC Auto Ql (Bld) 0.0 /100{WBC} 0-0.5 [facility] Opiates [Presence] in Urine by Screen methodOrdered By: Derek Phipps on 04-17-2024 Opiates Screen Ql (U) Negative Negative Fir [facility] Phencyclidine Screen Ql (U)O rdered By: Derek Phipps on 04-17-2024 Phencyclidine Ql (U) Negative Negative [facility] Platelet mean volume [Entiti c volume] in Blood by Automated countOrdered By: Derek Phipps on 04-17-2024 Platelet mean volume (Bld) [Entitic vol] 7.8 fL Normal 6.3-10.7 [facility] Comment on above: Performed By: #### H EPATIC, LIPASE, CBC, BMP ####[place] [address] Platelets [#/volume] in Bloo d by Automated countOrdered By: Derek Phipps on 04-17-2024 Platelets (Bld) [#/Vol] 253 10*3/uL Normal 150-450 [facility] Comment on above: Performed By: #### H EPATIC, LIPASE, CBC, BMP ####[address] Potassium [Moles/volume] in Serum or PlasmaOrdered By: Derek Phipps on 04-17-2024 Potassium [Moles/Vol] 3.8 mmol/L Normal 3.5-5.1 [facility] Comment on above: Performed By: #### H EPATIC, LIPASE, CBC, BMP ####[address] Protein Test strip (U) [Mass /Vol]Ordered By: Derek Phipps on 04-17-2024 Protein (U) [Mass/Vol] Trace mg/dL High Negative F [facility] Protein [Mass/volume] in Ser um or PlasmaOrdered By: Derek Phipps on 04-17-2024 Protein [Mass/Vol] 7.4 g/dL Normal 6.4-8.9 [facility] Comment on above: Performed By: #### H EPATIC, LIPASE, CBC, BMP ####[place] [id number] [facility] Serum globulin measurement b y calculation (mass/volume)Ordered By: Derek Phipps on 04-17-2024 Globulin (S) [Mass/Vol] 2.7 g/dL Normal F [facility] Comment on above: Performed By: #### H EPATIC, LIPASE, CBC, BMP ####[place] [id number] [facility] Serum or plasma albumin/glob ulin mass ratioOrdered By: Derek Phipps on 04-17-2024 Albumin/Globulin [Mass ratio] 1.7 {ratio} Normal [facility] Comment on above: Performed By: #### H EPATIC, LIPASE, CBC, BMP ####[place] [address] Serum or plasma anion gap de terminationOrdered By: Derek Phipps on 04-17-2024 Anion gap [Moles/Vol] 9.3 mmol/L Normal 6.0-15.0 [facility] Comment on above: Performed By: #### H EPATIC, LIPASE, CBC, BMP ####[address] Serum or plasma non-glucuron idated bilirubin measurement (mass/volume)Ordered By: Derek Phipps on 04-17-2024 Bilirubin.indirect [Mass/Vol] 0.5 mg/dL [facility] Sodium [Moles/volume] in Ser um or PlasmaOrdered By: Derek Phipps on 04-17-2024 Sodium [Moles/Vol] 140 mmol/L Normal 136-145 [facility] Comment on above: Performed By: #### H EPAKEVON, LIPASE, CBC, BMP ####[address] Specific gravity Test strip (U) [Rel density]Ordered By: Derek Phipps on 04-17-2024 Specific gravity (U) [Rel density] 1.020 1.001-1.03 0 [facility] Urea nitrogen [Mass/volume] in Serum or PlasmaOrdered By: Derek Phipps on 04-17-2024 Urea nitrogen [Mass/Vol] 6 mg/dL Low 7-25 [facility] Comment on above: Performed By: #### H EPATIC, LIPASE, CBC, BMP ####[address] Urine appearanceOrdered By: Derek Phipps on 04-17-2024 Appearance (U) Clear Normal Clear [facility] Comment on above: Order Comment: Name Collection Type:: Clean-Voided Midstream Performed By: #### U HCG, ADDONUAPLUS, URDS #### [facility] [address] Urobilinogen Test strip (U) [Mass/Vol]Ordered By: Derek Phipps on 04-17-2024 Urobilinogen (U) [Mass/Vol] Normal mg/dL Normal [facility] pH of Urine by Test stripOrd ered By: Derek Phipps on 04-17-2024 pH (U) 7.5 [pH] Normal 5.0-9.0 [facility] Comment on above: Order Comment: Name Collection Type:: Clean-Voided Midstream Performed By: #### U HCG, ADDONUAPLUS, URDS #### [facility] [address] Basophils Auto (Bld) [#/Vol] Ordered By: Sedrick Wells on 10-13-2023 Basophils (Bld) [#/Vol] 0.0 10*3/uL 0.0-0.2 [facility] Basophils/100 WBC Auto (Bld) Ordered By: Sedrick Wells on 10-13-2023 Basophils/100 WBC (Bld) 0.6 % . F [facility] Calcium [Mass/volume] in Ser um or PlasmaOrdered By: Sedrick Wells on 10-13-2023 Calcium [Mass/Vol] 9.0 mg/dL 8.6-10.3 [facility] Carbon dioxide, total [Moles /volume] in Serum or PlasmaOrdered By: Sedrick Wells on 10-13-2023 CO2 [Moles/Vol] 28.6 mmol/L 21.0-31.0 [facility] Chloride [Moles/volume] in S isabel or PlasmaOrdered By: Sedrick Wells on 10-13-2023 Chloride [Moles/Vol] 107 mmol/L 98-107 [facility] Choriogonadotropin.beta subu nit [Units/volume] in Serum or PlasmaOrdered By: Sedrick Wells on 10-13-2023 HCG.beta subunit Qn Negative [facility] Creatine kinase [Enzymatic a ctivity/volume] in Serum or PlasmaOrdered By: Sedrick Wells on 10-13-2023 CK [Catalytic activity/Vol] 42 U/L 30-223 [facility] Creatinine [Mass/volume] in Serum or PlasmaOrdered By: Sedrick Wells on 10-13-2023 Creatinine [Mass/Vol] 0.51 mg/dL 0.60-1.20 [facility] Eosinophils Auto (Bld) [#/Vo l]Ordered By: Sedrick Wells on 10-13-2023 Eosinophils (Bld) [#/Vol] 0.3 10*3/uL 0.0-0.45 [facility] Eosinophils/100 WBC Auto (Bl d)Ordered By: Sedrick Wells on 10-13-2023 Eosinophils/100 WBC (Bld) 3.8 % . [facility] Erythrocyte distribution wid th Auto (RBC) [Ratio]Ordered By: Sedrick Wells on 10-13-2023 Erythrocyte distribution width (RBC) [Ratio] 13.9 % 11.9-15.3 [facility] Glucose [Mass/volume] in Ser um or PlasmaOrdered By: Sedrick Wells on 10-13-2023 Glucose [Mass/Vol] 80 mg/dL 70-100 [facility] Comment on above: ADA recommended refe rence rangeRandom Glucose Reference Range is dependent on time and content of last meal. Glucose of more than 200 mg/dL in a nonstressed, ambulatory subject supports the diagnosis of Diabetes Mellitus. Hematocrit Auto (Bld) [Volum e fraction]Ordered By: Sedrick Wells on 10-13-2023 Hematocrit (Bld) [Volume fraction] 34.6 % 34.0-46.4 [facility] Hemoglobin [Mass/volume] in BloodOrdered By: Sedrick Wells on 10-13-2023 Hemoglobin (Bld) [Mass/Vol] 11.8 g/dL 11.8-15.4 [facility] Leukocytes [#/volume] correc michael for nucleated erythrocytes in Blood by Automated counOrdered By: Sedrick Wells on 10-13-2023 WBC corrected for nucl RBC Auto (Bld) [#/Vol] 6.9 10*3/uL 3.8-11.6 [facility] Lymphocytes Auto (Bld) [#/Vo l]Ordered By: Sedrick Wells on 10-13-2023 Lymphocytes (Bld) [#/Vol] 1.5 10*3/uL 1.00-4.8 [facility] Lymphocytes/100 WBC Auto (Bl d)Ordered By: Sedrick Welsl on 10-13-2023 Lymphocytes/100 WBC (Bld) 21.5 % . [facility] MCH Auto (RBC) [Entitic mass ]Ordered By: Sedrick Wells on 10-13-2023 MCH (RBC) [Entitic mass] 29.3 pg 24.7-34.3 [facility] MCHC Auto (RBC) [Mass/Vol]Or dered By: Sedrick Wells on 10-13-2023 MCHC (RBC) [Mass/Vol] 33.9 g/dL 32.0-35.0 Fir [facility] MCV Auto (RBC) [Entitic vol] Ordered By: Sedrick Wells on 10-13-2023 MCV (RBC) [Entitic vol] 86.4 fL 80-100 F [facility] Monocyte distribution width [Entitic volume] in Blood by AutomatedOrdered By: Sedrick Wells on 10-13-2023 Monocyte distribution width Auto (Bld) [Entitic vol] 16.72 % 0.00-20.00 [facility] Monocytes Auto (Bld) [#/Vol] Ordered By: Sedrick Wells on 10-13-2023 Monocytes (Bld) [#/Vol] 0.3 10*3/uL 0.0-0.8 [facility] Monocytes/100 WBC Auto (Bld) Ordered By: Sedrick Wells on 10-13-2023 Monocytes/100 WBC (Bld) 4.7 % . F [facility] Natriuretic peptide B [Mass/ Vol]Ordered By: Sedrick Wells on 10-13-2023 Natriuretic peptide B (Bld) [Mass/Vol] 30.0 pg/mL 5-100 [facility] Neutrophils Auto (Bld) [#/Vo l]Ordered By: Sedrick Wells on 10-13-2023 Neutrophils (Bld) [#/Vol] 4.8 10*3/uL 1.8-7.7 [facility] Neutrophils/100 WBC Auto (Bl d)Ordered By: Sedrick Wells on 10-13-2023 Neutrophils/100 WBC (Bld) 69.4 % . [facility] No Panel InformationOrdered By: Sedrick Wells on 10-13-2023 Estimated GFR (CKD-EPI) > 60.0 mL/Min [facility] Creatinine Clearance (Chem 118.45 [facility] Nucleated erythrocytes [Pres ence] in Blood by Automated countOrdered By: Sedrick Wells on 10-13-2023 Nucleated RBC Auto Ql (Bld) 0.1 /100{WBC} 0-0.5 [facility] Platelet mean volume Auto (B ld) [Entitic vol]Ordered By: Sedrick Wells on 10-13-2023 Platelet mean volume (Bld) [Entitic vol] 7.7 fL 6.3-10.7 [facility] Platelets Auto (Bld) [#/Vol] Ordered By: Sedrick Wells on 10-13-2023 Platelets (Bld) [#/Vol] 257 10*3/uL 150-450 [facility] Potassium [Moles/volume] in Serum or PlasmaOrdered By: Sedrick Wells on 10-13-2023 Potassium [Moles/Vol] 3.7 mmol/L 3.5-5.1 [facility] RBC Auto (Bld) [#/Vol]Ordere d By: Sedrick Wells on 10-13-2023 RBC (Bld) [#/Vol] 4.01 10*6/uL 3.60-5.00 [facility] Serum or plasma anion gap de terminationOrdered By: Sedrick Wells on 10-13-2023 Anion gap [Moles/Vol] 7.1 mmol/L 6.0-15.0 [facility] Sodium [Moles/volume] in Ser um or PlasmaOrdered By: Sedrick Wells on 10-13-2023 Sodium [Moles/Vol] 139 mmol/L 136-145 [facility] Troponin I.cardiac [Mass/vol ume] in Serum or Plasma by Detection limit <= 0.01 ng/Ordered By: Sedrick Wells on 10-13-2023 Troponin I.cardiac DL <= 0.01 ng/mL [Mass/Vol] < 2.3 pg/mL 0.0-15.0 [facility] Urea nitrogen [Mass/volume] in Serum or PlasmaOrdered By: Sedrick Wells on 10-13-2023 Urea nitrogen [Mass/Vol] 10 mg/dL 7-25 [facility] WBC Auto (Bld) [#/Vol]Ordere d By: Sedrick Wells on 10-13-2023 WBC (Bld) [#/Vol] 6.9 10*3/uL 3.8-11.6 [facility] Activated partial thrombopla stin time (aPTT) in platelet poor plasma by coagulation aOrdered By: Ashley Roberson on 09-28-2023 aPTT Coag (PPP) [Time] 31.0 s 25.1-36.5 [facility] Comment on above: A hematocrit value g reater than 55% may lead to inaccurate results in coagulation testing. Patients having hematocrit values >55% require a special collection tube for coagulation studies. Please contact the laboratory at [phone] for redraw instructions. Alanine aminotransferase [En zymatic activity/volume] in Serum or PlasmaOrdered By: Ashley Roberson on 09-28-2023 ALT [Catalytic activity/Vol] 6 U/L 7-52 [facility] Albumin [Mass/volume] in Ser um or Plasma by Bromocresol green (BCG) dye binding methoOrdered By: Ashley Roberson on 09-28-2023 Albumin BCG dye [Mass/Vol] 4.8 g/dL 3.5-5.7 [facility] Alkaline phosphatase [Enzyma tic activity/volume] in Serum or PlasmaOrdered By: Ashley Roberson on 09-28-2023 ALP [Catalytic activity/Vol] 62 U/L 34-104 [facility] Aspartate aminotransferase [ Enzymatic activity/volume] in Serum or PlasmaOrdered By: Ashley Roberson on 09-28-2023 AST [Catalytic activity/Vol] 15 U/L 13-39 [facility] Automated erythrocytes count in urine sediment (number/area)Ordered By: Ashley Roberson on 09-28-2023 RBC Auto (Urine sed) [#/Area] 1-2 [HPF] 0-4 [facility] Automated leukocytes count i n urine sediment (number/area)Ordered By: Ashley Roberson on 09-28-2023 WBC Auto (Urine sed) [#/Area] 20-49 [HPF] 0-4 [facility] Automated urine hyaline cast s count (number/volume)Ordered By: Ashley Roberson on 09-28-2023 Hyaline casts Auto (U) [#/Vol] None seen [LPF] 0-1 [facility] Basophils Auto (Bld) [#/Vol] Ordered By: Ashley Roberson on 09-28-2023 Basophils (Bld) [#/Vol] 0.1 10*3/uL 0.0-0.2 [facility] Basophils/100 WBC Auto (Bld) Ordered By: Ashlye Roberson on 09-28-2023 Basophils/100 WBC (Bld) 0.4 % . F [facility] Bilirubin Test strip Ql (U)O rdered By: Ashley Roberson on 09-28-2023 Bilirubin Ql (U) Negative Negative [facility] Bilirubin.total [Mass/volume ] in Serum or PlasmaOrdered By: Ashley Roberson on 09-28-2023 Bilirubin [Mass/Vol] 1.2 mg/dL 0.3-1.0 [facility] COVID CepheidOrdered By: Nuvia Roberson on 09-28-2023 SARS-CoV-2 (COVID-19) Ab IA Ql Negative Negative [facility] Comment on above: This is a duplicate Culture Kitchen Xpert Xpress CoV-2/Flu/RSV Plus RNA by RT-PCR result to be used for statistical tracking purpose only. SARS-CoV-2 (COVID-19) RNA OMAIRA+probe Ql (Unsp spec) [facility] Calcium [Mass/volume] in Ser um or PlasmaOrdered By: Ashley Roberson on 09-28-2023 Calcium [Mass/Vol] 10.1 mg/dL 8.6-10.3 [facility] Carbon dioxide, total [Moles /volume] in Serum or PlasmaOrdered By: Ashley Roberson on 09-28-2023 CO2 [Moles/Vol] 25.4 mmol/L 21.0-31.0 [facility] Chloride [Moles/volume] in S isabel or PlasmaOrdered By: Ashley Roberson on 09-28-2023 Chloride [Moles/Vol] 99 mmol/L 98-107 [facility] Color Auto (U)Ordered By: Sheng lorennancy Roberson on 09-28-2023 Color (U) Dark yellow Yellow [facility] Creatinine [Mass/volume] in Serum or PlasmaOrdered By: Ashley Roberson on 09-28-2023 Creatinine [Mass/Vol] 0.62 mg/dL 0.60-1.20 [facility] Eosinophils Auto (Bld) [#/Vo l]Ordered By: Ashley Roberson on 09-28-2023 Eosinophils (Bld) [#/Vol] 0.2 10*3/uL 0.0-0.45 [facility] Eosinophils/100 WBC Auto (Bl d)Ordered By: Aslhey Roberson on 09-28-2023 Eosinophils/100 WBC (Bld) 1.3 % . [facility] Erythrocyte distribution wid th Auto (RBC) [Ratio]Ordered By: Ashley Roberson on 09-28-2023 Erythrocyte distribution width (RBC) [Ratio] 13.8 % 11.9-15.3 [facility] Fibrin D-dimer [Presence] in Platelet poor plasma by Latex agglutinationOrdered By: Ashley Roberson on 09-28-2023 Fibrin D-dimer LA Ql (PPP) < 200 ng/mL 0-243 [facility] Comment on above: The reference range for [...] coagulation studies. Please contact the laboratory at [phone] for redraw instructions. Globulin Calc (S) [Mass/Vol] Ordered By: Ashley Roberson on 09-28-2023 Globulin (S) [Mass/Vol] 3.3 g/dL F [facility] Glucose Glucometer (BldC) [M ass/Vol]Ordered By: Ashley Roberson on 09-28-2023 Glucose [Mass/Vol] 113 mg/dL [facility] Comment on above: Random Glucose Refer ence Range is dependent on time and content of last meal. Glucose of more than 200 mg/dL in a nonstressed, ambulatory subject supports the diagnosis of Diabetes Mellitus. Glucose [Mass/volume] in Ser um or PlasmaOrdered By: Ashley Roberson on 09-28-2023 Glucose [Mass/Vol] 59 mg/dL 70-100 [facility] Comment on above: ADA recommended refe rence rangeRandom Glucose Reference Range is dependent on time and content of last meal. Glucose of more than 200 mg/dL in a nonstressed, ambulatory subject supports the diagnosis of Diabetes Mellitus. HCG ( test) IA.rapi d Ql (U)Ordered By: Ashley Roberson on 09-28-2023 HCG ( test) Ql (U) Negative [facility] Hematocrit Auto (Bld) [Volum e fraction]Ordered By: Ashley Roberson on 09-28-2023 Hematocrit (Bld) [Volume fraction] 38.8 % 34.0-46.4 [facility] Hemoglobin [Mass/volume] in BloodOrdered By: Ashley Roberson on 09-28-2023 Hemoglobin (Bld) [Mass/Vol] 13.4 g/dL 11.8-15.4 [facility] INR in Platelet poor plasma by Coagulation assayOrdered By: Ashley Roberson on 09-28-2023 INR Coag (PPP) [Relative time] 1.2 {INR} [facility] Comment on above: INR Therapeutic Rang e [...] on 09-28-2023 Ketones (U) [Mass/Vol] 4+ Negative [facility] Leukocytes [#/volume] correc michael for nucleated erythrocytes in Blood by Automated counOrdered By: Ashley Roberson on 09-28-2023 WBC corrected for nucl RBC Auto (Bld) [#/Vol] 17.6 10*3/uL 3.8-11.6 [facility] Lipase [Enzymatic activity/v olume] in Serum or PlasmaOrdered By: Ashley Roberson on 09-28-2023 Lipase [Catalytic activity/Vol] 15.0 U/L 11.0-82.0 [facility] Lymphocytes Auto (Bld) [#/Vo l]Ordered By: Ashley Roberson on 09-28-2023 Lymphocytes (Bld) [#/Vol] 1.4 10*3/uL 1.00-4.8 [facility] Lymphocytes/100 WBC Auto (Bl d)Ordered By: Ashley Roberson on 09-28-2023 Lymphocytes/100 WBC (Bld) 8.2 % . [facility] MCH Auto (RBC) [Entitic mass ]Ordered By: Ashley Roberson on 09-28-2023 MCH (RBC) [Entitic mass] 29.5 pg 24.7-34.3 [facility] MCHC Auto (RBC) [Mass/Vol]Or dered By: Ashley Roberson on 09-28-2023 MCHC (RBC) [Mass/Vol] 34.6 g/dL 32.0-35.0 [facility] MCV Auto (RBC) [Entitic vol] Ordered By: Ashley Roberson on 09-28-2023 MCV (RBC) [Entitic vol] 85.4 fL 80-100 F [facility] Monocyte distribution width [Entitic volume] in Blood by AutomatedOrdered By: Ashley Roberson on 09-28-2023 Monocyte distribution width Auto (Bld) [Entitic vol] 20.66 % 0.00-20.00 [facility] Comment on above: For adults in ED, MD W > 20.0 may be associated with a higher risk of sepsis during the first 12 hrs of hospital admission Monocytes Auto (Bld) [#/Vol] Ordered By: Ashley Roberson on 09-28-2023 Monocytes (Bld) [#/Vol] 0.7 10*3/uL 0.0-0.8 [facility] Monocytes/100 WBC Auto (Bld) Ordered By: Ashley Roberson on 09-28-2023 Monocytes/100 WBC (Bld) 4.2 % . F [facility] Neutrophils Auto (Bld) [#/Vo l]Ordered By: Ashley Roberson on 09-28-2023 Neutrophils (Bld) [#/Vol] 15.1 10*3/uL 1.8-7.7 [facility] Neutrophils/100 WBC Auto (Bl d)Ordered By: Ashley Roberson on 09-28-2023 Neutrophils/100 WBC (Bld) 85.9 % . [facility] Nitrite Test strip Ql (U)Ord ered By: Ashley Roberson on 09-28-2023 Nitrite Ql (U) Negative Negative [facility] No Panel InformationOrdered By: Ashley Roberson on 09-28-2023 Bedside Glucose Comment See comment [facility] Comment on above: Glu2: WILL NOTIFY /RN Estimated GFR (CKD-EPI) > 60.0 mL/Min [facility] Creatinine Clearance (Chem 92.34 [facility] Nucleated erythrocytes [Pres ence] in Blood by Automated countOrdered By: Ashley Roberson on 09-28-2023 Nucleated RBC Auto Ql (Bld) 0.1 /100{WBC} 0-0.5 [facility] Platelet mean volume Auto (B ld) [Entitic vol]Ordered By: Ashley Roberson on 09-28-2023 Platelet mean volume (Bld) [Entitic vol] 8.0 fL 6.3-10.7 [facility] Platelets Auto (Bld) [#/Vol] Ordered By: Ashley Roberson on 09-28-2023 Platelets (Bld) [#/Vol] 377 10*3/uL 150-450 [facility] Potassium [Moles/volume] in Serum or PlasmaOrdered By: Ashley Roberson on 09-28-2023 Potassium [Moles/Vol] 3.8 mmol/L 3.5-5.1 [facility] Protein Auto test strip (U) [Mass/Vol]Ordered By: Ashley Roberson on 09-28-2023 Protein (U) [Mass/Vol] 30 mg/dL Negative [facility] Protein [Mass/volume] in Ser um or PlasmaOrdered By: Ashley Roberson on 09-28-2023 Protein [Mass/Vol] 8.1 g/dL 6.4-8.9 [facility] Prothrombin time (PT)Ordered By: Ashley Roberson on 09-28-2023 PT Coag (PPP) [Time] 13.8 s 9.0-12.9 [facility] Comment on above: A hematocrit value g reater than 55% may lead to inaccurate results in coagulation testing. Patients having hematocrit values >55% require a special collection tube for coagulation studies. Please contact the laboratory at [phone] for redraw instructions. RBC Auto (Bld) [#/Vol]Ordere d By: Ashley Roberson on 09-28-2023 RBC (Bld) [#/Vol] 4.55 10*6/uL 3.60-5.00 [facility] Serum or plasma albumin/glob ulin mass ratioOrdered By: Ashley Roberson on 09-28-2023 Albumin/Globulin [Mass ratio] 1.5 {ratio} [facility] Serum or plasma anion gap de terminationOrdered By: Ashley Roberson on 09-28-2023 Anion gap [Moles/Vol] 18.4 mmol/L 6.0-15.0 [facility] Sodium [Moles/volume] in Ser um or PlasmaOrdered By: Ashley Roberson 09-28-2023 Sodium [Moles/Vol] 139 mmol/L 136-145 [facility] Specific gravity Auto test s trip (U) [Rel density]Ordered By: Ashley Roberson 09-28-2023 Specific gravity (U) [Rel density] 1.030 1.001-1.03 0 [facility] Squamous epithelial cells de tection in urine sediment by light microscopyOrdered By: Ashley Roberson on 09-28-2023 Epithelial cells.squamous LM Ql (Urine sed) 3-4 [HPF] 0-2 [facility] Troponin I.cardiac [Mass/vol ume] in Serum or Plasma by Detection limit <= 0.01 ng/Ordered By: Ashley Roberson on 09-28-2023 Troponin I.cardiac DL <= 0.01 ng/mL [Mass/Vol] 3.3 pg/mL 0.0-15.0 [facility] Urea nitrogen [Mass/volume] in Serum or PlasmaOrdered By: Ashley Roberson on 09-28-2023 Urea nitrogen [Mass/Vol] 12 mg/dL 7-25 [facility] Urine bacteria detection by automated methodOrdered By: Ashley Roberson on 09-28-2023 Bacteria Auto Ql (U) None seen None Seen [facility] Urine clarity by refractomet ry automatedOrdered By: Ashley Roberson on 09-28-2023 Clarity Refractometry automated (U) Clear Clear [facility] Urine culture routineOrdered By: Ashley Roberson on 09-28-2023 Bacteria identified Cx Nom (U) Strep agalactiae - (group b) [facility] Urine glucose measurement by automated test strip (mass/volume)Ordered By: Ashley Roberson on 09-28-2023 Glucose Auto test strip (U) [Mass/Vol] Normal mg/dL Normal [facility] Urine hemoglobin detection b y automated test stripOrdered By: Ashley Roberson on 09-28-2023 Hemoglobin Auto test strip Ql (U) Negative Negative [facility] Urine leukocyte esterase det ection by automated test stripOrdered By: Ashley Roberson on 09-28-2023 Leukocyte esterase Auto test strip Ql (U) 3+ Negative [facility] Urobilinogen Auto test strip (U) [Mass/Vol]Ordered By: Ashley Roberson on 09-28-2023 Urobilinogen (U) [Mass/Vol] Normal mg/dL Normal [facility] WBC Auto (Bld) [#/Vol]Ordere d By: Ashley Roberson on 09-28-2023 WBC (Bld) [#/Vol] 17.6 10*3/uL 3.8-11.6 [facility] pH Auto test strip (U)Ordere d By: Ashley Jonierik on 09-28-2023 pH (U) 6.0 [pH] 5.0-9.0 [facility] Amphetamine Screen Ql (U)Ord ered By: Jordi Seals on 09-10-2023 Amphetamines Ql (U) Negative Negative [facility] Barbiturates [Presence] in U rine by Screen methodOrdered By: Imad Asaad on 09-10-2023 Barbiturates Screen Ql (U) Negative Negative [facility] Benzodiazepines Screen Ql (U )Ordered By: Imad Asaad on 09-10-2023 Benzodiazepines Ql (U) Negative Negative [facility] Benzoylecgonine [Presence] i n Urine by Screen methodOrdered By: Imcher Asacher on 09-10-2023 Benzoylecgonine Screen Ql (U) Negative Negative [facility] Cannabinoids [Presence] in U rine by Screen methodOrdered By: Imcehr Asaad on 09-10-2023 Cannabinoids Screen Ql (U) Positive Negative [facility] Comment on above: These are unconfirme d results and should not be used for legal purposes. Drug Cut-Off Concentration: AMPH 1000 ng/mL VENKATA 200 ng/mL BREANNA 200 ng/mL COCM 300 ng/mL OP 300 ng/mL PCP 25 ng/mL THC 20 ng/mL HCG ( test) IA.rapi d Ql (U)Ordered By: Imad Asaad on 09-10-2023 HCG ( test) Ql (U) Negative [facility] Opiates [Presence] in Urine by Screen methodOrdered By: Imad Asaad on 09-10-2023 Opiates Screen Ql (U) Negative Negative [facility] Phencyclidine Screen Ql (U)O rdered By: Imad Asaad on 09-10-2023 Phencyclidine Ql (U) Negative Negative [facility] HCG ( test) IA.rapi d Ql (U)Ordered By: Imad Asaad on 06-03-2023 HCG ( test) Ql (U) Negative [facility] C reactive protein [Mass/vol ume] in Serum or PlasmaOrdered By: Jordi Seals on 05-08-2023 CRP [Mass/Vol] < 0.5 mg/dL 0.0-0.5 [facility] Calprotectin [Mass/mass] in StoolOrdered By: Jordi Seals on 05-08-2023 Calprotectin (Stl) [Mass/Mass] <5 ug/g 0-120 [facility] Comment on above: Concentration Interp retation Follow-Up< 5 - 50 ug/g Normal None>50 -120 ug/g Borderline Re-evaluate in 4-6 weeks >120 ug/g Abnormal Repeat as clinically indicatedPerformed at: [email or web address] [id number] Director: Joseph Tang MD, Phone: [phone] Clostridioides difficile tox in B tcdB gene [Presence] in Stool by OMAIRA with probe deteOrdered By: Jordi Seals on 05-08-2023 C. difficile toxin B tcdB gene OMAIRA+probe Ql (Stl) Negative Negative [facility] Comment on above: Testing performed by RT-PCR Elastase.pancreatic [Mass/ma ss] in StoolOrdered By: Jordi Seals on 05-08-2023 Elastase.pancreatic (Stl) [Mass/Mass] 284 >200 [facility] Comment on above: Result Units: ug Bambi st./g Severe Pancreatic Insufficiency: <100 Moderate Pancreatic Insufficiency: 100 - 200 Normal: >200Performed at: [email or web address] [address] [id number] Director: Joseph Tang MD, Phone: [phone] Erythrocyte sedimentation ra te by Photometric methodOrdered By: Jordi Seals on 05-08-2023 ESR Photometric method (Bld) [Velocity] 3 mm/hr 0-19 [facility] HIV 1 and HIV-2 antibody ass ay with HIV-1 p24 antigen detectionOrdered By: Jordi Seals on 05-08-2023 HIV 1+2 Ab+HIV1 p24 Ag IA Ql Non-Reactive Non Reactive [facility] Comment on above: HIV NegativeHIV-1/HI V-2 antibodies and HIV-1 p24 antigen were NOTdetected. There is no laboratory evidence of HIV infection.Performed at: [facility] - [facility] [address] [id number] Director: Mendel Rubin PhD, Phone: [phone] IgA [Mass/volume] in Serum o r PlasmaOrdered By: Jordi Seals on 05-08-2023 IgA [Mass/Vol] 260 mg/dL 87-352 [facility] Comment on above: Performed at: [facility] [address] [id number] Director: Mendel Rubin PhD, Phone: [phone] No Panel InformationOrdered By: Jordi Seals on 05-08-2023 Endomysial IgA Antibody Negative Negative F [facility] Ova and Parasite Result 1 N/A [facility] Ova and Parasite Result 1 [facility] Ova or parasites identificat ionOrdered By: Jordi Seals on 05-08-2023 Ova and parasites identified LM Nom (Unsp spec) N/A [facility] Ova and parasites identified LM Nom (Unsp spec) [facility] Serum gliadin peptide IgA an tibody assay (units/volume)Ordered By: Jordi Seals on 05-08-2023 Gliadin peptide IgA Qn (S) 6 units 0-19 [facility] Comment on above: Negative 0 - 19 Weak Positive 20 - 30 Moderate to Strong Positive >30 Serum gliadin peptide IgG an tibody assay (units/volume)Ordered By: Jordi Seals on 05-08-2023 Gliadin peptide IgG Qn (S) 3 units 0-19 [facility] Comment on above: Negative 0 - 19 Weak Positive 20 - 30 Moderate to Strong Positive >30 Serum tissue transglutaminas e (tTG) IgA antibody assay (units/volume)Ordered By: Jordi Seals on 05-08-2023 tTG IgA Qn (S) <2 U/mL 0-3 [facility] Comment on above: Negative 0 - 3 Weak Positive 4 - 10 Positive >10 Tissue Transglutaminase (tTG) has been identified as the endomysial antigen. Studies have demonstr- ated that endomysial IgA antibodies have over 99% specificity for gluten sensitive enteropathy. Serum tissue transglutaminas e (tTG) IgG antibody assay (units/volume)Ordered By: Jordi Seals on 05-08-2023 tTG IgG Qn (S) <2 U/mL 0-5 [facility] Comment on above: Negative 0 - 5 Weak Positive 6 - 9 Positive >9 Stool ova and parasites iden tification by concentrationOrdered By: cher Seals on 05-08-2023 Ova and parasites identified Concentration Nom (Stl) N/A [facility] Stool ova and parasites iden tification by trichrome stainOrdered By: [facility] on 05-08-2023 Ova and parasites identified Trichrome stain Nom (l) N/A [facility] Thyrotropin [Units/volume] i n Serum or PlasmaOrdered By: Jordi Seals on 05-08-2023 TSH Qn 0.49 m[IU]/L 0.45-5.33 [facility] Alanine aminotransferase [En zymatic activity/volume] in Serum or PlasmaOrdered By: Vivian Nieto on 12-29-2022 ALT [Catalytic activity/Vol] 9 U/L 7-52 [facility] Albumin [Mass/volume] in Ser um or Plasma by Bromocresol green (BCG) dye binding methoOrdered By: Vivian Nieto on 12-29-2022 Albumin BCG dye [Mass/Vol] 4.9 g/dL 3.5-5.7 [facility] Alkaline phosphatase [Enzyma tic activity/volume] in Serum or PlasmaOrdered By: Vivian Nieto on 12-29-2022 ALP [Catalytic activity/Vol] 60 U/L 34-104 [facility] Aspartate aminotransferase [ Enzymatic activity/volume] in Serum or PlasmaOrdered By: Vivian Nieto on 12-29-2022 AST [Catalytic activity/Vol] 14 U/L 13-39 [facility] Automated erythrocytes count in urine sediment (number/area)Ordered By: Vivian Nieto on 12-29-2022 RBC Auto (Urine sed) [#/Area] 1-2 [HPF] 0-4 [facility] Automated leukocytes count i n urine sediment (number/area)Ordered By: Vivian Nieto on 12-29-2022 WBC Auto (Urine sed) [#/Area] 20-49 [HPF] 0-4 [facility] Automated urine hyaline cast s count (number/volume)Ordered By: Vivian Nieto on 12-29-2022 Hyaline casts Auto (U) [#/Vol] 10-19 [LPF] 0-1 [facility] Basophils Auto (Bld) [#/Vol] Ordered By: Vivian Tejadaimore on 12-29-2022 Basophils (Bld) [#/Vol] 0.0 10*3/uL 0.0-0.2 [facility] Basophils/100 WBC Auto (Bld) Ordered By: Vivian Nieto on 12-29-2022 Basophils/100 WBC (Bld) 0.4 % . F [facility] Bilirubin Test strip Ql (U)O rdered By: Vivian Nieto on 12-29-2022 Bilirubin Ql (U) Negative Negative [facility] Bilirubin.total [Mass/volume ] in Serum or PlasmaOrdered By: Vivian Nieto on 12-29-2022 Bilirubin [Mass/Vol] 0.6 mg/dL 0.3-1.0 [facility] C reactive protein [Mass/vol ume] in Serum or PlasmaOrdered By: Vivian Nieto on 12-29-2022 CRP [Mass/Vol] 3.1 mg/dL 0.0-0.5 [facility] Calcium [Mass/volume] in Ser um or PlasmaOrdered By: Vivian Tejadaimore on 12-29-2022 Calcium [Mass/Vol] 10.0 mg/dL 8.6-10.3 [facility] Carbon dioxide, total [Moles /volume] in Serum or PlasmaOrdered By: Vivian Nieto on 12-29-2022 CO2 [Moles/Vol] 26.6 mmol/L 21.0-31.0 [facility] Casts typing in urine sedime nt by light microscopyOrdered By: PROVIDER TEMP on 12-29-2022 Casts LM Nom (Urine sed) N/A [facility] Chloride [Moles/volume] in S isabel or PlasmaOrdered By: Vivian Nieto on 12-29-2022 Chloride [Moles/Vol] 103 mmol/L 98-107 [facility] Color Auto (U)Ordered By: Radha Nieto on 12-29-2022 Color (U) Dark yellow Yellow [facility] Creatinine [Mass/volume] in Serum or PlasmaOrdered By: Vivian Nieto on 12-29-2022 Creatinine [Mass/Vol] 0.55 mg/dL 0.60-1.20 [facility] Eosinophils Auto (Bld) [#/Vo l]Ordered By: Vivian Tejadaimore on 12-29-2022 Eosinophils (Bld) [#/Vol] 0.3 10*3/uL 0.0-0.45 [facility] Eosinophils/100 WBC Auto (Bl d)Ordered By: Vivian Nieto on 12-29-2022 Eosinophils/100 WBC (Bld) 3.2 % . [facility] Erythrocyte distribution wid th Auto (RBC) [Ratio]Ordered By: Vivian Nieto on 12-29-2022 Erythrocyte distribution width (RBC) [Ratio] 14.9 % 11.9-15.3 [facility] Erythrocyte sedimentation ra te by Photometric methodOrdered By: Vivian Nieto on 12-29-2022 ESR Photometric method (Bld) [Velocity] 21 mm/hr 0-19 [facility] Globulin Calc (S) [Mass/Vol] Ordered By: Vivian Nieto on 12-29-2022 Globulin (S) [Mass/Vol] 3.3 g/dL F [facility] Glucose [Mass/volume] in Ser um or PlasmaOrdered By: Vivian Nieto on 12-29-2022 Glucose [Mass/Vol] 75 mg/dL 70-100 [facility] Comment on above: ADA recommended refe rence rangeRandom Glucose Reference Range is dependent on time and content of last meal. Glucose of more than 200 mg/dL in a nonstressed, ambulatory subject supports the diagnosis of Diabetes Mellitus. HCG ( test) IA.rapi d Ql (U)Ordered By: PROVIDER TEMP on 12-29-2022 HCG ( test) Ql (U) Negative [facility] Hematocrit Auto (Bld) [Volum e fraction]Ordered By: Vivian Nieto on 12-29-2022 Hematocrit (Bld) [Volume fraction] 39.6 % 34.0-46.4 [facility] Hemoglobin [Mass/volume] in BloodOrdered By: Vivian Tejadaimore on 12-29-2022 Hemoglobin (Bld) [Mass/Vol] 13.2 g/dL 11.8-15.4 [facility] Ketones Auto test strip (U) [Mass/Vol]Ordered By: Vivian Nieto on 12-29-2022 Ketones (U) [Mass/Vol] 3+ Negative [facility] Leukocytes [#/volume] correc michael for nucleated erythrocytes in Blood by Automated counOrdered By: Vivian Nieto on 12-29-2022 WBC corrected for nucl RBC Auto (Bld) [#/Vol] 9.8 10*3/uL 3.8-11.6 [facility] Lymphocytes Auto (Bld) [#/Vo l]Ordered By: Vivian Tejadaimdebra on 12-29-2022 Lymphocytes (Bld) [#/Vol] 1.2 10*3/uL 1.00-4.8 [facility] Lymphocytes/100 WBC Auto (Bl d)Ordered By: Vivian Tejadaimdebra on 12-29-2022 Lymphocytes/100 WBC (Bld) 11.9 % . [facility] MCH Auto (RBC) [Entitic mass ]Ordered By: Vivian Tejadaimdebra on 12-29-2022 MCH (RBC) [Entitic mass] 27.5 pg 24.7-34.3 [facility] MCHC Auto (RBC) [Mass/Vol]Or dered By: Vivian Tejadaimore on 12-29-2022 MCHC (RBC) [Mass/Vol] 33.3 g/dL 32.0-35.0 [facility] MCV Auto (RBC) [Entitic vol] Ordered By: Vivian Bullimore on 12-29-2022 MCV (RBC) [Entitic vol] 82.6 fL 80-100 F [facility] Monocytes Auto (Bld) [#/Vol] Ordered By: Vivian Bullimore on 04-22-2023 Monocytes (Bld) [#/Vol] 0.5 10*3/uL 0.0-0.8 [facility] Monocytes/100 WBC Auto (Bld) Ordered By: Vivian Tejadaimore on 12-29-2022 Monocytes/100 WBC (Bld) 5.1 % . F [facility] Neutrophils Auto (Bld) [#/Vo l]Ordered By: Vivian Bullimore on 12-29-2022 Neutrophils (Bld) [#/Vol] 7.8 10*3/uL 1.8-7.7 [facility] Neutrophils/100 WBC Auto (Bl d)Ordered By: Vivian Bullimore on 12-29-2022 Neutrophils/100 WBC (Bld) 79.4 % . [facility] Nitrite Test strip Ql (U)Ord ered By: Vivian Tejadaimore on 12-29-2022 Nitrite Ql (U) Negative Negative [facility] No Panel InformationOrdered By: Vivian Nieto on 12-29-2022 Estimated GFR (CKD-EPI) > 60.0 mL/Min [facility] Creatinine Clearance (Chem 123.12 [facility] Nucleated erythrocytes [Pres ence] in Blood by Automated countOrdered By: Vivian Tejdaaimore on 12-29-2022 Nucleated RBC Auto Ql (Bld) 0.1 /100{WBC} 0-0.5 [facility] Platelet mean volume Auto (B ld) [Entitic vol]Ordered By: Vivian Bullimore on 12-29-2022 Platelet mean volume (Bld) [Entitic vol] 7.7 fL 6.3-10.7 [facility] Platelets Auto (Bld) [#/Vol] Ordered By: Vivian Tejadaimore on 12-29-2022 Platelets (Bld) [#/Vol] 305 10*3/uL 150-450 [facility] Potassium [Moles/volume] in Serum or PlasmaOrdered By: Vivian Tejadaimore on 12-29-2022 Potassium [Moles/Vol] 3.6 mmol/L 3.5-5.1 [facility] Protein Auto test strip (U) [Mass/Vol]Ordered By: Vivian Tejadaimore on 12-29-2022 Protein (U) [Mass/Vol] 30 mg/dL Negative [facility] Protein [Mass/volume] in Ser um or PlasmaOrdered By: Vivian Bullimore on 12-29-2022 Protein [Mass/Vol] 8.2 g/dL 6.4-8.9 [facility] RBC Auto (Bld) [#/Vol]Ordere d By: Vivian Bullimore on 12-29-2022 RBC (Bld) [#/Vol] 4.79 10*6/uL 3.60-5.00 [facility] Serum or plasma albumin/glob ulin mass ratioOrdered By: Vivian Tejadaimore on 12-29-2022 Albumin/Globulin [Mass ratio] 1.5 {ratio} [facility] Serum or plasma anion gap de terminationOrdered By: Vivian Bullimore on 12-29-2022 Anion gap [Moles/Vol] 14.0 mmol/L 6.0-15.0 [facility] Sodium [Moles/volume] in Ser um or PlasmaOrdered By: Vivian Bullimore on 12-29-2022 Sodium [Moles/Vol] 140 mmol/L 136-145 [facility] Specific gravity Auto test s trip (U) [Rel density]Ordered By: Vivian Tejadaaxel on 12-29-2022 Specific gravity (U) [Rel density] 1.030 1.001-1.03 0 [facility] Squamous epithelial cells de tection in urine sediment by light microscopyOrdered By: Vivian Tejadaaxel on 12-29-2022 Epithelial cells.squamous LM Ql (Urine sed) 10-19 [HPF] 0-2 [facility] Urea nitrogen [Mass/volume] in Serum or PlasmaOrdered By: Vivian Tejadaimore on 12-29-2022 Urea nitrogen [Mass/Vol] 7 mg/dL 7-25 [facility] Urine bacteria detection by automated methodOrdered By: Vivian Terrellaxel on 12-29-2022 Bacteria Auto Ql (U) None seen None Seen [facility] Urine clarity by refractomet ry automatedOrdered By: Vivian Nieto on 12-29-2022 Clarity Refractometry automated (U) Cloudy Clear [facility] Urine glucose measurement by automated test strip (mass/volume)Ordered By: Vivian Nieto on 12-29-2022 Glucose Auto test strip (U) [Mass/Vol] Normal mg/dL Normal [facility] Urine hemoglobin detection b y automated test stripOrdered By: Vivian Tejadaaxel on 12-29-2022 Hemoglobin Auto test strip Ql (U) Negative Negative [facility] Urine leukocyte esterase det ection by automated test stripOrdered By: Vivian Nieto on 12-29-2022 Leukocyte esterase Auto test strip Ql (U) 2+ Negative [facility] Urobilinogen Auto test strip (U) [Mass/Vol]Ordered By: Vivian Nieto on 12-29-2022 Urobilinogen (U) [Mass/Vol] Normal mg/dL Normal [facility] WBC Auto (Bld) [#/Vol]Ordere d By: Vivian Nieto on 12-29-2022 WBC (Bld) [#/Vol] 9.8 10*3/uL 3.8-11.6 [facility] pH Auto test strip (U)Ordere d By: Vivian Gerson on 12-29-2022 pH (U) 6.5 [pH] 5.0-9.0 [facility] Physician Referralon 023 Physician Referral [id number] Normal [facility] Ambulatory Visit Summaryon 0 11-06-2022 Ambulatory [...] Appointments Follow Up with Kayy Fontana MD, [facility], MED When: Only if needed Where: [address] [place] [phone] Someone Will Contact You Regarding These Appointments [facility] External Ambulatory Referral, Gastroenterology, 11/06/22 14:38:00 EST, Abdominal pain Normal [facility] Family Medicine Office/Clini c Noteon 11-06-2022 [...] a 22 Years White Female presenting to [facility] with GI issues for long time saw [...] pain (R10.9: Unspecified abdominal pain) referral to [facility] GI placed since [facility] unable to get her in for a couple months keep food and symptom journal avoid trigger foods Ordered: [facility] External Ambulatory Referral 2. Diarrhea (R19.7: Diarrhea, unspecified) referral to [facility] GI placed since [facility] unable to get her in for a couple months keep food and symptom journal avoid trigger foods Ordered: [facility] External Ambulatory Referral Follow-up With When Contact Information Kayy Fontana MD, [facility], MED Only if needed [address] [place] [phone] Additional Instructions: Problem List/Past Medical History Ongoing [...] vac - Not Given Patient Refuses Normal [facility] Comment on above: Result Comment: Elec tronically Signed By: Kayy Fontana MD\.br\Date and Time Signed: 11/06/22 14:45 EST Provider Letteron 11-06-2022 Provider Letter (Inserted Image. Trish ble to display) November 06, 2022 [address]WN MAJOR [address] [place] [address] DAWN MAJOR 2000 To Whom It May Concern, Please excuse above patient from work today, 11/06/22. Sincerely, Kayy Fontana MD [facility] [facility] Normal [facility] CBC AUTO DIFFon 07-24-2022 BASO # 0.1 103/ul Normal 0.0-0.1 [facility] Comment on above: Performed By: #### C BC #### [facility] [address] [place] [address] Dr. Mariela Larkin Basophils/100 WBC (Bld) 0.4 % Normal 0.2-2.0 [facility] Comment on above: Performed By: #### C BC #### [facility] [address] [place] [address] Dr. Mariela Larkin EO # 0.3 103/ul Normal 0.0-0.7 [facility] Comment on above: Performed By: #### C BC #### [facility] [address] [address] [address] Mariela Larkin Eosinophils/100 WBC (Bld) 2.2 % Normal 0.9-7.0 [facility] Comment on above: Performed By: #### C BC #### [facility] [address] [place] [address] Dr. Mariela Larkin Erythrocyte distribution width (RBC) [Ratio] 16.8 % Critically high 11.0-15.0 [facility] Comment on above: Performed By: #### C BC #### [facility] [address] [place] [address] Dr. Mariela Larkin Hematocrit (Bld) [Volume fraction] 30.4 % Critically low 36.0-48.0 [facility] Comment on above: Performed By: #### C BC #### [facility] [address] [place] [address] Dr. Mariela Larkin Hemoglobin (Bld) [Mass/Vol] 10.0 g/dL Critically low 12.0-16.0 [facility] Comment on above: Performed By: #### C BC #### [facility] [address] [place] [address] Dr. Mariela Larkin IG # 0.13 10e3/ul Critically high 0.00-0.03 [facility] Comment on above: Performed By: #### C BC #### [facility] [address] [place] [address] Dr. Mariela Larkin IG % 0.9 % Critically high 0.0-0.5 [facility] Comment on above: Performed By: #### C BC #### [facility] [address] [place] [address] Dr. Mariela Larkin LYMPH # 3.1 103/ul Normal 1.2-3.8 [facility] Comment on above: Performed By: #### C BC #### [facility] [address] [place] [address] Dr. Mariela Larkin Lymphocytes/100 WBC (Bld) 22.4 % Normal 20.5-60.0 [facility] Comment on above: Performed By: #### C BC #### [facility] [address] [place] [address] Dr. Mariela Larkin MANUAL DIFF REQ NO Normal [facility] Comment on above: Performed By: #### C BC #### [facility] [address] [place] [address] Dr. Mariela Larkin MCH (RBC) [Entitic mass] 27.0 pg Normal 26.7-34.0 [facility] Comment on above: Performed By: #### C BC #### [facility] [address] [address] [address] Mariela Larkin MCHC (RBC) [Mass/Vol] 32.9 g/dL Normal 29.9-35.2 [facility] Comment on above: Performed By: #### C BC #### [facility] [address] [place] [address] Dr. Mariela Larkin MCV (RBC) [Entitic vol] 82.2 fL Normal 81.0-99.0 [facility] Comment on above: Performed By: #### C BC #### [facility] [address] [place] [address] Dr. Mariela Larkin MONO # 0.7 103/ul Normal 0.3-0.8 [facility] Comment on above: Performed By: #### C BC #### [facility] [address] [place] [address] Dr. Mariela Larkin Monocytes/100 WBC (Bld) 5.1 % Normal 1.7-12.0 [facility] Comment on above: Performed By: #### C BC #### [facility] [address] [place] [address] Dr. Mariela Larkin NEUT # 9.6 103/ul Critically high 1.4-6.5 [facility] Comment on above: Performed By: #### C BC #### [facility] [address] [place] [address] Dr. Mariela Larkin Neutrophils/100 WBC (Bld) 69.0 % Normal 43.0-75.0 [facility] Comment on above: Performed By: #### C BC #### [facility] [address] [place] [address] Dr. Mariela Larkin Platelet mean volume (Bld) [Entitic vol] 9.4 fL Critically low 9.5-13.5 [facility] Comment on above: Performed By: #### C BC #### [facility] [address] [place] [address] Dr. Mariela Larkin PLT 243 103/ul Normal 150-450 [facility] Comment on above: Performed By: #### C BC #### [facility] [address] [address] [address] Mariela Larkin RBC 3.70 106/ul Critically low 4.20-5.40 [facility] Comment on above: Performed By: #### C BC #### [facility] [address] [place], [place] [address] Dr. Mariela Larkin WBC 13.9 103/ul Critically high 4.0-11.0 [facility] Comment on above: Performed By: #### C BC #### [facility] [address] [place] [address] Dr. Mariela Larkin Covid-19 PCR (CVDTB)on 07-10 SARS-CoV-2 (COVID-19) RNA OMAIRA+probe Ql (Unsp spec) Not detected Normal NOT DETECTED [facility] Comment on above: Result Comment: When [...] for this test is supported by the [place] of Health and Human Service's declaration that [...] Performed By: #### C VDTBH #### [facility] [address] [place], [place] [id number] Dr. Mariela Larkin DIRECT COOMBSon 07-23-2022 DIRECT AYANNA Negative Normal [facility] Comment on above: Performed By: #### D IRCMB #### [facility] [address] [place], [place] [id number] Dr. Mariela Larkin DRUG SCREEN RAPID (URINE)on 07-23-2022 AMP Negative Normal NEGATIVE [facility] Comment on above: Performed By: #### A FPMAT #### [facility] [address] [place] [address] Dr. Mariela Larkin BAR Negative Normal NEGATIVE [facility] Comment on above: Performed By: #### A FPMAT #### [facility] [address] [place] [address] Dr. Mariela Larkin BUP Negative Normal NEGATIVE [facility] Comment on above: Performed By: #### A FPMAT #### [facility] [address] [place] [address] Dr. Mariela Larkin BZO Negative Normal NEGATIVE [facility] Comment on above: Performed By: #### A FPMAT #### [facility] [address] [place] [address] Dr. Mariela Larkin CECIL Negative Normal NEGATIVE [facility] Comment on above: Performed By: #### A FPMAT #### [facility] [address] [place] [address] Dr. Mariela Larkin CUT-OFFS SEE BELOW Normal [facility] Comment on above: Result Comment: [...] Performed By: #### A FPMAT #### [facility] [address] [place] [address] Dr. Mariela Larkin DRUG CUT HEADER DRUG CLASS TEST SYST EM CUT-OFF CONCENTRATIONS ARE FOLLOWS: Normal [facility] Comment on above: Performed By: #### A FPMAT #### [facility] [address] [place] [address] Dr. Mariela Larkin mAMP Negative Normal NEGATIVE [facility] Comment on above: Performed By: #### A FPMAT #### [facility] [address] [address] [address] Mariela Larkin MTD Negative Normal NEGATIVE [facility] Comment on above: Performed By: #### A FPMAT #### [facility] [address] [address] [address] Mariela Larkin OPI Negative Normal NEGATIVE [facility] Comment on above: Performed By: #### A FPMAT #### [facility] [address] [address] [address] Mariela Larkin OXY Negative Normal NEGATIVE [facility] Comment on above: Performed By: #### A FPMAT #### [facility] [address] [place] [address] Dr. Mariela Larkin PCP Negative Normal NEGATIVE [facility] Comment on above: Performed By: #### A FPMAT #### [facility] [address] [place] [address] Dr. Mariela Larkin PPX Negative Normal NEGATIVE [facility] Comment on above: Performed By: #### A FPMAT #### [facility] [address] [place] [address] Dr. Mariela Larkin TCA Negative Normal NEGATIVE [facility] Comment on above: Performed By: #### A FPMAT #### [facility] [address] [place] [address] Dr. Mariela Larkin THC Positive Abnormal NEGATIVE [facility] Comment on above: Performed By: #### A FPMAT #### [facility] [address] [place] [address] Dr. Mariela Larkin TYPE AND SCREENon 07-23-2022 TYPE AND SCREEN Antibody Screen NEGA TIVE Blood Bank Notes orignal specimen hemolyzed, repeat testing performed on redraw. Hemolysis Blood Bank Notes could cause false positive reaction. ABO Rh Typing AB Rh Positive Normal [facility] Comment on above: Performed By: #### C VDTBH #### [facility] [address] [place] [address] Dr. Mariela Larkin CBC AUTO DIFFon 07-22-2022 BASO # 0.0 103/ul Normal 0.0-0.1 [facility] Comment on above: Performed By: #### C BC #### [facility] [address] [address] [address] Mariela Larkin Basophils/100 WBC (Bld) 0.2 % Normal 0.2-2.0 [facility] Comment on above: Performed By: #### C BC #### [facility] [address] [place] [address] Dr. Mariela Larkin EO # 0.2 103/ul Normal 0.0-0.7 [facility] Comment on above: Performed By: #### C BC #### [facility] [address] [place] [address] Dr. Mariela Larkin Eosinophils/100 WBC (Bld) 1.0 % Normal 0.9-7.0 [facility] Comment on above: Performed By: #### C BC #### [facility] [address] [place] [address] Dr. Mariela Larkin Erythrocyte distribution width (RBC) [Ratio] 16.3 % Critically high 11.0-15.0 [facility] Comment on above: Performed By: #### C BC #### [facility] [address] [place] [address] Dr. Mariela Larkin Hematocrit (Bld) [Volume fraction] 34.0 % Critically low 36.0-48.0 [facility] Comment on above: Performed By: #### C BC #### [facility] [address] [place] [address] Dr. Mariela Larkin Hemoglobin (Bld) [Mass/Vol] 11.0 g/dL Critically low 12.0-16.0 [facility] Comment on above: Performed By: #### C BC #### [facility] [address] [place] [address] Dr. Mariela Larkin IG # 0.14 10e3/ul Critically high 0.00-0.03 [facility] Comment on above: Performed By: #### C BC #### [facility] [address] [place] [address] Dr. Mariela Larkin IG % 0.9 % Critically high 0.0-0.5 [facility] Comment on above: Performed By: #### C BC #### [facility] [address] [place] [address] Dr. Mariela Larkin LYMPH # 2.5 103/ul Normal 1.2-3.8 [facility] Comment on above: Performed By: #### C BC #### [facility] [address] [place] [address] Dr. Mariela Larkin Lymphocytes/100 WBC (Bld) 15.9 % Critically low 20.5-60.0 [facility] Comment on above: Performed By: #### C BC #### [facility] [address] [place] [address] Dr. Mariela Larkin MANUAL DIFF REQ NO Normal [facility] Comment on above: Performed By: #### C BC #### [facility] [address] [place] [address] Dr. Mariela Larkin MCH (RBC) [Entitic mass] 26.2 pg Critically low 26.7-34.0 [facility] Comment on above: Performed By: #### C BC #### [facility] [address] [place] [address] Dr. Mariela Larkin MCHC (RBC) [Mass/Vol] 32.4 g/dL Normal 29.9-35.2 [facility] Comment on above: Performed By: #### C BC #### [facility] [address] [place] [address] Dr. Mariela Larkin MCV (RBC) [Entitic vol] 81.0 fL Normal 81.0-99.0 [facility] Comment on above: Performed By: #### C BC #### [facility] [address] [place] [address] Dr. Mariela Larkin MONO # 0.9 103/ul Critically high 0.3-0.8 [facility] Comment on above: Performed By: #### C BC #### [facility] [address] [place] [address] Dr. Mariela Larkin Monocytes/100 WBC (Bld) 5.5 % Normal 1.7-12.0 [facility] Comment on above: Performed By: #### C BC #### [facility] [address] [place] [address] Dr. Mariela Larkin NEUT # 11.9 103/ul Critically high 1.4-6.5 [facility] Comment on above: Performed By: #### C BC #### [facility] [address] [place] [address] Dr. Mariela Larkin Neutrophils/100 WBC (Bld) 76.5 % Critically high 43.0-75.0 [facility] Comment on above: Performed By: #### C BC #### [facility] [address] [place] [address] Dr. Mariela Larkin Platelet mean volume (Bld) [Entitic vol] 9.8 fL Normal 9.5-13.5 [facility] Comment on above: Performed By: #### C BC #### [facility] [address] [place] [address] Dr. Mariela Larkin PLT 268 103/ul Normal 150-450 [facility] Comment on above: Performed By: #### C BC #### [facility] [address] [place] [address] Dr. Mariela Larkin RBC 4.20 106/ul Normal 4.20-5.40 [facility] Comment on above: Performed By: #### C BC #### [facility] [address] [place] [address] Dr. Mariela Larkin WBC 15.6 103/ul Critically high 4.0-11.0 [facility] Comment on above: Performed By: #### C BC #### [facility] [address] [place] [address] Dr. Mariela Larkin GROUP B STREP CULTUREon S. agalactiae Ag (Unsp spec) Isolate 1 Streptococcus agalactiae Moderate [...] Tetracycline >=16 R F Normal [facility] Comment on above: Performed By: #### C VDTBH #### [facility] [address] [place] [address] Dr. Mariela Larkin CHLAMYDIA/GONOCOCCUS OMAIRA ( AB/URINE/PAPon 07-12-2022 Chlamydia trachomatis, OMAIRA Negative Normal Negative [facility] Comment on above: Performed By: #### C VDTBH #### [facility] [address] [place] [address] Dr. Mariela Larkin Neisseria gonorrhoeae, OMAIRA Negative Normal Negative [facility] Comment on above: Performed By: #### C VDTBH #### [facility] [address] [place] [address] Dr. Mariela Larkin VAGINITIS/VAGINOSIS DNA PROB Kulwinder 07-11-2022 Marilynn species Positive Abnormal Negative [facility] Comment on above: Performed By: #### C VDTBH #### [facility] [address] [place] [address] Dr. Mariela Larkin Gardnerella vaginalis Negative Normal Negative [facility] Comment on above: Performed By: #### C VDTBH #### [facility] [address] [place] [address] Dr. Mariela Larkin Trichomonas vaginalis Negative Normal Negative [facility] Comment on above: Performed By: #### C VDTBH #### [facility] [address] [place] [address] Dr. Mariela Larkin UA (CLEAN/CATCH) CT TECH/MICRO I F IND.on 07-04-2022 Bilirubin Ql (U) Negative Normal NEGATIVE [facility] Comment on above: Performed By: #### A FPMAT #### [facility] [address] [place] [address] Dr. Mariela Larkin Clarity (U) CLEAR Normal CLEAR [facility] Comment on above: Performed By: #### A FPMAT #### [facility] [address] [place] [address] Dr. Mariela Larkin Color (U) YELLOW Normal YELLOW [facility] Comment on above: Performed By: #### A FPMAT #### [facility] [address] [place] [address] Dr. Mariela Larkin Glucose Ql (U) Negative Normal NEGATIVE [facility] Comment on above: Performed By: #### A FPMAT #### [facility] [address] [place] [address] Dr. Mariela Larkin Hemoglobin Ql (U) Negative Normal NEGATIVE [facility] Comment on above: Performed By: #### A FPMAT #### [facility] [address] [place] [address] Dr. Mariela Larkin Ketones Ql (U) 15 mg/dl Abnormal NEGATIVE [facility] Comment on above: Performed By: #### A FPMAT #### [facility] [address] [place] [address] Dr. Mariela Larkin LEUKOCYTES Negative Normal NEGATIVE [facility] Comment on above: Performed By: #### A FPMAT #### [facility] [address] [place] [address] Dr. Mariela Larkin Nitrite Ql (U) Negative Normal NEGATIVE [facility] Comment on above: Performed By: #### A FPMAT #### [facility] [address] [place] [address] Dr. Mariela Larkin pH (U) 7.5 [pH] Normal 5-9 [facility] Comment on above: Performed By: #### A FPMAT #### [facility] [address] [place] [address] Dr. Mariela Larkin SPEC GRAVITY 1.020 Normal 1.005-<=1. 025 [facility] Comment on above: Performed By: #### A FPMAT #### [facility] [address] [place] [address] Dr. Mariela Larkin UA PROTEIN TRACE Normal NEGATIVE/ TRACE [facility] Comment on above: Performed By: #### A FPMAT #### [facility] [address] [address] [address] Mariela Larkin UR MICRO IND NOT INDICATED Normal [facility] Comment on above: Performed By: #### A FPMAT #### [facility] [address] [address] [address] Mariela Larkin Urobilinogen Qn (U) 1.0 {Vidya'U}/dL Normal 0.2 - 1. 0 [facility] Comment on above: Performed By: #### A FPMAT #### [facility] [address] [address] [address] Mariela Larkin US PREG GROWTHon 06-21-2022 [...] by: YENNI ROSE Date: 2022-06-21 18:37 Normal [facility] GLUCOSE - 1HRon 05-07-2022 Glucose [Mass/Vol] 120 mg/dL Critically high 74-106 [facility] Comment on above: Performed By: #### G LU1HR #### [facility] [address] [place] [address] Dr. Mariela Larkin HEMOGRAM AND PLATELon 2021 Hematocrit (Bld) [Volume fraction] 32.6 % Critically low 36.0-48.0 [facility] Comment on above: Performed By: #### A FPMAT #### [facility] [address] [place] [address] Dr. Mariela Larkin Hemoglobin (Bld) [Mass/Vol] 10.5 g/dL Critically low 12.0-16.0 [facility] Comment on above: Performed By: #### A FPMAT #### [facility] [address] [place] [address] Dr. Mariela Larkin MCH (RBC) [Entitic mass] 28.2 pg Normal 26.7-34.0 [facility] Comment on above: Performed By: #### A FPMAT #### [facility] [address] [place] [address] Dr. Mariela Larkin MCHC (RBC) [Mass/Vol] 32.2 g/dL Normal 29.9-35.2 [facility] Comment on above: Performed By: #### A FPMAT #### [facility] [address] [place] [address] Dr. Mariela Larkin MCV (RBC) [Entitic vol] 87.4 fL Normal 81.0-99.0 [facility] Comment on above: Performed By: #### A FPMAT #### [facility] [address] [place] [address] Dr. Mariela Larkin PLT 242 103/ul Normal 150-450 [facility] Comment on above: Performed By: #### A FPMAT #### [facility] [address] [place] [address] Dr. Mariela Larkin RBC 3.73 106/ul Critically low 4.20-5.40 [facility] Comment on above: Performed By: #### A FPMAT #### [facility] [address] [place] [address] Dr. Mariela Larkin WBC 13.2 103/ul Critically high 4.0-11.0 [facility] Comment on above: Performed By: #### A FPMAT #### [facility] [address] [place] [address] Dr. Mariela Larkin UA (CLEAN/CATCH) CT TECH/MICRO I F IND.on 04-24-2022 Bilirubin Ql (U) Negative Normal NEGATIVE [facility] Comment on above: Performed By: #### U ACSIND #### [facility] [address] [place] [address] Dr. Mariela Larkin Clarity (U) CLEAR Normal CLEAR [facility] Comment on above: Performed By: #### U ACSIND #### [facility] [address] [place] [address] Dr. Mariela Larkin Color (U) YELLOW Normal YELLOW [facility] Comment on above: Performed By: #### U ACSIND #### [facility] [address] [place] [address] Dr. Mariela Larkin Glucose Ql (U) Negative Normal NEGATIVE [facility] Comment on above: Performed By: #### U ACSIND #### [facility] [address] [place] [address] Dr. Mariela Larkin Hemoglobin Ql (U) Negative Normal NEGATIVE [facility] Comment on above: Performed By: #### U ACSIND #### [facility] [address] [place] [address] Dr. Mariela Larkin Ketones Ql (U) TRACE Abnormal NEGATIVE [facility] Comment on above: Performed By: #### U ACSIND #### [facility] [address] [place] [address] Dr. Mariela Larkin LEUKOCYTES Negative Normal NEGATIVE [facility] Comment on above: Performed By: #### U ACSIND #### [facility] [address] [place] [address] Dr. Mariela Larkin Nitrite Ql (U) Negative Normal NEGATIVE [facility] Comment on above: Performed By: #### U ACSIND #### [facility] [address] [place] [address] Dr. Mariela Larkin pH (U) 8.0 [pH] Normal 5-9 [facility] Comment on above: Performed By: #### U ACSIND #### [facility] [address] [address] [address] Mariela Larkin SPEC GRAVITY 1.015 Normal 1.005-<=1. 025 [facility] Comment on above: Performed By: #### U ACSIND #### [facility] [address] [place] [address] Dr. Mariela Larkin UA PROTEIN Negative Normal NEGATIVE/ TRACE [facility] Comment on above: Performed By: #### U ACSIND #### [facility] [address] [place] [address] Dr. Mariela Larkin UR MICRO IND NOT INDICATED Normal [facility] Comment on above: Performed By: #### U ACSIND #### [facility] [address] [place] [address] Dr. Mariela Larkin Urobilinogen Qn (U) 0.2 {Vidya'U}/dL Normal 0.2 - 1. 0 [facility] Comment on above: Performed By: #### U ACSIND #### [facility] [address] [place] [address] Dr. Mariela Larkin US PREG ANATOMY SINGLEon [...] VALVERDE Date: 2022-04-11 16:25 Normal [facility] AFP MATERNAL FOR SPINA BIFID Aon 03-09-2022 AFP MoM 1.59 Normal [facility] Comment on above: Performed By: #### A FPMAT #### [facility] [address] [address] [address] Mariela Larkin AFP Value 95.6 ng/mL Normal [facility] Comment on above: Performed By: #### A FPMAT #### [facility] [address] [address] [address] Mariela Larkin AFP, Serum for Spina Bifida Report Normal [facility] Comment on above: Performed By: #### A FPMAT #### [facility] [address] [address] [address] Mariela Larkin Comment Comment Normal [facility] Comment on above: Result Comment: Maryanne Hagen, Ph.D., [facility] Director . References: Available Upon Request. . Multiples Of Median Cutoffs For AFP Elevations Moran 2.5 Black 2.8 IDD 2.0 Twins 4.5 Abbreviation Definitions IDD - Insulin Dep Diabetes OSBR - Open Spina Bifida Risk . For further inquiries contact [facility] at [phone]. . This test was developed and its performance characteristics determined by [employer]. It has not been cleared or approved by the Food and Drug Administration. Performed By: #### A FPMAT #### [facility] [address] [address] [address] Mariela Larkin Gest Age Collection Date 18.4 weeks Normal [facility] Comment on above: Performed By: #### A FPMAT #### [facility] [address] [place] [address] Dr. Mariela Larkin Gestat, Age Based on MARILUZ [facility] Comment on above: Result Comment: 07/11 Recalculations are not recommended when gestational dating by LMP and ultrasound are within 10 days. Performed By: #### A FPMAT #### [facility] [address] [place] [address] Dr. Mariela Larkin Insulin Dep Diabetes No Normal [facility] Comment on above: Performed By: #### A FPMAT #### [facility] [address] [place] [address] Dr. Mariela Larkin Interpretation Comment Normal [facility] Comment on above: Result Comment: Inte rpretation: [...] Customer Services to discuss available options. The [employer] recommends amniocentesis be offered to women age 35 and older. Performed By: #### A FPMAT #### [facility] [address] [place] [address] Dr. Mariela Larkin [age] [facility] Comment on above: Performed By: #### A FPMAT #### [facility] [address] [place] [address] Dr. Mariela Larkin Multiple Gestation No Normal [facility] Comment on above: Performed By: #### A FPMAT #### [facility] [address] [place] [address] Dr. Mariela Larkin OSBR Risk 1 IN 2154 [facility] Comment on above: Performed By: #### A FPMAT #### [facility] [address] [place] [address] Dr. Mariela Larkin PDF . Normal [facility] Comment on above: Performed By: #### A FPMAT #### [facility] [address] [place] [address] Dr. Mariela Larkin Race Normal [facility] Comment on above: Performed By: #### A FPMAT #### [facility] [address] [place] [address] Dr. Mariela Larkin Test Results: Negative Normal [facility] Comment on above: Performed By: #### A FPMAT #### [facility] [address] [place] [address] Dr. Mariela Larkin HEP B SURFACE ANTIGEN SCREEN on 01-27-2022 HBsAg Screen Negative Normal Negative [facility] Comment on above: Performed By: #### C VDTBH #### [facility] [address] [place] [address] Dr. Mariela Larkin HEPATITIS C VIRUS AB W/ REFL EX QUANTon 01-27-2022 HCV AB <0.1 Normal 0.0-0.9 [facility] Comment on above: Performed By: #### A FPMAT #### [facility] [address] [place] [address] Dr. Mariela Larkin Interpretation: Comment Normal [facility] Comment on above: Result Comment: Nega tive Not infected with HCV, unless recent infection is suspected or other evidence exists to indicate HCV infection. Performed By: #### A FPMAT #### [facility] [address] [place] [address] Dr. Mariela Larkin HIV 1 AND 2 WITH REFLEXon HIV Screen 4th Generation wRfx Non-Reactive Normal Non Reactive [facility] Comment on above: Result Comment: HIV Negative HIV-1/HIV-2 antibodies and HIV-1 p24 antigen were NOT detected. There is no laboratory evidence of HIV infection. Performed By: #### C VDTBH #### [facility] [address] [place] [address] Dr. Mariela Larkin RPR QUANTon 01-27-2022 Rapid Plasma Reagin, Quant Non-Reactive Normal NonRea<1:1 [facility] Comment on above: Result Comment: Plea se Note: This test does not meet current guidelines for screening and diagnosis of syphilis. This test is intended for following treatment response in patients being treated for syphilis infection. To screen for syphilis infection, a reflex cascade that includes both RPR and a treponema-specific assay should be utilized, such as Treponema pallidum (Syphilis) Screening [place] (321779) or Rapid Plasma Reagin (RPR) Test With Reflex to Quantitative RPR and Confirmatory Treponema pallidum Antibodies (395147). Performed By: #### R PRQ #### [facility] [address] [place] [address] Dr. Mariela Larkin RUBELLA AB IGGon 01-27-2022 Rubella Antibodies, IgG 3.63 index Normal Immu ne >0.99 [facility] Comment on above: Result Comment: Non- immune <0.90 Equivocal 0.90 - 0.99 Immune >0.99 Performed By: #### A FPMAT #### [facility] [address] [place] [address] Dr. Mariela Larkin CBC AUTO DIFFon 01-26-2022 BASO # 0.0 103/ul Normal 0.0-0.1 [facility] Comment on above: Performed By: #### A FPMAT #### [facility] [address] [place] [address] Dr. Mariela Larkin Basophils/100 WBC (Bld) 0.2 % Normal 0.2-2.0 [facility] Comment on above: Performed By: #### A FPMAT #### [facility] [address] [place] [address] Dr. Mariela Larkin EO # 0.2 103/ul Normal 0.0-0.7 [facility] Comment on above: Performed By: #### A FPMAT #### [facility] [address] [place] [address] Dr. Mariela Larkin Eosinophils/100 WBC (Bld) 2.5 % Normal 0.9-7.0 [facility] Comment on above: Performed By: #### A FPMAT #### [facility] [address] [place] [address] Dr. Mariela Larkin Erythrocyte distribution width (RBC) [Ratio] 14.1 % Normal 11.0-15.0 [facility] Comment on above: Performed By: #### A FPMAT #### [facility] [address] [place] [address] Dr. Mariela Larkin Hematocrit (Bld) [Volume fraction] 33.1 % Critically low 36.0-48.0 [facility] Comment on above: Performed By: #### A FPMAT #### [facility] [address] [place] [address] Dr. Mariela Larkin Hemoglobin (Bld) [Mass/Vol] 11.1 g/dL Critically low 12.0-16.0 [facility] Comment on above: Performed By: #### A FPMAT #### [facility] [address] [place] [address] Dr. Mariela Larkin IG # 0.03 10e3/ul Normal 0.00-0.03 [facility] Comment on above: Performed By: #### A FPMAT #### [facility] [address] [place] [address] Dr. Mariela Larkin IG % 0.3 % Normal 0.0-0.5 [facility] Comment on above: Performed By: #### A FPMAT #### [facility] [address] [place] [address] Dr. Mariela Larkin LYMPH # 1.1 103/ul Critically low 1.2-3.8 [facility] Comment on above: Performed By: #### A FPMAT #### [facility] [address] [place] [address] Dr. Mariela Larkin Lymphocytes/100 WBC (Bld) 11.7 % Critically low 20.5-60.0 [facility] Comment on above: Performed By: #### A FPMAT #### [facility] [address] [place] [address] Dr. Mariela Larkin MANUAL DIFF REQ NO Normal [facility] Comment on above: Performed By: #### A FPMAT #### [facility] [address] [place] [address] Dr. Mariela Larkin MCH (RBC) [Entitic mass] 29.1 pg Normal 26.7-34.0 [facility] Comment on above: Performed By: #### A FPMAT #### [facility] [address] [place] [address] Dr. Mariela Larkin MCHC (RBC) [Mass/Vol] 33.5 g/dL Normal 29.9-35.2 [facility] Comment on above: Performed By: #### A FPMAT #### [facility] [address] [place] [address] Dr. Mariela Larkin MCV (RBC) [Entitic vol] 86.9 fL Normal 81.0-99.0 [facility] Comment on above: Performed By: #### A FPMAT #### [facility] [address] [place] [address] Dr. Mariela Larkin MONO # 0.4 103/ul Normal 0.3-0.8 [facility] Comment on above: Performed By: #### A FPMAT #### [facility] [address] [place] [address] Dr. Mariela Larkin Monocytes/100 WBC (Bld) 4.0 % Normal 1.7-12.0 [facility] Comment on above: Performed By: #### A FPMAT #### [facility] [address] [place] [address] Dr. Mariela Larkin NEUT # 7.5 103/ul Critically high 1.4-6.5 [facility] Comment on above: Performed By: #### A FPMAT #### [facility] [address] [place] [address] Dr. Mariela Larkin Neutrophils/100 WBC (Bld) 81.3 % Critically high 43.0-75.0 [facility] Comment on above: Performed By: #### A FPMAT #### [facility] [address] [place] [address] Dr. Mariela Larkin Platelet mean volume (Bld) [Entitic vol] 9.6 fL Normal 9.5-13.5 [facility] Comment on above: Performed By: #### A FPMAT #### [facility] [address] [place] [address] Dr. Mariela Larkin PLT 225 103/ul Normal 150-450 [facility] Comment on above: Performed By: #### A FPMAT #### [facility] [address] [place] [address] Dr. Mariela Larkin RBC 3.81 106/ul Critically low 4.20-5.40 [facility] Comment on above: Performed By: #### A FPMAT #### [facility] [address] [place] [address] Dr. Mariela Larkin WBC 9.3 103/ul Normal 4.0-11.0 [facility] Comment on above: Performed By: #### A FPMAT #### [facility] [address] [place] [address] Dr. Mariela Larkin CULTURE URINEon 01-26-2022 CULTURE URINE Culture Observations : No growth Normal [facility] Comment on above: Performed By: #### U RCX #### [facility] [address] [place] [address] Dr. Mariela Larkin GLYCOHEMOGLOBIN A1Con 2021 ADA RECOMMENDATION SEE BELOW Normal [facility] Comment on above: Result Comment: ADA RECOMMENDED LIMIT 4.0 - 6.0 ADA THERAPEUTIC TARGET < 7.0 ACTION SUGGESTED > 7.0 Performed By: #### A FPMAT #### [facility] [address] [place] [address] Dr. Mariela Larkin Glucose [Mass/Vol] 94 mg/dL Normal [facility] Comment on above: Performed By: #### A FPMAT #### [facility] [address] [place] [address] Dr. Mariela Larkin HbA1c (Bld) [Mass fraction] 4.9 % Normal 4.5-6.2 [facility] Comment on above: Performed By: #### A FPMAT #### [facility] [address] [place] [address] Dr. Mariela Larkin DHRUV BOX TEST PT SEND OUTo n 01-26-2022 SENT TO REF LAB 01/26/2022 Normal [facility] Comment on above: Performed By: #### C VDTBH #### [facility] [address] [place], [place] [address] Dr. Mariela Larkin TYPE AND SCREENon 01-26-2022 TYPE AND SCREEN Negative Normal [facility] Comment on above: Performed By: #### T NS #### [facility] [address] [place], [place] [address] Dr. Mariela Larkin US PREG TVon 12-25-2021 [...] heart rate, 181 bpm Electronically authenticated by: AMRTIN VALVERDE Date: 2021-12-25 11:24 Normal [facility] Vital Signs Date Time Vital Sign Value Performing Clinician Facility 05-13-2025 10:130400 Body mass index (BMI) [Ratio] 24.14 kg/m2 obiwon Work Phone: [facility] 05-13-2025 10:13040 Body weight 59.88 kg obiwon Work Phone: [facility] 05-13-2025 10:13040 Diastolic blood pressure 70 mm[Hg] obiwon Work Phone: [facility] 05-13-2025 10:13040 Systolic blood pressure 110 mm[Hg] obiwon Work Phone: [facility] 04-22-2025 10:57-0400 Body mass index (BMI) [Ratio] 23.5 kg/m2 obiwon Work Phone: [facility] 04-22-2025 10:57-0400 Body weight 58.29 kg Demarco Kirby DO Work Phone: [facility] 04-22-2025 10:57-0400 Diastolic blood pressure 70 mm[Hg] Demarco Kirby DO Work Phone: [facility] 04-22-2025 10:57-0400 Systolic blood pressure 102 mm[Hg] Demarco Kirby DO Work Phone: [facility] 03-29-2025 15:55-0400 Body mass index (BMI) [Ratio] 22.54 kg/m2 Cira Chairez PA Work Phone: [facility] 03-29-2025 15:55-0400 Body weight 55.91 kg Cira Mihaela PA Work Phone: [facility] 03-29-2025 15:55-0400 Diastolic blood pressure 64 mm[Hg] Cira Mihaela PA Work Phone: [facility] 03-29-2025 15:55-0400 Systolic blood pressure 116 mm[Hg] Cira Mihaela PA Work Phone: [facility] 02-22-2025 14:10-0400 Body mass index (BMI) [Ratio] 21.29 kg/m2 Demarco Kirby DO Work Phone: [facility] 02-22-2025 14:10-0400 Body weight 52.8 kg Demarco Kirby DO Work Phone: [facility] 02-22-2025 14:10-0400 Diastolic blood pressure 66 mm[Hg] Demarco Kirby DO Work Phone: [facility] 02-22-2025 14:10-0400 Systolic blood pressure 106 mm[Hg] Demarco Kirby DO Work Phone: [facility] 01-30-2025 11:21-0400 Body height 154.94 cm Divina George Araya DO Work Phone: [facility] 01-30-2025 11:21-0400 Body weight 49.89 kg GeenaSofai Araya DO Work Phone: [facility] 01-30-2025 10:49-0400 Diastolic blood pressure 66 mm[Hg] Divina Araya DO Work Phone: [facility] 01-30-2025 10:49-0400 Heart rate 67 /min Divina Araya DO Work Phone: [facility] 01-30-2025 10:49-0400 Respiratory rate 18 /min Divina Araya DO Work Phone: [facility] 01-30-2025 10:49-0400 SaO2% (BldA) [Mass fraction] 99 % Divina Araya DO Work Phone: [facility] 01-30-2025 10:49-0400 Systolic blood pressure 103 mm[Hg] Divina Araya DO Work Phone: [facility] 01-30-2025 08:26-0400 Body temperature 98.2 [degF] Divina Araya DO Work Phone: [facility] 01-30-2025 08:23-0400 Body height 154.94 cm Divina Araya DO Work Phone: [facility] 01-30-2025 08:23-0400 Body weight 51.8 kg Divina Araya DO Work Phone: [facility] 01-25-2025 10:37-0400 Body mass index (BMI) [Ratio] 20.58 kg/m2 Susan Troy [employer] Work Phone: [facility] 01-25-2025 10:37-0400 Body weight 51.03 kg Susan Troy [employer] Work Phone: [facility] 01-25-2025 10:37-0400 Diastolic blood pressure 60 mm[Hg] Susan Troy [employer] Work Phone: [facility] 01-25-2025 10:37-0400 Systolic blood pressure 100 mm[Hg] Susan Troy [employer] Work Phone: [facility] 12-07-2024 16:28-0400 Body mass index (BMI) [Ratio] 18.68 kg/m2 Demarco Kirby DO Work Phone: [facility] 12-07-2024 16:28-0400 Body weight 46.32 kg Demarco Kirby DO Work Phone: [facility] 12-07-2024 16:28-0400 Diastolic blood pressure 68 mm[Hg] Demarco Kirby DO Work Phone: [facility] 12-07-2024 16:28-0400 Systolic blood pressure 110 mm[Hg] Demarco Kirby DO Work Phone: [facility] 11-05-2024 13:27-0500 Body mass index (BMI) [Ratio] 17.96 kg/m2 Nom Nurse [facility] 11-05-2024 13:27-0500 Body weight 44.54 kg Nom Nurse [facility] 11-05-2024 13:27-0500 Diastolic blood pressure 60 mm[Hg] Nom Nurse [facility] 11-05-2024 13:27-0500 Systolic blood pressure 100 mm[Hg] [facility] Nurse [facility] 09-21-2024 20:40-0500 Body temperature 97.9 [degF] Paramjit Tupa DO Work Phone: [facility] 09-21-2024 20:40-0500 Diastolic blood pressure 67 mm[Hg] Paramjit Tupa DO Work Phone: [facility] 09-21-2024 20:40-0500 Heart rate 67 /min Paramjit Tupa DO Work Phone: [facility] 09-21-2024 20:40-0500 Respiratory rate 20 /min Paramjit Tupa DO Work Phone: [facility] 09-21-2024 20:40-0500 SaO2% (BldA) [Mass fraction] 96 % Paramjit Tupa DO Work Phone: [facility] 09-21-2024 20:40-0500 Systolic blood pressure 112 mm[Hg] Paramjit Yanes DO Work Phone: [facility] 09-21-2024 20:39-0500 Body height 157.48 cm Paramjit Yanes DO Work Phone: [facility] 09-21-2024 20:39-0500 Body weight 45.35 kg Paramjit Yanes DO Work Phone: [facility] 08-25-2024 15:22-0500 Body mass index (BMI) [Ratio] 17.01 kg/m2 Anum Cody [employer] Work Phone: [facility] 08-25-2024 15:22-0500 Body temperature 97.7 [degF] Anum Cody [employer] Work Phone: [facility] 08-25-2024 15:22-0500 Body weight 42.19 kg Anum Cody [employer] Work Phone: [facility] 08-25-2024 15:22-0500 Diastolic blood pressure 80 mm[Hg] Anum Alcantaraok [employer] Work Phone: [facility] 08-25-2024 15:22-0500 Heart rate 92 /min Anum Cody [employer] Work Phone: [facility] 08-25-2024 15:22-0500 SaO2% (BldA) [Mass fraction] 99 % Anum Cody [employer] Work Phone: [facility] 08-25-2024 15:22-0500 Systolic blood pressure 120 mm[Hg] Anum Cody [employer] Work Phone: [facility] 08-02-2024 09:20-0500 Body mass index (BMI) [Ratio] 17.01 kg/m2 Carlos Zaragoza MD, IBCLC Work Phone: [facility] 08-02-2024 09:20-0500 Body temperature 97.81 [degF] Carlos Zaragoza MD, IBCLC Work Phone: [facility] 08-02-2024 09:20-0500 Body weight 42.19 kg Carlos Zaragoza MD, IBCLC Work Phone: [facility] 08-02-2024 09:20-0500 Diastolic blood pressure 60 mm[Hg] Carlos Zaragoza MD, IBCLC Work Phone: [facility] 08-02-2024 09:20-0500 Heart rate 91 /min Carlos Zaragoza MD, IBCLC Work Phone: [facility] 08-02-2024 09:20-0500 SaO2% (BldA) [Mass fraction] 99 % Carlos Zaragoza MD, IBCLC Work Phone: [facility] 08-02-2024 09:20-0500 Systolic blood pressure 112 mm[Hg] Carlos Zaragoza MD, IBCLC Work Phone: [facility] 06-29-2024 10:37-0400 Body height 156.21 cm DO GeenaSofia Araya Work Phone: [facility] 06-29-2024 10:37-0400 Body temperature 98 [degF] DO GeenaSofia George Araya Work Phone: [facility] 06-29-2024 10:37-0400 Body weight 40.9 kg DO GeenaSofia Fields Quiana Work Phone: [facility] 06-29-2024 10:37-0400 Diastolic blood pressure 68 mm[Hg] DO Divina Araya Work Phone: [facility] 06-29-2024 10:37-0400 Heart rate 76 /min DO Divina Araya Work Phone: [facility] 06-29-2024 10:37-0400 Respiratory rate 16 /min DO Divina Araya Work Phone: [facility] 06-29-2024 10:37-0400 SaO2% (BldA) [Mass fraction] 100 % DO Divina Araya Work Phone: [facility] 06-29-2024 10:37-0400 Systolic blood pressure 104 mm[Hg] DO Divina Araya Work Phone: [facility] 04-29-2024 15:45-0400 Body height 157.5 cm Diego Araya DO Work Phone: [facility] 04-29-2024 15:45-0400 Body mass index (BMI) [Ratio] 16.97 kg/m2 Diego Araya DO Work Phone: [facility] 04-29-2024 15:45-0400 Body temperature 98.71 [degF] Diego Araya DO Work Phone: [facility] 04-29-2024 15:45-0400 Body weight 42.09 kg Diego Araya DO Work Phone: [facility] 04-29-2024 15:45-0400 Diastolic blood pressure 64 mm[Hg] Diego Araya DO Work Phone: [facility] 04-29-2024 15:45-0400 Heart rate 83 /min Diego Araya DO Work Phone: [facility] 04-29-2024 15:45-0400 SaO2% (BldA) [Mass fraction] 98 % Diego Araya DO Work Phone: [facility] 04-29-2024 15:45-0400 Systolic blood pressure 116 mm[Hg] Diego Araya DO Work Phone: [facility] 04-17-2024 13:15-0400 Diastolic blood pressure 62 mm[Hg] DO Divina Araya Work Phone: [facility] 04-17-2024 13:15-0400 Heart rate 71 /min DO Divina Fields Derianlauraskylar Work Phone: [facility] 04-17-2024 13:15-0400 Respiratory rate 18 /min DO Divina Menardlottie Work Phone: [facility] 04-17-2024 13:15-0400 SaO2% (BldA) [Mass fraction] 97 % DO Divina Araya Work Phone: [facility] 04-17-2024 13:15-0400 Systolic blood pressure 113 mm[Hg] DO Divina Araya Work Phone: [facility] 04-17-2024 09:49-0400 Body height 154.94 cm DO Divina Araya Work Phone: [facility] 04-17-2024 09:49-0400 Body temperature 98 [degF] DO Divina Araya Work Phone: [facility] 04-17-2024 09:49-0400 Body weight 42.1 kg DO Divina Araya Work Phone: [facility] 10-13-2023 14:07-0500 Body temperature 98.4 [degF] DO Divina Araya Work Phone: [facility] 10-13-2023 14:07-0500 Diastolic blood pressure 56 mm[Hg] DO Divina Araya Work Phone: [facility] 10-13-2023 14:07-0500 Heart rate 78 /min DO Divina Araya Work Phone: [facility] 10-13-2023 14:07-0500 Respiratory rate 18 /min DO Divina Araya Work Phone: [facility] 10-13-2023 14:07-0500 SaO2% (BldA) [Mass fraction] 100 % DO Divina Araya Work Phone: [facility] 10-13-2023 14:07-0500 Systolic blood pressure 103 mm[Hg] DO Divina Araya Work Phone: [facility] 10-13-2023 11:52-0500 Body height 154.94 cm DO Divina Araya Work Phone: [facility] 10-13-2023 11:52-0500 Body weight 43 kg DO Divina Araya Work Phone: [facility] 09-28-2023 16:24-0500 Body temperature 98.1 [degF] DO Divina Araya Work Phone: [facility] 09-28-2023 16:24-0500 Diastolic blood pressure 62 mm[Hg] DO Divina Araya Work Phone: [facility] 09-28-2023 16:24-0500 Heart rate 84 /min DO Divina Araya Work Phone: [facility] 09-28-2023 16:24-0500 Respiratory rate 24 /min DO Divina Araya Work Phone: [facility] 09-28-2023 16:24-0500 SaO2% (BldA) [Mass fraction] 99 % DO Divina Araya Work Phone: [facility] 09-28-2023 16:24-0500 Systolic blood pressure 103 mm[Hg] DO Divina Araya Work Phone: [facility] 09-28-2023 13:15-0500 Body height 156.21 cm DO Divina Araya Work Phone: [facility] 09-28-2023 13:15-0500 Body weight 40.75 kg DO Divina Araya Work Phone: [facility] 09-10-2023 09:49-0500 Diastolic blood pressure 59 mm[Hg] DO Divina Araya Work Phone: [facility] 09-10-2023 09:49-0500 Heart rate 65 /min DO Divina Araya Work Phone: [facility] 09-10-2023 09:49-0500 Respiratory rate 16 /min DO Divina Araya Work Phone: [facility] 09-10-2023 09:49-0500 SaO2% (BldA) [Mass fraction] 100 % DO Divina Araya Work Phone: [facility] 09-10-2023 09:49-0500 Systolic blood pressure 95 mm[Hg] DO Divina Araya Work Phone: [facility] 09-10-2023 07:42-0500 Body height 156.21 cm DO Divina Araya Work Phone: [facility] 09-10-2023 07:42-0500 Body weight 40.82 kg DO Divina Araya Work Phone: [facility] 06-03-2023 10:35-0400 Diastolic blood pressure 71 mm[Hg] DO Divina Araya Work Phone: [facility] 06-03-2023 10:35-0400 Heart rate 63 /min DO Divina Araya Work Phone: [facility] 06-03-2023 10:35-0400 Respiratory rate 16 /min DO Divina Araya Work Phone: [facility] 06-03-2023 10:35-0400 SaO2% (BldA) [Mass fraction] 100 % DO Divina Araya Work Phone: [facility] 06-03-2023 10:35-0400 Systolic blood pressure 106 mm[Hg] DO Divina Araya Work Phone: [facility] 06-03-2023 08:46-0400 Body height 157.48 cm DO Divina Araya Work Phone: [facility] 06-03-2023 08:46-0400 Body weight 48.98 kg DO Divina Araya Work Phone: [facility] 04-25-2023 15:15-0400 Body height 165.35 cm Imad Asaad Other [facility] Other 04-25-2023 15:15-0400 Body mass index (BMI) [Ratio] 17.09 kg/m2 Imad Asaad Other [facility] Other 04-25-2023 15:15-0400 Body weight 46.72 kg Imad Asaad Other [facility] Other 04-25-2023 15:15-0400 Diastolic blood pressure 68 mm[Hg] Imad Asaad Other [facility] Other 04-25-2023 15:15-0400 Systolic blood pressure 110 mm[Hg] Imad Asaad Other [facility] Other 12-29-2022 15:12-0400 Body temperature 98.9 [degF] DO Divina Menardlauraskylar Work Phone: [facility] 12-29-2022 15:12-0400 Diastolic blood pressure 64 mm[Hg] DO Divina Menardlauraskylar Work Phone: [facility] 12-29-2022 15:12-0400 Heart rate 65 /min DO Divina Menardlauraskylar Work Phone: [facility] 12-29-2022 15:12-0400 Respiratory rate 18 /min DO Divina Menardlauraskylar Work Phone: [facility] 12-29-2022 15:12-0400 SaO2% (BldA) [Mass fraction] 98 % DO Divina Menardlauraskylar Work Phone: [facility] 12-29-2022 15:12-0400 Systolic blood pressure 112 mm[Hg] DO Divina Menardlottie Work Phone: [facility] 12-29-2022 12:53-0400 Body height 154.94 cm DO Divina Menardlottie Work Phone: [facility] 12-29-2022 12:53-0400 Body weight 53.1 kg DO Divina Menardlottie Work Phone: [facility] 11-06-2022 14:21-0500 Body temperature 98.6 [degF] Kayy Gudimella [facility] 11-06-2022 14:21-0500 Heart rate 77 /min Kayy Gudimella [facility] 11-06-2022 14:21-0500 SaO2% (BldA) [Mass fraction] 98 % Kayy Gudimella [facility] 03-09-2022 02:06-0400 Body weight 48.[address] DEMARCO ORR [facility] Comment on above: Performed By: #### AFPMAT #### [facility] [address] [place] [address] Dr. Mariela Larkin Encounters Encounter Date Encounter Type Care Provider Facility Start: 05-18-2025 End: 05-18-2025 Bamboo flowsheet Demarco Kirby DO Work Phone: [facility] Start: 05-18-2025 End: 05-18-2025 Bamboo flowsheet Demarco Kirby DO Work Phone: [facility] Start: 05-13-2025 End: 05-13-2025 Bamboo flowsheet Demarco Kirby DO Work Phone: [facility] Start: 05-13-2025 End: 05-14-2025 Bamboo flowsheet Demarco Kirby DO Work Phone: [facility] Start: 05-13-2025 End: 05-14-2025 External Result Encounter Demarco Kirby DO Work Phone: [facility] Unsolicited Start: 05-13-2025 End: 05-13-2025 ambulatory DEMARCO KIRBY Not Available Start: 05-13-2025 End: 05-13-2025 Office outpatient visit 15 minutes Demarco Kirby DO Work Phone: [facility] Comment on above: 36 weeks gestation o f ([facility]); Third trimester ([facility]); Gastroesophageal reflux in ([facility]); Exposure to STD; Vaginal discharge Start: 05-03-2025 End: 05-03-2025 ambulatory CIRA CHAIREZ Not Available Start: 05-03-2025 End: 05-03-2025 Office outpatient visit 15 minutes Cira BROWN Work Phone: [facility] Comment on above: Third trimester preg jorge ([facility]); 35 weeks gestation of ([facility]) Start: 05-03-2025 End: 05-03-2025 Bamboo flowsheet Cira BROWN Work Phone: [facility] Start: 05-03-2025 End: 05-03-2025 Bamboo flowsheet Cira BROWN Work Phone: [facility] Start: 04-22-2025 End: 04-22-2025 Office outpatient visit 15 minutes Demarco Kirby DO Work Phone: [facility] Comment on above: Third trimester preg jorge ([facility]); 33 weeks gestation of ([facility]) Start: 04-22-2025 End: 04-22-2025 ambulatory DEMARCO KIRBY Not Available Start: 03-29-2025 End: 03-29-2025 Office outpatient visit 15 minutes Cira BROWN Work Phone: [facility] Comment on above: Size of fetus incons istent with dates in first trimester ([facility]) (Primary Dx); Third trimester ([facility]); 30 weeks gestation of ([facility]); Gastroesophageal reflux in ([facility]) Start: 03-29-2025 End: 03-29-2025 ambulatory CIRA CHAIREZ Not Available Start: 03-29-2025 End: 03-29-2025 Bamboo flowsheet Cira BROWN Work Phone: [facility] Start: 03-29-2025 End: 03-29-2025 Bamboo flowsheet Cira Chairez PA Work Phone: [facility] Start: 03-29-2025 End: 03-29-2025 Clinisync Result Encounter Generic External Data Provider [facility] Unsolicited Start: 02-24-2025 End: 02-24-2025 Emergency department patient visit Divina Menardlauraskylar Facility:[facility] Start: 02-22-2025 End: 02-22-2025 Bamboo flowsheet Demarco Kirby DO Work Phone: [facility] Start: 02-22-2025 End: 02-22-2025 Bamboo flowsheet Demarco Kirby DO Work Phone: [facility] Start: 02-22-2025 End: 02-22-2025 Office outpatient visit 15 minutes Demarco Kirby DO Work Phone: [facility] Comment on above: Second trimester pre gnancy ([facility]); 25 weeks gestation of ([facility]); Diabetes mellitus screening; Gastroesophageal reflux in ([facility]) Start: 02-22-2025 End: 02-22-2025 ambulatory DEMARCO KIRBY Not Available Start: 01-30-2025 End: 01-30-2025 Patient encounter procedure Divina Araya DO Work Phone: [facility] Start: 01-30-2025 End: 01-30-2025 ambulatory Divina Araya DO Work Phone: [facility] Work Phone: Start: 01-30-2025 End: 01-30-2025 Emergency department patient visit Divina Araya DO Work Phone: [facility] Work Phone: Start: 01-27-2025 End: 01-27-2025 Clinisync Result Encounter Generic External Data Provider [facility] Unsolicited Start: 01-27-2025 End: 01-27-2025 Clinisync Result Encounter Generic External Data Provider [facility] Unsolicited Start: 01-25-2025 End: 01-25-2025 Bamboo flowsheet Susan Troy [facility] Work Phone: [facility] Start: 01-25-2025 End: 01-26-2025 Bamboo flowsheet Susan Troy [facility] Work Phone: [facility] Start: 01-25-2025 End: 01-26-2025 External Result Encounter Susan Troy [facility] Work Phone: [facility] Unsolicited Start: 01-25-2025 End: 01-25-2025 ambulatory SUSAN TROY Not Available Start: 01-25-2025 End: 01-25-2025 Office outpatient visit 15 minutes Susan Troy [facility] Work Phone: [facility] Comment on above: Second trimester pre gnancy; 21 weeks gestation of ; Screening, , for anatomic survey; Vaginal discharge; STD exposure; Well woman exam with routine gynecological exam Start: 01-25-2025 End: 01-25-2025 Patient encounter procedure Susan Troy [facility] Work Phone: [facility] Start: 12-07-2024 End: [...] 9w3d Start: 11-05-2024 End: 11-05-2024 ambulatory DEMARCO ORR Not Available Start: 09-21-2024 End: 09-21-2024 Emergency department patient visit Paramjit Yanes DO Work Phone: [facility] Work Phone: Start: 09-03-2024 End: 09-03-2024 Emergency department patient visit Paramjit Yanes DO Work Phone: [facility] Work Phone: Start: 08-25-2024 End: 08-25-2024 Office outpatient visit 25 minutes Anum L Holman [facility] Work Phone: [facility] Comment on above: Late period (Primary Dx); Unprotected sex Start: 08-25-2024 End: 08-25-2024 ambulatory ANUM L GLO Not Available Start: 08-25-2024 End: 08-25-2024 Bamboo flowsheet Anum L Holman [facility] Work Phone: [facility] Start: 08-25-2024 End: 08-25-2024 Bamboo flowsheet Anum L Glo [facility] Work Phone: [facility] Start: 08-02-2024 End: 08-02-2024 Office outpatient visit 15 minutes Carlos Zaragoza MD, IBCLC Work Phone: [facility] Comment on above: Viral URI with cough (Primary Dx) Start: 08-02-2024 End: 08-02-2024 ambulatory CARLOS ZARAGOZA Not Available Start: 06-29-2024 ambulatory Frank Castillo Facility:[facility] Start: 06-29-2024 Registered Recurring Paramjit Cynthia gibran DO Work Phone: [facility] Start: 06-29-2024 End: 06-29-2024 Emergency department patient visit DO Divina Araya Work Phone: [facility]Emer[facility] Work Phone: Start: 04-29-2024 End: 04-29-2024 Office outpatient visit 25 minutes Diego Araya DO Work Phone: [facility] 230 Comment on above: PTSD (post-traumatic stress disorder) (CMS/HCC) (Primary Dx); Bipolar 1 disorder (CMS/HCC); Allergic urticaria; Marijuana abuse; Abdominal discomfort; Mild intermittent asthma, unspecified whether complicated (CMS/HCC) Start: 04-29-2024 End: 04-29-2024 Bamboo flowsheet Diego [facility] DO [facility] Start: 04-29-2024 End: 04-29-2024 Bamboo flowsheet Diego [facility] DO [facility] Start: 04-17-2024 End: 04-17-2024 Emergency department patient visit DO Divina Araya Work Phone: [facility] Work Phone: Start: 10-13-2023 End: 10-13-2023 Emergency department patient visit DO Divina Araya Work Phone: [facility] Work Phone: Start: 09-28-2023 End: 09-28-2023 Emergency department patient visit DO Divina Araya Work Phone: [facility] Work Phone: Start: 09-10-2023 End: 09-10-2023 Admission to same day surgery center DO Divina Araya Work Phone: [facility] Work Phone: Start: 09-10-2023 End: 09-10-2023 ambulatory DO Divina Araya Work Phone: [facility] Work Phone: Start: 07-27-2023 End: 07-27-2023 ambulatory DO Divina Menardlottie Work Phone: [facility] Work Phone: Start: 07-27-2023 End: 07-27-2023 Patient encounter procedure DO Divina Menadrlottie Work Phone: [facility]CT [facility] [place] Work Phone: Start: 07-11-2023 End: 07-11-2023 ambulatory Imad Asaad Other [facility] Other Start: 07-11-2023 Telephone encounter Imad Asaad [facility] Start: 06-03-2023 End: 06-03-2023 Admission to same day surgery center DO Divina Menardlottie Work Phone: [facility] Work Phone: Start: 06-03-2023 End: 06-03-2023 ambulatory DO Divina Menardlottie Work Phone: [facility] Work Phone: Start: 05-08-2023 End: 05-08-2023 ambulatory DO Divina Menardlottie Work Phone: [facility] Work Phone: Start: 05-08-2023 End: 05-08-2023 Patient encounter procedure DO Divina Menardolttie Work Phone: [facility]Lab [facility] [place] Work Phone: Start: 04-25-2023 End: 04-25-2023 ambulatory Imad Asaad Other [facility] Other Start: 04-25-2023 [facility] visit new patient Imad Asaad [facility] Start: 12-29-2022 End: 12-29-2022 Emergency department patient visit DO Divina Araya Work Phone: [facility] Work Phone: Start: 11-06-2022 End: 11-07-2022 ambulatory Kayy Gudimella Facility:[facility] Start: 11-06-2022 End: 11-06-2022 Patient encounter procedure Kayy Gudimella [facility] Start: 07-22-2022 End: [...] Procedure Procedure Detail Performing Clinician Start: 05-13-2025 RECURRENT VAGINITIS (HTRX) Demarco Madrigal O Work Phone: Start: 05-13-2025 Urnls dip stick/tablet rgnt non-auto w/o micrscp Demarco Orr DO Work Phone: Start: 05-03-2025 Urnls dip [...] Start: 01-25-2025 RECURRENT VAGINITIS (HTRX) Susan head [facility] Work Phone: Start: 01-25-2025 Urnls dip stick/tablet rgnt non-auto w/o micrscp Susan Troy [facility] Work Phone: Start: 12-03-2024 BOX TEST Demarco Kirby DO Work Phone: Start: 11-05-2024 Urnls dip stick/tablet rgnt non-auto w/o micrscp Demarco Kirby DO Work Phone: Start: 09-21-2024 Plain X-ray of right shoulder Paramjit brown DO Work Phone: Start: 08-25-2024 Gonadotropin chorionic quantitative Lamar Cody [facility] Work Phone: Start: 08-25-2024 Urine test visual color cmprsn meths Anum Cody [facility] Work Phone: Start: 10-13-2023 Plain chest X-ray [...] Treatment Date Care Activity Detail Author Start: 05-18-2025 End: 05-18-2025 Patient encounter procedure [facility] Comment on above: Arrived Start: 05-13-2025 End: 05-13-2026 CULTURE, GROUP B STREP WITH SUSCEPTIBLITY CULTURE, GROUP B STREP WITH SUSCEPTIBLITY Lab Routine Third trimester ([facility]) Expected: 05/13/2025, Expires: 05/13/2026 [facility]: Comment on above: Expected: 05/13/2025 , Expires: 05/13/2026 Start: 05-13-2025 End: 05-13-2025 Patient encounter procedure 05/13/2025 9:30 AM EDT Routine [facility] [address] [place] [id number] Demarco Orr, DO [address] [place] [address] [facility] Start: 05-10-2025 Influenza vaccination [facility] Start: 05-06-2025 End: 05-06-2025 Patient encounter procedure 05/06/2025 10:50 AM EDT Routine [facility] [address] [place] [id number] Cira Chairez PA [address] [place] [address] [facility] Start: 04-13-2025 End: 04-13-2025 Patient encounter procedure 04/13/2025 10:30 AM EDT Routine [facility] [address] [place] [id number] Demarco Orr, DO [address] [place] [address] [facility] Start: 04-13-2025 End: 04-13-2025 Professional / ancillary services management 04/13/2025 10:00 AM EDT Ancillary Procedure [facility] [address] [place] [phone] [facility] Start: 03-29-2025 End: 03-29-2025 Patient encounter procedure 03/29/2025 3:50 PM EDT Routine [facility] [address] [place] [id number] Cira Chairez PA [address] [place] [address] Arrived [facility] Comment on above: Arrived Start: 03-29-2025 End: 07-30-2025 US for US OB follow up transabdominal approach Imaging Routine Size of fetus inconsistent with dates in first trimester ([facility]) Expected: 03/29/2025, Expires: 07/30/2025 [facility] Work Phone: Comment on above: Expected: 03/29/2025 , Expires: 07/30/2025 Start: 03-18-2025 End: 03-18-2025 Patient encounter procedure 03/18/2025 10:10 AM EDT Routine [facility] [address] [place] [id number] Demarco Orr DO [address] [place] [address] [facility] Start: 02-22-2025 End: 02-22-2026 CBC panel - Blood by Automated count CBC Lab Routine Second trimester ([facility]) 25 weeks gestation of ([facility]) Diabetes mellitus screening Expected: 02/22/2025, Expires: 02/22/2026 [facility] Work Phone: Comment on above: Expected: 02/22/2025 , Expires: 02/22/2026 Start: 02-22-2025 End: 02-22-2026 Measurement of glucose 1 hour after glucose challenge for glucose tolerance test Glucose tolerance, 1 hour Lab Routine Second trimester ([facility]) 25 weeks gestation of ([facility]) Diabetes mellitus screening Expected: 02/22/2025, Expires: 02/22/2026 [facility] Comment on above: Expected: 02/22/2025 , Expires: 02/22/2026 Start: 02-22-2025 End: 02-22-2025 Patient encounter procedure [facility] Comment on above: Arrived Start: 01-30-2025 Hospital admission [facility] Start: 01-30-2025 End: 01-30-2025 [facility] Start: 01-30-2025 Duplex scan of lower limb veins US venous duplex LE BI [facility] Start: 01-30-2025 US Lower extremity v ein - bilateral [facility] Start: 01-25-2025 End: 02-25-2025 Alpha fetoprotein, maternal Alpha fetoprotein, maternal Lab Routine Second trimester 21 weeks gestation of Expected: 01/25/2025 (Approximate), Expires: 02/25/2025 [facility] Comment on above: Expected: 01/25/2025 (Approximate), Expires: 02/25/2025 Start: 01-25-2025 End: 04-27-2025 US for US OB 14+ weeks anatomy scan Imaging Routine Screening, , for anatomic survey Expected: 01/25/2025, Expires: 04/27/2025 [facility] Comment on above: Expected: 01/25/2025 , Expires: 04/27/2025 Start: 12-07-2024 End: 12-07-2024 Patient encounter procedure 12/07/2024 3:50 PM EDT Routine [facility] [address] [place] [address] Dmearco Orr, DO [address] [place] [address] [facility] Start: 12-03-2024 End: 12-03-2024 Patient encounter procedure 12/03/2024 10:10 AM EDT Routine [facility] [address] [place] [address] Demarco Orr, DO [address] [place] [address] [facility] Start: 11-09-2024 End: 11-09-2024 Patient encounter procedure 11/09/2024 1:20 PM EST Office Visit [facility] [address] [place] [phone] Cira Chairez PA [address] [place] [address] [facility] Start: 11-05-2024 End: 11-05-2025 ABO/Rh ABO/Rh Lab Routine Missed menses , unspecified gestational age Expected: 11/05/2024 (Approximate), Expires: 11/05/2025 [facility] Comment on above: Expected: 11/05/2024 (Approximate), Expires: 11/05/2025 Start: 11-05-2024 End: 11-05-2025 Blood type and Indirect antibody screen panel - Blood Type and screen Lab Routine Missed menses , unspecified gestational age Expected: 11/05/2024 (Approximate), Expires: 11/05/2025 [facility] Comment on above: Expected: 11/05/2024 (Approximate), Expires: 11/05/2025 Start: 11-05-2024 End: 11-05-2025 Drugs of abuse panel - Urine by Screen method Rapid drug screen, urine Lab Routine , unspecified gestational age Encounter for supervision of normal first in first trimester Expected: 11/05/2024 (Approximate), Expires: 11/05/2025 [facility] Comment on above: Expected: 11/05/2024 (Approximate), Expires: 11/05/2025 Start: 11-05-2024 End: 11-05-2025 US Pelvis transvaginal [facility] Work Phone: Comment on above: Expected: 11/05/2024 , Expires: 11/05/2025 Start: 05-10-2024 Influenza vaccination Influenza Vacc ine (#1) [facility] Start: 04-29-2024 End: 04-29-2024 Patient encounter procedure 04/29/2024 4:00 PM EDT Office Visit [facility] [address] [place] [address] Diego Araya DO [address] [place] [address] Arrived [facility] Comment on above: Arrived Start: 04-29-2024 End: 04-29-2025 Cotton linters, untreated IgE Cotton linters, untreated IgE Lab Routine Allergic urticaria Expected: 04/29/2024 (Approximate), Expires: 04/29/2025 [facility] Comment on above: Expected: 04/29/2024 (Approximate), Expires: 04/29/2025 Start: 04-29-2024 End: 04-29-2025 Dog dander IgE Dog dander IgE Lab Routine Allergic urticaria Expected: 04/29/2024 (Approximate), Expires: 04/29/2025 [facility] Comment on above: Expected: 04/29/2024 (Approximate), Expires: 04/29/2025 Start: 04-29-2024 End: 04-29-2025 Food allergy profile Food allergy profile Lab Routine Allergic urticaria Expected: 04/29/2024 (Approximate), Expires: 04/29/2025 [facility] Work Phone: Comment on above: Expected: 04/29/2024 (Approximate), Expires: 04/29/2025 Start: 04-29-2024 End: 04-29-2025 Nfel D 2 cat serum albumin IgE Nfel D 2 cat serum albumin IgE Lab Routine Allergic urticaria Expected: 04/29/2024 (Approximate), Expires: 04/29/2025 [facility] Comment on above: Expected: 04/29/2024 (Approximate), Expires: 04/29/2025 Start: 10-13-2023 [facility] Start: 09-28-2023 Bacteria identified in Urine by Culture [facility] Start: 09-10-2023 [facility] Start: 06-03-2023 [facility] Start: 05-08-2023 Ova and Parasite Concentrate Exam Ova and Parasite Concentrate Exam [facility] Start: 12-29-2022 Bacteria identified in Urine by Culture [facility] aPTT in Platelet poo r plasma by Coagulation assay [facility] Bacteria identified in Urine by Culture Urine culture Microbiology Routine Missed menses Ordered: 11/05/2024 [facility] Comment on above: Ordered: 11/05/2024 Calprotectin [Mass/mass] in Stool [facility] CBC W Auto Different ial panel - Blood CBC and differential Lab Routine Missed menses , unspecified gestational age Ordered: 11/05/2024 [facility] Comment on above: Ordered: 11/05/2024 CBC W Auto Different ial panel - Blood CBC and differential Lab Routine Third trimester ([facility]) Ordered: 03/29/2025 [facility] Comment on above: Ordered: 03/29/2025 CHLAMYDIA TRACHOMATI S (GENITO/STI) CHLAMYDIA TRACHOMATIS (GENITO/STI) Lab Routine Vaginal discharge STD exposure Ordered: 01/25/2025 [facility] Comment on above: Ordered: 01/25/2025 CHLAMYDIA TRACHOMATI S (GENITO/STI) CHLAMYDIA TRACHOMATIS (GENITO/STI) Lab Routine Exposure to STD Ordered: 05/13/2025 [facility] Comment on above: Ordered: 05/13/2025 Cytology Cervical or vaginal smear or scraping study Pap Smear Pathology and Cytology Routine Well woman exam with routine gynecological exam Ordered: 01/25/2025 [facility] Work Phone: Comment on above: Ordered: 01/25/2025 Elastase.pancreatic [Mass/mass] in Stool [facility] Fibrin D-dimer [Presence] in Platelet poor plasma by Latex agglutination [facility] Hemoglobin A1c/Hemoglobin.total in Blood Hemoglobin A1c Lab Routine Missed menses , unspecified gestational age Ordered: 11/05/2024 [facility] Comment on above: Ordered: 11/05/2024 Hemoglobin A1c/Hemoglobin.total in Blood Hemoglobin A1c Lab Routine Third trimester ([facility]) Ordered: 03/29/2025 [facility] Comment on above: Ordered: 03/29/2025 Hepatitis B virus surface Ag [Presence] in Serum or Plasma by Immunoassay Hepatitis B surface antigen Lab Routine Missed menses , unspecified gestational age Ordered: 11/05/2024 [facility] Comment on above: Ordered: 11/05/2024 Hepatitis C virus Ab [Presence] in Serum or Plasma by Immunoassay Hepatitis C antibody Lab Routine Missed menses , unspecified gestational age Ordered: 11/05/2024 [facility] Comment on above: Ordered: 11/05/2024 HIV-1/HIV-2 antigen/antibody combination immunoassay HIV-1 and HIV-2 antibodies Lab Routine Missed menses , unspecified gestational age Ordered: 11/05/2024 [facility] Comment on above: Ordered: 11/05/2024 INR in Platelet poor plasma by Coagulation assay [facility] Neisseria gonorrhoea e DNA [Presence] in Unspecified specimen by OMAIRA with probe detection Neisseria gonorrhea DNA probe, direct Lab Routine Vaginal discharge STD exposure Ordered: 01/25/2025 [facility] Comment on above: Ordered: 01/25/2025 Neisseria gonorrhoea e DNA [Presence] in Unspecified specimen by OMAIRA with probe detection Neisseria gonorrhea DNA probe, direct Lab Routine Exposure to STD Ordered: 05/13/2025 [facility] Comment on above: Ordered: 05/13/2025 Ova and parasites identified in Unspecified specimen by Light microscopy [facility] Patient Education [facility] Work Phone: Patient referral [facility] Work Phone: Prothrombin time (PT) [facility] Reagin Ab [Presence] in Serum by RPR RPR Lab Routine Missed menses , unspecified gestational age Ordered: 11/05/2024 [facility] Comment on above: Ordered: 11/05/2024 Rubella antibody, IgG Rubella an tibody, IgG Lab Routine Missed menses , unspecified gestational age Ordered: 11/05/2024 [facility] Comment on above: Ordered: 11/05/2024 SURESWAB(R) ADVANCED VAGINITIS PLUS, TMA SURESWAB(R) ADVANCED VAGINITIS PLUS, TMA Pathology and Cytology Routine Vaginal discharge STD exposure Ordered: 01/25/2025 [facility] Comment on above: Ordered: 01/25/2025 SURESWAB(R) ADVANCED VAGINITIS PLUS, TMA SURESWAB(R) ADVANCED VAGINITIS PLUS, TMA Pathology and Cytology Routine Vaginal discharge Ordered: 05/13/2025 [facility] Comment on above: Ordered: 05/13/2025 Immunizations Immunization Date Immunization Notes Care Provider [facility] 06-02-2020 Human Papillomavirus 9-valent vaccine Diego Araya DO Work Phone: [facility] 06-02-2020 meningococcal oligosaccharide (groups A, C, Y and W-135) diphtheria toxoid conjugate vaccine (MCV4O) Diego Araya DO Work Phone: [facility] 06-02-2015 human papilloma viru s vaccine, quadrivalent Diego Derianlottie DO Work Phone: [facility] 06-02-2015 influenza, seasonal, injectable Diego Araya DO Work Phone: [facility] 06-02-2015 meningococcal polysaccharide (groups A, C, Y and W-135) diphtheria toxoid conjugate vaccine (MCV4P) Diego Araya DO Work Phone: [facility] 06-02-2015 tetanus toxoid, redu ekaterina diphtheria toxoid, and acellular pertussis vaccine, adsorbed Diego Araya DO Work Phone: [facility] 06-02-2015 influenza virus vaccine, unspecified formulation Diego Araya DO Work Phone: [facility] 03-19-2007 hepatitis A vaccine, unspecified formulation Diego Araya DO Work Phone: [facility] 05-07-2006 diphtheria, tetanus toxoids and acellular pertussis vaccine, unspecified formulation Diego Araya DO Work Phone: [facility] 05-07-2006 hepatitis A vaccine, unspecified formulation Diego Araya DO Work Phone: [facility] 05-07-2006 measles, mumps and rubella virus vaccine Diego Araya DO Work Phone: [facility] 05-07-2006 pneumococcal conjuga te vaccine, 7 valent Diego Araya DO Work Phone: [facility] 05-07-2006 poliovirus vaccine, inactivated Diego Araya DO Work Phone: [facility] 05-07-2006 varicella virus vaccine Rhea Araya DO Work Phone: [facility] 07-12-2003 diphtheria, tetanus toxoids and acellular pertussis vaccine Diego Araya DO Work Phone: [facility] 07-12-2003 haemophilus influenz ae type b vaccine, PRP-T conjugate Diego Araya DO Work Phone: [facility] 07-12-2003 measles, mumps and rubella virus vaccine Diego Araya DO Work Phone: [facility] 07-12-2003 pneumococcal conjuga te vaccine, 7 valent Diego Araya DO Work Phone: [facility] 07-12-2003 varicella virus vaccine Rhea Araya DO Work Phone: [facility] 2002 diphtheria, tetanus toxoids and acellular pertussis vaccine, unspecified formulation Diego Araya DO Work Phone: [facility] 2002 haemophilus influenz ae type b conjugate and Hepatitis B vaccine Diego Araya DO Work Phone: [facility] 2002 poliovirus vaccine, inactivated Diego Araya DO Work Phone: [facility] 2002 diphtheria, tetanus toxoids and acellular pertussis vaccine, unspecified formulation Diego Araya DO Work Phone: [facility] 2002 haemophilus influenz ae type b vaccine, conjugate unspecified formulation Diego Araya DO Work Phone: [facility] 2002 pneumococcal conjuga te vaccine, 7 valent Diego Araya DO Work Phone: [facility] 2002 poliovirus vaccine, inactivated Diego Araya DO Work Phone: [facility] 2002 diphtheria, tetanus toxoids and acellular pertussis vaccine, unspecified formulation Diego Araya DO Work Phone: [facility] 2002 haemophilus influenz ae type b conjugate and Hepatitis B vaccine Diego Araya DO Work Phone: [facility] 2002 pneumococcal conjuga te vaccine, 7 valent Diego Araya DO Work Phone: [facility] 2002 poliovirus vaccine, inactivated Diego Araya DO Work Phone: [facility] 2002 hepatitis B vaccine, pediatric or pediatric/adolescent dosage Diego Araya DO Work Phone: [phone] [place] [address] NEGATED: Highlighted row has not occurred!11-06-2022 influenza virus vaccine, unspecified formulation Kayy Radhala [facility] NEGATED: Highlighted row has not occurred!11-06-2022 SARS-CoV-2 mRNA (tozinameran 5y-11y) vaccine Kayy Radhala [facility] Payers Date Payer Category Payer Self-pay [id number] 2023 Medicaid [employer] [place] [id number] 2023-Present [address] [place] [address] [id number] 2022 Medicaid (Managed Care) 1.2. [id number] 2013 Unknown HCAP/HFA/FAP Active [id number] 2002 Unknown [id number] 2.16.840.1.856320.3.579.2.5 93 2002 Unknown [id number] 2.16.840.1.776421.3.579.2.5 93 2002 Unknown [id number] 2.16.840.1.728811.3.579.2.5 93 2002 Unknown [id number] 2.16.840.1.019587.3.579.2.5 93 2002 Unknown [id number] 2.16.840.1.350895.3.579.2.5 93 2002 Unknown [id number] 2.16.840.1.832770.3.579.2.5 93 2002 Unknown [id number] 2.16.840.1.506541.3.579.2.5 93 2002 Unknown [id number] 2.16.840.1.472072.3.579.2.5 93 2002 Unknown [id number] 2.16.840.1.847809.3.579.2.5 93 2002 Unknown [id number] 2.16.840.1.389404.3.579.2.5 93 2002 Unknown [id number] 2.16.840.1.352345.3.579.2.7 27 2002 Unknown [id number] 2.16.840.1.364785.3.579.2.1 259 2002 Unknown [id number] 2.16.840.1.538706.3.579.2.1 259 2002 Unknown [id number] 2.16.840.1.218900.3.579.2.1 259 2002 Unknown [id number] 2.16.840.1.040695.3.579.2.1 259 2002 Unknown [id number] 2.840.1.346899.3.579.2.1 259 2002 Unknown [id number] 2.16.840.1.985937.3.579.2.1 259 2002 Unknown [id number] 2.16.840.1.086065.3.579.2.1 259 2002 Unknown [id number] 2.16.840.1.837656.3.579.2.1 259 2002 Unknown [id number] 2.16.840.1.093592.3.579.2.1 259 2002 Unknown [id number] 2.16.840.1.210408.3.579.2.1 259 2002 Unknown [id number] 2.16.840.1.711445.3.579.2.1 259 2002 Unknown [id number] 2.16.840.1.644012.3.579.2.1 259 1959 Unknown [id number] Unknown [id number] 2.16840.1.226120.3.579.2.5 93 Unknown [id number] 2.16.840.1.202076.3.579.2.5 31 Unknown [id number] 2.16.840.1.108619.3.579.2.5 31 Unknown [id number] 2.16.840.1.468921.3.579.2.5 31 Unknown [id number] 2.16.840.1.593551.3.579.2.5 31 Unknown [id number] 2.16.840.1.532364.3.579.2.5 31 Unknown [id number] 2.16.840.1.489944.3.579.2.5 31 Unknown [id number] 2.16.840.1.146332.3.579.2.5 31 Unknown [id number] 2.16.840.1.550343.3.579.2.5 31 Social History Date Type Detail Facility Start: 11-06-2022 End: 04-07-2023 Tobacco smoking status Never smoked tobacco (finding) [facility] Tobacco smoking status Never [facility] Start: 04-29-2024 End: 03-01-2025 Sex Assigned At Female [facility] Start: 2000 Sex Assigned At Female [facility] Start: 09-10-2023 End: 01-30-2025 Tobacco smoking status NHIS Smoker (finding) [facility] Start: 04-07-2023 Tobacco use and exposure Smokeless tobacco non-user [facility] Start: 08-02-2024 End: 05-13-2025 Alcoholic beverage intake Lifetime non-drinker (finding) [facility] Start: 04-29-2024 End: 03-01-2025 History of Social function [facility] Work Phone: Start: 04-07-2023 Alcohol Comment caffeine: occasional [facility] Start: 2000 Sex assigned at Not on file [facility] Start: 09-21-2024 End: 01-30-2025 Sex Female (finding) [facility] Start: 09-14-2024 [facility] NEGATED: Highlighted row [facility] Goals Date Patient Goal Desired Activity /State Functional Status Date Assessment Result Facility 11-06-2022 Functional Status N/A [facility] Clinical Notes 11-06-2022 to 05-13-2025 Cee Karlos, NEIL - 05/13/2025 9:30 AM KEVIN Harvey - 05/03/2025 2:50 PM EDTSmary jo Batista, NEIL - 04/22/2025 11:00 AM KEVIN Harvey - [...] before breakfast, Do not crush or chew. Qrofjfay-Bzm-Vo-FA ( 1 + IRON PO) 1 tablet, [...] depression 12/20/2023 Marijuana abuse 04/28/2024 Second trimester ([facility]) 02/22/2025 25 weeks gestation of ([facility]) 02/22/2025 Resolved Ambulatory Problems Diagnosis Date Noted [...] nursing note reviewed. Exam conducted with a multiplex operator present. Vitals: Estimated body mass index is 24.14 kg/m as calculated from the following: Height as of 04/29/24: 5' 2 . Weight as of this encounter: 132 lb. BP: 110/70 Patient's last menstrual period was 08/31/2024. ASSESSMENT & PLAN ICD-10-CM 1. 36 weeks gestation of ([facility]) Z3A.36 POCT urinalysis dipstick manually resulted 2. Third trimester ([facility]) Z34.93 POCT urinalysis dipstick manually resulted CULTURE, GROUP B STREP WITH SUSCEPTIBLITY CULTURE, GROUP B STREP WITH SUSCEPTIBLITY 3. Gastroesophageal reflux in ([facility]) O99.619 K21.9 4. Exposure to STD Z20.2 [...] Demarco Orr DO documented in this encounter [facility] 05-03-2025 History of Present illness Narrative [...] before breakfast, Do not crush or chew. Qprrfbxi-Fmp-Kb-FA ( 1 + IRON PO) 1 tablet, [...] depression 12/20/2023 Marijuana abuse 04/28/2024 Second trimester ([facility]) 02/22/2025 25 weeks gestation of ([facility]) 02/22/2025 Resolved Ambulatory Problems Diagnosis Date Noted ADHD (attention deficit hyperactivity disorder) 12/20/2023 Past Medical History: Diagnosis Date Acid reflux Allergies Episodic tension type headache Fractured nose HISTORY PAST MEDICAL HISTORY SOCIAL HISTORY Past Medical History: Diagnosis Date Acid reflux ADHD (attention deficit hyperactivity disorder) 12/20/2023 Allergies Asthma ([facility]) Episodic tension type headache Fractured nose Social [...] ASSESSMENT & PLAN ICD-10-CM 1. Third trimester ([facility]) Z34.93 POCT urinalysis dipstick manually resulted 2. 35 weeks gestation of ([facility]) Z3A.35 POCT urinalysis dipstick manually resulted Return OB: Patient presents today for a routine obstetrics appointment. Patient is currently 35w0d . Patient states she is doing well but has complaints of being tired due to current . Patient has verbalizes frequent movement. labor precautions was discussed/given and patient was instructed to perform kick counts three times a day. Pt seen at [facility] for contractions. Pt given fluids and stopped lindsey. Pt here for follow up. We will see her in one week for GBS Orders Placed This Encounter Procedures POCT urinalysis dipstick manually resulted Follow Up: Patient is to return to office in 1 week for routine OB appointment. Documented by KEVIN Guevara on behalf of: KEVIN Guevara documented in this encounter [facility] 04-22-2025 History of Present illness Narrative [...] before breakfast, Do not crush or chew. Vczzqdpu-Lnr-Gg-FA ( 1 + IRON PO) 1 tablet, Daily ALLERGIES Allergies Allergen Reactions Tilactase Diarrhea Amoxicillin Unknown PROBLEMS Active Ambulatory Problems Diagnosis Date Noted Anxiety 04/09/2023 Asthma (HCC) 04/09/2023 Gastroesophageal reflux disease without esophagitis 04/09/2023 Left wrist pain 04/09/2023 Multiple joint pain 04/09/2023 PTSD (post-traumatic stress disorder) 12/20/2023 depression 12/20/2023 Marijuana abuse 04/28/2024 Second trimester ([facility]) 02/22/2025 25 weeks gestation of ([facility]) 02/22/2025 Resolved Ambulatory Problems Diagnosis Date Noted [...] nursing note reviewed. Exam conducted with a multiplex operator present. Vitals: Estimated body mass index is 23.5 kg/m as calculated from the following: Height as of 04/29/24: 5' 2 . Weight as of this encounter: 128 lb 8 oz. BP: 102/70 Patient's last menstrual period was 08/31/2024. ASSESSMENT & PLAN ICD-10-CM 1. Third trimester ([facility]) Z34.93 POCT urinalysis dipstick manually resulted 2. 33 weeks gestation of ([facility]) Z3A.33 Patient presents today for a routine obstetrics appointment. Patient is currently 33w3d with a Estimated Date of Delivery: 06/07/25. Patient was considering tubal ligation, but patient and spouse are not sure if they have s completed child-bearing. Discussed buttermaker management with Mirena IUD & patient will consider Mirena. Patient to return to clinic in 2-3 weeks. Documented by Jennifer Batista LPN on behalf of: Demarco Orr DO documented in this encounter [facility] 03-29-2025 History of Present illness Narrative [...] before breakfast, Do not crush or chew. Egusryke-Feh-Pi-FA ( 1 + IRON PO) 1 tablet, Daily ALLERGIES Allergies Allergen Reactions Tilactase Diarrhea Amoxicillin Unknown PROBLEMS Active Ambulatory Problems Diagnosis Date Noted Anxiety 04/09/2023 Asthma (HCC) 04/09/2023 Gastroesophageal reflux disease without esophagitis 04/09/2023 Left wrist pain 04/09/2023 Multiple joint pain 04/09/2023 PTSD (post-traumatic stress disorder) 12/20/2023 depression 12/20/2023 Marijuana abuse 04/28/2024 Second trimester ([facility]) 02/22/2025 25 weeks gestation of ([facility]) 02/22/2025 Resolved Ambulatory Problems Diagnosis Date Noted [...] ASSESSMENT & PLAN ICD-10-CM 1. Third trimester ([facility]) Z34.93 POCT urinalysis dipstick manually resulted 2. 30 weeks gestation of ([facility]) Z3A.30 Return OB: Patient presents today for [...] routine OB appointment. documented in this encounter [facility] 02-22-2025 History of Present illness Narrative Reason for Appointment: Patient ID: Dawn Major is a 24 y.o. female who presents for No chief complaint on file. Patient presents today for Return OB appointment. MEDICATIONS Current Outpatient Medications Medication Instructions albuterol HFA 90 mcg/act inhaler 2 puffs, Inhalation, Every 4 hours PRN Rtlwhqbp-Yqu-Wf-FA ( 1 + IRON PO) 1 tablet, Daily ALLERGIES Allergies Allergen Reactions Tilactase Diarrhea Amoxicillin Unknown Milk (Cow) Unknown PROBLEMS Active Ambulatory Problems Diagnosis Date Noted Anxiety 04/09/2023 Asthma (HCC) 04/09/2023 Gastroesophageal reflux disease without esophagitis 04/09/2023 Left wrist pain 04/09/2023 Multiple joint pain 04/09/2023 PTSD (post-traumatic stress disorder) 12/20/2023 depression 12/20/2023 Marijuana abuse 04/28/2024 Second trimester ([facility]) 02/22/2025 25 weeks gestation of ([facility]) 02/22/2025 Resolved Ambulatory Problems Diagnosis Date Noted ADHD (attention deficit hyperactivity disorder) 12/20/2023 Past Medical History: Diagnosis Date Acid reflux Allergies Episodic tension type headache Fractured nose HISTORY PAST MEDICAL HISTORY SOCIAL HISTORY Past Medical History: Diagnosis Date Acid reflux ADHD (attention deficit hyperactivity disorder) 12/20/2023 Allergies Asthma ([facility]) Episodic tension type headache Fractured nose Social [...] nursing note reviewed. Exam conducted with a multiplex operator present. Vitals: Estimated body mass index is 20.58 kg/m as calculated from the following: Height as of 04/29/24: 5' 2 . Weight as of 01/25/25: 112 lb 8 oz. BP: Patient's last menstrual period was 08/31/2024. ASSESSMENT & PLAN ICD-10-CM 1. Second trimester ([facility]) Z34.92 POCT urinalysis dipstick manually resulted CBC Glucose tolerance, 1 hour CBC Glucose tolerance, 1 hour 2. 25 weeks gestation of ([facility]) Z3A.25 POCT urinalysis dipstick manually resulted CBC [...] routine OB appointment. documented in this encounter [facility] 01-30-2025 Radiology Diagnostic study note [facility] Main [place] [address] [place] [address] Ultrasound Report Signed Patient: Dawn Major MR#: [id number] : 2000 Acct:[id number] Age/Sex: 24 / F ADM Date: 5 Loc: ER Room: Type: [facility] ER Attending Dr: Ordering Provider: Vipin Stroud DO Date of Service: 01/30/25 US/US venous duplex LE BI: r/o dvt Copies to: Vipin M Stroud, DO~ BILATERAL LOWER EXTREMITY VENOUS DUPLEX INDICATION: [...] Gonzales M.D. 02/02/2025 12:17 PM Dictation Location: [place] [address] Tech: Alice Sanchezslick Transcribed By: SHERINE 02/02/25 121 Dictated By: Arvin Gonzales MD 02/02/251215 Signed By: 02/02/25 121 [facility] Work Phone: 01-25-2025 History of Present illness Narrative Reason for Appointment: Patient ID: Dawn Major is a 24 y.o. female who presents for Routine Visit Patient presents today for Return OB appointment. MEDICATIONS Current Outpatient Medications Medication Instructions albuterol HFA 90 mcg/act inhaler 2 puffs, Inhalation, Every 4 hours PRN Vurhkwsu-Eqt-Fn-FA ( 1 + IRON PO) 1 tablet, Daily ALLERGIES Allergies Allergen Reactions Tilactase Diarrhea Amoxicillin Unknown Milk (Cow) Unknown PROBLEMS Active Ambulatory Problems Diagnosis Date Noted Anxiety 04/09/2023 Asthma 04/09/2023 Gastroesophageal reflux disease without esophagitis 04/09/2023 Left wrist pain 04/09/2023 Multiple joint pain 04/09/2023 PTSD (post-traumatic stress disorder) ([facility]) 12/20/2023 depression ([facility]) 12/20/2023 Marijuana abuse 04/28/2024 Resolved Ambulatory Problems Diagnosis Date Noted ADHD (attention deficit hyperactivity disorder) ([facility]) 12/20/2023 Past Medical History: Diagnosis Date Acid reflux Allergies Episodic tension type headache Fractured nose HISTORY PAST MEDICAL HISTORY SOCIAL HISTORY Past Medical History: Diagnosis Date Acid reflux ADHD (attention deficit hyperactivity disorder) ([facility]) 12/20/2023 Allergies Asthma Episodic tension type headache [...] nursing note reviewed. Exam conducted with a multiplex operator present. Vitals: Estimated body mass index is [...] Susan Troy NP documented in this encounter [facility] 12-07-2024 History of Present illness Narrative [...] joint pain 04/09/2023 PTSD (post-traumatic stress disorder) ([facility]) 12/20/2023 depression ([facility]) 12/20/2023 Marijuana abuse 04/28/2024 Resolved Ambulatory Problems Diagnosis Date Noted ADHD (attention deficit hyperactivity disorder) ([facility]) 12/20/2023 Past Medical History: Diagnosis Date Acid reflux Allergies Episodic tension type headache Fractured nose HISTORY PAST MEDICAL HISTORY SOCIAL HISTORY Past Medical History: Diagnosis Date Acid reflux ADHD (attention deficit hyperactivity disorder) ([facility]) 12/20/2023 Allergies Asthma Episodic tension type headache [...] nursing note reviewed. Exam conducted with a multiplex operator present. Vitals: Estimated body mass index is [...] or undercooked meat, and stay away from [facility]. Patient has been consulted regarding any further do's and don'ts of . Patient voiced understanding and all questions and concerns were answered. Follow Up: Patient is to return in 4 weeks for routine OB appointment. Documented by Jennifer Batista LPN on behalf of: Demarco Orr DO documented in this encounter [facility] 11-05-2024 History of Present illness Narrative [...] Problems Diagnosis Date Noted Anxiety 04/09/2023 Asthma ([facility]) 04/09/2023 Gastroesophageal reflux disease without esophagitis 04/09/2023 Left wrist pain 04/09/2023 Multiple joint pain 04/09/2023 PTSD (post-traumatic stress disorder) ([facility]) 12/20/2023 depression ([facility] 12/20/2023 Marijuana abuse 04/28/2024 Resolved Ambulatory Problems Diagnosis Date Noted ADHD (attention deficit hyperactivity disorder) ([facility]) 12/20/2023 Past Medical History: Diagnosis Date Acid [...] calculated from the following: Height as of 24: 5' 2 . Weight as of this [...] or undercooked meat, and stay away from [facility]. Patient has also been advised to not change litter boxes and eat 6 small meals a day. Patient has been consulted regarding the do's and don'ts of . Patient was given labs and all questions and concerns were answered. Patient was given [place] labs to have completed and to schedule [...] Cee Everett LPN documented in this encounter [facility] 08-25-2024 History of Present illness Narrative Images from the original note were not included. [address] , [address] [facility], [address] P: [phone] F: [phone] HPI Historian of HPI: patient Dawn Major [...] call with results when available. Follow-up with PIPE OUT WORKER - hCG, quantitative, documented in this encounter [facility] 08-02-2024 History of Present illness Narrative Images from the original note were not included. [address], [address] [facility], [address] P: [phone] F: [phone] HPI Historian of HPI: patient Dawn Major [...] Final PERFORMING LAB: 07/24/[address] [facility] - [address] [address] ,Ext. [phone] ASSESSMENT & PLAN: Assessment & Plan Viral URI with cough Symptoms and time course consistent with viral URI. Reviewed [id number] symptomatic treatments, including NSAIDs/acetaminophen for fever and myalgias, decongestants, nasal sprays and ample hydration. Advised patient return to clinic if symptoms suddenly worsen or do not improve after 7-10 days of symptoms. Provided reassurance. Carlos Zaragoza MD, IBCLC [facility] documented in this encounter [facility] 04-29-2024 History of Present illness Narrative Images from the original note were not included. SUBJECTIVE: Dawn Major is a 24 y.o. female presents with chief complaint of No chief complaint on file. Pt presents to discuss an increase in her anxiety, possibility of undiagnosed bipolar, would like a referral to an die reamer to test to see if she might be allergic to some types of foods, and to do a follow up for her ER visit on 04-17-24. This was due to stomach issues with the possibility of either a stomach bug or the flu. Review of Systems: Review of Systems Problem List: Patient Active Problem List Diagnosis Anxiety Asthma ([facility]) Gastroesophageal reflux disease without esophagitis Left wrist pain Multiple joint pain PTSD (post-traumatic stress disorder) ([facility]) depression (CMS/[facility]) Marijuana abuse Past Medical History: Past Medical History: Diagnosis Date Acid reflux ADHD (attention deficit hyperactivity disorder) ([facility]) 12/20/2023 Allergies Asthma ([facility]) Episodic tension type headache Fractured nose Family [...] for this visit: PTSD (post-traumatic stress disorder) (CMS/HCC) Patient advised to return if symptoms worsen [...] tablet, Rfl: 0 documented in this encounter [facility] 09-28-2023 Hospital Discharge instructions Additional Instructions Use albuterol inhaler 2 puffs every 4-6 hours if needed for wheezing or shortness of breath Zofran for nausea vomiting Push fluids Rest Good handwashing Steroids as directed Take antibiotics as instructed until gone Return here if you have any shortness of breath, chest pain, vomiting unable to keep anything down, or any other concerns [facility] Work Phone: 09-10-2023 Procedure note [facility] 07-11-2023 Evaluation note Encounter Date Diagnosis Assessment Notes Jul, Diarrhea (ICD-10 - R19.7) Jul, Weight loss (ICD-10 - R63.4) [facility] Other 09-25-2023 History and physical note Author Jordi Seals [facility] June 03, 2023 9:43am Note Date/Time June 03, 2023 9:43am [facility] [address] [place], [place] [id number] Gastroenterology H&P Signed Patient: Dawn Major MR#: [id number] : 2000 Acct:[id number] Age/Sex: 23 / F Adm Date: 3 Loc: Room: Type: [facility] Attending Dr: Jordi Seals MD Copies [...] By: <Electronically signed by Jordi Seals MD> 06/03/2343 [facility] Work Phone: 1(317) 547-478909-25-2023 [facility]* Encounter Date Diagnosis Assessment Notes Treatment Notes Treatment Clinical Notes Apr, Diarrhea (ICD-10 - R19.7) Patient was seen in the ER and was advise by ER to see water pollution specialist Patient will have labs done ordered today Apr, Unintentional weight loss (ICD-10 - R63.4) Patient is to have a colonoscopy that it will be scheduled today prep instructions given in office today Risks and benefits of procedure explained to patient; patient verbalizes understanding. [facility] Other 02-28-2023 Hospital Discharge instructions Follow Up Care 11/06/2022 13:26:54 With:Kayy Fontana MD, [facility], [facility] Address: [address] [place], [place] [address]- [phone] When: only if needed [facility] Evaluation + Plan [facility] Evaluation noteNo assessment information available [facility] Work Phone: Evaluation note* Diagnosis Viral URI with cough- Primary [facility] encounter [facility]* Diagnosis PTSD (post-traumatic stress disorder) ([facility]/HCC)- Primary Posttraumatic stress disorder Bipolar 1 disorder ([facility]) Allergic urticaria Marijuana abuse Nondependent cannabis abuse, unspecified Abdominal discomfort Abdominal pain, unspecified site Mild intermittent asthma, unspecified whether complicated ([facility]) documented in this encounter [facility]* [...] HealthcareHistory and physical note Author Jordi Seals [facility] September 10, 2023 9:00am Note Date/Time September 10, 2023 9: 00am [facility] [address] [place] [address] Gastroenterology H&P Signed Patient: Dawn Major MR#: [id number] : 2000 Acct:[id number] Age/Sex: 23 / F Adm Date: 4 Loc: Room: Type: [facility] Attending Dr: Jordi Seals MD Copies [...] signed by Jordi Seals MD> 09/10/23 0900 [facility] Work Phone: History general Narrative - Reported* Type Description Date Medical History hx of acid reflux Medical History lactose intolerance Surgical History FINGER SURGERY Hospitalization History 2.5 weeks old for milk a llMozaico Other Hospital course Narrative No data available for this section [facility] Hospital Discharge instructions Additional Instructions [...] high fever vomiting or any other concerns [facility] Work Phone: Hospital Discharge instructions Additional Instructions [...] NOT operate machinery such as power tools, Interactivon mowers, snow blowers, sewing machines, etc. for [...] 45 -Follow up with PCP. -Office number [phone]. [facility] Work Phone: Hospital Discharge instructions Additional Instructions [...] in the office as scheduled -Office number [phone]. [facility] Work Phone: Hospital Discharge instructions Additional Instructions Follow-up with mental health Return to ED if develop worsening symptoms or concernsR[facility] Work Phone: Hospital Discharge instructions Additional Instructions Will go to the OB floor for further evaluation and monitoring.[facility] Work Phone: Progress note No data available for this section [facility] Reason for referral (narrative) , [facility] GI please Referred by: Kayy Fontana MD [facility] Summary Purpose Family [...] DATE CREATED AUTHOR AUTHOR'S ORGANIZ ATION 11/15/2022 [facility] DATE CREATED AUTHOR AUTHOR'S ORGANIZ ATION 03/27/2025 [facility] DATE CREATED AUTHOR AUTHOR'S ORGANIZ ATION 05/15/2025 [facility] dical Specialists EPIC Care Teams (unrecognized sec tion and content) Medical Accounting Clerk Relationship Specialty Start Date End Date Diego Araya DO [address] [place] [address] PCP - General Family Medicine 04/09/23 Diego Araya DO [address] [place] [address] PCP - [facility] 06/09/24 Team Status: Active Member Role Status Dates Divina Araya DO Primary Care Provider Active Team Status: Inactive Member Role Status Dates GSofia Araya DO Primary Care Provider Active Vivian Nieto [facility] Emergency Provider Active Goals (unrecognized section and [...] BE BASED ON THE PRIMARY CLINICAL RECORDS. [employer] provides no warranty or guarantee of the accuracy or completeness of information in this document.
[2025-05-18 12:09] VITALS: BP 116/73; PULSE 85; TEMP 36.1
== END 2025-05-18 14:44 | disposition home or self-care (01) ==
LOC: FBC 11:38
PROVIDERS: Admitting Provider Obstetrics & Gynecology; PCP Family Medicine; Visit Provider Obstetrics & Gynecology
DX: O47.9 False labor, unspecified (principal); Z3A.00 Weeks of gestation of pregnancy not specified
CPT/HCPCS: 59025; G0378; G0379

== ENCOUNTER 2025-06-01 04:55 | Inpatient (IN) | payer OTHER, SELFPAY ==
--- OUTSIDE RECORDS SUMMARY | 2020-06-02 09:45 | XMS_ITS | Continuity of Care Document ---
Author Organization [facility] Address [address] [place] [address] Phone Care Team Providers Care Dimensional Inspector Name Role Phone Andres Edgar Unavailable Unavailable [...] Diagnoses Date Provider Providers Copied on Encounter [facility], [address] [place], [place], [id number], tel:[phone] [facility] No Information Edward Arciniega. [address] [place], [place], [id number], [place]. tel:[phone] [facility], [address] [place], [place], [id number], [place] tel:[phone] [facility] No Information Edward Arciniega. [address] [place], [place], [id number], [place]. tel:[phone] OFFICE/OUTPATI ENT VISIT, [facility], [address] [place], [place], [id number], [place] tel:[phone] [facility] No Information Edward Arciniega. [address] [place], [place], [id number], [place]. tel:[phone] OFFICE/OUTPATI ENT VISIT, [facility], [address] [place], [place], [id number], [place] tel:[phone] [facility] No Information Edward Arciniega. [address] [place], [place], [id number], [place]. tel:[phone] Family History Family Member Type Diagnosis Age [...] Record Payers Payer name Insurance type Covered alliance party ID Authoriza tion(s) Medicaid Wrap - [facility] [id number] Medicaid Wrap - [facility] [id number] Medicaid Wrap - [facility] [id number] Social History Type Description Quantity Date Captured [...]
--- OUTSIDE RECORDS SUMMARY | 2025-05-18 10:30 | XMS_ITS | Encounter Summary ---
Author Organization [facility] Address [address] [place] [address] Care Team Providers Care Adhesive Bandage Machine Operator Name Role Phone Diego Araya DO Primary Care Provider [phone] Diego Araya DO Unavailable [phone] Reason for Visit * Reason Comments Routine Visit Encounter Details Date Type Department Care Team (Late st Contact Info) Description 05/18/2025 10:30 AM EDT Routine [facility] [address] [facility] [place] [address] Demarco Orr DO [address] [facility] [address] [place], [facility]11 Third trimester ([facility]); 37 weeks gestation of ([facility]) Social History Tobacco Use Types Packs/Day Years [...] documented in this encounter Progress Notes * Catherine TalleyNEIL - 05/18/2025 10:30 AM EDT Reason for Appointment: Patient ID: [...] before breakfast, Do not crush or chew. Pgnpzbpf-Foe-Ay-FA ( 1 + IRON PO) 1 tablet, [...] depression 12/20/2023 Marijuana abuse 04/28/2024 Second trimester ([facility]) 02/22/2025 25 weeks gestation of ([facility]) 02/22/2025 Resolved Ambulatory Problems Diagnosis Date [...] nursing note reviewed. Exam conducted with a associate professor of surgery present. Vitals: Estimated body mass index is 24.51 kg/m?? as calculated from the following: Height as of 04/29/24: 5' 2 . Weight as of this encounter: 134 lb. BP: 110/68 Patient's last menstrual period was 08/31/2024. ASSESSMENT & PLAN ICD-10-CM 1. Third trimester ([facility]) Z34.93 POCT urinalysis dipstick manually resulted 2. 37 weeks gestation of ([facility]) Z3A.37 Return OB: Patient presents today for a routine obstetrics appointment. Patient is currently 37w1d . Patient states she is doing well but has complaints of being tired due to current . Patient has verbalizes frequent movement. labor precautions was discussed/given and patient was instructed to perform kick counts three times a day. Pt having contractions today being sentto FB for monitoring, Orders Placed This Encounter Procedures POCT urinalysis dipstick manually resulted Follow Up: Patient is to return to office in 1 week for routine OB appointment. Documented by Catherine Talley LPN on behalf of: Cira Chairez PA-C documented in this encounter Plan of Treatment Not on file documented as of this encounter Procedures Procedure Name Priority Date/Time Associated Diagnosis Comments POCT URINALYSIS DIPSTICK Routine 05/18/2025 10:50 AM EDT Third trimester ([facility]) documented in this encounter Results * POCT [...] Positive Urine 05/18/2025 10:5 0 AM EDT [facility] Kirby DO POINT OF CARE TEST ENTER/EDIT OR DERABLES Final Result documented in this encounter Visit Diagnoses Diagnosis Third trimester ([facility]) state, incidental 37 weeks gestation of ([facility]) documented in this encounter Care Teams Adhesive Bandage Machine Operator Relationship Specialty Start Date End Date Diego Araya DO [address] [place] [address] PCP - General Family Medicine 04/09/23 Diego Araya DO [address] [place] [address] PCP - [facility] 06/09/24 documented as of this encounter
[2025-06-01] VITALS (43 sets, daily range): BP systolic 102–139; BP diastolic 56–77; PULSE 60–102; TEMP 36.1–36.6
--- OUTSIDE RECORDS SUMMARY | 2025-06-01 04:59 | XMS_ITS | Encounter Summary ---
Author Organization [facility] Address [address] [place] [place] [address] Care Team Providers Care Lime Kiln Tender Name Role Phone Sherice Camarillo NP Unavailable [phone] Diego Araya DO Primary Care Provider Diego Araya DO Unavailable Martin Phipps Unavailable Diego Araya DO Unavailable [phone] Vicky Robles LPN Unavailable Unavailable Encounter Details Date Type Department Care Team (Late st Contact Info) Description 09/10/2023 Orders Only [facility] [address] [facility] [address] [place] [address] A, Unknown Practice [address] [phone] Social History Tobacco Use Types Packs/Day Years [...] as of this encounter Plan of Treatment Not on [...] on filedocumented in this encounter Care Teams Lime Kiln Tender Relationship Specialty Start Date End Date Sherice Camarillo, TRANSFER PUMPER [address] [place] [address] PCP - [facility] 03/09/23 Diego Araya DO [address] [place] [address] PCP - General Family Medicine 04/09/23 Diego Araya DO [address] [place] [address] PCP - [facility] 12/09/23 Martin Phipps PA [address] [place] [address] PCP - [facility] 03/09/24 Diego Araya DO [address] [place] [address] PCP - [facility] 06/09/24 Vicky Robles LPN Licensed Practical Nurse Family Medicine 10/01/2410/08 documented as of this encounter
--- OUTSIDE RECORDS SUMMARY | 2025-06-01 04:59 | XMS_ITS | Encounter Summary ---
Author Organization [facility] Address [address] [place] [address] Care Team Providers Care Lighting Engineering Technician Name Role Phone Diego Araya DO Primary Care Provider [phone] Diego Araya DO Unavailable [phone] Encounter Details Date Type Department Care Team (Late st Contact Info) Description 12/10/2024 Abstract [facility] [address] [place] [phone] Demarco Orr DO [address] [facility] [address] [place], [place] [address] Social History Tobacco Use Types Packs/Day Years [...] on file documented as of this encounter Visit Diagnoses Not on filedocumented in this encounter Care Teams Lighting Engineering Technician Relationship Specialty Start Date End Date Diego Araya DO [address] [place], [place] [id number] PCP - General Family Medicine 04/09/23 Diego Araya DO [address] [facility] 230 [place] [address] PCP - [facility] 06/09/24 documented as of this encounter
--- OUTSIDE RECORDS SUMMARY | 2025-06-01 04:59 | XMS_ITS | Encounter Summary ---
Author Organization [facility] Address [address] [place] [address] Care Team Providers Care Machinist/Machine Builder Name Role Phone Diego Araya DO Primary Care Provider [phone] Diego Araya DO Unavailable [phone] Encounter Details Date Type Department Care Team (Late st Contact Info) Description 01/27/2025 Abstract [facility] [address] [place] [place] [phone] Demarco Orr DO [address] [facility] [address] [place], [place] [id number] Social History Tobacco Use Types Packs/Day Years [...] on filedocumented in this encounter Care Teams Machinist/Machine Builder Relationship Specialty Start Date End Date Diego Araya DO [address] [place], [place] [address] PCP - General Family Medicine 04/09/23 Diego Araya DO [address] [facility] 230 [place] [address] PCP - [facility] 06/09/24 documented as of this encounter
--- OUTSIDE RECORDS SUMMARY | 2025-06-01 04:59 | XMS_ITS | Encounter Summary ---
Author Organization [facility] Address [address] [facility] [place] [address] Care Team Providers Care Butcher Meat Name Role Phone Sherice Camarillo NP Unavailable [phone] Diego Araya DO Primary Care Provider [phone] Diego Araya DO Unavailable Martin Phipps Unavailable Diego Araya DO Unavailable Vicky Robles LPN Unavailable Unavailable Encounter Details Date Type Department Care Team (Late st Contact Info) Description 08/21/2023 Abstract [facility] [address] [place] [address] Diego Araya DO [address] [place] [address] Social History Tobacco Use Types Packs/Day [...] on filedocumented in this encounter Care Teams Butcher Meat Relationship Specialty Start Date End Date Sherice Camarillo NP [address] [place] [address] PCP - [facility] 03/09/23 Diego Araya DO [address] [place] [address] PCP - General Family Medicine 04/09/23 Diego Araya DO [address] [place] [address] PCP - [facility] 12/09/23 Martin Phipps PA [address] [place] [address] PCP - [facility] 03/09/24 Diego Araya DO [address] [place] [address] PCP - [facility] 06/09/24 Vicky Robles LPN Licensed Practical Nurse Family Medicine 10/01/2410/08 documented as of this encounter
--- OUTSIDE RECORDS SUMMARY | 2025-06-01 04:59 | XMS_ITS | Encounter Summary ---
Author Organization [facility] Address [address] [place] [address] Care Team Providers Care Gps Navigation Installer Name Role Phone Diego Araya DO Primary Care Provider [phone] Diego Araya DO Unavailable [phone] Encounter Details Date Type Department Care Team (Late st Contact Info) Description 11/05/2024 Abstract [facility] [address] [facility] [place] [phone] Demarco Orr DO [address] [facility] [address] [place], [place] [address] Social History Tobacco Use Types Packs/Day Years [...] on filedocumented in this encounter Care Teams Gps Navigation Installer Relationship Specialty Start Date End Date Diego Araya DO [address] [place], [place] [phone] PCP - General Family Medicine 04/09/23 Diego Araya DO [address] [facility] 230 [place] [address] PCP - [facility] 06/09/24 documented as of this encounter
--- OUTSIDE RECORDS SUMMARY | 2025-06-01 04:59 | XMS_ITS | Encounter Summary ---
Author Organization [facility] Address [address] [facility] [address] Care Team Providers Care Boilermaker Pipe Fitter Name Role Phone Diego Araya DO Primary Care Provider [phone] Diego Araya DO Unavailable [phone] Encounter Details Date Type Department Care Team (Late st Contact Info) Description 01/27/2025 Abstract [facility] [address] [facility] 230 [place] [address] Diego Araya DO [address] [facility] 230 [place] [address] Social History Tobacco Use Types Packs/Day Years [...] on filedocumented in this encounter Care Teams Boilermaker Pipe Fitter Relationship Specialty Start Date End Date Diego Araya DO [address] [facility] 230 [place] [address] PCP - General Family Medicine 04/09/23 Diego Araya DO [address] [address] PCP - [facility] 06/09/24 documented as of this encounter
--- OUTSIDE RECORDS SUMMARY | 2025-06-01 04:59 | XMS_ITS | Patient Health Record ---
Author Organization [facility] XMLAW[facility] es Address [address] [place] [address] Care Team Providers Care Opthalmic Tech Name Role Phone Toy Tee Primary Care Provider Reason For Referral No Information Plan Of Treatment No Information Insurance Providers Payer Name Payer Address Payer Phone Subscriber Number Group Number Insured Name Patient Relationship to Insured Coverage Start Date Coverage End Date [facility] [employer] [address] [address] [place] [address] [id number] KATHY MAJOR Self - patient is the insured 3 Dental W[employer] [facility] [address] [place] [phone] [id number] KATHY MAJOR Self - patient is the insured 3
--- OUTSIDE RECORDS SUMMARY | 2025-06-01 04:59 | XMS_ITS | Encounter Summary ---
Author Organization [facility] Address [address] [place] [place] [address] Care Team Providers Care Hardening Machine Operator Name Role Phone Diego Araya DO Primary Care Provider [phone] Diego Araya DO Unavailable [phone] Encounter Details Date Type Department Care Team (Late st Contact Info) Description 11/05/[address]24 [address] [facility] [address] [facility] [place] [phone] Demarco Orr DO [address] [facility] [address] [place], [place] [address] Social History Tobacco Use Types Packs/Day Years [...] on filedocumented in this encounter Care Teams Hardening Machine Operator Relationship Specialty Start Date End Date Diego Araya DO [address] [place], [place] [address] PCP - General Family Medicine 04/09/23 Diego Araya DO [address] [facility] 230 [place] [address] PCP - [facility] 06/09/24 documented as of this encounter
--- OUTSIDE RECORDS SUMMARY | 2025-06-01 04:59 | XMS_ITS | Encounter Summary ---
Author Organization [facility] Address [address] [place] [address] Care Team Providers Care Lumber Grader Name Role Phone Sherice Camarillo NP Unavailable [phone] Diego Araya DO Primary Care Provider Diego Araya DO Unavailable [phone] Martin Phipps Unavailable Diego Araya DO Unavailable [phone] Vicky Robles LPN Unavailable Unavailable Encounter Details Date Type Department Care Team (Late st Contact Info) Description 03/14/2023 Abstract [facility] [address] [facility] [place] [address] Demarco Orr DO [address] [facility] [address] [place], [place] [address] Social History Tobacco Use Types Packs/Day Years [...] on filedocumented in this encounter Care Teams Lumber Grader Relationship Specialty Start Date End Date Sherice Camarillo NP [address] [facility] [address] [place] [address] PCP - [facility] 03/09/23 Diego Araya DO [address] [place] [address] PCP - General Family Medicine 04/09/23 Diego Araya DO [address] [place] [address] PCP - [facility] 12/09/23 Martin Phipps PA [address] [place] [address] PCP - [facility] 03/09/24 Diego Araya DO [address] [place] [address] PCP - [facility] 06/09/24 Vicky Robles LPN Licensed Practical Nurse Family Medicine 10/01/2410/08 documented as of this encounter
--- OUTSIDE RECORDS SUMMARY | 2025-06-01 04:59 | XMS_ITS | Encounter Summary ---
Author Organization [facility] Address [address] [place] [address] Care Team Providers Care Shredding Machine Tender Name Role Phone Sherice Camarillo NP Unavailable [phone] Diego Araya DO Primary Care Provider Diego Araya DO Unavailable [phone] Martin Phipps Unavailable Diego Araya DO Unavailable [phone] Vicky Robles LPN Unavailable Unavailable Encounter Details Date Type Department Care Team (Late st Contact Info) Description 06/03/2023 Orders Only [facility] [address] [facility] [address] [place] [phone] A, Unknown Practice [address] [phone] Social History Tobacco Use Types Packs/Day Years [...] on filedocumented in this encounter Care Teams Shredding Machine Tender Relationship Specialty Start Date End Date Sherice Camarillo, DIRECTOR TALENT MANAGEMENT [address] [place] [address] PCP - [facility] 03/09/23 Diego Araya, [address] [place] [address] PCP - General Family Medicine 04/09/23 Diego Araya DO [address] [place] [address] PCP - [facility] 12/09/23 Martin Phipps PA [address] [place] [address] PCP - [facility] 03/09/24 Diego Araya DO [address] [place] [address] PCP - [facility] 06/09/24 Vicky Robles LPN Licensed Practical Nurse Family Medicine 10/01/2410/08 documented as of this encounter
--- OUTSIDE RECORDS SUMMARY | 2025-06-01 04:59 | XMS_ITS | Encounter Summary ---
Author Organization [facility] Address [address] [place] [address] Care Team Providers Care Aerial Gunner Name Role Phone Diego Araya DO Primary Care Provider [phone] Diego Araya DO Unavailable [phone] Encounter Details Date Type Department Care Team (Late st Contact Info) Description 03/17/2025 Abstract [facility] [address] [place] [address] [place] [address] Darren Koehlerserracynthia [place] Social History Tobacco Use Types Packs/Day Years [...] on filedocumented in this encounter Care Teams Aerial Gunner Relationship Specialty Start Date End Date Diego Araya DO [address] [place] [address] PCP - General Family Medicine 04/09/23 Diego Araya DO [address] [place] [address] [facility] 06/09/24 documented as of this encounter
--- OUTSIDE RECORDS SUMMARY | 2025-06-01 04:59 | XMS_ITS | Encounter Summary ---
Author Organization [facility] Address [address] [place] [address] Care Team Providers Care Billing Typist Name Role Phone Diego Araya DO Primary Care Provider [phone] Diego Araya DO Unavailable [phone] Encounter Details Date Type Department Care Team (Late st Contact Info) Description 05/13/2025 Clinisync Result Encounter [facility] External Department Unsolicited Provider, Generic External Data Social History Tobacco Use Types Packs/Day Years [...] Procedure Name Priority Date/Time Associated Diagnosis Comments CLINDAMYCIN Routine 05/13/2025 10:21 AM EDT ORGANISM IDENTIFICATION Routine 05/13/20 10:21 AM EDT STREP GP B CULTURE+RFLX Routine 05/13/20 10:21 AM EDT documented in this encounter Results * CLINDAMYCIN (05/13/2025 10:21 AM EDT) CLINDAMYCIN Clindamycin RESISTANT [facility] CLINDAMYCIN [facility] CLINDAMYCIN Testing for inducible clindamycin resistance was performed [facility] CLINDAMYCIN using [facility] CLINDAMYCIN erythromycin and clindamycin in the D-zone test. Per the [facility] CLINDAMYCIN Centers for [facility] CLINDAMYCIN Disease Control and Prevention (CDC), erythromycin is no TB CLINDAMYCIN longer an [facility] CLINDAMYCIN acceptable alternative for intrapartum group B Streptococcus TB CLINDAMYCIN (GBS) [facility] CLINDAMYCIN prophylaxis for penicillin-allerg ic women at high risk for TBH CLINDAMYCIN anaphylaxis. TB 05/13/2025 10:2 1 AM EDT 05/13/2025 2:42 PM EDT Narrative CLINISYDE - 05/28/2025 10:19 AM EDT Generic External Data Provider LAB BLOOD ORDERAB LES Final Result [facility] * ORGANISM IDENTIFICATION (05/13/2025 10:21 AM EDT) ORGANISM IDENTIFICATION Organism Identification Beta hemolytic Strep group B [facility] ORGANISM IDENTIFICATION O:BETAGB Isolated [facility] 05/13/2025 10:2 1 AM EDT 05/13/2025 2:42 PM EDT Narrative CLINISYDE - 05/28/2025 10:19 AM EDT Generic External Data Provider LAB BLOOD ORDERAB LES Final Result CLINISYNC [facility] * STREP GP B CULTURE+RFLX (05/13/2025 10:21 AM EDT) STREP GP B CULTURE+RFLX Strep Gp B Culture+Rflx TBH STREP GP B CULTURE+RFLX *ABNORMAL* TBH STREP GP B CULTURE+RFLX Positive TBH STREP GP B CULTURE+RFLX Centers for Disease Control and Prevention (CDC) and TB STREP GP B CULTURE+RFLX [place] [employer] TB STREP GP B CULTURE+RFLX (ACOG) guidelines for prevention of group B TBH STREP GP B CULTURE+RFLX streptococcal (GBS) disease specify co-collection of TBH STREP GP B CULTURE+RFLX a vaginal and rectal swab specimen to maximize TBH STREP GP B CULTURE+RFLX sensitivity of GBS detection. Per the CDC and ACOG, TBH STREP GP B CULTURE+RFLX swabbing both the lower vagina and rectum TBH STREP GP B CULTURE+RFLX substantially increases the yield of detection TBH STREP GP B CULTURE+RFLX compared with sampling the vagina alone. TBH STREP GP B CULTURE+RFLX Penicillin G, ampicillin, or cefazolin are indicated TBH STREP GP B CULTURE+RFLX for intrapartum prophylaxis of GBS TBH STREP GP B CULTURE+RFLX colonization. Reflex susceptibility testing should be TBH STREP GP B CULTURE+RFLX performed prior to use of clindamycin only on GBS TBH STREP GP B CULTURE+RFLX isolates from penicillin-allergi c women who are TBH STREP GP B CULTURE+RFLX considered a high risk for anaphylaxis. Treatment with TBH STREP GP B CULTURE+RFLX vancomycin without additional testing is warranted if TBH STREP GP B CULTURE+RFLX resistance to clindamycin is noted. TBH 05/13/2025 10:2 1 AM EDT 05/13/2025 2:42 PM EDT Narrative CLINISYNC - 05/28/2025 10:19 AM EDT us Generic External Data Provider LAB BLOOD ORDERAB LES Final Result Performing Organization Address City/State/[facility] Co de Phone Number [facility] documented in this encounter Visit Diagnoses Not on filedocumented in this encounter Care Teams Billing Typist Relationship Specialty Start Date End Date Diego Araya DO [address] [place] [address] PCP - General Family Medicine 04/09/23 Diego Araya DO [address] [place] [address] PCP - [facility] 06/09/24 documented as of this encounter
--- OUTSIDE RECORDS SUMMARY | 2025-06-01 04:59 | XMS_ITS | Encounter Summary ---
Author Organization [facility] Address [address] [place] [address] Care Team Providers Care Resource Room Special Education Teacher Name Role Phone Diego Araya DO Primary Care Provider [phone] Diego Araya DO Unavailable [phone] Encounter Details Date Type Department Care Team (Late st Contact Info) Description 12/04/2024 Abstract [facility] [address] [place] [id number] Demarco Orr DO [address] [place], [place] [id number] Social History Tobacco Use Types Packs/Day Years [...] on filedocumented in this encounter Care Teams Resource Room Special Education Teacher Relationship Specialty Start Date End Date Diego Araya DO [address] [place], [place] [id number] PCP - General Family Medicine 04/09/23 Diego Araya DO [address] [facility] [address] [place] [address] PCP - [facility] 06/09/24 documented as of this encounter
--- OUTSIDE RECORDS SUMMARY | 2025-06-01 04:59 | XMS_ITS | Clinical Summary ---
Author Organization [facility] Address [address] [place] [address] Care Team Providers Care Director Of Informatics Name Role Phone Diego Araya DO Primary Care Provider [phone] Diego Araya DO Unavailable [phone] Allergies Active Allergy Reactions Criticality Noted Date Comments Amoxicillin Unknown 04/09/2023 Other Reaction(s): Unknown Reaction Milk (Cow) Unknown 04/17/2024 Other Reaction(s): Unknown Reaction Tilactase Diarrhea High 05/31/2020 Medications albuterol HFA 90 mcg/act inhalerIndicatio ns:Mild intermittent asthma, unspecified whether complicated (HCC) Inhale 2 puffs every 4 (four) hours if needed for wheezing or shortness of breath 18 g 3 12/20/19 24 Active Dyeuxsfg-Zue-An- FA ( 1 + IRON PO) Take 1 tablet by mouth Daily Active fluticasone (Flonase) 50 MCG/ACT nasal spray Administer 2 sprays into each nostril Daily 02/25/20 25 Active omeprazole (PriLOSEC) [address] capsuleIndicatio ns:Gastroesophag eal Reflux Disease,Heartbur n Take 1 capsule (20 mg) by mouth in the morning. Take before meals. Do not crush or chew. 30 capsule 3 03/29/20 25 Active metroNIDAZOLE (Flagyl) 500 MG tabletIndication s:BV (bacterial vaginosis) Take 1 tablet (500 mg) by mouth in the morning and 1 tablet (500 mg) before bedtime. Do all this for 7 days. Do not drink alcohol while taking this medication. 14 tablet 05/14/20 25 025 Discontinu ed(Therapy completed) metroNIDAZOLE (Flagyl) 500 MG tabletIndication s:BV (bacterial vaginosis) Take 1 tablet (500 mg) by mouth in the morning and 1 tablet (500 mg) before bedtime. Do all this for 7 days. Do not drink alcohol while taking this medication. 14 tablet 05/20/20 25 025 Active Problems Problem Noted Date Diagnosed Date Second trimester ([facility]) 02/22/2025 25 weeks gestation of ([facility]) 2024 Marijuana abuse 04/28/2024 PTSD (post-traumatic [...] Encounters Date Type Department Care Team Description 05/31/2025 Telephone [facility] [address] [place] [address] Jennifer Batista LPN 05/20/2025 Telephone [facility] [address] [place] [address] Vivian Galeana, NEIL 05/18/2025 10:30 AM EDT Routine [facility] [address] [place] [address] Demarco Orr DO Third trimester ([facility]); 37 weeks gestation of ([facility]) 05/18/2025 Bamboo flowsheet [facility] BURCIAGAN [address] [place] [address] Demarco Orr DO 05/14/2025 Abstract [facility] CUADRAGYN [address] [place] [address] Eileen Koehler MA 05/14/2025 Telephone [facility] CUADRAGYN [address] [place] [address] Eileen Koehler MA 05/13/2025 9:30 AM EDT Routine [facility] [address] [place] [address] Demarco Orr, 36 weeks gestation of ([facility]); Third trimester ([facility]); Gastroesophageal reflux in ([facility]); Exposure to STD; Vaginal discharge 05/13/2025 Clinisync Result Encounter NOMS External Department Unsolicited Provider, Generic External Data 05/13/2025 External Result Encounter NOMS External Department Unsolicited Demarco Orr DO 05/13/2025 Bamboo flowsheet [facility] [address] [facility] [place] [address] Demarco Orr DO 05/03/2025 2:50 PM EDT Office Visit [place] [address] Cira Chairez PA Third trimester ([facility]); 35 weeks gestation of ([facility]) 05/03/2025 Bamboo flowsheet [facility] [address] [facility] [place] [address] Cira Chairez PA 04/22/2025 11:00 AM EDT Routine [facility] [place] [place] [address] Demarco Orr, Third trimester ([facility]); 33 weeks gestation of ([facility]) 04/22/2025 10:30 AM EDT Ancillary Procedure [facility] [place] [place] [id number] Size of fetus inconsistent with dates in first trimester ([facility]) 03/29/2025 3:50 PM EDT Routine [facility] [address] [facility] [place] [place] [address] Cira Chairez PA Size of fetus inconsistent with dates in first trimester ([facility]) (Primary Dx); Third trimester ([facility]); 30 weeks gestation of ([facility]); Gastroesophageal reflux in ([facility]) 03/29/2025 Clinisync Result Encounter NOMS External Department Unsolicited Provider, Generic External Data 03/29/2025 Bamboo flowsheet [facility] [address] [facility] [place] [address] Cira Chairez PA 03/17/2025 Abstract [facility] [address] [place] [address] [place] [address] Eileen Koehler MA 03/01/2025 Patient Outreach [facility] [address] [place] [id number] Cira Figueroa LPN from Last 3 Months [...] 04/29/2024 3:45 PM EDT Plan of Treatment Health Maintenance Due Date Last Done Comments Influenza Vaccine (#1) 2025 06/02/2015 Procedures Procedure Name Priority Date/Time Associated Diagnosis Comments POCT URINALYSIS DIPSTICK Routine 05/18/2025 10:50 AM EDT Third trimester ([facility]) RECURRENT VAGINITIS (HTRX) Routine 05/13/2025 11:42 AM EDT POCT URINALYSIS DIPSTICK Routine 05/13/2025 10:22 AM EDT 36 weeks gestation of ([facility]) Third trimester ([facility]) CLINDAMYCIN Routine 05/13/2025 10:21 AM EDT ORGANISM IDENTIFICATION Routine 05/13/2025 10:21 AM EDT STREP GP B CULTURE+RFLX Routine 05/13/2025 10:21 AM EDT CULTURE, GROUP B STREP WITH SUSCEPTIBLITY Routine 05/13/2025 10:14 AM EDT Third trimester ([facility]) POCT URINALYSIS DIPSTICK Routine 05/03/2025 3:52 PM EDT Third trimester ([facility]) 35 weeks gestation of ([facility]) POCT URINALYSIS DIPSTICK Routine 04/22/2025 11:03 AM EDT Third trimester ([facility]) US OB FOLLOW UP TRANSABDOMINAL APPROACH Routine 04/22/2025 10:46 AM EDT Size of fetus inconsistent with dates in first trimester ([facility]) MLR HEMOGLOBIN A1C Routine 03/29/2025 4: 39 PM EDT ALL CBC WITH AUTO DIFF Routine 4:39 PM EDT POCT URINALYSIS DIPSTICK Routine 03/29/2025 3:59 PM EDT Third trimester ([facility]) from Last 3 Months Results * POCT urinalysis dipstick manually resulted (05/18/2025 10:50 AM EDT) Only the most recent of5 [...] Urine 05/18/2025 10:5 0 AM EDT Demarco Blackmano DO POINT OF CARE TEST ENTER/EDIT OR DERABLES Final Result * (ABNORMAL) RECURRENT VAGINITIS (HTRX) (05/13/2025 11:42 AM EDT) [facility] ATOPOBIUM VAGINAE 24.999(A) 19.961 - 24.689 ppm 05/14/2025 6:40 AM EDT [facility] ATOPOBIUM VAGINAE Detected(A) 19.961 - 24.689 ppm 05/14/2025 6:40 AM EDT [facility] BVAB 2,3 (BACTERIAL VAGINOSIS ASSOCIATED BACTERIA 2, 3); MOBILUNCUS SPP 0 19.961 - 24.689 ppm 05/14/2025 6:40 AM EDT [facility] BVAB 2,3 (BACTERIAL VAGINOSIS ASSOCIATED BACTERIA 2, 3); MOBILUNCUS SPP Not Detected 19.961 - 24.689 ppm 05/14/2025 6:40 AM EDT [facility] MARILYNN ALBICANS, PARAPSILOSIS, TROPICALIS 0 23.000 - 30.347 ppm 05/14/2025 6:40 AM EDT [facility] MARILYNN ALBICANS, PARAPSILOSIS, TROPICALIS Not Detected 23.000 - 30.347 ppm 05/14/2025 6:40 AM EDT [facility] MARILYNN GLABRATA 0 23.000 - 31.618 ppm 05/14/2025 6:40 AM EDT [facility] MARILYNN GLABRATA Not Detected 23.000 - 31.618 ppm 05/14/2025 6:40 AM EDT [facility] MARILYNN KRUSEI 0 23.000 - 30.873 ppm 05/14/2025 6:40 AM EDT [facility] MARILYNN KRUSEI Not Detected 23.000 - 30.873 ppm 05/14/2025 6:40 AM EDT [facility] CHLAMYDIA TRACHOMATIS 0 23.000 - 31.586 ppm 05/14/2025 6:40 AM EDT [facility] CHLAMYDIA TRACHOMATIS Not Detected 23.000 - 31.586 ppm 05/14/2025 6:40 AM EDT [facility] GARDNERELLA VAGINALIS 26.902(A) 19.961 - 24.689 ppm 05/14/2025 6:40 AM EDT [facility] GARDNERELLA VAGINALIS Detected(A) 19.961 - 24.689 ppm 05/14/2025 6:40 AM EDT [facility] MEGASPHAERA (TYPES 1, 2) 0 19.961 - 24.689 ppm 05/14/2025 6:40 AM EDT [facility] MEGASPHAERA (TYPES 1, 2) Not Detected 19.961 - 24.689 ppm 05/14/2025 6:40 AM EDT [facility] NEISSERIA GONORRHOEAE 0 23.000 - 32.587 ppm 05/14/2025 6:40 AM EDT [facility] NEISSERIA GONORRHOEAE Not Detected 23.000 - 32.587 ppm 05/14/2025 6:40 AM EDT [facility] TRICHOMONAS VAGINALIS 0 23.000 - 31.995 ppm 05/14/2025 6:40 AM EDT [facility] TRICHOMONAS VAGINALIS Not Detected 23.000 - 31.995 ppm 05/14/2025 6:40 AM EDT [facility] MYCOPLASMA GENITALIUM 0 19.961 - 24.689 ppm 05/14/2025 6:40 AM EDT [facility] MYCOPLASMA GENITALIUM Not Detected 19.961 - 24.689 ppm 05/14/2025 6:40 AM EDT [facility] Tissue 05/13/2025 11:4 2 AM EDT 05/14/2025 1:52 AM EDT us Demarco Orr DO LAB BLOOD ORDERABLES Final Resul t [facility] [address] [address] * CLINDAMYCIN (05/13/2025 10:21 AM EDT) CLINDAMYCIN Clindamycin RESISTANT [facility] CLINDAMYCIN [facility] CLINDAMYCIN Testing for inducible clindamycin resistance was performed [facility] CLINDAMYCIN using [facility] CLINDAMYCIN erythromycin and clindamycin in the D-zone test. Per the [facility] CLINDAMYCIN Centers for [facility] CLINDAMYCIN Disease Control and Prevention (CDC), erythromycin is no TB CLINDAMYCIN longer an [facility] CLINDAMYCIN acceptable alternative for intrapartum group B Streptococcus TBH CLINDAMYCIN (GBS) TB CLINDAMYCIN prophylaxis for penicillin-allerg ic women at high risk for TBH CLINDAMYCIN anaphylaxis. TB 05/13/2025 10:2 1 AM EDT 05/13/2025 2:42 PM EDT Narrative CLINISYNC - 05/28/2025 10:19 AM EDT us Generic External Data Provider LAB BLOOD ORDERAB LES Final Result CLINISYNC TB * ORGANISM IDENTIFICATION (05/13/2025 10:21 AM EDT) ORGANISM IDENTIFICATION Organism Identification Beta hemolytic Strep group B TB ORGANISM IDENTIFICATION O:BETAGB Isolated TB 05/13/2025 10:2 1 AM EDT 05/13/2025 2:42 PM EDT Narrative CLINISYNC - 05/28/2025 10:19 AM EDT us Generic External Data Provider LAB BLOOD ORDERAB LES Final Result MIN TBH * STREP GP B CULTURE+RFLX (05/13/2025 10:21 AM EDT) [facility] STREP GP B CULTURE+RFLX Strep Gp B Culture+Rflx TBH STREP GP B CULTURE+RFLX *ABNORMAL* TBH STREP GP B CULTURE+RFLX Positive TBH STREP GP B CULTURE+RFLX Centers for Disease Control and Prevention (CDC) and TBH STREP GP B CULTURE+RFLX [place] [employer] TBH STREP GP B CULTURE+RFLX (ACOG) guidelines for [...] AM EDT 05/13/2025 2:42 PM EDT Narrative MIN - 05/28/2025 10:19 AM EDT us Generic External Data Provider LAB BLOOD ORDERAB LES Final Result MIN [facility] * CULTURE, GROUP B STREP WITH SUSCEPTIBLITY (05/13/2025 10:14 AM EDT) Swab 05/13/2025 10:1 4 AM EDT us Demarco Orr DO LAB BLOOD ORDERABLES Final Resul t EXTERNAL LAB * US OB follow up transabdominal approach [...] - 03/29/2025 5:03 PM EDT us Cira BROWN CLINISYNC Final Result [facility] * (ABNORMAL) ALL CBC WITH AUTO DIFF (03/29/2025 4:39 PM EDT) TB WBC 11.7(H) 4.0 - 11.0 10 [...] EDT Cira BROWN CLINISYNC Final Result CLINISYNC TB from Last 3 Months Insurance [employer] Care Teams Director Of Informatics Relationship Specialty Start Date End Date Diego Araya DO [address] [place] [address] PCP - General Family Medicine 04/09/23 Diego Araya DO [address] [place] [address] PCP - [facility] 06/09/24
--- OUTSIDE RECORDS SUMMARY | 2025-06-01 04:59 | XMS_ITS | Encounter Summary ---
Author Organization [facility] Address [address] [place] [address] Care Team Providers Care Cargo Service Supervisor Name Role Phone Sherice Camarillo NP Unavailable Diego Araya DO Primary Care Provider Diego Araya DO Unavailable [phone] Martin Phipps Unavailable Diego Araya DO Unavailable Vicky Robles LPN Unavailable Unavailable Encounter Details Date Type Department Care Team (Late st Contact Info) Description 03/06/2023 Abstract [facility] [address] [place] [address] Demarco Orr DO [address] [place], [place] [id number] Social History Tobacco Use Types Packs/Day Years [...] on filedocumented in this encounter Care Teams Cargo Service Supervisor Relationship Specialty Start Date End Date Sherice Camarillo NP [address] [facility] [address] [place] [address] PCP - [facility] 03/09/23 Diego Araya DO [address] [place] [address] PCP - General Family Medicine 04/09/23 Diego Araya DO [address] [place] [address] PCP - [facility] 12/09/23 Martin Phipps PA [address] [place] [address] PCP - [facility] 03/09/24 Diego Araya DO [address] [place] [address] PCP - [facility] 06/09/24 Vicky Robles LPN Licensed Practical Nurse Family Medicine 10/01/2410/08 documented as of this encounter
--- OUTSIDE RECORDS SUMMARY | 2025-06-01 04:59 | XMS_ITS | Encounter Summary ---
Author Organization [facility] Address [address] [place] [address] Care Team Providers Care Office Technology Instructor Name Role Phone Diego Araya DO Primary Care Provider [phone] Diego Araya DO Unavailable [phone] Encounter Details Date Type Department Care Team (Late st Contact Info) Description 05/20/2025 Telephone [facility] [address] [place] [phone] Vivian Galeana LPN [address] [place] [id number] Social History Tobacco Use Types Packs/Day Years [...] encounter Miscellaneous Notes * Telephone Encounter - Vivian Galeana LPN - 05/20/2025 3:02 PM EDT Pt called stating that she was suppose to get an antibiotic sent in for her but her pharmacy never got it. I left pt a detailed voiceaail. RX sent in documented in this encounter Plan of Treatment Not on file documented as of this encounter Visit Diagnoses Diagnosis BV (bacterial vaginosis) Unspecified vaginitis and vulvovaginitis documented in this encounter Care Teams Office Technology Instructor Relationship Specialty Start Date End Date Diego Araya DO [address] [facility] [address] [place] [address] PCP - General [facility] Medicine 04/09/23 Diego Araya DO [address] [facility] [address] [place] [address] PCP - [facility] 06/09/24 documented as of this encounter
--- OUTSIDE RECORDS SUMMARY | 2025-06-01 04:59 | XMS_ITS | Encounter Summary ---
Author Organization [facility] Address [address] [place] [address] Care Team Providers Care Pulmonary Disease Specialist Name Role Phone Diego Araya DO Primary Care Provider [phone] Diego Araya DO Unavailable [phone] Encounter Details Date Type Department Care Team (Late st Contact Info) Description 05/18/2025 Bamboo flowsheet [facility] [address] [facility] [place] [address] Demarco Orr DO [address] [facility] [address] [place] [id number] Social History Tobacco Use Types Packs/Day Years [...] on filedocumented in this encounter Care Teams Pulmonary Disease Specialist Relationship Specialty Start Date End Date Diego Araya DO [address] [place], [place] [id number] PCP - General Family Medicine 04/09/23 Diego Araya DO [address] [place] [address] [facility] 06/09/24 documented as of this encounter
--- OUTSIDE RECORDS SUMMARY | 2025-06-01 04:59 | XMS_ITS | Encounter Summary ---
Author Organization [facility] Address [address] [place] [address] Care Team Providers Care Plant Reliability Engineer Name Role Phone Diego Araya DO Primary Care Provider [phone] Diego Araya DO Unavailable [phone] Encounter Details Date Type Department Care Team (Late st Contact Info) Description 02/09/2025 Orders Only [facility] Jerry OBGYJorge L [address] [employer] [address] [place] [address] Cee Everett LPN [address] [facility] [address] [place] [id number] Social History Tobacco Use Types Packs/Day Years [...] AM EDT) Swab Cervical swab / Unknown us [facility] Nurse [facility] Ob LAB CYTOLOGY ORDERABLES Final Result EXTERNAL LAB documented in this encounter Visit Diagnoses Not on filedocumented in this encounter Care Teams Plant Reliability Engineer Relationship Specialty Start Date End Date Diego Araya DO [address] [place] [address] PCP - General Family Medicine 04/09/23 Diego Araya DO [address] [place] [address] PCP - [facility] 06/09/24 documented as of this encounter
--- OUTSIDE RECORDS SUMMARY | 2025-06-01 04:59 | XMS_ITS | Encounter Summary ---
Author Organization [facility] Address [address] [facility] [place] [address] Care Team Providers Care Forest Supervisor Name Role Phone Diego Araya DO Primary Care Provider [phone] Diego Araya DO Unavailable [phone] Encounter Details Date Type Department Care Team (Late st Contact Info) Description 02/24/2025 Abstract [facility] [address] [facility] [address] [place] [id number] Diego Araya DO [address] [facility] [address] [place] [address] Social History Tobacco Use Types Packs/Day Years [...] filedocumented in this encounter Care Teams Forest Supervisor Relationship Specialty Start Date End Date Diego Araya DO [address] [facility] [address] [place] [address] PCP - General Family Medicine 04/09/23 Diego Araya DO [address] [address] PCP - [facility] 06/09/24 documented as of this encounter
--- OUTSIDE RECORDS SUMMARY | 2025-06-01 04:59 | XMS_ITS | Encounter Summary ---
Author Organization [facility] Address [address] [place] [address] Care Team Providers Care Cd Mixer Name Role Phone Diego Araya DO Primary Care Provider [phone] Diego Araya DO Unavailable Encounter Details Date Type Department Care Team (Late st Contact Info) Description 05/14/2025 Abstract [facility] [address] [place] [address] [place] [address] Darren Koeh[place]erracynthia [place] Social History Tobacco Use Types Packs/Day Years [...] on filedocumented in this encounter Care Teams Cd Mixer Relationship Specialty Start Date End Date Diego Araya DO [address] [place] [address] PCP - General Family Medicine 04/09/23 Diego Araya DO [address] [place] [address] [facility] 06/09/24 documented as of this encounter
--- OUTSIDE RECORDS SUMMARY | 2025-06-01 04:59 | XMS_ITS | CCD ---
Author Organization [facility] Care Team Providers Care Transportation Consultant Name Role Phone KIRBY, DR REA Consulting [...] Unavailable DO Divina Araya [facility] Vivian Ayala Emergency Provider Bozena Imad Unavailable DO Divina Araya Primary Care Provider MD Jordi Seals Attending Provider DO Divina Araya Primary Care Provider MD Jordi Seals Attending Provider DO Divina Araya Primary Care Provider [phone] MD Jordi Seals Attending Provider VANESSA Roberson Emergency Provider DO Sedrick Wells Emergency Provider DO Divina Araya Primary Care Provider MIGUEL Phipps Emergency Provider DO Paramjit Yanes Emergency Provider Diego Araya DO Primary Care Provider Diego Araya DO Unavailable [phone] Martin Paige Unavailable Paramjit Yanes DO Emergency Provider Divina Araya DO Primary Care Provider Frank Castillo MD Attending Provider Derek Phipps PA-C Emergency Provider Divina Araya DO Primary Care Provider Vipin Stroud DO Emergency Provider Ivana Vallejo MD, Jerel Bazzi Attending Provider [phone] Divina Araya Primary Care Unavailable Zana Meyers [...] ORR Attending Unavailable SUSAN TROY Attending Unavailable KIRBY, DEMARCO Attending Unavailable MIHAELA, CIRA Attending Unavailable CARLOS ZARAGOZA Attending Unavailable ANUM CODY Attending Unavailable KIRBY, DEMARCO Attending Unavailable MIHAELACIRA Attending Unavailable KIRBYDEMARCO Galeas Attending Unavailable KIRBY, DEMARCO Attending Unavailable Allergies Allergy Classification Reported Allergen(s) Allergy Type Date of Onset Reaction(s) Facility (6 sources) Amoxicillin Drug Allergy 4 Unknown Reaction [facility] Repository (8 sources) Milk Drug allergy (disorder) 4 Unknown, Unknown Reaction [facility] (20 sources) Amoxicillin; Translations: [amoxicillin] Drug Allergy 3 Weal (disorder), Unknown [facility] (20 sources) Cow milk Allergy to substance 4 Unknown [facility] (20 sources) Lactase Drug Allergy 0 Diarrhea [facility] Healthcare (1 source) Amoxicillin Drug Allergy 5 [facility] (1 source) Milk Drug allergy (disorder) [facility] Medications Current Medications Medication Drug Class(es) Dates Sig (Normalized) Sig (Original) [id number] 200 actuat albuterol 0.09 mg/actuat metered dose inhaler (20 sources) beta2-Adrenergic Agonist Start: 12-20-2023 take 2 puff(s) by inhalation every four hours for wheezing albuterol HFA 90 mcg/act inhaler Indications: Mild intermittent asthma, unspecified whether complicated ([facility]) Inhale 2 puffs every 4 (four) hours [...] 2020 6:28pm metroNIDAZOLE 500 mg oral tablet (15 sources) Nitroimidazole Antimicrobial Start: 05-14-2025 End: 05-21-2025 take 1 tablet by mouth in the morning metroNIDAZOLE (Flagyl) 500 MG tablet Indications: BV (bacterial vaginosis) Take 1 tablet (500 mg) by mouth in the morning and 1 tablet (500 mg) before bedtime. Do all this for 7 days. Do not drink alcohol while taking this medication. 14 tablet 05/14/2025 05/18/2025 Discontinued (Therapy completed) Start: 07-29-2020 End: 10-12-2020 take 1 tablet by mouth three times daily Metronidazole 500 mg tablet Discontinued 500 MG PO Three times daily July 29, 2020 1:00am October 12, 2020 6:28pm [place] (No Known Home Meds) (5 sources) Start: 06-29-2024 [place] (No Kn own Home Meds) Active June 29, 2024 12:00am Start: 01-18-2023 [place] (No Kn own Home Meds) Active January 17, 2023 11:00pm Start: 01-18-2023 [place] (No Kn own Home Meds) Active January [...] Discontinued 20 MG PO Daily 14 April 17, 2024 12:00am June 29, 2024 10:59am Pnv Cmb#95-Ferrous Fumarate-Fa () 28 mg iron- 800 mcg tablet (1 source) Start: 01-30-2025 take 1 tablet by mouth once daily Pnv Cmb#95-Ferrous Fumarate-Fa () 28 mg iron- 800 mcg tablet Active 1 TAB PO Daily January 30, 2025 12:00am polyethylene glycol [id number] [id number] mg / potassium chloride 2970 mg / sodium bicarbonate 6740 mg / sodium chloride 5860 mg / sodium sulfate 01025 mg powder for oral solution (2 sources) Osmotic Laxative Start: 04-25-2023 take 236 g by mouth once Golytely 236 GM as directed Orally once for 1 days Apr, Active Tdoewhbi-Gni-Gw-FA ( 1 + IRON PO) (20 sources) Rbklalgl-Uki-Su-FA ( 1 + IRON PO) Take 1 [...] 28, 2023 1:00am October 13, 2023 2:14pm Prenat.Vits,Maximo,Zke-Bhdc-Rwm ic ( Vitamin) Tablet (12 sources) Start: 01-29-2021 End: 12-29-2022 take 1 tablet by mouth once daily Prenat.Vits,Maximo,Vke-Xmrk-Fybyk ( Vitamin) Tablet Discontinued 1 TAB PO Daily January 28, 2021 11:00pm December 29, 2022 11:53am Start: 01-29-2021 End: 12-29-2022 take 1 tablet by mouth once daily Prenat.Vits,Maximo,Ljq-Cwbo-Kusjd ( Vitamin) Tablet Discontinued 1 TAB PO [...] applicable or unspecified; Translations: [MAT CARE OTH TX FTL GRTH 3RD TM UNS] Onset: 2 [...] of ] 01-25-2025 Episodic Residual codes; unclassified (20 sources) Gestation period, 25 weeks; Translations: [25 [...] [36 weeks gestation of ] 05-13-2025 Episodic Residual codes; unclassified (2 sources) Gestation period, 37 weeks; Translations: [37 weeks gestation of ] 05-18-2025 Episodic Sprains and strains (3 sources) Shoulder [...] source) Cough, unspecified; Translations: [Cough, unspecified] Onset: Past or Other Problems Problem Classification Problem [...] Range Facility Urinalysis macro (dipstick) panel (U)on 05-18-2025 Bilirubin, UA Negative Negative - 4(70) +++ mg/dL [facility] Blood, UA Negative Negative - 50 Regino/mcL [facility] Clarity, UA Clear [facility] Color, UA Yellow [facility] Glucose, UA Negative Negative - 2000(110) ++++ mg/dL [facility] Interpretation and review of laboratory results Normal [facility] Ketones, UA Negative Negative - 160(16) ++++ mg/dL [facility] Leukocytes, UA Negative Negative - 500+++ Dara/mcL [facility] Nitrite, UA Negative Negative - Positive [facility] pH, UA 6.5 5 - 9 [facility] Protein, UA Negative Negative - 2000(20) ++++ mg/dL [facility] Spec Grav, UA 1.015 1 - 1.03 [facility] Urobilinogen, UA 1.0 0.2 - 12 mg/dL Critical access hospital No Panel Informationon 05-17 [facility] ORGANISM IDENTIFICATIONon ORGANISM IDENTIFICATION Organism Identification WILL FOLLOW [facility] STREP GP B CULTURE+RFLXon STREP GP B CULTURE+RFLX Strep Gp B Culture+Rflx [facility] STREP GP B CULTURE+RFLX *ABNORMAL* [facility] STREP GP B CULTURE+RFLX Positive N [facility] STREP GP B CULTURE+RFLX Centers for Dise ase Control and Prevention (CDC) and [facility] STREP GP B CULTURE+RFLX [place] Congres s of Obstetricians and Gynecologists [facility] STREP GP B CULTURE+RFLX (ACOG) guideline s for prevention of group B [facility] STREP GP B CULTURE+RFLX streptococcal (G BS) disease specify co-collection of [facility] Healthcare STREP GP B CULTURE+RFLX a vaginal and re ctal swab specimen to maximize [facility] STREP GP B CULTURE+RFLX sensitivity of G BS detection. Per the CDC and ACOG, [facility] Healthcare STREP GP B CULTURE+RFLX swabbing both th e lower vagina and rectum [facility] STREP GP B CULTURE+RFLX substantially in creases the yield of detection [facility] STREP GP B CULTURE+RFLX compared with sa mpling the vagina alone. [facility] STREP GP B CULTURE+RFLX Penicillin G, am picillin, or cefazolin are indicated [facility] STREP GP B CULTURE+RFLX for intrapartum prophylaxis of GBS [facility] STREP GP B CULTURE+RFLX colonization. Re flex susceptibility testing should be [facility] STREP GP B CULTURE+RFLX performed prior to use of clindamycin only on GBS [facility] STREP GP B CULTURE+RFLX isolates from penicillin-allergic women who are [facility] STREP GP B CULTURE+RFLX considered a hig h risk for anaphylaxis. Treatment with [facility] STREP GP B CULTURE+RFLX vancomycin witho ut additional testing is warranted if [facility] STREP GP B CULTURE+RFLX resistance to cl indamycin is noted. [facility] RECURRENT VAGINITIS (HTRX)on 05-14-2025 ATOPOBIUM VAGINAE 24.999 Abnormal [facility] ATOPOBIUM VAGINAE Detected Abnormal [facility] BVAB 2,3 (BACTERIAL VAGINOSIS ASSOCIATED BACTERIA 2, 3); MOBILUNCUS SPP 0 [facility] BVAB 2,3 (BACTERIAL VAGINOSIS ASSOCIATED BACTERIA 2, 3); MOBILUNCUS SPP Not detected [facility] MARILYNN ALBICANS, PARAPSILOSIS, TROPICALIS 0 [facility] MARILYNN ALBICANS, PARAPSILOSIS, TROPICALIS Not detected [facility] MARILYNN GLABRATA 0 [facility] MARILYNN GLABRATA Not detected [facility] MARILYNN KRUSEI 0 [facility] MARILYNN KRUSEI Not detected [facility] CHLAMYDIA TRACHOMATIS 0 [facility] CHLAMYDIA TRACHOMATIS Not detected N [facility] GARDNERELLA VAGINALIS 26.902 Abnormal [facility] GARDNERELLA VAGINALIS Detected Abnormal [facility] Interpretation and review of laboratory results Abnormal [facility] MEGASPHAERA (TYPES 1, 2) 0 [facility] MEGASPHAERA (TYPES 1, 2) Not detected [facility] MYCOPLASMA GENITALIUM 0 [facility] MYCOPLASMA GENITALIUM Not detected N [facility] NEISSERIA GONORRHOEAE 0 [facility] NEISSERIA GONORRHOEAE Not detected N [facility] TRICHOMONAS VAGINALIS 0 [facility] TRICHOMONAS VAGINALIS Not detected N [facility] Urinalysis macro (dipstick) panel (U)on 05-13-2025 Bilirubin, UA Negative Negative - 4(70) +++ mg/dL [facility] Blood, UA Negative Negative - 50 Regino/mcL [facility] Clarity, UA Clear [facility] Color, UA Yellow [facility] Glucose, UA Negative Negative - 1999(110) ++++ mg/dL [facility] Interpretation and review of laboratory results Normal [facility] Ketones, UA Negative Negative - 160(16) ++++ mg/dL [facility] Leukocytes, UA Negative Negative - 500+++ Dara/mcL [facility] Nitrite, UA Negative Negative - Positive [facility] pH, UA 7.5 5 - 9 [facility] Protein, UA Negative Negative - 1999(20) ++++ mg/dL [facility] Spec Grav, UA 1.015 1 - 1.03 [facility] Urobilinogen, UA 1.0 0.2 - 12 mg/dL Critical access hospital Urinalysis macro (dipstick) panel (U)on 05-03-2025 Bilirubin, UA Negative Negative - 4(70) +++ mg/dL [facility] Blood, UA Negative Negative - 50 Regino/mcL [facility] Clarity, UA Clear [facility] Color, UA Yellow [facility] Glucose, UA Negative Negative - 1999(110) ++++ mg/dL [facility] Interpretation and review of laboratory results Normal [facility] Ketones, UA Negative Negative - 160(16) ++++ mg/dL [facility] Leukocytes, UA Negative Negative - 500+++ Dara/mcL [facility] Nitrite, UA Negative Negative - Positive [facility] pH, UA 6.5 5 - 9 [facility] Protein, UA Negative Negative - 1999(20) ++++ mg/dL [facility] Spec Grav, UA 1.01 1 - 1.03 [facility] Urobilinogen, UA 1.0 0.2 - 12 mg/dL Critical access hospital US OB FOLLOW UP TRANSABDOMIN AL APPROACHon [...] UA Negative Negative - 4(70) +++ mg/dL [facility] Blood, UA Negative Negative - 50 Regino/mcL [facility] Clarity, UA Clear [facility] Color, UA Yellow [facility] Glucose, UA Negative Negative - 2000(110) ++++ mg/dL [facility] Interpretation and review of laboratory results Normal [facility] Ketones, UA Negative Negative - 160(16) ++++ mg/dL [facility] Leukocytes, UA Negative Negative - 500+++ Dara/mcL [facility] Nitrite, UA Negative Negative - Positive [facility] pH, UA 7 5 - 9 [facility] Protein, UA Negative Negative - 2000(20) ++++ mg/dL [facility] Spec Grav, UA 1.015 1 - 1.03 [facility] Urobilinogen, UA 0.2 0.2 - 12 mg/dL Critical access hospital ALL CBC WITH AUTO DIFFon BASOPHILS ABSOLUTE AUTO 0 N [facility] Basophils/100 WBC (Bld) 0.2 % 0.2 - 2.0 % [facility] Eosinophils/100 WBC (Bld) 2.2 % 0.9 - 7.0 % [facility] Erythrocyte distribution width (RBC) [Ratio] 12.8 % 11.0 - 15.0 % [facility] Hematocrit (Bld) [Volume fraction] 33.8 % Low 36.0 - 48.0 % [facility] Hemoglobin (Bld) [Mass/Vol] 11.1 g/dL Low 12.0 - 16.0 g/dL [facility] IMMATURE GRANULOCYTES ABS AUTO 0.1 High [facility] Immature granulocytes/100 WBC (Bld) 0.9 % High 0.0 - 0.5 % [facility] Interpretation and review of laboratory results Abnormal [facility] LYMPHOCYTES ABSOLUTE AUTO 1.7 [facility] Lymphocytes/100 WBC (Bld) 14.7 % Low 20.5 - 60.0 % [facility] MCH (RBC) [Entitic mass] 29.3 pg 26.7 - 34.0 pg [facility] MCHC (RBC) [Mass/Vol] 32.8 g/dL 29.9 - 35.2 g/dL [facility] MCV (RBC) [Entitic vol] 89.2 fL 81.0 - 99.0 fL [facility] MONOCYTES ABSOLUTE AUTO 0.6 N [facility] Monocytes/100 WBC (Bld) 4.7 % 1.7 - 12.0 % [facility] NEUTROPHILS ABSOLUTE AUTO 9.1 High [facility] Neutrophils/100 WBC (Bld) 77.3 % High 43.0 - 75.0 % [facility] Platelet mean volume (Bld) [Entitic vol] 9.1 fL Low 9.5 - 13.5 fL [facility] TBH EO # 0.3 [facility] TB PLT 256 [facility] RBC 3.79 Low [facility] WBC 11.7 High [facility] Urinalysis macro (dipstick) panel (U)on 03-29-2025 Bilirubin, UA Negative Negative - 4(70) +++ mg/dL [facility] Blood, UA Negative Negative - 50 Regino/mcL [facility] Clarity, UA Clear [facility] Color, UA Yellow [facility] Glucose, UA Negative Negative - 1999(110) ++++ mg/dL [facility] Interpretation and review of laboratory results Abnormal [facility] Ketones, UA Negative Negative - 160(16) ++++ mg/dL [facility] Leukocytes, UA Negative Negative - 500+++ Dara/mcL [facility] Nitrite, UA Negative Negative - Positive [facility] pH, UA 7.5 5 - 9 [facility] Protein, UA Trace Negative - 2000(20) ++++ mg/dL [facility] Spec Grav, UA 1.01 1 - 1.03 [facility] Urobilinogen, UA 0.2 0.2 - 12 mg/dL Critical access hospital Urinalysis macro (dipstick) panel (U)on 02-22-2025 Bilirubin, UA Negative Negative - 4(70) +++ mg/dL [facility] Blood, UA Negative Negative - 50 Regino/mcL [facility] Clarity, UA Clear [facility] Color, UA Yellow [facility] Glucose, UA Negative Negative - 1999(110) ++++ mg/dL [facility] Interpretation and review of laboratory results Normal [facility] Ketones, UA Negative Negative - 160(16) ++++ mg/dL [facility] Leukocytes, UA Negative Negative - 500+++ Dara/mcL [facility] Nitrite, UA Negative Negative - Positive [facility] pH, UA 6 5 - 9 [facility] Protein, UA Negative Negative - 2000(20) ++++ mg/dL [facility] Spec Grav, UA 1.02 1 - 1.03 [facility] Urobilinogen, UA 0.2 0.2 - 12 mg/dL Critical access hospital US venous duplex LE BIon US venous duplex LE BI [facility] [place] [address] Ultrasound Report Signed Patient: Dawn Major MR#: [id number] : 2000 Acct:[id number] Age/Sex: 24 / F ADM Date: 01/30/25 Loc: ER Room: Type: [facility] ER Attending Dr: Ordering Provider: Vipin [...] Gonzales M.D. 02/02/2025 12:17 PM Dictation Location: [place] [address] Tech: Alice García Transcribed By: SHERINE 02/02/257 Dictated By: Arvin Gonzales MD 02/02/251215 Signed By: 02/02/25 121 Normal [facility] Alanine aminotransferase [En zymatic activity/volume] in Serum or PlasmaOrdered By: Vipin Storud on 01-30-2025 ALT [Catalytic activity/Vol] Alanine aminotransferase [Enzymatic activity/volume] in Serum or Plasma Low 7-52 [facility] Albumin [Mass/volume] in Ser um or Plasma by Bromocresol green (BCG) dye binding methoOrdered By: Vipin Stroud on 01-30-2025 Albumin BCG dye [Mass/Vol] Albumin [Mass/volume] in Serum or Plasma by Bromocresol green (BCG) dye binding metho 3.5-5.7 [facility] Alkaline phosphatase [Enzyma tic activity/volume] in Serum or PlasmaOrdered By: Vipin Stroud on 01-30-2025 ALP [Catalytic activity/Vol] Alkaline phosphatase [Enzymatic activity/volume] in Serum or Plasma 34-104 [facility] Amphetamine Screen Ql (U)Ord ered By: YAKOV MCDONOUGH on 01-30-2025 Amphetamines Ql (U) Amphetamines screen Negativ e [facility] Appearance of UrineOrdered B y: YAKOV MCDONOUGH on 01-30-2025 Appearance (U) Urine appearance Clear [facility] Aspartate aminotransferase [ Enzymatic activity/volume] in Serum or PlasmaOrdered By: Vipin Stroud on 01-30-2025 AST [Catalytic activity/Vol] Aspartate aminotransferase [Enzymatic activity/volume] in Serum or Plasma Low 13-39 [facility] Barbiturates [Presence] in U rine by Screen methodOrdered By: YAKOV MCDONOUGH on 01-30-2025 Barbiturates Screen Ql (U) Barbiturates [Presence] in Urine by Screen method Negative [facility] Basic Metabolic Panelon 01-08 Anion gap [Moles/Vol] 9.8 mmol/L Normal 6.0-15.0 [facility] Comment on above: Performed By: #### H S TROP, PTT, HEPATIC, DDIMER, CBC, LIPASE, BMP, PT ####[facility] [id number] [place] [id number] [facility] Calcium [Mass/Vol] 8.8 mg/dL Normal 8.6-10.3 [facility] Comment on above: Performed By: #### H S TROP, PTT, HEPATIC, DDIMER, CBC, LIPASE, BMP, PT ####[address] Chloride [Moles/Vol] 105 mmol/L Normal 98-107 [facility] Comment on above: Performed By: #### H S TROP, PTT, HEPATIC, DDIMER, CBC, LIPASE, BMP, PT ####[address] CO2 [Moles/Vol] 25.1 mmol/L Normal 21.0-31.0 [facility] Comment on above: Performed By: #### H S TROP, PTT, HEPATIC, DDIMER, CBC, LIPASE, BMP, PT ####[address] Creatinine [Mass/Vol] 0.47 mg/dL Low 0.60-1.20 [facility] Comment on above: Performed By: #### H S TROP, PTT, HEPATIC, DDIMER, CBC, LIPASE, BMP, PT ####[address] Creatinine Clr Calc Pharmacy 141.68 Normal [facility] Comment on above: Performed By: #### H S TROP, PTT, HEPATIC, DDIMER, CBC, LIPASE, BMP, PT ####[address] GFR/1.73 sq M.predicted MDRD (S/P/Bld) [Vol rate/Area] mL/min/{1.73_m2} Normal [facility] Comment on above: Performed By: #### H S TROP, PTT, HEPATIC, DDIMER, CBC, LIPASE, BMP, PT ####[address] Glucose [Mass/Vol] 83 mg/dL Normal 70-100 [facility] Comment on above: Result Comment: [place] Glucose Reference Range is dependent on time and content of last meal. Glucose of more than 200 mg/dL in a nonstressed, ambulatory subject supports the diagnosis of Diabetes Mellitus. ADA recommended reference range Performed By: #### H S TROP, PTT, HEPATIC, DDIMER, CBC, LIPASE, BMP, PT ####[address] [place] [address] [place] Potassium [Moles/Vol] 3.9 mmol/L Normal 3.5-5.1 [facility] Comment on above: Performed By: #### H S TROP, PTT, HEPATIC, DDIMER, CBC, LIPASE, BMP, PT ####[address] Sodium [Moles/Vol] 136 mmol/L Normal 136-145 [facility] Comment on above: Performed By: #### H S TROP, PTT, HEPATIC, DDIMER, CBC, LIPASE, BMP, PT ####[address] Urea nitrogen [Mass/Vol] 6 mg/dL Low 7-25 [facility] Comment on above: Performed By: #### H S TROP, PTT, HEPATIC, DDIMER, CBC, LIPASE, BMP, PT ####[address] Basophils Auto (Bld) [#/Vol] Ordered By: Vipin Stroud on 01-30-2025 Basophils (Bld) [#/Vol] Automated basophil count 0.0-0.2 [facility] Basophils/100 WBC Auto (Bld) Ordered By: Vipin Stroud on 01-30-2025 Basophils/100 WBC (Bld) Automated basophil % . [facility] Benzodiazepines Screen Ql (U )Ordered By: YAKOV MCDONOUGH on 01-30-2025 Benzodiazepines Ql (U) Benzodiazepines [ Presence] in Urine by Screen method Negative [facility] Benzoylecgonine [Presence] i n Urine by Screen methodOrdered By: YAKOV MCDONOUGH on 01-30-2025 Benzoylecgonine Screen Ql (U) Benzoylecgonine [Presence] in Urine by Screen method Negative [facility] Bilirubin Test strip Ql (U)O rdered By: YAKOV MCDONOUGH on 01-30-2025 Bilirubin Ql (U) Bilirubin.total [Pre sence] in Urine by Test strip Negative [facility] Bilirubin.direct [Mass/volum e] in Serum or PlasmaOrdered By: Vipin Stroud on 01-30-2025 Bilirubin.direct [Mass/Vol] Bilirubin.direct [Mass/volume] in Serum or Plasma 0.03-0.18 [facility] Bilirubin.total [Mass/volume ] in Serum or PlasmaOrdered By: Vipin Stroud on 01-30-2025 Bilirubin [Mass/Vol] Bilirubin.total [Mass/volume] in Serum or Plasma Low 0.3-1.0 [facility] Calcium [Mass/volume] in Ser um or PlasmaOrdered By: Vipin Stroud on 01-30-2025 Calcium [Mass/Vol] Calcium [Mass/volume ] in Serum or Plasma 8.6-10.3 [facility] Carbon dioxide, total [Moles /volume] in Serum or PlasmaOrdered By: Vipin Stroud on 01-30-2025 CO2 [Moles/Vol] Carbon dioxide, tota l [Moles/volume] in Serum or Plasma 21.0-31.0 [facility] Chloride [Moles/volume] in S isabel or PlasmaOrdered By: Vipin Stroud on 01-30-2025 Chloride [Moles/Vol] Chloride [Moles/vol ume] in Serum or Plasma 98-107 [facility] Color Auto (U)Ordered By: SHAAN MCDONOUGH on 01-30-2025 Color (U) Color of Urine by Auto Yellow [facility] Complete Blood Count Auto Di ffon 01-30-2025 Basophils (Bld) [#/Vol] 0.0 10*3/uL Normal 0.0-0.2 [facility] Comment on above: Result Comment: PERF ORMED BY: [place] [address] PATHOLOGIST BOTTLER HELPER MARCO GALAVIZ M.D. Performed By: #### H S TROP, PTT, HEPATIC, DDIMER, CBC, LIPASE, BMP, PT #### [address] Basophils/100 WBC (Bld) 0.4 % Normal . [facility] Comment on above: Performed By: #### H S TROP, PTT, HEPATIC, DDIMER, CBC, LIPASE, BMP, PT #### [address] Eosinophils (Bld) [#/Vol] 0.2 10*3/uL Normal 0.0-0.45 [facility] Comment on above: Performed By: #### H S TROP, PTT, HEPATIC, DDIMER, CBC, LIPASE, BMP, PT #### [address] Eosinophils/100 WBC (Bld) 2.1 % Normal . [facility] Comment on above: Performed By: #### H S TROP, PTT, HEPATIC, DDIMER, CBC, LIPASE, BMP, PT #### [address] Erythrocyte distribution width (RBC) [Ratio] 13.7 % Normal 11.9-15.3 [facility] Comment on above: Performed By: #### H S TROP, PTT, HEPATIC, DDIMER, CBC, LIPASE, BMP, PT #### [address] Hematocrit (Bld) [Volume fraction] 36.2 % Normal 34.0-46.4 [facility] Comment on above: Performed By: #### H S TROP, PTT, HEPATIC, DDIMER, CBC, LIPASE, BMP, PT #### [address] Hemoglobin (Bld) [Mass/Vol] 12.7 g/dL Normal 11.8-15.4 [facility] Comment on above: Performed By: #### H S TROP, PTT, HEPATIC, DDIMER, CBC, LIPASE, BMP, PT #### [address] Lymphocytes (Bld) [#/Vol] 1.2 10*3/uL Normal 1.00-4.8 [facility] Comment on above: Performed By: #### H S TROP, PTT, HEPATIC, DDIMER, CBC, LIPASE, BMP, PT #### [address] Lymphocytes/100 WBC (Bld) 12.8 % Normal . [facility] Comment on above: Performed By: #### H S TROP, PTT, HEPATIC, DDIMER, CBC, LIPASE, BMP, PT #### [address] MCH (RBC) [Entitic mass] 30.8 pg Normal 24.7-34.3 [facility] Comment on above: Performed By: #### H S TROP, PTT, HEPATIC, DDIMER, CBC, LIPASE, BMP, PT #### [address] MCV (RBC) [Entitic vol] 87.8 fL Normal 80-100 [facility] Comment on above: Performed By: #### H S TROP, PTT, HEPATIC, DDIMER, CBC, LIPASE, BMP, PT #### [address] Mean Corpuscular HGB Conc 35.1 g/dL High 32.0-35.0 [facility] Comment on above: Performed By: #### H S TROP, PTT, HEPATIC, DDIMER, CBC, LIPASE, BMP, PT #### [address] Monocytes (Bld) [#/Vol] 0.3 10*3/uL Normal 0.0-0.8 [facility] Comment on above: Performed By: #### H S TROP, PTT, HEPATIC, DDIMER, CBC, LIPASE, BMP, PT #### [address] Monocytes/100 WBC (Bld) 15.98 % Normal 0.00-20.00 [facility] Comment on above: Performed By: #### H S TROP, PTT, HEPATIC, DDIMER, CBC, LIPASE, BMP, PT #### [address] Monocytes/100 WBC (Bld) 3.5 % Normal . [facility] Comment on above: Performed By: #### H S TROP, PTT, HEPATIC, DDIMER, CBC, LIPASE, BMP, PT #### [address] Neutrophils (Bld) [#/Vol] 7.9 10*3/uL High 1.8-7.7 [facility] Comment on above: Performed By: #### H S TROP, PTT, HEPATIC, DDIMER, CBC, LIPASE, BMP, PT #### [address] Neutrophils/100 WBC (Bld) 81.2 % Normal . [facility] Comment on above: Performed By: #### H S TROP, PTT, HEPATIC, DDIMER, CBC, LIPASE, BMP, PT #### [address] NRBC% 0.0 /100{WBC} Normal 0-0.5 [facility] Comment on above: Performed By: #### H S TROP, PTT, HEPATIC, DDIMER, CBC, LIPASE, BMP, PT #### [address] Platelet mean volume (Bld) [Entitic vol] 7.4 fL Normal 6.3-10.7 [facility] Comment on above: Performed By: #### H S TROP, PTT, HEPATIC, DDIMER, CBC, LIPASE, BMP, PT #### [address] Platelets (Bld) [#/Vol] 253 10*3/uL Normal 150-450 [facility] Comment on above: Performed By: #### H S TROP, PTT, HEPATIC, DDIMER, CBC, LIPASE, BMP, PT #### [address] RBC (Bld) [#/Vol] 4.12 10*6/uL Normal 3.60-5.00 [facility] Comment on above: Performed By: #### H S TROP, PTT, HEPATIC, DDIMER, CBC, LIPASE, BMP, PT #### [address] WBC (Bld) [#/Vol] 9.7 10*3/uL Normal 3.8-11.6 [facility] Comment on above: Performed By: #### H S TROP, PTT, HEPATIC, DDIMER, CBC, LIPASE, BMP, PT #### [facility] [address] [place] [address] [facility] Creatinine [Mass/volume] in Serum or PlasmaOrdered By: Vipin Stroud on 01-30-2025 Creatinine [Mass/Vol] Creatinine [Mass/v olume] in Serum or Plasma Low 0.60-1.20 [facility] D-Dimer High Sensitivityon 0 01-30-2025 D-Dimer High Sensitivity 209 ng/mL Normal 0-243 [facility] Comment on above: Result Comment: [...] coagulation studies. Please contact the laboratory at [phone] for redraw instructions. PERFORMED BY: [place] [address] PATHOLOGIST [employer] MARCO GALAVIZ M.D. Performed By: #### H S TROP, PTT, HEPATIC, DDIMER, CBC, LIPASE, BMP, PT ####[facility] [id number] [place] [address] [facility] ECG 12 lead ECGon 01-30-2025 ECG 12 lead ECG [facility] [address] [place] [address] [place] [id number] Electrocardiograph Report Signed Patient: Dawn Major MR#: [id number] : 2000 Acct:[id number] Age/Sex: 24 / F ADM Date: 01/30/25 Loc: ER Room: Type: [facility] ER Attending Dr: Ordering Provider: Vipin Stroud, DO Date of Service: 01/30/25 ECG/ECG 12 [...] sinus arrhythmia Confirmed by Vipin Stroud DO ([id number]) on 01/31/2025 6:56:09 AM Referred By: Electronically Signed By: Vipin Stroud DO Transcribed By: MUS Signed By Vipin Stroud DO 0656 Normal [facility] Eosinophils Auto (Bld) [#/Vo l]Ordered By: Vipin Stroud on 01-30-2025 Eosinophils (Bld) [#/Vol] Automated eosinophil count 0.0-0.45 [facility] Eosinophils/100 WBC Auto (Bl d)Ordered By: Vipin Stroud on 01-30-2025 Eosinophils/100 WBC (Bld) Automated eosinophil % . [facility] Erythrocyte distribution wid th Auto (RBC) [Ratio]Ordered By: Vipin Stroud on 01-30-2025 Erythrocyte distribution width (RBC) [Ratio] Erythrocyte distribution width [Ratio] by Automated count 11.9-15.3 [facility] Fibrin D-dimer [Presence] in Platelet poor plasma by Latex agglutinationOrdered By: Vipin Stroud on 01-30-2025 Fibrin D-dimer LA Ql (PPP) Fibrin D-dimer [Presence] in Platelet poor plasma by Latex agglutination 0-243 [facility] Comment on above: The reference range [...] coagulation studies. Please contact the laboratory at [phone] for redraw instructions. Globulin Calc (S) [Mass/Vol] Ordered By: Vipin Stroud on 01-30-2025 Globulin (S) [Mass/Vol] Serum globulin m easurement by calculation (mass/volume) [facility] Glucose [Mass/volume] in Ser um or PlasmaOrdered By: Vipin Stroud on 01-30-2025 Glucose [Mass/Vol] Glucose [Mass/volume ] in Serum or Plasma 70-100 [facility] Comment on above: ADA recommended refe [...] [Mass/volume] in Urine by Test strip Normal [facility] Hematocrit Auto (Bld) [Volum e fraction]Ordered By: Vipin Stroud on 01-30-2025 Hematocrit (Bld) [Volume fraction] Hematocrit [Volume Fraction] of Blood by Automated count 34.0-46.4 [facility] Hemoglobin Test strip Ql (U) Ordered By: YAKOV MCDONOUGH on 01-30-2025 Hemoglobin Ql (U) Hemoglobin [Presence ] in Urine by Test strip Negative [facility] Hemoglobin [Mass/volume] in BloodOrdered By: Vipin Stroud on 01-30-2025 Hemoglobin (Bld) [Mass/Vol] Hemoglobin [Mass/volume] in Blood 11.8-15.4 [facility] Hepatic Panelon 01-30-2025 Albumin [Mass/Vol] 3.9 g/dL Normal 3.5-5.7 [facility] Comment on above: Performed By: #### H S TROP, PTT, HEPATIC, DDIMER, CBC, LIPASE, BMP, PT #### [facility] [address] Albumin/Globulin [Mass ratio] 1.3 {ratio} Normal [facility] Comment on above: Performed By: #### H S TROP, PTT, HEPATIC, DDIMER, CBC, LIPASE, BMP, PT #### [address] ALP [Catalytic activity/Vol] 44 U/L Normal 34-104 [facility] Comment on above: Performed By: #### H S TROP, PTT, HEPATIC, DDIMER, CBC, LIPASE, BMP, PT #### [address] ALT [Catalytic activity/Vol] 6 U/L Low 7-52 [facility] Comment on above: Performed By: #### H S TROP, PTT, HEPATIC, DDIMER, CBC, LIPASE, BMP, PT #### [address] AST [Catalytic activity/Vol] 12 U/L Low 13-39 [facility] Comment on above: Performed By: #### H S TROP, PTT, HEPATIC, DDIMER, CBC, LIPASE, BMP, PT #### [address] Bilirubin [Mass/Vol] 0.2 mg/dL Low 0.3-1.0 [facility] Comment on above: Performed By: #### H S TROP, PTT, HEPATIC, DDIMER, CBC, LIPASE, BMP, PT #### [address] Bilirubin,Indirect 0.1 mg/dL Normal [facility] Comment on above: Performed By: #### H S TROP, PTT, HEPATIC, DDIMER, CBC, LIPASE, BMP, PT #### [address] Bilirubin.indirect [Mass/Vol] 0.10 mg/dL Normal 0.03-0.18 [facility] Comment on above: Performed By: #### H S TROP, PTT, HEPATIC, DDIMER, CBC, LIPASE, BMP, PT #### [address] Globulin (S) [Mass/Vol] 2.9 g/dL Normal T [facility] Comment on above: Performed By: #### H S TROP, PTT, HEPATIC, DDIMER, CBC, LIPASE, BMP, PT #### [facility] [address] Protein [Mass/Vol] 6.8 g/dL Normal 6.4-8.9 [facility] Comment on above: Performed By: #### H S TROP, PTT, HEPATIC, DDIMER, CBC, LIPASE, BMP, PT #### [facility] [address] INR in Platelet poor plasma by Coagulation assayOrdered By: Vipin Stroud on 01-30-2025 INR Coag (PPP) [Relative time] INR in Platelet poor plasma by Coagulation assay [facility] Comment on above: INR Therapeutic Rang [...] i n Urine by Test strip Negative [facility] Leukocyte esterase [Presence ] in Urine by Test stripOrdered By: YAKOV MCDONOUGH on 01-30-2025 Leukocyte esterase Test strip Ql (U) Leukocyte esterase [Presence] in Urine by Test strip Negative [facility] Leukocytes [#/volume] correc michael for nucleated erythrocytes in Blood by Automated counOrdered By: Vipin Stroud on 01-30-2025 WBC corrected for nucl RBC Auto (Bld) [#/Vol] Leukocytes [#/volume] corrected for nucleated erythrocytes in Blood by Automated coun 3.8-11.6 [facility] Lipaseon 01-30-2025 Lipase [Catalytic activity/Vol] 18.0 U/L Normal 11.0-82.0 [facility] Comment on above: Result Comment: PERF ORMED BY: [facility] [address] [place] [address] PATHOLOGIST [employer] MARCO GALAVIZ M.D. Performed By: #### H S TROP, PTT, HEPATIC, DDIMER, CBC, LIPASE, BMP, PT ####[facility] [id number] [place] [address] [facility] Lipase [Enzymatic activity/v olume] in Serum or PlasmaOrdered By: Vipin Stroud on 01-30-2025 Lipase [Catalytic activity/Vol] Lipase [Enzymatic activity/volume] in Serum or Plasma 11.0-82.0 [facility] Lymphocytes Auto (Bld) [#/Vo l]Ordered By: Vipin Stroud on 01-30-2025 Lymphocytes (Bld) [#/Vol] Lymphocytes [#/volume] in Blood by Automated count 1.00-4.8 [facility] Lymphocytes/100 WBC Auto (Bl d)Ordered By: Vipin Stroud on 01-30-2025 Lymphocytes/100 WBC (Bld) Lymphocytes/100 leukocytes in Blood by Automated count . [facility] MCH Auto (RBC) [Entitic mass ]Ordered By: Vipin Stroud on 01-30-2025 MCH (RBC) [Entitic mass] MCH [Entitic mass] by Automated count 24.7-34.3 [facility] MCHC Auto (RBC) [Mass/Vol]Or dered By: Vipin Stroud on 01-30-2025 MCHC (RBC) [Mass/Vol] MCHC [Mass/volume] by Automated count High 32.0-35.0 [facility] MCV Auto (RBC) [Entitic vol] Ordered By: Vipin Stroud on 01-30-2025 MCV (RBC) [Entitic vol] MCV [Entitic vol ume] by Automated count 80-100 [facility] Monocyte distribution width [Entitic volume] in Blood by AutomatedOrdered By: Vipin Stroud on 01-30-2025 Monocyte distribution width Auto (Bld) [Entitic vol] Monocyte distribution width [Entitic volume] in Blood by Automated 0.00-20.00 [facility] Monocytes Auto (Bld) [#/Vol] Ordered By: Vipin Stroud on 01-30-2025 Monocytes (Bld) [#/Vol] Automated blood monocyte count 0.0-0.8 [facility] Monocytes/100 WBC Auto (Bld) Ordered By: Vipin Stroud on 01-30-2025 Monocytes/100 WBC (Bld) Automated monocyte % . [facility] Neutrophils Auto (Bld) [#/Vo l]Ordered By: Vipin Stroud on 01-30-2025 Neutrophils (Bld) [#/Vol] Neutrophils [#/volume] in Blood by Automated count High 1.8-7.7 [facility] Neutrophils/100 WBC Auto (Bl d)Ordered By: Vipin Stroud on 01-30-2025 Neutrophils/100 WBC (Bld) Automated neutrophil % . [facility] Nitrite Test strip Ql (U)Ord ered By: YAKOV MCDONOUGH on 01-30-2025 Nitrite Ql (U) Nitrite [Presence] i n Urine by Test strip Negative [facility] No Panel InformationOrdered By: Vipin Stroud on 01-30-2025 Estimated GFR (CKD-EPI) > 60.0 mL/Min [facility] Creatinine Clearance (Chem 141.68 [facility] Nucleated erythrocytes [Pres ence] in Blood by Automated countOrdered By: Vipin Stroud on 01-30-2025 Nucleated RBC Auto Ql (Bld) Nucleated erythrocytes [Presence] in Blood by Automated count 0-0.5 [facility] OB Urine Drug Screen (NO THC )on 01-30-2025 Amphetamine Screen,Urine Negative Normal Negative [facility] Comment on above: Order Comment: Comme nt s/s of acute impairment Performed By: #### O BUDS, UA ####[facility] [id number] [place] [address] [facility] Barbiturate Screen,Urine Negative Normal Negative [facility] Comment on above: Order Comment: Comme nt s/s of acute impairment Performed By: #### O BUDS, UA ####[facility] [id number] [place] [address] [facility] Benzodiazepines Screen,Urine Negative Normal Negative [facility] Comment on above: Order Comment: Comme nt s/s of acute impairment Performed By: #### O BUDS, UA ####[facility] [place] [address] [facility] Cocaine Screen,Urine Negative Normal Negative [facility] Comment on above: Order Comment: Comme nt s/s of acute impairment Performed By: #### O BUDS, UA ####[facility] [place] [address] [facility] Opiate Screen,Urine Negative Normal Negative [facility] Comment on above: Order Comment: Comme nt s/s of acute impairment Performed By: #### O BUDS, UA ####[place] [address] [place] [id number] [facility] Phencyclidine Screen, Urine Negative Normal Negative [facility] Comment on above: Order Comment: Comme nt s/s of acute impairment Result Comment: Thes e are unconfirmed results and should not be used for legal purposes. Drug Cut-Off Concentration: AMPH 1000 ng/mL VENKATA 200 ng/mL BREANNA 200 ng/mL COCM 300 ng/mL OP 300 ng/mL PCP 25 ng/mL PERFORMED BY: [facility] [address] [place] [id number] PATHOLOGIST [employer]PER MARCO GALAVIZ M.D. Performed By: #### O BUDS, ####[place] [id number] [facility] Opiates [Presence] in Urine by Screen methodOrdered By: YAKOV MCDONOUGH on 01-30-2025 Opiates Screen Ql (U) Opiates [Presence] in Urine by Screen method Negative [facility] Partial Thromboplastin Timeo n 01-30-2025 aPTT Coag (Bld) [Time] 27.2 s Normal 25.1-36.5 [facility] Comment on above: Result Comment: A he matocrit value greater than 55% may lead to inaccurate results in coagulation testing. Patients having hematocrit values >55% require a special collection tube for coagulation studies. Please contact the laboratory at [phone] for redraw instructions. Performed By: #### H S TROP, PTT, HEPATIC, DDIMER, CBC, LIPASE, BMP, PT ####[place] [address] [place] [id number] [facility] Phencyclidine Screen Ql (U)O rdered By: YAKOV MCDONOUGH on 01-30-2025 Phencyclidine Ql (U) Phencyclidine [Pres ence] in Urine by Screen method Negative [facility] Comment on above: These are unconfirme [...] volume] in Blood by Automated count 6.3-10.7 [facility] Platelets Auto (Bld) [#/Vol] Ordered By: Vipin Stroud on 01-30-2025 Platelets (Bld) [#/Vol] Platelets [#/vol ume] in Blood by Automated count 150-450 [facility] Potassium [Moles/volume] in Serum or PlasmaOrdered By: Vipin Stroud on 01-30-2025 Potassium [Moles/Vol] Potassium [Moles/v olume] in Serum or Plasma 3.5-5.1 [facility] Protein Test strip (U) [Mass /Vol]Ordered By: YAKOV MCDONOUGH on 01-30-2025 Protein (U) [Mass/Vol] Protein [Mass/vol ume] in Urine by Test strip Negative [facility] Protein [Mass/volume] in Ser um or PlasmaOrdered By: Vipin Stroud on 01-30-2025 Protein [Mass/Vol] Protein [Mass/volume ] in Serum or Plasma 6.4-8.9 [facility] Prothrombin Time INRon 01-30 INR Coag (PPP) [Relative time] 0.9 {INR} Normal [facility] Comment on above: Result Comment: [...] PTT, HEPATIC, DDIMER, CBC, LIPASE, BMP, PT ####[facility] [id number] [place] [id number] [facility] PT Coag (PPP) [Time] 10.6 s Normal 9.0-12.9 [facility] Comment on above: Result Comment: A he matocrit value greater than 55% may lead to inaccurate results in coagulation testing. Patients having hematocrit values >55% require a special collection tube for coagulation studies. Please contact the laboratory at [phone] for redraw instructions. Performed By: #### H S TROP, PTT, HEPATIC, DDIMER, CBC, LIPASE, BMP, PT ####[facility] [id number] [place] [id number] [facility] Prothrombin time (PT)Ordered By: Vipin Stroud on 01-30-2025 PT Coag (PPP) [Time] Prothrombin time (PT) 9.0- 12.9 [facility] Comment on above: A hematocrit value g reater than 55% may lead to inaccurate results in coagulation testing. Patients having hematocrit values >55% require a special collection tube for coagulation studies. Please contact the laboratory at [phone] for redraw instructions. RBC Auto (Bld) [#/Vol]Ordere d By: Vipin Stroud on 01-30-2025 RBC (Bld) [#/Vol] Erythrocytes [#/volu me] in Blood by Automated count 3.60-5.00 [facility] Serum or plasma albumin/glob ulin mass ratioOrdered By: Vipin Stroud on 01-30-2025 Albumin/Globulin [Mass ratio] Serum or plasma albumin/globulin mass ratio [facility] Serum or plasma anion gap de terminationOrdered By: Vipin Stroud on 01-30-2025 Anion gap [Moles/Vol] Serum or plasma an ion gap determination 6.0-15.0 [facility] Serum or plasma non-glucuron idated bilirubin measurement (mass/volume)Ordered By: Vipin Stroud on 01-30-2025 Bilirubin.indirect [Mass/Vol] Serum or plasma non-glucuronidated bilirubin measurement (mass/volume) [facility] Sodium [Moles/volume] in Ser um or PlasmaOrdered By: Vipin Stroud on 01-30-2025 Sodium [Moles/Vol] Sodium [Moles/volume ] in Serum or Plasma 136-145 [facility] Specific gravity Test strip (U) [Rel density]Ordered By: YAKOV MCDONOUGH on 01-30-2025 Specific gravity (U) [Rel density] Specific gravity of Urine by Test strip 1.001-1.03 0 [facility] Troponin I High Sensitivityo n 01-30-2025 Troponin I High Sensitivity 3 Normal 0-15 [facility] Comment on above: Result Comment: The Troponin units of report have been changed to meet the Chest Pain Accreditation requirement, element EC5.M1l2. Troponin units are changed from pg/ml to ng/L. Also, the decimal is removed and results are in whole numbers. PERFORMED BY: [facility] [address] [place] [address] PATHOLOGIST [employer]PER MARCO GALAVIZ M.D. Performed By: #### H S TROP, PTT, HEPATIC, DDIMER, CBC, LIPASE, BMP, PT ####[facility] [id number] Troponin I.cardiac [Mass/vol ume] in Serum or Plasma by Detection limit <= 0.01 ng/Ordered By: Vpiin Stroud on 01-30-2025 Troponin I.cardiac DL <= 0.01 ng/mL [Mass/Vol] Troponin I.cardiac [Mass/volume] in Serum or Plasma by Detection limit <= 0.01 ng/ 0-15 [facility] Comment on above: The Troponin units [...] [Mass/volume] in Serum or Plasma Low 7-25 [facility] Urinalysison 01-30-2025 Appearance (U) Clear Normal Clear [facility] Comment on above: Order Comment: Comme nt c/o urinary symptoms or increased blood pressure Name Collection Type:: Voided Performed By: #### O BUDS, UA ####[place] [id number] [facility] Bilirubin,Urine Negative Normal Negative [facility] Comment on above: Order Comment: Comme nt c/o urinary symptoms or increased blood pressure Name Collection Type:: Voided Performed By: #### O BUDS, UA ####[address] [facility] Color (U) Light-Yellow Normal Yellow [facility] Comment on above: Order Comment: Comme nt c/o urinary symptoms or increased blood pressure Name Collection Type:: Voided Performed By: #### O BUDS, UA ####[address] [facility] Glucose Ql (U) Normal Normal Normal [facility] Comment on above: Order Comment: Comme nt c/o urinary symptoms or increased blood pressure Name Collection Type:: Voided Performed By: #### O BUDS, UA ####[place] [id number] [facility] Ketones Ql (U) Negative Normal Negative [facility] Comment on above: Order Comment: Comme nt c/o urinary symptoms or increased blood pressure Name Collection Type:: Voided Performed By: #### O BUDS, UA ####[place] [id number] [facility] Leukocyte esterase Test strip Ql (U) Negative Normal Negative [facility] Comment on above: Order Comment: Comme nt c/o urinary symptoms or increased blood pressure Name Collection Type:: Voided Performed By: #### O BUDS, UA ####[place] [id number] [facility] Nitrite,Urine Negative Normal Negative [facility] Comment on above: Order Comment: Comme nt c/o urinary symptoms or increased blood pressure Name Collection Type:: Voided Performed By: #### O BUDS, UA ####[address] [facility] Occult Blood,Urine Negative Normal Negative [facility] Comment on above: Order Comment: Comme nt c/o urinary symptoms or increased blood pressure Name Collection Type:: Voided Result Comment: PERF ORMED BY: [facility] [address] [place] [id number] PATHOLOGIST [employer]PER MARCO GALAVIZ M.D. Performed By: #### O BUDS, UA ####[place] [address] pH (U) 7.0 [pH] Normal 5.0-9.0 [facility] Comment on above: Order Comment: Comme nt c/o urinary symptoms or increased blood pressure Name Collection Type:: Voided Performed By: #### O BUDS, UA ####[address] Protein,Urine Negative Normal Negative [facility] Comment on above: Order Comment: Comme nt c/o urinary symptoms or increased blood pressure Name Collection Type:: Voided Performed By: #### O BUDS, UA ####[address] Specificy [place],Urine 1.014 Normal 1.00 1-1.03 0 [facility] Comment on above: Order Comment: Comme nt c/o urinary symptoms or increased blood pressure Name Collection Type:: Voided Performed By: #### O BUDS, UA ####[address] Urobilinogen,Urine Normal Normal Normal [facility] Comment on above: Order Comment: Comme nt c/o urinary symptoms or increased blood pressure Name Collection Type:: Voided Performed By: #### O BUDS, UA ####[place] [id number] [facility] Urobilinogen Test strip (U) [Mass/Vol]Ordered By: YAKOV MCDONOUGH on 01-30-2025 Urobilinogen (U) [Mass/Vol] Urobilinogen [Mass/volume] in Urine by Test strip Normal [facility] WBC Auto (Bld) [#/Vol]Ordere d By: Vipin Stroud on 01-30-2025 WBC (Bld) [#/Vol] Leukocytes [#/volume ] in Blood by Automated count 3.8-11.6 [facility] X-ray reportOrdered By: J Luis Newton on 01-30-2025 Study report [facility] Main [place] [id number] XRay Report Signed Patient: Dawn Major MR#: [id number] : 2000 Acct:[id number] Age/Sex: 24 / F ADM Date: 5 [...] Newton M.D. 01/30/2025 8:55 AM Dictation Location: [place] [address] Transcribed By: SHERINE 01/30/25 0855 Dictated By: J Luis Newton II, MD 01/30/25 0853 Signed By: 01/30/25 0855 [facility] Work Phone: XR chest 1V portableon 01-30 XR chest 1V portable [facility] Main [address] [address] XRay Report Signed Patient: Dawn Major MR#: [id number] : 2000 Acct:[id number] Age/Sex: 24 / F ADM Date: 01/30/25 [...] Newton M.D. 01/30/2025 8:55 AM Dictation Location: [place] [address] Transcribed By: [facility] 01/30/25 0855 Dictated By: J Luis Newton II, MD 01/30/25 0853 Signed By: 01/30/25 0855 Normal [facility] aPTT in Platelet poor plasma by Coagulation assayOrdered By: Vipin Stroud on 01-30-2025 aPTT Coag (PPP) [Time] Activated partial thromboplastin time (aPTT) in platelet poor plasma by coagulation a 25.1-36.5 [facility] Comment on above: A hematocrit value g reater than 55% may lead to inaccurate results in coagulation testing. Patients having hematocrit values >55% require a special collection tube for coagulation studies. Please contact the laboratory at [phone] for redraw instructions. pH Test strip (U)Ordered By: YAKOV MCDONOUGH on 01-30-2025 pH (U) pH of Urine by Test strip 5.0-9.0 [facility] US OB ANATOMYon 01-27-2025 [place] [address] Ultrasound Report Signed Patient: DAWN MAJOR MR#: [id number] : 2000 Acct:[id number] Age/Sex: 24 / F ADM Date: 01/27/25 Loc: US Attending Dr: Demarco Orr D.O. Ordering Physician: Demarco Orr D.O. Date of Service: 01/27/25 Procedure(s): US OB anatomy Accession Number(s): [id number] cc: Demarco Orr D.O.; Geena ARAYA [address] [address] Patient Name: DAWN MAJOR MRN: [id number] date: 2000 Sex: F Assigned Patient Location: US Current Patient Location: US Accession/Order Number: [id number] Exam Date: 01/27/2025 12:50 Report Date: 01/27/2025 [...] all 4 extremities were surveyed by the career information specialist and no abnormalities were identified. The facial [...] was evaluated with a transvaginal probe. The career information specialist noted contractions during evaluation. There is no evidence of previa. The cervix is closed and measures approximately 3.7 cm in length. IMPRESSION: CLOSED CERVIX, WITHOUT ABNORMALITY. Impression dictated by: Catherine Cortes M.D. 01/27/2025 12:56 PM Dictation Location: [place] [address] Electronically authenticated by: [id number] Y Date: 01/27/2025 12:56 Dictated By: Catherine Cortes M.D. Signed By: 01/27/25 1258 DD/ 1256 TD/TT: Finance Administrator: [facility] Radiology, Radiologkeyona mckenna MD - 01/27/2025 [place] [address] Ultrasound Report Signed Patient: DAWN MAJOR MR#: [id number] : 2000 Acct:[id number] Age/Sex: 24 / F ADM Date: 01/27/25 Loc: US Attending Dr: Demarco Orr D.O. Ordering Physician: Demarco Orr D.O. Date of Service: 01/27/25 Procedure(s): US OB anatomy Accession Number(s): [id number] cc: Demarco Orr D.O.; Geena ARAYA The [place] [address] Patient Name: DAWN MAJOR MRN: [facility]:[id number] date: 2000 Sex: F Assigned Patient Location: US Current Patient Location: US Accession/Order Number: [id number] Exam Date: 01/27/2025 12:50 Report Date: 01/27/2025 [...] all 4 extremities were surveyed by the career information specialist and no abnormalities were identified. The facial [...] was evaluated with a transvaginal probe. The career information specialist noted contractions during evaluation. There is no evidence of previa. The cervix is closed and measures approximately 3.7 cm in length. IMPRESSION: CLOSED CERVIX, WITHOUT ABNORMALITY. Impression dictated by: Catherine Cortes M.D. 01/27/2025 12:56 PM Dictation Location: [place] [address] Electronically authenticated by: [id number] Y Date: 01/27/2025 12:56 Dictated By: Catherine Cortes M.D. Signed By: 01/27/25 1258 DD/ 1256 TD/TT: Finance Administrator: [facility] Radiology Study observation (narrative) [facility] US OB ANATOMYOrdered By: Herbert iologwolf Radiology on 01-27-2025 [facility] Work Phone: RECURRENT VAGINITIS (HTRX)on 01-26-2025 ATOPOBIUM VAGINAE 29.079 Abnormal [facility] ATOPOBIUM VAGINAE Detected Abnormal [facility] BVAB 2,3 (BACTERIAL VAGINOSIS ASSOCIATED BACTERIA 2, 3); MOBILUNCUS SPP 0 [facility] BVAB 2,3 (BACTERIAL VAGINOSIS ASSOCIATED BACTERIA 2, 3); MOBILUNCUS SPP Not detected [facility] MARILYNN ALBICANS, PARAPSILOSIS, TROPICALIS 0 [facility] MARILYNN ALBICANS, PARAPSILOSIS, TROPICALIS Not detected [facility] MARILYNN GLABRATA 0 [facility] MARILYNN GLABRATA Not detected [facility] MARILYNN KRUSEI 0 [facility] MARILYNN KRUSEI Not detected [facility] CHLAMYDIA TRACHOMATIS 0 [facility] CHLAMYDIA TRACHOMATIS Not detected N [facility] ERMB, C; MEFA 26.396 Abnormal [facility] ERMB, C; MEFA Detected Abnormal [facility] GARDNERELLA VAGINALIS 32.623 Abnormal [facility] GARDNERELLA VAGINALIS Detected Abnormal [facility] Interpretation and review of laboratory results Abnormal [facility] MEGASPHAERA (TYPES 1, 2) 0 [facility] MEGASPHAERA (TYPES 1, 2) Not detected [facility] MYCOPLASMA GENITALIUM 0 [facility] MYCOPLASMA GENITALIUM Not detected N [facility] NEISSERIA GONORRHOEAE 0 [facility] NEISSERIA GONORRHOEAE Not detected N [facility] TRICHOMONAS VAGINALIS 0 [facility] TRICHOMONAS VAGINALIS Not detected N [facility] Urinalysis macro (dipstick) panel (U)on 01-25-2025 Bilirubin, UA Negative Negative - 4(70) +++ mg/dL [facility] Blood, UA Negative Negative - 50 Regino/mcL [facility] Clarity, UA Clear [facility] Color, UA Yellow [facility] Glucose, UA Negative Negative - 1999(110) ++++ mg/dL [facility] Interpretation and review of laboratory results Normal [facility] Ketones, UA Negative Negative - 160(16) ++++ mg/dL [facility] Leukocytes, UA Negative Negative - 500+++ Dara/mcL [facility] Nitrite, UA Negative Negative - Positive [facility] pH, UA 7 5 - 9 [facility] Protein, UA Negative Negative - 1999(20) ++++ mg/dL [facility] Spec Grav, UA 1.02 1 - 1.03 [facility] Urobilinogen, UA 0.2 0.2 - 12 mg/dL Critical [facility] hospital BOX TESTon 12-03-2024 BOX TEST SENT OUT [facility] BOX1 [facility] BOX2 12/03/2024 [facility] HCG ( test) Ql (U)o n 11-05-2024 Interpretation and review of laboratory results Abnormal [facility] Preg Test, Ur Positive Negative [facility] US OB TRANSVAGINALon 025 US OB TRANSVAGINAL [...] II, MD, PHD at 07-Nov-2024 07:21:38 AM [facility] Normal Not Available Comment on above: Order Comment: US OB TRANSVAGINAL No LMP recorded. Urinalysis macro (dipstick) panel (U)on 11-05-2024 Bilirubin, UA Negative Negative - 4(70) +++ mg/dL [facility] Blood, UA Negative Negative - 50 Regino/mcL [facility] Clarity, UA Clear [facility] Color, UA Yellow [facility] Glucose, UA Negative Negative - 1999(110) ++++ mg/dL [facility] Interpretation and review of laboratory results Normal [facility] Ketones, UA Negative Negative - 160(16) ++++ mg/dL [facility] Leukocytes, UA Negative Negative - 500+++ Dara/mcL [facility] Nitrite, UA Negative Negative - Positive [facility] pH, UA 7 5 - 9 [facility] Protein, UA Negative Negative - 2000(20) ++++ mg/dL [facility] Spec Grav, UA 1.02 1 - 1.03 [facility] Urobilinogen, UA 0.2 0.2 - 12 mg/dL [facility] X-ray reportOrdered By: Gerardo Hutton on 09-21-2024 Study report [facility] [place] [address] XRay Report Signed Patient: Dawn Major MR#: [id number] : 2000 Acct:[id number] Age/Sex: 24 / F ADM Date: 5 Loc: ER Room: Type: [facility] ER Attending Dr: Copies to: Derek [...] Micky Hutton M.D.09/21/2024 9:16 PM Dictation Location: [place] Transcribed By: SHERINE 09/21/242115 Dictated By: Micky Hutton MD 09/21/242114 Signed By: 09/21/[address] [facility] [place] [facility] Work Phone: XR shoulder RT min 2V*on XR shoulder RT min 2V* [facility] [place] [address] XRay Report Signed Patient: Dawn Major MR#: [id number] : 2000 Acct:[id number] Age/Sex: 24 / F ADM Date: 09/21/24 Loc: ER Room: Type: [facility] ER Attending Dr: Copies to: Derek [...] Micky Hutton M.D.09/21/2024 9:16 PM Dictation Location: [place] [address] Transcribed By: SHERINE 09/21/242115 Dictated By: Micky Hutton MD 09/21/242114 Signed By: 09/21/242115 Normal [facility] Laboratory - Chemistry and C hemistry - challengeon 08-26-2024 HCG.intact+Beta subunit Qn <1 mIU/mL [facility] Comment on above: Female (Non- ) 0 - 5 (Postmenopausal) 0 - 8 Female () Weeks of Gestation 3 6 - 71 4 10 - 750 5 910 - 5927 6 465 - 47028 7 1501 -134043 8 96844 -666353 9 23110 -637042 10 50164 -378397 12 53817 -265683 14 26105 - 21299 15 47110 - 21157 16 2561 - 72124 17 3933 - 40999 18 [phone] - [phone] Gavin ECLIA methodology No Panel Informationon 08-26 Performed at: - [address] [id number] Release Of Information Clerk: Mendel Rubin PhD, Phone: [phone] [facility] HCG ( test) Ql (U)o n 08-25-2024 Interpretation and review of laboratory results Normal [facility] Preg Test, Ur Negative Negative [facility] hospital Alanine aminotransferase [En zymatic activity/volume] in Serum or PlasmaOrdered By: Paramjit Yanes on 06-29-2024 ALT [Catalytic activity/Vol] 6 U/L Low [facility] Comment on above: Performed By: #### E CAPO, CBC, CMP ####[facility] [id number] ALT [Catalytic activity/Vol] Alanine aminotransferase [Enzymatic activity/volume] in Serum or Plasma Low [facility] Albumin [Mass/volume] in Ser um or Plasma by Bromocresol green (BCG) dye binding methoOrdered By: Paramjit Yanes on 06-29-2024 Albumin BCG dye [Mass/Vol] 5.1 g/dL 3.5-5.7 [facility] Albumin BCG dye [Mass/Vol] Albumin [Mass/volume] in Serum or Plasma by Bromocresol green (BCG) dye binding metho 3.5-5.7 [facility] Alkaline phosphatase [Enzyma tic activity/volume] in Serum or PlasmaOrdered By: Paramjitjerome Yanes on 06-29-2024 ALP [Catalytic activity/Vol] 43 U/L Normal 34-104 [facility] Comment on above: Performed By: #### E CAPO, CBC, CMP ####[facility] [id number] [place] [id number] [facility] ALP [Catalytic activity/Vol] Alkaline phosphatase [Enzymatic activity/volume] in Serum or Plasma 34-104 [facility] Amphetamine Screen Ql (U)Ord ered By: Paramjit Yanes on 06-29-2024 Amphetamines Ql (U) Amphetamines screen Negativ e [facility] Amphetamines Ql (U) Negative Negative [facility] Appearance of UrineOrdered B y: Paramjit Yanes on 06-29-2024 Appearance (U) Urine appearance Clear [facility] Aspartate aminotransferase [ Enzymatic activity/volume] in Serum or PlasmaOrdered By: Praamjit Yanes on 06-29-2024 AST [Catalytic activity/Vol] 15 U/L Normal 13-39 [facility] Comment on above: Performed By: #### E CAPO, CBC, CMP ####[place] [address] [place] [id number] [facility] AST [Catalytic activity/Vol] Aspartate aminotransferase [Enzymatic activity/volume] in Serum or Plasma [facility] Automated basophil %Ordered By: Paramjit Yanes on 06-29-2024 Basophils/100 WBC (Bld) 0.6 % Normal . [facility] Comment on above: Performed By: #### E CAPO, CBC, CMP ####[place] [address] [place] [id number] [facility] Automated basophil countOrde red By: Paramjit Yanes on 06-29-2024 Basophils (Bld) [#/Vol] 0.0 10*3/uL Normal 0.0-0.2 [facility] Comment on above: Result Comment: PERF ORMED BY: [facility] [address] [place] [id number] PATHOLOGIST BOTTLER HELPER KIERSTEN BYNUM M.D. Performed By: #### E CAPO, CBC, CMP ####[address] Automated blood monocyte cou ntOrdered By: Paramjit Yanes on 06-29-2024 Monocytes (Bld) [#/Vol] 0.3 10*3/uL Normal 0.0-0.8 [facility] Comment on above: Performed By: #### E CAPO, CBC, CMP ####[address] Automated eosinophil %Ordere d By: Paramjit Yanes on 06-29-2024 Eosinophils/100 WBC (Bld) 4.2 % Normal . [facility] Comment on above: Performed By: #### E CAPO, CBC, CMP ####[address] Automated eosinophil countOr dered By: Paramjit Yanes on 06-29-2024 Eosinophils (Bld) [#/Vol] 0.3 10*3/uL Normal 0.0-0.45 [facility] Comment on above: Performed By: #### E CAPO, CBC, CMP ####[address] Automated monocyte %Ordered By: Paramjit Yanes on 06-29-2024 Monocytes/100 WBC (Bld) 4.8 % Normal . [facility] Comment on above: Performed By: #### E CAPO, CBC, CMP ####[address] Automated neutrophil %Ordere d By: Paramjit Yanes on 06-29-2024 Neutrophils/100 WBC (Bld) 68.1 % Normal . [facility] Comment on above: Performed By: #### E CAPO, CBC, CMP ####[address] Bacteria [Presence] in Urine by AutomatedOrdered By: Paramjit Yanes on 06-29-2024 Bacteria Auto Ql (U) Rare [HPF] None Seen [facility] Bacteria Auto Ql (U) Bacteria [Presence] in Urine by Automated None Seen [facility] Barbiturates [Presence] in U rine by Screen methodOrdered By: Paramjit Yanes on 06-29-2024 Barbiturates Screen Ql (U) Negative Negative [facility] Barbiturates Screen Ql (U) Barbiturates [Presence] in Urine by Screen method Negative [facility] Basophils Auto (Bld) [#/Vol] Ordered By: Paramjit Yanes on 06-29-2024 Basophils (Bld) [#/Vol] Automated basophil count 0.0-0.2 [facility] Basophils/100 WBC Auto (Bld) Ordered By: Paramjit Yanes on 06-29-2024 Basophils/100 WBC (Bld) Automated basophil % . [facility] Benzodiazepines Screen Ql (U )Ordered By: Paramjit Yanes on 06-29-2024 Benzodiazepines Ql (U) Negative Negative [facility] Benzodiazepines Ql (U) Benzodiazepines [ Presence] in Urine by Screen method Negative [facility] Benzoylecgonine [Presence] i n Urine by Screen methodOrdered By: Paramjit Yanes on 06-29-2024 Benzoylecgonine Screen Ql (U) Negative Negative [facility] Benzoylecgonine Screen Ql (U) Benzoylecgonine [Presence] in Urine by Screen method Negative [facility] Bilirubin Test strip Ql (U)O rdered By: Paramjit Yanes on 06-29-2024 Bilirubin Ql (U) Negative Negative [facility] Bilirubin Ql (U) Bilirubin.total [Pre sence] in Urine by Test strip Negative [facility] Bilirubin.total [Mass/volume ] in Serum or PlasmaOrdered By: Paramjit Yanes on 06-29-2024 Bilirubin [Mass/Vol] 0.8 mg/dL Normal 0.3-1.0 [facility] Comment on above: Performed By: #### E CAPO, CBC, CMP ####[facility] [id number] [place] [id number] [facility] Bilirubin [Mass/Vol] Bilirubin.total [Mass/volume] in Serum or Plasma 0.3-1.0 [facility] Calcium [Mass/volume] in Ser um or PlasmaOrdered By: Paramjit Yanes on 06-29-2024 Calcium [Mass/Vol] 10.2 mg/dL Normal 8.6-10.3 [facility] Comment on above: Performed By: #### E CAPO, CBC, CMP ####[facility] [id number] [place] [address] [facility] Calcium [Mass/Vol] Calcium [Mass/volume ] in Serum or Plasma 8.6-10.3 [facility] Cannabinoids [Presence] in U rine by Screen methodOrdered By: Paramjit Yanes on 06-29-2024 Cannabinoids Screen Ql (U) Positive High Negative [facility] Comment on above: These are unconfirme d results and should not be used for legal purposes. Drug Cut-Off Concentration: AMPH 1000 ng/mL VENKATA 200 ng/mL BREANNA 200 ng/mL COCM 300 ng/mL OP 300 ng/mL PCP 25 ng/mL THC 20 ng/mL Cannabinoids Screen Ql (U) Cannabinoids [Presence] in Urine by Screen method High Negative [facility] Comment on above: These are unconfirme d results and should not be used for legal purposes. Drug Cut-Off Concentration: AMPH 1000 ng/mL VENAKTA 200 ng/mL BREANNA 200 ng/mL COCM 300 ng/mL OP 300 ng/mL PCP 25 ng/mL THC 20 ng/mL Carbon dioxide, total [Moles /volume] in Serum or PlasmaOrdered By: Paramjit Yanes on 06-29-2024 CO2 [Moles/Vol] 28.6 mmol/L Normal 21.0-31.0 [facility] Comment on above: Performed By: #### E CAPO, CBC, CMP ####[facility] [address] [place] [address] [place] CO2 [Moles/Vol] Carbon dioxide, tota l [Moles/volume] in Serum or Plasma 21.0-31.0 [facility] Chloride [Moles/volume] in S isabel or PlasmaOrdered By: Paramjit Yanes on 06-29-2024 Chloride [Moles/Vol] 105 mmol/L Normal 98-107 [facility] Comment on above: Performed By: #### E CAPO, CBC, CMP ####[address] Chloride [Moles/Vol] Chloride [Moles/vol ume] in Serum or Plasma 98-107 [facility] Color Auto (U)Ordered By: Kevin Yanes on 06-29-2024 Color (U) Color of Urine by Auto Yellow [facility] Color of Urine by AutoOrdere d By: Paramjit Yanes on 06-29-2024 Color (U) Yellow Normal Yellow [facility] Comment on above: Order Comment: Name Collection Type:: Clean-Voided Midstream Performed By: #### U HCG, URDS, ADDONUAPLUS ####[address] Complete Blood Count Auto Di ffon 06-29-2024 Mean Corpuscular HGB Conc 34.6 g/dL Normal 32.0-35.0 [facility] Comment on above: Performed By: #### E CAPO, CBC, CMP ####[address] Monocytes/100 WBC (Bld) 17.44 % Normal 0.00-20.00 [facility] Comment on above: Performed By: #### E CAPO, CBC, CMP ####[address] NRBC% 0.0 /100{WBC} Normal 0-0.5 [facility] Comment on above: Performed By: #### E CAPO, CBC, CMP ####[place] [id number] [facility] Comprehensive Metabolic Pane haseeb 06-29-2024 Albumin [Mass/Vol] 5.1 g/dL Normal 3.5-5.7 [facility] Comment on above: Performed By: #### E CAPO, CBC, CMP ####[address] Creatinine Clr Calc Pharmacy 91.90 Normal [facility] Comment on above: Result Comment: PERF ORMED BY: [facility] [address] [place] [address] PATHOLOGIST [employer] HELPER KIERSTEN BYNUM M.D. Performed By: #### E CAPO, CBC, CMP ####[place] [address] [place] [id number] [facility] GFR/1.73 sq M.predicted MDRD (S/P/Bld) [Vol rate/Area] mL/min/{1.73_m2} Normal [facility] Comment on above: Performed By: #### E CAPO, CBC, CMP ####[address] Creatinine [Mass/volume] in Serum or PlasmaOrdered By: Paramjit Yanes on 06-29-2024 Creatinine [Mass/Vol] 0.62 mg/dL Normal 0.60-1.20 [facility] Comment on above: Performed By: #### E CAPO, CBC, CMP ####[address] Creatinine [Mass/Vol] Creatinine [Mass/v olume] in Serum or Plasma 0.60-1.20 [facility] Dipstick and Microscopicon 1 Bacteria,Urine Rare Normal None Seen [facility] Comment on above: Order Comment: Name Collection Type:: Clean-Voided Midstream Performed By: #### U HCG, URDS, ADDONUAPLUS ####[place] [id number] [facility] Bilirubin,Urine Negative Normal Negative [facility] Comment on above: Order Comment: Name Collection Type:: Clean-Voided Midstream Performed By: #### U HCG, URDS, ADDONUAPLUS ####[place] [id number] [facility] Glucose Ql (U) Normal Normal Normal [facility] Comment on above: Order Comment: Name Collection Type:: Clean-Voided Midstream Performed By: #### U HCG, URDS, ADDONUAPLUS ####[place] [id number] [facility] Hyaline Casts,Urine None Normal 0-8 [facility] Comment on above: Order Comment: Name Collection Type:: Clean-Voided Midstream Performed By: #### U HCG, URDS, ADDONUAPLUS ####[address] Mucus,Urine 4+ Critically abnormal [facility] Comment on above: Order Comment: Name Collection Type:: Clean-Voided Midstream Performed By: #### U HCG, URDS, ADDONUAPLUS ####[address] Nitrite,Urine Negative Normal Negative [facility] Comment on above: Order Comment: Name Collection Type:: Clean-Voided Midstream Performed By: #### U HCG, URDS, ADDONUAPLUS ####[address] Occult Blood,Urine Negative Normal Negative [facility] Comment on above: Order Comment: Name Collection Type:: Clean-Voided Midstream Performed By: #### U HCG, URDS, ADDONUAPLUS ####[address] RBC,Urine 1-2 Normal 0-4 [facility] Comment on above: Order Comment: Name Collection Type:: Clean-Voided Midstream Performed By: #### U HCG, URDS, ADDONUAPLUS ####[place] [id number] [facility] Specificy [place],Urine 1.026 Normal 1.00 1-1.03 0 [facility] Comment on above: Order Comment: Name Collection Type:: Clean-Voided Midstream Performed By: #### U HCG, URDS, ADDONUAPLUS ####[place] [id number] [facility] Squamous Epithelial Cell,Urine 1-2 Normal 0-2 [facility] Comment on above: Order Comment: Name Collection Type:: Clean-Voided Midstream Performed By: #### U HCG, URDS, ADDONUAPLUS ####[address] Urobilinogen,Urine Normal Normal Normal [facility] Comment on above: Order Comment: Name Collection Type:: Clean-Voided Midstream Performed By: #### U HCG, URDS, ADDONUAPLUS ####[address] WBC,Urine 1-2 Normal 0-4 [facility] Comment on above: Order Comment: Name Collection Type:: Clean-Voided Midstream Performed By: #### U HCG, URDS, ADDONUAPLUS ####[address] Drug Screen,Urineon 06-29-20 24 Amphetamine Screen,Urine Negative Normal Negative [facility] Comment on above: Performed By: #### U HCG, URDS, ADDONUAPLUS ####[address] Barbiturate Screen,Urine Negative Normal Negative [facility] Comment on above: Performed By: #### U HCG, URDS, ADDONUAPLUS ####[address] Benzodiazepines Screen,Urine Negative Normal Negative [facility] Comment on above: Performed By: #### U HCG, URDS, ADDONUAPLUS ####[address] Cannabinoid Screen,Urine Positive High Negative [facility] Comment on above: Result Comment: Thes e are unconfirmed results and should not be used for legal purposes. Drug Cut-Off Concentration: AMPH 1000 ng/mL VENKATA 200 ng/mL BREANNA 200 ng/mL COCM 300 ng/mL OP 300 ng/mL PCP 25 ng/mL THC 20 ng/mL PERFORMED BY: [facility] [address] [place] [address] PATHOLOGIST [employer] KIERSTEN BYNUM M.D. Performed By: #### U HCG, URDS, ADDONUAPLUS ####[address] Cocaine Screen,Urine Negative Normal Negative [facility] Comment on above: Performed By: #### U HCG, URDS, ADDONUAPLUS ####[facility] [id number] Opiate Screen,Urine Negative Normal Negative [facility] Comment on above: Performed By: #### U HCG, URDS, ADDONUAPLUS ####[facility] [id number] [place] [id number] [facility] Phencyclidine Screen,Urine Negative Normal Negative [facility] Comment on above: Performed By: #### U HCG, URDS, ADDONUAPLUS ####[facility] [place] [id number] [facility] Eosinophils Auto (Bld) [#/Vo l]Ordered By: Paramjit Yanes on 06-29-2024 Eosinophils (Bld) [#/Vol] Automated eosinophil count 0.0-0.45 [facility] Eosinophils/100 WBC Auto (Bl d)Ordered By: Paramjit Yanes on 06-29-2024 Eosinophils/100 WBC (Bld) Automated eosinophil % . [facility] Epithelial cells.squamous [# /area] in Urine sediment by Automated countOrdered By: Paramjit Yanes on 06-29-2024 Epithelial cells.squamous Auto (Urine sed) [#/Area] 1-2 [HPF] 0-2 [facility] Epithelial cells.squamous Auto (Urine sed) [#/Area] Epithelial cells.squamous [#/area] in Urine sediment by Automated count 0-2 [facility] Erythrocyte distribution wid th Auto (RBC) [Ratio]Ordered By: Paramjit Yanes on 06-29-2024 Erythrocyte distribution width (RBC) [Ratio] Erythrocyte distribution width [Ratio] by Automated count 11.9-15.3 [facility] Erythrocyte distribution wid th [Ratio] by Automated countOrdered By: Paramjit Yanes on 06-29-2024 Erythrocyte distribution width (RBC) [Ratio] 13.0 % Normal 11.9-15.3 [facility] Comment on above: Performed By: #### E CAPO, CBC, CMP ####[facility] Eyy[address] Erythrocytes [#/area] in Uri ne sediment by Automated countOrdered By: Paramjit Yanes on 06-29-2024 RBC Auto (Urine sed) [#/Area] 1-2 [HPF] 0-4 [facility] RBC Auto (Urine sed) [#/Area] Erythrocytes [#/area] in Urine sediment by Automated count 0-4 [facility] Erythrocytes [#/volume] in B lood by Automated countOrdered By: Paramjit Yanes on 06-29-2024 RBC (Bld) [#/Vol] 4.85 10*6/uL Normal 3.60-5.00 [facility] Comment on above: Performed By: #### E CAPO, CBC, CMP ####[place] [address] [place] [address] [facility] Ethanol [Mass/volume] in Ser um or PlasmaOrdered By: Paramjit Yanes on 06-29-2024 Ethanol [Mass/Vol] mg/dL Normal [facility] Comment on above: Performed By: #### E CAPO, CBC, CMP ####[place] [id number] [facility] Ethanol [Mass/Vol] TNP [facility] Comment on above: Test not performed Ethanol [Mass/Vol] Ethanol [Mass/volume ] in Serum or Plasma [facility] Comment on above: Test not performed Ethyl Alcohol Profileon 06-10 Percent Ethanol Not performed Normal [facility] Comment on above: Result Comment: PERF ORMED BY: [facility] [address] [facility] [place] [phone] PATHOLOGIST [employer] KIERSTEN BYNUM M.D. Performed By: #### E CAPO, CBC, CMP ####[place] [address] [place] [phone] [facility] Globulin Calc (S) [Mass/Vol] Ordered By: Paramjit Yaens on 06-29-2024 Globulin (S) [Mass/Vol] Serum globulin m easurement by calculation (mass/volume) [facility] Glucose [Mass/volume] in Ser um or PlasmaOrdered By: Paramjit Yanes on 06-29-2024 Glucose [Mass/Vol] 86 mg/dL Normal 70-100 [facility] Comment on above: ADA recommended refe rence rangeRandom Glucose Reference Range is dependent on time and content of last meal. Glucose of more than 200 mg/dL in a nonstressed, ambulatory subject supports the diagnosis of Diabetes Mellitus. Result Comment: [place] Glucose Reference Range is dependent on time and content of last meal. Glucose of more than 200 mg/dL in a nonstressed, ambulatory subject supports the diagnosis of Diabetes Mellitus. ADA recommended reference range Performed By: #### E CAPO, CBC, CMP ####[facility] [id number] [place] [phone] [facility] Glucose [Mass/Vol] Glucose [Mass/volume ] in Serum or Plasma 70-100 [facility] Comment on above: ADA recommended refe rence rangeRandom Glucose Reference Range is dependent on time and content of last meal. Glucose of more than 200 mg/dL in a nonstressed, ambulatory subject supports the diagnosis of Diabetes Mellitus. Glucose [Mass/volume] in Uri ne by Test stripOrdered By: Paramjit Yanes on 06-29-2024 Glucose Test strip (U) [Mass/Vol] Normal mg/dL Normal [facility] Glucose Test strip (U) [Mass/Vol] Glucose [Mass/volume] in Urine by Test strip Normal [facility] HCG ( test) IA.rapi d Ql (U)Ordered By: Paramjit Yanes on 06-29-2024 HCG ( test) Ql (U) Negative [facility] HCG ( test) Ql (U) Urine human chorionic gonadotropin (hCG) detection by immunoassay [facility] HCG,Urineon 06-29-2024 Beta HCG ( test) Ql (U) Negative Normal [facility] Comment on above: Order Comment: Name Collection Type:: Clean-Voided Midstream Result Comment: PERF ORMED BY: [facility] [address] [place] [phone] PATHOLOGIST [employer] KIERSTEN BYNUM M.D. Performed By: #### U HCG, URDS, ADDONUAPLUS ####[facility] [id number] [place] [phone] [facility] Hematocrit Auto (Bld) [Volum e fraction]Ordered By: Paramjit Yanes on 06-29-2024 Hematocrit (Bld) [Volume fraction] Hematocrit [Volume Fraction] of Blood by Automated count 34.0-46.4 [facility] Hematocrit [Volume Fraction] of Blood by Automated countOrdered By: Paramjit Yanes on 06-29-2024 Hematocrit (Bld) [Volume fraction] 42.2 % Normal 34.0-46.4 [facility] Comment on above: Performed By: #### E CAPO, CBC, CMP ####[facility] [id number] Hemoglobin Test strip Ql (U) Ordered By: Paramjit Yanes on 06-29-2024 Hemoglobin Ql (U) Negative Negative [facility] Hemoglobin Ql (U) Hemoglobin [Presence ] in Urine by Test strip Negative [facility] Hemoglobin [Mass/volume] in BloodOrdered By: Paramjit Yanes on 06-29-2024 Hemoglobin (Bld) [Mass/Vol] 14.6 g/dL Normal 11.8-15.4 [facility] Comment on above: Performed By: #### E CAPO, CBC, CMP ####[address] Hemoglobin (Bld) [Mass/Vol] Hemoglobin [Mass/volume] in Blood 11.8-15.4 [facility] Hyaline casts [#/area] in Ur ine sediment by Automated countOrdered By: Paramjit Yanes on 06-29-2024 Hyaline casts Auto (Urine sed) [#/Area] None [LPF] 0-8 [facility] Hyaline casts Auto (Urine sed) [#/Area] Hyaline casts [#/area] in Urine sediment by Automated count 0-8 [facility] Ketones Test strip Ql (U)Ord ered By: Paramjit Yanes on 06-29-2024 Ketones Ql (U) Ketones [Presence] i n Urine by Test strip Negative [facility] Ketones [Presence] in Urine by Test stripOrdered By: Paramjit Yanes on 06-29-2024 Ketones Ql (U) Negative Normal Negative [facility] Comment on above: Order Comment: Name Collection Type:: Clean-Voided Midstream Performed By: #### U HCG, URDS, ADDONUAPLUS ####[facility] Leukocyte esterase [Presence ] in Urine by Test stripOrdered By: Paramjit Yanes on 06-29-2024 Leukocyte esterase Test strip Ql (U) Negative Normal Negative [facility] Comment on above: Order Comment: Name Collection Type:: Clean-Voided Midstream Performed By: #### U HCG, URDS, ADDONUAPLUS ####[place] [id number] Leukocyte esterase Test strip Ql (U) Leukocyte esterase [Presence] in Urine by Test strip Negative [facility] Leukocytes [#/area] in Urine sediment by Automated countOrdered By: Paramjit Yanes on 06-29-2024 WBC Auto (Urine sed) [#/Area] 1-2 [HPF] 0-4 [facility] WBC Auto (Urine sed) [#/Area] Leukocytes [#/area] in Urine sediment by Automated count 0-4 [facility] Leukocytes [#/volume] correc michael for nucleated erythrocytes in Blood by Automated counOrdered By: Paramjit Yanes on 06-29-2024 WBC corrected for nucl RBC Auto (Bld) [#/Vol] 7.3 10*3/uL 3.8-11.6 [facility] WBC corrected for nucl RBC Auto (Bld) [#/Vol] Leukocytes [#/volume] corrected for nucleated erythrocytes in Blood by Automated coun 3.8-11.6 [facility] Leukocytes [#/volume] in Blo od by Automated countOrdered By: Paramjit Yanes on 06-29-2024 WBC (Bld) [#/Vol] 7.3 10*3/uL Normal 3.8-11.6 [facility] Comment on above: Performed By: #### E CAPO, CBC, CMP ####[facility] [id number] Lymphocytes Auto (Bld) [#/Vo l]Ordered By: Paramjit Yanes on 06-29-2024 Lymphocytes (Bld) [#/Vol] Lymphocytes [#/volume] in Blood by Automated count 1.00-4.8 [facility] Lymphocytes [#/volume] in Bl ood by Automated countOrdered By: Paramjit Yanes on 06-29-2024 Lymphocytes (Bld) [#/Vol] 1.6 10*3/uL Normal 1.00-4.8 [facility] Comment on above: Performed By: #### E CAPO, CBC, CMP ####[facility] [id number] [place] [address] Lymphocytes/100 WBC Auto (Bl d)Ordered By: Paramjit Yanes on 06-29-2024 Lymphocytes/100 WBC (Bld) Lymphocytes/100 leukocytes in Blood by Automated count . [facility] Lymphocytes/100 leukocytes i n Blood by Automated countOrdered By: Paramjit Yanes on 06-29-2024 Lymphocytes/100 WBC (Bld) 22.3 % Normal . [facility] Comment on above: Performed By: #### E CAPO, CBC, CMP ####[address] MCH Auto (RBC) [Entitic mass ]Ordered By: Paramjit Yanes on 06-29-2024 MCH (RBC) [Entitic mass] MCH [Entitic mass] by Automated count 24.7-34.3 [facility] MCH [Entitic mass] by Automa michael countOrdered By: Paramjit Yanes on 06-29-2024 MCH (RBC) [Entitic mass] 30.1 pg Normal 24.7-34.3 [facility] Comment on above: Performed By: #### E CAPO, CBC, CMP ####[facility] [id number] [place] [address] MCHC Auto (RBC) [Mass/Vol]Or dered By: Paramjit Yanes on 06-29-2024 MCHC (RBC) [Mass/Vol] 34.6 g/dL 32.0-35.0 [facility] MCHC (RBC) [Mass/Vol] MCHC [Mass/volume] by Automated count 32.0-35.0 [facility] MCV Auto (RBC) [Entitic vol] Ordered By: Paramjit Yanes on 06-29-2024 MCV (RBC) [Entitic vol] MCV [Entitic vol ume] by Automated count 80-100 [facility] MCV [Entitic volume] by Auto mated countOrdered By: Paramjit Yanes on 06-29-2024 MCV (RBC) [Entitic vol] 87.2 fL Normal 80-[address] [facility] Comment on above: Performed By: #### E CAPO, CBC, CMP ####[facility] [id number] [place] [id number] [facility] Monocyte distribution width [Entitic volume] in Blood by AutomatedOrdered By: Paramjit Yanes on 06-29-2024 Monocyte distribution width Auto (Bld) [Entitic vol] 17.44 % 0.00-20.00 [facility] Monocyte distribution width Auto (Bld) [Entitic vol] Monocyte distribution width [Entitic volume] in Blood by Automated 0.00-20.00 [facility] Monocytes Auto (Bld) [#/Vol] Ordered By: Paramjit Yanes on 06-29-2024 Monocytes (Bld) [#/Vol] Automated blood monocyte count 0.0-0.8 [facility] Monocytes/100 WBC Auto (Bld) Ordered By: Paramjit Yanes on 06-29-2024 Monocytes/100 WBC (Bld) Automated monocyte % . [facility] Mucus [Presence] in Urine by AutomatedOrdered By: Paramjit Yanes on 06-29-2024 Mucus Auto Ql (U) 4+ [LPF] Abnormal [facility] Mucus Auto Ql (U) Mucus [Presence] in Urine by Automated Abnormal [facility] Neutrophils Auto (Bld) [#/Vo l]Ordered By: Paramjit Yanes on 06-29-2024 Neutrophils (Bld) [#/Vol] Neutrophils [#/volume] in Blood by Automated count 1.8-7.7 [facility] Neutrophils [#/volume] in Bl ood by Automated countOrdered By: Paramjit Yanes on 06-29-2024 Neutrophils (Bld) [#/Vol] 5.0 10*3/uL Normal 1.8-7.7 [facility] Comment on above: Performed By: #### E CAPO, CBC, CMP ####[facility] [id number] [place] [address] [facility] Neutrophils/100 WBC Auto (Bl d)Ordered By: Paramjit Yanes on 06-29-2024 Neutrophils/100 WBC (Bld) Automated neutrophil % . [facility] Nitrite Test strip Ql (U)Ord ered By: Paramjit Yanes on 06-29-2024 Nitrite Ql (U) Negative Negative [facility] Nitrite Ql (U) Nitrite [Presence] i n Urine by Test strip Negative [facility] No Panel InformationOrdered By: Paramjit Yanes on 06-29-2024 Estimated GFR (CKD-EPI) > 60.0 mL/Min [facility] Creatinine Clearance (Chem 91.90 [facility] Nucleated erythrocytes [Pres ence] in Blood by Automated countOrdered By: Paramjit Yanes on 06-29-2024 Nucleated RBC Auto Ql (Bld) 0.0 /100{WBC} 0-0.5 [facility] Nucleated RBC Auto Ql (Bld) Nucleated erythrocytes [Presence] in Blood by Automated count 0-0.5 [facility] Opiates [Presence] in Urine by Screen methodOrdered By: Paramjit Yanes on 06-29-2024 Opiates Screen Ql (U) Negative Negative [facility] Opiates Screen Ql (U) Opiates [Presence] in Urine by Screen method Negative [facility] Phencyclidine Screen Ql (U)O rdered By: Paramjit Yanes on 06-29-2024 Phencyclidine Ql (U) Negative Negative [facility] Phencyclidine Ql (U) Phencyclidine [Pres ence] in Urine by Screen method Negative [facility] Platelet mean volume Auto (B ld) [Entitic vol]Ordered By: Paramjit Yanes on 06-29-2024 Platelet mean volume (Bld) [Entitic vol] Platelet mean volume [Entitic volume] in Blood by Automated count 6.3-10.7 [facility] Platelet mean volume [Entiti c volume] in Blood by Automated countOrdered By: Paramjit Yanes on 06-29-2024 Platelet mean volume (Bld) [Entitic vol] 7.6 fL Normal 6.3-10.7 [facility] Comment on above: Performed By: #### E CAPO, CBC, CMP ####[facility] [address] [place] [address] [place] Platelets Auto (Bld) [#/Vol] Ordered By: Paramjit Yanes on 06-29-2024 Platelets (Bld) [#/Vol] Platelets [#/vol ume] in Blood by Automated count 150-450 [facility] Platelets [#/volume] in Bloo d by Automated countOrdered By: Paramjit Yanes on 06-29-2024 Platelets (Bld) [#/Vol] 278 10*3/uL Normal 150-450 [facility] Comment on above: Performed By: #### E CAPO CBC, CMP ####[facility] [id number] [place] [address] [facility] Potassium [Moles/volume] in Serum or PlasmaOrdered By: Paramjit Yanes on 06-29-2024 Potassium [Moles/Vol] 4.1 mmol/L Normal 3.5-5.1 [facility] Comment on above: Performed By: #### E CAPO CBC, CMP ####[address] [facility] Potassium [Moles/Vol] Potassium [Moles/v olume] in Serum or Plasma 3.5-5.1 [facility] Protein Test strip (U) [Mass /Vol]Ordered By: Paramjit Yanes on 06-29-2024 Protein (U) [Mass/Vol] Protein [Mass/vol ume] in Urine by Test strip High Negative [facility] Protein [Mass/volume] in Ser um or PlasmaOrdered By: Paramjit Yanes on 06-29-2024 Protein [Mass/Vol] 8.1 g/dL Normal 6.4-8.9 [facility] Comment on above: Performed By: #### E CAPO CBC, CMP ####[address] [address] [place] Protein [Mass/Vol] Protein [Mass/volume ] in Serum or Plasma 6.4-8.9 [facility] Protein [Mass/volume] in Uri ne by Test stripOrdered By: Paramjit Yanes on 06-29-2024 Protein (U) [Mass/Vol] 20 mg/dL High Negative [facility] Comment on above: Order Comment: Name Collection Type:: Clean-Voided Midstream Performed By: #### U HCG, URDS, ADDONUAPLUS ####[place] [address] RBC Auto (Bld) [#/Vol]Ordere d By: Paramjit Yanes on 06-29-2024 RBC (Bld) [#/Vol] Erythrocytes [#/volu me] in Blood by Automated count 3.60-5.00 [facility] Serum globulin measurement b y calculation (mass/volume)Ordered By: Paramjit Yanes on 06-29-2024 Globulin (S) [Mass/Vol] 3.0 g/dL Normal F [facility] Comment on above: Performed By: #### E CAPO, CBC, CMP ####[address] Serum or plasma albumin/glob ulin mass ratioOrdered By: Paramjit Yanes on 06-29-2024 Albumin/Globulin [Mass ratio] 1.7 {ratio} Normal [facility] Comment on above: Performed By: #### E CAPO, CBC, CMP ####[facility] [address] [place] [address] Albumin/Globulin [Mass ratio] Serum or plasma albumin/globulin mass ratio [facility] Serum or plasma anion gap de terminationOrdered By: Paramjit Yanes on 06-29-2024 Anion gap [Moles/Vol] 8.5 mmol/L Normal 6.0-15.0 [facility] Comment on above: Performed By: #### E CAPO, CBC, CMP ####[facility] [id number] [place] [address] Anion gap [Moles/Vol] Serum or plasma an ion gap determination 6.0-15.0 [facility] Sodium [Moles/volume] in Ser um or PlasmaOrdered By: Paramjit Yanes on 06-29-2024 Sodium [Moles/Vol] 138 mmol/L Normal 136-145 [facility] Comment on above: Performed By: #### E CAPO, CBC, CMP ####[place] [address] [place] [id number] [facility] Sodium [Moles/Vol] Sodium [Moles/volume ] in Serum or Plasma 136-145 [facility] Specific gravity Test strip (U) [Rel density]Ordered By: Paramjit Yanes on 06-29-2024 Specific gravity (U) [Rel density] 1.026 1.001-1.03 0 [facility] Specific gravity (U) [Rel density] Specific gravity of Urine by Test strip 1.001-1.03 0 [facility] Urea nitrogen [Mass/volume] in Serum or PlasmaOrdered By: Paramjit Yanes on 06-29-2024 Urea nitrogen [Mass/Vol] 9 mg/dL Normal 04-02 [facility] Comment on above: Performed By: #### E CAPO, CBC, CMP ####[place] [address] [place] [phone] [facility] Urea nitrogen [Mass/Vol] Urea nitrogen [Mass/volume] in Serum or Plasma 04-02 [facility] Urine appearanceOrdered By: Paramjit Yanes on 06-29-2024 Appearance (U) Clear Normal Clear [facility] Comment on above: Order Comment: Name Collection Type:: Clean-Voided Midstream Performed By: #### U HCG, URDS, ADDONUAPLUS ####[facility] [id number] [place] [id number] [facility] Urobilinogen Test strip (U) [Mass/Vol]Ordered By: Paramjit Yanes on 06-29-2024 Urobilinogen (U) [Mass/Vol] Normal mg/dL Normal [facility] Urobilinogen (U) [Mass/Vol] Urobilinogen [Mass/volume] in Urine by Test strip Normal [facility] WBC Auto (Bld) [#/Vol]Ordere d By: Paramjit Yanes on 06-29-2024 WBC (Bld) [#/Vol] Leukocytes [#/volume ] in Blood by Automated count 3.8-11.6 [facility] pH Test strip (U)Ordered By: Paramjit Yanes on 06-29-2024 pH (U) pH of Urine by Test strip 5.0-9.0 [facility] pH of Urine by Test stripOrd ered By: Paramjitjerome Yanes on 06-29-2024 pH (U) 6.5 [pH] Normal 5.0-9.0 [facility] Comment on above: Order Comment: Name Collection Type:: Clean-Voided Midstream Performed By: #### U HCG, URDS, ADDONUAPLUS ####[address] Alanine aminotransferase [En zymatic activity/volume] in Serum or PlasmaOrdered By: Derek Phipps on 04-17-2024 ALT [Catalytic activity/Vol] 8 U/L Normal 7-52 [facility] Comment on above: Performed By: #### H EPATIC, LIPASE, CBC, BMP ####[address] Albumin [Mass/volume] in Ser um or Plasma by Bromocresol green (BCG) dye binding methoOrdered By: Derek Phipps on 04-17-2024 Albumin BCG dye [Mass/Vol] 4.7 g/dL 3.5-5.7 [facility] Alkaline phosphatase [Enzyma tic activity/volume] in Serum or PlasmaOrdered By: Derek Phipps on 04-17-2024 ALP [Catalytic activity/Vol] 40 U/L Normal 34-104 [facility] Comment on above: Performed By: #### H EPATIC, LIPASE, CBC, BMP ####[address] Amphetamine Screen Ql (U)Ord ered By: Derek Phipps on 04-17-2024 Amphetamines Ql (U) Negative Negative [facility] Aspartate aminotransferase [ Enzymatic activity/volume] in Serum or PlasmaOrdered By: Derek Phipps on 04-17-2024 AST [Catalytic activity/Vol] 15 U/L Normal 13-39 [facility] Comment on above: Performed By: #### H EPATIC, LIPASE, CBC, BMP ####[address] Automated basophil %Ordered By: Derek Phipps on 04-17-2024 Basophils/100 WBC (Bld) 0.3 % Normal . [facility] Comment on above: Performed By: #### H EPATIC, LIPASE, CBC, BMP ####[address] Automated basophil countOrde red By: Derek Phipps on 04-17-2024 Basophils (Bld) [#/Vol] 0.0 10*3/uL Normal 0.0-0.2 [facility] Comment on above: Result Comment: PERF ORMED BY: [facility] [address] [place] [address] PATHOLOGIST [employer] KIERSTEN BYNUM M.D. Performed By: #### H EPATIC, LIPASE, CBC, BMP ####[address] Automated blood monocyte cou ntOrdered By: Derek Phipps on 04-17-2024 Monocytes (Bld) [#/Vol] 0.3 10*3/uL Normal 0.0-0.8 [facility] Comment on above: Performed By: #### H EPATIC, LIPASE, CBC, BMP ####[address] Automated eosinophil %Ordere d By: Derek Phipps on 04-17-2024 Eosinophils/100 WBC (Bld) 1.8 % Normal . [facility] Comment on above: Performed By: #### H EPATIC, LIPASE, CBC, BMP ####[address] Automated eosinophil countOr dered By: Derek Phipps on 04-17-2024 Eosinophils (Bld) [#/Vol] 0.2 10*3/uL Normal 0.0-0.45 [facility] Comment on above: Performed By: #### H EPATIC, LIPASE, CBC, BMP ####[address] Automated monocyte %Ordered By: Derek Phipps on 04-17-2024 Monocytes/100 WBC (Bld) 3.4 % Normal . [facility] Comment on above: Performed By: #### H EPATIC, LIPASE, CBC, BMP ####[place] [address] Automated neutrophil %Ordere d By: Derek Phipps on 04-17-2024 Neutrophils/100 WBC (Bld) 83.6 % Normal . [facility] Comment on above: Performed By: #### H EPATIC, LIPASE, CBC, BMP ####[address] Bacteria [Presence] in Urine by AutomatedOrdered By: Derek Phipps on 04-17-2024 Bacteria Auto Ql (U) None seen [HPF] None Seen [facility] Barbiturates [Presence] in U rine by Screen methodOrdered By: Derek Phipps on 04-17-2024 Barbiturates Screen Ql (U) Negative Negative [facility] Basic Metabolic Panelon Creatinine Clr Calc Pharmacy 94.59 Normal [facility] Comment on above: Performed By: #### H EPATIC, LIPASE, CBC, BMP ####[address] GFR/1.73 sq M.predicted MDRD (S/P/Bld) [Vol rate/Area] mL/min/{1.73_m2} Normal [facility] Comment on above: Performed By: #### H EPATIC, LIPASE, CBC, BMP ####[address] Benzodiazepines Screen Ql (U )Ordered By: Derek Phipps on 04-17-2024 Benzodiazepines Ql (U) Negative Negative [facility] Benzoylecgonine [Presence] i n Urine by Screen methodOrdered By: Derek Phipps on 04-17-2024 Benzoylecgonine Screen Ql (U) Negative Negative [facility] Bilirubin Test strip Ql (U)O rdered By: Derek Phipps on 04-17-2024 Bilirubin Ql (U) Negative Negative [facility] Bilirubin.direct [Mass/volum e] in Serum or PlasmaOrdered By: Derek Phipps on 04-17-2024 Bilirubin.direct [Mass/Vol] 0.10 mg/dL 0.03-0.18 [facility] Bilirubin.total [Mass/volume ] in Serum or PlasmaOrdered By: Derek Phipps on 04-17-2024 Bilirubin [Mass/Vol] 0.6 mg/dL Normal 0.3-1.0 [facility] Comment on above: Performed By: #### H EPATIC, LIPASE, CBC, BMP ####[facility] [id number] [place] [id number] [facility] Calcium [Mass/volume] in Ser um or PlasmaOrdered By: eDrek Phipps on 04-17-2024 Calcium [Mass/Vol] 9.5 mg/dL Normal 8.6-10.3 [facility] Comment on above: Performed By: #### H EPATIC, LIPASE, CBC, BMP ####[place] [address] [place] [id number] [facility] Cannabinoids [Presence] in U rine by Screen methodOrdered By: Derek Phipps on 04-17-2024 Cannabinoids Screen Ql (U) Positive High Negative [facility] Comment on above: These are unconfirme d results and should not be used for legal purposes. Drug Cut-Off Concentration: AMPH 1000 ng/mL VENKATA 200 ng/mL BREANNA 200 ng/mL COCM 300 ng/mL OP 300 ng/mL PCP 25 ng/mL THC 20 ng/mL Carbon dioxide, total [Moles /volume] in Serum or PlasmaOrdered By: Derek Phipps on 04-17-2024 CO2 [Moles/Vol] 29.5 mmol/L Normal 21.0-31.0 [facility] Comment on above: Performed By: #### H EPATIC, LIPASE, CBC, BMP ####[place] [address] [place] [phone] [facility] Chloride [Moles/volume] in S isabel or PlasmaOrdered By: Derek Phipps on 04-17-2024 Chloride [Moles/Vol] 105 mmol/L Normal 98-107 [facility] Comment on above: Performed By: #### H EPATIC, LIPASE, CBC, BMP ####[place] [address] Color of Urine by AutoOrdere d By: Derek Phipps on 04-17-2024 Color (U) Yellow Normal Yellow [facility] Comment on above: Order Comment: Name Collection Type:: Clean-Voided Midstream Performed By: #### U HCG, ADDONUAPLUS, URDS #### [facility] [address] Complete Blood Count Auto Di ffon 04-17-2024 Mean Corpuscular HGB Conc 33.9 g/dL Normal 32.0-35.0 [facility] Comment on above: Performed By: #### H EPATIC, LIPASE, CBC, BMP ####[place] [address] Monocytes/100 WBC (Bld) 19.53 % Normal 0.00-20.00 [facility] Comment on above: Performed By: #### H EPATIC, LIPASE, CBC, BMP ####[address] NRBC% 0.0 /100{WBC} Normal 0-0.5 [facility] Comment on above: Performed By: #### H EPATIC, LIPASE, CBC, BMP ####[address] Creatinine [Mass/volume] in Serum or PlasmaOrdered By: Derek Phipps on 04-17-2024 Creatinine [Mass/Vol] 0.62 mg/dL Normal 0.60-1.20 [facility] Comment on above: Performed By: #### H EPATIC, LIPASE, CBC, BMP ####[address] Dipstick and Microscopicon 0 04-17-2024 Bacteria,Urine None Seen Normal None Seen [facility] Comment on above: Order Comment: Name Collection Type:: Clean-Voided Midstream Performed By: #### U HCG, ADDONUAPLUS, URDS #### [address] Bilirubin,Urine Negative Normal Negative [facility] Comment on above: Order Comment: Name Collection Type:: Clean-Voided Midstream Performed By: #### U HCG, ADDONUAPLUS, URDS #### [facility] [address] [place] [address] Glucose Ql (U) Normal Normal Normal [facility] Comment on above: Order Comment: Name Collection Type:: Clean-Voided Midstream Performed By: #### U HCG, ADDONUAPLUS, URDS #### [facility] [address] [place] [address] [place] Hyaline Casts,Urine None Normal 0-8 [facility] Comment on above: Order Comment: Name Collection Type:: Clean-Voided Midstream Performed By: #### U HCG, ADDONUAPLUS, URDS #### [facility] [address] [place] [address] Mucus,Urine 4+ Critically abnormal [facility] Comment on above: Order Comment: Name Collection Type:: Clean-Voided Midstream Performed By: #### U HCG, ADDONUAPLUS, URDS #### [address] Nitrite,Urine Negative Normal Negative [facility] Comment on above: Order Comment: Name Collection Type:: Clean-Voided Midstream Performed By: #### U HCG, ADDONUAPLUS, URDS #### [address] Occult Blood,Urine Negative Normal Negative [facility] Comment on above: Order Comment: Name Collection Type:: Clean-Voided Midstream Performed By: #### U HCG, ADDONUAPLUS, URDS #### [address] Protein,Urine Trace High Negative [facility] Comment on above: Order Comment: Name Collection Type:: Clean-Voided Midstream Performed By: #### U HCG, ADDONUAPLUS, URDS #### [facility] [address] [place] [address] RBC,Urine 1-2 Normal 0-4 [facility] Comment on above: Order Comment: Name Collection Type:: Clean-Voided Midstream Performed By: #### U HCG, ADDONUAPLUS, URDS #### [address] Specificy [place],Urine 1.020 Normal 1.00 1-1.03 0 [facility] Comment on above: Order Comment: Name Collection Type:: Clean-Voided Midstream Performed By: #### U HCG, ADDONUAPLUS, URDS #### [address] Squamous Epithelial Cell,Urine 3-4 High 0-2 [facility] Comment on above: Order Comment: Name Collection Type:: Clean-Voided Midstream Performed By: #### U HCG, ADDONUAPLUS, URDS #### [address] Urobilinogen,Urine Normal Normal Normal [facility] Comment on above: Order Comment: Name Collection Type:: Clean-Voided Midstream Performed By: #### U HCG, ADDONUAPLUS, URDS #### [address] WBC,Urine 1-2 Normal 0-4 [facility] Comment on above: Order Comment: Name Collection Type:: Clean-Voided Midstream Performed By: #### U HCG, ADDONUAPLUS, URDS #### [address] Drug Screen,Urineon 04-17-20 24 Amphetamine Screen,Urine Negative Normal Negative [facility] Comment on above: Performed By: #### U HCG, ADDONUAPLUS, URDS #### [address] Barbiturate Screen,Urine Negative Normal Negative [facility] Comment on above: Performed By: #### U HCG, ADDONUAPLUS, URDS #### [address] Benzodiazepines Screen,Urine Negative Normal Negative [facility] Comment on above: Performed By: #### U HCG, ADDONUAPLUS, URDS #### [address] Cannabinoid Screen,Urine Positive High Negative [facility] Comment on above: Result Comment: Thes e are unconfirmed results and should not be used for legal purposes. Drug Cut-Off Concentration: AMPH 1000 ng/mL VENKATA 200 ng/mL BREANNA 200 ng/mL COCM 300 ng/mL OP 300 ng/mL PCP 25 ng/mL THC 20 ng/mL PERFORMED BY: [place] [address] PATHOLOGIST [employer] KIERSTEN BYNUM M.D. Performed By: #### U HCG, ADDONUAPLUS, URDS #### [address] Cocaine Screen,Urine Negative Normal Negative [facility] Comment on above: Performed By: #### U HCG, ADDONUAPLUS, URDS #### [address] Opiate Screen,Urine Negative Normal Negative [facility] Comment on above: Performed By: #### U HCG, ADDONUAPLUS, URDS #### [address] Phencyclidine Screen,Urine Negative Normal Negative [facility] Comment on above: Performed By: #### U HCG, ADDONUAPLUS, URDS #### [address] ECG 12 lead ECGon 04-17-2024 ECG 12 lead ECG [facility] [place] [address] [place] [address] Electrocardiograph Report Signed Patient: Dawn Major MR#: [id number] : 2000 Acct:[id number] Age/Sex: 24 / F ADM Date: 04/17/24 Loc: ER Room: Type: [facility] ER Attending Dr: Ordering Provider: Derek [...] Anterior leads Confirmed by Adilia Jeronimo MD ([id number]) on 04/17/2024 6:03:08 PM Referred By: Electronically Signed By: Adilia Jeronimo MD Transcribed By: MUS Signed By Adilia Jeronimo MD 06/02 5347 Normal [facility] Epithelial cells.squamous [# /area] in Urine sediment by Automated countOrdered By: Derek Phipps on 04-17-2024 Epithelial cells.squamous Auto (Urine sed) [#/Area] 3-4 [HPF] High 0-2 [facility] Erythrocyte distribution wid th [Ratio] by Automated countOrdered By: Derek Phipps on 04-17-2024 Erythrocyte distribution width (RBC) [Ratio] 13.0 % Normal 11.9-15.3 [facility] Comment on above: Performed By: #### H EPATIC, LIPASE, CBC, BMP ####[facility] [id number] Erythrocytes [#/area] in Uri ne sediment by Automated countOrdered By: Derek Phipps on 04-17-2024 RBC Auto (Urine sed) [#/Area] 1-2 [HPF] 0-4 [facility] Erythrocytes [#/volume] in B lood by Automated countOrdered By: Derek Phipps on 04-17-2024 RBC (Bld) [#/Vol] 4.66 10*6/uL Normal 3.60-5.00 [facility] Comment on above: Performed By: #### H EPATIC, LIPASE, CBC, BMP ####[facility] [id number] [place] [id number] [facility] Glucose [Mass/volume] in Ser um or PlasmaOrdered By: Derek Phipps on 04-17-2024 Glucose [Mass/Vol] 95 mg/dL Normal 70-100 [facility] Comment on above: ADA recommended refe rence rangeRandom Glucose Reference Range is dependent on time and content of last meal. Glucose of more than 200 mg/dL in a nonstressed, ambulatory subject supports the diagnosis of Diabetes Mellitus. Result Comment: [facility] Glucose Reference Range is dependent on time and content of last meal. Glucose of more than 200 mg/dL in a nonstressed, ambulatory subject supports the diagnosis of Diabetes Mellitus. ADA recommended reference range Performed By: #### H EPATIC, LIPASE, CBC, BMP ####[facility] [id number] Glucose [Mass/volume] in Uri ne by Test stripOrdered By: Derek Phipps on 04-17-2024 Glucose Test strip (U) [Mass/Vol] Normal mg/dL Normal [facility] HCG ( test) IA.rapi d Ql (U)Ordered By: Derek Phipps on 04-17-2024 HCG ( test) Ql (U) Negative [facility] HCG,Urineon 04-17-2024 Beta HCG ( test) Ql (U) Negative Normal [facility] Comment on above: Order Comment: Name Collection Type:: Clean-Voided Midstream Result Comment: PERF ORMED BY: [facility] [address] [place] [address] PATHOLOGIST [employer] KIERSTEN BYNUM M.D. Performed By: #### U HCG, ADDONUAPLUS, URDS #### [facility] [address] Hematocrit [Volume Fraction] of Blood by Automated countOrdered By: Derek Phipps on 04-17-2024 Hematocrit (Bld) [Volume fraction] 40.8 % Normal 34.0-46.4 [facility] Comment on above: Performed By: #### H EPATIC, LIPASE, CBC, BMP ####[facility] [id number] Hemoglobin Test strip Ql (U) Ordered By: Derek Phipps on 04-17-2024 Hemoglobin Ql (U) Negative Negative [facility] Hemoglobin [Mass/volume] in BloodOrdered By: Derek Phipps on 04-17-2024 Hemoglobin (Bld) [Mass/Vol] 13.8 g/dL Normal 11.8-15.4 [facility] Comment on above: Performed By: #### H EPATIC, LIPASE, CBC, BMP ####[place] [address] Hepatic Panelon 04-17-2024 Albumin [Mass/Vol] 4.7 g/dL Normal 3.5-5.7 [facility] Comment on above: Performed By: #### H EPATIC, LIPASE, CBC, BMP ####[address] Bilirubin,Indirect 0.5 mg/dL Normal [facility] Comment on above: Performed By: #### H EPATIC, LIPASE, CBC, BMP ####[address] Bilirubin.indirect [Mass/Vol] 0.10 mg/dL Normal 0.03-0.18 [facility] Comment on above: Performed By: #### H EPATIC, LIPASE, CBC, BMP ####[address] Hyaline casts [#/area] in Ur ine sediment by Automated countOrdered By: Derek Phipps on 04-17-2024 Hyaline casts Auto (Urine sed) [#/Area] None [LPF] 0-8 [facility] Ketones [Presence] in Urine by Test stripOrdered By: Derek Phipps on 04-17-2024 Ketones Ql (U) Negative Normal Negative [facility] Comment on above: Order Comment: Name Collection Type:: Clean-Voided Midstream Performed By: #### U HCG, ADDONUAPLUS, URDS #### [facility] [address] Leukocyte esterase [Presence ] in Urine by Test stripOrdered By: Derek Phipps on 04-17-2024 Leukocyte esterase Test strip Ql (U) Negative Normal Negative [facility] Comment on above: Order Comment: Name Collection Type:: Clean-Voided Midstream Performed By: #### U HCG, ADDONUAPLUS, URDS #### [facility] [address] Leukocytes [#/area] in Urine sediment by Automated countOrdered By: Derek Phipps on 04-17-2024 WBC Auto (Urine sed) [#/Area] 1-2 [HPF] 0-4 [facility] Leukocytes [#/volume] correc michael for nucleated erythrocytes in Blood by Automated counOrdered By: Derek Phipps on 04-17-2024 WBC corrected for nucl RBC Auto (Bld) [#/Vol] 8.7 10*3/uL 3.8-11.6 [facility] Leukocytes [#/volume] in Blo od by Automated countOrdered By: Derek Phipps on 04-17-2024 WBC (Bld) [#/Vol] 8.7 10*3/uL Normal 3.8-11.6 [facility] Comment on above: Performed By: #### H EPATIC, LIPASE, CBC, BMP ####[place] [address] [place] [id number] [facility] Lipase [Enzymatic activity/v olume] in Serum or PlasmaOrdered By: Derek Phipps on 04-17-2024 Lipase [Catalytic activity/Vol] 20.0 U/L Normal 11.0-82.0 [facility] Comment on above: Result Comment: PERF ORMED BY: [facility] [address] [place] [id number] PATHOLOGIST [employer] KIERSTEN BYNUM M.D. Performed By: #### H EPATIC, LIPASE, CBC, BMP ####[place] [id number] [facility] Lymphocytes [#/volume] in Bl ood by Automated countOrdered By: Derek Phipps on 04-17-2024 Lymphocytes (Bld) [#/Vol] 0.9 10*3/uL Low 1.00-4.8 [facility] Comment on above: Performed By: #### H EPATIC, LIPASE, CBC, BMP ####[facility] [id number] [place] [id number] [place] Lymphocytes/100 leukocytes i n Blood by Automated countOrdered By: Derek Phipps on 04-17-2024 Lymphocytes/100 WBC (Bld) 10.9 % Normal . [facility] Comment on above: Performed By: #### H EPATIC, LIPASE, CBC, BMP ####[address] MCH [Entitic mass] by Automa michael countOrdered By: Derek Phipps on 04-17-2024 MCH (RBC) [Entitic mass] 29.7 pg Normal 24.7-34.3 [facility] Comment on above: Performed By: #### H EPATIC, LIPASE, CBC, BMP ####[address] MCHC Auto (RBC) [Mass/Vol]Or dered By: Derek Phipps on 04-17-2024 MCHC (RBC) [Mass/Vol] 33.9 g/dL 32.0-35.0 [facility] MCV [Entitic volume] by Auto mated countOrdered By: Derek Phipps on 04-17-2024 MCV (RBC) [Entitic vol] 87.6 fL Normal 80-[address] [facility] Comment on above: Performed By: #### H EPATIC, LIPASE, CBC, BMP ####[address] Monocyte distribution width [Entitic volume] in Blood by AutomatedOrdered By: Derek Phipps on 04-17-2024 Monocyte distribution width Auto (Bld) [Entitic vol] 19.53 % 0.00-20.00 [facility] Mucus [Presence] in Urine by AutomatedOrdered By: Derek Phipps on 04-17-2024 Mucus Auto Ql (U) 4+ [LPF] Abnormal [facility] Neutrophils [#/volume] in Bl ood by Automated countOrdered By: Derek Phipps on 04-17-2024 Neutrophils (Bld) [#/Vol] 7.3 10*3/uL Normal 1.8-7.7 [facility] Comment on above: Performed By: #### H EPATIC, LIPASE, CBC, BMP ####[address] Nitrite Test strip Ql (U)Ord ered By: Derek Phipps on 04-17-2024 Nitrite Ql (U) Negative Negative [facility] No Panel InformationOrdered By: Derek Phipps on 04-17-2024 Estimated GFR (CKD-EPI) > 60.0 mL/Min [facility] Creatinine Clearance (Chem 94.59 [facility] Nucleated erythrocytes [Pres ence] in Blood by Automated countOrdered By: Derek Phipps on 04-17-2024 Nucleated RBC Auto Ql (Bld) 0.0 /100{WBC} 0-0.5 [facility] Opiates [Presence] in Urine by Screen methodOrdered By: Derek Phipps on 04-17-2024 Opiates Screen Ql (U) Negative Negative [facility] Phencyclidine Screen Ql (U)O rdered By: Derek Phipps on 04-17-2024 Phencyclidine Ql (U) Negative Negative [facility] Platelet mean volume [Entiti c volume] in Blood by Automated countOrdered By: Derek Phipps on 04-17-2024 Platelet mean volume (Bld) [Entitic vol] 7.8 fL Normal 6.3-10.7 [facility] Comment on above: Performed By: #### H EPATIC, LIPASE, CBC, BMP ####[facility] [id number] [place] [id number] [facility] Platelets [#/volume] in Bloo d by Automated countOrdered By: Derek Phipps on 04-17-2024 Platelets (Bld) [#/Vol] 253 10*3/uL Normal 150-450 [facility] Comment on above: Performed By: #### H EPATIC, LIPASE, CBC, BMP ####[place] [address] [place] [id number] [facility] Potassium [Moles/volume] in Serum or PlasmaOrdered By: Derek Phipps on 04-17-2024 Potassium [Moles/Vol] 3.8 mmol/L Normal 3.5-5.1 [facility] Comment on above: Performed By: #### H EPATIC, LIPASE, CBC, BMP ####[facility] [id number] [place] [id number] [facility] Protein Test strip (U) [Mass /Vol]Ordered By: Derek Phipps on 04-17-2024 Protein (U) [Mass/Vol] Trace mg/dL High Negative [facility] Protein [Mass/volume] in Ser um or PlasmaOrdered By: Derek Phipps on 04-17-2024 Protein [Mass/Vol] 7.4 g/dL Normal 6.4-8.9 [facility] Comment on above: Performed By: #### H EPATIC, LIPASE, CBC, BMP ####[place] [address] Serum globulin measurement b y calculation (mass/volume)Ordered By: Derek Phipps on 04-17-2024 Globulin (S) [Mass/Vol] 2.7 g/dL Normal F [facility] Comment on above: Performed By: #### H EPATIC, LIPASE, CBC, BMP ####[address] Serum or plasma albumin/glob ulin mass ratioOrdered By: Derek Phipps on 04-17-2024 Albumin/Globulin [Mass ratio] 1.7 {ratio} Normal [facility] Comment on above: Performed By: #### H EPATIC, LIPASE, CBC, BMP ####[address] Serum or plasma anion gap de terminationOrdered By: Derek Phipps on 04-17-2024 Anion gap [Moles/Vol] 9.3 mmol/L Normal 6.0-15.0 [facility] Comment on above: Performed By: #### H EPATIC, LIPASE, CBC, BMP ####[address] Serum or plasma non-glucuron idated bilirubin measurement (mass/volume)Ordered By: Derek Phipps on 04-17-2024 Bilirubin.indirect [Mass/Vol] 0.5 mg/dL [facility] Sodium [Moles/volume] in Ser um or PlasmaOrdered By: Derek Phipps on 04-17-2024 Sodium [Moles/Vol] 140 mmol/L Normal 136-145 [facility] Comment on above: Performed By: #### H EPATIC, LIPASE, CBC, BMP ####[address] Specific gravity Test strip (U) [Rel density]Ordered By: Derek Phipps on 04-17-2024 Specific gravity (U) [Rel density] 1.020 1.001-1.03 0 [facility] Urea nitrogen [Mass/volume] in Serum or PlasmaOrdered By: Derek Phipps on 04-17-2024 Urea nitrogen [Mass/Vol] 6 mg/dL Low 7-25 [facility] Comment on above: Performed By: #### H EPATIC, LIPASE, CBC, BMP ####[facility] [id number] [address] Urine appearanceOrdered By: Derek Phipps on 04-17-2024 Appearance (U) Clear Normal Clear [facility] Comment on above: Order Comment: Name Collection Type:: Clean-Voided Midstream Performed By: #### U HCG, ADDONUAPLUS, URDS #### [facility] [address] Urobilinogen Test strip (U) [Mass/Vol]Ordered By: Derek Phipps on 04-17-2024 Urobilinogen (U) [Mass/Vol] Normal mg/dL Normal [facility] pH of Urine by Test stripOrd ered By: Derek Phipps on 04-17-2024 pH (U) 7.5 [pH] Normal 5.0-9.0 [facility] Comment on above: Order Comment: Name Collection Type:: Clean-Voided Midstream Performed By: #### U HCG, ADDONUAPLUS, URDS #### [facility] [address] Basophils Auto (Bld) [#/Vol] Ordered By: Sedrick Wells on 10-13-2023 Basophils (Bld) [#/Vol] 0.0 10*3/uL 0.0-0.2 [facility] Basophils/100 WBC Auto (Bld) Ordered By: Sedrick Wells on 10-13-2023 Basophils/100 WBC (Bld) 0.6 % . F [facility] Calcium [Mass/volume] in Ser um or PlasmaOrdered By: Sedrick Wells on 10-13-2023 Calcium [Mass/Vol] 9.0 mg/dL 8.6-10.3 [facility] Carbon dioxide, total [Moles /volume] in Serum or PlasmaOrdered By: Sedrick Wells on 10-13-2023 CO2 [Moles/Vol] 28.6 mmol/L 21.0-31.0 [facility] Chloride [Moles/volume] in S isabel or PlasmaOrdered By: Sedrick Wells on 10-13-2023 Chloride [Moles/Vol] 107 mmol/L 98-107 [facility] Choriogonadotropin.beta subu nit [Units/volume] in Serum or PlasmaOrdered By: Sedrick Wells on 10-13-2023 HCG.beta subunit Qn Negative [facility] Creatine kinase [Enzymatic a ctivity/volume] in Serum or PlasmaOrdered By: Sedrick Wells on 10-13-2023 CK [Catalytic activity/Vol] 42 U/L 30-223 [facility] Creatinine [Mass/volume] in Serum or PlasmaOrdered By: Sedrick Wells on 10-13-2023 Creatinine [Mass/Vol] 0.51 mg/dL 0.60-1.20 [facility] Eosinophils Auto (Bld) [#/Vo l]Ordered By: Sedrick Wells on 10-13-2023 Eosinophils (Bld) [#/Vol] 0.3 10*3/uL 0.0-0.45 [facility] Eosinophils/100 WBC Auto (Bl d)Ordered By: Sedrick Wells on 10-13-2023 Eosinophils/100 WBC (Bld) 3.8 % . [facility] Erythrocyte distribution wid th Auto (RBC) [Ratio]Ordered By: Sedrick Wells on 10-13-2023 Erythrocyte distribution width (RBC) [Ratio] 13.9 % 11.9-15.3 [facility] Glucose [Mass/volume] in Ser um or PlasmaOrdered By: Sedrick Wells on 10-13-2023 Glucose [Mass/Vol] 80 mg/dL 70-100 [facility] Comment on above: ADA recommended refe rence rangeRandom Glucose Reference Range is dependent on time and content of last meal. Glucose of more than 200 mg/dL in a nonstressed, ambulatory subject supports the diagnosis of Diabetes Mellitus. Hematocrit Auto (Bld) [Volum e fraction]Ordered By: Sedrick Wells on 10-13-2023 Hematocrit (Bld) [Volume fraction] 34.6 % 34.0-46.4 [facility] Hemoglobin [Mass/volume] in BloodOrdered By: Sedrick Wells on 10-13-2023 Hemoglobin (Bld) [Mass/Vol] 11.8 g/dL 11.8-15.4 [facility] Leukocytes [#/volume] correc michael for nucleated erythrocytes in Blood by Automated counOrdered By: Sedrick Wells on 10-13-2023 WBC corrected for nucl RBC Auto (Bld) [#/Vol] 6.9 10*3/uL 3.8-11.6 [facility] Lymphocytes Auto (Bld) [#/Vo l]Ordered By: Sedrick Wells on 10-13-2023 Lymphocytes (Bld) [#/Vol] 1.5 10*3/uL 1.00-4.8 [facility] Lymphocytes/100 WBC Auto (Bl d)Ordered By: Sedrick Wells on 10-13-2023 Lymphocytes/100 WBC (Bld) 21.5 % . [facility] MCH Auto (RBC) [Entitic mass ]Ordered By: Sedrick Wells on 10-13-2023 MCH (RBC) [Entitic mass] 29.3 pg 24.7-34.3 [facility] MCHC Auto (RBC) [Mass/Vol]Or dered By: Sedrick Wells on 10-13-2023 MCHC (RBC) [Mass/Vol] 33.9 g/dL 32.0-35.0 [facility] MCV Auto (RBC) [Entitic vol] Ordered By: Sedrick Wells on 10-13-2023 MCV (RBC) [Entitic vol] 86.4 fL 80-[address] [facility] Monocyte distribution width [Entitic volume] in Blood by AutomatedOrdered By: Sedrick Wells on 10-13-2023 Monocyte distribution width Auto (Bld) [Entitic vol] 16.72 % 0.00-20.00 [facility] Monocytes Auto (Bld) [#/Vol] Ordered By: Sedrick Wells on 10-13-2023 Monocytes (Bld) [#/Vol] 0.3 10*3/uL 0.0-0.8 [facility] Monocytes/100 WBC Auto (Bld) Ordered By: Sedrick Wells on 10-13-2023 Monocytes/100 WBC (Bld) 4.7 % . [facility] Natriuretic peptide B [Mass/ Vol]Ordered By: Sedrick Wells on 10-13-2023 Natriuretic peptide B (Bld) [Mass/Vol] 30.0 pg/mL 5-100 [facility] Neutrophils Auto (Bld) [#/Vo l]Ordered By: Sedrick Wells on 10-13-2023 Neutrophils (Bld) [#/Vol] 4.8 10*3/uL 1.8-7.7 [facility] Neutrophils/100 WBC Auto (Bl d)Ordered By: Sedrick Wells on 10-13-2023 Neutrophils/100 WBC (Bld) 69.4 % . [facility] No Panel InformationOrdered By: Sedrick Wells on 10-13-2023 Estimated GFR (CKD-EPI) > 60.0 mL/Min [facility] Creatinine Clearance (Chem 118.45 [facility] Nucleated erythrocytes [Pres ence] in Blood by Automated countOrdered By: Sedrick Wells on 10-13-2023 Nucleated RBC Auto Ql (Bld) 0.1 /100{WBC} 0-0.5 [facility] Platelet mean volume Auto (B ld) [Entitic vol]Ordered By: Sedrick Wells on 10-13-2023 Platelet mean volume (Bld) [Entitic vol] 7.7 fL 6.3-10.7 [facility] Platelets Auto (Bld) [#/Vol] Ordered By: Sedrick Wells on 10-13-2023 Platelets (Bld) [#/Vol] 257 10*3/uL 150-450 [facility] Potassium [Moles/volume] in Serum or PlasmaOrdered By: Sedrick Wells on 10-13-2023 Potassium [Moles/Vol] 3.7 mmol/L 3.5-5.1 [facility] RBC Auto (Bld) [#/Vol]Ordere d By: Sedrick Wells on 10-13-2023 RBC (Bld) [#/Vol] 4.01 10*6/uL 3.60-5.00 [facility] Serum or plasma anion gap de terminationOrdered By: Sedrick Wells on 10-13-2023 Anion gap [Moles/Vol] 7.1 mmol/L 6.0-15.0 [facility] Sodium [Moles/volume] in Ser um or PlasmaOrdered By: Sedrick Wells on 10-13-2023 Sodium [Moles/Vol] 139 mmol/L 136-145 [facility] Troponin I.cardiac [Mass/vol ume] in Serum or Plasma by Detection limit <= 0.01 ng/Ordered By: Sedrick Wells on 10-13-2023 Troponin I.cardiac DL <= 0.01 ng/mL [Mass/Vol] < 2.3 pg/mL 0.0-15.0 [facility] Urea nitrogen [Mass/volume] in Serum or PlasmaOrdered By: Sedrick Wells on 10-13-2023 Urea nitrogen [Mass/Vol] 10 mg/dL 04-02 [facility] WBC Auto (Bld) [#/Vol]Ordere d By: Sedrick Wells on 10-13-2023 WBC (Bld) [#/Vol] 6.9 10*3/uL 3.8-11.6 [facility] Activated partial thrombopla stin time (aPTT) in platelet poor plasma by coagulation aOrdered By: Ashley Roberson on 09-28-2023 aPTT Coag (PPP) [Time] 31.0 s 25.1-36.5 [facility] Comment on above: A hematocrit value g reater than 55% may lead to inaccurate results in coagulation testing. Patients having hematocrit values >55% require a special collection tube for coagulation studies. Please contact the laboratory at [phone] for redraw instructions. Alanine aminotransferase [En zymatic activity/volume] in Serum or PlasmaOrdered By: Ashley Roberson on 09-28-2023 ALT [Catalytic activity/Vol] 6 U/L [facility] Albumin [Mass/volume] in Ser um or Plasma by Bromocresol green (BCG) dye binding methoOrdered By: Ashley Roberson on 09-28-2023 Albumin BCG dye [Mass/Vol] 4.8 g/dL 3.5-5.7 [facility] Alkaline phosphatase [Enzyma tic activity/volume] in Serum or PlasmaOrdered By: Ashley Roberson on 09-28-2023 ALP [Catalytic activity/Vol] 62 U/L 34-104 [facility] Aspartate aminotransferase [ Enzymatic activity/volume] in Serum or PlasmaOrdered By: Ashley Roberson on 09-28-2023 AST [Catalytic activity/Vol] 15 U/L 13-39 [facility] Automated erythrocytes count in urine sediment (number/area)Ordered By: Ashley Roberson on 09-28-2023 RBC Auto (Urine sed) [#/Area] 1-2 [HPF] 0-4 [facility] Automated leukocytes count i n urine sediment (number/area)Ordered By: Ashley Roberson on 09-28-2023 WBC Auto (Urine sed) [#/Area] 20-49 [HPF] 0-4 [facility] Automated urine hyaline cast s count (number/volume)Ordered By: Ashley Roberson on 09-28-2023 Hyaline casts Auto (U) [#/Vol] None seen [LPF] 0-1 [facility] Basophils Auto (Bld) [#/Vol] Ordered By: Ashley Roberson on 09-28-2023 Basophils (Bld) [#/Vol] 0.1 10*3/uL 0.0-0.2 [facility] Basophils/100 WBC Auto (Bld) Ordered By: Ashley Roberson on 09-28-2023 Basophils/100 WBC (Bld) 0.4 % . [facility] Bilirubin Test strip Ql (U)O rdered By: Ashley Roberson on 09-28-2023 Bilirubin Ql (U) Negative Negative [facility] Bilirubin.total [Mass/volume ] in Serum or PlasmaOrdered By: Ashley Roberson on 09-28-2023 Bilirubin [Mass/Vol] 1.2 mg/dL 0.3-1.0 [facility] COVID CepheidOrdered By: Nuvia Roberson on 09-28-2023 SARS-CoV-2 (COVID-19) Ab IA Ql Negative Negative [facility] Comment on above: This is a duplicate CepXGIMI Xpert Xpress CoV-2/Flu/RSV Plus RNA by RT-PCR result to be used for statistical tracking purpose only. SARS-CoV-2 (COVID-19) RNA OMAIRA+probe Ql (Unsp spec) [facility] Calcium [Mass/volume] in Ser um or PlasmaOrdered By: Ashley Roberson on 09-28-2023 Calcium [Mass/Vol] 10.1 mg/dL 8.6-10.3 [facility] Carbon dioxide, total [Moles /volume] in Serum or PlasmaOrdered By: Ashley Roberson on 09-28-2023 CO2 [Moles/Vol] 25.4 mmol/L 21.0-31.0 [facility] Chloride [Moles/volume] in S isabel or PlasmaOrdered By: Ashley Roberson on 09-28-2023 Chloride [Moles/Vol] 99 mmol/L 98-107 [facility] Color Auto (U)Ordered By: Sheng Roberson on 09-28-2023 Color (U) Dark yellow Yellow [facility] Creatinine [Mass/volume] in Serum or PlasmaOrdered By: Ashley Roberson on 09-28-2023 Creatinine [Mass/Vol] 0.62 mg/dL 0.60-1.20 [facility] Eosinophils Auto (Bld) [#/Vo l]Ordered By: Ashley Roberson on 09-28-2023 Eosinophils (Bld) [#/Vol] 0.2 10*3/uL 0.0-0.45 [facility] Eosinophils/100 WBC Auto (Bl d)Ordered By: Ashley Roberson on 09-28-2023 Eosinophils/100 WBC (Bld) 1.3 % . [facility] Erythrocyte distribution wid th Auto (RBC) [Ratio]Ordered By: Ashley Roberson on 09-28-2023 Erythrocyte distribution width (RBC) [Ratio] 13.8 % 11.9-15.3 [facility] Fibrin D-dimer [Presence] in Platelet poor plasma by Latex agglutinationOrdered By: Ashley Roberson on 09-28-2023 Fibrin D-dimer LA Ql (PPP) < 200 ng/mL 0-243 [facility] Comment on above: The reference range [...] coagulation studies. Please contact the laboratory at [phone] for redraw instructions. Globulin Calc (S) [Mass/Vol] Ordered By: Ashley Roberson on 09-28-2023 Globulin (S) [Mass/Vol] 3.3 g/dL F [facility] Glucose Glucometer (BldC) [M ass/Vol]Ordered By: Ashley Roberson on 09-28-2023 Glucose [Mass/Vol] 113 mg/dL [facility] Comment on above: Random Glucose Refer ence Range is dependent on time and content of last meal. Glucose of more than 200 mg/dL in a nonstressed, ambulatory subject supports the diagnosis of Diabetes Mellitus. Glucose [Mass/volume] in Ser um or PlasmaOrdered By: Ashley Roberson on 09-28-2023 Glucose [Mass/Vol] 59 mg/dL 70-100 [facility] Comment on above: ADA recommended refe rence rangeRandom Glucose Reference Range is dependent on time and content of last meal. Glucose of more than 200 mg/dL in a nonstressed, ambulatory subject supports the diagnosis of Diabetes Mellitus. HCG ( test) IA.rapi d Ql (U)Ordered By: Ashley Roberson on 09-28-2023 HCG ( test) Ql (U) Negative [facility] Hematocrit Auto (Bld) [Volum e fraction]Ordered By: Ashley Roberson on 09-28-2023 Hematocrit (Bld) [Volume fraction] 38.8 % 34.0-46.4 [facility] Hemoglobin [Mass/volume] in BloodOrdered By: Ashley Roberson on 09-28-2023 Hemoglobin (Bld) [Mass/Vol] 13.4 g/dL 11.8-15.4 [facility] INR in Platelet poor plasma by Coagulation assayOrdered By: Ashley Roberson on 09-28-2023 INR Coag (PPP) [Relative time] 1.2 {INR} [facility] Comment on above: INR Therapeutic Rang [...] 09-28-2023 Ketones (U) [Mass/Vol] 4+ Negative [facility] Leukocytes [#/volume] correc michael for nucleated erythrocytes in Blood by Automated counOrdered By: Ashley Roberson on 09-28-2023 WBC corrected for nucl RBC Auto (Bld) [#/Vol] 17.6 10*3/uL 3.8-11.6 [facility] Lipase [Enzymatic activity/v olume] in Serum or PlasmaOrdered By: Ashley Roberson on 09-28-2023 Lipase [Catalytic activity/Vol] 15.0 U/L 11.0-82.0 [facility] Lymphocytes Auto (Bld) [#/Vo l]Ordered By: Ashley Roberson on 09-28-2023 Lymphocytes (Bld) [#/Vol] 1.4 10*3/uL 1.00-4.8 [facility] Lymphocytes/100 WBC Auto (Bl d)Ordered By: Ashley Roberson on 09-28-2023 Lymphocytes/100 WBC (Bld) 8.2 % . [facility] MCH Auto (RBC) [Entitic mass ]Ordered By: Ashley Roberson on 09-28-2023 MCH (RBC) [Entitic mass] 29.5 pg 24.7-34.3 [facility] MCHC Auto (RBC) [Mass/Vol]Or dered By: Ashley Roberson on 09-28-2023 MCHC (RBC) [Mass/Vol] 34.6 g/dL 32.0-35.0 [facility] MCV Auto (RBC) [Entitic vol] Ordered By: Ashley Roberson on 09-28-2023 MCV (RBC) [Entitic vol] 85.4 fL 80-[address] [facility] Monocyte distribution width [Entitic volume] in Blood by AutomatedOrdered By: Ashley Roberson on 09-28-2023 Monocyte distribution width Auto (Bld) [Entitic vol] 20.66 % 0.00-20.00 [facility] Comment on above: For adults in ED, MD W > 20.0 may be associated with a higher risk of sepsis during the first 12 hrs of hospital admission Monocytes Auto (Bld) [#/Vol] Ordered By: Ashley Roberson on 09-28-2023 Monocytes (Bld) [#/Vol] 0.7 10*3/uL 0.0-0.8 [facility] Monocytes/100 WBC Auto (Bld) Ordered By: Ashley Roberson on 09-28-2023 Monocytes/100 WBC (Bld) 4.2 % . [facility] Neutrophils Auto (Bld) [#/Vo l]Ordered By: Ashley Roberson on 09-28-2023 Neutrophils (Bld) [#/Vol] 15.1 10*3/uL 1.8-7.7 [facility] Neutrophils/100 WBC Auto (Bl d)Ordered By: Ashley Roberson on 09-28-2023 Neutrophils/100 WBC (Bld) 85.9 % . [facility] Nitrite Test strip Ql (U)Ord ered By: Ashley Roberson on 09-28-2023 Nitrite Ql (U) Negative Negative [facility] No Panel InformationOrdered By: Ashley Roberson on 09-28-2023 Bedside Glucose Comment See comment [facility] Comment on above: Glu2: WILL NOTIFY DR /RN Estimated GFR (CKD-EPI) > 60.0 mL/Min [facility] Creatinine Clearance (Chem 92.34 [facility] Nucleated erythrocytes [Pres ence] in Blood by Automated countOrdered By: Ashley Roberson on 09-28-2023 Nucleated RBC Auto Ql (Bld) 0.1 /100{WBC} 0-0.5 [facility] Platelet mean volume Auto (B ld) [Entitic vol]Ordered By: Ashley Roberson on 09-28-2023 Platelet mean volume (Bld) [Entitic vol] 8.0 fL 6.3-10.7 [facility] Platelets Auto (Bld) [#/Vol] Ordered By: Ashley Roberson on 09-28-2023 Platelets (Bld) [#/Vol] 377 10*3/uL 150-450 [facility] Potassium [Moles/volume] in Serum or PlasmaOrdered By: Ashley Roberson on 09-28-2023 Potassium [Moles/Vol] 3.8 mmol/L 3.5-5.1 [facility] Protein Auto test strip (U) [Mass/Vol]Ordered By: Ashley Roberson on 09-28-2023 Protein (U) [Mass/Vol] 30 mg/dL Negative [facility] Protein [Mass/volume] in Ser um or PlasmaOrdered By: Ashley Roberson on 09-28-2023 Protein [Mass/Vol] 8.1 g/dL 6.4-8.9 [facility] Prothrombin time (PT)Ordered By: Ashley Roberson on 09-28-2023 PT Coag (PPP) [Time] 13.8 s 9.0-12.9 [facility] Comment on above: A hematocrit value g reater than 55% may lead to inaccurate results in coagulation testing. Patients having hematocrit values >55% require a special collection tube for coagulation studies. Please contact the laboratory at [phone] for redraw instructions. RBC Auto (Bld) [#/Vol]Ordere d By: Ashley Roberson on 09-28-2023 RBC (Bld) [#/Vol] 4.55 10*6/uL 3.60-5.00 [facility] Serum or plasma albumin/glob ulin mass ratioOrdered By: Ashley Roberson on 09-28-2023 Albumin/Globulin [Mass ratio] 1.5 {ratio} [facility] Serum or plasma anion gap de terminationOrdered By: Ashley Roberson on 09-28-2023 Anion gap [Moles/Vol] 18.4 mmol/L 6.0-15.0 [facility] Sodium [Moles/volume] in Ser um or PlasmaOrdered By: Ashley Roberson on 09-28-2023 Sodium [Moles/Vol] 139 mmol/L 136-145 [facility] Specific gravity Auto test s trip (U) [Rel density]Ordered By: Ashley Roberson on 09-28-2023 Specific gravity (U) [Rel density] 1.030 1.001-1.03 0 [facility] Squamous epithelial cells de tection in urine sediment by light microscopyOrdered By: Ashley Roberson on 09-28-2023 Epithelial cells.squamous LM Ql (Urine sed) 3-4 [HPF] 0-2 [facility] Troponin I.cardiac [Mass/vol ume] in Serum or Plasma by Detection limit <= 0.01 ng/Ordered By: Ashley Roberson on 09-28-2023 Troponin I.cardiac DL <= 0.01 ng/mL [Mass/Vol] 3.3 pg/mL 0.0-15.0 [facility] Urea nitrogen [Mass/volume] in Serum or PlasmaOrdered By: Ashley Roberson 09-28-2023 Urea nitrogen [Mass/Vol] 12 mg/dL 7-25 [facility] Urine bacteria detection by automated methodOrdered By: Ashley Roberson on 09-28-2023 Bacteria Auto Ql (U) None seen None Seen [facility] Urine clarity by refractomet ry automatedOrdered By: Ashley Roberson on 09-28-2023 Clarity Refractometry automated (U) Clear Clear [facility] Urine culture routineOrdered By: Ashley Roberson on 09-28-2023 Bacteria identified Cx Nom (U) Strep agalactiae - (group b) [facility] Urine glucose measurement by automated test strip (mass/volume)Ordered By: Ashley Roberson on 09-28-2023 Glucose Auto test strip (U) [Mass/Vol] Normal mg/dL Normal [facility] Urine hemoglobin detection b y automated test stripOrdered By: Ashley Roberson on 09-28-2023 Hemoglobin Auto test strip Ql (U) Negative Negative [facility] Urine leukocyte esterase det ection by automated test stripOrdered By: Ashley Roberson on 09-28-2023 Leukocyte esterase Auto test strip Ql (U) 3+ Negative [facility] Urobilinogen Auto test strip (U) [Mass/Vol]Ordered By: Ashley Roberson on 09-28-2023 Urobilinogen (U) [Mass/Vol] Normal mg/dL Normal [facility] WBC Auto (Bld) [#/Vol]Ordere d By: Ashley Roberson on 09-28-2023 WBC (Bld) [#/Vol] 17.6 10*3/uL 3.8-11.6 [facility] pH Auto test strip (U)Ordere d By: Ashley Roberson on 09-28-2023 pH (U) 6.0 [pH] 5.0-9.0 [facility] Amphetamine Screen Ql (U)Ord ered By: Jordi Seals on 09-10-2023 Amphetamines Ql (U) Negative Negative [facility] Barbiturates [Presence] in U rine by Screen methodOrdered By: Jordi Seals on 09-10-2023 Barbiturates Screen Ql (U) Negative Negative [facility] Benzodiazepines Screen Ql (U )Ordered By: Jordi Seals on 09-10-2023 Benzodiazepines Ql (U) Negative Negative [facility] Benzoylecgonine [Presence] i n Urine by Screen methodOrdered By: Jordi Seals on 09-10-2023 Benzoylecgonine Screen Ql (U) Negative Negative [facility] Cannabinoids [Presence] in U rine by Screen methodOrdered By: Jordi Seals on 09-10-2023 Cannabinoids Screen Ql (U) Positive Negative [facility] Comment on above: These are unconfirme d results and should not be used for legal purposes. Drug Cut-Off Concentration: AMPH 1000 ng/mL VENKATA 200 ng/mL BREANNA 200 ng/mL COCM 300 ng/mL OP 300 ng/mL PCP 25 ng/mL THC 20 ng/mL HCG ( test) IA.rapi d Ql (U)Ordered By: Imad Asaad on 09-10-2023 HCG ( test) Ql (U) Negative [facility] Opiates [Presence] in Urine by Screen methodOrdered By: Imad Asaad on 09-10-2023 Opiates Screen Ql (U) Negative Negative [facility] Phencyclidine Screen Ql (U)O rdered By: Imad Asaad on 09-10-2023 Phencyclidine Ql (U) Negative Negative [facility] HCG ( test) IA.rapi d Ql (U)Ordered By: Imad Asaad on 06-03-2023 HCG ( test) Ql (U) Negative [facility] C reactive protein [Mass/vol ume] in Serum or PlasmaOrdered By: Imad Asaad on 05-08-2023 CRP [Mass/Vol] < 0.5 mg/dL 0.0-0.5 [facility] Calprotectin [Mass/mass] in StoolOrdered By: Imad Asaad on 05-08-2023 Calprotectin (Stl) [Mass/Mass] <5 ug/g 0-120 [facility] Comment on above: Concentration Interp retation Follow-Up< 5 - 50 ug/g Normal None>50 -120 ug/g Borderline Re-evaluate in 4-6 weeks >120 ug/g Abnormal Repeat as clinically indicatedPerformed at: - [facility] [id number] Director: Joseph Tang MD, Phone: [phone] Clostridioides difficile tox in B tcdB gene [Presence] in Stool by OMAIRA with probe deteOrdered By: Imcher Seals on 05-08-2023 C. difficile toxin B tcdB gene OMAIRA+probe Ql (Stl) Negative Negative [facility] Comment on above: Testing performed by RT-PCR Elastase.pancreatic [Mass/ma ss] in StoolOrdered By: Imad Bozena on 05-08-2023 Elastase.pancreatic (Stl) [Mass/Mass] 284 >200 [facility] Comment on above: Result Units: ug Bambi st./g Severe Pancreatic Insufficiency: <100 Moderate Pancreatic Insufficiency: 100 - 200 Normal: >200Performed at: - [facility] [id number] Director: Joseph Tang MD, Phone: [phone] Erythrocyte sedimentation ra te by Photometric methodOrdered By: Jordi Seals on 05-08-2023 ESR Photometric method (Bld) [Velocity] 3 mm/hr 0-19 [facility] HIV 1 and HIV-2 antibody ass ay with HIV-1 p24 antigen detectionOrdered By: Imcher Seals on 05-08-2023 HIV 1+2 Ab+HIV1 p24 Ag IA Ql Non-Reactive Non Reactive [facility] Comment on above: HIV NegativeHIV-1/HI V-2 antibodies and HIV-1 p24 antigen were NOTdetected. There is no laboratory evidence of HIV infection.Performed at: [facility] [address] [id number] Director: Mendel Rubin PhD, Phone: [phone] IgA [Mass/volume] in Serum o r PlasmaOrdered By: Jordi Seasl on 05-08-2023 IgA [Mass/Vol] 260 mg/dL 87-352 [facility] Comment on above: Performed at: [facility] [address] [id number] Director: Mendel Rubin PhD, Phone: [phone] No Panel InformationOrdered By: Jordi Seals on 05-08-2023 Endomysial IgA Antibody Negative Negative F [facility] Ova and Parasite Result 1 N/A [facility] Ova and Parasite Result 1 [facility] Ova or parasites identificat ionOrdered By: Jordi Seals on 05-08-2023 Ova and parasites identified LM Nom (Unsp spec) N/A [facility] Ova and parasites identified LM Nom (Unsp spec) [facility] Serum gliadin peptide IgA an tibody assay (units/volume)Ordered By: Jordi Seals on 05-08-2023 Gliadin peptide IgA Qn (S) 6 units 0-19 [facility] Comment on above: Negative 0 - 19 Weak Positive 20 - 30 Moderate to Strong Positive >30 Serum gliadin peptide IgG an tibody assay (units/volume)Ordered By: [facility] on 05-08-2023 Gliadin peptide IgG Qn (S) 3 units 0-19 [facility] Comment on above: Negative 0 - 19 Weak Positive 20 - 30 Moderate to Strong Positive >30 Serum tissue transglutaminas e (tTG) IgA antibody assay (units/volume)Ordered By: [facility] on 05-08-2023 tTG IgA Qn (S) <2 U/mL 0-3 [facility] Comment on above: Negative 0 - 3 Weak Positive 4 - 10 Positive >10 Tissue Transglutaminase (tTG) has been identified as the endomysial antigen. Studies have demonstr- ated that endomysial IgA antibodies have over 99% specificity for gluten sensitive enteropathy. Serum tissue transglutaminas e (tTG) IgG antibody assay (units/volume)Ordered By: [facility] on 05-08-2023 tTG IgG Qn (S) <2 U/mL 0-5 [facility] Comment on above: Negative 0 - 5 Weak Positive 6 - 9 Positive >9 Stool ova and parasites iden tification by concentrationOrdered By: [facility] on 05-08-2023 Ova and parasites identified Concentration Nom (Stl) N/A [facility] Stool ova and parasites iden tification by trichrome stainOrdered By: [facility] 05-08-2023 Ova and parasites identified Trichrome stain Nom ([facility]) N/A [facility] Thyrotropin [Units/volume] i n Serum or PlasmaOrdered By: cher [facility] on 05-08-2023 TSH Qn 0.49 m[IU]/L 0.45-5.33 [facility] Alanine aminotransferase [En zymatic activity/volume] in Serum or PlasmaOrdered By: Vivian Tejadaimdebra on 12-29-2022 ALT [Catalytic activity/Vol] 9 U/L 7-52 [facility] Albumin [Mass/volume] in Ser um or Plasma by Bromocresol green (BCG) dye binding methoOrdered By: Vivian Bullimore on 12-29-2022 Albumin BCG dye [Mass/Vol] 4.9 g/dL 3.5-5.7 [facility] Alkaline phosphatase [Enzyma tic activity/volume] in Serum or PlasmaOrdered By: Vivian Zamudioore on 12-29-2022 ALP [Catalytic activity/Vol] 60 U/L 34-104 [facility] Aspartate aminotransferase [ Enzymatic activity/volume] in Serum or PlasmaOrdered By: Vivian Zamudioore on 12-29-2022 AST [Catalytic activity/Vol] 14 U/L 13-39 [facility] Automated erythrocytes count in urine sediment (number/area)Ordered By: Vivian Nieto on 12-29-2022 RBC Auto (Urine sed) [#/Area] 1-2 [HPF] 0-4 [facility] Automated leukocytes count i n urine sediment (number/area)Ordered By: Vivian Nieto on 12-29-2022 WBC Auto (Urine sed) [#/Area] 20-49 [HPF] 0-4 [facility] Automated urine hyaline cast s count (number/volume)Ordered By: Vivian Nieto on 12-29-2022 Hyaline casts Auto (U) [#/Vol] 10-19 [LPF] 0-1 [facility] Basophils Auto (Bld) [#/Vol] Ordered By: Vivian Zamudioore on 12-29-2022 Basophils (Bld) [#/Vol] 0.0 10*3/uL 0.0-0.2 [facility] Basophils/100 WBC Auto (Bld) Ordered By: Vivian Zamudioore on 12-29-2022 Basophils/100 WBC (Bld) 0.4 % . F [facility] Bilirubin Test strip Ql (U)O rdered By: Vivian Nieto on 12-29-2022 Bilirubin Ql (U) Negative Negative [facility] Bilirubin.total [Mass/volume ] in Serum or PlasmaOrdered By: Vivian Nieto on 12-29-2022 Bilirubin [Mass/Vol] 0.6 mg/dL 0.3-1.0 [facility] C reactive protein [Mass/vol ume] in Serum or PlasmaOrdered By: Vivian Tejadaimore on 12-29-2022 CRP [Mass/Vol] 3.1 mg/dL 0.0-0.5 [facility] Calcium [Mass/volume] in Ser um or PlasmaOrdered By: Vivian Nieto on 12-29-2022 Calcium [Mass/Vol] 10.0 mg/dL 8.6-10.3 [facility] Carbon dioxide, total [Moles /volume] in Serum or PlasmaOrdered By: Vivian Nieto on 12-29-2022 CO2 [Moles/Vol] 26.6 mmol/L 21.0-31.0 [facility] Casts typing in urine sedime nt by light microscopyOrdered By: PROVIDER TEMP on 12-29-2022 Casts LM Nom (Urine sed) N/A [facility] Chloride [Moles/volume] in S isabel or PlasmaOrdered By: Vivian Nieto on 12-29-2022 Chloride [Moles/Vol] 103 mmol/L 98-107 [facility] Color Auto (U)Ordered By: Radha Nieto on 12-29-2022 Color (U) Dark yellow Yellow [facility] Creatinine [Mass/volume] in Serum or PlasmaOrdered By: Vivian Nieto on 12-29-2022 Creatinine [Mass/Vol] 0.55 mg/dL 0.60-1.20 [facility] Eosinophils Auto (Bld) [#/Vo l]Ordered By: Vivian Nieto on 12-29-2022 Eosinophils (Bld) [#/Vol] 0.3 10*3/uL 0.0-0.45 [facility] Eosinophils/100 WBC Auto (Bl d)Ordered By: Vivian Nieto on 12-29-2022 Eosinophils/100 WBC (Bld) 3.2 % . [facility] Erythrocyte distribution wid th Auto (RBC) [Ratio]Ordered By: Vivian Nieto on 12-29-2022 Erythrocyte distribution width (RBC) [Ratio] 14.9 % 11.9-15.3 [facility] Erythrocyte sedimentation ra te by Photometric methodOrdered By: Vivian Nieto on 12-29-2022 ESR Photometric method (Bld) [Velocity] 21 mm/hr 0-19 [facility] Globulin Calc (S) [Mass/Vol] Ordered By: Vivian Nieto on 12-29-2022 Globulin (S) [Mass/Vol] 3.3 g/dL F [facility] Glucose [Mass/volume] in Ser um or PlasmaOrdered By: Vivian Nieto on 12-29-2022 Glucose [Mass/Vol] 75 mg/dL 70-100 [facility] Comment on above: ADA recommended refe rence rangeRandom Glucose Reference Range is dependent on time and content of last meal. Glucose of more than 200 mg/dL in a nonstressed, ambulatory subject supports the diagnosis of Diabetes Mellitus. HCG ( test) IA.rapi d Ql (U)Ordered By: JESSI HUBBARD on 12-29-2022 HCG ( test) Ql (U) Negative [facility] Hematocrit Auto (Bld) [Volum e fraction]Ordered By: Vivian Nieto on 12-29-2022 Hematocrit (Bld) [Volume fraction] 39.6 % 34.0-46.4 [facility] Hemoglobin [Mass/volume] in BloodOrdered By: Vivian Nieto on 12-29-2022 Hemoglobin (Bld) [Mass/Vol] 13.2 g/dL 11.8-15.4 [facility] Ketones Auto test strip (U) [Mass/Vol]Ordered By: Vivian Nieto on 12-29-2022 Ketones (U) [Mass/Vol] 3+ Negative Fi [facility] Leukocytes [#/volume] correc michael for nucleated erythrocytes in Blood by Automated counOrdered By: Vivian Nieto on 12-29-2022 WBC corrected for nucl RBC Auto (Bld) [#/Vol] 9.8 10*3/uL 3.8-11.6 [facility] Lymphocytes Auto (Bld) [#/Vo l]Ordered By: Vivian Nieto on 12-29-2022 Lymphocytes (Bld) [#/Vol] 1.2 10*3/uL 1.00-4.8 [facility] Lymphocytes/100 WBC Auto (Bl d)Ordered By: Vivian Nieto on 12-29-2022 Lymphocytes/100 WBC (Bld) 11.9 % . [facility] MCH Auto (RBC) [Entitic mass ]Ordered By: Vivian Bullimore on 12-29-2022 MCH (RBC) [Entitic mass] 27.5 pg 24.7-34.3 [facility] MCHC Auto (RBC) [Mass/Vol]Or dered By: Vivian Bullimore on 12-29-2022 MCHC (RBC) [Mass/Vol] 33.3 g/dL 32.0-35.0 [facility] MCV Auto (RBC) [Entitic vol] Ordered By: Vivian Bullimore on 12-29-2022 MCV (RBC) [Entitic vol] 82.6 fL 80-[address] [facility] Monocytes Auto (Bld) [#/Vol] Ordered By: Vivian Bullimore on 12-29-2022 Monocytes (Bld) [#/Vol] 0.5 10*3/uL 0.0-0.8 [facility] Monocytes/100 WBC Auto (Bld) Ordered By: Vivian Bullimore on 12-29-2022 Monocytes/100 WBC (Bld) 5.1 % . [facility] Neutrophils Auto (Bld) [#/Vo l]Ordered By: Vivian Bullimore on 12-29-2022 Neutrophils (Bld) [#/Vol] 7.8 10*3/uL 1.8-7.7 [facility] Neutrophils/100 WBC Auto (Bl d)Ordered By: Vivian Bullimore on 12-29-2022 Neutrophils/100 WBC (Bld) 79.4 % . [facility] Nitrite Test strip Ql (U)Ord ered By: Vivian Bullimore on 12-29-2022 Nitrite Ql (U) Negative Negative [facility] No Panel InformationOrdered By: Vivian Tejadaimore on 12-29-2022 Estimated GFR (CKD-EPI) > 60.0 mL/Min [facility] Creatinine Clearance (Chem 123.12 [facility] Nucleated erythrocytes [Pres ence] in Blood by Automated countOrdered By: Vivian Tejadaimore on 12-29-2022 Nucleated RBC Auto Ql (Bld) 0.1 /100{WBC} 0-0.5 [facility] Platelet mean volume Auto (B ld) [Entitic vol]Ordered By: Vivian Bullimore on 12-29-2022 Platelet mean volume (Bld) [Entitic vol] 7.7 fL 6.3-10.7 [facility] Platelets Auto (Bld) [#/Vol] Ordered By: Vivian Bullimore on 12-29-2022 Platelets (Bld) [#/Vol] 305 10*3/uL 150-450 [facility] Potassium [Moles/volume] in Serum or PlasmaOrdered By: Vivian Bullimore on 12-29-2022 Potassium [Moles/Vol] 3.6 mmol/L 3.5-5.1 [facility] Protein Auto test strip (U) [Mass/Vol]Ordered By: Vivian Bullimore on 12-29-2022 Protein (U) [Mass/Vol] 30 mg/dL Negative [facility] Protein [Mass/volume] in Ser um or PlasmaOrdered By: Vivian Bullimore on 12-29-2022 Protein [Mass/Vol] 8.2 g/dL 6.4-8.9 [facility] RBC Auto (Bld) [#/Vol]Ordere d By: Vivian Bullimore on 12-29-2022 RBC (Bld) [#/Vol] 4.79 10*6/uL 3.60-5.00 [facility] Serum or plasma albumin/glob ulin mass ratioOrdered By: Vivian Bullimore on 12-29-2022 Albumin/Globulin [Mass ratio] 1.5 {ratio} [facility] Serum or plasma anion gap de terminationOrdered By: Vivian Bullimore on 12-29-2022 Anion gap [Moles/Vol] 14.0 mmol/L 6.0-15.0 [facility] Sodium [Moles/volume] in Ser um or PlasmaOrdered By: Vivian Bullimore on 12-29-2022 Sodium [Moles/Vol] 140 mmol/L 136-145 [facility] Specific gravity Auto test s trip (U) [Rel density]Ordered By: Vivian Bullimore on 12-29-2022 Specific gravity (U) [Rel density] 1.030 1.001-1.03 0 [facility] Squamous epithelial cells de tection in urine sediment by light microscopyOrdered By: Vivian Nieto on 12-29-2022 Epithelial cells.squamous LM Ql (Urine sed) 10-19 [HPF] 0-2 [facility] Urea nitrogen [Mass/volume] in Serum or PlasmaOrdered By: Vivian Nieto on 12-29-2022 Urea nitrogen [Mass/Vol] 7 mg/dL 7-25 [facility] Urine bacteria detection by automated methodOrdered By: Vivian Nieto on 12-29-2022 Bacteria Auto Ql (U) None seen None Seen [facility] Urine clarity by refractomet ry automatedOrdered By: Vivian Nieto on 12-29-2022 Clarity Refractometry automated (U) Cloudy Clear [facility] Urine glucose measurement by automated test strip (mass/volume)Ordered By: Vivian Nieto on 12-29-2022 Glucose Auto test strip (U) [Mass/Vol] Normal mg/dL Normal [facility] Urine hemoglobin detection b y automated test stripOrdered By: Vivian Nieto on 12-29-2022 Hemoglobin Auto test strip Ql (U) Negative Negative [facility] Urine leukocyte esterase det ection by automated test stripOrdered By: Vivian Nieto on 12-29-2022 Leukocyte esterase Auto test strip Ql (U) 2+ Negative [facility] Urobilinogen Auto test strip (U) [Mass/Vol]Ordered By: Vivian Nieto on 12-29-2022 Urobilinogen (U) [Mass/Vol] Normal mg/dL Normal [facility] WBC Auto (Bld) [#/Vol]Ordere d By: Vivian Nieto on 12-29-2022 WBC (Bld) [#/Vol] 9.8 10*3/uL 3.8-11.6 [facility] pH Auto test strip (U)Ordere d By: Vivian Nieto on 12-29-2022 pH (U) 6.5 [pH] 5.0-9.0 [facility] Physician Referralon 023 Physician Referral [id number] [facility] Ambulatory Visit Summaryon 0 11-06-2022 [...] Appointments Follow Up with Kayy Fontana MD, [facility], MED When: Only if needed Where: [address] [place] [phone] Someone Will Contact You Regarding These Appointments [facility] [place] External Ambulatory Referral, Gastroenterology, 11/06/22 14:38:00 EST, Abdominal pain Normal [facility] Family Medicine Office/Clini c Noteon 11-06-2022 Family [...] a 22 Years White Female presenting to [facility] with GI issues for long time [...] pain (R10.9: Unspecified abdominal pain) referral to [facility] placed since [facility] unable to get her in for a couple months keep food and symptom journal avoid trigger foods Ordered: [facility] [place] [facility] External Ambulatory Referral 2. Diarrhea (R19.7: Diarrhea, unspecified) referral to [facility] placed since [facility] unable to get her in for a couple months keep food and symptom journal avoid trigger foods Ordered: [facility] [place] External Ambulatory Referral Follow-up With When Contact Information Kayy Fontana MD, FAM, MED Only if needed [address] [place] [phone]- [phone] Additional Instructions: Problem List/Past Medical History Ongoing [...] vac - Not Given Patient Refuses Normal [facility] Comment on above: Result Comment: Elec tronically Signed By: Kayy Fontana MD\.br\Date and Time Signed: 11/06/22 14:45 EST Provider Letteron 11-06-2022 Provider Letter (Inserted Image. Trish ble to display) November 06, 2022 [employer]JOR [address] [place] [address] [place] [address] DAWN MAJOR T 2000 To Whom It May Concern, Please excuse above patient from work today, 11/06/22. Sincerely, Kayy Fontana MD [facility] [place] [facility]ient Care Normal [facility] CBC AUTO DIFFon 07-24-2022 BASO # 0.1 103/ul Normal 0.0-0.[address] [facility] Comment on above: Performed By: #### C BC #### [facility] [address] [place], [place] [address] Dr. Mariela Larkin Basophils/100 WBC (Bld) 0.4 % Normal 0.2-2.0 T [facility] Comment on above: Performed By: #### C BC #### [facility] [address] [place] [address] Dr. Mariela Larkin EO # 0.3 103/ul Normal 0.0-0.[address] [facility] Comment on above: Performed By: #### C BC #### [facility] [address] [place] [address] Dr. Mariela Larkin Eosinophils/100 WBC (Bld) 2.2 % Normal 0.9-7.[address] [facility] Comment on above: Performed By: #### C BC #### [facility] [address] [place] [address] Dr. Mariela Larkin Erythrocyte distribution width (RBC) [Ratio] 16.8 % Critically high 11.0-15.[address] [facility] Comment on above: Performed By: #### C BC #### [facility] [address] [place] [address] Dr. Mariela Larkin Hematocrit (Bld) [Volume fraction] 30.4 % Critically low 36.0-48.[address] [facility] Comment on above: Performed By: #### C BC #### [facility] [address] [place] [address] Dr. Mariela Larkin Hemoglobin (Bld) [Mass/Vol] 10.0 g/dL Critically low 12.0-16.[address] [facility] Comment on above: Performed By: #### C BC #### [facility] [address] [place] [address] Dr. Mariela Larkin IG # 0.13 10e3/ul Critically high 0.00-0.[address] [facility] Comment on above: Performed By: #### C BC #### [facility] [address] [place] [address] Dr. Mariela Larkin IG % 0.9 % Critically high 0.0-0.[address] [facility] Comment on above: Performed By: #### C BC #### [facility] [address] [place] [address] Dr. Mariela Larkin LYMPH # 3.1 103/ul Normal 1.2-3.[address] [facility] Comment on above: Performed By: #### C BC #### [facility] [address] [place] [address] Dr. Mariela Larkin Lymphocytes/100 WBC (Bld) 22.4 % Normal 20.5-60.[address] [facility] Comment on above: Performed By: #### C BC #### [facility] [address] [place] [address] Dr. Mariela Larkin MANUAL DIFF REQ NO Normal [facility] Comment on above: Performed By: #### C BC #### [facility] [address] [place] [address] Dr. Mariela Larkin MCH (RBC) [Entitic mass] 27.0 pg Normal 26.7-34.[address] [facility] Comment on above: Performed By: #### C BC #### [facility] [address] [place] [address] Dr. Mariela Larkin MCHC (RBC) [Mass/Vol] 32.9 g/dL Normal 29.9-35.[address] [facility] Comment on above: Performed By: #### C BC #### [facility] [address] [place] [address] Dr. Mariela Larkin MCV (RBC) [Entitic vol] 82.2 fL Normal 81.0-99.0 [facility] Comment on above: Performed By: #### C BC #### [facility] [address] [place] [address] Dr. Mariela Larkin MONO # 0.7 103/ul Normal 0.3-0.[address] [facility] Comment on above: Performed By: #### C BC #### [facility] [address] [place] [address] Dr. Mariela Larkin Monocytes/100 WBC (Bld) 5.1 % Normal 1.7-12.0 [facility] Comment on above: Performed By: #### C BC #### [facility] [address] [place] [address] Dr. Mariela Larkin NEUT # 9.6 103/ul Critically high 1.4-6.[address] [facility] Comment on above: Performed By: #### C BC #### [facility] [address] [place] [address] Dr. Mariela Larkin Neutrophils/100 WBC (Bld) 69.0 % Normal 43.0-75.[address] [facility] Comment on above: Performed By: #### C BC #### [facility] [address] [place] [address] Dr. Mariela Larkin Platelet mean volume (Bld) [Entitic vol] 9.4 fL Critically low 9.5-13.[address] [facility] Comment on above: Performed By: #### C BC #### [facility] [address] [place] [address] Dr. Mariela Larkin PLT 243 103/ul Normal 150-[address] [facility] Comment on above: Performed By: #### C BC #### [facility] [address] [place] [address] Dr. Mariela Larkin RBC 3.70 106/ul Critically low 4.20-5.[address] [facility] Comment on above: Performed By: #### C BC #### [facility] [address] [place] [address] Dr. Mariela Larkin WBC 13.9 103/ul Critically high 4.0-11.[address] [facility] Comment on above: Performed By: #### C BC #### [facility] [address] [place] [address] Dr. Mariela Larkin [facility] SARS-CoV-2 (COVID-19) RNA OMAIRA+probe Ql (Unsp spec) Not detected Normal NOT DETECTED [facility] Comment on above: Result Comment: When [...] for this test is supported by the [place] of Health and Human Service's declaration that [...] used). Performed By: #### C VDTBH #### [facility] [address] [place] [address] Dr. Mariela Larkin DIRECT COOMBSon 07-23-2022 DIRECT AYANNA Negative Normal [facility] Comment on above: Performed By: #### D IRCMB #### [facility] [address] [place] [address] Dr. Mariela Larkin DRUG SCREEN RAPID (URINE)on 07-23-2022 AMP Negative Normal NEGATIVE [facility] Comment on above: Performed By: #### A FPMAT #### [facility] [address] [place] [address] Dr. Mariela Larkin BAR Negative Normal NEGATIVE [facility] Comment on above: Performed By: #### A FPMAT #### [facility] [address] [place] [address] Dr. Mariela Larkin BUP Negative Normal NEGATIVE [facility] Comment on above: Performed By: #### A FPMAT #### [facility] [address] [place] [address] Dr. Mariela Larkin BZO Negative Normal NEGATIVE [facility] Comment on above: Performed By: #### A FPMAT #### [facility] [address] [place] [address] Dr. Mariela Larkin CECIL Negative Normal NEGATIVE [facility] Comment on above: Performed By: #### A FPMAT #### [facility] [address] [place] [address] Dr. Mariela Larkin CUT-OFFS SEE BELOW Normal [facility] Comment on above: Result Comment: [...] ng/mL Performed By: #### A FPMAT #### [facility] [address] [place] [address] Dr. Mariela Larkin DRUG CUT HEADER DRUG CLASS TEST SYST EM CUT-OFF CONCENTRATIONS ARE FOLLOWS: Normal [facility] Comment on above: Performed By: #### A FPMAT #### [facility] [address] [place] [address] Dr. Mariela Larkin mAMP Negative Normal NEGATIVE [facility] Comment on above: Performed By: #### A FPMAT #### [facility] [address] [place] [address] Dr. Mariela Larkin MTD Negative Normal NEGATIVE [facility] Comment on above: Performed By: #### A FPMAT #### [facility] [address] [place] [address] Dr. Mariela Larkin OPI Negative Normal NEGATIVE [facility] Comment on above: Performed By: #### A FPMAT #### [facility] [address] [place] [address] Dr. Mariela Larkin OXY Negative Normal NEGATIVE [facility] Comment on above: Performed By: #### A FPMAT #### [facility] [address] [place] [address] Dr. Mariela Larkin PCP Negative Normal NEGATIVE [facility] Comment on above: Performed By: #### A FPMAT #### [facility] [address] [place] [address] Dr. Mariela Larkin PPX Negative Normal NEGATIVE [facility] Comment on above: Performed By: #### A FPMAT #### [facility] [address] [place] [address] Dr. Mariela Larkin TCA Negative Normal NEGATIVE [facility] Comment on above: Performed By: #### A FPMAT #### [facility] [address] [place] [address] Dr. Mariela Larkin THC Positive Abnormal NEGATIVE [facility] Comment on above: Performed By: #### A FPMAT #### [facility] [address] [place] [address] Dr. Mariela Larkin TYPE AND SCREENon 07-23-2022 TYPE AND SCREEN Antibody Screen NEGA TIVE Blood Bank Notes orignal specimen hemolyzed, repeat testing performed on redraw. Hemolysis Blood Bank Notes could cause false positive reaction. ABO Rh Typing AB Rh Positive Normal [facility] Comment on above: Performed By: #### C VDTBH #### [facility] [address] [place] [address] Dr. Mariela Larkin CBC AUTO DIFFon 07-22-2022 BASO # 0.0 103/ul Normal 0.0-0.[address] [facility] Comment on above: Performed By: #### C BC #### [facility] [address] [place] [address] Dr. Mariela Larkin Basophils/100 WBC (Bld) 0.2 % Normal 0.2-2.0 [facility] Comment on above: Performed By: #### C BC #### [facility] [address] [place] [address] Dr. Mariela Larkin EO # 0.2 103/ul Normal 0.0-0.[address] [facility] Comment on above: Performed By: #### C BC #### [facility] [address] [place] [address] Dr. Mariela Larkin Eosinophils/100 WBC (Bld) 1.0 % Normal 0.9-7.[address] [facility] Comment on above: Performed By: #### C BC #### [facility] [address] [place] [address] Dr. Mariela Larkin Erythrocyte distribution width (RBC) [Ratio] 16.3 % Critically high 11.0-15.[address] [facility] Comment on above: Performed By: #### C BC #### [facility] [address] [place] [address] Dr. Mariela Larkin Hematocrit (Bld) [Volume fraction] 34.0 % Critically low 36.0-48.[address] [facility] Comment on above: Performed By: #### C BC #### [facility] [address] [place] [address] Dr. Mariela Larkin Hemoglobin (Bld) [Mass/Vol] 11.0 g/dL Critically low 12.0-16.[address] [facility] Comment on above: Performed By: #### C BC #### [facility] [address] [place] [address] Dr. Mariela Larkin IG # 0.14 10e3/ul Critically high 0.00-0.[address] [facility] Comment on above: Performed By: #### C BC #### [facility] [address] [place] [address] Dr. Mariela Larkin IG % 0.9 % Critically high 0.0-0.[address] [facility] Comment on above: Performed By: #### C BC #### [facility] [address] [place] [address] Dr. Mariela Larkin LYMPH # 2.5 103/ul Normal 1.2-3.[address] [facility] Comment on above: Performed By: #### C BC #### [facility] [address] [place] [address] Dr. Mariela Larkin Lymphocytes/100 WBC (Bld) 15.9 % Critically low 20.5-60.[address] [facility] Comment on above: Performed By: #### C BC #### [facility] [address] [place] [address] Dr. Mariela Larkin MANUAL DIFF REQ NO Normal [facility] Comment on above: Performed By: #### C BC #### [facility] [address] [place] [address] Dr. Mariela Larkin MCH (RBC) [Entitic mass] 26.2 pg Critically low 26.7-34.[address] [facility] Comment on above: Performed By: #### C BC #### [facility] [address] [place] [address] Dr. Mariela Larkin MCHC (RBC) [Mass/Vol] 32.4 g/dL Normal 29.9-35.[address] [facility] Comment on above: Performed By: #### C BC #### [facility] [address] [place] [address] Dr. Mariela Larkin MCV (RBC) [Entitic vol] 81.0 fL Normal 81.0-99.0 [facility] Comment on above: Performed By: #### C BC #### [facility] [address] [place] [address] Dr. Mariela Larkin MONO # 0.9 103/ul Critically high 0.3-0.[address] [facility] Comment on above: Performed By: #### C BC #### [facility] [address] [place] [address] Dr. Mariela Larkin Monocytes/100 WBC (Bld) 5.5 % Normal 1.7-12.0 [facility] Comment on above: Performed By: #### C BC #### [facility] [address] [place] [address] Dr. Mariela Larkin NEUT # 11.9 103/ul Critically high 1.4-6.[address] [facility] Comment on above: Performed By: #### C BC #### [facility] [address] [place] [address] Dr. Mariela Larkin Neutrophils/100 WBC (Bld) 76.5 % Critically high 43.0-75.[address] [facility] Comment on above: Performed By: #### C BC #### [facility] [address] [place] [address] Dr. Mariela Larkin Platelet mean volume (Bld) [Entitic vol] 9.8 fL Normal 9.5-13.[address] [facility] Comment on above: Performed By: #### C BC #### [facility] [address] [place] [address] Dr. Mariela Larkin PLT 268 103/ul Normal 150-450 [facility] Comment on above: Performed By: #### C BC #### [facility] [address] [place] [address] Dr. Mariela Larkin RBC 4.20 106/ul Normal 4.20-5.[address] [facility] Comment on above: Performed By: #### C BC #### [facility] [address] [place] [address] Dr. Mariela Larkin WBC 15.6 103/ul Critically high 4.0-11.[address] [facility] Comment on above: Performed By: #### C BC #### [facility] [address] [place] [address] Dr. Mariela Larkin GROUP B STREP CULTUREon [...] F Tetracycline >=16 R F Normal [facility] Comment on above: Performed By: #### C VDTBH #### [facility] [address] [place] [address] Dr. Mariela Larkin CHLAMYDIA/GONOCOCCUS OMAIRA ( AB/URINE/PAPon 07-12-2022 Chlamydia trachomatis, OMAIRA Negative Normal Negative [facility] Comment on above: Performed By: #### C VDTBH #### [facility] [address] [place] [address] Dr. Mariela Larkin Neisseria gonorrhoeae, OMAIRA Negative Normal Negative [facility] Comment on above: Performed By: #### C VDTBH #### [facility] [address] [place] [address] Dr. Mariela Larkin VAGINITIS/VAGINOSIS DNA PROB Kulwinder 07-11-2022 Marilynn species Positive Abnormal Negative [facility] Comment on above: Performed By: #### C VDTBH #### [facility] [address] [place] [address] Dr. Mariela Larkin Gardnerella vaginalis Negative Normal Negative [facility] Comment on above: Performed By: #### C VDTBH #### [facility] [address] [place] [address] Dr. Mariela Larkin Trichomonas vaginalis Negative Normal Negative [facility] Comment on above: Performed By: #### C VDTBH #### [facility] [address] [place] [address] Dr. 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 Comment on above: Performed By: #### A FPMAT #### [facility] [address] [place] [address] Dr. Mariela Larkin Clarity (U) CLEAR Normal CLEAR [facility] Comment on above: Performed By: #### A FPMAT #### [facility] [address] [place] [address] Dr. Mariela Larkin Color (U) YELLOW Normal YELLOW [facility] Comment on above: Performed By: #### A FPMAT #### [facility] [address] [place] [address] Dr. Mariela Larkin Glucose Ql (U) Negative Normal NEGATIVE [facility] Comment on above: Performed By: #### A FPMAT #### [facility] [address] [place] [address] Dr. Mariela Larkin Hemoglobin Ql (U) Negative Normal NEGATIVE [facility] Comment on above: Performed By: #### A FPMAT #### [facility] [address] [place] [address] Dr. Mariela Larkin Ketones Ql (U) 15 mg/dl Abnormal NEGATIVE [facility] Comment on above: Performed By: #### A FPMAT #### [facility] [address] [place] [address] Dr. Mariela Larkin LEUKOCYTES Negative Normal NEGATIVE [facility] Comment on above: Performed By: #### A FPMAT #### [facility] [address] [place] [address] Dr. Mariela Larkin Nitrite Ql (U) Negative Normal NEGATIVE [facility] Comment on above: Performed By: #### A FPMAT #### [facility] [address] [address] [address] Mariela Larkin pH (U) 7.5 [pH] Normal 5-[address] [facility] Comment on above: Performed By: #### A FPMAT #### [facility] [address] [place] [address] Dr. Mariela Larkin SPEC GRAVITY 1.020 Normal 1.005-<=1. [address] [facility] Comment on above: Performed By: #### A FPMAT #### [facility] [address] [place] [address] Dr. Mariela Larkin UA PROTEIN TRACE Normal NEGATIVE/ TRACE [facility] Comment on above: Performed By: #### A FPMAT #### [facility] [address] [place] [address] Dr. Mariela Larkni UR MICRO IND NOT INDICATED Normal [facility] Comment on above: Performed By: #### A FPMAT #### [facility] [address] [place] [address] Dr. Mariela Larkin Urobilinogen Qn (U) 1.0 {Vidya'U}/dL Normal 0.2 - 1. [address] [facility] Comment on above: Performed By: #### A FPMAT #### [facility] [address] [place] [address] Dr. Mariela Larkin US PREG GROWTHon 06-21-2022 [...] by: YENNI ROSE Date: 2022-06-21 18:[address] [facility] GLUCOSE - 1HRon 05-07-2022 Glucose [Mass/Vol] 120 mg/dL Critically high 74-106 [facility] Comment on above: Performed By: #### G LU1HR #### [facility] [address] [place] [address] Dr. Mariela Larkin HEMOGRAM AND PLATELon 2021 Hematocrit (Bld) [Volume fraction] 32.6 % Critically low 36.0-48.[address] [facility] Comment on above: Performed By: #### A FPMAT #### [facility] [address] [place] [address] Dr. Mariela Larkin Hemoglobin (Bld) [Mass/Vol] 10.5 g/dL Critically low 12.0-16.[address] [facility] Comment on above: Performed By: #### A FPMAT #### [facility] [address] [place] [address] Dr. Mariela Larkin MCH (RBC) [Entitic mass] 28.2 pg Normal 26.7-34.[address] [facility] Comment on above: Performed By: #### A FPMAT #### [facility] [address] [place] [address] Dr. Mariela Larkin MCHC (RBC) [Mass/Vol] 32.2 g/dL Normal 29.9-35.[address] [facility] Comment on above: Performed By: #### A FPMAT #### [facility] [address] [place] [address] Dr. Mariela Larkin MCV (RBC) [Entitic vol] 87.4 fL Normal 81.0-99.0 [facility] Comment on above: Performed By: #### A FPMAT #### [facility] [address] [place] [address] Dr. Mariela Larkin PLT 242 103/ul Normal 150-[address] [facility] Comment on above: Performed By: #### A FPMAT #### [facility] [address] [place] [address] Dr. Mariela Larkin RBC 3.73 106/ul Critically low 4.20-5.[address] [facility] Comment on above: Performed By: #### A FPMAT #### [facility] [address] [place] [address] Dr. Mariela Larkin WBC 13.2 103/ul Critically high 4.0-11.[address] [facility] Comment on above: Performed By: #### A FPMAT #### [facility] [address] [place] [address] Dr. Mariela Larkin UA (CLEAN/CATCH) TOOL SETTER/MICRO I F IND.on 04-24-2022 Bilirubin Ql (U) Negative Normal NEGATIVE [facility] Comment on above: Performed By: #### U ACSIND #### [facility] [address] [place] [address] Dr. Mariela Larkin Clarity (U) CLEAR Normal CLEAR [facility] Comment on above: Performed By: #### U ACSIND #### [facility] [address] [place] [address] Dr. Mariela Larkin Color (U) YELLOW Normal YELLOW [facility] Comment on above: Performed By: #### U ACSIND #### [facility] [address] [place] [address] Dr. Mariela Larkin Glucose Ql (U) Negative Normal NEGATIVE [facility] Comment on above: Performed By: #### U ACSIND #### [facility] [address] [place] [address] Dr. Mariela Larkin Hemoglobin Ql (U) Negative Normal NEGATIVE [facility] Comment on above: Performed By: #### U ACSIND #### [facility] [address] [place] [address] Dr. Mariela Larkin Ketones Ql (U) TRACE Abnormal NEGATIVE [facility] Comment on above: Performed By: #### U ACSIND #### [facility] [address] [address] [address] Mariela Larkin LEUKOCYTES Negative Normal NEGATIVE [facility] Comment on above: Performed By: #### U ACSIND #### [facility] [address] [place] [address] Dr. Mariela Larkin Nitrite Ql (U) Negative Normal NEGATIVE [facility] Comment on above: Performed By: #### U ACSIND #### [facility] [address] [address] [address] Mariela Larkin pH (U) 8.0 [pH] Normal 5-9 [facility] Comment on above: Performed By: #### U ACSIND #### [facility] [address] [place] [address] Dr. Mariela Larkin SPEC GRAVITY 1.015 Normal 1.005-<=1. 025 [facility] Comment on above: Performed By: #### U ACSIND #### [facility] [address] [place] [address] Dr. Mariela Larkin UA PROTEIN Negative Normal NEGATIVE/ TRACE [facility] Comment on above: Performed By: #### U ACSIND #### [facility] [address] [place] [address] Dr. Mariela Larkin UR MICRO IND NOT INDICATED Normal [facility] Comment on above: Performed By: #### U ACSIND #### [facility] [address] [place] [address] Dr. Mariela Larkin Urobilinogen Qn (U) 0.2 {Vidya'U}/dL Normal 0.2 - 1. [address] [facility] Comment on above: Performed By: #### U ACSIND #### [facility] [address] [place] [address] Dr. Mariela Larkin US PREG ANATOMY SINGLEon [...] MARTIN VALVERDE Date: 2022-04-11 16:25 Normal [facility] AFP MATERNAL FOR SPINA BIFID Aon 03-09-2022 AFP MoM 1.59 Normal [facility] Comment on above: Performed By: #### A FPMAT #### [facility] [address] [address] [address] Mariela Larkin AFP Value 95.6 ng/mL Normal [facility] Comment on above: Performed By: #### A FPMAT #### [facility] [address] [address] [address] Mariela Larkin AFP, Serum for Spina Bifida Report Normal [facility] Comment on above: Performed By: #### A FPMAT #### [facility] [address] [address] [address] Mariela Larkin Comment Comment Normal [facility] Comment on above: Result Comment: Maryanne Hagen, Ph.D., [facility] Director . References: Available Upon Request. . Multiples Of Median Cutoffs For AFP Elevations Moran 2.5 Black 2.8 IDD 2.0 Twins 4.5 Abbreviation Definitions IDD - Insulin Dep Diabetes OSBR - Open Spina Bifida Risk . For further inquiries contact [facility] at [phone]. . This test was developed and its performance characteristics determined by [facility]. It has not been cleared or approved by the Food and Drug Administration. Performed By: #### A FPMAT #### [facility] [address] [address] [address] Mariela Grover Age Collection Date 18.4 weeks Normal [facility] Comment on above: Performed By: #### A FPMAT #### [facility] [address] [address] [address] Mariela Larkin Gestat, Age Based on MARILUZ Normal [facility] Comment on above: Result Comment: 07/11 Recalculations are not recommended when gestational dating by LMP and ultrasound are within 10 days. Performed By: #### A FPMAT #### [facility] [address] [address] [address] Mariela Larkin Insulin Dep Diabetes No Normal [facility] Comment on above: Performed By: #### A FPMAT #### [facility] [id number] Mariela Larkin Interpretation Comment Normal [facility] Comment on above: Result Comment: [...] Customer Services to discuss available options. The [employer] recommends amniocentesis be offered to women age 35 and older. Performed By: #### A FPMAT #### [facility] [address] [address] [address] Mariela Larkin [age] [address] [facility] Comment on above: Performed By: #### A FPMAT #### [facility] [address] [place] [address] Dr. Mariela Larkin Multiple Gestation No Normal [facility] Comment on above: Performed By: #### A FPMAT #### [facility] [address] [place] [address] Dr. Mariela Larkin OSBR Risk 1 IN 2154 [facility] Comment on above: Performed By: #### A FPMAT #### [facility] [address] [place] [address] Dr. Mariela Larkin PDF . [facility] Comment on above: Performed By: #### A FPMAT #### [facility] [address] [place] [address] Dr. Mariela Larkin Race Normal [facility] Comment on above: Performed By: #### A FPMAT #### [facility] [address] [place] [address] Dr. Mariela Larkin Test Results: Negative [facility] Comment on above: Performed By: #### A FPMAT #### [facility] [address] [place] [address] Dr. Mariela Larkin HEP B SURFACE ANTIGEN SCREEN on 01-27-2022 HBsAg Screen Negative Normal Negative [facility] Comment on above: Performed By: #### C VDTBH #### [facility] [address] [place] [address] Dr. Mariela Larkin HEPATITIS C VIRUS AB W/ REFL EX QUANTon 01-27-2022 HCV AB <0.1 Normal 0.0-0.[address] [facility] Comment on above: Performed By: #### A FPMAT #### [facility] [address] [place] [address] Dr. Mariela Larkin Interpretation: Comment [facility] Comment on above: Result Comment: Nega tive Not infected with HCV, unless recent infection is suspected or other evidence exists to indicate HCV infection. Performed By: #### A FPMAT #### [facility] [address] [place] [address] Dr. Mariela Larkin HIV 1 AND 2 WITH REFLEXon HIV Screen 4th Generation wRfx Non-Reactive Normal Non Reactive [facility] Comment on above: Result Comment: HIV Negative HIV-1/HIV-2 antibodies and HIV-1 p24 antigen were NOT detected. There is no laboratory evidence of HIV infection. Performed By: #### C VDTBH #### [facility] [address] [place] [address] Dr. Mariela Larkin RPR QUANTon 01-27-2022 Rapid Plasma Reagin, Quant Non-Reactive Normal NonRea<1:[address] [facility] Comment on above: Result Comment: Ottoniel kwon Note: This test does not meet current guidelines for screening and diagnosis of syphilis. This test is intended for following treatment response in patients being treated for syphilis infection. To screen for syphilis infection, a reflex cascade that includes both RPR and a treponema-specific assay should be utilized, such as Treponema pallidum (Syphilis) Screening [place]er (278886) or Rapid Plasma Reagin (RPR) Test With Reflex to Quantitative RPR and Confirmatory Treponema pallidum Antibodies (802419). Performed By: #### R PRQ #### [facility] [address] [place] [address] Dr. Mariela Larkin RUBELLA AB IGGon 01-27-2022 Rubella Antibodies, IgG 3.63 index Normal Immu ne >0.[address] [facility] Comment on above: Result Comment: Non- immune <0.90 Equivocal 0.90 - 0.99 Immune >0.99 Performed By: #### A FPMAT #### [facility] [address] [place] [address] Dr. Mariela Larkin CBC AUTO DIFFon 01-26-2022 BASO # 0.0 103/ul Normal 0.0-0.[address] [facility] Comment on above: Performed By: #### A FPMAT #### [facility] [address] [place] [address] Dr. Mariela Larkin Basophils/100 WBC (Bld) 0.2 % Normal 0.2-2.0 [facility] Comment on above: Performed By: #### A FPMAT #### [facility] [address] [place] [address] Dr. Mariela Larkin EO # 0.2 103/ul Normal 0.0-0.[address] [facility] Comment on above: Performed By: #### A FPMAT #### [facility] [address] [place] [address] Dr. Mariela Larkin Eosinophils/100 WBC (Bld) 2.5 % Normal 0.9-7.[address] [facility] Comment on above: Performed By: #### A FPMAT #### [facility] [address] [place] [address] Dr. Mariela Larkin Erythrocyte distribution width (RBC) [Ratio] 14.1 % Normal 11.0-15.[address] [facility] Comment on above: Performed By: #### A FPMAT #### [facility] [address] [place] [address] Dr. Mariela Larkin Hematocrit (Bld) [Volume fraction] 33.1 % Critically low 36.0-48.[address] [facility] Comment on above: Performed By: #### A FPMAT #### [facility] [address] [place] [address] Dr. Mariela Larkin Hemoglobin (Bld) [Mass/Vol] 11.1 g/dL Critically low 12.0-16.[address] [facility] Comment on above: Performed By: #### A FPMAT #### [facility] [address] [place] [address] Dr. Mariela Larkin IG # 0.03 10e3/ul Normal 0.00-0.[address] [facility] Comment on above: Performed By: #### A FPMAT #### [facility] [address] [place] [address] Dr. Mariela Larkin IG % 0.3 % Normal 0.0-0.[address] [facility] Comment on above: Performed By: #### A FPMAT #### [facility] [address] [place] [address] Dr. Mariela Larkin LYMPH # 1.1 103/ul Critically low 1.2-3.[address] [facility] Comment on above: Performed By: #### A FPMAT #### [facility] [address] [place] [address] Dr. Mariela Larkin Lymphocytes/100 WBC (Bld) 11.7 % Critically low 20.5-60.[address] [facility] Comment on above: Performed By: #### A FPMAT #### [facility] [address] [place] [address] Dr. Mariela Larkin MANUAL DIFF REQ NO Normal [facility] Comment on above: Performed By: #### A FPMAT #### [facility] [address] [place] [address] Dr. Mariela Larkin MCH (RBC) [Entitic mass] 29.1 pg Normal 26.7-34.[address] [facility] Comment on above: Performed By: #### A FPMAT #### [facility] [address] [place] [address] Dr. Mariela Larkin MCHC (RBC) [Mass/Vol] 33.5 g/dL Normal 29.9-35.[address] [facility] Comment on above: Performed By: #### A FPMAT #### [facility] [address] [place] [address] Dr. Mariela Larkin MCV (RBC) [Entitic vol] 86.9 fL Normal 81.0-99.0 [facility] Comment on above: Performed By: #### A FPMAT #### [facility] [address] [place] [address] Dr. Mariela Larkin MONO # 0.4 103/ul Normal 0.3-0.[address] [facility] Comment on above: Performed By: #### A FPMAT #### [facility] [address] [place] [address] Dr. Mariela Larkin Monocytes/100 WBC (Bld) 4.0 % Normal 1.7-12.0 [facility] Comment on above: Performed By: #### A FPMAT #### [facility] [address] [place] [address] Dr. Mariela Larkin NEUT # 7.5 103/ul Critically high 1.4-6.[address] [facility] Comment on above: Performed By: #### A FPMAT #### [facility] [address] [place] [address] Dr. Mariela Larkin Neutrophils/100 WBC (Bld) 81.3 % Critically high 43.0-75.[address] [facility] Comment on above: Performed By: #### A FPMAT #### [facility] [address] [place] [address] Dr. Mariela Larkin Platelet mean volume (Bld) [Entitic vol] 9.6 fL Normal 9.5-13.5 [facility] Comment on above: Performed By: #### A FPMAT #### [facility] [address] [place] [address] Dr. Mariela Larkin PLT 225 103/ul Normal 150-450 [facility] Comment on above: Performed By: #### A FPMAT #### [facility] [address] [place] [address] Dr. Mariela Larkin RBC 3.81 106/ul Critically low 4.20-5.40 [facility] Comment on above: Performed By: #### A FPMAT #### [facility] [address] [place] [address] Dr. Mariela Larkin WBC 9.3 103/ul Normal 4.0-11.0 [facility] Comment on above: Performed By: #### A FPMAT #### [facility] [address] [place] [address] Dr. Mariela Larkin CULTURE URINEon 01-26-2022 CULTURE URINE Culture Observations : No growth Normal [facility] Comment on above: Performed By: #### U RCX #### [facility] [address] [place] [address] Dr. Mariela Larkin GLYCOHEMOGLOBIN A1Con 2021 ADA RECOMMENDATION SEE BELOW Normal [facility] Comment on above: Result Comment: ADA RECOMMENDED LIMIT 4.0 - 6.0 ADA THERAPEUTIC TARGET < 7.0 ACTION SUGGESTED > 7.0 Performed By: #### A FPMAT #### [facility] [address] [address] [address] Mariela Larkin Glucose [Mass/Vol] 94 mg/dL Normal [facility] Comment on above: Performed By: #### A FPMAT #### [facility] [address] [address] [address] Mariela Larkin HbA1c (Bld) [Mass fraction] 4.9 % Normal 4.5-6.[address] [facility] Comment on above: Performed By: #### A FPMAT #### [facility] [address] [place] [address] Dr. Mariela Larkin DHRUV BOX TEST PT SEND OUTo n 01-26-2022 SENT TO REF LAB 01/26/[address] [facility] Comment on above: Performed By: #### C VDTBH #### [facility] [address] [place] [address] Dr. Mariela Larkin TYPE AND SCREENon 01-26-2022 TYPE AND SCREEN Negative Normal [facility] Comment on above: Performed By: #### T NS #### [facility] [address] [place] [address] Dr. Mariela Larkin US PREG TVon 12-25-2021 [...] by: MARTIN VALVERDE Date: 2021-12-25 11:[address] [facility] Vital Signs Date Time Vital Sign Value Performing Clinician Facility 05-18-2025 10:49-0400 Body mass index (BMI) [Ratio] 24.51 kg/m2 Demarco Kirby DO Work Phone: [facility] 05-18-2025 10:49-0400 Body weight 60.78 kg Demarco Kirby DO Work Phone: [facility] 05-18-2025 10:49-0400 Diastolic blood pressure 68 mm[Hg] Demarco Kirby DO Work Phone: [facility] 05-18-2025 10:49-0400 Systolic blood pressure 110 mm[Hg] Demarco Kirby DO Work Phone: [facility] 05-13-2025 10:13-0400 Body mass index (BMI) [Ratio] 24.14 kg/m2 Demarco Kirby DO Work Phone: [facility] 05-13-2025 10:13-0400 Body weight 59.88 kg Demarco Kirby DO Work Phone: [facility] 05-13-2025 10:13-0400 Diastolic blood pressure 70 mm[Hg] Demarco Kirby DO Work Phone: [facility] 05-13-2025 10:13-0400 Systolic blood pressure 110 mm[Hg] Demarco Kirby DO Work Phone: [facility] 04-22-2025 10:57-0400 Body mass index (BMI) [Ratio] 23.5 kg/m2 Demarco Kirby DO Work Phone: [facility] 04-22-2025 10:57-0400 Body weight 58.29 kg Demarco Kirby DO Work Phone: [facility] 04-22-2025 10:57-0400 Diastolic blood pressure 70 mm[Hg] Demarco Kirby DO Work Phone: [facility] 04-22-2025 10:57-0400 Systolic blood pressure 102 mm[Hg] Demarco Kirby DO Work Phone: [facility] 03-29-2025 15:55-0400 Body mass index (BMI) [Ratio] 22.54 kg/m2 Cira BROWN Work Phone: [facility] 03-29-2025 15:55-0400 Body weight 55.91 kg Cira BROWN Work Phone: [facility] 03-29-2025 15:55-0400 Diastolic blood pressure 64 mm[Hg] Cira Mihaela BROWN Work Phone: [facility] 03-29-2025 15:55-0400 Systolic blood pressure 116 mm[Hg] Cira Christiansonsissy BROWN Work Phone: [facility] 02-22-2025 14:10-0400 Body mass index (BMI) [Ratio] 21.29 kg/m2 Demarco Kirby DO Work Phone: [facility] 02-22-2025 14:10-0400 Body weight 52.8 kg Demarco Kirby DO Work Phone: [facility] 02-22-2025 14:10-0400 Diastolic blood pressure 66 mm[Hg] Demarco Kirby DO Work Phone: [facility] 02-22-2025 14:10-0400 Systolic blood pressure 106 mm[Hg] Demarco Kirby DO Work Phone: [facility] 01-30-2025 11:21-0400 Body height 154.94 cm Divina Araya DO Work Phone: [facility] 01-30-2025 11:21-0400 Body weight 49.89 kg Divina Araya DO Work Phone: [facility] 01-30-2025 10:49-0400 Diastolic blood pressure 66 mm[Hg] Divina Araya DO Work Phone: [facility] 01-30-2025 10:49-0400 Heart rate 67 /min GSofia Araya DO Work Phone: [facility] 01-30-2025 10:49-0400 Respiratory rate 18 /min GSofia Greenan DO Work Phone: [facility] 01-30-2025 10:49-0400 SaO2% (BldA) [Mass fraction] 99 % Divina Araya DO Work Phone: [facility] 01-30-2025 10:49-0400 Systolic blood pressure 103 mm[Hg] Divina Araya DO Work Phone: [facility] 01-30-2025 08:26-0400 Body temperature 98.2 [degF] Divina Araya DO Work Phone: [facility] 01-30-2025 08:23-0400 Body height 154.94 cm Divina Araya DO Work Phone: [facility] 01-30-2025 08:23-0400 Body weight 51.8 kg Divina Araya DO Work Phone: [facility] 01-25-2025 10:37-0400 Body mass index (BMI) [Ratio] 20.58 kg/m2 Susan Troy MED SPEC Work Phone: [facility] 01-25-2025 10:37-0400 Body weight 51.03 kg Susan Troy MED SPEC Work Phone: [facility] 01-25-2025 10:37-0400 Diastolic blood pressure 60 mm[Hg] Susan Troy MED SPEC Work Phone: [facility] 01-25-2025 10:37-0400 Systolic blood pressure 100 mm[Hg] Susan Troy MED SPEC Work Phone: [facility] 12-07-2024 16:28-0400 Body mass index (BMI) [Ratio] 18.68 kg/m2 Demarco Kirby DO Work Phone: [facility] 12-07-2024 16:28-0400 Body weight 46.32 kg Demarco Kirby DO Work Phone: [facility] 12-07-2024 16:28-0400 Diastolic blood pressure 68 mm[Hg] Demarco Kirby DO Work Phone: [facility] 12-07-2024 16:28-0400 Systolic blood pressure 110 mm[Hg] Demarco Orr DO Work Phone: [facility] 11-05-2024 13:27-0500 Body mass index (BMI) [Ratio] 17.96 kg/m2 [facility] Nurse [facility] 11-05-2024 13:27-0500 Body weight 44.54 kg [facility] Nurse [facility] 11-05-2024 13:27-0500 Diastolic blood pressure 60 mm[Hg] [facility] Nurse [facility] 11-05-2024 13:27-0500 Systolic blood pressure 100 mm[Hg] [facility] Nurse [facility] 09-21-2024 20:40-0500 Body temperature 97.9 [degF] Paramjit Tupa DO Work Phone: [facility] 09-21-2024 20:40-0500 Diastolic blood pressure 67 mm[Hg] Paramjit Tupa DO Work Phone: [facility] 09-21-2024 20:40-0500 Heart rate 67 /min Paramjit Tupa DO Work Phone: [facility] 09-21-2024 20:40-0500 Respiratory rate 20 /min Paramjit Tupa DO Work Phone: [facility] 09-21-2024 20:40-0500 SaO2% (BldA) [Mass fraction] 96 % Paramjit Tupa DO Work Phone: [facility] 09-21-2024 20:40-0500 Systolic blood pressure 112 mm[Hg] Paramjit Tupa DO Work Phone: [facility] 09-21-2024 20:39-0500 Body height 157.48 cm Paramjit Tupa DO Work Phone: [facility] 09-21-2024 20:39-0500 Body weight 45.35 kg Paramjit Tupa DO Work Phone: [facility] 08-25-2024 15:22-0500 Body mass index (BMI) [Ratio] 17.01 kg/m2 Anum Cody MED SPEC Work Phone: [facility] 08-25-2024 15:22-0500 Body temperature 97.7 [degF] Anum Cody MED SPEC Work Phone: [facility] 08-25-2024 15:22-0500 Body weight 42.19 kg Anum Cody MED SPEC Work Phone: [facility] 08-25-2024 15:22-0500 Diastolic blood pressure 80 mm[Hg] Anum Cody MED SPEC Work Phone: [facility] 08-25-2024 15:22-0500 Heart rate 92 /min Anum Cody MED SPEC Work Phone: [facility] 08-25-2024 15:22-0500 SaO2% (BldA) [Mass fraction] 99 % Anum Cody MED SPEC Work Phone: [facility] 08-25-2024 15:22-0500 Systolic blood pressure 120 mm[Hg] Anum Cody MED SPEC Work Phone: [facility] 08-02-2024 09:20-0500 Body mass index (BMI) [Ratio] 17.01 kg/m2 Carlos Zaragoza MD, IBCLC Work Phone: [facility] 08-02-2024 09:20-0500 Body temperature 97.81 [degF] Carlos Zaragoza MD, IBCLC Work Phone: [facility] 08-02-2024 09:20-0500 Body weight 42.19 kg Carlos Zaragoza MD, IBCLC Work Phone: [facility] 08-02-2024 09:20-0500 Diastolic blood pressure 60 mm[Hg] Carlos Zaragoza MD, IBCLC Work Phone: [facility] 08-02-2024 09:20-0500 Heart rate 91 /min Carlos Zaragoza MD, IBCLC Work Phone: [facility] 08-02-2024 09:20-0500 SaO2% (BldA) [Mass fraction] 99 % Carlos Zaragoza MD, IBCLC Work Phone: [facility] 08-02-2024 09:20-0500 Systolic blood pressure 112 mm[Hg] Carlos Zaragoza MD, IBCLC Work Phone: [facility] 06-29-2024 10:37-0400 Body height 156.21 cm DO Divina Menardlauraskylar Work Phone: [facility] 06-29-2024 10:37-0400 Body temperature 98 [degF] DO Divina Araya Work Phone: [facility] 06-29-2024 10:37-0400 Body weight 40.9 kg DO Divina Menardlauraskylar Work Phone: [facility] 06-29-2024 10:37-0400 Diastolic blood pressure 68 mm[Hg] DO Divina Menardlauraskylar Work Phone: [facility] 06-29-2024 10:37-0400 Heart rate 76 /min DO Divina Araya Work Phone: [facility] 06-29-2024 10:37-0400 Respiratory rate 16 /min DO Divina Araya Work Phone: [facility] 06-29-2024 10:37-0400 SaO2% (BldA) [Mass fraction] 100 % DO Divina Araya Work Phone: [facility] 06-29-2024 10:37-0400 Systolic blood pressure 104 mm[Hg] DO Divina Araya Work Phone: [facility] 04-29-2024 15:45-0400 Body height 157.5 cm Diego Araya DO Work Phone: [facility] 04-29-2024 15:45-0400 Body mass index (BMI) [Ratio] 16.97 kg/m2 Diego Araya DO Work Phone: [facility] 04-29-2024 15:45-0400 Body temperature 98.71 [degF] Diego Araya DO Work Phone: [facility] 04-29-2024 15:45-0400 Body weight 42.09 kg Diego Araya DO Work Phone: [facility] 04-29-2024 15:45-0400 Diastolic blood pressure 64 mm[Hg] Diego Araya DO Work Phone: [facility] 04-29-2024 15:45-0400 Heart rate 83 /min Diego Araya DO Work Phone: [facility] 04-29-2024 15:45-0400 SaO2% (BldA) [Mass fraction] 98 % Diego Araya DO Work Phone: [facility] 04-29-2024 15:45-0400 Systolic blood pressure 116 mm[Hg] Diego Araya DO Work Phone: [facility] 04-17-2024 13:15-0400 Diastolic blood pressure 62 mm[Hg] DO Divina Araya Work Phone: [facility] 04-17-2024 13:15-0400 Heart rate 71 /min DO Divina Araya Work Phone: [facility] 04-17-2024 13:15-0400 Respiratory rate 18 /min DO Divina Araya Work Phone: [facility] 04-17-2024 13:15-0400 SaO2% (BldA) [Mass fraction] 97 % DO Divina Araya Work Phone: [facility] 04-17-2024 13:15-0400 Systolic blood pressure 113 mm[Hg] DO Divina Araya Work Phone: [facility] 04-17-2024 09:49-0400 Body height 154.94 cm DO Divina Araya Work Phone: [facility] 04-17-2024 09:49-0400 Body temperature 98 [degF] DO Divina Araya Work Phone: [facility] 04-17-2024 09:49-0400 Body weight 42.1 kg DO Divina Araya Work Phone: [facility] 10-13-2023 14:07-0500 Body temperature 98.4 [degF] DO Divina Araya Work Phone: [facility] 10-13-2023 14:07-0500 Diastolic blood pressure 56 mm[Hg] DO Divina Araya Work Phone: [facility] 10-13-2023 14:07-0500 Heart rate 78 /min DO Divina Araya Work Phone: [facility] 10-13-2023 14:07-0500 Respiratory rate 18 /min DO Divina Araya Work Phone: [facility] 10-13-2023 14:07-0500 SaO2% (BldA) [Mass fraction] 100 % DO Divina Araya Work Phone: [facility] 10-13-2023 14:07-0500 Systolic blood pressure 103 mm[Hg] DO Divina Araya Work Phone: [facility] 10-13-2023 11:52-0500 Body height 154.94 cm DO Divina Araya Work Phone: [facility] 10-13-2023 11:52-0500 Body weight 43 kg DO Divina Araya Work Phone: [facility] 09-28-2023 16:24-0500 Body temperature 98.1 [degF] DO Divina Araya Work Phone: [facility] 09-28-2023 16:24-0500 Diastolic blood pressure 62 mm[Hg] DO Divina Araya Work Phone: [facility] 09-28-2023 16:24-0500 Heart rate 84 /min DO Divina Menardlauraskylar Work Phone: [facility] 09-28-2023 16:24-0500 Respiratory rate 24 /min DO Divina Araya Work Phone: [facility] 09-28-2023 16:24-0500 SaO2% (BldA) [Mass fraction] 99 % DO Divina Araya Work Phone: [facility] 09-28-2023 16:24-0500 Systolic blood pressure 103 mm[Hg] DO Divina Araya Work Phone: [facility] 09-28-2023 13:15-0500 Body height 156.21 cm DO Divina Araya Work Phone: [facility] 09-28-2023 13:15-0500 Body weight 40.75 kg DO Divina Araya Work Phone: [facility] 09-10-2023 09:49-0500 Diastolic blood pressure 59 mm[Hg] DO Divina Araya Work Phone: [facility] 09-10-2023 09:49-0500 Heart rate 65 /min DO Divina Araya Work Phone: [facility] 09-10-2023 09:49-0500 Respiratory rate 16 /min DO Divina Araya Work Phone: [facility] 09-10-2023 09:49-0500 SaO2% (BldA) [Mass fraction] 100 % DO Divina Araya Work Phone: [facility] 09-10-2023 09:49-0500 Systolic blood pressure 95 mm[Hg] DO Divina Araya Work Phone: [facility] 09-10-2023 07:42-0500 Body height 156.21 cm DO Divina Araya Work Phone: [facility] 09-10-2023 07:42-0500 Body weight 40.82 kg DO Divina Araya Work Phone: [facility] 06-03-2023 10:35-0400 Diastolic blood pressure 71 mm[Hg] DO Divina Araya Work Phone: [facility] 06-03-2023 10:35-0400 Heart rate 63 /min DO Divina Araya Work Phone: [facility] 06-03-2023 10:35-0400 Respiratory rate 16 /min DO Divina Araya Work Phone: [facility] 06-03-2023 10:35-0400 SaO2% (BldA) [Mass fraction] 100 % DO Divina Araya Work Phone: [facility] 06-03-2023 10:35-0400 Systolic blood pressure 106 mm[Hg] DO Divina Araya Work Phone: [facility] 06-03-2023 08:46-0400 Body height 157.48 cm DO Divina Araya Work Phone: [facility] 06-03-2023 08:46-0400 Body weight 48.98 kg DO Divina Araya Work Phone: [facility] 04-25-2023 15:15-0400 Body height 165.35 cm Imad Asaad Other [facility] [employer] Other 04-25-2023 15:15-0400 Body mass index (BMI) [Ratio] 17.09 kg/m2 Imad Asaad Other [employer] [facility] [employer] Other 04-25-2023 15:15-0400 Body weight 46.72 kg Imad Asaad Other [employer] Other 04-25-2023 15:15-0400 Diastolic blood pressure 68 mm[Hg] Imad Asaad Other [employer] Other 04-25-2023 15:15-0400 Systolic blood pressure 110 mm[Hg] Imad Asaad Other [facility] [employer] Other 12-29-2022 15:12-0400 Body temperature 98.9 [degF] DO Divina Araya Work Phone: [facility] 12-29-2022 15:12-0400 Diastolic blood pressure 64 mm[Hg] DO Divina Araya Work Phone: [facility] 12-29-2022 15:12-0400 Heart rate 65 /min DO Divina Araya Work Phone: [facility] 12-29-2022 15:12-0400 Respiratory rate 18 /min DO Divina Araya Work Phone: [facility] 12-29-2022 15:12-0400 SaO2% (BldA) [Mass fraction] 98 % DO Divina Araya Work Phone: [facility] 12-29-2022 15:12-0400 Systolic blood pressure 112 mm[Hg] DO Divina Araya Work Phone: [facility] 12-29-2022 12:53-0400 Body height 154.94 cm DO Divina Araya Work Phone: [facility] 12-29-2022 12:53-0400 Body weight 53.1 kg DO Divina Araya Work Phone: [facility] 11-06-2022 14:21-0500 Body temperature 98.6 [degF] Kayy Gudimella [facility] 11-06-2022 14:21-0500 Heart rate 77 /min Kayy Gudimella [facility] 11-06-2022 14:21-0500 SaO2% (BldA) [Mass fraction] 98 % Kayy Gudimella [facility] 03-09-2022 02: Body weight 48.[address] DEMARCO ORR [facility] Comment on above: Performed By: #### AFPMAT #### [facility] [address] [address] [address] Mariela Larkin Encounters Encounter Date Encounter Type Care Provider Facility Start: 05-18-2025 End: 05-18-2025 Bamboo flowsheet Demarco Kirby DO Work Phone: [facility] Start: 05-18-2025 End: 05-18-2025 Bamboo flowsheet Demarco Kirby DO Work Phone: [facility] Start: 05-18-2025 End: 05-18-2025 Office outpatient visit 15 minutes Demarco Kirby DO Work Phone: [facility] Comment on above: Third trimester preg jorge ([facility]); 37 weeks gestation of ([facility]) Start: 05-18-2025 End: 05-18-2025 ambulatory DEMARCO KIRBY Not Available Start: 05-13-2025 End: 05-13-2025 Bamboo flowsheet Demarco Kirby DO Work Phone: [facility] Start: 05-13-2025 End: 05-21-2025 Bamboo flowsheet Demarco Kirby DO Work Phone: [facility] Start: 05-13-2025 End: 05-21-2025 Clinisync Result Encounter Generic External Data Provider [facility] External Department Unsolicited Start: 05-13-2025 End: 05-14-2025 External Result Encounter Demarco Kirby DO Work Phone: [facility] Unsolicited Start: 05-13-2025 End: 05-13-2025 ambulatory DEMARCO KIRBY Not Available Start: 05-13-2025 End: 05-13-2025 Office outpatient visit 15 minutes Demarco Kirby DO Work Phone: [facility] Comment on above: 36 weeks gestation o f ([facility]); Third trimester ([facility]); Gastroesophageal reflux in ([facility]); Exposure to STD; Vaginal discharge Start: 05-03-2025 End: 05-03-2025 ambulatory CIRA CHAIREZ Not Available Start: 05-03-2025 End: 05-03-2025 Office outpatient visit 15 minutes Cira BROWN Work Phone: [facility] Comment on above: Third trimester preg jorge ([facility]); 35 weeks gestation of ([facility]) Start: 05-03-2025 End: 05-03-2025 Bamboo flowsheet Cira BROWN Work Phone: [facility] Start: 05-03-2025 End: 05-03-2025 Bamboo flowsheet Cira BROWN Work Phone: [facility] Start: 04-22-2025 End: 04-22-2025 Office outpatient visit 15 minutes Demarco Kirby DO Work Phone: [facility] Comment on above: Third trimester preg jorge ([facility]); 33 weeks gestation of ([facility]) Start: 04-22-2025 End: 04-22-2025 ambulatory DEMARCO KIRBY Not Available Start: 03-29-2025 End: 03-29-2025 Office outpatient visit 15 minutes Cira BROWN Work Phone: [facility] Comment on above: Size of fetus incons istent with dates in first trimester ([facility]) (Primary Dx); Third trimester ([facility]); 30 weeks gestation of ([facility]); Gastroesophageal reflux in ([facility]) Start: 03-29-2025 End: 03-29-2025 ambulatory CIRA CHAIREZ Not Available Start: 03-29-2025 End: 03-29-2025 Bamboo flowsheet Cira BROWN Work Phone: [facility] Start: 03-29-2025 End: 03-29-2025 Bamboo flowsheet Cira BROWN Work Phone: [facility] Start: 03-29-2025 End: 03-29-2025 Clinisync Result Encounter Generic External Data Provider [facility] External Department Unsolicited Start: 02-24-2025 End: 02-24-2025 Emergency department patient visit Divina Araya Facility:[facility] Start: 02-22-2025 End: 02-22-2025 Bamboo flowsheet Demarco Kirby DO Work Phone: [facility] Start: 02-22-2025 End: 02-22-2025 Bamboo flowsheet Demarco Kirby DO Work Phone: [facility] Start: 02-22-2025 End: 02-22-2025 Office outpatient visit 15 minutes Demarco Kirby DO Work Phone: [facility] Comment on above: Second trimester pre gnancy ([facility]); 25 weeks gestation of ([facility]); Diabetes mellitus screening; Gastroesophageal reflux in ([facility]) Start: 02-22-2025 End: 02-22-2025 ambulatory DEMARCO KIRBY Not Available Start: 01-30-2025 End: 01-30-2025 Patient encounter procedure Divina Araya DO Work Phone: [facility] - O/P Start: 01-30-2025 End: 01-30-2025 ambulatory Divina Araya DO Work Phone: [facility] Work Phone: Start: 01-30-2025 End: 01-30-2025 Emergency department patient visit Divina Araya DO Work Phone: [facility] Work Phone: Start: 01-27-2025 End: 01-27-2025 Clinisync Result Encounter Generic External Data Provider [facility] External Department Unsolicited Start: 01-27-2025 End: 01-27-2025 Clinisync Result Encounter Generic External Data Provider [facility] External Department Unsolicited Start: 01-25-2025 End: 01-25-2025 Bamboo flowsheet Susan Troy MED SPEC Work Phone: [facility] Start: 01-25-2025 End: 01-26-2025 Bamboo flowsheet Susan Troy MED SPEC Work Phone: [facility] Start: 01-25-2025 End: 01-26-2025 External Result Encounter Susan Troy MED SPEC Work Phone: [facility] External Department Unsolicited Start: 01-25-2025 End: 01-25-2025 ambulatory SUSAN TROY Not Available Start: 01-25-2025 End: 01-25-2025 Office outpatient visit 15 minutes Susan Woodrow MED SPEC Work Phone: [facility] Comment on above: Second trimester pre gnancy; 21 weeks gestation of ; Screening, , for anatomic survey; Vaginal discharge; STD exposure; Well woman exam with routine gynecological exam Start: 01-25-2025 End: 01-25-2025 Patient encounter procedure Susan Troy MED SPEC Work Phone: [facility] Start: 12-07-2024 End: [...] [facility] Work Phone: Start: 09-03-2024 End: 09-03-2024 Emergency department patient visit Paramjit Yanes DO Work Phone: [facility] Work Phone: Start: 08-25-2024 End: 08-25-2024 Office outpatient visit 25 minutes Anum L Glo MED SPEC Work Phone: [facility] Comment on above: Late period (Primary Dx); Unprotected sex Start: 08-25-2024 End: 08-25-2024 ambulatory ANUM L GLO Not Available Start: 08-25-2024 End: 08-25-2024 Bamboo flowsheet Anum L Ramseur MED SPEC Work Phone: [facility] Start: 08-25-2024 End: 08-25-2024 Bamboo flowsheet Anum L Ramseur MED SPEC Work Phone: [facility] Start: 08-02-2024 End: 08-02-2024 Office outpatient visit 15 minutes Carlos Zaragoza MD, IBCLC Work Phone: [facility] Comment on above: Viral URI with cough (Primary Dx) Start: 08-02-2024 End: 08-02-2024 ambulatory CARLOS ZARAGOZA Not Available Start: 06-29-2024 ambulatory Frank Castillo Facility:[facility] Start: 06-29-2024 Registered Recurring Paramjit Cynthia gibran DO Work Phone: [facility] Start: 06-29-2024 End: 06-29-2024 Emergency department patient visit DO Divina Araya Work Phone: [facility] Work Phone: Start: 04-29-2024 End: 04-29-2024 Office outpatient visit 25 minutes Diego Araya DO Work Phone: [facility] Comment on above: PTSD (post-traumatic stress disorder) ([facility]) (Primary Dx); Bipolar 1 disorder (CMS/HCC); Allergic urticaria; Marijuana abuse; Abdominal discomfort; Mild intermittent asthma, unspecified whether complicated (CMS/HCC) Start: 04-29-2024 End: 04-29-2024 Bamboo flowsheet Diego Araya DO Work Phone: [facility] Start: 04-29-2024 End: 04-29-2024 Bamboo flowsheet Diego Araya DO Work Phone: [facility] Start: 04-17-2024 End: 04-17-2024 Emergency department patient visit DO Divina Araya Work Phone: [facility] Work Phone: Start: 10-13-2023 End: 10-13-2023 Emergency department patient visit DO Divina Araya Work Phone: [facility] Work Phone: Start: 09-28-2023 End: 09-28-2023 Emergency department patient visit DO Divina Araya Work Phone: [facility] Work Phone: Start: 09-10-2023 End: 09-10-2023 Admission to same day surgery center DO Divina Araya Work Phone: [facility] Work Phone: Start: 09-10-2023 End: 09-10-2023 ambulatory DO Divina Greenskylar Work Phone: [facility] Work Phone: Start: 07-27-2023 End: 07-27-2023 ambulatory DO Divina Araya Work Phone: [facility] Work Phone: Start: 07-27-2023 End: 07-27-2023 Patient encounter procedure DO Divina Araya Work Phone: [facility]CT Scan [place] Work Phone: Start: 07-11-2023 End: 07-11-2023 ambulatory Imad Asaad Other [employer] Other Start: 07-11-2023 Telephone encounter Imad Asaad [facility] Start: 06-03-2023 End: 06-03-2023 Admission to same day surgery center DO Divina Araya Work Phone: [facility] Work Phone: Start: 06-03-2023 End: 06-03-2023 ambulatory DO Divina Araya Work Phone: [facility] Work Phone: Start: 05-08-2023 End: 05-08-2023 ambulatory DO Divina Araya Work Phone: [facility] Work Phone: Start: 05-08-2023 End: 05-08-2023 Patient encounter procedure DO Divina Araya Work Phone: [facility] [place] Work Phone: Start: 04-25-2023 End: 04-25-2023 ambulatory Imad Asaad Other [employer] Other Start: 04-25-2023 [facility] visit new patient Imad Asaad [facility] Start: 12-29-2022 End: 12-29-2022 Emergency department patient visit DO Divina Menardlottie Work Phone: [facility] Work Phone: Start: 11-06-2022 End: 11-07-2022 ambulatory Kayy Gudimella Facility:[facility] Start: 11-06-2022 End: 11-06-2022 Patient encounter procedure Kayy Gudimella [facility] Start: 07-22-2022 End: 07-24-2022 [...] Date Procedure Procedure Detail Performing Clinician Start: 05-18-2025 Urnls dip stick/tablet rgnt non-auto w/o micrscp Demarco Kirby DO Work Phone: Start: 05-13-2025 RECURRENT VAGINITIS (HTRX) Demarco Orr D O Work Phone: Start: 05-13-2025 Urnls dip stick/tablet rgnt non-auto w/o micrscp Demarco Kirby DO Work Phone: Start: 05-13-2025 ORGANISM IDENTIFICATION Generic External Data Provider Start: 05-13-2025 STREP GP B CULTURE+RFLX Generic External Data Provider Start: 05-03-2025 Urnls dip stick/tablet rgnt non-auto [...] Start: 01-25-2025 RECURRENT VAGINITIS (HTRX) Susan head MED SPEC Work Phone: Start: 01-25-2025 Urnls dip stick/tablet rgnt non-auto w/o micrscp Susan Troy MED SPEC Work Phone: Start: 12-03-2024 BOX TEST Demarco Kirby DO Work Phone: Start: 11-05-2024 Urnls dip stick/tablet rgnt non-auto w/o micrscp Dmearco Kirby DO Work Phone: Start: 09-21-2024 Plain X-ray of right shoulder Paramjit brown DO Work Phone: Start: 08-25-2024 Gonadotropin chorionic quantitative Lamar [facility] Work Phone: Start: 08-25-2024 Urine test visual color cmprsn meths Anum [facility] Work Phone: Start: 10-13-2023 Plain chest X-ray [...] Treatment Date Care Activity Detail Author Start: 05-25-2025 End: 05-25-2025 Patient encounter procedure 05/25/2025 10:10 AM EDT Routine [facility] [address] [place] [address] Demarco Orr DO [address] [place] [address] [facility] Start: 05-18-2025 End: 05-18-2025 Patient encounter procedure [facility] Comment on above: Arrived Start: 05-13-2025 End: 05-13-2026 CULTURE, GROUP B STREP WITH SUSCEPTIBLITY CULTURE, GROUP B STREP WITH SUSCEPTIBLITY Lab Routine Third trimester ([facility]) Expected: 05/13/2025, Expires: 05/13/2026 [facility] Work Phone: Comment on above: Expected: 05/13/2025 , Expires: 05/13/2026 Start: 05-13-2025 End: 05-13-2025 Patient encounter procedure 05/13/2025 9:30 AM EDT Routine [facility] [address] [place] [phone] Demarco Orr, DO [address] [place] [address] [facility] Start: 05-10-2025 Influenza vaccination [facility] Start: 05-06-2025 End: 05-06-2025 Patient encounter procedure 05/06/2025 10:50 AM EDT Routine [facility] [address] [facility] [place] [id number] Cira Chairez PA [address] [place] [address] [facility] Start: 04-13-2025 End: 04-13-2025 Patient encounter procedure 04/13/2025 10:30 AM EDT Routine [facility] [address] [place] [id number] Demarco Orr, DO [address] [place] [address] [facility] Start: 04-13-2025 End: 04-13-2025 Professional / ancillary services management 04/13/2025 10:00 AM EDT Ancillary Procedure [facility] [address] [place] [phone] [facility] Start: 03-29-2025 End: 03-29-2025 Patient encounter procedure 03/29/2025 3:50 PM EDT Routine [facility] [address] [place] [phone] Cira Chairez PA [address] [place], [place] [id number] Arrived [facility] Comment on above: Arrived Start: 03-29-2025 End: 07-30-2025 US for US OB follow up transabdominal approach Imaging Routine Size of fetus inconsistent with dates in first trimester ([facility]) Expected: 03/29/2025, Expires: 07/30/2025 [facility] Work Phone: Comment on above: Expected: 03/29/2025 , Expires: 07/30/2025 Start: 03-18-2025 End: 03-18-2025 Patient encounter procedure 03/18/2025 10:10 AM EDT Routine [facility] [address] [place] [phone] Demarco Orr DO [address] [place], [place] [phone] [facility] Start: 02-22-2025 End: 02-22-2026 CBC panel - Blood by Automated count CBC Lab Routine Second trimester ([facility]) 25 weeks gestation of ([facility]) Diabetes mellitus screening Expected: 02/22/2025, Expires: 02/22/2026 [facility] Work Phone: Comment on above: Expected: 02/22/2025 , Expires: 02/22/2026 Start: 02-22-2025 End: 02-22-2026 Measurement of glucose 1 hour after glucose challenge for glucose tolerance test Glucose tolerance, 1 hour Lab Routine Second trimester ([facility]) 25 weeks gestation of ([facility]) Diabetes mellitus screening Expected: 02/22/2025, Expires: 02/22/2026 [facility] Comment on above: Expected: 02/22/2025 , Expires: 02/22/2026 Start: 02-22-2025 End: 02-22-2025 Patient encounter procedure [facility] Comment on above: Arrived Start: 01-30-2025 Hospital admission [facility] Start: 01-30-2025 End: 01-30-2025 [facility] Start: 01-30-2025 Duplex scan of lower limb veins US venous duplex LE BI [facility] Start: 01-30-2025 US Lower extremity v ein - bilateral [facility] Start: 01-25-2025 End: 02-25-2025 Alpha fetoprotein, maternal Alpha fetoprotein, maternal Lab Routine Second trimester 21 weeks gestation of Expected: 01/25/2025 (Approximate), Expires: 02/25/2025 [facility] Comment on above: Expected: 01/25/2025 (Approximate), Expires: 02/25/2025 Start: 01-25-2025 End: 04-27-2025 US for US OB 14+ weeks anatomy scan Imaging Routine Screening, , for anatomic survey Expected: 01/25/2025, Expires: 04/27/2025 [facility] Comment on above: Expected: 01/25/2025 , Expires: 04/27/2025 Start: 12-07-2024 End: 12-07-2024 Patient encounter procedure 12/07/2024 3:50 PM EDT Routine [facility] [address] [place] [address] Demarco Orr DO [address] [place] [address] [facility] Start: 12-03-2024 End: 12-03-2024 Patient encounter procedure 12/03/2024 10:10 AM EDT Routine [facility] [address] [place] [phone] Demarco Orr DO [address] [place], [place] [phone] [facility] Start: 11-09-2024 End: 11-09-2024 Patient encounter procedure 11/09/2024 1:20 PM EST Office Visit [facility] [address] [place] [phone] Cira Chairez PA [address] [place], [place] [phone] [facility] Start: 11-05-2024 End: 11-05-2025 ABO/Rh ABO/Rh Lab Routine Missed menses , unspecified gestational age Expected: 11/05/2024 (Approximate), Expires: 11/05/2025 [facility] Comment on above: Expected: 11/05/2024 (Approximate), Expires: 11/05/2025 Start: 11-05-2024 End: 11-05-2025 Blood type and Indirect antibody screen panel - Blood Type and screen Lab Routine Missed menses , unspecified gestational age Expected: 11/05/2024 (Approximate), Expires: 11/05/2025 [facility] Comment on above: Expected: 11/05/2024 (Approximate), Expires: 11/05/2025 Start: 11-05-2024 End: 11-05-2025 Drugs of abuse panel - Urine by Screen method Rapid drug screen, urine Lab Routine , unspecified gestational age Encounter for supervision of normal first in first trimester Expected: 11/05/2024 (Approximate), Expires: 11/05/2025 [facility] Comment on above: Expected: 11/05/2024 (Approximate), Expires: 11/05/2025 Start: 11-05-2024 End: 11-05-2025 US Pelvis transvaginal [facility] Work Phone: Comment on above: Expected: 11/05/2024 , Expires: 11/05/2025 Start: 05-10-2024 Influenza vaccination Influenza Vacc ine (#1) [facility] Start: 04-29-2024 End: 04-29-2024 Patient encounter procedure 04/29/2024 4:00 PM EDT Office Visit [facility] [address] [place] [address] Diego Araya DO [address] [place] [address] Arrived [facility] [address] Comment on above: Arrived Start: 04-29-2024 End: 04-29-2025 Cotton linters, untreated IgE Cotton linters, untreated IgE Lab Routine Allergic urticaria Expected: 04/29/2024 (Approximate), Expires: 04/29/2025 [facility] Comment on above: Expected: 04/29/2024 (Approximate), Expires: 04/29/2025 Start: 04-29-2024 End: 04-29-2025 Dog dander IgE Dog dander IgE Lab Routine Allergic urticaria Expected: 04/29/2024 (Approximate), Expires: 04/29/2025 [facility] Comment on above: Expected: 04/29/2024 (Approximate), Expires: 04/29/2025 Start: 04-29-2024 End: 04-29-2025 Food allergy profile Food allergy profile Lab Routine Allergic urticaria Expected: 04/29/2024 (Approximate), Expires: 04/29/2025 [facility] Work Phone: Comment on above: Expected: 04/29/2024 (Approximate), Expires: 04/29/2025 Start: 04-29-2024 End: 04-29-2025 Nfel D 2 cat serum albumin IgE Nfel D 2 cat serum albumin IgE Lab Routine Allergic urticaria Expected: 04/29/2024 (Approximate), Expires: 04/29/2025 [facility] Comment on above: Expected: 04/29/2024 (Approximate), Expires: 04/29/2025 Start: 10-13-2023 [facility] Start: 09-28-2023 Bacteria identified in Urine by Culture [facility] Start: 09-10-2023 [facility] Start: 06-03-2023 [facility] Start: 05-08-2023 Ova and Parasite Concentrate Exam Ova and Parasite Concentrate Exam [facility] Start: 12-29-2022 Bacteria identified in Urine by Culture [facility] aPTT in Platelet poo r plasma by Coagulation assay [facility] Bacteria identified in Urine by Culture Urine culture Microbiology Routine Missed menses Ordered: 11/05/2024 [facility] Comment on above: Ordered: 11/05/2024 Calprotectin [Mass/mass] in Stool [facility] CBC W Auto Different ial panel - Blood CBC and differential Lab Routine Missed menses , unspecified gestational age Ordered: 11/05/2024 [facility] Comment on above: Ordered: 11/05/2024 CBC W Auto Different ial panel - Blood CBC and differential Lab Routine Third trimester ([facility]) Ordered: 03/29/2025 [facility] Comment on above: Ordered: 03/29/2025 CHLAMYDIA TRACHOMATI S (GENITO/STI) CHLAMYDIA TRACHOMATIS (GENITO/STI) Lab Routine Vaginal discharge STD exposure Ordered: 01/25/2025 [facility] Comment on above: Ordered: 01/25/2025 CHLAMYDIA TRACHOMATI S (GENITO/STI) CHLAMYDIA TRACHOMATIS (GENITO/STI) Lab Routine Exposure to STD Ordered: 05/13/2025 [facility] Comment on above: Ordered: 05/13/2025 Cytology Cervical or vaginal smear or scraping study Pap Smear Pathology and Cytology Routine Well woman exam with routine gynecological exam Ordered: 01/25/2025 [facility] Work Phone: Comment on above: Ordered: 01/25/2025 Elastase.pancreatic [Mass/mass] in Stool [facility] Fibrin D-dimer [Presence] in Platelet poor plasma by Latex agglutination [facility] Hemoglobin A1c/Hemoglobin.total in Blood Hemoglobin A1c Lab Routine Missed menses , unspecified gestational age Ordered: 11/05/2024 [facility] Comment on above: Ordered: 11/05/2024 Hemoglobin A1c/Hemoglobin.total in Blood Hemoglobin A1c Lab Routine Third trimester ([facility]) Ordered: 03/29/2025 [facility] Comment on above: Ordered: 03/29/2025 Hepatitis B virus surface Ag [Presence] in Serum or Plasma by Immunoassay Hepatitis B surface antigen Lab Routine Missed menses , unspecified gestational age Ordered: 11/05/2024 [facility] Comment on above: Ordered: 11/05/2024 Hepatitis C virus Ab [Presence] in Serum or Plasma by Immunoassay Hepatitis C antibody Lab Routine Missed menses , unspecified gestational age Ordered: 11/05/2024 [facility] Comment on above: Ordered: 11/05/2024 HIV-1/HIV-2 antigen/antibody combination immunoassay HIV-1 and HIV-2 antibodies Lab Routine Missed menses , unspecified gestational age Ordered: 11/05/2024 [facility] Comment on above: Ordered: 11/05/2024 INR in Platelet poor plasma by Coagulation assay [facility] Neisseria gonorrhoea e DNA [Presence] in Unspecified specimen by OMAIRA with probe detection Neisseria gonorrhea DNA probe, direct Lab Routine Vaginal discharge STD exposure Ordered: 01/25/2025 [facility] Comment on above: Ordered: 01/25/2025 Neisseria gonorrhoea e DNA [Presence] in Unspecified specimen by OMAIRA with probe detection Neisseria gonorrhea DNA probe, direct Lab Routine Exposure to STD Ordered: 05/13/2025 [facility] Comment on above: Ordered: 05/13/2025 Ova and parasites identified in Unspecified specimen by Light microscopy [facility] Patient Education [facility] Work Phone: Patient referral [facility] Work Phone: Prothrombin time (PT) [facility] Reagin Ab [Presence] in Serum by RPR RPR Lab Routine Missed menses , unspecified gestational age Ordered: 11/05/2024 [facility] Comment on above: Ordered: 11/05/2024 Rubella antibody, IgG Rubella an tibody, IgG Lab Routine Missed menses , unspecified gestational age Ordered: 11/05/2024 [facility] Comment on above: Ordered: 11/05/2024 SURESWAB(R) ADVANCED VAGINITIS PLUS, TMA SURESWAB(R) ADVANCED VAGINITIS PLUS, TMA Pathology and Cytology Routine Vaginal discharge STD exposure Ordered: 01/25/2025 [facility] Comment on above: Ordered: 01/25/2025 SURESWAB(R) ADVANCED VAGINITIS PLUS, TMA SURESWAB(R) ADVANCED VAGINITIS PLUS, TMA Pathology and Cytology Routine Vaginal discharge Ordered: 05/13/2025 [facility] Comment on above: Ordered: 05/13/2025 Immunizations Immunization Date Immunization Notes Care Provider Reyes raygoza 06-02-2020 Human Papillomavirus 9-valent vaccine Diego Araya DO Work Phone: [facility] 06-02-2020 meningococcal oligosaccharide (groups A, C, Y and W-135) diphtheria toxoid conjugate vaccine (MCV4O) Diego Araya DO Work Phone: [facility] 06-02-2015 human papilloma viru s vaccine, quadrivalent Diego Araya DO Work Phone: [facility] 06-02-2015 influenza, seasonal, injectable Diego Araya DO Work Phone: [facility] 06-02-2015 meningococcal polysaccharide (groups A, C, Y and W-135) diphtheria toxoid conjugate vaccine (MCV4P) Diego Araya DO Work Phone: [facility] 06-02-2015 tetanus toxoid, redu ekaterina diphtheria toxoid, and acellular pertussis vaccine, adsorbed Diego Araya DO Work Phone: [facility] 06-02-2015 influenza virus vaccine, unspecified formulation Diego Araya DO Work Phone: [facility] 03-19-2007 hepatitis A vaccine, unspecified formulation Diego Araya DO Work Phone: [facility] 05-07-2006 diphtheria, tetanus toxoids and acellular pertussis vaccine, unspecified formulation Diego Araya DO Work Phone: [facility] 05-07-2006 hepatitis A vaccine, unspecified formulation Diego Araya DO Work Phone: [facility] 05-07-2006 measles, mumps and rubella virus vaccine Diego Araya DO Work Phone: [facility] 05-07-2006 pneumococcal conjuga te vaccine, 7 valent Diego Araya DO Work Phone: [facility] 05-07-2006 poliovirus vaccine, inactivated Diego Araya DO Work Phone: [facility] 05-07-2006 varicella virus vaccine Rhea Araya DO Work Phone: [facility] 07-12-2003 diphtheria, tetanus toxoids and acellular pertussis vaccine Diego Araya DO Work Phone: [facility] 07-12-2003 haemophilus influenz ae type b vaccine, PRP-T conjugate Diego Araya DO Work Phone: [facility] 07-12-2003 measles, mumps and rubella virus vaccine Diego Araya DO Work Phone: [facility] 07-12-2003 pneumococcal conjuga te vaccine, 7 valent Diego Araya DO Work Phone: [facility] 07-12-2003 varicella virus vaccine Rhea Araya DO Work Phone: [facility] 2002 diphtheria, tetanus toxoids and acellular pertussis vaccine, unspecified formulation Diego Araya DO Work Phone: [facility] 2002 haemophilus influenz ae type b conjugate and Hepatitis B vaccine Diego Araya DO Work Phone: [facility] 2002 poliovirus vaccine, inactivated Diego Araya DO Work Phone: [facility] 2002 diphtheria, tetanus toxoids and acellular pertussis vaccine, unspecified formulation Diego Araya DO Work Phone: [facility] 2002 haemophilus influenz ae type b vaccine, conjugate unspecified formulation Diego Araya DO Work Phone: [facility] 2002 pneumococcal conjuga te vaccine, 7 valent Diego Araya DO Work Phone: [facility] 2002 poliovirus vaccine, inactivated Diego Araya DO Work Phone: [facility] 2002 diphtheria, tetanus toxoids and acellular pertussis vaccine, unspecified formulation Diego Araya DO Work Phone: [facility] 2002 haemophilus influenz ae type b conjugate and Hepatitis B vaccine Diego Araya DO Work Phone: [facility] 2002 pneumococcal conjuga te vaccine, 7 valent Diego Araya DO Work Phone: [facility] 2002 poliovirus vaccine, inactivated Diego Araya DO Work Phone: [facility] 2002 hepatitis B vaccine, pediatric or pediatric/adolescent dosage Diego Araya DO Work Phone: [facility] NEGATED: Highlighted row has not occurred!11-06-2022 influenza virus vaccine, unspecified formulation Kayy Gudimella [facility] NEGATED: Highlighted row has not occurred!11-06-2022 SARS-CoV-2 mRNA (tozinameran 5y-11y) vaccine Kayy Gudimella [facility] Payers Date Payer Category Payer Self-pay [id number] 2023 Medicaid [employer] [id number] 2023-Present [address] [place] [address] [id number] 2022 Medicaid (Managed Care) 1.2. [id number] 2013 Unknown HCAP/HFA/FAP Active [id number] 2002 Unknown [id number] 2.16.840.1.681298.3.579.2.5 93 2002 Unknown [id number] 2.16.840.1.926128.3.579.2.5 93 2002 Unknown [id number] 2.16.840.1.754373.3.579.2.5 93 2002 Unknown [id number] 2.16.840.1.699229.3.579.2.5 93 2002 Unknown [id number] 2.16.840.1.685456.3.579.2.5 93 2002 Unknown [id number] 2.16.840.1.980882.3.579.2.5 93 2002 Unknown [id number] 2.16.840.1.140526.3.579.2.5 93 2002 Unknown [id number] 2.16.840.1.397185.3.579.2.5 93 2002 Unknown [id number] 2.16.840.1.218440.3.579.2.5 93 2002 Unknown [id number] 2.16.840.1.796641.3.579.2.5 93 2002 Unknown [id number] 2.16.840.1.953526.3.579.2.7 27 2002 Unknown [id number] 2.16.840.1.719409.3.579.2.1 259 2002 Unknown [id number] 2.16.840.1.442407.3.579.2.1 259 2002 Unknown [id number] 2.16.840.1.417725.3.579.2.1 259 2002 Unknown [id number] 2.16.840.1.439650.3.579.2.1 259 2002 Unknown [id number] 2.16.840.1.832441.3.579.2.1 259 2002 Unknown [id number] 2.16.840.1.158334.3.579.2.1 259 2002 Unknown [id number] 2.16.840.1.622926.3.579.2.1 259 2002 Unknown [id number] 2.16.840.1.073836.3.579.2.1 259 2002 Unknown [id number] 2.16.840.1.818183.3.579.2.1 259 2002 Unknown [id number] 2.16.840.1.568666.3.579.2.1 259 2002 Unknown [id number] 2.16.840.1.012032.3.579.2.1 259 2002 Unknown [id number] 2.16.840.1.376565.3.579.2.1 259 2002 Unknown [id number] 2.16.840.1.607541.3.579.2.1 259 1959 Unknown [id number] Unknown [id number] 2.16.840.1.454532.3.579.2.5 93 Unknown [id number] 2.16.840.1.741464.3.579.2.5 31 Unknown [id number] 2.16.840.1.613389.3.579.2.5 31 Unknown [id number] 2.16.840.1.032402.3.579.2.5 31 Unknown [id number] 2.16.840.1.631652.3.579.2.5 31 Unknown [id number] 2.16.840.1.233141.3.579.2.5 31 Unknown [id number] 2.16.840.1.907822.3.579.2.5 31 Unknown [id number] 2.16.840.1.027499.3.579.2.5 31 Unknown [id number] 2.16.840.1.823286.3.579.2.5 31 Social History Date Type Detail Facility Start: 11-06-2022 End: 04-07-2023 Tobacco smoking status Never smoked tobacco (finding) [facility] Tobacco smoking status Never [facility] Start: 04-29-2024 End: 03-01-2025 Sex Assigned At Female [facility] Start: 2002 Sex Assigned At Female [facility] Start: 09-10-2023 End: 01-30-2025 Tobacco smoking status NHIS Smoker (finding) [facility] Start: 04-07-2023 Tobacco use and exposure Smokeless tobacco non-user [facility] Start: 08-02-2024 End: 05-13-2025 Alcoholic beverage intake Lifetime non-drinker (finding) [facility] Start: 04-29-2024 End: 03-01-2025 History of Social function [facility] Work Phone: Start: 04-07-2023 Alcohol Comment caffeine: occasional [facility] Start: 2002 Sex assigned at Not on file [facility] Start: 09-21-2024 End: 01-30-2025 Sex Female (finding) [facility] Start: 09-14-2024 [facility] NEGATED: Highlighted row [facility] Goals Date Patient Goal Desired Activity /State Functional Status Date Assessment Result Facility 11-06-2022 Functional Status N/A [facility] Clinical Notes 11-06-2022 to 05-18-2025 Catherine Talley, [facility] - 05/18/2025 10:30 AM EDJeannette Everett, [facility] - 05/13/2025 9:30 AM KEVIN Harvey - 05/03/2025 2:50 PM Ulises Batista, [facility] - 04/22/2025 11:00 AM EDT Note Date & Type Note Facility 05-18-2025 History of Present illness Narrative Reason for [...] before breakfast, Do not crush or chew. Rzjudhte-Hdu-Ia-FA ( 1 + IRON PO) 1 tablet, [...] depression 12/20/2023 Marijuana abuse 04/28/2024 Second trimester ([facility]) 02/22/2025 25 weeks gestation of ([facility]) 02/22/2025 Resolved Ambulatory Problems Diagnosis Date Noted ADHD (attention deficit hyperactivity disorder) 12/20/2023 Past Medical History: Diagnosis Date Acid reflux Allergies Episodic tension type headache Fractured nose HISTORY PAST MEDICAL HISTORY SOCIAL HISTORY Past Medical History: Diagnosis Date Acid reflux ADHD (attention deficit hyperactivity disorder) 12/20/2023 Allergies Asthma ([facility]) Episodic tension type headache Fractured nose Social [...] nursing note reviewed. Exam conducted with a cad drafter present. Vitals: Estimated body mass index is 24.51 kg/m as calculated from the following: Height as of 04/29/24: 5' 2 . Weight as of this encounter: 134 lb. BP: 110/68 Patient's last menstrual period was 08/31/2024. ASSESSMENT & PLAN ICD-10-CM 1. Third trimester ([facility]) Z34.93 POCT urinalysis dipstick manually resulted 2. 37 weeks gestation of ([facility]) Z3A.37 Return OB: Patient presents today for a routine obstetrics appointment. Patient is currently 37w1d . Patient states she is doing well but has complaints of being tired due to current . Patient has verbalizes frequent movement. labor precautions was discussed/given and patient was instructed to perform kick counts three times a day. Pt having contractions today being sent to [facility] for monitoring, Orders Placed This Encounter Procedures POCT urinalysis dipstick manually resulted Follow Up: Patient is to return to office in 1 week for routine OB appointment. Documented by Catherine Talley LPN on behalf of: Cira Chairez PA-C documented in this encounter [facility] 05-13-2025 History of Present illness Narrative Reason [...] before breakfast, Do not crush or chew. Pvqlgdty-Hxo-Fl-FA ( 1 + IRON PO) 1 tablet, [...] depression 12/20/2023 Marijuana abuse 04/28/2024 Second trimester ([facility]) 02/22/2025 25 weeks gestation of ([facility]) 02/22/2025 Resolved Ambulatory Problems Diagnosis [...] nursing note reviewed. Exam conducted with a cad drafter present. Vitals: Estimated body mass index is 24.14 kg/m as calculated from the following: Height as of 04/29/24: 5' 2 . Weight as of this encounter: 132 lb. BP: 110/70 Patient's last menstrual period was 08/31/2024. ASSESSMENT & PLAN ICD-10-CM 1. 36 weeks gestation of ([facility]) Z3A.36 POCT urinalysis dipstick manually resulted 2. Third trimester ([facility]) Z34.93 POCT urinalysis dipstick manually resulted CULTURE, GROUP B STREP WITH SUSCEPTIBLITY CULTURE, GROUP B STREP WITH SUSCEPTIBLITY 3. Gastroesophageal reflux in ([facility]) O99.619 K21.9 4. Exposure to [...] Demarco Orr DO documented in this encounter [facility] 05-03-2025 History of Present illness Narrative Reason [...] before breakfast, Do not crush or chew. Bjarjwie-Ami-Mu-FA ( 1 + IRON PO) 1 tablet, [...] depression 12/20/2023 Marijuana abuse 04/28/2024 Second trimester ([facility]) 02/22/2025 25 weeks gestation of ([facility]) 02/22/2025 Resolved Ambulatory Problems Diagnosis Date Noted ADHD (attention deficit hyperactivity disorder) 12/20/2023 Past Medical History: Diagnosis Date Acid reflux Allergies Episodic tension type headache Fractured nose HISTORY PAST MEDICAL HISTORY SOCIAL HISTORY Past Medical History: Diagnosis Date Acid reflux ADHD (attention deficit hyperactivity disorder) 12/20/2023 Allergies Asthma ([facility]) Episodic tension type headache Fractured nose Social [...] ASSESSMENT & PLAN ICD-10-CM 1. Third trimester ([facility]) Z34.93 POCT urinalysis dipstick manually resulted 2. 35 weeks gestation of ([facility]) Z3A.35 POCT urinalysis dipstick manually resulted Return OB: Patient presents today for a routine obstetrics appointment. Patient is currently 35w0d . Patient states she is doing well but has complaints of being tired due to current . Patient has verbalizes frequent movement. labor precautions was discussed/given and patient was instructed to perform kick counts three times a day. Pt seen at [facility] for contractions. Pt given fluids and stopped lindsey. Pt here for follow up. We will see her in one week for GBS Orders Placed This Encounter Procedures POCT urinalysis dipstick manually resulted Follow Up: Patient is to return to office in 1 week for routine OB appointment. Documented by KEVIN Guevara on behalf of: KEVIN Guevara documented in this encounter [facility] 04-22-2025 History of Present illness Narrative Reason [...] before breakfast, Do not crush or chew. Fsxdjtas-Ebh-Cq-FA ( 1 + IRON PO) 1 tablet, Daily ALLERGIES Allergies Allergen Reactions Tilactase Diarrhea Amoxicillin Unknown PROBLEMS Active Ambulatory Problems Diagnosis Date Noted Anxiety 04/09/2023 Asthma (HCC) 04/09/2023 Gastroesophageal reflux disease without esophagitis 04/09/2023 Left wrist pain 04/09/2023 Multiple joint pain 04/09/2023 PTSD (post-traumatic stress disorder) 12/20/2023 depression 12/20/2023 Marijuana abuse 04/28/2024 Second trimester ([facility]) 02/22/2025 25 weeks gestation of ([facility]) 02/22/2025 Resolved Ambulatory Problems Diagnosis Date Noted ADHD (attention deficit hyperactivity disorder) 12/20/2023 Past Medical History: Diagnosis Date Acid reflux Allergies Episodic tension type headache Fractured nose HISTORY PAST MEDICAL HISTORY SOCIAL HISTORY Past Medical History: Diagnosis Date Acid reflux ADHD (attention deficit hyperactivity disorder) 12/20/2023 Allergies Asthma ([facility]) Episodic tension type headache Fractured nose Social [...] nursing note reviewed. Exam conducted with a cad drafter present. Vitals: Estimated body mass index is 23.5 kg/m as calculated from the following: Height as of 04/29/24: 5' 2 . Weight as of this encounter: 128 lb 8 oz. BP: 102/70 Patient's last menstrual period was 08/31/2024. ASSESSMENT & PLAN ICD-10-CM 1. Third trimester ([facility]) Z34.93 POCT urinalysis dipstick manually resulted 2. 33 weeks gestation of ([facility]) Z3A.33 Patient presents today for a routine obstetrics appointment. Patient is currently 33w3d with a Estimated Date of Delivery: 06/07/25. Patient was considering tubal ligation, but patient and spouse are not sure if they have s completed child-bearing. Discussed usp management with Mirena IUD & patient will consider Mirena. Patient to return to clinic in 2-3 weeks. Documented by Jennifer Batista LPN on behalf of: Demarco Orr DO documented in this encounter [facility] 03-29-2025 History of Present illness Narrative Reason [...] before breakfast, Do not crush or chew. Pinhkclr-Pdx-Ue-FA ( 1 + IRON PO) 1 tablet, Daily ALLERGIES Allergies Allergen Reactions Tilactase Diarrhea Amoxicillin Unknown PROBLEMS Active Ambulatory Problems Diagnosis Date Noted Anxiety 04/09/2023 Asthma (HCC) 04/09/2023 Gastroesophageal reflux disease without esophagitis 04/09/2023 Left wrist pain 04/09/2023 Multiple joint pain 04/09/2023 PTSD (post-traumatic stress disorder) 12/20/2023 depression 12/20/2023 Marijuana abuse 04/28/2024 Second trimester ([facility]) 02/22/2025 25 weeks gestation of ([facility]) 02/22/2025 Resolved Ambulatory Problems Diagnosis [...] ASSESSMENT & PLAN ICD-10-CM 1. Third trimester ([facility]) Z34.93 POCT urinalysis dipstick manually resulted 2. 30 weeks gestation of ([facility]) Z3A.30 Return OB: Patient presents today for [...] routine OB appointment. documented in this encounter [facility] 02-22-2025 History of Present illness Narrative Reason for Appointment: Patient ID: Dawn Major is a 24 y.o. female who presents for No chief complaint on file. Patient presents today for Return OB appointment. MEDICATIONS Current Outpatient Medications Medication Instructions albuterol HFA 90 mcg/act inhaler 2 puffs, Inhalation, Every 4 hours PRN Pmhpbmlu-Gps-Cq-FA ( 1 + IRON PO) 1 tablet, Daily ALLERGIES Allergies Allergen Reactions Tilactase Diarrhea Amoxicillin Unknown Milk (Cow) Unknown PROBLEMS Active Ambulatory Problems Diagnosis Date Noted Anxiety 04/09/2023 Asthma (HCC) 04/09/2023 Gastroesophageal reflux disease without esophagitis 04/09/2023 Left wrist pain 04/09/2023 Multiple joint pain 04/09/2023 PTSD (post-traumatic stress disorder) 12/20/2023 depression 12/20/2023 Marijuana abuse 04/28/2024 Second trimester ([facility]) 02/22/2025 25 weeks gestation of ([facility]) 02/22/2025 Resolved Ambulatory Problems Diagnosis [...] nursing note reviewed. Exam conducted with a cad drafter present. Vitals: Estimated body mass index is 20.58 kg/m as calculated from the following: Height as of 04/29/24: 5' 2 . Weight as of 01/25/25: 112 lb 8 oz. BP: Patient's last menstrual period was 08/31/2024. ASSESSMENT & PLAN ICD-10-CM 1. Second trimester ([facility]) Z34.92 POCT urinalysis dipstick manually resulted CBC Glucose tolerance, 1 hour CBC Glucose tolerance, 1 hour 2. 25 weeks gestation of ([facility]) Z3A.25 POCT urinalysis dipstick manually resulted CBC [...] routine OB appointment. documented in this encounter [facility] 01-30-2025 Radiology Diagnostic study note [facility] Main [place] [address] [place] [address] Ultrasound Report Signed Patient: Dawn Major MR#: [id number] : 2000 Acct:[id number] Age/Sex: 24 / F ADM Date: 5 Loc: ER Room: Type: [facility] ER Attending Dr: Ordering Provider: Vipin [...] Gonzales M.D. 02/02/2025 12:17 PM Dictation Location: [place] [address] Tech: Alice Ricky Transcribed By: SHERINE 02/02/25 1217 Dictated By: Arvin Gonzales MD 02/02/25 1216 Signed By: 02/02/25 1217 [facility] Work Phone: 01-25-2025 History of Present illness Narrative Reason for Appointment: Patient ID: Dawn Major is a 24 y.o. female who presents for Routine Visit Patient presents today for Return OB appointment. MEDICATIONS Current Outpatient Medications Medication Instructions albuterol HFA 90 mcg/act inhaler 2 puffs, Inhalation, Every 4 hours PRN Jawaqyij-Nsd-Jq-FA ( 1 + IRON PO) 1 tablet, Daily ALLERGIES Allergies Allergen Reactions Tilactase Diarrhea Amoxicillin Unknown Milk (Cow) Unknown PROBLEMS Active Ambulatory Problems Diagnosis Date Noted Anxiety 04/09/2023 Asthma 04/09/2023 Gastroesophageal reflux disease without esophagitis 04/09/2023 Left wrist pain 04/09/2023 Multiple joint pain 04/09/2023 PTSD (post-traumatic stress disorder) ([facility] 12/20/2023 depression ([facility]) 12/20/2023 Marijuana abuse 04/28/2024 Resolved Ambulatory Problems Diagnosis Date Noted ADHD (attention deficit hyperactivity disorder) ([facility]) 12/20/2023 Past Medical History: Diagnosis Date Acid reflux Allergies Episodic tension type headache Fractured nose HISTORY PAST MEDICAL HISTORY SOCIAL HISTORY Past Medical History: Diagnosis Date Acid reflux ADHD (attention deficit hyperactivity disorder) ([facility]) 12/20/2023 Allergies Asthma Episodic tension type headache [...] nursing note reviewed. Exam conducted with a cad drafter present. Vitals: Estimated body mass index is [...] Susan Troy NP documented in this encounter [facility] 12-07-2024 History of Present illness Narrative Reason [...] joint pain 04/09/2023 PTSD (post-traumatic stress disorder) ([facility]) 12/20/2023 depression ([facility]) 12/20/2023 Marijuana abuse 04/28/2024 Resolved Ambulatory Problems Diagnosis Date Noted ADHD (attention deficit hyperactivity disorder) ([facility]) 12/20/2023 Past Medical History: Diagnosis Date Acid reflux Allergies Episodic tension type headache Fractured nose HISTORY PAST MEDICAL HISTORY SOCIAL HISTORY Past Medical History: Diagnosis Date Acid reflux ADHD (attention deficit hyperactivity disorder) ([facility]) 12/20/2023 Allergies Asthma Episodic tension type headache [...] nursing note reviewed. Exam conducted with a cad drafter present. Vitals: Estimated body mass index is [...] and [facility] away [facility]. Patient has been consulted regarding any further do's and don'ts of . Patient voiced understanding and all questions and concerns were answered. Follow Up: Patient is to return in 4 weeks for routine OB appointment. Documented by Jennifer Batista LPN on behalf of: Demarco Orr DO documented in this encounter [facility] 11-05-2024 History of Present illness Narrative Reason [...] Problems Diagnosis Date Noted Anxiety 04/09/2023 Asthma ([facility]) 04/09/2023 Gastroesophageal reflux disease without esophagitis 04/09/2023 Left wrist pain 04/09/2023 Multiple joint pain 04/09/2023 PTSD (post-traumatic stress disorder) ([facility]) 12/20/2023 depression ([facility]) 12/20/2023 Marijuana abuse 04/28/2024 Resolved Ambulatory Problems Diagnosis Date Noted ADHD (attention deficit hyperactivity disorder) ([facility]) 12/20/2023 Past Medical History: Diagnosis Date Acid [...] and stay away from [facility]. Patient has also been advised to not change litter boxes and eat 6 small meals a day. Patient has been consulted regarding the do's and don'ts of . Patient was given labs and all questions and concerns were answered. Patient was given [place] labs to have completed and to schedule [...] Cee Everett LPN documented in this encounter [facility] 08-25-2024 History of Present illness Narrative Images from the original note were not included. [address] , [address] [facility], [address] P: [phone] F: [phone] HPI Historian of HPI: patient Dawn Major [...] call with results when available. Follow-up with SERVER SOFTWARE ENGINEER - hCG, quantitative, documented in this encounter [facility] 08-02-2024 History of Present illness Narrative Images from the original note were not included. [address] , [address] [facility], [address] P: [phone] F: [phone] HPI Historian of HPI: patient Dawn Major [...] Final PERFORMING LAB: 07/24/2022 see note Final [facility] - [address] [place] [address] ,Ext. [phone] ASSESSMENT & PLAN: Assessment & Plan Viral URI with cough Symptoms and time course consistent with viral URI. Reviewed hecg-ykq-wauumux symptomatic treatments, including NSAIDs/acetaminophen for fever and myalgias, decongestants, nasal sprays and ample hydration. Advised patient return to clinic if symptoms suddenly worsen or do not improve after 7-10 days of symptoms. Provided reassurance. Carlos Zaragoza MD, IBCLC [facility] Urgent Care documented in this encounter [facility] 04-29-2024 History of Present illness Narrative Images from the original note were not included. SUBJECTIVE: Dawn Major is a 24 y.o. female presents with chief complaint of No chief complaint on file. Pt presents to discuss an increase in her anxiety, possibility of undiagnosed bipolar, would like a referral to an draw string knotter to test to see if she might be allergic to some types of foods, and to do a follow up for her ER visit on 04-17-24. This was due to stomach issues with the possibility of either a stomach bug or the flu. Review of Systems: Review of Systems Problem List: Patient Active Problem List Diagnosis Anxiety Asthma ([facility]) Gastroesophageal reflux disease without esophagitis Left wrist pain Multiple joint pain PTSD (post-traumatic stress disorder) ([facility]) depression ([facility]) Marijuana abuse Past Medical History: Past Medical History: Diagnosis Date Acid reflux ADHD (attention deficit hyperactivity disorder) ([facility]) 12/20/2023 Allergies Asthma ([facility]) Episodic tension type headache Fractured nose Family [...] for this visit: PTSD (post-traumatic stress disorder) ([facility]/H[facility]) Patient advised to return if symptoms worsen [...] Mild intermittent asthma, unspecified whether complicated ([facility]) Problem is stable, will continue with current [...] tablet, Rfl: 0 documented in this encounter [facility] 09-28-2023 Hospital Discharge instructions Additional Instructions Use albuterol inhaler 2 puffs every 4-6 hours if needed for wheezing or shortness of breath Zofran for nausea vomiting Push fluids Rest Good handwashing Steroids as directed Take antibiotics as instructed until gone Return here if you have any shortness of breath, chest pain, vomiting unable to keep anything down, or any other concerns [facility] Work Phone: 09-10-2023 Procedure note [facility] 07-11-2023 Evaluation note Encounter Date Diagnosis Assessment Notes Jul, Diarrhea (ICD-10 - R19.7) Jul, Weight loss (ICD-10 - R63.4) [employer] Other 09-25-2023 History and physical note Author Jordi Seals [facility] June 03, 2023 9:43am Note Date/Time June 03, 2023 9:43am [facility] [address] [place] [address] Gastroenterology H&P Signed Patient: Dawn Major MR#: [id number] : 2000 Acct:[id number] Age/Sex: 23 / F Adm Date: 3 Loc: Room: Type: [facility] Attending Dr: Jordi Seals MD [...] <Electronically signed by Jordi Seals MD> 06/03/23942 [facility] Work Phone: [phone]) 492-944709-25-2023 [facility]* Encounter Date Diagnosis Assessment Notes Treatment Notes Treatment Clinical Notes Apr, Diarrhea (ICD-10 - R19.7) Patient was seen in the ER and was advise by ER to see quarryman Patient will have labs done ordered today Apr, Unintentional weight loss (ICD-10 - R63.4) Patient is to have a colonoscopy that it will be scheduled today prep instructions given in office today Risks and benefits of procedure explained to patient; patient verbalizes understanding. [employer] Other 02-28-2023 Hospital Discharge instructions Follow Up Care 11/06/2022 13:26:54 With:Kayy Fontana MD, [facility], MED Address: [address] [place] [phone] When: only if needed [facility] Evaluation + Plan [facility] Evaluation noteNo assessment information available [facility] Work Phone: Evaluation note* Diagnosis Viral URI with cough- Primary [facility] Diagnosis PTSD (post-traumatic stress disorder) ([facility])- Primary Posttraumatic stress disorder Bipolar 1 disorder ([facility]) Allergic urticaria Marijuana abuse Nondependent cannabis abuse, unspecified Abdominal discomfort Abdominal pain, unspecified site Mild intermittent asthma, unspecified whether complicated ([facility]) [facility] [...] as infective documented [facility]* Diagnosis Third trimester ([facility]) state, incidental 37 weeks gestation of ([facility]) documented [facility] Author Jordi Seals [facility] September 10, 2023 9:00am Note Date/Time September 10, 2023 9: 00am [facility] [address] [place] [address] Gastroenterology H&P Signed Patient: Dawn Major MR#: [id number] : 2000 Acct:[id number] Age/Sex: 23 / F Adm Date: 4 Loc: Room: Type: [facility] Attending Dr: Jordi Seals MD [...] signed by Jordi Seals MD> 09/10/23 0900 [facility] Work Phone: History general Narrative - Reported* Type Description Date Medical History hx of acid reflux Medical History lactose intolerance Surgical History FINGER SURGERY Hospitalization History 2.5 weeks old for milk a llergy [employer] Other Hospital course Narrative No data available for this section [facility] Hospital Discharge instructions Additional Instructions [...] 45 -Follow up with PCP. -Office number [phone]. [facility] Work Phone: [...] in the office as scheduled -Office number [phone]. [facility] Work Phone: Hospital Discharge instructions Additional Instructions Follow-up with mental health Return to ED if develop worsening symptoms or [facility] Work Phone: Hospital Discharge instructions Additional Instructions Will go to the OB floor for further evaluation and monitoring.[facility] Work Phone: Progress note No data available for this section [facility] Reason for referral (narrative) , [facility] please Referred by: Kayy Fontana MD [facility] Summary Purpose Family History [...] Complaint Abd pain Chief Complaint Abd pain [facility] Chief Complaint Admit Date [facility] June 29, 2024 1 0:34am BH June 29, 2024 3 :39pm lightheaded, nausea September 03, 2024 6:13pm right shoulder pain/injury September 21, 2024 8:31pm Chief Complaint Admit Date chest pain January 30, 2025 8:15a m Unknown January 30, 2025 10:52 am Additional Source Comments INFORMATION SOURCE (unrecogn ized section and content) DATE CREATED AUTHOR 08/07/2022 [facility] DATE CREATED AUTHOR AUTHOR'S ORGANIZ ATION 11/15/2022 [facility] DATE CREATED AUTHOR AUTHOR'S ORGANIZ ATION 03/27/2025 [facility] DATE CREATED AUTHOR AUTHOR'S ORGANIZ ATION 05/20/2025 [facility] Special[facility] EP[employer] Care Teams (unrecognized sec tion and content) Transportation Consultant Relationship Specialty Start Date End Date Diego Araya DO [address] [place] [address] PCP - General Family Medicine 04/09/23 Diego Araya DO [address] [place] [address] PCP - [facility] 06/09/24 Team Status: Active Member Role [...] BE BASED ON THE PRIMARY CLINICAL RECORDS. [facility] [employer] provides no warranty or guarantee of the accuracy or completeness of information in this document.
--- OUTSIDE RECORDS SUMMARY | 2025-06-01 04:59 | XMS_ITS | Continuity of Care Document ---
Author Organization [facility] Address [address] [place] [address] Phone [phone] Care Team Providers Care Toy Assembler Wood Name Role Phone Kayy Fontana MD Care Team Information Casiei eunice Unavailable SYED KAMARA MD Care Team Information Rece iver Unavailable Kayy Fontana MD Primary Care Physician Unav ailable Allergies and adverse reactions Active Allergies Criticality Reaction Severity Comments Date Amoxicillin Unable to assess criticality Weal (disorder) 11/15/2022
[2025-06-01] MEDS: 0.9 % SODIUM CHLORIDE 1,000 ML 125 ML IV (05:35)
[2025-06-01 05:46] LABS: Hematocrit 32.2 % (36.0-48.0); Hemoglobin 10.6 g/dL (12.0-16.0); Mean Corpuscular HGB Conc 32.9 g/dL (29.9-35.2); Mean Corpuscular Hemoglobin 27.5 pg (26.7-34.0); Mean Corpuscular Volume 83.4 fL (81.0-99.0); Platelet Count 277 10^3/uL (150-450); Red Blood Count 3.86 10^6/uL (4.20-5.40); White Blood Count 13.7 10^3/uL (4.0-11.0)
[2025-06-01 05:57] LABS: Cannabinoid Screen Urine POSITIVE (NEGATIVE); Methamphetamines Screen Urine NEGATIVE (NEGATIVE); Tricyclic Antidepressant Urine NEGATIVE (NEGATIVE)
[2025-06-01] MEDS: OXYTOCIN/0.9 % SODIUM CHLORIDE 10 UNITS/500 ML PLAST..BAG 6 UNIT IV (06:20)
[2025-06-01] MEDS: VANCOMYCIN HCL 1,000 MG in 0.9 % SODIUM CHLORIDE 250 ML 250 MG IV (06:29)
[2025-06-01] MEDS: ROPIVACAINE HCL/PF 400 MG/200 ML PREMIX 6 MG EPIDURAL (08:11)
[2025-06-01] MEDS: OXYTOCIN/0.9 % SODIUM CHLORIDE 20 UNITS/1,000 ML PLAST..BAG 125 UNIT IV (09:08)
--- NOTE | 2025-06-01 09:49 | PM.OBPRCVD ---
Procedure Intrapartal events: None Induction method: per pitocin protocol Delivery augmentation: pitocin Delivery monitor: external FHT and external uterine Route of delivery: Episiotomy Description: midline L&D Laceration Description: perineal - 2nd degree Delivery repair: Vicryl Estimated blood loss (mL): 250 Anesthesia type: Epidural Disposition: floor Delivery date: 06/01/25 Gender: female presentation: vertex Placental delivery description: Spontaneous cord description: 3 Vessels and Nuchal Cord Stage 1 Duration Labor - Stage 1 Duration: 2 hours and 58 minutes Labor State Duration Labor - Stage 2 Duration: 6 minutes Labor - Stage 3 Duration: 4 minutes Total Length of Labor: 3 hours and 8 minutes
[2025-06-01] MEDS: BENZOCAINE/MENTHOL 85 GRAM SPRAY BOTTLE 1 APPLIC TOPICAL (11:32)
[2025-06-01] MEDS: GLYCERIN/WITCH HAZEL PADS 1 PAD TOPICAL (11:32)
[2025-06-01] MEDS: IBUPROFEN 600 MG TABLET PO ×2 (11:32→22:05)
[2025-06-01] MEDS: ACETAMINOPHEN 325 MG TABLET 650 MG PO (23:35)
[2025-06-02] MEDS: IBUPROFEN 600 MG TABLET PO ×2 (04:13→17:02)
[2025-06-02 07:10] LABS: Hematocrit 32.8 % (36.0-48.0); Hemoglobin 10.6 g/dL (12.0-16.0); Immature Granulocytes Abs Auto 0.11 10^3/uL (0.00-0.03); Immature Granulocytes Pct Auto 0.8 % (0.0-0.5); Lymphocytes Absolute Auto 2.5 10^3/uL (1.2-3.8); Mean Corpuscular HGB Conc 32.3 g/dL (29.9-35.2); Mean Corpuscular Hemoglobin 27.6 pg (26.7-34.0); Mean Corpuscular Volume 85.4 fL (81.0-99.0); Platelet Count 261 10^3/uL (150-450); Red Blood Count 3.84 10^6/uL (4.20-5.40); White Blood Count 13.4 10^3/uL (4.0-11.0)
--- NOTE | 2025-06-02 08:54 | P.OBPN_ITS ---
OB - PN: Subj Subjective Patient comments: no complaints [place] status: doing well feeding status: exclusively Exam Constitutional Vital Signs, click to edit/add: Last Vital Signs Temp 97.8 F 06/01/25 23:35 Pulse 60 06/01/25 23:32 Resp 14 06/01/25 23:35 BP 108/65 06/01/25 23:32 O2 Del Method Room Air 06/01/25 23:35 Documenting provider has reviewed patient's vital signs: yes Common normals: no apparent distress Exam limitations: altered mental status General appearance: cooperative Nutritional appearance: obese Orientation/consciousness: Yes awake, Yes oriented to person, Yes oriented to place and Yes oriented to time HENMT Common normals: normocephalic Eye Common normals: EOMs intact bilaterally General eye: normal appearance of both eyes Neck & C-Spine Common normals: full ROM and no lymphadenopathy Lymph Lymphatic: no lymphadenopathy noted Chest Common normals: inspection of chest normal Respiratory Common normals: normal respiratory effort and no retractions Effort & inspection: able to speak in complete sentences Auscultation: clear to auscultation bilaterally Cardio Common normals: regular rate and regular rhythm Palpation: normal PMI Rate: regular rate Rhythm: regular rhythm GI Common normals: Normal to inspection, nondistended, normoactive bowel sounds present Inspection: normal to inspection Auscultation: normoactive bowel sounds Palpation: soft Percussion: normal to percussion Common normals: no CVA tenderness Back & Pelvis Common normals: no CVA tenderness Thoracic spine/upper back: normal to inspection Extremity Common normals: normal to inspection General: normal exam except as noted Neuro Common normals: oriented x3 Sensorium/orientation: awake, alert, oriented to person, oriented to place and oriented to time Speech: speech normal Psych Common normals: mental status grossly normal, thought process normal, cooperative, affect normal, speech normal, activity/motor behavior normal, denies hallucinations, denies homicidal ideation and denies suicidal ideation Appearance: grossly normal Attitude: calm Results Labs Labs: Short CBC 06/02/25 Range/Units 06:44 WBC 13.4 H (4.0-11.0) 10^3/uL Hgb 10.6 L (12.0-16.0) g/dL Hct 32.8 L (36.0-48.0) % Plt Count 261 (150-450) 10^3/uL OB - PN: A/P Plan - Vaginal Delivery day: 1 Plan: routine care Time Spent with Patient Time: Total time spent is greater than 50% in coordination of care (as documented) at patient's floor/unit and/or counseling patient: Total time spent with greater than 50% in coordination of care (as documented) at patient's floor/unit and/or counseling patient: less than 15 minutes
[2025-06-02] MEDS: DOCUSATE SODIUM 100 MG CAPSULE PO ×2 (09:30→20:04)
[2025-06-02 09:32] VITALS: BP 108/61; PULSE 77
[2025-06-02 09:35] VITALS: TEMP 36.6
[2025-06-02 16:55] VITALS: TEMP 36.6
[2025-06-02 16:56] VITALS: BP 125/77; PULSE 64
[2025-06-02] MEDS: ACETAMINOPHEN 325 MG TABLET 650 MG PO (20:04)
[2025-06-02 23:06] VITALS: BP 91/52; PULSE 67; TEMP 36.6
[2025-06-03] MEDS: IBUPROFEN 600 MG TABLET PO (06:10)
[2025-06-03 08:03] VITALS: BP 107/67; PULSE 66
--- NOTE | 2025-06-03 08:04 | PM.OBPN ---
OB - PN: Subj Subjective Patient comments: no complaints and pain well controlled [place] status: doing well Exam Constitutional Vital Signs, click to edit/add: Last Vital Signs Temp 97.9 F 06/02/25 23:06 Pulse 66 06/03/25 08:03 Resp 15 06/02/25 23:06 BP 107/67 06/03/25 08:03 O2 Del Method Room Air 06/02/25 23:05 Documenting provider has reviewed patient's vital signs: yes Common normals: no apparent distress Respiratory Common normals: normal respiratory effort and clear to auscultation bilaterally Cardio Common normals: regular rate and regular rhythm GI Common normals: Normal to inspection, nondistended, normoactive bowel sounds present Extremity Common normals: no clubbing, cyanosis or edema and no calf tenderness OB - PN: A/P Plan - Vaginal Delivery day: 2 Plan: routine care, discharge home and follow up 6 weeks Time Spent with Patient Time: Total time spent is greater than 50% in coordination of care (as documented) at patient's floor/unit and/or counseling patient: Total time spent with greater than 50% in coordination of care (as documented) at patient's floor/unit and/or counseling patient: less than 15 minutes
[2025-06-03 08:05] VITALS: BP 107/67; PULSE 66; TEMP 36.7
[2025-06-03] MEDS: DOCUSATE SODIUM 100 MG CAPSULE PO (08:06)
--- NOTE | 2025-06-03 12:04 | SWNOTE1 ---
SW consulted due to positive THC drug screen. SW stopped back to see pt, but she was discharged this morning. SW called pt and spoke with pt over the phone. Pt does have everything she needs at home for baby. She does have WIC service as well. She has 2 other children at home and they are both boys, this is there first girl. Father of baby is involved and in the home as well. Pt did go through post depression with her other children. She is aware of signs and symptoms. She voiced she has very good support as well that will help her if needed. She did reach out to her physician and did get put on medication in past for this. She voiced she will reach out to physician if needed. SW and pt spoke about the positive Marijuana drug screen. She stated she used oils throughout to help with pain and nausea. She does not plan on continuing use once she is home. Pt does not have a medical marijuana card. SW did advise pt that SW is mandated reported and has to call [facility] and make a report. She voiced understanding. Pt has no further questions at this time. Referral made to [facility]. HIPAA form completed and sent to
[2025-06-05 00:07] LABS: Carboxy THC Conf, MS, UR 451 ng/mL (Cutoff=10)
== END 2025-06-03 10:55 | disposition home or self-care (01) | DRG 560 ==
PROVIDERS: Admitting Provider Obstetrics & Gynecology; PCP Family Medicine; Visit Provider Obstetrics & Gynecology
DX: O69.81X0 Labor and delivery complicated by cord around neck, without compression, not applicable or unspecified (principal); O70.1 Second degree perineal laceration during delivery; O99.824 Streptococcus B carrier state complicating childbirth; O99.324 Drug use complicating childbirth; F12.90 Cannabis use, unspecified, uncomplicated; Z3A.39 39 weeks gestation of pregnancy; Z37.0 Single live birth
CPT/HCPCS: 36415; 59050; 59410; 80307; 80349; 85025; 85027; 86850; 86900; 86901; J2795; J3373